=== PATIENT | male | born 1945 | race Caucasian/White ===

== ENCOUNTER 2016-07-18 01:15 | Inpatient (IN) | payer OTHER ==
[~2016-07-18] VITALS: Ht 175.3 cm; Wt 88.6 kg
[2016-07-18] VITALS (10 sets, daily range): BP systolic 89–123; BP diastolic 46–68; PULSE 70–85; TEMP 36.8–37.1; O2SAT 94–98; Ht 175.3 cm; Wt 88.6 kg
[~2016-07-18 01:15] MED LIST: ALBU1AER9 INH; FLR/1 PEG; FLUT1AER5 INH; IPRASOL4 INH; LEVO100T PEG; NUTR-25 PEG; SERT50TA PEG; WATER PEG
--- NOTE | 2016-07-18 01:39 | EMERGENCY ROOM VISIT NOTE ---
History Report prepared by Rubén: Alex Strong Under the Supervision of: Dr. Gabriella Weaver D.O. First contact with patient: 01:24 Chief Complaint: RESPIRATORY PROBLEMS Stated Complaint: CHILLS,ASTHMA History of Present Illness The patient is a 71 year old male who presents to the Emergency Room with complaints of worsening shortness of breath for the past week. The patient also has a worsening cough. The patient has also had chills and nausea all evening. The patient just finished a 10 day course of Bactrim BID and Prednisone yesterday. He was being treated for pneumonia and sepsis. The patient used his inhaler today which did not resolve his breathing difficulties. The patient is NPO and has a peg tube secondary to a history of tonsillar cancer. 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 The patient has sores in his mouth for which he uses magic swizzle. The patient also rinsed his mouth with half a shot of kimberlee to clear up mucous. He does not swallow the kimberlee. Source of History: patient, other (curriculum development specialist) Onset: one week Position: other (respiratory ) Quality: other (shortness of breath) Timing: worsening Associated Symptoms: + chills, + cough, + nausea Review of Systems See HPI for pertinent positives & negatives. A total of 10 systems reviewed and were otherwise negative. 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 Surgical Problems: (1) H/O esophagogastroduodenoscopy (2) S/P arthroscopic knee surgery (3) S/P colonoscopy (4) s/p modified radical neck dissection Family History Cancer Diabetes mellitus Heart disease Hypertension Lung disease Social History Smoking Status: Former Smoker Alcohol Use: none Drug Use: none Marital Status: Housing Status: lives with significant other Occupation Status: disabled Current/Historical Medications Scheduled Enteral Nutrition Formula (Boost Plus), 2 CAN PEG QID Fludrocortisone Acetate (Florinef), 0.1-0.2 MG PEG DAILY Levothyroxine Sodium (Synthroid), 100 MCG PEG QAM Sertraline (Zoloft), 50 MG PEG QAM [Water], 200 ML PEG QID Scheduled PRN Albuterol (Proair Hfa), 2 PUFFS INH Q4H PRN for Wheezing Fluticasone Propionate (Inhala (Flovent Diskus), 1 PUFFS INH BID PRN for SOB/ Wheezing Ipratropium-Albuterol (Duoneb), 1 TREATMENT INH QID PRN for SOB/Wheezing Allergies Coded Allergies: Nitrates, Organic (Verified Allergy, Unknown, DROP IN BP, 07/18/16) Terazosin (Verified Allergy, Unknown, 07/18/16) Physical Exam Vital Signs Date Time Temp Pulse Resp B/P Pulse Ox O2 Delivery O2 Flow Rate FiO2 07/18/16 03:05 90 16 131/73 94 Nasal Cannula 3.5 07/18/16 02:08 91 Nasal Cannula 3.5 07/18/16 02:00 93 24 186/90 84 Room Air 07/18/16 01:46 90 07/18/16 01:45 92 Room Air 07/18/16 01:32 90 Room Air 07/18/16 01:19 36.5 77 24 103/65 90 Room Air Physical Exam HEENT: Head - normocephalic and atraumatic Pupils are equal, round, and reactive to light. Extraocular eye muscles are intact, and sclera are anicteric. Nose - moist nasal mucosa without discharge. Mouth - moist buccal mucosa, thrush on palate. Oropharynx is nonerythematous and there is no tonsillar exudate or edema noted. Neck: Supple; no JVD, nuchal rigidity, cervical lymphadenopathy. Heart: Regular rate and rhythm. There is a normal S1 and S2 with no murmurs, clicks, or gallops appreciated. Lungs: Diminished breath sounds at both lung bases with rhonchi. Abdomen: Soft, completely nontender, nondistended, with good bowel sounds. There are no palpable pulsatile masses or hepatosplenomegaly. There is no guarding, rigidity, or rebound noted. Extremities: No evidence of cyanosis, clubbing, or edema. There are easily palpable peripheral pulses. Skin: warm and dry with good turgor and no rashes. Medical Decision & Procedures ER Provider Diagnostic Interpretation: X-ray results as stated below per interpretation by me. CHEST X-RAY: Bilateral hazy basilar infiltrates. Laboratory Results Test 07/18/16 01:30 07/18/16 01:37 07/18/16 01:46 07/18/16 02:00 Influenza Type A Antigen Neg for Influ A (NEG) Influenza Type B Antigen Neg for Influ B (NEG) Bedside Lactic Acid Venous 1.86 mmol/L (0.90-1.70) RDW Standard Deviation 49.2 fL (36.4-46.3) RDW Coefficient of Variation 14.1 % (11.5-14.5) White Blood Count 14.50 K/uL (4.8-10.8) Red Blood Count 4.84 M/uL (4.7-6.1) Hemoglobin 15.5 g/dL (14.0-18.0) Hematocrit 46.3 % (42-52) Mean Corpuscular Volume 95.7 fL (80-100) Mean Corpuscular Hemoglobin 32.0 pg (25-34) Mean Corpuscular Hemoglobin Concent 33.5 g/dl (32-36) Platelet Count 228 K/uL (130-400) Mean Platelet Volume 10.3 fL (7.4-10.4) Neutrophils (%) (Auto) 79.9 % Lymphocytes (%) (Auto) 12.3 % Monocytes (%) (Auto) 5.0 % Eosinophils (%) (Auto) 2.3 % Basophils (%) (Auto) 0.1 % Neutrophils # (Auto) 11.58 K/uL (1.4-6.5) Lymphocytes # (Auto) 1.78 K/uL (1.2-3.4) Monocytes # (Auto) 0.73 K/uL (0.11-0.59) Eosinophils # (Auto) 0.33 K/uL (0-0.5) Basophils # (Auto) 0.02 K/uL (0-0.2) Immature Granulocyte % (Auto) 0.4 % Immature Granulocyte # (Auto) 0.06 K/uL (0.00-0.02) Prothrombin Time 11.0 SECONDS (9.0-12.0) Prothromb Time International Ratio 1.0 (0.9-1.1) Activated Partial Thromboplast Time 23.1 SECONDS (21.0-31.0) Partial Thromboplastin Ratio 0.9 Est Creatinine Clear Calc Drug Dose 76.8 ml/min Magnesium Level 2.2 mg/dl (1.8-2.4) Total Bilirubin 0.2 mg/dl (0.2-1) Aspartate Amino Transf (AST/SGOT) 27 U/L (15-37) Alanine Aminotransferase (ALT/SGPT) 69 U/L (12-78) Alkaline Phosphatase 79 U/L (45-117) Total Protein 6.8 gm/dl (6.4-8.2) Albumin 3.1 gm/dl (3.4-5.0) Globulin 3.7 gm/dl (2.5-4.0) Albumin/Globulin Ratio 0.8 (0.9-2) Thyroid Stimulating Hormone (TSH) 0.738 uIu/ml (0.300-4.500) Urine Color YELLOW Urine Appearance CLOUDY (CLEAR) Urine pH 7.5 (4.5-7.5) Urine Specific [place] 1.008 (1.000-1.030) Urine Protein NEG (NEG) Urine Glucose (UA) NEG (NEG) Urine Ketones NEG (NEG) Urine Occult Blood NEG (NEG) Urine Nitrite NEG (NEG) Urine Bilirubin NEG (NEG) Urine Urobilinogen NEG (NEG) Urine Leukocyte Esterase NEG (NEG) Urine WBC (Auto) 1-5 /hpf (0-5) Urine RBC (Auto) 0-4 /hpf (0-4) Urine Hyaline Casts (Auto) 0 /lpf (0-5) Urine Epithelial Cells (Auto) 5-10 /lpf (0-5) Urine Bacteria (Auto) NEG (NEG) Laboratory results per my review. Medications Administered Medications (Trade) Dose Ordered Sig/John Route Start Time Stop Time Status Last Admin Dose Admin Ondansetron HCl (Zofran Inj) 4 mg NOW STAT IV 07/18/16 01:50 07/18/16 01:51 DC 07/18/16 01:54 4 MG Piperacillin Sod/ Tazobactam Sod (Zosyn Iv) 4.5 gm NOW STAT IV 07/18/16 03:00 07/18/16 03:01 DC 07/18/16 03:05 4.5 GM Albuterol/ Ipratropium (Duoneb) 3 ml NOW STAT INH 07/18/16 03:14 07/18/16 03:15 DC 07/18/16 03:15 3 ML Procedure Medications administered include Zofran IV, Zosyn IV. DuoNeb treatment ED Course 0125: Past medical records reviewed. The patient was evaluated in room A11b. A complete history and physical exam was performed. IV lock was established. A septic protocol was performed. The patient went for chest x-ray as described above. 0149: The patient started vomiting. 0150: Zofran 4 mg IV. 0300: Zosyn 4.5 gm IV. 0300: The patient was sound asleep and hemodynamically stable. 0305: Discussed the case with Morro Moore. The patient will be evaluated. Medical Decision The patient is a 71 year old male who presents to the ED with shortness of breath. Differential diagnosis includes pneumonia, bronchitis, failed outpatient therapy, influenza. Laboratory interpretation: White count 14.5, stable H&H, BUN 19, creatinine 1.0 , lactic acid 1.86, LFTs normal, Coags normal, urine is normal, negative influenza. This is a 71-year-old male patient who presents to the emergency department with a history of pneumonia and bronchitis. The patient recently finished a course of steroids and antibiotics. He developed increasing stress of breath. The patient's presentation was concerning for sepsis. He has had this before. The patient was noted to be hypoxic throughout his stay here in the emergency department. He was placed on supplemental oxygen. I believe the patient has failed outpatient therapy as he just finished a course of antibiotics and steroids. Consults Time Called: [phone] Consulting Physician: Morro Moore Returned Call: [phone]: Discussed the case with Morro Moore. The patient will be evaluated. Impression Primary Impression: Sepsis Additional Impressions: Bilateral pneumonia, Hypoxia, Thrush Scribe Attestation The scribe's documentation has been prepared under my direction and personally reviewed by me in its entirety. I confirm that the note above accurately reflects all work, treatment, procedures, and medical decision making performed by me. Departure Information Dispostion Being Evaluated By Hospitalist Referrals Sanjiv Hart III, M.D. (PCP) Patient Instructions A Signature Page, My [facility]
[2016-07-18] MEDS ORDERED: ONDANSETRON INJ 2 MG/ML 2 ML VIAL IV STA (01:50)
[2016-07-18 01:59] LABS: BASO % 0.1 %; BASO ABS # 0.02 K/uL (0-0.2); COMPLETE YES; EOS % 2.3 %; HEMATOCRIT 46.3 % (42-52); IG% 0.4 %; LYMPH % 12.3 %; LYMPH ABS # 1.78 K/uL (1.2-3.4); MEAN CELL VOLUME 95.7 fL (80-100); MEAN CORPUSCULAR HGB CONC 33.5 g/dl (32-36); MEAN PLATELET VOLUME 10.3 fL (7.4-10.4); NEUT % 79.9 %; PLATELET COUNT 228 K/uL (130-400); RED BLOOD COUNT 4.84 M/uL (4.7-6.1)
[2016-07-18 02:10] LABS: PARTIAL THROMBOPLASTIN RATIO 0.9
[2016-07-18 02:15] LABS: BUN/CREATININE RATIO 18.6 (10-20); CALCIUM 8.4 mg/dl (8.5-10.1); POTASSIUM 3.5 mmol/L (3.5-5.1)
[2016-07-18 02:18] LABS: ALB/GLOB RATIO 0.8 (0.9-2)
[2016-07-18 02:18] LABS: URINE APPEARANCE CLOUDY (CLEAR); URINE BILIRUBIN NEG (NEG); URINE COLOR YELLOW; URINE NITRITE NEG (NEG); URINE PH 7.5 (4.5-7.5); URINE SPECIFIC GRAVITY 1.008 (1.000-1.030); UROBILINOGEN NEG (NEG); ZZUR CULT IF INDIC CLEAN CATCH NO
[2016-07-18 02:19] LABS: MANUAL MICROSCOPIC REQUIRED? NO; REVIEW REQ? NO
[2016-07-18] MEDS ORDERED: PIPERACILLIN/TAZOBACTAM 4.5 GM/100ML D5W IV STA (03:00)
[2016-07-18] MEDS ORDERED: VANCOMYCIN INJ 0 MG in SODIUM CHLORIDE 0.9% 250ML 250 ML IV STA (03:12)
[2016-07-18] MEDS ORDERED: ALBUT/IPRATROP 3MG/0.5MG NEB 3 ML VIAL INH STA (03:14)
[2016-07-18 03:37] LABS: MAGNESIUM 2.2 mg/dl (1.8-2.4)
[2016-07-18] MEDS ORDERED: METHYLPREDNISOLONE IV 125 MG in SYRINGE 0 ML IV STA (03:54)
[2016-07-18 03:55] LABS: THYROID STIMULATING HORMONE 0.738 uIu/ml (0.300-4.500)
[2016-07-18] MEDS ORDERED: METHYLPREDNISOLONE 125 MG VIAL IV STA (03:56)
[2016-07-18] MEDS ORDERED: ONDANSETRON INJ 2 MG/ML 2 ML VIAL IV PRN (04:00)
[2016-07-18] MEDS ORDERED: MoRPHine SULFATE 4 MG/ML 1 ML CARP\\VIAL IV PRN (04:00)
[2016-07-18] MEDS ORDERED: LORAZEPAM 2 MG/ML 1 ML VIAL IV PRN (04:00)
[2016-07-18] MEDS ORDERED: KETOROLAC TROMETHAMINE 15 MG/ML VIAL IV. PRN (04:00)
[2016-07-18] MEDS ORDERED: ALBUT/IPRATROP 3MG/0.5MG NEB 3 ML VIAL INH PRN (04:00)
[2016-07-18] MEDS ORDERED: PIPERACILL/TAZOBAC CONSULT ACTIVE PRN (04:15)
[2016-07-18] MEDS ORDERED: OPTIRAY 320 IV PRN (04:15)
[2016-07-18 04:19] LABS: ALLEN TEST POS (POS); ARTERIAL BLD GAS O2 SATURATION 95.5 % (90-95); ARTERIAL BLOOD GAS BASE EXCESS 3.6 mEq/L (-9-1.8); ARTERIAL BLOOD GAS HCO3 27 mmol/L (19-24); ARTERIAL BLOOD GAS PO2 73 mm/Hg (80-95); ARTERIAL BLOOD GAS pH 7.48 (7.35-7.45); O2 ADMINISTRATION 3.5L
[2016-07-18] MEDS ORDERED: ACETAMINOPHEN SUSP 160 MG/5 ML UDC PO STA (04:41)
[2016-07-18] MEDS ORDERED: VANCOMYCIN CONSULT ACTIVE PRN ×2 (05:00→09:00)
--- NOTE | 2016-07-18 05:22 | HISTORY & PHYSICAL EXAMINATION ---
DATE OF ADMISSION: 07/18/2016 PRIMARY CARE DOCTOR: Sanjiv Hart MD History was obtained from patient, and records. Limited history obtained secondary to hearing impairment. CHIEF COMPLAINT: Worsening respiratory distress and cough. HISTORY OF PRESENT ILLNESS: Medical history is significant for tonsillar cancer status post chemoradiation/ neck dissection, COPD, past tobacco abuse; orthostatic hypotension on fludrocortisone, known aspiration risk sp PEG tube placement, gastroparesis, hx MRSA as per records. hypothyroidism. Recent confinement in last December 2015 for sepsis secondary to aspiration pneumonia. In the last 2 weeks, the patient has been dealing with bronchitis-like symptoms. Seen at PCP's office, prescribed Bactrim and prednisone course. Worsening symptoms, junky cough, shortness of breath despite medication intake. Recurrent, daily epistaxis episodes in more than a week. Seen at the ER last week. Nosebleed had stopped. No need for intervention. Discharged on Afrin nasal spray. Daily epistaxis episodes at home. Patient also complaining of tinnitus in both ears for weeks now. "hearing singing voices" PCP thought might be related to depression medication. Outpatient ENT referral contemplated next week for tinnitus. Patient brought to the Emergency because of worsening respiratory distress. O2 sats 84 on room air. He received Zosyn in the Emergency Room for pneumonia, sepsis. Patient's told nurse that the patient may be eating cookies w/ pink icing at home. As per , patient allowed to eat with care about 1% of the time. MEDICAL HISTORY: As above. SURGERIES: He has had neck surgery, knee surgery. HOME MEDICATIONS: Zoloft, ProAir, Boost, Florinef, Flovent, DuoNeb and Synthroid. ALLERGIES: NITRATES. FAMILY HISTORY: Could not be obtained. PERSONAL AND SOCIAL HISTORY: Past tobacco abuse. No chronic intake of alcoholic beverages REVIEW OF SYSTEMS: Could not be obtained. PHYSICAL EXAMINATION: VITAL SIGNS: Blood pressure was noted to be 186/90 later 131/70 pulse rate 90, RR 24, temperature 38.5, sats 84 on room air and later 90 on three liters. SKIN: Normal color. GENERAL: min respiratory distress, chronically ill HEENT: [place] palpable conjunctivae. Dry mucosa, Nasal cannula in place. Dried blood per nostril. Old lower lip asymmetry left. Ear exam; intact TM. NECK: No JVD. Supple. CHEST: Bilateral rhonchi at the bases. ABDOMEN: Soft, nontender. EXTREMITIES: No edema, no tenderness NEUROLOGIC: Marked hearing impairment; chronic L lower lip asymmetry. LABORATORIES: Hemoglobin was noted to be 15.5, hematocrit 46.3, white cells 14.5, platelets 228. Sodium 140, potassium 3.5, chloride 105, CO2 32, BUN 90, creatinine 1, glucose 109. Lactic acid was 1.8. Chest x-ray; streaky bibasilar infiltrates. EKG: Pending. ASSESSMENT: 1. Acute hypoxemic respiratory failure secondary to chronic obstructive pulmonary disease exacerbation secondary to poss bibasilar pneumonia failed outpatient treatment history of recurrent aspiration. (hx oropharygeal CA sp chemoradiation/neck surgery sp PEG tube placement) Hx MRSA. 2. sepsis 2 to above 3. Recurrent epistaxis with tinnitus symptoms hemodynamically stable rule out structural nasal/sinus pathology 4. past tobacco abuse 5. orthostatic hypotension on Florinef. PLAN: PCU supplemental O2 baseline ABG. Cultures. Vancomycin, Zosyn. de-escalate tx pending CS results availabilty nebs, steroids RTC. CT of sinuses, epistaxis May need inpatient ENT consultation pending CT results. DVT prophylaxis, SCDs RE epistaxis. Full code. MTDD
[2016-07-18] MEDS ORDERED: LACTATED RINGER'S 1000ML 1,000 ML IV ONE ×2 (05:30→07:45)
[2016-07-18] MEDS ORDERED: VANCOMYCIN INJ 2,200 MG in SODIUM CHLORIDE 0.9% 500ML 500 ML IV SCH (05:30)
[2016-07-18] MEDS ORDERED: LACTATED RINGER'S 1000ML 1,000 ML IV STA (05:44)
--- NOTE | 2016-07-18 05:47 | Progress Note ---
Progress Note Post Crystalloid Evaluation Date: Jul 18, 2016 Time: 03:40 Subjective sob Physical Exam Vital Signs: Vital Signs Date Time Temp Pulse Resp B/P Pulse Ox O2 Delivery O2 Flow Rate FiO2 07/18/16 05:12 86 07/18/16 05:00 27 102/50 95 Nasal Cannula 3.5 07/18/16 04:38 39.3 Lungs: + rhonchi Heart: regular rate, rhythm Peripheral Pulse: Weak Capillary Refill: Normal (less than 2 seconds) Skin: Pallor Assessment & Plan Presence of: Severe Sepsis Severe sepsis SIRS plus hypoxemia plus lactic acidosis 2 to bilateral pneumonia hx recurrent aspiration hx MRSA CS Vanco, Zosyn IVF, ff lactic acid
[2016-07-18] MEDS ORDERED: ACETAMINOPHEN IV 650 MG in EMPTY BAG 0 ML IV PRN (06:00)
[2016-07-18] MEDS ORDERED: TUBE FEEDING WATER FLUSH PEG SCH (07:00)
[2016-07-18] MEDS ORDERED: BOOST PLUS VANILLA PEG SCH ×2 (07:00)
--- NOTE | 2016-07-18 08:24 | DIAGNOSTIC IMAGING REPORT ---
CHEST ONE VIEW PORTABLE CLINICAL HISTORY: Sepsis, asthma, chills, cough, difficulty breathing COMPARISON STUDY: 07/10/2016 FINDINGS: The heart is normal in size. Since the prior study, the patient developed bibasal airspace opacities. Given the history, this may represent a multifocal pneumonitis. Clinical and imaging follow-up is recommended. There is no significant pleural fluid. IMPRESSION: Interval development of bibasilar airspace opacities, possibly representing a multifocal pneumonitis. Electronically signed by: Kieran Flores M.D. 07/18/2016 8:22 AM
--- NOTE | 2016-07-18 08:55 | DIAGNOSTIC IMAGING REPORT ---
CT SINUSES-MAXILLOFACIAL WITH CT DOSE: 679.20 mGy.cm CLINICAL HISTORY: Epistaxis. History of head and neck carcinoma. TECHNIQUE: The patient was scanned in a dynamic helical fashion during intravenous administration of 119 cc of Optiray 320. COMPARISON STUDY: CT scan the neck dated 09/07/2012 FINDINGS: No orbital masses are visualized. There is no hydrocephalus. Visualized portions intracranial contents reveal no enhancing masses. No parotid masses are visualized. There is no pathologic adenopathy. There is bilateral maxilla sinus mucosal thickening. There is minimal sphenoid sinus mucosal thickening. There is ethmoid sinus mucosal thickening. There is mild frontal sinus mucosal thickening. The right ostiomeatal unit is occluded by soft tissue. There is ostial narrowing of the left ostiomeatal unit. There are no bony destructive changes IMPRESSION: 1. Pansinus disease. 2. Obstruction of the right ostiomeatal unit ostial narrowing of the left ostiomeatal unit 3. No evidence of pathologic adenopathy 4. No bony destructive lesions identified Electronically signed by: Kieran Flores M.D. 07/18/2016 8:53 AM
[2016-07-18] MEDS: FLUDROCORTISONE ACETATE 0.1 MG TAB PEG SCH (08:58)
[2016-07-18] MEDS: PIPERACILL/TAZOBAC IV 3.375 GM in DEXTROSE 5% 100ML IV SCH ×3 (08:59→23:31)
[2016-07-18] MEDS: LEVOTHYROXINE 100 MCG TAB PEG SCH (08:59)
[2016-07-18] MEDS: METHYLPREDNISOLONE IV 40 MG in SYRINGE 0 ML IV SCH ×2 (08:59→22:09)
[2016-07-18] MEDS: SERTRALINE HCL 50 MG TAB PEG SCH (08:59)
[2016-07-18] MEDS ORDERED: FLUDROCORTISONE ACETATE 0.1 MG TAB PEG SCH (09:00)
--- NOTE | 2016-07-18 10:02 | Progress Note ---
Medicine Progress Note Date & Time of Visit: Jul 18, 2016 at 09:45. Subjective 71 yoM with bilateral pneumonia presents with sepsis and hypoxia -feels better overnight -still coughing and requiring O2 but breathing is improved. -+chills -denies nausea, abdominal pain, diarrhea, constipation - states he ate a cookie PO at home and she knew bc he vomiting pink cookie one time, however, he denies taking anything by mouth. Objective Last 8 Hrs Date Time Temp Pulse Resp B/P Pulse Ox O2 Delivery O2 Flow Rate FiO2 07/18/16 09:00 81 18 114/68 97 Room Air 07/18/16 07:47 36.5 81 18 103/62 97 Room Air 07/18/16 05:30 38.1 85 24 123/68 96 Room Air 07/18/16 05:30 85 24 123/68 94 Nasal Cannula 3.5 07/18/16 05:12 86 07/18/16 05:00 87 27 102/50 95 Nasal Cannula 3.5 07/18/16 04:38 39.3 92 27 125/76 94 Room Air 07/18/16 04:24 95 26 121/68 96 Nasal Cannula 3.5 07/18/16 03:05 90 16 131/73 94 Nasal Cannula 3.5 07/18/16 02:08 91 Nasal Cannula 3.5 07/18/16 02:00 93 24 186/90 84 Room Air 07/18/16 01:46 90 Physical Exam: GEN: frail thin, in no acute distress but ill-appearing, alert and appropriate HEENT: NC/AT, PERRL, normal sclerae, poor dentition CARDIO: reg rate, S1/2 heard without m/g/r LUNGS: coarse rhonchi in lower lung chow, good airflow throughout, no wheezes ABD: soft, non-tender, non-distended, no rebound or guarding, PEG in place and is c/d/i with no surrounding erythema present. EXTREMITY: RP and DP palpable 2+ bilat, no LE swelling or edema, extremities are warm and well-perfused NEURO: CN 2-12 gross intact, no gross focal deficits MUSC: no gross focal deficits, able to sit up in bed without assistance. SKIN: warm and dry Laboratory Results: Last 24 Hours Test 07/18/16 01:30 07/18/16 01:37 07/18/16 01:46 12/31/16 02:00 Influenza Type A Antigen Neg for Influ A Influenza Type B Antigen Neg for Influ B Bedside Lactic Acid Venous 1.86 mmol/L White Blood Count 14.50 K/uL Red Blood Count 4.84 M/uL Hemoglobin 15.5 g/dL Hematocrit 46.3 % Mean Corpuscular Volume 95.7 fL Mean Corpuscular Hemoglobin 32.0 pg Mean Corpuscular Hemoglobin Concent 33.5 g/dl Platelet Count 228 K/uL Mean Platelet Volume 10.3 fL Neutrophils (%) (Auto) 79.9 % Lymphocytes (%) (Auto) 12.3 % Monocytes (%) (Auto) 5.0 % Eosinophils (%) (Auto) 2.3 % Basophils (%) (Auto) 0.1 % Neutrophils # (Auto) 11.58 K/uL Lymphocytes # (Auto) 1.78 K/uL Monocytes # (Auto) 0.73 K/uL Eosinophils # (Auto) 0.33 K/uL Basophils # (Auto) 0.02 K/uL RDW Standard Deviation 49.2 fL RDW Coefficient of Variation 14.1 % Immature Granulocyte % (Auto) 0.4 % Immature Granulocyte # (Auto) 0.06 K/uL Prothrombin Time 11.0 SECONDS Prothromb Time International Ratio 1.0 Activated Partial Thromboplast Time 23.1 SECONDS Partial Thromboplastin Ratio 0.9 Sodium Level 143 mmol/L Potassium Level 3.5 mmol/L Chloride Level 105 mmol/L Carbon Dioxide Level 32 mmol/L Anion Gap 6.0 mmol/L Blood Urea Nitrogen 19 mg/dl Creatinine 1.00 mg/dl Est Creatinine Clear Calc Drug Dose 76.8 ml/min Estimated GFR () 88.6 Estimated GFR (Non- 76.5 BUN/Creatinine Ratio 18.6 Random Glucose 109 mg/dl Calcium Level 8.4 mg/dl Magnesium Level 2.2 mg/dl Total Bilirubin 0.2 mg/dl Aspartate Amino Transf (AST/SGOT) 27 U/L Alanine Aminotransferase (ALT/SGPT) 69 U/L Alkaline Phosphatase 79 U/L Total Protein 6.8 gm/dl Albumin 3.1 gm/dl Globulin 3.7 gm/dl Albumin/Globulin Ratio 0.8 Thyroid Stimulating Hormone (TSH) 0.738 uIu/ml Urine Color YELLOW Urine Appearance CLOUDY Urine pH 7.5 Urine Specific [place] 1.008 Urine Protein NEG Urine Glucose (UA) NEG Urine Ketones NEG Urine Occult Blood NEG Urine Nitrite NEG Urine Bilirubin NEG Urine Urobilinogen NEG Urine Leukocyte Esterase NEG Urine WBC (Auto) 1-5 /hpf Urine RBC (Auto) 0-4 /hpf Urine Hyaline Casts (Auto) 0 /lpf Urine Epithelial Cells (Auto) 5-10 /lpf Urine Bacteria (Auto) NEG Test 07/18/16 04:04 07/18/16 09:02 Arterial Blood pH 7.48 Arterial Blood Partial Pressure CO2 37 mmHg Arterial Blood Partial Pressure O2 73 mm/Hg Arterial Blood HCO3 27 mmol/L Arterial Blood Oxygen Saturation 95.5 % Arterial Blood Base Excess 3.6 mEq/L Arterial Blood Gas Delivery 3.5L [place] Test POS Lactic Acid Level 2.7 mmol/L Date/Time Source Procedure Growth Status 07/18/16 02:11 Blood Blood Culture Pending Received 07/18/16 01:46 Blood Blood Culture Pending Received Assessment & Plan 71 yoM with COPD who presents with SOB and coughing, found to have pneumonia, failed Bactrim/prednisone therapy as outpatient, high risk of aspiration s/p PEG , recent h/o aspiration pneumonia in December 2015, improved overnight with IVF resuscitation and abx, afebrile, cultures are pending. 1. Acute hypoxemia respiratory failure-2/2 bibasilar pneumonia, requiring nasal canula at 3L (only PRN at home), failed recent outpt therapy with Bactrim and prednisone. Septic on admission-resuscitated and improving on broad spectrum abx. Blood/sputum cultures pending. Trend lactate until <2. Cont IVF for now. 2. h/o epistaxis-will order O2 to be humidified. Supportive care as needed. 3. h/o MRSA in sputum January 2016-place on contact precautions. Repeat sputum culture now-pending. 4. h/o recurrent aspiration-keep HOB elevated >30 degrees, PEG tube in place, Boost supplementation has been ordered 5. h/o oropharyngeal cancer s/p chemoradiation/neck dissection 6. h/o smoking 7. Orthostatic hypotension-on fludrocortisone-no syncopal episodes per . 8. Depression/Anxiety-placed on sertraline 100mg--started hearing voices, reduced to 50mg and this stopped, but recently started again 3 weeks ago. Will hold on any changes for now, although may consider holding sertraline if this gets bad. Needs to recover from acute infection prior to making adjustments in order to have a reliable baseline. DVT prophy-SCDs RE: multiple recent episodes of epistaxis. Full code. Nutrition-Boost -8 cans daily per PEG Dispo- cont to monitor on telemetry; move out of ER once bed available in PCU Jimena Pimentel DO [facility] Hospitalist Current Inpatient Medications: Current Inpatient Medications Medications (Trade) Dose Ordered Sig/John Route Start Time Stop Time Status Last Admin Dose Admin Methylprednisolone Sodium Succinate/ Syringe (Solu-Medrol IV/ Syringe) 0.64 ml @ 1.5 mls/min Q8H IV 07/18/16 14:00 08/17/16 13:59 07/18/16 08:59 1.5 MLS/MIN Enteral Nutritional Formula (Boost Plus Vanilla) 2 can QID@0700,1100,1500,1900 PEG 07/18/16 07:00 08/17/16 06:59 Levothyroxine Sodium (Synthroid Tab) 100 mcg DAILYBB PEG 07/18/16 07:00 08/17/16 06:59 07/18/16 08:59 100 MCG Sertraline HCl (Zoloft Tab) 50 mg QAM PEG 07/18/16 09:00 08/17/16 08:59 07/18/16 08:59 50 MG Ondansetron HCl (Zofran Inj) 4 mg Q6H PRN IV 07/18/16 04:00 08/17/16 03:59 Lorazepam (Ativan Inj) 0.5 mg Q4H PRN IV 07/18/16 04:00 08/17/16 03:59 Ketorolac Tromethamine (Toradol Inj) 15 mg Q6H PRN IV. 07/18/16 04:00 07/23/16 03:59 Morphine Sulfate (MoRPHine SULFATE INJ) 4 mg Q3H PRN IV 07/18/16 04:00 08/01/16 03:59 Albuterol/ Ipratropium (Duoneb) 3 ml Q6R INH 07/18/16 09:00 08/17/16 08:59 Albuterol/ Ipratropium (Duoneb) 3 ml Q2H PRN INH 07/18/16 04:00 08/17/16 03:59 Ioversol (Optiray 320) 100 ml UD PRN IV 07/18/16 04:15 07/22/16 04:14 Vancomycin HCl (Consult) 1 ea DAILY PRN N/A 07/18/16 09:00 08/17/16 08:59 Fludrocortisone Acetate (Florinef Tab) 0.1 mg DAILY PEG 07/18/16 09:00 08/17/16 08:59 07/18/16 08:58 0.1 MG Piperacillin Sod/ Tazobactam Sod (Consult) 1 ea UD PRN N/A 07/18/16 04:15 08/17/16 04:14 Sterile Water 1 ea 1 ea QID@0700,1100,1500,1900 PEG 07/18/16 07:00 08/17/16 06:59 Piperacillin Sod/ Tazobactam Sod 3.375 gm/Dextrose 115 ml @ 28.75 mls/ hr Q8H IV 07/18/16 08:00 07/28/16 07:59 07/18/16 08:59 28.75 MLS/HR Lactated Ringer's 1,000 ml @ 100 mls/hr Q10H ONCE IV 07/18/16 07:45 07/18/16 17:44 Acetaminophen/ Empty Bag (Ofirmev IV/ Empty Iv Bag 100ml) 65 ml @ 260 mls/hr Q6H PRN IV 07/18/16 06:00 08/17/16 05:59
--- NOTE | 2016-07-18 12:48 | Pharmacy Progress Note ---
Pharmacy Antibiotic Consult Date of Service: Jul 18, 2016. Pharmacy Dosing Scope Pharmacy is consulted to initiate Vancomycin IV dosing therapy, order appropriate labs and adjust drug dose/frequency. Subjective The patient is a 71 year old male admitted on Jul 18, 2016 at 03:20 with sepsis. Objective Height (Feet): 5 Height (Inches): 9.00 Weight (Kilograms): 88.500 Lab Results (24hrs): Laboratory Tests Test 07/18/16 01:46 BUN/Creatinine Ratio 18.6 Blood Urea Nitrogen 19 mg/dl Creatinine 1.00 mg/dl White Blood Count 14.50 K/uL Red Blood Count 4.84 M/uL Hemoglobin 15.5 g/dL Hematocrit 46.3 % Mean Corpuscular Volume 95.7 fL Mean Corpuscular Hemoglobin 32.0 pg Mean Corpuscular Hemoglobin Concent 33.5 g/dl Platelet Count 228 K/uL Mean Platelet Volume 10.3 fL Neutrophils (%) (Auto) 79.9 % Lymphocytes (%) (Auto) 12.3 % Monocytes (%) (Auto) 5.0 % Eosinophils (%) (Auto) 2.3 % Basophils (%) (Auto) 0.1 % Neutrophils # (Auto) 11.58 K/uL Lymphocytes # (Auto) 1.78 K/uL Monocytes # (Auto) 0.73 K/uL Eosinophils # (Auto) 0.33 K/uL Basophils # (Auto) 0.02 K/uL Micro Results: Item Value Date Time Blood Culture Received 07/18/16 0211 Blood Pending Blood Culture Received 07/18/16 0146 Blood Pending Recent Pertinent Medications Item Value Date Time Piperacillin Sod/ 115 ml @ 28.75 mls/hr 07/18/16 0800 Tazobactam Sod Q8H/IV 07/18/16 0859 3.375 gm/Dextrose Assessment & Plan ASSESSMENT: * 71 yo M admitted with sepsis secondary to bilateral pneumonia initiated on Vancomycin and Zosyn IV * Per MD and medical records, patient has a history of MRSA in the sputum from January 16, 2016 * Blood cultures are currently pending PLAN * Loading dose: 2200 mg IV X 1 dose * Continue 1350 mg IV every 12 hours (but give first dose at 10 hours) * Goal trough level estimate: between 15 - 20 mcg/mL. (lung source) * A trough level has been ordered for: 07/20/16 @0330 prior to the 0400 dose. Pharmacy will continue to follow and will adjust dose/frequency as necessary. Thank you
[2016-07-18] MEDS: TUBE FEEDING WATER FLUSH PEG SCH ×3 (13:00→19:00)
[2016-07-18] MEDS: BOOST PLUS VANILLA PEG SCH ×6 (13:11→21:08)
[2016-07-18] MEDS: ALBUT/IPRATROP 3MG/0.5MG NEB 3 ML VIAL INH SCH ×2 (14:15→19:09)
[2016-07-18] MEDS ORDERED: NURSING VERBAL MED ORDER ONE (15:00)
[2016-07-18] MEDS ORDERED: SODIUM CHLORIDE 0.9% 500ML 500 ML IV ONE (15:15)
[2016-07-18] MEDS: VANCOMYCIN INJ 1,350 MG in SODIUM CHLORIDE 0.9% 250ML 250 ML IV SCH (17:32)
[2016-07-19] VITALS (12 sets, daily range): BP systolic 102–130; BP diastolic 54–69; PULSE 69–91; TEMP 36.4–37; O2SAT 95–99
[2016-07-19] MEDS: ALBUT/IPRATROP 3MG/0.5MG NEB 3 ML VIAL INH SCH ×4 (02:15→19:46)
[2016-07-19] MEDS: VANCOMYCIN INJ 1,350 MG in SODIUM CHLORIDE 0.9% 250ML 250 ML IV SCH ×2 (04:48→16:53)
[2016-07-19] MEDS: LEVOTHYROXINE 100 MCG TAB PEG SCH (06:12)
[2016-07-19] MEDS: METHYLPREDNISOLONE IV 40 MG in SYRINGE 0 ML IV SCH (06:19)
[2016-07-19] MEDS: TUBE FEEDING WATER FLUSH PEG SCH ×4 (06:19→19:24)
[2016-07-19 06:31] LABS: MEAN CORPUSCULAR HEMOGLOBIN 31.8 pg (25-34); MEAN CORPUSCULAR HGB CONC 33.4 g/dl (32-36); MEAN PLATELET VOLUME 10.6 fL (7.4-10.4); PLATELET COUNT 182 K/uL (130-400); WHITE BLOOD COUNT 29.86 K/uL (4.8-10.8)
[2016-07-19 06:56] LABS: BASO ABS # 0.01 K/uL (0-0.2); BUN/CREATININE RATIO 20.5 (10-20); CALCIUM 8.5 mg/dl (8.5-10.1); COMPLETE YES; CREATININE 1.1 mg/dl (0.60-1.40); IG% 0.6 %; LYMPH % 1.7 %; MONO % 2.6 %; NEUT % 95.1 %; POTASSIUM 3.7 mmol/L (3.5-5.1)
[2016-07-19] MEDS: BOOST PLUS VANILLA PEG SCH ×8 (08:14→22:51)
[2016-07-19] MEDS: SERTRALINE HCL 50 MG TAB PEG SCH (08:15)
[2016-07-19] MEDS: PIPERACILL/TAZOBAC IV 3.375 GM in DEXTROSE 5% 100ML IV SCH ×2 (08:15→16:53)
[2016-07-19] MEDS: FLUDROCORTISONE ACETATE 0.1 MG TAB PEG SCH (08:15)
--- NOTE | 2016-07-19 10:57 | Progress Note ---
Medicine Progress Note Date & Time of Visit: Jul 19, 2016 at 10:45. Subjective 71 yo M with h/o throat cancer and COPD presents with pneumonia -afebrile overnight -coughing and breathing improved and off oxygen -tolerating BOOST and free water flushes through PEG -no nausea - reports that he was on Nystatin swishes at home--thrush seen on exam -restarted that now. Objective Last 8 Hrs Date Time Temp Pulse Resp B/P Pulse Ox O2 Delivery O2 Flow Rate FiO2 07/19/16 07:40 36.9 69 18 111/61 96 Room Air 07/19/16 07:08 70 16 98 Room Air 07/19/16 04:00 36.4 75 111/56 97 Room Air 07/19/16 04:00 95 Room Air Physical Exam: GEN: frail thin, in no acute distress, not ill-appearing and noticeable off oxygen today, alert and appropriate HEENT: NC/AT, normal sclerae, poor dentition, thrush on tongue NECK: anatomical changes after prior neck dissection CARDIO: reg rate, S1/2 heard without m/g/r LUNGS: no increased work of breathing today, lungs are clear to auscultation, small area in LLL of minor rhonchi improved after cough, good airflow throughout , no wheezes ABD: soft, non-tender, non-distended, no rebound or guarding, PEG in place and is c/d/i with no surrounding erythema present. EXTREMITY: RP and DP palpable 2+ bilat, no LE swelling or edema, extremities are warm and well-perfused NEURO: CN 2-12 gross intact, no gross focal deficits MUSC: no gross focal deficits, able to sit up in bed without assistance. SKIN: warm and dry Laboratory Results: Last 24 Hours Test 07/18/16 12:35 07/18/16 12:44 07/18/16 15:30 07/19/16 05:22 Lactic Acid Level 4.9 mmol/L 4.0 mmol/L Bedside Glucose 192 mg/dl White Blood Count 29.86 K/uL Red Blood Count 4.00 M/uL Hemoglobin 12.7 g/dL Hematocrit 38.0 % Mean Corpuscular Volume 95.0 fL Mean Corpuscular Hemoglobin 31.8 pg Mean Corpuscular Hemoglobin Concent 33.4 g/dl Platelet Count 182 K/uL Mean Platelet Volume 10.6 fL Neutrophils (%) (Auto) 95.1 % Lymphocytes (%) (Auto) 1.7 % Monocytes (%) (Auto) 2.6 % Eosinophils (%) (Auto) 0.0 % Basophils (%) (Auto) 0.0 % Neutrophils # (Auto) 28.40 K/uL Lymphocytes # (Auto) 0.50 K/uL Monocytes # (Auto) 0.78 K/uL Eosinophils # (Auto) 0.00 K/uL Basophils # (Auto) 0.01 K/uL RDW Standard Deviation 49.6 fL RDW Coefficient of Variation 14.4 % Immature Granulocyte % (Auto) 0.6 % Immature Granulocyte # (Auto) 0.17 K/uL Sodium Level 143 mmol/L Potassium Level 3.7 mmol/L Chloride Level 108 mmol/L Carbon Dioxide Level 26 mmol/L Anion Gap 9.0 mmol/L Blood Urea Nitrogen 23 mg/dl Creatinine 1.10 mg/dl Est Creatinine Clear Calc Drug Dose 71.0 ml/min Estimated GFR () 79.0 Estimated GFR (Non- 68.1 BUN/Creatinine Ratio 20.5 Random Glucose 175 mg/dl Calcium Level 8.5 mg/dl 25-Hydroxy Vitamin D Total 28.6 ng/ml Date/Time Source Procedure Growth Status 07/18/16 19:10 Sputum Expectorated Sputum Gram Stain - Final Resulted 07/18/16 19:10 Sputum Expectorated Sputum Sputum Culture Pending Resulted Assessment & Plan 71 yoM with COPD who presents with SOB and coughing, found to have pneumonia, failed Bactrim/prednisone therapy as outpatient, high risk of aspiration s/p PEG , recent h/o aspiration pneumonia in December 2015, improved overnight with IVF resuscitation and abx, afebrile, cultures are pending. 1. Acute hypoxemia respiratory failure-2/2 bibasilar pneumonia vs COPD exacerbation, resolved, off oxygen, afebrile overnight, coughing present but improved, no wheezing on exam. Failed recent outpt therapy with Bactrim and prednisone. Septic on admission-resuscitated and improving on broad spectrum abx. Blood/sputum cultures reveal no growth. Lactate still elevated and WBC increased to 30K today on labs. IVF are off, cont free water flushes through PEG. Will switch IV Solumedrol IV to prednisone PEG for next 4 days. Will await sputum culture to return and MRSA swab to taper abx. Likely switch to PO tonight or tomorrow pending results. 2. Leukocytosis- with clinical improvement this is likely 2/2 steroid use in last 36 hours. CBC in am. 3. Oral thrush-Nystatin swish and spit TID 4. h/o epistaxis-no issues overnight and off oxygen 5. h/o MRSA in sputum January 2016-place on contact precautions. Repeat sputum culture now-pending (few GPCs in gram stain present) 6. h/o recurrent aspiration-keep HOB elevated >30 degrees, PEG tube in place, Boost supplementation has been tolerated well 7. h/o oropharyngeal cancer s/p chemoradiation/neck dissection 8. h/o smoking 9. Orthostatic hypotension-on fludrocortisone-no syncopal episodes per . 10. Depression/Anxiety-placed on sertraline 100mg--started hearing voices, reduced to 50mg and this stopped, but recently started again 3 weeks ago. Will hold on any changes for now, although may consider holding sertraline if this gets bad. Needs to recover from acute infection prior to making adjustments in order to have a reliable baseline. Cont Zoloft at 50mg PO daily. DVT prophy-SCDs RE: multiple recent episodes of epistaxis. Full code. Nutrition-Boost -8 cans daily per PEG Dispo- cont to monitor on telemetry Jimena Pimentel DO [facility] Hospitalist Current Inpatient Medications: Current Inpatient Medications Medications (Trade) Dose Ordered Sig/John Route Start Time Stop Time Status Last Admin Dose Admin Methylprednisolone Sodium Succinate/ Syringe (Solu-Medrol IV/ Syringe) 0.64 ml @ 1.5 mls/min Q8H IV 07/18/16 14:00 08/17/16 13:59 07/19/16 06:19 1.5 MLS/MIN Levothyroxine Sodium (Synthroid Tab) 100 mcg DAILYBB PEG 07/18/16 07:00 08/17/16 06:59 07/19/16 06:12 100 MCG Sertraline HCl (Zoloft Tab) 50 mg QAM PEG 07/18/16 09:00 08/17/16 08:59 07/19/16 08:15 50 MG Ondansetron HCl (Zofran Inj) 4 mg Q6H PRN IV 07/18/16 04:00 08/17/16 03:59 Lorazepam (Ativan Inj) 0.5 mg Q4H PRN IV 07/18/16 04:00 08/17/16 03:59 Ketorolac Tromethamine (Toradol Inj) 15 mg Q6H PRN IV. 07/18/16 04:00 07/23/16 03:59 Morphine Sulfate (MoRPHine SULFATE INJ) 4 mg Q3H PRN IV 07/18/16 04:00 08/01/16 03:59 Albuterol/ Ipratropium (Duoneb) 3 ml Q6R INH 07/18/16 09:00 08/17/16 08:59 07/19/16 07:08 3 ML Albuterol/ Ipratropium (Duoneb) 3 ml Q2H PRN INH 07/18/16 04:00 08/17/16 03:59 Ioversol (Optiray 320) 100 ml UD PRN IV 07/18/16 04:15 07/22/16 04:14 Vancomycin HCl (Consult) 1 ea DAILY PRN N/A 07/18/16 09:00 08/17/16 08:59 Fludrocortisone Acetate (Florinef Tab) 0.1 mg DAILY PEG 07/18/16 09:00 08/17/16 08:59 07/19/16 08:15 0.1 MG Piperacillin Sod/ Tazobactam Sod (Consult) 1 ea UD PRN N/A 07/18/16 04:15 08/17/16 04:14 Sterile Water 1 ea 1 ea QID@0700,1100,1500,1900 PEG 07/18/16 07:00 08/17/16 06:59 07/19/16 06:19 1 EA Piperacillin Sod/ Tazobactam Sod 3.375 gm/Dextrose 115 ml @ 28.75 mls/ hr Q8H IV 07/18/16 08:00 07/28/16 07:59 07/19/16 08:15 28.75 MLS/HR Acetaminophen/ Empty Bag (Ofirmev IV/ Empty Iv Bag 100ml) 65 ml @ 260 mls/hr Q6H PRN IV 07/18/16 06:00 08/17/16 05:59 Enteral Nutritional Formula 2 can 2 can QID PEG 07/18/16 13:00 08/17/16 12:59 07/19/16 08:14 2 CAN Vancomycin HCl/ Sodium Chloride (Vancomycin Inj/ Nss 250ml) 277 ml @ 125 mls/hr Q12H IV 07/18/16 16:00 07/28/16 15:59 07/19/16 04:48 125 MLS/HR
[2016-07-19] MEDS: NYSTATIN SUSP 500,000 U/5 ML UDC PO SCH ×3 (15:10→21:55)
[2016-07-19] MEDS ORDERED: NURSING VERBAL MED ORDER ONE ×2 (19:00→19:30)
[2016-07-19] MEDS: GUAIFENESIN 200 MG TAB PO SCH (21:44)
[2016-07-20] VITALS (11 sets, daily range): BP systolic 111–158; BP diastolic 66–85; PULSE 67–76; TEMP 36.3–37.3; O2SAT 96–99
[2016-07-20] MEDS: PIPERACILL/TAZOBAC IV 3.375 GM in DEXTROSE 5% 100ML IV SCH ×2 (00:19→08:08)
[2016-07-20] MEDS: ALBUT/IPRATROP 3MG/0.5MG NEB 3 ML VIAL INH SCH ×2 (01:36→07:29)
[2016-07-20] MEDS ORDERED: VANCOMYCIN TROUGH SCH (03:30)
[2016-07-20] MEDS: VANCOMYCIN INJ 1,350 MG in SODIUM CHLORIDE 0.9% 250ML 250 ML IV SCH (05:10)
[2016-07-20] MEDS: GUAIFENESIN 200 MG TAB PO SCH ×4 (05:12→13:35)
[2016-07-20] MEDS: LEVOTHYROXINE 100 MCG TAB PEG SCH (05:13)
[2016-07-20 05:16] LABS: BASO ABS # 0.01 K/uL (0-0.2); COMPLETE YES; HEMATOCRIT 36.6 % (42-52); IG% 0.2 %; LYMPH % 6.5 %; LYMPH ABS # 1.34 K/uL (1.2-3.4); MEAN CELL VOLUME 95.1 fL (80-100); MEAN CORPUSCULAR HEMOGLOBIN 31.7 pg (25-34); MEAN CORPUSCULAR HGB CONC 33.3 g/dl (32-36); MEAN PLATELET VOLUME 10.4 fL (7.4-10.4); MONO % 6.2 %; NEUT % 87.1 %; PLATELET COUNT 173 K/uL (130-400); RED BLOOD COUNT 3.85 M/uL (4.7-6.1); WHITE BLOOD COUNT 20.74 K/uL (4.8-10.8)
[2016-07-20 05:43] LABS: BUN/CREATININE RATIO 27.8 (10-20); CALCIUM 8.4 mg/dl (8.5-10.1); CREATININE 0.89 mg/dl (0.60-1.40); POTASSIUM 3.8 mmol/L (3.5-5.1)
[2016-07-20] MEDS: TUBE FEEDING WATER FLUSH PEG SCH ×2 (07:00→11:00)
[2016-07-20] MEDS: BOOST PLUS VANILLA PEG SCH ×4 (08:09→11:55)
[2016-07-20] MEDS: SERTRALINE HCL 50 MG TAB PEG SCH (08:13)
[2016-07-20] MEDS: FLUDROCORTISONE ACETATE 0.1 MG TAB PEG SCH (08:13)
[2016-07-20] MEDS: NYSTATIN SUSP 500,000 U/5 ML UDC PO SCH ×2 (08:14→13:36)
[2016-07-20] MEDS ORDERED: CLINDAMYCIN HCL 150 MG CAP PEG SCH (09:00)
[2016-07-20] MEDS ORDERED: NYSS/ PO (11:27)
[2016-07-20] MEDS ORDERED: PRD20 PEG (11:28)
[2016-07-20] MEDS ORDERED: CLIN300C10 PEG (11:28)
[2016-07-20] MEDS ORDERED: BCTRO NAE (11:28)
[2016-07-20] MEDS ORDERED: KFL500 PO (11:51)
[2016-07-20] MEDS ORDERED: DXY100 PO (11:51)
--- NOTE | 2016-07-20 11:55 | Pharmacy Progress Note ---
Pharmacy Antibiotic Prog Note Date of Service: Jul 20, 2016. Subjective: The patient is currently receiving VANCOMYCIN 1350mg IV every 12 hours. The patient is currently on day # 3 of VANCOMYCIN / ZOSYN IV therapy. Objective: Height (Feet): 5 Height (Inches): 9.00 Weight (Kilograms): 88.600 Levels: Item Value Date Time Vancomycin Level Trough 17.2 mcg/ml 07/20/16 0508 Lab Results (24hrs): Laboratory Tests Test 07/20/16 05:08 BUN/Creatinine Ratio 27.8 Blood Urea Nitrogen 25 mg/dl Creatinine 0.89 mg/dl White Blood Count 20.74 K/uL Red Blood Count 3.85 M/uL Hemoglobin 12.2 g/dL Hematocrit 36.6 % Mean Corpuscular Volume 95.1 fL Mean Corpuscular Hemoglobin 31.7 pg Mean Corpuscular Hemoglobin Concent 33.3 g/dl Platelet Count 173 K/uL Mean Platelet Volume 10.4 fL Neutrophils (%) (Auto) 87.1 % Lymphocytes (%) (Auto) 6.5 % Monocytes (%) (Auto) 6.2 % Eosinophils (%) (Auto) 0.0 % Basophils (%) (Auto) 0.0 % Neutrophils # (Auto) 18.04 K/uL Lymphocytes # (Auto) 1.34 K/uL Monocytes # (Auto) 1.29 K/uL Eosinophils # (Auto) 0.01 K/uL Basophils # (Auto) 0.01 K/uL Micro Results: * 07/18/16 -- Blood Cx x 2 -- NGTD x 2 * 07/18/16 -- Sputum Cx -- Staph sp * 07/19/16 -- Nasal swab -- (+) MRSA Recent Pertinent Medications: Item Value Date Time Clindamycin HCl 300 mg 07/20/16 0900 (Cleocin Cap) TID/PEG 07/20/16 0812 Vancomycin HCl 277 ml @ 125 mls/hr 07/18/16 1600 1350 mg/Sodium Q12H/IV 07/20/16 0510 Chloride Piperacillin Sod/ 115 ml @ 28.75 mls/hr 07/18/16 0800 Tazobactam Sod Q8H/IV 07/20/16 0808 3.375 gm/Dextrose Assessment & Plan: 71yo male receiving VANCOMYCIN / ZOSYN for sepsis secondary to b/l PNA. Renal function is stable. VANCOMYCIN: * Patient has been receiving VANCOMYCIN 1350mg IV q12h. * Trough level drawn prior to 0400 dose this am = 17.2 mcg/mL. * This drug level is Therapeutic. * Continue VANCOMYCIN 1350mg IV every 12 hours. * Goal trough level estimate: between 15 - 20 mcg/mL. * Per MD note, antibiotic de-escalation based on further sputum cx results. * If VANCOMYCIN is continued, will recheck a trough level in a few days or with any changes in renal function. Pharmacy will continue to follow and will adjust dose/frequency as necessary. Thank you
[2016-07-20] MEDS ORDERED: NURSING VERBAL MED ORDER ONE (12:00)
--- NOTE | 2016-07-20 12:03 | Discharge Instructions ---
Discharge Instructions Admission Reason for Admission: Respiratory Failure, [id number] Discharge Discharge Diagnosis / Problem: community-acquired MRSA pneumonia Discharge Goals Goal(s): Prevent Disease Progression Activity Recommendations Activity Limitations: resume your previous activity . Instructions / Follow-Up Instructions / Follow-Up Please take all medications as instructed. I recommend getting a follow-up chest xray in 4-6 weeks to ensure resolution of your pneumonia. This study can be ordered by your primary care physician (PCP) . You will need a follow-up appointment with your PCP within one week of discharge. As the office is closed today in observance of the holiday, someone from our staff will contact you to help coordinate this tomorrow. It was a pleasure taking care of you! Call if you have any questions or problems. You can reach a [facility] hospitalist on duty at [facility] 24 hours a day by calling [phone]. Take care of yourself. Jimena Pimentel, DO [facility] Hospitalist Current Hospital Diet Patient's current hospital diet: Discharge Diet Recommended Diet: N/A (PEG tube feedings) Procedures Procedures Performed: None. Pending Studies Studies pending at discharge: yes List of pending studies: Preliminary blood cultures are negative to date, but final results need to be followed up. Sputum results show MRSA+, with sensitivities pending. Medical Emergencies . Who to Call and When: Medical Emergencies: If at any time you feel your situation is an emergency, please call 911 immediately. . Non-Emergent Contact Non-Emergency issues call your: Primary Care Provider . . "Provider Documentation" section prepared by Jimena Pimentel. VTE Core Measure Inpt VTE Proph given/why not?: SCD's (h/o recent epistaxis)
[2016-07-20] MEDS ORDERED: DOXYCYCLINE HYCLATE 100 MG CAP PO SCH (12:30)
[2016-07-20] MEDS ORDERED: CEPHALEXIN MONOHYDRATE 500 MG CAP PO SCH (13:00)
--- NOTE | 2016-07-22 13:56 | Discharge Summary ---
Discharge Summary Admission Date: Jul 18, 2016 at 03:20 Discharge Date: Jul 20, 2016 Discharge Disposition: Home Principal Diagnosis: Community-acquired MRSA pneumonia Procedures: None. Vaccinations: None Consultations: None. Medication Reconciliation New Medications: Mupirocin (Mupirocin) 66 Appln/22 Gm Oint 1 APPLN JONN BID for 5 Days, #1 EA Cephalexin Monohydrate (Cephalexin) 500 Mg Cap 500 MG PO QID for 7 Days, #28 CAP Doxycycline Hyclate (Doxycycline Hyclate) 100 Mg Cap 100 MG PO BID for 7 Days, #14 CAP Prednisone (Prednisone) 20 Mg Tab 40 MG PEG DAILY for 3 Days, #6 TAB Continued Medications: Albuterol (Proair Hfa) Aers 2 PUFFS INH Q4H PRN for Wheezing Enteral Nutrition Formula (Boost Plus) 1 Can Liqd 2 CAN PEG QID Fludrocortisone Acetate (Florinef) 0.1 Mg Tab 0.1-0.2 MG PEG DAILY TAKE DIRECTED BY MD FOR HYPOTENSION. TAKES UP TO 3X A DAY NEED FOR INCREASING BP. 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 hypothyroidism. Recent confinement in last December 2015 for sepsis secondary to aspiration pneumonia. In the last 2 weeks, the patient has been dealing with bronchitis-like symptoms. Seen at PCP's office, prescribed Bactrim and prednisone course. Worsening symptoms, junky cough, shortness of breath despite medication intake. Recurrent, daily epistaxis episodes in more than a week. Seen at the ER last week. Nosebleed had stopped. No need for intervention. Discharged on Afrin nasal spray. Daily epistaxis episodes at home. Patient also complaining of tinnitus in both ears for weeks now. "hearing singing voices" PCP thought might be related to depression medication. Outpatient ENT referral contemplated next week for tinnitus. Patient brought to the Emergency because of worsening respiratory distress. O2 sats 84 on room air. He received Zosyn in the Emergency Room for pneumonia, sepsis. Patient's told nurse that the patient may be eating cookies w/ pink icing at home. As per , patient allowed to eat with care about 1% of the time. Physical Exam (per Admitting): PHYSICAL EXAMINATION: VITAL SIGNS: Blood pressure was noted to be 186/90 later 131/70 pulse rate 90, RR 24, temperature 38.5, sats 84 on room air and later 90 on three liters. SKIN: Normal color. GENERAL: min respiratory distress, chronically ill HEENT: [place] palpable conjunctivae. Dry mucosa, Nasal cannula in place. Dried blood per nostril. Old lower lip asymmetry left. Ear exam; intact TM. NECK: No JVD. Supple. CHEST: Bilateral rhonchi at the bases. ABDOMEN: Soft, nontender. EXTREMITIES: No edema, no tenderness NEUROLOGIC: Marked hearing impairment; chronic L lower lip asymmetry. Hospital Course 71 yoM with SOB 1 w week with worsening cough. In the ER vitals were 103/65, P 77 saturating 90% on room air with temp of 36.5C. Physical revealed diminished breath shounds at both lung bases with rhonchi. A CXR reveals bilateral basal infiltrates. Flu swab was negative. WBC was 14.5 and peaked at 30K several hours later and after steroid administration. In the ER he received Zosyn and a Duoneb treatment. He was placed on supplemental oxygen, and as he had failed outpatient therapy with a course of steroids and antibiotics, he was admitted to telemetry for further workup and treatment. The following morning he began to look and feel better. Oral thrush treatment was continued from home. He had some episodes of minor epistaxis that were controlled, however, as a result SCDs were used for DVT prophylaxis and supplemental oxygen was humidified. Vanc and Zosyn were continued for about 48 hours. Blood cultures returned negative, the patient was up and walking around the hallways, afebrile, with a resolving cough and overall feeling better. Sputum culture was positive for MRSA, same as prior admission 6 months ago, and at that time the MRSA was clinda resistant. Therefore, he was switched to oral doxy and keflex and sent home with oral prednisone. Close follow-up with PCP was scheduled. On HD3 he was considered stable for discharge as he had resolving symptoms, clear lungs to auscultation, no fever on PO antibiotics, and was off supplemental oxygen. Vitals were 125/70, P74, 36.8C R 18 and ocxygenating 97% on room air. Total time spent on discharge = 60 minutes This includes examination of the patient, discharge planning, medication reconciliation, and communication with other providers. Discharge Instructions Please take this sheet to every appointment for the next month Discharge Instructions Admission Reason for Admission: Respiratory Failure, [id number]-[id number] Discharge Discharge Diagnosis / Problem: community-acquired MRSA pneumonia Discharge Goals Goal(s): Prevent Disease Progression Activity Recommendations Activity Limitations: resume your previous activity . Instructions / Follow-Up Instructions / Follow-Up Please take all medications as instructed. I recommend getting a follow-up chest xray in 4-6 weeks to ensure resolution of your pneumonia. This study can be ordered by your primary care physician (PCP) . You will need a follow-up appointment with your PCP within one week of discharge. As the office is closed today in observance of the holiday, someone from our staff will contact you to help coordinate this tomorrow. It was a pleasure taking care of you! Call if you have any questions or problems. You can reach a [facility] hospitalist on duty at [facility] 24 hours a day by calling [phone]. Take care of yourself. Jimena Pimentel, [facility] Hospitalist Current Hospital Diet Patient's current hospital diet: Discharge Diet Recommended Diet: N/A (PEG tube feedings) Procedures Procedures Performed: None. Pending Studies Studies pending at discharge: yes List of pending studies: Preliminary blood cultures are negative to date, but final results need to be followed up. Sputum results show MRSA+, with sensitivities pending. Medical Emergencies . Who to Call and When: Medical Emergencies: If at any time you feel your situation is an emergency, please call 911 immediately. . Non-Emergent Contact Non-Emergency issues call your: Primary Care Provider . . "Provider Documentation" section prepared by Jimena Pimentel. VTE Core Measure Inpt VTE Proph given/why not?: SCD's (h/o recent epistaxis) <Electronically signed by Jimena Pimentel DO> Signed: 07/20/16 1203 Signed: The status of this report is Signed * If report status is Draft, the document has not been finalized by the responsible provider. Additional Copies To Sanjiv Hart III, M.D.
[2016-12-19] MEDS ORDERED: DXY100 PEG (13:38)
[2016-12-19] MEDS ORDERED: PRD20 PO (13:38)
[2016-12-19] MEDS ORDERED: LEVO-459 PEG (13:38)
[2016-12-19] MEDS ORDERED: LCTX PEG (13:38)
[2017-02-23] MEDS ORDERED: PRED10TA PO (10:39)
== END 2016-07-20 14:04 | disposition home or self-care (01) | DRG 871 ==
LOC: C.EDB 01:15 → C.EDINP 03:20 → C.2T 13:03
PROVIDERS: ADMIT Internal Medicine; ATTEND Hospitalist
DX: A41.9 Sepsis, unspecified organism (principal); J18.9 Pneumonia, unspecified organism; J96.01 Acute respiratory failure with hypoxia; B37.0 Candidal stomatitis; R44.0 Auditory hallucinations; T43.225A Adverse effect of selective serotonin reuptake inhibitors, initial encounter; R65.20 Severe sepsis without septic shock; R04.0 Epistaxis; H93.19 Tinnitus, unspecified ear; J44.9 Chronic obstructive pulmonary disease, unspecified; K31.84 Gastroparesis; E03.9 Hypothyroidism, unspecified; I95.1 Orthostatic hypotension; H91.90 Unspecified hearing loss, unspecified ear; F32.9 Major depressive disorder, single episode, unspecified; F41.9 Anxiety disorder, unspecified; Z86.14 Personal history of Methicillin resistant Staphylococcus aureus infection; Z93.1 Gastrostomy status; Z87.891 Personal history of nicotine dependence; Z79.899 Other long term (current) drug therapy; Z79.51 Long term (current) use of inhaled steroids; Z85.818 Personal history of malignant neoplasm of other sites of lip, oral cavity, and pharynx; Z92.21 Personal history of antineoplastic chemotherapy; Z92.3 Personal history of irradiation; Z87.01 Personal history of pneumonia (recurrent)

== ENCOUNTER 2016-12-03 07:39 | Emergency (ER) | payer OTHER ==
[~2016-12-03] VITALS: Ht 180.3 cm; Wt 86.8 kg
[~2016-12-03 07:39] MED LIST changes: +BCTRO NAE; +DXY100 PO; +KFL500 PO; +NYSS/ PO; +PRD20 PEG
[2016-12-03 07:40] VITALS: TEMP 36.5; Ht 180.3 cm; Wt 86.8 kg
[2016-12-03] MEDS ORDERED: METHYLPREDNISOLONE 125 MG VIAL IV STA (07:51)
[2016-12-03] MEDS ORDERED: ALBUT/IPRATROP 3MG/0.5MG NEB 3 ML VIAL INH STA (07:51)
[2016-12-03] MEDS ORDERED: VNTHFA/IN INH (08:00)
[2016-12-03 08:07] LABS: BASO % 0.4 %; BASO ABS # 0.03 K/uL (0-0.2); COMPLETE YES; EOS % 7.4 %; HEMATOCRIT 45.3 % (42-52); IG% 0.2 %; LYMPH % 10.5 %; LYMPH ABS # 0.89 K/uL (1.2-3.4); MEAN CELL VOLUME 97.2 fL (80-100); MEAN CORPUSCULAR HEMOGLOBIN 33.3 pg (25-34); MEAN CORPUSCULAR HGB CONC 34.2 g/dl (32-36); MEAN PLATELET VOLUME 10.8 fL (7.4-10.4); MONO % 5.4 %; NEUT % 76.1 %; PLATELET COUNT 174 K/uL (130-400); RED BLOOD COUNT 4.66 M/uL (4.7-6.1)
--- NOTE | 2016-12-03 08:11 | EMERGENCY ROOM VISIT NOTE ---
History Report prepared by Rubén: Alex Ramirez Under the Supervision of: Dr. Mary Garcia M.D. First contact with patient: 07:48 Chief Complaint: RESPIRATORY PROBLEMS Stated Complaint: COUGHING, WHEEZING, POSSIBLE PNEUMONIA History of Present Illness The patient is a 71 year old male who presents to the Emergency Room with complaints of a persistent cough and wheezing that began two days prior to arrival. 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 Per the patient's his treatment for his tonsil cancer is deteriorating the patient' s throat and making is difficult for him to speak and swallow. He was also diagnosed with a bilateral pneumonia in July of this year. The patient monitors his oxygen saturations at home and claims that his levels were low this morning. He has not history of blood clots. 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 A total of 10 systems reviewed and were otherwise negative. 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 Surgical Problems: (1) H/O esophagogastroduodenoscopy (2) S/P arthroscopic knee surgery (3) S/P colonoscopy (4) s/p modified radical neck dissection Family History Cancer Diabetes mellitus Heart disease Hypertension Lung disease Social History Smoking Status: Former Smoker Alcohol Use: none Drug Use: none Marital Status: Housing Status: lives with significant other Occupation Status: disabled Current/Historical Medications Scheduled Albuterol Hfa (Ventolin Hfa), 2 PUFF INH Q4 Enteral Nutrition Formula (Boost Plus), 2 CAN PEG QID Fludrocortisone Acetate (Florinef), 0.1-0.2 MG PEG DAILY Levothyroxine Sodium (Synthroid), 100 MCG PEG QAM Prednisone (Prednisone), 10 MG PO DIRECTED Sertraline (Zoloft), 50 MG PEG QAM [Water], 200 ML PEG QID Scheduled PRN Fluticasone Propionate (Inhala (Flovent Diskus), 1 PUFFS INH BID PRN for SOB/ Wheezing Ipratropium-Albuterol (Duoneb), 1 TREATMENT INH QID PRN for SOB/Wheezing Allergies Coded Allergies: Nitrates, Organic (Verified Allergy, Unknown, DROP IN BP, 12/03/16) Terazosin (Verified Allergy, Unknown, 12/03/16) Physical Exam Vital Signs Date Time Temp Pulse Resp B/P Pulse Ox O2 Delivery O2 Flow Rate FiO2 12/03/16 10:29 79 127/67 99 12/03/16 10:09 70 18 95 12/03/16 10:00 127/67 12/03/16 09:39 68 19 92 12/03/16 09:31 102/56 12/03/16 09:09 68 19 93 12/03/16 09:01 104/58 12/03/16 08:39 69 21 93 12/03/16 08:30 124/71 12/03/16 08:09 71 17 99 12/03/16 08:01 117/64 12/03/16 07:57 74 12/03/16 07:50 97 Room Air 12/03/16 07:50 119/72 12/03/16 07:40 36.5 76 20 106/63 93 Room Air Physical Exam Vital signs reviewed. General: Well-appearing male, in no significant distress. HEENT: No scleral icterus, PERRLA, neck supple. Atraumatic. There are post surgical changes to the right side of the neck with speech impairment. Cardiovascular: Regular rate and rhythm, no extra sounds. Pulmonary: Clear to auscultation bilaterally, normal work of breathing. Dry cough on exam. Abdomen: Soft, nontender, nondistended, positive bowel sounds. Musculoskeletal: Atraumatic, minimal peripheral edema. Neurologic: Patient awake alert and oriented x 3, full strength in all 4 extremities. Cranial nerves 2 through 12 grossly intact. Skin: Warm, dry, no rash Medical Decision & Procedures ER Provider Diagnostic Interpretation: Radiology results as stated below per my review and radiologist interpretation: CHEST 2 VIEWS ROUTINE CLINICAL HISTORY: Cough, wheezing, shortness of breath. COMPARISON STUDY: 07/18/2016 FINDINGS: The cardiac and mediastinal contours are normal. There is no evidence of focal pulmonary consolidation. There is no evidence of failure. No pleural effusions are visualized.[ There has been interval resolution of the previous identified bibasal airspace opacities IMPRESSION: No active disease in the chest. Electronically signed by: Kieran Flores M.D. 12/03/2016 8:46 AM Dictated Date/Time: 12/03/2016 8:46 AM Laboratory Results 12/03/16 07:52 Red Blood Count 4.66, Mean Corpuscular Volume 97.2, Mean Corpuscular Hemoglobin 33.3, Mean Corpuscular Hemoglobin Concent 34.2, Mean Platelet Volume 10.8, Neutrophils (%) (Auto) 76.1, Lymphocytes (%) (Auto) 10.5, Monocytes (%) (Auto) 5.4, Eosinophils (%) (Auto) 7.4, Basophils (%) (Auto) 0.4, Neutrophils # (Auto) 6.47, Lymphocytes # (Auto) 0.89, Monocytes # (Auto) 0.46, Eosinophils # (Auto) 0.63, Basophils # (Auto) 0.03 12/03/16 07:52 Test 12/03/16 07:52 12/03/16 07:59 White Blood Count 8.50 K/uL (4.8-10.8) Red Blood Count 4.66 M/uL (4.7-6.1) Hemoglobin 15.5 g/dL (14.0-18.0) Hematocrit 45.3 % (42-52) Mean Corpuscular Volume 97.2 fL (80-100) Mean Corpuscular Hemoglobin 33.3 pg (25-34) Mean Corpuscular Hemoglobin Concent 34.2 g/dl (32-36) Platelet Count 174 K/uL (130-400) Mean Platelet Volume 10.8 fL (7.4-10.4) Neutrophils (%) (Auto) 76.1 % Lymphocytes (%) (Auto) 10.5 % Monocytes (%) (Auto) 5.4 % Eosinophils (%) (Auto) 7.4 % Basophils (%) (Auto) 0.4 % Neutrophils # (Auto) 6.47 K/uL (1.4-6.5) Lymphocytes # (Auto) 0.89 K/uL (1.2-3.4) Monocytes # (Auto) 0.46 K/uL (0.11-0.59) Eosinophils # (Auto) 0.63 K/uL (0-0.5) Basophils # (Auto) 0.03 K/uL (0-0.2) RDW Standard Deviation 47.3 fL (36.4-46.3) RDW Coefficient of Variation 13.4 % (11.5-14.5) Immature Granulocyte % (Auto) 0.2 % Immature Granulocyte # (Auto) 0.02 K/uL (0.00-0.02) Prothrombin Time 11.2 SECONDS (9.0-12.0) Prothromb Time International Ratio 1.0 (0.9-1.1) Activated Partial Thromboplast Time 29.4 SECONDS (21.0-31.0) Partial Thromboplastin Ratio 1.1 Anion Gap 7.0 mmol/L (3-11) Est Creatinine Clear Calc Drug Dose 78.1 ml/min Estimated GFR () 94.3 Estimated GFR (Non- 81.3 BUN/Creatinine Ratio 22.2 (10-20) Calcium Level 8.8 mg/dl (8.5-10.1) Magnesium Level 2.5 mg/dl (1.8-2.4) Total Bilirubin 0.6 mg/dl (0.2-1) Direct Bilirubin < 0.1 mg/dl (0-0.2) Aspartate Amino Transf (AST/SGOT) 17 U/L (15-37) Alanine Aminotransferase (ALT/SGPT) 26 U/L (12-78) Alkaline Phosphatase 90 U/L (45-117) Total Protein 7.3 gm/dl (6.4-8.2) Albumin 3.4 gm/dl (3.4-5.0) Bedside Troponin I 0.010 ng/ml (0-0.045) Laboratory results per my review. Medications Administered Medications (Trade) Dose Ordered Sig/John Route Start Time Stop Time Status Last Admin Dose Admin Albuterol/ Ipratropium (Duoneb) 3 ml NOW STAT INH 12/03/16 07:51 12/03/16 07:54 DC 12/03/16 08:03 3 ML Methylprednisolone Sodium Succinate (Solu-Medrol IV) 125 mg NOW STAT IV 12/03/16 07:51 12/03/16 07:54 DC 12/03/16 08:03 125 MG ECG Indication: SOB/dyspnea Rate (beats per minute): 67 Rhythm: normal sinus Findings: no ectopy, other (LAD) ED Course 0750: Past medical records reviewed. The patient was evaluated in room B6. A complete history and physical examination was performed. 0751: Ordered Solu-Medrol 125 mg IV, Duoneb 3 mL INH. 1019: Upon reevaluation, the patient appeared to have improvement of his symptoms. I discussed findings with the patient and his . He verbalized agreement of the treatment plan. The patient was discharged home. Medical Decision The patient's history was concerning for respiratory difficulties. Differential diagnosis: Etiologies such as infections, reactive airway disease, pneumonia, pneumothorax , COPD, CHF, cardiac ischemia, pulmonary embolism, musculoskeletal, gastrointestinal, as well as others were entertained. This patient was evaluated and appeared to be in no significant distress. Patient is resting comfortably on room air. He does have a dry cough. The patient is status post significant right neck surgery secondary to thyroid cancer. He has a history of smoking remotely. Patient was given a DuoNeb treatment and IV Solu-Medrol with relief of his cough and shortness of breath. Patient was discharged and asked to use his DuoNeb treatments every 4 hours as needed, given a prednisone taper. He'll follow-up with his physician this week for reevaluation. He will return to the ER for worsening of symptoms or any medical concerns. Impression Primary Impression: COPD exacerbation Scribe Attestation The scribe's documentation has been prepared under my direction and personally reviewed by me in its entirety. I confirm that the note above accurately reflects all work, treatment, procedures, and medical decision making performed by me. Departure Information Dispostion Home / Self-Care Prescriptions Prednisone (Prednisone) 10 Mg Tab 10 MG PO DIRECTED, #31 TAB 40 mg daily for 4 days, 30 mg daily for 3 days, 20 mg daily for 2 days, 10 mg daily for 2 days. Prov: Mary Garcia M.D. 12/03/16 Referrals Sanjiv Hart III, M.D. (PCP) Forms HOME CARE DOCUMENTATION FORM, IMPORTANT VISIT INFORMATION, WORK / SCHOOL INSTRUCTIONS Patient Instructions My [facility] Additional Instructions Diagnosis: COPD exacerbation Prednisone 40 mg daily for 4 more days, 30 mg daily for 3 days, 20 mg daily for 2 days, 10 mg daily for 2 days. DuoNeb treatment every 4 hours as needed for cough or wheezing. Follow-up with your physician this week for reevaluation. Return to the ER for worsening of symptoms or any medical concerns.
[2016-12-03 08:23] LABS: PARTIAL THROMBOPLASTIN RATIO 1.1; PROTHROMBIN TIME (PATIENT) 11.2 SECONDS (9.0-12.0)
[2016-12-03 08:24] LABS: ALT/SGPT 26 U/L (12-78); BLOOD UREA NITROGEN 21 mg/dl (7-18); BUN/CREATININE RATIO 22.2 (10-20); CARBON DIOXIDE 29 mmol/L (21-32); CHLORIDE 108 mmol/L (98-107); CREATININE 0.95 mg/dl (0.60-1.40); GLUCOSE 138 mg/dl (70-99); MAGNESIUM 2.5 mg/dl (1.8-2.4); POTASSIUM 3.6 mmol/L (3.5-5.1); SODIUM 144 mmol/L (136-145)
[2016-12-03 08:27] LABS: ALKALINE PHOSPHATASE 90 U/L (45-117); AST/SGOT 17 U/L (15-37)
[2016-12-03 08:42] LABS: CALCIUM 8.8 mg/dl (8.5-10.1)
--- NOTE | 2016-12-03 08:47 | DIAGNOSTIC IMAGING REPORT ---
CHEST 2 VIEWS ROUTINE CLINICAL HISTORY: Cough, wheezing, shortness of breath. COMPARISON STUDY: 07/18/2016 FINDINGS: The cardiac and mediastinal contours are normal. There is no evidence of focal pulmonary consolidation. There is no evidence of failure. No pleural effusions are visualized.[ There has been interval resolution of the previous identified bibasal airspace opacities IMPRESSION: No active disease in the chest. Electronically signed by: Kieran Flores M.D. 12/03/2016 8:46 AM Dictated Date/Time: 12/03/2016 8:46 AM
[2016-12-03] MEDS ORDERED: PRED10TA PO (10:11)
[2016-12-03 10:29] VITALS: BP 127/67; PULSE 79; O2SAT 99
[2016-12-19] MEDS ORDERED: LCTX PEG (13:38)
[2016-12-19] MEDS ORDERED: PRD20 PO (13:38)
[2016-12-19] MEDS ORDERED: LEVO-459 PEG (13:38)
[2016-12-19] MEDS ORDERED: DXY100 PEG (13:38)
[2017-02-23] MEDS ORDERED: PRED10TA PO (10:39)
[2017-04-23] MEDS ORDERED: TMF75 PO (12:57)
[2017-05-20] MEDS ORDERED: FLUD0.1T PEG (09:34)
[2017-05-20] MEDS ORDERED: LORA-741 PEG (09:34)
[2017-05-20] MEDS ORDERED: CLX20 PO (09:34)
[2017-06-14] MEDS ORDERED: CEFU1TAB35 PEG (10:40)
[2017-06-14] MEDS ORDERED: DOXY100C76 PEG (10:40)
== END 2016-12-03 10:31 | disposition home or self-care (01) ==
LOC: C.EDB 07:40
DX: J44.1 Chronic obstructive pulmonary disease with (acute) exacerbation (principal); E78.5 Hyperlipidemia, unspecified; J45.909 Unspecified asthma, uncomplicated; K21.9 Gastro-esophageal reflux disease without esophagitis; F32.9 Major depressive disorder, single episode, unspecified; K31.84 Gastroparesis; G89.29 Other chronic pain; Z85.850 Personal history of malignant neoplasm of thyroid; Z98.890 Other specified postprocedural states; Z87.891 Personal history of nicotine dependence; Z79.899 Other long term (current) drug therapy; Z88.8 Allergy status to other drugs, medicaments and biological substances; Z80.9 Family history of malignant neoplasm, unspecified; Z83.3 Family history of diabetes mellitus; Z82.49 Family history of ischemic heart disease and other diseases of the circulatory system

== ENCOUNTER 2016-12-17 03:56 | Inpatient (IN) | payer OTHER ==
[~2016-12-17] VITALS: Ht 180.3 cm; Wt 87.7 kg
[2016-12-17] VITALS (8 sets, daily range): BP systolic 95–115; BP diastolic 48–61; PULSE 64–78; TEMP 36.5–36.9; O2SAT 97–99; Ht 180.3 cm; Wt 87.7 kg
[~2016-12-17 03:56] MED LIST changes: -ALBU1AER9 INH; -BCTRO NAE; -DXY100 PO; -KFL500 PO; -NYSS/ PO; -PRD20 PEG; +PRED10TA PO; +VNTHFA/IN INH
[2016-12-17] MEDS ORDERED: METHYLPREDNISOLONE 125 MG VIAL IV STA (04:05)
[2016-12-17] MEDS ORDERED: SODIUM CHLORIDE 0.9% 1000ML 1,000 ML IV STA ×2 (04:05→06:14)
[2016-12-17] MEDS ORDERED: SODIUM CHLORIDE 0.9% 500ML 500 ML IV STA ×2 (04:05→04:36)
[2016-12-17] MEDS ORDERED: ALBUT/IPRATROP 3MG/0.5MG NEB 3 ML VIAL INH STA (04:05)
[2016-12-17] MEDS ORDERED: PIPERACILLIN/TAZOBACTAM 4.5 GM/100ML D5W IV STA (04:36)
[2016-12-17] MEDS ORDERED: LEVAQUIN 750MG / 150ML D5W IV STA (04:38)
[2016-12-17 04:41] LABS: HEMATOCRIT 41.4 % (42-52); MEAN CELL VOLUME 95.2 fL (80-100); MEAN CORPUSCULAR HEMOGLOBIN 31.5 pg (25-34); MEAN CORPUSCULAR HGB CONC 33.1 g/dl (32-36); MEAN PLATELET VOLUME 10.6 fL (7.4-10.4); PLATELET COUNT 193 K/uL (130-400); RED BLOOD COUNT 4.35 M/uL (4.7-6.1); WHITE BLOOD COUNT 18.55 K/uL (4.8-10.8)
--- NOTE | 2016-12-17 04:45 | EMERGENCY ROOM VISIT NOTE ---
ED Visit Note First contact with patient: 04:02 Patient with a history of COPD and pneumonia with recent admission. Patient reportedly has been on Zithromax up until 3 days prior according to his . Patient reportedly short of breath cough fever at home. I agree with the physician assistants workup. Patient has pneumonia and will be treated for Sirs however is not in septic shock at 4:45 AM 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 Surgical Problems: (1) H/O esophagogastroduodenoscopy Status: Resolved (2) S/P arthroscopic knee surgery Status: Resolved (3) S/P colonoscopy Status: Resolved (4) s/p modified radical neck dissection Permanent Comment: 2007 [facility] tonsillar Ca Status: Resolved Current/Historical Medications Scheduled Albuterol Hfa (Ventolin Hfa), 2 PUFF INH Q4 Enteral Nutrition Formula (Boost Plus), 2 CAN PEG QID Fludrocortisone Acetate (Florinef), 0.1-0.2 MG PEG DAILY Levothyroxine Sodium (Synthroid), 100 MCG PEG QAM Prednisone (Prednisone), 10 MG PO DIRECTED Sertraline (Zoloft), 50 MG PEG QAM [Water], 200 ML PEG QID Scheduled PRN Fluticasone Propionate (Inhala (Flovent Diskus), 1 PUFFS INH BID PRN for SOB/ Wheezing Ipratropium-Albuterol (Duoneb), 1 TREATMENT INH QID PRN for SOB/Wheezing Allergies Coded Allergies: Nitrates, Organic (Verified Allergy, Unknown, DROP IN BP, 12/03/16) Terazosin (Verified Allergy, Unknown, 12/03/16) Vital Signs Date Time Temp Pulse Resp B/P (MAP) Pulse Ox O2 Delivery O2 Flow Rate FiO2 12/17/16 04:43 68 12/17/16 03:59 36.9 82 18 84/56 92 Room Air Laboratory Results 12/17/16 04:20 Red Blood Count 4.35, Mean Corpuscular Volume 95.2, Mean Corpuscular Hemoglobin 31.5, Mean Corpuscular Hemoglobin Concent 33.1, Mean Platelet Volume 10.6 Test 12/17/16 04:20 12/17/16 04:27 White Blood Count 18.55 K/uL (4.8-10.8) Red Blood Count 4.35 M/uL (4.7-6.1) Hemoglobin 13.7 g/dL (14.0-18.0) Hematocrit 41.4 % (42-52) Mean Corpuscular Volume 95.2 fL (80-100) Mean Corpuscular Hemoglobin 31.5 pg (25-34) Mean Corpuscular Hemoglobin Concent 33.1 g/dl (32-36) Platelet Count 193 K/uL (130-400) Mean Platelet Volume 10.6 fL (7.4-10.4) RDW Standard Deviation 47.0 fL (36.4-46.3) RDW Coefficient of Variation 13.5 % (11.5-14.5) Bedside Troponin I 0.000 ng/ml (0-0.045) Medications Administered Medications (Trade) Dose Ordered Sig/John Route Start Time Stop Time Status Last Admin Dose Admin Albuterol/ Ipratropium (Duoneb) 3 ml NOW STAT INH 12/17/16 04:05 12/17/16 04:08 DC 12/17/16 04:31 3 ML Methylprednisolone Sodium Succinate (Solu-Medrol IV) 125 mg NOW STAT IV 12/17/16 04:05 12/17/16 04:08 DC 12/17/16 04:34 125 MG Sodium Chloride 500 ml @ 999 mls/hr Q31M STAT IV 12/17/16 04:05 12/17/16 04:35 DC 12/17/16 04:35 999 MLS/HR Sodium Chloride 1,000 ml @ 125 mls/hr Q8H STAT IV 12/17/16 04:05 12/17/16 12:04 12/17/16 04:35 125 MLS/HR Departure Information Referrals Sanjiv Hart III, M.D. (PCP) Patient Instructions My [facility]
[2016-12-17 04:53] LABS: INR 1.1 (0.9-1.1); PROTHROMBIN TIME (PATIENT) 11.4 SECONDS (9.0-12.0)
[2016-12-17] MEDS ORDERED: SODIUM CHLORIDE 0.9% IV STA (04:54)
[2016-12-17] MEDS ORDERED: VANCOMYCIN IV STA (04:54)
[2016-12-17 05:01] LABS: ALT/SGPT 50 U/L (12-78); AST/SGOT 15 U/L (15-37); BLOOD UREA NITROGEN 33 mg/dl (7-18); BUN/CREATININE RATIO 29.8 (10-20); CALCIUM 8.4 mg/dl (8.5-10.1); CARBON DIOXIDE 28 mmol/L (21-32); CHLORIDE 107 mmol/L (98-107); GLUCOSE 139 mg/dl (70-99); MAGNESIUM 2.3 mg/dl (1.8-2.4); POTASSIUM 3.2 mmol/L (3.5-5.1); SODIUM 143 mmol/L (136-145)
[2016-12-17 05:02] LABS: BASO % 0.1 %; BASO ABS # 0.01 K/uL (0-0.2); COMPLETE YES; EOS % 0.1 %; IG% 0.3 %; LYMPH % 5.8 %; LYMPH ABS # 1.07 K/uL (1.2-3.4); MONO % 5.1 %; NEUT % 88.6 %
[2016-12-17] MEDS ORDERED: POTASSIUM CHLORIDE 10 MEQ TABCR PO STA ×2 (05:05→05:29)
[2016-12-17 05:06] LABS: ALB/GLOB RATIO 0.9 (0.9-2); ALKALINE PHOSPHATASE 68 U/L (45-117)
--- NOTE | 2016-12-17 05:10 | EMERGENCY ROOM VISIT NOTE ---
History First contact with patient: 04:02 Chief Complaint: ILLNESS Stated Complaint: FEVER, COUGH History of Present Illness The patient is a 71 year old male who presents to the Emergency Room with complaints of cough, congestion, chest pain, dyspnea, fever and chills for the past 2 weeks that is steadily getting worse. Patient states he went to the family care doctor yesterday for his illness. Patient was told that his blood pressure was low. He is currently on a prednisone taper. Patient has COPD. No history of heart attack or stroke or CHF. Patient had a history of tonsillar carcinoma 10 years ago and has been cancer free. He still has his PEG tube. Patient denies neck stiffness, abdominal pain, current chest pain, leg pain or swelling. He is tolerating by mouth fluids but has a lack of appetite. Review of Systems See HPI for pertinent positives & negatives. A total of 10 systems reviewed and were otherwise negative. 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 Surgical Problems: (1) H/O esophagogastroduodenoscopy (2) S/P arthroscopic knee surgery (3) S/P colonoscopy (4) s/p modified radical neck dissection Family History Cancer Diabetes mellitus Heart disease Hypertension Lung disease Social History Smoking Status: Never Smoker Alcohol Use: none Drug Use: none Marital Status: Housing Status: lives with significant other Occupation Status: disabled Current/Historical Medications Scheduled Albuterol Hfa (Ventolin Hfa), 2 PUFF INH Q4 Enteral Nutrition Formula (Boost Plus), 2 CAN PEG QID Fludrocortisone Acetate (Florinef), 0.1-0.2 MG PEG DAILY Levothyroxine Sodium (Synthroid), 100 MCG PEG QAM Prednisone (Prednisone), 10 MG PO DIRECTED Sertraline (Zoloft), 50 MG PEG QAM [Water], 200 ML PEG QID Scheduled PRN Fluticasone Propionate (Inhala (Flovent Diskus), 1 PUFFS INH BID PRN for SOB/ Wheezing Ipratropium-Albuterol (Duoneb), 1 TREATMENT INH QID PRN for SOB/Wheezing Allergies Coded Allergies: Nitrates, Organic (Verified Allergy, Unknown, DROP IN BP, 12/03/16) Terazosin (Verified Allergy, Unknown, 12/03/16) Physical Exam Vital Signs Date Time Temp Pulse Resp B/P (MAP) Pulse Ox O2 Delivery O2 Flow Rate FiO2 12/17/16 04:47 37.7 68 26 91/50 94 Nasal Cannula 2.0 12/17/16 04:43 68 12/17/16 04:40 88 Room Air 12/17/16 03:59 36.9 82 18 84/56 92 Room Air Physical Exam VITALS: Vitals are noted on the nurse's note and reviewed by myself. Vital signs up with intensive. GENERAL: Pleasant male, mildly ill-appearing following commands SKIN: The skin was without rashes, erythema, edema, or bruising. There is no tenting of the skin. Capillary reflex less than 2 seconds. HEAD: Normocephalic atraumatic. EARS: External auditory canals clear, tympanic membranes pearly ferguson without erythema or effusion bilaterally. EYES: Pupils equal round and reactive to light and accommodation. Conjunctivae without injection, sclerae without icterus. Extraocular movements intact. NOSE: Patent, turbinates without inflammation or discharge. No sinus tenderness. MOUTH: Mucous membranes mild dry. Pharynx without erythema or exudate. Uvula midline. Airway patent. Tongue does not deviate. NECK: Supple without nuchal rigidity. No lymphadenopathy. No thyromegaly. Cervical spine is nontender. No JVD. HEART: Regular rate and rhythm LUNGS: Diffuse end expiratory wheezes, bibasilar rales No dullness to percussion. No retractions or accessory muscle use. ABDOMEN: Positive bowel sounds x 4. Normal tympanic percussion. Soft, nontender, without masses or organomegaly. Reilly sign negative. No guarding or rebound tenderness. MUSCULOSKELETAL: No muscle atrophy, erythema, or edema noted. NEURO: Patient was alert and oriented to person place and time. Normal sensation to light and sharp touch. No focal neurological deficits. Medical Decision & Procedures Laboratory Results 12/17/16 04:20 Red Blood Count 4.35, Mean Corpuscular Volume 95.2, Mean Corpuscular Hemoglobin 31.5, Mean Corpuscular Hemoglobin Concent 33.1, Mean Platelet Volume 10.6, Neutrophils (%) (Auto) 88.6, Lymphocytes (%) (Auto) 5.8, Monocytes (%) (Auto) 5.1, Eosinophils (%) (Auto) 0.1, Basophils (%) (Auto) 0.1, Neutrophils # (Auto) 16.46, Lymphocytes # (Auto) 1.07, Monocytes # (Auto) 0.94, Eosinophils # (Auto) 0.01, Basophils # (Auto) 0.01 12/17/16 04:20 Test 12/17/16 04:20 12/17/16 04:27 12/17/16 04:54 White Blood Count 18.55 K/uL (4.8-10.8) Red Blood Count 4.35 M/uL (4.7-6.1) Hemoglobin 13.7 g/dL (14.0-18.0) Hematocrit 41.4 % (42-52) Mean Corpuscular Volume 95.2 fL (80-100) Mean Corpuscular Hemoglobin 31.5 pg (25-34) Mean Corpuscular Hemoglobin Concent 33.1 g/dl (32-36) Platelet Count 193 K/uL (130-400) Mean Platelet Volume 10.6 fL (7.4-10.4) Neutrophils (%) (Auto) 88.6 % Lymphocytes (%) (Auto) 5.8 % Monocytes (%) (Auto) 5.1 % Eosinophils (%) (Auto) 0.1 % Basophils (%) (Auto) 0.1 % Neutrophils # (Auto) 16.46 K/uL (1.4-6.5) Lymphocytes # (Auto) 1.07 K/uL (1.2-3.4) Monocytes # (Auto) 0.94 K/uL (0.11-0.59) Eosinophils # (Auto) 0.01 K/uL (0-0.5) Basophils # (Auto) 0.01 K/uL (0-0.2) RDW Standard Deviation 47.0 fL (36.4-46.3) RDW Coefficient of Variation 13.5 % (11.5-14.5) Immature Granulocyte % (Auto) 0.3 % Immature Granulocyte # (Auto) 0.06 K/uL (0.00-0.02) Prothrombin Time 11.4 SECONDS (9.0-12.0) Prothromb Time International Ratio 1.1 (0.9-1.1) Activated Partial Thromboplast Time 26.3 SECONDS (21.0-31.0) Partial Thromboplastin Ratio 1.0 Anion Gap 8.0 mmol/L (3-11) Est Creatinine Clear Calc Drug Dose 67.5 ml/min Estimated GFR () 79.0 Estimated GFR (Non- 68.1 BUN/Creatinine Ratio 29.8 (10-20) Calcium Level 8.4 mg/dl (8.5-10.1) Magnesium Level 2.3 mg/dl (1.8-2.4) Total Bilirubin 0.8 mg/dl (0.2-1) Aspartate Amino Transf (AST/SGOT) 15 U/L (15-37) Alanine Aminotransferase (ALT/SGPT) 50 U/L (12-78) Alkaline Phosphatase 68 U/L (45-117) Total Protein 6.4 gm/dl (6.4-8.2) Albumin 3.1 gm/dl (3.4-5.0) Globulin 3.3 gm/dl (2.5-4.0) Albumin/Globulin Ratio 0.9 (0.9-2) Bedside Troponin I 0.000 ng/ml (0-0.045) Medications Administered Medications (Trade) Dose Ordered Sig/John Route Start Time Stop Time Status Last Admin Dose Admin Albuterol/ Ipratropium (Duoneb) 3 ml NOW STAT INH 12/17/16 04:05 12/17/16 04:08 DC 12/17/16 04:31 3 ML Methylprednisolone Sodium Succinate (Solu-Medrol IV) 125 mg NOW STAT IV 12/17/16 04:05 12/17/16 04:08 DC 12/17/16 04:34 125 MG Sodium Chloride 500 ml @ 999 mls/hr Q31M STAT IV 12/17/16 04:05 12/17/16 04:35 DC 12/17/16 04:35 999 MLS/HR Sodium Chloride 1,000 ml @ 125 mls/hr Q8H STAT IV 12/17/16 04:05 12/17/16 12:04 12/17/16 04:35 125 MLS/HR Sodium Chloride 500 ml @ 999 mls/hr Q31M STAT IV 12/17/16 04:36 12/17/16 05:06 DC 12/17/16 04:59 999 MLS/HR ED Course Prior records/ancillary studies reviewed. Triage Nursing notes reviewed. Additional history obtained from the family. The patient's history was concerning for respiratory difficulties. Differential diagnosis: Etiologies such as infections, reactive airway disease, pneumonia, pneumothorax , COPD, CHF, cardiac ischemia, pulmonary embolism, musculoskeletal, gastrointestinal, as well as others were entertained. Physical examination: As above. ER treatment provided: Nebulizer, steroids, IV fluids, Zosyn, Levaquin On reassessment the patient felt better. Diagnostic interpretation by me: The electrocardiogram was normal sinus, normal intervals, left axis deviation, no acute ST-T wave changes. Impression normal sinus rhythm with a left axis deviation interpreted by myself. The labs revealed leukocytosis, negative troponin, hypokalemia and this is replaced orally Blood cultures are pending, elevated lactic acid Imaging studies: Chest x-ray with left lower lobe consolidation concerning for pneumonia, no free air or pneumothorax per my interpretation. Consultation: A consultation was placed with Dr. Clayton, hospitalist. The case was discussed and diagnostics were reviewed. The patient was evaluated in the ER for further treatment. This appears to be consistent with bony was sepsis. Patient was hypotensive and had pneumonia on x-ray. He was given broad spectrum antibiotics and hydrated as above. Patient has a history of aspiration pneumonia and MRSA. He was reassessed and improved. Patient agrees to treatment plan of admission. By the evaluation outlined above emergent etiologies such as CHF, cardiac ischemia, pulmonary embolism, pneumothorax, musculoskeletal, as well as others were deemed relatively unlikely. The pt informed about the findings as listed above. All questions were answered and pleased with the treatment. Case reviewed with my attending. Medical Decision As above Impression Primary Impression: Sepsis Additional Impressions: Pneumonia COPD exacerbation Departure Information Dispostion Being Evaluated By Hospitalist Condition FAIR Referrals Sanjiv Hart III, M.D. (PCP) Patient Instructions My [facility] Problem Qualifiers Primary Impression: Sepsis Sepsis type: sepsis due to unspecified organism Qualified Codes: A41.9 - Sepsis, unspecified organism Additional Impressions: Pneumonia Pneumonia type: due to unspecified organism Laterality: left Lung location : lower lobe of lung Qualified Codes: J18.1 - Lobar pneumonia, unspecified organism
[2016-12-17] MEDS ORDERED: ANORA ELLIPTA INH (05:16)
[2016-12-17] MEDS ORDERED: LEVAQUIN 750MG / 150ML D5W ONE (05:18)
[2016-12-17] MEDS ORDERED: PRED20TA PO (05:28)
[2016-12-17 05:41] LABS: ALLEN TEST POS (POS); ARTERIAL BLD GAS O2 SATURATION 94.5 % (90-95); ARTERIAL BLOOD GAS BASE EXCESS 1.9 mEq/L (-9-1.8); ARTERIAL BLOOD GAS HCO3 25 mmol/L (19-24); ARTERIAL BLOOD GAS PO2 70 mm/Hg (80-95); ARTERIAL BLOOD GAS pH 7.47 (7.35-7.45); O2 ADMINISTRATION 2L
[2016-12-17] MEDS ORDERED: ACETAMINOPHEN 325 MG TAB PO STA (06:00)
[2016-12-17] MEDS ORDERED: ACETAMINOPHEN 325 MG TAB PO PRN (06:00)
[2016-12-17] MEDS ORDERED: POTASSIUM CHLORIDE 20 MEQ/15 ML UDC PO STA (06:09)
[2016-12-17] MEDS ORDERED: HYDROmorphone INJ 1 MG/ML SYR IV PRN (06:15)
[2016-12-17] MEDS ORDERED: KETOROLAC TROMETHAMINE 15 MG/ML VIAL IV. PRN (06:15)
[2016-12-17] MEDS ORDERED: ACETAMINOPHEN SOLN 650MG/20.3 ML UDC PEG PRN (06:15)
[2016-12-17] MEDS ORDERED: ALBUT/IPRATROP 3MG/0.5MG NEB 3 ML VIAL INH PRN (06:15)
--- NOTE | 2016-12-17 06:15 | Progress Note ---
Progress Note Post Crystalloid Evaluation Date: Dec 17, 2016 Time: 06:10 Subjective junky cough unable to expectorate transient L cp sob Physical Exam Vital Signs: Vital Signs Date Time Temp Pulse Resp B/P (MAP) Pulse Ox O2 Delivery O2 Flow Rate FiO2 12/17/16 06:00 74 26 89/52 96 Nasal Cannula 2.0 12/17/16 04:47 37.7 Lungs: + decreased breath sounds Heart: regular rate, rhythm Peripheral Pulse: Weak Capillary Refill: Delayed (2 seconds or longer) Skin: [place] Assessment & Plan Presence of: Severe Sepsis Severe sepsis SIRS plus lactic acidosis/hypoxemia 2 to CAP, L failed outpatient treatment w/ Zpack history of MRSA history of aspiration risk supplemental O2 CS, Vancomycin, Zosyn, nebs, prednisone course IVF, ff lactic acid
[2016-12-17] MEDS ORDERED: FLUDROCORTISONE ACETATE 0.1 MG TAB PEG ONE (07:00)
[2016-12-17] MEDS ORDERED: ACETAMINOPHEN SOLN 650MG/20.3 ML UDC PEG ONE (07:00)
[2016-12-17] MEDS ORDERED: PIPERACILL/TAZOBAC IV 3.375 GM in DEXTROSE 5% 100ML IV ONE (07:00)
[2016-12-17] MEDS ORDERED: SODIUM CHLOR 0.45% + 20MEQ KCL 1,000 ML IV ONE (07:00)
[2016-12-17] MEDS ORDERED: PIPERACILL/TAZOBAC CONSULT ACTIVE PRN (07:00)
[2016-12-17] MEDS: IPRATROPIUM BROMIDE NEB SOLN 0.02% 2.5 ML VIAL INH SCH ×3 (07:55→19:16)
[2016-12-17] MEDS: LEVALBUTEROL 1.25MG/0.5ML NEB INH SCH ×3 (07:56→19:16)
[2016-12-17] MEDS: DOCUSATE SODIUM 100 MG/10 ML UDC PEG SCH (07:59)
[2016-12-17] MEDS: LEVOTHYROXINE 100 MCG TAB PEG SCH (07:59)
--- NOTE | 2016-12-17 08:00 | DIAGNOSTIC IMAGING REPORT ---
SINGLE VIEW CHEST CLINICAL HISTORY: Sepsis. FINDINGS: An AP, portable, upright chest radiograph is compared to study dated 12/03/2016. Correlation is made with chest CT dated 01/15/2016. The examination is degraded by portable technique and patient rotation. The cardiac silhouette is top normal for projection. There is mild atherosclerotic calcification of the thoracic aorta. Chronic interstitial thickening and biapical scarring are again noted. There is patchy airspace consolidation at the left lung base. The right lung appears clear. No large pleural effusion or pneumothorax is seen. The skeletal structures are osteopenic. The bony thorax is grossly intact. IMPRESSION: There is developing airspace consolidation at the left lung base. This could represent atelectasis, pneumonia, and/or aspiration pneumonitis. Clinical correlation will be required and radiographic follow-up to resolution is recommended. Electronically signed by: Landen Hopkins M.D. 12/17/2016 7:58 AM Dictated Date/Time: 12/17/2016 7:56 AM
--- NOTE | 2016-12-17 08:00 | HISTORY & PHYSICAL EXAMINATION ---
DATE OF ADMISSION: 12/17/2016 PATIENT'S PRIMARY CARE DOCTOR: Dr. Hart. CHIEF COMPLAINT: Shortness of breath. HISTORY OF PRESENT ILLNESS: History obtained from patient, . and records. Limited history obtained from px secondary to hearing impairment. Medical history significant for tonsillar cancer sp surgery post chemoradiation, COPD, past tobacco abuse, hypertension, known aspiration risk status post PEG tube placement, gastroparesis, history of MRSA. Recent confinement June 2016 for MRSA pneumonia. Patient discharged on Cephalexin and Doxycycline. As per patient's the last week the patient noted fever, junky cough, unable to expectorate. No witnessed aspiration events, although the patient's admits that patient that the patient sometimes still eats and drinks. Seen at PCP's office a few days ago. Impression was COPD exacerbation, prescribed prednisone and azithromycin. Transient improvement of symptoms. Px later noted worsening cough sx w. son. Left-sided chest pain nonpleuritic. Constipated. No abdominal pain. Px also complaining of bilateral leg pain. MEDICAL HISTORY: As above. SURGERIES: He has had head and neck reconstruction, knee surgery, lymphadenectomy, back surgery, dental surgery. HOME MEDICATIONS: Include Ventolin, Florinef, Flovent, DuoNeb, Synthroid, Zoloft, water. ALLERGIES: TERAZOSIN, NITRATES, ORGANIC. FAMILY HISTORY: Could not be obtained. . REVIEW OF SYSTEMS: Could not be reliably obtained. PHYSICAL EXAMINATION: VITAL SIGNS: Blood pressure was noted to be 91/50 later SBP 110s. Pulse rate 82, RR 26, temperature 38.7, 88 RA later 96 on 2 liters. GENERAL: Noted to be hard of hearing, min respiratory distress. SKIN: Normal color. HEAD, EYES, EARS, NOSE, AND THROAT: [place] palp conjunctivae, dry mucosa. old lp asymmetry. NECK: Short. LUNGS: Wheeze on the left. HEART: Regular rate and rhythm. ABDOMEN: Some distension. PEG tube noted. EXTREMITIES: No edema, no tenderness. NEUROLOGIC: hearing impairment. Old facial asymmetry. LABORATORY DATA: Hemoglobin 13.7, white cells 18, platelets 193. Sodium 140, K 3.3 chloride 107, CO2 28, BUN 33, creatinine 1.1, lactic acid was 2.2. ABG pH 7.47, pCO2 36, pO2 70, 94 on 2 liters. Chest x-ray as per interpretation, infiltrate on the left. EKG as per my interpretation : normal sinus rhythm, LAD, LAFB, no ischemia. ASSESSMENT AND PLAN: 1. Acute hypoxemic secondary to chronic obstructive pulmonary disease exacerbation secondary to CAP, left history of MRSA history of aspiration risk sp PEG tube failed outpatient treatment w/ Zpack 2. severe sepsis SIRS plus lactic acidosis/hypoxemia 2 to above 3. past tobacco abuse 4. history of orthostatic hypotension on fludrocortisone 5. tonsillar cancer status post surgery/chemoradiation, 6. hypothyroidism, euthyroid as of today's TSH 7. LE pain poss 2 to hypokalemia ro DVT 8. constipation PCU supplemental O2 CS, Vancomycin, Zosyn, nebs, prednisone course Pulmonary consult RE resp failure IVF, ff lactic acid facilitate fludrocortisone replace K LE extremity Dopplers ro DVT laxative DVT prophylaxis. Lovenox subQ. T FULL CODE PER , Miss Letty Canseco. She requests updates from providers at [phone]. YANELID
[2016-12-17] MEDS: ENOXAPARIN 40 MG/0.4 ML SYR SC SCH (08:02)
[2016-12-17] MEDS: BOOST PLUS VANILLA PEG SCH ×8 (08:16→21:52)
[2016-12-17] MEDS ORDERED: SERTRALINE HCL 50 MG TAB PEG SCH (09:00)
[2016-12-17] MEDS ORDERED: LEVALBUTEROL/IPRATROPIUM NEB INH SCH (09:00)
[2016-12-17] MEDS ORDERED: VANCOMYCIN CONSULT ACTIVE PRN (09:00)
[2016-12-17] MEDS ORDERED: SODIUM CHLORIDE 0.9% IV ONE (10:00)
[2016-12-17] MEDS ORDERED: VANCOMYCIN IV ONE (10:00)
--- NOTE | 2016-12-17 10:08 | Pulmonary Consultation ---
History General Date of Service: Dec 17, 2016. Stated Complaint: Respiratory Failure, Acute HPI The patient is a 71 year old male who presents to [facility] with complaints of Respiratory Failure, Acute. The patient's primary care provider is Sanjiv Hart III, M.D.. History obtained from patient's . Has about 30 pack years of smoking and quit 32 years ago. 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 Had tonsillar ca 10 years ago, s/o radical neck dissection and peg tube placement after that Does not eat or drink anything by mouth His weight has been stable. 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 Was in the emergency room about a week ago, with c/o " feeling sic" was d/c'd home on steroids and abx but yesterday started to have fever with chills and came back to ER No recent travel says he is normally very active , mows atleast 8 poeple yard, denies any shortness of breath Patient was admitted at this hospital even in 08/04 with similar complaints and was treated for MRSA pneumonia at that time Uses anoro once a day and proventil as needed Historian: spouse Onset: last week Severity: moderate Complaint Status: persistent Modifying Factors: none Review of Systems Constitutional: reports: no symptoms, as stated in HPI, chills, diaphoresis, fever, malaise, weakness, weight gain, weight loss, other Eyes: denies: no symptoms, as stated in HPI, eye pain, tearing, itching, redness, discharge, double vision, visual changes, blurred vision, photophobia, other ENT: denies: no symptoms, as stated in HPI, ear pain, ear discharge, loss of hearing, tinnitus, nasal pain, nasal congestion, rhinorrhea, epistaxis, sore throat, stridor, throat swelling, mouth pain, mouth swelling, dental pain, gum swelling, other Cardiovascular: denies: no symptoms, as stated in HPI, chest pain, chest pressure, chest tightness, diaphoresis, edema, intermittent claudication, orthopnea, palpitations, syncope, other Respiratory: reports: no symptoms, as stated in HPI, cough, orthopnea, shortness of breath, stridor, wheezing, sputum production, cyanosis, RAMOS, PND, hemoptysis, other Gastrointestinal: denies: no symptoms, as stated in HPI, abdominal pain, constipation, diarrhea, nausea, vomiting, hematemesis, hematochezia, hemorrhoids , anorexia, appetite changes, stool changes, flatulence, belching, food intolerance, jaundice, other Genitourinary - Male: denies: no symptoms, as stated in HPI, dysuria, hematuria , hesitancy, impotence, itching, penile discharge, rash, urinary frequency, urinary incontinence, urinary retention, urinary urgency, other Musculoskeletal: denies: no symptoms, as stated in HPI, arthralgias, neck pain , back pain, joint pain, joint swelling, deformity, myalgias, muscle spasms, other Integumentary: denies: no symptoms, as stated in HPI, rash, redness, warmth, itching, dryness, lesions, lumps, change in color, change in hair/nails, other Neurologic: denies: no symptoms, as stated in HPI, headache, dizziness, general weakness, focal weakness, numbness, tingling, paresthesia, pre-existing deficit, tremors, tics, vertigo, seizure, lethargy, memory loss, other Psychiatric: denies: no symptoms, as stated in HPI, anxiety, depression, suicidal ideation, homicidal ideation, visual hallucinations, auditory hallucinations, mood changes, alcohol abuse, drug abuse, other Endocrine: denies: no symptoms, as stated in HPI, cold intolerance, heat intolerance, hair changes, goiter, polydipsia, polyuria, skin changes, other Hematologic / Lymphatic: denies: no symptoms, as stated in HPI, abnormal clotting, adenopathy, anemia, easy bleeding, easy bruising, gums bleeding, petechiae, other Allergic / Immunologic: denies: no symptoms, as stated in HPI, eczema, environmental allergies, frequent infections, hives, multiple food allergies, seasonal allergies, pet sensitivities, poor healing, prolonged convalescence, other All Other Symptoms All Other Systems: Reviewed and Negative Past Medical History Past Medical History: cancer (tonsillar cancer), COPD Past Surgical History: s/p surgery for laryngeal ca with radical neck dissection Family History Cancer Diabetes mellitus Heart disease Hypertension Lung disease Social History Hx Tobacco Use In Past Year?: No Smoking Status: Former Smoker Alcohol: never Drug Use: none Housing status: lives with significant other Occupational Status: disabled Immunizations History of Influenza Vaccine: Yes Influenza Vaccine Date: May 13, 2013 History of Tetanus Vaccine?: Unknown History of Pneumococcal: Yes Pneumococcal Date: Apr 19, 2008 History of Hepatitis B Vaccine: No History of MDRO History of MDRO: Yes Type of MDRO: MRSA Allergies Coded Allergies: Nitrates, Organic (Verified Allergy, Unknown, DROP IN BP, 12/17/16) Terazosin (Verified Allergy, Unknown, 12/17/16) Current Medications Reported Home Medications Medications Dose Route/Sig Max Daily Dose Days Date Category Dose Instructions Prednisone 20 Mg Tab 40 Mg PO TID 12/17/16 Reported pt started today to take prednisone 40 mg tid to take for 3 days then decrease dose to 20 mg tid for 3 days [anora ellipta] 1 Dose INH DIRECTED 12/17/16 Reported Ventolin Hfa (Albuterol) 200 Puffs/00355 Mcg Aers 2 Puff INH Q4 PRN 12/03/16 Reported [Water] 200 Ml PEG QID 01/15/16 Reported Boost Plus (Enteral Nutrition Formula) 1 Can Liqd 2 Can PEG QID 01/15/16 Reported Duoneb (Ipratropium-Albuterol) 3 Ml Nebu 1 Treatment INH QID PRN 01/15/16 Reported Flovent Diskus (Fluticasone Propionate (Inhala) 100 Mcg/Blist Aer 1 Puffs INH BID PRN 01/15/16 Reported Zoloft (Sertraline HCl) 50 Mg Tab 50 Mg PEG QAM 09/18/15 Reported Florinef (Fludrocortisone Acetate) 0.1 Mg Tab 0.1-0.2 Mg PEG DAILY 04/30/15 Reported TAKE DIRECTED BY MD FOR HYPOTENSION. TAKES UP TO 3X A DAY NEED FOR INCREASING BP. Synthroid (Levothyroxine Sodium) 100 Mcg Tab 100 Mcg PEG QAM 05/12/13 Reported Physical Physical Exam Vital Signs: Date Time Temp Pulse Resp B/P (MAP) Pulse Ox O2 Delivery O2 Flow Rate FiO2 12/17/16 08:12 36.9 64 18 106/51 (69) 97 3.0 12/17/16 08:00 Nasal Cannula 2.0 12/17/16 07:56 64 16 97 Nasal Cannula 1.5 12/17/16 06:51 36.9 67 18 96/56 98 Nasal Cannula 2.0 12/17/16 06:14 74 112/51 12/17/16 06:00 74 26 89/52 96 Nasal Cannula 2.0 12/17/16 05:30 75 24 99/52 96 Nasal Cannula 2.0 12/17/16 05:00 67 26 87/49 95 Nasal Cannula 2.0 12/17/16 04:47 37.7 68 26 91/50 94 Nasal Cannula 2.0 12/17/16 04:43 68 12/17/16 04:40 88 Room Air 12/17/16 03:59 36.9 82 18 84/56 92 Room Air appears tired General Appearance: NO APPARENT DISTRESS Head: NORMOCEPHALIC Eyes: PERRLA, NO DISCHARGE ENT: NORMAL EAR EXAM, NORMAL NASAL EXAM, NORMAL MOUTH EXAM Neck: other (s/p right radical neck dissection) Respiratory: NO RESPIRATORY DISTRESS, other (left lung base crepts) Cardiovasular: REGULAR RATE/RHYTHM, NORMAL S1S2, NO M/G/R, NO MURMUR, NO GALLOP , NO RUB, NO JVD Abdomen: NON TENDER, NORMAL BOWEL SOUNDS, NO REBOUND, NO MASSES, NO GUARDING, NO ORGANOMEGALY Back: NORMAL INSPECTION Upper Extremities: NO EDEMA, NO DEFORMITY, NORMAL ROM Lower Extremities: NO EDEMA, NO DEFORMITY, NORMAL ROM Neuro: ALERT, ORIENTED x 3, NORMAL MOTOR EXAM, NORMAL SENSATION, NORMAL CEREBELLAR EXAM, other (nasal twang to speech due to the surgery for his laryngeal ca and neck dissection) Psychiatric: NORMAL AFFECT Diagnostics Labs Results Past 24 Hours Test 12/17/16 04:20 12/17/16 04:27 12/17/16 05:15 12/17/16 07:05 Range/Units White Blood Count 18.55 4.8-10.8 K/uL Red Blood Count 4.35 4.7-6.1 M/uL Hemoglobin 13.7 14.0-18.0 g/dL Hematocrit 41.4 42-52 % Mean Corpuscular Volume 95.2 80-100 fL Mean Corpuscular Hemoglobin 31.5 25-34 pg Mean Corpuscular Hemoglobin Concent 33.1 32-36 g/dl Platelet Count 193 130-400 K/uL Mean Platelet Volume 10.6 7.4-10.4 fL Neutrophils (%) (Auto) 88.6 % Lymphocytes (%) (Auto) 5.8 % Monocytes (%) (Auto) 5.1 % Eosinophils (%) (Auto) 0.1 % Basophils (%) (Auto) 0.1 % Neutrophils # (Auto) 16.46 1.4-6.5 K/uL Lymphocytes # (Auto) 1.07 1.2-3.4 K/uL Monocytes # (Auto) 0.94 0.11-0.59 K/uL Eosinophils # (Auto) 0.01 0-0.5 K/uL Basophils # (Auto) 0.01 0-0.2 K/uL RDW Standard Deviation 47.0 36.4-46.3 fL RDW Coefficient of Variation 13.5 11.5-14.5 % Immature Granulocyte % (Auto) 0.3 % Immature Granulocyte # (Auto) 0.06 0.00-0.02 K/uL Prothrombin Time 11.4 9.0-12.0 SECONDS Prothromb Time International Ratio 1.1 0.9-1.1 Activated Partial Thromboplast Time 26.3 21.0-31.0 SECONDS Partial Thromboplastin Ratio 1.0 Sodium Level 143 136-145 mmol/L Potassium Level 3.2 3.5-5.1 mmol/L Chloride Level 107 98-107 mmol/L Carbon Dioxide Level 28 21-32 mmol/L Anion Gap 8.0 3-11 mmol/L Blood Urea Nitrogen 33 7-18 mg/dl Creatinine 1.10 0.60-1.40 mg/dl Est Creatinine Clear Calc Drug Dose 67.5 ml/min Estimated GFR () 79.0 Estimated GFR (Non- 68.1 BUN/Creatinine Ratio 29.8 10-20 Random Glucose 139 70-99 mg/dl Calcium Level 8.4 8.5-10.1 mg/dl Magnesium Level 2.3 1.8-2.4 mg/dl Total Bilirubin 0.8 0.2-1 mg/dl Aspartate Amino Transf (AST/SGOT) 15 15-37 U/L Alanine Aminotransferase (ALT/SGPT) 50 12-78 U/L Alkaline Phosphatase 68 45-117 U/L Troponin I < 0.015 0-0.045 ng/ml Total Protein 6.4 6.4-8.2 gm/dl Albumin 3.1 3.4-5.0 gm/dl Globulin 3.3 2.5-4.0 gm/dl Albumin/Globulin Ratio 0.9 0.9-2 Thyroid Stimulating Hormone (TSH) 0.370 0.300-4.500 uIu/ml Bedside Troponin I 0.000 0-0.045 ng/ml Arterial Blood pH 7.47 7.35-7.45 Arterial Blood Partial Pressure CO2 36 35-46 mmHg Arterial Blood Partial Pressure O2 70 80-95 mm/Hg Arterial Blood HCO3 25 19-24 mmol/L Arterial Blood Oxygen Saturation 94.5 90-95 % Arterial Blood Base Excess 1.9 -9-1.8 mEq/L Arterial Blood Gas Delivery 2L Chacorta Test POS POS Lactic Acid Level 2.2 0.4-2.0 mmol/L Microbiology Results 12/17/16 Blood Culture, Received Pending 12/17/16 Blood Culture, Received Pending Diagnostic Radiology cxr shows left lower lobe infiltrate Impression Assessment and Plan 1) CAP : reviewed all his previous records and imaging. Left lower lobe infiltrate, given the h/o fever with chills, likely that he pneumonia. Due to the h/o MRSA, agree with vanco but consider zyvox if available. It is likely that his MRSA is being treated incompletely leading to recurrence d/c zosyn, add levaquin for atypical coverage 2) ? COPD : no pft's available. patient is not actively wheezing, taper off prednisone 10 mg/day until d/c continue neb rx assess for home o2 prior to d/c d/w patient's and answered all her questions
--- NOTE | 2016-12-17 11:14 | DIAGNOSTIC IMAGING REPORT ---
BILATERAL LOWER EXTREMITY VENOUS DOPPLER CLINICAL HISTORY: Leg pain. COMPARISON STUDY: No previous studies for comparison. TECHNIQUE: Sonography of the deep venous system of the bilateral lower extremities was performed. Compression and augmentation were evaluated. FINDINGS: The bilateral common femoral, superficial femoral and popliteal veins were compressible. Augmentation was normal. Flow was shown within the deep calf vessels. IMPRESSION: No evidence of deep venous thrombus within the bilateral lower extremities. Electronically signed by: Mike Sosa M.D. 12/17/2016 11:13 AM Dictated Date/Time: 12/17/2016 11:12 AM
[2016-12-17] MEDS ORDERED: UMEC1AER INH (11:20)
[2016-12-17] MEDS: LEVOFLOXACIN / D5W 750 MG in PREMIXED IN D5W 150 ML IV SCH (13:56)
[2016-12-17] MEDS ORDERED: PIPERACILL/TAZOBAC IV 3.375 GM in DEXTROSE 5% 100ML IV SCH (14:00)
[2016-12-17] MEDS: LINEZOLID 600MG / D5W IV SCH (18:31)
[2016-12-18] VITALS (10 sets, daily range): BP systolic 103–118; BP diastolic 54–66; PULSE 61–91; TEMP 36.5–36.6; O2SAT 94–100
[2016-12-18] MEDS: LEVALBUTEROL 1.25MG/0.5ML NEB INH SCH ×4 (01:58→19:17)
[2016-12-18] MEDS: IPRATROPIUM BROMIDE NEB SOLN 0.02% 2.5 ML VIAL INH SCH ×4 (01:58→19:17)
[2016-12-18] MEDS: LINEZOLID 600MG / D5W IV SCH ×2 (05:40→17:24)
[2016-12-18] MEDS: LEVOTHYROXINE 100 MCG TAB PEG SCH (05:41)
[2016-12-18 07:34] LABS: BASO % 0.1 %; BASO ABS # 0.01 K/uL (0-0.2); COMPLETE YES; EOS % 0.1 %; HEMATOCRIT 39.5 % (42-52); IG% 0.4 %; LYMPH % 10.3 %; LYMPH ABS # 1.46 K/uL (1.2-3.4); MEAN CELL VOLUME 97.1 fL (80-100); MEAN CORPUSCULAR HEMOGLOBIN 30.5 pg (25-34); MEAN CORPUSCULAR HGB CONC 31.4 g/dl (32-36); MEAN PLATELET VOLUME 10.4 fL (7.4-10.4); MONO % 5.4 %; NEUT % 83.7 %; PLATELET COUNT 157 K/uL (130-400); RED BLOOD COUNT 4.07 M/uL (4.7-6.1); WHITE BLOOD COUNT 14.19 K/uL (4.8-10.8)
[2016-12-18 08:13] LABS: BUN/CREATININE RATIO 26.8 (10-20); CALCIUM 8.4 mg/dl (8.5-10.1); CREATININE 0.88 mg/dl (0.60-1.40); POTASSIUM 4.1 mmol/L (3.5-5.1)
[2016-12-18] MEDS: ANORO INH SCH (08:42)
[2016-12-18] MEDS: BOOST PLUS VANILLA PEG SCH ×8 (08:43→20:50)
[2016-12-18] MEDS: FLUDROCORTISONE ACETATE 0.1 MG TAB PEG SCH (08:43)
[2016-12-18] MEDS: DOCUSATE SODIUM 100 MG/10 ML UDC PEG SCH (08:43)
[2016-12-18] MEDS: ENOXAPARIN 40 MG/0.4 ML SYR SC SCH (08:44)
--- NOTE | 2016-12-18 11:19 | Pulmonology Progress Note ---
Pulmonary Progress Note Date of Service Dec 18, 2016. 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 Assessment & Plan (1) Pneumonia Assessment & Plan: improved continue zyvox and levaquin for total 7 days (2) COPD exacerbation Assessment & Plan: improved continue anoro once a day albuterol as needed (3) Adrenal insufficiency Assessment & Plan: patient's says that he has been on prednisone due to wheezing and they are not aware of adrenal insufficiency This needs to be clarified as if it is for copd, needs to be tapered off slowly Data Medications: Current Inpatient Medications Medications (Trade) Dose Ordered Sig/John Route Start Time Stop Time Status Last Admin Dose Admin Albuterol/ Ipratropium (Duoneb) 3 ml Q2H PRN INH 12/17/16 06:15 01/16/17 06:14 Prednisone (PredniSONE TAB) 40 mg DAILY PO 12/18/16 09:00 12/23/16 08:59 12/18/16 08:43 40 MG Enoxaparin Sodium (Lovenox Inj) 40 mg Q24H SC 12/17/16 09:00 01/16/17 08:59 12/18/16 08:44 40 MG Acetaminophen (Tylenol Soln) 650 mg Q4H PRN PEG 12/17/16 06:15 01/16/17 06:14 Hydromorphone HCl (Dilaudid Inj) 0.5 mg Q3H PRN IV 12/17/16 06:15 12/31/16 06:14 Ketorolac Tromethamine (Toradol Inj) 15 mg Q6H PRN IV. 12/17/16 06:15 12/22/16 06:14 Enteral Nutritional Formula (Boost Plus Vanilla) 2 can QID PEG 12/17/16 09:00 01/16/17 08:59 12/18/16 08:43 2 CAN Fludrocortisone Acetate (Florinef Tab) 0.1 mg DAILY PEG 12/18/16 09:00 01/17/17 08:59 12/18/16 08:43 0.1 MG Levothyroxine Sodium (Synthroid Tab) 100 mcg DAILYBB PEG 12/17/16 09:00 01/16/17 08:59 12/18/16 05:41 100 MCG Sertraline HCl (Zoloft Tab) 50 mg QAM PEG 12/17/16 09:00 01/16/17 08:59 Future Hold 12/17/16 08:16 50 MG Ipratropium Lamar (Atrovent 0.02% 0.5MG/2.5ML Neb) 0.5 mg Q6R INH 12/17/16 09:00 01/16/17 08:59 12/18/16 07:15 0.5 MG Levalbuterol (Xopenex 1.25MG/ 0.5ML Neb) 1.25 mg Q6R INH 12/17/16 09:00 01/16/17 08:59 12/18/16 07:15 1.25 MG Docusate Sodium (coLACE SYRUP) 100 mg DAILY PEG 12/17/16 09:00 01/16/17 08:59 12/18/16 08:43 100 MG Levofloxacin 750 mg/Prmx 150 ml @ 100 mls/hr Q24H IV 12/17/16 11:00 12/24/16 10:59 12/17/16 13:56 100 MLS/HR Linezolid 600 mg/ Prmx 300 ml @ 200 mls/hr Q12@0600,1800 IV 12/17/16 18:00 12/24/16 17:59 12/18/16 05:40 200 MLS/HR Vital Signs: Date Time Temp Pulse Resp B/P (MAP) Pulse Ox O2 Delivery O2 Flow Rate FiO2 12/18/16 07:32 36.5 61 19 115/66 (82) 98 12/18/16 07:30 Room Air 12/18/16 07:15 62 16 97 Room Air 12/18/16 04:00 Room Air 12/18/16 04:00 36.6 63 18 103/58 (73) 100 Room Air 12/18/16 01:58 66 16 98 Room Air 12/17/16 23:59 Room Air 12/17/16 23:59 36.5 67 18 115/61 (79) 98 Room Air 12/17/16 20:00 Room Air 12/17/16 19:43 36.5 78 18 106/52 (70) 98 Room Air 12/17/16 19:16 69 16 98 Room Air 12/17/16 16:41 Room Air 12/17/16 16:20 36.5 74 20 95/48 (64) 97 Room Air 12/17/16 14:19 73 16 99 Room Air 12/17/16 12:07 Room Air Laboratory Results: Last 24 Hours Test 12/18/16 07:21 White Blood Count 14.19 K/uL Red Blood Count 4.07 M/uL Hemoglobin 12.4 g/dL Hematocrit 39.5 % Mean Corpuscular Volume 97.1 fL Mean Corpuscular Hemoglobin 30.5 pg Mean Corpuscular Hemoglobin Concent 31.4 g/dl Platelet Count 157 K/uL Mean Platelet Volume 10.4 fL Neutrophils (%) (Auto) 83.7 % Lymphocytes (%) (Auto) 10.3 % Monocytes (%) (Auto) 5.4 % Eosinophils (%) (Auto) 0.1 % Basophils (%) (Auto) 0.1 % Neutrophils # (Auto) 11.90 K/uL Lymphocytes # (Auto) 1.46 K/uL Monocytes # (Auto) 0.76 K/uL Eosinophils # (Auto) 0.01 K/uL Basophils # (Auto) 0.01 K/uL RDW Standard Deviation 49.5 fL RDW Coefficient of Variation 13.9 % Immature Granulocyte % (Auto) 0.4 % Immature Granulocyte # (Auto) 0.05 K/uL Sodium Level 146 mmol/L Potassium Level 4.1 mmol/L Chloride Level 112 mmol/L Carbon Dioxide Level 29 mmol/L Anion Gap 5.0 mmol/L Blood Urea Nitrogen 24 mg/dl Creatinine 0.88 mg/dl Est Creatinine Clear Calc Drug Dose 84.4 ml/min Estimated GFR () 101.6 Estimated GFR (Non- 87.6 BUN/Creatinine Ratio 26.8 Random Glucose 129 mg/dl Calcium Level 8.4 mg/dl
[2016-12-18] MEDS: LEVOFLOXACIN / D5W 750 MG in PREMIXED IN D5W 150 ML IV SCH (11:27)
--- NOTE | 2016-12-18 12:26 | Medical Consult ---
Consultation Date of Consultation: Dec 18, 2016. Attending Physician: Deja Soto M.D. Reason for Consultation: Zyvox use History of Present Illness Patient is a 71-year-old male who presented to the emergency department with complaints of cough, congestion, chest pain, dyspnea, and chills prior to admission. The patient states that for multiple days prior to admission, he had been feeling poorly. The patient does have history of COPD. On admission, the patient did have a chest x-ray completed which showed a developing airspace consolidation of the left lung base. Blood cultures have shown no growth to date. A MRSA nasal was positive. The patient's white blood admission was 18 point. His past records were reviewed today. It was noted that he has had MRSA grow from sputum cultures multiple times in the past. Most recently he had MRSA grow from a sputum culture on 07/18/2016 which was sensitive to doxycycline, Bactrim, rifampin, and vancomycin. The patient was initially placed on IV vancomycin and had been improving slightly, but pulmonary recommended that the patient transition to Zyvox if available. The patient was then placed on Zyvox and Levaquin. He states that he has improved substantially and is hoping to go home. Unfortunately, the patient was told that his Zyvox may not be covered as an outpatient. Past Medical/Surgical History Medical Problems: (1) Anemia Status: Acute (2) Anterior epistaxis Status: Acute (3) Bilateral pneumonia Status: Acute (4) Bleeding nose Status: Acute (5) COPD exacerbation Status: Acute (6) COPD exacerbation Status: Acute (7) Dehydration Status: Acute (8) Epididymitis Status: Acute (9) Hypoglycemia Status: Acute (10) Hypoxia Status: Acute (11) Nausea, vomiting, and diarrhea Status: Acute (12) Pneumonia Status: Acute (13) Sepsis Status: Acute (14) Sepsis Status: Acute (15) Thrush Status: Acute Medical Problems: (1) Adrenal insufficiency (2) Asthma (3) Benign prostatic hyperplasia (4) Chronic back pain (5) Chronic obstructive lung disease (6) Depression (7) Dyslipidemia (8) Gastroesophageal reflux disease (9) Gastroparesis (10) Orthostatic hypotension (11) Pneumonia (12) Respiratory failure, acute (13) Sepsis (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 Surgical Problems: (1) H/O esophagogastroduodenoscopy (2) S/P arthroscopic knee surgery (3) S/P colonoscopy (4) s/p modified radical neck dissection Family History Cancer Diabetes mellitus Heart disease Hypertension Lung disease Noncontributory Social History Smoking Status: Former Smoker Drug Use: none Housing Status: lives with significant other Occupation Status: disabled Allergies Coded Allergies: Nitrates, Organic (Verified Allergy, Unknown, DROP IN BP, 12/17/16) Terazosin (Verified Allergy, Unknown, 12/17/16) Home Medications Reported Home Medications Medications Dose Route/Sig Max Daily Dose Days Date Category Dose Instructions Anoro Ellipta 62.5-25 Mcg/INH (Umeclidinium-Vilanterol) 1 Aer Aer 1 Puff INH DAILY 12/17/16 Reported Prednisone 20 Mg Tab 40 Mg PO TID 12/17/16 Reported pt started today to take prednisone 40 mg tid to take for 3 days then decrease dose to 20 mg tid for 3 days Ventolin Hfa (Albuterol) 200 Puffs/75706 Mcg Aers 2 Puff INH Q4 PRN 12/03/16 Reported [Water] 200 Ml PEG QID 01/15/16 Reported Boost Plus (Enteral Nutrition Formula) 1 Can Liqd 2 Can PEG QID 01/15/16 Reported Duoneb (Ipratropium-Albuterol) 3 Ml Nebu 1 Treatment INH QID PRN 01/15/16 Reported Flovent Diskus (Fluticasone Propionate (Inhala) 100 Mcg/Blist Aer 1 Puffs INH BID PRN 01/15/16 Reported Zoloft (Sertraline HCl) 50 Mg Tab 50 Mg PEG QAM 09/18/15 Reported Florinef (Fludrocortisone Acetate) 0.1 Mg Tab 0.1-0.2 Mg PEG DAILY 04/30/15 Reported TAKE DIRECTED BY MD FOR HYPOTENSION. TAKES UP TO 3X A DAY NEED FOR INCREASING BP. Synthroid (Levothyroxine Sodium) 100 Mcg Tab 100 Mcg PEG QAM 05/12/13 Reported Current Inpatient Medications Current Inpatient Medications Medications (Trade) Dose Ordered Sig/John Route Start Time Stop Time Status Last Admin Dose Admin Albuterol/ Ipratropium (Duoneb) 3 ml Q2H PRN INH 12/17/16 06:15 01/16/17 06:14 Prednisone (PredniSONE TAB) 40 mg DAILY PO 12/18/16 09:00 12/23/16 08:59 12/18/16 08:43 40 MG Enoxaparin Sodium (Lovenox Inj) 40 mg Q24H SC 12/17/16 09:00 01/16/17 08:59 12/18/16 08:44 40 MG Acetaminophen (Tylenol Soln) 650 mg Q4H PRN PEG 12/17/16 06:15 01/16/17 06:14 Hydromorphone HCl (Dilaudid Inj) 0.5 mg Q3H PRN IV 12/17/16 06:15 12/31/16 06:14 Ketorolac Tromethamine (Toradol Inj) 15 mg Q6H PRN IV. 12/17/16 06:15 12/22/16 06:14 Enteral Nutritional Formula (Boost Plus Vanilla) 2 can QID PEG 12/17/16 09:00 01/16/17 08:59 12/18/16 08:43 2 CAN Fludrocortisone Acetate (Florinef Tab) 0.1 mg DAILY PEG 12/18/16 09:00 01/17/17 08:59 12/18/16 08:43 0.1 MG Levothyroxine Sodium (Synthroid Tab) 100 mcg DAILYBB PEG 12/17/16 09:00 01/16/17 08:59 12/18/16 05:41 100 MCG Sertraline HCl (Zoloft Tab) 50 mg QAM PEG 12/17/16 09:00 01/16/17 08:59 Future Hold 12/17/16 08:16 50 MG Ipratropium [place] (Atrovent 0.02% 0.5MG/2.5ML Neb) 0.5 mg Q6R INH 12/17/16 09:00 01/16/17 08:59 12/18/16 07:15 0.5 MG Levalbuterol (Xopenex 1.25MG/ 0.5ML Neb) 1.25 mg Q6R INH 12/17/16 09:00 01/16/17 08:59 12/18/16 07:15 1.25 MG Docusate Sodium (coLACE SYRUP) 100 mg DAILY PEG 12/17/16 09:00 01/16/17 08:59 12/18/16 08:43 100 MG Levofloxacin 750 mg/Prmx 150 ml @ 100 mls/hr Q24H IV 12/17/16 11:00 12/24/16 10:59 12/18/16 11:27 100 MLS/HR Linezolid 600 mg/ Prmx 300 ml @ 200 mls/hr Q12@0600,1800 IV 12/17/16 18:00 12/24/16 17:59 12/18/16 05:40 200 MLS/HR Review of Systems Constitutional: + weakness, + fatigue Eyes: No worsening of vision ENT: No hearing loss Respiratory: + cough, + sputum, + wheezing, + shortness of breath (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 NURSE- 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) Cardiovascular: + chest pain (UROLOGIC NURSE- 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) Abdomen: No pain, No nausea, No vomiting, No diarrhea Musculoskeletal: No joint pain, No swelling Genitourinary - Male: No hematuria, No dysuria Integumentary: No rash, No new/changing skin lesions Physical Exam Date Time Temp Pulse Resp B/P (MAP) Pulse Ox O2 Delivery O2 Flow Rate FiO2 12/18/16 11:49 36.5 91 19 107/54 (71) 98 Room Air 12/18/16 11:10 Room Air 12/18/16 07:32 36.5 61 19 115/66 (82) 98 12/18/16 07:30 Room Air 12/18/16 07:15 62 16 97 Room Air 12/18/16 04:00 Room Air 12/18/16 04:00 36.6 63 18 103/58 (73) 100 Room Air 12/18/16 01:58 66 16 98 Room Air 12/17/16 23:59 Room Air 12/17/16 23:59 36.5 67 18 115/61 (79) 98 Room Air 12/17/16 20:00 Room Air 12/17/16 19:43 36.5 78 18 106/52 (70) 98 Room Air 12/17/16 19:16 69 16 98 Room Air 12/17/16 16:41 Room Air 12/17/16 16:20 36.5 74 20 95/48 (64) 97 Room Air 12/17/16 14:19 73 16 99 Room Air General Appearance: WD/WN, no apparent distress Head: normocephalic, atraumatic Eyes: normal inspection, sclerae normal ENT: hearing grossly normal Neck: supple, trachea midline Respiratory/Chest: chest non-tender, no respiratory distress, no accessory muscle use, + pertinent finding (very mild coarse breath sounds bases) Cardiovascular: regular rate, rhythm, no murmur Abdomen/GI: normal bowel sounds, non tender, soft Back: normal inspection Extremities/Musculoskelatal: normal inspection, normal range of motion Neurologic/Psych: alert, normal mood/affect Skin: normal color, warm/dry, no rash Laboratory Results SINGLE VIEW CHEST CLINICAL HISTORY: Sepsis. FINDINGS: An AP, portable, upright chest radiograph is compared to study dated 12/03/2016. Correlation is made with chest CT dated 01/15/2016. The examination is degraded by portable technique and patient rotation. The cardiac silhouette is top normal for projection. There is mild atherosclerotic calcification of the thoracic aorta. Chronic interstitial thickening and biapical scarring are again noted. There is patchy airspace consolidation at the left lung base. The right lung appears clear. No large pleural effusion or pneumothorax is seen. The skeletal structures are osteopenic. The bony thorax is grossly intact. IMPRESSION: There is developing airspace consolidation at the left lung base. This could represent atelectasis, pneumonia, and/or aspiration pneumonitis. Clinical correlation will be required and radiographic follow-up to resolution is recommended. Item Value Date Time Blood Culture - Preliminary Resulted 12/17/16 0435 Blood NO GROWTH TO DATE. Blood Culture - Preliminary Resulted 12/17/16 0420 Blood NO GROWTH TO DATE. Last 24 Hours Test 12/18/16 07:21 White Blood Count 14.19 K/uL Red Blood Count 4.07 M/uL Hemoglobin 12.4 g/dL Hematocrit 39.5 % Mean Corpuscular Volume 97.1 fL Mean Corpuscular Hemoglobin 30.5 pg Mean Corpuscular Hemoglobin Concent 31.4 g/dl Platelet Count 157 K/uL Mean Platelet Volume 10.4 fL Neutrophils (%) (Auto) 83.7 % Lymphocytes (%) (Auto) 10.3 % Monocytes (%) (Auto) 5.4 % Eosinophils (%) (Auto) 0.1 % Basophils (%) (Auto) 0.1 % Neutrophils # (Auto) 11.90 K/uL Lymphocytes # (Auto) 1.46 K/uL Monocytes # (Auto) 0.76 K/uL Eosinophils # (Auto) 0.01 K/uL Basophils # (Auto) 0.01 K/uL RDW Standard Deviation 49.5 fL RDW Coefficient of Variation 13.9 % Immature Granulocyte % (Auto) 0.4 % Immature Granulocyte # (Auto) 0.05 K/uL Sodium Level 146 mmol/L Potassium Level 4.1 mmol/L Chloride Level 112 mmol/L Carbon Dioxide Level 29 mmol/L Anion Gap 5.0 mmol/L Blood Urea Nitrogen 24 mg/dl Creatinine 0.88 mg/dl Est Creatinine Clear Calc Drug Dose 84.4 ml/min Estimated GFR () 101.6 Estimated GFR (Non- 87.6 BUN/Creatinine Ratio 26.8 Random Glucose 129 mg/dl Calcium Level 8.4 mg/dl Assessment & Plan Patient with LLL pneumonia, COPD, and history of MRSA with positive MRSA nasal swab on admission. The patient is currently on Levaquin and Zyvox. These are appropriate for further treatment if the patient has coverage for PO Zyvox as an outpatient. Previously, the patient has had tetracycline sensitive MRSA grow from sputum. Therefore, if patient is not covered well for Zyvox, feel that she likely could transition to PO Doxycycline. Recommend completing 14 days of therapy with COPD and history of MRSA on multiple sputum cultures- agree with pulmonary and question undertreatment in the past. Case reviewed and agree with above assessment.
--- NOTE | 2016-12-18 12:38 | Progress Note ---
Internal Med Progress Note Date of Service: Dec 18, 2016. Provider Documentation: SUBJECTIVE: The patient was seen and examined Feels a little better Denies any complaints Feels a lot better and wants to0 go home OBJECTIVE: Vital Signs-as noted below Exam: General-no distress at rest Eyes-normal ENT-normal Neck-supple Lungs-Decreased breath sound bilaterally Coarse crackles left base with decrease breath sound Heart-Regular,no murmur Abdomen-Benign,no masses Extremities-No edema Neuro-AAOx3 Lab data as noted below. ASSESSMENT & PLAN: Acute hypoxemic Respiratory Failure -secondary to chronic obstructive pulmonary disease exacerbation- -secondary to CAP, left base -Possible MRSA and/or aspiration pneumonia -with history of MRSA with sputum positive for MRSA.Previously sensitive to Tetracycline -history of aspiration risk sp PEG tube -failed outpatient treatment w/ Zpack -supplemental O2 -CS, Vancomycin, Zosyn, nebs, prednisone course -Appreciate Pulmonary input -Zosyn changed to Levaquin -clinically better -Appreciate ID input-May be transitioned to Doxycycline .Total course of 14 days Severe sepsis SIRS plus lactic acidosis/hypoxemia 2 to above Cultures taken Vancomycin and Levaquin Zyvox and Levaquin for now Past tobacco abuse Tonsillar cancer status post surgery/chemoradiation, S/P PEG tube feeding for years Hypothyroidism, euthyroid as of today's TSH DVT prophylaxis. Lovenox subQ. LE extremity Dopplers ro DVT FULL CODE PER , Miss Letty Canseco. She requests updates from providers at [phone]. Discussed with her Likely discharge today/tomorrow Vital Signs: Date Time Temp Pulse Resp B/P (MAP) Pulse Ox O2 Delivery O2 Flow Rate FiO2 12/18/16 16:00 Room Air 12/18/16 15:44 36.6 72 18 118/61 (80) 97 Room Air 12/18/16 14:02 71 16 94 Room Air 12/18/16 11:49 36.5 91 19 107/54 (71) 98 Room Air 12/18/16 11:10 Room Air 12/18/16 07:32 36.5 61 19 115/66 (82) 98 12/18/16 07:30 Room Air 12/18/16 07:15 62 16 97 Room Air 12/18/16 04:00 Room Air 12/18/16 04:00 36.6 63 18 103/58 (73) 100 Room Air 12/18/16 01:58 66 16 98 Room Air 12/17/16 23:59 Room Air 12/17/16 23:59 36.5 67 18 115/61 (79) 98 Room Air 12/17/16 20:00 Room Air 12/17/16 19:43 36.5 78 18 106/52 (70) 98 Room Air 12/17/16 19:16 69 16 98 Room Air Lab Results: Results Past 24 Hours Test 12/18/16 07:21 Range/Units White Blood Count 14.19 4.8-10.8 K/uL Red Blood Count 4.07 4.7-6.1 M/uL Hemoglobin 12.4 14.0-18.0 g/dL Hematocrit 39.5 42-52 % Mean Corpuscular Volume 97.1 80-100 fL Mean Corpuscular Hemoglobin 30.5 25-34 pg Mean Corpuscular Hemoglobin Concent 31.4 32-36 g/dl Platelet Count 157 130-400 K/uL Mean Platelet Volume 10.4 7.4-10.4 fL Neutrophils (%) (Auto) 83.7 % Lymphocytes (%) (Auto) 10.3 % Monocytes (%) (Auto) 5.4 % Eosinophils (%) (Auto) 0.1 % Basophils (%) (Auto) 0.1 % Neutrophils # (Auto) 11.90 1.4-6.5 K/uL Lymphocytes # (Auto) 1.46 1.2-3.4 K/uL Monocytes # (Auto) 0.76 0.11-0.59 K/uL Eosinophils # (Auto) 0.01 0-0.5 K/uL Basophils # (Auto) 0.01 0-0.2 K/uL RDW Standard Deviation 49.5 36.4-46.3 fL RDW Coefficient of Variation 13.9 11.5-14.5 % Immature Granulocyte % (Auto) 0.4 % Immature Granulocyte # (Auto) 0.05 0.00-0.02 K/uL Sodium Level 146 136-145 mmol/L Potassium Level 4.1 3.5-5.1 mmol/L Chloride Level 112 98-107 mmol/L Carbon Dioxide Level 29 21-32 mmol/L Anion Gap 5.0 3-11 mmol/L Blood Urea Nitrogen 24 7-18 mg/dl Creatinine 0.88 0.60-1.40 mg/dl Est Creatinine Clear Calc Drug Dose 84.4 ml/min Estimated GFR () 101.6 Estimated GFR (Non- 87.6 BUN/Creatinine Ratio 26.8 10-20 Random Glucose 129 70-99 mg/dl Calcium Level 8.4 8.5-10.1 mg/dl
--- NOTE | 2016-12-18 14:09 | Clinical Documentation Query ---
Dr. OR[facility] : CLINICAL DOCUMENTATION QUERY Patient is a 71 year old male admitted for acute hypoxemic respiratory failure secondary to COPD exacerbation secondary to CAP. Noted "history of MRSA and positive sputum" and "history of aspiration". He is being treated with Zyvox, Levaquin, nebs, prednisone, pulmonary and ID consultation, and monitored on telemetry. If these are the suspected etiologies of pneumonia on this admission, please explicitly document accordingly to capture the intended severity of illness. Thank you. In your clinical opinion is this patient being managed for: ( + ) (Possible/Suspected/Likely) MRSA and/or aspiration pneumonia ( ) Other explanation of clinical findings (Please Explain) ( ) Unable to determine (Please Define) ( ) Need to Discuss ( ) Not Agree The medical record reflects the following clinical findings, treatment, and risk factors. Clinical Indicators: As above Treatment:He is being treated with Zyvox, Levaquin, nebs, prednisone, pulmonary and ID consultation, and monitored on telemetry. Risk Factors: Recent pneumonia/antibiotics, known MRSA, known aspiration risk, recent hospitalization, COPD Please clarify and document your clinical opinion in the progress notes and discharge summary. Terms such as "probable", "suspected", "likely", "questionable", "possible", or "still to be ruled out" are acceptable. IF IN AGREEMENT, YOU MUST DOCUMENT ABOVE DIAGNOSTIC STATEMENT IN DAILY PROGRESS NOTES AND DISCHARGE SUMMARY. This document is not part of the patient's record. Thank You, Alejandro Velazquez, RN [phone]
[2016-12-19 01:59] VITALS: PULSE 65; O2SAT 94
[2016-12-19] MEDS: IPRATROPIUM BROMIDE NEB SOLN 0.02% 2.5 ML VIAL INH SCH ×2 (01:59→07:00)
[2016-12-19] MEDS: LEVALBUTEROL 1.25MG/0.5ML NEB INH SCH ×2 (01:59→07:00)
[2016-12-19 04:54] VITALS: BP 136/71; PULSE 69; TEMP 36.5; O2SAT 97
[2016-12-19] MEDS: LINEZOLID 600MG / D5W IV SCH (06:11)
[2016-12-19] MEDS: LEVOTHYROXINE 100 MCG TAB PEG SCH (06:29)
[2016-12-19 07:00] VITALS: PULSE 62; O2SAT 97
[2016-12-19] MEDS: ANORO INH SCH (08:10)
[2016-12-19] MEDS: DOCUSATE SODIUM 100 MG/10 ML UDC PEG SCH (08:10)
[2016-12-19] MEDS: ENOXAPARIN 40 MG/0.4 ML SYR SC SCH (08:11)
[2016-12-19] MEDS: FLUDROCORTISONE ACETATE 0.1 MG TAB PEG SCH (08:11)
[2016-12-19] MEDS: BOOST PLUS VANILLA PEG SCH ×4 (08:13→12:23)
[2016-12-19 08:34] VITALS: BP 124/70; PULSE 60; TEMP 36.7; O2SAT 99
--- NOTE | 2016-12-19 10:29 | DIAGNOSTIC IMAGING REPORT ---
CHEST 2 VIEWS ROUTINE HISTORY: pneumonia COMPARISON: Chest 12/17/2016. FINDINGS: There is slight improved aeration within the left lung base hazy airspace opacity. Right basilar linear densities favor subsegmental atelectasis. The heart is stable in size. No pleural effusions. No pneumothorax. IMPRESSION: Slight improved aeration within the left basilar airspace opacity. This likely represents a resolving pneumonia. Electronically signed by: Rylan Archuleta M.D. 12/19/2016 10:27 AM Dictated Date/Time: 12/19/2016 10:26 AM
[2016-12-19] MEDS: LEVOFLOXACIN / D5W 750 MG in PREMIXED IN D5W 150 ML IV SCH (10:35)
[2016-12-19 10:37] VITALS: BP 112/71; PULSE 67; TEMP 36.7; O2SAT 95
[2016-12-19 10:56] LABS: HEMATOCRIT 38.4 % (42-52); MEAN CELL VOLUME 98.2 fL (80-100); MEAN CORPUSCULAR HGB CONC 32.6 g/dl (32-36); MEAN PLATELET VOLUME 10.9 fL (7.4-10.4); PLATELET COUNT 168 K/uL (130-400); RED BLOOD COUNT 3.91 M/uL (4.7-6.1); WHITE BLOOD COUNT 10.52 K/uL (4.8-10.8)
--- NOTE | 2016-12-19 11:23 | Pulmonology Progress Note ---
Pulmonary Progress Note Date of Service Dec 19, 2016. 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 Assessment & Plan (1) Pneumonia Assessment & Plan: improved continue zyvox and levaquin for total 7 days (2) COPD exacerbation Assessment & Plan: improved continue anoro once a day albuterol as needed needs to be followed up with pulmonary as outpatient the chronic use of prednisone as outpatient needs to be addressed (3) Adrenal insufficiency Assessment & Plan: patient's says that he has been on prednisone due to wheezing and they are not aware of adrenal insufficiency This needs to be clarified as if it is for copd, needs to be tapered off slowly Data Medications: Current Inpatient Medications Medications (Trade) Dose Ordered Sig/John Route Start Time Stop Time Status Last Admin Dose Admin Albuterol/ Ipratropium (Duoneb) 3 ml Q2H PRN INH 12/17/16 06:15 01/16/17 06:14 Prednisone (PredniSONE TAB) 40 mg DAILY PO 12/18/16 09:00 12/23/16 08:59 12/19/16 08:10 40 MG Enoxaparin Sodium (Lovenox Inj) 40 mg Q24H SC 12/17/16 09:00 01/16/17 08:59 12/19/16 08:11 40 MG Acetaminophen (Tylenol Soln) 650 mg Q4H PRN PEG 12/17/16 06:15 01/16/17 06:14 Hydromorphone HCl (Dilaudid Inj) 0.5 mg Q3H PRN IV 12/17/16 06:15 12/31/16 06:14 Ketorolac Tromethamine (Toradol Inj) 15 mg Q6H PRN IV. 12/17/16 06:15 12/22/16 06:14 Enteral Nutritional Formula (Boost Plus Vanilla) 2 can QID PEG 12/17/16 09:00 01/16/17 08:59 12/19/16 08:13 2 CAN Fludrocortisone Acetate (Florinef Tab) 0.1 mg DAILY PEG 12/18/16 09:00 01/17/17 08:59 12/19/16 08:11 0.1 MG Levothyroxine Sodium (Synthroid Tab) 100 mcg DAILYBB PEG 12/17/16 09:00 01/16/17 08:59 12/19/16 06:29 100 MCG Sertraline HCl (Zoloft Tab) 50 mg QAM PEG 12/17/16 09:00 01/16/17 08:59 Future Hold 12/17/16 08:16 50 MG Ipratropium [place] (Atrovent 0.02% 0.5MG/2.5ML Neb) 0.5 mg Q6R INH 12/17/16 09:00 01/16/17 08:59 12/19/16 07:00 0.5 MG Levalbuterol (Xopenex 1.25MG/ 0.5ML Neb) 1.25 mg Q6R INH 12/17/16 09:00 01/16/17 08:59 12/19/16 07:00 1.25 MG Docusate Sodium (coLACE SYRUP) 100 mg DAILY PEG 12/17/16 09:00 01/16/17 08:59 12/19/16 08:10 100 MG Levofloxacin 750 mg/Prmx 150 ml @ 100 mls/hr Q24H IV 12/17/16 11:00 12/24/16 10:59 12/19/16 10:35 100 MLS/HR Linezolid 600 mg/ Prmx 300 ml @ 200 mls/hr Q12@0600,1800 IV 12/17/16 18:00 12/24/16 17:59 12/19/16 06:11 200 MLS/HR Vital Signs: Date Time Temp Pulse Resp B/P (MAP) Pulse Ox O2 Delivery O2 Flow Rate FiO2 12/19/16 10:37 36.7 67 18 112/71 (85) 95 Room Air 12/19/16 08:34 36.7 60 17 124/70 (88) 99 Room Air 12/19/16 08:00 Room Air 12/19/16 07:00 62 16 97 Room Air 12/19/16 04:54 36.5 69 18 136/71 (92) 97 Room Air 12/19/16 04:00 Room Air 12/19/16 01:59 65 16 94 Room Air 12/19/16 00:01 Room Air 12/18/16 23:20 36.6 67 24 112/58 (76) 97 Room Air 12/18/16 20:00 Room Air 12/18/16 19:27 36.6 68 18 113/57 (75) 97 Room Air 12/18/16 19:18 72 16 94 Room Air 12/18/16 16:00 Room Air 12/18/16 15:44 36.6 72 18 118/61 (80) 97 Room Air 12/18/16 14:02 71 16 94 Room Air 12/18/16 11:49 36.5 91 19 107/54 (71) 98 Room Air Laboratory Results: Last 24 Hours Test 12/19/16 10:36 White Blood Count 10.52 K/uL Red Blood Count 3.91 M/uL Hemoglobin 12.5 g/dL Hematocrit 38.4 % Mean Corpuscular Volume 98.2 fL Mean Corpuscular Hemoglobin 32.0 pg Mean Corpuscular Hemoglobin Concent 32.6 g/dl RDW Standard Deviation 50.9 fL RDW Coefficient of Variation 14.3 % Platelet Count 168 K/uL Mean Platelet Volume 10.9 fL
[2016-12-19 11:24] LABS: BUN/CREATININE RATIO 25.1 (10-20); CALCIUM 8.3 mg/dl (8.5-10.1); CREATININE 0.9 mg/dl (0.60-1.40); MAGNESIUM 2.4 mg/dl (1.8-2.4); PHOSPHORUS 3.1 mg/dl (2.5-4.9); POTASSIUM 4.3 mmol/L (3.5-5.1)
--- NOTE | 2016-12-19 13:31 | Progress Note ---
Internal Med Progress Note Date of Service: Dec 19, 2016. Provider Documentation: SUBJECTIVE: The patient was seen and examined Feels a little better Denies any complaints Feels a lot better Wants to go home OBJECTIVE: Vital Signs-as noted below Exam: General-no distress at rest Eyes-normal ENT-normal Neck-supple Lungs-Decreased breath sound bilaterally Coarse crackles left base with decrease breath sound Heart-Regular,no murmur Abdomen-Benign,no masses Extremities-No edema Neuro-AAOx3 Lab data as noted below. ASSESSMENT & PLAN: Acute hypoxemic Respiratory Failure -secondary to chronic obstructive pulmonary disease exacerbation- -secondary to CAP, left base -Possible MRSA and/or aspiration pneumonia -with history of MRSA with sputum positive for MRSA.Previously sensitive to Tetracycline -history of aspiration risk sp PEG tube -failed outpatient treatment w/ Zpack -supplemental O2 -CS, Vancomycin, Zosyn, nebs, prednisone course -Appreciate Pulmonary input -Zosyn changed to Levaquin -clinically better -Appreciate ID input-May be transitioned to Doxycycline .Total course of 14 days -WCC is stable and CXR showing improvement Severe sepsis SIRS plus lactic acidosis/hypoxemia 2 to above Cultures taken Vancomycin and Levaquin Zyvox and Levaquin for now Discharged on Levaquin and Doxycycline Past tobacco abuse Tonsillar cancer status post surgery/chemoradiation, S/P PEG tube feeding for years Hypothyroidism, euthyroid as of today's TSH DVT prophylaxis. Lovenox subQ. LE extremity Dopplers ro DVT FULL CODE PER , Miss Letty Canseco. She requests updates from providers at [phone]. Discussed with her Will discharge today Vital Signs: Date Time Temp Pulse Resp B/P (MAP) Pulse Ox O2 Delivery O2 Flow Rate FiO2 12/19/16 13:47 36.7 67 18 95 Room Air 12/19/16 11:45 Room Air 12/19/16 10:37 36.7 67 18 112/71 (85) 95 Room Air 12/19/16 08:34 36.7 60 17 124/70 (88) 99 Room Air 12/19/16 08:00 Room Air 12/19/16 07:00 62 16 97 Room Air 12/19/16 04:54 36.5 69 18 136/71 (92) 97 Room Air 12/19/16 04:00 Room Air 12/19/16 01:59 65 16 94 Room Air 12/19/16 00:01 Room Air 12/18/16 23:20 36.6 67 24 112/58 (76) 97 Room Air 12/18/16 20:00 Room Air 12/18/16 19:27 36.6 68 18 113/57 (75) 97 Room Air 12/18/16 19:18 72 16 94 Room Air Lab Results: Results Past 24 Hours Test 12/19/16 10:36 Range/Units White Blood Count 10.52 4.8-10.8 K/uL Red Blood Count 3.91 4.7-6.1 M/uL Hemoglobin 12.5 14.0-18.0 g/dL Hematocrit 38.4 42-52 % Mean Corpuscular Volume 98.2 80-100 fL Mean Corpuscular Hemoglobin 32.0 25-34 pg Mean Corpuscular Hemoglobin Concent 32.6 32-36 g/dl RDW Standard Deviation 50.9 36.4-46.3 fL RDW Coefficient of Variation 14.3 11.5-14.5 % Platelet Count 168 130-400 K/uL Mean Platelet Volume 10.9 7.4-10.4 fL Sodium Level 147 136-145 mmol/L Potassium Level 4.3 3.5-5.1 mmol/L Chloride Level 110 98-107 mmol/L Carbon Dioxide Level 33 21-32 mmol/L Anion Gap 4.0 3-11 mmol/L Blood Urea Nitrogen 23 7-18 mg/dl Creatinine 0.90 0.60-1.40 mg/dl Est Creatinine Clear Calc Drug Dose 82.5 ml/min Estimated GFR () 100.6 Estimated GFR (Non- 86.8 BUN/Creatinine Ratio 25.1 10-20 Random Glucose 86 70-99 mg/dl Calcium Level 8.3 8.5-10.1 mg/dl Phosphorus Level 3.1 2.5-4.9 mg/dl Magnesium Level 2.4 1.8-2.4 mg/dl Microbiology Results 12/18/16 Gram Stain - Final, Resulted 12/18/16 Sputum Culture - Preliminary, Resulted MODERATE NORMAL ZENAIDA Present, Final ...
[2016-12-19] MEDS ORDERED: DXY100 PEG (13:38)
[2016-12-19] MEDS ORDERED: LEVO-459 PEG (13:38)
[2016-12-19] MEDS ORDERED: LCTX PEG (13:38)
[2016-12-19] MEDS ORDERED: PRD20 PO (13:38)
--- NOTE | 2016-12-19 13:41 | Discharge Instructions ---
Discharge Instructions Date of Service Dec 19, 2016. Admission Reason for Admission: Respiratory Failure, Acute Discharge Discharge Diagnosis / Problem: pneumonia Discharge Goals Goal(s): Prevent Disease Progression Activity Recommendations Activity Limitations: resume your previous activity . Instructions / Follow-Up Instructions / Follow-Up Your doctor's office will call with appointment Current Hospital Diet Patient's current hospital diet: Discharge Diet Recommended Diet: N/A (PEG tube feeding ) Pending Studies Studies pending at discharge: no Medical Emergencies . Who to Call and When: Medical Emergencies: If at any time you feel your situation is an emergency, please call 911 immediately. . Non-Emergent Contact Non-Emergency issues call your: Primary Care Provider . Past History Medical & Surgical History: (1) Pneumonia (2) COPD exacerbation (3) Dyslipidemia (4) Gastroesophageal reflux disease (5) Tonsil carcinoma (6) Depression (7) S/P arthroscopic knee surgery (8) H/O esophagogastroduodenoscopy (9) S/P colonoscopy (10) s/p modified radical neck dissection . "Provider Documentation" section prepared by Deja Soto. . VTE Core Measure Inpt VTE Proph given/why not?: Enoxaparin (Lovenox)SQ
[2016-12-19 13:47] VITALS: BP 112/71; PULSE 67; TEMP 36.7; O2SAT 95
--- NOTE | 2016-12-19 16:58 | Discharge Summary ---
Discharge Summary Date of Service Dec 19, 2016. Discharge Summary Admission Date: Dec 17, 2016 at 05:47 Discharge Date: Dec 19, 2016 Principal Diagnosis: Pneumonia Secondary Diagnoses/Problems: Please see H&P and Hospital Progress note Consultations: Pulmonary and ID Medication Reconciliation New Medications: Doxycycline Hyclate (Doxycycline Hyclate) 100 Mg Cap 100 MG PEG BID, #20 Lactobacillus Acidophilus (Lactinex) Tab 2 TAB PEG BID, #40 TAB Levofloxacin (Levaquin) 500 Mg Tab 500 MG PEG DAILY, #10 Prednisone (Prednisone) 20 Mg Tab 20 MG PO UD for 12 Days, #15 TAB 2 po daily for 3 days,1 and a 1/2 po daily for 3 days,1 po daily for 3 days and ten 1/2 po daily for 3 days Continued Medications: Albuterol Hfa (Ventolin Hfa) 200 Puffs/28629 Mcg Aers 2 PUFF INH Q4 PRN for wheezing, #1 INHALER Enteral Nutrition Formula (Boost Plus) 1 Can Liqd 2 CAN PEG QID Fludrocortisone Acetate (Florinef) 0.1 Mg Tab 0.1-0.2 MG PEG DAILY TAKE DIRECTED BY MD FOR HYPOTENSION. TAKES UP TO 3X A DAY NEED FOR INCREASING BP. Fluticasone Propionate (Inhala (Flovent Diskus) 100 Mcg/Blist Aer 1 PUFFS INH BID PRN for SOB/Wheezing, #1 INHALER 5 Refills Ipratropium-Albuterol (Duoneb) 3 Ml Nebu 1 TREATMENT INH QID PRN for SOB/Wheezing, INHA Levothyroxine Sodium (Synthroid) 100 Mcg Tab 100 MCG PEG QAM Prednisone (Prednisone) 20 Mg Tab 40 MG PO TID, TAB pt started today to take prednisone 40 mg tid to take for 3 days then decrease dose to 20 mg tid for 3 days Sertraline (Zoloft) 50 Mg Tab 50 MG PEG QAM, TAB Umeclidinium-Vilanterol (Anoro Ellipta 62.5-25 Mcg/INH) 1 Aer Aer 1 PUFF INH DAILY [Water] () 200 ML PEG QID Admission Information HPI (per Admitting provider): DATE OF ADMISSION: 12/17/2016 PATIENT'S PRIMARY CARE DOCTOR: Dr. Hart. CHIEF COMPLAINT: Shortness of breath. HISTORY OF PRESENT ILLNESS: History obtained from patient, . and records. Limited history obtained from px secondary to hearing impairment. Medical history significant for tonsillar cancer sp surgery post chemoradiation, COPD, past tobacco abuse, hypertension, known aspiration risk status post PEG tube placement, gastroparesis, history of MRSA. Recent confinement June 2016 for MRSA pneumonia. Patient discharged on Cephalexin and Doxycycline. As per patient's the last week the patient noted fever, junky cough, unable to expectorate. No witnessed aspiration events, although the patient's admits that patient that the patient sometimes still eats and drinks. Seen at PCP's office a few days ago. Impression was COPD exacerbation, prescribed prednisone and azithromycin. Transient improvement of symptoms. Px later noted worsening cough sx w. son. Left-sided chest pain nonpleuritic. Constipated. No abdominal pain. Px also complaining of bilateral leg pain. MEDICAL HISTORY: As above. SURGERIES: He has had head and neck reconstruction, knee surgery, lymphadenectomy, back surgery, dental surgery. HOME MEDICATIONS: Include Ventolin, Florinef, Flovent, DuoNeb, Synthroid, Zoloft, water. ALLERGIES: TERAZOSIN, NITRATES, ORGANIC. FAMILY HISTORY: Could not be obtained. . REVIEW OF SYSTEMS: Could not be reliably obtained. PHYSICAL EXAMINATION: VITAL SIGNS: Blood pressure was noted to be 91/50 later SBP 110s. Pulse rate 82, RR 26, temperature 38.7, 88 RA later 96 on 2 liters. GENERAL: Noted to be hard of hearing, min respiratory distress. SKIN: Normal color. HEAD, EYES, EARS, NOSE, AND THROAT: [place] palp conjunctivae, dry mucosa. old lp asymmetry. NECK: Short. LUNGS: Wheeze on the left. HEART: Regular rate and rhythm. ABDOMEN: Some distension. PEG tube noted. EXTREMITIES: No edema, no tenderness. NEUROLOGIC: hearing impairment. Old facial asymmetry. LABORATORY DATA: Hemoglobin 13.7, white cells 18, platelets 193. Sodium 140, K 3.3 chloride 107, CO2 28, BUN 33, creatinine 1.1, lactic acid was 2.2. ABG pH 7.47, pCO2 36, pO2 70, 94 on 2 liters. Chest x-ray as per interpretation, infiltrate on the left. EKG as per my interpretation : normal sinus rhythm, LAD, LAFB, no ischemia. ASSESSMENT AND PLAN: 1. Acute hypoxemic secondary to chronic obstructive pulmonary disease exacerbation secondary to CAP, left history of MRSA history of aspiration risk sp PEG tube failed outpatient treatment w/ Zpack 2. severe sepsis SIRS plus lactic acidosis/hypoxemia 2 to above 3. past tobacco abuse 4. history of orthostatic hypotension on fludrocortisone 5. tonsillar cancer status post surgery/chemoradiation, 6. hypothyroidism, euthyroid as of today's TSH 7. LE pain poss 2 to hypokalemia ro DVT 8. constipation PCU supplemental O2 CS, Vancomycin, Zosyn, nebs, prednisone course Pulmonary consult RE resp failure IVF, ff lactic acid facilitate fludrocortisone replace K LE extremity Dopplers ro DVT laxative DVT prophylaxis. Lovenox subQ. T FULL CODE PER , Miss Letty Canseco. She requests updates from providers at [phone]. Dictated: 12/17/[id number] Transcribed: 12/17/16 08 <Electronically signed by Tirso Guillory M.D.> Hospital Course Acute hypoxemic Respiratory Failure -secondary to chronic obstructive pulmonary disease exacerbation- -secondary to CAP, left base -Possible MRSA and/or aspiration pneumonia -with history of MRSA with sputum positive for MRSA.Previously sensitive to Tetracycline -history of aspiration risk sp PEG tube -failed outpatient treatment w/ Zpack -supplemental O2 -CS, Vancomycin, Zosyn, nebs, prednisone course -Appreciate Pulmonary input -Zosyn changed to Levaquin -clinically better -Appreciate ID input-May be transitioned to Doxycycline .Total course of 14 days -WCC is stable and CXR showing improvement Severe sepsis SIRS plus lactic acidosis/hypoxemia 2 to above Cultures taken Vancomycin and Levaquin Zyvox and Levaquin for now Discharged on Levaquin and Doxycycline Past tobacco abuse Tonsillar cancer status post surgery/chemoradiation, S/P PEG tube feeding for years Hypothyroidism, euthyroid as of today's TSH DVT prophylaxis. Lovenox subQ. LE extremity Dopplers ro DVT FULL CODE PER , Miss Letty Canseco. She requests updates from providers at [phone]. Discussed with her Will discharge today Total time spent on discharge = 35 minutes This includes examination of the patient, discharge planning, medication reconciliation, and communication with other providers. Discharge Instructions Date of Service Dec 19, 2016. Admission Reason for Admission: Respiratory Failure, Acute Discharge Discharge Diagnosis / Problem: pneumonia Discharge Goals Goal(s): Prevent Disease Progression Activity Recommendations Activity Limitations: resume your previous activity . Instructions / Follow-Up Instructions / Follow-Up Your doctor's office will call with appointment Current Hospital Diet Patient's current hospital diet: Discharge Diet Recommended Diet: N/A (PEG tube feeding ) Pending Studies Studies pending at discharge: no Medical Emergencies . Who to Call and When: Medical Emergencies: If at any time you feel your situation is an emergency, please call 911 immediately. . Non-Emergent Contact Non-Emergency issues call your: Primary Care Provider . Past History Medical & Surgical History: (1) Pneumonia (2) COPD exacerbation (3) Dyslipidemia (4) Gastroesophageal reflux disease (5) Tonsil carcinoma (6) Depression (7) S/P arthroscopic knee surgery (8) H/O esophagogastroduodenoscopy (9) S/P colonoscopy (10) s/p modified radical neck dissection . "Provider Documentation" section prepared by Deja Soto. . VTE Core Measure Inpt VTE Proph given/why not?: Enoxaparin (Lovenox)SQ <Electronically signed by Deja Soto M.D.> Additional Copies To Sanjiv Hart III, M.D.
[2017-02-23] MEDS ORDERED: PRED10TA PO (10:39)
[2017-05-20] MEDS ORDERED: CLX20 PO (09:34)
[2017-05-20] MEDS ORDERED: LORA-741 PEG (09:34)
[2017-05-20] MEDS ORDERED: FLUD0.1T PEG (09:34)
[2017-06-14] MEDS ORDERED: CEFU1TAB35 PEG (10:40)
[2017-06-14] MEDS ORDERED: DOXY100C76 PEG (10:40)
== END 2016-12-19 14:54 | disposition home or self-care (01) | DRG 871 ==
LOC: C.EDB 03:56 → C.2T 05:47 → ENRESERV 06:15
PROVIDERS: ADMIT Internal Medicine; ATTEND Internal Medicine
DX: R65.20 Severe sepsis without septic shock (principal); J96.01 Acute respiratory failure with hypoxia; J69.0 Pneumonitis due to inhalation of food and vomit; J15.212 Pneumonia due to Methicillin resistant Staphylococcus aureus; J44.1 Chronic obstructive pulmonary disease with (acute) exacerbation; J44.0 Chronic obstructive pulmonary disease with (acute) lower respiratory infection; E87.2 Acidosis; Z87.891 Personal history of nicotine dependence; Z85.819 Personal history of malignant neoplasm of unspecified site of lip, oral cavity, and pharynx; E03.9 Hypothyroidism, unspecified; Z83.3 Family history of diabetes mellitus; Z82.49 Family history of ischemic heart disease and other diseases of the circulatory system

== ENCOUNTER 2016-12-30 22:43 | Emergency (ER) | payer OTHER ==
[~2016-12-30] VITALS: Ht 180.3 cm; Wt 86.9 kg
[~2016-12-30 22:43] MED LIST changes: +DXY100 PEG; +LCTX PEG; +LEVO-459 PEG; +PRD20 PO; -PRED10TA PO; +PRED20TA PO; +UMEC1AER INH
[2016-12-30 22:46] VITALS: Ht 180.3 cm; Wt 86.9 kg
[2016-12-30] MEDS ORDERED: ALBUT/IPRATROP 3MG/0.5MG NEB 3 ML VIAL INH STA (23:24)
[2016-12-30 23:45] LABS: BASO % 0.3 %; BASO ABS # 0.03 K/uL (0-0.2); COMPLETE YES; EOS % 2.6 %; HEMATOCRIT 43.3 % (42-52); IG% 0.5 %; LYMPH ABS # 1.15 K/uL (1.2-3.4); MEAN CELL VOLUME 96.9 fL (80-100); MEAN CORPUSCULAR HEMOGLOBIN 32.2 pg (25-34); MEAN CORPUSCULAR HGB CONC 33.3 g/dl (32-36); MEAN PLATELET VOLUME 10.9 fL (7.4-10.4); MONO % 9.6 %; PLATELET COUNT 138 K/uL (130-400); RED BLOOD COUNT 4.47 M/uL (4.7-6.1); WHITE BLOOD COUNT 10.47 K/uL (4.8-10.8)
[2016-12-31 00:14] VITALS: TEMP 36.9
[2016-12-31 00:32] LABS: BLOOD UREA NITROGEN 22 mg/dl (7-18); BUN/CREATININE RATIO 20.4 (10-20); CALCIUM 8.7 mg/dl (8.5-10.1); CARBON DIOXIDE 29 mmol/L (21-32); CHLORIDE 104 mmol/L (98-107); GLUCOSE 134 mg/dl (70-99)
[2016-12-31 00:36] LABS: POTASSIUM 3.5 mmol/L (3.5-5.1); SODIUM 143 mmol/L (136-145)
[2016-12-31] MEDS ORDERED: OPTIRAY 320 IV PRN (00:45)
[2016-12-31] MEDS ORDERED: SULF800T23 PEG (01:47)
[2016-12-31] MEDS ORDERED: SULFAMETHOXAZOLE/TRIMETHOPRIM DS 800/160MG TAB PO STA (01:47)
--- NOTE | 2016-12-31 01:47 | EMERGENCY ROOM VISIT NOTE ---
History Report prepared by Rubén: Irma Shipley Under the Supervision of: Dr. Elías Pandey M.D. First contact with patient: 23:21 Chief Complaint: FEVER Stated Complaint: FEVER, CHILLS, COUGH, WHEEZING History of Present Illness The patient is a 71 year old male who presents to the Emergency Room with complaints of persistent cough starting 2 weeks ago. He was diagnosed with pneumonia 2 weeks ago and started on doxycycline. Despite finishing his antibiotics today, his condition does not seem to be improving. He reports fever , chills, and fatigue. They have not measured a fever. Source of History: patient, spouse/significant other Onset: 2 weeks ago Position: other (global) Quality: other (cough) Timing: other (persistent) Associated Symptoms: + fevers, + chills, + fatigue Review of Systems See HPI for pertinent positives & negatives. A total of 10 systems reviewed and were otherwise negative. 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 Surgical Problems: (1) H/O esophagogastroduodenoscopy (2) S/P arthroscopic knee surgery (3) S/P colonoscopy (4) s/p modified radical neck dissection Family History Cancer Diabetes mellitus Heart disease Hypertension Lung disease Social History Smoking Status: Former Smoker Alcohol Use: none Drug Use: none Housing Status: lives with significant other Occupation Status: disabled Current/Historical Medications Scheduled Doxycycline Hyclate (Doxycycline Hyclate), 100 MG PEG BID Enteral Nutrition Formula (Boost Plus), 2 CAN PEG QID Fludrocortisone Acetate (Florinef), 0.1-0.2 MG PEG DAILY Lactobacillus Acidophilus (Lactinex), 2 TAB PEG BID Levofloxacin (Levaquin), 500 MG PEG DAILY Levothyroxine Sodium (Synthroid), 100 MCG PEG QAM Prednisone (Prednisone), 40 MG PO TID Prednisone (Prednisone), 20 MG PO UD Sertraline (Zoloft), 50 MG PEG QAM Sulfa/Trimethoprim (Bactrim Ds 800MG/160MG), 1 TAB PEG BID Umeclidinium-Vilanterol (Anoro Ellipta 62.5-25 Mcg/INH), 1 PUFF INH DAILY [Water], 200 ML PEG QID Scheduled PRN Albuterol Hfa (Ventolin Hfa), 2 PUFF INH Q4 PRN for wheezing Fluticasone Propionate (Inhala (Flovent Diskus), 1 PUFFS INH BID PRN for SOB/ Wheezing Ipratropium-Albuterol (Duoneb), 1 TREATMENT INH QID PRN for SOB/Wheezing Allergies Coded Allergies: Nitrates, Organic (Verified Allergy, Unknown, DROP IN BP, 12/17/16) Terazosin (Verified Allergy, Unknown, 12/17/16) Physical Exam Vital Signs Date Time Temp Pulse Resp B/P (MAP) Pulse Ox O2 Delivery O2 Flow Rate FiO2 12/31/16 02:04 82 18 139/84 94 12/31/16 01:26 79 18 95 Room Air 12/31/16 00:14 36.9 84 16 114/66 94 Room Air 12/30/16 23:40 88 12/30/16 22:46 37.0 97 20 142/86 97 Room Air Physical Exam GENERAL: Patient is well appearing and in mild distress. HEENT: No acute trauma, normocephalic atraumatic, mucous membranes moist, no nasal congestion, no scleral icterus. NECK: No stridor, no adenopathy, no meningismus, trachea is midline. LUNGS: No dyspnea. Decreased breath sounds to bilateral lower bases with crackles and wheezing above. HEART: Regular rate and rhythm. No murmurs, rubs, gallops appreciated. ABDOMEN: Soft, nontender, bowel sounds positive, no masses appreciated, no peritonitis. BACK: No midline tenderness, no CVA tenderness EXTREMITIES: Normal motion all extremities, no cyanosis, no edema. NEUROLOGIC: Alert and oriented, right facial droop and slurred speech which are chronic. SKIN: No rash, no jaundice, no diaphoresis. Medical Decision & Procedures ER Provider Diagnostic Interpretation: X ray results are stated below per my interpretation: 1 view chest X-ray: No significant infiltrate. Questionable opacity in the left lower lobe which is improved from previous chest X-ray. No effusion. Normal cardiac border. Laboratory Results 12/30/16 23:30 Red Blood Count 4.47, Mean Corpuscular Volume 96.9, Mean Corpuscular Hemoglobin 32.2, Mean Corpuscular Hemoglobin Concent 33.3, Mean Platelet Volume 10.9, Neutrophils (%) (Auto) 76.0, Lymphocytes (%) (Auto) 11.0, Monocytes (%) (Auto) 9.6, Eosinophils (%) (Auto) 2.6, Basophils (%) (Auto) 0.3, Neutrophils # (Auto) 7.96, Lymphocytes # (Auto) 1.15, Monocytes # (Auto) 1.01, Eosinophils # (Auto) 0.27, Basophils # (Auto) 0.03 12/30/16 23:30 Test 12/30/16 23:30 12/30/16 23:37 White Blood Count 10.47 K/uL (4.8-10.8) Red Blood Count 4.47 M/uL (4.7-6.1) Hemoglobin 14.4 g/dL (14.0-18.0) Hematocrit 43.3 % (42-52) Mean Corpuscular Volume 96.9 fL (80-100) Mean Corpuscular Hemoglobin 32.2 pg (25-34) Mean Corpuscular Hemoglobin Concent 33.3 g/dl (32-36) Platelet Count 138 K/uL (130-400) Mean Platelet Volume 10.9 fL (7.4-10.4) Neutrophils (%) (Auto) 76.0 % Lymphocytes (%) (Auto) 11.0 % Monocytes (%) (Auto) 9.6 % Eosinophils (%) (Auto) 2.6 % Basophils (%) (Auto) 0.3 % Neutrophils # (Auto) 7.96 K/uL (1.4-6.5) Lymphocytes # (Auto) 1.15 K/uL (1.2-3.4) Monocytes # (Auto) 1.01 K/uL (0.11-0.59) Eosinophils # (Auto) 0.27 K/uL (0-0.5) Basophils # (Auto) 0.03 K/uL (0-0.2) RDW Standard Deviation 50.4 fL (36.4-46.3) RDW Coefficient of Variation 14.2 % (11.5-14.5) Immature Granulocyte % (Auto) 0.5 % Immature Granulocyte # (Auto) 0.05 K/uL (0.00-0.02) Anion Gap 10.0 mmol/L (3-11) Est Creatinine Clear Calc Drug Dose 67.5 ml/min Estimated GFR () 79.0 Estimated GFR (Non- 68.1 BUN/Creatinine Ratio 20.4 (10-20) Calcium Level 8.7 mg/dl (8.5-10.1) Total Creatine Kinase 46 U/L (39-308) Creatine Kinase MB < 0.5 ng/ml (0.5-3.6) Creatine Kinase MB Ratio (0-3.0) Troponin I < 0.015 ng/ml (0-0.045) Chemistry Specimen Hemolysis Bedside Lactic Acid Venous 1.43 mmol/L (0.90-1.70) Laboratory results as reviewed by me. Medications Administered Medications (Trade) Dose Ordered Sig/John Route Start Time Stop Time Status Last Admin Dose Admin Albuterol/ Ipratropium (Duoneb) 3 ml NOW STAT INH 12/30/16 23:24 12/30/16 23:26 DC 12/30/16 23:31 3 ML Trimethoprim/ Sulfamethoxazole (Septra Ds 800/ 160MG Tab) 1 tab NOW STAT PO 12/31/16 01:47 12/31/16 01:48 DC 12/31/16 01:56 1 TAB ECG Indication: SOB/dyspnea Rate (beats per minute): 95 Rhythm: normal sinus Findings: no acute ischemic change, no ectopy ED Course 2321: The patient was evaluated in room A12B. A complete history and physical exam was performed. 2324: Duoneb 3 ml INH. 0032: I reevaluated the patient. He feels better, but the says that he sounds much worse and needs a CT of his chest. She feels something is very wrong with him and he is too weak. Medical Decision Differential: Infectious, Reactive Airway Disease, Pneumonia, Pneumothorax, COPD , CHF, ACS, Pulmonary Embolism, MSK, GI, Dissection, amongst other etiologies entertained. Medication Reconciliation: I attest that I have personally reviewed the patient 's current medication list. Blood Pressure Screening: Patient was found to have a slightly elevated blood pressure due to circumstances. I do not believe that the patient requires hypertension monitoring. 71 yr old male arrives with complaint of cough and shortness of breath. CXR not very impressive and with recent admissions, continued SHOB per will go ahead with CT PE. Not Dimer candidate given recent infection and history. CT with some hazy findings RULobe but otherwise negative. He is not septic, he is breathing comfortably and looks well. Stable and in no distress. notes patient was advised against more prednisone. Previous MRSA in lungs which is concerned possible cause of this infection (though may just be scarring). Previously tolerated bactrim and MRSA susceptible. As just on Doxy/Levaquin will place on bactrim for the week with follow up with PCP. Breathing comfortably and in no distress. Will do QID nebs at home. Impression Primary Impression: Cough Additional Impression: right upper lobe haziness Scribe Attestation The scribe's documentation has been prepared under my direction and personally reviewed by me in its entirety. I confirm that the note above accurately reflects all work, treatment, procedures, and medical decision making performed by me. Departure Information Dispostion Home / Self-Care Prescriptions Sulfa/Trimethoprim (Bactrim Ds 800MG/160MG) Tab 1 TAB PEG BID, #14 TAB Prov: Elías Pandey M.D. 12/31/16 Referrals Sanjiv Hart III, M.D. (PCP) Patient Instructions [facility] Additional Instructions The CT scan shows an area that may be infection in the right upper lobe. With labs and vital signs looking good it seems reasonable trying treating this as an outpatient. We will try Bactrim. Return if confusion, worsening cough/shob, weakness or other concerns. Follow up with primary provider in the next few days. Problem Qualifiers
[2016-12-31 02:04] VITALS: BP 139/84; PULSE 82; O2SAT 94
--- NOTE | 2016-12-31 07:16 | DIAGNOSTIC IMAGING REPORT ---
CHEST ONE VIEW PORTABLE CLINICAL HISTORY: Cough, shortness of breath. COMPARISON STUDY: December 19, 2016 FINDINGS: There is pulmonary emphysema. The heart is normal in size. There is no failure. There is no lobar consolidation. There are linear left basilar opacities, likely atelectatic.[ IMPRESSION: Improving left basal airspace opacities with residual linear opacities, likely atelectatic Electronically signed by: Kieran Flores M.D. 12/31/2016 7:15 AM Dictated Date/Time: 12/31/2016 7:14 AM
--- NOTE | 2016-12-31 07:59 | DIAGNOSTIC IMAGING REPORT ---
CHEST CTA for PULMONARY ARTERIES CT DOSE: 575.56 mGycm HISTORY: Atypical chest pain. Fever. TECHNIQUE: Multiaxial CT images of the chest were performed following the intravenous administration of contrast to evaluate the pulmonary arteries. Maximal intensity projection images were also obtained. COMPARISON STUDY: Chest CTA 01/15/2016. FINDINGS: A gastrostomy tube is in good position. No pleural or pericardial effusions. Motion artifact results in nondiagnostic evaluation of the bilateral lower lobe subsegmental pulmonary arteries. However, the remaining pulmonary arteries show no filling defects to suggest pulmonary embolus. No evidence for an aortic dissection. Subcarinal lymph node is decreased in size. No significant spinal or hilar lymphadenopathy. The visualized liver and adrenal glands are unremarkable. Question of minimal fat stranding at the pancreatic tail. Stable 1.8 cm splenic hypodense lesion. No pneumothorax. Stable biapical scarlike densities. A cluster of calcified granulomas seen within the base of the right middle lobe. There are few punctate calcified granuloma seen within the right lower lobe. Patchy groundglass and linear densities within the bases of the bilateral lower lobes and lingula. These favor atelectasis. Small focal hazy airspace opacity within the right upper lobe posteriorly which measures 1.3 cm. IMPRESSION: 1. No evidence for pulmonary embolus. 2. Bibasilar linear and patchy groundglass densities favor atelectasis. 3. A 1.3 cm focal hazy opacity within the right upper lobe posteriorly. This favors mild inflammatory/infectious change. [address] follow-up can be performed to ensure resolution. 4. Question of fat stranding surrounding the pancreatic tail. This raises the possibility of a mild acute pancreatitis. Recommend correlation with pancreatic enzymes. Electronically signed by: Rylan Archuleta M.D. 12/31/2016 7:57 AM Dictated Date/Time: 12/31/2016 7:40 AM
[2017-02-23] MEDS ORDERED: PRED10TA PO (10:39)
[2017-04-23] MEDS ORDERED: TMF75 PO (12:57)
[2017-05-20] MEDS ORDERED: LORA-741 PEG (09:34)
[2017-05-20] MEDS ORDERED: CLX20 PO (09:34)
[2017-05-20] MEDS ORDERED: FLUD0.1T PEG (09:34)
[2017-06-14] MEDS ORDERED: CEFU1TAB35 PEG (10:40)
[2017-06-14] MEDS ORDERED: DOXY100C76 PEG (10:40)
== END 2016-12-31 02:05 | disposition home or self-care (01) ==
LOC: C.EDB 22:44 → C.EDA 12-31 02:05
DX: R05 Cough (principal); R94.2 Abnormal results of pulmonary function studies; Z86.14 Personal history of Methicillin resistant Staphylococcus aureus infection; E78.5 Hyperlipidemia, unspecified; J44.9 Chronic obstructive pulmonary disease, unspecified; J45.909 Unspecified asthma, uncomplicated; F32.9 Major depressive disorder, single episode, unspecified; K31.84 Gastroparesis; K21.9 Gastro-esophageal reflux disease without esophagitis; Z98.890 Other specified postprocedural states; Z96.659 Presence of unspecified artificial knee joint; Z87.891 Personal history of nicotine dependence; Z79.899 Other long term (current) drug therapy; Z88.8 Allergy status to other drugs, medicaments and biological substances; Z80.9 Family history of malignant neoplasm, unspecified; Z83.3 Family history of diabetes mellitus; Z82.49 Family history of ischemic heart disease and other diseases of the circulatory system

== ENCOUNTER 2017-01-17 21:08 | Emergency (ER) | payer OTHER ==
[~2017-01-17] VITALS: Ht 180.3 cm; Wt 85.5 kg
[~2017-01-17 21:08] MED LIST changes: +SULF800T23 PEG
[2017-01-17 21:13] VITALS: Ht 180.3 cm; Wt 85.5 kg
[2017-01-17 21:59] VITALS: O2SAT 97
[2017-01-17 22:21] LABS: BASO % 0.2 %; BASO ABS # 0.03 K/uL (0-0.2); COMPLETE YES; EOS % 1.8 %; HEMATOCRIT 44.5 % (42-52); IG% 0.2 %; LYMPH % 7.9 %; LYMPH ABS # 1.08 K/uL (1.2-3.4); MEAN CELL VOLUME 96.3 fL (80-100); MEAN CORPUSCULAR HEMOGLOBIN 31.8 pg (25-34); MEAN PLATELET VOLUME 11.1 fL (7.4-10.4); MONO % 6.4 %; NEUT % 83.5 %; PLATELET COUNT 204 K/uL (130-400); RED BLOOD COUNT 4.62 M/uL (4.7-6.1); WHITE BLOOD COUNT 13.68 K/uL (4.8-10.8)
[2017-01-17 22:35] LABS: BUN/CREATININE RATIO 24.8 (10-20); CALCIUM 9.1 mg/dl (8.5-10.1); CREATININE 1.1 mg/dl (0.60-1.40); POTASSIUM 3.9 mmol/L (3.5-5.1)
--- NOTE | 2017-01-17 22:40 | DIAGNOSTIC IMAGING REPORT ---
SINGLE VIEW CHEST CLINICAL HISTORY: Dyspnea. FINDINGS: An AP, portable, upright chest radiograph is compared to study dated 12/30/2016 Correlation is made with chest CT dated 12/31/2016. The examination is degraded by portable technique, apical lordotic positioning, and patient rotation. The heart is mildly enlarged and there is atherosclerotic calcification of the thoracic aorta. The pulmonary vasculature is noncongested. Chronic interstitial thickening and biapical scarring are again noted. Bibasilar airspace opacities are similar to previous. No large pleural effusion or pneumothorax is seen. The skeletal structures are osteopenic. The bony thorax is grossly intact. IMPRESSION: 1. Mild cardiac enlargement without radiographic evidence of congestive failure. 2. Bibasilar airspace opacities are similar to previous and likely represent scarring/atelectasis. Correlate clinically for evidence of a superimposed infectious/inflammatory pneumonitis. Electronically signed by: Landen Hopkins M.D. 01/17/2017 10:39 PM Dictated Date/Time: 01/17/2017 10:38 PM
--- NOTE | 2017-01-17 23:42 | EMERGENCY ROOM VISIT NOTE ---
History Report prepared by Rubén: Irma Shipley Under the Supervision of: Dr. Jack Gale M.D. First contact with patient: 22:06 Chief Complaint: RESPIRATORY PROBLEMS Stated Complaint: SHORT OF BREATH,WHEEZING Nursing Triage Summary: Pt and pt's reports he was dx with pneumonia 2 weeks ago in the ER and sent home with oral antibiotics. reports pt "never got better on the antibioitcs". Pt reports a dry cough, SOB, and wheezing. states the pt spiked a fever of 100 F at home and therefore she brought him in. History of Present Illness The patient is a 71 year old male who presents to the Emergency Room with complaints of persistent SOB starting 2 weeks ago. He was in the ED 2 weeks ago and diagnosed with pneumonia. He was placed on Bactrim, but switched to doxycycline by his PCP. He does not seem to be improving. He has been using his inhaler to no significant relief. The patient has been wheezing and SOB. He is still fatigued and spending more time in bed. He has not been coughing. He does not have diarrhea. He has had a scab at the base of his neck for several months. He has a history of tonsil cancer. He has had a feeding tube for 6 years now. The tube is working well. He quit smoking 30 years ago. He has a history of MRSA. He wears oxygen at home only when he is sick. Source of History: patient, spouse/significant other Onset: 2 weeks ago Position: other (global) Quality: other (SOB) Timing: other (persistent) Associated Symptoms: + fatigue, No cough, No diarrhea Note: Pt reports wheezing. Review of Systems All systems have been listed, reviewed, and are negative other than those previously mentioned. Please see Additional Medical History Sheet. 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 Surgical Problems: (1) H/O esophagogastroduodenoscopy (2) S/P arthroscopic knee surgery (3) S/P colonoscopy (4) s/p modified radical neck dissection Family History Cancer Diabetes mellitus Heart disease Hypertension Lung disease Social History Smoking Status: Never Smoker Alcohol Use: none Drug Use: none Housing Status: lives with significant other Occupation Status: disabled Current/Historical Medications Scheduled Doxycycline Hyclate (Doxycycline Hyclate), 100 MG PEG BID Enteral Nutrition Formula (Boost Plus), 2 CAN PEG QID Fludrocortisone Acetate (Florinef), 0.1-0.2 MG PEG DAILY Levothyroxine Sodium (Synthroid), 100 MCG PEG QAM Sertraline (Zoloft), 50 MG PEG QAM Umeclidinium-Vilanterol (Anoro Ellipta 62.5-25 Mcg/INH), 1 PUFF INH DAILY [Water], 200 ML PEG QID Scheduled PRN Albuterol Hfa (Ventolin Hfa), 2 PUFF INH Q4 PRN for wheezing Fluticasone Propionate (Inhala (Flovent Diskus), 1 PUFFS INH BID PRN for SOB/ Wheezing Allergies Coded Allergies: Nitrates, Organic (Verified Allergy, Unknown, DROP IN BP, 01/17/17) Terazosin (Verified Allergy, Unknown, 01/17/17) Sulfamethoxazole w/Trimethoprim (Unverified Adverse Reaction, Severe, ITCHING, 01/17/17) Physical Exam Vital Signs Date Time Temp Pulse Resp B/P (MAP) Pulse Ox O2 Delivery O2 Flow Rate FiO2 01/17/17 23:53 38.1 83 21 110/69 93 Room Air 01/17/17 22:55 38.0 01/17/17 22:38 87 22 93 Room Air 01/17/17 22:33 81 21 95 Room Air 01/17/17 22:30 129/81 01/17/17 22:19 89 22 94 Room Air 01/17/17 22:08 88 25 96 Nasal Cannula 2.5 01/17/17 22:00 121/82 01/17/17 21:59 97 Nasal Cannula 2.0 01/17/17 21:40 96 Nasal Cannula 2.5 01/17/17 21:40 127/85 01/17/17 21:39 96 Nasal Cannula 2.5 01/17/17 21:38 93 23 97 Nasal Cannula 2.5 01/17/17 21:13 37.5 99 24 122/76 94 Room Air Physical Exam GENERAL: Patient awake, alert, oriented x 3. Patient follows commands. Patient does not appear toxic. Patient is adequately hydrated and well- nourished. SKIN: No erythema, pallor, cyanosis or rash. HEENT: Normal head, pupils equal, reactive to light and accommodation. Ears normal. Deformity of mouth, posterior pharynx and neck due to surgery. Neck: Without adenopathy, no neck vein distention. Small lesion at base of scalp. LUNGS: Few faint expiratory wheezes. HEART: No murmurs. No gallops. No rubs BACK: No deformity or signs of recent trauma. ABDOMEN: Feeding tube in place. No masses, no rebound, no hepatomegaly or splenomegaly. EXTREMITIES: No signs of trauma or infection. NEUROLOGIC: Cranial nerves II-XII within normal limits. No gross motor sensory function deficits. Medical Decision & Procedures ER Provider Diagnostic Interpretation: X ray results are stated below per my interpretation and the radiologist's interpretation. SINGLE VIEW CHEST CLINICAL HISTORY: Dyspnea. FINDINGS: An AP, portable, upright chest radiograph is compared to study dated 12/30/2016 Correlation is made with chest CT dated 12/31/2016. The examination is degraded by portable technique, apical lordotic positioning, and patient rotation. The heart is mildly enlarged and there is atherosclerotic calcification of the thoracic aorta. The pulmonary vasculature is noncongested. Chronic interstitial thickening and biapical scarring are again noted. Bibasilar airspace opacities are similar to previous. No large pleural effusion or pneumothorax is seen. The skeletal structures are osteopenic. The bony thorax is grossly intact. IMPRESSION: 1. Mild cardiac enlargement without radiographic evidence of congestive failure. 2. Bibasilar airspace opacities are similar to previous and likely represent scarring/atelectasis. Correlate clinically for evidence of a superimposed infectious/inflammatory pneumonitis. Electronically signed by: Landen Hopkins M.D. 01/17/2017 10:39 PM Dictated Date/Time: 01/17/2017 10:38 PM Laboratory Results 01/17/17 21:40 Red Blood Count 4.62, Mean Corpuscular Volume 96.3, Mean Corpuscular Hemoglobin 31.8, Mean Corpuscular Hemoglobin Concent 33.0, Mean Platelet Volume 11.1, Neutrophils (%) (Auto) 83.5, Lymphocytes (%) (Auto) 7.9, Monocytes (%) (Auto) 6.4, Eosinophils (%) (Auto) 1.8, Basophils (%) (Auto) 0.2, Neutrophils # (Auto) 11.41, Lymphocytes # (Auto) 1.08, Monocytes # (Auto) 0.88, Eosinophils # (Auto) 0.25, Basophils # (Auto) 0.03 01/17/17 21:40 Test 01/17/17 21:40 01/17/17 21:42 White Blood Count 13.68 K/uL (4.8-10.8) Red Blood Count 4.62 M/uL (4.7-6.1) Hemoglobin 14.7 g/dL (14.0-18.0) Hematocrit 44.5 % (42-52) Mean Corpuscular Volume 96.3 fL (80-100) Mean Corpuscular Hemoglobin 31.8 pg (25-34) Mean Corpuscular Hemoglobin Concent 33.0 g/dl (32-36) Platelet Count 204 K/uL (130-400) Mean Platelet Volume 11.1 fL (7.4-10.4) Neutrophils (%) (Auto) 83.5 % Lymphocytes (%) (Auto) 7.9 % Monocytes (%) (Auto) 6.4 % Eosinophils (%) (Auto) 1.8 % Basophils (%) (Auto) 0.2 % Neutrophils # (Auto) 11.41 K/uL (1.4-6.5) Lymphocytes # (Auto) 1.08 K/uL (1.2-3.4) Monocytes # (Auto) 0.88 K/uL (0.11-0.59) Eosinophils # (Auto) 0.25 K/uL (0-0.5) Basophils # (Auto) 0.03 K/uL (0-0.2) RDW Standard Deviation 49.1 fL (36.4-46.3) RDW Coefficient of Variation 14.0 % (11.5-14.5) Immature Granulocyte % (Auto) 0.2 % Immature Granulocyte # (Auto) 0.03 K/uL (0.00-0.02) Anion Gap 8.0 mmol/L (3-11) Est Creatinine Clear Calc Drug Dose 67.5 ml/min Estimated GFR () 79.0 Estimated GFR (Non- 68.1 BUN/Creatinine Ratio 24.8 (10-20) Calcium Level 9.1 mg/dl (8.5-10.1) Chemistry Specimen Hemolysis Bedside Lactic Acid Venous 1.44 mmol/L (0.90-1.70) Laboratory results as stated above per my review. Medications Administered Medications (Trade) Dose Ordered Sig/John Route Start Time Stop Time Status Last Admin Dose Admin Acetaminophen/ Hydrocodone Bitart ([place] 5/325 Tab) 2 tab ONE ONCE PO 01/17/17 23:45 01/17/17 23:46 DC 01/17/17 23:53 2 TAB ECG Indication: SOB/dyspnea Rate (beats per minute): 93 Rhythm: sinus rhythm Findings: no acute ischemic change, left axis deviation, no ectopy ED Course 2207: Past medical records reviewed. The patient was evaluated in room A4B. A complete history and physical examination was performed. 2: I reevaluated the patient. He is having some back pain which is chronic. I discussed today's findings with him and his . They verbalized agreement of the treatment plan. He was discharged home. 5: Hydrocodone Bitart/Acetaminophen 2 tab PO. Medical Decision Nurses notes reviewed. Medical history sheet reviewed. Differential diagnosis includes but is not limited to: pneumonia, bronchitis, anemia. Patient and his are concerned because he is not feeling much better since his diagnosis of pneumonia. The patient is currently taking doxycycline. He had an apparent reaction to Bactrim. Multiple labs and imaging were obtained. Please see above. The patient's chest x-ray is not significantly changed from 1 month ago. White count is slightly elevated but it has been higher in the past. The patient was given [place] for his chronic back pain. He will continue taking doxycycline. He is to follow-up with his family physician sometime within the next week. Medication Reconciliation: I attest that I have personally reviewed the patient' s current medication list. Blood pressure Screening: Patient was found to have normal blood pressure on screening and does not require follow up. Impression Primary Impression: Pneumonitis Scribe Attestation The scribe's documentation has been prepared under my direction and personally reviewed by me in its entirety. I confirm that the note above accurately reflects all work, treatment, procedures, and medical decision making performed by me. Departure Information Dispostion Home / Self-Care Referrals Sanjiv Hart III, M.D. (PCP) Patient Instructions My [facility] Additional Instructions Continue doxycycline as prescribed. Follow-up with your family physician within the next week. Continue all of your current medications as prescribed.
[2017-01-17] MEDS ORDERED: HYDROCODONE/ACETAMOPHEN 5/325MG TAB PO ONE (23:45)
[2017-01-17 23:53] VITALS: BP 110/69; PULSE 83; TEMP 38.1; O2SAT 93
[2017-02-23] MEDS ORDERED: PRED10TA PO (10:39)
[2017-04-23] MEDS ORDERED: TMF75 PO (12:57)
== END 2017-01-18 | disposition home or self-care (01) ==
LOC: C.EDB 21:10 → C.EDA 01-18
DX: J18.9 Pneumonia, unspecified organism (principal); J45.909 Unspecified asthma, uncomplicated; E78.5 Hyperlipidemia, unspecified; Z83.3 Family history of diabetes mellitus; Z82.49 Family history of ischemic heart disease and other diseases of the circulatory system

== ENCOUNTER 2017-01-31 10:47 | Emergency (ER) | payer OTHER ==
[~2017-01-31] VITALS: Ht 170.2 cm; Wt 88.0 kg
[~2017-01-31 10:47] MED LIST changes: -IPRASOL4 INH; -LCTX PEG; -LEVO-459 PEG; -PRD20 PO; -PRED20TA PO; -SULF800T23 PEG
[2017-01-31 10:55] VITALS: TEMP 36.6; Ht 170.2 cm; Wt 88.0 kg
[2017-01-31] MEDS ORDERED: SILVER NITR/POTASSIUM NITRATE 10 APPLICATOR PACK EXT STA (11:31)
--- NOTE | 2017-01-31 11:33 | EMERGENCY ROOM VISIT NOTE ---
ED Visit Note First contact with patient: 11:02 CHIEF COMPLAINT: Nosebleed HISTORY OF PRESENT ILLNESS: This 71-year-old male patient presents to the emergency department complaining of a nosebleed which began approximately 0600 hrs this morning. The patient does have a history of frequent nosebleeds, presenting similarly to this. He has had tach and cauterized in the past. The patient states after initially noticing the nosebleed upon sitting up, he laid down, and the bleeding improved. He states he then sat up and the bleeding started again. The patient states this went on and off for approximately 5 hours, prior to being seen in the emergency department. The patient denies recent illness, including sinus congestion, dizziness, lightheadedness, nausea or vomiting. He states he does have a mild headache, however states this is chronic. The patient does follow with [facility], and has had further evaluation done regarding nosebleeds. He has been advised to use Vaseline and run a humidifier, especially at nighttime. The patient states he has been doing this and has not had a nosebleed until today. REVIEW OF SYSTEMS: A 6-system review of systems was performed with positives and pertinent negatives listed in the history of present illness. All other systems were reviewed and are negative. ALLERGIES: Bactrim, terazosin, nitrates MEDICATIONS: Doxycycline, Synthroid, Florinef, Zoloft, Flovent Diskus, boost, Ventolin, Anoro PMH: Hypotension, COPD, hypothyroidism, cancer of the tonsils, anxiety. The patient does have a feeding tube due to previous history of cancer. SOCIAL HISTORY: The patient lives locally with his family. He denies drug, alcohol, tobacco use. PHYSICAL EXAM: VITALS: Vitals are noted on the nurse's note and reviewed by myself. Vital signs stable. GENERAL: 71-year-old male, in no acute distress, nondiaphoretic, well-developed well-nourished. SKIN: The skin was without rashes, erythema, edema, or bruising. There is no tenting of the skin. Capillary reflex less than 2 seconds. HEAD: Normocephalic atraumatic. EARS: External auditory canals clear, tympanic membranes pearly ferguson without erythema or effusion bilaterally. EYES: Pupils equal round and reactive to light and accommodation. Conjunctivae without injection, sclerae without icterus. Extraocular movements intact. NOSE: Patent, turbinates without inflammation. No active hemorrhage, however, a significant amount of dried blood. The patient states the nose was actively bleeding prior to examination. It does appear that the bleeding was coming from the anterior chamber in the right nostril. No sinus tenderness. MOUTH: Mucous membranes moist. Tonsils are not enlarged. Pharynx without erythema or exudate. Uvula midline. Airway patent. Tongue does not deviate. NECK: Supple without nuchal rigidity. No lymphadenopathy. No thyromegaly. Cervical spine is nontender. No JVD. HEART: Regular rate and rhythm without murmurs gallops or rubs. LUNGS: Clear to auscultation bilaterally without wheezes, rales or rhonchi. No dullness to percussion. No retractions or accessory muscle use. NEURO: Patient was alert and oriented to person place and time. Normal sensation to light and sharp touch. Deep tendon reflexes 2+ throughout. No focal neurological deficits. EMERGENCY DEPARTMENT COURSE: The patient was seen and evaluated as above. Area of bleeding in anterior chamber and septum of right nostril was cauterized utilizing Silver Nitrate swabs. Bleeding was well-controlled with no further active bleeding noted. I discussed discharge instructions with the patient and his , and he was discharged home in good condition. DIFFERENTIAL DIAGNOSIS: epistaxis, traumatic injury, acute sinusitis, malignancy , allergic rhinitis, drug-use, NSAID Overdose, blood thinner-induced epistaxis, and others. DIAGNOSIS: Epistaxis DISCHARGE INSTRUCTIONS & TREATMENT: Please avoid blowing your nose today. You may wipe it with a Kleenex, however try to avoid blowing. Please follow-up with your ear nose and throat doctor tomorrow for further evaluation and management of frequent nosebleeds. Return to the emergency department for increased hemorrhage or bleeding from nose, lightheadedness, dizziness, fatigue, lethargy, or other associated symptoms. Please follow-up with your PCP this week regarding your trip to the emergency department. 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 Surgical Problems: (1) H/O esophagogastroduodenoscopy Status: Resolved (2) S/P arthroscopic knee surgery Status: Resolved (3) S/P colonoscopy Status: Resolved (4) s/p modified radical neck dissection Permanent Comment: 2007 [facility] [place] tonsillar Ca Status: Resolved Current/Historical Medications Scheduled Enteral Nutrition Formula (Boost Plus), 2 CAN PEG QID Fludrocortisone Acetate (Florinef), 0.1-0.2 MG PEG DAILY Levothyroxine Sodium (Synthroid), 100 MCG PEG QAM Sertraline (Zoloft), 50 MG PEG QAM Umeclidinium-Vilanterol (Anoro Ellipta 62.5-25 Mcg/INH), 1 PUFF INH DAILY [Water], 200 ML PEG QID Scheduled PRN Albuterol Hfa (Ventolin Hfa), 2 PUFF INH Q4 PRN for wheezing Fluticasone Propionate (Inhala (Flovent Diskus), 1 PUFFS INH BID PRN for SOB/ Wheezing Allergies Coded Allergies: Nitrates, Organic (Verified Allergy, Unknown, DROP IN BP, 01/31/17) Terazosin (Verified Allergy, Unknown, 01/31/17) Sulfamethoxazole w/Trimethoprim (Unverified Adverse Reaction, Severe, ITCHING, 01/31/17) Vital Signs Date Time Temp Pulse Resp B/P (MAP) Pulse Ox O2 Delivery O2 Flow Rate FiO2 01/31/17 11:56 71 20 128/62 97 01/31/17 10:55 36.6 66 20 132/51 97 Room Air Departure Information Impression Primary Impression: Nasal bleeding Dispostion Home / Self-Care Condition GOOD Referrals Sanjiv Hart III, M.D. (PCP) Ramon Vela M.D. Patient Instructions ED Nosebleed, [facility] Additional Instructions Please avoid blowing your nose today. You may wipe it with a Kleenex, however try to avoid blowing. Please follow-up with your ear nose and throat doctor tomorrow for further evaluation and management of frequent nosebleeds. Return to the emergency department for increased hemorrhage or bleeding from nose, lightheadedness, dizziness, fatigue, lethargy, or other associated symptoms. Please follow-up with your PCP this week regarding your trip to the emergency department.
[2017-01-31 11:56] VITALS: BP 128/62; PULSE 71; O2SAT 97
== END 2017-01-31 11:56 | disposition home or self-care (01) ==
LOC: C.EDB 10:49 → C.EDD 11:56
DX: R04.0 Epistaxis (principal); J44.9 Chronic obstructive pulmonary disease, unspecified; E03.9 Hypothyroidism, unspecified; Z85.818 Personal history of malignant neoplasm of other sites of lip, oral cavity, and pharynx; Z93.1 Gastrostomy status; J45.909 Unspecified asthma, uncomplicated; F32.9 Major depressive disorder, single episode, unspecified; Z79.899 Other long term (current) drug therapy; Z98.890 Other specified postprocedural states

== ENCOUNTER 2017-02-05 22:54 | Emergency (ER) | payer OTHER ==
[~2017-02-05] VITALS: Ht 181.6 cm; Wt 88.4 kg
[~2017-02-05 22:54] MED LIST changes: -DXY100 PEG
[2017-02-05 22:58] VITALS: Ht 181.6 cm; Wt 88.4 kg
[2017-02-05] MEDS ORDERED: RABIES IMMUNE GLOBULIN (HUMAN) 150 INTER.UNIT/ML 2 ML VIAL IM. ONE (23:30)
[2017-02-05] MEDS ORDERED: RABIES VACCINE (IMOVAX) HUMAN DIPL CELL 2.5 INTER.UNIT/ML SYR IM. ONE (23:30)
[2017-02-06] MEDS ORDERED: AMOX875T PO (00:21)
[2017-02-06 00:33] VITALS: BP 159/60; PULSE 60; TEMP 36.7; O2SAT 97
--- NOTE | 2017-02-06 23:26 | EMERGENCY ROOM VISIT NOTE ---
History First contact with patient: 23:04 Chief Complaint: RABIES VACCINE Stated Complaint: RABIES SHOT History of Present Illness The patient is a 71 year old male who presents to the Emergency Room with complaints of dog bite to the right lower leg. The patient states that the animal is owned by a friend of his sons. The injury occurred about 48 hours ago and the patient went to his primary care physician yesterday. The PCP started the patient on Augmentin rabies shots. The patient delayed coming to the ER until he was able to confirm the rabies status of the animal. The patient determined that the animal did not have its rabies shots, and they are not confident there able to quarantine the animal. The patient does not have fever or chills. He is reportedly up-to-date on his tetanus. He does not have other complaints. Review of Systems More than 10 systems were reviewed and otherwise negative with the exception of history of present illness. 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 Surgical Problems: (1) H/O esophagogastroduodenoscopy (2) S/P arthroscopic knee surgery (3) S/P colonoscopy (4) s/p modified radical neck dissection Family History Cancer Diabetes mellitus Heart disease Hypertension Lung disease Social History Smoking Status: Former Smoker Alcohol Use: none Drug Use: none Housing Status: lives with significant other Occupation Status: disabled Current/Historical Medications Scheduled Amoxicillin & Pot Clavulanate (Augmentin 875-125 mg), 1 TAB PO BID Enteral Nutrition Formula (Boost Plus), 2 CAN PEG QID Fludrocortisone Acetate (Florinef), 0.1-0.2 MG PEG DAILY Levothyroxine Sodium (Synthroid), 100 MCG PEG QAM Sertraline (Zoloft), 50 MG PEG QAM Umeclidinium-Vilanterol (Anoro Ellipta 62.5-25 Mcg/INH), 1 PUFF INH DAILY [Water], 200 ML PEG QID Scheduled PRN Albuterol Hfa (Ventolin Hfa), 2 PUFF INH Q4 PRN for wheezing Fluticasone Propionate (Inhala (Flovent Diskus), 1 PUFFS INH BID PRN for SOB/ Wheezing Allergies Coded Allergies: Nitrates, Organic (Verified Allergy, Unknown, DROP IN BP, 01/31/17) Terazosin (Verified Allergy, Unknown, 01/31/17) Sulfamethoxazole w/Trimethoprim (Unverified Adverse Reaction, Severe, ITCHING, 01/31/17) Physical Exam Vital Signs Date Time Temp Pulse Resp B/P (MAP) Pulse Ox O2 Delivery O2 Flow Rate FiO2 02/06/17 00:33 36.7 60 16 159/60 97 02/05/17 22:58 36.9 67 20 164/101 95 Room Air Pain Rating (0-10): 0 Physical Exam VITALS: Vitals are noted on the nurse's note and reviewed by myself. Vital signs stable. GENERAL: Well-developed, well-nourished, white male, who is in no acute distress and resting comfortably. Patient is cooperative with the examination. HEART: Regular rate and rhythm without murmurs gallops or rubs. LUNGS: Clear to auscultation bilaterally without wheezes, rales or rhonchi. No retractions or accessory muscle use. MUSCULOSKELETAL: Well healing wounds appreciated to the right lower extremity consistent with a dog bite. There is no cellulitis or abscess. No drainage or discharge. No palpable cords or lymphangitic streaking. Medical Decision & Procedures Medications Administered Medications (Trade) Dose Ordered Sig/John Route Start Time Stop Time Status Last Admin Dose Admin Rabies Vaccine Human Diploid Cell (Imovax Rabies) 2.5 interunit ONCE ONCE IM. 02/05/17 23:30 02/05/17 23:31 DC 02/05/17 23:59 2.5 INTERUNIT Rabies Immune Globulin (Imogam Rabies Inj) 1,768 interunit ONCE ONCE IM. 02/05/17 23:30 02/05/17 23:31 DC 02/06/17 00:01 1,768 INTERUNIT ED Course Physical exam and history were performed. Nursing notes, EMR, and Medication List were personally reviewed. Patient appears to have a dog bite and needs rabies postexposure prophylaxis. The patient was given rabies IgG and Imovax. Dog bite form was completed. He and the family were educated on the schedule for returning to the ER. He will need 3 additional immunizations as he is considered immunocompetent. The patient was invited back to the ER with any new, worsening, or concerning symptoms. He voiced understanding and rated his discomfort a 0/10 at the time of departure. The chart was completed utilizing [employer] Speech Voice Recognition Software. Grammatical errors, random word insertions, pronoun errors, and incomplete sentences are an occasional consequence of this system due to software limitations, ambient noise, and hardware issues. Any formal questions or concerns about the content, text, or information contained within the body of this dictation should be directly addressed to the provider for clarification. . Medical Decision Differential diagnosis: Etiologies such as dog bite, laceration, rabies, cellulitis, abscess, MRSA infection, DVT, necrotizing fasciitis, dermatitis, drug eruption, as well as others were entertained.. Impression Primary Impression: Need for post exposure prophylaxis for rabies Additional Impression: Dog bite of extremity Departure Information Dispostion Home / Self-Care Condition GOOD Forms HOME CARE DOCUMENTATION FORM, IMPORTANT VISIT INFORMATION Patient Instructions Rabies, [facility] Additional Instructions You were seen and evaluated today on an emergency basis only. This is not a substitute for, or an effort to provide, complete comprehensive medical care. It is not possible to recognize and treat all injuries or illnesses in a single emergency department visit. For this reason it is recommended that you followup in the ER as follows for your remaining rabies series: Day 3 : 02/08/2017 Day 7 : 02/12/2017 Day 14 : 02/19/2017 Continue your antibiotics as previously prescribed You are welcome to return to the emergency department anytime with new, worsening, or concerning symptoms. Problem Qualifiers
[2017-02-23] MEDS ORDERED: PRED10TA PO (10:39)
[2017-04-23] MEDS ORDERED: TMF75 PO (12:57)
== END 2017-02-06 00:30 | disposition home or self-care (01) ==
LOC: C.EDB 22:57 → C.EDC 02-06 00:30
DX: Z23 Encounter for immunization (principal); Z20.3 Contact with and (suspected) exposure to rabies; W54.0XXA Bitten by dog, initial encounter

== ENCOUNTER 2017-02-08 13:05 | Emergency (ER) | payer OTHER ==
[~2017-02-08] VITALS: Ht 171.5 cm; Wt 89.2 kg
[~2017-02-08 13:05] MED LIST changes: +AMOX875T PO
[2017-02-08 13:07] VITALS: BP 127/75; PULSE 73; TEMP 36.8; O2SAT 100; Ht 171.5 cm; Wt 89.2 kg
[2017-02-08] MEDS ORDERED: RABIES VACCINE (IMOVAX) HUMAN DIPL CELL 2.5 INTER.UNIT/ML SYR IM. ONE (13:15)
--- NOTE | 2017-02-08 13:31 | EMERGENCY ROOM VISIT NOTE ---
ED Visit Note First contact with patient: 13:11 CHIEF COMPLAINT: Need second rabies shots HISTORY OF PRESENT ILLNESS: This 71-year-old male presents the ER for his second rabies vaccine. The patient was seen here 2 days ago for his initial rabies vaccine after being seen by his PCP 2 days prior for a dog bite to his right lower leg. The patient states that the wound is healing well and he is taking his Augmentin as prescribed. The patient did not have any problems with prior vaccines. REVIEW OF SYSTEMS: 6 system review was performed and was negative unless stated otherwise in history of present illness. PMH: See chronic problem list. This was reviewed and there are no changes. SOCIAL HISTORY: Patient lives with his . PHYSICAL EXAM: Vital Signs: Were reviewed Reviewed Nurse's notes. GENERAL: 71- year-old white male appears in no acute distress. MENTAL Status: Alert and oriented 3. RIGHT LOWER LE healed wounds noted without any surrounding erythema or drainage. EMERGENCY DEPARTMENT COURSE: The patient was evaluated. The patient was given Imovax. The patient was discharged home in stable condition. DIAGNOSIS: Post exposure rabies prophylaxis DISCHARGE INSTRUCTIONS: Return to the ER for the remainder of your vaccine schedule as previously directed. 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 Surgical Problems: (1) H/O esophagogastroduodenoscopy Status: Resolved (2) S/P arthroscopic knee surgery Status: Resolved (3) S/P colonoscopy Status: Resolved (4) s/p modified radical neck dissection Permanent Comment: 2007 [facility] tonsillar Ca Status: Resolved Current/Historical Medications Scheduled Amoxicillin & Pot Clavulanate (Augmentin 875-125 mg), 1 TAB PO BID Enteral Nutrition Formula (Boost Plus), 2 CAN PEG QID Fludrocortisone Acetate (Florinef), 0.1-0.2 MG PEG DAILY Levothyroxine Sodium (Synthroid), 100 MCG PEG QAM Sertraline (Zoloft), 50 MG PEG QAM Umeclidinium-Vilanterol (Anoro Ellipta 62.5-25 Mcg/INH), 1 PUFF INH DAILY [Water], 200 ML PEG QID Scheduled PRN Albuterol Hfa (Ventolin Hfa), 2 PUFF INH Q4 PRN for wheezing Fluticasone Propionate (Inhala (Flovent Diskus), 1 PUFFS INH BID PRN for SOB/ Wheezing Allergies Coded Allergies: Nitrates, Organic (Verified Allergy, Unknown, DROP IN BP, 02/08/17) Terazosin (Verified Allergy, Unknown, 02/08/17) Sulfamethoxazole w/Trimethoprim (Unverified Adverse Reaction, Severe, ITCHING, 02/08/17) Vital Signs Date Time Temp Pulse Resp B/P (MAP) Pulse Ox O2 Delivery O2 Flow Rate FiO2 02/08/17 13:07 36.8 73 17 127/75 100 Room Air Departure Information Referrals Sanjiv Hart III, M.D. (PCP) Patient Instructions My [facility]
[2017-02-23] MEDS ORDERED: PRED10TA PO (10:39)
[2017-04-23] MEDS ORDERED: TMF75 PO (12:57)
== END 2017-02-08 13:34 | disposition home or self-care (01) ==
LOC: C.EDB 13:06 → C.EDD 13:34
DX: Z23 Encounter for immunization (principal); Z20.3 Contact with and (suspected) exposure to rabies; J45.909 Unspecified asthma, uncomplicated; J44.9 Chronic obstructive pulmonary disease, unspecified; F32.9 Major depressive disorder, single episode, unspecified; Z85.818 Personal history of malignant neoplasm of other sites of lip, oral cavity, and pharynx; Z98.890 Other specified postprocedural states; Z79.899 Other long term (current) drug therapy

== ENCOUNTER 2017-02-12 11:56 | Emergency (ER) | payer OTHER ==
[~2017-02-12] VITALS: Ht 181.6 cm; Wt 89.2 kg
[2017-02-12 11:57] VITALS: Ht 181.6 cm; Wt 89.2 kg
[2017-02-12] MEDS ORDERED: RABIES VACCINE (IMOVAX) HUMAN DIPL CELL 2.5 INTER.UNIT/ML SYR IM. ONE (12:15)
[2017-02-12 12:29] VITALS: BP 151/87; PULSE 67; TEMP 36.7; O2SAT 98
--- NOTE | 2017-02-12 12:35 | EMERGENCY ROOM VISIT NOTE ---
History First contact with patient: 12:03 Chief Complaint: RABIES VACCINE REPEAT VISIT Stated Complaint: REPEAT RABIES VACCINE History of Present Illness The patient is a 71 year old male who presents to the Emergency Room for his third Imovax immunization. The patient denies any adverse reactions from his prior treatment. Review of Systems 6 system review was performed and was negative except for pertinent positives and negatives as indicated in history of present illness 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 Surgical Problems: (1) H/O esophagogastroduodenoscopy (2) S/P arthroscopic knee surgery (3) S/P colonoscopy (4) s/p modified radical neck dissection Family History Cancer Diabetes mellitus Heart disease Hypertension Lung disease Social History Smoking Status: Former Smoker Alcohol Use: none Drug Use: none Housing Status: lives with significant other Occupation Status: disabled Current/Historical Medications Scheduled Amoxicillin & Pot Clavulanate (Augmentin 875-125 mg), 1 TAB PO BID Enteral Nutrition Formula (Boost Plus), 2 CAN PEG QID Fludrocortisone Acetate (Florinef), 0.1-0.2 MG PEG DAILY Levothyroxine Sodium (Synthroid), 100 MCG PEG QAM Sertraline (Zoloft), 50 MG PEG QAM Umeclidinium-Vilanterol (Anoro Ellipta 62.5-25 Mcg/INH), 1 PUFF INH DAILY [Water], 200 ML PEG QID Scheduled PRN Albuterol Hfa (Ventolin Hfa), 2 PUFF INH Q4 PRN for wheezing Fluticasone Propionate (Inhala (Flovent Diskus), 1 PUFFS INH BID PRN for SOB/ Wheezing Physical Exam Vital Signs Date Time Temp Pulse Resp B/P (MAP) Pulse Ox O2 Delivery O2 Flow Rate FiO2 02/12/17 11:57 36.7 68 16 151/87 97 Room Air Physical Exam CONSTITUTIONAL: Healthy and well nourished. Alert and oriented X 3 with positive affect. HEENT: The patient has postoperative surgical scarring from facial surgery secondary to tonsillar malignancy. Pupils equal, round and reactive. No scleral icterus. MUSCULOSKELETAL: Examination of the left anterior leg shows good healing of the dog bite. There is minimal peripheral erythema without any induration or fluctuance. INTEGUMENTARY: No rash or other significant dermatologic conditions noted. NEUROLOGIC: No focal neurologic deficits noted. Medical Decision & Procedures Medications Administered Medications (Trade) Dose Ordered Sig/John Route Start Time Stop Time Status Last Admin Dose Admin Rabies Vaccine Human Diploid Cell (Imovax Rabies) 2.5 interunit ONCE ONCE IM. 02/12/17 12:15 02/12/17 12:16 DC 02/12/17 12:15 2.5 INTERUNIT ED Course Patient history and physical exam were performed. Nurse's notes were reviewed. Vital signs were reviewed. The patient was administered Imovax IM without adverse reaction. Review of the patient's medical history shows a history of possible malignancy. When asked about the patient's immune status, his reports that he had 2 episodes of pneumonia last year, and reports that he does seem to have a weakened immune system. Given his history, I did suggest that he also received another Imovax immunization at 28 days, along with his next scheduled injection in one week. Dates were provided. The patient was happy with plan of care, and denied any pain at the time of discharge. Medical Decision Medication Reconcilliation Current Medication List: was personally reviewed by me Blood Pressure Screening Patient's blood pressure: Normal blood pressure Impression Primary Impression: Need for prophylactic vaccination against rabies Additional Impressions: Hx of malignant neoplasm of tonsil Dog bite of left lower leg Departure Information Dispostion Home / Self-Care Forms HOME CARE DOCUMENTATION FORM, IMPORTANT VISIT INFORMATION Patient Instructions My [facility] Additional Instructions Return in one week and 3 weeks for further Imovax immunizations. 02/19 Problem Qualifiers Additional Impressions: Dog bite of left lower leg Encounter type: subsequent encounter Qualified Codes: S81.852D - Open bite, left lower leg, subsequent encounter; W54.0XXD - Bitten by dog, subsequent encounter
[2017-02-23] MEDS ORDERED: PRED10TA PO (10:39)
[2017-04-23] MEDS ORDERED: TMF75 PO (12:57)
== END 2017-02-12 12:25 | disposition home or self-care (01) ==
LOC: C.EDB 11:57 → C.EDD 12:25
DX: Z20.3 Contact with and (suspected) exposure to rabies (principal); Z23 Encounter for immunization; S81.852D Open bite, left lower leg, subsequent encounter; X58.XXXD Exposure to other specified factors, subsequent encounter; J45.909 Unspecified asthma, uncomplicated; N40.0 Benign prostatic hyperplasia without lower urinary tract symptoms; J44.9 Chronic obstructive pulmonary disease, unspecified; F32.9 Major depressive disorder, single episode, unspecified; E78.5 Hyperlipidemia, unspecified; K21.9 Gastro-esophageal reflux disease without esophagitis; I10 Essential (primary) hypertension; Z83.3 Family history of diabetes mellitus; Z82.49 Family history of ischemic heart disease and other diseases of the circulatory system; Z87.891 Personal history of nicotine dependence

== ENCOUNTER 2017-02-19 09:45 | Emergency (ER) | payer OTHER ==
[2017-02-19 09:59] VITALS: TEMP 36.6
--- NOTE | 2017-02-19 10:13 | EMERGENCY ROOM VISIT NOTE ---
ED Visit Note First contact with patient: 10:06 [facility] COMPLAINT: Need second rabies shots HISTORY OF PRESENT ILLNESS: This 71-year-old male presents the ER for his4th rabies vaccine. The patient did not have any problems with prior vaccines. The patient does admit that the last time he was here they recommended that he comes back to the ER on day 28 for an additional rabies vaccine since he is immunocompromised. REVIEW OF SYSTEMS: 6 system review was performed and was negative unless stated otherwise in history of present illness. PMH: See chronic problem list. This was reviewed and there are no changes. SOCIAL HISTORY: Patient lives with his . PHYSICAL EXAM: Vital Signs: Were reviewed Reviewed Nurse's notes. GENERAL: 71- year-old white male appears in no acute distress. MENTAL Status: Alert and oriented 3. RIGHT LOWER LE healed wounds noted without any surrounding erythema or drainage. EMERGENCY DEPARTMENT COURSE: The patient was evaluated. The patient was given Imovax. The patient was discharged home in stable condition. DIAGNOSIS: Post exposure rabies prophylaxis DISCHARGE INSTRUCTIONS: Return to the ER on day 28 for your final rabies vaccine.. 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 Surgical Problems: (1) H/O esophagogastroduodenoscopy Status: Resolved (2) S/P arthroscopic knee surgery Status: Resolved (3) S/P colonoscopy Status: Resolved (4) s/p modified radical neck dissection Permanent Comment: 2007 [facility] tonsillar Ca Status: Resolved Current/Historical Medications Scheduled Amoxicillin & Pot Clavulanate (Augmentin 875-125 mg), 1 TAB PO BID Enteral Nutrition Formula (Boost Plus), 2 CAN PEG QID Fludrocortisone Acetate (Florinef), 0.1-0.2 MG PEG DAILY Levothyroxine Sodium (Synthroid), 100 MCG PEG QAM Sertraline (Zoloft), 50 MG PEG QAM Umeclidinium-Vilanterol (Anoro Ellipta 62.5-25 Mcg/INH), 1 PUFF INH DAILY [Water], 200 ML PEG QID Scheduled PRN Albuterol Hfa (Ventolin Hfa), 2 PUFF INH Q4 PRN for wheezing Fluticasone Propionate (Inhala (Flovent Diskus), 1 PUFFS INH BID PRN for SOB/ Wheezing Allergies Coded Allergies: Nitrates, Organic (Verified Allergy, Unknown, DROP IN BP, 02/08/17) Terazosin (Verified Allergy, Unknown, 02/08/17) Sulfamethoxazole w/Trimethoprim (Unverified Adverse Reaction, Severe, ITCHING, 02/08/17) Vital Signs Date Time Temp Pulse Resp B/P (MAP) Pulse Ox O2 Delivery O2 Flow Rate FiO2 02/19/17 09:59 36.6 64 20 119/76 97 Room Air Departure Information Referrals No Doctor, Assigned (PCP) Patient Instructions My [facility]
[2017-02-19] MEDS ORDERED: RABIES VACCINE (IMOVAX) HUMAN DIPL CELL 2.5 INTER.UNIT/ML SYR IM. ONE (10:15)
[2017-02-19 10:31] VITALS: BP 144/81; PULSE 58; O2SAT 98
[2017-02-23] MEDS ORDERED: PRED10TA PO (10:39)
[2017-04-23] MEDS ORDERED: TMF75 PO (12:57)
== END 2017-02-19 10:33 | disposition home or self-care (01) ==
LOC: C.EDB 09:46 → C.EDC 10:33
DX: Z23 Encounter for immunization (principal); Z20.3 Contact with and (suspected) exposure to rabies; E78.5 Hyperlipidemia, unspecified; K21.9 Gastro-esophageal reflux disease without esophagitis; K31.84 Gastroparesis; J45.909 Unspecified asthma, uncomplicated; J44.9 Chronic obstructive pulmonary disease, unspecified; F32.9 Major depressive disorder, single episode, unspecified; G89.29 Other chronic pain; Z85.89 Personal history of malignant neoplasm of other organs and systems; Z98.890 Other specified postprocedural states; Z79.899 Other long term (current) drug therapy; Z88.2 Allergy status to sulfonamides; Z88.8 Allergy status to other drugs, medicaments and biological substances

== ENCOUNTER 2017-02-27 09:09 | Emergency (ER) | payer OTHER ==
[~2017-02-27] VITALS: Ht 181.6 cm; Wt 89.9 kg
[~2017-02-27 09:09] MED LIST changes: +PRED10TA PO
[2017-02-27 09:14] VITALS: TEMP 37.1; Ht 181.6 cm; Wt 89.9 kg
[2017-02-27] MEDS ORDERED: ALBUT/IPRATROP 3MG/0.5MG NEB 3 ML VIAL INH STA (10:00)
--- NOTE | 2017-02-27 10:31 | DIAGNOSTIC IMAGING REPORT ---
CHEST ONE VIEW PORTABLE HISTORY: Short of breath. Cough. COMPARISON: Chest 01/17/2017. FINDINGS: Mild elevation the left hemidiaphragm. Left basilar linear densities favor subsegmental atelectasis. No pneumothorax. No pleural effusions. Mild interstitial thickening is likely chronic. The heart is normal in size. IMPRESSION: Mild elevation of the left hemidiaphragm with left basilar linear densities suggesting subsegmental atelectasis. Electronically signed by: Rylan Archuleta M.D. 02/27/2017 10:29 AM Dictated Date/Time: 02/27/2017 10:21 AM
[2017-02-27 10:35] LABS: BASO % 0.2 %; BASO ABS # 0.02 K/uL (0-0.2); COMPLETE YES; EOS % 0.3 %; HEMATOCRIT 40.5 % (42-52); IG% 0.2 %; LYMPH % 7.4 %; LYMPH ABS # 0.77 K/uL (1.2-3.4); MEAN CELL VOLUME 96.7 fL (80-100); MEAN CORPUSCULAR HEMOGLOBIN 31.7 pg (25-34); MEAN CORPUSCULAR HGB CONC 32.8 g/dl (32-36); MEAN PLATELET VOLUME 10.8 fL (7.4-10.4); MONO % 14.5 %; NEUT % 77.4 %; PLATELET COUNT 188 K/uL (130-400); RED BLOOD COUNT 4.19 M/uL (4.7-6.1); WHITE BLOOD COUNT 10.39 K/uL (4.8-10.8)
[2017-02-27] MEDS ORDERED: IPRASOL4 INH (10:39)
[2017-02-27 10:53] LABS: ALT/SGPT 28 U/L (12-78); AST/SGOT 13 U/L (15-37); BLOOD UREA NITROGEN 29 mg/dl (7-18); BUN/CREATININE RATIO 31.4 (10-20); CALCIUM 8.9 mg/dl (8.5-10.1); CARBON DIOXIDE 32 mmol/L (21-32); CHLORIDE 108 mmol/L (98-107); CREATININE 0.92 mg/dl (0.60-1.40); GLUCOSE 91 mg/dl (70-99); SODIUM 143 mmol/L (136-145)
[2017-02-27 10:58] LABS: ALB/GLOB RATIO 0.8 (0.9-2); ALKALINE PHOSPHATASE 76 U/L (45-117); INR 1.1 (0.9-1.1); PROTHROMBIN TIME (PATIENT) 11.3 SECONDS (9.0-12.0)
[2017-02-27] MEDS ORDERED: LEVAQUIN 750MG / 150ML D5W IV STA (10:59)
[2017-02-27 11:45] LABS: LYME DISEASE AB IGG NEG (NEG); LYME DISEASE AB IGM NEG (NEG)
[2017-02-27] MEDS ORDERED: SODIUM CHLORIDE 0.9% 1000ML 1,000 ML IV STA (11:47)
--- NOTE | 2017-02-27 11:55 | EMERGENCY ROOM VISIT NOTE ---
History Report prepared by Rubén: Ayah Mckeon Under the Supervision of: Dr. Danielle Gaston D.O. First contact with patient: 09:39 Chief Complaint: COUGH Stated Complaint: COUGH Nursing Triage Summary: Pt was seen on drs on Mon and told he had asthma and put on prednisone. Called yesterday and told he has pnx in right lung, started on Amoxicillin. states, "I tried to tell them that Amoxicillin won't do anything for him." Cough of yellow/brown with a trace of blood. Pt is [employer]. reports hx of MRSA. "Every time he comes in he has it." History of Present Illness The patient is a 71 year old male who presents to the Emergency Room with complaints of a constant cough that began about 4 days ago. Per , the patient was taken to their PCP 3 days ago and was diagnosed with pneumonia. The patient was given prednisone three days ago to help his the symptoms. The patient started the prednisone but did not start his antibiotics yet which were called in yesterday after he was called that his outpt cxr showed pneumonia. He has been coughing up thick sputum with traces of blood and has had a fever for the past three days. Pt states he has seen blood with frequent coughing and resp infections in the past. The patient uses breathing treatments to help with his symptoms and is also on Florinef for low blood pressure. The patient notes that he is often short of breath when working in has recently been more tired. He has also has a history of pneumonia and has had three incidents of it in the past 3 months. The patient notes he is often constipated. The patient has been give a series of rabies shot and is due for his last shot in a week. He does not wear oxygen. 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 Had throat cancer 10 years ago which was treated. The patient uses feeding tube everyday and has had aspiration problems in the past with it. The patient is also going to [place] next week for considerations of future throat reconstructive surgery. Source of History: patient Onset: 4 days ago Position: other (lungs) Timing: constant Associated Symptoms: + fevers, + SOB (when working), + fatigue Review of Systems See HPI for pertinent positives & negatives. A total of 10 systems reviewed and were otherwise negative. 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 Surgical Problems: (1) H/O esophagogastroduodenoscopy (2) S/P arthroscopic knee surgery (3) S/P colonoscopy (4) s/p modified radical neck dissection Family History Cancer Diabetes mellitus Heart disease Hypertension Lung disease Social History Smoking Status: Former Smoker Alcohol Use: none Drug Use: none Housing Status: lives with significant other Occupation Status: disabled Current/Historical Medications Scheduled Enteral Nutrition Formula (Boost Plus), 2 CAN PEG QID Fludrocortisone Acetate (Florinef), 0.1-0.3 MG PEG DAILY Levofloxacin (Levaquin), 750 MG PO DAILY Levothyroxine Sodium (Synthroid), 100 MCG PEG QAM Prednisone Tab (Prednisone), 10 MG PO UD Sertraline (Zoloft), 50 MG PEG QAM Umeclidinium-Vilanterol (Anoro Ellipta 62.5-25 Mcg/INH), 1 PUFF INH DAILY Scheduled PRN Albuterol Hfa (Ventolin Hfa), 2 PUFF INH Q4 PRN for wheezing Fluticasone Propionate (Inhala (Flovent Diskus), 1 PUFFS INH BID PRN for SOB/ Wheezing Ipratropium-Albuterol (Duoneb), 1 TREATMENT INH Q4H PRN for SOB/Wheezing Allergies Coded Allergies: Nitrates, Organic (Verified Allergy, Unknown, DROP IN BP, 02/27/17) Terazosin (Verified Allergy, Unknown, 02/27/17) Sulfamethoxazole w/Trimethoprim (Unverified Adverse Reaction, Severe, ITCHING, 02/27/17) Physical Exam Vital Signs Date Time Temp Pulse Resp B/P (MAP) Pulse Ox O2 Delivery O2 Flow Rate FiO2 02/27/17 14:01 66 16 115/62 97 02/27/17 13:00 68 16 112/70 98 Room Air 02/27/17 11:13 67 16 118/69 94 Room Air 02/27/17 10:43 62 16 99 Room Air 02/27/17 09:14 37.1 74 22 92/60 94 Room Air Physical Exam GENERAL: alert, well appearing, well nourished, no distress, non-toxic EYE EXAM: normal conjunctiva, PERRL and EOM's grossly intact OROPHARYNX: no exudate, no erythema, lips, buccal mucosa, and tongue normal and mucous membranes are moist. Abnormal voice which is chronic. Obvious abnormal anatomy secondary to surgery from prior cancer. NECK: supple, no nuchal rigidity, no adenopathy, non-tender LUNGS: Clear to auscultation. Normal chest wall mechanics. Decreased lung sounds. HEART: no murmurs, S1 normal and S2 normal ABDOMEN: abdomen soft, non-tender, normo-active bowel sounds, no masses, no rebound or guarding. BACK: Back is symmetrical on inspection and there is no deformity, no midline tenderness, no CVA tenderness. SKIN: no rashes and no bruising UPPER EXTREMITIES: upper extremities are grossly normal. LOWER EXTREMITIES: No pitting edema. NEURO EXAM: Normal sensorium, cranial nerves II-XII grossly intact, normal speech, no gross weakness of arms, no gross weakness of legs. No drift. Finger to nose intact. Gross sensation intact. Medical Decision & Procedures ER Provider Diagnostic Interpretation: Radiology results have been interpreted by the radiologist and reviewed by me. CHEST ONE VIEW PORTABLE FINDINGS: Mild elevation the left hemidiaphragm. Left basilar linear densities favor subsegmental atelectasis. No pneumothorax. No pleural effusions. Mild interstitial thickening is likely chronic. The heart is normal in size. IMPRESSION: Mild elevation of the left hemidiaphragm with left basilar linear densities suggesting subsegmental atelectasis. Electronically signed by: Rylan Archuleta M.D. Laboratory Results 02/27/17 10:20 Red Blood Count 4.19, Mean Corpuscular Volume 96.7, Mean Corpuscular Hemoglobin 31.7, Mean Corpuscular Hemoglobin Concent 32.8, Mean Platelet Volume 10.8, Neutrophils (%) (Auto) 77.4, Lymphocytes (%) (Auto) 7.4, Monocytes (%) (Auto) 14.5, Eosinophils (%) (Auto) 0.3, Basophils (%) (Auto) 0.2, Neutrophils # (Auto ) 8.04, Lymphocytes # (Auto) 0.77, Monocytes # (Auto) 1.51, Eosinophils # (Auto ) 0.03, Basophils # (Auto) 0.02 02/27/17 10:20 Test 02/27/17 10:20 02/27/17 13:11 White Blood Count 10.39 K/uL (4.8-10.8) Red Blood Count 4.19 M/uL (4.7-6.1) Hemoglobin 13.3 g/dL (14.0-18.0) Hematocrit 40.5 % (42-52) Mean Corpuscular Volume 96.7 fL (80-100) Mean Corpuscular Hemoglobin 31.7 pg (25-34) Mean Corpuscular Hemoglobin Concent 32.8 g/dl (32-36) Platelet Count 188 K/uL (130-400) Mean Platelet Volume 10.8 fL (7.4-10.4) Neutrophils (%) (Auto) 77.4 % Lymphocytes (%) (Auto) 7.4 % Monocytes (%) (Auto) 14.5 % Eosinophils (%) (Auto) 0.3 % Basophils (%) (Auto) 0.2 % Neutrophils # (Auto) 8.04 K/uL (1.4-6.5) Lymphocytes # (Auto) 0.77 K/uL (1.2-3.4) Monocytes # (Auto) 1.51 K/uL (0.11-0.59) Eosinophils # (Auto) 0.03 K/uL (0-0.5) Basophils # (Auto) 0.02 K/uL (0-0.2) RDW Standard Deviation 50.1 fL (36.4-46.3) RDW Coefficient of Variation 14.1 % (11.5-14.5) Immature Granulocyte % (Auto) 0.2 % Immature Granulocyte # (Auto) 0.02 K/uL (0.00-0.02) Prothrombin Time 11.3 SECONDS (9.0-12.0) Prothromb Time International Ratio 1.1 (0.9-1.1) D-Dimer 280 ug/L FEU (0-500) Anion Gap 3.0 mmol/L (3-11) Est Creatinine Clear Calc Drug Dose 81.9 ml/min Estimated GFR () 98.0 Estimated GFR (Non- 84.6 BUN/Creatinine Ratio 31.4 (10-20) Lactic Acid Level 2.4 mmol/L (0.4-2.0) Calcium Level 8.9 mg/dl (8.5-10.1) Total Bilirubin 0.5 mg/dl (0.2-1) Aspartate Amino Transf (AST/SGOT) 13 U/L (15-37) Alanine Aminotransferase (ALT/SGPT) 28 U/L (12-78) Alkaline Phosphatase 76 U/L (45-117) Troponin I < 0.015 ng/ml (0-0.045) Pro-B-Type Natriuretic Peptide 285 pg/ml (0-900) Total Protein 6.5 gm/dl (6.4-8.2) Albumin 2.9 gm/dl (3.4-5.0) Globulin 3.6 gm/dl (2.5-4.0) Albumin/Globulin Ratio 0.8 (0.9-2) Lyme Disease IgG Antibody NEG (NEG) Lyme Disease IgM Antibody NEG (NEG) Bedside Lactic Acid Venous 1.60 mmol/L (0.90-1.70) Laboratory results per my review. Medications Administered Medications (Trade) Dose Ordered Sig/John Route Start Time Stop Time Status Last Admin Dose Admin Albuterol/ Ipratropium (Duoneb) 3 ml NOW STAT INH 02/27/17 10:00 02/27/17 10:02 DC 02/27/17 10:41 3 ML Levofloxacin (Levaquin / D5W) 750 mg NOW STAT IV 02/27/17 10:59 02/27/17 11:00 DC 02/27/17 11:12 750 MG Sodium Chloride 1,000 ml @ 999 mls/hr Q1H1M STAT IV 02/27/17 11:47 02/27/17 12:47 DC 02/27/17 12:08 999 MLS/HR ECG Indication: other (pneumonia ) Rate (beats per minute): 60 Rhythm: normal sinus Findings: no acute ischemic change, left axis deviation, other (Normal intervals ) ED Course 0948: The patient was evaluated in room B8. A complete history and physical exam was performed. 1000: Duoneb 3 mg INH 1059: Levofloxacin 750 mg IV 1138:I reevaluated the patient and he is feeling better with the breathing treatment. 1147: Sodium Chloride 1000 ml @ 999 mls/hr IV. 1326: I reevaluated the patient, He is resting comfortably and ready to go home. 1334: Upon reevaluation, the patient is feeling better. I discussed the findings and the treatment plan with the patient. He verbalizes agreement and understanding. The patient was discharged home. Medical Decision Differential diagnosis: Etiologies such as infections, reactive airway disease, pneumonia, pneumothorax , COPD, CHF, cardiac ischemia, pulmonary embolism, musculoskeletal, gastrointestinal, as well as others were entertained. Labs here reassuring despite symptoms. No leukocytosis despite steroids. Reviewed outpt cxr, no infiltrate seen on today's cxr. Dimer negative and doubt PE, scant hemoptysis likely from frequent and forceful coughing. No evidence for aspiration. Pt here well appearing, VS stable. Doubt cardiac etiology. Doubt bacteremia/sepsis. Patient only scheduled for CAT scan beginning of March. CT from December reviewed. Patient started on Levaquin as a precaution, instructed to continue his outpatient steroid taper, patient has MDIs and nebs at home. Discussed with patient and symptoms to watch and return for, close follow-up with family doctor the beginning of the week, they verbalized understanding were agreeable with plan. Medication Reconcilliation Current Medication List: was personally reviewed by me Blood Pressure Screening Patient's blood pressure: Normal blood pressure Blood pressure disposition: Did not require urgent referral Impression Primary Impression: Cough Additional Impression: Chronic obstructive pulmonary disease Scribe Attestation The scribe's documentation has been prepared under my direction and personally reviewed by me in its entirety. I confirm that the note above accurately reflects all work, treatment, procedures, and medical decision making performed by me. Departure Information Dispostion Home / Self-Care Prescriptions Levofloxacin (Levaquin) 500 Mg Tab 750 MG PO DAILY for 5 Days, #8 TAB Prov: Danielle Gaston, 02/27/17 Referrals No Doctor, Assigned (PCP) Forms HOME CARE DOCUMENTATION FORM, IMPORTANT VISIT INFORMATION Patient Instructions My [facility] Additional Instructions Please call and follow-up with your family doctor. Please continue your steroid taper as previously prescribed. Please take the antibiotics daily. If you have any worsening cough, are seeing blood in your sputum, develop recurrent fevers/chills, develop chest pain, or you have any other new or concerning symptoms, please return to the emergency room. Problem Qualifiers Additional Impression: Chronic obstructive pulmonary disease COPD type: COPD with acute exacerbation Qualified Codes: J44.1 - Chronic obstructive pulmonary disease with (acute) exacerbation
[2017-02-27] MEDS ORDERED: LEVO-366 PO (13:32)
[2017-02-27 14:01] VITALS: BP 115/62; PULSE 66; O2SAT 97
[2017-04-23] MEDS ORDERED: TMF75 PO (12:57)
== END 2017-02-27 14:20 | disposition home or self-care (01) ==
LOC: C.EDB 09:13
DX: R05 Cough (principal); J44.1 Chronic obstructive pulmonary disease with (acute) exacerbation; J18.9 Pneumonia, unspecified organism; Z87.01 Personal history of pneumonia (recurrent); J45.909 Unspecified asthma, uncomplicated; F32.9 Major depressive disorder, single episode, unspecified; Z85.818 Personal history of malignant neoplasm of other sites of lip, oral cavity, and pharynx; Z87.891 Personal history of nicotine dependence; Z98.890 Other specified postprocedural states; Z83.3 Family history of diabetes mellitus; Z82.49 Family history of ischemic heart disease and other diseases of the circulatory system; Z79.899 Other long term (current) drug therapy

== ENCOUNTER 2017-03-01 10:45 | Emergency (ER) | payer OTHER ==
[~2017-03-01] VITALS: Ht 180.3 cm; Wt 90.4 kg
[~2017-03-01 10:45] MED LIST changes: -AMOX875T PO; +IPRASOL4 INH; +LEVO-366 PO; -WATER PEG
[2017-03-01 10:52] VITALS: BP 122/74; PULSE 67; TEMP 36.8; O2SAT 93; Ht 180.3 cm; Wt 90.4 kg
[2017-03-01] MEDS ORDERED: AZITTAB PO (11:19)
--- NOTE | 2017-03-01 11:20 | EMERGENCY ROOM VISIT NOTE ---
History First contact with patient: 11:05 Chief Complaint: RASH Stated Complaint: RASH ALL OVER BODY History of Present Illness The patient is a 71 year old male who presents to the Emergency Room with complaints of a rash on his arms and legs. The patient states that he was seen here on Wednesday for upper respiratory symptoms. He was given Levaquin IV and then yesterday she took 750 mg of Levaquin by mouth. He did not take his pill yet today. This morning at 6 AM he started with a rash on his legs and arms which is itchy. He states it is similar to the rash she got when he figured out that he was allergic to Bactrim. The patient denies any throat or chest tightness. Review of Systems 6 system review was performed and was negative unless stated otherwise in history of present illness. 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 Surgical Problems: (1) H/O esophagogastroduodenoscopy (2) S/P arthroscopic knee surgery (3) S/P colonoscopy (4) s/p modified radical neck dissection Family History Cancer Diabetes mellitus Heart disease Hypertension Lung disease Social History Smoking Status: Former Smoker Alcohol Use: none Drug Use: none Housing Status: lives with significant other Occupation Status: disabled Current/Historical Medications Scheduled Azithromycin (Zithromax Z-Trevin), 0 PO UD Enteral Nutrition Formula (Boost Plus), 2 CAN PEG QID Fludrocortisone Acetate (Florinef), 0.1-0.3 MG PEG DAILY Levofloxacin (Levaquin), 750 MG PO DAILY Levothyroxine Sodium (Synthroid), 100 MCG PEG QAM Prednisone Tab (Prednisone), 10 MG PO UD Sertraline (Zoloft), 50 MG PEG QAM Umeclidinium-Vilanterol (Anoro Ellipta 62.5-25 Mcg/INH), 1 PUFF INH DAILY Scheduled PRN Albuterol Hfa (Ventolin Hfa), 2 PUFF INH Q4 PRN for wheezing Fluticasone Propionate (Inhala (Flovent Diskus), 1 PUFFS INH BID PRN for SOB/ Wheezing Ipratropium-Albuterol (Duoneb), 1 TREATMENT INH Q4H PRN for SOB/Wheezing Physical Exam Vital Signs Date Time Temp Pulse Resp B/P (MAP) Pulse Ox O2 Delivery O2 Flow Rate FiO2 03/01/17 10:52 36.8 67 20 122/74 93 Room Air Physical Exam GENERAL: 71-year-old white male appears in no acute distress. NECK: Supple, no lymphadenopathy noted. No carotid bruits noted. PHARYNX: No erythema or edema noted. Airway is adequate. LUNGS: Faint expiratory wheezing noted bilaterally. No rales or rhonchi noted. Good air exchange. CARDIAC: Regular rate and rhythm without murmur. Pulses is full and equal throughout. SKIN: Patient has a erythematous raised rash on the posterior aspect of both upper arms and on his inner thighs. Remainder skin is clear. Medical Decision & Procedures Medications Administered Medications (Trade) Dose Ordered Sig/John Route Start Time Stop Time Status Last Admin Dose Admin Diphenhydramine HCl (Benadryl Cap) 25 mg NOW ONCE PO 03/01/17 11:30 03/01/17 11:31 DC 03/01/17 11:30 25 MG ED Course The patient was evaluated. The patient was given Benadryl 25 mg by mouth for itch. The patient was informed that he should not take Levaquin in the future. The patient was reevaluated was feeling better. The patient verbalized understanding. Treatment plan was discussed with Dr. Merino. Medical Decision The patient presented with a rash and he just started Levaquin 48 hours prior therefore I suspect this is the etiology of his rash. [place] Drug Monitoring Program Search Results: patient reviewed within database Medication Reconcilliation Current Medication List: was personally reviewed by me Blood Pressure Screening Patient's blood pressure: Normal blood pressure Impression Primary Impression: Allergic drug reaction Departure Information Dispostion Home / Self-Care Condition GOOD Prescriptions Azithromycin (ZITHROMAX Z-TREVIN) 250 Mg Tab 0 PO UD, #1 PKT Prov: Christie Nazario PA-C 03/01/17 Referrals Sanjiv Hart III, M.D. (PCP) Forms HOME CARE DOCUMENTATION FORM, IMPORTANT VISIT INFORMATION, WORK / SCHOOL INSTRUCTIONS Patient Instructions ED Allergic Reaction General Other, My [facility] Additional Instructions Benadryl 25 mg every 6 hours for itch. Do not take the remainder of the Levaquin. Take Z-Trevin as prescribed. Start Z-Trevin tomorrow. Continue all other medications as prescribed. If you experience any severe throat or chest tightness, return to ER immediately. Problem Qualifiers Primary Impression: Allergic drug reaction Encounter type: initial encounter Qualified Codes: T78.40XA - Allergy, unspecified, initial encounter
[2017-04-23] MEDS ORDERED: TMF75 PO (12:57)
== END 2017-03-01 11:50 | disposition home or self-care (01) ==
LOC: C.EDB 10:48 → C.EDD 11:50
DX: T78.40XA Allergy, unspecified, initial encounter (principal); R21 Rash and other nonspecific skin eruption; J44.9 Chronic obstructive pulmonary disease, unspecified; E78.5 Hyperlipidemia, unspecified; K21.9 Gastro-esophageal reflux disease without esophagitis; F32.9 Major depressive disorder, single episode, unspecified; Z79.899 Other long term (current) drug therapy; Z87.01 Personal history of pneumonia (recurrent); Z86.19 Personal history of other infectious and parasitic diseases; Z87.891 Personal history of nicotine dependence; Z82.49 Family history of ischemic heart disease and other diseases of the circulatory system; Z83.3 Family history of diabetes mellitus; Z87.09 Personal history of other diseases of the respiratory system; X58.XXXA Exposure to other specified factors, initial encounter

== ENCOUNTER 2017-03-05 11:57 | Emergency (ER) | payer OTHER ==
[~2017-03-05] VITALS: Ht 181.6 cm; Wt 89.7 kg
[~2017-03-05 11:57] MED LIST changes: +AZITTAB PO
[2017-03-05 12:00] VITALS: BP 171/86; PULSE 58; TEMP 36.5; O2SAT 97; Ht 181.6 cm; Wt 89.7 kg
--- NOTE | 2017-03-05 12:13 | EMERGENCY ROOM VISIT NOTE ---
ED Visit Note First contact with patient: 12:03 CHIEF COMPLAINT: Rabies prophylaxis HISTORY OF PRESENT ILLNESS: This 71-year-old male patient presents to the emergency department ambulatory for their last rabies shot. The patient has not had any complications from the previous injections. They deny any other complaints. The patient was seen here multiple times. This will complete the rabies series. This is day 28. This day was recommended as there is some question of immunocompromise state. The patient had a rash after taking Levaquin when he was seen here earlier this month. He stopped the Levaquin and started Zithromax. He states that his upper respiratory symptoms have improved. He states that on occasion he gets a mild rash on his extremities. He was advised to follow with his family doctor for this. The patient's dog bite has healed. They state that they still see the dog alive, running and playing in the yard 28 days after the bite. It is unlikely that that dog had rabies. REVIEW OF SYSTEMS: A 6 system review of systems was completed with positives and pertinent negatives listed in the HPI. ALLERGIES: Levaquin, nitrates, Bactrim, terazosin MEDICATIONS: See nursing notes PMH: Unchanged from previous visit. PHYSICAL EXAM: Vital Signs: Reviewed Nurse's notes, vital signs stable. GENERAL : This 71-year-old male, in no acute distress, well-developed, well-nourished. HEAD: Atraumatic, without temporal or scalp tenderness. EYES: PERRLA, EOMI, no discharge or injection. SKIN: Normal. NEUROLOGICAL: Alert and cooperative. Sensory and motor functions grossly intact. EMERGENCY DEPARTMENT COURSE: I examined the patient. The patient was given Imovax 1ml IM. The patient was observed for 20 minutes with no reaction. The patient was discharged home in stable condition. DIAGNOSIS: Rabies prophylaxis DISCHARGE INSTRUCTIONS: Follow up with your family doctor for further evaluation and management. Return with worsening symptoms. 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 Surgical Problems: (1) H/O esophagogastroduodenoscopy Status: Resolved (2) S/P arthroscopic knee surgery Status: Resolved (3) S/P colonoscopy Status: Resolved (4) s/p modified radical neck dissection Permanent Comment: 2007 [facility] [place] Status: Resolved Current/Historical Medications Scheduled Azithromycin (Zithromax Z-Trevin), 0 PO UD Enteral Nutrition Formula (Boost Plus), 2 CAN PEG QID Fludrocortisone Acetate (Florinef), 0.1-0.3 MG PEG DAILY Levothyroxine Sodium (Synthroid), 100 MCG PEG QAM Prednisone Tab (Prednisone), 10 MG PO UD Sertraline (Zoloft), 50 MG PEG QAM Umeclidinium-Vilanterol (Anoro Ellipta 62.5-25 Mcg/INH), 1 PUFF INH DAILY Scheduled PRN Albuterol Hfa (Ventolin Hfa), 2 PUFF INH Q4 PRN for wheezing Fluticasone Propionate (Inhala (Flovent Diskus), 1 PUFFS INH BID PRN for SOB/ Wheezing Ipratropium-Albuterol (Duoneb), 1 TREATMENT INH Q4H PRN for SOB/Wheezing Allergies Coded Allergies: Levofloxacin (Unverified Allergy, Unknown, rash all over body, 03/05/17) Nitrates, Organic (Verified Allergy, Unknown, DROP IN BP, 03/05/17) Terazosin (Verified Allergy, Unknown, 03/05/17) Sulfamethoxazole w/Trimethoprim (Unverified Adverse Reaction, Severe, ITCHING, 03/05/17) Vital Signs Date Time Temp Pulse Resp B/P (MAP) Pulse Ox O2 Delivery O2 Flow Rate FiO2 03/05/17 12:00 36.5 58 18 171/86 97 Room Air Medications Administered Medications (Trade) Dose Ordered Sig/John Route Start Time Stop Time Status Last Admin Dose Admin Rabies Vaccine Human Diploid Cell (Imovax Rabies) 2.5 interunit ONCE ONCE IM. 03/05/17 12:15 03/05/17 12:16 DC 03/05/17 12:17 2.5 INTERUNIT Departure Information Impression Primary Impression: Need for post exposure prophylaxis for rabies Dispostion Home / Self-Care Condition GOOD Referrals Sanjiv Hart III, M.D. (PCP) Patient Instructions My [facility] Additional Instructions Follow up with your family doctor for further evaluation and management. Return with worsening symptoms.
[2017-03-05] MEDS ORDERED: RABIES VACCINE (IMOVAX) HUMAN DIPL CELL 2.5 INTER.UNIT/ML SYR IM. ONE (12:15)
[2017-04-23] MEDS ORDERED: TMF75 PO (12:57)
== END 2017-03-05 12:50 | disposition home or self-care (01) ==
LOC: C.EDB 11:58 → C.EDD 12:50
DX: Z20.3 Contact with and (suspected) exposure to rabies (principal); Z23 Encounter for immunization

== ENCOUNTER 2017-04-21 12:00 | Inpatient (IN) | payer OTHER ==
[~2017-04-21] VITALS: Ht 180.3 cm; Wt 89.4 kg
[~2017-04-21 12:00] MED LIST changes: -AZITTAB PO; -LEVO-366 PO
[2017-04-21] MEDS ORDERED: SERT25TA PO (14:02)
[2017-04-21 15:05] LABS: INR 1.1 (0.9-1.1); PARTIAL THROMBOPLASTIN RATIO 1.1; PROTHROMBIN TIME (PATIENT) 11.3 SECONDS (9.0-12.0)
[2017-04-21 15:12] LABS: BASO % 0.2 %; BASO ABS # 0.02 K/uL (0-0.2); COMPLETE YES; HEMATOCRIT 46.7 % (42-52); IG% 0.4 %; LYMPH % 4.9 %; LYMPH ABS # 0.53 K/uL (1.2-3.4); MEAN CELL VOLUME 95.9 fL (80-100); MEAN CORPUSCULAR HEMOGLOBIN 31.6 pg (25-34); MONO % 6.5 %; PLATELET COUNT 154 K/uL (130-400); RED BLOOD COUNT 4.87 M/uL (4.7-6.1); WHITE BLOOD COUNT 10.83 K/uL (4.8-10.8)
--- NOTE | 2017-04-21 15:17 | DIAGNOSTIC IMAGING REPORT ---
CHEST ONE VIEW PORTABLE HISTORY: Evaluate Fever/Sepsis COMPARISON: Chest 02/27/2017. FINDINGS: Mild interstitial thickening at the lung bases, unchanged. The heart is normal in size. The upper lung zones remain clear. No pleural effusions. No pneumothorax. IMPRESSION: Mild bibasilar interstitial thickening which is likely chronic. No new focal lung consolidations to suggest pneumonia. Electronically signed by: Rylan Archuleta M.D. 04/21/2017 3:16 PM Dictated Date/Time: 04/21/2017 3:15 PM
[2017-04-21 15:32] LABS: ALT/SGPT 37 U/L (12-78); BLOOD UREA NITROGEN 22 mg/dl (7-18); BUN/CREATININE RATIO 22.3 (10-20); CALCIUM 9.3 mg/dl (8.5-10.1); CARBON DIOXIDE 27 mmol/L (21-32); CHLORIDE 104 mmol/L (98-107); CREATININE 0.99 mg/dl (0.60-1.40); GLUCOSE 77 mg/dl (70-99); POTASSIUM 3.4 mmol/L (3.5-5.1); SODIUM 140 mmol/L (136-145)
[2017-04-21 15:37] LABS: ALKALINE PHOSPHATASE 105 U/L (45-117); AST/SGOT 26 U/L (15-37); CKMB/CK RATIO 1.2 (0-3.0)
--- NOTE | 2017-04-21 17:09 | EMERGENCY ROOM VISIT NOTE ---
History Report prepared by Rubén: Joshua Ramirez Under the Supervision of: Dr. Cheo Perez D.O. First contact with patient: 13:47 Chief Complaint: CHEST PAIN Stated Complaint: SOB, CHEST PAIN Nursing Triage Summary: Patient c/o of chest pain, shortness of breath and coughing since last night. History of Present Illness The patient is a 71 year old male who presents to the Emergency Room with complaints of a persistent illness that started yesterday. Per the patient's , the patient started having chills early yesterday, and the patient needed to have lots of blankets put on him. The patient also complained of intermittent dizziness yesterday. He then started to have chest heaviness earlier today, in addition to some chest pain. The patient woke up this morning and still felt dizzy. Overnight, the patient was noted to be coughing and wheezing a lot. He was given his breathing treatment and inhalers, with little relief. The patient notes that he thinks that he has either bronchitis or pneumonia. Per the patent's , the patient had pneumonia twice in December, and has not recovered well. He has a history of MRSA. Source of History: patient, spouse/significant other Onset: Yesterday Position: other (global - illness) Timing: other (persistent) Associated Symptoms: + chills, + cough (and wheezing), + chest pain Note: Associated symptoms: Intermittent dizziness. Review of Systems See HPI for pertinent positives & negatives. A total of 10 systems reviewed and were otherwise negative. 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 Surgical Problems: (1) H/O esophagogastroduodenoscopy (2) S/P arthroscopic knee surgery (3) S/P colonoscopy (4) s/p modified radical neck dissection Family History Cancer Diabetes mellitus Heart disease Hypertension Lung disease Social History Smoking Status: Former Smoker Alcohol Use: none Drug Use: none Housing Status: lives with significant other Occupation Status: disabled Current/Historical Medications Scheduled Enteral Nutrition Formula (Boost Plus), 2 CAN PEG QID Fludrocortisone Acetate (Florinef), 0.1-0.3 MG PEG DAILY Levothyroxine Sodium (Synthroid), 100 MCG PEG QAM Sertraline (Zoloft), 1 TAB PO DAILY Umeclidinium-Vilanterol (Anoro Ellipta 62.5-25 Mcg/INH), 1 PUFF INH DAILY Scheduled PRN Albuterol Hfa (Ventolin Hfa), 2 PUFF INH Q4 PRN for wheezing Fluticasone Propionate (Inhala (Flovent Diskus), 1 PUFFS INH BID PRN for SOB/ Wheezing Ipratropium-Albuterol (Duoneb), 1 TREATMENT INH Q4H PRN for SOB/Wheezing Allergies Coded Allergies: Levofloxacin (Unverified Allergy, Unknown, rash all over body, 04/21/17) Nitrates, Organic (Verified Allergy, Unknown, DROP IN BP, 04/21/17) Terazosin (Verified Allergy, Unknown, 04/21/17) Sulfamethoxazole w/Trimethoprim (Unverified Adverse Reaction, Severe, ITCHING, 04/21/17) Physical Exam Vital Signs Date Time Temp Pulse Resp B/P (MAP) Pulse Ox O2 Delivery O2 Flow Rate FiO2 04/21/17 15:27 85 16 169/90 93 Room Air 04/21/17 14:44 82 18 180/86 97 Room Air 04/21/17 14:04 80 04/21/17 13:50 97 Room Air 04/21/17 12:08 96 Room Air 04/21/17 12:04 36.6 88 18 132/81 96 Room Air Physical Exam CONSTITUTIONAL/VITAL SIGNS: Reviewed / noted above. GENERAL: Non-toxic in appearance. INTEGUMENTARY: Warm, dry, and [place]. HEAD: Normocephalic. EYES: without scleral icterus or trauma. ENT/OROPHARYNX: clear and moist. LYMPHADENOPATHY/NECK: Is supple without lymphadenopathy or meningismus. RESPIRATORY: Bibasilar crackles. CARDIOVASCULAR: Regular rate and rhythm. GI/ABDOMEN: Soft and nontender. No organomegaly or pulsatile mass. No rebound or guarding. Normal bowel sounds. EXTREMITIES: Warm and well perfused. BACK: No CVA tenderness. NEUROLOGICAL: Intact without focal deficits. PSYCHIATRIC: normal affect. MUSCULOSKELETAL: Normally developed with good muscle tone. Medical Decision & Procedures ER Provider Diagnostic Interpretation: X ray results and stated below per my interpretation and radiology interpretation. CHEST ONE VIEW PORTABLE HISTORY: Evaluate Fever/Sepsis COMPARISON: Chest 02/27/2017. FINDINGS: Mild interstitial thickening at the lung bases, unchanged. The heart is normal in size. The upper lung zones remain clear. No pleural effusions. No pneumothorax. IMPRESSION: Mild bibasilar interstitial thickening which is likely chronic. No new focal lung consolidations to suggest pneumonia. Electronically signed by: Rylan Archuleta M.D. 04/21/2017 3:16 PM Dictated Date/Time: 04/21/2017 3:15 PM Laboratory Results 04/21/17 13:55 Red Blood Count 4.87, Mean Corpuscular Volume 95.9, Mean Corpuscular Hemoglobin 31.6, Mean Corpuscular Hemoglobin Concent 33.0, Mean Platelet Volume 11.0, Neutrophils (%) (Auto) 86.0, Lymphocytes (%) (Auto) 4.9, Monocytes (%) (Auto) 6.5, Eosinophils (%) (Auto) 2.0, Basophils (%) (Auto) 0.2, Neutrophils # (Auto) 9.32, Lymphocytes # (Auto) 0.53, Monocytes # (Auto) 0.70, Eosinophils # (Auto) 0.22, Basophils # (Auto) 0.02 04/21/17 13:55 Test 04/21/17 13:55 White Blood Count 10.83 K/uL (4.8-10.8) Red Blood Count 4.87 M/uL (4.7-6.1) Hemoglobin 15.4 g/dL (14.0-18.0) Hematocrit 46.7 % (42-52) Mean Corpuscular Volume 95.9 fL (80-100) Mean Corpuscular Hemoglobin 31.6 pg (25-34) Mean Corpuscular Hemoglobin Concent 33.0 g/dl (32-36) Platelet Count 154 K/uL (130-400) Mean Platelet Volume 11.0 fL (7.4-10.4) Neutrophils (%) (Auto) 86.0 % Lymphocytes (%) (Auto) 4.9 % Monocytes (%) (Auto) 6.5 % Eosinophils (%) (Auto) 2.0 % Basophils (%) (Auto) 0.2 % Neutrophils # (Auto) 9.32 K/uL (1.4-6.5) Lymphocytes # (Auto) 0.53 K/uL (1.2-3.4) Monocytes # (Auto) 0.70 K/uL (0.11-0.59) Eosinophils # (Auto) 0.22 K/uL (0-0.5) Basophils # (Auto) 0.02 K/uL (0-0.2) RDW Standard Deviation 48.4 fL (36.4-46.3) RDW Coefficient of Variation 13.8 % (11.5-14.5) Immature Granulocyte % (Auto) 0.4 % Immature Granulocyte # (Auto) 0.04 K/uL (0.00-0.02) Prothrombin Time 11.3 SECONDS (9.0-12.0) Prothromb Time International Ratio 1.1 (0.9-1.1) Activated Partial Thromboplast Time 28.2 SECONDS (21.0-31.0) Partial Thromboplastin Ratio 1.1 Anion Gap 9.0 mmol/L (3-11) Est Creatinine Clear Calc Drug Dose 76.1 ml/min Estimated GFR () 89.7 Estimated GFR (Non- 77.4 BUN/Creatinine Ratio 22.3 (10-20) Calcium Level 9.3 mg/dl (8.5-10.1) Total Bilirubin 0.5 mg/dl (0.2-1) Direct Bilirubin 0.1 mg/dl (0-0.2) Aspartate Amino Transf (AST/SGOT) 26 U/L (15-37) Alanine Aminotransferase (ALT/SGPT) 37 U/L (12-78) Alkaline Phosphatase 105 U/L (45-117) Total Creatine Kinase 65 U/L (39-308) Creatine Kinase MB 0.8 ng/ml (0.5-3.6) Creatine Kinase MB Ratio 1.2 (0-3.0) Troponin I < 0.015 ng/ml (0-0.045) Total Protein 7.9 gm/dl (6.4-8.2) Albumin 3.7 gm/dl (3.4-5.0) Laboratory results as stated above per my review. ECG Indication: chest pain Rate (beats per minute): 84 Rhythm: sinus rhythm Findings: no ectopy, other (no acute injury) ED Course 1348: Previous medical records were reviewed. The patient was evaluated in room B9. A complete history and physical examination was performed. 1715: On reevaluation, the patient is resting comfortably. I discussed the results and findings with the patient. He verbalized agreement of the treatment plan. He was discharged home. Medical Decision the differential was considered includes acute myocardial infarction, acute coronary syndrome, myocarditis, pericarditis, pericardial effusions /tamponade, esophageal perforation, thoracic aortic dissection, pulmonary embolism, pneumonia, pneumothorax, pancreatitis, shingles, acute cholecystitis, perforated abdominal viscus. This is a 71-year-old male who presents to the ED with a chief complaint of some chills yesterday as well as some off-and-on dizziness. He developed some chest heaviness prior to arrival. The patient thinks it may might have bronchitis or pneumonia again. He was noted to have some wheezing by the yesterday. She does have nebulizers at home. The patient's vital signs are stable. His physical exam was unremarkable. CBC is unremarkable, chemistry panel was unremarkable, troponin is negative, chest x-ray did not show acute disease and an EKG shows sinus rhythm. The patient was told results the test. He does not have any findings to suggest pneumonia this time. He was advised to continue his nebulizers at home as needed. Follow-up with PCP in 1-2 days for recheck. Medication Reconcilliation Current Medication List: was personally reviewed by me Blood Pressure Screening Patient's blood pressure: Normal blood pressure Impression Primary Impression: Chest heaviness Scribe Attestation The scribe's documentation has been prepared under my direction and personally reviewed by me in its entirety. I confirm that the note above accurately reflects all work, treatment, procedures, and medical decision making performed by me. Departure Information Dispostion Home / Self-Care Referrals Sanjiv Hart III, M.D. (PCP) Patient Instructions My [facility] Additional Instructions Follow-up with your doctor for further care and evaluation in 1-2 days. Return to the emergency department for worsening or new symptoms or any concerns. You have been examined and treated today on an emergency basis only. This is not a substitute for, or an effort to provide, complete comprehensive medical care. It is impossible to recognize and treat all injuries or illnesses in a single emergency department visit. It is therefore important that you follow up closely with your doctor. Call as soon as possible for an appointment.
[2017-04-21] MEDS ORDERED: SODIUM CHLORIDE 0.9% 1000ML 1,000 ML IV STA (17:43)
[2017-04-21] MEDS ORDERED: DOXYCYCLINE IV 100 MG in DEXTROSE 5% 100ML 100 ML IV ONE (18:26)
[2017-04-21] MEDS ORDERED: ALBUTEROL HFA 8 GM INHALER INH PRN (18:30)
[2017-04-21] MEDS ORDERED: ONDANSETRON INJ 2 MG/ML 2 ML VIAL IV PRN (18:30)
[2017-04-21] MEDS ORDERED: ACETAMINOPHEN 325 MG TAB PO PRN (18:30)
[2017-04-21] MEDS ORDERED: ALBUT/IPRATROP 3MG/0.5MG NEB 3 ML VIAL INH PRN (18:30)
[2017-04-21] MEDS ORDERED: IV FLUIDS COMPLETED PRN (18:45)
[2017-04-21 19:36] VITALS: BP 125/66; PULSE 63; TEMP 37.7; O2SAT 92
[2017-04-21 19:37] LABS: URINE APPEARANCE CLEAR (CLEAR); URINE BILIRUBIN NEG (NEG); URINE COLOR YELLOW; URINE NITRITE NEG (NEG); URINE SPECIFIC GRAVITY 1.018 (1.000-1.030); UROBILINOGEN NEG (NEG); ZZUR CULT IF INDIC CLEAN CATCH NO
[2017-04-21 19:44] LABS: MANUAL MICROSCOPIC REQUIRED? NO; REVIEW REQ? NO
[2017-04-21 20:00] VITALS: BP 125/66; PULSE 63; TEMP 37.7; O2SAT 92; Ht 180.3 cm; Wt 89.4 kg
[2017-04-21] MEDS: NSS + 20MEQ KCL 1000ML 1,000 ML IV SCH (20:19)
--- NOTE | 2017-04-21 20:24 | HISTORY & PHYSICAL EXAMINATION ---
DATE OF ADMISSION: 04/21/2017 PRIMARY CARE PHYSICIAN: Dr. Hart. CHIEF COMPLAINT: Chills with wheezing from midnight last night. HISTORY OF PRESENT COMPLAINT: He is a 71-year-old male with significant past medical history of COPD with emphysema, depressive disorder, hyperlipidemia, hypertension, history of gastroparesis, status post PEG tube, gastroesophageal reflux disease, hypothyroidism and also history of orthostatic hypotension. Apparently, woke up at around midnight last night with shaking chills associated with cough and wheezing. He felt dizzy while he was trying to ambulate. He has had an appointment with Dr. Hart, but he could not keep it. The condition got worse with time and he was brought into the Emergency Room for further evaluation. In the ER, he was minimally febrile with a temperature of 37.9. He did not have any tachycardia and his saturation was 93% on room air and apparent test came back fairly unremarkable, but whenever he was trying to go home, he could not do that because of increasing dizziness and with significant postural drop of blood pressure. From that point, he was advised admission to the hospital. When asking questions, he admits to have cough without any phlegm. He did have wheezing but not persisting. He did have some chest pressure last night that has been relieved and did not have any nausea and/or vomiting, and he denies to have any problem with urine and/or bowel habit. PAST MEDICAL HISTORY: Significant for depression, moderate COPD, hypertension, hyperlipidemia, hypothyroidism, history of gastroparesis and is status post PEG tube placement, gastroesophageal reflux disease, and also history of orthostatic hypotension. PAST SURGICAL HISTORY: Significant for PEG tube placement, knee arthroscopy, and cervical lymph node dissection. FAMILY HISTORY: Significant for that he is . He lives with his . He has 1 child. He quit smoking in 1978 with 0.5 packs per day of smoking for 5 years. He does not use any alcohol. FAMILY HISTORY: Significant for mother of unknown cancer. Brother has diabetes, also heart disorder. ALLERGIES: HE IS ALLERGIC TO LEVOFLOXACIN, NIFEREX, TERAZOSIN, AND TRIMETHOPRIM AND SULFAMETHOXAZOLE. MEDICATIONS: He has been on albuterol, Boost Plus 1 can 4 times daily through the PEG tube, Florinef as directed, Flovent Diskus 1 puff b.i.d., DuoNeb 3 mL nebulizer solution q. 4 hourly p.r.n., Synthroid 100 mcg daily, Zoloft 25 mg daily, Ellipta 62.5 mcg/25 mcg one puff daily. REVIEW OF SYSTEMS: Other systemic review unremarkable except for those mentioned in history of present complaint. PHYSICAL EXAMINATION: GENERAL: On examination in the Emergency Room, he was not having any acute distress. He was feeling warm. VITAL SIGNS: Temperature 37.9, pulse was 83, blood pressure 169/90 but with significant orthostasis. Blood pressure noted during orthostasis to be 93/55 supine, 75/45 sitting and 66/47 standing with dizziness. HEENT: Unremarkable. NECK: Supple. No JVD, no bruit. CHEST: Decreased breath sounds but no wheezing and/or crackles. HEART: S1 and S2 regular. ABDOMEN: Soft, benign. PEG tube site is intact. Bowel sounds present. EXTREMITIES: Negative for any edema. MUSCULOSKELETAL: Did not show any acute arthritis. CENTRAL NERVOUS SYSTEM: He is alert, awake, and oriented. He is aphacic. LABORATORY DATA: Labs noted today; white count was 10.83, H&H 15.4/46.7, platelets of 154. Sodium 140, potassium 3.4, chloride 104, carbon dioxide 27, BUN 22, creatinine 0.99. LFTs unremarkable. Troponin less than 0.015, CK and CK-MB are normal. EKG was in sinus rhythm, rate of 84 per minute, and nonspecific ST-T wave changes. Component of left anterior hemiblock noted as well. Chest x-ray; mild bibasilar interstitial thickening which is likely chronic. No new focal lung consolidation is there to suggest pneumonia. UA is pending. IMPRESSION AND PLAN: 1. Febrile illness. The patient has had significant chills at home. He has had sepsis secondary to pneumonia recently and that required will quite a few days of hospitalization. He may have been developing pneumonia, nothing to suggest any aspiration at this time. Blood cultures, urine culture have been taken, and we will start with intravenous doxycycline and get chest x-ray tomorrow morning. He will be given cautious amount of IV fluid as well.R/O Flu 2. Chronic obstructive pulmonary disease, he does not have anything to suggest exacerbation. We will continue with his usual inhalers. 3. Hypothyroidism. Continue replacement. 4. Hypertension. Blood pressure seems to be low at this time with orthostatic hypotension. We will give IV fluid and monitor orthostasis in the hospital. 5. Gastroparesis, status post PEG tube. We will maintain the PEG tube feeding while in the hospital. 6. Deep venous thrombosis prophylaxis with subcutaneous heparin. 7. Gastrointestinal prophylaxis with Maalox and Mylanta as needed. 8. Code status. Discussed with the patient. He will be full code. 9. He has history of methicillin-resistant Staphylococcus aureus. In my clinical assessment, the beneficiary meets criteria as per CMS for 2 midnight stay in the hospital. YANELID
[2017-04-21] MEDS: BOOST PLUS VANILLA PEG SCH ×2 (21:00)
[2017-04-21] MEDS ORDERED: INFLUENZA VACCINE HIGH DOSE 65+ 0.5 ML SYR IM. ONE (21:45)
[2017-04-21] MEDS ORDERED: INFLUENZA ADMINISTRATION CHARGE ONE (21:45)
[2017-04-21] MEDS ORDERED: OSELTAMIVIR PHOSPHATE 75 MG CAP PO STA (21:57)
[2017-04-21] MEDS: HEPARIN SOD 5000 UNIT/0.5 ML CARP SQ SCH (21:58)
[2017-04-21] MEDS ORDERED: NURSING VERBAL MED ORDER ONE (22:00)
[2017-04-21 22:46] VITALS: BP 109/64; PULSE 86; TEMP 38.5; O2SAT 93
[2017-04-22 00:56] VITALS: TEMP 37.4
[2017-04-22] MEDS: HEPARIN SOD 5000 UNIT/0.5 ML CARP SQ SCH ×3 (05:42→21:17)
[2017-04-22] MEDS: NSS + 20MEQ KCL 1000ML 1,000 ML IV SCH (06:14)
[2017-04-22] MEDS: DOXYCYCLINE IV 100 MG in DEXTROSE 5% 100ML 100 ML IV SCH ×2 (06:17→17:11)
[2017-04-22 07:08] VITALS: BP 104/55; PULSE 69; TEMP 37.3; O2SAT 96
[2017-04-22] MEDS: UMECLIDINIUM-VILANTEROL (ANORO) INH SCH (08:04)
[2017-04-22] MEDS: FLUTICASONE HFA 110MCG INHALER INH PRN (08:05)
[2017-04-22] MEDS: OSELTAMIVIR PHOSPHATE 75 MG CAP PO SCH ×2 (08:06→21:15)
[2017-04-22] MEDS: FLUDROCORTISONE ACETATE 0.1 MG TAB PEG SCH (08:06)
[2017-04-22] MEDS: BOOST PLUS VANILLA PEG SCH ×8 (08:06→21:14)
[2017-04-22] MEDS: LEVOTHYROXINE 100 MCG TAB PEG SCH (08:06)
[2017-04-22] MEDS: SERTRALINE HCL 50 MG TAB PO SCH (08:07)
[2017-04-22] MEDS ORDERED: FLUTICASONE HFA 110MCG INHALER INH SCH (09:00)
[2017-04-22 10:59] LABS: HEMATOCRIT 39.3 % (42-52); MEAN CELL VOLUME 96.6 fL (80-100); MEAN CORPUSCULAR HGB CONC 32.1 g/dl (32-36); MEAN PLATELET VOLUME 10.7 fL (7.4-10.4); PLATELET COUNT 110 K/uL (130-400); RED BLOOD COUNT 4.07 M/uL (4.7-6.1); WHITE BLOOD COUNT 4.74 K/uL (4.8-10.8)
[2017-04-22 11:14] VITALS: O2SAT 94
[2017-04-22 11:27] LABS: BUN/CREATININE RATIO 23.6 (10-20); CREATININE 0.8 mg/dl (0.60-1.40); MAGNESIUM 2.3 mg/dl (1.8-2.4); POTASSIUM 3.9 mmol/L (3.5-5.1)
[2017-04-22 13:13] VITALS: TEMP 37.2
[2017-04-22 14:49] VITALS: BP 128/65; PULSE 72; TEMP 37.3; O2SAT 96
--- NOTE | 2017-04-22 16:10 | Progress Note ---
Internal Med Progress Note Date of Service: Apr 22, 2017. Provider Documentation: SUBJECTIVE: The patient was seen and examined Clinically a lot better Denies any SOB,Palpitation,Chest pain OBJECTIVE: Vital Signs-as noted below Exam: General-NO distress at rest Eyes-normal ENT-normal Neck-supple Lungs-Decreased breath sound bilaterally No wheezing and or crackles Heart-Regular,no murmur Abdomen-Benign,no masses,bowel sound present Extremities-No edema Neuro-AAOx3 Lab data as noted below. ASSESSMENT & PLAN: Influenza Febrile illness. Started on Tamiflu Respiratory isolation Clinically better today Acute Bronchitis He may have been developing pneumonia, nothing to suggest any aspiration at this time. He has history of methicillin-resistant Staphylococcus aureus. Blood cultures, urine culture have been taken, Started on IV Doxy Will change to oral from today Recent admission due to Respiratory Failure Chronic obstructive pulmonary disease, he does not have anything to suggest exacerbation. We will continue with his usual inhalers. Hypothyroidism. Continue replacement. Hypertension. Blood pressure seems to be low at this time with orthostatic hypotension. We will give IV fluid and monitor orthostasis in the hospital. Gastroparesis, status post PEG tube. We will maintain the PEG tube feeding while in the hospital. Deep venous thrombosis prophylaxis with subcutaneous heparin. Gastrointestinal prophylaxis with Maalox and Mylanta as needed. Code status. Discussed with the patient. He will be full code. Vital Signs: Date Time Temp Pulse Resp B/P (MAP) Pulse Ox O2 Delivery O2 Flow Rate FiO2 04/22/17 14:49 37.3 72 18 128/65 (86) 96 Room Air 04/22/17 13:13 37.2 04/22/17 11:14 94 Room Air 04/22/17 10:19 Nasal Cannula 2.0 04/22/17 07:08 37.3 69 20 104/55 (71) 96 04/22/17 00:56 37.4 04/22/17 00:00 Nasal Cannula 2.0 04/21/17 22:46 38.5 86 18 109/64 (79) 93 Nasal Cannula 2.0 04/21/17 20:00 37.7 63 18 125/66 92 Nasal Cannula 2.0 04/21/17 19:36 37.7 63 18 125/66 (85) 92 Nasal Cannula 2.0 04/21/17 17:56 83 04/21/17 17:43 72 16 95/55 97 Nasal Cannula 3.0 04/21/17 17:40 37.9 76 93/55 88 Room Air 77 75/45 73 66/47 Lab Results: Results Past 24 Hours Test 04/21/17 17:46 04/21/17 19:26 04/22/17 10:38 Range/Units Bedside Glucose 113 70-99 mg/dl Urine Color YELLOW Urine Appearance CLEAR CLEAR Urine pH 8.0 4.5-7.5 Urine Specific Champion 1.018 1.000-1.030 Urine Protein NEG NEG Urine Glucose (UA) NEG NEG Urine Ketones NEG NEG Urine Occult Blood NEG NEG Urine Nitrite NEG NEG Urine Bilirubin NEG NEG Urine Urobilinogen NEG NEG Urine Leukocyte Esterase NEG NEG Urine WBC (Auto) 1-5 0-5 /hpf Urine RBC (Auto) 0-4 0-4 /hpf Urine Hyaline Casts (Auto) 1-5 0-5 /lpf Urine Epithelial Cells (Auto) 10-20 0-5 /lpf Urine Bacteria (Auto) NEG NEG White Blood Count 4.74 4.8-10.8 K/uL Red Blood Count 4.07 4.7-6.1 M/uL Hemoglobin 12.6 14.0-18.0 g/dL Hematocrit 39.3 42-52 % Mean Corpuscular Volume 96.6 80-100 fL Mean Corpuscular Hemoglobin 31.0 25-34 pg Mean Corpuscular Hemoglobin Concent 32.1 32-36 g/dl RDW Standard Deviation 50.1 36.4-46.3 fL RDW Coefficient of Variation 14.1 11.5-14.5 % Platelet Count 110 130-400 K/uL Mean Platelet Volume 10.7 7.4-10.4 fL Sodium Level 144 136-145 mmol/L Potassium Level 3.9 3.5-5.1 mmol/L Chloride Level 111 98-107 mmol/L Carbon Dioxide Level 26 21-32 mmol/L Anion Gap 7.0 3-11 mmol/L Blood Urea Nitrogen 19 7-18 mg/dl Creatinine 0.80 0.60-1.40 mg/dl Est Creatinine Clear Calc Drug Dose 92.8 ml/min Estimated GFR () 105.6 Estimated GFR (Non- 91.1 BUN/Creatinine Ratio 23.6 10- Random Glucose 54 70-99 mg/dl Calcium Level 8.0 8.5-10.1 mg/dl Magnesium Level 2.3 1.8-2.4 mg/dl Microbiology Results 04/21/17 Blood Culture, Received Pending 04/21/17 Blood Culture, Received Pending
[2017-04-23] VITALS: BP 128/53; PULSE 78; TEMP 37.2; O2SAT 95
[2017-04-23] MEDS: HEPARIN SOD 5000 UNIT/0.5 ML CARP SQ SCH ×2 (05:56→11:57)
[2017-04-23] MEDS: DOXYCYCLINE IV 100 MG in DEXTROSE 5% 100ML 100 ML IV SCH (05:57)
[2017-04-23 07:41] VITALS: BP 133/71; PULSE 65; TEMP 37.3; O2SAT 94
[2017-04-23] MEDS: BOOST PLUS VANILLA PEG SCH ×4 (07:53→12:08)
[2017-04-23] MEDS: LEVOTHYROXINE 100 MCG TAB PEG SCH (07:54)
[2017-04-23] MEDS: OSELTAMIVIR PHOSPHATE 75 MG CAP PO SCH (07:54)
[2017-04-23] MEDS: SERTRALINE HCL 50 MG TAB PO SCH (07:54)
[2017-04-23] MEDS: FLUDROCORTISONE ACETATE 0.1 MG TAB PEG SCH (07:54)
[2017-04-23] MEDS: UMECLIDINIUM-VILANTEROL (ANORO) INH SCH (07:58)
[2017-04-23] MEDS: FLUTICASONE HFA 110MCG INHALER INH PRN (07:58)
[2017-04-23 08:34] VITALS: O2SAT 94
--- NOTE | 2017-04-23 12:16 | Progress Note ---
Internal Med Progress Note Date of Service: Apr 23, 2017. Provider Documentation: SUBJECTIVE: The patient was seen and examined Clinically a lot better Denies any SOB,Palpitation,Chest pain No symptoms Ambulating well -will go home today OBJECTIVE: Vital Signs-as noted below Exam: General-NO distress at rest Eyes-normal ENT-normal Neck-supple Lungs-Decreased breath sound bilaterally No wheezing and or crackles Heart-Regular,no murmur Abdomen-Benign,no masses,bowel sound present Extremities-No edema Neuro-AAOx3 Lab data as noted below. ASSESSMENT & PLAN: Influenza B Febrile illness. Started on Tamiflu Respiratory isolation Clinically much better today Will discharge home today Possible Acute Bronchitis He may have been developing pneumonia, nothing to suggest any aspiration at this time. He has history of methicillin-resistant Staphylococcus aureus. Blood cultures, urine culture have been taken, Started on IV Doxy Will change to oral from today Recent admission due to Respiratory Failure Will discontinue antibiotic Chronic obstructive pulmonary disease, he does not have anything to suggest exacerbation. We will continue with his usual inhalers. Hypothyroidism. Continue replacement. Hypertension. Blood pressure seems to be low at this time with orthostatic hypotension. We will give IV fluid and monitor orthostasis in the hospital. Gastroparesis, status post PEG tube. We will maintain the PEG tube feeding while in the hospital. Deep venous thrombosis prophylaxis with subcutaneous heparin. Gastrointestinal prophylaxis with Maalox and Mylanta as needed. Code status. Discussed with the patient. He will be full code. Discharge home today Vital Signs: Date Time Temp Pulse Resp B/P (MAP) Pulse Ox O2 Delivery O2 Flow Rate FiO2 04/23/17 10:44 Room Air 04/23/17 08:34 94 Room Air 04/23/17 07:41 37.3 65 17 133/71 (91) 94 Room Air 04/23/17 00:00 Room Air 04/23/17 00:00 37.2 78 18 128/53 (78) 95 Room Air 04/22/17 16:17 Room Air 04/22/17 14:49 37.3 72 18 128/65 (86) 96 Room Air 04/22/17 13:13 37.2
[2017-04-23 12:41] VITALS: BP 133/71; PULSE 65; TEMP 37.3; O2SAT 94
[2017-04-23] MEDS ORDERED: TMF75 PO (12:57)
[2017-04-23] MEDS ORDERED: OSELTAMIVIR PHOSPHATE 75 MG CAP PO SCH (13:00)
--- NOTE | 2017-04-23 13:00 | Discharge Instructions ---
Discharge Instructions Date of Service Apr 23, 2017. Admission Reason for Admission: Copd, Febrile Illness, Orthostatic Hypotension Discharge Discharge Diagnosis / Problem: Influenza B Discharge Goals Goal(s): Prevent Disease Progression Activity Recommendations Activity Limitations: resume your previous activity . Instructions / Follow-Up Instructions / Follow-Up Dr Hart on 04/28/17 at 10:45 AM Current Hospital Diet Patient's current hospital diet: AHA Diet (Heart Healthy) Discharge Diet Recommended Diet: AHA Diet (Heart Healthy) Pending Studies Studies pending at discharge: no Medical Emergencies . Who to Call and When: Medical Emergencies: If at any time you feel your situation is an emergency, please call 911 immediately. . Non-Emergent Contact Non-Emergency issues call your: Primary Care Provider . Past History Medical & Surgical History: (1) Influenza B (2) Febrile illness (3) COPD (chronic obstructive pulmonary disease) with emphysema (4) Dyslipidemia (5) Gastroesophageal reflux disease (6) Tonsil carcinoma (7) Depression (8) Gastroparesis (9) H/O esophagogastroduodenoscopy (10) S/P arthroscopic knee surgery (11) S/P colonoscopy (12) s/p modified radical neck dissection . "Provider Documentation" section prepared by Deja Soto. . VTE Core Measure Inpt VTE Proph given/why not?: Unfractionated heparin SQ
--- NOTE | 2017-04-24 08:12 | Discharge Summary ---
Discharge Summary Date of Service Apr 24, 2017. Discharge Summary Admission Date: Apr 22, 2017 at 15:05 Discharge Date: Apr 23, 2017 Discharge Disposition: Home Principal Diagnosis: Influenza B Secondary Diagnoses/Problems: Please see H&P and Hospital Progress note Medication Reconciliation New Medications: Oseltamivir Phosphate (Tamiflu) 75 Mg Cap 75 MG PO BID for 1 Day, #2 CAP Continued Medications: Albuterol Hfa (Ventolin Hfa) 200 Puffs/47921 Mcg Aers 2 PUFF INH Q4 PRN for wheezing, #1 INHALER Enteral Nutrition Formula (Boost Plus) 1 Can Liqd 2 CAN PEG QID Fludrocortisone Acetate (Florinef) 0.1 Mg Tab 0.1-0.3 MG PEG DAILY TAKE DIRECTED BY MD FOR HYPOTENSION. TAKES UP TO 3X A DAY NEED FOR INCREASING BP. Fluticasone Propionate (Inhala (Flovent Diskus) 100 Mcg/Blist Aer 1 PUFFS INH BID PRN for SOB/Wheezing, #1 INHALER 5 Refills Ipratropium-Albuterol (Duoneb) 3 Ml Nebu 1 TREATMENT INH Q4H PRN for SOB/Wheezing, INHA Levothyroxine Sodium (Synthroid) 100 Mcg Tab 100 MCG PEG QAM Sertraline (Zoloft) 25 Mg Tab 1 TAB PO DAILY for 30 Days, #30 TAB 2 Refills Umeclidinium-Vilanterol (Anoro Ellipta 62.5-25 Mcg/INH) 1 Aer Aer 1 PUFF INH DAILY Admission Information HPI (per Admitting provider): DATE OF ADMISSION: 04/21/2017 PRIMARY CARE PHYSICIAN: Dr. Hart. CHIEF COMPLAINT: Chills with wheezing from midnight last night. HISTORY OF PRESENT COMPLAINT: He is a 71-year-old male with significant past medical history of COPD with emphysema, depressive disorder, hyperlipidemia, hypertension, history of gastroparesis, status post PEG tube, gastroesophageal reflux disease, hypothyroidism and also history of orthostatic hypotension. Apparently, woke up at around midnight last night with shaking chills associated with cough and wheezing. He felt dizzy while he was trying to ambulate. He has had an appointment with Dr. Hart, but he could not keep it. The condition got worse with time and he was brought into the Emergency Room for further evaluation. In the ER, he was minimally febrile with a temperature of 37.9. He did not have any tachycardia and his saturation was 93% on room air and apparent test came back fairly unremarkable, but whenever he was trying to go home, he could not do that because of increasing dizziness and with significant postural drop of blood pressure. From that point, he was advised admission to the hospital. When asking questions, he admits to have cough without any phlegm. He did have wheezing but not persisting. He did have some chest pressure last night that has been relieved and did not have any nausea and/or vomiting, and he denies to have any problem with urine and/or bowel habit. PAST MEDICAL HISTORY: Significant for depression, moderate COPD, hypertension, hyperlipidemia, hypothyroidism, history of gastroparesis and is status post PEG tube placement, gastroesophageal reflux disease, and also history of orthostatic hypotension. PAST SURGICAL HISTORY: Significant for PEG tube placement, knee arthroscopy, and cervical lymph node dissection. FAMILY HISTORY: Significant for that he is . He lives with his . He has 1 child. He quit smoking in 1978 with 0.5 packs per day of smoking for 5 years. He does not use any alcohol. FAMILY HISTORY: Significant for mother of unknown cancer. Brother has diabetes, also heart disorder. ALLERGIES: HE IS ALLERGIC TO LEVOFLOXACIN, NIFEREX, TERAZOSIN, AND TRIMETHOPRIM AND SULFAMETHOXAZOLE. MEDICATIONS: He has been on albuterol, Boost Plus 1 can 4 times daily through the PEG tube, Florinef as directed, Flovent Diskus 1 puff b.i.d., DuoNeb 3 mL nebulizer solution q. 4 hourly p.r.n., Synthroid 100 mcg daily, Zoloft 25 mg daily, Ellipta 62.5 mcg/25 mcg one puff daily. REVIEW OF SYSTEMS: Other systemic review unremarkable except for those mentioned in history of present complaint. PHYSICAL EXAMINATION: GENERAL: On examination in the Emergency Room, he was not having any acute distress. He was feeling warm. VITAL SIGNS: Temperature 37.9, pulse was 83, blood pressure 169/90 but with significant orthostasis. Blood pressure noted during orthostasis to be 93/55 supine, 75/45 sitting and 66/47 standing with dizziness. HEENT: Unremarkable. NECK: Supple. No JVD, no bruit. CHEST: Decreased breath sounds but no wheezing and/or crackles. HEART: S1 and S2 regular. ABDOMEN: Soft, benign. PEG tube site is intact. Bowel sounds present. EXTREMITIES: Negative for any edema. MUSCULOSKELETAL: Did not show any acute arthritis. CENTRAL NERVOUS SYSTEM: He is alert, awake, and oriented. He is aphacic. LABORATORY DATA: Labs noted today; white count was 10.83, H&H 15.4/46.7, platelets of 154. Sodium 140, potassium 3.4, chloride 104, carbon dioxide 27, BUN 22, creatinine 0.99. LFTs unremarkable. Troponin less than 0.015, CK and CK-MB are normal. EKG was in sinus rhythm, rate of 84 per minute, and nonspecific ST-T wave changes. Component of left anterior hemiblock noted as well. Chest x-ray; mild bibasilar interstitial thickening which is likely chronic. No new focal lung consolidation is there to suggest pneumonia. UA is pending. IMPRESSION AND PLAN: 1. Febrile illness. The patient has had significant chills at home. He has had sepsis secondary to pneumonia recently and that required will quite a few days of hospitalization. He may have been developing pneumonia, nothing to suggest any aspiration at this time. Blood cultures, urine culture have been taken, and we will start with intravenous doxycycline and get chest x-ray tomorrow morning. He will be given cautious amount of IV fluid as well.R/O Flu 2. Chronic obstructive pulmonary disease, he does not have anything to suggest exacerbation. We will continue with his usual inhalers. 3. Hypothyroidism. Continue replacement. 4. Hypertension. Blood pressure seems to be low at this time with orthostatic hypotension. We will give IV fluid and monitor orthostasis in the hospital. 5. Gastroparesis, status post PEG tube. We will maintain the PEG tube feeding while in the hospital. 6. Deep venous thrombosis prophylaxis with subcutaneous heparin. 7. Gastrointestinal prophylaxis with Maalox and Mylanta as needed. 8. Code status. Discussed with the patient. He will be full code. 9. He has history of methicillin-resistant Staphylococcus aureus. In my clinical assessment, the beneficiary meets criteria as per CMS for 2 midnight stay in the hospital. Hospital Course Influenza B Febrile illness. Started on Tamiflu Respiratory isolation Clinically much better today Will discharge home today Possible Acute Bronchitis He may have been developing pneumonia, nothing to suggest any aspiration at this time. He has history of methicillin-resistant Staphylococcus aureus. Blood cultures, urine culture have been taken, Started on IV Doxy Will change to oral from today Recent admission due to Respiratory Failure Will discontinue antibiotic Chronic obstructive pulmonary disease, he does not have anything to suggest exacerbation. We will continue with his usual inhalers. Hypothyroidism. Continue replacement. Hypertension. Blood pressure seems to be low at this time with orthostatic hypotension. We will give IV fluid and monitor orthostasis in the hospital. Gastroparesis, status post PEG tube. We will maintain the PEG tube feeding while in the hospital. Deep venous thrombosis prophylaxis with subcutaneous heparin. Gastrointestinal prophylaxis with Maalox and Mylanta as needed. Code status. Discussed with the patient. He will be full code. Discharge home today Total time spent on discharge = 35 minutes This includes examination of the patient, discharge planning, medication reconciliation, and communication with other providers. Discharge Instructions Date of Service Apr 23, 2017. Admission Reason for Admission: Copd, Febrile Illness, Orthostatic Hypotension Discharge Discharge Diagnosis / Problem: Influenza B Discharge Goals Goal(s): Prevent Disease Progression Activity Recommendations Activity Limitations: resume your previous activity . Instructions / Follow-Up Instructions / Follow-Up Dr Hart on 04/28/17 at 10:45 AM Current Hospital Diet Patient's current hospital diet: AHA Diet (Heart Healthy) Discharge Diet Recommended Diet: AHA Diet (Heart Healthy) Pending Studies Studies pending at discharge: no Medical Emergencies . Who to Call and When: Medical Emergencies: If at any time you feel your situation is an emergency, please call 911 immediately. . Non-Emergent Contact Non-Emergency issues call your: Primary Care Provider . Past History Medical & Surgical History: (1) Influenza B (2) Febrile illness (3) COPD (chronic obstructive pulmonary disease) with emphysema (4) Dyslipidemia (5) Gastroesophageal reflux disease (6) Tonsil carcinoma (7) Depression (8) Gastroparesis (9) H/O esophagogastroduodenoscopy (10) S/P arthroscopic knee surgery (11) S/P colonoscopy (12) s/p modified radical neck dissection . "Provider Documentation" section prepared by Deja Soto. . VTE Core Measure Inpt VTE Proph given/why not?: Unfractionated heparin SQ <Electronically signed by Deja Soto M.D.> Signed: 04/23/17 1300 Additional Copies To Sanjiv Hart III, M.D.
== END 2017-04-23 14:16 | disposition home or self-care (01) | DRG 194 ==
LOC: C.EDB 12:00 → C.MS2W 18:29 → ENRESERV 18:35 → OBSVTOIN 04-22 15:05
PROVIDERS: ADMIT Internal Medicine; ATTEND Internal Medicine
DX: J10.1 Influenza due to other identified influenza virus with other respiratory manifestations (principal); J44.0 Chronic obstructive pulmonary disease with (acute) lower respiratory infection; I95.1 Orthostatic hypotension; G89.29 Other chronic pain; K21.9 Gastro-esophageal reflux disease without esophagitis; F32.9 Major depressive disorder, single episode, unspecified; J45.909 Unspecified asthma, uncomplicated; E03.9 Hypothyroidism, unspecified; E78.5 Hyperlipidemia, unspecified; J20.9 Acute bronchitis, unspecified; K31.84 Gastroparesis; I10 Essential (primary) hypertension; Z87.01 Personal history of pneumonia (recurrent); Z87.891 Personal history of nicotine dependence; Z80.9 Family history of malignant neoplasm, unspecified; Z83.3 Family history of diabetes mellitus; Z82.49 Family history of ischemic heart disease and other diseases of the circulatory system

== ENCOUNTER 2017-06-11 00:57 | Inpatient (IN) | payer OTHER ==
[~2017-06-11] VITALS: Ht 180.3 cm; Wt 91.4 kg
[2017-06-11] VITALS (11 sets, daily range): BP systolic 72–109; BP diastolic 30–61; PULSE 66–99; TEMP 37–39.4; O2SAT 92–95; Ht 180.3 cm; Wt 91.4 kg
[~2017-06-11 00:57] MED LIST changes: +CLX20 PO; -FLR/1 PEG; +FLUD0.1T PEG; +LORA-741 PEG; -PRED10TA PO; -SERT50TA PEG
[2017-06-11] MEDS ORDERED: ALBUT/IPRATROP 3MG/0.5MG NEB 3 ML VIAL INH STA (01:22)
[2017-06-11 01:40] LABS: BASO % 0.3 %; BASO ABS # 0.02 K/uL (0-0.2); COMPLETE YES; EOS % 3.5 %; HEMATOCRIT 43.5 % (42-52); IG% 0.3 %; LYMPH % 10.7 %; MEAN CELL VOLUME 96.2 fL (80-100); MEAN CORPUSCULAR HEMOGLOBIN 32.1 pg (25-34); MEAN CORPUSCULAR HGB CONC 33.3 g/dl (32-36); MEAN PLATELET VOLUME 11.6 fL (7.4-10.4); MONO % 10.7 %; NEUT % 74.5 %; PLATELET COUNT 138 K/uL (130-400); RED BLOOD COUNT 4.52 M/uL (4.7-6.1); WHITE BLOOD COUNT 6.57 K/uL (4.8-10.8)
[2017-06-11] MEDS ORDERED: CITA20TA4 PO (01:40)
[2017-06-11] MEDS ORDERED: LORA-741 PEG (01:42)
[2017-06-11] MEDS ORDERED: FLUD0.1T10 PEG (01:43)
[2017-06-11] MEDS ORDERED: SERT50TA PO (01:44)
[2017-06-11 02:10] LABS: URINE APPEARANCE TURBID (CLEAR); URINE BILIRUBIN NEG (NEG); URINE COLOR YELLOW; URINE NITRITE NEG (NEG); URINE PH 7.5 (4.5-7.5); URINE SPECIFIC GRAVITY 1.021 (1.000-1.030); UROBILINOGEN NEG (NEG); ZZUR CULT IF INDIC CLEAN CATCH NO
[2017-06-11] MEDS ORDERED: SODIUM CHLORIDE 0.9% 1000ML 1,000 ML IV STA (02:13)
[2017-06-11 02:22] LABS: MANUAL MICROSCOPIC REQUIRED? NO; REVIEW REQ? NO
[2017-06-11 02:24] LABS: ALB/GLOB RATIO 0.8 (0.9-2); BUN/CREATININE RATIO 21.6 (10-20); CALCIUM 8.1 mg/dl (8.5-10.1); CREATININE 0.97 mg/dl (0.60-1.40); POTASSIUM 3.6 mmol/L (3.5-5.1)
[2017-06-11] MEDS ORDERED: ACETAMINOPHEN 500 MG TAB PO STA (02:26)
[2017-06-11] MEDS ORDERED: IBUPROFEN 800 MG TAB PO STA (02:33)
[2017-06-11] MEDS ORDERED: CEFEPIME IV 2,000 MG in DEXTROSE 5% 100ML 100 ML IV STA (02:46)
[2017-06-11] MEDS ORDERED: VANCOMYCIN INJ 2,000 MG in SODIUM CHLORIDE 0.9% 500ML 500 ML IV STA (02:46)
[2017-06-11] MEDS ORDERED: CEFEPIME IV 2,000 MG in SYRINGE 7.5 ML IV SCH (02:46)
[2017-06-11] MEDS ORDERED: AZITHROMYCIN IV 500 MG in DEXTROSE 5% 250ML 250 ML IV ONE (03:00)
[2017-06-11] MEDS ORDERED: LORAZEPAM 2 MG/ML 1 ML VIAL IV STA (03:54)
--- NOTE | 2017-06-11 04:01 | EMERGENCY ROOM VISIT NOTE ---
ED Visit Note First contact with patient: 01:07 Pt seen and examined after discussion with the PA. Patient admitted to the hospitalist. Patient and aware of all results.
[2017-06-11] MEDS ORDERED: LORAZEPAM 0.5 MG TAB PEG PRN ×2 (04:30→06:15)
[2017-06-11] MEDS ORDERED: IBUPROFEN 200 MG/10 ML UDC GT STA (05:33)
--- NOTE | 2017-06-11 05:36 | EMERGENCY ROOM VISIT NOTE ---
History First contact with patient: :07 Chief Complaint: ILLNESS Stated Complaint: FEVER, WHEEZING, CHILLS History of Present Illness The patient is a 71 year old male who presents to the Emergency Room with complaints of cough, wheezing and fevers/chills which started yesterday. The patient has had a productive cough. He has had fevers and chills. He rates his discomfort a 5/10. He states this feels like when he has had pneumonia in the past. He has been using his inhalers without relief. He has a history of COPD. He reports nausea, but no vomiting or abdominal pain. 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 He now receives all of his nutrition through a feeding tube. The patient has a history of MRSA and aspiration. He denies neck stiffness, headache, chest pain , abdominal pain or urinary symptoms. Review of Systems A complete 10 point review of systems was reviewed with the patient with pertinent positives and negatives as per history of present illness. All else were negative. 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 (9) Dyslipidemia (10) Febrile illness (11) Gastroesophageal reflux disease (12) Gastroparesis (13) Influenza B (14) Orthostatic hypotension (15) Orthostatic hypotension (16) Pneumonia (17) Respiratory failure, acute (18) Sepsis (19) Tonsil carcinoma Surgical Problems: (1) H/O esophagogastroduodenoscopy (2) S/P arthroscopic knee surgery (3) S/P colonoscopy (4) s/p modified radical neck dissection Family History Cancer Diabetes mellitus Heart disease Hypertension Lung disease Social History Smoking Status: Never Smoker Alcohol Use: none Drug Use: none Housing Status: lives with significant other Occupation Status: disabled Current/Historical Medications Scheduled Citalopram Hydrobromide (Citalopram Hydrobromide), 10 MG PO DAILY Enteral Nutrition Formula (Boost Plus), 2 CAN PEG QID Fludrocortisone Acetate (Florinef), 0.1 MG PEG DAILY Levothyroxine Sodium (Synthroid), 100 MCG PEG QAM Umeclidinium-Vilanterol (Anoro Ellipta 62.5-25 Mcg/INH), 1 PUFF INH DAILY Scheduled PRN Albuterol Hfa (Ventolin Hfa), 2 PUFF INH Q4 PRN for wheezing Fluticasone Propionate (Inhala (Flovent Diskus), 1 PUFFS INH BID PRN for SOB/ Wheezing Ipratropium-Albuterol (Duoneb), 1 TREATMENT INH Q4H PRN for SOB/Wheezing Lorazepam (Ativan), 0.5 MG PEG DAILY PRN for Anxiety Physical Exam Vital Signs Date Time Temp Pulse Resp B/P (MAP) Pulse Ox O2 Delivery O2 Flow Rate FiO2 06/11/17 04:07 38.9 101 28 92/57 91 Nasal Cannula 2.0 06/11/17 03:15 103 28 124/72 94 2.0 06/11/17 02:24 39.4 100 24 144/70 93 Nasal Cannula 2.0 06/11/17 01:46 91 06/11/17 01:42 86 24 140/69 97 Nebulizer 7.0 06/11/17 01:42 93 Nasal Cannula 2.0 06/11/17 01:41 92 Room Air T-piece 06/11/17 01:01 38.1 81 18 123/80 94 Room Air Physical Exam VITALS: Vitals are noted on the nurse's note and reviewed by myself. Vital signs stable. GENERAL: This is a 71-year-old male, chronically ill-appearing. SKIN: The skin was without rashes. EARS: External auditory canals clear, tympanic membranes pearly ferguson without erythema or effusion bilaterally. EYES: Pupils equal round and reactive to light and accommodation. MOUTH: Mucous membranes moist. Tonsils are not enlarged. Pharynx without erythema or exudate. NECK: Supple without nuchal rigidity. HEART: Regular rate and rhythm without murmurs gallops or rubs. LUNGS: Scattered crackles and wheezes throughout all lung chow. ABDOMEN: Positive bowel sounds x 4. Soft, nontender to palpation. NEURO: Patient was alert and oriented to person place and time. Medical Decision & Procedures ER Provider Diagnostic Interpretation: CHEST X-RAY: Patchy opacities in bilateral bases, possible developing pneumonia right lower lobe. No pneumothorax. Laboratory Results 06/11/17 01:25 Red Blood Count 4.52, Mean Corpuscular Volume 96.2, Mean Corpuscular Hemoglobin 32.1, Mean Corpuscular Hemoglobin Concent 33.3, Mean Platelet Volume 11.6, Neutrophils (%) (Auto) 74.5, Lymphocytes (%) (Auto) 10.7, Monocytes (%) (Auto) 10.7, Eosinophils (%) (Auto) 3.5, Basophils (%) (Auto) 0.3, Neutrophils # (Auto ) 4.90, Lymphocytes # (Auto) 0.70, Monocytes # (Auto) 0.70, Eosinophils # (Auto ) 0.23, Basophils # (Auto) 0.02 06/11/17 01:25 Test 06/11/17 01:25 06/11/17 01:34 06/11/17 01:37 06/11/17 01:55 White Blood Count 6.57 K/uL (4.8-10.8) Red Blood Count 4.52 M/uL (4.7-6.1) Hemoglobin 14.5 g/dL (14.0-18.0) Hematocrit 43.5 % (42-52) Mean Corpuscular Volume 96.2 fL (80-100) Mean Corpuscular Hemoglobin 32.1 pg (25-34) Mean Corpuscular Hemoglobin Concent 33.3 g/dl (32-36) Platelet Count 138 K/uL (130-400) Mean Platelet Volume 11.6 fL (7.4-10.4) Neutrophils (%) (Auto) 74.5 % Lymphocytes (%) (Auto) 10.7 % Monocytes (%) (Auto) 10.7 % Eosinophils (%) (Auto) 3.5 % Basophils (%) (Auto) 0.3 % Neutrophils # (Auto) 4.90 K/uL (1.4-6.5) Lymphocytes # (Auto) 0.70 K/uL (1.2-3.4) Monocytes # (Auto) 0.70 K/uL (0.11-0.59) Eosinophils # (Auto) 0.23 K/uL (0-0.5) Basophils # (Auto) 0.02 K/uL (0-0.2) RDW Standard Deviation 49.4 fL (36.4-46.3) RDW Coefficient of Variation 14.0 % (11.5-14.5) Immature Granulocyte % (Auto) 0.3 % Immature Granulocyte # (Auto) 0.02 K/uL (0.00-0.02) Anion Gap 9.0 mmol/L (3-11) Est Creatinine Clear Calc Drug Dose 76.5 ml/min Estimated GFR () 91.9 Estimated GFR (Non- 79.3 BUN/Creatinine Ratio 21.6 (10-20) Calcium Level 8.1 mg/dl (8.5-10.1) Total Bilirubin 0.2 mg/dl (0.2-1) Aspartate Amino Transf (AST/SGOT) 30 U/L (15-37) Alanine Aminotransferase (ALT/SGPT) 41 U/L (12-78) Alkaline Phosphatase 78 U/L (45-117) Total Protein 7.0 gm/dl (6.4-8.2) Albumin 3.1 gm/dl (3.4-5.0) Globulin 3.9 gm/dl (2.5-4.0) Albumin/Globulin Ratio 0.8 (0.9-2) Chemistry Specimen Hemolysis Bedside Lactic Acid Venous 2.07 mmol/L (0.90-1.70) Influenza Type A Antigen Neg for Influ A (NEG) Influenza Type B Antigen Neg for Influ B (NEG) Urine Color YELLOW Urine Appearance TURBID (CLEAR) Urine pH 7.5 (4.5-7.5) Urine Specific [place] 1.021 (1.000-1.030) Urine Protein NEG (NEG) Urine Glucose (UA) NEG (NEG) Urine Ketones NEG (NEG) Urine Occult Blood NEG (NEG) Urine Nitrite NEG (NEG) Urine Bilirubin NEG (NEG) Urine Urobilinogen NEG (NEG) Urine Leukocyte Esterase NEG (NEG) Urine WBC (Auto) 1-5 /hpf (0-5) Urine RBC (Auto) 5-10 /hpf (0-4) Urine Hyaline Casts (Auto) 1-5 /lpf (0-5) Urine Epithelial Cells (Auto) 10-20 /lpf (0-5) Urine Bacteria (Auto) NEG (NEG) Medications Administered Medications (Trade) Dose Ordered Sig/John Route Start Time Stop Time Status Last Admin Dose Admin Albuterol/ Ipratropium (Duoneb) 3 ml NOW STAT INH 06/11/17 01:22 06/11/17 01:26 DC 06/11/17 01:40 3 ML Sodium Chloride 1,000 ml @ 999 mls/hr Q1H1M STAT IV 06/11/17 02:13 06/11/17 03:13 DC 06/11/17 02:24 999 MLS/HR Acetaminophen (Tylenol Tab) 1,000 mg NOW STAT PO 06/11/17 02:26 06/11/17 02:27 DC 06/11/17 03:03 1,000 MG Azithromycin 500 mg/Dextrose 255 ml @ 125 mls/hr ONE ONCE IV 06/11/17 03:00 06/11/17 05:02 DC 06/11/17 03:30 125 MLS/HR Vancomycin HCl 2000 mg/Sodium Chloride 540 ml @ 200 mls/hr ONE STAT IV 06/11/17 02:46 06/11/17 05:27 DC 06/11/17 04:03 200 MLS/HR Cefepime HCl 2000 mg/Syringe 20 ml @ 5 mls/min TODAY@0246 IV 06/11/17 02:46 06/11/17 03:11 DC 06/11/17 03:19 5 MLS/MIN Lorazepam (Ativan Inj) 0.5 mg NOW STAT IV 06/11/17 03:54 06/11/17 03:55 DC 06/11/17 04:03 0.5 MG Sodium Chloride 1,000 ml @ 100 mls/hr Q10H IV 06/11/17 04:16 07/11/17 04:15 06/11/17 06:36 100 MLS/HR Medical Decision Differential diagnosis includes pneumonia, acute bronchitis, COPD exacerbation, CHF, among others. The patient is a 71-year-old male who presents today complaining of cough and fever. He is febrile on presentation. Labs revealed elevated point of care lactic acid. No leukocytosis or other concerning laboratory findings. Blood cultures are pending. My interpretation of chest x-ray shows patchy infiltrates bilateral bases. The patient has history concerning for aspiration pneumonia as well as MRSA. He has had 2 recent hospitalizations. Broad- spectrum antibiotics were ordered. Patient was treated with DuoNeb treatment with some relief. He did receive Ativan for anxiety while in the emergency department. Patient will be admitted for further workup and treatment of his pneumonia. The patient's case was reviewed with Dr. Gaston, ED attending physician, who agreed with my assessment and treatment plan. Medication Reconcilliation Current Medication List: was personally reviewed by me Blood Pressure Screening Patient's blood pressure: Normal blood pressure Impression Primary Impression: Pneumonia Departure Information Referrals Sanjiv Hart III, M.D. (PCP) Patient Instructions My [facility] Health Problem Qualifiers Primary Impression: Pneumonia
[2017-06-11] MEDS ORDERED: VANCOMYCIN CONSULT ACTIVE PRN (05:45)
[2017-06-11] MEDS ORDERED: PIPERACILL/TAZOBAC IV 3.375 GM in DEXTROSE 5% 100ML IV ONE (06:00)
[2017-06-11] MEDS ORDERED: PIPERACILL/TAZOBAC CONSULT ACTIVE PRN (06:00)
--- NOTE | 2017-06-11 06:06 | History and Physical ---
History & Physical Date & Time of Service: Jun 11, 2017 at 05:36 Chief Complaint: Fever, Wheezing, Chills Primary Care Physician: Sanjiv Hart III, M.D. 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 Most of the history is obtained by the who is at bedside because the patient is hard of hearing. tells me that on Wednesday, June 09 - patient noted to have some reflux symptoms and stated that he started coughing afterwards. He uses 8 cans of boost through the PEG tube. Does not use anything through the mouth. As per the , he became very weak after this aspiration episode happened - he developed fevers/chills (unrecorded temps) and became weak. He was anxious about coming to the hospital, so it was delayed until the morning of 06/11. Presented to the ER; received antibiotics, ibuprofen and fluids. Past Medical/Surgical History Medical Problems: (1) Asthma Status: Chronic (2) Benign prostatic hyperplasia Status: Chronic (3) Bronchitis Status: Resolved (4) Chronic back pain Status: Chronic (5) Chronic obstructive lung disease Status: Chronic (6) Dyslipidemia Status: Chronic (7) Gastroesophageal reflux disease Status: Chronic (8) Gastroparesis Status: Chronic (9) Orthostatic hypotension Status: Chronic (10) Tonsil carcinoma Status: Chronic Surgical Problems: (1) H/O esophagogastroduodenoscopy Status: Resolved (2) S/P arthroscopic knee surgery Status: Resolved (3) S/P colonoscopy Status: Resolved (4) s/p modified radical neck dissection Permanent Comment: 2007 [facility] [place] tonsillar Ca Status: Resolved Family History Cancer Diabetes mellitus Heart disease Hypertension Lung disease Social History Smoking Status: Never Smoker Drug Use: none Housing status: lives with significant other Occupational Status: disabled Immunizations History of Influenza Vaccine: Yes Influenza Vaccine Date: May 13, 2013 History of Tetanus Vaccine?: Unknown History of Pneumococcal: Yes Pneumococcal Date: Apr 19, 2008 History of Hepatitis B Vaccine: No Multi-Drug Resistant Organisms History of MDRO: Yes Type of MDRO: MRSA Allergies Coded Allergies: Levofloxacin (Unverified Allergy, Unknown, rash all over body, 06/11/17) Nitrates, Organic (Verified Allergy, Unknown, DROP IN BP, 06/11/17) Sertraline (Unverified Allergy, Unknown, NOSE BLEEDS, 06/11/17) Terazosin (Verified Allergy, Unknown, 06/11/17) Sulfamethoxazole w/Trimethoprim (Unverified Adverse Reaction, Severe, ITCHING, 06/11/17) Home Medications Scheduled Citalopram Hydrobromide (Citalopram Hydrobromide), 10 MG PO DAILY Enteral Nutrition Formula (Boost Plus), 2 CAN PEG QID Fludrocortisone Acetate (Florinef), 0.1 MG PEG DAILY Levothyroxine Sodium (Synthroid), 100 MCG PEG QAM Umeclidinium-Vilanterol (Anoro Ellipta 62.5-25 Mcg/INH), 1 PUFF INH DAILY Scheduled PRN Albuterol Hfa (Ventolin Hfa), 2 PUFF INH Q4 PRN for wheezing Fluticasone Propionate (Inhala (Flovent Diskus), 1 PUFFS INH BID PRN for SOB/ Wheezing Ipratropium-Albuterol (Duoneb), 1 TREATMENT INH Q4H PRN for SOB/Wheezing Lorazepam (Ativan), 0.5 MG PEG DAILY PRN for Anxiety Review of Systems Constitutional: + fever, + chills, + weakness, + fatigue, No sweats, No weight loss ENT: + unusual epistaxis (recurrent epistaxis) Respiratory: + cough, + sputum, + shortness of breath, No wheezing, No dyspnea on exertion, No dyspnea at rest, No hemoptysis Cardiovascular: No chest pain, No orthopnea, No edema, No palpitations Abdomen: No pain, No nausea, No vomiting, No diarrhea, No constipation, No GI bleeding Musculoskeletal: No joint pain, No muscle pain Genitourinary - Male: No hematuria, No dysuria, No urinary frequency, No urinary urgency Neurologic: + weakness, No numbness/tingling, No vertigo, No balance problems Psychiatric: + anxiety, No depression symptoms Endocrine: No fatigue Hematologic / Lymphatic: No abnormal bleeding/bruising Integumentary: No rash Allergic / Immunologic: No environmental allergies, No seasonal allergies Physical Exam Vital Signs Date Time Temp Pulse Resp B/P (MAP) Pulse Ox O2 Delivery O2 Flow Rate FiO2 06/11/17 05:09 104 28 100/61 94 Nasal Cannula 2.0 06/11/17 04:42 101 28 88/56 94 Nasal Cannula 2.0 06/11/17 04:31 102 30 85/53 94 Nasal Cannula 2.0 06/11/17 04:07 38.9 101 28 92/57 91 Nasal Cannula 2.0 06/11/17 03:15 103 28 124/72 94 2.0 06/11/17 02:24 39.4 100 24 144/70 93 Nasal Cannula 2.0 06/11/17 01:46 91 06/11/17 01:42 86 24 140/69 97 Nebulizer 7.0 06/11/17 01:42 93 Nasal Cannula 2.0 06/11/17 01:41 92 Room Air T-piece 06/11/17 01:01 38.1 81 18 123/80 94 Room Air General Appearance: + pertinent finding (chronically ill appearing, weak) Head: normocephalic, atraumatic Eyes: normal inspection ENT: + pertinent finding (hard of hearing) Neck: + pertinent finding (surgical changes noted) Respiratory/Chest: no respiratory distress, no accessory muscle use, + rhonchi Cardiovascular: no edema, no gallop, no JVD, no murmur, normal peripheral pulses, + tachycardia Abdomen/GI: normal bowel sounds, non tender, soft, + pertinent finding (PEG tube in place) Extremities/Musculoskelatal: normal inspection, no calf tenderness, normal capillary refill, no pedal edema, normal range of motion Neurologic/Psych: no motor/sensory deficits, alert, normal mood/affect, + pertinent finding (+lethargic) Skin: normal color Lymphatic: no adenopathy Diagnostics Laboratory Results Results Past 24 Hours Test 06/11/17 01:25 06/11/17 01:34 06/11/17 01:37 06/11/17 01:55 Range/Units White Blood Count 6.57 4.8-10.8 K/uL Red Blood Count 4.52 4.7-6.1 M/uL Hemoglobin 14.5 14.0-18.0 g/dL Hematocrit 43.5 42-52 % Mean Corpuscular Volume 96.2 80-100 fL Mean Corpuscular Hemoglobin 32.1 25-34 pg Mean Corpuscular Hemoglobin Concent 33.3 32-36 g/dl Platelet Count 138 130-400 K/uL Mean Platelet Volume 11.6 7.4-10.4 fL Neutrophils (%) (Auto) 74.5 % Lymphocytes (%) (Auto) 10.7 % Monocytes (%) (Auto) 10.7 % Eosinophils (%) (Auto) 3.5 % Basophils (%) (Auto) 0.3 % Neutrophils # (Auto) 4.90 1.4-6.5 K/uL Lymphocytes # (Auto) 0.70 1.2-3.4 K/uL Monocytes # (Auto) 0.70 0.11-0.59 K/uL Eosinophils # (Auto) 0.23 0-0.5 K/uL Basophils # (Auto) 0.02 0-0.2 K/uL RDW Standard Deviation 49.4 36.4-46.3 fL RDW Coefficient of Variation 14.0 11.5-14.5 % Immature Granulocyte % (Auto) 0.3 % Immature Granulocyte # (Auto) 0.02 0.00-0.02 K/uL Sodium Level 138 136-145 mmol/L Potassium Level 3.6 3.5-5.1 mmol/L Chloride Level 102 98-107 mmol/L Carbon Dioxide Level 27 21-32 mmol/L Anion Gap 9.0 3-11 mmol/L Blood Urea Nitrogen 21 7-18 mg/dl Creatinine 0.97 0.60-1.40 mg/dl Est Creatinine Clear Calc Drug Dose 76.5 ml/min Estimated GFR () 91.9 Estimated GFR (Non- 79.3 BUN/Creatinine Ratio 21.6 10-20 Random Glucose 122 70-99 mg/dl Calcium Level 8.1 8.5-10.1 mg/dl Total Bilirubin 0.2 0.2-1 mg/dl Aspartate Amino Transf (AST/SGOT) 30 15-37 U/L Alanine Aminotransferase (ALT/SGPT) 41 12-78 U/L Alkaline Phosphatase 78 45-117 U/L Total Protein 7.0 6.4-8.2 gm/dl Albumin 3.1 3.4-5.0 gm/dl Globulin 3.9 2.5-4.0 gm/dl Albumin/Globulin Ratio 0.8 0.9-2 Chemistry Specimen Hemolysis Bedside Lactic Acid Venous 2.07 0.90-1.70 mmol/L Influenza Type A Antigen Neg for Influ A NEG Influenza Type B Antigen Neg for Influ B NEG Urine Color YELLOW Urine Appearance TURBID CLEAR Urine pH 7.5 4.5-7.5 Urine Specific [place] 1.021 1.000-1.030 Urine Protein NEG NEG Urine Glucose (UA) NEG NEG Urine Ketones NEG NEG Urine Occult Blood NEG NEG Urine Nitrite NEG NEG Urine Bilirubin NEG NEG Urine Urobilinogen NEG NEG Urine Leukocyte Esterase NEG NEG Urine WBC (Auto) 1-5 0-5 /hpf Urine RBC (Auto) 5-10 0-4 /hpf Urine Hyaline Casts (Auto) 1-5 0-5 /lpf Urine Epithelial Cells (Auto) 10-20 0-5 /lpf Urine Bacteria (Auto) NEG NEG Test 06/11/17 05:01 Range/Units Microbiology Results 06/11/17 Blood Culture, Received Pending 06/11/17 Blood Culture, Received Pending EKG Normal sinus rhythm Left axis deviation Impression Assessment and Plan This is a 71 year old male with a 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 Y/N: Yes Risk Level: Moderate
[2017-06-11] MEDS: LEVOTHYROXINE 100 MCG TAB PEG SCH (06:35)
[2017-06-11] MEDS: SODIUM CHLORIDE 0.9% 1000ML 1,000 ML IV SCH ×2 (06:36→12:21)
--- NOTE | 2017-06-11 07:09 | DIAGNOSTIC IMAGING REPORT ---
SINGLE VIEW CHEST CLINICAL HISTORY: Cough and fever. FINDINGS: An AP, portable, upright chest radiograph is compared to study dated 05/18/2017 and correlated with chest CT dated 12/31/2016. The examination is degraded by portable technique and patient rotation. The cardiomediastinal silhouette is unremarkable. Patchy airspace opacities are present at both lung bases, right greater than left. No large pleural effusion or pneumothorax is seen. The bony thorax is grossly intact. IMPRESSION: There are patchy dependent airspace opacities. This could represent atelectasis versus an infectious/inflammatory pneumonitis. Clinical correlation will be required. Electronically signed by: Landen Hopkins M.D. 06/11/2017 7:08 AM Dictated Date/Time: 06/11/2017 7:07 AM
[2017-06-11] MEDS ORDERED: FLUTICASONE HFA 110MCG INHALER INH PRN (07:15)
[2017-06-11] MEDS ORDERED: [UNRECOGNIZED DRUG - OTHER] SCH (08:00)
[2017-06-11] MEDS: CITALOPRAM 20 MG TAB PEG SCH (08:57)
[2017-06-11] MEDS: LANSOPRAZOLE SOLUTAB 15 MG PEG SCH ×2 (08:57→21:11)
[2017-06-11] MEDS: FLUDROCORTISONE ACETATE 0.1 MG TAB PEG SCH (08:57)
[2017-06-11] MEDS: RANITIDINE HCL SYRUP 150 MG/10 ML UDC GT SCH ×2 (08:58→21:11)
[2017-06-11] MEDS: LEVALBUTEROL 1.25MG/0.5ML NEB INH SCH ×3 (09:00→19:30)
[2017-06-11] MEDS ORDERED: VANCOMYCIN INJ 1,000 MG in SODIUM CHLORIDE 0.9% 250ML 250 ML IV SCH (09:00)
[2017-06-11] MEDS ORDERED: LEVALBUTEROL/IPRATROPIUM NEB INH SCH (09:00)
[2017-06-11] MEDS: IPRATROPIUM BROMIDE NEB SOLN 0.02% 2.5 ML VIAL INH SCH ×3 (09:00→19:30)
[2017-06-11] MEDS ORDERED: CITALOPRAM 20 MG TAB PO SCH (09:00)
[2017-06-11] MEDS: BOOST PLUS VANILLA PEG SCH ×10 (09:12→21:00)
[2017-06-11] MEDS ORDERED: SODIUM CHLORIDE 0.9% 500ML 500 ML IV ONE (09:30)
[2017-06-11] MEDS: UMECLIDINIUM-VILANTEROL (ANORO) INH SCH (10:08)
--- NOTE | 2017-06-11 11:01 | Progress Note ---
Internal Med Progress Note Date of Service: Jun 11, 2017. Provider Documentation: SUBJECTIVE: Seen and examined at bedside Lethargic and sleepy Hypotensive this morning, BP improved with IVF Reports cough, dizziness SOB better Still febrile Denies chest pain, SOB, abd pain Family at bedside OBJECTIVE: Vital Signs-as noted below Physical Exam: General Appearance:Chronic ill appearing, no apparent distress Head: normocephalic, Atraumatic Eyes: normal inspection, EOMI, PERRL Neck: supple, Trachea midline Respiratory/Chest: B/L air entry, +Rhonchi Cardiovascular: S1, S2, No murmur Abdomen/GI:Soft, Non tender, Bowel sounds present, +PEG tube Extremities/Musculoskelatal:normal inspection, no edema Neurologic/Psych:AAOX3, grossly no focal neurological deficits, lethargic Skin: normal color, warm Lab data as noted below. 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 Possible Aspiration Pneumonia In the setting of PEG tube CXR: suggestive of atelectasis versus an infectious/inflammatory pneumonitis Persistent lactic acidosis Continue IV fluids, Vanco and Zosyn Blood/Sputum cultures Check CT chest Monitor lactate levels Check KUB for PEG tube Incentive spirometry Neuro checks Bronchodilators, Oxygen support Scouts consulted Anxiety/Panic Disorder continue citalopram Ativan 0.5mg PRN COPD continue current inhalers nebs PRN Hypothyroidism continue Synthroid DVT px SCDs (patient has had recurrente epistaxis - sees ENT as outpatient) Code Status: Full Code Disposition: Monitor in Tele Vital Signs: Date Time Temp Pulse Resp B/P (MAP) Pulse Ox O2 Delivery O2 Flow Rate FiO2 06/11/17 09:32 99/56 (70) 06/11/17 09:16 37.8 75 18 72/30 (44) 92 Nasal Cannula 2.0 06/11/17 07:34 39.4 99 18 95/57 (70) 95 Nasal Cannula 3.0 06/11/17 05:22 38.1 97 23 99/61 94 Nasal Cannula 2.0 06/11/17 05:09 104 28 100/61 94 Nasal Cannula 2.0 06/11/17 04:42 101 28 88/56 94 Nasal Cannula 2.0 06/11/17 04:31 102 30 85/53 94 Nasal Cannula 2.0 06/11/17 04:07 38.9 101 28 92/57 91 Nasal Cannula 2.0 06/11/17 03:15 103 28 124/72 94 2.0 06/11/17 02:24 39.4 100 24 144/70 93 Nasal Cannula 2.0 06/11/17 01:46 91 06/11/17 01:42 86 24 140/69 97 Nebulizer 7.0 06/11/17 01:42 93 Nasal Cannula 2.0 06/11/17 01:41 92 Room Air T-piece 06/11/17 01:01 38.1 81 18 123/80 94 Room Air Lab Results: Results Past 24 Hours Test 06/11/17 01:25 06/11/17 01:34 06/11/17 01:37 06/11/17 01:55 Range/Units White Blood Count 6.57 4.8-10.8 K/uL Red Blood Count 4.52 4.7-6.1 M/uL Hemoglobin 14.5 14.0-18.0 g/dL Hematocrit 43.5 42-52 % Mean Corpuscular Volume 96.2 80-100 fL Mean Corpuscular Hemoglobin 32.1 25-34 pg Mean Corpuscular Hemoglobin Concent 33.3 32-36 g/dl Platelet Count 138 130-400 K/uL Mean Platelet Volume 11.6 7.4-10.4 fL Neutrophils (%) (Auto) 74.5 % Lymphocytes (%) (Auto) 10.7 % Monocytes (%) (Auto) 10.7 % Eosinophils (%) (Auto) 3.5 % Basophils (%) (Auto) 0.3 % Neutrophils # (Auto) 4.90 1.4-6.5 K/uL Lymphocytes # (Auto) 0.70 1.2-3.4 K/uL Monocytes # (Auto) 0.70 0.11-0.59 K/uL Eosinophils # (Auto) 0.23 0-0.5 K/uL Basophils # (Auto) 0.02 0-0.2 K/uL RDW Standard Deviation 49.4 36.4-46.3 fL RDW Coefficient of Variation 14.0 11.5-14.5 % Immature Granulocyte % (Auto) 0.3 % Immature Granulocyte # (Auto) 0.02 0.00-0.02 K/uL Sodium Level 138 136-145 mmol/L Potassium Level 3.6 3.5-5.1 mmol/L Chloride Level 102 98-107 mmol/L Carbon Dioxide Level 27 21-32 mmol/L Anion Gap 9.0 3-11 mmol/L Blood Urea Nitrogen 21 7-18 mg/dl Creatinine 0.97 0.60-1.40 mg/dl Est Creatinine Clear Calc Drug Dose 76.5 ml/min Estimated GFR () 91.9 Estimated GFR (Non- 79.3 BUN/Creatinine Ratio 21.6 10-20 Random Glucose 122 70-99 mg/dl Calcium Level 8.1 8.5-10.1 mg/dl Total Bilirubin 0.2 0.2-1 mg/dl Aspartate Amino Transf (AST/SGOT) 30 15-37 U/L Alanine Aminotransferase (ALT/SGPT) 41 12-78 U/L Alkaline Phosphatase 78 45-117 U/L Total Protein 7.0 6.4-8.2 gm/dl Albumin 3.1 3.4-5.0 gm/dl Globulin 3.9 2.5-4.0 gm/dl Albumin/Globulin Ratio 0.8 0.9-2 Chemistry Specimen Hemolysis Bedside Lactic Acid Venous 2.07 0.90-1.70 mmol/L Influenza Type A Antigen Neg for Influ A NEG Influenza Type B Antigen Neg for Influ B NEG Urine Color YELLOW Urine Appearance TURBID CLEAR Urine pH 7.5 4.5-7.5 Urine Specific [place] 1.021 1.000-1.030 Urine Protein NEG NEG Urine Glucose (UA) NEG NEG Urine Ketones NEG NEG Urine Occult Blood NEG NEG Urine Nitrite NEG NEG Urine Bilirubin NEG NEG Urine Urobilinogen NEG NEG Urine Leukocyte Esterase NEG NEG Urine WBC (Auto) 1-5 0-5 /hpf Urine RBC (Auto) 5-10 0-4 /hpf Urine Hyaline Casts (Auto) 1-5 0-5 /lpf Urine Epithelial Cells (Auto) 10-20 0-5 /lpf Urine Bacteria (Auto) NEG NEG Test 06/11/17 05:01 06/11/17 08:56 Range/Units Lactic Acid Level 2.4 2.4 0.4-2.0 mmol/L Microbiology Results 06/11/17 Blood Culture, Received Pending 06/11/17 Blood Culture, Received Pending
[2017-06-11] MEDS: PIPERACILL/TAZOBAC IV 3.375 GM in DEXTROSE 5% 100ML 100 ML IV SCH ×2 (12:21→20:13)
--- NOTE | 2017-06-11 13:38 | DIAGNOSTIC IMAGING REPORT ---
KUB CLINICAL HISTORY: Cough. History of PEG tube placement. EVALUATE LOCATION OF PEG TUBE COMPARISON STUDY: 6716 FINDINGS: There is a PEG tube projected over the mid stomach. There is no pathologic bowel dilatation. There are no abnormal abdominal calcifications. IMPRESSION: 1. No evidence of pathologic bowel dilatation 2. The patient's PEG tube projects over the mid stomach. Electronically signed by: Kieran Flores M.D. 06/11/2017 1:37 PM Dictated Date/Time: 06/11/2017 1:36 PM
--- NOTE | 2017-06-11 13:42 | DIAGNOSTIC IMAGING REPORT ---
CT SCAN OF THE CHEST WITHOUT IV CONTRAST CLINICAL HISTORY: Dyspnea. Aspiration. COMPARISON STUDY: Chest x-ray dated 06/11/2017. Chest CT scans dated 12/31/2016 and 09/15/12. TECHNIQUE: CT scan of the thorax was performed from the thoracic inlet to the upper abdomen. Images are reviewed in the axial, sagittal, and coronal planes. IV contrast was not administered for this examination as per the referring clinician. A dose lowering technique was utilized adhering to the principles of ALARA. The examination is degraded by motion artifact. CT DOSE: 458.76 mGy.cm FINDINGS: Thyroid: Atrophic. Thoracic aorta: The thoracic aorta is normal in caliber and demonstrates standard 3-vessel arch anatomy. Heart: The heart is top normal in size and without pericardial effusion. There are coronary artery calcifications. Lungs and pleural spaces: Evaluation of the lung parenchyma is degraded by risk for motion artifact. Biapical scarring is observed. There is dense left basilar consolidation. Patchy airspace consolidation is also seen in the right upper, right middle, and right lower lobes. The appearance is typical for pneumonia. The trachea and central airways are clear. A trace left pleural effusion is identified. Calcified granulomas are present at the right lung base. Mediastinum: There are mildly enlarged mediastinal lymph nodes. A pretracheal node on image #107 measures up to 1.2 cm in short axis. Elayne: Not well assessed without IV contrast. Axillae: There is no axillary lymphadenopathy. Upper abdomen: A gastrostomy tube is present in the stomach. A 1.5 cm low-attenuation/cystic lesion in the spleen is of doubtful significance and unchanged from 2013. A tiny hiatal hernia is identified. Skeletal structures: The skeletal structures are osteopenic. Degenerative change is seen in the thoracic spine and shoulders. No lytic or blastic bony lesions are seen. IMPRESSION: 1. Motion compromised examination. 2. There is dense left basilar airspace consolidation as well as patchy airspace consolidation throughout the right lung. The appearance is typical for multifocal pneumonia. Clinical correlation will be required and radiographic follow-up to resolution is recommended. 3. There is a trace left pleural effusion. 4. Mildly enlarged mediastinal lymph nodes are likely on a reactive basis. 5. Additional findings as above. Electronically signed by: Landen Hopkins M.D. 06/11/2017 1:41 PM Dictated Date/Time: 06/11/2017 1:34 PM
[2017-06-11] MEDS: VANCOMYCIN INJ 1,250 MG in SODIUM CHLORIDE 0.9% 250ML 250 ML IV SCH (16:14)
[2017-06-11] MEDS ORDERED: COUGH DROP (SUGAR FREE) LOZ 24 LOZ/1 BOX PO PRN (18:15)
[2017-06-11] MEDS ORDERED: NURSING VERBAL MED ORDER ONE (18:15)
[2017-06-11] MEDS ORDERED: MAGNESIUM HYDROXIDE SUSP 30 ML UDC PEG PRN (18:30)
[2017-06-11] MEDS: ACETAMINOPHEN 325 MG TAB PO PRN (19:48)
--- NOTE | 2017-06-11 22:29 | Pharmacy Progress Note ---
Pharmacy Abx Dose Short Note Date of Service Jun 11, 2017. 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 MRSA nasal swab pending. * Goal vancomycin trough 15-20 mcg/mL * SCr at/near baseline - OK to schedule vancomycin * Vancomycin 22 mg/kg IV loading dose administered. Ordered to continue as 13.8 mg/kg IV q12 * Trough ordered prior to 5th overall dose Plan Vancomycin * 1250 mg IV q12h * Trough 06/13 @ 0330 Pharmacy will continue to follow and will adjust dose/frequency as necessary. Thank you.
[2017-06-12] VITALS (13 sets, daily range): BP systolic 103–150; BP diastolic 57–79; PULSE 62–73; TEMP 36.7–37.5; O2SAT 92–100
[2017-06-12] MEDS: LEVALBUTEROL 1.25MG/0.5ML NEB INH SCH ×4 (02:00→19:16)
[2017-06-12] MEDS: IPRATROPIUM BROMIDE NEB SOLN 0.02% 2.5 ML VIAL INH SCH ×4 (02:00→19:16)
[2017-06-12] MEDS: SODIUM CHLORIDE 0.9% 1000ML 1,000 ML IV SCH ×3 (04:01→22:42)
[2017-06-12] MEDS: PIPERACILL/TAZOBAC IV 3.375 GM in DEXTROSE 5% 100ML 100 ML IV SCH ×3 (04:01→19:40)
[2017-06-12] MEDS: VANCOMYCIN INJ 1,250 MG in SODIUM CHLORIDE 0.9% 250ML 250 ML IV SCH ×2 (04:01→16:59)
[2017-06-12] MEDS: BOOST PLUS VANILLA PEG SCH ×12 (04:32→20:28)
[2017-06-12] MEDS: LEVOTHYROXINE 100 MCG TAB PEG SCH (05:52)
[2017-06-12 06:40] LABS: HEMATOCRIT 36.6 % (42-52); MEAN CELL VOLUME 96.6 fL (80-100); MEAN CORPUSCULAR HEMOGLOBIN 31.1 pg (25-34); MEAN CORPUSCULAR HGB CONC 32.2 g/dl (32-36); MEAN PLATELET VOLUME 11.4 fL (7.4-10.4); PLATELET COUNT 105 K/uL (130-400); RED BLOOD COUNT 3.79 M/uL (4.7-6.1); WHITE BLOOD COUNT 11.79 K/uL (4.8-10.8)
[2017-06-12 07:07] LABS: BUN/CREATININE RATIO 19.7 (10-20); C-REACTIVE PROTEIN 13.4 mg/dl (0-0.29); CALCIUM 7.7 mg/dl (8.5-10.1); CREATININE 0.88 mg/dl (0.60-1.40); MAGNESIUM 2.3 mg/dl (1.8-2.4); POTASSIUM 3.4 mmol/L (3.5-5.1)
[2017-06-12 07:12] LABS: PREALBUMIN 14.6 mg/dl (20-40)
[2017-06-12 07:14] LABS: BASO % 0.2 %; BASO ABS # 0.02 K/uL (0-0.2); COMPLETE YES; EOS % 0.5 %; IG% 0.3 %; LYMPH % 7.7 %; LYMPH ABS # 0.91 K/uL (1.2-3.4); NEUT % 86.3 %
[2017-06-12] MEDS: RANITIDINE HCL SYRUP 150 MG/10 ML UDC GT SCH ×2 (08:42→20:29)
[2017-06-12] MEDS: UMECLIDINIUM-VILANTEROL (ANORO) INH SCH (08:43)
[2017-06-12] MEDS: LANSOPRAZOLE SOLUTAB 15 MG PEG SCH ×2 (08:44→20:29)
[2017-06-12] MEDS: FLUDROCORTISONE ACETATE 0.1 MG TAB PEG SCH (08:45)
[2017-06-12] MEDS: CITALOPRAM 20 MG TAB PEG SCH (09:00)
--- NOTE | 2017-06-12 10:02 | DIAGNOSTIC IMAGING REPORT ---
CHEST 2 VIEWS ROUTINE CLINICAL HISTORY: Follow-up possible pneumonia. Fever. Chills. COMPARISON STUDY: Chest radiograph and chest CT June 11, 2017. FINDINGS: There is no pneumothorax or pleural effusion. Left basilar opacity persists. Mild right lung airspace opacities are noted. There is no evidence of pulmonary edema. Cardiomediastinal silhouette is normal. IMPRESSION: Persistent left basilar consolidation suggestive of pneumonia. Mild right lung airspace opacities favor an infectious process when correlating with prior CT. Electronically signed by: Mike Sosa M.D. 06/12/2017 10:01 AM Dictated Date/Time: 06/12/2017 9:59 AM
--- NOTE | 2017-06-12 12:09 | Progress Note ---
Internal Med Progress Note Date of Service: Jun 12, 2017. Provider Documentation: SUBJECTIVE: Seen and examined at bedside More alert, awake today Less cough reports SOB on exertion afebrile BP stable Reports 3 Loose BMs Denies chest pain, SOB at rest, abd pain Family at bedside OBJECTIVE: Vital Signs-as noted below Physical Exam: General Appearance:Chronic ill appearing, no apparent distress Head: normocephalic, Atraumatic Eyes: normal inspection, EOMI, PERRL Neck: supple, Trachea midline Respiratory/Chest: B/L air entry, +Rhonchi Cardiovascular: S1, S2, No murmur Abdomen/GI:Soft, Non tender, Bowel sounds present, +PEG tube Extremities/Musculoskelatal:normal inspection, no edema Neurologic/Psych:AAOX3, grossly no focal neurological deficits, lethargic Skin: normal color, warm Lab data as noted below. 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 Multifocal Pneumonia: Likely secondary to aspiration In the setting of chronic PEG tube CXR: suggestive of atelectasis versus an infectious/inflammatory pneumonitis CT chest as below lactic acidosis trending down Continue IV fluids, Vanco and Zosyn Blood cultures: No growth to date Incentive spirometry/ Flutter valve continue bronchodilators, Oxygen support PRN Gas Usage Meter Clerk consulted Diarrhea: Check stool for C.diff Anxiety/Panic Disorder continue citalopram Ativan 0.5mg PRN COPD continue current inhalers nebs PRN Hypothyroidism continue Synthroid DVT px SCDs (patient has had recurrente epistaxis - sees ENT as outpatient) Code Status: Full Code Disposition: Monitor in Tele PROCEDURES: CT chest: 1. Motion compromised examination. 2. There is dense left basilar airspace consolidation as well as patchy airspace consolidation throughout the right lung. The appearance is typical for multifocal pneumonia. Clinical correlation will be required and radiographic follow-up to resolution is recommended. 3. There is a trace left pleural effusion. 4. Mildly enlarged mediastinal lymph nodes are likely on a reactive basis. 5. Additional findings as above. Vital Signs: Date Time Temp Pulse Resp B/P (MAP) Pulse Ox O2 Delivery O2 Flow Rate FiO2 06/12/17 11:32 37.0 65 24 111/60 (77) 98 Room Air 06/12/17 08:00 93 Room Air 06/12/17 07:15 69 18 93 Room Air 06/12/17 07:12 36.7 69 20 144/77 (99) 96 Room Air 06/12/17 04:00 Room Air 06/12/17 03:34 37.0 62 18 103/57 (72) 95 Room Air 06/12/17 02:00 66 16 92 Room Air 06/11/17 23:59 Room Air 06/11/17 23:13 37.0 66 20 96/46 (63) 95 Room Air 06/11/17 21:08 37.6 06/11/17 20:00 Room Air 06/11/17 19:30 77 16 95 Room Air 06/11/17 19:30 38.4 74 16 107/61 (76) 93 Room Air 06/11/17 16:00 92 Room Air 06/11/17 15:20 37.6 80 18 109/61 (77) 92 Room Air 06/11/17 14:21 84 14 94 Nasal Cannula 2.0 Lab Results: Results Past 24 Hours Test 06/11/17 16:21 06/11/17 22:04 06/12/17 05:55 Range/Units Lactic Acid Level 2.2 2.1 0.4-2.0 mmol/L Procalcitonin 0.54 0-0.5 ng/ml White Blood Count 11.79 4.8-10.8 K/uL Red Blood Count 3.79 4.7-6.1 M/uL Hemoglobin 11.8 14.0-18.0 g/dL Hematocrit 36.6 42-52 % Mean Corpuscular Volume 96.6 80-100 fL Mean Corpuscular Hemoglobin 31.1 25-34 pg Mean Corpuscular Hemoglobin Concent 32.2 32-36 g/dl Platelet Count 105 130-400 K/uL Mean Platelet Volume 11.4 7.4-10.4 fL Neutrophils (%) (Auto) 86.3 % Lymphocytes (%) (Auto) 7.7 % Monocytes (%) (Auto) 5.0 % Eosinophils (%) (Auto) 0.5 % Basophils (%) (Auto) 0.2 % Neutrophils # (Auto) 10.17 1.4-6.5 K/uL Lymphocytes # (Auto) 0.91 1.2-3.4 K/uL Monocytes # (Auto) 0.59 0.11-0.59 K/uL Eosinophils # (Auto) 0.06 0-0.5 K/uL Basophils # (Auto) 0.02 0-0.2 K/uL RDW Standard Deviation 51.8 36.4-46.3 fL RDW Coefficient of Variation 14.6 11.5-14.5 % Immature Granulocyte % (Auto) 0.3 % Immature Granulocyte # (Auto) 0.04 0.00-0.02 K/uL Sodium Level 141 136-145 mmol/L Potassium Level 3.4 3.5-5.1 mmol/L Chloride Level 109 98-107 mmol/L Carbon Dioxide Level 25 21-32 mmol/L Anion Gap 6.0 3-11 mmol/L Blood Urea Nitrogen 17 7-18 mg/dl Creatinine 0.88 0.60-1.40 mg/dl Est Creatinine Clear Calc Drug Dose 92.4 ml/min Estimated GFR () 101.6 Estimated GFR (Non- 87.6 BUN/Creatinine Ratio 19.7 10-20 Random Glucose 116 70-99 mg/dl Calcium Level 7.7 8.5-10.1 mg/dl Magnesium Level 2.3 1.8-2.4 mg/dl C-Reactive Protein 13.40 0-0.29 mg/dl Prealbumin 14.6 20-40 mg/dl
[2017-06-12] MEDS ORDERED: POTASSIUM CHLORIDE 20 MEQ/15 ML UDC PEG ONE (12:30)
[2017-06-12] MEDS ORDERED: GUAIFENESIN SUGAR FREE 100 MG/5 ML UDC GT PRN (22:30)
[2017-06-12] MEDS: ACETAMINOPHEN 325 MG TAB PO PRN (23:02)
[2017-06-13] VITALS (13 sets, daily range): BP systolic 120–165; BP diastolic 66–84; PULSE 60–73; TEMP 37–37.3; O2SAT 95–99
[2017-06-13] MEDS: LEVALBUTEROL 1.25MG/0.5ML NEB INH SCH ×4 (02:00→19:10)
[2017-06-13] MEDS: IPRATROPIUM BROMIDE NEB SOLN 0.02% 2.5 ML VIAL INH SCH ×4 (02:00→19:10)
[2017-06-13] MEDS ORDERED: VANCOMYCIN TROUGH ONE (03:30)
[2017-06-13] MEDS: PIPERACILL/TAZOBAC IV 3.375 GM in DEXTROSE 5% 100ML 100 ML IV SCH ×3 (03:40→19:58)
[2017-06-13 03:42] LABS: BASO % 0.2 %; BASO ABS # 0.02 K/uL (0-0.2); COMPLETE YES; EOS % 3.1 %; HEMATOCRIT 36.6 % (42-52); IG% 0.1 %; LYMPH % 11.2 %; MEAN CELL VOLUME 95.1 fL (80-100); MEAN CORPUSCULAR HEMOGLOBIN 31.2 pg (25-34); MEAN CORPUSCULAR HGB CONC 32.8 g/dl (32-36); MEAN PLATELET VOLUME 10.9 fL (7.4-10.4); MONO % 5.7 %; NEUT % 79.7 %; PLATELET COUNT 109 K/uL (130-400); RED BLOOD COUNT 3.85 M/uL (4.7-6.1); WHITE BLOOD COUNT 8.94 K/uL (4.8-10.8)
[2017-06-13 04:03] LABS: BUN/CREATININE RATIO 14.2 (10-20); CALCIUM 7.9 mg/dl (8.5-10.1); CREATININE 0.71 mg/dl (0.60-1.40)
[2017-06-13] MEDS: VANCOMYCIN INJ 1,250 MG in SODIUM CHLORIDE 0.9% 250ML 250 ML IV SCH (04:46)
[2017-06-13] MEDS ORDERED: POTASSIUM CHLORIDE 20 MEQ/15 ML UDC PEG STA (05:17)
[2017-06-13] MEDS ORDERED: POTASSIUM CHLR 10 MEQ / WTR 10 MEQ in PREMIXED WATER 100 ML IV STA (05:17)
[2017-06-13] MEDS: LEVOTHYROXINE 100 MCG TAB PEG SCH (05:40)
[2017-06-13] MEDS: BOOST PLUS VANILLA PEG SCH ×10 (07:50→20:04)
[2017-06-13] MEDS: RANITIDINE HCL SYRUP 150 MG/10 ML UDC GT SCH ×2 (07:51→20:03)
[2017-06-13] MEDS: UMECLIDINIUM-VILANTEROL (ANORO) INH SCH (07:51)
[2017-06-13] MEDS: LANSOPRAZOLE SOLUTAB 15 MG PEG SCH ×2 (07:52→20:03)
[2017-06-13] MEDS: FLUDROCORTISONE ACETATE 0.1 MG TAB PEG SCH (07:52)
[2017-06-13] MEDS: CITALOPRAM 20 MG TAB PEG SCH (08:04)
[2017-06-13] MEDS ORDERED: POTASSIUM CHLORIDE 20 MEQ/15 ML UDC PEG ONE ×2 (09:30→16:00)
--- NOTE | 2017-06-13 09:30 | Progress Note ---
Internal Med Progress Note Date of Service: Jun 13, 2017. Provider Documentation: SUBJECTIVE: Seen and examined at bedside cough improved Reports intermittent SOB Fever, diarrhea, lethargy resolved Denies chest pain, SOB at rest, abd pain Family at bedside OBJECTIVE: Vital Signs-as noted below Physical Exam: General Appearance:Chronic ill appearing, no apparent distress Head: normocephalic, Atraumatic Eyes: normal inspection, EOMI, PERRL Neck: supple, Trachea midline Respiratory/Chest: B/L air entry, Basal creps Cardiovascular: S1, S2, No murmur Abdomen/GI:Soft, Non tender, Bowel sounds present, +PEG tube Extremities/Musculoskelatal:normal inspection, no edema Neurologic/Psych:AAOX3, grossly no focal neurological deficits Skin: normal color, warm Lab data as noted below. 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 Multifocal Pneumonia: Likely secondary to aspiration In the setting of chronic PEG tube CXR: suggestive of atelectasis versus an infectious/inflammatory pneumonitis CT chest as below lactic acidosis resolved DC IV fluids Continue Vanco and Zosyn Blood cultures: No growth to date Sputum culture: pending Incentive spirometry/ Flutter valve continue bronchodilators, Oxygen support PRN Audit Machine Operator consulted continue current management Diarrhea: Resolved Check stool for C.diff if reoccurs Hypokalemia: Replace and monitor Anxiety/Panic Disorder continue citalopram Ativan 0.5mg PRN COPD continue current inhalers nebs PRN Hypothyroidism continue Synthroid DVT px SCDs (patient has had recurrente epistaxis - sees ENT as outpatient) Code Status: Full Code Disposition: Monitor in Tele PROCEDURES: CT chest: 1. Motion compromised examination. 2. There is dense left basilar airspace consolidation as well as patchy airspace consolidation throughout the right lung. The appearance is typical for multifocal pneumonia. Clinical correlation will be required and radiographic follow-up to resolution is recommended. 3. There is a trace left pleural effusion. 4. Mildly enlarged mediastinal lymph nodes are likely on a reactive basis. 5. Additional findings as above. Vital Signs: Date Time Temp Pulse Resp B/P (MAP) Pulse Ox O2 Delivery O2 Flow Rate FiO2 06/13/17 08:14 37.1 64 18 143/ (47) 97 Room Air 06/13/17 07:17 66 16 97 Room Air 06/13/17 04:00 Room Air 06/13/17 03:18 37.0 68 22 131/72 (91) 96 Room Air 06/13/17 02:02 70 16 96 Room Air 06/12/17 23:59 Room Air 06/12/17 22:59 37.5 65 18 150/79 (102) 98 Room Air 06/12/17 20:02 Room Air 06/12/17 19:17 70 18 97 Room Air 06/12/17 19:14 37.2 69 18 134/78 (96) 100 Nebulizer 06/12/17 16:00 95 Room Air 06/12/17 15:10 36.7 73 18 123/70 (87) 96 Room Air 06/12/17 14:09 69 18 93 Room Air 06/12/17 12:00 94 Room Air 06/12/17 11:32 37.0 65 24 111/60 (77) 98 Room Air Lab Results: Results Past 24 Hours Test 06/13/17 03:28 Range/Units White Blood Count 8.94 4.8-10.8 K/uL Red Blood Count 3.85 4.7-6.1 M/uL Hemoglobin 12.0 14.0-18.0 g/dL Hematocrit 36.6 42-52 % Mean Corpuscular Volume 95.1 80-100 fL Mean Corpuscular Hemoglobin 31.2 25-34 pg Mean Corpuscular Hemoglobin Concent 32.8 32-36 g/dl Platelet Count 109 130-400 K/uL Mean Platelet Volume 10.9 7.4-10.4 fL Neutrophils (%) (Auto) 79.7 % Lymphocytes (%) (Auto) 11.2 % Monocytes (%) (Auto) 5.7 % Eosinophils (%) (Auto) 3.1 % Basophils (%) (Auto) 0.2 % Neutrophils # (Auto) 7.12 1.4-6.5 K/uL Lymphocytes # (Auto) 1.00 1.2-3.4 K/uL Monocytes # (Auto) 0.51 0.11-0.59 K/uL Eosinophils # (Auto) 0.28 0-0.5 K/uL Basophils # (Auto) 0.02 0-0.2 K/uL RDW Standard Deviation 49.3 36.4-46.3 fL RDW Coefficient of Variation 14.4 11.5-14.5 % Immature Granulocyte % (Auto) 0.1 % Immature Granulocyte # (Auto) 0.01 0.00-0.02 K/uL Sodium Level 140 136-145 mmol/L Potassium Level 3.0 3.5-5.1 mmol/L Chloride Level 108 98-107 mmol/L Carbon Dioxide Level 27 21-32 mmol/L Anion Gap 5.0 3-11 mmol/L Blood Urea Nitrogen 10 7-18 mg/dl Creatinine 0.71 0.60-1.40 mg/dl Est Creatinine Clear Calc Drug Dose 114.5 ml/min Estimated GFR () 111.0 Estimated GFR (Non- 95.7 BUN/Creatinine Ratio 14.2 10-20 Random Glucose 82 70-99 mg/dl Lactic Acid Level 1.0 0.4-2.0 mmol/L Calcium Level 7.9 8.5-10.1 mg/dl Procalcitonin 0.43 0-0.5 ng/ml Vancomycin Level Trough 14.6 SEE COMMENT mcg/ml Microbiology Results 06/12/17 Gram Stain - Final, Resulted 06/12/17 Sputum Culture - Preliminary, Resulted PIN-POINT GROWTH PRESENT, REINCUBATING.
--- NOTE | 2017-06-13 10:53 | Pharmacy Progress Note ---
Pharmacy Antibiotic Prog Note Date of Service Jun 13, 2017. Subjective The patient is currently receiving vancomycin 1250 mg IV every 12 hours. The patient is currently on day # 3 of vancomycin IV therapy. Objective Height (Feet): 5 Height (Inches): 11.00 Weight (Kilograms): 94.000 Lab Results (24hrs): Test 06/13/17 03:28 White Blood Count 8.94 K/uL (4.8-10.8) Red Blood Count 3.85 M/uL (4.7-6.1) Hemoglobin 12.0 g/dL (14.0-18.0) Hematocrit 36.6 % (42-52) Mean Corpuscular Volume 95.1 fL (80-100) Mean Corpuscular Hemoglobin 31.2 pg (25-34) Mean Corpuscular Hemoglobin Concent 32.8 g/dl (32-36) Platelet Count 109 K/uL (130-400) Mean Platelet Volume 10.9 fL (7.4-10.4) Neutrophils (%) (Auto) 79.7 % Lymphocytes (%) (Auto) 11.2 % Monocytes (%) (Auto) 5.7 % Eosinophils (%) (Auto) 3.1 % Basophils (%) (Auto) 0.2 % Neutrophils # (Auto) 7.12 K/uL (1.4-6.5) Lymphocytes # (Auto) 1.00 K/uL (1.2-3.4) Monocytes # (Auto) 0.51 K/uL (0.11-0.59) Eosinophils # (Auto) 0.28 K/uL (0-0.5) Basophils # (Auto) 0.02 K/uL (0-0.2) RDW Standard Deviation 49.3 fL (36.4-46.3) RDW Coefficient of Variation 14.4 % (11.5-14.5) Immature Granulocyte % (Auto) 0.1 % Immature Granulocyte # (Auto) 0.01 K/uL (0.00-0.02) Sodium Level 140 mmol/L (136-145) Potassium Level 3.0 mmol/L (3.5-5.1) Chloride Level 108 mmol/L (98-107) Carbon Dioxide Level 27 mmol/L (21-32) Anion Gap 5.0 mmol/L (3-11) Blood Urea Nitrogen 10 mg/dl (7-18) Creatinine 0.71 mg/dl (0.60-1.40) Est Creatinine Clear Calc Drug Dose 114.5 ml/min Estimated GFR () 111.0 Estimated GFR (Non- 95.7 BUN/Creatinine Ratio 14.2 (10-20) Random Glucose 82 mg/dl (70-99) Lactic Acid Level 1.0 mmol/L (0.4-2.0) Calcium Level 7.9 mg/dl (8.5-10.1) Procalcitonin 0.43 ng/ml (0-0.5) Vancomycin Level Trough 14.6 mcg/ml (SEE COMMENT) Assessment & Plan Assessment * 71 yo M with multifocal PNA, likely aspiration. On Zosyn, vancomycin * PMH squamous cell CA of tonsil s/p radical neck dissection and PEG tube insertion. Chronic aspiration. * MRSA nasal swab positive * WBC wnl. No fever since 06/11. * Cough improving per hospitalist progress note today * C. diff stool pending - not currently on antibiotics that will cover (if positive) * Renal function stable and at baseline Vancomycin * Goal trough 15-20 mcg/mL * Trough of 14.6 mcg/mL is very slightly subtherapeutic * Would normally maintain current dose (as patient is improving), but the vancomycin dose immediately prior to this level was administered late and therefore this level is falsely elevated * Will increase dose very slightly * Next trough prior to 5th dose of new regimen * OK to wait longer as dose adjustment was small, renal function is stable, and patient is not prone to accumulation 2nd BMI Plan * Increase vancomycin 1500 mg IV q12h * Trough 06/15 @ 1530 Pharmacy will continue to follow and will adjust dose/frequency as necessary. Thank you
[2017-06-13] MEDS: VANCOMYCIN INJ 1,500 MG in SODIUM CHLORIDE 0.9% 500ML 500 ML IV SCH (17:03)
[2017-06-14] MEDS: LEVALBUTEROL 1.25MG/0.5ML NEB INH SCH ×2 (02:02→07:17)
[2017-06-14] MEDS: IPRATROPIUM BROMIDE NEB SOLN 0.02% 2.5 ML VIAL INH SCH ×2 (02:02→07:17)
[2017-06-14 02:04] VITALS: PULSE 64; O2SAT 94
[2017-06-14] MEDS: PIPERACILL/TAZOBAC IV 3.375 GM in DEXTROSE 5% 100ML 100 ML IV SCH (03:53)
[2017-06-14] MEDS: VANCOMYCIN INJ 1,500 MG in SODIUM CHLORIDE 0.9% 500ML 500 ML IV SCH (03:53)
[2017-06-14 04:01] VITALS: BP 124/62; PULSE 66; TEMP 36.6; O2SAT 94
[2017-06-14] MEDS: LEVOTHYROXINE 100 MCG TAB PEG SCH (06:17)
[2017-06-14 06:51] LABS: HEMATOCRIT 38.9 % (42-52); MEAN CELL VOLUME 94.2 fL (80-100); MEAN CORPUSCULAR HEMOGLOBIN 30.8 pg (25-34); MEAN CORPUSCULAR HGB CONC 32.6 g/dl (32-36); MEAN PLATELET VOLUME 10.9 fL (7.4-10.4); PLATELET COUNT 122 K/uL (130-400); RED BLOOD COUNT 4.13 M/uL (4.7-6.1); WHITE BLOOD COUNT 6.27 K/uL (4.8-10.8)
[2017-06-14 07:20] VITALS: PULSE 71; O2SAT 96
[2017-06-14 07:26] LABS: BUN/CREATININE RATIO 11.7 (10-20); CALCIUM 8.5 mg/dl (8.5-10.1); CREATININE 0.88 mg/dl (0.60-1.40); MAGNESIUM 2.1 mg/dl (1.8-2.4); POTASSIUM 3.4 mmol/L (3.5-5.1)
[2017-06-14] MEDS: RANITIDINE HCL SYRUP 150 MG/10 ML UDC GT SCH (07:38)
[2017-06-14] MEDS: UMECLIDINIUM-VILANTEROL (ANORO) INH SCH (07:38)
[2017-06-14] MEDS: FLUDROCORTISONE ACETATE 0.1 MG TAB PEG SCH (07:39)
[2017-06-14] MEDS: BOOST PLUS VANILLA PEG SCH ×2 (07:39)
[2017-06-14] MEDS: LANSOPRAZOLE SOLUTAB 15 MG PEG SCH (07:39)
[2017-06-14] MEDS: CITALOPRAM 20 MG TAB PEG SCH (07:39)
[2017-06-14 08:00] VITALS: BP 145/76; PULSE 62; TEMP 37; O2SAT 95; O2SAT 96
[2017-06-14] MEDS ORDERED: POTASSIUM CHLORIDE 20 MEQ/15 ML UDC PO ONE (10:30)
--- NOTE | 2017-06-14 10:35 | Progress Note ---
Internal Med Progress Note Date of Service: Jun 14, 2017. Provider Documentation: SUBJECTIVE: Seen and examined at bedside Feels much better Minimal cough Ambulated in hallway without SOB Denies chest pain, SOB, abd pain Lethargy, diarrhea resolved Family at bedside OBJECTIVE: Vital Signs-as noted below Physical Exam: General Appearance:Chronic ill appearing, no apparent distress Head: normocephalic, Atraumatic Eyes: normal inspection, EOMI, PERRL Neck: supple, Trachea midline Respiratory/Chest: B/L air entry, CTA Cardiovascular: S1, S2, No murmur Abdomen/GI:Soft, Non tender, Bowel sounds present, +PEG tube Extremities/Musculoskelatal:normal inspection, no edema Neurologic/Psych:AAOX3, grossly no focal neurological deficits Skin: normal color, warm Lab data as noted below. 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 Multifocal Pneumonia: Likely secondary to aspiration In the setting of chronic PEG tube CXR: suggestive of atelectasis versus an infectious/inflammatory pneumonitis CT chest as below lactic acidosis resolved DC IV fluids Continue Vanco and Zosyn>>. Will switch to PO abx Blood cultures: No growth to date Sputum culture:MRSA Incentive spirometry/ Flutter valve continue bronchodilators, Oxygen support PRN Public Service Officer consulted continue current management Diarrhea: Resolved Check stool for C.diff if reoccurs Hypokalemia: Replace and monitor Anxiety/Panic Disorder continue citalopram Ativan 0.5mg PRN COPD continue current inhalers nebs PRN Hypothyroidism continue Synthroid DVT px SCDs (patient has had recurrente epistaxis - sees ENT as outpatient) Code Status: Full Code Disposition: Plan to discharge home today Follow up with on 06/16/17 at 1:45pm Complete the antibiotic course as prescribed Seek immediate medical attention if your symptoms reoccur or worsen PROCEDURES: CT chest: 1. Motion compromised examination. 2. There is dense left basilar airspace consolidation as well as patchy airspace consolidation throughout the right lung. The appearance is typical for multifocal pneumonia. Clinical correlation will be required and radiographic follow-up to resolution is recommended. 3. There is a trace left pleural effusion. 4. Mildly enlarged mediastinal lymph nodes are likely on a reactive basis. 5. Additional findings as above. Vital Signs: Date Time Temp Pulse Resp B/P (MAP) Pulse Ox O2 Delivery O2 Flow Rate FiO2 06/14/17 08:00 95 Room Air 06/14/17 08:00 37.0 62 18 145/76 (99) 96 Room Air 06/14/17 07:20 71 16 96 Room Air 06/14/17 04:01 36.6 66 16 124/62 (82) 94 Room Air 06/14/17 04:00 Room Air 06/14/17 02:04 64 16 94 Room Air 06/13/17 23:59 Room Air 06/13/17 23:49 37.2 63 16 165/79 (107) 96 Room Air 06/13/17 20:00 Room Air 06/13/17 19:54 37.3 67 20 159/84 (109) 96 Room Air 06/13/17 19:10 73 16 95 Room Air 06/13/17 16:00 95 Room Air 06/13/17 15:12 37.0 60 18 135/77 (96) 95 Room Air 06/13/17 14:15 67 16 97 Room Air 06/13/17 12:13 37.0 62 16 120/66 (84) 99 Room Air 06/13/17 12:00 96 Room Air Lab Results: Results Past 24 Hours Test 06/14/17 06:28 Range/Units White Blood Count 6.27 4.8-10.8 K/uL Red Blood Count 4.13 4.7-6.1 M/uL Hemoglobin 12.7 14.0-18.0 g/dL Hematocrit 38.9 42-52 % Mean Corpuscular Volume 94.2 80-100 fL Mean Corpuscular Hemoglobin 30.8 25-34 pg Mean Corpuscular Hemoglobin Concent 32.6 32-36 g/dl RDW Standard Deviation 49.5 36.4-46.3 fL RDW Coefficient of Variation 14.4 11.5-14.5 % Platelet Count 122 130-400 K/uL Mean Platelet Volume 10.9 7.4-10.4 fL Sodium Level 140 136-145 mmol/L Potassium Level 3.4 3.5-5.1 mmol/L Chloride Level 105 98-107 mmol/L Carbon Dioxide Level 28 21-32 mmol/L Anion Gap 7.0 3-11 mmol/L Blood Urea Nitrogen 10 7-18 mg/dl Creatinine 0.88 0.60-1.40 mg/dl Est Creatinine Clear Calc Drug Dose 91.6 ml/min Estimated GFR () 101.6 Estimated GFR (Non- 87.6 BUN/Creatinine Ratio 11.7 10-20 Random Glucose 91 70-99 mg/dl Calcium Level 8.5 8.5-10.1 mg/dl Magnesium Level 2.1 1.8-2.4 mg/dl
[2017-06-14] MEDS ORDERED: DOXY100C76 PEG (10:40)
[2017-06-14] MEDS ORDERED: CEFU1TAB35 PEG (10:40)
--- NOTE | 2017-06-14 10:45 | Discharge Summary ---
Discharge Summary Date of Service Jun 14, 2017. Discharge Summary Admission Date: Jun 11, 2017 at 04:23 Discharge Date: Jun 14, 2017 Discharge Disposition: Home Principal Diagnosis: Multifocal Pneumonia: Likely secondary to aspiration Procedures: CT chest: 1. Motion compromised examination. 2. There is dense left basilar airspace consolidation as well as patchy airspace consolidation throughout the right lung. The appearance is typical for multifocal pneumonia. Clinical correlation will be required and radiographic follow-up to resolution is recommended. 3. There is a trace left pleural effusion. 4. Mildly enlarged mediastinal lymph nodes are likely on a reactive basis. 5. Additional findings as above. KUB: 1. No evidence of pathologic bowel dilatation 2. The patient's PEG tube projects over the mid stomach. Consultations: None Pending Studies/Follow-Up: Follow up with on 06/16/17 at 1:45pm Complete the antibiotic course as prescribed Seek immediate medical attention if your symptoms reoccur or worsen Medication Reconciliation New Medications: Cefuroxime Axetil (Cefuroxime Axetil) 500 Mg Tab 500 MG PEG BID for 7 Days, #14 TABS Doxycycline Monohydrate (Monodox) 100 Mg Cap 100 MG PEG BID for 7 Days, #14 CAP Continued Medications: Albuterol Hfa (Ventolin Hfa) 200 Puffs/51702 Mcg Aers 2 PUFF INH Q4 PRN for wheezing, #1 INHALER Citalopram Hydrobromide (Citalopram Hydrobromide) 20 Mg Tab 10 MG PO DAILY for 90 Days, #45 TAB 3 Refills Enteral Nutrition Formula (Boost Plus) 1 Can Liqd 2 CAN PEG QID Fludrocortisone Acetate (Florinef) 0.1 Mg Tab 0.1 MG PEG DAILY, TAB Fluticasone Propionate (Inhala (Flovent Diskus) 100 Mcg/Blist Aer 1 PUFFS INH BID PRN for SOB/Wheezing, #1 INHALER 5 Refills Ipratropium-Albuterol (Duoneb) 3 Ml Nebu 1 TREATMENT INH Q4H PRN for SOB/Wheezing, INHA Levothyroxine Sodium (Synthroid) 100 Mcg Tab 100 MCG PEG QAM Lorazepam (Ativan) 0.5 Mg Tab 0.5 MG PEG DAILY PRN for Anxiety, TAB Umeclidinium-Vilanterol (Anoro Ellipta 62.5-25 Mcg/INH) 1 Aer Aer 1 PUFF INH DAILY Admission Information HPI (per Admitting provider): This is a 71 year old male with a 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 Most of the history is obtained by the who is at bedside because the patient is hard of hearing. tells me that on Wednesday, June 09 - patient noted to have some reflux symptoms and stated that he started coughing afterwards. He uses 8 cans of boost through the PEG tube. Does not use anything through the mouth. As per the , he became very weak after this aspiration episode happened - he developed fevers/chills (unrecorded temps) and became weak. He was anxious about coming to the hospital, so it was delayed until the morning of 06/11. Presented to the ER; received antibiotics, ibuprofen and fluids. Physical Exam (per Admitting): General Appearance: + pertinent finding (chronically ill appearing, weak) Head: normocephalic, atraumatic Eyes: normal inspection ENT: + pertinent finding (hard of hearing) Neck: + pertinent finding (surgical changes noted) Respiratory/Chest: no respiratory distress, no accessory muscle use, + rhonchi Cardiovascular: no edema, no gallop, no JVD, no murmur, normal peripheral pulses, + tachycardia Abdomen/GI: normal bowel sounds, non tender, soft, + pertinent finding (PEG tube in place) Extremities/Musculoskelatal: normal inspection, no calf tenderness, normal capillary refill, no pedal edema, normal range of motion Neurologic/Psych: no motor/sensory deficits, alert, normal mood/affect, + pertinent finding (+lethargic) Skin: normal color Lymphatic: no adenopathy Hospital Course Patient is a 71 yr old male with a 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 Multifocal Pneumonia: Likely secondary to aspiration In the setting of chronic PEG tube CXR: suggestive of atelectasis versus an infectious/inflammatory pneumonitis CT chest as below lactic acidosis resolved DC IV fluids Continue Vanco and Zosyn>>. Will switch to PO abx Blood cultures: No growth to date Sputum culture:MRSA Incentive spirometry/ Flutter valve continue bronchodilators, Oxygen support PRN Microbiology Coordinator consulted continue current management Diarrhea: Resolved Check stool for C.diff if reoccurs Hypokalemia: Replace and monitor Anxiety/Panic Disorder continue citalopram Ativan 0.5mg PRN COPD continue current inhalers nebs PRN Hypothyroidism continue Synthroid DVT px SCDs (patient has had recurrente epistaxis - sees ENT as outpatient) Code Status: Full Code Disposition: Plan to discharge home today Follow up with on 06/16/17 at 1:45pm Complete the antibiotic course as prescribed Seek immediate medical attention if your symptoms reoccur or worsen PROCEDURES: CT chest: 1. Motion compromised examination. 2. There is dense left basilar airspace consolidation as well as patchy airspace consolidation throughout the right lung. The appearance is typical for multifocal pneumonia. Clinical correlation will be required and radiographic follow-up to resolution is recommended. 3. There is a trace left pleural effusion. 4. Mildly enlarged mediastinal lymph nodes are likely on a reactive basis. 5. Additional findings as above. Total time spent on discharge = 34 minutes This includes examination of the patient, discharge planning, medication reconciliation, and communication with other providers. Discharge Instructions Discharge Instructions Date of Service Jun 14, 2017. Admission Reason for Admission: Aspiration Pneumonia Discharge Discharge Diagnosis / Problem: Multifocal Pneumonia: Likely secondary to aspiration Discharge Goals Goal(s): Decrease discomfort, Improve function Activity Recommendations Activity Limitations: resume your previous activity Exercise/Sports Limitations: as tolerated . Instructions / Follow-Up Instructions / Follow-Up Follow up with on 06/16/17 at 1:45pm Complete the antibiotic course as prescribed Seek immediate medical attention if your symptoms reoccur or worsen Current Hospital Diet Patient's current hospital diet: Discharge Diet Recommended Diet: N/A (Tube feeds) Pending Studies Studies pending at discharge: no Laboratory Results Lipid Panel Test 05/19/17 07:03 Range/Units Triglycerides Level 74 0-150 mg/dl Cholesterol Level 134 0-200 mg/dl HDL Cholesterol 54 mg/dl Cholesterol/HDL Ratio 2.5 LDL Cholesterol, Calculated 65 mg/dl Medical Emergencies . Who to Call and When: Medical Emergencies: If at any time you feel your situation is an emergency, please call 911 immediately. . Non-Emergent Contact Non-Emergency issues call your: Primary Care Provider Call Non-Emergent contact if: you have a fever, your pain is not controlled, your pain is worsening, your pain is unusual for you, your pain is concerning you, you have any medication questions Seek immediate medical attention if your symptoms reoccur or worsen . . "Provider Documentation" section prepared by Bang Milian. . VTE Core Measure Inpt VTE Proph given/why not?: SCD's <Electronically signed by Bang Milian MD> Signed: 06/14/17 1045 Signed: The status of this report is Signed * If report status is Draft, the document has not been finalized by the responsible provider.
[2017-06-14 10:54] VITALS: BP 145/76; PULSE 62; TEMP 37; O2SAT 96
[2017-06-15] MEDS ORDERED: VANCOMYCIN TROUGH ONE (15:30)
--- NOTE | 2017-06-16 13:25 | EDITING REQUIRED CODING QUERY ---
CODING QUERY To promote full compliance with coding requirements relating to patient care, provider participation is requested in all cases of exercise specialist uncertainty. Please assist us with the question(s) below: Coding Question: "Multifocal Pneumonia: Likely secondary to aspiration in the setting of chronic PEG tube". Was documented in the record, please clarify below to the best of your knowledge. Thank you so much for your help! ( X) Aspiration Pneumonia, could be complication of PEG tube ( ) Aspiration Pneumonia, unspecified cause ( ) Other, explain Thank you! Linsey Vizcarra Principal Diagnosis: "_that condition established after study, to be chiefly responsible for occasioning the admission of the patient to the hospital for care." Co-Existing Principal Diagnosis: "_when two or more diagnoses equally meet the criteria for principal diagnosis as determined by the circumstances of admission, diagnostic work up, and/or therapy provided, and the Alphabetic Index, Tabular List, or another coding guideline does not provide sequencing direction, any one of the diagnoses may be sequenced first." "When the physician has documented what appears to be a current diagnosis in the body of the record, but has not included the diagnosis in the final diagnostic statement, the physician should be asked whether the diagnosis should be added." (Source Coding [facility] 2 QTR90. p3-4)
== END 2017-06-14 11:36 | disposition home or self-care (01) | DRG 393 ==
LOC: C.EDB 00:58 → C.2T 04:23 → ENRESERV 04:34
PROVIDERS: ADMIT Family Medicine; ATTEND Internal Medicine
DX: K94.29 Other complications of gastrostomy (principal); J69.0 Pneumonitis due to inhalation of food and vomit; E78.5 Hyperlipidemia, unspecified; J44.9 Chronic obstructive pulmonary disease, unspecified; K21.9 Gastro-esophageal reflux disease without esophagitis; J45.909 Unspecified asthma, uncomplicated; F41.0 Panic disorder [episodic paroxysmal anxiety]; E03.9 Hypothyroidism, unspecified; Z79.899 Other long term (current) drug therapy; Y83.3 Surgical operation with formation of external stoma as the cause of abnormal reaction of the patient, or of later complication, without mention of misadventure at the time of the procedure

== ENCOUNTER 2017-08-01 02:08 | Emergency (ER) | payer OTHER ==
[~2017-08-01] VITALS: Ht 182.9 cm; Wt 89.0 kg
[~2017-08-01 02:08] MED LIST changes: +CEFU1TAB35 PEG; +CITA20TA4 PO; -CLX20 PO; -FLUD0.1T PEG; +FLUD0.1T10 PEG
[2017-08-01 02:14] VITALS: TEMP 37.1; Ht 182.9 cm; Wt 89.0 kg
[2017-08-01 02:18] VITALS: O2SAT 95
[2017-08-01] MEDS ORDERED: ONDANSETRON INJ 2 MG/ML 2 ML VIAL IV STA (03:15)
[2017-08-01] MEDS ORDERED: SODIUM CHLORIDE 0.9% 1000ML 1,000 ML IV STA (03:15)
[2017-08-01 03:35] LABS: ALBUMIN 3.3 gm/dl (3.4-5.0); ALT/SGPT 48 U/L (12-78); AST/SGOT 29 U/L (15-37); BLOOD UREA NITROGEN 21 mg/dl (7-18); CALCIUM 8.1 mg/dl (8.5-10.1); CARBON DIOXIDE 27 mmol/L (21-32); GLUCOSE 171 mg/dl (70-99); POTASSIUM 3.3 mmol/L (3.5-5.1); SODIUM 137 mmol/L (136-145)
[2017-08-01 03:38] LABS: HEMATOCRIT 41.6 % (42-52); HEMOGLOBIN 14.3 g/dL (14.0-18.0); MEAN CORPUSCULAR HEMOGLOBIN 32.6 pg (25-34); MEAN CORPUSCULAR HGB CONC 34.4 g/dl (32-36); RED CELL DISTRIBUTION WIDTH CV 14.3 % (11.5-14.5); RED CELL DISTRIBUTION WIDTH SD 49.3 fL (36.4-46.3); WHITE BLOOD COUNT 5.02 K/uL (4.8-10.8)
[2017-08-01 03:40] LABS: ALKALINE PHOSPHATASE 72 U/L (45-117); TOTAL PROTEIN 6.8 gm/dl (6.4-8.2)
[2017-08-01 03:55] LABS: BASO % 0.6 %; BASO ABS # 0.03 K/uL (0-0.2); EOS % 2.4 %; EOS ABS # 0.12 K/uL (0-0.5); IG# 0.01 K/uL (0.00-0.02); INR 1.1 (0.9-1.1); LYMPH % 10.4 %; LYMPH ABS # 0.52 K/uL (1.2-3.4); MONO % 10.6 %; MONO ABS # 0.53 K/uL (0.11-0.59); NEUT % 75.8 %; NEUT ABS # 3.81 K/uL (1.4-6.5); PLATELET COUNT 127 K/uL (130-400)
[2017-08-01 03:59] LABS: INFLUENZA B ANTIGEN Neg for Influ B (NEG)
--- NOTE | 2017-08-01 05:34 | EMERGENCY ROOM VISIT NOTE ---
History Report prepared by Rubén: Irma Shipley Under the Supervision of: Dr. Danielle Gaston D.O. First contact with patient: 02:37 Chief Complaint: FLU LIKE SX Stated Complaint: FLU LIKE SYMPTOMS History of Present Illness The patient is a 72 year old male who presents to the Emergency Room with complaints of persistent fever starting 1400 yesterday. The patient presents to the ED by EMS. He did not feel well yesterday. He developed a fever of 100. He took Tylenol 1 hour PARAFFINER. He no longer feels like he has a fever. He reports nausea, sore throat, and rhinorrhea. He has a worsened cough which is productive. He has coughed up some brown sputum and some blood. He has coughed up blood before and thinks the blood might be coming from his nose. He is prone to nose bleeds. He had some chills earlier. He has a rash on his arm. He denies any vomiting, abdominal pain, or diarrhea. He does not have any history of heart problems. His has been sick with fever, nausea, and sore throat. He is not on aspirin or other blood thinners. Source of History: patient, spouse/significant other Onset: 1400 yesterday Position: other (global) Symptom Intensity: 100 Quality: other (fever) Timing: other (persistent) Modifying Factors (Relieving): tylenol Associated Symptoms: + chills, + sorethroat, + cough, + nausea, + rash, No vomiting, No abdominal pain, No diarrhea Note: Pt reports rhinorrhea. Review of Systems See HPI for pertinent positives & negatives. A total of 10 systems reviewed and were otherwise negative. 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 (9) Dyslipidemia (10) Febrile illness (11) Gastroesophageal reflux disease (12) Gastroparesis (13) Influenza B (14) Nausea & vomiting (15) Orthostatic hypotension (16) Orthostatic hypotension (17) Pneumonia (18) Respiratory failure, acute (19) Sepsis (20) Tonsil carcinoma Surgical Problems: (1) H/O esophagogastroduodenoscopy (2) S/P arthroscopic knee surgery (3) S/P colonoscopy (4) s/p modified radical neck dissection Family History Cancer Diabetes mellitus Heart disease Hypertension Lung disease Social History Smoking Status: Former Smoker Alcohol Use: none Drug Use: none Housing Status: lives with significant other Occupation Status: disabled Current/Historical Medications Scheduled Citalopram Hydrobromide (Citalopram Hydrobromide), 10 MG PO QAM Enteral Nutrition Formula (Boost Plus), 2 CAN PEG QID Fludrocortisone Acetate (Florinef), 0.1 MG PEG DAILY Levothyroxine Sodium (Synthroid), 100 MCG PEG QAM Umeclidinium-Vilanterol (Anoro Ellipta 62.5-25 Mcg/INH), 1 PUFF INH DAILY Scheduled PRN Albuterol Hfa (Ventolin Hfa), 2 PUFF INH Q4 PRN for wheezing Fluticasone Propionate (Inhala (Flovent Diskus), 1 PUFFS INH BID PRN for SOB/ Wheezing Ipratropium-Albuterol (Duoneb), 1 TREATMENT INH Q4H PRN for SOB/Wheezing Lorazepam (Ativan), 0.5 MG PEG DAILY PRN for Anxiety Allergies Coded Allergies: Levofloxacin (Unverified Allergy, Unknown, rash all over body, 08/01/17) Nitrates, Organic (Verified Allergy, Unknown, DROP IN BP, 08/01/17) Sertraline (Unverified Allergy, Unknown, NOSE BLEEDS, 08/01/17) Terazosin (Verified Allergy, Unknown, 08/01/17) Sulfamethoxazole w/Trimethoprim (Unverified Adverse Reaction, Severe, ITCHING, 08/01/17) Physical Exam Vital Signs Date Time Temp Pulse Resp B/P (MAP) Pulse Ox O2 Delivery O2 Flow Rate FiO2 08/01/17 06:22 67 16 106/59 96 Room Air 08/01/17 05:32 71 18 126/74 95 Room Air 08/01/17 03:58 72 18 133/72 95 Room Air 08/01/17 02:46 77 08/01/17 02:18 95 Room Air 08/01/17 02:14 37.1 74 18 142/64 95 Room Air Physical Exam GENERAL: alert, well appearing, well nourished, no distress, non-toxic EYE EXAM: normal conjunctiva, PERRL and EOM's grossly intact OROPHARYNX: thick mucous noted in the oropharynx. No mucocutaneous lesions. No exudate, no tonsillar hypertrophy. No erythema, lips, buccal mucosa, and tongue normal and mucous membranes are moist. Obvious post surgical changes to the right face and jaw. NECK: supple, no nuchal rigidity, no adenopathy, non-tender LUNGS: Decreased breath sounds bilaterally. Normal chest wall mechanics HEART: no murmurs, S1 normal and S2 normal ABDOMEN: abdomen soft, non-tender, normo-active bowel sounds, no masses, no rebound or guarding. BACK: Back is symmetrical on inspection and there is no deformity, no midline tenderness, no CVA tenderness. SKIN: no rashes and no bruising UPPER EXTREMITIES: upper extremities are grossly normal. LOWER EXTREMITIES: No pitting edema. NEURO EXAM: Normal sensorium, cranial nerves II-XII grossly intact, normal speech, no gross weakness of arms, no gross weakness of legs. Medical Decision & Procedures ER Provider Diagnostic Interpretation: X-ray: I interpreted the following studies. Chest: A two view study of the chest was reviewed and was negative for cardiomegaly, focal consolidation, overt pulmonary edema, effusion, pneumothorax, or wide mediastinum. No significant change compared to prior. Laboratory Results 08/01/17 02:20 Red Blood Count 4.38, Mean Corpuscular Volume 95.0, Mean Corpuscular Hemoglobin 32.6, Mean Corpuscular Hemoglobin Concent 34.4, Mean Platelet Volume 12.0, Neutrophils (%) (Auto) 75.8, Lymphocytes (%) (Auto) 10.4, Monocytes (%) (Auto) 10.6, Eosinophils (%) (Auto) 2.4, Basophils (%) (Auto) 0.6, Neutrophils # (Auto ) 3.81, Lymphocytes # (Auto) 0.52, Monocytes # (Auto) 0.53, Eosinophils # (Auto ) 0.12, Basophils # (Auto) 0.03 08/01/17 02:20 Test 08/01/17 02:15 08/01/17 02:20 08/01/17 03:36 Influenza Type A Antigen Neg for Influ A (NEG) Influenza Type B Antigen Neg for Influ B (NEG) White Blood Count 5.02 K/uL (4.8-10.8) Red Blood Count 4.38 M/uL (4.7-6.1) Hemoglobin 14.3 g/dL (14.0-18.0) Hematocrit 41.6 % (42-52) Mean Corpuscular Volume 95.0 fL (80-100) Mean Corpuscular Hemoglobin 32.6 pg (25-34) Mean Corpuscular Hemoglobin Concent 34.4 g/dl (32-36) Platelet Count 127 K/uL (130-400) Mean Platelet Volume 12.0 fL (7.4-10.4) Neutrophils (%) (Auto) 75.8 % Lymphocytes (%) (Auto) 10.4 % Monocytes (%) (Auto) 10.6 % Eosinophils (%) (Auto) 2.4 % Basophils (%) (Auto) 0.6 % Neutrophils # (Auto) 3.81 K/uL (1.4-6.5) Lymphocytes # (Auto) 0.52 K/uL (1.2-3.4) Monocytes # (Auto) 0.53 K/uL (0.11-0.59) Eosinophils # (Auto) 0.12 K/uL (0-0.5) Basophils # (Auto) 0.03 K/uL (0-0.2) RDW Standard Deviation 49.3 fL (36.4-46.3) RDW Coefficient of Variation 14.3 % (11.5-14.5) Immature Granulocyte % (Auto) 0.2 % Immature Granulocyte # (Auto) 0.01 K/uL (0.00-0.02) Platelet Estimate NORMAL Prothrombin Time 11.1 SECONDS (9.0-12.0) Prothromb Time International Ratio 1.1 (0.9-1.1) D-Dimer 280 ug/L FEU (0-500) Anion Gap 6.0 mmol/L (3-11) Est Creatinine Clear Calc Drug Dose 75.5 ml/min Estimated GFR () 88.0 Estimated GFR (Non- 75.9 BUN/Creatinine Ratio 20.7 (10-20) Calcium Level 8.1 mg/dl (8.5-10.1) Magnesium Level 2.1 mg/dl (1.8-2.4) Total Bilirubin 0.4 mg/dl (0.2-1) Aspartate Amino Transf (AST/SGOT) 29 U/L (15-37) Alanine Aminotransferase (ALT/SGPT) 48 U/L (12-78) Alkaline Phosphatase 72 U/L (45-117) Troponin I < 0.015 ng/ml (0-0.045) Pro-B-Type Natriuretic Peptide 140 pg/ml (0-900) Total Protein 6.8 gm/dl (6.4-8.2) Albumin 3.3 gm/dl (3.4-5.0) Globulin 3.5 gm/dl (2.5-4.0) Albumin/Globulin Ratio 0.9 (0.9-2) Bedside Lactic Acid Venous 1.68 mmol/L (0.90-1.70) Laboratory results per my review. Medications Administered Medications (Trade) Dose Ordered Sig/Jonh Route Start Time Stop Time Status Last Admin Dose Admin Sodium Chloride 1,000 ml @ 250 mls/hr Q4H STAT IV 08/01/17 03:15 08/01/17 06:29 DC 08/01/17 03:26 250 MLS/HR Ondansetron HCl (Zofran Inj) 4 mg NOW STAT IV 08/01/17 03:15 08/01/17 03:17 DC 08/01/17 03:25 4 MG ECG Indication: SOB/dyspnea Rate (beats per minute): 75 Rhythm: normal sinus Findings: no acute ischemic change, no ectopy, other (normal axis, normal intervals) ED Course 0257: The patient was evaluated in room B8. A complete history and physical exam was performed. 0315: Zofran Inj 4 mg IV, NSS 1000 ml @ 250 mls/hr IV. 0457: I reevaluated the patient. I discussed the findings and the treatment plan with the patient and his . They verbalize agreement and understanding. He was discharged home. Medical Decision Differential diagnosis: Etiologies such as infections, reactive airway disease, pneumonia, pneumothorax , COPD, CHF, cardiac ischemia, pulmonary embolism, musculoskeletal, gastrointestinal, as well as others were entertained. Patient with reassuring labs and imaging despite past medical history. Vital signs stable throughout. Patient stated he felt improved following fluids and medication here. I feel most likely patient has viral illness similar to that of his . Patient tolerating by mouth here. Given frequency of nosebleeds, and otherwise negative chest x-ray and d-dimer, I feel the blood seen in his mucus was most likely from his epistaxis. I have a lower suspicion for occult pneumonia, COPD exacerbation, bacteremia/sepsis. Doubt ACS, CHF, or vascular etiology. Patient already has a follow-up visit with his family doctor scheduled for tomorrow. I encouraged them to keep this appointment. Discussed continued use of his routine medications, symptoms to watch and return for, patient and his verbalized understanding were agreeable with plan. Medication Reconcilliation Current Medication List: was personally reviewed by me Blood Pressure Screening Patient's blood pressure: Elevated blood pressure Blood pressure disposition: Elevated BP felt to be situational Impression Primary Impression: Upper respiratory infection Additional Impressions: Dehydration Nausea Scribe Attestation The scribe's documentation has been prepared under my direction and personally reviewed by me in its entirety. I confirm that the note above accurately reflects all work, treatment, procedures, and medical decision making performed by me. Departure Information Dispostion Home / Self-Care Referrals Sanjiv Hart III, M.D. (PCP) Patient Instructions My [facility] Additional Instructions Please continue regular medications as prescribed. Please try to sip fluids at frequent intervals to stay well-hydrated. You may use Tylenol as needed for fevers. If you have any worsening symptoms or new concerns, please return the emergency room. Problem Qualifiers Primary Impression: Upper respiratory infection URI type: unspecified URI Qualified Codes: J06.9 - Acute upper respiratory infection, unspecified
[2017-08-01 06:22] VITALS: BP 106/59; PULSE 67; O2SAT 96
--- NOTE | 2017-08-01 07:19 | DIAGNOSTIC IMAGING REPORT ---
CHEST 2 VIEWS ROUTINE HISTORY: Short of breath. COMPARISON: Chest 06/12/2017. FINDINGS: Left basilar linear densities favor scarring or atelectasis. This is similar to the prior study. No new focal lung consolidations. The heart is normal in size area no pleural effusions. No pneumothorax. A gastrostomy tube is noted. IMPRESSION: 1. Left basilar linear densities favor scarring or atelectasis. This is similar to the prior study. 2. No new focal lung consolidations to suggest pneumonia. Electronically signed by: Rylan Archuleta M.D. 08/01/2017 7:17 AM Dictated Date/Time: 08/01/2017 7:16 AM
== END 2017-08-01 06:21 | disposition home or self-care (01) ==
LOC: EDBD 02:08 → C.EDB 02:09
DX: J06.9 Acute upper respiratory infection, unspecified (principal); E86.0 Dehydration; R11.0 Nausea; E27.40 Unspecified adrenocortical insufficiency; J44.9 Chronic obstructive pulmonary disease, unspecified; K31.84 Gastroparesis; Z93.1 Gastrostomy status; Z79.52 Long term (current) use of systemic steroids; Z85.89 Personal history of malignant neoplasm of other organs and systems; Z87.891 Personal history of nicotine dependence; Z80.9 Family history of malignant neoplasm, unspecified; Z83.3 Family history of diabetes mellitus; Z82.49 Family history of ischemic heart disease and other diseases of the circulatory system

== ENCOUNTER 2017-08-01 12:41 | Inpatient (IN) | payer OTHER ==
[~2017-08-01] VITALS: Ht 180.3 cm; Wt 88.0 kg
[~2017-08-01 12:41] MED LIST changes: +CITA20TA4 PEG; -CITA20TA4 PO
[2017-08-01] MEDS ORDERED: ACETAMINOPHEN 500 MG TAB PO ONE (14:24)
[2017-08-01] MEDS ORDERED: ONDANSETRON 4MG OD TAB PO STA (14:25)
[2017-08-01] MEDS ORDERED: GI COCKTAIL PO STA (14:25)
[2017-08-01] MEDS ORDERED: FAMOTIDINE 20 MG TAB PO ONE (14:30)
[2017-08-01] MEDS ORDERED: DEXAMETHASONE **PF** INJ 10 MG/ML VIAL PO ONE (14:30)
[2017-08-01] MEDS ORDERED: ALBUT/IPRATROP 3MG/0.5MG NEB 3 ML VIAL INH ONE (14:30)
[2017-08-01 14:50] VITALS: PULSE 88; O2SAT 96
[2017-08-01] MEDS ORDERED: ALUMINUM/MAGNESIUM SUSP 30 ML UDC ONE (15:11)
[2017-08-01] MEDS ORDERED: LIDOCAINE HCL 2% VISC SOLN 20 ML UDC ONE (15:11)
--- NOTE | 2017-08-01 15:33 | DIAGNOSTIC IMAGING REPORT ---
CHEST 2 VIEWS ROUTINE HISTORY: EVALUATE RESPIRATORY DISTRESS.DYSPNEA COMPARISON: Chest 08/01/2017. FINDINGS: Left basilar linear densities have slightly improved. This suggests resolving atelectasis. Mild emphysema. No new focal lung consolidations to suggest pneumonia. No evidence for pulmonary edema. No pleural effusions. No pneumothorax. The heart is normal in size. IMPRESSION: 1. Improvement in the left basilar linear densities suggesting resolving atelectasis. No new focal lung consolidations. 2. Emphysema. Electronically signed by: Rylan Archuleta M.D. 08/01/2017 3:32 PM Dictated Date/Time: 08/01/2017 3:29 PM
[2017-08-01] MEDS ORDERED: SODIUM CHLORIDE 0.9% 1000ML 1,000 ML IV STA (16:59)
[2017-08-01 17:41] VITALS: O2SAT 99; BMI 27.4
[2017-08-01] MEDS ORDERED: ONDANSETRON INJ 2 MG/ML 2 ML VIAL IV PRN (18:00)
[2017-08-01] MEDS ORDERED: LORAZEPAM 2 MG/ML 1 ML VIAL IV PRN (18:15)
[2017-08-01] MEDS ORDERED: FLUTICASONE PROPIONATE NA SPR 16 GM BTL NAE PRN (18:15)
[2017-08-01] MEDS ORDERED: ALBUT/IPRATROP 3MG/0.5MG NEB 3 ML VIAL INH PRN (18:15)
[2017-08-01 18:25] VITALS: BP 125/66; PULSE 82; TEMP 37.9; O2SAT 94
--- NOTE | 2017-08-01 18:39 | History and Physical ---
History & Physical Date & Time of Service: Aug 01, 2017 at 18:19 Chief Complaint: Sick,Cant Breath Primary Care Physician: Sanjiv Hart III, M.D. History of Present Illness Source: patient, spouse, clinic records, hospital records 72 yo M who is chronically NPO 2/2 high aspiration risk presents to the ER with fevers, chills, shortness of breath, and nausea and vomiting that has persisted overnight. Other symptoms than his vomiting have been ongoing now for the past week. He was seen in the ER overnight and was able to go home after some IVF and Zofran, however, when he got home he became worse and was too weak to stand , asking his to call the ambulance. She has recently been ill with exactly the same symptoms and reports that she had a sinus infection. Specifically, he is also reporting a productive cough, some blood present in his spitup in the setting of daily nosebleeds (not on blood thinners or daily aspirin), some headaches, and chronic joint pain that is same as baseline and related to his arthritis. He denies abdominal pain, diarrhea, blood in his stool or constipation. He was recently admitted to the hospital in May 2017 for treatment of an aspiration pneumonia, and reports to me today that he felt that he aspirated some of the excessive mucous that he has been having lately. He also reports a pruritic rash that is erythematous and slightly raised on his dorsal R hand and extensor surface of his R forearm. He has been putting moisturizer on it at home. He has a PEG tube in place and for the last 7 years has subsisted off of 8 cans of Boost Plus daily. He reports that he feels bloated after trying only one can, and his interjected that he has only been able to get 4 cans in him daily and she is concerned that he will start losing weight soon. She denies having a GI provider or ever having seen [facility] in [place]. Past Medical/Surgical History Medical Problems: (1) Asthma Status: Chronic (2) Benign prostatic hyperplasia Status: Chronic (3) Bronchitis Status: Resolved (4) Chronic back pain Status: Chronic (5) Chronic obstructive lung disease Status: Chronic (6) Dyslipidemia Status: Chronic (7) Gastroesophageal reflux disease Status: Chronic (8) Gastroparesis Status: Chronic (9) Orthostatic hypotension Status: Chronic (10) Tonsil carcinoma Status: Chronic Surgical Problems: (1) H/O esophagogastroduodenoscopy Status: Resolved (2) S/P arthroscopic knee surgery Status: Resolved (3) S/P colonoscopy Status: Resolved (4) s/p modified radical neck dissection Permanent Comment: 2007 [facility] tonsillar Ca Status: Resolved Family History Cancer Diabetes mellitus Heart disease Hypertension Lung disease Social History Smoking Status: Former Smoker Smokeless Tobacco Use: No Alcohol Use: none Drug Use: none Marital Status: Housing status: lives with significant other Occupational Status: disabled Immunizations History of Influenza Vaccine: Yes Influenza Vaccine Date: May 13, 2013 History of Tetanus Vaccine?: Unknown History of Pneumococcal: Yes Pneumococcal Date: Apr 19, 2008 History of Hepatitis B Vaccine: No Multi-Drug Resistant Organisms History of MDRO: Yes Type of MDRO: MRSA Allergies Coded Allergies: Levofloxacin (Unverified Allergy, Unknown, rash all over body, 08/01/17) Nitrates, Organic (Verified Allergy, Unknown, DROP IN BP, 08/01/17) Sertraline (Unverified Allergy, Unknown, NOSE BLEEDS, 08/01/17) Terazosin (Verified Allergy, Unknown, 08/01/17) Sulfamethoxazole w/Trimethoprim (Unverified Adverse Reaction, Severe, ITCHING, 08/01/17) Home Medications Scheduled Citalopram Hydrobromide (Citalopram Hydrobromide), 10 MG PO QAM Enteral Nutrition Formula (Boost Plus), 2 CAN PEG QID Fludrocortisone Acetate (Florinef), 0.1 MG PEG DAILY Levothyroxine Sodium (Synthroid), 100 MCG PEG QAM Umeclidinium-Vilanterol (Anoro Ellipta 62.5-25 Mcg/INH), 1 PUFF INH DAILY Scheduled PRN Albuterol Hfa (Ventolin Hfa), 2 PUFF INH Q4 PRN for wheezing Fluticasone Propionate (Inhala (Flovent Diskus), 1 PUFFS INH BID PRN for SOB/ Wheezing Ipratropium-Albuterol (Duoneb), 1 TREATMENT INH Q4H PRN for SOB/Wheezing Lorazepam (Ativan), 0.5 MG PEG DAILY PRN for Anxiety Review of Systems At least ten systems were reviewed and negative except as indicated in HPI. Physical Exam Vital Signs Date Time Temp Pulse Resp B/P (MAP) Pulse Ox O2 Delivery O2 Flow Rate FiO2 08/01/17 17:41 99 Nasal Cannula 5.0 08/01/17 16:55 38.4 97 20 104/68 110 84/54 08/01/17 15:49 105 20 133/67 99 Nebulizer 5.0 08/01/17 14:50 88 20 96 Room Air 08/01/17 14:48 96 Room Air 08/01/17 12:49 38.2 92 20 143/68 96 General Appearance: WD/WN, no apparent distress Head: normocephalic, atraumatic Eyes: normal inspection, PERRL, sclerae normal, + pertinent finding (clear sequelae of prior neck dissection surgery) ENT: hearing grossly normal, + pharyngeal erythema, + pertinent finding ( erythema, and excoriations and excessive dryness on hard and soft palate. 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 ) Diagnostics Laboratory Results From ER visit on 08/01/17: CBC: WBC 5, H/H 14/41, PLT 127, MCV 95 CMP: NA 137, K 3.3, Cl 104, HCO3 27, BUN 21, Creat 1.0, Gluc 171; hepatic panel -WNL TROPONIN-negative. Diagnostic Radiology CHEST 2 VIEWS ROUTINE HISTORY: EVALUATE RESPIRATORY DISTRESS.DYSPNEA COMPARISON: Chest 08/01/2017. FINDINGS: Left basilar linear densities have slightly improved. This suggests resolving atelectasis. Mild emphysema. No new focal lung consolidations to suggest pneumonia. No evidence for pulmonary edema. No pleural effusions. No pneumothorax. The heart is normal in size. IMPRESSION: 1. Improvement in the left basilar linear densities suggesting resolving atelectasis. No new focal lung consolidations. 2. Emphysema. EKG ST 104, LAFB Impression Assessment and Plan 72 yoM with high aspiration risk presents with GI symptoms and fevers unable to tolerate PEG feedings and too weak to walk at home. 1. Nausea and vomiting-poss 2/2 AGE 2/2 virus as was also ill. Cont supportive care with IVF with lyte correction as needed and antiemetics. Keeping him nothing per mouth or PEG for the time being to give him some bowel rest. 2. Febrile illness-fever thought 2/2 GI illness primarily, however, covering him for poss aspiration pneumonia in this setting as well. 3. SOB-pt is not hypoxic or working to breathe and has no wheezing on exam with good air movement. High risk of aspiration and in setting of fever, coughing with lots of mucous production and recent vomiting and reported concern by patient for aspiration event, empiric Unasyn was started for 48 hours. Blood cultures and sputum cultures were ordered. Risk of MRSA is there as he has had this in the past, however, I do not believe he has a primary lung process at this time-no COPD exacerbation as not wheezing although he does admit to some wheezing at home? Would consider broadening abx to include Vanc if infiltrate appears on CXR or if patient declines clinically. If declines, may also consider steroids. Of note, PO decadron was given in the ER today which will last >24 hrs. 4. Rash on hand-poss 2/2 viral xanthem vs dry skin with the cold, dry weather vs other-will try triamcinolone BID. 5. Anxiety/Depression-Celexa held but Ativan given IV PRN 6. COPD-appears stable at this time, no steroids continued. Cont duonebs prn and home inhalers. 7. Hypothyroidism-Synthroid changed to IV as pt is not tolerating PEG feeds at this time. 8. Hypotension-on Florinef, holding while NPO DVT proph-SCDs in setting of reported daily epistaxis, may consider adding if not too much blood lost. Full Code per my discussion with patient and on admission. Dispo-needs PT/OT evaluation and dc when able to tolerate PEG feedings successfully. Jimena Pimentel DO [facility]ist Level of Care Telemetry Advanced Directives Existing Living Will: No Existing Power of Service Plumber: No Resuscitation Status FULL RESUSCITATION VTE Prophylaxis VTE Risk Assessment Done? Y/N: Yes Risk Level: Moderate Given or contraindicated: SCD's, Contraindicated Additional Copies To Sanjiv Hart III, M.D.
--- NOTE | 2017-08-01 19:27 | EMERGENCY ROOM VISIT NOTE ---
History Report prepared by Rubén: Ella Alexander Under the Supervision of: Dr. Tyrese Smith M.D. First contact with patient: 13:50 Chief Complaint: SHORTNESS OF BREATH Stated Complaint: SICK,CANT BREATH Nursing Triage Summary: pt to the ED with c/o SOB and coughing up green sputum was seen this am and dc home with bronchitis no resp distress noted in triage History of Present Illness The patient is a 72 year old male with a past medical history of asthma, esophageal cancer, COPD, and GERD who presents to the ED with a cc of worsening shortness of breath beginning this morning. The patient states that his breathing and vomiting has gotten worse since he left the ED this morning. Positive fever, shaking, nausea, and vomiting. He states that he is nervous that he may have aspirated on some of his vomit. He notes he used his inhaler with some relief. Negative abnormal bowel movements. Source of History: patient Onset: this morning Position: other (global) Timing: worsening Modifying Factors (Relieving): other (inhaler) Associated Symptoms: + fevers, + nausea, + vomiting Note: The patient complains of shaking. The patient denies abnormal bowel movements. Review of Systems See HPI for pertinent positives and negatives. A total of ten systems were reviewed and were otherwise negative. 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 (9) Dyslipidemia (10) Febrile illness (11) Gastroesophageal reflux disease (12) Gastroparesis (13) Influenza B (14) Nausea & vomiting (15) Orthostatic hypotension (16) Orthostatic hypotension (17) Pneumonia (18) Respiratory failure, acute (19) Sepsis (20) Tonsil carcinoma Surgical Problems: (1) H/O esophagogastroduodenoscopy (2) S/P arthroscopic knee surgery (3) S/P colonoscopy (4) s/p modified radical neck dissection Family History Cancer Diabetes mellitus Heart disease Hypertension Lung disease Social History Smoking Status: Former Smoker Alcohol Use: none Drug Use: none Housing Status: lives with significant other Occupation Status: disabled Current/Historical Medications Scheduled Citalopram Hydrobromide (Citalopram Hydrobromide), 10 MG PO QAM Enteral Nutrition Formula (Boost Plus), 2 CAN PEG QID Fludrocortisone Acetate (Florinef), 0.1 MG PEG DAILY Levothyroxine Sodium (Synthroid), 100 MCG PEG QAM Umeclidinium-Vilanterol (Anoro Ellipta 62.5-25 Mcg/INH), 1 PUFF INH DAILY Scheduled PRN Albuterol Hfa (Ventolin Hfa), 2 PUFF INH Q4 PRN for wheezing Fluticasone Propionate (Inhala (Flovent Diskus), 1 PUFFS INH BID PRN for SOB/ Wheezing Ipratropium-Albuterol (Duoneb), 1 TREATMENT INH Q4H PRN for SOB/Wheezing Lorazepam (Ativan), 0.5 MG PEG DAILY PRN for Anxiety Allergies Coded Allergies: Levofloxacin (Unverified Allergy, Unknown, rash all over body, 08/01/17) Nitrates, Organic (Verified Allergy, Unknown, DROP IN BP, 08/01/17) Sertraline (Unverified Allergy, Unknown, NOSE BLEEDS, 08/01/17) Terazosin (Verified Allergy, Unknown, 08/01/17) Sulfamethoxazole w/Trimethoprim (Unverified Adverse Reaction, Severe, ITCHING, 08/01/17) Physical Exam Vital Signs Date Time Temp Pulse Resp B/P (MAP) Pulse Ox O2 Delivery O2 Flow Rate FiO2 08/01/17 17:00 92 22 104/68 96 Room Air 08/01/17 16:55 38.4 97 20 104/68 110 84/54 08/01/17 15:49 105 20 133/67 99 Nebulizer 5.0 08/01/17 14:50 88 20 96 Room Air 08/01/17 14:48 96 Room Air 08/01/17 12:49 38.2 92 20 143/68 96 Physical Exam GENERAL: Awake, alert, well-appearing, NAD HENT: Atraumatic. Some dysarthria. Deformities to the head and neck consistent with prior throat cancer. EYES: Normal conjunctiva. Sclera non-icteric. NECK: Supple. No nuchal rigidity. FROM. RESPIRATORY: Diffuse wheezing throughout inspiratory and expiratory, no rhonchi , wheezing, crackles CARDIAC: RRR, no MRG ABDOMEN: Soft, NTND, BS+, feeding tube left and lateral to the umbilicus. MSK: No chest wall TTP, no LE edema NEURO: GCS 15, CN 2-12 intact, moves all 4s on command SKIN: No rash or jaundice noted. Medical Decision & Procedures ER Provider Diagnostic Interpretation: Radiology results as stated below per my review and radiologist interpretation: CHEST 2 VIEWS ROUTINE HISTORY: EVALUATE RESPIRATORY DISTRESS.DYSPNEA COMPARISON: Chest 08/01/2017. FINDINGS: Left basilar linear densities have slightly improved. This suggests resolving atelectasis. Mild emphysema. No new focal lung consolidations to suggest pneumonia. No evidence for pulmonary edema. No pleural effusions. No pneumothorax. The heart is normal in size. IMPRESSION: 1. Improvement in the left basilar linear densities suggesting resolving atelectasis. No new focal lung consolidations. 2. Emphysema. Electronically signed by: Rylan Archuleta M.D. 08/01/2017 3:32 PM Dictated Date/Time: 08/01/2017 3:29 PM Medications Administered Medications (Trade) Dose Ordered Sig/John Route Start Time Stop Time Status Last Admin Dose Admin Acetaminophen (Tylenol Tab) 1,000 mg STK-MED ONCE PO 08/01/17 14:24 08/01/17 14:25 DC 08/01/17 14:24 1,000 MG Albuterol/ Ipratropium (Duoneb) 12 ml ONE ONCE INH 08/01/17 14:30 08/01/17 14:31 DC 08/01/17 14:50 12 ML Dexamethasone Sodium Phosphate (Dexamethasone Inj Pf) 10 mg NOW ONCE PO 08/01/17 14:30 08/01/17 14:31 DC 08/01/17 14:30 10 MG Famotidine (Pepcid Tab) 20 mg NOW ONCE PO 08/01/17 14:30 08/01/17 14:31 DC 08/01/17 14:30 20 MG Ondansetron HCl (Zofran Odt) 4 mg NOW STAT PO 08/01/17 14:25 08/01/17 14:29 DC 08/01/17 14:25 4 MG Al Hydroxide/Mg Hydroxide (Maalox Susp) 30 ml STK-MED ONCE .ROUTE 08/01/17 15:11 08/01/17 15:12 DC 08/01/17 15:14 30 ML Lidocaine HCl (Viscous Lidocaine 2% Soln) 20 ml STK-MED ONCE .ROUTE 08/01/17 15:11 08/01/17 15:12 DC 08/01/17 15:14 20 ML Sodium Chloride 1,000 ml @ 999 mls/hr Q1H1M STAT IV 08/01/17 16:59 08/01/17 17:59 DC 08/01/17 16:59 999 MLS/HR ECG Indication: SOB/dyspnea Rate (beats per minute): 104 Rhythm: sinus tachycardia Findings: left axis deviation, other (normal intervals, motion artifact, no obvious STS changes or TWI) ED Course 1416: The patient was evaluated in room B11B. A complete history and physical exam was performed. 1601: I reevaluated the patient and he is doing well. 1620: I am having case management speak to him and his about home help. 1659: The patient is unable to ambulate and will need to be admitted. 1706: Discussed the patient's case with Dr. Nusrat Hooker Hospitalist. The patient will be evaluated for further treatment and disposition. Medical Decision The patient is a 72 year old male with a past medical history of asthma, esophageal cancer, COPD, and GERD who presents to the ED with a cc of worsening shortness of breath beginning this morning. Etiologies such as infections, reactive airway disease, pneumonia, pneumothorax , COPD, CHF, cardiac ischemia, pulmonary embolism, musculoskeletal, gastrointestinal, as well as others were entertained. Patient was seen and evaluated the bedside. Patient was recently seen and evaluated this morning diagnosed with a your eye. Upon presentation the patient was complaining of some shortness of breath and had had 2 episodes of vomiting. Of note the patient does have a fever. Patient's blood work was reviewed during his earlier states today which is fairly unremarkable. Patient did have an EKG as well as a chest x-ray. Patient's chest x-ray appeared improved. Patient was given symptom control for his upset stomach as well as fever. Patient's chest x-ray was again improved and unremarkable. Of note the patient does use a PEG tube for feeds primarily. Case management did speak with the patient's . I discussed with the patient's that he may have a sort of viral gastritis and this may cause him to be mildly symptomatic however most of this is usually viral nature and will improve with time. Patient was attempted to be ambulatory however he had orthostatic hypotension. An IV was started and the patient was given fluids. Of note the patient did have wheezing initially on exam. The patient was given steroids as well as a DuoNeb. Upon reassessment the patient's wheezing had improved. No antibiotics were given at this time given the concern that the antibiotics would cause more GI upset and possible recurrent vomiting. Given his orthostatic hypotension and inability to form some ADLs I did speak with the hospitalist who agreed to further evaluate and observe the patient. We did discuss that he does have a prior history of aspiration pneumonia however his chest x-ray appeared improved. Medication Reconcilliation Current Medication List: was personally reviewed by me Blood Pressure Screening Patient's blood pressure: Normal blood pressure Will be further monitored by the hospitalist. Consults Time Called: 1700 Consulting Physician: Dr. Nusrat Hooker Hospitalist Returned Call: [phone] Discussed the patient's case with Dr. Nusrat [facility]er [facility]. The patient will be evaluated for further treatment and disposition. Impression Primary Impression: Dehydration Additional Impressions: Gastritis Fever Scribe Attestation The scribe's documentation has been prepared under my direction and personally reviewed by me in its entirety. I confirm that the note above accurately reflects all work, treatment, procedures, and medical decision making performed by me. Departure Information Dispostion Being Evaluated By Hospitalist Referrals Sanjiv Hart III, M.D. (PCP) Patient Instructions My [facility] Problem Qualifiers Additional Impressions: Gastritis Gastritis type: unspecified gastritis Chronicity: unspecified Gastritis bleeding: presence of bleeding unspecified Qualified Codes: K29.70 - Gastritis, unspecified, without bleeding Fever Fever type: unspecified Qualified Codes: R50.9 - Fever, unspecified
[2017-08-01 20:00] VITALS: O2SAT 94
[2017-08-01] MEDS: D5NSS + 20MEQ KCL 1,000 ML IV SCH (20:30)
[2017-08-01] MEDS: AMPICILLIN/SULBACTAM SOD INJ 3,000 MG in SODIUM CHLORIDE 0.9% 100ML 100 ML IV SCH (20:31)
[2017-08-01] MEDS: TRIAMCINOLONE ACET 0.1% OINT 15 GM TUBE EXT SCH (20:34)
[2017-08-01] MEDS ORDERED: IV FLUIDS COMPLETED PRN (22:15)
[2017-08-01 23:40] VITALS: BP 102/60; PULSE 65; TEMP 36.7; O2SAT 95
[2017-08-02] VITALS (10 sets, daily range): BP systolic 116–158; BP diastolic 67–87; PULSE 62–74; TEMP 36.6–37; O2SAT 95–98; Ht 180.3 cm; Wt 88.0 kg
[2017-08-02] MEDS: AMPICILLIN/SULBACTAM SOD INJ 3,000 MG in SODIUM CHLORIDE 0.9% 100ML 100 ML IV SCH ×4 (01:19→20:08)
[2017-08-02] MEDS: D5NSS + 20MEQ KCL 1,000 ML IV SCH ×2 (06:43→17:05)
[2017-08-02 07:06] LABS: HEMATOCRIT 38.4 % (42-52); HEMOGLOBIN 13.3 g/dL (14.0-18.0); MEAN CELL VOLUME 94.3 fL (80-100); MEAN CORPUSCULAR HEMOGLOBIN 32.7 pg (25-34); MEAN CORPUSCULAR HGB CONC 34.6 g/dl (32-36); MEAN PLATELET VOLUME 11.3 fL (7.4-10.4); PLATELET COUNT 110 K/uL (130-400); RED CELL DISTRIBUTION WIDTH CV 14.5 % (11.5-14.5); RED CELL DISTRIBUTION WIDTH SD 50.3 fL (36.4-46.3); WHITE BLOOD COUNT 8.92 K/uL (4.8-10.8)
[2017-08-02 07:43] LABS: CALCIUM 8.6 mg/dl (8.5-10.1); CREATININE 0.86 mg/dl (0.60-1.40); POTASSIUM 4.3 mmol/L (3.5-5.1)
[2017-08-02 07:52] LABS: PHOSPHORUS 1.2 mg/dl (2.5-4.9)
[2017-08-02] MEDS ORDERED: SODIUM PHOSPHATE INJ 30 MMOL in SODIUM CHLORIDE 0.9% 500ML 500 ML IV ONE (08:30)
[2017-08-02] MEDS ORDERED: LEVALBUTEROL/IPRATROPIUM NEB INH SCH (09:00)
--- NOTE | 2017-08-02 09:17 | Progress Note ---
Medicine Progress Note Date & Time of Visit: Aug 02, 2017 at 09:02. Subjective patient seen resting in bed, comfortable at bedside states nausea/vomiting has resolved, denies abdominal pain breathing improving, less cough and phlegm, no dyspnea denies other symptoms would like to try Boost again Objective Last 8 Hrs Date Time Temp Pulse Resp B/P (MAP) Pulse Ox O2 Delivery O2 Flow Rate FiO2 08/02/17 08:08 36.9 63 20 152/71 (98) 97 Room Air 08/02/17 04:00 97 Room Air 08/02/17 03:45 36.7 63 18 127/72 (90) 97 Room Air Physical Exam: General- oriented x 3, not in distress, speaks in sentences Head- atraumatic Eyes- PERRL, EOMI, anicteric ENT- oropharynx clear Neck- supple, no JVD Lungs-mild rhonchi right base, no wheezes Heart- regular rhythm; no murmur, normal rate Abdomen- normal bowel sounds, non distended, soft, nontender, Peg tube site: no signs of active infection, no tenderness Extremities- no pretibial edema, no calf tenderness; peripheral pulses intact Neuro- alert, oriented x 3;very hard of hearing, otherwise no gross focal deficits Skin- warm & dry Laboratory Results: Last 24 Hours Test 08/01/17 23:17 08/02/17 06:46 Bedside Glucose 225 mg/dl White Blood Count 8.92 K/uL Red Blood Count 4.07 M/uL Hemoglobin 13.3 g/dL Hematocrit 38.4 % Mean Corpuscular Volume 94.3 fL Mean Corpuscular Hemoglobin 32.7 pg Mean Corpuscular Hemoglobin Concent 34.6 g/dl RDW Standard Deviation 50.3 fL RDW Coefficient of Variation 14.5 % Platelet Count 110 K/uL Mean Platelet Volume 11.3 fL Sodium Level 141 mmol/L Potassium Level 4.3 mmol/L Chloride Level 108 mmol/L Carbon Dioxide Level 24 mmol/L Anion Gap 9.0 mmol/L Blood Urea Nitrogen 20 mg/dl Creatinine 0.86 mg/dl Est Creatinine Clear Calc Drug Dose 85.1 ml/min Estimated GFR () 101.8 Estimated GFR (Non- 87.9 BUN/Creatinine Ratio 23.0 Random Glucose 126 mg/dl Calcium Level 8.6 mg/dl Phosphorus Level 1.2 mg/dl Magnesium Level 2.3 mg/dl Date/Time Source Procedure Growth Status 08/01/17 18:57 Blood Blood Culture Pending Received 08/01/17 18:48 Blood Blood Culture Pending Received Assessment & Plan 72 year old male with history of Aspiration, Gastroparesis, Tonsil CA, s/p PEG tube, COPD/Asthma, 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 NAUSEA/VOMITING CHRONIC PEG TUBE PLACEMENT, ON BOOST - likely from underlying infection: Sinusitis, Acute Bronchitis developed after having fever, upper respiratory tract symptoms management noted below - r/o Obstruction, PEG tube malfunction KUB GI consult nothing per PEG tube for now FEVER, WEAKNESS LIKELY FROM ACUTE SINUSITIS, BRONCHITIS - CXR: clear - ff up blood culture urine culture - may also have component of aspiration pneumonitis Unasyn Day 2, afebrile so far, symptoms improving, continue for now - monitor RASH ON THE HANDS/FOREARM - trial of Kenalog Anxiety/Depression-Celexa held but Ativan given IV PRN COPD - stable - was wheezing last Wednesday per - given Decadron in the ER - no signs of exacerbation at this time will give Nebs TID Hypothyroidism-Synthroid changed to IV as pt is not tolerating PEG feeds at this time. Hypotension-on Florinef, holding while NPO DVT proph-SCDs in setting of reported daily epistaxis encouraged ambulation consider Lovenox if with prolonged hospital stay Full Code Dispo-needs PT/OT evaluation and dc home when stable- tolerating PEG tube feeds , afebrile Current Inpatient Medications: Current Inpatient Medications Medications (Trade) Dose Ordered Sig/John Route Start Time Stop Time Status Last Admin Dose Admin Potassium Chloride/Dextrose/ Sod Cl 1,000 ml @ 100 mls/hr Q10H IV 08/01/17 17:57 08/31/17 17:56 08/02/17 06:43 100 MLS/HR Ondansetron HCl (Zofran Inj) 4 mg Q6H PRN IV 08/01/17 18:00 08/31/17 17:59 Ampicillin Sodium/ Sulbactam Sodium 3000 mg/Sodium Chloride 108 ml @ 200 mls/hr Q6H IV 08/01/17 19:00 08/03/17 18:59 08/02/17 06:44 200 MLS/HR Triamcinolone Acetonide (Kenalog 0.1% Oint) 1 appln BID EXT 08/01/17 21:00 08/31/17 20:59 08/01/17 20:34 1 APPLN Albuterol/ Ipratropium (Duoneb) 3 ml Q4H PRN INH 08/01/17 18:15 08/31/17 18:14 Fluticasone Propionate (Flonase Nasal [place]) 1 sprays BID PRN JONN 08/01/17 18:15 08/31/17 18:14 Miscellaneous Information (Order Awaiting Action) 1 ea QS N/A 08/02/17 00:00 09/01/17 00:00 Levothyroxine Sodium 50 mcg/ Syringe 2.5 ml @ 2 mls/min DAILY@09 IV 08/02/17 09:00 09/01/17 08:59 Lorazepam (Ativan Inj) 0.5 mg DAILY PRN IV 08/01/17 18:15 08/31/17 18:14 Miscellaneous (Iv Fluids Completed) 1 ea PRN PRN N/A 08/01/17 22:15 08/01/18 22:14 Sodium Phosphate 30 mmol/Sodium Chloride 510 ml @ 88 mls/hr ONE ONCE IV 08/02/17 08:30 08/02/17 14:17 Miscellaneous (Xopenex/ Atrovent Neb) 1 ea TID INH 08/02/17 09:00 09/01/17 08:59 UNV
[2017-08-02] MEDS: TRIAMCINOLONE ACET 0.1% OINT 15 GM TUBE EXT SCH ×2 (09:23→20:07)
[2017-08-02] MEDS: LEVOTHYROXINE SODIUM INJ 50 MCG in SYRINGE 0 ML IV SCH (09:31)
--- NOTE | 2017-08-02 10:07 | DIAGNOSTIC IMAGING REPORT ---
[facility] CLINICAL HISTORY: nausea/vomiting pain COMPARISON STUDY: 06/11/2017 FINDINGS: PEG tube positioned over the mid stomach. Nonobstructive bowel pattern. Normal fecal load within the colon. IMPRESSION: Nonobstructive bowel pattern. PEG tube localized over the mid stomach. The above report was generated using voice recognition software. It may contain grammatical, syntax or spelling errors. Electronically signed by: Blane Nazario M.D. 08/02/2017 10:06 AM Dictated Date/Time: 08/02/2017 10:05 AM
--- NOTE | 2017-08-02 11:38 | Gastrointestinal Consultation ---
Gastrointestinal Consultation Date of Consultation: Aug 02, 2017 Attending Physician: Jacky Consulting Physician: Rebecca Reason for Consultation: PEG placement, N/V History of Present Illness Patient is a 72 year old male who is NPO due to aspiration risk w/ PEG placement who presented to the ED w/ fevers, chills, SOB, N/V/D x 48 hours. Pt is seen and evaluated, chart reviewed. is at bedside who is aiding in history. Pt notes she was sick at home last week w/ similar symptoms but did not develop any vomiting. Pt notes complete resolution of his symptoms this AM, he is feeling well and is hungry. GI was asked to evaluate PEG. Pt as had a PEG x 8 years, was changed in 2016. They note that the PEG is working well, flushing well. Notes he does not follow with GI nutrition - was told to use 8 boosts daily. Pt notes that overtime, he has become less tolerate of his feeds, w/ bloating after 2 cans of boost. Finds that he is quite full w/ this dosing. He feels bloated after trying only one can, not decreased appetite and early satiety. notes it has been a struggle to get 8 cans in daily, have been using between 4-6 cans. KUB: Nonobstructive bowel pattern. PEG tube localized over the mid stomach Chest XR: Improvement in the left basilar linear densities suggesting resolving atelectasis. No new focal lung consolidations. Emphysema. Past Medical/Surgical History Medical Problems: (1) Allergic drug reaction Status: Acute (2) Anemia Status: Acute (3) Anterior epistaxis Status: Acute (4) Atypical chest pain Status: Acute (5) Bilateral pneumonia Status: Acute (6) Bleeding nose Status: Acute (7) Chest heaviness Status: Acute (8) Chest pain Status: Acute (9) Chronic obstructive pulmonary disease Status: Acute (10) COPD exacerbation Status: Acute (11) COPD exacerbation Status: Acute (12) Cough Status: Acute (13) Cough Status: Acute (14) Dehydration Status: Acute (15) Dehydration Status: Acute (16) Dog bite of extremity Status: Acute (17) Dog bite of left lower leg Status: Acute (18) Epididymitis Status: Acute (19) Fever Status: Acute (20) Gastritis Status: Acute (21) Hx of malignant neoplasm of tonsil Status: Acute (22) Hypoglycemia Status: Acute (23) Hypoxia Status: Acute (24) Nasal bleeding Status: Acute (25) Nausea, vomiting, and diarrhea Status: Acute (26) Need for post exposure prophylaxis for rabies Status: Acute (27) Need for prophylactic vaccination against rabies Status: Acute (28) Pneumonia Status: Acute (29) Pneumonia Status: Acute (30) Pneumonitis Status: Acute (31) Rabies, need for prophylactic vaccination against Status: Acute (32) Sepsis Status: Acute (33) Sepsis Status: Acute (34) Thrush Status: Acute (35) Upper respiratory infection Status: Acute Past Medical History: asthma, BPH, bronchitis, chronic pain, COPD, hyperlipidemia, GERD, gastroparesis , tonsil carcinoma, strict NPO Past Surgical History: arthroscopic knee surgery, EGD, Colon, PEG placement, s/p modified radical neck dissection for tonsilar CA Family History Cancer Diabetes mellitus Heart disease Hypertension Lung disease Social History Smoking Status: Former Smoker Alcohol Use: none Drug Use: none Marital Status: Housing Status: lives with significant other Occupation Status: disabled Allergies Coded Allergies: Levofloxacin (Unverified Allergy, Unknown, rash all over body, 08/01/17) Nitrates, Organic (Verified Allergy, Unknown, DROP IN BP, 08/01/17) Sertraline (Unverified Allergy, Unknown, NOSE BLEEDS, 08/01/17) Terazosin (Verified Allergy, Unknown, 08/01/17) Sulfamethoxazole w/Trimethoprim (Unverified Adverse Reaction, Severe, ITCHING, 08/01/17) Current Medications Home Meds and Scripts Medications Dose Route/Sig Max Daily Dose Days Date Category Florinef (Fludrocortisone Acetate) 0.1 Mg Tab 0.1 Mg PEG DAILY 06/11/17 Reported Ativan (Lorazepam) 0.5 Mg Tab 0.5 Mg PEG DAILY PRN 06/11/17 Reported Citalopram Hydrobromide 20 Mg Tab 10 Mg PO QAM 06/11/17 Reported Duoneb (Ipratropium-Albuterol) 3 Ml Nebu 1 Treatment INH Q4H PRN 02/27/17 Reported Anoro Ellipta 62.5-25 Mcg/INH (Umeclidinium-Vilanterol) 1 Aer Aer 1 Puff INH DAILY 12/17/16 Reported Ventolin Hfa (Albuterol) 200 Puffs/48324 Mcg Aers 2 Puff INH Q4 PRN 12/03/16 Reported Boost Plus (Enteral Nutrition Formula) 1 Can Liqd 2 Can PEG QID 01/15/16 Reported Flovent Diskus (Fluticasone Propionate (Inhala) 100 Mcg/Blist Aer 1 Puffs INH BID PRN 01/15/16 Reported Synthroid (Levothyroxine Sodium) 100 Mcg Tab 100 Mcg PEG QAM 05/12/13 Reported Review of Systems Constitutional: No fever, No chills Respiratory: No cough, No shortness of breath Cardiac: No chest pain, No edema Abdomen: + problem reported (hungry), No pain, No nausea, No vomiting, No diarrhea, No constipation, No GI bleeding Physical Exam Date Time Temp Pulse Resp B/P (MAP) Pulse Ox O2 Delivery O2 Flow Rate FiO2 08/02/17 08:08 36.9 63 20 152/71 (98) 97 Room Air 08/02/17 04:00 97 Room Air 08/02/17 03:45 36.7 63 18 127/72 (90) 97 Room Air 08/02/17 00:00 95 Room Air 08/01/17 23:40 36.7 65 18 102/60 (74) 95 Room Air 08/01/17 20:00 94 Room Air 08/01/17 18:25 37.9 82 19 125/66 (85) 94 Room Air 08/01/17 18:21 38.4 110 20 110/68 96 Nasal Cannula 08/01/17 17:41 99 Nasal Cannula 5.0 08/01/17 17:00 92 22 104/68 96 Room Air 08/01/17 16:55 38.4 97 20 104/68 110 84/54 08/01/17 15:49 105 20 133/67 99 Nebulizer 5.0 08/01/17 14:50 88 20 96 Room Air 08/01/17 14:48 96 Room Air 08/01/17 12:49 38.2 92 20 143/68 96 General Appearance: no apparent distress Eyes: PERRL ENT: hearing grossly normal Neck: supple Respiratory/Chest: lungs clear Cardiovascular: regular rate, rhythm Abdomen: normal bowel sounds, non tender, soft Neurologic/Psych: alert, normal mood/affect, oriented x 3 Skin: normal color, no jaundice Laboratory Results Last 24 Hours Test 08/01/17 23:17 08/02/17 06:46 Bedside Glucose 225 mg/dl White Blood Count 8.92 K/uL Red Blood Count 4.07 M/uL Hemoglobin 13.3 g/dL Hematocrit 38.4 % Mean Corpuscular Volume 94.3 fL Mean Corpuscular Hemoglobin 32.7 pg Mean Corpuscular Hemoglobin Concent 34.6 g/dl RDW Standard Deviation 50.3 fL RDW Coefficient of Variation 14.5 % Platelet Count 110 K/uL Mean Platelet Volume 11.3 fL Sodium Level 141 mmol/L Potassium Level 4.3 mmol/L Chloride Level 108 mmol/L Carbon Dioxide Level 24 mmol/L Anion Gap 9.0 mmol/L Blood Urea Nitrogen 20 mg/dl Creatinine 0.86 mg/dl Est Creatinine Clear Calc Drug Dose 85.1 ml/min Estimated GFR () 101.8 Estimated GFR (Non- 87.9 BUN/Creatinine Ratio 23.0 Random Glucose 126 mg/dl Calcium Level 8.6 mg/dl Phosphorus Level 1.2 mg/dl Magnesium Level 2.3 mg/dl Impression Patient is a 72 year old male w/ history of tonsilar CA s/p radical neck dissection w/ severe aspiration on strict NPO w/ PEG placement about 8 years ago , who was brought to the ED for fever, cough, chills, SOB, nausea, vomiting, diarrhea x 48 hours. Symptoms largely resolved, but continues to have a cough and some SOB. Pt and concerned that he is no longer able to tolerate 8 boosts via PEG daily becomes bloated and extremely full. PEG is functioning well, flushing well , no pain w/ feed, no leaking, no abd pain. There is mild irritation and erythema to the skin, likely from bumper contact. Imaging reviewed, unable to fully evaluate PEG on KUB. Plan - May need PEG tube change --> NPO after midnight in event of PEG change - No GI contraindication to PEG tube use - Pt needs to establish w/ GI nutrition for additional nutritional recommendations - He does have a history of gastroparesis - Smaller, more frequent feeds - Can consider low dose reglan use during admission if needed - GI to sign off, please call with any question, concerns, acute changes
[2017-08-02] MEDS: IPRATROPIUM BROMIDE NEB SOLN 0.02% 2.5 ML VIAL INH SCH ×2 (18:04→19:42)
[2017-08-02] MEDS: LEVALBUTEROL 0.63MG/3 ML NEB INH SCH ×2 (18:05→19:42)
[2017-08-02] MEDS: BOOST PLUS VANILLA PEG SCH (20:08)
[2017-08-03] VITALS (11 sets, daily range): BP systolic 14–153; BP diastolic 62–79; PULSE 60–79; TEMP 36.7–38.1; O2SAT 94–98
[2017-08-03] MEDS: D5NSS + 20MEQ KCL 1,000 ML IV SCH ×3 (00:51→18:24)
[2017-08-03] MEDS: AMPICILLIN/SULBACTAM SOD INJ 3,000 MG in SODIUM CHLORIDE 0.9% 100ML 100 ML IV SCH ×4 (00:51→18:23)
[2017-08-03] MEDS: IPRATROPIUM BROMIDE NEB SOLN 0.02% 2.5 ML VIAL INH SCH ×3 (07:25→19:50)
[2017-08-03] MEDS: LEVALBUTEROL 0.63MG/3 ML NEB INH SCH ×3 (07:25→19:50)
[2017-08-03] MEDS: LEVOTHYROXINE SODIUM INJ 50 MCG in SYRINGE 0 ML IV SCH (08:33)
[2017-08-03] MEDS: TRIAMCINOLONE ACET 0.1% OINT 15 GM TUBE EXT SCH ×2 (08:34→21:00)
--- NOTE | 2017-08-03 12:03 | Progress Note ---
Progress Note Date of Service Aug 03, 2017. Progress Note Pt was seen and evaluated, chart reviewed. PEG was used yesterday after evaluation by nutrition. Pt tolerated feeding well, no abd pain, no issues with the PEG. Pt report he lost the cap to his PEG tube, otherwise PEG working well. No acute distress. Lungs CTA Heart RR Abd, soft and non-distended, PEG intact NPO for PEG change. 1438 - ok to use PEG. GI to sign off. Pt to follow up as outpatient with any questions or concerns.
[2017-08-03] MEDS ORDERED: BOOST VANILLA ONE (13:38)
[2017-08-03] MEDS ORDERED: BOOST PLUS VANILLA ONE (13:40)
[2017-08-03] MEDS: BOOST PLUS VANILLA PEG SCH ×4 (13:41→19:42)
[2017-08-03] MEDS ORDERED: NURSING VERBAL MED ORDER ONE (14:00)
--- NOTE | 2017-08-03 17:32 | Progress Note ---
Medicine Progress Note Date & Time of Visit: Aug 03, 2017 at 17:10. Subjective Pt was seen and examined Lying in bed with no distress with at bedside Pt said that he feels much better Denies any chest pain, palpitation, dizziness and SOB Objective Last 8 Hrs Date Time Temp Pulse Resp B/P (MAP) Pulse Ox O2 Delivery O2 Flow Rate FiO2 08/03/17 16:00 96 Room Air 08/03/17 15:17 37.2 79 18 130/73 (92) 94 Room Air 08/03/17 15:00 37.1 66 18 94 5.0 08/03/17 14:44 66 18 94 Room Air 08/03/17 12:00 Room Air 08/03/17 11:48 37.1 64 18 124/62 (82) 95 Room Air Physical Exam: General- No acute distress Head- atraumatic Eyes- PERRL, EOMI ENT- oropharynx clear Neck- supple, no JVD Lungs- No wheezing Heart- regular rhythm; no murmur Abdomen- normal bowel sounds, + peg tube Extremities- no calf tenderness Neuro- alert, oriented x 3; PERRL Skin- warm & dry Assessment & Plan GENERALIZED WEAKNESS Possible related to acute illness Sputum cx positive for gram negative bacilli Continue unasyn cough improves Clinically improved NAUSEA/VOMITING CHRONIC PEG TUBE PLACEMENT Possible related to Peg tube malfunction Peg Tube changed Ok to use peg as per GI Resolved ACUTE BRONCHITIS CXR showed no pneumonia Urine cx and blood cx no growth Sputum cx grew gram negative bacilli continue unasyn RASH ON THE HANDS/FOREARM Trial of Kenalog Anxiety/Depression Will resume Celexa Continue Ativan PRN COPD Stable No signs of exacerbation at this time Hypothyroidism On IV Synthroid Will change to PO Hypotension BP stable DVT px on SCDs Full Code Disposition Will discharge home tomorrow Will need a rolling walker with sit on discharge Current Inpatient Medications: Current Inpatient Medications Medications (Trade) Dose Ordered Sig/John Route Start Time Stop Time Status Last Admin Dose Admin Potassium Chloride/Dextrose/ Sod Cl 1,000 ml @ 100 mls/hr Q10H IV 08/01/17 17:57 08/31/17 17:56 08/03/17 08:33 100 MLS/HR Ondansetron HCl (Zofran Inj) 4 mg Q6H PRN IV 08/01/17 18:00 08/31/17 17:59 Ampicillin Sodium/ Sulbactam Sodium 3000 mg/Sodium Chloride 108 ml @ 200 mls/hr Q6H IV 08/01/17 19:00 08/03/17 18:59 08/03/17 13:41 200 MLS/HR Triamcinolone Acetonide (Kenalog 0.1% Oint) 1 appln BID EXT 08/01/17 21:00 08/31/17 20:59 08/03/17 08:34 1 APPLN Albuterol/ Ipratropium (Duoneb) 3 ml Q4H PRN INH 08/01/17 18:15 08/31/17 18:14 Fluticasone Propionate (Flonase Nasal [place]) 1 sprays BID PRN JONN 08/01/17 18:15 08/31/17 18:14 Miscellaneous Information (Order Awaiting Action) 1 ea QS N/A 08/02/17 00:00 09/01/17 00:00 Levothyroxine Sodium 50 mcg/ Syringe 2.5 ml @ 2 mls/min DAILY@09 IV 08/02/17 09:00 09/01/17 08:59 08/03/17 08:33 2 MLS/MIN Lorazepam (Ativan Inj) 0.5 mg DAILY PRN IV 08/01/17 18:15 08/31/17 18:14 08/02/17 20:17 0.5 MG Miscellaneous (Iv Fluids Completed) 1 ea PRN PRN N/A 08/01/17 22:15 08/01/18 22:14 Ipratropium [place] (Atrovent 0.02% 0.5MG/2.5ML Neb) 0.5 mg TIDR INH 08/02/17 15:00 09/01/17 14:59 08/03/17 14:43 0.5 MG Levalbuterol (Xopenex 0.63 Mg/ 3 Ml Neb) 0.63 mg TIDR INH 08/02/17 15:00 09/01/17 14:59 08/03/17 14:43 0.63 MG Enteral Nutritional Formula (Boost Plus Vanilla) 1 can QID@0800,1200,1600,2000 PEG 08/02/17 20:00 09/01/17 19:59 Future hold 08/03/17 13:41 1 CAN Ampicillin Sodium/ Sulbactam Sodium 3000 mg/Sodium Chloride 108 ml @ 200 mls/hr Q6H IV 08/03/17 19:00 08/10/17 18:59
[2017-08-03] MEDS ORDERED: LORAZEPAM 0.5 MG TAB PEG PRN (17:45)
[2017-08-04] MEDS: AMPICILLIN/SULBACTAM SOD INJ 3,000 MG in SODIUM CHLORIDE 0.9% 100ML 100 ML IV SCH ×2 (01:00→06:35)
[2017-08-04 03:30] VITALS: BP 152/81; PULSE 74; TEMP 37.6; O2SAT 96
[2017-08-04] MEDS: D5NSS + 20MEQ KCL 1,000 ML IV SCH (04:36)
[2017-08-04] MEDS ORDERED: LEVOTHYROXINE 100 MCG TAB PEG SCH (06:00)
[2017-08-04 07:10] VITALS: PULSE 73; O2SAT 94
[2017-08-04] MEDS: IPRATROPIUM BROMIDE NEB SOLN 0.02% 2.5 ML VIAL INH SCH (07:10)
[2017-08-04] MEDS: LEVALBUTEROL 0.63MG/3 ML NEB INH SCH (07:10)
[2017-08-04 07:31] VITALS: BP 128/78; PULSE 74; TEMP 37.5; O2SAT 94
[2017-08-04] MEDS: BOOST PLUS VANILLA PEG SCH ×2 (08:00→11:57)
[2017-08-04] MEDS ORDERED: CITALOPRAM 20 MG TAB PEG SCH (09:00)
[2017-08-04] MEDS: TRIAMCINOLONE ACET 0.1% OINT 15 GM TUBE EXT SCH (09:43)
[2017-08-04 11:44] VITALS: BP 138/82; PULSE 81; TEMP 37.2; O2SAT 95
--- NOTE | 2017-08-04 12:57 | Progress Note ---
Medicine Progress Note Date & Time of Visit: Aug 04, 2017 at 12:45. Subjective Pt was seen and examined Lying in bed with no distress with at bedside Pt said that he feels much better Denies any chest pain, palpitation, dizziness and SOB Objective Last 8 Hrs Date Time Temp Pulse Resp B/P (MAP) Pulse Ox O2 Delivery O2 Flow Rate FiO2 08/04/17 12:00 Room Air 08/04/17 11:44 37.2 81 20 138/82 (100) 95 Room Air 08/04/17 08:00 Room Air 08/04/17 07:31 37.5 74 20 128/78 (95) 94 Room Air 08/04/17 07:10 73 16 94 Room Air Physical Exam: General- No acute distress Head- atraumatic Eyes- PERRL, EOMI ENT- oropharynx clear Neck- supple, no JVD Lungs- No wheezing Heart- regular rhythm; no murmur Abdomen- normal bowel sounds, + peg tube Extremities- no calf tenderness Neuro- alert, oriented x 3; PERRL Skin- warm & dry Laboratory Results: Last 24 Hours Test 08/04/17 11:15 Bedside Glucose 97 mg/dl Assessment & Plan GENERALIZED WEAKNESS Possible related to acute illness PT/OT Fall precaution use walker to ambulate Clinically improved NAUSEA/VOMITING CHRONIC PEG TUBE PLACEMENT Possible related to Peg tube malfunction Peg Tube changed Ok to use peg as per GI Resolved ACUTE BRONCHITIS CXR showed no pneumonia Urine cx and blood cx no growth Sputum cx positive for serratia Marcescens On unasyn, will change to cefuroxime 50mg BID cough improves RASH ON THE HANDS/FOREARM Trial of Kenalog Anxiety/Depression Will resume Celexa Continue Ativan PRN COPD Stable No signs of exacerbation at this time Hypothyroidism On IV Synthroid Will change to PO Hypotension BP stable DVT px on SCDs Full Code Disposition Will discharge home today Script given for rolling walker Follow up with Dr. Coffey (Dr. Hart) on 08/12 @ 11:00 am Current Inpatient Medications: Current Inpatient Medications Medications (Trade) Dose Ordered Sig/John Route Start Time Stop Time Status Last Admin Dose Admin Potassium Chloride/Dextrose/ Sod Cl 1,000 ml @ 100 mls/hr Q10H IV 08/01/17 17:57 08/31/17 17:56 08/04/17 04:36 100 MLS/HR Ondansetron HCl (Zofran Inj) 4 mg Q6H PRN IV 08/01/17 18:00 08/31/17 17:59 Triamcinolone Acetonide (Kenalog 0.1% Oint) 1 appln BID EXT 08/01/17 21:00 08/31/17 20:59 08/04/17 09:43 1 APPLN Albuterol/ Ipratropium (Duoneb) 3 ml Q4H PRN INH 08/01/17 18:15 08/31/17 18:14 Fluticasone Propionate (Flonase Nasal [place]) 1 sprays BID PRN JONN 08/01/17 18:15 08/31/17 18:14 Miscellaneous Information (Order Awaiting Action) 1 ea QS N/A 08/02/17 00:00 09/01/17 00:00 Miscellaneous (Iv Fluids Completed) 1 ea PRN PRN N/A 08/01/17 22:15 08/01/18 22:14 Ipratropium [place] (Atrovent 0.02% 0.5MG/2.5ML Neb) 0.5 mg TIDR INH 08/02/17 15:00 09/01/17 14:59 08/04/17 07:10 0.5 MG Levalbuterol (Xopenex 0.63 Mg/ 3 Ml Neb) 0.63 mg TIDR INH 08/02/17 15:00 09/01/17 14:59 08/04/17 07:10 0.63 MG Enteral Nutritional Formula (Boost Plus Vanilla) 1 can QID@0800,1200,1600,2000 PEG 08/02/17 20:00 09/01/17 19:59 Future hold 08/03/17 13:41 1 CAN Ampicillin Sodium/ Sulbactam Sodium 3000 mg/Sodium Chloride 108 ml @ 200 mls/hr Q6H IV 08/03/17 19:00 08/10/17 18:59 08/04/17 06:35 200 MLS/HR Citalopram Hydrobromide (celeXA TAB) 10 mg QAM PEG 08/04/17 09:00 09/03/17 08:59 Levothyroxine Sodium (Synthroid Tab) 100 mcg DAILYBB PEG 08/04/17 06:00 09/03/17 05:59 08/04/17 06:30 100 MCG Lorazepam (Ativan Tab) 0.5 mg DAILY PRN PEG 08/03/17 17:45 09/02/17 17:44
[2017-08-04] MEDS ORDERED: CEFUROXIME AXETIL 500 MG TAB PO SCH (13:00)
[2017-08-04] MEDS ORDERED: CEFU1TAB35 PO (13:09)
[2017-08-04] MEDS ORDERED: TRMO115 EXT (13:09)
--- NOTE | 2017-08-04 13:14 | Discharge Instructions ---
Discharge Instructions Date of Service Aug 04, 2017. Admission Reason for Admission: Nausea & Vomiting Discharge Discharge Diagnosis / Problem: GENERALIZED WEAKNESS, ACUTE BRONCHITIS, HYPOTHYROIDISM Discharge Goals Goal(s): Decrease discomfort, Improve function, Improve disease control Activity Recommendations Activity Limitations: resume your previous activity ( TOLERATED) . Instructions / Follow-Up Instructions / Follow-Up follow up with dr Coffey (Dr. Hart colleague) on 08/12 @ 11:00 Complete the course of the antibiotic Fall precaution Use walker to ambulate (Script given to gearcase assembler for the walker) Continue peg tube feeding Current Hospital Diet Patient's current hospital diet: Discharge Diet Recommended Diet: N/A (peg feeding) Pending Studies Studies pending at discharge: no Laboratory Results Lipid Panel Test 05/19/17 07:03 Range/Units Triglycerides Level 74 0-150 mg/dl Cholesterol Level 134 0-200 mg/dl HDL Cholesterol 54 mg/dl Cholesterol/HDL Ratio 2.5 LDL Cholesterol, Calculated 65 mg/dl Medical Emergencies . Who to Call and When: Medical Emergencies: If at any time you feel your situation is an emergency, please call 911 immediately. . Non-Emergent Contact Non-Emergency issues call your: Primary Care Provider Call Non-Emergent contact if: you have any medication questions . . "Provider Documentation" section prepared by Sol Duvall. . VTE Core Measure Inpt VTE Proph given/why not?: SCD's, Contraindicated
[2017-08-04] MEDS ORDERED: CEFU1TAB35 PEG (13:15)
[2017-08-04] MEDS ORDERED: GUAI1TAB7 PEG (13:15)
[2017-08-04 13:21] VITALS: BP 138/82; PULSE 81; TEMP 37.2; O2SAT 95
[2017-08-04] MEDS ORDERED: CEFD300C3 PEG (13:21)
[2017-08-04] MEDS ORDERED: CEFDINIR 300 MG CAP PO SCH ×2 (13:30→21:00)
--- NOTE | 2017-08-04 18:07 | Discharge Summary ---
Discharge Summary Date of Service Aug 04, 2017. Discharge Summary Admission Date: Aug 02, 2017 at 17:59 Discharge Date: Aug 04, 2017 Discharge Disposition: Home with services Principal Diagnosis: GENERALIZED WEAKNESS Secondary Diagnoses/Problems: NAUSEA/VOMITING ACUTE BRONCHITIS RASH ON THE HANDS/FOREARM COPD ANXIETY/DEPRESSION Procedures: CHEST 2 VIEWS ROUTINE HISTORY: EVALUATE RESPIRATORY DISTRESS.DYSPNEA COMPARISON: Chest 08/01/2017. FINDINGS: Left basilar linear densities have slightly improved. This suggests resolving atelectasis. Mild emphysema. No new focal lung consolidations to suggest pneumonia. No evidence for pulmonary edema. No pleural effusions. No pneumothorax. The heart is normal in size. IMPRESSION: 1. Improvement in the left basilar linear densities suggesting resolving atelectasis. No new focal lung consolidations. 2. Emphysema. Electronically signed by: Rylan Archuleta M.D. 08/01/2017 3:32 PM Dictated Date/Time: 08/01/2017 3:29 PM Medication Reconciliation New Medications: Guaifenesin (Guaifenesin) 200 Mg Tab 1 TAB PEG Q8H PRN for Cough for 5 Days Cefdinir (Cefdinir) 300 Mg Cap 300 MG PEG BID for 5 Days, #10 CAP Triamcinolone Acet (Triamcinolone Acetonide) 45 Appln/15 Gm Oint 1 APPLN EXT BID for 30 Days apply to affected area Continued Medications: Albuterol Hfa (Ventolin Hfa) 200 Puffs/90021 Mcg Aers 2 PUFF INH Q4 PRN for wheezing, #1 INHALER Citalopram Hydrobromide (Citalopram Hydrobromide) 20 Mg Tab 10 MG PEG QAM, 3 Refills Enteral Nutrition Formula (Boost Plus) 1 Can Liqd 2 CAN PEG TID for 7 Days Fludrocortisone Acetate (Florinef) 0.1 Mg Tab 0.1 MG PEG DAILY, TAB Fluticasone Propionate (Inhala (Flovent Diskus) 100 Mcg/Blist Aer 1 PUFFS INH BID PRN for SOB/Wheezing, #1 INHALER 5 Refills Ipratropium-Albuterol (Duoneb) 3 Ml Nebu 1 TREATMENT INH Q4H PRN for SOB/Wheezing, INHA Levothyroxine Sodium (Synthroid) 100 Mcg Tab 100 MCG PEG QAM Lorazepam (Ativan) 0.5 Mg Tab 0.5 MG PEG DAILY PRN for Anxiety, TAB Umeclidinium-Vilanterol (Anoro Ellipta 62.5-25 Mcg/INH) 1 Aer Aer 1 PUFF INH DAILY Admission Information HPI (per Admitting provider): 72 yo M who is chronically NPO 2/2 high aspiration risk presents to the ER with fevers, chills, shortness of breath, and nausea and vomiting that has persisted overnight. Other symptoms than his vomiting have been ongoing now for the past week. He was seen in the ER overnight and was able to go home after some IVF and Zofran, however, when he got home he became worse and was too weak to stand , asking his to call the ambulance. She has recently been ill with exactly the same symptoms and reports that she had a sinus infection. Specifically, he is also reporting a productive cough, some blood present in his spitup in the setting of daily nosebleeds (not on blood thinners or daily aspirin), some headaches, and chronic joint pain that is same as baseline and related to his arthritis. He denies abdominal pain, diarrhea, blood in his stool or constipation. He was recently admitted to the hospital in May 2017 for treatment of an aspiration pneumonia, and reports to me today that he felt that he aspirated some of the excessive mucous that he has been having lately. He also reports a pruritic rash that is erythematous and slightly raised on his dorsal R hand and extensor surface of his R forearm. He has been putting moisturizer on it at home. He has a PEG tube in place and for the last 7 years has subsisted off of 8 cans of Boost Plus daily. He reports that he feels bloated after trying only one can, and his interjected that he has only been able to get 4 cans in him daily and she is concerned that he will start losing weight soon. She denies having a GI provider or ever having seen [facility] in [place]. Physical Exam (per Admitting): General Appearance: WD/WN, no apparent distress Head: normocephalic, atraumatic Eyes: normal inspection, PERRL, sclerae normal, + pertinent finding (clear sequelae of prior neck dissection surgery) ENT: hearing grossly normal, + pharyngeal erythema, + pertinent finding ( erythema, and excoriations and excessive dryness on hard and soft palate. 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 ) Hospital Course GENERALIZED WEAKNESS Possible related to acute illness PT/OT Fall precaution use walker to ambulate Clinically improved NAUSEA/VOMITING CHRONIC PEG TUBE PLACEMENT Possible related to Peg tube malfunction Peg Tube changed Ok to use peg as per GI Resolved ACUTE BRONCHITIS CXR showed no pneumonia Urine cx and blood cx no growth Sputum cx positive for serratia Marcescens On unasyn, will change to cefuroxime 50mg BID cough improves RASH ON THE HANDS/FOREARM Trial of Kenalog Anxiety/Depression Will resume Celexa Continue Ativan PRN COPD Stable No signs of exacerbation at this time Hypothyroidism On IV Synthroid Will change to PO Hypotension BP stable DVT px on SCDs Full Code Disposition Will discharge home today Script given for rolling walker Follow up with Dr. Coffey (Dr. Hart) on 08/12 @ 11:00 am Total time spent on discharge = 35 minutes This includes examination of the patient, discharge planning, medication reconciliation, and communication with other providers. Discharge Instructions Discharge Instructions Date of Service Aug 04, 2017. Admission Reason for Admission: Nausea & Vomiting Discharge Discharge Diagnosis / Problem: GENERALIZED WEAKNESS, ACUTE BRONCHITIS, HYPOTHYROIDISM Discharge Goals Goal(s): Decrease discomfort, Improve function, Improve disease control Activity Recommendations Activity Limitations: resume your previous activity ( TOLERATED) . Instructions / Follow-Up Instructions / Follow-Up follow up with dr Coffey (Dr. Hart colleague) on 08/12 @ 11:00 Complete the course of the antibiotic Fall precaution Use walker to ambulate (Script given to trimming caser for the walker) Continue peg tube feeding Current Hospital Diet Patient's current hospital diet: Discharge Diet Recommended Diet: N/A (peg feeding) Pending Studies Studies pending at discharge: no Laboratory Results Lipid Panel Test 05/19/17 07:03 Range/Units Triglycerides Level 74 0-150 mg/dl Cholesterol Level 134 0-200 mg/dl HDL Cholesterol 54 mg/dl Cholesterol/HDL Ratio 2.5 LDL Cholesterol, Calculated 65 mg/dl Medical Emergencies . Who to Call and When: Medical Emergencies: If at any time you feel your situation is an emergency, please call 911 immediately. . Non-Emergent Contact Non-Emergency issues call your: Primary Care Provider Call Non-Emergent contact if: you have any medication questions . . "Provider Documentation" section prepared by Sol Duvall. . VTE Core Measure Inpt VTE Proph given/why not?: SCD's, Contraindicated Signed: Signed: The status of this report is Draft * If report status is Draft, the document has not been finalized by the responsible provider. Additional Copies To Sanjiv Hart III, M.D. Keiter, Carey K.,DO
== END 2017-08-04 13:33 | disposition home or self-care (01) | DRG 191 ==
LOC: C.EDB 12:42 → C.2T 17:20 → EDBEDREQ 17:25 → ENRESERV 17:34 → OBSVTOIN 08-02 17:59
PROVIDERS: ADMIT Hospitalist; ATTEND Internal Medicine
DX: J44.0 Chronic obstructive pulmonary disease with (acute) lower respiratory infection (principal); J20.9 Acute bronchitis, unspecified; B37.0 Candidal stomatitis; K94.23 Gastrostomy malfunction; J01.90 Acute sinusitis, unspecified; K21.9 Gastro-esophageal reflux disease without esophagitis; N40.0 Benign prostatic hyperplasia without lower urinary tract symptoms; K31.84 Gastroparesis; E86.0 Dehydration; K29.70 Gastritis, unspecified, without bleeding; E78.5 Hyperlipidemia, unspecified; I95.2 Hypotension due to drugs; R21 Rash and other nonspecific skin eruption; Z85.89 Personal history of malignant neoplasm of other organs and systems; Z87.891 Personal history of nicotine dependence; Y83.1 Surgical operation with implant of artificial internal device as the cause of abnormal reaction of the patient, or of later complication, without mention of misadventure at the time of the procedure; Y92.019 Unspecified place in single-family (private) house as the place of occurrence of the external cause; B96.89 Other specified bacterial agents as the cause of diseases classified elsewhere

== ENCOUNTER 2020-02-06 20:57 | Observation (INO) ==
[2020-02-06] MEDS ORDERED: NITROGLYCERIN 2% OINTMENT 30GM TUBE EXT STA (21:44)
--- NOTE | 2020-02-06 21:51 | Emergency Department Note ---
History of Present Illness General Chief complaint: Asthma Stated complaint: ASTHMA - SOB Time Seen by Provider: 02/06/20 21:37 Source: patient History of Present Illness Provider complaint: Chest pain Onset (ago): minute(s) Location: chest Radiation: extremity (Left upper) Severity: mild Pain Consistency: + constant Maximum Pain Intensity: 5 Quality: + other (Heaviness) Relieved By: + none Associated symptoms: + cough (Mild coughing after feed refluxed) and + shortness of breath; no fever/chills This is a 74-year-old male who presents with shortness of breath starting this afternoon. While in the emergency department he developed chest discomfort. He describes it as a heaviness in the middle of his chest rating to his left upper extremity. No alleviating factors. He states he also has some heartburn associated with this. He also is short of breath. He denies having any fevers or cough but stated that he did start coughing after he had reflux of his feed tonight. He denies any leg swelling or pain, abdominal pain or history of heart disease. His states that he is not allergic to nitroglycerin but it did drop his pressure when he was given to sublinguals consecutively. Home Medications Home Medications Medication Instructions Recorded Confirmed Type Nutritional Drink 2 can FEEDING TUBE QID 05/07/18 02/06/20 History citalopram 20 mg FEEDING TUBE QAM 05/07/18 02/06/20 History fludrocortisone 0.1 mg FEEDING TUBE TID PRN 05/07/18 02/06/20 History ipratropium-albuterol 3 ml INHALATION Q4 PRN 05/07/18 02/06/20 History levothyroxine 100 mcg FEEDING TUBE QAM 05/07/18 02/06/20 History lorazepam 0.5 mg FEEDING TUBE DAILY PRN 05/07/18 02/06/20 History latanoprost 1 drp OPB HS 01/30/19 02/06/20 History ondansetron HCl [Zofran] 8 mg PO TID PRN 03/28/19 02/06/20 History albuterol sulfate 2.5 mg INH Q6H PRN #75 ml 06/07/19 02/06/20 Rx Allergies Allergy/AdvReac Type Severity Reaction Status Date / Time Nitrate Analogues Allergy Severe DROP IN BP Verified 02/06/20 22:26 sulfamethoxazole Allergy Intermediate ITCHING Verified 02/06/20 22:26 trimethoprim Allergy Intermediate ITCHING Verified 02/06/20 22:26 levofloxacin Allergy Mild rash all Verified 02/06/20 22:26 over body sertraline Allergy Mild NOSE BLEEDS Verified 02/06/20 22:26 terazosin Allergy Unknown DOES NOT Verified 02/06/20 22:26 KNOW Past Med/Surg History Medical History Anxiety Aspiration pneumonia CAN NOT TAKE FOOD/LIQUIDS ORALLY Asthma Benign prostatic hyperplasia (Unknown) Chronic back pain COPD (chronic obstructive pulmonary disease) with emphysema Degenerative disc disease Depression Gastroparesis GERD (gastroesophageal reflux disease) Glaucoma Hypothyroidism Orthostatic hypotension Osteoarthritis Tonsil carcinoma (Unknown) RADIATION AND CHEMO Uses feeding tube Surgical History H/O esophagogastroduodenoscopy (Unknown) WITH PLACEMENT PEG TUBE History of anesthesia reaction SLOW TO WAKE UP History of neck surgery LUMPECTOMY History of tooth extraction S/P arthroscopic knee surgery (Unknown) RT S/P colonoscopy (Unknown) Family History Brother Family history of diabetes mellitus Social History Smoking Status: Former smoker Second Hand Exposure: No; Hx Alcohol Use: No Hx Substance Use: No Preferred Language: Amharic 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 Ability: Impaired [employer] Required: No Beliefs That Will Affect Care: None marital status: Current Living Situation: Spouse Feels Safe at Home: Yes Review of Systems See HPI for pertinent positives & negatives. and A total of 10 systems reviewed and were otherwise negative Physical Exam Vital Signs Vital Signs - 24 hr 02/06/20 20:57 02/06/20 21:03 02/06/20 21:38 Temperature 37.3 C Temperature Source Oral Pulse Rate 91 H 71 Pulse Rate [Right Finger] Pulse Rate from SpO2 Sensor Respiratory Rate 20 19 Respiratory Effort / Characteristics Non-Labored Spontaneous Respiratory Depth Normal Respiratory Pattern Regular Blood Pressure 133/64 180/99 H Blood Pressure Mean 87 129 Pulse Oximetry 96 91 94 Oxygen Delivery Method Room Air Room Air Sepsis Recent Fever Within 48 Hours No Sepsis New/Unexplained Change in Mental Status No Sepsis Action Taken by Nursing No Action Required 02/06/20 22:00 02/06/20 22:42 Temperature Temperature Source Pulse Rate 71 Pulse Rate [Right Finger] 74 Pulse Rate from SpO2 Sensor 71 Respiratory Rate 19 18 Respiratory Effort / Characteristics Non-Labored Spontaneous Respiratory Depth Respiratory Pattern Blood Pressure 169/95 H Blood Pressure Mean 117 Pulse Oximetry 97 97 Oxygen Delivery Method Room Air Sepsis Recent Fever Within 48 Hours Sepsis New/Unexplained Change in Mental Status Sepsis Action Taken by Nursing Constitutional: Vital signs reviewed. Eyes: Pupils are equal round reactive to light. Conjunctiva are noninjected. ENT: Pharynx is clear without erythema or exudate. Mucous membranes are moist. Neck supple without meningeal signs. Respiratory: Clear to auscultation bilaterally. Breath sounds are equal bilaterally. Cardiovascular: Regular rate and rhythm. No rubs or gallops. GI: Soft, nondistended and nontender. Bowel sounds are present. Musculoskeletal: No peripheral edema. No lower extremity tenderness. Integumentary: No cyanosis. or jaundice. Neurological: The patient is awake and alert. No focal deficits. Psychiatric: Normal affect. Not anxious appearing. Course Administered Medications Discontinued Medications Al Hydrox/Mg Hydrox/Simethicone () 1 dose PO ONE ONE Stop: 02/06/20 22:21 Last Admin: 02/06/20 22:24 Dose: Not Given Documented by: [id number] Albuterol (Duoneb) 3 ml NEB NOW STA Stop: 02/06/20 22:21 Last Admin: 02/06/20 22:41 Dose: 3 ml Documented by: [id number] Famotidine (Pepcid 20mg Iv Push) 20 mg IV ONE STA Stop: 02/06/20 22:26 Last Admin: 02/06/20 22:59 Dose: 20 mg Documented by: [id number] Nitroglycerin (Nitro-Bid 2%) 0.25 inch EXT NOW STA Stop: 02/06/20 21:45 Last Admin: 02/06/20 21:56 Dose: 0.25 inch Documented by: [id number] Medical Decision Making Differential Diagnosis Unstable angina, IL, GERD, esophagitis, pneumonia Medical Records Attestation: I reviewed the patient's medical records. I did perform a limited focused review of portions of the patient's old chart on the electronic medical record. The patient has had no recent pertinent visits to this hospital. Home Medications Current Medication List: was personally reviewed by me Laboratory Data Attestation: I reviewed the patient's lab results. Result diagrams: 02/06/20 21:49 02/06/20 21:49 Lab Results 02/06/20 02/06/20 02/06/20 Range/Units 21:49 21:49 21:49 WBC 7.81 (4.8-10.8) K/uL RBC 4.77 (4.7-6.1) M/uL Hgb 15.9 (14.0-18.0) g/dL Hct 47.3 (42-52) % MCV 99.2 (80-100) fL MCH 33.3 (25-34) pg MCHC 33.6 (32-36) g/dL RDW Std Deviation 46.4 H (36.4-46.3) fL RDW Coeff of Judy 12.8 (11.5-14.5) % Plt Count 162 (130-400) K/uL MPV 11.2 H (7.4-10.4) fL Immature Gran % (Auto) 0.3 % Neut % (Auto) 75.1 % Lymph % (Auto) 13.1 % [place] % (Auto) 9.5 % Eos % (Auto) 1.7 % Baso % (Auto) 0.3 % Neut # (Auto) 5.88 (1.4-6.5) K/uL Lymph # (Auto) 1.02 L (1.2-3.4) K/uL [place] # (Auto) 0.74 H (0.11-0.59) K/uL Eos # (Auto) 0.13 (0-0.5) K/uL Baso # (Auto) 0.02 (0-0.2) K/uL Immature Gran # (Auto) 0.02 (0.00-0.02) K/uL PT 11.4 (9.0-12.0) Seconds INR 1.1 (0.9-1.1) APTT 25.4 (21.0-31.0) Seconds PTT Ratio 0.9 Sodium 140 (136-145) mmol/L Potassium 3.8 (3.5-5.1) mmol/L Chloride 104 (98-107) mmol/L Carbon Dioxide 32 (21-32) mmol/L Anion Gap 4.0 (3-11) BUN 19 H (7-18) mg/dl Creatinine 1.10 (0.6-1.4) mg/dl Est Cr Clr Drug Dosing 63.6 ml/min Est GFR ( Amer) 77.3 Est GFR (Non-Af Amer) 66.7 BUN/Creatinine Ratio 17.4 (10-20) Glucose 78 (70-99) mg/dl Calcium 9.4 (8.5-10.1) mg/dl Total Bilirubin 0.6 (0.2-1) mg/dl AST 20 (15-37) U/L ALT 27 (12-78) U/L Alkaline Phosphatase 79 (45-117) U/L Troponin I < 0.015 (0-0.045) ng/ml Total Protein 7.9 (6.4-8.2) gm/dl Albumin 3.6 (3.4-5.0) gm/dl Globulin 4.3 H (2.5-4.0) gm/dl Albumin/Globulin Ratio 0.8 L (0.9-2) Lipase 113 (73-393) U/L Imaging Data Attestation: I personally reviewed and interpreted this imaging study as follows: My Impression: Chest x-ray per my interpretation shows no acute cardiopulmonary process. ECG Data Attestation: I personally reviewed and interpreted this ECG as follows: Indication: + chest pain Rate (beats per minute): 74 Rhythm: + normal sinus ECG Intervals/blocks: + Normal QRS; no Left bundle branch block ECG Villalba: + Left axis deviation ECG ST segments: no ST elevation ECG Findings: no PVCs Blood Pressure Blood Pressure Findings: Elevated blood pressure Blood Pressure Disposition: Referred to patients primary care provider [facility] Narrative I did evaluate the patient as noted above. IV access was established. I did place an order for continuous cardiac monitoring. The monitor showed normal sinus rhythm with a rate of 73. I did order and personally review the patient's 12-lead EKG as described above. He has no acute ischemic changes. After discussion with the patient and his he was given nitroglycerin paste the quarter inch to the anterior chest wall. He was given Pepcid 20 mg IV for his heartburn. He was also given a DuoNeb. He was not wheezing but he stated that he felt it might make him feel better. I did order and personally reviewed the images of the patient's chest x-ray as described above. Chest x-ray is unremarkable. I did order and review the patient's blood work as noted in the electronic medical record. CBC is unremarkable. There is no leukocytosis or anemia. Electrolytes are unremarkable. Troponin is negative. I did reassess the patient. He is feeling better at this time. He no longer has any chest heaviness. He still has heartburn. I did discuss the test results with him and his . I did recommend hospitalization. I did discuss the case with the hospitalist and family preservation caseworker. Impression & Plan Acute chest pain Discharge Plan Visit Data Chief Complaint: Asthma Stated Complaint: ASTHMA - SOB ED Provider: Khadar Pleitez Discharge Problem: Acute chest pain Patient Disposition: Being Evaluated by Hospitalist Forms Stand Alone Forms: My [facility] Prescriptions Prescriptions: No Action latanoprost 0.005 % Drops 1 drp OPB HS RF: 0 ondansetron HCl [Zofran] 8 mg Tablet 8 mg PO TID PRN (Reason: Nausea) RF: 0 albuterol sulfate 2.5 mg /3 mL (0.083 %) solution for nebulization 2.5 mg INH Q6H PRN (Reason: shortness of breath or wheezing) Qty: 75 RF: 0 ipratropium-albuterol 0.5 mg-3 mg(2.5 mg base)/3 mL Solution For Nebulization 3 ml INHALATION Q4 PRN (Reason: Shortness Of Breath Or Wheezing) RF: 0 levothyroxine 100 mcg tablet 100 mcg Feeding Tube QAM RF: 0 citalopram 20 mg tablet 20 mg Feeding Tube QAM RF: 0 lorazepam 0.5 mg tablet 0.5 mg Feeding Tube DAILY PRN (Reason: Anxiety) RF: 0 fludrocortisone 0.1 mg Tablet 0.1 mg Feeding Tube TID PRN (Reason: Hypotension) RF: 0 Nutritional Drink Liquid 2 can Feeding Tube QID RF: 0 Referrals Referrals: Sanjiv Hart MD [Primary Care Provider] -
[2020-02-06] MEDS ORDERED: GI COCKTAIL ED USE PO ONE (22:20)
[2020-02-06] MEDS ORDERED: ALBUT/IPRATROP 3MG/0.5MG NEB 3 ML VIAL NEB STA (22:20)
[2020-02-06] MEDS ORDERED: FAMOTIDINE 20MG/5ML IV PUSH IV STA (22:25)
[2020-02-06 22:27] LABS: Basophils # (auto) 0.02 K/uL (0-0.2); Basophils % (auto) 0.3 %; Eosinophils # (auto) 0.13 K/uL (0-0.5); Eosinophils % (auto) 1.7 %; Hematocrit (blood only) 47.3 % (42-52); Hemoglobin 15.9 g/dL (14.0-18.0); Immature Granulocytes # (auto) 0.02 K/uL (0.00-0.02); Immature Granulocytes % (auto) 0.3 %; Lymphocytes # (auto) 1.02 K/uL (1.2-3.4); Lymphocytes % (auto) 13.1 %; Mean Corpuscular Hemoglobin 33.3 pg (25-34); Mean Corpuscular Hgb Conc 33.6 g/dL (32-36); Mean Corpuscular Volume 99.2 fL (80-100); Mean Platelet Volume 11.2 fL (7.4-10.4); Monocytes # (auto) 0.74 K/uL (0.11-0.59); Monocytes % (auto) 9.5 %; Neutrophils # (auto) 5.88 K/uL (1.4-6.5); Neutrophils % (auto) 75.1 %; Platelet Count 162 K/uL (130-400); RDW Coefficient of Variation 12.8 % (11.5-14.5); RDW Standard Deviation 46.4 fL (36.4-46.3); Red Blood Count 4.77 M/uL (4.7-6.1); White Blood Count 7.81 K/uL (4.8-10.8)
[2020-02-06 22:39] LABS: INR 1.1 (0.9-1.1); Partial Thromboplastin Ratio 0.9; Partial Thromboplastin Time 25.4 Seconds (21.0-31.0); Prothrombin Time 11.4 Seconds (9.0-12.0)
[2020-02-06 22:43] LABS: Albumin Level 3.6 gm/dl (3.4-5.0); BUN Creatinine Ratio 17.4 (10-20); Blood Urea Nitrogen 19 mg/dl (7-18); Calcium 9.4 mg/dl (8.5-10.1); Carbon Dioxide 32 mmol/L (21-32); Chloride 104 mmol/L (98-107); Creatinine Clr Calc Pharmacy 63.6 ml/min; Est GFR (African American) 77.3; Est GFR (Non-African American) 66.7; Glucose 78 mg/dl (70-99); Lipase 113 U/L (73-393); Potassium 3.8 mmol/L (3.5-5.1); Sodium 140 mmol/L (136-145)
[2020-02-06 22:48] LABS: Alanine Aminotransferase 27 U/L (12-78); Albumin Globulin Ratio 0.8 (0.9-2); Alkaline Phosphatase 79 U/L (45-117); Aspartate Aminotransferase 20 U/L (15-37); Bilirubin,Total 0.6 mg/dl (0.2-1); Globulin 4.3 gm/dl (2.5-4.0); Total Protein 7.9 gm/dl (6.4-8.2); Troponin I < 0.015 ng/ml (0-0.045)
[2020-02-06] MEDS ORDERED: ACETAMINOPHEN 1,000 MG/100 ML VIAL IV STA (23:52)
[2020-02-07] MEDS ORDERED: OPTIRAY 320 125ml IV PRN (00:20)
[2020-02-07] MEDS ORDERED: ASPIRIN 325 MG ECTAB PO STA (00:54)
--- NOTE | 2020-02-07 00:57 | History & Physical Report ---
Date of Service February 07, 2020 Assessment & Plan (1) Chest pain: Possibly from transient BP elevation/anxiety/ tube feed reflux (known aspiration risk sp PEG tube placement) Rule out ACS given patient risk factors and relief with nitroglycerin. hx tonsillar cancer status post chemoradiation/neck dissection, COPD, not in acute exacerbation orthostatic hypotension on fludrocortisone hypothyroidism. euthyroid as of recent outpatient TSH Pulmonary nodules on CT Past tobacco abuse OBS PCU DC Nitropaste given headache Follow troponin DSE if a.m. troponin within normal limits Aspirin for CAD prevention until ACS ruled out Follow official CT chest read regarding pulmonary nodules, outpatient serial follow-up imaging following Fleischner criteria DVT prophylaxis per Lovenox subcu Full code Patient's requesting updates providers. Ms. Dalila Canseco, contact #[phone] 09/23 [phone]. Text document was generated using [employer] voice recognition software. It may contain grammatical or spelling errors. Kindly contact undersigned for clarification of any documentation item in question. History of Present Illness Chief Complaint: Headache, shortness of breath as per Primary Care Provider: Sanjiv Hart MD History obtained from patient, family, and records. Limited history from patient secondary to marked hearing impairment. Medical history is significant for tonsillar cancer status post chemoradiation/neck dissection, COPD, past tobacco abuse, orthostatic hypotension on fludrocortisone, known aspiration risk sp PEG tube placement, gastroparesis, hx MRSA as per records, hypothyroidism. Last confinement July 2017 for acute gastroenteritis. Yesterday, patient noted shortness of breath symptoms without chest pain. Cough symptoms with tube feed reflux as per . Achy headache symptoms. SBP 180s upon arrival at the ER. GI cocktail given at the ER. At the ER, patient experienced chest heaviness going to the left arm relieved by Nitropaste. Headache worse with Nitropaste. MEDICAL HISTORY: As above. SURGERIES: He has had neck/reconstruction surgery, lymph node dissection, knee surgery, dental surgery. FAMILY HISTORY: Diabetes, heart disease, COPD PERSONAL AND SOCIAL HISTORY: Past tobacco abuse. 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 Allergies Allergy/AdvReac Type Severity Reaction Status Date / Time Nitrate Analogues Allergy Severe DROP IN BP Verified 02/06/20 22:26 sulfamethoxazole Allergy Intermediate ITCHING Verified 02/06/20 22:26 trimethoprim Allergy Intermediate ITCHING Verified 02/06/20 22:26 levofloxacin Allergy Mild rash all Verified 02/06/20 22:26 over body sertraline Allergy Mild NOSE BLEEDS Verified 02/06/20 22:26 terazosin Allergy Unknown DOES NOT Verified 02/06/20 22:26 KNOW Home Medications Home Medications Medication Instructions Recorded Confirmed Type Nutritional Drink 2 can FEEDING TUBE QID 05/07/18 02/06/20 History citalopram 20 mg FEEDING TUBE QAM 05/07/18 02/06/20 History fludrocortisone 0.1 mg FEEDING TUBE TID PRN 05/07/18 02/06/20 History ipratropium-albuterol 3 ml INHALATION Q4 PRN 05/07/18 02/06/20 History levothyroxine 100 mcg FEEDING TUBE QAM 05/07/18 02/06/20 History lorazepam 0.5 mg FEEDING TUBE DAILY PRN 05/07/18 02/06/20 History latanoprost 1 drp OPB HS 01/30/19 02/06/20 History ondansetron HCl [Zofran] 8 mg PO TID PRN 03/28/19 02/06/20 History albuterol sulfate 2.5 mg INH Q6H PRN #75 ml 06/07/19 02/06/20 Rx Past Med/Surg History Medical History Anxiety Aspiration pneumonia CAN NOT TAKE FOOD/LIQUIDS ORALLY Asthma Benign prostatic hyperplasia (Unknown) Chronic back pain COPD (chronic obstructive pulmonary disease) with emphysema Degenerative disc disease Depression Gastroparesis GERD (gastroesophageal reflux disease) Glaucoma Hypothyroidism Orthostatic hypotension Osteoarthritis Tonsil carcinoma (Unknown) RADIATION AND CHEMO Uses feeding tube Surgical History H/O esophagogastroduodenoscopy (Unknown) WITH PLACEMENT PEG TUBE History of anesthesia reaction SLOW TO WAKE UP History of neck surgery LUMPECTOMY History of tooth extraction S/P arthroscopic knee surgery (Unknown) RT S/P colonoscopy (Unknown) Family History Brother Family history of diabetes mellitus Social History Smoking Status: Unknown if ever smoked Second Hand Exposure: No; Hx Alcohol Use: No Hx Substance Use: No Preferred Language: Barbadian 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 Ability: Effective 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 Beliefs That Will Affect Care: None marital status: Current Living Situation: Spouse Feels Safe at Home: Yes Safety Concerns: Feels Safe At This Time Review of Systems Review of Systems: Could not be reliably obtained Physical Exam Physical Exam: GENERAL: Comfortable, dysarthric (chronic), hard of hearing, pleasant, obese, no respiratory distress SKIN: Normal color, warm HEENT: [place] palpebral conjunctivae, no ptosis, chronic facial asymmetry, dry buccal mucosa NECK : Supple, no tenderness CHEST : Decreased breath sounds, no tenderness HEART : RRR, no obvious murmurs ABDOMEN: distention, PEG tube in place, nontender EXTREMITIES : Minimal LE swelling, no LE tenderness, no other conspicuous d eformities noted NEUROLOGIC : Coherent, chronic facial asymmetry, chronic dysarthria, no other gross focality Results & Data Results & Data ([facility]) Vital Signs (Past 12 Hours) Vital Signs Temp Pulse Pulse Resp BP Pulse Ox 02/06/20 22:42 74 18 97 02/06/20 22:00 71 19 169/95 H 97 02/06/20 21:38 71 19 180/99 H 94 02/06/20 21:03 37.3 C 91 H 20 133/64 91 02/06/20 20:57 96 Laboratory Results Laboratory Results WBC 7.81 K/uL (4.8-10.8) 02/06/20 21:49 RBC 4.77 M/uL (4.7-6.1) 02/06/20 21:49 Hgb 15.9 g/dL (14.0-18.0) 02/06/20 21:49 Hct 47.3 % (42-52) 02/06/20 21:49 MCV 99.2 fL (80-100) 02/06/20 21:49 MCH 33.3 pg (25-34) 02/06/20 21:49 MCHC 33.6 g/dL (32-36) 02/06/20 21:49 RDW Std Deviation 46.4 fL (36.4-46.3) H 02/06/20 21:49 RDW Coeff of Judy 12.8 % (11.5-14.5) 02/06/20 21:49 Plt Count 162 K/uL (130-400) 02/06/20 21:49 MPV 11.2 fL (7.4-10.4) H 02/06/20 21:49 Immature Gran % (Auto) 0.3 % 02/06/20 21:49 Neut % (Auto) 75.1 % 02/06/20 21:49 Lymph % (Auto) 13.1 % 02/06/20 21:49 Warren % (Auto) 9.5 % 02/06/20 21:49 Eos % (Auto) 1.7 % 02/06/20 21:49 Baso % (Auto) 0.3 % 02/06/20 21:49 Neut # (Auto) 5.88 K/uL (1.4-6.5) 02/06/20 21:49 Lymph # (Auto) 1.02 K/uL (1.2-3.4) L 02/06/20 21:49 Warren # (Auto) 0.74 K/uL (0.11-0.59) H 02/06/20 21:49 Eos # (Auto) 0.13 K/uL (0-0.5) 02/06/20 21:49 Baso # (Auto) 0.02 K/uL (0-0.2) 02/06/20 21:49 Immature Gran # (Auto) 0.02 K/uL (0.00-0.02) 02/06/20 21:49 PT 11.4 Seconds (9.0-12.0) 02/06/20 21:49 INR 1.1 (0.9-1.1) 02/06/20 21:49 APTT 25.4 Seconds (21.0-31.0) 02/06/20 21:49 PTT Ratio 0.9 02/06/20 21:49 Sodium 140 mmol/L (136-145) 02/06/20 21:49 Potassium 3.8 mmol/L (3.5-5.1) 02/06/20 21:49 Chloride 104 mmol/L (98-107) 02/06/20 21:49 Carbon Dioxide 32 mmol/L (21-32) 02/06/20 21:49 Anion Gap 4.0 (3-11) 02/06/20 21:49 BUN 19 mg/dl (7-18) H 02/06/20 21:49 Creatinine 1.10 mg/dl (0.6-1.4) 02/06/20 21:49 Est Cr Clr Drug Dosing 63.6 ml/min 02/06/20 21:49 Est GFR ( Amer) 77.3 02/06/20 21:49 Est GFR (Non-Af Amer) 66.7 02/06/20 21:49 BUN/Creatinine Ratio 17.4 (10-20) 02/06/20 21:49 Glucose 78 mg/dl (70-99) 02/06/20 21:49 Calcium 9.4 mg/dl (8.5-10.1) 02/06/20 21:49 Total Bilirubin 0.6 mg/dl (0.2-1) 02/06/20 21:49 AST 20 U/L (15-37) 02/06/20 21:49 ALT 27 U/L (12-78) 02/06/20 21:49 Alkaline Phosphatase 79 U/L (45-117) 02/06/20 21:49 Troponin I ng/ml (0-0.045) 02/06/20 23:37 Total Protein 7.9 gm/dl (6.4-8.2) 02/06/20 21:49 Albumin 3.6 gm/dl (3.4-5.0) 02/06/20 21:49 Globulin 4.3 gm/dl (2.5-4.0) H 02/06/20 21:49 Albumin/Globulin Ratio 0.8 (0.9-2) L 02/06/20 21:49 Lipase 113 U/L (73-393) 02/06/20 21:[address] head initial read: No acute intracranial pathology CT chest initial read: No evidence of pulmonary emboli. Mildly prominent mediastinal lymph nodes. 2 5 mm nodules right lower lobe. EKG as per my interpretation: Rate 75, LAD, LAFB, no ischemia Code Status & VTE Plan VTE Prophylaxis Plan VTE Prophylaxis will be ordered: Yes
[2020-02-07] MEDS ORDERED: ASPIRIN 300 MG SUPP PR STA (01:10)
[2020-02-07] MEDS ORDERED: D5W AND LACTATED RINGERS 1,000 ML IV SCH (01:21)
[2020-02-07] MEDS ORDERED: PROMETHAZINE HCL 12.5 MG in SODIUM CHLORIDE 0.9% 50 ML IV PRN (01:21)
[2020-02-07] MEDS ORDERED: ACETAMINOPHEN 1,000 MG/100 ML VIAL IV PRN (01:21)
[2020-02-07] MEDS ORDERED: MoRPHine SULFATE 2 MG/ML CARP IV PRN (01:37)
[2020-02-07] MEDS ORDERED: LORazepam 0.25 MG/0.5 ML VIAL IV PRN (05:47)
[2020-02-07 06:08] LABS: Basophils # (auto) 0.02 K/uL (0-0.2); Basophils % (auto) 0.2 %; Eosinophils # (auto) 0.17 K/uL (0-0.5); Eosinophils % (auto) 1.6 %; Hematocrit (blood only) 41.1 % (42-52); Hemoglobin 13.9 g/dL (14.0-18.0); Immature Granulocytes # (auto) 0.02 K/uL (0.00-0.02); Immature Granulocytes % (auto) 0.2 %; Lymphocytes # (auto) 1.36 K/uL (1.2-3.4); Lymphocytes % (auto) 13.1 %; Mean Corpuscular Hemoglobin 33.7 pg (25-34); Mean Corpuscular Hgb Conc 33.8 g/dL (32-36); Mean Corpuscular Volume 99.5 fL (80-100); Monocytes # (auto) 1.14 K/uL (0.11-0.59); Neutrophils % (auto) 73.9 %; Platelet Count 147 K/uL (130-400); RDW Coefficient of Variation 12.8 % (11.5-14.5); RDW Standard Deviation 46.2 fL (36.4-46.3); Red Blood Count 4.13 M/uL (4.7-6.1); White Blood Count 10.41 K/uL (4.8-10.8)
[2020-02-07] MEDS ORDERED: LEVOTHYROXINE SODIUM 100 MCG TABLET GT SCH (06:30)
[2020-02-07 06:45] LABS: BUN Creatinine Ratio 17.7 (10-20); Blood Urea Nitrogen 20 mg/dl (7-18); Calcium 8.6 mg/dl (8.5-10.1); Carbon Dioxide 32 mmol/L (21-32); Chloride 105 mmol/L (98-107); Cholesterol 121 mg/dl (0-200); Creatinine Clr Calc Pharmacy 62.8 ml/min; Est GFR (African American) 76.5; Glucose 108 mg/dl (70-99); Potassium 3.7 mmol/L (3.5-5.1); Sodium 138 mmol/L (136-145); Triglycerides 75 mg/dl (0-150); VLDL Cholesterol 15 mg/dl
[2020-02-07 06:50] LABS: Chol HDL Ratio 3; HDL Cholesterol 45 mg/dl; LDL Cholesterol Calculated 61 mg/dl; Troponin I < 0.015 ng/ml (0-0.045)
--- NOTE | 2020-02-07 07:15 | CT Scan Report ---
CT SCAN OF THE BRAIN WITHOUT IV CONTRAST CLINICAL HISTORY: Headache. COMPARISON STUDY: CT of the brain dated 09/15/2012. TECHNIQUE: Unenhanced axial CT scan of the brain is performed from the vertex to the skull base. A do se lowering technique was utilized adhering to the principles of ALARA. FINDINGS: Brain parenchyma: There are age-related involutional changes noting minimal subcortical and perivent ricular microangiopathic change. There is no hemorrhage, mass effect, or evidence of acute territoria l ischemia by CT criteria. Wan-white matter differentiation is preserved. No extra-axial fluid colle ction is seen. Ventricles, sulci, cisterns: Prominent secondary to involutional change. Intracranial vasculature: There is atherosclerotic calcification of the cavernous carotid arteries. Calvarium: Unremarkable. Sinuses and mastoids: The visualized paranasal sinuses are clear. The mastoid air cells are well pneu matized. Orbits: The bony orbits are grossly intact. IMPRESSION: There is no hemorrhage, mass effect, or evidence of acute territorial ischemia by CT zabrina lopez. ACT 112: Negative or not required by law. Electronically signed by: Landen Hopkins M.D. 02/07/2020 7:14 AM
--- NOTE | 2020-02-07 07:41 | XRay Report ---
SINGLE VIEW CHEST CLINICAL HISTORY: Atypical chest pain. FINDINGS: 2 AP, portable, upright chest radiographs are compared to study dated 06/07/2019 and correl ated with chest CT dated 06/11/2017. The cardiomediastinal silhouette is unremarkable noting atherosc lerotic calcification of the thoracic aorta. There is bibasilar scarring/atelectasis with mild elevat ion of the left hemidiaphragm. No airspace consolidation is seen typical for pneumonia and there is n o large pleural effusion. No pneumothorax is identified. The skeletal structures are osteopenic. The bony thorax is grossly intact. IMPRESSION: No acute cardiopulmonary abnormality. Electronically signed by: Landen Hopkins M.D. 02/07/2020 7:39 AM
--- NOTE | 2020-02-07 08:11 | CT Scan Report ---
CT angio chest PE protocol CT DOSE: 742.56 mGy.cm HISTORY: 74 years-old Male with PE. Acute chest pain TECHNIQUE: Multiple CTA images of the chest were obtained after the intravenous administration of 93 ml Optiray 320. Coronal and sagittal MIPS were obtained from the axial data set and were submitted f or review. All measurements were obtained according to NASCET criteria. A dose lowering technique wa s utilized adhering to the principles of ALARA. COMPARISON: Chest radiograph 02/06/2020, chest CT 06/11/2017, CT abdomen and pelvis 01/19/2018. FINDINGS: CTA: The heart is normal in size. No pericardial effusion. Minimal coronary artery calcifications. No thor acic aortic aneurysm or dissection. Mild mixed plaque of the thoracic aortic arch. There is patency o f the imaged great vessels. The pulmonary arterial tree is opacified to the level of the lobar branch es. The segmental and subsegmental branches are not well opacified. No pulmonary emboli identified. CT CHEST: Diminutive thyroid. There are a few prominent and mildly enlarged mediastinal lymph nodes measuring u p to 10 mm in the subcarinal distribution. The right inferior lung base is partially imaged. There is no pneumothorax, pleural effusion, or overt pulmonary edema. There is mild left greater than right b ibasilar atelectasis. Additional ill-defined patchy groundglass densities are present within the left greater than right lung bases. There are a few calcified granulomata noted within the right lung bas e. 4 mm fissural lymph node noted within the right midlung on image 120 series 4. 6 mm nodule of the right midlung on image 114 series 4 is suggestive of an additional lymph node and is unchanged. 6 mm solid nodule of the right lower lobe, image 56 series 4 is suggestive of an additional probable lymph node. 4 mm solid nodule of the right lower lobe, image 5 series 4. All of these nodules appear stabl e dating back to 01/19/2018. No lobar airspace consolidation. Small tracheocele near the thoracic inlet . Central airways are patent. No acute process of the imaged upper abdomen. Colonic diverticulosis. Degenerative changes of the yareli ulders and spine. IMPRESSION: 1. No acute aortic pathology or evidence of pulmonary thromboembolic disease. 2. No pleural effusion or airspace consolidation typical for pneumonia. 3. Prominent and mildly enlarged mediastinal lymph nodes, likely reactive. 4. Subtle ill-defined bibasilar groundglass centrilobular and patchy groundglass opacities appear sim ilar to the 2018 exam and are suggestive of a chronic nonspecific infectious or inflammatory process. 5. There are a few scattered likely benign pulmonary nodules measuring up to 6 mm which are stable da ting back to at least 01/19/2018. ACT 112: Negative or not required by law. The above report was generated using voice recognition software. It may contain grammatical, syntax o r spelling errors. Electronically signed by: David Luna M.D. 02/07/2020 8:10 AM
[2020-02-07] MEDS ORDERED: METOPROLOL TARTRATE 1 MG/ML VIAL IV ONE (08:52)
[2020-02-07] MEDS ORDERED: ATROPINE SULFATE 0.1 MG/ML 10ML SYR IV ONE (08:52)
[2020-02-07] MEDS ORDERED: DOBUTamine HCL 12.5 MG/ML 20 ML VIAL IV ONE (08:52)
[2020-02-07] MEDS ORDERED: ENOXAPARIN INJ 40 MG/0.4 ML SYR SQ SCH (09:00)
[2020-02-07] MEDS ORDERED: FLUDROCORTISONE ACETATE 0.1 MG TAB PO SCH (09:00)
[2020-02-07] MEDS ORDERED: CITALOPRAM 20 MG TAB PEG SCH (09:00)
--- NOTE | 2020-02-07 10:39 | Cardiology Consultation ---
Date of Consultation February 07, 2020 Assessment & Plan (1) Chest pain: (2) Orthostatic hypotension: (3) COPD (chronic obstructive pulmonary disease) with emphysema: It was my pleasure to see Mr. Canseco in consultation today. His ischemic work-up was unremarkable including a dobutamine stress echocardiogram that was nonischemic. Chest discomfort was not reproduced at peak heart rate. No further cardiac testing intervention is necessary at this time. No cardiac source for symptoms found. Okay to discharge from a cardiac standpoint without any medication changes from my standpoint. History of Present Illness Reason for Consultation: chest pain Requesting Physician: Dr. Nagel Attending Physician: Sana Nagel MD History of Present Illness It was my pleasure to see Mr. Canseco in consultation today February 07, 2020. He is a very pleasant 74-year-old gentleman who does not routinely follow with our cardiology practice. He presented to [facility] on 02/07/2020 with complaints of chest pain and shortness of breath. Initially had some shortness of breath the day prior to presentation and then some chest discomfort while in the emergency department. His initial ischemic work-up was unremarkable and he is admitted to telemetry. No symptoms recurred overnight and his BP remained stable. Allergies Allergy/AdvReac Type Severity Reaction Status Date / Time Nitrate Analogues Allergy Severe DROP IN BP Verified 02/06/20 22:26 sulfamethoxazole Allergy Intermediate ITCHING Verified 02/06/20 22:26 trimethoprim Allergy Intermediate ITCHING Verified 02/06/20 22:26 levofloxacin Allergy Mild rash all Verified 02/06/20 22:26 over body sertraline Allergy Mild NOSE BLEEDS Verified 02/06/20 22:26 terazosin Allergy Unknown DOES NOT Verified 02/06/20 22:26 KNOW Home Medications Home Medications Medication Instructions Recorded Confirmed Type Nutritional Drink 2 can FEEDING TUBE QID 05/07/18 02/06/20 History citalopram 20 mg FEEDING TUBE QAM 05/07/18 02/06/20 History fludrocortisone 0.1 mg FEEDING TUBE TID PRN 05/07/18 02/06/20 History ipratropium-albuterol 3 ml INHALATION Q4 PRN 05/07/18 02/06/20 History levothyroxine 100 mcg FEEDING TUBE QAM 05/07/18 02/06/20 History lorazepam 0.5 mg FEEDING TUBE DAILY PRN 05/07/18 02/06/20 History latanoprost 1 drp OPB HS 01/30/19 02/06/20 History ondansetron HCl [Zofran] 8 mg PO TID PRN 03/28/19 02/06/20 History albuterol sulfate 2.5 mg INH Q6H PRN #75 ml 06/07/19 02/06/20 Rx Patient History Medical History Anxiety Aspiration pneumonia CAN NOT TAKE FOOD/LIQUIDS ORALLY Asthma Benign prostatic hyperplasia (Unknown) Chronic back pain COPD (chronic obstructive pulmonary disease) with emphysema Degenerative disc disease Depression Gastroparesis GERD (gastroesophageal reflux disease) Glaucoma Hypothyroidism Orthostatic hypotension Osteoarthritis Tonsil carcinoma (Unknown) RADIATION AND CHEMO Uses feeding tube Surgical History H/O esophagogastroduodenoscopy (Unknown) WITH PLACEMENT PEG TUBE History of anesthesia reaction SLOW TO WAKE UP History of neck surgery LUMPECTOMY History of tooth extraction S/P arthroscopic knee surgery (Unknown) RT S/P colonoscopy (Unknown) Family History Brother Family history of diabetes mellitus Social History Smoking Status: Unknown if ever smoked Second Hand Exposure: No; Hx Alcohol Use: No Hx Substance Use: No Preferred Language: Persian 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 Ability: Effective Invertebrate Paleontologist Required: No Beliefs That Will Affect Care: None marital status: Current Living Situation: Spouse Feels Safe at Home: Yes Safety Concerns: Feels Safe At This Time Review of Systems Review of Systems: All systems reviewed & are unremarkable except as noted in HPI & below Physical Exam Physical Exam: General: Awake, alert and oriented x 3. No acute distress. Significant dysarthria HEENT: Normocephalic, atraumatic. Pupils equal, round and reactive to light and accommodation. Extraocular muscles are intact. Anicteric sclera. Moist mucous membranes. Neck: No JVD. No bruit. Cardiovascular: Regular. Positive S-4. Normal S-1 and S-2. No S-3. No murmurs or rubs. Pulmonary: Clear to auscultation B/L. No rales, rhonchi or wheezing Abdomen: Bowel sounds x 4, soft. No rebound, guarding or tenderness. No organomegaly. Extremities: No clubbing, cyanosis or edema. +2 pedal pulses bilaterally. Skin: Warm and dry. Results & Data ([facility]) Vital Signs (Past 12 Hours) Vital Signs Temp Pulse Pulse Resp BP BP Pulse Ox 02/07/20 08:04 36.6 C 58 L 18 108/74 96 02/07/20 02:33 73 02/07/20 01:51 72 18 134/84 92 02/07/20 01:09 76 18 158/88 H 94 02/06/20 22:42 74 18 97
--- NOTE | 2020-02-07 12:35 | Electrocardiogram Report ---
Test Reason : Blood Pressure : / mmHG Vent. Rate : 074 BPM Atrial Rate : 074 BPM P-R Int : 154 ms QRS Dur : 088 ms QT Int : 380 ms P-R-T Axes : 066 -50 048 degrees QTc Int : 421 ms Normal sinus rhythm Left anterior fascicular block Abnormal ECG When compared with ECG of 06-JUN-2019 23:57, No significant change was found Confirmed by Soto Moore ([id number]) on 02/07/2020 12:34:43 PM Referred By: REFERRED SELF Confirmed By:Soto Moore
--- NOTE | 2020-02-07 12:58 | 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 Note ---
Date of Service: February 07, 2020 Attending hospitalist Note: This is a 74-year-old male with history of tonsillar cancer status post chemoradiation/neck dissection, on PEG tube feeding Admitted with chest heaviness, chest discomfort, Symptom has completely resolved Physical exam: Brief General: No sign of distress, awake alert and oriented, HEENT: Unremarkable Lungs: Clear to AUSCULTATE no wheeze rales noted Heart: Regular S1-S2 no murmur gallop Abdomen: Mid abdomen PEG tube present, no sign of infection, no tenderness swelling Extremities: No lower extremity rash, no edema, no deformity Neuro: No focal neurological deficit patient is alert awake oriented x3 Chest pain: Noncardiac Dobutamine cardiac stress test negative for stress-induced ischemia Concern for possible aspiration of tube feeding, Does not have any sign or symptoms of tube feed reflux during this hospital stay No cough, no fever or chills, normal white count This x-ray shows no evidence of aspiration, no infiltrate Had transient elevation of blood pressure in ER, possible secondary to anxiety, situational reports patient's blood pressure always recorded to high in hospital stays, clinic visits At home systolic blood pressure usually runs between 110s/120 BP stable at 117/75 hx tonsillar cancer status post chemoradiation/neck dissection, Continue tube feeding via PEG tube Disposition: Plan to discharge home later this afternoon after cardiology eval
--- NOTE | 2020-02-07 13:05 | Discharge Summary ---
Date of Service February 07, 2020 Admission HPI Per Admitting Provider History obtained from patient, family, and records. Limited history from patient secondary to marked hearing impairment. Medical history is significant for tonsillar cancer status post chemoradiation/neck dissection, COPD, past tobacco abuse, orthostatic hypotension on fludrocortisone, known aspiration risk sp PEG tube placement, gastroparesis, hx MRSA as per records, hypothyroidism. Last confinement July 2017 for acute gastroenteritis. Yesterday, patient noted shortness of breath symptoms without chest pain. Cough symptoms with tube feed reflux as per . Achy headache symptoms. SBP 180s upon arrival at the ER. GI cocktail given at the ER. At the ER, patient experienced chest heaviness going to the left arm relieved by Nitropaste. Headache worse with Nitropaste. MEDICAL HISTORY: As above. SURGERIES: He has had neck/reconstruction surgery, lymph node dissection, knee surgery, dental surgery. FAMILY HISTORY: Diabetes, heart disease, COPD PERSONAL AND SOCIAL HISTORY: Past tobacco abuse. 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 Principal Diagnosis Chest pain , non cardiac , dobutamine stress test negative Discharge Data Allergies Allergy/AdvReac Type Severity Reaction Status Date / Time Nitrate Analogues Allergy Severe DROP IN BP Verified 02/06/20 22:26 sulfamethoxazole Allergy Intermediate ITCHING Verified 02/06/20 22:26 trimethoprim Allergy Intermediate ITCHING Verified 02/06/20 22:26 levofloxacin Allergy Mild rash all Verified 02/06/20 22:26 over body sertraline Allergy Mild NOSE BLEEDS Verified 02/06/20 22:26 terazosin Allergy Unknown DOES NOT Verified 02/06/20 22:26 KNOW Consultations 02/06/20 23:01 ED Decision to Admit Stat 02/07/20 12:01 Consult Cardiology Routine Ordered Studies 02/06/20 23:48 CT angio chest PE protocol Urgent CT head/brain wo con Urgent Hospital Course (1) Chest pain: Attending hospitalist Note: This is a 74-year-old male with history of tonsillar cancer status post chemoradiation/neck dissection, on PEG tube feeding Admitted with chest heaviness, chest discomfort, Symptom has completely resolved Chest pain: Noncardiac Dobutamine cardiac stress test negative for stress-induced ischemia discussed with cardiology : no further cardiac work up needed Concern for possible aspiration of tube feeding, Does not have any sign or symptoms of tube feed reflux during this hospital stay No cough, no fever or chills, normal white count This x-ray shows no evidence of aspiration, no infiltrate aspiration precaution : keep Head elevated 30 degrees while getting tube feeding Had transient elevation of blood pressure in ER, possible secondary to anxiety, situational reports patient's blood pressure always recorded to high in hospital stays, clinic visits At home systolic blood pressure usually runs between 110s/120 BP stable at 117/75 hx tonsillar cancer status post chemoradiation/neck dissection, Continue tube feeding via PEG tube Disposition: stable to be discharged home today Total Time Total Time Spent Total Time Spent (In Minutes): APPROX 35 mins Total Time Includes: Discharge Planning, Medication Reconciliation and 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 With Other Providers Discharge Plan Discharge Items Patient Disposition: Home - Self-Care Reason For Visit: CP Discharge Diagnosis: Chest pain, noncardiac, dobutamine stress test negative Activity: Resume your previous activity Non-emergency contact: Primary Care Provider Call non-emergency contact if: you have any medication questions Follow-up/Referrals: Sanjiv Hart MD [Primary Care Provider] - 02/15/20 11:20 am (HOSPITAL FOLLOW UP WITH DR SERAFIN WASHINGTON ON 02/15/20 @ 11: 20 AM ) Diet: Nothing by Mouth Diet Comment: Continue Tube feeding via PEG tube Addtl Attending Provider Instructions: Keep head elevated 30 degrees during tube feeding to prevent aspiration Pending Studies at Discharge: No Stand-Alone Forms: My [facility], Smoking Cessation Medications and DC Order Prescriptions: Continued latanoprost 0.005 % Drops 1 drp OPB HS RF: 0 ondansetron HCl [Zofran] 8 mg Tablet 8 mg PO TID PRN (Reason: Nausea) RF: 0 albuterol sulfate 2.5 mg /3 mL (0.083 %) solution for nebulization 2.5 mg INH Q6H PRN (Reason: shortness of breath or wheezing) Qty: 75 RF: 0 ipratropium-albuterol 0.5 mg-3 mg(2.5 mg base)/3 mL Solution For Nebulization 3 ml INHALATION Q4 PRN (Reason: Shortness Of Breath Or Wheezing) RF: 0 levothyroxine 100 mcg tablet 100 mcg Feeding Tube QAM RF: 0 citalopram 20 mg tablet 20 mg Feeding Tube QAM RF: 0 lorazepam 0.5 mg tablet 0.5 mg Feeding Tube DAILY PRN (Reason: Anxiety) RF: 0 fludrocortisone 0.1 mg Tablet 0.1 mg Feeding Tube TID PRN (Reason: Hypotension) RF: 0 Nutritional Drink Liquid 2 can Feeding Tube QID RF: 0 Discharge Orders: Discharge Order (Routine); Ordered 02/07/20 Ordered By: Sana Nagel Admission Data Admit Date/Time: 02/07/20 00:51 Attending Provider: Sana Nagel Admit Provider: Tirso Guillory Primary Care Provider: Sanjiv Hart Other Providers: Tirso Guillory ; Chepe Jacques
[2020-02-07] MEDS ORDERED: LATANOPROST 0.005% OP SOLN 2.5 ML BTL OPB SCH (21:00)
== END 2020-02-07 13:34 | disposition home or self-care (01) ==
LOC: 2E 20:57 → ED 20:57 → SUATTDRO 02-07 00:51 → 2E 02-07 01:09

== ENCOUNTER 2021-03-03 23:10 | Observation (INO) ==
[2021-03-03 23:41] LABS: Basophils # (auto) 0.02 K/uL (0-0.2); Basophils % (auto) 0.4 %; Eosinophils # (auto) 0.26 K/uL (0-0.5); Eosinophils % (auto) 4.6 %; Hematocrit (blood only) 44.1 % (42-52); Hemoglobin 15.1 g/dL (14.0-18.0); Immature Granulocytes # (auto) 0.01 K/uL (0.00-0.02); Immature Granulocytes % (auto) 0.2 %; Lymphocytes # (auto) 1.21 K/uL (1.2-3.4); Lymphocytes % (auto) 21.2 %; Mean Corpuscular Hemoglobin 33.6 pg (25-34); Mean Corpuscular Hgb Conc 34.2 g/dL (32-36); Mean Corpuscular Volume 98.2 fL (80-100); Mean Platelet Volume 11.5 fL (7.4-10.4); Monocytes # (auto) 0.63 K/uL (0.11-0.59); Monocytes % (auto) 11.1 %; Neutrophils # (auto) 3.57 K/uL (1.4-6.5); Neutrophils % (auto) 62.5 %; Platelet Count 157 K/uL (130-400); RDW Coefficient of Variation 13.1 % (11.5-14.5); RDW Standard Deviation 47.1 fL (36.4-46.3); Red Blood Count 4.49 M/uL (4.7-6.1)
[2021-03-03 23:47] LABS: Partial Thromboplastin Ratio 1.1; Partial Thromboplastin Time 28.2 Seconds (21.0-31.0)
[2021-03-03 23:58] LABS: Alanine Aminotransferase 45 U/L (12-78); Albumin Level 3.5 gm/dl (3.4-5.0); Aspartate Aminotransferase 28 U/L (15-37); BUN Creatinine Ratio 20.3 (10-20); Blood Urea Nitrogen 16 mg/dl (7-18); Calcium 9.1 mg/dl (8.5-10.1); Carbon Dioxide 30 mmol/L (21-32); Chloride 104 mmol/L (98-107); Creatinine Clr Calc Pharmacy 85.4 ml/min; Est GFR (African American) 102.2 ml/min; Est GFR (Non-African American) 88.2 ml/min; Glucose 89 mg/dl (70-99); Lipase 144 U/L (73-393); Potassium 3.7 mmol/L (3.5-5.1); Sodium 138 mmol/L (136-145)
[2021-03-04 00:03] LABS: Albumin Globulin Ratio 0.9 (0.9-2); Alkaline Phosphatase 88 U/L (45-117); Bilirubin,Total 0.5 mg/dl (0.2-1); Creatine Kinase 49 U/L (39-308); Creatine Kinase MB < 1.0 ng/ml (0.5-3.6); Globulin 3.9 gm/dl (2.5-4.0); Total Protein 7.4 gm/dl (6.4-8.2); Troponin I < 0.015 ng/ml (0-0.045)
--- NOTE | 2021-03-04 00:26 | Emergency Department Note ---
ED Provider Note NAME: DEMETRIO WELSH AGE: 75 SEX: M : 1945 ARRIVES VIA: Walk-In INFORMANT: Patient, ED PROVIDER(S): Cheo Rodriguez MD CHIEF COMPLAINT: hypertension HPI: Records review reveals this patient was seen in the emergency department 10 days ago for hypertension. The patient presents to the emergency department with his . The patient's has been taking a log of the patient's blood pressures at home. He has a history of low blood pressure. She reports they were getting ready to go to sleep tonight when she took his blood pressure and found it to be elevated. In addition to the elevation in the blood pressure the patient is also complaining of left-sided chest pain as well as shoulder pain. He describes the pain as an aching sensation with radiation into the shoulder. ROS: See above HPI for pertinent positives & negatives. A total of 10 systems reviewed and were otherwise negative. PAST MEDICAL HISTORY: See Below PAST SURGICAL HISTORY: See Below FAMILY HISTORY: See Below SOCIAL HISTORY: See Below HOME MEDICATIONS: See Below ALLERGIES: See Below VITALS: See Below PHYSICAL EXAMINATION: VITAL SIGNS - Vital signs and nursing notes were reviewed. GENERAL - 75-year-old male appearing stated age who is in no acute distress. SKIN - Without rashes. HEAD - NC/AT. EYES - PERRL with EOMI bilaterally. Sclera anicteric. Palpebral conjunctiva pink and moist with no injection noted. EARS - No deformities of external structures noted on gross examination bilaterally. NOSE - Midline and without cyanosis. No epistaxis or purulent drainage noted. Septum midline without deviation or septal hematoma noted. MOUTH/OROPHARYNX - Without perioral cyanosis. Buccal mucosa pink and moist and without leukoplakia. Tongue midline with equal elevation of palate bilaterally. No tonsillar hypertrophy, erythema, or exudates noted. NECK - Neck with FROM. Supple to palpation. LUNGS - Chest wall symmetric without accessory muscle use, intercostals retractions, or central cyanosis. Normal vesicular breath sounds CTA B/L. No wheezes, rales, or rhonchi appreciated. CARDIAC - RRR with S1/S2. No murmur, rubs, or gallops appreciated. ABDOMEN - Abdominal contour without pulsations or visible masses. BS normoactive all four quadrants. No tenderness, palpable masses, hepatosplenomegaly, or ascites noted. EXTREMITIES - No clubbing or peripheral cyanosis. No pretibial edema present. +3/5 radial, posterior tibial, and dorsalis pedis pulses palpated throughout. +5/5 strength noted in UE/LE bilaterally. NEUROLOGIC - Cranial nerves II through XII grossly intact. Sensory intact to light touch throughout. Patellar reflexes +2/4. PSYCH - A&Ox3 and cooperates fully with examiner. Pt is very pleasant and interacts well with examiner. MEDICAL DECISION MAKING: Patient was seen and evaluated as above in room A11. Review was performed of nursing notes and vital signs. I did review pertinent previous visits and patient history. After obtaining a thorough history and physical examination the above work up was performed. This 75-year-old male who presents emergency department complaining of high blood pressure. Upon arrival to the emergency department the patient's blood pressure is markedly improved however he is continue to have left-sided chest pain. He has not been able to get into his primary care physician yet. His troponin is not elevated. Chest x-ray was interpreted by me does not show any evidence of pneumonia congestion or pneumothorax While in the department, I personally reevaluated the patient several times and each time the patient was found to be resting comfortably. The patient was educated upon management, educated upon todays findings/results, educated upon importance of follow up from today's visit, educated upon symptoms in which to return, had questions answered prior to discharge, verbalized understanding, and was discharged home in good condition. An order was placed for continuous cardiac monitoring. The monitor shows a rate of 66 with Normal SInus rhythm. The patient was evaluated during a period of high volume and high acuity during the global COVID-19 pandemic, and that diagnosis was suspected/considered upon their initial presentation. Their evaluation, treatment and testing was consistent with current guidelines for patients who present with complaints or symptoms that may be related to COVID-19. Patient was seen while provider was wearing PPE. Triage Nursing notes reviewed. Prior medical records reviewed Vital Signs: reviewed and remarkable for no significant abnormalities Differential diagnosis: Cardiac ischemia, aortic dissection, pulmonary embolism, pneumothorax, pneumonia, pericarditis, myocarditis, esophageal rupture, GERD, cholecystitis, pancreatitis, musculoskeletal, as well as other pathologies. ER treatment provided: See below Diagnostics interpreted by me: ECG: Normal sinus rhythm left anterior fascicular block QTC is 425 ventricular rate of [address] elevation or depression. EKG is compared to 02/22/2021 no significant changes found Laboratory studies: As stated above and show below. Imaging studies: See below Consultation(s): none Past Med/Surg History Medical History (Updated 02/22/21 @ 04:29 by Gabriella Weaver DO) Anxiety Aspiration pneumonia CAN NOT TAKE FOOD/LIQUIDS ORALLY Asthma Benign prostatic hyperplasia (Unknown) Chronic back pain COPD (chronic obstructive pulmonary disease) with emphysema Degenerative disc disease Depression Gastroparesis GERD (gastroesophageal reflux disease) Glaucoma Hypothyroidism Orthostatic hypotension Osteoarthritis Tonsil carcinoma (Unknown) RADIATION AND CHEMO Uses feeding tube Surgical History H/O esophagogastroduodenoscopy (Unknown) WITH PLACEMENT PEG TUBE History of anesthesia reaction SLOW TO WAKE UP History of neck surgery LUMPECTOMY History of tooth extraction S/P arthroscopic knee surgery (Unknown) RT S/P colonoscopy (Unknown) Family History Brother Family history of diabetes mellitus Social History Smoking Status: Former smoker Tobacco Type: Cigarettes Second Hand Exposure: No; Hx Alcohol Use: No Hx Substance Use: No Preferred Language: Amharic 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 Ability: Effective 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 Required: No Beliefs That Will Affect Care: None marital status: Current Living Situation: Spouse Feels Safe at Home: Yes Assistive Devices: Walker Allergies Allergies Allergy/AdvReac Type Severity Reaction Status Date / Time Nitrate Analogues Allergy Severe DROP IN BP Verified 02/22/21 02:13 sulfamethoxazole Allergy Intermediate ITCHING Verified 02/22/21 02:13 trimethoprim Allergy Intermediate ITCHING Verified 02/22/21 02:13 levofloxacin Allergy Mild rash all Verified 02/22/21 02:13 over body sertraline Allergy Mild NOSE BLEEDS Verified 02/22/21 02:13 terazosin Allergy Unknown DOES NOT Verified 02/22/21 02:13 KNOW Home Meds Home Medications Medication Instructions Recorded Confirmed citalopram 20 mg tablet 20 mg FEEDING TUBE QAM 05/07/18 02/22/21 food supplemt, lactose-reduced 2 can FEEDING TUBE QID 05/07/18 02/22/21 (Nutritional Drink) latanoprost 0.005 % eye drops 1 drp OPB HS 01/30/19 02/22/21 albuterol sulfate 90 mcg/actuation 2 puff INHALATION QID PRN 11/08/20 02/22/21 aerosol inhaler brimonidine 0.2 % eye drops 1 drp OPB BID 11/08/20 02/22/21 fludrocortisone 0.1 mg tablet 0.1 mg FEEDING TUBE DAILY PRN 12/14/20 02/22/21 dextrose 40 % oral gel (Glucose 0 ea PO DIRECTED PRN 01/19/21 02/22/21 Gel) levothyroxine 75 mcg tablet 75 mcg FEEDING TUBE DAILYBB 01/19/21 02/22/21 Previous Rx's Medication Instructions Recorded albuterol sulfate 2.5 mg INHALATION Q6H PRN #75 ml 11/01/20 Results & Data (ED) Vital Signs Vital Signs - 24 hr 03/03/21 23:12 03/03/21 23:21 03/03/21 23:30 Temperature 36.2 C L Temperature Source Temporal Artery Scan Pulse Rate 81 70 66 Pulse Rate from SpO2 Sensor 70 65 Respiratory Rate 20 16 16 Respiratory Depth Normal Blood Pressure 185/108 H 170/95 H 143/88 H Blood Pressure Mean 133 120 106 Pulse Oximetry 98 99 98 Oxygen Delivery Method Room Air Sepsis New/Unexplained Change in Mental Status N/A Sepsis Action Taken by Nursing No Action Required Laboratory Data Result diagrams: 03/03/21 23:25 03/03/21 23:25 Lab Results 03/03/21 03/03/21 03/03/21 Range/Units 23:25 23:25 23:25 WBC 5.70 (4.8-10.8) K/uL RBC 4.49 L (4.7-6.1) M/uL Hgb 15.1 (14.0-18.0) g/dL Hct 44.1 (42-52) % MCV 98.2 (80-100) fL MCH 33.6 (25-34) pg MCHC 34.2 (32-36) g/dL RDW Std Deviation 47.1 H (36.4-46.3) fL RDW Coeff of Judy 13.1 (11.5-14.5) % Plt Count 157 (130-400) K/uL MPV 11.5 H (7.4-10.4) fL Immature Gran % (Auto) 0.2 % Neut % (Auto) 62.5 % Lymph % (Auto) 21.2 % Wythe % (Auto) 11.1 % Eos % (Auto) 4.6 % Baso % (Auto) 0.4 % Neut # (Auto) 3.57 (1.4-6.5) K/uL Lymph # (Auto) 1.21 (1.2-3.4) K/uL Wythe # (Auto) 0.63 H (0.11-0.59) K/uL Eos # (Auto) 0.26 (0-0.5) K/uL Baso # (Auto) 0.02 (0-0.2) K/uL Immature Gran # (Auto) 0.01 (0.00-0.02) K/uL APTT 28.2 (21.0-31.0) Seconds PTT Ratio 1.1 Sodium 138 (136-145) mmol/L Potassium 3.7 (3.5-5.1) mmol/L Chloride 104 (98-107) mmol/L Carbon Dioxide 30 (21-32) mmol/L Anion Gap 4.0 (3-11) BUN 16 (7-18) mg/dl Creatinine 0.81 (0.6-1.4) mg/dl Est Cr Clr Drug Dosing 85.4 ml/min Est GFR ( Amer) 102.2 ml/min Est GFR (Non-Af Amer) 88.2 ml/min BUN/Creatinine Ratio 20.3 H (10-20) Glucose 89 (70-99) mg/dl Calcium 9.1 (8.5-10.1) mg/dl Total Bilirubin 0.5 (0.2-1) mg/dl AST 28 (15-37) U/L ALT 45 (12-78) U/L Alkaline Phosphatase 88 (45-117) U/L Total Creatine Kinase 49 (39-308) U/L CK-MB (CK-2) < 1.0 (0.5-3.6) ng/ml CK/CKMB % Calc TNP Troponin I < 0.015 (0-0.045) ng/ml Total Protein 7.4 (6.4-8.2) gm/dl Albumin 3.5 (3.4-5.0) gm/dl Globulin 3.9 (2.5-4.0) gm/dl Albumin/Globulin Ratio 0.9 (0.9-2) Lipase 144 (73-393) U/L COVID-19 Eval Order 03/03/21 Range/Units 23:33 WBC (4.8-10.8) K/uL RBC (4.7-6.1) M/uL Hgb (14.0-18.0) g/dL Hct (42-52) % MCV (80-100) fL MCH (25-34) pg MCHC (32-36) g/dL RDW Std Deviation (36.4-46.3) fL RDW Coeff of Judy (11.5-14.5) % Plt Count (130-400) K/uL MPV (7.4-10.4) fL Immature Gran % (Auto) % Neut % (Auto) % Lymph % (Auto) % Wy[place] % (Auto) % Eos % (Auto) % Baso % (Auto) % Neut # (Auto) (1.4-6.5) K/uL Lymph # (Auto) (1.2-3.4) K/uL Wythe # (Auto) (0.11-0.59) K/uL Eos # (Auto) (0-0.5) K/uL Baso # (Auto) (0-0.2) K/uL Immature Gran # (Auto) (0.00-0.02) K/uL APTT (21.0-31.0) Seconds PTT Ratio Sodium (136-145) mmol/L Potassium (3.5-5.1) mmol/L Chloride (98-107) mmol/L Carbon Dioxide (21-32) mmol/L Anion Gap (3-11) BUN (7-18) mg/dl Creatinine (0.6-1.4) mg/dl Est Cr Clr Drug Dosing ml/min Est GFR ( Amer) ml/min Est GFR (Non-Af Amer) ml/min BUN/Creatinine Ratio (10-20) Glucose (70-99) mg/dl Calcium (8.5-10.1) mg/dl Total Bilirubin (0.2-1) mg/dl AST (15-37) U/L ALT (12-78) U/L Alkaline Phosphatase (45-117) U/L Total Creatine Kinase (39-308) U/L CK-MB (CK-2) (0.5-3.6) ng/ml CK/CKMB % Calc Troponin I (0-0.045) ng/ml Total Protein (6.4-8.2) gm/dl Albumin (3.4-5.0) gm/dl Globulin (2.5-4.0) gm/dl Albumin/Globulin Ratio (0.9-2) Lipase (73-393) U/L COVID-19 Eval Order Covid19 at [facility] Discharge Plan Visit Data Chief Complaint: Hypertension Stated Complaint: HIGH BLOOD PRESSURE ED Provider: Cheo Rodriguez Forms Stand Alone Forms: [employer] Prescriptions Prescriptions: No Action latanoprost 0.005 % Drops 1 drp OPB HS RF: 0 citalopram 20 mg tablet 20 mg Feeding Tube QAM RF: 0 Nutritional Drink Liquid 2 can Feeding Tube QID RF: 0 brimonidine 0.2 % drops 1 drp OPB BID RF: 0 albuterol sulfate 90 mcg/actuation HFA aerosol inhaler 2 puff INHALATION QID PRN (Reason: Shortness Of Breath) RF: 0 albuterol sulfate 2.5 mg /3 mL (0.083 %) solution for nebulization 2.5 mg inhalation Q6H PRN (Reason: bronchospasm) Qty: 75 RF: 0 fludrocortisone 0.1 mg tablet 0.1 mg feeding tube DAILY PRN (Reason: Dizziness) RF: 0 levothyroxine 75 mcg Tablet 75 mcg feeding tube DAILYBB RF: 0 dextrose [Glucose Gel] 40 % Gel 0 ea PO DIRECTED PRN (Reason: LOW BLOOD SUGARS) RF: 0 Referrals Referrals: Sanjiv Hart MD [Primary Care Provider] -
[2021-03-04] MEDS ORDERED: OPTIRAY 320 125ml IV ONE (01:06)
[2021-03-04] MEDS ORDERED: NITROGLYCERIN 2% OINTMENT 30GM TUBE EXT STA (02:34)
[2021-03-04] MEDS ORDERED: ASPIRIN CHEW 324 MG PO STA (02:34)
[2021-03-04] MEDS ORDERED: lisinopril 2.5 MG TAB PO ONE ×2 (02:45→03:55)
[2021-03-04 03:25] LABS: Magnesium 2.5 mg/dl (1.8-2.4); Troponin I < 0.015 ng/ml (0-0.045)
--- NOTE | 2021-03-04 03:49 | History & Physical Report ---
Date of Service March 04, 2021 Assessment & Plan (1) Chest pain: Plan: Chest pain: Secondary to uncontrolled hypertension rule out ACS given patient risk factors and relief with nitroglycerin. hx tonsillar cancer status post chemoradiation/neck dissection, COPD, not in acute exacerbation hx orthostatic hypotension, patient off fludrocortisone for 2 months now since BP started going up hypothyroidism. recent outpatient TSH slightly elevated Past tobacco abuse OBS PCU Initiate lisinopril Follow troponin Aspirin for CAD prevention until ACS ruled out Cardiology consult Re: Chest pain relieved by nitroglycerin N.p.o. until patient seen by Cardiology in anticipation of procedure. DVT prophylaxis per Lovenox subcu Full code Patient's requesting updates providers. Ms. Dalila Canseco, contact #[phone]. Text document was generated using [employer] voice recognition software. It may contain grammatical or spelling errors. Kindly contact undersigned for clarification of any documentation item in question. History of Present Illness Chief Complaint: Chest pain Primary Care Provider: Sanjiv Hart MD History obtained from patient, family, and records. Limited history from patient secondary to marked hearing impairment. Medical history is significant for tonsillar cancer status post chemoradiation/neck dissection, COPD, past tobacco abuse, hx orthostatic hypotension, known aspiration risk sp PEG tube placement, gastroparesis, hypothyroidism. Last confinement January 2020 for chest pain. Dobutamine stress echo was negative. Patient blood pressure at home has been high the last 6 weeks. SBP 200s. Patient stopped giving patient fludrocortisone which patient has been taking for years for low blood pressure. No chest pain, no shortness of breath, no unusual stress at home. Only thing new was COVID-19 vaccination as per . Patient seen at the ER last month but subsequently discharged. SBP however 100s on follow-up with PCP a few days later. Recent ER visit 10 days ago for uncontrolled BP without symptoms. SBP 180-220s. ER provider advised patient's to keep blood pressure log. Last night, patient noted achy left-sided discomfort radiating to be left arm. No cough symptoms, no diaphoresis, no unusual shortness of breath. No headache symptoms. SBP noted to be 200s at home. At the ER, patient given aspirin and Nitropaste. Chest pain resolved. MEDICAL HISTORY: As above. SURGERIES: He has had neck/reconstruction surgery, lymph node dissection, knee surgery, dental surgery. FAMILY HISTORY: Diabetes, heart disease, COPD PERSONAL AND SOCIAL HISTORY: Past tobacco abuse. 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 Allergies Allergy/AdvReac Type Severity Reaction Status Date / Time Nitrate Analogues Allergy Severe DROP IN BP Verified 02/22/21 02:13 sulfamethoxazole Allergy Intermediate ITCHING Verified 02/22/21 02:13 trimethoprim Allergy Intermediate ITCHING Verified 02/22/21 02:13 levofloxacin Allergy Mild rash all Verified 02/22/21 02:13 over body sertraline Allergy Mild NOSE BLEEDS Verified 02/22/21 02:13 terazosin Allergy Unknown DOES NOT Verified 02/22/21 02:13 KNOW Home Medications Medication Instructions Recorded Confirmed Type citalopram 20 mg tablet 20 mg FEEDING TUBE QAM 05/07/18 03/04/21 History food supplemt, lactose-reduced 2 can FEEDING TUBE QID 05/07/18 03/04/21 History (Nutritional Drink) latanoprost 0.005 % eye drops 1 drp OPB HS 01/30/19 03/04/21 History albuterol sulfate 2.5 mg INHALATION Q6H PRN #75 ml 11/01/20 03/04/21 Rx albuterol sulfate 90 mcg/actuation 2 puff INHALATION QID PRN 11/08/20 03/04/21 History aerosol inhaler brimonidine 0.2 % eye drops 1 drp OPB BID 11/08/20 03/04/21 History dextrose 40 % oral gel (Glucose 0 ea PO DIRECTED PRN 01/19/21 03/04/21 History Gel) levothyroxine 75 mcg tablet 75 mcg FEEDING TUBE DAILYBB 01/19/21 03/04/21 History famotidine 20 mg tablet 20 mg FEEDING TUBE BID 03/04/21 03/04/21 History tramadol 50 mg tablet 50 mg PO Q6H PRN 03/04/21 03/04/21 History Past Med/Surg History Medical History Anxiety Aspiration pneumonia CAN NOT TAKE FOOD/LIQUIDS ORALLY Asthma Benign prostatic hyperplasia (Unknown) Chronic back pain COPD (chronic obstructive pulmonary disease) with emphysema Degenerative disc disease Depression Gastroparesis GERD (gastroesophageal reflux disease) Glaucoma Hypothyroidism Orthostatic hypotension Osteoarthritis Tonsil carcinoma (Unknown) RADIATION AND CHEMO Uses feeding tube Surgical History H/O esophagogastroduodenoscopy (Unknown) WITH PLACEMENT PEG TUBE History of anesthesia reaction SLOW TO WAKE UP History of neck surgery LUMPECTOMY History of tooth extraction S/P arthroscopic knee surgery (Unknown) RT S/P colonoscopy (Unknown) Family History Brother Family history of diabetes mellitus Social History Smoking Status: Never smoker Tobacco Type: Cigarettes Second Hand Exposure: No; Hx Alcohol Use: No Hx Substance Use: No Preferred Language: Cook Islander 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 Ability: Effective Electrical Drafter Required: No Beliefs That Will Affect Care: None marital status: Current Living Situation: Spouse Other Information That Helps Us Care for You: No Feels Safe at Home: Yes Safety Concerns: Feels Safe At This Time Assistive Devices: None Review of Systems Review of Systems: Could not be reliably obtained Physical Exam Physical Exam: GENERAL: Comfortable, dysarthric (chronic), hard of hearing, pleasant, obese, no respiratory distress SKIN: Normal color, warm HEENT: Felt palpebral conjunctivae, no ptosis, chronic facial asymmetry, dry buccal mucosa NECK : Supple, no tenderness CHEST : Decreased breath sounds, no tenderness HEART : RRR, no obvious murmurs ABDOMEN: distention, PEG tube in place, nontender EXTREMITIES : no LE swelling, no LE tenderness, no other conspicuous deformities noted NEUROLOGIC : Coherent, chronic facial asymmetry, chronic dysarthria, no other gross focality Results & Data Results & Data ([facility]) Vital Signs (Past 12 Hours) Vital Signs Temp Pulse Resp BP Pulse Ox 03/04/21 02:30 62 18 184/108 H 99 03/04/21 02:00 61 14 168/93 H 98 03/04/21 01:30 61 16 169/102 H 99 03/04/21 01:00 71 22 172/103 H 95 03/04/21 00:00 66 15 150/90 H 98 03/03/21 23:30 66 16 143/88 H 98 03/03/21 23:21 70 16 170/95 H 99 03/03/21 23:12 36.2 C L 81 20 185/108 H 98 Laboratory Results Laboratory Results WBC 5.70 K/uL (4.8-10.8) 03/03/21 23:25 RBC 4.49 M/uL (4.7-6.1) L 03/03/21 23:25 Hgb 15.1 g/dL (14.0-18.0) 03/03/21 23:25 Hct 44.1 % (42-52) 03/03/21 23:25 MCV 98.2 fL (80-100) 03/03/21 23:25 MCH 33.6 pg (25-34) 03/03/21 23: MCHC 34.2 g/dL (32-36) 03/03/21 23: RDW Std Deviation 47.1 fL (36.4-46.3) H 03/03/21 23:25 RDW Coeff of Judy 13.1 % (11.5-14.5) 03/03/21: Plt Count 157 K/uL (130-400) 03/03/21 23: MPV 11.5 fL (7.4-10.4) H 03/03/21 23:25 Immature Gran % (Auto) 0.2 % 03/03/21 23:25 Neut % (Auto) 62.5 % 03/03/21 23:25 Lymph % (Auto) 21.2 % 03/03/21 23:25 [place] % (Auto) 11.1 % 03/03/21 23:25 Eos % (Auto) 4.6 % 03/03/21 23:25 Baso % (Auto) 0.4 % 03/03/21 23: Neut # (Auto) 3.57 K/uL (1.4-6.5) 03/03/21 23:25 Lymph # (Auto) 1.21 K/uL (1.2-3.4) 03/03/21 23:25 [place] # (Auto) 0.63 K/uL (0.11-0.59) H 03/03/21 23:25 Eos # (Auto) 0.26 K/uL (0-0.5) 03/03/21 23:25 Baso # (Auto) 0.02 K/uL (0-0.2) 03/03/21 23:25 Immature Gran # (Auto) 0.01 K/uL (0.00-0.02) 03/03/21 23:25 APTT 28.2 Seconds (21.0-31.0) 03/03/21 23:25 PTT Ratio 1.1 03/03/21 23:25 Sodium 138 mmol/L (136-145) 03/03/21 23:25 Potassium 3.7 mmol/L (3.5-5.1) 03/03/21 23:25 Chloride 104 mmol/L (98-107) 03/03/21 23:25 Carbon Dioxide 30 mmol/L (21-32) 03/03/21 23:25 Anion Gap 4.0 (3-11) 03/03/21 23:25 BUN 16 mg/dl (7-18) 03/03/21 23:25 Creatinine 0.81 mg/dl (0.6-1.4) 03/03/21 23:25 Est Cr Clr Drug Dosing 85.4 ml/min 03/03/21 23:25 Est GFR ( Amer) 102.2 ml/min 03/03/21 23:25 Est GFR (Non-Af Amer) 88.2 ml/min 03/03/21 23:25 BUN/Creatinine Ratio 20.3 (10-20) H 03/03/21 23:25 Glucose 89 mg/dl (70-99) 03/03/21 23:25 Calcium 9.1 mg/dl (8.5-10.1) 03/03/21 23:25 Magnesium 2.5 mg/dl (1.8-2.4) H 03/04/21 02:57 Total Bilirubin 0.5 mg/dl (0.2-1) 03/03/21 23:25 AST 28 U/L (15-37) 03/03/21 23:25 ALT 45 U/L (12-78) 03/03/21 23:25 Alkaline Phosphatase 88 U/L (45-117) 03/03/21 23:25 Total Creatine Kinase 49 U/L (39-308) 03/03/21 23:25 CK-MB (CK-2) < 1.0 ng/ml (0.5-3.6) 03/03/21 23:25 CK/CKMB % Calc TNP 03/03/21 23:25 Troponin I < 0.015 ng/ml (0-0.045) 03/04/21 02:57 Total Protein 7.4 gm/dl (6.4-8.2) 03/03/21 23:25 Albumin 3.5 gm/dl (3.4-5.0) 03/03/21 23:25 Globulin 3.9 gm/dl (2.5-4.0) 03/03/21 23:25 Albumin/Globulin Ratio 0.9 (0.9-2) 03/03/21 23:25 Lipase 144 U/L (73-393) 03/03/21 23:25 COVID-19 Eval Order Covid19 at [facility] 03/03/21 23:33 SARS-CoV-2 (PCR) NEGATIVE (Negative) 03/03/21 23:[address] chest initial read: No acute embolus. No focal consolidation. No definite pleural effusion though lung bases are excluded from captured [id number]. No pneumothorax. EKG as per my interpretation : Rate 70, NSR, LAD, LAFB, no ischemia
[2021-03-04] MEDS ORDERED: ACETAMINOPHEN 1,000 MG/100 ML VIAL IV PRN (04:51)
[2021-03-04] MEDS ORDERED: PROMETHAZINE HCL 12.5 MG in SODIUM CHLORIDE 0.9% 50 ML IV PRN (04:51)
[2021-03-04] MEDS ORDERED: NSS + 20MEQ KCL 20 MEQ/1,000 ML BAG IV ONE (04:51)
[2021-03-04] MEDS ORDERED: MoRPHine SULFATE 4 MG/ML 1 ML CARP\\VIAL IV PRN (04:51)
[2021-03-04] MEDS ORDERED: lisinopril 5 MG TAB PO ONE (05:06)
[2021-03-04] MEDS ORDERED: hydrALAZINE HCL 20 MG/ML VIAL IV STA (05:06)
[2021-03-04] MEDS ORDERED: FAMOTIDINE 20 MG in SYRINGE 3 ML IV STA (05:23)
--- NOTE | 2021-03-04 07:43 | Cardiology Consultation ---
Date of Consultation March 04, 2021 Assessment & Plan (1) Chest pain: (2) Hypertension: (3) Orthostatic hypotension: Episode of chest pain in the setting of elevated BP readings Trops negative x2, D-dimer elevated with negative CTA for PE BP controlled this morning- started on lisinopril over night History of orthostatic Hypotension requiring fludrocortisone in the past. BP appears to be very labile, well controlled during daytime hours, rising into the evening and overnight. 1. NPO for dobutamine stress this AM. 2. Continue lisinopril 3. Monitor BP every 4 hours + if necessary Supervising Physician Co-Signing Physician Notes Attending Coating Manager Addendum: I personally performed a history and physical on Mr Canseco. Agree with LIT Walker's findings and plan with additions as noted below. Subjective: Patient seen prior to, during and post dobutamine stress echocardiogram. I followed up with him in the PCU post stress test, where he was accompanied by his spouse. He tolerated the stress test well without any recurrence of symptoms. Exam: Pulm: CTAB Cardio: regular rate and rhythm, no murmurs, no edema Impression: Chest pain, negative EKGs , undetectable serial troponin I measurements -non ischemic dobutamine stress echo Trivial amount of circumferential pericardial fluid noted on echo -ESR normal, CRP minimally elevated, doubt pericarditis Labile BP -has been off of fludrocortisone at home with noted labile HTN Plan: Agree with plan for lisinopril 10 mg daily . Follow up with PCP. History of Present Illness Reason for Consultation: Chest pain, hypertensive urgency Requesting Physician: [facility] Attending Physician: Sol Duvall MD History of Present Illness 75-year-old male initially presented to the emergency department due to complaints of chest discomfort. Over the last 6 weeks blood pressures at home have been running high with systolics in the 200s. Notes that his stopped giving him his fludrocortisone due to these readings, patient was on this medication for many years. The only new thing prior was a COVID-19 vaccination. Last evening on 02/21 patient developed a dull achy left-sided chest discomfort radiating to the left arm. He had no other associated symptoms including diaphoresis or shortness of breath. Blood pressure at home was noted again to be in the 200s and patient presented to the emergency room. Patient was given aspirin and Nitropaste and the chest pain resolved. EKG in ED showed normal sinus rhythm with a left anterior fascicular block, 71 bpmunchanged from previous on 02/22 CBC unremarkable. D-dimer elevated, 830. CTA of the chest negative for PE. BMP unremarkable with a serum creatinine of 0.81 magnesium slightly high at 2.5, troponin negative x2 Patient was started on lisinopril, plans to give total of 10 mg tomorrow am. Upon entrance into the room, patient was resting comfortably in bed without any acute distress. at bedside, patient is very hard of hearing and she helps relay information to the patient. Denies any chest pain or shortness of breath, normally asymptomatic with elevated BP readings. provided a BP log. Appears that blood pressures are well controlled/on lower side in the morning/afternoon and tends to rise in the evenings. Last evening was the first time he developed chest pain with BP reading of 220/112 at home. No palpitations, dizziness, syncope or near syncope. No orthopnea, PND, or increased lower extremity edema. No fever, chills, cough, hematochezia, melena, or hemoptysis. Tele reviewed: SR 60 bpm BP 130/77, as high as 170-200 sbp over night Past medical history: Tonsillar cancer status post chemoradiation/neck dissection COPD Past tobacco use History of orthostatic hypotension Known history of aspiration status post PEG tube placement Gastroparesis Hypothyroidism [place] Allergies Allergy/AdvReac Type Severity Reaction Status Date / Time Nitrate Analogues Allergy Severe DROP IN BP Verified 02/22/21 02:13 sulfamethoxazole Allergy Intermediate ITCHING Verified 02/22/21 02:13 trimethoprim Allergy Intermediate ITCHING Verified 02/22/21 02:13 levofloxacin Allergy Mild rash all Verified 02/22/21 02:13 over body sertraline Allergy Mild NOSE BLEEDS Verified 02/22/21 02:13 terazosin Allergy Unknown DOES NOT Verified 02/22/21 02:13 KNOW Home Medications Medication Instructions Recorded Confirmed Type citalopram 20 mg tablet 20 mg FEEDING TUBE QAM 05/07/18 03/04/21 History food supplemt, lactose-reduced 2 can FEEDING TUBE QID 05/07/18 03/04/21 History (Nutritional Drink) latanoprost 0.005 % eye drops 1 drp OPB HS 01/30/19 03/04/21 History albuterol sulfate 2.5 mg INHALATION Q6H PRN #75 ml 11/01/20 03/04/21 Rx albuterol sulfate 90 mcg/actuation 2 puff INHALATION QID PRN 11/08/20 03/04/21 History aerosol inhaler brimonidine 0.2 % eye drops 1 drp OPB BID 11/08/20 03/04/21 History dextrose 40 % oral gel (Glucose 0 ea PO DIRECTED PRN 01/19/21 03/04/21 History Gel) levothyroxine 75 mcg tablet 75 mcg FEEDING TUBE DAILYBB 01/19/21 03/04/21 History famotidine 20 mg tablet 20 mg FEEDING TUBE BID 03/04/21 03/04/21 History tramadol 50 mg tablet 50 mg PO Q6H PRN 03/04/21 03/04/21 History Patient History Medical History Anxiety Aspiration pneumonia CAN NOT TAKE FOOD/LIQUIDS ORALLY Asthma Benign prostatic hyperplasia (Unknown) Chronic back pain COPD (chronic obstructive pulmonary disease) with emphysema Degenerative disc disease Depression Gastroparesis GERD (gastroesophageal reflux disease) Glaucoma Hypothyroidism Orthostatic hypotension Osteoarthritis Tonsil carcinoma (Unknown) RADIATION AND CHEMO Uses feeding tube Surgical History H/O esophagogastroduodenoscopy (Unknown) WITH PLACEMENT PEG TUBE History of anesthesia reaction SLOW TO WAKE UP History of neck surgery LUMPECTOMY History of tooth extraction S/P arthroscopic knee surgery (Unknown) RT S/P colonoscopy (Unknown) Family History Brother Family history of diabetes mellitus Social History Smoking Status: Never smoker Tobacco Type: Cigarettes Second Hand Exposure: No; Hx Alcohol Use: No Hx Substance Use: No Preferred Language: Portuguese 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 Ability: Effective Residence Life Coordinator Required: No Beliefs That Will Affect Care: None marital status: Current Living Situation: Spouse Other Information That Helps Us Care for You: No Feels Safe at Home: Yes Safety Concerns: Feels Safe At This Time Assistive Devices: None Review of Systems Review of Systems: All systems reviewed & are unremarkable except as noted in HPI & below Physical Exam Physical Exam: General: No acute distress. A+Ox3. HEENT: Normocephalic. Atraumatic. Conjunctiva and sclera clear. NECK: No carotid bruits. No JVD. Carotid upstrokes are brisk. Heart: RRR. No murmur appreciated. Lungs: Clear to auscultation. Intermittent expiratory wheeze. Abdomen: Normal bowel sounds. Soft. Nontender. Extremities: No edema. No clubbing or cyanosis. Pulses: radial=2/4, posterior tibial=2/4, dorsalis pedis = 2/4. NEURO: No focal deficits. PSYCH: Normal. Results & Data ([facility]) Vital Signs (Past 12 Hours) Vital Signs Temp Pulse Pulse Resp BP BP BP 03/04/21 05:36 59 L 130/77 03/04/21 04:51 186/101 H 197/98 H 03/04/21 04:35 36.8 C 66 20 218/116 H 214/101 H 03/04/21 04:00 63 17 159/95 H 03/04/21 03:30 63 17 160/85 H 03/04/21 03:00 66 19 178/103 H 03/04/21 02:30 62 18 184/108 H 03/04/21 02:00 61 14 168/93 H 03/04/21 01:30 61 16 169/102 H 03/04/21 01:00 71 22 172/103 H 03/04/21 00:00 66 15 150/90 H 03/03/21 23:30 66 16 143/88 H 03/03/21 23:21 70 16 170/95 H 03/03/21 23:12 36.2 C L 81 20 185/108 H Pulse Ox 03/04/21 05:36 03/04/21 04:51 03/04/21 04:35 98 03/04/21 04:00 03/04/21 03:30 03/04/21 03:00 03/04/21 02:30 99 03/04/21 02:00 98 03/04/21 01:30 99 03/04/21 01:00 95 03/04/21 00:00 98 03/03/21 23:30 98 03/03/21 23:21 99 03/03/21 23:12 98 Laboratory Results 03/04/21 03/03/21 03/03/21 Range/Units 02:57 23:33 23:33 WBC (4.8-10.8) K/uL RBC (4.7-6.1) M/uL Hgb (14.0-18.0) g/dL Hct (42-52) % MCV (80-100) fL MCH (25-34) pg MCHC (32-36) g/dL RDW Std Deviation (36.4-46.3) fL RDW Coeff of Judy (11.5-14.5) % Plt Count (130-400) K/uL MPV (7.4-10.4) fL Immature Gran % (Auto) % Neut % (Auto) % Lymph % (Auto) % Cecil % (Auto) % Eos % (Auto) % Baso % (Auto) % Neut # (Auto) (1.4-6.5) K/uL Lymph # (Auto) (1.2-3.4) K/uL Cecil # (Auto) (0.11-0.59) K/uL Eos # (Auto) (0-0.5) K/uL Baso # (Auto) (0-0.2) K/uL Immature Gran # (Auto) (0.00-0.02) K/uL APTT (21.0-31.0) Seconds PTT Ratio Sodium (136-145) mmol/L Potassium (3.5-5.1) mmol/L Chloride (98-107) mmol/L Carbon Dioxide (21-32) mmol/L Anion Gap (3-11) BUN (7-18) mg/dl Creatinine (0.6-1.4) mg/dl Est Cr Clr Drug Dosing ml/min Est GFR ( Amer) ml/min Est GFR (Non-Af Amer) ml/min BUN/Creatinine Ratio (10-20) Glucose (70-99) mg/dl Calcium (8.5-10.1) mg/dl Magnesium 2.5 H (1.8-2.4) mg/dl Total Bilirubin (0.2-1) mg/dl AST (15-37) U/L ALT (12-78) U/L Alkaline Phosphatase (45-117) U/L Total Creatine Kinase (39-308) U/L CK-MB (CK-2) (0.5-3.6) ng/ml CK/CKMB % Calc Troponin I < 0.015 (0-0.045) ng/ml Total Protein (6.4-8.2) gm/dl Albumin (3.4-5.0) gm/dl Globulin (2.5-4.0) gm/dl Albumin/Globulin Ratio (0.9-2) Lipase (73-393) U/L COVID-19 Eval Order Covid19 at [facility] SARS-CoV-2 (PCR) NEGATIVE (Negative) 03/03/21 03/03/21 03/03/21 Range/Units 23:25 23:25 23:25 WBC 5.70 (4.8-10.8) K/uL RBC 4.49 L (4.7-6.1) M/uL Hgb 15.1 (14.0-18.0) g/dL Hct 44.1 (42-52) % MCV 98.2 (80-100) fL MCH 33.6 (25-34) pg MCHC 34.2 (32-36) g/dL RDW Std Deviation 47.1 H (36.4-46.3) fL RDW Coeff of Judy 13.1 (11.5-14.5) % Plt Count 157 (130-400) K/uL MPV 11.5 H (7.4-10.4) fL Immature Gran % (Auto) 0.2 % Neut % (Auto) 62.5 % Lymph % (Auto) 21.2 % Cecil % (Auto) 11.1 % Eos % (Auto) 4.6 % Baso % (Auto) 0.4 % Neut # (Auto) 3.57 (1.4-6.5) K/uL Lymph # (Auto) 1.21 (1.2-3.4) K/uL Cecil # (Auto) 0.63 H (0.11-0.59) K/uL Eos # (Auto) 0.26 (0-0.5) K/uL Baso # (Auto) 0.02 (0-0.2) K/uL Immature Gran # (Auto) 0.01 (0.00-0.02) K/uL APTT 28.2 (21.0-31.0) Seconds PTT Ratio 1.1 Sodium 138 (136-145) mmol/L Potassium 3.7 (3.5-5.1) mmol/L Chloride 104 (98-107) mmol/L Carbon Dioxide 30 (21-32) mmol/L Anion Gap 4.0 (3-11) BUN 16 (7-18) mg/dl Creatinine 0.81 (0.6-1.4) mg/dl Est Cr Clr Drug Dosing 85.4 ml/min Est GFR ( Amer) 102.2 ml/min Est GFR (Non-Af Amer) 88.2 ml/min BUN/Creatinine Ratio 20.3 H (10-20) Glucose 89 (70-99) mg/dl Calcium 9.1 (8.5-10.1) mg/dl Magnesium (1.8-2.4) mg/dl Total Bilirubin 0.5 (0.2-1) mg/dl AST 28 (15-37) U/L ALT 45 (12-78) U/L Alkaline Phosphatase 88 (45-117) U/L Total Creatine Kinase 49 (39-308) U/L CK-MB (CK-2) < 1.0 (0.5-3.6) ng/ml CK/CKMB % Calc TNP Troponin I < 0.015 (0-0.045) ng/ml Total Protein 7.4 (6.4-8.2) gm/dl Albumin 3.5 (3.4-5.0) gm/dl Globulin 3.9 (2.5-4.0) gm/dl Albumin/Globulin Ratio 0.9 (0.9-2) Lipase 144 (73-393) U/L COVID-19 Eval Order SARS-CoV-2 (PCR) (Negative) Diagnostic Findings EKG 03/04/2021 NSR, LAFB, 66 bpm (1) Hypertension Hypertension type: unspecified Qualified Code(s): I10 - Essential (primary) hypertension
[2021-03-04] MEDS ORDERED: ALBUT/IPRATROP 3MG/0.5MG NEB 3 ML VIAL NEB PRN (07:55)
[2021-03-04] MEDS ORDERED: LEVOTHYROXINE SODIUM 88 MCG TABLET PEG SCH (08:00)
--- NOTE | 2021-03-04 08:10 | XRay Report ---
XR chest 1V portable HISTORY: Left-sided Chest Pain COMPARISON: Chest 01/05/2021. FINDINGS: The lungs are clear. Cardiac silhouette is normal in size. No pleural effusions. No pneumot horax. IMPRESSION: No acute process. ACT 112: Negative or not required by law. Electronically signed by: Rylan Archuleta M.D. 03/04/2021 8:08 AM
--- NOTE | 2021-03-04 08:38 | CT Scan Report ---
CT angio chest PE protocol CT DOSE: 369.47 mGy.cm HISTORY: 75 years-old Male with PE. Acute cough with shortness of breath TECHNIQUE: Multiple CTA images of the chest were obtained after the intravenous administration of 118 ml Optiray. Coronal and sagittal MIPS were obtained from the axial data set and were submitted for review. All measurements were obtained according to NASCET criteria. A dose lowering technique was u tilized adhering to the principles of ALARA. COMPARISON: Chest radiograph 03/03/2021, CTA chest 11/01/2020 FINDINGS: CTA: The heart is normal in size without pericardial effusion. Mild coronary artery calcifications. No tho racic aortic aneurysm or dissection. Patency of the imaged great vessels. Pulmonary arterial tree is unremarkable. No pulmonary emboli identified. CT CHEST: Thyroid is either atrophic or surgically absent. Mildly enlarged subcarinal lymph node, 10 mm is unch anged and likely benign. No pneumothorax, pleural effusion, lobar airspace consolidation or overt pul monary edema. Mild bronchial wall thickening. 5 mm solid nodule the right lower lobe on image 54 seri es 4 is unchanged. 6 mm subpleural solid nodule the basal right lower lobe on image 4 is also stable. 8 mm fissural nodule of the right middle lobe on image 112 is unchanged. These are likely benign. No new or enlarging pulmonary nodules. Scattered calcified ferguson limit. Mild tree-in-bud nodules of the right middle lobe. The inferior lung bases are only partially imaged. Central airways are patent. No acute process of the imaged upper abdomen. Unchanged probable cyst of the left hepatic lobe, 11 mm . Degenerative changes of the shoulders and spine. Left shoulder rotator cuff calcific tendinosis. No acute fracture. IMPRESSION: 1. No pulmonary emboli. 2. Mild bronchial wall thickening suggestive of bronchitis or reactive airway disease. 3. Subtle tree-in-bud nodules of the right middle lobe are suggestive of an infectious or inflammator y bronchiolitis. 4. Unchanged mild subcarinal adenopathy, likely reactive. ACT 112: Negative or not required by law. The above report was generated using voice recognition software. It may contain grammatical, syntax o r spelling errors. Electronically signed by: Yehuda Luna M.D. 03/04/2021 8:37 AM
[2021-03-04] MEDS ORDERED: busPIRone 5 MG TAB PEG SCH (09:00)
[2021-03-04] MEDS ORDERED: CITALOPRAM 20 MG TAB PEG SCH (09:00)
[2021-03-04] MEDS ORDERED: ENOXAPARIN INJ 40 MG/0.4 ML SYR SQ SCH (09:00)
[2021-03-04] MEDS ORDERED: BRIMONIDINE TART 0.2% OP SOLN PER DROP CHARGE OPB SCH (09:00)
[2021-03-04] MEDS ORDERED: DOBUTamine HCL 12.5 MG/ML 20 ML VIAL IV ONE (10:03)
[2021-03-04] MEDS ORDERED: METOPROLOL TARTRATE 1 MG/ML VIAL IV ONE (10:03)
[2021-03-04] MEDS ORDERED: ATROPINE SULFATE 0.1 MG/ML 10ML SYR IV ONE (10:03)
--- NOTE | 2021-03-04 15:59 | Discharge Summary ---
Date of Service March 04, 2021 Admission HPI Per Admitting Provider History obtained from patient, family, and records. Limited history from patient secondary to marked hearing impairment. Medical history is significant for tonsillar cancer status post chemoradiation/neck dissection, COPD, past tobacco abuse, hx orthostatic hypotension, known aspiration risk sp PEG tube placement, gastroparesis, hypothyroidism. Last confinement January 2020 for chest pain. Dobutamine stress echo was negative. Patient blood pressure at home has been high the last 6 weeks. SBP 200s. Patient stopped giving patient fludrocortisone which patient has been taking for years for low blood pressure. No chest pain, no shortness of breath, no unusual stress at home. Only thing new was COVID-19 vaccination as per . Patient seen at the ER last month but subsequently discharged. SBP however 100s on follow-up with PCP a few days later. Recent ER visit 10 days ago for uncontrolled BP without symptoms. SBP 180-220s. ER provider advised patient's to keep blood pressure log. Last night, patient noted achy left-sided discomfort radiating to be left arm. No cough symptoms, no diaphoresis, no unusual shortness of breath. No headache symptoms. SBP noted to be 200s at home. At the ER, patient given aspirin and Nitropaste. Chest pain resolved. MEDICAL HISTORY: As above. SURGERIES: He has had neck/reconstruction surgery, lymph node dissection, knee surgery, dental surgery. FAMILY HISTORY: Diabetes, heart disease, COPD PERSONAL AND SOCIAL HISTORY: Past tobacco abuse. 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 Discharge Data Allergies Allergy/AdvReac Type Severity Reaction Status Date / Time Nitrate Analogues Allergy Severe DROP IN BP Verified 02/22/21 02:13 sulfamethoxazole Allergy Intermediate ITCHING Verified 02/22/21 02:13 trimethoprim Allergy Intermediate ITCHING Verified 02/22/21 02:13 levofloxacin Allergy Mild rash all Verified 02/22/21 02:13 over body sertraline Allergy Mild NOSE BLEEDS Verified 02/22/21 02:13 terazosin Allergy Unknown DOES NOT Verified 02/22/21 02:13 KNOW Consultations 03/04/21 02:34 ED Decision to Admit Stat 03/04/21 04:21 Consult Cardiology Routine 03/04/21 04:51 Consult Cardiology Routine Ordered Studies 03/03/21 23:53 CT angio chest PE protocol Urgent Hospital Course (1) Chest pain: Chest pain: Secondary to uncontrolled hypertension rule out ACS given patient risk factors and relief with nitroglycerin. hx tonsillar cancer status post chemoradiation/neck dissection, COPD, not in acute exacerbation hx orthostatic hypotension, patient off fludrocortisone for 2 months now since BP started going up hypothyroidism. recent outpatient TSH slightly elevated Past tobacco abuse OBS PCU Initiate lisinopril Follow troponin Aspirin for CAD prevention until ACS ruled out Cardiology consult Re: Chest pain relieved by nitroglycerin N.p.o. until patient seen by Cardiology in anticipation of procedure. DVT prophylaxis per Lovenox subcu Full code Patient's requesting updates providers. Ms. Dalila Canseco, contact #[phone]. Text document was generated using [employer] voice recognition software. It may contain grammatical or spelling errors. Kindly contact undersigned for clarification of any documentation item in question. Discharge Plan Discharge Items Reason For Visit: CP Follow-up/Referrals: Sanjiv Hart MD [Primary Care Provider] - Medications and DC Order Prescriptions: No Action latanoprost 0.005 % Drops 1 drp OPB HS RF: 0 citalopram 20 mg tablet 20 mg Feeding Tube QAM RF: 0 Nutritional Drink Liquid 2 can Feeding Tube QID RF: 0 brimonidine 0.2 % drops 1 drp OPB BID RF: 0 albuterol sulfate 90 mcg/actuation HFA aerosol inhaler 2 puff INHALATION QID PRN (Reason: Shortness Of Breath) RF: 0 albuterol sulfate 2.5 mg /3 mL (0.083 %) solution for nebulization 2.5 mg inhalation Q6H PRN (Reason: bronchospasm) Qty: 75 RF: 0 levothyroxine 75 mcg Tablet 75 mcg feeding tube DAILYBB RF: 0 dextrose [Glucose Gel] 40 % Gel 0 ea PO DIRECTED PRN (Reason: LOW BLOOD SUGARS) RF: 0 tramadol 50 mg tablet 50 mg PO Q6H PRN (Reason: Pain) RF: 0 famotidine 20 mg Tablet 20 mg feeding tube BID RF: 0 Admission Data Admit Date/Time: 03/04/21 03:49 Attending Provider: Sol Duvall Admit Provider: Tirso Guillory Primary Care Provider: Sanjiv Hart Other Providers: Tirso Guillory ; Ivan Brown ; Chepe Jacques ; Freedom Ennis ; Mari Hercules. ; Jose Luis Navarro ; Khadar Francois ; Naeem Arredondo ; Blane Rico ; Elvia Murillo ; Inna Olvera
[2021-03-04] MEDS ORDERED: FIBERSOURCE HN 1.2 CAL 1000 ML BAG GT SCH (16:00)
--- NOTE | 2021-03-04 16:52 | Electrocardiogram Report ---
Test Reason : Blood Pressure : / mmHG Vent. Rate : 071 BPM Atrial Rate : 071 BPM P-R Int : 152 ms QRS Dur : 092 ms QT Int : 392 ms P-R-T Axes : 063 -49 053 degrees QTc Int : 425 ms Normal sinus rhythm Left anterior fascicular block Abnormal ECG When compared with ECG of 22-FEB-2021 01:33, No significant change was found Confirmed by Soto Moore ([id number]) on 03/04/2021 4:52:10 PM Referred By: REFERRED SELF Confirmed By:Soto Moore
--- NOTE | 2021-03-04 16:57 | Electrocardiogram Report ---
Test Reason : Blood Pressure : / mmHG Vent. Rate : 066 BPM Atrial Rate : 066 BPM P-R Int : 146 ms QRS Dur : 086 ms QT Int : 414 ms P-R-T Axes : 040 -46 039 degrees QTc Int : 434 ms Normal sinus rhythm Left anterior fascicular block Abnormal ECG When compared with ECG of 03-MAR-2021 23:18, (unconfirmed) No significant change was found Confirmed by Soto Moore ([id number]) on 03/04/2021 4:57:12 PM Referred By: REFERRED SELF Confirmed By:Soto Moore
[2021-03-04] MEDS ORDERED: FAMOTIDINE 20 MG TAB JT SCH (21:00)
[2021-03-04] MEDS ORDERED: LATANOPROST 0.005% OP SOLN 2.5 ML BTL OPB SCH (21:00)
[2021-03-05] MEDS ORDERED: lisinopril 2.5 MG TAB PO SCH (09:00)
[2021-03-05] MEDS ORDERED: ASPIRIN 81 MG CHEW PEG SCH (09:00)
[2021-03-05] MEDS ORDERED: lisinopril 10 MG TAB PO SCH (09:00)
== END 2021-03-04 17:21 | disposition home or self-care (01) ==
LOC: 2S 23:10 → ED 23:10 → 2S 03-04 04:25
DX: R07.9 Chest pain, unspecified; Z79.899 Other long term (current) drug therapy; Z92.21 Personal history of antineoplastic chemotherapy; Z92.3 Personal history of irradiation; J45.909 Unspecified asthma, uncomplicated; E03.9 Hypothyroidism, unspecified; I95.1 Orthostatic hypotension; K31.84 Gastroparesis; I16.0 Hypertensive urgency; Z88.2 Allergy status to sulfonamides; Z20.822 Contact with and (suspected) exposure to COVID-19; Z79.890 Hormone replacement therapy; Z88.8 Allergy status to other drugs, medicaments and biological substances

== ENCOUNTER 2021-03-06 11:04 | Inpatient (IN) ==
[2021-03-06] MEDS ORDERED: SODIUM CHLORIDE 0.9% 1000ML 1,000 ML IV SCH (11:30)
[2021-03-06 11:43] LABS: Basophils # (auto) 0.02 K/uL (0-0.2); Basophils % (auto) 0.4 %; Eosinophils # (auto) 0.25 K/uL (0-0.5); Eosinophils % (auto) 4.6 %; Hematocrit (blood only) 43.3 % (42-52); Hemoglobin 14.5 g/dL (14.0-18.0); Immature Granulocytes # (auto) 0.02 K/uL (0.00-0.02); Immature Granulocytes % (auto) 0.4 %; Lymphocytes # (auto) 1.04 K/uL (1.2-3.4); Mean Corpuscular Hemoglobin 33.6 pg (25-34); Mean Corpuscular Hgb Conc 33.5 g/dL (32-36); Mean Corpuscular Volume 100.5 fL (80-100); Mean Platelet Volume 11.7 fL (7.4-10.4); Monocytes # (auto) 0.72 K/uL (0.11-0.59); Monocytes % (auto) 13.2 %; Neutrophils # (auto) 3.41 K/uL (1.4-6.5); Neutrophils % (auto) 62.4 %; Platelet Count 154 K/uL (130-400); RDW Coefficient of Variation 13.3 % (11.5-14.5); RDW Standard Deviation 49.3 fL (36.4-46.3); Red Blood Count 4.31 M/uL (4.7-6.1); White Blood Count 5.46 K/uL (4.8-10.8)
[2021-03-06 12:02] LABS: Alanine Aminotransferase 39 U/L (12-78); Albumin Level 3.3 gm/dl (3.4-5.0); Aspartate Aminotransferase 23 U/L (15-37); BUN Creatinine Ratio 17.8 (10-20); Blood Urea Nitrogen 21 mg/dl (7-18); Calcium 9.1 mg/dl (8.5-10.1); Carbon Dioxide 27 mmol/L (21-32); Chloride 110 mmol/L (98-107); Est GFR (African American) 69.8 ml/min; Est GFR (Non-African American) 60.2 ml/min; Glucose 74 mg/dl (70-99); Potassium 3.8 mmol/L (3.5-5.1); Sodium 141 mmol/L (136-145)
--- NOTE | 2021-03-06 12:11 | Emergency Department Note ---
History of Present Illness General Chief complaint: Hypotension Stated complaint: LOW BLOOD PRESSURE 60/40,DIZZY Time Seen by Provider: 03/06/21 11:20 History of Present Illness 75-year-old male presents to the ED with a chief complaint of low blood pressure. The patient was discharged on Wednesday, per the , from the hospital. She states that he was in the hospital for high blood pressure. He was started on lisinopril 10 mg. He did not have his medication today. He was feeling lightheaded last night and she checked his blood pressure and it was 60/40. He drank some fluid and ate a salty meal and his blood pressure did improve transiently up to 140/80 but then dropped again about an hour later to 60/40. His blood pressure was still low this morning and he was lightheaded and she brought him into the ED for evaluation. Patient is somewhat of a poor historian. He is difficult to understand. He does complain of some bilateral shoulder pain which the states is mostly chronic. No recent trauma. Home Medications Medication Instructions Recorded Confirmed Type citalopram 20 mg tablet 20 mg FEEDING TUBE QAM 05/07/18 03/06/21 History food supplemt, lactose-reduced 2 can FEEDING TUBE QID 05/07/18 03/06/21 History (Nutritional Drink) latanoprost 0.005 % eye drops 1 drp OPB HS 01/30/19 03/06/21 History albuterol sulfate 2.5 mg INHALATION Q6H PRN #75 ml 11/01/20 03/06/21 Rx albuterol sulfate 90 mcg/actuation 2 puff INHALATION QID PRN 11/08/20 03/06/21 History aerosol inhaler brimonidine 0.2 % eye drops 1 drp OPB BID 11/08/20 03/06/21 History levothyroxine 75 mcg tablet 75 mcg FEEDING TUBE DAILYBB 01/19/21 03/06/21 History famotidine 20 mg tablet 20 mg FEEDING TUBE BID 03/04/21 03/06/21 History lisinopril 10 mg tablet 10 mg PO QAM #30 tab 03/04/21 03/06/21 Rx tramadol 50 mg tablet 50 mg PO Q6H PRN 03/04/21 03/06/21 History acetaminophen 500 mg tablet 1,000 mg PO Q6H PRN 03/06/21 03/06/21 History (Tylenol Extra Strength) Allergies Allergy/AdvReac Type Severity Reaction Status Date / Time Nitrate Analogues Allergy Severe DROP IN BP Verified 03/06/21 13:39 sulfamethoxazole Allergy Intermediate ITCHING Verified 03/06/21 13:39 trimethoprim Allergy Intermediate ITCHING Verified 03/06/21 13:39 levofloxacin Allergy Mild rash all Verified 03/06/21 13:39 over body sertraline Allergy Mild NOSE BLEEDS Verified 03/06/21 13:39 terazosin Allergy Unknown DOES NOT Verified 03/06/21 13:39 KNOW Past Med/Surg History Medical History (Updated 03/06/21 @ 14:17 by Cheo Perez DO) Anxiety Aspiration pneumonia CAN NOT TAKE FOOD/LIQUIDS ORALLY Asthma Benign prostatic hyperplasia (Unknown) Chronic back pain COPD (chronic obstructive pulmonary disease) with emphysema Degenerative disc disease Depression Gastroparesis GERD (gastroesophageal reflux disease) Glaucoma Hypertension Hypothyroidism Osteoarthritis Tonsil carcinoma (Unknown) RADIATION AND CHEMO Uses feeding tube Surgical History H/O esophagogastroduodenoscopy (Unknown) WITH PLACEMENT PEG TUBE History of anesthesia reaction SLOW TO WAKE UP History of neck surgery LUMPECTOMY History of tooth extraction S/P arthroscopic knee surgery (Unknown) RT S/P colonoscopy (Unknown) Family History Brother Family history of diabetes mellitus Social History Smoking Status: Never smoker Tobacco Type: Cigarettes Second Hand Exposure: No; Hx Alcohol Use: No Hx Substance Use: No Preferred Language: Zambian 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 Ability: Effective Driver License Technician Required: No Beliefs That Will Affect Care: None marital status: Current Living Situation: Spouse Feels Safe at Home: Yes Assistive Devices: None Review of Systems A total of 10 systems reviewed and were otherwise negative Physical Exam Vital Signs Vital Signs - 24 hr 03/06/21 11:09 03/06/21 11:24 03/06/21 11:30 Temperature 36.6 C Temperature Source Temporal Artery Scan Pulse Rate 65 58 L 57 L Pulse Rate from SpO2 Sensor 58 L 57 L Pulse Rhythm Regular Pulse Strength Normal Respiratory Rate 20 17 18 Respiratory Effort / Characteristics Non-Labored Spontaneous Respiratory Depth Normal Blood Pressure 64/44 L 69/44 L 63/45 L Blood Pressure Mean 50 52 51 Pulse Oximetry 97 96 94 Oxygen Delivery Method Room Air Sepsis Recent Fever Within 48 Hours No Sepsis New/Unexplained Change in Mental Status No Sepsis Action Taken by Nursing No Action Required 03/06/21 11:44 03/06/21 11:45 03/06/21 12:00 Temperature Temperature Source Pulse Rate 55 L 57 L Pulse Rate from SpO2 Sensor Pulse Rhythm Pulse Strength Respiratory Rate 22 16 Respiratory Effort / Characteristics Respiratory Depth Blood Pressure 89/53 L 91/55 L Blood Pressure Mean 65 67 Pulse Oximetry Oxygen Delivery Method Room Air Sepsis Recent Fever Within 48 Hours Sepsis New/Unexplained Change in Mental Status Sepsis Action Taken by Nursing 03/06/21 12:16 03/06/21 12:30 03/06/21 12:45 Temperature Temperature Source Pulse Rate 56 L 58 L 62 Pulse Rate from SpO2 Sensor 57 L 62 Pulse Rhythm Pulse Strength Respiratory Rate 17 18 18 Respiratory Effort / Characteristics Respiratory Depth Blood Pressure 84/54 L 92/57 L 113/64 Blood Pressure Mean 64 68 80 Pulse Oximetry 93 94 Oxygen Delivery Method Sepsis Recent Fever Within 48 Hours Sepsis New/Unexplained Change in Mental Status Sepsis Action Taken by Nursing 03/06/21 13:00 03/06/21 13:15 03/06/21 13:30 Temperature Temperature Source Pulse Rate 58 L 60 58 L Pulse Rate from SpO2 Sensor 58 L 60 58 L Pulse Rhythm Pulse Strength Respiratory Rate 18 16 17 Respiratory Effort / Characteristics Respiratory Depth Blood Pressure 100/61 118/68 106/65 Blood Pressure Mean 74 84 78 Pulse Oximetry 96 93 94 Oxygen Delivery Method Sepsis Recent Fever Within 48 Hours Sepsis New/Unexplained Change in Mental Status Sepsis Action Taken by Nursing CONSTITUTIONAL/VITAL SIGNS: Reviewed / noted above. GENERAL: Non-toxic in appearance. INTEGUMENTARY: Warm, dry, and [place]. HEAD: Normocephalic. EYES: without scleral icterus or trauma. ENT/OROPHARYNX: clear and moist. LYMPHADENOPATHY/NECK: Is supple without lymphadenopathy or meningismus. RESPIRATORY: Clear to auscultation bilaterally. No increased work of breathing. CARDIOVASCULAR: Regular rate and rhythm. GI/ABDOMEN: Soft and nontender. No organomegaly or pulsatile mass. EXTREMITIES: Warm and well perfused. BACK: No CVA tenderness. NEUROLOGICAL: Intact without focal deficits. Speech is difficult to understand at baseline. PSYCHIATRIC: normal affect. MUSCULOSKELETAL: Normally developed with good muscle tone. TRIAGE NURSING DOCUMENTATION REVIEWED. Course Administered Medications Discontinued Medications Sodium Chloride (Nss 1000ml) 1,000 mls @ 999 mls/hr IV .Q1H1M GIRISH Stop: 03/06/21 12:30 Last Infusion: 03/06/21 12:33 Dose: 0 mls/hr Documented by: [id number] Admin: 03/06/21 11:46 Dose: 999 mls/hr Documented by: [id number] Sodium Chloride (Nss 1000ml) 1,000 mls @ 999 mls/hr IV .Q1H1M ONE Stop: 03/06/21 13:30 Last Infusion: 03/06/21 13:39 Dose: 0 mls/hr Documented by: [id number] Admin: 03/06/21 12:33 Dose: 999 mls/hr Documented by: [id number] Medical Decision Making Differential Diagnosis Differential includes acute coronary syndrome, myocardial infarction, CVA, TIA, anemia, infection, pneumonia, UTI, pyelonephritis, poor nutrition, dehydration, electrolyte disturbance,hypoglycemia. Medical Records Attestation: I reviewed the patient's medical records. Home Medications Current Medication List: was personally reviewed by me Laboratory Data Attestation: I reviewed the patient's lab results. Result diagrams: 03/06/21 11:20 03/06/21 11:20 Lab Results 03/06/21 03/06/21 03/06/21 Range/Units 11:20 11:20 11:40 WBC 5.46 (4.8-10.8) K/uL RBC 4.31 L (4.7-6.1) M/uL Hgb 14.5 (14.0-18.0) g/dL Hct 43.3 (42-52) % MCV 100.5 H (80-100) fL MCH 33.6 (25-34) pg MCHC 33.5 (32-36) g/dL RDW Std Deviation 49.3 H (36.4-46.3) fL RDW Coeff of Judy 13.3 (11.5-14.5) % Plt Count 154 (130-400) K/uL MPV 11.7 H (7.4-10.4) fL Immature Gran % (Auto) 0.4 % Neut % (Auto) 62.4 % Lymph % (Auto) 19.0 % Dane % (Auto) 13.2 % Eos % (Auto) 4.6 % Baso % (Auto) 0.4 % Neut # (Auto) 3.41 (1.4-6.5) K/uL Lymph # (Auto) 1.04 L (1.2-3.4) K/uL Dane # (Auto) 0.72 H (0.11-0.59) K/uL Eos # (Auto) 0.25 (0-0.5) K/uL Baso # (Auto) 0.02 (0-0.2) K/uL Immature Gran # (Auto) 0.02 (0.00-0.02) K/uL Sodium 141 (136-145) mmol/L Potassium 3.8 (3.5-5.1) mmol/L Chloride 110 H (98-107) mmol/L Carbon Dioxide 27 (21-32) mmol/L Anion Gap 4.0 (3-11) BUN 21 H (7-18) mg/dl Creatinine 1.19 (0.6-1.4) mg/dl Est Cr Clr Drug Dosing Not Reportable Est GFR ( Amer) 69.8 ml/min Est GFR (Non-Af Amer) 60.2 ml/min BUN/Creatinine Ratio 17.8 (10-20) Glucose 74 (70-99) mg/dl Lactate 1.6 (0.4-2.0) mmol/L Calcium 9.1 (8.5-10.1) mg/dl Total Bilirubin 0.6 (0.2-1) mg/dl AST 23 (15-37) U/L ALT 39 (12-78) U/L Alkaline Phosphatase 79 (45-117) U/L Total Creatine Kinase 40 (39-308) U/L Troponin I < 0.015 (0-0.045) ng/ml Total Protein 7.0 (6.4-8.2) gm/dl Albumin 3.3 L (3.4-5.0) gm/dl Globulin 3.7 (2.5-4.0) gm/dl Albumin/Globulin Ratio 0.9 (0.9-2) TSH 1.870 (0.300-4.500) uIu/ml Urine Color Urine Appearance (Clear) Urine pH (4.5-7.5) Ur Specific Allison (1.000-1.030) Urine Protein (Negative) Urine Glucose (UA) (Negative) Urine Ketones (Negative) Urine Blood (Negative) Urine Nitrite (Negative) Urine Bilirubin (Negative) Urine Urobilinogen (Negative) Ur Leukocyte Esterase (Negative) 03/06/21 Range/Units 12:58 WBC (4.8-10.8) K/uL RBC (4.7-6.1) M/uL Hgb (14.0-18.0) g/dL Hct (42-52) % MCV (80-100) fL MCH (25-34) pg MCHC (32-36) g/dL RDW Std Deviation (36.4-46.3) fL RDW Coeff of Judy (11.5-14.5) % Plt Count (130-400) K/uL MPV (7.4-10.4) fL Immature Gran % (Auto) % Neut % (Auto) % Lymph % (Auto) % Dane % (Auto) % Eos % (Auto) % Baso % (Auto) % Neut # (Auto) (1.4-6.5) K/uL Lymph # (Auto) (1.2-3.4) K/uL Dane # (Auto) (0.11-0.59) K/uL Eos # (Auto) (0-0.5) K/uL Baso # (Auto) (0-0.2) K/uL Immature Gran # (Auto) (0.00-0.02) K/uL Sodium (136-145) mmol/L Potassium (3.5-5.1) mmol/L Chloride (98-107) mmol/L Carbon Dioxide (21-32) mmol/L Anion Gap (3-11) BUN (7-18) mg/dl Creatinine (0.6-1.4) mg/dl Est Cr Clr Drug Dosing Est GFR ( Amer) ml/min Est GFR (Non-Af Amer) ml/min BUN/Creatinine Ratio (10-20) Glucose (70-99) mg/dl Lactate (0.4-2.0) mmol/L Calcium (8.5-10.1) mg/dl Total Bilirubin (0.2-1) mg/dl AST (15-37) U/L ALT (12-78) U/L Alkaline Phosphatase (45-117) U/L Total Creatine Kinase (39-308) U/L Troponin I (0-0.045) ng/ml Total Protein (6.4-8.2) gm/dl Albumin (3.4-5.0) gm/dl Globulin (2.5-4.0) gm/dl Albumin/Globulin Ratio (0.9-2) TSH (0.300-4.500) uIu/ml Urine Color Yellow Urine Appearance Clear (Clear) Urine pH 6.5 (4.5-7.5) Ur Specific Allison 1.006 (1.000-1.030) Urine Protein Negative (Negative) Urine Glucose (UA) Negative (Negative) Urine Ketones Negative (Negative) Urine Blood Negative (Negative) Urine Nitrite Negative (Negative) Urine Bilirubin Negative (Negative) Urine Urobilinogen Negative (Negative) Ur Leukocyte Esterase Negative (Negative) Imaging Data Radiologist's Impression: Chest X-Ray 03/06/21 11:29 XR chest 1V portable CLINICAL HISTORY: weakness COMPARISON STUDY: March 03, 2021 FINDINGS: No pneumothorax. No pleural effusion. Minimal atelectasis is seen at the left base. The rest of lung parenchyma is clear. Cardiomediastinal silhouette is within normal limits in size. No significant pulmonary vascular congestion.. Aorta is calcified. Osseous structures: Unremarkable. Vertebral bodies are not well seen. IMPRESSION: 1. Minimal atelectasis at the left base. ACT 112: Negative or not required by law. The above report was generated using voice recognition software. It may contain grammatical, syntax or spelling errors. Electronically signed by: Lucy Jaime DO 03/06/2021 1:02 PM ECG Data Attestation: I personally reviewed and interpreted this ECG as follows: MDM Narrative Patient presents to the ED with a chief complaint of low blood pressure as per the . Patient has no specific complaints. Blood pressure was 64/44 and improved to 91/55 after 1 L of IV fluids. The patient was then given a second liter of IV fluid in the blood pressure was into the 110s systolic. The very last blood pressure checked while I was disposition the patient dropped down to about 90 systolic. The patient's blood work did not show any concerning abnormalities other than a BUN of 21. His troponin was negative. TSH was normal. CBC was unremarkable. Urine did not show infection and a chest x-ray was negative for acute disease. The patient's felt uncomfortable with taking him home due to his labile blood pressures. He will be observed in the hospital by the hospitalist service for further evaluation and care. Impression & Plan Acute hypotension, Acute dehydration Discharge Plan Visit Data Chief Complaint: Hypotension Stated Complaint: LOW BLOOD PRESSURE 60/40,DIZZY ED Provider: Cheo Perez Discharge Problem: Acute hypotension, Acute dehydration Patient Disposition: Being Evaluated by Hospitalist Forms Stand Alone Forms: [facility], Virtual Emergency Department, Important Visit Information Prescriptions Prescriptions: No Action latanoprost 0.005 % Drops 1 drp OPB HS RF: 0 citalopram 20 mg tablet 20 mg Feeding Tube QAM RF: 0 Nutritional Drink Liquid 2 can Feeding Tube QID RF: 0 brimonidine 0.2 % drops 1 drp OPB BID RF: 0 albuterol sulfate 90 mcg/actuation HFA aerosol inhaler 2 puff INHALATION QID PRN (Reason: Shortness Of Breath) RF: 0 acetaminophen [Tylenol Extra Strength] 500 mg Tablet 1,000 mg PO Q6H PRN (Reason: Pain) RF: 0 albuterol sulfate 2.5 mg /3 mL (0.083 %) solution for nebulization 2.5 mg inhalation Q6H PRN (Reason: bronchospasm) Qty: 75 RF: 0 levothyroxine 75 mcg Tablet 75 mcg feeding tube DAILYBB RF: 0 tramadol 50 mg tablet 50 mg PO Q6H PRN (Reason: Pain) RF: 0 famotidine 20 mg Tablet 20 mg feeding tube BID RF: 0 lisinopril 10 mg Tablet 10 mg PO QAM Qty: 30 RF: 0 Referrals Referrals: Sanjiv Hart MD [Primary Care Provider] -
[2021-03-06 12:13] LABS: Albumin Globulin Ratio 0.9 (0.9-2); Alkaline Phosphatase 79 U/L (45-117); Bilirubin,Total 0.6 mg/dl (0.2-1); Creatine Kinase 40 U/L (39-308); Globulin 3.7 gm/dl (2.5-4.0); Troponin I < 0.015 ng/ml (0-0.045)
[2021-03-06] MEDS ORDERED: SODIUM CHLORIDE 0.9% 1000ML 1,000 ML IV ONE (12:30)
--- NOTE | 2021-03-06 13:03 | XRay Report ---
XR chest 1V portable CLINICAL HISTORY: weakness COMPARISON STUDY: March 03, 2021 FINDINGS: No pneumothorax. No pleural effusion. Minimal atelectasis is seen at the left base. The rest of lung parenchyma is clear. Cardiomediastinal silhouette is within normal limits in size. No significant pulmonary vascular congestion.. Aorta is calcified. Osseous structures: Unremarkable. Vertebral bodies are not well seen. IMPRESSION: 1. Minimal atelectasis at the left base. ACT 112: Negative or not required by law. The above report was generated using voice recognition software. It may contain grammatical, syntax o r spelling errors. Electronically signed by: Lucy Jaime DO 03/06/2021 1:02 PM
[2021-03-06 13:10] LABS: Appearance Urine Clear (Clear); Bilirubin Urine Negative (Negative); Blood Urine Negative (Negative); Color Urine Yellow; Glucose Urine UA Negative (Negative); Ketones Urine Negative (Negative); Leukocyte Esterase Urine Negative (Negative); Nitrite Urine Negative (Negative); Protein Urine Negative (Negative); Specific Gravity Urine 1.006 (1.000-1.030); Urobilinogen Urine Negative (Negative); pH Urine 6.5 (4.5-7.5)
--- NOTE | 2021-03-06 14:27 | History & Physical Report ---
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 Recent hospitalization 03/04 2/2 to CP. ACS r/o and pt underwent dobutamine stress test, negative for inducible ischemia. BP was noted to be elevated so he was started on lisinopril 10mg daily. He took one dose, noted BP last evening systolically in 60s. Responded temporarily to PEG fluids. Acute Hypotension Lightheadedness likely 2/2 to addition of lisinopril pt with hx of orthostatic hypotension, previously on florinef, d/c ~ 3-4 months ago 2/2 to labile htn obtain orthostatic BP ? if 2/2 to trauma to carotid baroreceptor during XRT for tonsillar ca causing inability to regulate BP, vs insufficient fluid/caloric needs through peg vs other etiology of autonomic instability d/c lisinopril - if bp remains high resume at 2.5 consider re adding Florinef if orthostasis + obtain aldosterone and a.m. cortisol further workup as outpt by PCP for other intrinsic causes of autonomic insta bility continue IVF 80cc/hr x 2 L Add TEDS, consider abdominal binder if orthostasis COPD no acute exac prn nebs Depression continue citalopram, mood stable Hard of hearing/Inability to communicate 2/2 to neck surg to remian at bedside for pt safety Hx of HTN stop lisinopril for now Glaucoma continue eye gtts Hypothyroidism continue levothyroxine check tsh Dispo: med tele PCP: Tanner FULL CODE Pt was seen and examined in collaboration with Dr. Milian, please see addendum History of Present Illness Chief Complaint: Hypotension x 1 day. 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 Of significance patient was recently admitted on 03/04 secondary to chest pain. His troponins were negative x3. CTA was negative for PE. He underwent dobutamine stress test which was negative for inducible ischemia, revealed normal EF and grade 1 diastolic dysfunction. He did have mild hypertension and therefore was started on lisinopril 10 mg daily. He has PEG tube due to hx of tonsilar ca. He does tube feedings 4 x a day and only takes meds via peg tube. is at bedside and gives most of history. His bp was 60/30 at home and at home pt c/o dizziness and pre syncope. He took his newly prescribed lisinopril yesterday, but did not take today. He c/o pain in neck that radiates down arm that has since subsided. Denies f/c/s, cough, uri sx, n/v/d, abdominal pain. denies fall. states blood pressure has been low before lisinopril started. This has been going on for 3 months. BP is labile 200s or 60s. Previously he has been on florinef, but has been off of this 3-4months. In ED patient initial blood pressures were 60 systolic. He received 2 L of IV fluid and blood pressure resp onded into the low 100s. He currently denies dizziness. 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 with patient is difficult secondary to inability and difficulty speaking as well as inability to hear. Allergies Allergy/AdvReac Type Severity Reaction Status Date / Time Nitrate Analogues Allergy Severe DROP IN BP Verified 03/06/21 13:39 sulfamethoxazole Allergy Intermediate ITCHING Verified 03/06/21 13:39 trimethoprim Allergy Intermediate ITCHING Verified 03/06/21 13:39 levofloxacin Allergy Mild rash all Verified 03/06/21 13:39 over body sertraline Allergy Mild NOSE BLEEDS Verified 03/06/21 13:39 terazosin Allergy Unknown DOES NOT Verified 03/06/21 13:39 KNOW Home Medications Medication Instructions Recorded Confirmed Type citalopram 20 mg tablet 20 mg FEEDING TUBE QAM 05/07/18 03/06/21 History food supplemt, lactose-reduced 2 can FEEDING TUBE QID 05/07/18 03/06/21 History (Nutritional Drink) latanoprost 0.005 % eye drops 1 drp OPB HS 01/30/19 03/06/21 History albuterol sulfate 2.5 mg INHALATION Q6H PRN #75 ml 11/01/20 03/06/21 Rx albuterol sulfate 90 mcg/actuation 2 puff INHALATION QID PRN 11/08/20 03/06/21 History aerosol inhaler brimonidine 0.2 % eye drops 1 drp OPB BID 11/08/20 03/06/21 History levothyroxine 75 mcg tablet 75 mcg FEEDING TUBE DAILYBB 01/19/21 03/06/21 History famotidine 20 mg tablet 20 mg FEEDING TUBE BID 03/04/21 03/06/21 History tramadol 50 mg tablet 50 mg FEEDING TUBE Q6H PRN 03/04/21 03/06/21 History acetaminophen 500 mg tablet 1,000 mg PO Q6H PRN 03/06/21 03/06/21 History (Tylenol Extra Strength) lisinopril 10 mg tablet 10 mg FEEDING TUBE QAM 03/06/21 03/06/21 History Past Med/Surg History Medical History (Updated 03/06/21 @ 15:05 by Palak Nova PA-C) Anxiety Aspiration pneumonia CAN NOT TAKE FOOD/LIQUIDS ORALLY Asthma Benign prostatic hyperplasia (Unknown) Chronic back pain COPD (chronic obstructive pulmonary disease) with emphysema Degenerative disc disease Depression Gastroparesis GERD (gastroesophageal reflux disease) Glaucoma Hypertension Hypothyroidism Osteoarthritis Tonsil carcinoma (Unknown) RADIATION AND CHEMO Uses feeding tube Surgical History H/O esophagogastroduodenoscopy (Unknown) WITH PLACEMENT PEG TUBE History of anesthesia reaction SLOW TO WAKE UP History of neck surgery LUMPECTOMY History of tooth extraction S/P arthroscopic knee surgery (Unknown) RT S/P colonoscopy (Unknown) Family History Brother Family history of diabetes mellitus Social History Smoking Status: Never smoker Tobacco Type: Cigarettes Second Hand Exposure: No; Hx Alcohol Use: No Hx Substance Use: No Preferred Language: Citizen Of [place] 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 Ability: 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 Beliefs That Will Affect Care: None marital status: Current Living Situation: Spouse Feels Safe at Home: Yes Assistive Devices: None Review of Systems Review of Systems: All systems reviewed & are unremarkable except as noted in HPI & below Results & Data Results & Data ([facility]) Vital Signs (Past 12 Hours) Vital Signs Temp Pulse Resp BP Pulse Ox 03/06/21 13:30 58 L 17 106/65 94 03/06/21 13:15 60 16 118/68 93 03/06/21 13:00 58 L 18 100/61 96 03/06/21 12:45 62 18 113/64 94 03/06/21 12:30 58 L 18 92/57 L 93 03/06/21 12:16 56 L 17 84/54 L 03/06/21 12:00 57 L 16 91/55 L 03/06/21 11:45 55 L 22 89/53 L 03/06/21 11:30 57 L 18 63/45 L 94 03/06/21 11:24 58 L 17 69/44 L 96 03/06/21 11:09 36.6 C 65 20 64/44 L 97 Diagnostic Findings Chest X-Ray 03/06/21 11:29 XR chest 1V portable CLINICAL HISTORY: weakness COMPARISON STUDY: March 03, 2021 FINDINGS: No pneumothorax. No pleural effusion. Minimal atelectasis is seen at the left base. The rest of lung parenchyma is clear. Cardiomediastinal silhouette is within normal limits in size. No significant pulmonary vascular congestion.. Aorta is calcified. Osseous structures: Unremarkable. Vertebral bodies are not well seen. IMPRESSION: 1. Minimal atelectasis at the left base. ACT 112: Negative or not required by law. The above report was generated using voice recognition software. It may contain grammatical, syntax or spelling errors. Electronically signed by: Lucy Jaime DO 03/06/2021 1:02 PM Medications Administered Medication List Discontinued Medications Sodium Chloride (Nss 1000ml) 1,000 mls @ 999 mls/hr IV .Q1H1M GIRISH Stop: 03/06/21 12:30 Last Infusion: 03/06/21 12:33 Dose: 0 mls/hr Documented by: [id number] Admin: 03/06/21 11:46 Dose: 999 mls/hr Documented by: [id number] Sodium Chloride (Nss 1000ml) 1,000 mls @ 999 mls/hr IV .Q1H1M ONE Stop: 03/06/21 13:30 Last Infusion: 03/06/21 13:39 Dose: 0 mls/hr Documented by: [id number] Admin: 03/06/21 12:33 Dose: 999 mls/hr Documented by: [id number] ECG Rate (beats per minute): 59 Rhythm: sinus bradycardia COVID-19 Results Results COVID-19 Adm Lab Results: RBC 4.31 M/uL (4.7-6.1) L 03/06/21 WBC 5.46 K/uL (4.8-10.8) 03/06/21 Hgb 14.5 g/dL (14.0-18.0) 03/06/21 Hct 43.3 % (42-52) 03/06/21 Plt Count 154 K/uL (130-400) 03/06/21 Neutrophils (%) (Auto) 62.4 % 03/06/21 Lymphocytes (%) (Auto) 19.0 % 03/06/21 Monocytes # (Auto) 0.72 K/uL (0.11-0.59) H 03/06/21 Eosinophils # (Auto) 0.25 K/uL (0-0.5) 03/06/21 Immature Granulocyte % (Auto) 0.4 % 03/06/21 Neutrophils # (Auto) 3.41 K/uL (1.4-6.5) 03/06/21 Lymphocytes # (Auto) 1.04 K/uL (1.2-3.4) L 03/06/21 Monocytes # (Auto) 0.72 K/uL (0.11-0.59) H 03/06/21 Eosinophils # (Auto) 0.25 K/uL (0-0.5) 03/06/21 Basophils # (Auto) 0.02 K/uL (0-0.2) 03/06/21 Immature Granulocyte # (Auto) 0.02 K/uL (0.00-0.02) 03/06/21 Na 141 mmol/L (136-145) 03/06/21 K 3.8 mmol/L (3.5-5.1) 03/06/21 Cl 110 mmol/L (98-107) H 03/06/21 CO2 27 mmol/L (21-32) 03/06/21 Anion Gap 4.0 (3-11) 03/06/21 BUN 21 mg/dl (7-18) H 03/06/21 Creatinine 1.19 mg/dl (0.6-1.4) 03/06/21 BUN/Creatinine Ratio 17.8 (10-20) 03/06/21 Glucose Level 74 mg/dl (70-99) 03/06/21 Ca 9.1 mg/dl (8.5-10.1) 03/06/21 Total Bilirubin 0.6 mg/dl (0.2-1) 03/06/21 AST/SGOT 23 U/L (15-37) 03/06/21 ALT/SGPT 39 U/L (12-78) 03/06/21 Alkaline Phosphatase 79 U/L (45-117) 03/06/21 Total Protein 7.0 gm/dl (6.4-8.2) 03/06/21 Albumin 3.3 gm/dl (3.4-5.0) L 03/06/21 Globulin 3.7 gm/dl (2.5-4.0) 03/06/21 Albumin/Globulin Ratio 0.9 (0.9-2) 03/06/21 Total CK 40 U/L (39-308) 03/06/21 Troponin I < 0.015 ng/ml (0-0.045) 03/06/21 COVID-19 PCR Pending 03/06/21 Chest X-Ray 03/06/21 Code Status & VTE Plan Code Status FULL CODE VTE Prophylaxis Plan VTE Prophylaxis will be ordered: Yes Supervising Physician Co-Signing Physician Notes It is a 75-year-old male with history of tonsillar cancer S/P radical neck dissection, chemo related radiation therapy, COPD, orthostatic hypotension previously on fludrocortisone and other medical problems presents with history of hypertension associated with dizziness. Patient was evaluated at [facility] 2 days ago for chest pain and had a cardiac stress test which was negative. He was lisinopril for uncontrolled hypertension during prior admission. Patient unable to provide any history secondary to significant hearing impairment, s/p neck surgery. Most of the history is obtained from patient's at bedside, ER physician and old records. Patient's family states that patient had a presyncopal episode and was found to have blood pressure systolic in 60s and so was brought to ED for further evaluation. While in ED, blood pressure improved with IV fluids and dizziness resolved. Currently he denies any chest pain, shortness of breath, nausea, vomiting, abdominal pain, fever, chills, diarrhea. Please review HPI for complete use of presentation. Physical Exam: Vitals signs as noted above General Appearance:Moderately built and nourished, no apparent distress Head: normocephalic, Atraumatic, +Hoarse voice, +Hearing impairment Eyes: normal inspection, EOMI Neck: supple, Trachea midline Respiratory/Chest: Normal breath sounds, CTA, No accessory muscle use Cardiovascular: S1, S2, No murmur Abdomen/GI:Soft, Non tender, Bowel sounds present, +PEG tube Extremities/Musculoskelatal:normal inspection, Trace pedal edema Neurologic/Psych:AAOX3, grossly no focal neurological deficits Skin: normal color, warm Acute Hypotension Presyncope Labile HTN H/O orthostatic hypotension previously on fludrocortisone Likely secondary to lisinopril (started on prior admission), poor oral intake (Only on Tube Feeds) DD:Loss of Baroreceptor function due to Neck surgery/radiation Recent TSH WNL Check orthostatics, Teds IV fluids Discontinue lisinopril Consider restarting fludrocortisone if needed Secondary hypertension work-up as outpatient Fall Precautions I personally reviewed the record. Patient is interviewed and examined at bedside. Patient's care is coordinated with Rowena Pollock PA-C. Please refer to the documentation above for details of patient's presentation and for discussion of other issues. (1) Hypertension Hypertension type: unspecified Qualified Code(s): I10 - Essential (primary) hypertension
--- NOTE | 2021-03-06 17:16 | Ultrasound Report ---
US duplex renal artery HISTORY: 75 years-old Male Labile Blood pressure acutely elevated blood pressure COMPARISON: CT abdomen pelvis 12/14/2020 TECHNIQUE: Multiple real-time sonographic images of the renal vascular structures were obtained asses sing grayscale appearance, color and spectral flow FINDINGS: Limited exam secondary to patient body habitus and inability to cooperate for the study. The right kidney measures 11.0 cm in length and demonstrates no elevated peak systolic velocities. Pa tent renal artery and vein. Resistive indices within the right renal artery measure up to 0.7. The left kidney measures 9.8 cm in length and demonstrates no elevated peak systolic velocities. Ybarra nt renal artery and vein. Resistive indices within the left renal artery measure up to 0.74. Normal plug flow within the abdominal aorta, peak systolic velocity measuring up to 89 cm/s. IMPRESSION: No evidence of renal artery stenosis. ACT 112: Negative or not required by law. The above report was generated using voice recognition software. It may contain grammatical, syntax o r spelling errors. Electronically signed by: Yehuda Luna M.D. 03/06/2021 5:15 PM
[2021-03-06] MEDS ORDERED: FOOD SUPPLEMT LACTOSE REDUCED Feeding Tube SCH (18:01)
[2021-03-06] MEDS ORDERED: ONDANSETRON INJ 2 MG/ML 2 ML VIAL IV PRN (18:01)
[2021-03-06] MEDS ORDERED: ALBUTEROL HFA 8 GM INHALER INH PRN (18:01)
[2021-03-06] MEDS ORDERED: ALBUTEROL 0.083% NEBU SOLN 3 ML VIAL INH PRN (18:01)
[2021-03-06] MEDS ORDERED: traMADol HCL 50 MG TABLET PO PRN (18:01)
[2021-03-06] MEDS ORDERED: ACETAMINOPHEN SUSP 325 MG/10.15 ML UDC PEG PRN (18:05)
[2021-03-06] MEDS: SODIUM CHLORIDE 0.9% 1000ML 1,000 ML IV SCH (18:27)
[2021-03-06] MEDS: CITALOPRAM 20 MG TAB GT SCH (18:45)
[2021-03-06] MEDS: FAMOTIDINE SUSP 20 MG/2.5 ML UDP PO SCH (20:32)
[2021-03-06] MEDS: ENOXAPARIN INJ 40 MG/0.4 ML SYR SQ SCH (20:34)
[2021-03-06] MEDS: BRIMONIDINE TARTRATE 0.2% 5ML OPB SCH (20:35)
[2021-03-06] MEDS: LATANOPROST 0.005% OP SOLN 2.5 ML BTL OPB SCH (20:35)
[2021-03-07] MEDS: SODIUM CHLORIDE 0.9% 1000ML 1,000 ML IV SCH (05:42)
[2021-03-07] MEDS: LEVOTHYROXINE SODIUM 75 MCG TABLET PEG SCH (05:42)
--- NOTE | 2021-03-07 06:00 | Electrocardiogram Report ---
Test Reason : Blood Pressure : / mmHG Vent. Rate : 059 BPM Atrial Rate : 059 BPM P-R Int : 146 ms QRS Dur : 086 ms QT Int : 414 ms P-R-T Axes : 014 -32 032 degrees QTc Int : 409 ms Sinus bradycardia Left axis deviation Abnormal ECG When compared with ECG of 04-MAR-2021 06:05, No significant change was found Confirmed by Ian Álvarez ([id number]) on 03/07/2021 5:59:57 AM Referred By: REFERRED SELF Confirmed By:Ian Álvarez
[2021-03-07 08:03] LABS: Hematocrit (blood only) 41.6 % (42-52); Hemoglobin 14.1 g/dL (14.0-18.0); Mean Corpuscular Hemoglobin 33.7 pg (25-34); Mean Corpuscular Hgb Conc 33.9 g/dL (32-36); Mean Corpuscular Volume 99.3 fL (80-100); Mean Platelet Volume 11.8 fL (7.4-10.4); Platelet Count 135 K/uL (130-400); RDW Coefficient of Variation 13.3 % (11.5-14.5); RDW Standard Deviation 48.4 fL (36.4-46.3); Red Blood Count 4.19 M/uL (4.7-6.1); White Blood Count 4.38 K/uL (4.8-10.8)
[2021-03-07] MEDS: CITALOPRAM 20 MG TAB GT SCH (08:09)
[2021-03-07] MEDS: BRIMONIDINE TARTRATE 0.2% 5ML OPB SCH ×2 (08:10→20:07)
[2021-03-07] MEDS: FAMOTIDINE SUSP 20 MG/2.5 ML UDP PO SCH ×2 (08:10→20:13)
--- NOTE | 2021-03-07 08:31 | Hospitalist Progress Note ---
Date of Service March 07, 2021 Assessment & Plan (1) Acute hypotension: (2) Tonsil carcinoma: (3) COPD (chronic obstructive pulmonary disease) with emphysema: (4) Depression: (5) Hypertension: Plan: 75 y/o male w/ hx of tonsillar CA s/p R radical neck dissection s/p chemoradiation with PEG tube placement, COPD, hx of orthostatic hypotension, labile hypertension, hyperlipidemia, gastroparesis, esophageal stenosis, chronic POAG who presents to ED secondary to hypotension. Recent hospitalization 03/04 2/2 to chest pain. ACS r/o and pt underwent dobutamine stress test, negative for inducible ischemia. BP was noted to be elevated so he was started on lisinopril 10mg daily. He took one dose, noted BP last evening systolically in 60s. Responded temporarily to PEG fluids. Acute Hypotension Lightheadedness likely 2/2 to addition of lisinopril pt with hx of orthostatic hypotension, previously on florinef, d/c ~ 3-4 months ago 2/2 to labile BP orthostatic BP obtained - negative (after IVF) ? if 2/2 to trauma to carotid baroreceptor during XRT for tonsillar ca causing inability to regulate BP, vs insufficient fluid/caloric needs through peg vs other etiology of autonomic instability On admission stopped lisinopril - if bp remains high , plan was to resume at 2.5 consider re adding Florinef if orthostasis + obtain aldosterone and a.m. cortisol further workup as outpt by PCP for other intrinsic causes of autonomic in stability continue IVF 80cc/hr x 2 L Add TEDS, consider abdominal binder if orthostasis 03/07 blood pressure elevated, over 200, received lisinopril at 5 mg. Then systolic blood pressure down to 90s. However patient completely asymptomatic and feeling well. Orthostatics obtained and negative, this is however after IV fluids were given on admission/overnight. Discussed further with cardiology today, who recommends Nitropaste and stop lisinopril. Patient's concerned as when he previously took sublingual nitro, she reports patient was CODE BLUE in the hospital. We will further discuss with cardiology, and will continue to monitor overnight. COPD no acute exac prn nebs Depression continue citalopram, mood stable Hard of hearing/Inability to communicate 2/2 to neck surg to remain at bedside for pt safety Hx of HTN stop lisinopril for now Glaucoma continue eye gtts Hypothyroidism continue levothyroxine check tsh Dispo: med tele PCP: Dr. Hart FULL CODE Admission and Anticipated Discharge Date Admission Date: March 06, 2021 Subjective Patient admitted with uncontrolled /labile blood pressure, admitted due to hypotension , recent admission for hypertension and chest pain. This morning his blood pressure over 200, orthostatics negative. Stopped IV fluids, gave lisinopril 5 mg. Patient was discharged on lisinopril 10 mg however now admitted because blood pressure was in 60s yesterday. We will also further discuss with cardiology. Currently patient is sitting up in bed, in no acute distress, patient's is at the bedside. He is currently comfortable, blood pressure systolic, in the 90s after 5 mg of lisinopril. Orthostatics negative again. He is alert oriented answering questions appropriately however difficult to understand, patient's is helping with communication. Currently patient has no complaints. Specifically denies any chest pain, shortness of breath, dizziness lightheadedness. Review of Systems Review of Systems: All systems reviewed & are unremarkable except as noted in Subjective Physical Exam Physical Exam: General Appearance: Moderately built and nourished, no apparent distress Head: normocephalic, Atraumatic, +Hoarse voice, +Hearing impairment Eyes: normal inspection, EOMI Neck: supple, Trachea midline Respiratory/Chest: Normal breath sounds, CTA, No accessory muscle use Cardiovascular: S1, S2, No murmur Abdomen/GI: Soft, Non tender, Bowel sounds present, +PEG tube Extremities/MSK: normal inspection, Trace pedal edema Neurologic/Psych:AAOX3, grossly no focal neurological deficits Skin: normal color, warm Results & Data Results & Data ([facility]) Vital Signs (Past 12 Hours) Vital Signs Temp Pulse Pulse Resp BP Pulse Ox 03/07/21 07:59 36.5 C 62 21 218/98 H 98 03/07/21 07:18 60 03/07/21 03:11 36.7 C 59 L 18 138/83 98 03/07/21 02:03 58 L 03/07/21 00:02 36.5 C 54 L 18 114/67 97 (1) Hypertension Hypertension type: unspecified Qualified Code(s): I10 - Essential (primary) hypertension
--- NOTE | 2021-03-07 08:33 | Hospitalist Progress Note ---
Date of Service March 07, 2021 Assessment & Plan Admission and Anticipated Discharge Date Admission Date: March 06, 2021 Subjective Patient admitted with uncontrolled /labile blood pressure, admitted due to h [email or web address] recent admission for hypertension and chest pain. This morning his blood pressure over 200, orthostatics negative. Stop IV fluids, will give lisinopril 5 mg. Patient was discharged on lisinopril 10 mg however now admitted because blood pressure was in 60s yesterday. We will also further discuss with cardiology. Zarina Vanessa MD Results & Data Results & Data ([facility]) Vital Signs (Past 12 Hours) Vital Signs Temp Pulse Pulse Resp BP Pulse Ox 03/07/21 07:59 36.5 C 62 21 218/98 H 98 03/07/21 07:18 60 03/07/21 03:11 36.7 C 59 L 18 138/83 98 03/07/21 02:03 58 L 03/07/21 00:02 36.5 C 54 L 18 114/67 97
[2021-03-07 08:39] LABS: BUN Creatinine Ratio 29.8 (10-20); Calcium 8.9 mg/dl (8.5-10.1); Creatinine Clr Calc Pharmacy 111.1 ml/min; Est GFR (African American) 111.9 ml/min; Est GFR (Non-African American) 96.5 ml/min; Magnesium 2.4 mg/dl (1.8-2.4); Potassium 3.9 mmol/L (3.5-5.1)
[2021-03-07] MEDS ORDERED: lisinopril 5 MG TAB PO ONE (09:00)
[2021-03-07] MEDS: FIBERSOURCE HN 1.2 CAL 1000 ML BAG GT SCH ×3 (11:48→20:06)
[2021-03-07] MEDS: TUBE FEEDING WATER FLUSH GT SCH ×6 (11:48→20:06)
[2021-03-07] MEDS ORDERED: FIBERSOURCE HN 1.2 CAL 1000 ML BAG GT SCH (12:00)
--- NOTE | 2021-03-07 12:27 | Cardiology Consultation ---
Date of Consultation March 07, 2021 Assessment & Plan (1) Tonsil carcinoma: (2) Aspiration pneumonia: (3) Hypertension: I would not be aggressive with treating the patient's blood pressure especially with an JOHNATHON inhibitor or ARB. His labile blood pressure may be the result of his previous radical neck surgery especially around the carotid artery. If antihypertensive medications are needed you may consider starting him on Nitropaste which can then be easily discontinued. He can have this medication during the day and it can be discontinued at night. Currently the patient is not orthostatic. History of Present Illness Attending Physician: Jay Vanessa MD History of Present Illness This is a 75-year-old male patient who was just discharged from the hospital 2 days ago. We saw him in consultation for atypical chest pain. The patient underwent a dobutamine stress echocardiogram that was negative. This patient has an extensive history of head neck cancer and is status post surgery. He takes nothing by mouth and is fed with a PEG tube for which he takes his medications. He has had a history of labile blood pressure since his surgery. He has no prior history of diabetes or Parkinson's disease. His labile blood pressure may be the result of his previous surgery around the carotid artery but this is uncertain. In the past he has been on Florinef which was previously discontinued. He was noted to be hypertensive during his last hospital admission and prior to discharge she was started on a small dose of lisinopril. After returning home he became symptomatic with dizziness and he was noted to be hypotensive. He was readmitted to the hospital through the emergency department and has been given IV fluids with some success in improving his hypotension. This morning his systolic blood pressure was in the 200 range and he was given 5 mg of lisinopril. His blood pressure now is 90/60. He is laying in bed and he is not symptomatic. Allergies Allergy/AdvReac Type Severity Reaction Status Date / Time Nitrate Analogues Allergy Severe DROP IN BP Verified 03/06/21 13:39 sulfamethoxazole Allergy Intermediate ITCHING Verified 03/06/21 13:39 trimethoprim Allergy Intermediate ITCHING Verified 03/06/21 13:39 levofloxacin Allergy Mild rash all Verified 03/06/21 13:39 over body sertraline Allergy Mild NOSE BLEEDS Verified 03/06/21 13:39 terazosin Allergy Unknown DOES NOT Verified 03/06/21 13:39 KNOW Home Medications Medication Instructions Recorded Confirmed Type citalopram 20 mg tablet 20 mg FEEDING TUBE QAM 05/07/18 03/06/21 History food supplemt, lactose-reduced 2 can FEEDING TUBE QID 05/07/18 03/06/21 History (Nutritional Drink) latanoprost 0.005 % eye drops 1 drp OPB HS 01/30/19 03/06/21 History albuterol sulfate 2.5 mg INHALATION Q6H PRN #75 ml 11/01/20 03/06/21 Rx albuterol sulfate 90 mcg/actuation 2 puff INHALATION QID PRN 11/08/20 03/06/21 History aerosol inhaler brimonidine 0.2 % eye drops 1 drp OPB BID 11/08/20 03/06/21 History levothyroxine 75 mcg tablet 75 mcg FEEDING TUBE DAILYBB 01/19/21 03/06/21 History famotidine 20 mg tablet 20 mg FEEDING TUBE BID 03/04/21 03/06/21 History tramadol 50 mg tablet 50 mg FEEDING TUBE Q6H PRN 03/04/21 03/06/21 History acetaminophen 500 mg tablet 1,000 mg PO Q6H PRN 03/06/21 03/06/21 History (Tylenol Extra Strength) lisinopril 10 mg tablet 10 mg FEEDING TUBE QAM 03/06/21 03/06/21 History Patient History Medical History Anxiety Aspiration pneumonia CAN NOT TAKE FOOD/LIQUIDS ORALLY Asthma Benign prostatic hyperplasia (Unknown) Chronic back pain COPD (chronic obstructive pulmonary disease) with emphysema Degenerative disc disease Depression Gastroparesis GERD (gastroesophageal reflux disease) Glaucoma Hypertension Hypothyroidism Osteoarthritis Tonsil carcinoma (Unknown) RADIATION AND CHEMO Uses feeding tube Surgical History H/O esophagogastroduodenoscopy (Unknown) WITH PLACEMENT PEG TUBE History of anesthesia reaction SLOW TO WAKE UP History of neck surgery LUMPECTOMY History of tooth extraction S/P arthroscopic knee surgery (Unknown) RT S/P colonoscopy (Unknown) Family History Brother Family history of diabetes mellitus Social History Smoking Status: Former smoker Tobacco Type: Cigarettes Second Hand Exposure: No; Do You Dip or Chew Tobacco: No; Tobacco Cessation Education Requested by Patient: No Hx Alcohol Use: No Hx Substance Use: No Preferred Language: Greenlandic 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 Ability: Impaired Electric 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 All other 10 point review of systems are negative. The patient cannot provide a history and the information is taken from his who is a good historian. Physical Exam Physical Exam: General: no acute distress and stated age Head: normocephalic, no masses, lesions, tenderness or abnormalities Eyes: conjunctiva are pink and non-injected, sclera clear Neck: Status post radical neck surgery Chest: normal shape and normal respiratory effort Lungs: clear to auscultation and percussion Cardiac Exam: - regular rate & rhythm, no murmurs gallops or rubs - normal S1, normal S2 Pulses: 2(+) throughout Abdomen: abdomen soft, non-tender, no abnormal masses and no hepatosplenomegaly Musculoskeletal: no gait disturbance, no joint inflammation, no deforming arthritis Extremities: no edema and no cyanosis Neuro: grossly normal exam Results & Data ([facility]) Vital Signs (Past 12 Hours) Vital Signs Temp Pulse Pulse Resp BP Pulse Ox 03/07/21 12:08 36.3 C L 57 L 19 93/57 L 98 03/07/21 09:23 93/54 L 03/07/21 07:59 36.5 C 62 21 218/98 H 98 03/07/21 07:18 60 03/07/21 03:11 36.7 C 59 L 18 138/83 98 03/07/21 02:03 58 L Laboratory Results Laboratory Results - last 24 hr 03/06/21 03/06/21 03/06/21 11:40 12:58 14:10 WBC RBC Hgb Hct MCV MCH MCHC RDW Std Deviation RDW Coeff of Judy Plt Count MPV Sodium Potassium Chloride Carbon Dioxide Anion Gap BUN Creatinine Est Cr Clr Drug Dosing Est GFR ( Amer) Est GFR (Non-Af Amer) BUN/Creatinine Ratio Glucose Lactate 1.6 Calcium Magnesium Aldosterone TSH Cortisol AM Sample Urine Color Yellow Urine Appearance Clear Urine pH 6.5 Ur Specific [place] 1.006 Urine Protein Negative Urine Glucose (UA) Negative Urine Ketones Negative Urine Blood Negative Urine Nitrite Negative Urine Bilirubin Negative Urine Urobilinogen Negative Ur Leukocyte Esterase Negative COVID-19 Eval Order Covid19 at [facility] SARS-CoV-2 (PCR) 03/06/21 03/06/21 03/07/21 14:10 17:21 07:35 WBC 4.38 L RBC 4.19 L Hgb 14.1 Hct 41.6 L MCV 99.3 MCH 33.7 MCHC 33.9 RDW Std Deviation 48.4 H RDW Coeff of Judy 13.3 Plt Count 135 MPV 11.8 H Sodium Potassium Chloride Carbon Dioxide Anion Gap BUN Creatinine Est Cr Clr Drug Dosing Est GFR ( Amer) Est GFR (Non-Af Amer) BUN/Creatinine Ratio Glucose Lactate Calcium Magnesium Aldosterone TSH Cancelled Cortisol AM Sample Urine Color Urine Appearance Urine pH Ur Specific [place] Urine Protein Urine Glucose (UA) Urine Ketones Urine Blood Urine Nitrite Urine Bilirubin Urine Urobilinogen Ur Leukocyte Esterase COVID-19 Eval Order SARS-CoV-2 (PCR) NEGATIVE 03/07/21 03/07/21 03/07/21 07:35 07:35 07:35 WBC RBC Hgb Hct MCV MCH MCHC RDW Std Deviation RDW Coeff of Judy Plt Count MPV Sodium 141 Potassium 3.9 Chloride 111 H Carbon Dioxide 27 Anion Gap 3.0 BUN 19 H Creatinine 0.65 D Est Cr Clr Drug Dosing 111.1 Est GFR ( Amer) 111.9 Est GFR (Non-Af Amer) 96.5 BUN/Creatinine Ratio 29.8 H Glucose 83 Lactate Calcium 8.9 Magnesium 2.4 Aldosterone Pending TSH Cortisol AM Sample 6.18 Urine Color Urine Appearance Urine pH Ur Specific [place] Urine Protein Urine Glucose (UA) Urine Ketones Urine Blood Urine Nitrite Urine Bilirubin Urine Urobilinogen Ur Leukocyte Esterase COVID-19 Eval Order SARS-CoV-2 (PCR) Medications Administered Current Inpatient Medications Acetaminophen (Acetaminophen Susp 325 Mg/10.15 Ml Udc) 650 mg PEG Q4H PRN PRN Reason: Pain or Fever Stop: 04/05/21 18:04 Albuterol (Albuterol Hfa 8 Gm Inhaler) 2 puffs INH QID PRN PRN Reason: Shortness Of Breath Stop: 04/05/21 18:00 Albuterol (Albuterol 0.083% Nebu Soln 3 Ml Vial) 2.5 mg INH Q6H PRN PRN Reason: bronchospasm Stop: 04/05/21 18:00 Brimonidine Tartrate (Brimonidine Tartrate 0.2% 5ml) 1 drops OPB BID ON LICENSE OF [facility] Stop: 04/05/21 20:59 Last Admin: 03/07/21 08:10 Dose: 1 drops Documented by: Citalopram Hydrobromide (Citalopram 20 Mg Tab) 20 mg GT QAM ON LICENSE OF [facility] Stop: 04/05/21 18:00 Last Admin: 03/07/21 08:09 Dose: 20 mg Documented by: Enoxaparin Sodium (Enoxaparin Inj 40 Mg/0.4 Ml Syr) 40 mg SQ Q24H ON LICENSE OF [facility] Stop: 04/05/21 21:59 Last Admin: 03/06/21 20:34 Dose: 40 mg Documented by: Enteral Nutritional Formula (Fibersource Hn 1.2 Palmer 1000 Ml Bag) 1,000 ml GT 0800,1200,1600,2000 ON LICENSE OF [facility]; Protocol Stop: 04/06/21 11:59 Last Admin: 03/07/21 11:48 Dose: 1,000 ml Documented by: Famotidine (Famotidine Susp 20 Mg/2.5 Ml Udp) 20 mg PO BID ON LICENSE OF [facility] Stop: 04/05/21 20:59 Last Admin: 03/07/21 08:10 Dose: 20 mg Documented by: Latanoprost (Latanoprost 0.005% Op Soln 2.5 Ml Btl) 1 drops OPB HS ON LICENSE OF [facility] Stop: 04/05/21 20:59 Last Admin: 03/06/21 20:35 Dose: 1 drops Documented by: Levothyroxine Sodium (Levothyroxine Sodium 75 Mcg Tablet) 75 mcg PEG DAILYBB ON LICENSE OF [facility] Stop: 04/06/21 06:29 Last Admin: 03/07/21 05:42 Dose: 75 mcg Documented by: Ondansetron HCl (Ondansetron Inj 2 Mg/Ml 2 Ml Vial) 4 mg IV Q6H PRN PRN Reason: Nausea Stop: 04/05/21 18:00 Sterile Water (Tube Feeding Water Flush) 100 ml GT 0759,1159,1559,1959 ON LICENSE OF [facility] Stop: 04/06/21 11:58 Last Admin: 03/07/21 11:48 Dose: 100 ml Documented by: Sterile Water (Tube Feeding Water Flush) 100 ml GT 0830,1230,1630,2030 ON LICENSE OF [facility] Stop: 04/06/21 12:29 Last Admin: 03/07/21 11:48 Dose: 100 ml Documented by: Tramadol HCl (Tramadol Hcl 50 Mg Tablet) 50 mg PO Q6H PRN PRN Reason: Pain Stop: 04/05/21 18:00 (1) Hypertension Hypertension type: unspecified Qualified Code(s): I10 - Essential (primary) hypertension
[2021-03-07] MEDS: LATANOPROST 0.005% OP SOLN 2.5 ML BTL OPB SCH (20:08)
[2021-03-07] MEDS: ENOXAPARIN INJ 40 MG/0.4 ML SYR SQ SCH (20:54)
[2021-03-08] MEDS: LEVOTHYROXINE SODIUM 75 MCG TABLET PEG SCH (06:03)
[2021-03-08] MEDS: BRIMONIDINE TARTRATE 0.2% 5ML OPB SCH ×2 (07:39→20:57)
[2021-03-08] MEDS: CITALOPRAM 20 MG TAB GT SCH (07:39)
[2021-03-08] MEDS: TUBE FEEDING WATER FLUSH GT SCH ×8 (07:44→20:58)
[2021-03-08] MEDS: FAMOTIDINE SUSP 20 MG/2.5 ML UDP PO SCH ×2 (07:44→20:57)
[2021-03-08] MEDS: FIBERSOURCE HN 1.2 CAL 1000 ML BAG GT SCH ×4 (07:44→20:58)
[2021-03-08 08:08] LABS: Hematocrit (blood only) 41.9 % (42-52); Hemoglobin 13.9 g/dL (14.0-18.0); Mean Corpuscular Hemoglobin 33.3 pg (25-34); Mean Corpuscular Hgb Conc 33.2 g/dL (32-36); Mean Corpuscular Volume 100.5 fL (80-100); Mean Platelet Volume 11.6 fL (7.4-10.4); Platelet Count 141 K/uL (130-400); RDW Coefficient of Variation 13.3 % (11.5-14.5); RDW Standard Deviation 49.1 fL (36.4-46.3); Red Blood Count 4.17 M/uL (4.7-6.1); White Blood Count 4.92 K/uL (4.8-10.8)
[2021-03-08 08:26] LABS: BUN Creatinine Ratio 25.7 (10-20); Calcium 8.7 mg/dl (8.5-10.1); Creatinine Clr Calc Pharmacy 91.4 ml/min; Est GFR (African American) 103.2 ml/min; Est GFR (Non-African American) 89.1 ml/min; Magnesium 2.1 mg/dl (1.8-2.4); Phosphorus 2.2 mg/dl (2.5-4.9)
[2021-03-08] MEDS ORDERED: SODIUM CHLORIDE 0.9% 1000ML 500 ML IV ONE (09:18)
[2021-03-08] MEDS ORDERED: POTASSIUM PHOS 3 MMOL/1 ML INFUSION IV STA (09:19)
[2021-03-08] MEDS ORDERED: POTASSIUM PHOSPHATE 9 MMOL in SODIUM CHLORIDE 0.9% 250 ML IV ONE (09:45)
--- NOTE | 2021-03-08 12:55 | Hospitalist Progress Note ---
Date of Service March 08, 2021 Assessment & Plan (1) Acute hypotension: (2) Tonsil carcinoma: (3) COPD (chronic obstructive pulmonary disease) with emphysema: (4) Depression: (5) Hypertension: Plan: 75 y/o male w/ hx of tonsillar CA s/p R radical neck dissection s/p chemoradiation with PEG tube placement, COPD, hx of orthostatic hypotension, labile hypertension, hyperlipidemia, gastroparesis, esophageal stenosis, chronic POAG who presents to ED secondary to hypotension. Recent hospitalization 03/04 2/2 to chest pain. ACS r/o and pt underwent dobutamine stress test, negative for inducible ischemia. BP was noted to be elevated so he was started on lisinopril 10mg daily. He took one dose, noted BP last evening systolically in 60s. Responded temporarily to PEG fluids. Acute Hypotension Lightheadedness likely 2/2 to addition of lisinopril pt with hx of orthostatic hypotension, previously on florinef, d/c ~ 3-4 months ago 2/2 to labile BP orthostatic BP obtained - negative (after IVF) ? if 2/2 to trauma to carotid baroreceptor during XRT for tonsillar ca causing inability to regulate BP, vs insufficient fluid/caloric needs through peg vs other etiology of autonomic instability ?Hx of adrenal insufficiency consider re-adding Florinef if orthostasis + ordered aldosterone - pending AM cortisol - normal further workup as outpt by PCP for other intrinsic causes of autonomic instability continued IVF 80cc/hr x 2 L on admission , now stopped Add TEDS, consider abdominal binder if orthostasis 03/07 blood pressure elevated, over 200, received lisinopril at 5 mg. Then systolic blood pressure down to 90s. However patient completely asymptomatic and feeling well. Orthostatics obtained and negative, this is however after IV fluids were given on admission/overnight. Discussed further with cardiology today, who recommends Nitropaste and stop lisinopril. Patient's concerned as when he previously took sublingual nitro, she reports patient was CODE BLUE in the hospital. We will further discuss with cardiology, and will continue to monitor overnight. 03/08 -patient hypotensive this morning, systolic blood pressure in 80s, gave 500 cc bolus of normal saline. Further discussed with cardiology For now plan will be to reintroduce Florinef for the morning and small dose nitro patch in the afternoon. Nitropatch is now applied, patient is feeling well. We will continue to monitor patient overnight COPD no acute exac prn nebs Depression continue citalopram, mood stable Hard of hearing/Inability to communicate 2/2 to neck surg to remain at bedside for pt safety Hx of HTN stop lisinopril for now Glaucoma continue eye gtts Hypothyroidism continue levothyroxine check tsh Dispo: med tele PCP: Dr. Hart FULL CODE Admission and Anticipated Discharge Date Admission Date: March 07, 2021 Subjective Patient admitted with uncontrolled /labile blood pressure, admitted due to hypotension , recent admission for hypertension and chest pain. Yesterday morning his blood pressure over 200, orthostatics negative. Stopped IV fluids, gave lisinopril 5 mg. SBP was then in 90s, however patient felt well, asymptomatic. This AM, patient had patient hypotensive, and not feeling well. Also now he was orthostatic. Ordered small bolus, 500 normal saline. Currently patient is sitting up in bed, in no acute distress, patient's is at the bedside. Pt is currently comfortable. has no complaints. Specifically denies any chest pain, shortness of breath, dizziness lightheadedness. He is alert oriented answering questions appropriately however difficult to understand, patient's is helping with communication. Review of Systems Review of Systems: All systems reviewed & are unremarkable except as noted in Subjective Physical Exam Physical Exam: General Appearance: Moderately built and nourished, no apparent distress Head: normocephalic, Atraumatic, +Hoarse voice, +Hearing impairment Eyes: normal inspection, EOMI Neck: supple, Trachea midline Respiratory/Chest: Normal breath sounds, CTA, No accessory muscle use Cardiovascular: S1, S2, No murmur Abdomen/GI: Soft, Non tender, Bowel sounds present, +PEG tube Extremities/MSK: normal inspection, Trace pedal edema Neurologic/Psych:AAOX3, grossly no focal neurological deficits Skin: normal color, warm Results & Data Results & Data ([facility]) Vital Signs (Past 12 Hours) Vital Signs Temp Pulse Pulse Resp BP BP Pulse Ox 03/08/21 12:05 36.3 C L 57 L 18 123/72 97 03/08/21 10:31 54 L 16 105/61 03/08/21 09:12 53 L 16 82/51 L 95 03/08/21 08:12 36.5 C 59 L 19 94/58 L 96 03/08/21 07:35 67 03/08/21 04:08 36.7 C 59 L 18 129/70 97 Laboratory Results 03/08/21 03/08/21 03/08/21 Range/Units 07:59 07:55 07:55 WBC 4.92 (4.8-10.8) K/uL RBC 4.17 L (4.7-6.1) M/uL Hgb 13.9 L (14.0-18.0) g/dL Hct 41.9 L (42-52) % MCV 100.5 H (80-100) fL MCH 33.3 (25-34) pg MCHC 33.2 (32-36) g/dL RDW Std Deviation 49.1 H (36.4-46.3) fL RDW Coeff of Judy 13.3 (11.5-14.5) % Plt Count 141 (130-400) K/uL MPV 11.6 H (7.4-10.4) fL Sodium 142 (136-145) mmol/L Potassium 4.0 (3.5-5.1) mmol/L Chloride 110 H (98-107) mmol/L Carbon Dioxide 31 (21-32) mmol/L Anion Gap 1.0 L (3-11) BUN 20 H (7-18) mg/dl Creatinine 0.79 (0.6-1.4) mg/dl Est Cr Clr Drug Dosing 91.4 ml/min Est GFR ( Amer) 103.2 ml/min Est GFR (Non-Af Amer) 89.1 ml/min BUN/Creatinine Ratio 25.7 H (10-20) Glucose 94 (70-99) mg/dl Calcium 8.7 (8.5-10.1) mg/dl Phosphorus 2.2 L (2.5-4.9) mg/dl Magnesium 2.1 (1.8-2.4) mg/dl Procalcitonin < 0.05 (0-0.5) ng/ml Medications Administered Current Inpatient Medications Acetaminophen (Acetaminophen Susp 325 Mg/10.15 Ml Udc) 650 mg PEG Q4H PRN PRN Reason: Pain or Fever Stop: 04/05/21 18:04 Albuterol (Albuterol Hfa 8 Gm Inhaler) 2 puffs INH QID PRN PRN Reason: Shortness Of Breath Stop: 04/05/21 18:00 Albuterol (Albuterol 0.083% Nebu Soln 3 Ml Vial) 2.5 mg INH Q6H PRN PRN Reason: bronchospasm Stop: 04/05/21 18:00 Brimonidine Tartrate (Brimonidine Tartrate 0.2% 5ml) 1 drops OPB BID [facility] Stop: 04/05/21 20:59 Last Admin: 03/08/21 07:39 Dose: 1 drops Documented by: Citalopram Hydrobromide (Citalopram 20 Mg Tab) 20 mg GT QAM [facility] Stop: 04/05/21 18:00 Last Admin: 03/08/21 07:39 Dose: 20 mg Documented by: Enoxaparin Sodium (Enoxaparin Inj 40 Mg/0.4 Ml Syr) 40 mg SQ Q24H [facility] Stop: 04/05/21 21:59 Last Admin: 03/07/21 20:54 Dose: 40 mg Documented by: Enteral Nutritional Formula (Fibersource Hn 1.2 Palmer 1000 Ml Bag) 1,000 ml GT 0800,1200,1600,2000 [facility]; Protocol Stop: 04/06/21 11:59 Last Admin: 03/08/21 07:44 Dose: 1,000 ml Documented by: Famotidine (Famotidine Susp 20 Mg/2.5 Ml Udp) 20 mg PO BID [facility] Stop: 04/05/21 20:59 Last Admin: 03/08/21 07:44 Dose: 20 mg Documented by: Latanoprost (Latanoprost 0.005% Op Soln 2.5 Ml Btl) 1 drops OPB HS [facility] Stop: 04/05/21 20:59 Last Admin: 03/07/21 20:08 Dose: 1 drops Documented by: Levothyroxine Sodium (Levothyroxine Sodium 75 Mcg Tablet) 75 mcg PEG DAILYBB [facility] Stop: 04/06/21 06:29 Last Admin: 03/08/21 06:03 Dose: 75 mcg Documented by: Ondansetron HCl (Ondansetron Inj 2 Mg/Ml 2 Ml Vial) 4 mg IV Q6H PRN PRN Reason: Nausea Stop: 04/05/21 18:00 Sterile Water (Tube Feeding Water Flush) 100 ml GT 0759,1159,1559,1959 [facility] Stop: 04/06/21 11:58 Last Admin: 03/08/21 07:44 Dose: 100 ml Documented by: Sterile Water (Tube Feeding Water Flush) 100 ml GT 0830,1230,1630,2030 [facility] Stop: 04/06/21 12:29 Last Admin: 03/08/21 07:44 Dose: 100 ml Documented by: Tramadol HCl (Tramadol Hcl 50 Mg Tablet) 50 mg PO Q6H PRN PRN Reason: Pain Stop: 04/05/21 18:00 (1) Hypertension Hypertension type: unspecified Qualified Code(s): I10 - Essential (primary) hypertension
[2021-03-08] MEDS: NITROGLYCERIN 0.1 MG/HR PATCH TD SCH (15:50)
--- NOTE | 2021-03-08 17:12 | Cardiology Progress Note ---
Date of Service March 08, 2021 Assessment & Plan (1) Acute hypotension: (2) Hypertension: Plan: Patient with recent admission for chest pain in setting of hypertension, systolic blood pressure in excess of 200 mmHg. Also noted acute on chronic orthostatic hypotension. Looking back, he has previously been prescribed fludrocortisone, for not well documented indication dating back to at least 2013 per his outpatient record. Random cortisol level was within normal limits this hospital stay. Patient with occasional symptomatic low blood pressure which was significantly exacerbated on both lisinopril 10 mg and lisinopril 5 mg daily. Plan: We will cautiously proceed with fludrocortisone daily in the morning, and nitroglycerin patch to be applied at 1 PM and removed at bedtime. The patient spouse is routinely checking his blood pressures at least 3 times at home, and if she is to find that he has a systolic blood pressure less than 100 mmHg, she can just remove the nitroglycerin patch for now we will start a low-dose of nitroglycerin patch 0.1 mg/h. Of note the patient had an apparent loss of consciousness or even perhaps "CODE BLUE "event dating back to 1999 when he received a dose of sublingual nitroglycerin as per spouse's recollection. We d iscussed that this dose of nitroglycerin course would be much lower, and I think that by proceeding with a trial of this regimen in the hospital we can get a better idea with regards to its effectiveness. Case discussed with both Dr. Vanessa and patient's spouse at length. Admission and Anticipated Discharge Date Admission Date: March 07, 2021 Subjective Patient seen in follow-up of symptomatic hypotension this morning. Spouse at bedside. She states that he has been progressively fatigued for the last 1 to 3 months, napping frequently. She is very concerned about him. Physical Exam Physical Exam: Temp Pulse Resp BP Pulse Ox 36.8 C 61 20 125/75 95 03/08/21 16:36 03/08/21 16:44 03/08/21 16:36 03/08/21 16:44 03/08/21 16:44 Constitutional: + thin Respiratory: normal respiratory effort, lungs clear to auscultation Cardiovascular: RRR, no murmur, no edema Results & Data ([facility]) Vital Signs (Past 12 Hours) Vital Signs Temp Pulse Pulse Resp BP BP Pulse Ox 03/08/21 16:44 61 125/75 95 03/08/21 16:36 36.8 C 59 L 20 137/84 97 03/08/21 16:18 145/78 H 03/08/21 15:49 61 155/91 H 03/08/21 15:11 62 03/08/21 12:05 36.3 C L 57 L 18 123/72 97 03/08/21 10:31 54 L 16 105/61 03/08/21 09:12 53 L 16 82/51 L 95 03/08/21 08:12 36.5 C 59 L 19 94/58 L 96 03/08/21 07:35 67 Laboratory Results CBC 03/08/21 Range/Units 07:55 WBC 4.92 (4.8-10.8) K/uL RBC 4.17 L (4.7-6.1) M/uL Hgb 13.9 L (14.0-18.0) g/dL Hct 41.9 L (42-52) % Plt Count 141 (130-400) K/uL Comprehensive Metabolic Panel 03/08/21 Range/Units 07:55 Sodium 142 (136-145) mmol/L Potassium 4.0 (3.5-5.1) mmol/L Chloride 110 H (98-107) mmol/L Carbon Dioxide 31 (21-32) mmol/L BUN 20 H (7-18) mg/dl Creatinine 0.79 (0.6-1.4) mg/dl Glucose 94 (70-99) mg/dl Calcium 8.7 (8.5-10.1) mg/dl Intake and Output 03/08/21 03/08/21 03/08/21 06:59 14:59 22:59 Intake Total 1553 / 1553 Output Total 1200 / 1200 Balance 353 / 353 Intake: IV 753 / 753 Potassium Phosphate 9 mmol In 253 / 253 Sodium Chloride 0.9% 250 ml @ 175 mls/hr IV 0945 ONE Rx#: [id number] Sodium Chloride 0.9% 1000ML 500 500 / 500 ml @ 999 mls/hr IV .Q31M ONE Rx#:[id number] Oral 0 / 0 Tube Feeding 500 / 500 Tube Irrigant 300 / 300 Output: Urine 1200 / 1200 Other: Other Intake Source NPO Weight 91.3 kg (1) Hypertension Hypertension type: unspecified Qualified Code(s): I10 - Essential (primary) hypertension
[2021-03-08] MEDS: LATANOPROST 0.005% OP SOLN 2.5 ML BTL OPB SCH (20:57)
[2021-03-08] MEDS: ENOXAPARIN INJ 40 MG/0.4 ML SYR SQ SCH (20:58)
[2021-03-09] MEDS: LEVOTHYROXINE SODIUM 75 MCG TABLET PEG SCH (05:24)
[2021-03-09 07:19] LABS: Hematocrit (blood only) 40.2 % (42-52); Hemoglobin 13.7 g/dL (14.0-18.0); Mean Corpuscular Hemoglobin 33.6 pg (25-34); Mean Corpuscular Hgb Conc 34.1 g/dL (32-36); Mean Corpuscular Volume 98.5 fL (80-100); Mean Platelet Volume 11.8 fL (7.4-10.4); Platelet Count 137 K/uL (130-400); RDW Coefficient of Variation 13.3 % (11.5-14.5); RDW Standard Deviation 48.2 fL (36.4-46.3); Red Blood Count 4.08 M/uL (4.7-6.1); White Blood Count 5.63 K/uL (4.8-10.8)
[2021-03-09 07:54] LABS: BUN Creatinine Ratio 27.1 (10-20); Calcium 8.6 mg/dl (8.5-10.1); Creatinine Clr Calc Pharmacy 104.7 ml/min; Est GFR (African American) 109.2 ml/min; Est GFR (Non-African American) 94.2 ml/min; Magnesium 2.3 mg/dl (1.8-2.4); Potassium 3.8 mmol/L (3.5-5.1)
[2021-03-09 07:55] LABS: Phosphorus 2.9 mg/dl (2.5-4.9)
[2021-03-09] MEDS: FIBERSOURCE HN 1.2 CAL 1000 ML BAG GT SCH ×4 (08:32→20:04)
[2021-03-09] MEDS: TUBE FEEDING WATER FLUSH GT SCH ×8 (08:32→20:04)
[2021-03-09] MEDS: CITALOPRAM 20 MG TAB GT SCH (08:33)
[2021-03-09] MEDS: FAMOTIDINE SUSP 20 MG/2.5 ML UDP PO SCH ×2 (08:33→20:06)
[2021-03-09] MEDS: BRIMONIDINE TARTRATE 0.2% 5ML OPB SCH ×2 (08:33→20:04)
--- NOTE | 2021-03-09 08:34 | Hospitalist Progress Note ---
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 Recent hospitalization 03/04 2/2 to chest pain. ACS r/o and pt underwent dobutamine stress test, negative for inducible ischemia. BP was noted to be elevated so he was started on lisinopril 10mg daily. He took one dose, noted BP last evening systolically in 60s. Responded temporarily to PEG fluids. Acute Hypotension Lightheadedness likely 2/2 to addition of lisinopril pt with hx of orthostatic hypotension, previously on florinef, d/c ~ 3-4 months ago 2/2 to labile BP orthostatic BP obtained - negative (after IVF) ? if 2/2 to trauma to carotid baroreceptor during XRT for tonsillar ca causing inability to regulate BP, vs insufficient fluid/caloric needs through peg vs other etiology of autonomic instability ?Hx of adrenal insufficiency consider re-adding Florinef if orthostasis + ordered aldosterone - pending AM cortisol - normal further workup as outpt by PCP for other intrinsic causes of autonomic instability continued IVF 80cc/hr x 2 L on admission , now stopped Add TEDS, consider abdominal binder if orthostasis 03/07 blood pressure elevated, over 200, received lisinopril at 5 mg. Then systolic blood pressure down to 90s. However patient completely asymptomatic and feeling well. Orthostatics obtained and negative, this is however after IV fluids were given on admission/overnight. Discussed further with cardiology today, who recommends Nitropaste and stop lisinopril. Patient's concerned as when he previously took sublingual nitro, she reports patient was CODE BLUE in the hospital. We will further discuss with cardiology, and will continue to monitor overnight. 03/08 -patient hypotensive this morning, systolic blood pressure in 80s, gave 500 cc bolus of normal saline. Further discussed with cardiology For now plan will be to reintroduce Florinef for the morning and small dose nitro patch in the afternoon. Nitropatch is now applied, patient is feeling well. We will continue to monitor patient overnight 03/09 -patient is to be tolerating Florinef and Nitropatch. Currently no complaints. Has some arthritis pain in his shoulder, will give lidocaine patch. reports previously patient received steroid shot, pt's wonders if that could have caused these changes in blood pressure as well. COPD no acute exac prn nebs Depression continue citalopram, mood stable Hard of hearing/Inability to communicate 2/2 to neck surg to remain at bedside for pt safety Hx of HTN stop lisinopril Glaucoma continue eye gtts Hypothyroidism continue levothyroxine TSH 1.87 Dispo: med tele PCP: Dr. Hart FULL CODE Admission and Anticipated Discharge Date Admission Date: March 07, 2021 Subjective Patient admitted with uncontrolled /labile blood pressure, admitted due to hypotension , recent admission for hypertension and chest pain. Currently patient is sitting up in bed, in no acute distress, patient's is at the bedside. Pt is currently comfortable. has no complaints. Specifically denies any chest pain, shortness of breath, dizziness lightheadedness. Overnight reported some arm pain, reports arthritis in shoulder, patient also received steroid shot in his shoulder. Pt is alert, oriented answering questions appropriately however difficult to understand, patient's is helping with communication. Review of Systems Review of Systems: All systems reviewed & are unremarkable except as noted in Subjective Physical Exam Physical Exam: General Appearance: Moderately built and nourished, no apparent distress Head: normocephalic, Atraumatic, +Hoarse voice, +Hearing impairment Eyes: normal inspection, EOMI Neck: supple, Trachea midline Respiratory/Chest: Normal breath sounds, CTA, No accessory muscle use Cardiovascular: S1, S2, No murmur Abdomen/GI: Soft, Non tender, Bowel sounds present, +PEG tube Extremities/MSK: normal inspection, Trace pedal edema Neurologic/Psych:AAOX3, grossly no focal neurological deficits Skin: normal color, warm Results & Data Results & Data ([facility]) Vital Signs (Past 12 Hours) Vital Signs Temp Pulse Pulse Pulse Resp BP Pulse Ox 03/09/21 07:26 69 03/09/21 05:19 75 140/78 03/09/21 03:26 37 C 71 20 169/95 H 97 03/08/21 23:54 61 03/08/21 22:57 128/70 03/08/21 22:56 36.8 C 63 20 93/48 L 97 Laboratory Results 03/09/21 03/09/21 03/08/21 Range/Units 06:37 06:37 07:59 WBC 5.63 (4.8-10.8) K/uL RBC 4.08 L (4.7-6.1) M/uL Hgb 13.7 L (14.0-18.0) g/dL Hct 40.2 L (42-52) % MCV 98.5 (80-100) fL MCH 33.6 (25-34) pg MCHC 34.1 (32-36) g/dL RDW Std Deviation 48.2 H (36.4-46.3) fL RDW Coeff of Judy 13.3 (11.5-14.5) % Plt Count 137 (130-400) K/uL MPV 11.8 H (7.4-10.4) fL Sodium 141 (136-145) mmol/L Potassium 3.8 (3.5-5.1) mmol/L Chloride 107 (98-107) mmol/L Carbon Dioxide 29 (21-32) mmol/L Anion Gap 5.0 (3-11) BUN 19 H (7-18) mg/dl Creatinine 0.69 (0.6-1.4) mg/dl Est Cr Clr Drug Dosing 104.7 ml/min Est GFR ( Amer) 109.2 ml/min Est GFR (Non-Af Amer) 94.2 ml/min BUN/Creatinine Ratio 27.1 H (10-20) Glucose 88 (70-99) mg/dl Calcium 8.6 (8.5-10.1) mg/dl Phosphorus 2.9 (2.5-4.9) mg/dl Magnesium 2.3 (1.8-2.4) mg/dl Procalcitonin < 0.05 (0-0.5) ng/ml Medications Administered Current Inpatient Medications Acetaminophen (Acetaminophen Susp 325 Mg/10.15 Ml Udc) 650 mg PEG Q4H PRN PRN Reason: Pain or Fever Stop: 04/05/21 18:04 Albuterol (Albuterol Hfa 8 Gm Inhaler) 2 puffs INH QID PRN PRN Reason: Shortness Of Breath Stop: 04/05/21 18:00 Albuterol (Albuterol 0.083% Nebu Soln 3 Ml Vial) 2.5 mg INH Q6H PRN PRN Reason: bronchospasm Stop: 04/05/21 18:00 Brimonidine Tartrate (Brimonidine Tartrate 0.2% 5ml) 1 drops OPB BID [facility] Stop: 04/05/21 20:59 Last Admin: 03/08/21 20:57 Dose: 1 drops Documented by: Citalopram Hydrobromide (Citalopram 20 Mg Tab) 20 mg GT QAM [facility] Stop: 04/05/21 18:00 Last Admin: 03/08/21 07:39 Dose: 20 mg Documented by: Enoxaparin Sodium (Enoxaparin Inj 40 Mg/0.4 Ml Syr) 40 mg SQ Q24H [facility] Stop: 04/05/21 21:59 Last Admin: 03/08/21 20:58 Dose: 40 mg Documented by: Enteral Nutritional Formula (Fibersource Hn 1.2 Palmer 1000 Ml Bag) 1,000 ml GT 0800,1200,1600,2000 [facility]; Protocol Stop: 04/06/21 11:59 Last Admin: 03/08/21 20:58 Dose: 1,000 ml Documented by: Famotidine (Famotidine Susp 20 Mg/2.5 Ml Udp) 20 mg PO BID [facility] Stop: 04/05/21 20:59 Last Admin: 03/08/21 20:57 Dose: 20 mg Documented by: Fludrocortisone Acetate (Fludrocortisone Acetate 0.1 Mg Tab) 0.1 mg PO QAM [facility] Stop: 04/08/21 08:59 Latanoprost (Latanoprost 0.005% Op Soln 2.5 Ml Btl) 1 drops OPB HS [facility] Stop: 04/05/21 20:59 Last Admin: 03/08/21 20:57 Dose: 1 drops Documented by: Levothyroxine Sodium (Levothyroxine Sodium 75 Mcg Tablet) 75 mcg PEG DAILYBB [facility] Stop: 04/06/21 06:29 Last Admin: 03/09/21 05:24 Dose: 75 mcg Documented by: Miscellaneous (Remove Nitro-Dur Patch) 1 ea N/A DAILY@2100 [facility] Stop: 04/07/21 20:59 Last Admin: 03/08/21 20:58 Dose: 1 ea Documented by: Nitroglycerin (Nitroglycerin 0.1 Mg/Hr Patch) 0.1 patch TD DAILY@1300 [facility] Stop: 04/07/21 15:29 Last Admin: 03/08/21 15:50 Dose: 0.1 patch Documented by: Ondansetron HCl (Ondansetron Inj 2 Mg/Ml 2 Ml Vial) 4 mg IV Q6H PRN PRN Reason: Nausea Stop: 04/05/21 18:00 Sterile Water (Tube Feeding Water Flush) 100 ml GT [id number],1959 [facility] Stop: 04/06/21 11:58 Last Admin: 03/08/21 20:58 Dose: 100 ml Documented by: Sterile Water (Tube Feeding Water Flush) 100 ml GT 0830,1230,1630,2030 [facility] Stop: 04/06/21 12:29 Last Admin: 03/08/21 20:58 Dose: 100 ml Documented by: Tramadol HCl (Tramadol Hcl 50 Mg Tablet) 50 mg PO Q6H PRN PRN Reason: Pain Stop: 04/05/21 18:00 (1) Hypertension Hypertension type: unspecified Qualified Code(s): I10 - Essential (primary) hypertension
[2021-03-09] MEDS: FLUDROCORTISONE ACETATE 0.1 MG TAB PO SCH (09:41)
--- NOTE | 2021-03-09 12:45 | Cardiology Progress Note ---
Date of Service March 09, 2021 Assessment & Plan (1) Acute hypotension: (2) Hypertension: Plan: Continue with plan of fludrocortisone in am. Nitroglycerin patch at 1 pm, off at bedtime. First full day of this regimen today. Lovenox for DVT prophylaxis. Admission and Anticipated Discharge Date Admission Date: March 07, 2021 Subjective No complaints at present. Had mild dizziness this am. Apparently had recurrent arm pain last night. Physical Exam Physical Exam: Temp Pulse Resp BP Pulse Ox 36.7 C 58 L 18 102/65 96 03/09/21 11:54 03/09/21 11:54 03/09/21 11:54 03/09/21 11:54 03/09/21 11:54 Constitutional: WD/WN, vitals as above Respiratory: normal respiratory effort, lungs clear to auscultation Cardiovascular: RRR, no murmur, no edema Results & Data ([facility]) Vital Signs (Past 12 Hours) Vital Signs Temp Pulse Pulse Pulse Resp BP BP 03/09/21 11:54 36.7 C 58 L 18 102/65 03/09/21 09:40 57 L 92/54 L 03/09/21 08:00 36.8 C 68 18 160/84 H 03/09/21 07:26 69 03/09/21 05:19 75 140/78 03/09/21 03:26 37 C 71 20 169/95 H Pulse Ox 03/09/21 11:54 96 03/09/21 09:40 03/09/21 08:00 97 03/09/21 07:26 03/09/21 05:19 03/09/21 03:26 97 (1) Hypertension Hypertension type: unspecified Qualified Code(s): I10 - Essential (primary) hypertension
[2021-03-09] MEDS: NITROGLYCERIN 0.1 MG/HR PATCH TD SCH (13:06)
[2021-03-09] MEDS: LATANOPROST 0.005% OP SOLN 2.5 ML BTL OPB SCH (20:05)
[2021-03-09] MEDS: ENOXAPARIN INJ 40 MG/0.4 ML SYR SQ SCH (21:05)
[2021-03-10] MEDS: LEVOTHYROXINE SODIUM 75 MCG TABLET PEG SCH (05:37)
[2021-03-10 07:05] LABS: Hematocrit (blood only) 41.2 % (42-52); Hemoglobin 13.9 g/dL (14.0-18.0); Mean Corpuscular Hemoglobin 33.6 pg (25-34); Mean Corpuscular Hgb Conc 33.7 g/dL (32-36); Mean Corpuscular Volume 99.5 fL (80-100); Mean Platelet Volume 11.8 fL (7.4-10.4); Platelet Count 141 K/uL (130-400); RDW Coefficient of Variation 13.5 % (11.5-14.5); RDW Standard Deviation 48.5 fL (36.4-46.3); Red Blood Count 4.14 M/uL (4.7-6.1); White Blood Count 5.27 K/uL (4.8-10.8)
[2021-03-10 07:39] LABS: Calcium 8.8 mg/dl (8.5-10.1); Creatinine Clr Calc Pharmacy 91.4 ml/min; Est GFR (African American) 103.2 ml/min; Est GFR (Non-African American) 89.1 ml/min; Potassium 4.2 mmol/L (3.5-5.1)
[2021-03-10] MEDS: BRIMONIDINE TARTRATE 0.2% 5ML OPB SCH (07:47)
[2021-03-10] MEDS: CITALOPRAM 20 MG TAB GT SCH (07:48)
[2021-03-10] MEDS: FAMOTIDINE SUSP 20 MG/2.5 ML UDP PO SCH (07:48)
[2021-03-10] MEDS: FLUDROCORTISONE ACETATE 0.1 MG TAB PO SCH (07:48)
[2021-03-10] MEDS: TUBE FEEDING WATER FLUSH GT SCH ×2 (07:53)
[2021-03-10] MEDS: FIBERSOURCE HN 1.2 CAL 1000 ML BAG GT SCH (07:53)
--- NOTE | 2021-03-10 09:24 | Cardiology Progress Note ---
Date of Service March 10, 2021 Assessment & Plan (1) Acute hypotension: (2) Hypertension: Plan: Continue with plan of fludrocortisone in am. Nitroglycerin patch at 1 pm, off at bedtime. Stable for discharge. Follow up with primary care. Admission and Anticipated Discharge Date Admission Date: March 07, 2021 Subjective Mr Canseco is seen in follow up. Spouse is at the bedside. He feels well. He has walked multiple laps in the hallway this am. BPs are stable. Telemetry reveals SR in the 60s. Review of Systems Review of Systems: All systems reviewed & are unremarkable except as noted in HPI & below Physical Exam Physical Exam: Temp Pulse Resp BP Pulse Ox 36.7 C 58 L 18 102/65 96 03/09/21 11:54 03/09/21 11:54 03/09/21 11:54 03/09/21 11:54 03/09/21 11:54 Constitutional: WD/WN, vitals as above + thin Respiratory: normal respiratory effort, lungs clear to auscultation Cardiovascular: RRR, no murmur, no edema Gastrointestinal (Abdomen): normal bowel sounds, soft, nontender, no hepatosplenomegaly Neurologic: PERRL, EOMI, accommodation nl, no face palsy, no dysarthria Other than chronic hearing impairment, no deficits Results & Data ([facility]) Vital Signs (Past 12 Hours) Vital Signs Temp Pulse Pulse Resp BP BP Pulse Ox 03/10/21 08:16 36.9 C 67 20 149/83 H 97 03/10/21 07:18 68 03/10/21 03:33 36.7 C 57 L 18 122/64 97 03/09/21 23:12 60 03/09/21 23:00 36.5 C 63 20 165/84 H 98 (1) Hypertension Hypertension type: unspecified Qualified Code(s): I10 - Essential (primary) hypertension
--- NOTE | 2021-03-10 09:28 | Hospitalist Progress Note ---
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 Recent hospitalization 03/04 2/2 to chest pain. ACS r/o and pt underwent dobutamine stress test, negative for inducible ischemia. BP was noted to be elevated so he was started on lisinopril 10mg daily. He took one dose, noted BP last evening systolically in 60s. Responded temporarily to PEG fluids. Acute Hypotension Lightheadedness likely 2/2 to addition of lisinopril pt with hx of orthostatic hypotension, previously on florinef, d/c ~ 3-4 months ago 2/2 to labile BP orthostatic BP obtained - negative (after IVF) ? if 2/2 to trauma to carotid baroreceptor during XRT for tonsillar ca causing inability to regulate BP, vs insufficient fluid/caloric needs through peg vs other etiology of autonomic instability ?Hx of adrenal insufficiency consider re-adding Florinef if orthostasis + ordered aldosterone - pending AM cortisol - normal further workup as outpt by PCP for other intrinsic causes of autonomic instability continued IVF 80cc/hr x 2 L on admission , now stopped Add TEDS, consider abdominal binder if orthostasis 03/07 blood pressure elevated, over 200, received lisinopril at 5 mg. Then systolic blood pressure down to 90s. However patient completely asymptomatic and feeling well. Orthostatics obtained and negative, this is however after IV fluids were given on admission/overnight. Discussed further with cardiology today, who recommends Nitropaste and stop lisinopril. Patient's concerned as when he previously took sublingual nitro, she reports patient was CODE BLUE in the hospital. We will further discuss with cardiology, and will continue to monitor overnight. 03/08 -patient hypotensive this morning, systolic blood pressure in 80s, gave 500 cc bolus of normal saline. Further discussed with cardiology For now plan will be to reintroduce Florinef for the morning and small dose nitro patch in the afternoon. Nitropatch is now applied, patient is feeling well. We will continue to monitor patient overnight 03/09 -patient is to be tolerating Florinef and Nitropatch. Currently no complaints. Has some arthritis pain in his shoulder, will give lidocaine patch. reports previously patient received steroid shot, pt's wonders if that could have caused these changes in blood pressure as well. 03/10 -patient feels very well today, no complaints. Feels ready for discharge. COPD no acute exac prn nebs Depression continue citalopram, mood stable Hard of hearing/Inability to communicate 2/2 to neck surg to remain at bedside for pt safety Hx of HTN stop lisinopril Glaucoma continue eye gtts Hypothyroidism continue levothyroxine TSH 1.87 Dispo: med tele PCP: Dr. Hart FULL CODE Admission and Anticipated Discharge Date Admission Date: March 07, 2021 Subjective Patient admitted with uncontrolled /labile blood pressure, admitted due to hypotension , recent admission for hypertension and chest pain. Currently patient is sitting up in bed, in no acute distress, patient's is at the bedside. Pt is currently comfortable. has no complaints. Specifically denies any chest pain, shortness of breath, dizziness lightheadedness. Pt is alert, oriented answering questions appropriately however difficult to understand, patient's is helping with communication. Patient actually feels extremely well today, per , he was walking several laps. Pt feels eager for DC. Review of Systems Review of Systems: All systems reviewed & are unremarkable except as noted in Subjective Physical Exam Physical Exam: General Appearance: Moderately built and nourished, no apparent distress Head: normocephalic, Atraumatic, +Hoarse voice, +Hearing impairment Eyes: normal inspection, EOMI Neck: supple, Trachea midline Respiratory/Chest: Normal breath sounds, CTA, No accessory muscle use Cardiovascular: S1, S2, No murmur Abdomen/GI: Soft, Non tender, Bowel sounds present, +PEG tube Extremities/MSK: normal inspection, Trace pedal edema Neurologic/Psych:AAOX3, grossly no focal neurological deficits Skin: normal color, warm Results & Data Results & Data ([facility]) Vital Signs (Past 12 Hours) Vital Signs Temp Pulse Pulse Resp BP BP Pulse Ox 03/10/21 08:16 36.9 C 67 20 149/83 H 97 03/10/21 07:18 68 03/10/21 03:33 36.7 C 57 L 18 122/64 97 03/09/21 23:12 60 03/09/21 23:00 36.5 C 63 20 165/84 H 98 Laboratory Results 03/10/21 03/10/21 03/10/21 Range/Units 08:07 06:45 06:45 WBC 5.27 (4.8-10.8) K/uL RBC 4.14 L (4.7-6.1) M/uL Hgb 13.9 L (14.0-18.0) g/dL Hct 41.2 L (42-52) % MCV 99.5 (80-100) fL MCH 33.6 (25-34) pg MCHC 33.7 (32-36) g/dL RDW Std Deviation 48.5 H (36.4-46.3) fL RDW Coeff of Judy 13.5 (11.5-14.5) % Plt Count 141 (130-400) K/uL MPV 11.8 H (7.4-10.4) fL Sodium 143 (136-145) mmol/L Potassium 4.2 (3.5-5.1) mmol/L Chloride 107 (98-107) mmol/L Carbon Dioxide 32 (21-32) mmol/L Anion Gap 4.0 (3-11) BUN 18 (7-18) mg/dl Creatinine 0.79 (0.6-1.4) mg/dl Est Cr Clr Drug Dosing 91.4 ml/min Est GFR ( Amer) 103.2 ml/min Est GFR (Non-Af Amer) 89.1 ml/min BUN/Creatinine Ratio 23.0 H (10-20) Glucose 62 L (70-99) mg/dl POC Glucose 123 H (70-99) mg/dl Calcium 8.8 (8.5-10.1) mg/dl Medications Administered Current Inpatient Medications Acetaminophen (Acetaminophen Susp 325 Mg/10.15 Ml Udc) 650 mg PEG Q4H PRN PRN Reason: Pain or Fever Stop: 04/05/21 18:04 Albuterol (Albuterol Hfa 8 Gm Inhaler) 2 puffs INH QID PRN PRN Reason: Shortness Of Breath Stop: 04/05/21 18:00 Albuterol (Albuterol 0.083% Nebu Soln 3 Ml Vial) 2.5 mg INH Q6H PRN PRN Reason: bronchospasm Stop: 04/05/21 18:00 Brimonidine Tartrate (Brimonidine Tartrate 0.2% 5ml) 1 drops OPB BID [facility] Stop: 04/05/21 20:59 Last Admin: 03/10/21 07:47 Dose: 1 drops Documented by: Citalopram Hydrobromide (Citalopram 20 Mg Tab) 20 mg GT QAM [facility] Stop: 04/05/21 18:00 Last Admin: 03/10/21 07:48 Dose: 20 mg Documented by: Enoxaparin Sodium (Enoxaparin Inj 40 Mg/0.4 Ml Syr) 40 mg SQ Q24H [facility] Stop: 04/05/21 21:59 Last Admin: 03/09/21 21:05 Dose: 40 mg Documented by: Enteral Nutritional Formula (Fibersource Hn 1.2 Palmer 1000 Ml Bag) 1,000 ml GT 0800,1200,1600,2000 [facility]; Protocol Stop: 04/06/21 11:59 Last Admin: 03/10/21 07:53 Dose: 1,000 ml Documented by: Famotidine (Famotidine Susp 20 Mg/2.5 Ml Udp) 20 mg PO BID [facility] Stop: 04/05/21 20:59 Last Admin: 03/10/21 07:48 Dose: 20 mg Documented by: Fludrocortisone Acetate (Fludrocortisone Acetate 0.1 Mg Tab) 0.1 mg PO QAM [facility] Stop: 04/08/21 08:59 Last Admin: 03/10/21 07:48 Dose: 0.1 mg Documented by: Latanoprost (Latanoprost 0.005% Op Soln 2.5 Ml Btl) 1 drops OPB HS [facility] Stop: 04/05/21 20:59 Last Admin: 03/09/21 20:05 Dose: 1 drops Documented by: Levothyroxine Sodium (Levothyroxine Sodium 75 Mcg Tablet) 75 mcg PEG DAILYBB [facility] Stop: 04/06/21 06:29 Last Admin: 03/10/21 05:37 Dose: 75 mcg Documented by: Lidocaine (Lidocaine 5% 1 Patch) 1 patch TD QAM [facility] Stop: 09/22/21 09:29 Miscellaneous (Remove Nitro-Dur Patch) 1 ea N/A DAILY@2100 [facility] Stop: 04/07/21 20:59 Last Admin: 03/09/21 20:06 Dose: 1 ea Documented by: Miscellaneous (Remove Lidoderm Patch) 1 ea N/A DAILY@2100 [facility] Stop: 04/09/21 20:59 Nitroglycerin (Nitroglycerin 0.1 Mg/Hr Patch) 0.1 patch TD DAILY@1300 [facility] Stop: 04/07/21 15:29 Last Admin: 03/09/21 13:06 Dose: 0.1 patch Documented by: Ondansetron HCl (Ondansetron Inj 2 Mg/Ml 2 Ml Vial) 4 mg IV Q6H PRN PRN Reason: Nausea Stop: 04/05/21 18:00 Sterile Water (Tube Feeding Water Flush) 100 ml GT [id number] [facility] Stop: 04/06/21 11:58 Last Admin: 03/10/21 07:53 Dose: 100 ml Documented by: Sterile Water (Tube Feeding Water Flush) 100 ml GT 0830,1230,1630,2030 [facility] Stop: 04/06/21 12:29 Last Admin: 03/10/21 07:53 Dose: 100 ml Documented by: Tramadol HCl (Tramadol Hcl 50 Mg Tablet) 50 mg PO Q6H PRN PRN Reason: Pain Stop: 04/05/21 18:00 (1) Hypertension Hypertension type: unspecified Qualified Code(s): I10 - Essential (primary) hypertension
[2021-03-10] MEDS ORDERED: LIDOCAINE 5% 1 PATCH TD SCH (09:30)
--- NOTE | 2021-03-10 09:47 | Discharge Summary ---
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 Of significance patient was recently admitted on 03/04 secondary to chest pain. His troponins were negative x3. CTA was negative for PE. He underwent dobutamine stress test which was negative for inducible ischemia, revealed normal EF and grade 1 diastolic dysfunction. He did have mild hypertension and therefore was started on lisinopril 10 mg daily. He has PEG tube due to hx of tonsilar ca. He does tube feedings 4 x a day and only takes meds via peg tube. is at bedside and gives most of history. His bp was 60/30 at home and at home pt c/o dizziness and pre syncope. He took his newly prescribed lisinopril yesterday, but did not take today. He c/o pain in neck that radiates down arm that has since subsided. Denies f/c/s, cough, uri sx, n/v/d, abdominal pain. denies fall. states blood pressure has been low before lisinopril started. This has been going on for 3 months. BP is labile 200s or 60s. Previously he has been on florinef, but has been off of this 3- 4months. In ED patient initial blood pressures were 60 systolic. He received 2 L of IV fluid and blood pressure responded into the low 100s. He currently denies dizziness. 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 with patient is difficult secondary to inability and difficulty speaking as well as inability to hear. Admission Exam Per Admitting Provider General Appearance:Moderately built and nourished, no apparent distress Head: normocephalic, Atraumatic, +Hoarse voice, +Hearing impairment Eyes: normal inspection, EOMI Neck: supple, Trachea midline Respiratory/Chest: Normal breath sounds, CTA, No accessory muscle use Cardiovascular: S1, S2, No murmur Abdomen/GI:Soft, Non tender, Bowel sounds present, +PEG tube Extremities/MSK:normal inspection, Trace pedal edema Neurologic/Psych:AAOX3, grossly no focal neurological deficits Skin: normal color, warm Principal Diagnosis Labile blood pressure, acute hypotension Discharge Exam General Appearance: Moderately built and nourished, no apparent distress Head: normocephalic, Atraumatic, +Hoarse voice, +Hearing impairment Eyes: normal inspection, EOMI Neck: supple, Trachea midline Respiratory/Chest: Normal breath sounds, CTA, No accessory muscle use Cardiovascular: S1, S2, No murmur Abdomen/GI: Soft, Non tender, Bowel sounds present, +PEG tube Extremities/MSK: normal inspection, Trace pedal edema Neurologic/Psych:AAOX3, grossly no focal neurological deficits Skin: normal color, warm Discharge Data Allergies Allergy/AdvReac Type Severity Reaction Status Date / Time Nitrate Analogues Allergy Severe DROP IN BP Verified 03/06/21 13:39 sulfamethoxazole Allergy Intermediate ITCHING Verified 03/06/21 13:39 trimethoprim Allergy Intermediate ITCHING Verified 03/06/21 13:39 levofloxacin Allergy Mild rash all Verified 03/06/21 13:39 over body sertraline Allergy Mild NOSE BLEEDS Verified 03/06/21 13:39 terazosin Allergy Unknown DOES NOT Verified 03/06/21 13:39 KNOW Consultations 03/06/21 14:12 ED Decision to Admit Stat 03/07/21 08:29 Consult Cardiology Routine Ordered Studies 03/06/21 15:21 US duplex renal artery Routine IMPRESSION: No evidence of renal artery stenosis. Hospital Course (1) Acute hypotension: (2) Tonsil carcinoma: (3) COPD (chronic obstructive pulmonary disease) with emphysema: (4) Depression: (5) Hypertension: 75 y/o male w/ hx of tonsillar CA s/p R radical neck dissection s/p chemoradiation with PEG tube placement, COPD, hx of orthostatic hypotension, labile hypertension, hyperlipidemia, gastroparesis, esophageal stenosis, chronic POAG who presents to ED secondary to hypotension. Recent hospitalization 03/04 2/2 to chest pain. ACS r/o and pt underwent dobutamine stress test, negative for inducible ischemia. BP was noted to be elevated so he was started on lisinopril 10mg daily. He took one dose, noted BP last evening systolically in 60s. Responded temporarily to PEG fluids. Acute Hypotension Lightheadedness likely 2/2 to addition of lisinopril pt with hx of orthostatic hypotension, previously on florinef, d/c ~ 3-4 months ago 2/2 to labile BP orthostatic BP obtained - negative (after IVF) ? if 2/2 to trauma to carotid baroreceptor during XRT for tonsillar ca causing inability to regulate BP, vs insufficient fluid/caloric needs through peg vs other etiology of autonomic instability ?Hx of adrenal insufficiency consider re-adding Florinef if orthostasis + ordered aldosterone - pending AM cortisol - normal further workup as outpt by PCP for other intrinsic causes of autonomic instability continued IVF 80cc/hr x 2 L on admission , now stopped Add TEDS, consider abdominal binder if orthostasis 03/07 blood pressure elevated, over 200, received lisinopril at 5 mg. Then systolic blood pressure down to 90s. However patient completely asymptomatic and feeling well. Orthostatics obtained and negative, this is however after IV fluids were given on admission/overnight. Discussed further with cardiology today, who recommends Nitropaste and stop lisinopril. Patient's concerned as when he previously took sublingual nitro, she reports patient was CODE BLUE in the hospital. We will further discuss with cardiology, and will continue to monitor overnight. 03/08 -patient hypotensive this morning, systolic blood pressure in 80s, gave 500 cc bolus of normal saline. Further discussed with cardiology For now plan will be to reintroduce Florinef for the morning and small dose nitro patch in the afternoon. Nitropatch is now applied, patient is feeling well. We will continue to monitor patient overnight 03/09 -patient is to be tolerating Florinef and Nitropatch. Currently no complaints. Has some arthritis pain in his shoulder, will give lidocaine patch. reports previously patient received steroid shot, pt's wonders if that could have caused these changes in blood pressure as well. 03/10 -patient feels very well today, no complaints. Feels ready for discharge. COPD no acute exac prn nebs Depression continue citalopram, mood stable Hard of hearing/Inability to communicate 2/2 to neck surg to remain at bedside for pt safety Hx of HTN stop lisinopril Glaucoma continue eye gtts Hypothyroidism continue levothyroxine TSH 1.87 Dispo: med tele PCP: Dr. Hart FULL CODE Total Time Total Time Spent Total Time Spent (In Minutes): 40 Discharge Plan Discharge Items Patient Disposition: Home - Self-Care Reason For Visit: HYPOTENSION Discharge Diagnosis: Labile blood pressure, acute hypotension Activity: Per Instructions section Non-emergency contact: Primary Care Provider and Specialist Call non-emergency contact if: you have any medication questions and your symptoms worsen Follow-up/Referrals: Sanjiv Hart MD [Primary Care Provider] - (Date & Time 03/12/2021 9:00 AM Provider Maty Maya PA-C Department [facility] ) Diet: Other - See Diet Comment Diet Comment: pt has PEG tub/ feeds Addtl Attending Provider Instructions: Follow-up with your primary care doctor, your appointment was scheduled for you for March 12. 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 There is a lab pending, aldosterone level. This will be available when you see your healthcare providers. Your medications were changed during this hospitalization. Do not take lisinopril anymore. Take Florinef 0.1 mg in the morning and nitroglycerin patch 0.1, in the afternoon. Continue to monitor blood pressure at home as you have been doing. In case that you have an episode when you do not feel well and your systolic blood pressure (the first number) is lower than 90, remove the patch. As discussed, the dose of nitroglycerin is quite low and should not cause any abrupt decrease in blood pressure, however if you experience any, remove the patch. It is also important to use ANGELICA stockings, especially once you are up and out of bed. For shoulder pain, you can try to use lidocaine patch. Prescription was sent to your pharmacy however you can also obtain these [id number], often under the name Salonpas. Pending Studies at Discharge: Yes Studies:: Aldosterone level Stand-Alone Forms: My [facility] [employer], Smoking Cessation Medications and DC Order Prescriptions: New nitroglycerin 0.1 mg/hr Patch 24 Hour 0.1 patch transdermal DAILY@1300 Qty: 30 RF: 0 fludrocortisone 0.1 mg Tablet 0.1 mg PO QAM Qty: 30 RF: 0 lidocaine 5 % Adhesive Patch,Medicated 1 patch transdermal QAM Qty: 15 RF: 0 Continued latanoprost 0.005 % Drops 1 drp OPB HS RF: 0 citalopram 20 mg tablet 20 mg Feeding Tube QAM RF: 0 Nutritional Drink Liquid 2 can Feeding Tube QID RF: 0 brimonidine 0.2 % drops 1 drp OPB BID RF: 0 albuterol sulfate 90 mcg/actuation HFA aerosol inhaler 2 puff INHALATION QID PRN (Reason: Shortness Of Breath) RF: 0 acetaminophen [Tylenol Extra Strength] 500 mg Tablet 1,000 mg PO Q6H PRN (Reason: Pain) RF: 0 albuterol sulfate 2.5 mg /3 mL (0.083 %) solution for nebulization 2.5 mg inhalation Q6H PRN (Reason: bronchospasm) Qty: 75 RF: 0 levothyroxine 75 mcg Tablet 75 mcg feeding tube DAILYBB RF: 0 tramadol 50 mg tablet 50 mg feeding tube Q6H PRN (Reason: Pain) RF: 0 famotidine 20 mg Tablet 20 mg feeding tube BID RF: 0 Discontinued lisinopril 10 mg tablet 10 mg feeding tube QAM RF: 0 Discharge Orders: Discharge Order (Routine); Ordered 03/10/21 Ordered By: Jay Vanessa Admission Data Admit Date/Time: 03/07/21 18:59 Attending Provider: Jay Vanessa Admit Provider: Bang Milian Primary Care Provider: Sanjiv Hart Other Providers: Bang Milian ; Freedom Ennis
== END 2021-03-10 10:10 | disposition home or self-care (01) | DRG 312 ==
LOC: ED 11:04 → 2S 11:04 → SUATTDRO 14:22 → 2S 17:40
DX: Y92.009 Unspecified place in unspecified non-institutional (private) residence as the place of occurrence of the external cause; Z88.8 Allergy status to other drugs, medicaments and biological substances; J43.9 Emphysema, unspecified; T46.4X5A Adverse effect of angiotensin-converting-enzyme inhibitors, initial encounter; I10 Essential (primary) hypertension; I95.2 Hypotension due to drugs; F41.9 Anxiety disorder, unspecified; Z85.89 Personal history of malignant neoplasm of other organs and systems; H40.9 Unspecified glaucoma; H91.90 Unspecified hearing loss, unspecified ear; C09.9 Malignant neoplasm of tonsil, unspecified; Z92.3 Personal history of irradiation; E86.0 Dehydration; E03.9 Hypothyroidism, unspecified; E78.5 Hyperlipidemia, unspecified; Z88.2 Allergy status to sulfonamides; Z83.3 Family history of diabetes mellitus; K31.84 Gastroparesis; Z93.1 Gastrostomy status; N40.0 Benign prostatic hyperplasia without lower urinary tract symptoms

== ENCOUNTER 2021-04-06 14:45 | Inpatient (IN) ==
[2021-04-06 15:32] LABS: Basophils # (auto) 0.02 K/uL (0-0.2); Basophils % (auto) 0.3 %; Eosinophils # (auto) 0.16 K/uL (0-0.5); Eosinophils % (auto) 2.8 %; Hematocrit (blood only) 42.1 % (42-52); Hemoglobin 14.3 g/dL (14.0-18.0); Immature Granulocytes # (auto) 0.02 K/uL (0.00-0.02); Immature Granulocytes % (auto) 0.3 %; Lymphocytes # (auto) 0.73 K/uL (1.2-3.4); Lymphocytes % (auto) 12.8 %; Mean Corpuscular Hemoglobin 33.6 pg (25-34); Mean Corpuscular Volume 99.1 fL (80-100); Mean Platelet Volume 11.5 fL (7.4-10.4); Monocytes # (auto) 0.71 K/uL (0.11-0.59); Monocytes % (auto) 12.4 %; Neutrophils # (auto) 4.08 K/uL (1.4-6.5); Neutrophils % (auto) 71.4 %; Platelet Count 150 K/uL (130-400); RDW Coefficient of Variation 13.3 % (11.5-14.5); RDW Standard Deviation 47.9 fL (36.4-46.3); Red Blood Count 4.25 M/uL (4.7-6.1); White Blood Count 5.72 K/uL (4.8-10.8)
[2021-04-06 15:46] LABS: Alanine Aminotransferase 31 U/L (12-78); Albumin Level 3.2 gm/dl (3.4-5.0); Aspartate Aminotransferase 22 U/L (15-37); BUN Creatinine Ratio 20.3 (10-20); Blood Urea Nitrogen 22 mg/dl (7-18); Calcium 8.7 mg/dl (8.5-10.1); Carbon Dioxide 27 mmol/L (21-32); Chloride 108 mmol/L (98-107); Est GFR (African American) 80.3 ml/min; Est GFR (Non-African American) 69.3 ml/min; Glucose 98 mg/dl (70-99); Lipase 137 U/L (73-393); Magnesium 2.7 mg/dl (1.8-2.4); Sodium 144 mmol/L (136-145)
[2021-04-06 15:57] LABS: Albumin Globulin Ratio 0.8 (0.9-2); Alkaline Phosphatase 83 U/L (45-117); Bilirubin,Total 0.6 mg/dl (0.2-1); Globulin 3.9 gm/dl (2.5-4.0); Thyroid Stimulating Hormone 0.307 uIu/ml (0.300-4.500); Total Protein 7.1 gm/dl (6.4-8.2); Troponin I < 0.015 ng/ml (0-0.045)
--- NOTE | 2021-04-06 16:11 | XRay Report ---
XR chest 1V portable CLINICAL HISTORY: weakness COMPARISON STUDY: March 05 FINDINGS: No pneumothorax. No pleural effusion. Redemonstration of opacity is at the left base which is unchanged since prior study in March 06 1 might represent atelectasis or scarring. Cardiomediastinal silhouette is within normal limits in size. No significant pulmonary vascular congestion.. Aorta is tortuous and calcified. Osseous structures: Mild degenerative changes of the spine IMPRESSION: Atelectasis or scarring at the left base, unchanged since prior. Atherosclerosis. The rest of findings as above. ACT 112: Negative or not required by law. The above report was generated using voice recognition software. It may contain grammatical, syntax o r spelling errors. Electronically signed by: Lucy Jaime DO 04/06/2021 4:10 PM
[2021-04-06 17:19] LABS: Appearance Urine Cloudy (Clear); Bacteria Urine Automated Negative (Negative); Bilirubin Urine Negative (Negative); Blood Urine Negative (Negative); Color Urine Yellow; Glucose Urine UA Negative (Negative); Ketones Urine Negative (Negative); Leukocyte Esterase Urine Negative (Negative); Nitrite Urine Negative (Negative); Protein Urine Negative (Negative); RBC Urine Automated 0-4 /hpf (0-4); Specific Gravity Urine 1.016 (1.000-1.030); Urobilinogen Urine Positive (Negative)
--- NOTE | 2021-04-06 18:08 | Emergency Department Note ---
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 Patient's evidently been having issues where his blood pressure becomes quite high and then throughout the day has episodes where his blood pressure becomes very low. Patient has intermittently been reporting episodes of dizziness and nausea when his blood pressure has been low. has been following over the past week closely and keeping a log of symptoms. She reports it was in the 60s systolic this morning and was hypotensive upon arrival here in the 80s. Denies any fever. No trauma reported or actual syncope. Patient was admitted here about 3 weeks ago for si milar symptoms. Cardiology had change his regimen and added Florinef. Patient had a follow-up with endocrinology shortly after discharge in [place] who stopped this and started him on Norvasc. Has not been taking this for the past 5 days as his blood pressure has been having these low BPs. Patient's not been feeling very well and again and the patient are very concerned about the highs and the low blood pressures. Patient relays concerns via the that if his blood pressures stay high could have a stroke. REVIEW OF SYSTEMS: A total of 10 review of systems was obtained and negative except as stated above in the HPI. PAST MEDICAL HISTORY: As noted above MEDICATIONS: At home occasions SOCIAL HISTORY: Lives at home with PHYSICAL EXAM: GENERAL: alert and oriented in no acute distress on stretcher & patient is hard of hearing Head: normocephalic and atraumatic EYES: No injection, discharge or icterus. PERRL NECK: Trachea midline. Supple with prior radiation changes noted. ENT: Mucous membranes pink and moist. LUNGS: Airway patent. No retractions. Breath sounds clear HEART: Regular rate and rhythm. No chest wall tenderness ABDOMEN: Soft and non-tender, without guarding or rebound. SKIN: Acyanotic, warm, dry, without rashes EXTREMITIES: Without swelling, tenderness or deformity NEUROLOGICAL: No focal deficits. No facial droop. Poor raspy voice quality due to prior head and neck surgeries for cancer. EK bpm normal sinus rhythm with a left axis. No PVC or PAC. QTc 401. No acute ST segment elevation noted. CONTINUOUS CARDIAC MONITORING: was ordered and showed a heart rate of 60s to 70s bpm in normal sinus rhythm Patient's laboratory studies and imaging reviewed. Differential includes Infection, dehydration, metabolic abnormality, hypo/h yperglycemia, electrolyte disturbance, anemia, hypoxia, cardiac sources, intracerebral event, toxicologic, neurologic, as well as other pathologies. IMPRESSION/MEDICAL DECISION MAKING: Patient is a blood blood pressure is low here upon arrival but spontaneously improves. He denies any infectious symptoms and is afebrile. No trauma or syncope reported but history of feeling somewhat dizzy and nauseous at times the reports is correlated with his low blood pressure. Not having significant new focal neurological deficits I doubt this represents acute CVA today. Blood pressure is documented being very high intermittently at home as well. 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 Patient is no longer on nitroglycerin patches or Florinef. Was on amlodipine per endocrinology at [place] until recently. relates the patient's very concerned about possible stroke. No significant focal neurological deficits are noted here. Negative Covid today. EKG is without significant acute changes. Blood work appears without severe abnormality. Do not see significant leukocytosis without fever and a low pro calcitonin, I doubt this is an infectious source. Believe likely a component of autonomic dysfunction likely related to his prior oncological history. Blood pressures again improved here without significant intervention. Patient and however very hesitant to go home and wished for further observation given the blood pressure issues. Will discuss with the hospitalist. DIAGNOSIS: Labile blood pressure DISPOSITION: Hospitalist will evaluate Patient was agreeable with this plan. Past Med/Surg History Medical History Anxiety Aspiration pneumonia CAN NOT TAKE FOOD/LIQUIDS ORALLY Asthma Benign prostatic hyperplasia (Unknown) Chronic back pain COPD (chronic obstructive pulmonary disease) with emphysema Degenerative disc disease Depression Gastroparesis GERD (gastroesophageal reflux disease) Glaucoma Hypertension Hypothyroidism Osteoarthritis Tonsil carcinoma (Unknown) RADIATION AND CHEMO Uses feeding tube Surgical History H/O esophagogastroduodenoscopy (Unknown) WITH PLACEMENT PEG TUBE History of anesthesia reaction SLOW TO WAKE UP History of neck surgery LUMPECTOMY History of tooth extraction S/P arthroscopic knee surgery (Unknown) RT S/P colonoscopy (Unknown) Family History Brother Family history of diabetes mellitus Social History Smoking Status: Never smoker Tobacco Type: Cigarettes Second Hand Exposure: No; Hx Alcohol Use: No Hx Substance Use: No Preferred Language: Maltese 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 Ability: Impaired 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 Hand Frame Required: No Beliefs That Will Affect Care: None marital status: Current Living Situation: Spouse Feels Safe at Home: Yes Assistive Devices: None Allergies Allergies Allergy/AdvReac Type Severity Reaction Status Date / Time Nitrate Analogues Allergy Severe DROP IN BP Verified 04/06/21 16:18 sulfamethoxazole Allergy Intermediate ITCHING Verified 04/06/21 16:18 trimethoprim Allergy Intermediate ITCHING Verified 04/06/21 16:18 levofloxacin Allergy Mild rash all Verified 04/06/21 16:18 over body sertraline Allergy Mild NOSE BLEEDS Verified 04/06/21 16:18 terazosin Allergy Unknown DOES NOT Verified 04/06/21 16:18 KNOW Home Meds Home Medications Medication Instructions Recorded Confirmed citalopram 20 mg tablet 20 mg FEEDING TUBE QAM 05/07/18 04/06/21 food supplemt, lactose-reduced 2 can FEEDING TUBE QID 05/07/18 04/06/21 (Nutritional Drink) latanoprost 0.005 % eye drops 1 drp OPB HS 01/30/19 04/06/21 albuterol sulfate 90 mcg/actuation 2 puff INHALATION QID PRN 11/08/20 04/06/21 aerosol inhaler brimonidine 0.2 % eye drops 1 drp OPB BID 11/08/20 04/06/21 tramadol 50 mg tablet 50 mg FEEDING TUBE Q6H PRN 03/04/21 04/06/21 acetaminophen 500 mg tablet 1,000 mg PO Q6H PRN 03/06/21 04/06/21 (Tylenol Extra Strength) amlodipine 10 mg tablet 10 mg PO DAILY 04/06/21 04/06/21 levothyroxine 88 mcg tablet 88 mcg FEEDING TUBE DAILY 04/06/21 04/06/21 (Euthyrox) Previous Rx's Medication Instructions Recorded albuterol sulfate 2.5 mg INHALATION Q6H PRN #75 ml 11/01/20 Results & Data (ED) Vital Signs Vital Signs - 24 hr 04/06/21 14:58 04/06/21 15:03 04/06/21 15:18 Temperature 36.6 C Temperature Source Temporal Artery Scan Pulse Rate 60 59 L 57 L Pulse Rate [Apical] Pulse Rate from SpO2 Sensor 57 L Pulse Rhythm Regular Pulse Rhythm [Apical] Pulse Strength Normal Pulse Strength [Apical] Respiratory Rate 18 20 19 Respiratory Effort / Characteristics Non-Labored Spontaneous Respiratory Depth Normal Respiratory Pattern Regular Blood Pressure 80/51 L 112/64 95/61 L Blood Pressure [Right Arm] Blood Pressure Mean 60 80 72 Blood Pressure Mean [Right Arm] Pulse Oximetry 97 96 Oxygen Delivery Method Room Air Sepsis Recent Fever Within 48 Hours No Sepsis New/Unexplained Change in Mental Status No Sepsis Action Taken by Nursing No Action Required 04/06/21 15:30 04/06/21 15:40 04/06/21 15:50 Temperature Temperature Source Pulse Rate 56 L 69 56 L Pulse Rate [Apical] Pulse Rate from SpO2 Sensor 56 L 66 56 L Pulse Rhythm Pulse Rhythm [Apical] Pulse Strength Pulse Strength [Apical] Respiratory Rate 18 20 20 Respiratory Effort / Characteristics Respiratory Depth Respiratory Pattern Blood Pressure 110/69 112/71 128/87 Blood Pressure [Right Arm] Blood Pressure Mean 82 84 100 Blood Pressure Mean [Right Arm] Pulse Oximetry 96 97 97 Oxygen Delivery Method Sepsis Recent Fever Within 48 Hours Sepsis New/Unexplained Change in Mental Status Sepsis Action Taken by Nursing 04/06/21 16:00 04/06/21 16:10 04/06/21 16:20 Temperature Temperature Source Pulse Rate 63 60 61 Pulse Rate [Apical] Pulse Rate from SpO2 Sensor 64 61 62 Pulse Rhythm Pulse Rhythm [Apical] Pulse Strength Pulse Strength [Apical] Respiratory Rate 17 16 17 Respiratory Effort / Characteristics Respiratory Depth Respiratory Pattern Blood Pressure 110/67 130/69 122/80 Blood Pressure [Right Arm] Blood Pressure Mean 81 89 94 Blood Pressure Mean [Right Arm] Pulse Oximetry 97 97 97 Oxygen Delivery Method Sepsis Recent Fever Within 48 Hours Sepsis New/Unexplained Change in Mental Status Sepsis Action Taken by Nursing 04/06/21 16:22 04/06/21 16:23 04/06/21 16:24 Temperature 36.8 C Temperature Source Oral Pulse Rate 62 Pulse Rate [Apical] 62 Pulse Rate from SpO2 Sensor Pulse Rhythm Regular Pulse Rhythm [Apical] Regular Pulse Strength Pulse Strength [Apical] Normal Respiratory Rate 16 16 Respiratory Effort / Characteristics Non-Labored Respiratory Depth Normal Respiratory Pattern Regular Blood Pressure Blood Pressure [Right Arm] 122/80 Blood Pressure Mean Blood Pressure Mean [Right Arm] 94 Pulse Oximetry 97 97 97 Oxygen Delivery Method Room Air Room Air Room Air Sepsis Recent Fever Within 48 Hours Sepsis New/Unexplained Change in Mental Status Sepsis Action Taken by Nursing 04/06/21 16:30 04/06/21 16:40 04/06/21 16:50 Temperature Temperature Source Pulse Rate 65 64 64 Pulse Rate [Apical] Pulse Rate from SpO2 Sensor 64 65 64 Pulse Rhythm Pulse Rhythm [Apical] Pulse Strength Pulse Strength [Apical] Respiratory Rate 16 18 19 Respiratory Effort / Characteristics Respiratory Depth Respiratory Pattern Blood Pressure 142/83 H 136/84 137/85 Blood Pressure [Right Arm] Blood Pressure Mean 102 101 102 Blood Pressure Mean [Right Arm] Pulse Oximetry 96 97 97 Oxygen Delivery Method Sepsis Recent Fever Within 48 Hours Sepsis New/Unexplained Change in Mental Status Sepsis Action Taken by Nursing 04/06/21 17:00 04/06/21 17:04 Temperature 36.8 C Temperature Source Oral Pulse Rate 61 Pulse Rate [Apical] 68 Pulse Rate from SpO2 Sensor 61 Pulse Rhythm Pulse Rhythm [Apical] Regular Pulse Strength Pulse Strength [Apical] Normal Respiratory Rate 21 16 Respiratory Effort / Characteristics Non-Labored Respiratory Depth Normal Respiratory Pattern Blood Pressure 140/86 Blood Pressure [Right Arm] 140/86 Blood Pressure Mean 104 Blood Pressure Mean [Right Arm] 104 Pulse Oximetry 98 99 Oxygen Delivery Method Room Air Sepsis Recent Fever Within 48 Hours Sepsis New/Unexplained Change in Mental Status Sepsis Action Taken by Nursing Laboratory Data Result diagrams: 04/06/21 15:15 04/06/21 15:15 Lab Results 04/06/21 04/06/21 04/06/21 Range/Units 15:15 15:15 15:15 WBC 5.72 (4.8-10.8) K/uL RBC 4.25 L (4.7-6.1) M/uL Hgb 14.3 (14.0-18.0) g/dL Hct 42.1 (42-52) % MCV 99.1 (80-100) fL MCH 33.6 (25-34) pg MCHC 34.0 (32-36) g/dL RDW Std Deviation 47.9 H (36.4-46.3) fL RDW Coeff of Judy 13.3 (11.5-14.5) % Plt Count 150 (130-400) K/uL MPV 11.5 H (7.4-10.4) fL Immature Gran % (Auto) 0.3 % Neut % (Auto) 71.4 % Lymph % (Auto) 12.8 % [place] % (Auto) 12.4 % Eos % (Auto) 2.8 % Baso % (Auto) 0.3 % Neut # (Auto) 4.08 (1.4-6.5) K/uL Lymph # (Auto) 0.73 L (1.2-3.4) K/uL [place] # (Auto) 0.71 H (0.11-0.59) K/uL Eos # (Auto) 0.16 (0-0.5) K/uL Baso # (Auto) 0.02 (0-0.2) K/uL Immature Gran # (Auto) 0.02 (0.00-0.02) K/uL Sodium 144 (136-145) mmol/L Potassium 4.0 (3.5-5.1) mmol/L Chloride 108 H (98-107) mmol/L Carbon Dioxide 27 (21-32) mmol/L Anion Gap 8.0 (3-11) BUN 22 H (7-18) mg/dl Creatinine 1.06 (0.6-1.4) mg/dl Est Cr Clr Drug Dosing Not Reportable Est GFR ( Amer) 80.3 ml/min Est GFR (Non-Af Amer) 69.3 ml/min BUN/Creatinine Ratio 20.3 H (10-20) Glucose 98 (70-99) mg/dl Calcium 8.7 (8.5-10.1) mg/dl Magnesium 2.7 H (1.8-2.4) mg/dl Total Bilirubin 0.6 (0.2-1) mg/dl AST 22 (15-37) U/L ALT 31 (12-78) U/L Alkaline Phosphatase 83 (45-117) U/L Troponin I < 0.015 (0-0.045) ng/ml Total Protein 7.1 (6.4-8.2) gm/dl Albumin 3.2 L (3.4-5.0) gm/dl Globulin 3.9 (2.5-4.0) gm/dl Albumin/Globulin Ratio 0.8 L (0.9-2) Lipase 137 (73-393) U/L Procalcitonin < 0.05 (0-0.5) ng/ml TSH 0.307 (0.300-4.500) uIu/ml Urine Color Urine Appearance (Clear) Urine pH (4.5-7.5) Ur Specific [place] (1.000-1.030) Urine Protein (Negative) Urine Glucose (UA) (Negative) Urine Ketones (Negative) Urine Blood (Negative) Urine Nitrite (Negative) Urine Bilirubin (Negative) Urine Urobilinogen (Negative) Ur Leukocyte Esterase (Negative) Urine WBC (Auto) (0-5) /hpf Urine RBC (Auto) (0-4) /hpf U Hyaline Cast (Auto) (0-5) /lpf U Epithel Cells (Auto) (0-5) /lpf Urine Bacteria (Auto) (Negative) COVID-19 Eval Order SARS-CoV-2 (PCR) (Negative) 04/06/21 04/06/21 04/06/21 Range/Units 15:45 15:45 17:05 WBC (4.8-10.8) K/uL RBC (4.7-6.1) M/uL Hgb (14.0-18.0) g/dL Hct (42-52) % MCV (80-100) fL MCH (25-34) pg MCHC (32-36) g/dL RDW Std Deviation (36.4-46.3) fL RDW Coeff of Judy (11.5-14.5) % Plt Count (130-400) K/uL MPV (7.4-10.4) fL Immature Gran % (Auto) % Neut % (Auto) % Lymph % (Auto) % [place] % (Auto) % Eos % (Auto) % Baso % (Auto) % Neut # (Auto) (1.4-6.5) K/uL Lymph # (Auto) (1.2-3.4) K/uL [place] # (Auto) (0.11-0.59) K/uL Eos # (Auto) (0-0.5) K/uL Baso # (Auto) (0-0.2) K/uL Immature Gran # (Auto) (0.00-0.02) K/uL Sodium (136-145) mmol/L Potassium (3.5-5.1) mmol/L Chloride (98-107) mmol/L Carbon Dioxide (21-32) mmol/L Anion Gap (3-11) BUN (7-18) mg/dl Creatinine (0.6-1.4) mg/dl Est Cr Clr Drug Dosing Est GFR ( Amer) ml/min Est GFR (Non-Af Amer) ml/min BUN/Creatinine Ratio (10-20) Glucose (70-99) mg/dl Calcium (8.5-10.1) mg/dl Magnesium (1.8-2.4) mg/dl Total Bilirubin (0.2-1) mg/dl AST (15-37) U/L ALT (12-78) U/L Alkaline Phosphatase (45-117) U/L Troponin I (0-0.045) ng/ml Total Protein (6.4-8.2) gm/dl Albumin (3.4-5.0) gm/dl Globulin (2.5-4.0) gm/dl Albumin/Globulin Ratio (0.9-2) Lipase (73-393) U/L Procalcitonin (0-0.5) ng/ml TSH (0.300-4.500) uIu/ml Urine Color Yellow Urine Appearance Cloudy A (Clear) Urine pH 8.0 H (4.5-7.5) Ur Specific [place] 1.016 (1.000-1.030) Urine Protein Negative (Negative) Urine Glucose (UA) Negative (Negative) Urine Ketones Negative (Negative) Urine Blood Negative (Negative) Urine Nitrite Negative (Negative) Urine Bilirubin Negative (Negative) Urine Urobilinogen Positive H (Negative) Ur Leukocyte Esterase Negative (Negative) Urine WBC (Auto) 1-5 (0-5) /hpf Urine RBC (Auto) 0-4 (0-4) /hpf U Hyaline Cast (Auto) 1-5 (0-5) /lpf U Epithel Cells (Auto) 5-10 H (0-5) /lpf Urine Bacteria (Auto) Negative (Negative) COVID-19 Eval Order Covid19 at [facility] SARS-CoV-2 (PCR) NEGATIVE (Negative) Administered Medications Brimonidine Tartrate (Brimonidine Tartrate 0.2% 5ml) 1 drops OPB BID GIRISH Stop: 05/06/21 21:44 Last Admin: 04/06/21 22:16 Dose: 1 drops Documented by: [id number] Latanoprost (Latanoprost 0.005% Op Soln 2.5 Ml Btl) 1 drops OPB HS GIRISH Stop: 05/06/21 20:59 Last Admin: 04/06/21 22:09 Dose: 1 drops Documented by: [id number] Imaging Data Radiologist's Impression: Chest X-Ray 04/06/21 15:24 XR chest 1V portable CLINICAL HISTORY: weakness COMPARISON STUDY: March 05 FINDINGS: No pneumothorax. No pleural effusion. Redemonstration of opacity is at the left base which is unchanged since prior study in March 06, 2021 might represent atelectasis or scarring. Cardiomediastinal silhouette is within normal limits in size. No significant pulmonary vascular congestion.. Aorta is tortuous and calcified. Osseous structures: Mild degenerative changes of the spine IMPRESSION: Atelectasis or scarring at the left base, unchanged since prior. Atherosclerosis. The rest of findings as above. ACT 112: Negative or not required by law. The above report was generated using voice recognition software. It may contain grammatical, syntax or spelling errors. Electronically signed by: Lucy Jaime DO 04/06/2021 4:10 PM Discharge Plan Visit Data Chief Complaint: Hypotension Stated Complaint: REALLY LOW BP ED Provider: Josr Chen Discharge Problem: Labile blood pressure Patient Disposition: Being Evaluated by Hospitalist Discharge Instructions Interventions: ED Discharge Assessment Last Done: 04/06/21 20:00
--- NOTE | 2021-04-06 18:27 | History & Physical Report ---
Date of Service April 06, 2021 Assessment & Plan (1) Labile blood pressure: Plan: On discharge on 03/10 the patient was sent home on Florinef 0.1 mg daily and Nitropatch 0.1 mg/h in the afternoon at 1300. A few days later he was seen by [facility] [place] who stopped those medications and started amlodipine 10 mg. reports a persistent fluctuation in blood pressure since that time with concerning hypo and hypertension. At this point she is looking for a reevaluation and guidance. She would like him observed overnight with frequent blood pressure monitoring. We will also contact [facility] cardiology who has been involved in his care to make additional recommendations for her. Currently he is normotensive with a systolic blood pressure of 140. He did come in with a systolic blood pressure of 95, however this improved spontaneously without being given any medication in the ER. He is well-appearing and has no chest pain or other symptoms at this time. (2) Glaucoma: Plan: Continue home eyedrops. 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 (4) DVT prophylaxis: Plan: Lovenox Full code Disposition-to med telemetry on observation status overnight. Likely home in a.m. after monitoring of blood pressure overnight and having cardiology evaluate with recommendations for blood pressure management. Jimena Pimentel DO [facility] Hospitalist History of Present Illness Chief Complaint: labile blood pressure Primary Care Provider: Sanjiv Hart MD Mr. Canseco is a 75-year-old man with a history of tonsil cancer who underwent surgery and radiation therapy with subsequent difficulty speaking and a PEG tube. Since the surgery he has had difficulty with blood pressure control. He was recently admitted at [facility] from 03/06-03/10 for labile blood pressure. New medications during that visit included reintroduction of fludrocortisone 0.1 mg tablet in the morning followed by a nitroglycerin 0.1 mg/h patch taking in the afternoon at 1:00. Lisinopril was discontinued. Since discharge he was seen it [facility] endocr[facility] where he was instructed to stop nitroglycerin patch and Florinef and start amlodipine 10 mg daily. He has a history of hypothyroidism and was continued on his same levothyroxine 88 mcg daily for now. His started noticing hypotension that was significant with blood pressures reported 60-80 systolic at times. There seem to be a trend of hypotension in the afternoon to evening. For the last 4 days she has kept him off the amlodipine and off the Florinef and nitroglycerin. His blood pressure has gone from 60/30 with associated nausea and ranged up to 185 systolic. Of note, when his blood pressure was 60/30 this was last night. To help correct that she fed him to a made of juice "because it had salt in it" and repeated the blood pressure every hour getting the blood pressure only up to 80 systolic. This was the driving factor in her bringing him in today. The patient denies any chest pain, lightheadedness, fevers, chills or other infectious symptoms, GI upset or abdominal pain, strokelike symptoms. He does have chronic left facial droop. He does report a mild posterior headache. Denies any visual changes. He has speech issues at baseline with no known changes. He is nourished through a PEG tube using boost and free water. There have been no changes to his regimen here. In summary, his is very concerned about the fluctuations in his blood pressure, and she reported his main concern is that he will have a stroke. She feels his blood pressure has been more labile since his Covid vaccination in September. Allergies Allergy/AdvReac Type Severity Reaction Status Date / Time Nitrate Analogues Allergy Severe DROP IN BP Verified 04/06/21 16:18 sulfamethoxazole Allergy Intermediate ITCHING Verified 04/06/21 16:18 trimethoprim Allergy Intermediate ITCHING Verified 04/06/21 16:18 levofloxacin Allergy Mild rash all Verified 04/06/21 16:18 over body sertraline Allergy Mild NOSE BLEEDS Verified 04/06/21 16:18 terazosin Allergy Unknown DOES NOT Verified 04/06/21 16:18 KNOW Home Medications Medication Instructions Recorded Confirmed Type citalopram 20 mg tablet 20 mg FEEDING TUBE QAM 05/07/18 04/06/21 History food supplemt, lactose-reduced 2 can FEEDING TUBE QID 05/07/18 04/06/21 History (Nutritional Drink) latanoprost 0.005 % eye drops 1 drp OPB HS 01/30/19 04/06/21 History albuterol sulfate 2.5 mg INHALATION Q6H PRN #75 ml 11/01/20 04/06/21 Rx albuterol sulfate 90 mcg/actuation 2 puff INHALATION QID PRN 11/08/20 04/06/21 History aerosol inhaler brimonidine 0.2 % eye drops 1 drp OPB BID 11/08/20 04/06/21 History tramadol 50 mg tablet 50 mg FEEDING TUBE Q6H PRN 03/04/21 04/06/21 History acetaminophen 500 mg tablet 1,000 mg PO Q6H PRN 03/06/21 04/06/21 History (Tylenol Extra Strength) amlodipine 10 mg tablet 10 mg PO DAILY 04/06/21 04/06/21 History levothyroxine 88 mcg tablet 88 mcg FEEDING TUBE DAILY 04/06/21 04/06/21 History (Euthyrox) Past Med/Surg History Medical History Anxiety Aspiration pneumonia CAN NOT TAKE FOOD/LIQUIDS ORALLY Asthma Benign prostatic hyperplasia (Unknown) Chronic back pain COPD (chronic obstructive pulmonary disease) with emphysema Degenerative disc disease Depression Gastroparesis GERD (gastroesophageal reflux disease) Glaucoma Hypertension Hypothyroidism Osteoarthritis Tonsil carcinoma (Unknown) RADIATION AND CHEMO Uses feeding tube Surgical History H/O esophagogastroduodenoscopy (Unknown) WITH PLACEMENT PEG TUBE History of anesthesia reaction SLOW TO WAKE UP History of neck surgery LUMPECTOMY History of tooth extraction S/P arthroscopic knee surgery (Unknown) RT S/P colonoscopy (Unknown) Family History Brother Family history of diabetes mellitus Social History Smoking Status: Never smoker Tobacco Type: Cigarettes Second Hand Exposure: No; Hx Alcohol Use: No Hx Substance Use: No Preferred Language: Vietnamese 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 Ability: Impaired Outdoor Recreation Specialist Required: No Beliefs That Will Affect Care: None marital status: Current Living Situation: Spouse Feels Safe at Home: Yes Assistive Devices: None Review of Systems Review of Systems: At least ten systems were reviewed and negative except as indicated in HPI above. Physical Exam Physical Exam: CONSTITUTIONAL: WNWD, vitals as above, generally well- appearing EYES: PERRL, normal conjunctivae, no scleral icterus ENT: external ear and nose normal, MMM NECK: trachea midline RESPIRATORY: clear to auscultation bilaterally, no crackles, rales or wheezes, normal respiratory effort CARDIOVASCULAR: regular rate and rhythm, S1 and 2 heard without murmurs, gallops or rubs, no JVD, no peripheral edema, no carotid bruits CHEST: inspection of chest was normal GASTROINTESTINAL: soft, nontender, ND, no guarding MUSCULOSKELETAL: strength 5/5 throughout, head is normocephalic and atraumatic SKIN: warm and dry NEUROLOGIC: CN 2-12 grossly intact, some left sided facial droop when he smiles-at baseline, no sensory deficit, normal cognition, abnormal raspy speech- at baseline, no tremor PSYCHIATRIC: alert cooperative and oriented to person, place and time. Euthymic mood, makes good eye contact, language grossly intact, recent and remote memory grossly intact. Results & Data Results & Data ([facility]) Vital Signs (Past 12 Hours) Vital Signs Temp Pulse Pulse Resp BP BP Pulse Ox 04/06/21 17:04 36.8 C 68 16 140/86 99 04/06/21 17:00 61 21 140/86 98 04/06/21 16:50 64 19 137/85 97 04/06/21 16:40 64 18 136/84 97 04/06/21 16:30 65 16 142/83 H 96 04/06/21 16:24 36.8 C 62 16 122/80 97 04/06/21 16:23 62 16 97 04/06/21 16:22 97 04/06/21 16:20 61 17 122/80 97 04/06/21 16:10 60 16 130/69 97 04/06/21 16:00 63 17 110/67 97 04/06/21 15:50 56 L 20 128/87 97 04/06/21 15:40 69 20 112/71 97 04/06/21 15:30 56 L 18 110/69 96 04/06/21 15:18 57 L 19 95/61 L 96 04/06/21 15:03 59 L 20 112/64 04/06/21 14:58 36.6 C 60 18 80/51 L 97 Laboratory Results Short CBC 04/06/21 Range/Units 15:15 WBC 5.72 (4.8-10.8) K/uL Hgb 14.3 (14.0-18.0) g/dL Hct 42.1 (42-52) % Plt Count 150 (130-400) K/uL BMP 04/06/21 15:15 Sodium 144 Potassium 4.0 Chloride 108 H Carbon Dioxide 27 BUN 22 H Creatinine 1.06 Glucose 98 Calcium 8.7 Cardiac Enzymes 04/06/21 Range/Units 15:15 Troponin I < 0.015 (0-0.045) ng/ml Liver Function 04/06/21 Range/Units 15:15 Total Bilirubin 0.6 (0.2-1) mg/dl AST 22 (15-37) U/L ALT 31 (12-78) U/L Alkaline Phosphatase 83 (45-117) U/L Albumin 3.2 L (3.4-5.0) gm/dl Urine 04/06/21 Range/Units 17:05 Urine Color Yellow Urine Appearance Cloudy A (Clear) Urine pH 8.0 H (4.5-7.5) Ur Specific Labadie 1.016 (1.000-1.030) Urine Protein Negative (Negative) Urine Glucose (UA) Negative (Negative) Code Status & VTE Plan VTE Prophylaxis Plan VTE Prophylaxis will be ordered: Yes
[2021-04-06] MEDS ORDERED: ALBUTEROL HFA 8 GM INHALER INH PRN (20:36)
[2021-04-06] MEDS ORDERED: traMADol HCL 50 MG TABLET NG PRN (20:36)
[2021-04-06] MEDS ORDERED: ALBUTEROL 0.083% NEBU SOLN 3 ML VIAL INH PRN (20:36)
--- NOTE | 2021-04-06 20:50 | Electrocardiogram Report ---
Test Reason : Blood Pressure : / mmHG Vent. Rate : 062 BPM Atrial Rate : 062 BPM P-R Int : 136 ms QRS Dur : 086 ms QT Int : 396 ms P-R-T Axes : 025 -33 032 degrees QTc Int : 401 ms Normal sinus rhythm Left axis deviation Abnormal ECG When compared with ECG of 06-MAR-2021 11:20, No significant change was found Confirmed by Cipriano Stark ([id number]) on 04/06/2021 8:49:53 PM Referred By: REFERRED SELF Confirmed By:Cipriano Stark
[2021-04-06] MEDS ORDERED: BRIMONIDINE TART 0.2% OP SOLN PER DROP CHARGE OPB SCH (21:00)
[2021-04-06] MEDS: LATANOPROST 0.005% OP SOLN 2.5 ML BTL OPB SCH (22:09)
[2021-04-06] MEDS: BRIMONIDINE TARTRATE 0.2% 5ML OPB SCH (22:16)
[2021-04-07] MEDS ORDERED: D5W AND NSS 1,000 ML IV SCH (02:15)
[2021-04-07] MEDS: LEVOTHYROXINE SODIUM 88 MCG TABLET PEG SCH (06:05)
[2021-04-07] MEDS: CITALOPRAM 20 MG TAB PEG SCH (08:09)
[2021-04-07] MEDS: ENOXAPARIN INJ 40 MG/0.4 ML SYR SQ SCH (08:09)
[2021-04-07] MEDS: BRIMONIDINE TARTRATE 0.2% 5ML OPB SCH ×2 (08:09→20:19)
[2021-04-07] MEDS ORDERED: TUBE FEEDING WATER FLUSH GT SCH ×2 (08:45→09:31)
--- NOTE | 2021-04-07 11:58 | Cardiology Consultation ---
Date of Consultation April 07, 2021 Assessment & Plan (1) Labile blood pressure: (2) Acute hypotension: Patient with long history of labile BP readings. Intermittent hypotension with dizziness and intermittent high BP readings noted at home. He previously trialed JOHNATHON/ARB with hypotension. He was started on Florinef and nitro paste with improvement, but this was stopped by outside providers and he was transitioned to high dose amlodipine at 10 mg, resulting in hypotension as well. His BP readings since admission, have been fairly well controlled with an isolated high/low reading, but predominantly in the 120-140 range. It appears he is more symptomatic with low readings than the isolated high readings. I would recommend avoidance of other antihypertensive therapies at this time, as it seems he becomes hypotensive very quickly post medication. Would allow BP to run slightly higher in this individual to avoid these hypotensive episodes No med changes at this time. will monitor vital signs. Could consider retrial of nitropaste with possible midodrine for hypotension Case to be discussed with Dr. Arredondo Supervising Physician Co-Signing Physician Notes I have discussed the case with Ms. Murillo, reviewed the medical record and examined the patient today. He is not a good historian due to his previous laryngectomy. He does have labile blood pressure due to his previous surgery related to the carotid bulb. Antihypertensive medications cause him to become quickly hypotensive. In a situation like this sometimes it is best to allow the patient's blood pressure to remain a little bit high instead of bringing on symptomatic hypotension with medications. If he does continue to have significant postural hypotension then of course it could be treated with midodrine. History of Present Illness Reason for Consultation: labile hypertension Requesting Physician: Dr. Pimentel Attending Physician: Dr. Arredondo History of Present Illness Patient is a 75 year old male, known to [facility] cardiology after several recent admissions. Initially evaluated in February for atypical chest pain and underwent a dobutamine stress echocardiogram that was negative. Repeat admissi on in February 2021 for labile hypertension with periods of hypotension. 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 He takes nothing by mouth and is fed with a PEG tube for which he takes his medications. He has had a history of labile blood pressure since his surgery. Due to periods of hypotension and hypertension he was prescribed low dose Florinef and nitro paste on discharge. 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 Florinef and nitro paste were discontinued and amlodipine 10 mg was initiated. Unfortunately this resulted in significant hypotension. According to documentation, patient was having readings in the 60's and came to ER for evaluation. Since admission BP has been fairly well controlled with isolated reading of 180/90, improving to 150's without therapy. He denies current symptoms of dizziness or lightheadedness at time of consult. It is difficult to get significant information from the patient due to his extensive neck/throat surgery and speech difficulties. He is requesting discharge. Denies complaints. Allergies Allergy/AdvReac Type Severity Reaction Status Date / Time Nitrate Analogues Allergy Severe DROP IN BP Verified 04/06/21 16:18 sulfamethoxazole Allergy Intermediate ITCHING Verified 04/06/21 16:18 trimethoprim Allergy Intermediate ITCHING Verified 04/06/21 16:18 levofloxacin Allergy Mild rash all Verified 04/06/21 16:18 over body sertraline Allergy Mild NOSE BLEEDS Verified 04/06/21 16:18 terazosin Allergy Unknown DOES NOT Verified 04/06/21 16:18 KNOW Home Medications Medication Instructions Recorded Confirmed Type citalopram 20 mg tablet 20 mg FEEDING TUBE QAM 05/07/18 04/06/21 History food supplemt, lactose-reduced 2 can FEEDING TUBE QID 05/07/18 04/06/21 History (Nutritional Drink) latanoprost 0.005 % eye drops 1 drp OPB HS 01/30/19 04/06/21 History albuterol sulfate 2.5 mg INHALATION Q6H PRN #75 ml 11/01/20 04/06/21 Rx albuterol sulfate 90 mcg/actuation 2 puff INHALATION QID PRN 11/08/20 04/06/21 History aerosol inhaler brimonidine 0.2 % eye drops 1 drp OPB BID 11/08/20 04/06/21 History tramadol 50 mg tablet 50 mg FEEDING TUBE Q6H PRN 03/04/21 04/06/21 History acetaminophen 500 mg tablet 1,000 mg PO Q6H PRN 03/06/21 04/06/21 History (Tylenol Extra Strength) amlodipine 10 mg tablet 10 mg PO DAILY 04/06/21 04/06/21 History levothyroxine 88 mcg tablet 88 mcg FEEDING TUBE DAILY 04/06/21 04/06/21 History (Euthyrox) Patient History Medical History Anxiety Aspiration pneumonia CAN NOT TAKE FOOD/LIQUIDS ORALLY Asthma Benign prostatic hyperplasia (Unknown) Chronic back pain COPD (chronic obstructive pulmonary disease) with emphysema Degenerative disc disease Depression Gastroparesis GERD (gastroesophageal reflux disease) Glaucoma Hypertension Hypothyroidism Osteoarthritis Tonsil carcinoma (Unknown) RADIATION AND CHEMO Uses feeding tube Surgical History H/O esophagogastroduodenoscopy (Unknown) WITH PLACEMENT PEG TUBE History of anesthesia reaction SLOW TO WAKE UP History of neck surgery LUMPECTOMY History of tooth extraction S/P arthroscopic knee surgery (Unknown) RT S/P colonoscopy (Unknown) Family History Brother Family history of diabetes mellitus Social History Smoking Status: Former smoker Tobacco Type: Cigarettes Second Hand Exposure: No; Do You Dip or Chew Tobacco: No; Hx Alcohol Use: No Hx Substance Use: No Preferred Language: Wolof 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 Ability: Impaired Equipment Records Supervisor Required: No Beliefs That Will Affect Care: None marital status: Current Living Situation: Spouse Other Information That Helps Us Care for You: No Feels Safe at Home: Yes Safety Concerns: Feels Safe At This Time Assistive Devices: None Review of Systems Review of Systems: Other (Limited ROS due to speech difficulty with throat cancer) Physical Exam Constitutional: WD/WN, vitals as above ENMT: Mouth: + oropharynx abnormality (chronic left facial droop) and + edentulous Neck: + abnormal visual inspection Respiratory: normal respiratory effort, lungs clear to auscultation Cardiovascular: RRR, no murmur, no edema Gastrointestinal (Abdomen): normal bowel sounds, soft, nontender, no hepatosplenomegaly Musculoskeletal: no cyanosis or clubbing, extremities motor strength 5/5 Skin: no rashes, warm and dry Psychiatric: A+Ox3, euthymic affect Results & Data ([facility]) Vital Signs (Past 12 Hours) Vital Signs Temp Pulse Resp BP BP Pulse Ox 04/07/21 11:11 76/44 L 04/07/21 11:08 36.5 C 55 L 16 79/64 L 73/39 L 96 04/07/21 07:39 36.6 C 66 18 156/97 H 96 04/07/21 03:52 36.5 C 60 18 180/94 H 95 Laboratory Results 04/07/21 04/07/21 04/07/21 Range/Units 11:51 02:03 01:50 WBC (4.8-10.8) K/uL RBC (4.7-6.1) M/uL Hgb (14.0-18.0) g/dL Hct (42-52) % MCV (80-100) fL MCH (25-34) pg MCHC (32-36) g/dL RDW Std Deviation (36.4-46.3) fL RDW Coeff of Judy (11.5-14.5) % Plt Count (130-400) K/uL MPV (7.4-10.4) fL Immature Gran % (Auto) % Neut % (Auto) % Lymph % (Auto) % Saunders % (Auto) % Eos % (Auto) % Baso % (Auto) % Neut # (Auto) (1.4-6.5) K/uL Lymph # (Auto) (1.2-3.4) K/uL Saunders # (Auto) (0.11-0.59) K/uL Eos # (Auto) (0-0.5) K/uL Baso # (Auto) (0-0.2) K/uL Immature Gran # (Auto) (0.00-0.02) K/uL Sodium (136-145) mmol/L Potassium (3.5-5.1) mmol/L Chloride (98-107) mmol/L Carbon Dioxide (21-32) mmol/L Anion Gap (3-11) BUN (7-18) mg/dl Creatinine (0.6-1.4) mg/dl Est Cr Clr Drug Dosing Est GFR ( Amer) ml/min Est GFR (Non-Af Amer) ml/min BUN/Creatinine Ratio (10-20) Glucose (70-99) mg/dl POC Glucose 156 H 90 92 (70-99) mg/dl Calcium (8.5-10.1) mg/dl Magnesium (1.8-2.4) mg/dl Total Bilirubin (0.2-1) mg/dl AST (15-37) U/L ALT (12-78) U/L Alkaline Phosphatase (45-117) U/L Troponin I (0-0.045) ng/ml Total Protein (6.4-8.2) gm/dl Albumin (3.4-5.0) gm/dl Globulin (2.5-4.0) gm/dl Albumin/Globulin Ratio (0.9-2) Lipase (73-393) U/L Procalcitonin (0-0.5) ng/ml TSH (0.300-4.500) uIu/ml Random Cortisol mcg/dl Urine Color Urine Appearance (Clear) Urine pH (4.5-7.5) Ur Specific [place] (1.000-1.030) Urine Protein (Negative) Urine Glucose (UA) (Negative) Urine Ketones (Negative) Urine Blood (Negative) Urine Nitrite (Negative) Urine Bilirubin (Negative) Urine Urobilinogen (Negative) Ur Leukocyte Esterase (Negative) Urine WBC (Auto) (0-5) /hpf Urine RBC (Auto) (0-4) /hpf U Hyaline Cast (Auto) (0-5) /lpf U Epithel Cells (Auto) (0-5) /lpf Urine Bacteria (Auto) (Negative) COVID-19 Eval Order SARS-CoV-2 (PCR) (Negative) 04/06/21 04/06/21 04/06/21 Range/Units 23:32 17:05 15:45 WBC (4.8-10.8) K/uL RBC (4.7-6.1) M/uL Hgb (14.0-18.0) g/dL Hct (42-52) % MCV (80-100) fL MCH (25-34) pg MCHC (32-36) g/dL RDW Std Deviation (36.4-46.3) fL RDW Coeff of Judy (11.5-14.5) % Plt Count (130-400) K/uL MPV (7.4-10.4) fL Immature Gran % (Auto) % Neut % (Auto) % Lymph % (Auto) % Saunders % (Auto) % Eos % (Auto) % Baso % (Auto) % Neut # (Auto) (1.4-6.5) K/uL Lymph # (Auto) (1.2-3.4) K/uL Saunders # (Auto) (0.11-0.59) K/uL Eos # (Auto) (0-0.5) K/uL Baso # (Auto) (0-0.2) K/uL Immature Gran # (Auto) (0.00-0.02) K/uL Sodium (136-145) mmol/L Potassium (3.5-5.1) mmol/L Chloride (98-107) mmol/L Carbon Dioxide (21-32) mmol/L Anion Gap (3-11) BUN (7-18) mg/dl Creatinine (0.6-1.4) mg/dl Est Cr Clr Drug Dosing Est GFR ( Amer) ml/min Est GFR (Non-Af Amer) ml/min BUN/Creatinine Ratio (10-20) Glucose (70-99) mg/dl POC Glucose 107 H (70-99) mg/dl Calcium (8.5-10.1) mg/dl Magnesium (1.8-2.4) mg/dl Total Bilirubin (0.2-1) mg/dl AST (15-37) U/L ALT (12-78) U/L Alkaline Phosphatase (45-117) U/L Troponin I (0-0.045) ng/ml Total Protein (6.4-8.2) gm/dl Albumin (3.4-5.0) gm/dl Globulin (2.5-4.0) gm/dl Albumin/Globulin Ratio (0.9-2) Lipase (73-393) U/L Procalcitonin (0-0.5) ng/ml TSH (0.300-4.500) uIu/ml Random Cortisol mcg/dl Urine Color Yellow Urine Appearance Cloudy A (Clear) Urine pH 8.0 H (4.5-7.5) Ur Specific [place] 1.016 (1.000-1.030) Urine Protein Negative (Negative) Urine Glucose (UA) Negative (Negative) Urine Ketones Negative (Negative) Urine Blood Negative (Negative) Urine Nitrite Negative (Negative) Urine Bilirubin Negative (Negative) Urine Urobilinogen Positive H (Negative) Ur Leukocyte Esterase Negative (Negative) Urine WBC (Auto) 1-5 (0-5) /hpf Urine RBC (Auto) 0-4 (0-4) /hpf U Hyaline Cast (Auto) 1-5 (0-5) /lpf U Epithel Cells (Auto) 5-10 H (0-5) /lpf Urine Bacteria (Auto) Negative (Negative) COVID-19 Eval Order SARS-CoV-2 (PCR) NEGATIVE (Negative) 04/06/21 04/06/21 04/06/21 Range/Units 15:45 15:15 15:15 WBC 5.72 (4.8-10.8) K/uL RBC 4.25 L (4.7-6.1) M/uL Hgb 14.3 (14.0-18.0) g/dL Hct 42.1 (42-52) % MCV 99.1 (80-100) fL MCH 33.6 (25-34) pg MCHC 34.0 (32-36) g/dL RDW Std Deviation 47.9 H (36.4-46.3) fL RDW Coeff of Judy 13.3 (11.5-14.5) % Plt Count 150 (130-400) K/uL MPV 11.5 H (7.4-10.4) fL Immature Gran % (Auto) 0.3 % Neut % (Auto) 71.4 % Lymph % (Auto) 12.8 % Saunders % (Auto) 12.4 % Eos % (Auto) 2.8 % Baso % (Auto) 0.3 % Neut # (Auto) 4.08 (1.4-6.5) K/uL Lymph # (Auto) 0.73 L (1.2-3.4) K/uL Saunders # (Auto) 0.71 H (0.11-0.59) K/uL Eos # (Auto) 0.16 (0-0.5) K/uL Baso # (Auto) 0.02 (0-0.2) K/uL Immature Gran # (Auto) 0.02 (0.00-0.02) K/uL Sodium (136-145) mmol/L Potassium (3.5-5.1) mmol/L Chloride (98-107) mmol/L Carbon Dioxide (21-32) mmol/L Anion Gap (3-11) BUN (7-18) mg/dl Creatinine (0.6-1.4) mg/dl Est Cr Clr Drug Dosing Est GFR ( Amer) ml/min Est GFR (Non-Af Amer) ml/min BUN/Creatinine Ratio (10-20) Glucose (70-99) mg/dl POC Glucose (70-99) mg/dl Calcium (8.5-10.1) mg/dl Magnesium (1.8-2.4) mg/dl Total Bilirubin (0.2-1) mg/dl AST (15-37) U/L ALT (12-78) U/L Alkaline Phosphatase (45-117) U/L Troponin I (0-0.045) ng/ml Total Protein (6.4-8.2) gm/dl Albumin (3.4-5.0) gm/dl Globulin (2.5-4.0) gm/dl Albumin/Globulin Ratio (0.9-2) Lipase (73-393) U/L Procalcitonin < 0.05 (0-0.5) ng/ml TSH (0.300-4.500) uIu/ml Random Cortisol mcg/dl Urine Color Urine Appearance (Clear) Urine pH (4.5-7.5) Ur Specific [place] (1.000-1.030) Urine Protein (Negative) Urine Glucose (UA) (Negative) Urine Ketones (Negative) Urine Blood (Negative) Urine Nitrite (Negative) Urine Bilirubin (Negative) Urine Urobilinogen (Negative) Ur Leukocyte Esterase (Negative) Urine WBC (Auto) (0-5) /hpf Urine RBC (Auto) (0-4) /hpf U Hyaline Cast (Auto) (0-5) /lpf U Epithel Cells (Auto) (0-5) /lpf Urine Bacteria (Auto) (Negative) COVID-19 Eval Order Covid19 at [facility] SARS-CoV-2 (PCR) (Negative) 04/06/21 04/06/21 Range/Units 15:15 15:15 WBC (4.8-10.8) K/uL RBC (4.7-6.1) M/uL Hgb (14.0-18.0) g/dL Hct (42-52) % MCV (80-100) fL MCH (25-34) pg MCHC (32-36) g/dL RDW Std Deviation (36.4-46.3) fL RDW Coeff of Judy (11.5-14.5) % Plt Count (130-400) K/uL MPV (7.4-10.4) fL Immature Gran % (Auto) % Neut % (Auto) % Lymph % (Auto) % Saunders % (Auto) % Eos % (Auto) % Baso % (Auto) % Neut # (Auto) (1.4-6.5) K/uL Lymph # (Auto) (1.2-3.4) K/uL Saunders # (Auto) (0.11-0.59) K/uL Eos # (Auto) (0-0.5) K/uL Baso # (Auto) (0-0.2) K/uL Immature Gran # (Auto) (0.00-0.02) K/uL Sodium 144 (136-145) mmol/L Potassium 4.0 (3.5-5.1) mmol/L Chloride 108 H (98-107) mmol/L Carbon Dioxide 27 (21-32) mmol/L Anion Gap 8.0 (3-11) BUN 22 H (7-18) mg/dl Creatinine 1.06 (0.6-1.4) mg/dl Est Cr Clr Drug Dosing Not Reportable Est GFR ( Amer) 80.3 ml/min Est GFR (Non-Af Amer) 69.3 ml/min BUN/Creatinine Ratio 20.3 H (10-20) Glucose 98 (70-99) mg/dl POC Glucose (70-99) mg/dl Calcium 8.7 (8.5-10.1) mg/dl Magnesium 2.7 H (1.8-2.4) mg/dl Total Bilirubin 0.6 (0.2-1) mg/dl AST 22 (15-37) U/L ALT 31 (12-78) U/L Alkaline Phosphatase 83 (45-117) U/L Troponin I < 0.015 (0-0.045) ng/ml Total Protein 7.1 (6.4-8.2) gm/dl Albumin 3.2 L (3.4-5.0) gm/dl Globulin 3.9 (2.5-4.0) gm/dl Albumin/Globulin Ratio 0.8 L (0.9-2) Lipase 137 (73-393) U/L Procalcitonin (0-0.5) ng/ml TSH 0.307 (0.300-4.500) uIu/ml Random Cortisol 21.17 mcg/dl Urine Color Urine Appearance (Clear) Urine pH (4.5-7.5) Ur Specific [place] (1.000-1.030) Urine Protein (Negative) Urine Glucose (UA) (Negative) Urine Ketones (Negative) Urine Blood (Negative) Urine Nitrite (Negative) Urine Bilirubin (Negative) Urine Urobilinogen (Negative) Ur Leukocyte Esterase (Negative) Urine WBC (Auto) (0-5) /hpf Urine RBC (Auto) (0-4) /hpf U Hyaline Cast (Auto) (0-5) /lpf U Epithel Cells (Auto) (0-5) /lpf Urine Bacteria (Auto) (Negative) COVID-19 Eval Order SARS-CoV-2 (PCR) (Negative) Diagnostic Findings Telemetry reviewed - NSR and sinus bradycardia in the 50's, occ PVC. No concerning arrhythmias Chest xray on admission - no acute process Medications Administered Current Inpatient Medications Albuterol (Albuterol Hfa 8 Gm Inhaler) 2 puffs INH QID PRN PRN Reason: Shortness Of Breath Stop: 05/06/21 20:35 Albuterol (Albuterol 0.083% Nebu Soln 3 Ml Vial) 2.5 mg INH Q6H PRN PRN Reason: bronchospasm Stop: 05/06/21 20:35 Brimonidine Tartrate (Brimonidine Tartrate 0.2% 5ml) 1 drops OPB BID GIRISH Stop: 05/06/21 21:44 Last Admin: 04/07/21 08:09 Dose: 1 drops Documented by: Citalopram Hydrobromide (Citalopram 20 Mg Tab) 20 mg PEG QAM GIRISH Stop: 05/07/21 08:59 Last Admin: 04/07/21 08:09 Dose: 20 mg Documented by: Enoxaparin Sodium (Enoxaparin Inj 40 Mg/0.4 Ml Syr) 40 mg SQ QAM GIRISH Stop: 05/07/21 08:59 Last Admin: 04/07/21 08:09 Dose: 40 mg Documented by: Enteral Nutritional Formula (Fibersource Hn 1.2 Palmer 1000 Ml Bag) 1,000 ml GT UD GIRISH; Protocol Stop: 05/07/21 09:29 Latanoprost (Latanoprost 0.005% Op Soln 2.5 Ml Btl) 1 drops OPB HS GIRISH Stop: 05/06/21 20:59 Last Admin: 04/06/21 22:09 Dose: 1 drops Documented by: Levothyroxine Sodium (Levothyroxine Sodium 88 Mcg Tablet) 88 mcg PEG DAILYBB GIRISH Stop: 05/07/21 06:29 Last Admin: 04/07/21 06:05 Dose: 88 mcg Documented by: Neomycin/Polymyxin/Bacitracin (Neomycin/Polymyx/Bacitr Oint 15 Gm Tube) 1 appln EXT BID GIRISH Stop: 05/07/21 10:44 Sterile Water (Tube Feeding Water Flush) 100 ml GT UD [facility] Stop: 05/07/21 09:30 Tramadol HCl (Tramadol Hcl 50 Mg Tablet) 50 mg NG Q6H PRN PRN Reason: Pain Stop: 05/06/21 20:35
--- NOTE | 2021-04-07 12:28 | Hospitalist Progress Note ---
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 On discharge on 03/10 the patient was sent home on Florinef 0.1 mg daily and Nitropatch 0.1 mg/h in the afternoon at 1300. A few days post D/C he had follow up with [facility] endocrinology to evaluate for possible adrenal insufficiency as cause of labile BP. At this appt florinef and nitropatch were stopped and amlodipine 10 mg. reports a persistent fluctuation in blood pressure since that time with concerning hypo and hypertension. Pt has been off amlodipine, florinef and nitro patch Patient admitted to med tele Bp still labile but pt mostly asymptomatic -ranging from 73/39 to 103/63 Cardiology consultation requested Recommendations include stopping all antihypertensive medications, patient may benefit from higher blood pressure as he does occasionally get symptomatic with lower blood pressure consider prn florinef however appears pt has difficulty with this will continue to monitor inpatient discussed with who is frustrated regarding his blood pressures - he does have f/u with endo on 04/09 - encouraged to keep this appt to r/o other possible causes of labile bp he appears euvolemic no s/sx of infection - ruling out peg tube infection Redness and Drainage of peg tube site obtain culture - pending place neosporin bid afebrile, wbc wnl (2) Glaucoma: Plan: Continue home eyedrops. 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 (4) DVT prophylaxis: Plan: Lovenox Full code Disposition-med tele- continued hospitalization to monitor for hypotension given SBP in 70s this morning and rule out infection. Likely home tomorrow Please contact via [facility] text with questions or concerns to Palak Manriquez). Jimena Pimentel, Admission and Anticipated Discharge Date Admission Date: April 06, 2021 Subjective Patient was seen and examined in room 262-1. Follow up labile blood pressure. He is questioning when he is going home. He denies lightheaded, dizziness, chest pain, sob, palpitations, n/v/d, abdominal pain. He is requesting his tube feeds. Review of Systems Review of Systems: All systems reviewed & are unremarkable except as noted in HPI & below Physical Exam Physical Exam: Gen: Thin, fraile, M, sitting up at bedside, NAD, A&O x3 HEENT: Normocephalic, atraumatic, conjunctivae moist, sclerae anicteric, mucous membranes moist. Lung: Clear to Auscultation bilaterally, no wheezes/rales/rhonchi Heart: Regular rate, regular rhythm, no murmurs, rubs, or gallops Abdomen: Soft, NT, ND +BS x 4, + peg tube with erythema, slight drainage Extremities: No edema Skin: Warm, no rash, negative turgor. Results & Data Results & Data ([facility]) Vital Signs (Past 12 Hours) Vital Signs Temp Pulse Resp BP BP Pulse Ox 04/07/21 11:11 76/44 L 04/07/21 11:08 36.5 C 55 L 16 79/64 L 73/39 L 96 04/07/21 07:39 36.6 C 66 18 156/97 H 96 04/07/21 03:52 36.5 C 60 18 180/94 H 95 Laboratory Results Short CBC 04/06/21 Range/Units 15:15 WBC 5.72 (4.8-10.8) K/uL Hgb 14.3 (14.0-18.0) g/dL Hct 42.1 (42-52) % Plt Count 150 (130-400) K/uL BMP 04/06/21 15:15 Sodium 144 Potassium 4.0 Chloride 108 H Carbon Dioxide 27 BUN 22 H Creatinine 1.06 Glucose 98 Calcium 8.7 Cardiac Enzymes 04/06/21 Range/Units 15:15 Troponin I < 0.015 (0-0.045) ng/ml Liver Function 04/06/21 Range/Units 15:15 Total Bilirubin 0.6 (0.2-1) mg/dl AST 22 (15-37) U/L ALT 31 (12-78) U/L Alkaline Phosphatase 83 (45-117) U/L Albumin 3.2 L (3.4-5.0) gm/dl Urine 04/06/21 Range/Units 17:05 Urine Color Yellow Urine Appearance Cloudy A (Clear) Urine pH 8.0 H (4.5-7.5) Ur Specific [place] 1.016 (1.000-1.030) Urine Protein Negative (Negative) Urine Glucose (UA) Negative (Negative) Diagnostic Findings Chest X-Ray 04/06/21 15:24 XR chest 1V portable CLINICAL HISTORY: weakness COMPARISON STUDY: March 05 FINDINGS: No pneumothorax. No pleural effusion. Redemonstration of opacity is at the left base which is unchanged since prior study in March 06, 2021 might represent atelectasis or scarring. Cardiomediastinal silhouette is within normal limits in size. No significant pulmonary vascular congestion.. Aorta is tortuous and calcified. Osseous structures: Mild degenerative changes of the spine IMPRESSION: Atelectasis or scarring at the left base, unchanged since prior. Atherosclerosis. The rest of findings as above. ACT 112: Negative or not required by law. The above report was generated using voice recognition software. It may contain grammatical, syntax or spelling errors. Electronically signed by: Lucy Jaime DO 04/06/2021 4:10 PM Medications Administered Current Inpatient Medications Albuterol (Albuterol Hfa 8 Gm Inhaler) 2 puffs INH QID PRN PRN Reason: Shortness Of Breath Stop: 05/06/21 20:35 Albuterol (Albuterol 0.083% Nebu Soln 3 Ml Vial) 2.5 mg INH Q6H PRN PRN Reason: bronchospasm Stop: 05/06/21 20:35 Brimonidine Tartrate (Brimonidine Tartrate 0.2% 5ml) 1 drops OPB BID [facility] Stop: 05/06/21 21:44 Last Admin: 04/07/21 08:09 Dose: 1 drops Documented by: Citalopram Hydrobromide (Citalopram 20 Mg Tab) 20 mg PEG QAM GIRISH Stop: 05/07/21 08:59 Last Admin: 04/07/21 08:09 Dose: 20 mg Documented by: Enoxaparin Sodium (Enoxaparin Inj 40 Mg/0.4 Ml Syr) 40 mg SQ QAM GIRISH Stop: 05/07/21 08:59 Last Admin: 04/07/21 08:09 Dose: 40 mg Documented by: Enteral Nutritional Formula (Fibersource Hn 1.2 Palmer 1000 Ml Bag) 1,000 ml GT [facility]; Protocol Stop: 05/07/21 09:29 Latanoprost (Latanoprost 0.005% Op Soln 2.5 Ml Btl) 1 drops OPB HS GIRISH Stop: 05/06/21 20:59 Last Admin: 04/06/21 22:09 Dose: 1 drops Documented by: Levothyroxine Sodium (Levothyroxine Sodium 88 Mcg Tablet) 88 mcg PEG DAILYBB [facility] Stop: 05/07/21 06:29 Last Admin: 04/07/21 06:05 Dose: 88 mcg Documented by: Neomycin/Polymyxin/Bacitracin (Neomycin/Polymyx/Bacitr Oint 15 Gm Tube) 1 appln EXT BID [facility] Stop: 05/07/21 10:44 Last Admin: 04/07/21 12:54 Dose: 1 appln Documented by: Sterile Water (Tube Feeding Water Flush) 100 ml GT [facility] Stop: 05/07/21 09:30 Tramadol HCl (Tramadol Hcl 50 Mg Tablet) 50 mg NG Q6H PRN PRN Reason: Pain Stop: 05/06/21 20:35
[2021-04-07] MEDS: NEOMYCIN/POLYMYX/BACITR OINT 15 GM TUBE EXT SCH ×2 (12:54→20:22)
[2021-04-07] MEDS: LATANOPROST 0.005% OP SOLN 2.5 ML BTL OPB SCH (20:21)
[2021-04-08] MEDS: LEVOTHYROXINE SODIUM 88 MCG TABLET PEG SCH (06:09)
[2021-04-08 07:20] LABS: Basophils # (auto) 0.02 K/uL (0-0.2); Basophils % (auto) 0.4 %; Eosinophils # (auto) 0.19 K/uL (0-0.5); Eosinophils % (auto) 3.8 %; Hematocrit (blood only) 41.9 % (42-52); Hemoglobin 14.1 g/dL (14.0-18.0); Immature Granulocytes # (auto) 0.02 K/uL (0.00-0.02); Immature Granulocytes % (auto) 0.4 %; Mean Corpuscular Hemoglobin 33.9 pg (25-34); Mean Corpuscular Hgb Conc 33.7 g/dL (32-36); Mean Corpuscular Volume 100.7 fL (80-100); Mean Platelet Volume 11.9 fL (7.4-10.4); Monocytes # (auto) 0.64 K/uL (0.11-0.59); Monocytes % (auto) 12.8 %; Neutrophils # (auto) 2.94 K/uL (1.4-6.5); Neutrophils % (auto) 58.6 %; Platelet Count 154 K/uL (130-400); RDW Coefficient of Variation 13.1 % (11.5-14.5); RDW Standard Deviation 47.9 fL (36.4-46.3); Red Blood Count 4.16 M/uL (4.7-6.1); White Blood Count 5.01 K/uL (4.8-10.8)
[2021-04-08 07:53] LABS: BUN Creatinine Ratio 23.8 (10-20); Creatinine Clr Calc Pharmacy 79.6 ml/min; Est GFR (African American) 98.8 ml/min; Est GFR (Non-African American) 85.2 ml/min; Potassium 3.6 mmol/L (3.5-5.1)
[2021-04-08] MEDS: ENOXAPARIN INJ 40 MG/0.4 ML SYR SQ SCH (09:22)
[2021-04-08] MEDS: CITALOPRAM 20 MG TAB PEG SCH (09:22)
[2021-04-08] MEDS: BRIMONIDINE TARTRATE 0.2% 5ML OPB SCH (09:22)
[2021-04-08] MEDS: NEOMYCIN/POLYMYX/BACITR OINT 15 GM TUBE EXT SCH (09:23)
[2021-04-08] MEDS: FIBERSOURCE HN 1.2 CAL 1000 ML BAG GT SCH ×2 (09:25→12:48)
--- NOTE | 2021-04-08 10:21 | Cardiology Progress Note ---
Date of Service April 08, 2021 Assessment & Plan (1) Labile blood pressure: (2) Acute hypotension: Plan: Patient with long history of labile BP readings. Intermittent hypotension with dizziness and intermittent high BP readings noted at home. He previously trialed JOHNATHON/ARB with hypotension. Amlodipine had been also trialed with significant hypotension. He was previously started on Florinef and nitro patch with improvement, but this was stopped by outside providers and he was transitioned to high dose amlodipine at 10 mg, resulting in hypotension as well. Apparently patient's was confused at home regarding prior holding parameters. Long discussion with the patient today and hospitalist providers It is better to avoid daily antihypertensives in this patient and allow his BP to run higher given significant hypotensive episodes. He does have labile blood pressure due to his previous surgery related to the carotid bulb. Antihypertensive medications cause him to become quickly hypotensive. Per hospitalist team, the is not comfortable with not having any treatment for high/low symptomatic readings. We discussed resuming prior florinef and nitropatch as previously prescribed (and already have these prescriptions at home), but he will not on a regular/daily basis. I also advised to stop checking BP when he is asymptomatic. If he is having symptoms and BP is low, <80 systolic, may give dose of florinef. if he is having symptoms and BP is high > 180, would place nitro patch. This was discussed in detail with the patient and he is agreeable to this plan Hospitalist team will assist in educating as well. Case discussed with Dr. Arredondo Admission and Anticipated Discharge Date Admission Date: April 07, 2021 Supervising Physician Co-Signing Physician Notes I discussed the case with Ms. Murillo. I reviewed the medical record and examined the patient. I agree with the plan as outlined. 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 I feel it is better that the patient remain a little on the hypertensive side while lying flat so that when he stands he does not become significantly hypotensive and symptomatic. There is really no good treatment for this other than allowing his blood pressure to rise a little bit high. If you try to treat his hypertension it will result in symptomatic drop in his blood pressure. The patient's has been instructed and hopefully he will not be symptomatic at home. Subjective Patient resting in bed. Reports feeling good. Denies complaints of headache or vision changes. No dizziness. No chest pain or SOB. Wants to go home. Review of Systems Review of Systems: All systems reviewed & are unremarkable except as noted in HPI & below Physical Exam Constitutional: WD/WN, vitals as above ENMT: Mouth: + oropharynx abnormality (chronic left facial droop) and + edentulous Neck: + abnormal visual inspection Respiratory: normal respiratory effort, lungs clear to auscultation Cardiovascular: RRR, no murmur, no edema Gastrointestinal (Abdomen): normal bowel sounds, soft, nontender, no hepatosplenomegaly Musculoskeletal: no cyanosis or clubbing, extremities motor strength 5/5 Skin: no rashes, warm and dry Psychiatric: A+Ox3, euthymic affect Results & Data ([facility]) Vital Signs (Past 12 Hours) Vital Signs Temp Pulse Pulse Resp BP BP Pulse Ox 04/08/21 08:26 173/102 H 04/08/21 07:47 36.5 C 70 20 97 04/08/21 07:44 208/115 H 04/08/21 06:49 65 04/08/21 02:14 150/84 H 04/08/21 02:12 36.9 C 72 18 178/102 H 93 04/08/21 00:54 61 04/07/21 23:27 36.8 C 61 18 111/55 L 99 Laboratory Results 04/08/21 04/08/21 04/07/21 Range/Units 06:39 06:39 11:51 WBC 5.01 (4.8-10.8) K/uL RBC 4.16 L (4.7-6.1) M/uL Hgb 14.1 (14.0-18.0) g/dL Hct 41.9 L (42-52) % MCV 100.7 H (80-100) fL MCH 33.9 (25-34) pg MCHC 33.7 (32-36) g/dL RDW Std Deviation 47.9 H (36.4-46.3) fL RDW Coeff of Judy 13.1 (11.5-14.5) % Plt Count 154 (130-400) K/uL MPV 11.9 H (7.4-10.4) fL Immature Gran % (Auto) 0.4 % Neut % (Auto) 58.6 % Lymph % (Auto) 24.0 % [place] % (Auto) 12.8 % Eos % (Auto) 3.8 % Baso % (Auto) 0.4 % Neut # (Auto) 2.94 (1.4-6.5) K/uL Lymph # (Auto) 1.20 (1.2-3.4) K/uL [place] # (Auto) 0.64 H (0.11-0.59) K/uL Eos # (Auto) 0.19 (0-0.5) K/uL Baso # (Auto) 0.02 (0-0.2) K/uL Immature Gran # (Auto) 0.02 (0.00-0.02) K/uL Sodium 143 (136-145) mmol/L Potassium 3.6 (3.5-5.1) mmol/L Chloride 107 (98-107) mmol/L Carbon Dioxide 31 (21-32) mmol/L Anion Gap 5.0 (3-11) BUN 21 H (7-18) mg/dl Creatinine 0.88 (0.6-1.4) mg/dl Est Cr Clr Drug Dosing 79.6 ml/min Est GFR ( Amer) 98.8 ml/min Est GFR (Non-Af Amer) 85.2 ml/min BUN/Creatinine Ratio 23.8 H (10-20) Glucose 89 (70-99) mg/dl POC Glucose 156 H (70-99) mg/dl Calcium 9.0 (8.5-10.1) mg/dl Diagnostic Findings Telemetry reviewed - Sinus in the 60s, no concerning arrhythmias
--- NOTE | 2021-04-08 11:30 | Discharge Summary ---
Date of Service April 08, 2021 Admission HPI Per Admitting Provider Mr. Canseco is a 75-year-old man with a history of tonsil cancer who underwent surgery and radiation therapy with subsequent difficulty speaking and a PEG tube. Since the surgery he has had difficulty with blood pressure control. He was recently admitted at [facility] from 03/06-03/10 for labile blood pressure. New medications during that visit included reintroduction of fludrocortisone 0.1 mg tablet in the morning followed by a nitroglycerin 0.1 mg/h patch taking in the afternoon at 1:00. Lisinopril was discontinued. Since discharge [place] [facility] [place] he was instructed to stop nitroglycerin patch and Florinef and start amlodipine 10 mg daily. He has a history of hypothyroidism and was continued on his same levothyroxine 88 mcg daily for now. His started noticing hypotension that was significant with blood pressures reported 60-80 systolic at times. There seem to be a trend of hypotension in the afternoon to evening. For the last 4 days she has kept him off the amlod ipine and off the Florinef and nitroglycerin. His blood pressure has gone from 60/30 with associated nausea and ranged up to 185 systolic. Of note, when his blood pressure was 60/30 this was last night. To help correct that she fed him to a made of juice "because it had salt in it" and repeated the blood pressure every hour getting the blood pressure only up to 80 systolic. This was the driving factor in her bringing him in today. The patient denies any chest pain, lightheadedness, fevers, chills or other infectious symptoms, GI upset or abdominal pain, strokelike symptoms. He does have chronic left facial droop. He does report a mild posterior headache. Denies any visual changes. He has speech issues at baseline with no known changes. He is nourished through a PEG tube using boost and free water. There have been no changes to his regimen here. In summary, his is very concerned about the fluctuations in his blood pressure, and she reported his main concern is that he will have a stroke. She feels his blood pressure has been more labile since his Covid vaccination in September. Admission Exam Per Admitting Provider CONSTITUTIONAL: WNWD, vitals as above, generally well-appearing EYES: PERRL, normal conjunctivae, no scleral icterus ENT: external ear and nose normal, MMM NECK: trachea midline RESPIRATORY: clear to auscultation bilaterally, no crackles, rales or wheezes, normal respiratory effort CARDIOVASCULAR: regular rate and rhythm, S1 and 2 heard without murmurs, gallops or rubs, no JVD, no peripheral edema, no carotid bruits CHEST: inspection of chest was normal GASTROINTESTINAL: soft, nontender, ND, no guarding MUSCULOSKELETAL: strength 5/5 throughout, head is normocephalic and atraumatic SKIN: warm and dry NEUROLOGIC: CN 2-12 grossly intact, some left sided facial droop when he smiles-at baseline, no sensory deficit, normal cognition, abnormal raspy speech- at baseline, no tremor PSYCHIATRIC: alert cooperative and oriented to person, place and time. Euthymic mood, makes good eye contact, language grossly intact, recent and remote memory grossly intact. Principal Diagnosis Labile blood pressure Baroreceptor dysregulation causing autonomic dysfunction Orthostatic hypotension Erythema and drainage around PEG tube Discharge Data Allergies Allergy/AdvReac Type Severity Reaction Status Date / Time Nitrate Analogues Allergy Severe DROP IN BP Verified 04/06/21 16:18 sulfamethoxazole Allergy Intermediate ITCHING Verified 04/06/21 16:18 trimethoprim Allergy Intermediate ITCHING Verified 04/06/21 16:18 levofloxacin Allergy Mild rash all Verified 04/06/21 16:18 over body sertraline Allergy Mild NOSE BLEEDS Verified 04/06/21 16:18 terazosin Allergy Unknown DOES NOT Verified 04/06/21 16:18 KNOW Consultations Cardiology consult Assessment & Plan (1) Labile blood pressure: (2) Acute hypotension: Plan: Patient with long history of labile BP readings. Intermittent hypotension with dizziness and intermittent high BP readings noted at home. He previously trialed JOHNATHON/ARB with hypotension. Amlodipine had been also trialed with significant hypotension. He was previously started on Florinef and nitro patch with improvement, but this was stopped by outside providers and he was transitioned to high dose amlodipine at 10 mg, resulting in hypotension as well. Apparently patient's was confused at home regarding prior holding parameters. Long discussion with the patient today and hospitalist providers It is better to avoid daily antihypertensives in this patient and allow his BP to run higher given significant hypotensive episodes. He does have labile blood pressure due to his previous surgery related to the carotid bulb. Antihyperte nsive medications cause him to become quickly hypotensive. Per hospitalist team, the is not comfortable with not having any treatment for high/low symptomatic readings. We discussed resuming prior florinef and nitropatch as previously prescribed (and already have these prescriptions at home), but he will not on a regular/daily basis. I also advised to stop checking BP when he is asymptomatic. If he is having symptoms and BP is low, <80 systolic, may give dose of florinef. if he is having symptoms and BP is high > 180, would place nitro patch. This was discussed in detail with the patient and he is agreeable to this plan Hospitalist team will assist in educating as well. Case discussed with Dr. Arredondo Ordered Studies Short CBC 04/08/21 Range/Units 06:39 WBC 5.01 (4.8-10.8) K/uL Hgb 14.1 (14.0-18.0) g/dL Hct 41.9 L (42-52) % Plt Count 154 (130-400) K/uL BMP 04/08/21 06:39 Sodium 143 Potassium 3.6 Chloride 107 Carbon Dioxide 31 BUN 21 H Creatinine 0.88 Glucose 89 Calcium 9.0 Chest X-Ray 04/06/21 15:24 XR chest 1V portable CLINICAL HISTORY: weakness COMPARISON STUDY: March 05 FINDINGS: No pneumothorax. No pleural effusion. Redemonstration of opacity is at the left base which is unchanged since prior study in March 06, 2021 might represent atelectasis or scarring. Cardiomediastinal silhouette is within normal limits in size. No significant pulmonary vascular congestion.. Aorta is tortuous and calcified. Osseous structures: Mild degenerative changes of the spine IMPRESSION: Atelectasis or scarring at the left base, unchanged since prior. Atherosclerosis. The rest of findings as above. ACT 112: Negative or not required by law. The above report was generated using voice recognition software. It may contain grammatical, syntax or spelling errors. 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 Pt recently hospitalized 03/06-03/10/ to hypotension and dizziness. On discharge on 03/10 the patient was sent home on Florinef 0.1 mg daily and Nitropatch 0.1 mg/h in the afternoon at 1300. A few days post D/C he had [place] [facility] [place] evaluate for possible adrenal insufficiency as cause of labile BP. At this appt florinef and nitropatch were stopped and amlodipine 10 mg was started on 03/14. reported a persistent fluctuation in blood pressure since that time with concerning hypo and hypertension. She stopped his amlodipine 5 days prior to admission; therefore pt has been off amlodipine, florinef and nitro patch. His blood pressure continued to fluctuate during hospital stay. He did have positive orthostatic blood pressures with consistent heart rates. He was asymptomatic during his hospital stay his varying blood pressures. He was seen and evaluated by cardiology who recommends not placing patient on oral antihypertensives secondary to patient's drastic hypotensive response which resulted in lightheadedness and dizziness. It is also recommended that patient's does not check blood pressure on a regular basis unless he is actively symptomatic including lightheadedness, dizziness, chest pain, headache or visual changes. It is felt his labile blood pressure is likely as a result of baroreceptor dysfunction. He and were instructed at discharge to discontinue all antihypertensive medications and use florinef as needed for symptomatic SBP < 80 or nitropatch for symptomatic hypertension with SBP > 180. They are encouraged to only monitor BP when symptomatic. They agreed and confirmed understanding. During hospital stay he did have erythema surrounding peg due and mild purulent drainage that was cultured. Culture grew gram negative and positive bacilli. Neosporin was placed around tube twice daily. It was discussed with GI regarding his PEG. Last exchange of PEG was in January 2019 due to broken PEG. He was placed on keflex 500mg bid via peg and encouraged to continue neosporin to site twice a day. He was discharged in stable condition and able to ambulate around the unit and tolerating his normal feedings. (2) Tonsil carcinoma: Total Time Total Time Spent Total Time Spent (In Minutes): 75 minutes spent examining patient, discussing with specialists and family and preparing appropriate discharge documentation. Discharge Plan Discharge Items Patient Disposition: Home - Self-Care Reason For Visit: LABILE BLOOD PRESSURE Discharge Diagnosis: Labile Blood Pressure Baroreceptor Dysfuction Activity: Resume your previous activity Non-emergency contact: Primary Care Provider Call non-emergency contact if: you have any medication questions, your symptoms worsen and you have a fever Follow-up/Referrals: Sanjiv Hart MD [Primary Care Provider] - 04/10/21 2:00 pm (Date & Time 04/10/2021 2:00 PM Provider Sanjiv Hart III, MD [facility] ) Diet: Nothing by Mouth Diet Comment: Continue boost feedings as prescribed Addtl Attending Provider Instructions: MEDICATION CHANGES: Recommend you re start Florinef and Nitro patch on an NEEDED basis. Florinef is for when you are symptomatic and your blood pressure is LOW - or less than 80 systolic (top number) Nitro patch is for when you are symptomatic and your blood pressure is HIGH - Or greater than 180 systolic (top number) Concerning symptoms include lightheaded, dizziness, visual changes, headache or chest pain. We recommend not checking your blood pressure unless you are feeling symptoms above. We recommend not taking blood pressure medications on a regular basis. Your Amlodipine has been STOPPED. Recommend wearing compression stockings when out of bed. Start Keflex (antibiotic) 500mg via peg tube twice daily for 7 days due to redness and drainage around peg site. SUMMARY OF TEST HOSPITALIZATION You were admitted to [facility] due to blood pressure being low and feeling dizzy. During hospital stay your blood pressure fluctuated from being high to low. Your blood pressure was felt to drop when you would go from sitting to standing. Cardiology was involved during your hospital stay. It is felt that your blood pressure fluctuates due to previous neck surgery and radiation in region of your carotid artery. You peg tube had surrounding redness and drainage. A culture was obtained during hospital stay and is pending at discharge. Recommend starting antibiotic keflex 500mg to be administered via PEG tube twice daily. Make sure to flush peg tube after administration. PENDING TEST RESULTS: Culture from drainage around peg tube - will call patient when final results return RECOMMENDATIONS FOR FOLLOW-UP: Please keep scheduled follow up appointments [place] [facility] [place] You are scheduled a follow up with your PCP, Dr. Hart, on 04/10/21 @ 2:00 pm. Please arrive 15 minutes early for your appointment. Recommend applying neosporin to your peg tube site daily and change dressing daily. Please have your PCP evaluate your peg site during your follow up appointment. OTHER INSTRUCTIONS: Seek medical attention if you have: * temperature above 101 * chest pain or trouble breathing * abdominal pain, nausea, vomiting * diarrhea, dark stools or bloody stools * any unanswered questions or concerns Call 911 if symptoms are severe. Please take good care of yourself. It has been a pleasure taking care of you. Please take care of yourself. If you have any questions regarding your recent hospitalization please contact [facility] and request [facility] @ [phone]. Palak Gunn PA-C Pending Studies at Discharge: No Stand-Alone Forms: My [facility], Smoking Cessation Medications and DC Order Prescriptions: New fludrocortisone 0.1 mg tablet 0.1 mg feeding tube DAILY PRN (Reason: hypotension) Qty: 30 RF: 0 nitroglycerin 0.1 mg/hr patch 24 hour 1 patch transdermal DAILY PRN (Reason: hypertension) Qty: 1 RF: 0 Continued latanoprost 0.005 % Drops 1 drp OPB HS RF: 0 citalopram 20 mg tablet 20 mg Feeding Tube QAM RF: 0 Nutritional Drink Liquid 2 can Feeding Tube QID RF: 0 brimonidine 0.2 % drops 1 drp OPB BID RF: 0 albuterol sulfate 90 mcg/actuation HFA aerosol inhaler 2 puff INHALATION QID PRN (Reason: Shortness Of Breath) RF: 0 acetaminophen [Tylenol Extra Strength] 500 mg Tablet 1,000 mg PO Q6H PRN (Reason: Pain) RF: 0 levothyroxine [Euthyrox] 88 mcg tablet 88 mcg feeding tube DAILY RF: 0 albuterol sulfate 2.5 mg /3 mL (0.083 %) solution for nebulization 2.5 mg inhalation Q6H PRN (Reason: bronchospasm) Qty: 75 RF: 0 tramadol 50 mg tablet 50 mg feeding tube Q6H PRN (Reason: Pain) RF: 0 Discontinued amlodipine 10 mg tablet 10 mg PO DAILY RF: 0 Discharge Orders: Discharge Order (Routine); Ordered 04/08/21 Ordered By: Palak Nova Admission Data Admit Date/Time: 04/07/21 13:56 Attending Provider: Jimena Pimentel Admit Provider: Jimena Pimentel Primary Care Provider: Sanjiv Hart Other Providers: Naeem Arredondo Other Interventions: Discharge Summary Assessment (RN) Last Done: 04/08/21 13:41 Supervising Physician Co-Signing Physician Notes I have have discussed the case with the provider above. I agree with the assessment and plan as stated. Margarito,
--- NOTE | 2021-04-09 16:16 | 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 Note ---
Date of Service: April 09, 2021 Wound culture from surrounding peg tube and drainage was reviewed and discussed with attending Dr. Pimentel. Culture + for Group G strep and Serratia Marcescens thompson sensitive. Mostly to tier III cephalosporins. He was discharged to home on oral keflex and has allergy to quinolones and bactrim. He has PCP follow up tomorrow and send staff message via [address] to discuss culture results with PCP. If no improvement he may benefit from escalating to ceftin or omnicef.
== END 2021-04-08 13:59 | disposition home or self-care (01) | DRG 316 ==
LOC: ED 14:45 → 2W 14:45

== ENCOUNTER 2021-06-02 12:00 | Inpatient (IN) ==
--- NOTE | 2021-06-02 12:24 | Emergency Department Note ---
Impression & Plan Acute respiratory failure with hypoxia and hypercarbia, Bilateral pneumonia, Acute exacerbation of chronic obstructive pulmonary disease ED Provider Note NAME: DEMETRIO WELSH AGE: 75 SEX: M : 1945 ARRIVES VIA: Ambulance INFORMANT: Patient, ED PROVIDER(S): Tyrese Smith MD Chief Complaint: Shortness of breath HPI: Patient does present to concern for shortness of breath which began around 3 AM this morning. at bedside was concerned the patient may have aspirated. EMS had picked up the patient EMS had placed 5 L nasal cannula the patient was 85% and continued to be 87 to 88% in route. Patient did have a recent EGD for a PEG tube exchange. 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 Patient is a full code. The patient does complain of some mild sore throats and shortness of breath. She does have occasional sore throat and has had cough. Patient is a former smoker. Patient does not wear oxygen at home. The patient is vaccinated for COVID-19 and did receive a flu shot. ROS: See HPI for pertinent positives and negatives. A total of 10 systems were reviewed and otherwise negative. Past medical history: See below Surgical history: See below Social history: See below Physical Exam: GENERAL: Ill in appearance, arouses to voice. Nasal cannula in place. EYE EXAM: Normal conjunctiva. PERRL, no anisocoria and EOM's grossly intact w/o pain. OROPHARYNX: Dry mucus membranes. Edentulous. NECK: Supple, no nuchal rigidity, no adenopathy, non-tender. No signs of meningismus. LUNGS: Coarse sounds throughout. Normal chest wall mechanics. HEART: NSR, no MRG. ABDOMEN: Abdomen soft, G-tube in place, normo-active bowel sounds, no masses, no rebound or guarding. BACK: No CVA TTP. SKIN: No rashes and no bruising. UPPER EXTREMITIES: Upper extremities are grossly normal. LOWER EXTREMITIES: Grossly normal, no edema. NEURO EXAM: A&O x3, cranial nerves II-XII grossly intact, normal speech, moves all 4 extremities on command w/o issue. Differential diagnoses: Reactive airway disease, pneumonia, pneumothorax, COPD, CHF, infections, cardiac ischemia, pulmonary embolism, musculoskeletal, gastrointestinal, as well as other pathologies. Course: Patient was seen and evaluated the bedside. Full history physical exam was performed. EKG interpreted by me Normal sinus rhythm, rate in 91, normal intervals, left axis deviation, no obvious ST changes. Imaging Studies: See Below Cardiac monitoring: An order was placed for continuous cardiac monitoring. The monitor shows a rate of 95 with sinus rhythm. MDM: Patient was seen due to concern for shortness of breath. The patient did appear to be in moderate to severe distress as the patient would awaken to voice but the patient was hypoxic even on nasal cannula. I did place the patient on a nonrebreather and did request BiPAP be placed on the patient along with duo nebs empiric antibiotics and further treatments. Patient is white count of 16 with a normal H&H and platelet count. The patient's kidney function is unremarkable. The patient's initial lactate was 2 and did receive 2 L of IV fluids. Patient's potassium is 3.4. Initial VBG showed pH of 7.3 with a PCO2 of 54. Patient's troponin is not detectable. Patient's procalcitonin was borderline elevated. Chest x-ray does show likely pneumonia. I did reevaluate the patient several times and the patient did have improvement in mental status and the patient did look improved. When asked the patient did state that he felt better. I did speak with the on-call hospitalist LIT Yeager and the patient was to be admitted by Dr. Rico. Critical Care: I have personally spent 97 minutes of critical care time in direct management of this patient. This includes bedside care, interpretation of diagnostic studies, and testing, discussion with consultants, patient, and family members, and other require inpatient management activities. This 97 minutes is in excess of all separately billable procedures. Past Med/Surg History Medical History Anxiety Aspiration pneumonia hx - CAN NOT TAKE FOOD/LIQUIDS ORALLY Asthma rare use of PRN inh Benign prostatic hyperplasia (Unknown) Blood pressure instability new issue for pt -- S Cardiology manages; currently using midodrine and nitro PRN hypo/hypertension; per , cardiac workup wnl aside from BP changes Chronic back pain COPD (chronic obstructive pulmonary disease) with emphysema Degenerative disc disease Depression Gastroparesis GERD (gastroesophageal reflux disease) Glaucoma Hypertension Hypothyroidism Osteoarthritis Tonsil carcinoma (Unknown) RADIATION AND CHEMO Uses feeding tube Surgical History H/O esophagogastroduodenoscopy (Unknown) WITH PLACEMENT PEG TUBE History of anesthesia reaction SLOW TO WAKE UP History of neck surgery LUMPECTOMY History of tooth extraction S/P arthroscopic knee surgery (Unknown) RT S/P colonoscopy (Unknown) Family History Brother Family history of diabetes mellitus Social History Smoking Status: Former smoker Tobacco Type: Cigarettes Second Hand Exposure: No; Hx Alcohol Use: Yes Alcohol type: beer Hx Substance Use: No Preferred Language: Croatian 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 Ability: Impaired Information Writer Required: No Beliefs That Will Affect Care: None marital status: Current Living Situation: Spouse Feels Safe at Home: Yes Assistive Devices: None Allergies Allergies Allergy/AdvReac Type Severity Reaction Status Date / Time sulfamethoxazole Allergy Intermediate ITCHING Verified 06/02/21 14:14 trimethoprim Allergy Intermediate ITCHING Verified 06/02/21 14:14 levofloxacin Allergy Mild rash all Verified 06/02/21 14:14 over body sertraline Allergy Mild NOSE BLEEDS Verified 06/02/21 14:14 terazosin Allergy Unknown DOES NOT Verified 06/02/21 14:14 KNOW Nitrate Analogues AdvReac Severe DROP IN BP Verified 06/02/21 14:14 Home Meds Home Medications Medication Instructions Recorded Confirmed citalopram 20 mg tablet 20 mg FEEDING TUBE QAM 05/07/18 06/02/21 food supplemt, lactose-reduced 2 can FEEDING TUBE QID 05/07/18 06/02/21 (Nutritional Drink) latanoprost 0.005 % eye drops 1 drp OPB HS 01/30/19 06/02/21 albuterol sulfate 90 mcg/actuation 2 puff INHALATION QID PRN 11/08/20 06/02/21 aerosol inhaler brimonidine 0.2 % eye drops 1 drp OPB BID 11/08/20 06/02/21 tramadol 50 mg tablet 50 mg FEEDING TUBE Q6H PRN 03/04/21 06/02/21 acetaminophen 500 mg tablet 1,000 mg PO Q6H PRN 03/06/21 06/02/21 (Tylenol Extra Strength) levothyroxine 88 mcg tablet 88 mcg FEEDING TUBE DAILY 04/06/21 06/02/21 (Euthyrox) midodrine 5 mg tablet 5 mg FEEDING TUBE BID PRN 05/13/21 06/02/21 nitroglycerin 0.4 mg sublingual 0.4 mg SUBLINGUAL UD PRN 05/13/21 06/02/21 tablet aspirin 81 mg capsule 81 mg PO DAILY 06/02/21 06/02/21 atorvastatin 40 mg tablet 40 mg PO DAILY 06/02/21 06/02/21 Previous Rx's Medication Instructions Recorded albuterol sulfate 2.5 mg INHALATION Q6H PRN #75 ml 11/01/20 Results & Data (ED) Vital Signs Vital Signs - 24 hr 06/02/21 11:51 06/02/21 12:40 06/02/21 12:43 Temperature 36.8 C Temperature Source Oral Pulse Rate 92 H 90 Pulse Rate [Right Finger] Pulse Rate from SpO2 Sensor 90 Pulse Rhythm Regular Pulse Strength Normal Respiratory Rate 24 24 30 H Respiratory Effort / Characteristics Mechanically Ventilated Mechanically Ventilated Respiratory Depth Normal Respiratory Pattern Regular Blood Pressure 123/74 Blood Pressure Mean 90 Blood Pressure Position Semi-fowlers Pulse Oximetry 95 98 96 Oxygen Delivery Method BiPAP BiPAP Oxygen Flow Rate Fraction of Inspired Oxygen Sepsis Recent Fever Within 48 Hours No Sepsis New/Unexplained Change in Mental Status Yes Sepsis Action Taken by Nursing Physician Notified 06/02/21 12:50 06/02/21 12:51 06/02/21 13:00 Temperature Temperature Source Pulse Rate 90 91 H 92 H Pulse Rate [Right Finger] Pulse Rate from SpO2 Sensor 89 92 H Pulse Rhythm Pulse Strength Respiratory Rate 28 H 28 H 28 H Respiratory Effort / Characteristics Spontaneous Respiratory Depth Deep Respiratory Pattern Regular Blood Pressure 123/74 Blood Pressure Mean 90 Blood Pressure Position Pulse Oximetry 94 93 95 Oxygen Delivery Method Oxygen Flow Rate Fraction of Inspired Oxygen 45 Sepsis Recent Fever Within 48 Hours Sepsis New/Unexplained Change in Mental Status Sepsis Action Taken by Nursing 06/02/21 13:05 06/02/21 13:10 06/02/21 13:13 Temperature 37.5 C Temperature Source Oral Pulse Rate 97 H 88 Pulse Rate [Right Finger] 91 H Pulse Rate from SpO2 Sensor 88 Pulse Rhythm Pulse Strength Respiratory Rate 24 24 28 H Respiratory Effort / Characteristics Non-Labored Spontaneous Spontaneous Respiratory Depth Normal Respiratory Pattern Regular Blood Pressure 150/79 H Blood Pressure Mean 102 Blood Pressure Position Pulse Oximetry 88 L 97 93 Oxygen Delivery Method Nasal Cannula BiPAP Oxygen Flow Rate 5 Fraction of Inspired Oxygen 45 Sepsis Recent Fever Within 48 Hours No Sepsis New/Unexplained Change in Mental Status Yes Sepsis Action Taken by Nursing Physician Notified 06/02/21 13:20 06/02/21 13:30 06/02/21 13:40 Temperature Temperature Source Pulse Rate 85 86 86 Pulse Rate [Right Finger] Pulse Rate from SpO2 Sensor 85 86 86 Pulse Rhythm Pulse Strength Respiratory Rate 27 H 21 23 Respiratory Effort / Characteristics Respiratory Depth Respiratory Pattern Blood Pressure 110/64 Blood Pressure Mean 79 Blood Pressure Position Pulse Oximetry 97 99 98 Oxygen Delivery Method Oxygen Flow Rate Fraction of Inspired Oxygen Sepsis Recent Fever Within 48 Hours Sepsis New/Unexplained Change in Mental Status Sepsis Action Taken by Nursing 06/02/21 13:50 06/02/21 14:00 06/02/21 14:10 Temperature Temperature Source Pulse Rate 86 87 88 Pulse Rate [Right Finger] Pulse Rate from SpO2 Sensor 86 87 89 Pulse Rhythm Pulse Strength Respiratory Rate 24 23 24 Respiratory Effort / Characteristics Respiratory Depth Respiratory Pattern Blood Pressure 109/62 Blood Pressure Mean 77 Blood Pressure Position Pulse Oximetry 99 98 98 Oxygen Delivery Method Oxygen Flow Rate Fraction of Inspired Oxygen Sepsis Recent Fever Within 48 Hours Sepsis New/Unexplained Change in Mental Status Sepsis Action Taken by Nursing 06/02/21 14:20 06/02/21 14:30 06/02/21 14:40 Temperature Temperature Source Pulse Rate 88 92 H 93 H Pulse Rate [Right Finger] Pulse Rate from SpO2 Sensor 88 92 H 93 H Pulse Rhythm Pulse Strength Respiratory Rate 26 H 23 24 Respiratory Effort / Characteristics Respiratory Depth Respiratory Pattern Blood Pressure 127/70 Blood Pressure Mean 89 Blood Pressure Position Pulse Oximetry 98 99 98 Oxygen Delivery Method Oxygen Flow Rate Fraction of Inspired Oxygen Sepsis Recent Fever Within 48 Hours Sepsis New/Unexplained Change in Mental Status Sepsis Action Taken by Nursing 06/02/21 14:50 06/02/21 15:00 06/02/21 15:10 Temperature Temperature Source Pulse Rate 94 H 93 H 92 H Pulse Rate [Right Finger] Pulse Rate from SpO2 Sensor 94 H 93 H 92 H Pulse Rhythm Pulse Strength Respiratory Rate 26 H 24 25 H Respiratory Effort / Characteristics Respiratory Depth Respiratory Pattern Blood Pressure 132/72 Blood Pressure Mean 92 Blood Pressure Position Pulse Oximetry 98 97 96 Oxygen Delivery Method Oxygen Flow Rate Fraction of Inspired Oxygen Sepsis Recent Fever Within 48 Hours Sepsis New/Unexplained Change in Mental Status Sepsis Action Taken by Nursing 06/02/21 15:20 06/02/21 15:30 06/02/21 16:00 Temperature Temperature Source Pulse Rate 92 H 92 H 87 Pulse Rate [Right Finger] Pulse Rate from SpO2 Sensor 92 H 92 H 86 Pulse Rhythm Pulse Strength Respiratory Rate 26 H 24 25 H Respiratory Effort / Characteristics Respiratory Depth Respiratory Pattern Blood Pressure 108/62 132/69 Blood Pressure Mean 77 90 Blood Pressure Position Pulse Oximetry 97 96 97 Oxygen Delivery Method Oxygen Flow Rate Fraction of Inspired Oxygen Sepsis Recent Fever Within 48 Hours Sepsis New/Unexplained Change in Mental Status Sepsis Action Taken by [facility] Medications Current Medication List: was personally reviewed by me Laboratory Data Attestation: I reviewed the patient's lab results. Result diagrams: 06/02/21 12:20 06/02/21 12:20 Lab Results 06/02/21 06/02/21 06/02/21 Range/Units 12:20 12:20 12:20 WBC 16.35 H (4.8-10.8) K/uL RBC 4.49 L (4.7-6.1) M/uL Hgb 15.0 (14.0-18.0) g/dL Hct 44.2 (42-52) % MCV 98.4 (80-100) fL MCH 33.4 (25-34) pg MCHC 33.9 (32-36) g/dL RDW Std Deviation 46.3 (36.4-46.3) fL RDW Coeff of Judy 12.9 (11.5-14.5) % Plt Count 146 (130-400) K/uL MPV 11.6 H (7.4-10.4) fL Immature Gran % (Auto) 0.2 % Neut % (Auto) 88.8 % Lymph % (Auto) 2.4 % [place] % (Auto) 8.4 % Eos % (Auto) 0.1 % Baso % (Auto) 0.1 % Neut # (Auto) 14.51 H (1.4-6.5) K/uL Lymph # (Auto) 0.40 L (1.2-3.4) K/uL [place] # (Auto) 1.37 H (0.11-0.59) K/uL Eos # (Auto) 0.01 (0-0.5) K/uL Baso # (Auto) 0.02 (0-0.2) K/uL Immature Gran # (Auto) 0.04 H (0.00-0.02) K/uL PT (9.0-12.0) Seconds INR (0.9-1.1) APTT (21.0-31.0) Seconds PTT Ratio VBG pH (7.36-7.41) VBG pCO2 (38-50) mmHg VBG pO2 mmHg VBG HCO3 mmol/L VBG O2 Saturation % VBG Base Excess mEq/L Barometric Pressure mm/Hg Sodium 133 L (136-145) mmol/L Potassium 3.4 L (3.5-5.1) mmol/L Chloride 100 (98-107) mmol/L Carbon Dioxide 25 (21-32) mmol/L Anion Gap 8.0 (3-11) BUN 17 (7-18) mg/dl Creatinine 1.04 (0.6-1.4) mg/dl Est Cr Clr Drug Dosing 70.6 ml/min Est GFR ( Amer) 82.2 ml/min Est GFR (Non-Af Amer) 70.9 ml/min BUN/Creatinine Ratio 16.1 (10-20) Glucose 158 H (70-99) mg/dl Lactate (0.4-2.0) mmol/L Calcium 8.8 (8.5-10.1) mg/dl Magnesium 2.0 (1.8-2.4) mg/dl Total Bilirubin 0.9 (0.2-1) mg/dl AST 23 (15-37) U/L ALT 33 (12-78) U/L Alkaline Phosphatase 81 (45-117) U/L Troponin I < 0.015 (0-0.045) ng/ml Total Protein 7.9 (6.4-8.2) gm/dl Albumin 3.3 L (3.4-5.0) gm/dl Globulin 4.6 H (2.5-4.0) gm/dl Albumin/Globulin Ratio 0.7 L (0.9-2) Procalcitonin 0.73 H (0-0.5) ng/ml COVID-19 Eval Order SARS-CoV-2 (PCR) (Negative) 06/02/21 06/02/21 06/02/21 Range/Units 12:40 12:40 13:50 WBC (4.8-10.8) K/uL RBC (4.7-6.1) M/uL Hgb (14.0-18.0) g/dL Hct (42-52) % MCV (80-100) fL MCH (25-34) pg MCHC (32-36) g/dL RDW Std Deviation (36.4-46.3) fL RDW Coeff of Judy (11.5-14.5) % Plt Count (130-400) K/uL MPV (7.4-10.4) fL Immature Gran % (Auto) % Neut % (Auto) % Lymph % (Auto) % [place] % (Auto) % Eos % (Auto) % Baso % (Auto) % Neut # (Auto) (1.4-6.5) K/uL Lymph # (Auto) (1.2-3.4) K/uL [place] # (Auto) (0.11-0.59) K/uL Eos # (Auto) (0-0.5) K/uL Baso # (Auto) (0-0.2) K/uL Immature Gran # (Auto) (0.00-0.02) K/uL PT (9.0-12.0) Seconds INR (0.9-1.1) APTT (21.0-31.0) Seconds PTT Ratio VBG pH 7.32 L (7.36-7.41) VBG pCO2 54 H (38-50) mmHg VBG pO2 28 mmHg VBG HCO3 27 mmol/L VBG O2 Saturation < 60.0 % VBG Base Excess 0.5 mEq/L Barometric Pressure 730.6 mm/Hg Sodium (136-145) mmol/L Potassium (3.5-5.1) mmol/L Chloride (98-107) mmol/L Carbon Dioxide (21-32) mmol/L Anion Gap (3-11) BUN (7-18) mg/dl Creatinine (0.6-1.4) mg/dl Est Cr Clr Drug Dosing ml/min Est GFR ( Amer) ml/min Est GFR (Non-Af Amer) ml/min BUN/Creatinine Ratio (10-20) Glucose (70-99) mg/dl Lactate (0.4-2.0) mmol/L Calcium (8.5-10.1) mg/dl Magnesium (1.8-2.4) mg/dl Total Bilirubin (0.2-1) mg/dl AST (15-37) U/L ALT (12-78) U/L Alkaline Phosphatase (45-117) U/L Troponin I (0-0.045) ng/ml Total Protein (6.4-8.2) gm/dl Albumin (3.4-5.0) gm/dl Globulin (2.5-4.0) gm/dl Albumin/Globulin Ratio (0.9-2) Procalcitonin (0-0.5) ng/ml COVID-19 Eval Order Covid19 at [facility] SARS-CoV-2 (PCR) NEGATIVE (Negative) 06/02/21 06/02/21 06/02/21 Range/Units 13:50 13:50 15:51 WBC (4.8-10.8) K/uL RBC (4.7-6.1) M/uL Hgb (14.0-18.0) g/dL Hct (42-52) % MCV (80-100) fL MCH (25-34) pg MCHC (32-36) g/dL RDW Std Deviation (36.4-46.3) fL RDW Coeff of Judy (11.5-14.5) % Plt Count (130-400) K/uL MPV (7.4-10.4) fL Immature Gran % (Auto) % Neut % (Auto) % Lymph % (Auto) % [place] % (Auto) % Eos % (Auto) % Baso % (Auto) % Neut # (Auto) (1.4-6.5) K/uL Lymph # (Auto) (1.2-3.4) K/uL [place] # (Auto) (0.11-0.59) K/uL Eos # (Auto) (0-0.5) K/uL Baso # (Auto) (0-0.2) K/uL Immature Gran # (Auto) (0.00-0.02) K/uL PT 11.1 (9.0-12.0) Seconds INR 1.1 (0.9-1.1) APTT 26.8 (21.0-31.0) Seconds PTT Ratio 1.0 VBG pH (7.36-7.41) VBG pCO2 (38-50) mmHg VBG pO2 mmHg VBG HCO3 mmol/L VBG O2 Saturation % VBG Base Excess mEq/L Barometric Pressure mm/Hg Sodium (136-145) mmol/L Potassium (3.5-5.1) mmol/L Chloride (98-107) mmol/L Carbon Dioxide (21-32) mmol/L Anion Gap (3-11) BUN (7-18) mg/dl Creatinine (0.6-1.4) mg/dl Est Cr Clr Drug Dosing ml/min Est GFR ( Amer) ml/min Est GFR (Non-Af Amer) ml/min BUN/Creatinine Ratio (10-20) Glucose (70-99) mg/dl Lactate 2.4 H* 5.1 H* (0.4-2.0) mmol/L Calcium (8.5-10.1) mg/dl Magnesium (1.8-2.4) mg/dl Total Bilirubin (0.2-1) mg/dl AST (15-37) U/L ALT (12-78) U/L Alkaline Phosphatase (45-117) U/L Troponin I (0-0.045) ng/ml Total Protein (6.4-8.2) gm/dl Albumin (3.4-5.0) gm/dl Globulin (2.5-4.0) gm/dl Albumin/Globulin Ratio (0.9-2) Procalcitonin (0-0.5) ng/ml COVID-19 Eval Order SARS-CoV-2 (PCR) (Negative) Administered Medications Miscellaneous Information (Piperacill/Tazobac Consult Active) 1 ea N/A UD PRN PRN Reason: Consult Stop: 07/02/21 12:38 Last Admin: 06/02/21 13:10 Dose: 1 ea Documented by: [id number] Discontinued Medications Albuterol (Albut/Ipratrop 3mg/0.5mg Neb 3 Ml Vial) 12 ml NEB ONE ONE Stop: 06/02/21 12:43 Last Admin: 06/02/21 13:00 Dose: 12 ml Documented by: [id number] Sodium Chloride (Nss 1000ml) 1,000 mls @ 999 mls/hr IV .Q1H1M GIRISH Stop: 06/02/21 13:45 Last Infusion: 06/02/21 14:07 Dose: 999 mls/hr Documented by: [id number] Admin: 06/02/21 13:10 Dose: 999 mls/hr Documented by: [id number] Piperacillin Sod/Tazobactam Sod (Zosyn) 4.5 gm in 120 mls @ 240 mls/hr IV NOW ONE Stop: 06/02/21 13:08 Last Infusion: 06/02/21 14:07 Dose: 240 mls/hr Documented by: [id number] Admin: 06/02/21 13:09 Dose: 240 mls/hr Documented by: [id number] Magnesium Sulfate/Dextrose (Magnesium Sulfate / D5w) 1 gm in 100 mls @ 50 mls/hr IV ONE ONE Stop: 06/02/21 14:41 Last Admin: 06/02/21 13:09 Dose: 50 mls/hr Documented by: [id number] Sodium Chloride (Nss 1000ml) 1,000 mls @ 999 mls/hr IV .Q1H1M ONE Stop: 06/02/21 15:10 Last Admin: 06/02/21 14:16 Dose: 999 mls/hr Documented by: [id number] Methylprednisolone (Methylprednisolone 125 Mg/2 Ml Vial) 60 mg IV NOW STA Stop: 06/02/21 12:43 Last Admin: 06/02/21 13:09 Dose: 60 mg Documented by: [id number] Imaging Data Radiologist's Impression: Chest X-Ray 06/02/21 12:40 XR chest 1V portable CLINICAL HISTORY: SEPSIS TECHNIQUE: Single frontal radiograph of the chest was obtained. Comparison: Comparison is made to chest one view 04/06/2021 FINDINGS: No lines and tubes are seen. The cardiomediastinal silhouette is normal. Bilateral lower lung predominant airspace opacities are seen. No evidence of pleural effusion or pneumothorax. IMPRESSION: Bilateral lower lung predominant airspace opacities which may represent atelectasis, pneumonia, and/or aspiration. ACT 112: Negative or not required by law. Electronically signed by: Richi Graves M.D. 06/02/2021 1:22 PM Discharge Plan Visit Data Chief Complaint: Shortness of Breath/Dyspnea ED Provider: Tyrese Smith Discharge Problem: Acute respiratory failure with hypoxia and hypercarbia, Bilateral pneumonia, Acute exacerbation of chronic obstructive pulmonary disease Patient Disposition: Admitted As Inpatient Forms Stand Alone Forms: My [facility] Prescriptions Prescriptions: No Action latanoprost 0.005 % Drops 1 drp OPB HS RF: 0 citalopram 20 mg tablet 20 mg Feeding Tube QAM RF: 0 Nutritional Drink Liquid 2 can Feeding Tube QID RF: 0 brimonidine 0.2 % drops 1 drp OPB BID RF: 0 albuterol sulfate 90 mcg/actuation HFA aerosol inhaler 2 puff INHALATION QID PRN (Reason: Shortness Of Breath) RF: 0 acetaminophen [Tylenol Extra Strength] 500 mg Tablet 1,000 mg PO Q6H PRN (Reason: Pain) RF: 0 levothyroxine [Euthyrox] 88 mcg tablet 88 mcg feeding tube DAILY RF: 0 atorvastatin 40 mg tablet 40 mg PO DAILY RF: 0 aspirin 81 mg Capsule 81 mg PO DAILY RF: 0 albuterol sulfate 2.5 mg /3 mL (0.083 %) solution for nebulization 2.5 mg inhalation Q6H PRN (Reason: bronchospasm) Qty: 75 RF: 0 tramadol 50 mg tablet 50 mg feeding tube Q6H PRN (Reason: Pain) RF: 0 midodrine 5 mg Tablet 5 mg feeding tube BID PRN (Reason: Hypotension) RF: 0 nitroglycerin 0.4 mg Tablet, Sublingual 0.4 mg sublingual UD PRN (Reason: ud) RF: 0 Referrals Referrals: Sanjiv Hart MD [Primary Care Provider] -
[2021-06-02] MEDS ORDERED: PIPERACILLIN/TAZOBACTAM 4.5 GM/120 ML BAG IV ONE (12:39)
[2021-06-02] MEDS ORDERED: PIPERACILL/TAZOBAC CONSULT ACTIVE PRN ×2 (12:39→18:56)
[2021-06-02] MEDS ORDERED: ALBUT/IPRATROP 3MG/0.5MG NEB 3 ML VIAL NEB ONE (12:42)
[2021-06-02] MEDS ORDERED: MAGNESIUM SULFATE / D5W 1 GM/100 ML BAG IV ONE (12:42)
[2021-06-02] MEDS ORDERED: methylPREDNISolone 125 MG/2 ML VIAL IV STA (12:42)
[2021-06-02] MEDS ORDERED: SODIUM CHLORIDE 0.9% 1000ML 1,000 ML IV SCH (12:45)
--- NOTE | 2021-06-02 13:23 | XRay Report ---
XR chest 1V portable CLINICAL HISTORY: SEPSIS TECHNIQUE: Single frontal radiograph of the chest was obtained. Comparison: Comparison is made to chest one view 04/06/2021 FINDINGS: No lines and tubes are seen. The cardiomediastinal silhouette is normal. Bilateral lower lung predomi nant airspace opacities are seen. No evidence of pleural effusion or pneumothorax. IMPRESSION: Bilateral lower lung predominant airspace opacities which may represent atelectasis, pneumonia, and/o r aspiration. ACT 112: Negative or not required by law. Electronically signed by: Richi Graves M.D. 06/02/2021 1:22 PM
[2021-06-02 13:25] LABS: Basophils # (auto) 0.02 K/uL (0-0.2); Basophils % (auto) 0.1 %; Eosinophils # (auto) 0.01 K/uL (0-0.5); Eosinophils % (auto) 0.1 %; Hematocrit (blood only) 44.2 % (42-52); Immature Granulocytes # (auto) 0.04 K/uL (0.00-0.02); Immature Granulocytes % (auto) 0.2 %; Lymphocytes % (auto) 2.4 %; Mean Corpuscular Hemoglobin 33.4 pg (25-34); Mean Corpuscular Hgb Conc 33.9 g/dL (32-36); Mean Corpuscular Volume 98.4 fL (80-100); Mean Platelet Volume 11.6 fL (7.4-10.4); Monocytes # (auto) 1.37 K/uL (0.11-0.59); Monocytes % (auto) 8.4 %; Neutrophils # (auto) 14.51 K/uL (1.4-6.5); Neutrophils % (auto) 88.8 %; Platelet Count 146 K/uL (130-400); RDW Coefficient of Variation 12.9 % (11.5-14.5); RDW Standard Deviation 46.3 fL (36.4-46.3); Red Blood Count 4.49 M/uL (4.7-6.1); White Blood Count 16.35 K/uL (4.8-10.8)
[2021-06-02 13:29] LABS: Alanine Aminotransferase 33 U/L (12-78); Albumin Level 3.3 gm/dl (3.4-5.0); Aspartate Aminotransferase 23 U/L (15-37); BUN Creatinine Ratio 16.1 (10-20); Blood Urea Nitrogen 17 mg/dl (7-18); Calcium 8.8 mg/dl (8.5-10.1); Carbon Dioxide 25 mmol/L (21-32); Chloride 100 mmol/L (98-107); Creatinine Clr Calc Pharmacy 70.6 ml/min; Est GFR (African American) 82.2 ml/min; Est GFR (Non-African American) 70.9 ml/min; Glucose 158 mg/dl (70-99); Potassium 3.4 mmol/L (3.5-5.1); Sodium 133 mmol/L (136-145)
[2021-06-02 13:34] LABS: Albumin Globulin Ratio 0.7 (0.9-2); Alkaline Phosphatase 81 U/L (45-117); Bilirubin,Total 0.9 mg/dl (0.2-1); Globulin 4.6 gm/dl (2.5-4.0); Total Protein 7.9 gm/dl (6.4-8.2); Troponin I < 0.015 ng/ml (0-0.045)
[2021-06-02 14:06] LABS: Base Excess VBG 0.5 mEq/L; HCO3 VBG 27 mmol/L; PCO2 VBG 54 mmHg (38-50); PO2 VBG 28 mmHg; pH VBG 7.32 (7.36-7.41)
[2021-06-02 14:08] LABS: Oxygen Saturation VBG < 60.0 %
[2021-06-02] MEDS ORDERED: SODIUM CHLORIDE 0.9% 1000ML 1,000 ML IV ONE (14:10)
[2021-06-02 14:17] LABS: INR 1.1 (0.9-1.1); Partial Thromboplastin Time 26.8 Seconds (21.0-31.0); Prothrombin Time 11.1 Seconds (9.0-12.0)
--- NOTE | 2021-06-02 16:45 | Electrocardiogram Report ---
Test Reason : Blood Pressure : / mmHG Vent. Rate : 091 BPM Atrial Rate : 091 BPM P-R Int : 156 ms QRS Dur : 084 ms QT Int : 362 ms P-R-T Axes : 056 -51 040 degrees QTc Int : 445 ms Normal sinus rhythm Incomplete right bundle branch block Left anterior fascicular block Abnormal ECG When compared with ECG of 06-APR-2021 15:47, No significant change was found Confirmed by Will Luna ([id number]) on 06/02/2021 4:44:54 PM Referred By: REFERRED SELF Confirmed By:Will Luna
--- NOTE | 2021-06-02 17:41 | CT Scan Report ---
CT head/brain wo con CLINICAL HISTORY: 75 years-old Male with headache. Acute headache TECHNIQUE: Multiple axial CT images of the head were obtained without contrast. A dose lowering tech nique was utilized adhering to the principles of ALARA. CT DOSE: 746.71 mGy.cm COMPARISON: 12/14/2020 FINDINGS: No acute intracranial hemorrhage, midline shift, intracranial mass, hydrocephalus, territorial ischem ia or abnormal extra-axial collection. Age-related involutional changes. Mild white matter hypodensit ies suggest chronic microvascular ischemic disease. Senescent calcifications of the left lentiform nu cleus. The calvarium is intact. The paranasal sinuses, mastoid air cells, and middle ear cavities are clear . IMPRESSION: No acute intracranial abnormality. ACT 112: Negative or not required by law. The above report was generated using voice recognition software. It may contain grammatical, syntax o r spelling errors. Electronically signed by: Yehuda Luna M.D. 06/02/2021 5:39 PM
[2021-06-02] MEDS ORDERED: ACETAMINOPHEN 325 MG TAB PO PRN (18:56)
[2021-06-02] MEDS ORDERED: MIDODRINE HCL 2.5 MG TAB PO PRN (18:56)
[2021-06-02] MEDS ORDERED: traMADol HCL 50 MG TABLET PO PRN (18:56)
[2021-06-02] MEDS ORDERED: NITROGLYCERIN SL 0.4 MG/TAB TAB SL PRN (18:56)
--- NOTE | 2021-06-02 19:41 | History & Physical Report ---
Date of Service June 02, 2021 Assessment & Plan (1) Acute respiratory failure with hypoxia: (2) Aspiration pneumonia: (3) Sepsis: Plan: -Admit to telemetry -Patient presenting from home with reports of worsening shortness of breath, wheezing, suspected aspiration -In the ED, patient saturating 88% on room air and was placed on BiPAP due to concerns of lethargy. Patient is improving. -CXR shows bibasilar opacities. -Mildly tachycardic in the 90s, WBC 16 K, lactic acid 2.4 --> 5.1. Continue IVF, trend lactate -S/p Zosyn in the ED, continue with -Follow blood cultures -Hold tube feedings for now (4) Labile blood pressure: Plan: -History of labile blood pressures, recently evaluated at [facility] cardiology -Takes amlodipine daily and utilizes SL nitro as needed for high blood pressure and midodrine as needed for low blood pressure -BP currently stable and controlled (5) Tonsil carcinoma: (6) S/P percutaneous endoscopic gastrostomy (PEG) tube placement: Plan: -History of in 2010 -S/p radiation and resection and PEG tube placement -Holding tube feeds as above (7) DVT prophylaxis: Plan: -SQ Lovenox Admission and Anticipated Discharge Date Admission Date: June 02, 2021 History of Present Illness Chief Complaint: Shortness of breath Primary Care Provider: Sanjiv Hart MD 75-year-old male with PMH head and neck cancer s/p resection and radiation in 2010, s/p PEG tube, labile hypertension, COPD, hypothyroidism, and other problems listed below who presents to the ED for evaluation of shortness of breath. is at the bedside who provides some history. Wifereports that last evening, when patient went to bed he felt like he was regurgitating some of his tube feeds and it may have went into his lungs. Patient has had a PEG tube for the past 10 years and reports that he never lies down less than 2 hours after feeding and also always sleeps up on 4 pillows. Last night, when patient went to bed he had only used one pillow. Overnight, patient had worsening shortness of breath and wheezing. was also concerned about lethargy. She called EMS and patient was brought to the ED for further evaluation. reports the patient has been doing well recently. No reports of chest pain. Denies lightheadedness, dizziness, diaphoresis, syncopal events. No abdominal pain, nausea, vomiting, diarrhea. No urinary symptoms. In the ED, patient was saturating 88% on room air and was placed on BiPAP. CXR shows bibasilar opacities. Patient was mildly tachycardic with heart rate in the 90s, WBC 16 K, initial lactate 2.4. Patient was given nebulizer treatment, IV magnesium, IV Solu-Medrol 60 mg, IV Zosyn, IVF. Allergies Allergy/AdvReac Type Severity Reaction Status Date / Time sulfamethoxazole Allergy Intermediate ITCHING Verified 06/02/21 14:14 trimethoprim Allergy Intermediate ITCHING Verified 06/02/21 14:14 levofloxacin Allergy Mild rash all Verified 06/02/21 14:14 over body sertraline Allergy Mild NOSE BLEEDS Verified 06/02/21 14:14 terazosin Allergy Unknown DOES NOT Verified 06/02/21 14:14 KNOW Nitrate Analogues AdvReac Severe DROP IN BP Verified 06/02/21 14:14 Home Medications Medication Instructions Recorded Confirmed Type citalopram 20 mg tablet 20 mg FEEDING TUBE QAM 05/07/18 06/02/21 History food supplemt, lactose-reduced 2 can FEEDING TUBE QID 05/07/18 06/02/21 History (Nutritional Drink) latanoprost 0.005 % eye drops 1 drp OPB HS 01/30/19 06/02/21 History albuterol sulfate 2.5 mg INHALATION Q6H PRN #75 ml 11/01/20 06/02/21 Rx albuterol sulfate 90 mcg/actuation 2 puff INHALATION QID PRN 11/08/20 06/02/21 History aerosol inhaler brimonidine 0.2 % eye drops 1 drp OPB BID 11/08/20 06/02/21 History tramadol 50 mg tablet 50 mg FEEDING TUBE Q6H PRN 03/04/21 06/02/21 History acetaminophen 500 mg tablet 1,000 mg PO Q6H PRN 03/06/21 06/02/21 History (Tylenol Extra Strength) levothyroxine 88 mcg tablet 88 mcg FEEDING TUBE DAILY 04/06/21 06/02/21 History (Euthyrox) midodrine 5 mg tablet 5 mg FEEDING TUBE BID PRN 05/13/21 06/02/21 History nitroglycerin 0.4 mg sublingual 0.4 mg SUBLINGUAL UD PRN 05/13/21 06/02/21 History tablet aspirin 81 mg capsule 81 mg PO DAILY 06/02/21 06/02/21 History atorvastatin 40 mg tablet 40 mg PO DAILY 06/02/21 06/02/21 History Past Med/Surg History Medical History Anxiety Aspiration pneumonia hx - CAN NOT TAKE FOOD/LIQUIDS ORALLY Asthma rare use of PRN inh Benign prostatic hyperplasia (Unknown) Blood pressure instability new issue for pt -- [facility] manages; currently using midodrine and nitro PRN hypo/hypertension; per , cardiac workup wnl aside from BP changes Chronic back pain COPD (chronic obstructive pulmonary disease) with emphysema Degenerative disc disease Depression Gastroparesis GERD (gastroesophageal reflux disease) Glaucoma Hypertension Hypothyroidism Osteoarthritis Tonsil carcinoma (Unknown) RADIATION AND CHEMO Uses feeding tube Surgical History (Updated 06/02/21 @ 19:37 by LIT Stallings) H/O esophagogastroduodenoscopy (Unknown) WITH PLACEMENT PEG TUBE History of anesthesia reaction SLOW TO WAKE UP History of neck surgery LUMPECTOMY History of tooth extraction S/P arthroscopic knee surgery (Unknown) RT S/P colonoscopy (Unknown) S/P percutaneous endoscopic gastrostomy (PEG) tube placement Family History Brother Family history of diabetes mellitus Social History Smoking Status: Former smoker Tobacco Type: Cigarettes Second Hand Exposure: No; Do You Dip or Chew Tobacco: No; Tobacco Cessation Education Requested by Patient: No Hx Alcohol Use: No Hx Substance Use: No Preferred Language: Serbian 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 Ability: Impaired 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: No Beliefs That Will Affect Care: None marital status: Current Living Situation: Spouse Other Information That Helps Us Care for You: No Feels Safe at Home: Yes Safety Concerns: Feels Safe At This Time Assistive Devices: None Review of Systems Review of Systems: Unobtainable due to cognitive status Physical Exam Constitutional: WD/WN, vitals as above Eyes: PERRL, conjunctivae normal, anicteric sclerae ENMT: Ears: + hearing impairment Respiratory: normal respiratory effort; no respiratory distress Auscultation: + diminished lung sounds On BiPAP Cardiovascular: Rate/Rhythm: regular rhythm and + tachycardic Vessels: normal peripheral pulses Extremities: no edema Gastrointestinal (Abdomen): normal bowel sounds, soft, nontender, no hepatosplenomegaly PEG tube in place Musculoskeletal: no cyanosis or clubbing, extremities motor strength 5/5 Skin: no rashes, warm and dry Neurologic: Speech / Cognition: + abnormal speech (Chronically due to previous head and neck cancer resection) Cranial Nerves: PERRL, normal accommodation and EOM intact bilaterally Psychiatric: Orientation: oriented x 3; + not alert (Sleeping however arouses easily to verbal stimuli) Affect: euthymic affect Results & Data Results & Data ([facility]) Vital Signs (Past 12 Hours) Vital Signs Temp Pulse Pulse Resp BP Pulse Ox 06/02/21 17:28 36.7 C 76 20 143/70 H 06/02/21 16:00 87 25 H 132/69 97 06/02/21 15:30 92 H 24 108/62 96 06/02/21 15:20 92 H 26 H 97 06/02/21 15:10 92 H 25 H 96 06/02/21 15:00 93 H 24 132/72 97 06/02/21 14:50 94 H 26 H 98 06/02/21 14:40 93 H 24 98 06/02/21 14:30 92 H 23 127/70 99 06/02/21 14:20 88 26 H 98 06/02/21 14:10 88 24 98 06/02/21 14:00 87 23 109/62 98 06/02/21 13:50 86 24 99 06/02/21 13:40 86 23 98 06/02/21 13:30 86 21 110/64 99 06/02/21 13:20 85 27 H 97 06/02/21 13:13 91 H 28 H 93 06/02/21 13:10 88 24 97 06/02/21 13:05 37.5 C 97 H 24 150/79 H 88 L 06/02/21 13:00 92 H 28 H 123/74 95 06/02/21 12:51 91 H 28 H 93 06/02/21 12:50 90 28 H 94 06/02/21 12:43 90 30 H 96 06/02/21 12:40 24 98 06/02/21 11:51 36.8 C 92 H 24 123/74 95 Laboratory Results Short CBC 06/02/21 06/02/21 06/02/21 Range/Units 12:20 13:50 15:51 WBC 16.35 H (4.8-10.8) K/uL Hgb 15.0 (14.0-18.0) g/dL Hct 44.2 (42-52) % Plt Count 146 (130-400) K/uL Lactate 2.4 H* 5.1 H* (0.4-2.0) mmol/L BMP 06/02/21 12:20 Sodium 133 L Potassium 3.4 L Chloride 100 Carbon Dioxide 25 BUN 17 Creatinine 1.04 Glucose 158 H Calcium 8.8 Cardiac Enzymes 06/02/21 Range/Units 12:20 Troponin I < 0.015 (0-0.045) ng/ml Liver Function 06/02/21 Range/Units 12:20 Total Bilirubin 0.9 (0.2-1) mg/dl AST 23 (15-37) U/L ALT 33 (12-78) U/L Alkaline Phosphatase 81 (45-117) U/L Albumin 3.3 L (3.4-5.0) gm/dl Diagnostic Findings Chest X-Ray 06/02/21 12:40 XR chest 1V portable CLINICAL HISTORY: SEPSIS TECHNIQUE: Single frontal radiograph of the chest was obtained. Comparison: Comparison is made to chest one view 04/06/2021 FINDINGS: No lines and tubes are seen. The cardiomediastinal silhouette is normal. Bilateral lower lung predominant airspace opacities are seen. No evidence of pleural effusion or pneumothorax. IMPRESSION: Bilateral lower lung predominant airspace opacities which may represent atelectasis, pneumonia, and/or aspiration. ACT 112: Negative or not required by law. Electronically signed by: Richi Graves M.D. 06/02/2021 1:[address] 06/02/21 16:04 CT head/brain wo con CLINICAL HISTORY: 75 years-old Male with headache. Acute headache TECHNIQUE: Multiple axial CT images of the head were obtained without contrast. A dose lowering technique was utilized adhering to the principles of ALARA. CT DOSE: 746.71 mGy.cm COMPARISON: 12/14/2020 FINDINGS: No acute intracranial hemorrhage, midline shift, intracranial mass, hydrocephalus, territorial ischemia or abnormal extra-axial collection. Age- related involutional changes. Mild white matter hypodensities suggest chronic microvascular ischemic disease. Senescent calcifications of the left lentiform nucleus. The calvarium is intact. The paranasal sinuses, mastoid air cells, and middle ear cavities are clear. IMPRESSION: No acute intracranial abnormality. ACT 112: Negative or not required by law. The above report was generated using voice recognition software. It may contain grammatical, syntax or spelling errors. Electronically signed by: Yehuda Luna M.D. 06/02/2021 5:39 PM Code Status & VTE Plan Code Status Patient is a full code as per my discussion with patient's who is the bedside. VTE Prophylaxis Plan VTE Prophylaxis will be ordered: Yes Supervising Physician Co-Signing Physician Notes Attending Addendum: care coordinated with LIT Todd please refer to her notes for full details, I agree with her notes patient seen and examined, records reviewed by myself as well on exam, patient seen resting in bed, sitting up on Bipap, not in distress, appears weak/tired states his breathing improving no chest pain, dyspnea, palpitations, dizziness no abdominal pain, nausea/vomiting no other symptoms VS noted and reviewed oriented x 3, not in distress, speaks in sentences with no effort nor accessory muscle use normal rate, regular rhythm, no murmurs mildly diminished breath sounds bilaterally non distended, soft, nontender PEG tube in place: no issues no bipedal edema, erythema, warmth no neuro deficits WBC 16 Hg 15 Crea 1.04 CXR Bilateral basilar infiltrates ASSESSMENT AND PLAN ACUTE HYPOXIC RESPIRATORY FAILURE BILATERAL PNEUMONIA, LIKELY ASPIRATION PEG TUBE STATUS continue Zosyn IV wean off bipap hold PEG tube feeding will consult GI other diagnoses and plan of care as per LIT Todd's notes Remigio Rico MD
[2021-06-02] MEDS: ALBUT/IPRATROP 3MG/0.5MG NEB 3 ML VIAL NEB SCH ×2 (19:44→23:17)
[2021-06-02] MEDS: D5NSS + 20MEQ KCL 20 MEQ/1,000 ML BAG IV SCH (20:23)
[2021-06-02] MEDS: PIPERACILLIN/TAZOBACTAM 3.375 GM in DEXTROSE 5% 100 ML IV SCH (20:23)
[2021-06-02] MEDS ORDERED: BRIMONIDINE TART 0.2% OP SOLN PER DROP CHARGE OPB SCH (21:00)
[2021-06-02] MEDS: LATANOPROST 0.005% OP SOLN 2.5 ML BTL OPB SCH (22:11)
[2021-06-02] MEDS: ENOXAPARIN INJ 40 MG/0.4 ML SYR SQ SCH (22:12)
[2021-06-02] MEDS: BRIMONIDINE TARTRATE 0.2% 5ML OPB SCH (22:34)
[2021-06-03] MEDS: ALBUT/IPRATROP 3MG/0.5MG NEB 3 ML VIAL NEB SCH ×6 (03:13→22:28)
[2021-06-03] MEDS: PIPERACILLIN/TAZOBACTAM 3.375 GM in DEXTROSE 5% 100 ML IV SCH ×3 (04:44→20:37)
[2021-06-03 05:58] LABS: Hematocrit (blood only) 36.7 % (42-52); Hemoglobin 12.2 g/dL (14.0-18.0); Mean Corpuscular Hemoglobin 32.8 pg (25-34); Mean Corpuscular Hgb Conc 33.2 g/dL (32-36); Mean Corpuscular Volume 98.7 fL (80-100); Mean Platelet Volume 11.2 fL (7.4-10.4); Platelet Count 134 K/uL (130-400); RDW Coefficient of Variation 12.9 % (11.5-14.5); RDW Standard Deviation 46.8 fL (36.4-46.3); Red Blood Count 3.72 M/uL (4.7-6.1); White Blood Count 17.45 K/uL (4.8-10.8)
[2021-06-03] MEDS: LEVOTHYROXINE SODIUM 88 MCG TABLET PEG SCH (06:17)
[2021-06-03 07:21] LABS: BUN Creatinine Ratio 20.1 (10-20); Calcium 8.5 mg/dl (8.5-10.1); Creatinine Clr Calc Pharmacy 63.3 ml/min; Est GFR (Non-African American) 62.1 ml/min
[2021-06-03] MEDS: D5NSS + 20MEQ KCL 20 MEQ/1,000 ML BAG IV SCH ×2 (08:37→22:16)
[2021-06-03] MEDS: ASPIRIN 81 MG CHEW PEG SCH (09:23)
[2021-06-03] MEDS: CITALOPRAM 20 MG TAB PEG SCH (09:23)
[2021-06-03] MEDS: ATORVASTATIN 40 MG TAB PEG SCH (09:23)
[2021-06-03] MEDS: BRIMONIDINE TARTRATE 0.2% 5ML OPB SCH ×2 (09:23→20:38)
--- NOTE | 2021-06-03 10:23 | XRay Report ---
KUB HISTORY: Acute aspiration with reported PEG tube aspiration, PEG tube in place COMPARISON: CT abdomen pelvis 12/14/2020 FINDINGS: Nonobstructive bowel gas pattern. A PEG tube is present projected over the mid gastric body . Mild gaseous distention of the stomach. Nonobstructive bowel gas pattern. Mild fecal retention. No renal calculi. No ureteral calculi. No pneumoperitoneum or pneumatosis. No fracture. IMPRESSION: 1. PEG tube projects over the gastric body. 2. Nonobstructive bowel gas pattern. ACT 112: Negative or not required by law. The above report was generated using voice recognition software. It may contain grammatical, syntax o r spelling errors. Electronically signed by: Yehuda Luna M.D. 06/03/2021 10:22 AM
[2021-06-03] MEDS ORDERED: TUBE FEEDING WATER FLUSH GT SCH (12:00)
[2021-06-03] MEDS: FIBERSOURCE HN 1.2 CAL 1000 ML BAG GT SCH ×3 (12:47→21:03)
--- NOTE | 2021-06-03 14:00 | Hospitalist Progress Note ---
Date of Service June 03, 2021 Assessment & Plan (1) Acute respiratory failure with hypoxia: (2) Aspiration pneumonia: (3) Sepsis: Plan: Per LIT chapin's notes: -Patient presenting from home with reports of worsening shortness of breath, wheezing, suspected aspiration -In the ED, patient saturating 88% on room air and was placed on BiPAP due to concerns of lethargy. Patient is improving. -CXR shows bibasilar opacities. -Mildly tachycardic in the 90s, WBC 16 K, lactic acid 2.4 --> 5.1. Continue IVF, trend lactate -S/p Zosyn in the ED, continue with -Follow blood cultures -Hold tube feedings for now 06/03/2021 Weaned off BiPAP, now on 3 L of oxygen via nasal cannula Afebrile Clinically improving Follow-up cultures Continue IV Zosyn GI consulted Recommend to resume PEG tube feedings today Monitor closely (4) Labile blood pressure: Plan: Per LIT chapin's notes: -History of labile blood pressures, recently evaluated at [facility] cardiology -Takes amlodipine daily and utilizes SL nitro as needed for high blood pressure and midodrine as needed for low blood pressure BP low this morning Asymptomatic Continue midodrine (5) Tonsil carcinoma: (6) S/P percutaneous endoscopic gastrostomy (PEG) tube placement: Plan: -History of in 2010 -S/p radiation and resection and PEG tube placement PEG tube recently replaced May 07, 2021 GI consult No issues with PEG tube at this point Recommend strict aspiration precautions after tube feedings to prevent aspiration pneumonia We will need to educate patient and Resume tube feeding today (7) DVT prophylaxis: Plan: -SQ Lovenox Disposition Anticipate discharge to home when medically stable Admission and Anticipated Discharge Date Admission Date: June 02, 2021 Subjective In good spirits, ff up for aspiration pneumonia, hypoxic respiratory failure, etc resting in bed, sitting up on 3 L o2 via nasal cannula comfortable, not in distress, in good spirits States he feels better today compared to yesterday Breathing is improving Still has some coughing with brown sputum no chest pain, dyspnea, palpitations, dizziness No abdominal pain, nausea vomiting or fevers or chills No other symptoms Review of Systems Review of Systems: all noted and negative except for above Physical Exam Physical Exam: General- oriented x 3, not in distress, speaks in sentences with no effort or accessory muscle use Eyes- anicteric Neck- no JVD Lungs-mild rhonchi at the bases, good air entry bilaterally No wheezing Heart- normal rate, regular rhythm; no murmurs Abdomen- normal bowel sounds, nondistended, soft, nontender PEG tube in place, no issues Extremities- no pretibial edema, no calf tenderness Neuro- alert, oriented x 3; no gross focal neurologic deficits Skin- warm & dry Results & Data Results & Data ([facility]) Vital Signs (Past 12 Hours) Vital Signs Temp Pulse Pulse Resp BP Pulse Ox Pulse Ox 06/03/21 12:56 71 100/54 L 98 06/03/21 11:47 36.8 C 77 21 71/29 L 95 06/03/21 10:47 70 22 90 06/03/21 08:00 36.9 C 75 73 22 95/44 L 94 94 06/03/21 07:10 74 20 94 06/03/21 04:00 73 24 102/49 L 98 06/03/21 03:13 71 18 97 all noted and reviewed including below
--- NOTE | 2021-06-03 15:25 | Gastrointestinal Consultation ---
Date of Consultation June 03, 2021 Assessment & Plan (1) Aspiration pneumonia: Not related to the endoscopic procedure 2 wks ago. Aspiration pneumonia can occur from gastroesophageal reflux in patients that have PEG tubes. If has had aspiration in the past, then should always receive feedings in an upright/sitting up (or only very slightly reclining) position. Should remain upright for 2-3 hrs after feedings. In patients who have had cancer, resection/radiation - higher rates of fistula formation. Consider CT chest to r/o esophageal to airway fistula. GI will sign off. please notify us if new GI issues. (2) S/P percutaneous endoscopic gastrostomy (PEG) tube placement: See above Supervising Physician Co-Signing Physician Notes Attg add: I interviewed and examined pt, reviewed chart and labs. Pt has PEG tube related to prior HEENT cancer, s/p recent PEG tube change 2 weeks ago now admit with asp pneumo. Aspiration unlikely related to PEG tube, can consider chest/neck imaging to r.o fistula although there is no history to suggest this. May consider converting G tube to J tube later this week if pt amenable. History of Present Illness Reason for Consultation: Aspiration pneumonia Requesting Physician: Dr. Rico Attending Physician: Remigio Rico MD History of Present Illness Mr. Rodney Canseco is a 75 yr old male pt of Dr. Sanjiv Hart with a hx of COPD, head/neck cancer neck cancer s/p resection and radiation in 2010, HTN, COPD, hypothyroidism who underwent endoscopic PEG tube replacement on 05/16 due to fa ulty tube. He was doing well after that until yesterday when he experienced the sudden onset of cough and SOB. He was brought to [facility] ED yesterday. On arrival, imaging was consistent with aspiration pneumonia. Allergies Allergy/AdvReac Type Severity Reaction Status Date / Time sulfamethoxazole Allergy Intermediate ITCHING Verified 06/02/21 14:14 trimethoprim Allergy Intermediate ITCHING Verified 06/02/21 14:14 levofloxacin Allergy Mild rash all Verified 06/02/21 14:14 over body sertraline Allergy Mild NOSE BLEEDS Verified 06/02/21 14:14 terazosin Allergy Unknown DOES NOT Verified 06/02/21 14:14 KNOW Nitrate Analogues AdvReac Severe DROP IN BP Verified 06/02/21 14:14 Home Medications Medication Instructions Recorded Confirmed Type citalopram 20 mg tablet 20 mg FEEDING TUBE QAM 05/07/18 06/02/21 History food supplemt, lactose-reduced 2 can FEEDING TUBE QID 05/07/18 06/02/21 History (Nutritional Drink) latanoprost 0.005 % eye drops 1 drp OPB HS 01/30/19 06/02/21 History albuterol sulfate 2.5 mg INHALATION Q6H PRN #75 ml 11/01/20 06/02/21 Rx albuterol sulfate 90 mcg/actuation 2 puff INHALATION QID PRN 11/08/20 06/02/21 History aerosol inhaler brimonidine 0.2 % eye drops 1 drp OPB BID 11/08/20 06/02/21 History tramadol 50 mg tablet 50 mg FEEDING TUBE Q6H PRN 03/04/21 06/02/21 History acetaminophen 500 mg tablet 1,000 mg PO Q6H PRN 03/06/21 06/02/21 History (Tylenol Extra Strength) levothyroxine 88 mcg tablet 88 mcg FEEDING TUBE DAILY 04/06/21 06/02/21 History (Euthyrox) midodrine 5 mg tablet 5 mg FEEDING TUBE BID PRN 05/13/21 06/02/21 History nitroglycerin 0.4 mg sublingual 0.4 mg SUBLINGUAL UD PRN 05/13/21 06/02/21 History tablet aspirin 81 mg capsule 81 mg PO DAILY 06/02/21 06/02/21 History atorvastatin 40 mg tablet 40 mg PO DAILY 06/02/21 06/02/21 History Patient History Medical History Anxiety Aspiration pneumonia hx - CAN NOT TAKE FOOD/LIQUIDS ORALLY Asthma rare use of PRN inh Benign prostatic hyperplasia (Unknown) Blood pressure instability new issue for pt -- [facility] manages; currently using midodrine and nitro PRN hypo/hypertension; per , cardiac workup wnl aside from BP changes Chronic back pain COPD (chronic obstructive pulmonary disease) with emphysema Degenerative disc disease Depression Gastroparesis GERD (gastroesophageal reflux disease) Glaucoma Hypertension Hypothyroidism Osteoarthritis Tonsil carcinoma (Unknown) RADIATION AND CHEMO Uses feeding tube Surgical History (Updated 06/02/21 @ 19:37 by LIT Stallings) H/O esophagogastroduodenoscopy (Unknown) WITH PLACEMENT PEG TUBE History of anesthesia reaction SLOW TO WAKE UP History of neck surgery LUMPECTOMY History of tooth extraction S/P arthroscopic knee surgery (Unknown) RT S/P colonoscopy (Unknown) S/P percutaneous endoscopic gastrostomy (PEG) tube placement Family History Brother Family history of diabetes mellitus Social History Smoking Status: Former smoker Tobacco Type: Cigarettes Second Hand Exposure: No; Do You Dip or Chew Tobacco: No; Tobacco Cessation Education Requested by Patient: No Hx Alcohol Use: No Hx Substance Use: No Preferred Language: Occitan 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 Ability: Impaired Psychiatric Nursing Assistant Required: No Beliefs That Will Affect Care: None marital status: Current Living Situation: Spouse Other Information That Helps Us Care for You: No Feels Safe at Home: Yes Safety Concerns: Feels Safe At This Time Assistive Devices: None Review of Systems Review of Systems: ROS: Gen: + weakness, No fevers, No weight loss Eyes: No eye redness, or pain, no recent vision changes Resp: + SOB, + cough Cardio: No palpitations/irregular beats, no chest pain GI: No abdominal pain, no nausea/vomiting : Denies pain on urination Skin: No jaundice, itching or new rashes Physical Exam Constitutional: well developed, + ill appearing, + thin and cooperative Eyes: PERRL, conjunctivae normal, anicteric sclerae Cardiovascular: RRR, no murmur, no edema Gastrointestinal (Abdomen): normal bowel sounds, soft, nontender, no hepatosplenomegaly Peg tube insertion site with mildly red skin under the phalange but no discharge, no increased skin temp, no evidence of cellulitis or edematous skin. Skin: normal turgor; no jaundice Neurologic: PERRL, EOMI, accommodation nl, no face palsy, no dysarthria awake; not confused Psychiatric: A+Ox3, euthymic affect Orientation: alert, oriented x 3 and cooperative Results & Data ([facility]) Vital Signs (Past 12 Hours) Vital Signs Temp Pulse Pulse Resp BP Pulse Ox Pulse Ox 06/03/21 14:58 37.0 C 80 20 125/71 98 06/03/21 12:56 71 100/54 L 98 06/03/21 11:47 36.8 C 77 21 71/29 L 95 06/03/21 10:47 70 22 90 06/03/21 08:00 36.9 C 75 73 22 95/44 L 94 94 06/03/21 07:10 74 20 94 06/03/21 04:00 73 24 102/49 L 98 06/03/21 03:13 71 18 97 Laboratory Results WBC 17.5, Hb 12, Hct 36, Plts 134, Na 134, K 4.0, Cl 104, CO2 25, BUN 23, Cr 1.16, lactate 4.0. Diagnostic Findings KUB 1. PEG tube projects over the gastric body. 2. Nonobstructive bowel gas pattern. CXR: Bilateral lower lung predominant airspace opacities which may represent atelectasis, pneumonia, and/or aspiration.
[2021-06-03] MEDS: ENOXAPARIN INJ 40 MG/0.4 ML SYR SQ SCH (20:38)
[2021-06-03] MEDS: LATANOPROST 0.005% OP SOLN 2.5 ML BTL OPB SCH (20:40)
[2021-06-03] MEDS: ACETAMINOPHEN 325 MG TAB PEG PRN (20:53)
[2021-06-04] MEDS: ACETAMINOPHEN 325 MG TAB PEG PRN ×2 (00:37→07:35)
[2021-06-04] MEDS: ALBUT/IPRATROP 3MG/0.5MG NEB 3 ML VIAL NEB SCH ×6 (03:04→23:45)
[2021-06-04] MEDS: PIPERACILLIN/TAZOBACTAM 3.375 GM in DEXTROSE 5% 100 ML IV SCH ×3 (03:14→19:46)
[2021-06-04] MEDS: LEVOTHYROXINE SODIUM 88 MCG TABLET PEG SCH (05:46)
[2021-06-04] MEDS: ATORVASTATIN 40 MG TAB PEG SCH (07:36)
[2021-06-04] MEDS: CITALOPRAM 20 MG TAB PEG SCH (07:36)
[2021-06-04] MEDS: ASPIRIN 81 MG CHEW PEG SCH (07:36)
[2021-06-04] MEDS: BRIMONIDINE TARTRATE 0.2% 5ML OPB SCH ×2 (07:37→20:02)
[2021-06-04] MEDS ORDERED: ACETAMINOPHEN 1,000 MG/100 ML VIAL IV ONE (10:00)
[2021-06-04] MEDS: FIBERSOURCE HN 1.2 CAL 1000 ML BAG GT SCH ×4 (10:28→20:04)
[2021-06-04] MEDS: D5NSS + 20MEQ KCL 20 MEQ/1,000 ML BAG IV SCH (10:29)
--- NOTE | 2021-06-04 16:23 | 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 Note ---
Date of Service: June 04, 2021 Discussion with pt and his regarding possibly altering PEG to to P->jejunal tube - done during endoscopic procedure. Could be done as an OP, after recovery from the pneumonia. - Advantage: less likelihood of reflux aspiration. Disadvantage: need slower feedings, typically being attached to a feeding pump through the night. Pt would like time to consider. They will contact our office arrange appt if they decide that they would like to have the PEG changed to a PEGJ tube. Attg add: I interviewed and examined pt, discussed pros/and cons of PEG-J. Pt can pursue if desired as outpt. Please call with questions.
[2021-06-04] MEDS ORDERED: KETOROLAC TROMETHAMINE 15 MG/ML VIAL IV ONE (20:01)
[2021-06-04] MEDS: ENOXAPARIN INJ 40 MG/0.4 ML SYR SQ SCH (20:02)
[2021-06-04] MEDS: LATANOPROST 0.005% OP SOLN 2.5 ML BTL OPB SCH (20:02)
--- NOTE | 2021-06-04 22:01 | 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 Note ---
Date of Service: June 04, 2021 Patient with emesis episode without abdominal pain complaints as per RN. Patient still with persistent cough symptoms, intermittent fever despite ongoing Zosyn Rx for possible aspiration pneumonia AP Emesis Sepsis secondary to HCAP Hold tube feeds for now Add Vancomycin to Zosyn Will relay to AM provider.
--- NOTE | 2021-06-04 23:52 | Hospitalist Progress Note ---
Date of Service June 04, 2021 Assessment & Plan (1) Acute respiratory failure with hypoxia: (2) Aspiration pneumonia: (3) Sepsis: Plan: -Patient presenting from home with reports of worsening shortness of breath, wheezing, suspected aspiration -In the ED, patient saturating 88% on room air and was placed on BiPAP due to concerns of lethargy. -CXR shows bibasilar opacities. -Mildly tachycardic in the 90s, WBC 16 K, lactic acid 2.4 --> 5.1. -Received IV Zosyn in the ER -Follow blood cultures -Lactic acid elevated but trending down and elevated WBC 17K -Blood culture no growth -He was febrile this morning -Continue IV antibiotic with Zosyn -GI discussed with patient and that PEG tube can be possibly altering to P->jejunal tube - done during endoscopic procedure. -If decided , it could be done as an OP, after recovery from the pneumonia. 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 If decided , it could be done as an OP, after recovery from the pneumonia. (7) DVT prophylaxis: Plan: -SQ Lovenox Disposition Anticipate discharge to home when medically stable Admission and Anticipated Discharge Date Admission Date: June 02, 2021 Subjective Patient was seen and examined for follow-up of aspiration pneumonia Lying in bed with no acute distress with sitting at bedside Patient continued to have productive cough He was febrile this morning Currently saturating well on room air Denies any chest pain, palpitation, dizziness, shortness of breath. Review of Systems Review of Systems: All systems reviewed & are unremarkable except as noted in Subjective Physical Exam Physical Exam: General- No acute distress Head- atraumatic Eyes- PERRL, EOMI, ENT- oropharynx clear Neck- supple, no JVD Lungs- clear to auscultation Heart- regular rhythm; no murmur Abdomen- normal bowel sounds, soft, nontender, +Peg tube in place Extremities- no calf tenderness Neuro- alert, oriented x 3; PERRL, EOMI; no facial palsy; no dysarthria Skin- warm & dry Results & Data Results & Data ([facility]) Vital Signs (Past 12 Hours) Vital Signs Temp Pulse Pulse Resp BP Pulse Ox 06/04/21 19:37 38 C H 109 H 18 180/81 H 95 06/04/21 19:25 80 20 94 06/04/21 15:51 76 06/04/21 15:01 84 18 95 06/04/21 14:52 37.4 C 79 16 100/64 96
[2021-06-05] MEDS: ACETAMINOPHEN 325 MG TAB PEG PRN ×4 (02:11→23:53)
[2021-06-05] MEDS: PROMETHAZINE HCL 12.5 MG in SODIUM CHLORIDE 0.9% 50 ML IV PRN ×2 (02:55→18:51)
[2021-06-05] MEDS: ALBUT/IPRATROP 3MG/0.5MG NEB 3 ML VIAL NEB SCH ×6 (03:18→22:40)
[2021-06-05] MEDS ORDERED: VANCOMYCIN CONSULT ACTIVE PRN (03:34)
[2021-06-05] MEDS ORDERED: VANCOMYCIN HCL 1,500 MG in SODIUM CHLORIDE 0.9% 500 ML IV ONE (04:00)
[2021-06-05] MEDS: PIPERACILLIN/TAZOBACTAM 3.375 GM in DEXTROSE 5% 100 ML IV SCH ×3 (04:03→19:52)
[2021-06-05] MEDS: LEVOTHYROXINE SODIUM 88 MCG TABLET PEG SCH (06:07)
[2021-06-05 06:15] LABS: Creatinine Clr Calc Pharmacy 57.7 ml/min; Est GFR (African American) 81.2 ml/min; Est GFR (Non-African American) 70.1 ml/min
--- NOTE | 2021-06-05 07:26 | XRay Report ---
XR chest 1V portable HISTORY: 75 years-old Male wheeze acute wheezing with shortness of breath COMPARISON: Chest radiograph 06/02/2021 TECHNIQUE: Portable AP view of the chest FINDINGS: Cardiac mediastinal and hilar silhouettes are within normal limits. Patient is slightly rotated. Ther e is no pneumothorax, pleural effusion or overt pulmonary edema. Mild interstitial coarsening redemon strated. There is a new ill-defined airspace opacity of the left midlung. Degenerative changes of the shoulders and spine. IMPRESSION: There is a new ill-defined airspace opacity of the left midlung suspicious for pneumonia. ACT 112: Negative or not required by law. The above report was generated using voice recognition software. It may contain grammatical, syntax o r spelling errors. Electronically signed by: Yehuda Luna M.D. 06/05/2021 7:24 AM
[2021-06-05] MEDS: ASPIRIN 81 MG CHEW PEG SCH (08:57)
[2021-06-05] MEDS: ATORVASTATIN 40 MG TAB PEG SCH (08:58)
[2021-06-05] MEDS: BRIMONIDINE TARTRATE 0.2% 5ML OPB SCH ×2 (09:00→19:59)
[2021-06-05] MEDS: FIBERSOURCE HN 1.2 CAL 1000 ML BAG GT SCH ×2 (09:01→11:01)
[2021-06-05] MEDS: CITALOPRAM 20 MG TAB PEG SCH (10:53)
--- NOTE | 2021-06-05 12:28 | Pharmacy Report ---
Pharmacy Vanc AUC Short Note - Date of Service June 05, 2021 - Assessment & Plan Assessment 75 year old M receiving zosyn for concern of aspiration pneumonia. Persistent cough overnight, concerns for HAP - therefore vancomycin added this AM. Patient with recent PEG exchange, hx head/neck Ca tx with chemo/radiation, former smoker, hospitalized >48 hrs in last 90 days. Blood cultures negative, however nasal swab positive for MRSA Plan Vancomycin * AUC/NAJMA is the preferred PK/PD target for vancomycin * AUC guided dosing is effective and associated with decreased risk of nephrotoxicity compared to traditional trough targets * Patient given loading dose of vancomycin 1500 mg x 1 (~18 mg/kg) - weight updated in system. * Will start vancomycin 750 mg iv q 12 hr to achieve estimated trough ~16 mcg/ml and target AUC/NAJMA of 400-600 mg/L.hr and may be associated with a 11 % risk of nephrotoxicity * Plan to collect trough level if continued >48 hrs or sooner if renal function changes Pharmacy will continue to follow and will adjust dose/frequency as necessary. Thank you.
[2021-06-05] MEDS: VANCOMYCIN HCL 750 MG in SODIUM CHLORIDE 0.9% 250 ML IV SCH (13:49)
[2021-06-05] MEDS ORDERED: Nursing to Pharmacy 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 SCH (15:15)
[2021-06-05] MEDS: D5NSS + 20MEQ KCL 20 MEQ/1,000 ML BAG IV SCH ×2 (17:00)
--- NOTE | 2021-06-05 19:22 | XRay Report ---
KUB CLINICAL HISTORY: Abdominal distention. FINDINGS: 3 AP, portable, supine abdominal radiographs are compared to study dated 06/03/2021 and cor related with abdominal CT dated 12/14/2020. A gastrostomy tube projects over the upper abdomen. There is no bowel obstruction. No evidence of intraperitoneal free air is seen on these supine images. Ther e are no abnormal abdominal calcifications. The skeletal structures are osteopenic and appear intact. There is moderate lumbosacral spondylosis IMPRESSION: Nonobstructed abdominal bowel gas pattern. Electronically signed by: Landen Hopkins M.D. 06/05/2021 7:21 PM
[2021-06-05] MEDS: LATANOPROST 0.005% OP SOLN 2.5 ML BTL OPB SCH (19:58)
[2021-06-05] MEDS: ENOXAPARIN INJ 40 MG/0.4 ML SYR SQ SCH (20:04)
--- NOTE | 2021-06-06 00:14 | Hospitalist Progress Note ---
Date of Service June 05, 2021 Assessment & Plan (1) Acute respiratory failure with hypoxia: (2) Aspiration pneumonia: (3) Sepsis: Plan: -Patient presenting from home with reports of worsening shortness of breath, wheezing, suspected aspiration -In the ED, patient saturating 88% on room air and was placed on BiPAP due to concerns of lethargy. -CXR shows bibasilar opacities. -Mildly tachycardic in the 90s, WBC 16 K, lactic acid 2.4 --> 5.1. -Received IV Zosyn in the ER -Follow blood cultures -Lactic acid elevated but trending down and elevated WBC 17K -Blood culture no growth -He was febrile this morning -Continue IV antibiotic with Zosyn -GI discussed with patient and that PEG tube can be possibly altering to P->jejunal tube - done during endoscopic procedure. -If decided , it could be done as an OP, after recovery from the pneumonia. 06/05/21 CXR showed new ill-defined airspace opacity of the left midlung suspicious for pneumonia. Continue IV zosyn and vanco IV adding Will send for blood cx Continue neb treatment (4) Labile blood pressure: Plan: -BP has been fluctuate -Takes amlodipine daily and utilizes SL nitro as needed for high blood pressure and midodrine as needed for low blood pressure -Continue monitor BP (5) Tonsil carcinoma: (6) S/P percutaneous endoscopic gastrostomy (PEG) tube placement: Plan: -History of in 2010 -S/p radiation and resection and PEG tube placement PEG tube recently replaced May 07, 2021 GI consult No issues with PEG tube at this point Recommend strict aspiration precautions after tube feedings to prevent aspiration pneumonia We will need to educate patient and GI discussed with patient and that PEG tube can be possibly altering to P- >jejunal tube - done during endoscopic procedure. If decided , it could be done as an OP, after recovery from the pneumonia. Tube feeding on hold KUB today showed Nonobstructed abdominal bowel gas pattern. (7) DVT prophylaxis: Plan: -SQ Lovenox Disposition Anticipate discharge to home when medically stable Admission and Anticipated Discharge Date Admission Date: June 02, 2021 Subjective Patient was seen and examined for follow-up of aspiration pneumonia Lying in bed with no acute distress with sitting at bedside Continue to have fever last night Denies any chest pain, palpitation, dizziness, shortness of breath. Review of Systems Review of Systems: All systems reviewed & are unremarkable except as noted in Subjective Physical Exam Physical Exam: General- No acute distress Head- atraumatic Eyes- PERRL, EOMI, ENT- oropharynx clear Neck- supple, no JVD Lungs- +coarse breathsound Heart- regular rhythm; no murmur Abdomen- normal bowel sounds, soft, nontender, +Peg tube in place Extremities- no calf tenderness Neuro- alert, oriented x 3; PERRL, EOMI; no facial palsy; no dysarthria Skin- warm & dry Results & Data Results & Data ([facility]) Vital Signs (Past 12 Hours) Vital Signs Temp Pulse Pulse Resp BP Pulse Ox 06/05/21 23:23 97 H 06/05/21 22:40 97 H 16 90 06/05/21 19:54 37.7 C H 91 H 18 182/93 H 94 06/05/21 19:39 85 16 90 06/05/21 18:57 37.5 C 06/05/21 17:04 37.8 C H 06/05/21 15:40 84 16 96 06/05/21 15:28 37.5 C 75 18 103/50 L 99
[2021-06-06] MEDS: VANCOMYCIN HCL 750 MG in SODIUM CHLORIDE 0.9% 250 ML IV SCH (02:34)
[2021-06-06] MEDS: ALBUT/IPRATROP 3MG/0.5MG NEB 3 ML VIAL NEB SCH ×4 (02:52→15:06)
[2021-06-06] MEDS: PIPERACILLIN/TAZOBACTAM 3.375 GM in DEXTROSE 5% 100 ML IV SCH ×3 (04:01→20:12)
[2021-06-06] MEDS: D5NSS + 20MEQ KCL 20 MEQ/1,000 ML BAG IV SCH ×2 (05:52→17:35)
[2021-06-06] MEDS: LEVOTHYROXINE SODIUM 88 MCG TABLET PEG SCH (05:54)
[2021-06-06] MEDS: ACETAMINOPHEN 325 MG TAB PEG PRN ×2 (06:00→20:14)
[2021-06-06 07:33] LABS: Hematocrit (blood only) 38.8 % (42-52); Hemoglobin 13.3 g/dL (14.0-18.0); Mean Corpuscular Hemoglobin 33.3 pg (25-34); Mean Corpuscular Hgb Conc 34.3 g/dL (32-36); Mean Platelet Volume 11.1 fL (7.4-10.4); Platelet Count 143 K/uL (130-400); RDW Coefficient of Variation 13.1 % (11.5-14.5); RDW Standard Deviation 46.3 fL (36.4-46.3); White Blood Count 13.74 K/uL (4.8-10.8)
[2021-06-06 08:03] LABS: BUN Creatinine Ratio 16.8 (10-20); Calcium 8.4 mg/dl (8.5-10.1); Est GFR (African American) 100.2 ml/min; Est GFR (Non-African American) 86.4 ml/min; Potassium 3.2 mmol/L (3.5-5.1)
[2021-06-06] MEDS: CITALOPRAM 20 MG TAB PEG SCH (08:45)
[2021-06-06] MEDS: ATORVASTATIN 40 MG TAB PEG SCH (08:45)
[2021-06-06] MEDS: BRIMONIDINE TARTRATE 0.2% 5ML OPB SCH ×2 (08:46→20:14)
[2021-06-06] MEDS: ASPIRIN 81 MG CHEW PEG SCH (08:47)
[2021-06-06] MEDS ORDERED: POTASSIUM CHLORIDE PWD 20 MEQ PACK PO ONE (11:45)
[2021-06-06] MEDS: VANCOMYCIN HCL 1,000 MG in SODIUM CHLORIDE 0.9% 250 ML IV SCH (15:39)
[2021-06-06] MEDS ORDERED: METOCLOPRAMIDE HCL INJ 5 MG/ML 2 ML VIAL IV ONE (16:42)
[2021-06-06] MEDS: FIBERSOURCE HN 1.2 CAL 1000 ML BAG GT SCH ×2 (17:15→20:15)
[2021-06-06] MEDS: LATANOPROST 0.005% OP SOLN 2.5 ML BTL OPB SCH (20:11)
[2021-06-06] MEDS: ENOXAPARIN INJ 40 MG/0.4 ML SYR SQ SCH (20:15)
[2021-06-06] MEDS: ALBUT/IPRATROP 3MG/0.5MG NEB 3 ML VIAL NEB PRN (22:18)
--- NOTE | 2021-06-06 22:56 | Hospitalist Progress Note ---
Date of Service June 06, 2021 Assessment & Plan (1) Acute respiratory failure with hypoxia: (2) Aspiration pneumonia: (3) Sepsis: Plan: -Patient presenting from home with reports of worsening shortness of breath, wheezing, suspected aspiration -In the ED, patient saturating 88% on room air and was placed on BiPAP due to concerns of lethargy. -CXR shows bibasilar opacities. -Mildly tachycardic in the 90s, WBC 16 K, lactic acid 2.4 --> 5.1. -Received IV Zosyn in the ER -Follow blood cultures -Lactic acid elevated but trending down and elevated WBC 17K -Blood culture no growth -He was febrile this morning -Continue IV antibiotic with Zosyn -GI discussed with patient and that PEG tube can be possibly altering to P->jejunal tube - done during endoscopic procedure. -If decided , it could be done as an OP, after recovery from the pneumonia. 06/06/21 CXR showed new ill-defined airspace opacity of the left midlung suspicious for pneumonia. Continue IV Zosyn and Vanco Blood cx no growth Continue neb treatment Clinically improved (4) Labile blood pressure: Plan: -BP has been fluctuate -Takes amlodipine daily and utilizes SL nitro as needed for high blood pressure and midodrine as needed for low blood pressure -Continue monitor BP (5) Tonsil carcinoma: (6) S/P percutaneous endoscopic gastrostomy (PEG) tube placement: Plan: -History of in 2010 -S/p radiation and resection and PEG tube placement PEG tube recently replaced May 07, 2021 GI consult No issues with PEG tube at this point Recommend strict aspiration precautions after tube feedings to prevent aspiration pneumonia We will need to educate patient and GI discussed with patient and that PEG tube can be possibly altering to P- >jejunal tube - done during endoscopic procedure. If decided , it could be done as an OP, after recovery from the pneumonia. KUB today showed Nonobstructed abdominal bowel gas pattern. Tube feeding resumed (7) DVT prophylaxis: Plan: -SQ Lovenox Disposition Anticipate discharge to home when medically stable Admission and Anticipated Discharge Date Admission Date: June 02, 2021 Subjective Patient was seen and examined for follow-up of aspiration pneumonia Lying in bed with no acute distress with sitting at bedside He said that he feels fine and has been very anxious to go home Last fever was early in the morning Denies any chest pain, palpitation, dizziness, shortness of breath. Review of Systems Review of Systems: All systems reviewed & are unremarkable except as noted in Subjective Physical Exam Physical Exam: General- No acute distress Head- atraumatic Eyes- PERRL, EOMI, ENT- oropharynx clear Neck- supple, no JVD Lungs- +coarse breath sound Heart- regular rhythm; no murmur Abdomen- normal bowel sounds, soft, nontender, +Peg tube in place Extremities- no calf tenderness Neuro- alert, oriented x 3; PERRL, EOMI; no facial palsy; no dysarthria Skin- warm & dry Results & Data Results & Data ([facility]) Vital Signs (Past 12 Hours) Vital Signs Temp Pulse Pulse Resp BP BP Pulse Ox 06/06/21 22:18 74 18 93 06/06/21 21:00 37.6 C H 06/06/21 20:10 37.7 C H 88 18 168/86 H 97 06/06/21 18:10 90 06/06/21 15:35 36.9 C 86 18 139/81 94 06/06/21 13:01 94 H 06/06/21 11:30 37.6 C H 86 20 193/96 H 180/105 H 97
[2021-06-07] MEDS: VANCOMYCIN HCL 1,000 MG in SODIUM CHLORIDE 0.9% 250 ML IV SCH ×2 (01:29→15:03)
[2021-06-07] MEDS: PIPERACILLIN/TAZOBACTAM 3.375 GM in DEXTROSE 5% 100 ML IV SCH ×3 (04:04→20:03)
[2021-06-07] MEDS: LEVOTHYROXINE SODIUM 88 MCG TABLET PEG SCH (06:16)
[2021-06-07 07:21] LABS: Hemoglobin 13.4 g/dL (14.0-18.0); Mean Corpuscular Hemoglobin 33.3 pg (25-34); Mean Corpuscular Hgb Conc 34.4 g/dL (32-36); Mean Platelet Volume 10.8 fL (7.4-10.4); Platelet Count 170 K/uL (130-400); RDW Coefficient of Variation 13.1 % (11.5-14.5); RDW Standard Deviation 46.4 fL (36.4-46.3); Red Blood Count 4.02 M/uL (4.7-6.1); White Blood Count 10.01 K/uL (4.8-10.8)
[2021-06-07 07:42] LABS: BUN Creatinine Ratio 17.7 (10-20); Calcium 8.8 mg/dl (8.5-10.1); Creatinine Clr Calc Pharmacy 81.2 ml/min; Est GFR (African American) 98.3 ml/min; Est GFR (Non-African American) 84.8 ml/min; Potassium 3.4 mmol/L (3.5-5.1)
--- NOTE | 2021-06-07 08:08 | CT Scan Report ---
CT head/brain wo con CLINICAL HISTORY: marley, trauma Technique: Contiguous axial CT images of the head were acquired from the base of the skull to the morena cathy without intravenous contrast administration. Images were viewed in brain, subdural and [facility]. Automated dose lowering techniques and/or adjustment according to patient size were utilized for this exam. Comparison: Comparison is made to CT head 06/02/2021 Findings: Areas of decreased attenuation are present in the periventricular and subcortical white matter bilate rally consistent with small vessel ischemic disease. Generalized cerebral atrophy with commensurate e nlargement of the ventricles, sulci, and cisterns is also present. There is no acute intracranial hem orrhage or evidence of acute territorial infarction. No shift of the midline structures, mass effect, or extra-axial abnormalities are shown. Atherosclerotic calcifications are present in the intracran ial segments of the internal carotid arteries. Imaged portions of the paranasal sinuses and mastoid air cells are clear. The orbits appear normal. There are no acute fractures of the calvaria or scalp swelling. Impression: No acute intracranial hemorrhage, no evidence of acute territorial infarction or other acute intracra nial disease process. ACT 112: Negative or not required by law. Electronically signed by: Richi Graves M.D. 06/07/2021 8:06 AM
[2021-06-07] MEDS: BRIMONIDINE TARTRATE 0.2% 5ML OPB SCH ×2 (08:15→20:03)
[2021-06-07] MEDS: ATORVASTATIN 40 MG TAB PEG SCH (08:15)
[2021-06-07] MEDS: CITALOPRAM 20 MG TAB PEG SCH (08:16)
[2021-06-07] MEDS: ASPIRIN 81 MG CHEW PEG SCH (08:20)
[2021-06-07] MEDS ORDERED: POTASSIUM CHLORIDE PWD 20 MEQ PACK PO ONE (08:35)
[2021-06-07] MEDS: FIBERSOURCE HN 1.2 CAL 1000 ML BAG GT SCH ×4 (09:19→20:04)
[2021-06-07] MEDS: ACETAMINOPHEN 325 MG TAB PEG PRN (11:00)
[2021-06-07] MEDS: ALBUT/IPRATROP 3MG/0.5MG NEB 3 ML VIAL NEB PRN (11:25)
[2021-06-07] MEDS ORDERED: VANCOMYCIN TROUGH ONE (13:30)
--- NOTE | 2021-06-07 14:50 | Pharmacy Report ---
Pharmacy Abx Dose Short Note - Date of Service June 07, 2021 - Assessment & Plan Assessment 75 year old M receiving VANCOMYCIN + ZOSYN for treatment of Pneumonia (aspiration vs HAP) Day # 3 of antimicrobial therapy. Blood cultures negative to date Nasal MRSA swab + Plan Vancomycin * Trough level of 9.6 mcg/mL is subtherapeutic * Increase dose to 1250 mg IV every 12 hours * Goal trough level for pulm : 15 to 20 mcg/mL * Trough or random level ordered for: 06/09/21 @ 1330 Zosyn * Continue 3.375g IV Q 8hrs Pharmacy will continue to follow and will adjust dose/frequency as necessary. Thank you.
--- NOTE | 2021-06-07 19:35 | Hospitalist Progress Note ---
Date of Service June 07, 2021 Assessment & Plan (1) Acute respiratory failure with hypoxia: (2) Aspiration pneumonia: (3) Sepsis: Plan: -Patient presenting from home with reports of worsening shortness of breath, wheezing, suspected aspiration -In the ED, patient saturating 88% on room air and was placed on BiPAP due to concerns of lethargy. -CXR shows bibasilar opacities. -Mildly tachycardic in the 90s, WBC 16 K, lactic acid 2.4 --> 5.1. -Received IV Zosyn in the ER -Follow blood cultures -Lactic acid elevated but trending down and elevated WBC 17K -Blood culture no growth -He was febrile this morning -Continue IV antibiotic with Zosyn -GI discussed with patient and that PEG tube can be possibly altering to P->jejunal tube - done during endoscopic procedure. -If decided , it could be done as an OP, after recovery from the pneumonia. 06/07/21 CXR showed new ill-defined airspace opacity of the left midlung suspicious for pneumonia. Continue IV Zosyn and Vanco Febrile this morning Blood cx no growth Continue neb treatment Continue monitor closely (4) Labile blood pressure: Plan: -BP has been fluctuate -Takes amlodipine daily and utilizes SL nitro as needed for high blood pressure and midodrine as needed for low blood pressure -Continue monitor BP (5) Tonsil carcinoma: (6) S/P percutaneous endoscopic gastrostomy (PEG) tube placement: Plan: -History of in 2010 -S/p radiation and resection and PEG tube placement PEG tube recently replaced May 07, 2021 GI consult No issues with PEG tube at this point Recommend strict aspiration precautions after tube feedings to prevent aspiration pneumonia We will need to educate patient and GI discussed with patient and that PEG tube can be possibly altering to P- >jejunal tube - done during endoscopic procedure. If decided , it could be done as an OP, after recovery from the pneumonia. KUB today showed Nonobstructed abdominal bowel gas pattern. Tube feeding resumed (7) DVT prophylaxis: Plan: -SQ Lovenox Disposition Anticipate discharge to home when medically stable Admission and Anticipated Discharge Date Admission Date: June 02, 2021 Subjective Patient was seen and examined for follow-up of aspiration pneumonia Lying in bed with no acute distress with sitting at bedside Today's hemoglobin sleepy compared to yesterday or he was very anxious to go home This morning he spiked a fever Denies any chest pain, palpitation, dizziness, shortness of breath. Review of Systems Review of Systems: All systems reviewed & are unremarkable except as noted in Subjective Physical Exam Physical Exam: General- No acute distress Head- atraumatic Eyes- PERRL, EOMI, ENT- oropharynx clear Neck- supple, no JVD Lungs- +coarse breath sound Heart- regular rhythm; no murmur Abdomen- normal bowel sounds, soft, nontender, +Peg tube in place Extremities- no calf tenderness Neuro- alert, oriented x 3; PERRL, EOMI; no facial palsy; no dysarthria Skin- warm & dry Results & Data Results & Data ([facility]) Vital Signs (Past 12 Hours) Vital Signs Temp Pulse Pulse Resp BP BP Pulse Ox 06/07/21 16:00 67 06/07/21 15:00 37.3 C 70 20 111/64 96 06/07/21 11:11 37.3 C 78 86/50 L 105/65 92 06/07/21 08:00 94 H
[2021-06-07] MEDS: LATANOPROST 0.005% OP SOLN 2.5 ML BTL OPB SCH (20:03)
[2021-06-07] MEDS: ENOXAPARIN INJ 40 MG/0.4 ML SYR SQ SCH (20:04)
[2021-06-08] MEDS: ACETAMINOPHEN 325 MG TAB PEG PRN ×3 (00:08→20:16)
[2021-06-08] MEDS: VANCOMYCIN HCL 1,250 MG in SODIUM CHLORIDE 0.9% 250 ML IV SCH ×2 (02:04→14:01)
[2021-06-08] MEDS: PIPERACILLIN/TAZOBACTAM 3.375 GM in DEXTROSE 5% 100 ML IV SCH ×3 (03:38→20:17)
[2021-06-08] MEDS: LEVOTHYROXINE SODIUM 88 MCG TABLET PEG SCH (05:29)
[2021-06-08] MEDS: ALBUT/IPRATROP 3MG/0.5MG NEB 3 ML VIAL NEB PRN (08:25)
[2021-06-08] MEDS: ASPIRIN 81 MG CHEW PEG SCH (08:42)
[2021-06-08] MEDS: CITALOPRAM 20 MG TAB PEG SCH (08:43)
[2021-06-08] MEDS: ATORVASTATIN 40 MG TAB PEG SCH (08:43)
[2021-06-08] MEDS: BRIMONIDINE TARTRATE 0.2% 5ML OPB SCH ×2 (08:44→20:17)
[2021-06-08] MEDS: FIBERSOURCE HN 1.2 CAL 1000 ML BAG GT SCH ×4 (10:23→20:24)
[2021-06-08 12:07] LABS: BUN Creatinine Ratio 19.8 (10-20); Calcium 8.6 mg/dl (8.5-10.1); Creatinine Clr Calc Pharmacy 77.3 ml/min; Est GFR (African American) 92.9 ml/min; Est GFR (Non-African American) 80.1 ml/min; Potassium 3.8 mmol/L (3.5-5.1)
[2021-06-08] MEDS: LATANOPROST 0.005% OP SOLN 2.5 ML BTL OPB SCH (20:17)
[2021-06-08] MEDS: ENOXAPARIN INJ 40 MG/0.4 ML SYR SQ SCH (20:24)
--- NOTE | 2021-06-08 23:50 | Hospitalist Progress Note ---
Date of Service June 08, 2021 Assessment & Plan (1) Acute respiratory failure with hypoxia: (2) Aspiration pneumonia: (3) Sepsis: Plan: -Patient presenting from home with reports of worsening shortness of breath, wheezing, suspected aspiration -In the ED, patient saturating 88% on room air and was placed on BiPAP due to concerns of lethargy. -CXR shows bibasilar opacities. -Mildly tachycardic in the 90s, WBC 16 K, lactic acid 2.4 --> 5.1. -Received IV Zosyn in the ER -Follow blood cultures -Lactic acid elevated but trending down and elevated WBC 17K -Blood culture no growth -He was febrile this morning -Continue IV antibiotic with Zosyn -GI discussed with patient and that PEG tube can be possibly altering to P->jejunal tube - done during endoscopic procedure. -If decided , it could be done as an OP, after recovery from the pneumonia. 06/08/21 CXR showed new ill-defined airspace opacity of the left midlung suspicious for pneumonia. Continue IV Zosyn and Vanco Has been afebrile since this morning Blood cx no growth Continue neb treatment Continue monitor closely (4) Labile blood pressure: Plan: -BP has been fluctuate -Takes amlodipine daily and utilizes SL nitro as needed for high blood pressure and midodrine as needed for low blood pressure -Continue monitor BP (5) Tonsil carcinoma: (6) S/P percutaneous endoscopic gastrostomy (PEG) tube placement: Plan: -History of in 2010 -S/p radiation and resection and PEG tube placement PEG tube recently replaced May 07, 2021 GI consult No issues with PEG tube at this point Recommend strict aspiration precautions after tube feedings to prevent aspiration pneumonia We will need to educate patient and GI discussed with patient and that PEG tube can be possibly altering to P- >jejunal tube - done during endoscopic procedure. If decided , it could be done as an OP, after recovery from the pneumonia. KUB today showed Nonobstructed abdominal bowel gas pattern. Tube feeding resumed (7) DVT prophylaxis: Plan: -SQ Lovenox Disposition Anticipate discharge to home when medically stable Admission and Anticipated Discharge Date Admission Date: June 02, 2021 Subjective Patient was seen and examined for follow-up of aspiration pneumonia Lying in bed with no acute distress with sitting at bedside He is feeling much better today and is looking forward to be discharged tomorrow Denies any chest pain, palpitation, dizziness, shortness of breath. Review of Systems Review of Systems: All systems reviewed & are unremarkable except as noted in Subjective Physical Exam Physical Exam: General- No acute distress Head- atraumatic Eyes- PERRL, EOMI, ENT- oropharynx clear Neck- supple, no JVD Lungs- +coarse breath sound Heart- regular rhythm; no murmur Abdomen- normal bowel sounds, soft, nontender, +Peg tube in place Extremities- no calf tenderness Neuro- alert, oriented x 3; PERRL, EOMI; no facial palsy; no dysarthria Skin- warm & dry Results & Data Results & Data ([facility]) Vital Signs (Past 12 Hours) Vital Signs Temp Pulse Pulse Resp BP Pulse Ox 06/08/21 22:40 37.4 C 65 18 100/64 96 06/08/21 19:39 37.7 C H 87 22 141/80 H 94 06/08/21 17:55 72 06/08/21 15:42 37.5 C 73 19 96
[2021-06-09] MEDS: VANCOMYCIN HCL 1,250 MG in SODIUM CHLORIDE 0.9% 250 ML IV SCH ×2 (02:32→14:39)
[2021-06-09] MEDS: PIPERACILLIN/TAZOBACTAM 3.375 GM in DEXTROSE 5% 100 ML IV SCH ×2 (04:04→11:56)
[2021-06-09] MEDS: LEVOTHYROXINE SODIUM 88 MCG TABLET PEG SCH (06:20)
[2021-06-09] MEDS: FIBERSOURCE HN 1.2 CAL 1000 ML BAG GT SCH ×3 (08:47→14:39)
[2021-06-09] MEDS: BRIMONIDINE TARTRATE 0.2% 5ML OPB SCH (08:48)
[2021-06-09] MEDS: ATORVASTATIN 40 MG TAB PEG SCH (08:49)
[2021-06-09] MEDS: CITALOPRAM 20 MG TAB PEG SCH (08:50)
[2021-06-09] MEDS: ASPIRIN 81 MG CHEW PEG SCH (08:50)
[2021-06-09] MEDS ORDERED: VANCOMYCIN TROUGH ONE (13:30)
[2021-06-09 14:05] LABS: Creatinine Clr Calc Pharmacy 79.4 ml/min; Est GFR (African American) 96.6 ml/min; Est GFR (Non-African American) 83.3 ml/min
--- NOTE | 2021-06-09 14:16 | Pharmacy Report ---
Pharmacy Vanc AUC Short Note - Date of Service June 09, 2021 - Assessment & Plan Assessment 75 year old M receiving VANCOMYCIN + ZOSYN for treatment of Pneumonia (aspiration vs HAP) Day # 5 of vancomycin Blood cultures negative to date Nasal MRSA swab + Plan Vancomycin * AUC/NAJMA is the preferred PK/PD target for vancomycin * AUC guided dosing is effective and associated with decreased risk of nephrotoxicity compared to traditional trough targets * Trough level came back today at ~16 mcg/ml - this is predicted to achieve target AUC/NAJMA of 400-600 * Plan to continue vancomycin 1250 mg iv q 12 hr for now Pharmacy will continue to follow and will adjust dose/frequency as necessary. Thank you.
--- NOTE | 2021-06-09 15:44 | Hospitalist Progress Note ---
Date of Service June 09, 2021 Assessment & Plan (1) Acute respiratory failure with hypoxia: (2) Aspiration pneumonia: (3) Sepsis: Plan: -Patient presenting from home with reports of worsening shortness of breath, wheezing, suspected aspiration -In the ED, patient saturating 88% on room air and was placed on BiPAP due to concerns of lethargy. -CXR shows bibasilar opacities. -Mildly tachycardic in the 90s, WBC 16 K, lactic acid 2.4 --> 5.1. -Received IV Zosyn in the ER -Follow blood cultures -Lactic acid elevated but trending down and elevated WBC 17K -Blood culture no growth -He was febrile this morning -Continue IV antibiotic with Zosyn -GI discussed with patient and that PEG tube can be possibly altering to P->jejunal tube - done during endoscopic procedure. -If decided , it could be done as an OP, after recovery from the pneumonia. 06/09/21 CXR showed new ill-defined airspace opacity of the left midlung suspicious for pneumonia. On day # 7 Zosyn and Vanco, will transition to PO Augmentin for 3 days since pt had a Temp 36.7 He does not want to stay in the hospital and ready to walk out Blood cx no growth Continue neb treatment Continue monitor closely (4) Labile blood pressure: Plan: -BP has been fluctuate -Takes amlodipine daily and utilizes SL nitro as needed for high blood pressure and midodrine as needed for low blood pressure -Continue monitor BP (5) Tonsil carcinoma: (6) S/P percutaneous endoscopic gastrostomy (PEG) tube placement: Plan: -History of in 2010 -S/p radiation and resection and PEG tube placement PEG tube recently replaced May 07, 2021 GI consult No issues with PEG tube at this point Recommend strict aspiration precautions after tube feedings to prevent aspiration pneumonia We will need to educate patient and GI discussed with patient and that PEG tube can be possibly altering to P- >jejunal tube - done during endoscopic procedure. If decided , it could be done as an OP, after recovery from the pneumonia. KUB today showed Nonobstructed abdominal bowel gas pattern. Tube feeding resumed (7) DVT prophylaxis: Plan: -SQ Lovenox Disposition Will discharge home today Admission and Anticipated Discharge Date Admission Date: June 02, 2021 Subjective Patient was seen and examined for follow-up of aspiration pneumonia Sitting at the edge of the bed with no acute distress with sitting at bedside He is looking much better today He is very anxious and does not want to stay tonight in the hospital joked about that he would have to stay and he was ready to walk out Tmax in the last 24hrs was 36.7 one times this morning Denies any chest pain, palpitation, dizziness, shortness of breath. Review of Systems Review of Systems: All systems reviewed & are unremarkable except as noted in Subjective Physical Exam Physical Exam: General- No acute distress Head- atraumatic Eyes- PERRL, EOMI, ENT- oropharynx clear Neck- supple, no JVD Lungs- +no wheezing or crackles Heart- regular rhythm; no murmur Abdomen- normal bowel sounds, soft, nontender, +Peg tube in place Extremities- no calf tenderness Neuro- alert, oriented x 3; PERRL, EOMI; no facial palsy; no dysarthria Skin- warm & dry Results & Data Results & Data ([facility]) Vital Signs (Past 12 Hours) Vital Signs Temp Pulse Pulse Resp BP BP Pulse Ox 06/09/21 15:13 76 06/09/21 11:56 37.2 C 76 18 125/68 95 06/09/21 08:54 37.7 C H 74 18 142/71 H 94 06/09/21 07:49 83 06/09/21 03:46 37.3 C 76 19 113/80 95
--- NOTE | 2021-06-09 16:07 | Discharge Summary ---
Date of Service June 09, 2021 Admission HPI Per Admitting Provider 75-year-old male with PMH head and neck cancer s/p resection and radiation in 2010, s/p PEG tube, labile hypertension, COPD, hypothyroidism, and other problems listed below who presents to the ED for evaluation of shortness of breath. is at the bedside who provides some history. Wifereports that last evening, when patient went to bed he felt like he was regurgitating some of his tube feeds and it may have went into his lungs. Patient has had a PEG tube for the past 10 years and reports that he never lies down less than 2 hours after feeding and also always sleeps up on 4 pillows. Last night, when patient went to bed he had only used one pillow. Overnight, patient had worsening shortness of breath and wheezing. was also concerned about lethargy. She called EMS and patient was brought to the ED for further evaluation. reports the patient has been doing well recently. No reports of chest pain. Denies lightheadedness, dizziness, diaphoresis, syncopal events. No abdominal pain, nausea, vomiting, diarrhea. No urinary symptoms. In the ED, patient was saturating 88% on room air and was placed on BiPAP. CXR shows bibasilar opacities. Patient was mildly tachycardic with heart rate in the 90s, WBC 16 K, initial lactate 2.4. Patient was given nebulizer treatment, IV magnesium, IV Solu-Medrol 60 mg, IV Zosyn, IVF. Discharge Exam General- No acute distress Head- atraumatic Eyes- PERRL, EOMI, ENT- oropharynx clear Neck- supple, no JVD Lungs- +no wheezing or crackles Heart- regular rhythm; no murmur Abdomen- normal bowel sounds, soft, nontender, +Peg tube in place Extremities- no calf tenderness Neuro- alert, oriented x 3; PERRL, EOMI; no facial palsy; no dysarthria Skin- warm & dry Discharge Data Allergies Allergy/AdvReac Type Severity Reaction Status Date / Time sulfamethoxazole Allergy Intermediate ITCHING Verified 06/02/21 14:14 trimethoprim Allergy Intermediate ITCHING Verified 06/02/21 14:14 levofloxacin Allergy Mild rash all Verified 06/02/21 14:14 over body sertraline Allergy Mild NOSE BLEEDS Verified 06/02/21 14:14 terazosin Allergy Unknown DOES NOT Verified 06/02/21 14:14 KNOW Nitrate Analogues AdvReac Severe DROP IN BP Verified 06/02/21 14:14 Consultations 06/02/21 15:08 ED Decision to Admit Stat 06/03/21 08:46 Consult Gastroenterology Routine Ordered Studies 06/02/21 16:04 CT head/brain wo con Stat 06/07/21 05:32 CT head/brain wo con Urgent Hospital Course (1) Acute respiratory failure with hypoxia: (2) Aspiration pneumonia: (3) Sepsis: -Patient presenting from home with reports of worsening shortness of breath, wheezing, suspected aspiration -In the ED, patient saturating 88% on room air and was placed on BiPAP due to concerns of lethargy. -CXR shows bibasilar opacities. -Mildly tachycardic in the 90s, WBC 16 K, lactic acid 2.4 --> 5.1. -Received IV Zosyn in the ER -Follow blood cultures -Lactic acid elevated but trending down and elevated WBC 17K -Blood culture no growth -He was febrile this morning -Continue IV antibiotic with Zosyn -GI discussed with patient and that PEG tube can be possibly altering to P->jejunal tube - done during endoscopic procedure. -If decided , it could be done as an OP, after recovery from the pneumonia. 06/09/21 CXR showed new ill-defined airspace opacity of the left midlung suspicious for pneumonia. On day # 7 Zosyn and Vanco, will transition to PO Augmentin for 3 days since pt had a Temp 36.7 He does not want to stay in the hospital and ready to walk out Blood cx no growth Continue neb treatment Continue monitor closely (4) Labile blood pressure: -BP has been fluctuate -Takes amlodipine daily and utilizes SL nitro as needed for high blood pressure and midodrine as needed for low blood pressure -Continue monitor BP (5) Tonsil carcinoma: (6) S/P percutaneous endoscopic gastrostomy (PEG) tube placement: -History of in 2010 -S/p radiation and resection and PEG tube placement PEG tube recently replaced May 07, 2021 GI consult No issues with PEG tube at this point Recommend strict aspiration precautions after tube feedings to prevent aspiration pneumonia We will need to educate patient and GI discussed with patient and that PEG tube can be possibly altering to P- >jejunal tube - done during endoscopic procedure. If decided , it could be done as an OP, after recovery from the pneumonia. KUB today showed Nonobstructed abdominal bowel gas pattern. Tube feeding resumed (7) DVT prophylaxis: -SQ Lovenox Disposition Will discharge home today Discharge Plan Discharge Items Patient Disposition: Home - Self-Care Reason For Visit: RESP FAILURE; PNEUMONIA Discharge Diagnosis: (1) Acute respiratory failure with hypoxia: (2) Aspiration pneumonia: (3) Tonsil carcinoma: Activity: Resume your previous activity Non-emergency contact: Primary Care Provider and Technical Sales Associate Call non-emergency contact if: you have any medication questions, your symptoms worsen and your temperature is above 101 Follow-up/Referrals: Sanjiv Hart MD [Primary Care Provider] - (Date & Time 06/13/2021 11:20 AM Provider Shu Coffey, Department [facility] ) Diet: Nothing by Mouth and Other - See Diet Comment Addtl Attending Provider Instructions: Follow up with your primary care provider Dr. Coffey on 06/13/2021 @ 11:20 AM at the [facility] Follow up with your gastroenterology Continue Peg tube feeding Continue aspiration precaution and keep your head elevates when lying in your back or sleeping Seek medical attention if you develop any Shortness of breath, oxygen level below 92 or high grade fever fall precaution Pending Studies at Discharge: No Stand-Alone Forms: [facility], Smoking Cessation Medications and DC Order Prescriptions: New amoxicillin-pot clavulanate [Augmentin] 875-125 mg tablet 1 tab PO BID Qty: 6 RF: 0 guaifenesin 200 mg tablet 200 mg PO TID PRN (Reason: congestion) Qty: 15 RF: 0 Continued latanoprost 0.005 % Drops 1 drp OPB HS RF: 0 citalopram 20 mg tablet 20 mg Feeding Tube QAM RF: 0 Nutritional Drink Liquid 2 can Feeding Tube QID RF: 0 brimonidine 0.2 % drops 1 drp OPB BID RF: 0 albuterol sulfate 90 mcg/actuation HFA aerosol inhaler 2 puff INHALATION QID PRN (Reason: Shortness Of Breath) RF: 0 acetaminophen [Tylenol Extra Strength] 500 mg Tablet 1,000 mg PO Q6H PRN (Reason: Pain) RF: 0 levothyroxine [Euthyrox] 88 mcg tablet 88 mcg feeding tube DAILY RF: 0 atorvastatin 40 mg tablet 40 mg PO DAILY RF: 0 aspirin 81 mg Capsule 81 mg PO DAILY RF: 0 albuterol sulfate 2.5 mg /3 mL (0.083 %) solution for nebulization 2.5 mg inhalation Q6H PRN (Reason: bronchospasm) Qty: 75 RF: 0 tramadol 50 mg tablet 50 mg feeding tube Q6H PRN (Reason: Pain) RF: 0 midodrine 5 mg Tablet 5 mg feeding tube BID PRN (Reason: Hypotension) RF: 0 nitroglycerin 0.4 mg Tablet, Sublingual 0.4 mg sublingual UD PRN (Reason: ud) RF: 0 Discharge Orders: Discharge Order (Routine); Ordered 06/09/21 Ordered By: Sol Duvall Admission Data Admit Date/Time: 06/02/21 15:27 Attending Provider: Sol Duvall Admit Provider: Remigio Rico Primary Care Provider: Sanjiv Hart Other Providers: Remigio Rico ; Kike Boyle
== END 2021-06-09 16:26 | disposition home or self-care (01) | DRG 871 ==
LOC: ED 12:00 → EDINP 15:27 → SUATTDRO 15:27 → 2S 17:28

== ENCOUNTER 2022-03-28 10:15 | Inpatient (IN) ==
[2022-03-28] MEDS ORDERED: ACETAMINOPHEN 1,000 MG/100 ML VIAL IV STA (10:25)
[2022-03-28] MEDS ORDERED: SODIUM CHLORIDE 0.9% 1000ML 1,000 ML IV STA (10:25)
[2022-03-28 10:43] LABS: iSTAT Creatinine 1.2 mg/dl (0.6-1.3); iSTAT Hemoglobin 13.3 g/dl (14.0-18.0); iSTAT Ionized Calcium 1.23 mmol/l (1.12-1.32); iSTAT Potassium 3.6 mmol/L (3.3-5.0)
--- NOTE | 2022-03-28 10:57 | XRay Report ---
XR chest 1V portable CLINICAL HISTORY: Fever. COMPARISON STUDY: Chest CT June 14, 2021. Chest radiograph March 27, 2022. FINDINGS: Lung volumes are mildly diminished. There is no pneumothorax or pleural effusion. Subtle in terstitial thickening is likely chronic. Cardiomediastinal silhouette is stable. Subtle right midlung hazy density has developed since prior chest radiograph. IMPRESSION: Subtle right midlung hazy density which has developed since prior exam. Although this co uld be artifactual, pneumonia is favored. ACT 112: Negative or not required by law. Electronically signed by: Mike Sosa M.D. 03/28/2022 10:55 AM
[2022-03-28 10:58] LABS: Albumin Globulin Ratio 1.2 (0.9-2); Albumin Level 3.2 gm/dl (3.4-5.0); BUN Creatinine Ratio 19.1 (10-20); Bilirubin,Total 1.2 mg/dl (0.2-1.0); Calcium 8.3 mg/dl (8.5-10.1); Est GFR (African American) 72.3 ml/min; Est GFR (Non-African American) 62.3 ml/min; Globulin 2.7 gm/dl (2.5-4.0); Potassium 3.7 mmol/L (3.5-5.1); Total Protein 5.9 gm/dl (6.0-8.3)
[2022-03-28] MEDS ORDERED: PIPERACILLIN/TAZOBACTAM 4.5 GM/120 ML BAG IV ONE (11:02)
[2022-03-28 11:03] LABS: Troponin I High Sensitivity 24.5 pg/ml (0-20)
[2022-03-28] MEDS ORDERED: SODIUM CHLORIDE 0.9% 1000ML 1,000 ML IV ONE (11:03)
[2022-03-28 11:21] LABS: Basophils # (auto) 0.01 K/uL (0-0.2); Basophils % (auto) 0.1 %; Hematocrit (blood only) 39.2 % (40.1-51.0); Immature Granulocytes # (auto) 0.39 K/uL (0.00-0.02); Immature Granulocytes % (auto) 3.5 %; Lymphocytes # (auto) 0.36 K/uL (1.2-3.4); Lymphocytes % (auto) 3.2 %; Mean Corpuscular Hemoglobin 33.2 pg (25.0-34.0); Mean Corpuscular Hgb Conc 33.2 g/dL (32.0-36.0); Mean Corpuscular Volume 100.3 fL (80.0-100.0); Mean Platelet Volume 11.5 fL (9.4-12.4); Monocytes # (auto) 0.72 K/uL (0.24-0.82); Monocytes % (auto) 6.4 %; Neutrophils # (auto) 9.82 K/uL (1.4-6.5); Neutrophils % (auto) 86.8 %; Platelet Count 98 K/uL (130-400); Platelet Estimate Decreased (Normal); RDW Coefficient of Variation 13.2 % (11.5-14.5); RDW Standard Deviation 48.5 fL (36.4-46.3); Red Blood Count 3.91 M/uL (4.63-6.08)
[2022-03-28] MEDS ORDERED: ACETAMINOPHEN 325 MG TAB PO PRN (12:27)
[2022-03-28] MEDS ORDERED: POLYETHYLENE (MIRALAX) 17 GM PACK PO PRN (12:27)
[2022-03-28] MEDS ORDERED: MAGNESIUM HYDROXIDE SUSP 30 ML UDC PO PRN (12:27)
[2022-03-28] MEDS ORDERED: ONDANSETRON INJ 2 MG/ML 2 ML VIAL IV PRN (12:27)
[2022-03-28] MEDS ORDERED: ALUMINUM/MAGNESIUM SUSP 30 ML UDC PO PRN (12:27)
--- NOTE | 2022-03-28 12:28 | History & Physical Report ---
Date of Service March 28, 2022 Assessment & Plan (1) Aspiration pneumonia: Plan Severe sepsis Likely aspiration pneumonia Patient came in with worsening cough/chills on the background of vomiting milk taken via PEG tube raising the suspicion of aspiration pneumonia. Temperature and respiratory rate elevated along with lactate elevation at presentation. WBC and Pro-Palmer elevated. CXR with right middle lobe pneumonia. Patient received Zosyn and IV fluid in the ED, continue with IV fluid and Unasyn. Aspiration precaution, speech eval. Dietitian consult for PEG tube nutrition. Monitor and replete electrolytes, trend lactate until normal. Tylenol prn. Mild troponin elevation: Likely secondary to sepsis, trend troponin, patient with no chest pain. Will order EKG. Alcohol use: watch out for withdrawal, drink 2 beers a day via peg tube. Other chronic medical conditions: Medications reviewed with patient's at bedside, resume home meds as and when able. Patient on midodrine. DVT prophylaxis: Lovenox Full code History of Present Illness Chief Complaint: Weakness/cough/chills Primary Care Provider: Sanjiv Hart MD 76-year-old man with PMH of malignant neoplasm of tonsil status post radical dissection of right side of neck/radiation to head and neck region/PEG tube placement [all entereal input through PEG tube only, no p.o. intake], alcohol use [2 beers per day via PEG tube], GERD with esophagitis, gastroparesis, COPD, HLD, hypothyroidism, HTN, esophageal stenosis presented to our ED 03/28 due to worsening cough/chills/weakness. Patient is able to respond but mostly nonverbal or non comprehensible when verbal. Hence most history taken/confirmed with patient's at bedside and also taken from chart review. Patient was here in the ED night for being sick in his stomach/dizzy and low blood pressure [patient does have labile blood pressure, on midodrine] when he was discharged. Yesterday his blood pressure again went low 60/54, oxygen saturation dropped to 91% on room air [patient does not use oxygen at home], and had chills but no temperature. Today morning when he woke up, he felt weak and fell while getting out of bed on his knees, did not hit head or lose consciousness, his saturation was 77% and pulse was 110 when the EMS arrived. Also he has been having cough since last 2 to 3 days, patient's reports that he vomited the milk which could have led to aspiration. He takes everything via PEG tube. Patient is hard of hearing and mostly noncompensable. Patient denied any pain or discomfort with nodding. Denies pain in the head or knees. Per patient's , patient is cancer free for 10 years. No personal history of blood clot. Mother with cancer of eye, 2 nephew with throat cancer and a sister with ovarian cancer. Patient quit smoking 40 years ago, drinks 2 beer every day via PEG tube, no history of recreational drug use or marijuana use. Full code. Allergies Allergy/AdvReac Type Severity Reaction Status Date / Time levofloxacin Allergy Intermediate rash all Verified 01/20/22 23:48 over body sulfamethoxazole Allergy Intermediate ITCHING Verified 01/20/22 23:48 trimethoprim Allergy Intermediate ITCHING Verified 01/20/22 23:48 sertraline Allergy Mild NOSE BLEEDS Verified 01/20/22 23:48 terazosin Allergy Unknown DOES NOT Verified 01/20/22 23:48 KNOW Nitrate Analogues AdvReac Severe DROP IN BP Verified 01/20/22 23:48 Home Medications Medication Instructions Recorded Confirmed Type citalopram 20 mg tablet 20 mg feeding tube QAM 05/07/18 03/28/22 History food supplemt, lactose-reduced 2 can feeding tube QID 05/07/18 03/28/22 History (Nutritional Drink oral liquid) latanoprost 0.005 % eye drops 1 drp OPB HS 01/30/19 03/28/22 History albuterol sulfate 90 mcg/actuation 2 puff inhalation QID PRN 11/08/20 03/28/22 History aerosol inhaler Shortness Of Breath brimonidine 0.2 % eye drops 1 drp OPB BID 11/08/20 03/28/22 History acetaminophen 500 mg tablet 1,000 mg PO Q6H PRN Pain 03/06/21 03/28/22 History (Tylenol Extra Strength) levothyroxine 88 mcg tablet 88 mcg feeding tube QAM 04/06/21 03/28/22 History (Euthyrox) midodrine 5 mg tablet 10 mg feeding tube TID PRN 05/13/21 03/28/22 History Hypotension atorvastatin 40 mg tablet 40 mg feeding tube HS 06/02/21 03/28/22 History Past Med/Surg History Medical History Anxiety Aspiration pneumonia hx - CAN NOT TAKE FOOD/LIQUIDS ORALLY Asthma rare use of PRN inh Benign prostatic hyperplasia (Unknown) Blood pressure instability new issue for pt -- [facility] Cardiology manages; currently using midodrine, and nitro PRN hypo/hypertension; per , cardiac workup wnl aside from BP changes Chronic back pain COPD (chronic obstructive pulmonary disease) with emphysema Degenerative disc disease Depression Gastroparesis GERD (gastroesophageal reflux disease) Glaucoma History of COVID-19 05/2021 treated for pneumonia at [facility] Hypertension Hypothyroidism Osteoarthritis 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 Uses feeding tube Surgical History H/O esophagogastroduodenoscopy (Unknown) WITH PLACEMENT PEG TUBE History of anesthesia reaction SLOW TO WAKE UP History of neck surgery LUMPECTOMY History of radical neck dissection History of tooth extraction S/P arthroscopic knee surgery (Unknown) RT S/P colonoscopy (Unknown) Family History Brother Family history of diabetes mellitus Social History Smoking Status: Former smoker Tobacco Type: Cigarettes Second Hand Exposure: Yes (hx); Hx Alcohol Use: Yes Alcohol type: beer Hx Substance Use: No Preferred Language: Burmese 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 Ability: Impaired Regional Sales Director Required: No Beliefs That Will Affect Care: None marital status: Current Living Situation: Spouse Feels Safe at Home: Yes Assistive Devices: Walker Review of Systems Review of Systems: Negative otherwise mentioned in HPI. Physical Exam Physical Exam: GENERAL: Alert and oriented x3. NAD, on 4L NC O2. [place]. HEENT: No pallor, no icterus. Pupils equal, round and reactive to light. Oral mucosa moist. NECK: No JVD, no neck masses. HEART: S1 and S2 heard. Regular rate and rhythm. No murmur, no gallop. RESPIRATORY SYSTEM: Normal AP diameter. No accessory muscle use. No wheezing, + RML crackles. ABDOMEN: Soft, bowel sounds present, nontender, no distention. PEG tube w/o s/s of infection at port of entry. CENTRAL NERVOUS SYSTEM: No facial droop. Speech is clear. Obeys simple commands. Moves extremities. EXTREMITIES: No edema, no erythema seen. Results & Data Results & Data ([facility]) Vital Signs (Past 12 Hours) Vital Signs Temp Pulse Pulse Resp BP BP Pulse Ox 03/28/22 11:00 72 26 H 96 03/28/22 11:00 107/52 L 03/28/22 10:45 80 28 H 03/28/22 10:30 115/55 L 03/28/22 10:25 85 32 H 95 03/28/22 10:30 97 03/28/22 10:50 80 26 H 115/55 L 97 03/28/22 10:33 39.8 C H 82 29 H 149/63 H 91 O2 Del Method O2 Flow Rate 03/28/22 11:00 03/28/22 11:00 03/28/22 10:45 03/28/22 10:30 03/28/22 10:25 03/28/22 10:30 Nasal Cannula 4 03/28/22 10:50 Nasal Cannula 4 03/28/22 10:33 Room Air Code Status & VTE Plan VTE Prophylaxis Plan VTE Prophylaxis will be ordered: Yes
[2022-03-28] MEDS ORDERED: MIDODRINE HCL 10 MG TAB PO PRN (13:11)
[2022-03-28] MEDS ORDERED: PEPTAMEN 1.5 CAL 1,000 ML BAG PEG SCH (14:30)
--- NOTE | 2022-03-28 14:45 | Emergency Department Note ---
Impression & Plan Aspiration pneumonia, H/O malignant neoplasm of tonsil ED Provider Note CHIEF COMPLAINT: Fever " unresponsive" HISTORY OF PRESENT ILLNESS: This 76-year-old male patient presents to the emergency department by EMS with reports of fever and being unresponsive. REVIEW OF SYSTEMS: A review of systems was performed with positives and pertinent negatives listed in the history of present illness. 10 systems were reviewed and are otherwise negative. ALLERGIES: see below MEDICATIONS: see below PMH: see below SOCIAL HISTORY: see below DDx: Reactive airway disease, pneumonia, pneumothorax, COPD, CHF, infections, cardiac ischemia, pulmonary embolism, musculoskeletal, gastrointestinal, as well as other pathologies. PHYSICAL EXAM: Vital signs reviewed. General: Chronically ill appearing 76 yo male, in no significant distress. Lying on his left side. HEENT: No scleral icterus, PERRLA, neck supple. Postsurgical changes noted to the head and neck, speech is muffled. Hard of hearing. Cardiovascular: Regular rate and rhythm, no extra sounds. Pulmonary: Coarse breath sounds to auscultation bilaterally, normal work of breathing. Abdomen: Soft, nontender, nondistended, positive bowel sounds. Musculoskeletal: Atraumatic, no peripheral edema. Neurologic: Patient awake alert and oriented x 3, speech is clear Skin: Warm, dry, no rash EMERGENCY DEPARTMENT COURSE/MDM: This patient was evaluated and appeared to be in no significant distress. IV access was obtained and laboratory work was drawn. The patient was placed on the bunch maker and noted to be in a normal sinus rhythm. Patient was hydrated with normal saline solution. Laboratory work reveals a normal WBC, slightly elevated lactate and procalcitonin. Patient's chest x-ray is concerning for right basilar infiltrates. Given the patient's history of head and neck surgery/tonsillar cancer, shortness of breath and a moist cough, I do have concerns over aspiration. Patient was medicated with IV Zosyn, given IV Tylenol and hydrated with normal saline solution. Patient's case was discussed with the hospitalist service for further evaluation management. Patient and are aware of the plan and agreed. MONITORING: An order for cardiac monitoring was placed and the patient is noted to be in a sinus bradycardia at 80 beats per minute. RADIOLOGY: See below EKG: Sinus bradycardia 58 bpm. Left axis deviation. Normal ST segments. No PVC, no PAC. QTc is 424. DISPOSITION: Admission Past Med/Surg History Medical History Anxiety Aspiration pneumonia hx - CAN NOT TAKE FOOD/LIQUIDS ORALLY Asthma rare use of PRN inh Benign prostatic hyperplasia (Unknown) Blood pressure instability new issue for pt -- [facility] Cardiology manages; currently using midodrine, and nitro PRN hypo/hypertension; per , cardiac workup wnl aside from BP changes Chronic back pain COPD (chronic obstructive pulmonary disease) with emphysema Degenerative disc disease Depression Gastroparesis GERD (gastroesophageal reflux disease) Glaucoma History of COVID-19 05/2021 treated for pneumonia at [facility] Hypertension Hypothyroidism Osteoarthritis 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 Uses feeding tube Surgical History H/O esophagogastroduodenoscopy (Unknown) WITH PLACEMENT PEG TUBE History of anesthesia reaction SLOW TO WAKE UP History of neck surgery LUMPECTOMY History of radical neck dissection History of tooth extraction S/P arthroscopic knee surgery (Unknown) RT S/P colonoscopy (Unknown) Family History Brother Family history of diabetes mellitus Social History Smoking Status: Former smoker Tobacco Type: Cigarettes Second Hand Exposure: Yes (hx); Hx Alcohol Use: No Hx Substance Use: No Preferred Language: Liberian 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 Ability: Effective Dispatcher Service Chief Required: No Beliefs That Will Affect Care: None marital status: Current Living Situation: Spouse Feels Safe at Home: Yes Assistive Devices: None Allergies Allergies Allergy/AdvReac Type Severity Reaction Status Date / Time levofloxacin Allergy Intermediate rash all Verified 01/20/22 23:48 over body sulfamethoxazole Allergy Intermediate ITCHING Verified 01/20/22 23:48 trimethoprim Allergy Intermediate ITCHING Verified 01/20/22 23:48 sertraline Allergy Mild NOSE BLEEDS Verified 01/20/22 23:48 terazosin Allergy Unknown DOES NOT Verified 01/20/22 23:48 KNOW Nitrate Analogues AdvReac Severe DROP IN BP Verified 01/20/22 23:48 Home Meds Home Medications Medication Instructions Recorded Confirmed citalopram 20 mg tablet 20 mg feeding tube QAM 05/07/18 04/05/22 food supplemt, lactose-reduced 2 can feeding tube QID 05/07/18 04/05/22 (Nutritional Drink oral liquid) latanoprost 0.005 % eye drops 1 drp OPB HS 01/30/19 04/05/22 albuterol sulfate 90 mcg/actuation 2 puff inhalation QID PRN 11/08/20 04/05/22 aerosol inhaler Shortness Of Breath brimonidine 0.2 % eye drops 1 drp OPB BID 11/08/20 04/05/22 acetaminophen 500 mg tablet 1,000 mg PO Q6H PRN Pain 03/06/21 04/05/22 (Tylenol Extra Strength) levothyroxine 88 mcg tablet 88 mcg feeding tube QAM 04/06/21 04/05/22 (Euthyrox) midodrine 5 mg tablet 10 mg feeding tube TID PRN 05/13/21 04/05/22 Hypotension atorvastatin 40 mg tablet 40 mg feeding tube HS 06/02/21 04/05/22 Previous Rx's Medication Instructions Recorded amoxicillin 875 mg-potassium 1 tab PO BID #16 tabs 04/01/22 clavulanate 125 mg tablet Results & Data (ED) Vital Signs Vital Signs - 24 hr 03/28/22 10:33 03/28/22 10:50 03/28/22 10:51 Temperature 39.8 C H Temperature Source Rectal Pulse Rate 82 Pulse Rate [Apical] 80 Pulse Rate from SpO2 Sensor Pulse Rhythm Regular Pulse Rhythm [Apical] Regular Pulse Strength Normal Pulse Strength [Apical] Normal Respiratory Rate 29 H 26 H Respiratory Effort / Characteristics Spontaneous Accessory Muscle Use Short of Breath SOB on Exertion Spontaneous Accessory Muscle Use Short of Breath Spontaneous Accessory Muscle Use Labored Short of Breath SOB on Exertion Respiratory Depth Shallow Normal Normal Respiratory Pattern Tachypnea Tachypnea Tachypnea Blood Pressure 149/63 H Blood Pressure [Right Arm] 115/55 L Blood Pressure Mean 91 Blood Pressure Mean [Right Arm] 75 Blood Pressure Position Sitting Blood Pressure Position [Right Arm] Sitting Pulse Oximetry 91 97 Oxygen Delivery Method Room Air Nasal Cannula Oxygen Flow Rate 4 Sepsis Recent Fever Within 48 Hours Yes Sepsis New/Unexplained Change in Mental Status Yes Sepsis Action Taken by Nursing Physician Notified End-Tidal CO2 03/28/22 10:30 03/28/22 10:25 03/28/22 10:30 Temperature Temperature Source Pulse Rate 85 Pulse Rate [Apical] Pulse Rate from SpO2 Sensor 86 Pulse Rhythm Pulse Rhythm [Apical] Pulse Strength Pulse Strength [Apical] Respiratory Rate 32 H Respiratory Effort / Characteristics Respiratory Depth Respiratory Pattern Blood Pressure 115/55 L Blood Pressure [Right Arm] Blood Pressure Mean 75 Blood Pressure Mean [Right Arm] Blood Pressure Position Blood Pressure Position [Right Arm] Pulse Oximetry 97 95 Oxygen Delivery Method Nasal Cannula Oxygen Flow Rate 4 Sepsis Recent Fever Within 48 Hours Sepsis New/Unexplained Change in Mental Status Sepsis Action Taken by Nursing End-Tidal CO2 29 03/28/22 10:45 03/28/22 11:00 03/28/22 11:00 Temperature Temperature Source Pulse Rate 80 72 Pulse Rate [Apical] Pulse Rate from SpO2 Sensor 72 Pulse Rhythm Pulse Rhythm [Apical] Pulse Strength Pulse Strength [Apical] Respiratory Rate 28 H 26 H Respiratory Effort / Characteristics Respiratory Depth Respiratory Pattern Blood Pressure 107/52 L Blood Pressure [Right Arm] Blood Pressure Mean 70 Blood Pressure Mean [Right Arm] Blood Pressure Position Blood Pressure Position [Right Arm] Pulse Oximetry 96 Oxygen Delivery Method Oxygen Flow Rate Sepsis Recent Fever Within 48 Hours Sepsis New/Unexplained Change in Mental Status Sepsis Action Taken by Nursing End-Tidal CO2 29 Home Medications Current Medication List: was personally reviewed by me Laboratory Data Attestation: I reviewed the patient's lab results. Result diagrams: 04/01/22 06:12 04/01/22 06:12 Lab Results 03/28/22 03/28/22 03/28/22 Range/Units 10:28 10:28 10:28 WBC 11.30 H (4.8-10.8) K/ul RBC 3.91 L (4.63-6.08) M/uL Hgb 13.0 L (14.0-18.0) g/dl POC Hgb (14.0-18.0) g/dl Hct 39.2 L (40.1-51.0) % POC Hct (42-52) % MCV 100.3 H (80.0-100.0) fL MCH 33.2 (25.0-34.0) pg MCHC 33.2 (32.0-36.0) g/dL RDW Std Deviation 48.5 H (36.4-46.3) fL RDW Coeff of Judy 13.2 (11.5-14.5) % Plt Count 98 L (130-400) K/uL MPV 11.5 (9.4-12.4) fL Immature Gran % (Auto) 3.5 % Neut % (Auto) 86.8 % Lymph % (Auto) 3.2 % [place] % (Auto) 6.4 % Eos % (Auto) 0.0 % Baso % (Auto) 0.1 % Neut # (Auto) 9.82 H (1.4-6.5) K/uL Lymph # (Auto) 0.36 L (1.2-3.4) K/uL [place] # (Auto) 0.72 (0.24-0.82) K/uL Eos # (Auto) 0.00 (0-0.50) K/uL Baso # (Auto) 0.01 (0-0.2) K/uL Immature Gran # (Auto) 0.39 H (0.00-0.02) K/uL Platelet Estimate Decreased L (Normal) POC Sodium (135-144) mmol/L Sodium 136 (136-145) mmol/L POC Potassium (3.3-5.0) mmol/L Potassium 3.7 (3.5-5.1) mmol/L POC Chloride (101-112) mmol/L Chloride 104 (98-107) mmol/L Carbon Dioxide 27 (21-32) mmol/L POC Total CO2 (24-31) mmol/L Anion Gap 5 (3-11) POC Anion Gap (16-25) mmol/L POC BUN (7-18) mg/dl BUN 22 (6-23) mg/dl Creatinine 1.15 (0.6-1.4) mg/dl POC Creatinine (0.6-1.3) mg/dl Est Cr Clr Drug Dosing 60.0 ml/min Est GFR ( Amer) 72.3 ml/min Est GFR (Non-Af Amer) 62.3 ml/min BUN/Creatinine Ratio 19.1 (10-20) Glucose 153 H (70-99(Fasting)) mg/dl POC Glucose (other) (70-99) mg/dl Lactate (0.4-2.0) mmol/L Calcium 8.3 L (8.5-10.1) mg/dl POC Ioniz Calcium Al[place] (1.12-1.32) mmol/l Total Bilirubin 1.2 H (0.2-1.0) mg/dl AST 29 (13-39) U/L ALT 47 (7-52) U/L Alkaline Phosphatase 62 (34-104) U/L Troponin I High Sens 24.5 H (0-20) pg/ml Total Protein 5.9 L (6.0-8.3) gm/dl Albumin 3.2 L (3.4-5.0) gm/dl Globulin 2.7 (2.5-4.0) gm/dl Albumin/Globulin Ratio 1.2 (0.9-2) Procalcitonin 2.41 H (0-0.5) ng/ml SARS-CoV-2 (PCR) (Negative) 03/28/22 03/28/22 03/28/22 Range/Units 10:28 10:28 10:30 WBC (4.8-10.8) K/ul RBC (4.63-6.08) M/uL Hgb (14.0-18.0) g/dl POC Hgb 13.3 L (14.0-18.0) g/dl Hct (40.1-51.0) % POC Hct 39 L (42-52) % MCV (80.0-100.0) fL MCH (25.0-34.0) pg MCHC (32.0-36.0) g/dL RDW Std Deviation (36.4-46.3) fL RDW Coeff of Judy (11.5-14.5) % Plt Count (130-400) K/uL MPV (9.4-12.4) fL Immature Gran % (Auto) % Neut % (Auto) % Lymph % (Auto) % [place] % (Auto) % Eos % (Auto) % Baso % (Auto) % Neut # (Auto) (1.4-6.5) K/uL Lymph # (Auto) (1.2-3.4) K/uL [place] # (Auto) (0.24-0.82) K/uL Eos # (Auto) (0-0.50) K/uL Baso # (Auto) (0-0.2) K/uL Immature Gran # (Auto) (0.00-0.02) K/uL Platelet Estimate (Normal) POC Sodium 138 (135-144) mmol/L Sodium (136-145) mmol/L POC Potassium 3.6 (3.3-5.0) mmol/L Potassium (3.5-5.1) mmol/L POC Chloride 100 L (101-112) mmol/L Chloride (98-107) mmol/L Carbon Dioxide (21-32) mmol/L POC Total CO2 26 (24-31) mmol/L Anion Gap (3-11) POC Anion Gap 17.0 (16-25) mmol/L POC BUN 20 H (7-18) mg/dl BUN (6-23) mg/dl Creatinine (0.6-1.4) mg/dl POC Creatinine 1.2 (0.6-1.3) mg/dl Est Cr Clr Drug Dosing ml/min Est GFR ( Amer) ml/min Est GFR (Non-Af Amer) ml/min BUN/Creatinine Ratio (10-20) Glucose (70-99(Fasting)) mg/dl POC Glucose (other) 158 H (70-99) mg/dl Lactate 2.3 H* (0.4-2.0) mmol/L Calcium (8.5-10.1) mg/dl POC Ioniz Calcium [place] 1.23 (1.12-1.32) mmol/l Total Bilirubin (0.2-1.0) mg/dl AST (13-39) U/L ALT (7-52) U/L Alkaline Phosphatase (34-104) U/L Troponin I High Sens (0-20) pg/ml Total Protein (6.0-8.3) gm/dl Albumin (3.4-5.0) gm/dl Globulin (2.5-4.0) gm/dl Albumin/Globulin Ratio (0.9-2) Procalcitonin (0-0.5) ng/ml SARS-CoV-2 (PCR) NEGATIVE (Negative) Administered Medications Discontinued Medications Albuterol (Albut/Ipratrop 3mg/0.5mg Neb 3 Ml Vial) 3 ml NEB NOW STA; Protocol Stop: 03/28/22 20:50 Last Admin: 03/28/22 21:32 Dose: 3 ml Documented By: EML Atorvastatin Calcium (Atorvastatin 40 Mg Tab) 40 mg PEG DAILY GIRISH Stop: 04/28/22 08:59 Last Admin: 04/01/22 08:00 Dose: 40 mg Documented By: Admin: 03/31/22 08:18 Dose: 40 mg Documented By: Admin: 03/30/22 08:15 Dose: 40 mg Documented By: Admin: 03/29/22 08:47 Dose: 40 mg Documented By: EDWARD Brimonidine Tartrate (Brimonidine Tartrate 0.2% 5ml) 1 drops OPB BID GIRISH Stop: 04/27/22 20:59 Last Admin: 04/01/22 08:00 Dose: 1 drops Documented By: Admin: 03/31/22 20:35 Dose: 1 drops Documented By: Admin: 03/31/22 08:18 Dose: 1 drops Documented By: Admin: 03/30/22 20:27 Dose: 1 drops Documented By: Admin: 03/30/22 08:16 Dose: 1 drops Documented By: Admin: 03/29/22 20:09 Dose: 1 drops Documented By: Admin: 03/29/22 08:46 Dose: 1 drops Documented By: Admin: 03/28/22 20:04 Dose: 1 drops Documented By: TATIANA Citalopram Hydrobromide (Citalopram 20 Mg Tab) 20 mg PEG QAM GIRISH Stop: 04/28/22 08:59 Last Admin: 04/01/22 08:00 Dose: 20 mg Documented By: Admin: 03/31/22 08:18 Dose: 20 mg Documented By: Admin: 03/30/22 08:51 Dose: 20 mg Documented By: Admin: 03/29/22 08:46 Dose: 20 mg Documented By: EDWARD Enoxaparin Sodium (Enoxaparin Inj 40 Mg/0.4 Ml Syr) 40 mg SQ QAM GIRISH Stop: 04/29/22 13:59 Last Admin: 04/01/22 08:01 Dose: 40 mg Documented By: Admin: 03/31/22 08:19 Dose: 40 mg Documented By: Admin: 03/30/22 15:28 Dose: 40 mg Documented By: MASSIEL Enteral Nutritional Formula (Peptamen 1.5 Palmer 1,000 Ml Bag) 1,000 ml PEG UD GIRISH; Protocol Stop: 04/27/22 15:44 Last Admin: 03/31/22 14:12 Dose: 1,000 ml Documented By: Admin: 03/29/22 07:45 Dose: 1,000 ml Documented By: EDWARD Sodium Chloride (Nss 1000ml) 1,000 mls @ 125 mls/hr IV .Q8H STA Stop: 03/28/22 18:24 Last Infusion: 03/28/22 12:46 Dose: 0 mls/hr Documented By: Admin: 03/28/22 10:31 Dose: 125 mls/hr Documented By: VERONIQUE Acetaminophen (Ofirmev) 1,000 mg in 100 mls @ 400 mls/hr IV NOW STA Stop: 03/28/22 10:39 Last Infusion: 03/28/22 10:46 Dose: 0 mls/hr Documented By: Admin: 03/28/22 10:31 Dose: 400 mls/hr Documented By: VERONIQUE Piperacillin Sod/Tazobactam Sod (Zosyn) 4.5 gm in 120 mls @ 240 mls/hr IV NOW ONE Stop: 03/28/22 11:31 Last Infusion: 03/28/22 12:47 Dose: 0 mls/hr Documented By: Admin: 03/28/22 12:00 Dose: 240 mls/hr Documented By: TANG Sodium Chloride (Nss 1000ml) 1,000 mls @ 999 mls/hr IV .Q1H1M ONE Stop: 03/28/22 12:03 Last Infusion: 03/28/22 12:47 Dose: 0 mls/hr Documented By: Admin: 03/28/22 12:45 Dose: 999 mls/hr Documented By: TANG Ampicillin Sodium/Sulbactam Sodium 3,000 mg/ Sodium Chloride 108 mls @ 200 mls/hr IV Q6H [facility]; Protocol Stop: 04/04/22 16:59 Last Infusion: 04/01/22 12:56 Dose: 0 mls/hr Documented By: Admin: 04/01/22 11:58 Dose: 200 mls/hr Documented By: Infusion: 04/01/22 05:06 Dose: 0 mls/hr Documented By: Admin: 04/01/22 04:29 Dose: 200 mls/hr Documented By: Infusion: 03/31/22 23:50 Dose: 0 mls/hr Documented By: Admin: 03/31/22 23:13 Dose: 200 mls/hr Documented By: Infusion: 03/31/22 17:49 Dose: 0 mls/hr Documented By: Admin: 03/31/22 17:02 Dose: 200 mls/hr Documented By: Infusion: 03/31/22 13:20 Dose: 0 mls/hr Documented By: Admin: 03/31/22 12:27 Dose: 200 mls/hr Documented By: Infusion: 03/31/22 05:05 Dose: 0 mls/hr Documented By: Admin: 03/31/22 04:30 Dose: 200 mls/hr Documented By: Infusion: 03/30/22 23:45 Dose: 0 mls/hr Documented By: Admin: 03/30/22 23:09 Dose: 200 mls/hr Documented By: Infusion: 03/30/22 18:32 Dose: 0 mls/hr Documented By: Admin: 03/30/22 16:21 Dose: 200 mls/hr Documented By: Infusion: 03/30/22 11:59 Dose: 0 mls/hr Documented By: Admin: 03/30/22 11:21 Dose: 200 mls/hr Documented By: Infusion: 03/30/22 05:41 Dose: 0 mls/hr Documented By: Admin: 03/30/22 05:08 Dose: 200 mls/hr Documented By: Infusion: 03/29/22 23:20 Dose: 0 mls/hr Documented By: Admin: 03/29/22 22:45 Dose: 200 mls/hr Documented By: Infusion: 03/29/22 18:22 Dose: 0 mls/hr Documented By: Admin: 03/29/22 17:52 Dose: 200 mls/hr Documented By: Infusion: 03/29/22 12:33 Dose: 0 mls/hr Documented By: Admin: 03/29/22 11:57 Dose: 200 mls/hr Documented By: Infusion: 03/29/22 05:14 Dose: 0 mls/hr Documented By: Admin: 03/29/22 04:41 Dose: 200 mls/hr Documented By: Infusion: 03/28/22 23:04 Dose: 0 mls/hr Documented By: Admin: 03/28/22 22:31 Dose: 200 mls/hr Documented By: Infusion: 03/28/22 16:55 Dose: 0 mls/hr Documented By: Admin: 03/28/22 16:20 Dose: 200 mls/hr Documented By: DANNY Methylprednisolone 20 mg/ (Syringe) 0.32 mls @ 1.5 mls/min IV NOW ONE Stop: 03/28/22 21:06 Last Admin: 03/28/22 22:55 Dose: 1.5 mls/min Documented By: AM Lactated Ringer's (Lr) 1,000 mls @ 100 mls/hr IV .Q10H GIRISH Stop: 03/30/22 06:59 Last Infusion: 03/30/22 10:00 Dose: 0 mls/hr Documented By: Admin: 03/29/22 22:25 Dose: 100 mls/hr Documented By: Infusion: 03/29/22 22:25 Dose: 100 mls/hr Documented By: Admin: 03/29/22 11:57 Dose: 100 mls/hr Documented By: EDWARD Magnesium Sulfate/Dextrose (Magnesium Sulfate / D5w) 1 gm in 100 mls @ 50 mls/hr IV Q2H GIRISH Stop: 03/31/22 11:29 Last Infusion: 03/31/22 12:27 Dose: 0 mls/hr Documented By: Admin: 03/31/22 10:27 Dose: 50 mls/hr Documented By: Infusion: 03/31/22 10:27 Dose: 0 mls/hr Documented By: Admin: 03/31/22 08:18 Dose: 50 mls/hr Documented By: ISABELLA Latanoprost (Latanoprost 0.005% Op Soln 2.5 Ml Btl) 1 drops OPB HS GIRISH Stop: 04/27/22 20:59 Last Admin: 03/31/22 20:36 Dose: 1 drops Documented By: Admin: 03/30/22 20:27 Dose: 1 drops Documented By: Admin: 03/29/22 20:09 Dose: 1 drops Documented By: Admin: 03/28/22 20:04 Dose: 1 drops Documented By: AM Levothyroxine Sodium (Levothyroxine Sodium 88 Mcg Tablet) 88 mcg PEG DAILYBB GIRISH Stop: 04/28/22 06:29 Last Admin: 04/01/22 06:10 Dose: 88 mcg Documented By: Admin: 03/31/22 06:24 Dose: 88 mcg Documented By: Admin: 03/30/22 06:41 Dose: 88 mcg Documented By: Admin: 03/29/22 05:59 Dose: 88 mcg Documented By: AM Potassium Chloride (Potassium Chloride 20 Meq/15 Ml Udc) 40 meq PEG NOW STA Stop: 03/30/22 09:26 Last Admin: 03/30/22 09:46 Dose: 40 meq Documented By: MASSIEL Potassium Chloride (Potassium Chloride Crtab 20 Meq Tabcr) 40 meq PO Q2H GIRISH Stop: 03/31/22 09:31 Last Admin: 03/31/22 10:44 Dose: 40 meq Documented By: Admin: 03/31/22 08:18 Dose: 40 meq Documented By: ISABELLA Potassium Chloride (Potassium Chloride Crtab 20 Meq Tabcr) 40 meq PO NOW STA Stop: 04/01/22 07:20 Last Admin: 04/01/22 07:59 Dose: 40 meq Documented By: JULIAN Potassium Phosphate (Pot Phosphate Monobasic W/ Sod Tab) 2 tab PEG QID GIRISH Stop: 03/31/22 09:01 Last Admin: 03/31/22 08:18 Dose: 2 tab Documented By: Admin: 03/30/22 20:28 Dose: 2 tab Documented By: Admin: 03/30/22 16:24 Dose: 2 tab Documented By: Admin: 03/30/22 11:22 Dose: 2 tab Documented By: MASSIEL Sterile Water (Tube Feeding Water Flush) 150 ml PEG Q4H GIRISH Stop: 04/27/22 14:29 Last Admin: 04/01/22 11:39 Dose: 150 ml Documented By: Admin: 04/01/22 06:10 Dose: 150 ml Documented By: Admin: 04/01/22 02:50 Dose: 150 ml Documented By: Admin: 03/31/22 23:13 Dose: 150 ml Documented By: Admin: 03/31/22 17:02 Dose: 150 ml Documented By: Admin: 03/31/22 14:11 Dose: 150 ml Documented By: Admin: 03/31/22 10:28 Dose: 150 ml Documented By: Admin: 03/31/22 06:25 Dose: 150 ml Documented By: Admin: 03/31/22 03:09 Dose: 150 ml Documented By: Admin: 03/30/22 23:10 Dose: 150 ml Documented By: Admin: 03/30/22 17:43 Dose: 150 ml Documented By: Admin: 03/30/22 15:29 Dose: 150 ml Documented By: Admin: 03/30/22 11:22 Dose: 150 ml Documented By: Admin: 03/30/22 06:41 Dose: 150 ml Documented By: Admin: 03/30/22 02:31 Dose: Not Given Documented By: Admin: 03/29/22 22:25 Dose: 150 ml Documented By: Admin: 03/29/22 18:22 Dose: Not Given Documented By: Admin: 03/29/22 11:58 Dose: Not Given Documented By: Admin: 03/29/22 10:41 Dose: 150 ml Documented By: Admin: 03/29/22 06:32 Dose: 150 ml Documented By: Admin: 03/29/22 02:34 Dose: 150 ml Documented By: Admin: 03/28/22 22:27 Dose: 150 ml Documented By: Admin: 03/28/22 15:46 Dose: 150 ml Documented By: Admin: 03/28/22 15:43 Dose: 150 ml Documented By: KEG Imaging Data Radiologist's Impression: Chest X-Ray 03/28/22 10:25 XR chest 1V portable CLINICAL HISTORY: Fever. COMPARISON STUDY: Chest CT June 14, 2021. Chest radiograph March 27, 2022. FINDINGS: Lung volumes are mildly diminished. There is no pneumothorax or pleur al effusion. Subtle interstitial thickening is likely chronic. Cardiomediastinal silhouette is stable. Subtle right midlung hazy density has developed since prior chest radiograph. IMPRESSION: Subtle right midlung hazy density which has developed since prior exam. Although this could be artifactual, pneumonia is favored. ACT 112: Negative or not required by law. Electronically signed by: Mike Sosa M.D. 03/28/2022 10:55 AM Blood Pressure Blood Pressure Findings: Normal blood pressure Blood Pressure Disposition: did not require urgent referral Discharge Plan Visit Data Chief Complaint: Respiratory Distress Stated Complaint: unresponsiveness ED Provider: Mary Garcia Discharge Problem: Aspiration pneumonia, H/O malignant neoplasm of tonsil Patient Disposition: Admitted As Inpatient Discharge Instructions Interventions: ED Discharge Assessment Last Done: 03/28/22 12:51
[2022-03-28 15:00] LABS: Appearance Urine Clear (Clear); Bilirubin Urine Negative (Negative); Blood Urine Negative (Negative); Color Urine Yellow; Glucose Urine UA Negative (Negative); Ketones Urine Negative (Negative); Leukocyte Esterase Urine Negative (Negative); Nitrite Urine Negative (Negative); Protein Urine Negative (Negative); Specific Gravity Urine 1.013 (1.000-1.030); Urobilinogen Urine Negative (Negative); pH Urine 6.5 (4.5-7.5)
[2022-03-28] MEDS: TUBE FEEDING WATER FLUSH PEG SCH ×3 (15:43→22:27)
[2022-03-28] MEDS: AMPICILLIN/SULBACTAM SOD 3,000 MG in 0.9 % SODIUM CHLORIDE 100 ML IV SCH ×2 (16:20→22:31)
[2022-03-28] MEDS: BRIMONIDINE TARTRATE 0.2% 5ML OPB SCH (20:04)
[2022-03-28] MEDS: LATANOPROST 0.005% OP SOLN 2.5 ML BTL OPB SCH (20:04)
[2022-03-28] MEDS ORDERED: ALBUT/IPRATROP 3MG/0.5MG NEB 3 ML VIAL NEB PRN (20:49)
[2022-03-28] MEDS ORDERED: ALBUT/IPRATROP 3MG/0.5MG NEB 3 ML VIAL NEB STA (20:49)
[2022-03-28] MEDS ORDERED: ATORVASTATIN 40 MG TAB PEG SCH (21:00)
[2022-03-28] MEDS ORDERED: methylPREDNISolone 20 MG in SYRINGE 0 ML IV ONE (21:05)
[2022-03-29] MEDS: TUBE FEEDING WATER FLUSH PEG SCH ×6 (02:34→22:25)
[2022-03-29] MEDS: AMPICILLIN/SULBACTAM SOD 3,000 MG in 0.9 % SODIUM CHLORIDE 100 ML IV SCH ×4 (04:41→22:45)
[2022-03-29] MEDS: LEVOTHYROXINE SODIUM 88 MCG TABLET PEG SCH (05:59)
[2022-03-29 07:34] LABS: Hematocrit (blood only) 35.6 % (40.1-51.0); Hemoglobin 11.6 g/dl (14.0-18.0); Mean Corpuscular Hemoglobin 32.9 pg (25.0-34.0); Mean Corpuscular Hgb Conc 32.6 g/dL (32.0-36.0); Mean Corpuscular Volume 100.8 fL (80.0-100.0); Platelet Count 82 K/uL (130-400); RDW Coefficient of Variation 13.2 % (11.5-14.5); RDW Standard Deviation 49.2 fL (36.4-46.3); Red Blood Count 3.53 M/uL (4.63-6.08); White Blood Count 11.23 K/ul (4.8-10.8)
[2022-03-29] MEDS: PEPTAMEN 1.5 CAL 1,000 ML BAG PEG SCH (07:45)
[2022-03-29 07:52] LABS: BUN Creatinine Ratio 25.9 (10-20); Calcium 8.5 mg/dl (8.5-10.1); Creatinine Clr Calc Pharmacy 85.2 ml/min; Est GFR (African American) 101.5 ml/min; Est GFR (Non-African American) 87.6 ml/min; Magnesium 2.1 mg/dl (1.7-2.4); Phosphorus 2.1 mg/dl (2.5-4.9)
[2022-03-29] MEDS: CITALOPRAM 20 MG TAB PEG SCH (08:46)
[2022-03-29] MEDS: BRIMONIDINE TARTRATE 0.2% 5ML OPB SCH ×2 (08:46→20:09)
[2022-03-29] MEDS: ATORVASTATIN 40 MG TAB PEG SCH (08:47)
[2022-03-29] MEDS ORDERED: ACETAMINOPHEN 325 MG TAB PEG PRN (10:51)
[2022-03-29] MEDS: LACTATED RINGER'S 1,000 ML IV SCH ×2 (11:57→22:25)
--- NOTE | 2022-03-29 13:25 | Hospitalist Progress Note ---
Date of Service March 29, 2022 Assessment & Plan (1) Aspiration pneumonia: (2) Sepsis: (3) Elevated transaminase level: (4) Hypothyroidism: (5) Hypertension: (6) Uses feeding tube: (7) DVT prophylaxis: Plan Severe sepsis Likely aspiration pneumonia Patient came in with worsening cough/chills on the background of vomiting milk taken via PEG tube raising the suspicion of aspiration pneumonia. Temperature and respiratory rate elevated along with lactate elevation at presentation. WBC and Pro-Palmer elevated. CXR with right middle lobe pneumonia. Patient received Zosyn and IV fluid in the ED, continue with IV fluid and Unasyn. Aspiration precautions. NPO. Dietitian consult for PEG tube nutrition. Lactate resolved but will cont IVF for dehydration. Mild troponin elevation: Likely secondary to sepsis, trend troponin, patient with no chest pain. This is demand ischemia. LFT elevation: elevated on admission but resolved today. Noted to be on Lipitor and drinks alcohol regularly. RUQ US ordered. also expressed concerns. Alcohol use: watch out for withdrawal, drink 2 beers a day via peg tube. reports he has stopped this. DVT prophylaxis: Lovenox Full code Admission and Anticipated Discharge Date Admission Date: March 28, 2022 Subjective 76 yo M presents with generalized malaise and weakness that was worsening over the last week Today he is generally weak but feels better Not on home oxygen and 94% on 3LPM now. Some cough Febrile on admission (39.8C) but no fever in last 24 hours. No vomiting Receiving continuous feeding tube at bedside and concerned about LFT elevation We discussed the role of acute illness and statin use Also noted that his feeding tube and the nutrition line with formula coming through came unplugged and is leaking Review of Systems Review of Systems: All systems were reviewed and negative except as indicated in subjective above. Physical Exam Physical Exam: CONSTITUTIONAL: WNWD, vitals as above, generally well- appearing but appears fatigued, NAD EYES: normal conjunctivae, no scleral icterus ENT: external ear and nose normal, MMM NECK: trachea midline RESPIRATORY: clear to auscultation bilaterally, no crackles, rales or wheezes, normal respiratory effort CARDIOVASCULAR: regular rate and rhythm, S1 and 2 heard without murmurs, gallops or rubs, no JVD, no peripheral edema CHEST: inspection of chest was normal GASTROINTESTINAL: soft, nontender, ND, no guarding MUSCULOSKELETAL: strength 5/5 throughout, head is normocephalic and atraumatic SKIN: warm and dry NEUROLOGIC: CN 2-12 grossly intact, no sensory deficit, normal cognition, normal speech, no tremor PSYCHIATRIC: alert cooperative and oriented to person, place and time. Results & Data Results & Data ([facility]) Vital Signs (Past 12 Hours) Vital Signs Temp Pulse Pulse Resp BP Pulse Ox O2 Del Method 03/29/22 12:22 36.9 C 53 L 16 98/60 L 94 Nasal Cannula 03/29/22 09:35 55 L 03/29/22 09:03 Nasal Cannula 03/29/22 08:25 36.8 C 57 L 19 116/55 L 97 Nasal Cannula 03/29/22 03:49 36.7 C 60 18 108/59 L 96 Nasal Cannula O2 Flow Rate 03/29/22 12:22 3 03/29/22 09:35 03/29/22 09:03 3 03/29/22 08:25 3 03/29/22 03:49 3 Laboratory Results Short CBC 03/29/22 Range/Units 06:59 WBC 11.23 H (4.8-10.8) K/ul Hgb 11.6 L (14.0-18.0) g/dl Hct 35.6 L (40.1-51.0) % Plt Count 82 L (130-400) K/uL BMP 03/29/22 06:59 Sodium 134 L Potassium 4.0 Chloride 105 Carbon Dioxide 26 BUN 21 Creatinine 0.81 D Glucose 172 H Calcium 8.5 Urine 03/28/22 Range/Units 14:10 Urine Color Yellow Urine Appearance Clear (Clear) Urine pH 6.5 (4.5-7.5) Ur Specific [place] 1.013 (1.000-1.030) Urine Protein Negative (Negative) Urine Glucose (UA) Negative (Negative) Medications Administered Current Inpatient Medications Acetaminophen (Acetaminophen 325 Mg Tab) 650 mg PEG Q4H PRN PRN Reason: Pain or Fever Stop: 04/27/22 12:26 Al Hydrox/Mg Hydrox/Simethicone (Aluminum/Magnesium Susp 30 Ml Udc) 15 ml PO Q4H PRN PRN Reason: Dyspepsia Stop: 04/27/22 12:26 Albuterol (Albut/Ipratrop 3mg/0.5mg Neb 3 Ml Vial) 3 ml NEB Q2H PRN; Protocol PRN Reason: Wheezing Stop: 04/27/22 20:48 Atorvastatin Calcium (Atorvastatin 40 Mg Tab) 40 mg PEG DAILY GIRISH Stop: 04/28/22 08:59 Last Admin: 03/29/22 08:47 Dose: 40 mg Brimonidine Tartrate (Brimonidine Tartrate 0.2% 5ml) 1 drops OPB BID GIRISH Stop: 04/27/22 20:59 Last Admin: 03/29/22 08:46 Dose: 1 drops Citalopram Hydrobromide (Citalopram 20 Mg Tab) 20 mg PEG QAM GIRISH Stop: 04/28/22 08:59 Last Admin: 03/29/22 08:46 Dose: 20 mg Enteral Nutritional Formula (Peptamen 1.5 Palmer 1,000 Ml Bag) 1,000 ml PEG UD GIRISH; Protocol Stop: 04/27/22 15:44 Last Admin: 03/29/22 07:45 Dose: 1,000 ml Ampicillin Sodium/Sulbactam Sodium 3,000 mg/ Sodium Chloride 108 mls @ 200 mls/hr IV Q6H GIRISH; Protocol Stop: 04/04/22 16:59 Last Infusion: 03/29/22 12:33 Dose: Infused Lactated Ringer's (Lr) 1,000 mls @ 100 mls/hr IV .Q10H GIRISH Stop: 03/30/22 06:59 Last Admin: 03/29/22 11:57 Dose: 100 mls/hr Latanoprost (Latanoprost 0.005% Op Soln 2.5 Ml Btl) 1 drops OPB HS GIRISH Stop: 04/27/22 20:59 Last Admin: 03/28/22 20:04 Dose: 1 drops Levothyroxine Sodium (Levothyroxine Sodium 88 Mcg Tablet) 88 mcg PEG DAILYBB GIRISH Stop: 04/28/22 06:29 Last Admin: 03/29/22 05:59 Dose: 88 mcg Magnesium Hydroxide (Magnesium Hydroxide Susp 30 Ml Udc) 30 ml PO Q12H PRN PRN Reason: Constipation Stop: 04/27/22 12:26 Midodrine (Midodrine Hcl 10 Mg Tab) 10 mg PO TID PRN PRN Reason: Hypotension Stop: 04/27/22 13:10 Ondansetron HCl (Ondansetron Inj 2 Mg/Ml 2 Ml Vial) 4 mg IV Q6H PRN PRN Reason: Nausea Stop: 04/27/22 12:26 Polyethylene Glycol (Polyethylene (Miralax) 17 Gm Pack) 17 gm PO DAILY PRN PRN Reason: Constipation Stop: 04/27/22 12:26 Sterile Water (Tube Feeding Water Flush) 150 ml PEG Q4H GIRISH Stop: 04/27/22 14:29 Last Admin: 03/29/22 11:58 Dose: Not Given (1) Hypertension Hypertension type: unspecified Qualified Code(s): I10 - Essential (primary) hypertension
--- NOTE | 2022-03-29 14:44 | Electrocardiogram Report ---
Test Reason : Blood Pressure : / mmHG Vent. Rate : 089 BPM Atrial Rate : 089 BPM P-R Int : 150 ms QRS Dur : 088 ms QT Int : 370 ms P-R-T Axes : 052 -56 052 degrees QTc Int : 450 ms Normal sinus rhythm Left anterior fascicular block Abnormal ECG When compared with ECG of 27-MAR-2022 05:18, Sinus rhythm has replaced Junctional rhythm Confirmed by Robert Carrillo ([id number]) on 03/29/2022 2:43:39 PM Referred By: REFERRED SELF Confirmed By:Robert Carrillo
--- NOTE | 2022-03-29 15:03 | Electrocardiogram Report ---
Test Reason : Blood Pressure : / mmHG Vent. Rate : 058 BPM Atrial Rate : 058 BPM P-R Int : 150 ms QRS Dur : 084 ms QT Int : 432 ms P-R-T Axes : 054 -37 017 degrees QTc Int : 424 ms Sinus bradycardia Left axis deviation Abnormal ECG When compared with ECG of 28-MAR-2022 10:19, (unconfirmed) Vent. rate has decreased BY 31 BPM Confirmed by Robert Carrillo ([id number]) on 03/29/2022 3:02:49 PM Referred By: REFERRED SELF Confirmed By:Robert Carrillo
[2022-03-29] MEDS: LATANOPROST 0.005% OP SOLN 2.5 ML BTL OPB SCH (20:09)
[2022-03-30] MEDS: TUBE FEEDING WATER FLUSH PEG SCH ×6 (02:31→23:10)
[2022-03-30] MEDS: AMPICILLIN/SULBACTAM SOD 3,000 MG in 0.9 % SODIUM CHLORIDE 100 ML IV SCH ×4 (05:08→23:09)
[2022-03-30] MEDS: LEVOTHYROXINE SODIUM 88 MCG TABLET PEG SCH (06:41)
[2022-03-30 07:13] LABS: Basophils # (auto) 0.02 K/uL (0-0.2); Basophils % (auto) 0.2 %; Eosinophils # (auto) 0.06 K/uL (0-0.50); Eosinophils % (auto) 0.6 %; Hematocrit (blood only) 36.2 % (40.1-51.0); Hemoglobin 12.3 g/dl (14.0-18.0); Immature Granulocytes # (auto) 0.04 K/uL (0.00-0.02); Immature Granulocytes % (auto) 0.4 %; Lymphocytes # (auto) 0.61 K/uL (1.2-3.4); Lymphocytes % (auto) 5.9 %; Mean Corpuscular Hemoglobin 33.2 pg (25.0-34.0); Mean Corpuscular Volume 97.8 fL (80.0-100.0); Mean Platelet Volume 12.8 fL (9.4-12.4); Monocytes # (auto) 0.59 K/uL (0.24-0.82); Monocytes % (auto) 5.7 %; Neutrophils # (auto) 9.07 K/uL (1.4-6.5); Neutrophils % (auto) 87.2 %; Platelet Count 108 K/uL (130-400); RDW Coefficient of Variation 13.1 % (11.5-14.5); RDW Standard Deviation 46.4 fL (36.4-46.3); White Blood Count 10.39 K/ul (4.8-10.8)
[2022-03-30 07:57] LABS: Albumin Globulin Ratio 1.1 (0.9-2); Albumin Level 3.3 gm/dl (3.4-5.0); BUN Creatinine Ratio 27.1 (10-20); Calcium 8.5 mg/dl (8.5-10.1); Creatinine Clr Calc Pharmacy 98.6 ml/min; Est GFR (African American) 107.8 ml/min; Magnesium 1.8 mg/dl (1.7-2.4); Phosphorus 2.4 mg/dl (2.5-4.9); Potassium 3.4 mmol/L (3.5-5.1); Total Protein 6.3 gm/dl (6.0-8.3)
[2022-03-30] MEDS: ATORVASTATIN 40 MG TAB PEG SCH (08:15)
[2022-03-30] MEDS: BRIMONIDINE TARTRATE 0.2% 5ML OPB SCH ×2 (08:16→20:27)
[2022-03-30] MEDS: CITALOPRAM 20 MG TAB PEG SCH (08:51)
[2022-03-30] MEDS ORDERED: POTASSIUM CHLORIDE 20 MEQ/15 ML UDC PEG STA (09:25)
--- NOTE | 2022-03-30 09:57 | Ultrasound Report ---
US liver CLINICAL HISTORY: elevated LFTs COMPARISON STUDY: CT of the abdomen and pelvis December 14, 2020. Right upper quadrant ultrasound August 04, 2013. FINDINGS: Liver is sonographically normal. There is no biliary ductal dilatation. No gallstones are i dentified. Echogenic focus within the gallbladder wall is again noted. This was shown on prior exam. This may reflect adenomyomatosis. There was no sonographic Reilly sign. Pancreas is obscured by overl joie bowel gas. No right hydronephrosis is present. IMPRESSION: 1. No gallstones or biliary ductal dilatation. 2. Obscured pancreas. ACT 112: Negative or not required by law. Electronically signed by: Mike Sosa M.D. 03/30/2022 9:55 AM
[2022-03-30] MEDS: POT PHOSPHATE MONOBASIC W/ SOD TAB PEG SCH ×3 (11:22→20:28)
--- NOTE | 2022-03-30 13:58 | Hospitalist Progress Note ---
Date of Service March 30, 2022 Assessment & Plan (1) Aspiration pneumonia: (2) Sepsis: (3) Elevated transaminase level: (4) Hypothyroidism: (5) Hypertension: (6) Uses feeding tube: (7) DVT prophylaxis: Plan 76-year-old gentleman is being managed for the following: Severe sepsis Likely aspiration pneumonia Patient came in with worsening cough/chills on the background of vomiting milk taken via PEG tube raising the suspicion of aspiration pneumonia. Temperature and respiratory rate elevated along with lactate elevation at presentation. WBC and Pro-Palmer elevated at admission. Admitting CXR with right middle lobe pneumonia. WBC and Pro-Palmer trending down, oxygen requirement trending down, patient reports feeling better. Wean down oxygen as tolerated. Patient does not use oxygen at home. Continue with Unasyn 03/28, to p.o. likely tomorrow. Aspiration precautions. Speech evaluated, appreciate recommendation. Maintain strict oral care. Dietitian for PEG tube nutrition. Continue with tube feed. Electrolytes replaced today. Mild troponin elevation: Likely secondary to sepsis, troponin trended down. Patient with no chest pain. This is demand ischemia. LFT elevation: elevated on admission but resolved. RUQ US with no acute finding. Noted to be on Lipitor and drinks alcohol regularly. Patient and made aware and consult against alcohol use in the future. Alcohol use: watch out for withdrawal, drink 2 beers a day via peg tube. Patient and his were counseled at bedside against alcohol use in future. DVT prophylaxis: Lovenox Full code Disposition: PT/OT KENNY nj to assist with DC planning, likely DC tomorrow. Admission and Anticipated Discharge Date Admission Date: March 28, 2022 Subjective Patient seen and examined at bedside as a follow-up of likely aspiration pneumonia and severe sepsis. Patient was lying semiupright in bed, on 2 L nasal cannula oxygen, denies any discomfort or pain, patient hard to comprehend and is [place]IMI[place], patient's at bedside, denies any acute event overnight. Patient getting tube feeding after liver ultrasound today. Patient's electrolytes are replaced. Wean down oxygen as tolerated. ROS grossly negative. Physical Exam Physical Exam: GENERAL: Alert and oriented x3. NAD, on 2L NC O2. PAIMIUT. HEENT: No pallor, no icterus. Pupils equal, round and reactive to light. Oral mucosa moist. NECK: No JVD, no neck masses. HEART: S1 and S2 heard. Regular rate and rhythm. No murmur, no gallop. RESPIRATORY SYSTEM: Normal AP diameter. No accessory muscle use. No wheezing, b/b crackles. ABDOMEN: Soft, bowel sounds present, nontender, no distention. PEG tube w/o s/s of infection at port of entry. CENTRAL NERVOUS SYSTEM: No facial droop. Speech is clear. Obeys simple commands. Moves extremities. EXTREMITIES: No edema, no erythema seen. Results & Data Results & Data ([facility]) Vital Signs (Past 12 Hours) Vital Signs Temp Pulse Pulse Resp BP Pulse Ox O2 Del Method 03/30/22 12:00 37.2 C 64 18 128/69 97 Nasal Cannula 03/30/22 09:24 69 03/30/22 09:14 Room Air 03/30/22 07:48 37.1 C 70 18 159/82 H 98 Nasal Cannula 03/30/22 03:13 36.6 C 64 20 158/83 H 94 Nasal Cannula O2 Flow Rate 03/30/22 12:00 03/30/22 09:24 03/30/22 09:14 03/30/22 07:48 2 03/30/22 03:13 3 (1) Hypertension Hypertension type: unspecified Qualified Code(s): I10 - Essential (primary) hypertension
[2022-03-30] MEDS: ENOXAPARIN INJ 40 MG/0.4 ML SYR SQ SCH (15:28)
[2022-03-30] MEDS: LATANOPROST 0.005% OP SOLN 2.5 ML BTL OPB SCH (20:27)
[2022-03-31] MEDS: TUBE FEEDING WATER FLUSH PEG SCH ×6 (03:09→23:13)
[2022-03-31] MEDS: AMPICILLIN/SULBACTAM SOD 3,000 MG in 0.9 % SODIUM CHLORIDE 100 ML IV SCH ×4 (04:30→23:13)
[2022-03-31 06:13] LABS: Hematocrit (blood only) 35.8 % (40.1-51.0); Hemoglobin 12.4 g/dl (14.0-18.0); Mean Corpuscular Hemoglobin 33.2 pg (25.0-34.0); Mean Corpuscular Hgb Conc 34.6 g/dL (32.0-36.0); Mean Platelet Volume 11.9 fL (9.4-12.4); Platelet Count 116 K/uL (130-400); RDW Coefficient of Variation 12.8 % (11.5-14.5); RDW Standard Deviation 45.2 fL (36.4-46.3); Red Blood Count 3.73 M/uL (4.63-6.08); White Blood Count 6.07 K/ul (4.8-10.8)
[2022-03-31] MEDS: LEVOTHYROXINE SODIUM 88 MCG TABLET PEG SCH (06:24)
[2022-03-31 06:47] LABS: BUN Creatinine Ratio 17.9 (10-20); Calcium 8.5 mg/dl (8.5-10.1); Est GFR (African American) 109.7 ml/min; Est GFR (Non-African American) 94.7 ml/min; Magnesium 1.7 mg/dl (1.7-2.4); Phosphorus 3.9 mg/dl (2.5-4.9)
[2022-03-31] MEDS: POT PHOSPHATE MONOBASIC W/ SOD TAB PEG SCH (08:18)
[2022-03-31] MEDS: MAGNESIUM SULFATE / D5W 1 GM/100 ML BAG IV SCH ×2 (08:18→10:27)
[2022-03-31] MEDS: ATORVASTATIN 40 MG TAB PEG SCH (08:18)
[2022-03-31] MEDS: BRIMONIDINE TARTRATE 0.2% 5ML OPB SCH ×2 (08:18→20:35)
[2022-03-31] MEDS: POTASSIUM CHLORIDE CRTAB 20 MEQ TABCR PO SCH ×2 (08:18→10:44)
[2022-03-31] MEDS: CITALOPRAM 20 MG TAB PEG SCH (08:18)
[2022-03-31] MEDS: ENOXAPARIN INJ 40 MG/0.4 ML SYR SQ SCH (08:19)
[2022-03-31] MEDS: PEPTAMEN 1.5 CAL 1,000 ML BAG PEG SCH (14:12)
[2022-03-31] MEDS ORDERED: LORazepam 1 MG in SYRINGE 0.5 ML IV PRN (14:37)
--- NOTE | 2022-03-31 14:40 | Hospitalist Progress Note ---
Date of Service March 31, 2022 Assessment & Plan (1) Aspiration pneumonia: (2) Sepsis: (3) Elevated transaminase level: (4) Hypothyroidism: (5) Hypertension: (6) Uses feeding tube: (7) DVT prophylaxis: Plan 76-year-old gentleman is being managed for the following: Severe sepsis Likely aspiration pneumonia Patient came in with worsening cough/chills on the background of vomiting milk taken via PEG tube raising the suspicion of aspiration pneumonia. Temperature and respiratory rate elevated along with lactate elevation at presentation. WBC and Pro-Palmer elevated at admission. Admitting CXR with right middle lobe pneumonia. WBC and Pro-Palmer continues to trend down, oxygen requirement trending down to RA. Had one episode of temp 38 c overnight, continue to follow. Continue with Unasyn 03/28, to p.o./peg on DC Aspiration precautions. Speech evaluated, appreciate recommendation. Maintain strict oral care. Dietitian for PEG tube nutrition. Continue with tube feed. Electrolytes replaced today. Mild troponin elevation: Likely secondary to sepsis, troponin trended down. Patient with no chest pain. This is demand ischemia. LFT elevation: elevated on admission but resolved. RUQ US with no acute finding. Noted to be on Lipitor and drinks alcohol regularly. Patient and made aware and counselled against alcohol use in the future. Alcohol use: watch out for withdrawal, drink 2 beers a day via peg tube. Patient and his were counseled at bedside against alcohol use in future. Last alc use the night prior to arrival per pt's . More sluggish/weak today per . DVT prophylaxis: Lovenox Full code Disposition: PT/OT KENNY nj to assist with DC planning, likely DC tomorrow. Admission and Anticipated Discharge Date Admission Date: March 28, 2022 Subjective Patient seen and examined at bedside as a follow-up of likely aspiration pneumonia and severe sepsis. Patient was lying in bed, on RA, denies any discomfort or pain, patient hard to comprehend and is [place], patient's at bedside, reports fever overnight, had 38 C per record. Per , pt more sluggish and appears weak today. ROS grossly negative. Physical Exam Physical Exam: GENERAL: Alert and oriented x3. NAD, on RA. [place]. HEENT: No pallor, no icterus. Pupils equal, round and reactive to light. Oral mucosa moist. NECK: No JVD, no neck masses. HEART: S1 and S2 heard. Regular rate and rhythm. No murmur, no gallop. RESPIRATORY SYSTEM: Normal AP diameter. No accessory muscle use. No wheezing, Rt mid to basal crackles. ABDOMEN: Soft, bowel sounds present, nontender, no distention. PEG tube w/o s/s of infection at port of entry. CENTRAL NERVOUS SYSTEM: No facial droop. Speech is clear. Obeys simple commands. Moves extremities. EXTREMITIES: No edema, no erythema seen. Results & Data Results & Data ([facility]) Vital Signs (Past 12 Hours) Vital Signs Temp Pulse Resp BP Pulse Ox O2 Del Method 03/31/22 11:04 36.9 C 66 18 153/85 H 92 Room Air 03/31/22 09:31 Room Air 03/31/22 08:36 37.3 C 68 18 103/81 92 Room Air 03/31/22 03:13 37.5 C 70 16 153/92 H 95 Room Air (1) Hypertension Hypertension type: unspecified Qualified Code(s): I10 - Essential (primary) hypertension
[2022-03-31] MEDS: LATANOPROST 0.005% OP SOLN 2.5 ML BTL OPB SCH (20:36)
[2022-04-01] MEDS: TUBE FEEDING WATER FLUSH PEG SCH ×3 (02:50→11:39)
[2022-04-01] MEDS: AMPICILLIN/SULBACTAM SOD 3,000 MG in 0.9 % SODIUM CHLORIDE 100 ML IV SCH ×2 (04:29→11:58)
[2022-04-01] MEDS: LEVOTHYROXINE SODIUM 88 MCG TABLET PEG SCH (06:10)
[2022-04-01 06:59] LABS: BUN Creatinine Ratio 19.1 (10-20); Calcium 8.7 mg/dl (8.5-10.1); Creatinine Clr Calc Pharmacy 101.5 ml/min; Est GFR (Non-African American) 94.1 ml/min; Phosphorus 3.7 mg/dl (2.5-4.9); Potassium 3.2 mmol/L (3.5-5.1)
[2022-04-01 07:10] LABS: Hematocrit (blood only) 38.2 % (40.1-51.0); Hemoglobin 12.9 g/dl (14.0-18.0); Mean Corpuscular Hemoglobin 32.7 pg (25.0-34.0); Mean Corpuscular Hgb Conc 33.8 g/dL (32.0-36.0); Mean Platelet Volume 11.1 fL (9.4-12.4); Platelet Count 126 K/uL (130-400); RDW Coefficient of Variation 12.5 % (11.5-14.5); RDW Standard Deviation 45.1 fL (36.4-46.3); Red Blood Count 3.94 M/uL (4.63-6.08)
[2022-04-01] MEDS ORDERED: POTASSIUM CHLORIDE CRTAB 20 MEQ TABCR PO STA (07:19)
[2022-04-01] MEDS: BRIMONIDINE TARTRATE 0.2% 5ML OPB SCH (08:00)
[2022-04-01] MEDS: ATORVASTATIN 40 MG TAB PEG SCH (08:00)
[2022-04-01] MEDS: CITALOPRAM 20 MG TAB PEG SCH (08:00)
[2022-04-01] MEDS: ENOXAPARIN INJ 40 MG/0.4 ML SYR SQ SCH (08:01)
--- NOTE | 2022-04-01 13:53 | Discharge Summary ---
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 intake], alcohol use [2 beers per day via PEG tube], GERD with esophagitis, gastroparesis, COPD, HLD, hypothyroidism, HTN, esophageal stenosis presented to our ED 03/28 due to worsening cough/chills/weakness. Patient is able to respond but mostly nonverbal or non comprehensible when verbal. Hence most history taken/confirmed with patient's at bedside and also taken from chart review. Patient was here in the ED night for being sick in his stomach/dizzy and low blood pressure [patient does have labile blood pressure, on midodrine] when he was discharged. Yesterday his blood pressure again went low 60/54, oxygen saturation dropped to 91% on room air [patient does not use oxygen at home], and had chills but no temperature. Today morning when he woke up, he felt weak and fell while getting out of bed on his knees, did not hit head or lose consciousness, his saturation was 77% and pulse was 110 when the EMS arrived. Also he has been having cough since last 2 to 3 days, patient's reports that he vomited the milk which could have led to aspiration. He takes everything via PEG tube. Patient is hard of hearing and mostly noncompensable. Patient denied any pain or discomfort with nodding. Denies pain in the head or knees. Per patient's , patient is cancer free for 10 years. No personal history of blood clot. Mother with cancer of eye, 2 nephew with throat cancer and a sister with ovarian cancer. Patient quit smoking 40 years ago, drinks 2 beer every day via PEG tube, no history of recreational drug use or marijuana use. Full code. Admission Exam Per Admitting Provider GENERAL: Alert and oriented x3. NAD, on 4L NC O2. VIEJAS. HEENT: No pallor, no icterus. Pupils equal, round and reactive to light. Oral mucosa moist. NECK: No JVD, no neck masses. HEART: S1 and S2 heard. Regular rate and rhythm. No murmur, no gallop. RESPIRATORY SYSTEM: Normal AP diameter. No accessory muscle use. No wheezing, + RML crackles. ABDOMEN: Soft, bowel sounds present, nontender, no distention. PEG tube w/o s/s of infection at port of entry. CENTRAL NERVOUS SYSTEM: No facial droop. Speech is clear. Obeys simple commands. Moves extremities. EXTREMITIES: No edema, no erythema seen. Principal Diagnosis aspiration pneumonia Discharge Exam GENERAL: Alert and oriented x3. NAD, on RA. VIEJAS. HEENT: No pallor, no icterus. Pupils equal, round and reactive to light. Oral mucosa moist. NECK: No JVD, no neck masses. HEART: S1 and S2 heard. Regular rate and rhythm. No murmur, no gallop. RESPIRATORY SYSTEM: Normal AP diameter. No accessory muscle use. No wheezing, no crackles. ABDOMEN: Soft, bowel sounds present, nontender, no distention. PEG tube w/o s/s of infection at port of entry. CENTRAL NERVOUS SYSTEM: No facial droop. Speech is clear. Obeys simple commands. Moves extremities. EXTREMITIES: No edema, no erythema seen. Discharge Data Allergies Allergy/AdvReac Type Severity Reaction Status Date / Time levofloxacin Allergy Intermediate rash all Verified 01/20/22 23:48 over body sulfamethoxazole Allergy Intermediate ITCHING Verified 01/20/22 23:48 trimethoprim Allergy Intermediate ITCHING Verified 01/20/22 23:48 sertraline Allergy Mild NOSE BLEEDS Verified 01/20/22 23:48 terazosin Allergy Unknown DOES NOT Verified 01/20/22 23:48 KNOW Nitrate Analogues AdvReac Severe DROP IN BP Verified 01/20/22 23:48 Consultations 03/28/22 12:06 ED Decision to Admit Stat Ordered Studies 03/30/22 07:00 US liver Routine Hospital Course (1) Aspiration pneumonia: (2) Sepsis: (3) Elevated transaminase level: (4) Hypothyroidism: (5) Hypertension: (6) Uses feeding tube: (7) DVT prophylaxis: Plan 76-year-old gentleman is being managed for the following: Severe sepsis Likely aspiration pneumonia Patient came in with worsening cough/chills on the background of vomiting milk taken via PEG tube raising the suspicion of aspiration pneumonia. Temperature and respiratory rate elevated along with lactate elevation at presentation. WBC and Pro-Palmer elevated at admission. Admitting CXR with right middle lobe pneumonia. WBC and Pro-Palmer continues to trend down, oxygen requirement trending down to RA. Had one episode of temp 38 c overnight, continue to follow. Continue with Unasyn 03/28, to p.o./peg on DC -d/c on augmentin to complete 14 day course Aspiration precautions. Speech evaluated, appreciate recommendation. Maintain strict oral care. Dietitian for PEG tube nutrition. Continue with tube feed. Electrolytes replaced today. Mild troponin elevation: Likely secondary to sepsis, troponin trended down. Patient with no chest pain. This is demand ischemia. LFT elevation: elevated on admission but resolved. RUQ US with no acute finding. Noted to be on Lipitor and drinks alcohol regularly. Patient and made aware and counselled against alcohol use in the future. Alcohol use: watch out for withdrawal, drink 2 beers a day via peg tube. Patient and his were counseled at bedside against alcohol use in future. Last alc use the night prior to arrival per pt's . More sluggish/weak today per . DVT prophylaxis: Lovenox Full code Disposition: PT/OT KENNY nj to assist with DC planning, likely DC tomorrow. Total Time Total Time Spent Total Time Spent (In Minutes): 23 Total Time Includes: Examination of the Patient, Discharge Planning and Medication Reconciliation Discharge Plan Discharge Items Patient Disposition: Home - Self-Care Reason For Visit: FEVER Discharge Diagnosis: aspiration pneumonia Activity: Resume your previous activity Non-emergency contact: Primary Care Provider Call non-emergency contact if: you have any medication questions, your symptoms worsen and you have a fever Follow-up/Referrals: Jayden Vasques MD [Surgeon] - (Date & Time 04/17/2022 3:40 PM Provider Jayden Vasques MD Department Nephrology, [facility] ) Sanjiv Hart MD [Primary Care Provider] - (Date & Time 04/06/2022 11:20 AM Provider Shu Coffey DO Department [facility] ) Diet: Heart Healthy Addtl Attending Provider Instructions: You were admitted for fever and shortness of breath, thought to have a pneumonia from aspiration requiring more oxygen and antibiotics. You were treated with antibiotics with improvement in symptoms and oxygenation. You oxygen saturation was around 90-93% on Room air, which is adequate. You should return if oxygenation does not improve after rest and deep breaths. Continue for 10 days of antibiotics, including what you got in hospital. Please follow up with primary care doctor within a week after discharge.. Pending Studies at Discharge: No Stand-Alone Forms: My [facility], Smoking Cessation Medications and DC Order Prescriptions: New amoxicillin-pot clavulanate 875-125 mg tablet 1 tab PO BID Qty: 16 0RF Continued latanoprost 0.005 % Drops 1 drp OPB HS citalopram 20 mg tablet 20 mg Feeding Tube QAM Nutritional Drink Liquid 2 can Feeding Tube QID Rx Instructions: BOOST (2 CANS QID) brimonidine 0.2 % drops 1 drp OPB BID albuterol sulfate 90 mcg/actuation HFA aerosol inhaler 2 puff INHALATION QID PRN (Reason: Shortness Of Breath) acetaminophen [Tylenol Extra Strength] 500 mg Tablet 1,000 mg PO Q6H PRN (Reason: Pain) levothyroxine [Euthyrox] 88 mcg tablet 88 mcg feeding tube QAM atorvastatin 40 mg tablet 40 mg feeding tube HS midodrine 5 mg Tablet 10 mg feeding tube TID PRN (Reason: Hypotension) Rx Instructions: PRN systolic BP < 180 Discharge Orders: Discharge Order (Routine); Ordered 04/01/22 Ordered By: Robb Sierra Admission Data Admit Date/Time: 03/28/22 11:50 Attending Provider: Robb Sierra Admit Provider: Jaquan Guillen Primary Care Provider: Sanjiv Hart Other Providers: Jaquan Guillen Other Interventions: Discharge Summary Assessment (RN) Last Done: 04/01/22 12:22
== END 2022-04-01 13:04 | disposition home or self-care (01) | DRG 871 ==
LOC: ED 10:15 → SUATTDRO 11:50 → 2E 11:50

== ENCOUNTER 2022-04-17 05:44 | Inpatient (IN) ==
[2022-04-17 06:23] LABS: Basophils # (auto) 0.04 K/uL (0-0.2); Basophils % (auto) 0.3 %; Eosinophils # (auto) 0.06 K/uL (0-0.50); Eosinophils % (auto) 0.4 %; Hematocrit (blood only) 43.3 % (40.1-51.0); Hemoglobin 14.5 g/dl (14.0-18.0); Immature Granulocytes # (auto) 0.15 K/uL (0.00-0.02); Lymphocytes # (auto) 1.36 K/uL (1.2-3.4); Lymphocytes % (auto) 9.2 %; Mean Corpuscular Hemoglobin 33.6 pg (25.0-34.0); Mean Corpuscular Hgb Conc 33.5 g/dL (32.0-36.0); Mean Corpuscular Volume 100.2 fL (80.0-100.0); Mean Platelet Volume 10.7 fL (9.4-12.4); Monocytes # (auto) 1.01 K/uL (0.24-0.82); Monocytes % (auto) 6.8 %; Neutrophils % (auto) 82.3 %; Platelet Count 315 K/uL (130-400); RDW Coefficient of Variation 13.4 % (11.5-14.5); RDW Standard Deviation 49.1 fL (36.4-46.3); Red Blood Count 4.32 M/uL (4.63-6.08); White Blood Count 14.82 K/ul (4.8-10.8)
[2022-04-17] MEDS ORDERED: ONDANSETRON INJ 2 MG/ML 2 ML VIAL ONE (06:46)
[2022-04-17 06:51] LABS: Albumin Level 3.7 gm/dl (3.4-5.0); BUN Creatinine Ratio 16.7 (10-20); Bilirubin,Total 0.5 mg/dl (0.2-1.0); Calcium 8.9 mg/dl (8.5-10.1); Creatinine Clr Calc Pharmacy 81.4 ml/min; Est GFR (African American) 97.2 ml/min; Est GFR (Non-African American) 83.8 ml/min; Globulin 3.7 gm/dl (2.5-4.0); Potassium 3.5 mmol/L (3.5-5.1); Total Protein 7.4 gm/dl (6.0-8.3)
[2022-04-17 07:08] LABS: Appearance Urine Clear (Clear); Bilirubin Urine Negative (Negative); Blood Urine Negative (Negative); Color Urine Yellow; Glucose Urine UA Negative (Negative); Ketones Urine Negative (Negative); Leukocyte Esterase Urine Negative (Negative); Nitrite Urine Negative (Negative); Protein Urine Negative (Negative); Specific Gravity Urine 1.009 (1.000-1.030); Urobilinogen Urine Negative (Negative); pH Urine 7.5 (4.5-7.5)
[2022-04-17 07:19] LABS: Troponin I High Sensitivity 6.5 pg/ml (0-20)
[2022-04-17 07:29] LABS: Influenza A virus by PCR Negative (Neg); Influenza B virus by PCR Negative (Neg); RSV by PCR Negative (Neg); SARS CoV2 RNA(COVID-19) InHosp NEGATIVE (Negative)
[2022-04-17] MEDS ORDERED: PIPERACILLIN/TAZOBACTAM 4.5 GM/120 ML BAG IV ONE (08:10)
[2022-04-17] MEDS ORDERED: SODIUM CHLORIDE 0.9% 1000ML 1,000 ML IV ONE (08:45)
--- NOTE | 2022-04-17 08:47 | XRay Report ---
XR chest 1V portable HISTORY: Shortness of breath. COMPARISON: Chest 03/28/2022. Chest CT 04/05/2022. FINDINGS: No pneumothorax. No pleural effusions. The cardiac silhouette is normal in size. Right lowe r lobe and left basilar patchy airspace opacities persist. This likely represents a pneumonia. No new focal lung consolidations identified. No evidence for pulmonary edema. IMPRESSION: No significant change in the right lower lobe and left basilar patchy airspace opacities consistent w ith a pneumonia. ACT 112: Negative or not required by law. Electronically signed by: Rylan Archuleta M.D. 04/17/2022 8:46 AM
--- NOTE | 2022-04-17 09:37 | History & Physical Report ---
Date of Service April 17, 2022 Assessment & Plan (1) Pneumonia: (2) H/O malignant neoplasm of tonsil: (3) Lactic acidosis: (4) Uses feeding tube: (5) COPD (chronic obstructive pulmonary disease) with emphysema: Plan: - Admit to med surg with tele - Will continue treatment with Zosyn IV now. Pt finished previous antibiotic course on Augmentin x 14 days on 04/11. Finished course of prednisone yesterday on 04/16. - Follow Blood cultures, sputum culture -Consider pulmonary consult with blood-streaked sputum, hemoglobin is stable, 14.5, will monitor, if worsening cough with hemoptysis noted during admission will consult -Lactic acid is 2.4, trended down to 1.3 on recheck -Check procalcitonin -CXR reviewed showing a right lower lobe and left basilar opacity concerning for unresolved pneumonia from previous admission -Continue DuoNebs and other supportive care for treatment including Mucinex, flutter, incentive spirometry, tessalon pearls -Patient is essentially nonverbal due to history of malignant neoplasm of the tonsil, cancer free x10 years -PT/OT consults, fall precautions, from home lives with (6) Hypothyroidism: Plan: - Cont levothyroxine via PEG - TSH is 1.789 (7) Hypertension: Plan: - Noted hx of labile hypertension with needs for midodrine up to 30 mg daily - Monitor (8) Glaucoma: Plan: - Continue eye drops daily for glaucoma bilaterally (9) DVT prophylaxis: Plan: teds, scds, no chemical ppx with hemoptysis CODE: Full code - discussed with the patients at bedside in detail. 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 intake], alcohol use [2 beers per day via PEG tube], GERD with esophagitis, gastroparesis, COPD, HLD, hypothyroidism, HTN, esophageal stenosis presented to our ED today due to worsening cough and generalized fatigue. This is very similar compared to his previous admission where he was admitted from 03/28-04/01 and was treated with with IV Unasyn for aspiration pneumonia. He was then seen here in the ER on 04/05 for flank pain and pneumonia was at that time redemonstrated but he was still on Augmentin and completed a 14 day course. Today his chest x-ray shows right lower lobe and left basilar opacities on imaging which is concerning for pneumonia not being completely resolved. Patient's provides majority of the history due to his nonverbal state and being very hard of hearing. She reports that he never was back to his baseline, and that yesterday his cough became significantly worse. He is coughing more often and producing a clear mucus with some occasional blood streaking. He has never had hemoptysis before. He does not wear any O2 at baseline and was found to be hypoxic with sats at 88% upon presentation to the ER. Patient takes nothing by mouth as he has a feeding tube. Goal is to get 8 cans of nutritional drink into him per day, and the last time he had anything was around 10 PM last evening. He was unable to take any morning medications today due to feeling so poorly. Allergies Allergy/AdvReac Type Severity Reaction Status Date / Time levofloxacin Allergy Intermediate rash all Verified 01/20/22 23:48 over body sulfamethoxazole Allergy Intermediate ITCHING Verified 01/20/22 23:48 trimethoprim Allergy Intermediate ITCHING Verified 01/20/22 23:48 sertraline Allergy Mild NOSE BLEEDS Verified 01/20/22 23:48 terazosin Allergy Unknown DOES NOT Verified 01/20/22 23:48 KNOW Nitrate Analogues AdvReac Severe DROP IN BP Verified 01/20/22 23:48 Home Medications Medication Instructions Recorded Confirmed Type citalopram 20 mg tablet 20 mg feeding tube QAM 05/07/18 04/17/22 History food supplemt, lactose-reduced 2 can feeding tube QID 05/07/18 04/17/22 History (Nutritional Drink oral liquid) latanoprost 0.005 % eye drops 1 drp OPB HS 01/30/19 04/17/22 History albuterol sulfate 90 mcg/actuation 2 puff inhalation QID PRN 11/08/20 04/17/22 History aerosol inhaler Shortness Of Breath brimonidine 0.2 % eye drops 1 drp OPB BID 11/08/20 04/17/22 History acetaminophen 500 mg tablet 1,000 mg PO Q6H PRN Pain 03/06/21 04/17/22 History (Tylenol Extra Strength) levothyroxine 88 mcg tablet 88 mcg feeding tube QAM 04/06/21 04/17/22 History (Euthyrox) midodrine 5 mg tablet 10 mg feeding tube TID PRN 05/13/21 04/17/22 History Hypotension atorvastatin 40 mg tablet 40 mg feeding tube HS 06/02/21 04/17/22 History Past Med/Surg History Medical History Anxiety Aspiration pneumonia hx - CAN NOT TAKE FOOD/LIQUIDS ORALLY Asthma rare use of PRN inh Benign prostatic hyperplasia (Unknown) Blood pressure instability new issue for pt -- [facility] Cardiology manages; currently using midodrine, and nitro PRN hypo/hypertension; per , cardiac workup wnl aside from BP changes Chronic back pain COPD (chronic obstructive pulmonary disease) with emphysema Degenerative disc disease Depression Gastroparesis GERD (gastroesophageal reflux disease) Glaucoma History of COVID-19 05/2021 treated for pneumonia at [facility] Hypertension Hypothyroidism Osteoarthritis 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 Uses feeding tube Surgical History H/O esophagogastroduodenoscopy (Unknown) WITH PLACEMENT PEG TUBE History of anesthesia reaction SLOW TO WAKE UP History of neck surgery LUMPECTOMY History of radical neck dissection History of tooth extraction S/P arthroscopic knee surgery (Unknown) RT S/P colonoscopy (Unknown) Family History Brother Family history of diabetes mellitus Social History Smoking Status: Unknown if ever smoked Tobacco Type: Cigarettes Second Hand Exposure: Yes (hx); Hx Alcohol Use: No Hx Substance Use: No Preferred Language: Tajik 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 Ability: Effective Epic Manager Required: No Beliefs That Will Affect Care: None marital status: Current Living Situation: Spouse Feels Safe at Home: Yes Assistive Devices: None Review of Systems Review of Systems: Constitutional: No fever, sweats or chills, + generalized fatigue Eyes: No diplopia, no worsening or blurred vision ENT: normal hearing,+ trouble swallowing and does not take anything by mouth now, all through peg tube Respiratory: + cough, +sputum, + blood streaked sputum, +dyspnea at rest and on exertion Cardiovascular: No chest pain, tightness or palpitations Abdomen: No pain, nausea, vomiting, diarrhea or constipation Musculoskeletal: No joint pain, calf pain, swelling Neurologic: No weakness, numbness/tingling, or balance problems Psychiatric: No anxiety or depression Skin: No rash or itch Physical Exam Constitutional: WD/WN, vitals as above (chronically ill appearing M on 3L of suppl. O2) Eyes: PERRL, conjunctivae normal, anicteric sclerae ENMT: Ears: + hearing impairment; no external ear abnormality Nose: no external nose abnormality Neck: supple Respiratory: + cough Auscultation: + rhonchi (diffuse); no wheezes Cardiovascular: RRR, no murmur, no edema Chest (Breasts): Chest: normal inspection of chest Gastrointestinal (Abdomen): normal bowel sounds, soft, nontender, no hepatosplenomegaly (PEG tube present) Musculoskeletal: Head/Neck/Chest: normocephalic (moves extremities) Skin: no rashes, warm and dry Neurologic: Speech / Cognition: + abnormal speech (d/ t hx of ca s/p surg.) EOMI, PERRL, moves extremities Psychiatric: A+Ox3, euthymic affect Genitourinary: no CVA tenderness Lymphatic: no lymphedema Results & Data Results & Data ([facility]) Vital Signs (Past 12 Hours) Vital Signs Temp Pulse Pulse Resp BP BP Pulse Ox 04/17/22 07:45 68 16 119/56 L 98 04/17/22 06:28 96 04/17/22 06:15 88 L 04/17/22 05:50 37.4 C 64 24 141/78 H 96 04/17/22 05:50 O2 Del Method O2 Flow Rate 04/17/22 07:45 Nasal Cannula 3 04/17/22 06:28 Nasal Cannula 3 04/17/22 06:15 Room Air, Nasal Cannula 0 04/17/22 05:50 Room Air 04/17/22 05:50 Room Air, Nasal Cannula Laboratory Results 04/17/22 07:04 Aerobic Blood Culture - Pending Blood Anaerobic Blood Culture - Pending 04/17/22 06:06 Aerobic Blood Culture - Pending Blood Anaerobic Blood Culture - Pending 04/17/22 04/17/22 04/17/22 07:57 06:54 06:41 WBC RBC Hgb Hct MCV MCH MCHC RDW Std Deviation RDW Coeff of Judy Plt Count MPV Immature Gran % (Auto) Neut % (Auto) Lymph % (Auto) Sunflower % (Auto) Eos % (Auto) Baso % (Auto) Neut # (Auto) Lymph # (Auto) Sunflower # (Auto) Eos # (Auto) Baso # (Auto) Immature Gran # (Auto) Sodium Potassium Chloride Carbon Dioxide Anion Gap BUN Creatinine Est Cr Clr Drug Dosing Est GFR ( Amer) Est GFR (Non-Af Amer) BUN/Creatinine Ratio Glucose Lactate 1.3 Calcium Total Bilirubin AST ALT Alkaline Phosphatase Troponin I High Sens Total Protein Albumin Globulin Albumin/Globulin Ratio TSH Urine Color Yellow Urine Appearance Clear Urine pH 7.5 Ur Specific [place] 1.009 Urine Protein Negative Urine Glucose (UA) Negative Urine Ketones Negative Urine Blood Negative Urine Nitrite Negative Urine Bilirubin Negative Urine Urobilinogen Negative Ur Leukocyte Esterase Negative SARS-CoV-2 (PCR) NEGATIVE Influenza Type A (PCR) Negative Influenza Type B (PCR) Negative RSV (RT-PCR) Negative SARS-CoV-2, RNA, NAAT 04/17/22 04/17/22 04/17/22 06:10 06:06 06:06 WBC RBC Hgb Hct MCV MCH MCHC RDW Std Deviation RDW Coeff of Judy Plt Count MPV Immature Gran % (Auto) Neut % (Auto) Lymph % (Auto) Sunflower % (Auto) Eos % (Auto) Baso % (Auto) Neut # (Auto) Lymph # (Auto) Sunflower # (Auto) Eos # (Auto) Baso # (Auto) Immature Gran # (Auto) Sodium Potassium Chloride Carbon Dioxide Anion Gap BUN Creatinine Est Cr Clr Drug Dosing Est GFR ( Amer) Est GFR (Non-Af Amer) BUN/Creatinine Ratio Glucose Lactate 2.4 H* Calcium Total Bilirubin AST ALT Alkaline Phosphatase Troponin I High Sens Total Protein Albumin Globulin Albumin/Globulin Ratio TSH 1.789 Urine Color Urine Appearance Urine pH Ur Specific [place] Urine Protein Urine Glucose (UA) Urine Ketones Urine Blood Urine Nitrite Urine Bilirubin Urine Urobilinogen Ur Leukocyte Esterase SARS-CoV-2 (PCR) Influenza Type A (PCR) Influenza Type B (PCR) RSV (RT-PCR) SARS-CoV-2, RNA, NAAT NEGATIVE 04/17/22 04/17/22 06:06 06:06 WBC 14.82 H RBC 4.32 L Hgb 14.5 Hct 43.3 MCV 100.2 H MCH 33.6 MCHC 33.5 RDW Std Deviation 49.1 H RDW Coeff of Judy 13.4 Plt Count 315 MPV 10.7 Immature Gran % (Auto) 1.0 Neut % (Auto) 82.3 Lymph % (Auto) 9.2 Sunflower % (Auto) 6.8 Eos % (Auto) 0.4 Baso % (Auto) 0.3 Neut # (Auto) 12.20 H Lymph # (Auto) 1.36 Sunflower # (Auto) 1.01 H Eos # (Auto) 0.06 Baso # (Auto) 0.04 Immature Gran # (Auto) 0.15 H Sodium 138 Potassium 3.5 Chloride 101 Carbon Dioxide 31 Anion Gap 6 BUN 15 Creatinine 0.90 Est Cr Clr Drug Dosing 81.4 Est GFR ( Amer) 97.2 Est GFR (Non-Af Amer) 83.8 BUN/Creatinine Ratio 16.7 Glucose 103 H Lactate Calcium 8.9 Total Bilirubin 0.5 AST 65 H ALT 128 H Alkaline Phosphatase 74 Troponin I High Sens 6.5 D Total Protein 7.4 Albumin 3.7 Globulin 3.7 Albumin/Globulin Ratio 1.0 TSH Urine Color Urine Appearance Urine pH Ur Specific [place] Urine Protein Urine Glucose (UA) Urine Ketones Urine Blood Urine Nitrite Urine Bilirubin Urine Urobilinogen Ur Leukocyte Esterase SARS-CoV-2 (PCR) Influenza Type A (PCR) Influenza Type B (PCR) RSV (RT-PCR) SARS-CoV-2, RNA, NAAT Diagnostic Findings Chest X-Ray 04/17/22 06:03 XR chest 1V portable HISTORY: Shortness of breath. COMPARISON: Chest 03/28/2022. Chest CT 04/05/2022. FINDINGS: No pneumothorax. No pleural effusions. The cardiac silhouette is normal in size. Right lower lobe and left basilar patchy airspace opacities persist. This likely represents a pneumonia. No new focal lung consolidations identified. No evidence for pulmonary edema. IMPRESSION: No significant change in the right lower lobe and left basilar patchy airspace opacities consistent with a pneumonia. ACT 112: Negative or not required by law. Electronically signed by: Rylan Archuleta M.D. 04/17/2022 8:46 AM ECG Additional Comments: 17-APR-2022 06:20:49 [facility]-EDSTAT ROUTINE RETRIEVAL Normal sinus rhythm Left axis deviation Abnormal ECG When compared with ECG of 28-MAR-2022 17:44, No significant change was found 25mm/s10mm/[id number] 241CID: 3Unconfirmed Vent. rate 76 BPM LA interval 146 ms QRS duration 90 ms QT/QTc 380/427 ms Code Status & VTE Plan Code Status Full code- discussed with at bedside Supervising Physician Co-Signing Physician Notes Pt seen and examined by me, care coordinated w/ Karyn King, pls see her note above for further detail. Pt is a 76 year-old M w/ hx of malignant neoplasm of tonsil status post radical dissection of right side of neck/radiation to head and neck region/PEG tube placement, GERD with esophagitis, gastroparesis, COPD, HLD, hypothyroidism, HTN, esophageal stenosis presents w/worsening cough, generalized fatigue, chills this AM. Pt was recently admitted from 03/28-04/01 and treated for aspiration pneumonia. Today his chest x-ray shows right lower lobe and left basilar opacities , c/w previous diagnosis. Pt is coughing more often and producing a clear sputum with some occasional blood streaking. He does not wear any suppl. O2 at baseline and was found to be hypoxic with sats at 88% upon presentation to the ER. Patient is currently lying in bed, in no acute distress, he is alert oriented, using supplemental oxygen 3 L in the ED, coughs. Rhonchus sounds on physical exam. is providing most of the history. Patient was started on IV Zosyn in the ED, will continue. Add Mucinex flutter valve incentive spirometer. Obtain sputum culture. Blood cultures obtained in ED already. If not improving, consider pulmonary consult. MD Rasheeda (1) Hypertension Hypertension type: unspecified Qualified Code(s): I10 - Essential (primary) hypertension
--- NOTE | 2022-04-17 09:58 | Emergency Department Note ---
Impression & Plan [facility] Provider Note NAME: DEMETRIO WELSH AGE: 76 SEX: M ARRIVES VIA: Walk-In INFORMANT: Patient's ED PROVIDER(S): Gabriella Weaver DO CHIEF COMPLAINT: Increasing cough PLAN: Disposition: Admit to the [facility] Condition: Stable MEDICAL DECISION MAKING: This is a 76-year-old male patient with extensive past medical history who recently was discharged after an episode of aspiration pneumonia. He presents back to the emergency department with increasing shortness of breath, cough and chills that began again yesterday. Patient has an elevated white blood cell count despite recently finishing up antibiotics and going off steroids yesterday. [facility] and [facility] will evaluate for further management. Triage Nursing notes reviewed and agree with them. Additional history obtained from the patient's is at the bedside and speaks mostly for the patient as the patient is difficult to understand after having significant surgery status post tonsillar cancer Prior medical records reviewed Vital Signs: reviewed and unremarkable except for an episode of hypoxia after the patient vomited. Differential diagnosis: Pneumonia, sepsis, COVID-19, reaction of steroids ER treatment provided: IV normal saline hydration, IV Zosyn Diagnostics interpreted by me: ECG: Normal sinus rhythm at a rate of [address] segment elevation or signs of ischemia. There is no ectopy. Cardiac Monitoring: Normal sinus rhythm at 72 Laboratory studies: See below Imaging studies: As per radiology Portable chest x-ray: See radiology report HPI: 76/M arrives for evaluation of cough and shortness of breath. The patient presents with increasing cough and shortness of breath since yesterday. The patient had been admitted to the hospital for an episode of aspiration pneumoni a. He finished up his steroids yesterday and his antibiotics approximately 1 week ago. The explains that he was doing okay until yesterday when his cough returned and he woke up around 5 AM this morning complaining of some pain in his chest and back and had a significant cough. He describes as bronchitis and stated that he needed to go back to the hospital. ROS: See above HPI for pertinent positives & negatives. A total of 10 systems reviewed and were otherwise negative. PAST MEDICAL HISTORY:See Below PAST SURGICAL HISTORY:See Below FAMILY HISTORY:See Below SOCIAL HISTORY:See Below HOME MEDICATIONS:See list ALLERGIES:See list VITALS:See Below PHYSICAL EXAMINATION: General: The patient appears slightly lethargic but is in no acute respiratory distress HEENT: Head - normocephalic and atraumatic. Pupils are equal, round, and reactive to light. Extraocular eye muscles are intact, and sclera are anicteric. Nose - moist nasal mucosa without discharge. Mouth - moist buccal mucosa. Oropharynx is nonerythematous and there is no tonsillar exudate or edema noted. Neck: Supple; postsurgical changes Heart: Regular rate and rhythm. There is a normal S1 and S2 with no murmurs, clicks, or gallops appreciated. Lungs: Clear to auscultation bilaterally with no wheezes, rales, or rhonchi. Abdomen: Soft, completely nontender, nondistended, with good bowel sounds. There are no palpable pulsatile masses or hepatosplenomegaly. There is no guarding, rigidity, or rebound noted. Extremities: No evidence of cyanosis, clubbing, or edema. There are easily palpable peripheral pulses. Skin: warm and dry with poor turgor and no rashes. ED COURSE: Times/Reassessments: 630: The patient was evaluated in room C9. An IV lock was initiated. A septic protocol was performed. An order was placed for continuous cardiac monitoring. The patient was in a normal sinus rhythm at a rate of 72. A twelve-lead EKG was obtained as described above. A portable chest x-ray was performed. The patient was bolused with IV normal saline solution as he had an episode of hypotension however this is not unusual for him to have an episode of hypotension and then hypertension. Patient was treated with a dose of IV Zosyn. I discussed the case with the [facility] Hospitalist. I kept the patient's abreast of the situation. Gabriella Weaver DO Past Med/Surg History Medical History Anxiety Aspiration pneumonia hx - CAN NOT TAKE FOOD/LIQUIDS ORALLY Asthma rare use of PRN inh Benign prostatic hyperplasia (Unknown) Blood pressure instability new issue for pt -- S Cardiology manages; currently using midodrine, and nitro PRN hypo/hypertension; per , cardiac workup wnl aside from BP changes Chronic back pain COPD (chronic obstructive pulmonary disease) with emphysema Degenerative disc disease Depression Gastroparesis GERD (gastroesophageal reflux disease) Glaucoma History of COVID-19 05/2021 treated for pneumonia at [facility] Hypertension Hypothyroidism Osteoarthritis 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 Uses feeding tube Surgical History H/O esophagogastroduodenoscopy (Unknown) WITH PLACEMENT PEG TUBE History of anesthesia reaction SLOW TO WAKE UP History of neck surgery LUMPECTOMY History of radical neck dissection History of tooth extraction S/P arthroscopic knee surgery (Unknown) RT S/P colonoscopy (Unknown) Family History Brother Family history of diabetes mellitus Social History Smoking Status: Former smoker Tobacco Type: Cigarettes Second Hand Exposure: Yes (hx); Hx Alcohol Use: No Hx Substance Use: No Preferred Language: Turkish 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 Ability: Unable [employer] Required: No Beliefs That Will Affect Care: None marital status: Current Living Situation: Spouse Feels Safe at Home: Yes Safety Concerns: Feels Safe At This Time Assistive Devices: None Allergies Allergies Allergy/AdvReac Type Severity Reaction Status Date / Time levofloxacin Allergy Intermediate rash all Verified 01/20/22 23:48 over body sulfamethoxazole Allergy Intermediate ITCHING Verified 01/20/22 23:48 trimethoprim Allergy Intermediate ITCHING Verified 01/20/22 23:48 sertraline Allergy Mild NOSE BLEEDS Verified 01/20/22 23:48 terazosin Allergy Unknown DOES NOT Verified 01/20/22 23:48 KNOW Nitrate Analogues AdvReac Severe DROP IN BP Verified 01/20/22 23:48 Home Meds Home Medications Medication Instructions Recorded Confirmed citalopram 20 mg tablet 20 mg feeding tube QAM 05/07/18 04/17/22 food supplemt, lactose-reduced 2 can feeding tube QID 05/07/18 04/17/22 (Nutritional Drink oral liquid) latanoprost 0.005 % eye drops 1 drp OPB HS 01/30/19 04/17/22 albuterol sulfate 90 mcg/actuation 2 puff inhalation QID PRN 11/08/20 04/17/22 aerosol inhaler Shortness Of Breath brimonidine 0.2 % eye drops 1 drp OPB BID 11/08/20 04/17/22 acetaminophen 500 mg tablet 1,000 mg PO Q6H PRN Pain 03/06/21 04/17/22 (Tylenol Extra Strength) levothyroxine 88 mcg tablet 88 mcg feeding tube QAM 04/06/21 04/17/22 (Euthyrox) midodrine 5 mg tablet 10 mg feeding tube TID PRN 05/13/21 04/17/22 Hypotension atorvastatin 40 mg tablet 40 mg feeding tube HS 06/02/21 04/17/22 Results & Data (ED) Vital Signs Vital Signs - 24 hr 04/17/22 05:50 04/17/22 05:50 04/17/22 06:15 Temperature 37.4 C Temperature Source Oral Pulse Rate 64 Pulse Rate [Apical] Respiratory Rate 24 Respiratory Effort / Characteristics Spontaneous Respiratory Depth Normal Blood Pressure 141/78 H Blood Pressure [Left Arm] Blood Pressure Mean 99 Blood Pressure Mean [Left Arm] Pulse Oximetry 96 88 L Oxygen Delivery Method Room Air Nasal Cannula Room Air Room Air Nasal Cannula Oxygen Flow Rate 0 Sepsis Recent Fever Within 48 Hours No Sepsis New/Unexplained Change in Mental Status N/A Sepsis Action Taken by Nursing No Action Required Oxygen Flow Rate - Titration 3 Pulse Oximetry Post Tiitration 94 04/17/22 06:28 04/17/22 07:45 04/17/22 09:00 Temperature Temperature Source Pulse Rate Pulse Rate [Apical] 68 69 Respiratory Rate 16 18 Respiratory Effort / Characteristics Respiratory Depth Blood Pressure Blood Pressure [Left Arm] 119/56 L Blood Pressure Mean Blood Pressure Mean [Left Arm] 77 Pulse Oximetry 96 98 95 Oxygen Delivery Method Nasal Cannula Nasal Cannula Nasal Cannula Oxygen Flow Rate 3 3 3 Sepsis Recent Fever Within 48 Hours Sepsis New/Unexplained Change in Mental Status Sepsis Action Taken by Nursing Oxygen Flow Rate - Titration Pulse Oximetry Post Tiitration Laboratory Data Result diagrams: 04/17/22 06:06 04/17/22 06:06 Lab Results 04/17/22 04/17/22 04/17/22 Range/Units 06:06 06:06 06:06 WBC 14.82 H (4.8-10.8) K/ul RBC 4.32 L (4.63-6.08) M/uL Hgb 14.5 (14.0-18.0) g/dl Hct 43.3 (40.1-51.0) % MCV 100.2 H (80.0-100.0) fL MCH 33.6 (25.0-34.0) pg MCHC 33.5 (32.0-36.0) g/dL RDW Std Deviation 49.1 H (36.4-46.3) fL RDW Coeff of Judy 13.4 (11.5-14.5) % Plt Count 315 (130-400) K/uL MPV 10.7 (9.4-12.4) fL Immature Gran % (Auto) 1.0 % Neut % (Auto) 82.3 % Lymph % (Auto) 9.2 % Howell % (Auto) 6.8 % Eos % (Auto) 0.4 % Baso % (Auto) 0.3 % Neut # (Auto) 12.20 H (1.4-6.5) K/uL Lymph # (Auto) 1.36 (1.2-3.4) K/uL Howell # (Auto) 1.01 H (0.24-0.82) K/uL Eos # (Auto) 0.06 (0-0.50) K/uL Baso # (Auto) 0.04 (0-0.2) K/uL Immature Gran # (Auto) 0.15 H (0.00-0.02) K/uL Sodium 138 (136-145) mmol/L Potassium 3.5 (3.5-5.1) mmol/L Chloride 101 (98-107) mmol/L Carbon Dioxide 31 (21-32) mmol/L Anion Gap 6 (3-11) BUN 15 (6-23) mg/dl Creatinine 0.90 (0.6-1.4) mg/dl Est Cr Clr Drug Dosing 81.4 ml/min Est GFR ( Amer) 97.2 ml/min Est GFR (Non-Af Amer) 83.8 ml/min BUN/Creatinine Ratio 16.7 (10-20) Glucose 103 H (70-99(Fasting)) mg/dl Lactate (0.4-2.0) mmol/L Calcium 8.9 (8.5-10.1) mg/dl Total Bilirubin 0.5 (0.2-1.0) mg/dl AST 65 H (13-39) U/L ALT 128 H (7-52) U/L Alkaline Phosphatase 74 (34-104) U/L Troponin I High Sens 6.5 D (0-20) pg/ml Total Protein 7.4 (6.0-8.3) gm/dl Albumin 3.7 (3.4-5.0) gm/dl Globulin 3.7 (2.5-4.0) gm/dl Albumin/Globulin Ratio 1.0 (0.9-2) Procalcitonin (0-0.5) ng/ml TSH 1.789 (0.300-4.500) uIu/ml Urine Color Urine Appearance (Clear) Urine pH (4.5-7.5) Ur Specific Mehama (1.000-1.030) Urine Protein (Negative) Urine Glucose (UA) (Negative) Urine Ketones (Negative) Urine Blood (Negative) Urine Nitrite (Negative) Urine Bilirubin (Negative) Urine Urobilinogen (Negative) Ur Leukocyte Esterase (Negative) SARS-CoV-2 (PCR) (Negative) Influenza Type A (PCR) (Neg) Influenza Type B (PCR) (Neg) RSV (RT-PCR) (Neg) SARS-CoV-2, RNA, NAAT (NEGATIVE) 04/17/22 04/17/22 04/17/22 Range/Units 06:06 06:06 06:10 WBC (4.8-10.8) K/ul RBC (4.63-6.08) M/uL Hgb (14.0-18.0) g/dl Hct (40.1-51.0) % MCV (80.0-100.0) fL MCH (25.0-34.0) pg MCHC (32.0-36.0) g/dL RDW Std Deviation (36.4-46.3) fL RDW Coeff of Judy (11.5-14.5) % Plt Count (130-400) K/uL MPV (9.4-12.4) fL Immature Gran % (Auto) % Neut % (Auto) % Lymph % (Auto) % Howell % (Auto) % Eos % (Auto) % Baso % (Auto) % Neut # (Auto) (1.4-6.5) K/uL Lymph # (Auto) (1.2-3.4) K/uL Howell # (Auto) (0.24-0.82) K/uL Eos # (Auto) (0-0.50) K/uL Baso # (Auto) (0-0.2) K/uL Immature Gran # (Auto) (0.00-0.02) K/uL Sodium (136-145) mmol/L Potassium (3.5-5.1) mmol/L Chloride (98-107) mmol/L Carbon Dioxide (21-32) mmol/L Anion Gap (3-11) BUN (6-23) mg/dl Creatinine (0.6-1.4) mg/dl Est Cr Clr Drug Dosing ml/min Est GFR ( Amer) ml/min Est GFR (Non-Af Amer) ml/min BUN/Creatinine Ratio (10-20) Glucose (70-99(Fasting)) mg/dl Lactate 2.4 H* (0.4-2.0) mmol/L Calcium (8.5-10.1) mg/dl Total Bilirubin (0.2-1.0) mg/dl AST (13-39) U/L ALT (7-52) U/L Alkaline Phosphatase (34-104) U/L Troponin I High Sens (0-20) pg/ml Total Protein (6.0-8.3) gm/dl Albumin (3.4-5.0) gm/dl Globulin (2.5-4.0) gm/dl Albumin/Globulin Ratio (0.9-2) Procalcitonin < 0.05 (0-0.5) ng/ml TSH (0.300-4.500) uIu/ml Urine Color Urine Appearance (Clear) Urine pH (4.5-7.5) Ur Specific Mehama (1.000-1.030) Urine Protein (Negative) Urine Glucose (UA) (Negative) Urine Ketones (Negative) Urine Blood (Negative) Urine Nitrite (Negative) Urine Bilirubin (Negative) Urine Urobilinogen (Negative) Ur Leukocyte Esterase (Negative) SARS-CoV-2 (PCR) (Negative) Influenza Type A (PCR) (Neg) Influenza Type B (PCR) (Neg) RSV (RT-PCR) (Neg) SARS-CoV-2, RNA, NAAT NEGATIVE (NEGATIVE) 04/17/22 04/17/22 04/17/22 Range/Units 06:41 06:54 07:57 WBC (4.8-10.8) K/ul RBC (4.63-6.08) M/uL Hgb (14.0-18.0) g/dl Hct (40.1-51.0) % MCV (80.0-100.0) fL MCH (25.0-34.0) pg MCHC (32.0-36.0) g/dL RDW Std Deviation (36.4-46.3) fL RDW Coeff of Judy (11.5-14.5) % Plt Count (130-400) K/uL MPV (9.4-12.4) fL Immature Gran % (Auto) % Neut % (Auto) % Lymph % (Auto) % Howell % (Auto) % Eos % (Auto) % Baso % (Auto) % Neut # (Auto) (1.4-6.5) K/uL Lymph # (Auto) (1.2-3.4) K/uL Howell # (Auto) (0.24-0.82) K/uL Eos # (Auto) (0-0.50) K/uL Baso # (Auto) (0-0.2) K/uL Immature Gran # (Auto) (0.00-0.02) K/uL Sodium (136-145) mmol/L Potassium (3.5-5.1) mmol/L Chloride (98-107) mmol/L Carbon Dioxide (21-32) mmol/L Anion Gap (3-11) BUN (6-23) mg/dl Creatinine (0.6-1.4) mg/dl Est Cr Clr Drug Dosing ml/min Est GFR ( Amer) ml/min Est GFR (Non-Af Amer) ml/min BUN/Creatinine Ratio (10-20) Glucose (70-99(Fasting)) mg/dl Lactate 1.3 (0.4-2.0) mmol/L Calcium (8.5-10.1) mg/dl Total Bilirubin (0.2-1.0) mg/dl AST (13-39) U/L ALT (7-52) U/L Alkaline Phosphatase (34-104) U/L Troponin I High Sens (0-20) pg/ml Total Protein (6.0-8.3) gm/dl Albumin (3.4-5.0) gm/dl Globulin (2.5-4.0) gm/dl Albumin/Globulin Ratio (0.9-2) Procalcitonin (0-0.5) ng/ml TSH (0.300-4.500) uIu/ml Urine Color Yellow Urine Appearance Clear (Clear) Urine pH 7.5 (4.5-7.5) Ur Specific Mehama 1.009 (1.000-1.030) Urine Protein Negative (Negative) Urine Glucose (UA) Negative (Negative) Urine Ketones Negative (Negative) Urine Blood Negative (Negative) Urine Nitrite Negative (Negative) Urine Bilirubin Negative (Negative) Urine Urobilinogen Negative (Negative) Ur Leukocyte Esterase Negative (Negative) SARS-CoV-2 (PCR) NEGATIVE (Negative) Influenza Type A (PCR) Negative (Neg) Influenza Type B (PCR) Negative (Neg) RSV (RT-PCR) Negative (Neg) SARS-CoV-2, RNA, NAAT (NEGATIVE) Administered Medications Brimonidine Tartrate (Brimonidine Tartrate 0.2% 5ml) 1 drops OPB BID [facility] Stop: 05/17/22 11:54 Last Admin: 04/17/22 15:40 Dose: 1 drops Documented By: MAGALY Citalopram Hydrobromide (Citalopram 20 Mg Tab) 20 mg PEG QAM [facility] Stop: 05/17/22 11:54 Last Admin: 04/17/22 15:36 Dose: 20 mg Documented By: MAGALY Enteral Nutritional Formula (Peptamen 1.5 Palmer 1,000 Ml Bag) 360 ml PEG 0800,12 00,1600,2000 [facility]; Protocol Stop: 05/17/22 15:59 Last Admin: 04/17/22 15:48 Dose: 360 ml Documented By: MAGALY Piperacillin Sod/Tazobactam (Sod 4.5 gm/ Dextrose) 120 mls @ 30 mls/hr IV Q8H [facility]; Protocol Stop: 04/24/22 13:59 Last Admin: 04/17/22 15:41 Dose: 30 mls/hr Documented By: MAGALY Sterile Water (Tube Feeding Water Flush) 120 ml GT 0800,1200,1600,2000 [facility] Stop: 05/17/22 15:59 Last Admin: 04/17/22 15:48 Dose: 120 ml Documented By: MAGALY Discontinued Medications Benzonatate (Benzonatate 100 Mg Capsule) 100 mg PO TID GIRISH Stop: 05/17/22 13:59 Last Admin: 04/17/22 15:24 Dose: Not Given Documented By: MAGALY Piperacillin Sod/Tazobactam Sod (Zosyn) 4.5 gm in 120 mls @ 240 mls/hr IV NOW ONE Stop: 04/17/22 08:39 Last Infusion: 04/17/22 09:37 Dose: 0 mls/hr Documented By: Admin: 04/17/22 09:04 Dose: 240 mls/hr Documented By: OL Sodium Chloride (Nss 1000ml) 1,000 mls @ 999 mls/hr IV .Q1H1M ONE Stop: 04/17/22 09:45 Last Infusion: 04/17/22 09:57 Dose: 0 mls/hr Documented By: Admin: 04/17/22 08:53 Dose: 999 mls/hr Documented By: NANETTE Ondansetron HCl (Ondansetron Inj 2 Mg/Ml 2 Ml Vial) Confirm Administered Dose 4 mg .ROUTE .STK-MED ONE Stop: 04/17/22 06:47 Last Admin: 04/17/22 06:57 Dose: 4 mg Documented By: ANA Imaging Data Radiologist's Impression: Chest X-Ray 04/17/22 06:03 XR chest 1V portable HISTORY: Shortness of breath. COMPARISON: Chest 03/28/2022. Chest CT 04/05/2022. FINDINGS: No pneumothorax. No pleural effusions. The cardiac silhouette is normal in size. Right lower lobe and left basilar patchy airspace opacities persist. This likely represents a pneumonia. No new focal lung consolidations identified. No evidence for pulmonary edema. IMPRESSION: No significant change in the right lower lobe and left basilar patchy airspace opacities consistent with a pneumonia. ACT 112: Negative or not required by law. Electronically signed by: Rylan Archuleta M.D. 04/17/2022 8:46 AM Discharge Plan Visit Data Chief Complaint: Respiratory Problems Stated Complaint: COUGH,HARD TO BREATHE,FEVER ED Provider: Gabriella Weaver Discharge Problem: Pneumonia Patient Disposition: Admitted As Inpatient Discharge Instructions Interventions: ED Discharge Assessment Last Done: 04/17/22 11:56 : Pneumonia Qualifiers: Pneumonia type: due to unspecified organism Laterality: right Lung location: lower lobe of lung Qualified Code(s): J18.9 - Pneumonia, unspecified organism
[2022-04-17] MEDS ORDERED: FOOD SUPPLEMT LACTOSE REDUCED Feeding Tube SCH (11:55)
[2022-04-17] MEDS ORDERED: ALBUTEROL HFA 8 GM INHALER INH PRN (11:55)
[2022-04-17] MEDS ORDERED: ACETAMINOPHEN 325 MG TAB PO PRN (11:55)
[2022-04-17] MEDS ORDERED: BENZONATATE 100 MG CAPSULE PO SCH (14:00)
[2022-04-17] MEDS ORDERED: guaiFENesin SUGAR FREE 100 MG/5 ML UDC GT PRN (14:51)
[2022-04-17] MEDS: CITALOPRAM 20 MG TAB PEG SCH (15:36)
[2022-04-17] MEDS: BRIMONIDINE TARTRATE 0.2% 5ML OPB SCH ×2 (15:40→20:56)
[2022-04-17] MEDS: PIPERACILLIN/TAZOBACTAM 4.5 GM in DEXTROSE 5% 100 ML IV SCH ×2 (15:41→21:37)
[2022-04-17] MEDS: PEPTAMEN 1.5 CAL 1,000 ML BAG PEG SCH ×2 (15:48→19:42)
[2022-04-17] MEDS: TUBE FEEDING WATER FLUSH GT SCH ×2 (15:48→19:43)
[2022-04-17] MEDS ORDERED: guaiFENesin 600 MG TABCR PO SCH (21:00)
[2022-04-17] MEDS ORDERED: ALUMINUM/MAGNESIUM/SIMETH (MAALOX MAX) 30 ML UDC PEG STA (21:10)
[2022-04-17] MEDS ORDERED: FAMOTIDINE 20 MG in SYRINGE 3 ML IV ONE (21:15)
--- NOTE | 2022-04-17 21:28 | Electrocardiogram Report ---
Test Reason : Blood Pressure : / mmHG Vent. Rate : 076 BPM Atrial Rate : 076 BPM P-R Int : 146 ms QRS Dur : 090 ms QT Int : 380 ms P-R-T Axes : 053 -34 026 degrees QTc Int : 427 ms Normal sinus rhythm Left axis deviation Abnormal ECG When compared with ECG of 28-MAR-2022 17:44, No significant change was found Confirmed by Ian Álvarez ([id number]) on 04/17/2022 9:28:03 PM Referred By: Confirmed By:Ian Álvarez
[2022-04-17] MEDS: LATANOPROST 0.005% OP SOLN 2.5 ML BTL OPB SCH (21:36)
[2022-04-17] MEDS ORDERED: SODIUM CHLORIDE 0.9% 500 ML IV SCH (23:00)
[2022-04-18] MEDS: PIPERACILLIN/TAZOBACTAM 4.5 GM in DEXTROSE 5% 100 ML IV SCH ×3 (05:46→21:24)
[2022-04-18] MEDS: LEVOTHYROXINE SODIUM 88 MCG TABLET PEG SCH (06:01)
[2022-04-18 06:35] LABS: Hematocrit (blood only) 34.8 % (40.1-51.0); Hemoglobin 11.5 g/dl (14.0-18.0); Mean Corpuscular Hemoglobin 33.3 pg (25.0-34.0); Mean Corpuscular Volume 100.9 fL (80.0-100.0); Mean Platelet Volume 11.5 fL (9.4-12.4); Platelet Count 196 K/uL (130-400); RDW Coefficient of Variation 14.1 % (11.5-14.5); RDW Standard Deviation 51.3 fL (36.4-46.3); Red Blood Count 3.45 M/uL (4.63-6.08); White Blood Count 16.97 K/ul (4.8-10.8)
[2022-04-18 07:42] LABS: Albumin Level 2.9 gm/dl (3.4-5.0); Bilirubin,Total 0.8 mg/dl (0.2-1.0); Globulin 2.9 gm/dl (2.5-4.0); Potassium 4.4 mmol/L (3.5-5.1); Total Protein 5.8 gm/dl (6.0-8.3)
[2022-04-18] MEDS: BRIMONIDINE TARTRATE 0.2% 5ML OPB SCH ×2 (07:54→20:33)
[2022-04-18] MEDS: PEPTAMEN 1.5 CAL 1,000 ML BAG PEG SCH ×4 (07:54→20:34)
[2022-04-18] MEDS: TUBE FEEDING WATER FLUSH GT SCH ×4 (07:54→20:34)
[2022-04-18] MEDS: CITALOPRAM 20 MG TAB PEG SCH (07:55)
[2022-04-18 08:00] LABS: BUN Creatinine Ratio 22.2 (10-20); Est GFR (African American) 86.6 ml/min; Est GFR (Non-African American) 74.7 ml/min
--- NOTE | 2022-04-18 11:38 | Hospitalist Progress Note ---
Date of Service April 18, 2022 Assessment & Plan (1) Pneumonia: (2) H/O malignant neoplasm of tonsil: (3) Lactic acidosis: (4) Uses feeding tube: (5) COPD (chronic obstructive pulmonary disease) with emphysema: Plan: Recently admitted from 03/27-04/05 with aspiration pneumonia. Completed 14 days of Augmentin on 04/11. Chest x-ray on admission shows similar infiltrate in right lower lobe and left basilar side. Pro-Palmer within normal limits. WBC elevated to 16.9; likely due to the effects of steroids. Finished course on 04/16. Blood culture negative. Plan; Continue on Zosyn for now. Obtain MRSA nasal. Will consider adding doxycycline/vancomycin if positive. --DuoNebs every 12 hours along with hypertonic saline for pulmonary toileting. Use duo nebs after hypertonic saline. --Supplemental oxygen as needed to keep saturation above 92% --Aspiration precautions. --Gram stain and culture awaited to be sent (6) Hypothyroidism: Plan: - Cont levothyroxine via PEG - TSH is 1.789 (7) Hypertension: Plan: - Noted hx of labile hypertension with needs for midodrine up to 30 mg daily - Monitor (8) Glaucoma: Plan: - Continue eye drops daily for glaucoma bilaterally (9) DVT prophylaxis: Plan: teds, scds, no chemical ppx with hemoptysis CODE: Full code Dispo: From home, likely to remain in the hospital for 1-2 days based on clinical response. Admission and Anticipated Discharge Date Admission Date: April 17, 2022 Subjective Patient seen and examined at bedside. He is comfortably sitting up on the bed; not in any distress. He is saturating well in room air. Review of Systems Review of Systems: All systems reviewed & are unremarkable except as noted in Subjective Physical Exam Physical Exam: Constitutional: Awake. Comfortable; not in any distress. Neck: trachea midline, no thyromegaly normal visual inspection Respiratory: Bilateral vesicular breath sounds; no additional breath sound heard Cardiovascular: RRR, no murmur, no edema Vessels: no JVD or carotid bruit Chest: normal inspection of chest Abdomen: Soft, nontender. PEG tube in place. Musculoskeletal: no cyanosis or clubbing, extremities motor strength 5/5 Skin: no rashes, warm and dry normal turgor Neurologic: PERRL, EOMI, accommodation nl, no face palsy, no dysarthria CN's II- XI intact bilaterally and moves all extremities Psychiatric: A+Ox3, euthymic affect Lymphatic: no cervical or axillary lymphadenopathy : deferred Results & Data Results & Data ([facility]) Vital Signs (Past 12 Hours) Vital Signs Temp Pulse Pulse Resp BP Pulse Ox O2 Del Method 04/18/22 07:00 Room Air 04/18/22 07:58 36.9 C 57 L 18 107/65 94 Room Air 04/18/22 07:00 58 L 04/18/22 03:00 36.7 C 59 L 18 89/54 L 97 Nasal Cannula 04/18/22 01:43 54 L 96/56 L 97 Room Air O2 Flow Rate 04/18/22 07:00 04/18/22 07:58 04/18/22 07:00 04/18/22 03:00 2 04/18/22 01:43 Laboratory Results Laboratory Results WBC 16.97 K/ul (4.8-10.8) H 04/18/22 05:20 RBC 3.45 M/uL (4.63-6.08) L 04/18/22 05:20 Hgb 11.5 g/dl (14.0-18.0) L D 04/18/22 05:20 Hct 34.8 % (40.1-51.0) L 04/18/22 05:20 MCV 100.9 fL (80.0-100.0) H 04/18/22 05:20 MCH 33.3 pg (25.0-34.0) 04/18/22 05:20 MCHC 33.0 g/dL (32.0-36.0) 04/18/22 05:20 RDW Std Deviation 51.3 fL (36.4-46.3) H 04/18/22 05:20 RDW Coeff of Judy 14.1 % (11.5-14.5) 04/18/22 05:20 Plt Count 196 K/uL (130-400) 04/18/22 05:20 MPV 11.5 fL (9.4-12.4) 04/18/22 05:20 Immature Gran % (Auto) 1.0 % 04/17/22 06:06 Neut % (Auto) 82.3 % 04/17/22 06:06 Lymph % (Auto) 9.2 % 04/17/22 06:06 [place] % (Auto) 6.8 % 04/17/22 06:06 Eos % (Auto) 0.4 % 04/17/22 06:06 Baso % (Auto) 0.3 % 04/17/22 06:06 Neut # (Auto) 12.20 K/uL (1.4-6.5) H 04/17/22 06:06 Lymph # (Auto) 1.36 K/uL (1.2-3.4) 04/17/22 06:06 [place] # (Auto) 1.01 K/uL (0.24-0.82) H 04/17/22 06:06 Eos # (Auto) 0.06 K/uL (0-0.50) 04/17/22 06:06 Baso # (Auto) 0.04 K/uL (0-0.2) 04/17/22 06:06 Immature Gran # (Auto) 0.15 K/uL (0.00-0.02) H 04/17/22 06:06 Sodium 138 mmol/L (136-145) 04/18/22 05:20 Potassium 4.4 mmol/L (3.5-5.1) D 04/18/22 05:20 Chloride 103 mmol/L (98-107) 04/18/22 05:20 Carbon Dioxide 32 mmol/L (21-32) 04/18/22 05:20 Anion Gap 3 (3-11) 04/18/22 05:20 BUN 22 mg/dl (6-23) 04/18/22 05:20 Creatinine 0.99 mg/dl (0.6-1.4) 04/18/22 05:20 Est Cr Clr Drug Dosing 74.0 ml/min 04/18/22 05:20 Est GFR ( Amer) 86.6 ml/min 04/18/22 05:20 Est GFR (Non-Af Amer) 74.7 ml/min 04/18/22 05:20 BUN/Creatinine Ratio 22.2 (10-20) H 04/18/22 05:20 Glucose 95 mg/dl (70-99(Fasting)) 04/18/22 05:20 Lactate 1.3 mmol/L (0.4-2.0) 04/17/22 07:57 Calcium 8.0 mg/dl (8.5-10.1) L 04/18/22 05:20 Total Bilirubin 0.8 mg/dl (0.2-1.0) 04/18/22 05:20 AST 28 U/L (13-39) 04/18/22 05:20 ALT 69 U/L (7-52) H 04/18/22 05:20 Alkaline Phosphatase 54 U/L (34-104) 04/18/22 05:20 Troponin I High Sens 6.5 pg/ml (0-20) D 04/17/22 06:06 Total Protein 5.8 gm/dl (6.0-8.3) L D 04/18/22 05:20 Albumin 2.9 gm/dl (3.4-5.0) L 04/18/22 05:20 Globulin 2.9 gm/dl (2.5-4.0) 04/18/22 05:20 Albumin/Globulin Ratio 1.0 (0.9-2) 04/18/22 05:20 Procalcitonin < 0.05 ng/ml (0-0.5) 04/17/22 06:06 TSH 1.789 uIu/ml (0.300-4.500) 04/17/22 06:06 Urine Color Yellow 04/17/22 06:54 Urine Appearance Clear (Clear) 04/17/22 06:54 Urine pH 7.5 (4.5-7.5) 04/17/22 06:54 Ur Specific [place] 1.009 (1.000-1.030) 04/17/22 06:54 Urine Protein Negative (Negative) 04/17/22 06:54 Urine Glucose (UA) Negative (Negative) 04/17/22 06:54 Urine Ketones Negative (Negative) 04/17/22 06:54 Urine Blood Negative (Negative) 04/17/22 06:54 Urine Nitrite Negative (Negative) 04/17/22 06:54 Urine Bilirubin Negative (Negative) 04/17/22 06:54 Urine Urobilinogen Negative (Negative) 04/17/22 06:54 Ur Leukocyte Esterase Negative (Negative) 04/17/22 06:54 SARS-CoV-2 (PCR) NEGATIVE (Negative) 04/17/22 06:41 Influenza Type A (PCR) Negative (Neg) 04/17/22 06:41 Influenza Type B (PCR) Negative (Neg) 04/17/22 06:41 RSV (RT-PCR) Negative (Neg) 04/17/22 06:41 SARS-CoV-2, RNA, NAAT NEGATIVE (NEGATIVE) 04/17/22 06:06 Impressions Chest X-Ray 04/17/22 06:03 XR chest 1V portable HISTORY: Shortness of breath. COMPARISON: Chest 03/28/2022. Chest CT 04/05/2022. FINDINGS: No pneumothorax. No pleural effusions. The cardiac silhouette is normal in size. Right lower lobe and left basilar patchy airspace opacities persist. This likely represents a pneumonia. No new focal lung consolidations identified. No evidence for pulmonary edema. IMPRESSION: No significant change in the right lower lobe and left basilar patchy airspace opacities consistent with a pneumonia. ACT 112: Negative or not required by law. Electronically signed by: Rylan Archuleta M.D. 04/17/2022 8:46 AM (1) Hypertension Hypertension type: unspecified Qualified Code(s): I10 - Essential (primary) hypertension
[2022-04-18] MEDS: MIDODRINE HCL 10 MG TAB PO PRN ×2 (12:53→23:45)
[2022-04-18] MEDS: ALBUT/IPRATROP 3MG/0.5MG NEB 3 ML VIAL NEB SCH ×2 (13:10→19:29)
[2022-04-18] MEDS: SODIUM CHLOR 7% 4 ML NEB NEB SCH (19:29)
[2022-04-18] MEDS: LATANOPROST 0.005% OP SOLN 2.5 ML BTL OPB SCH (20:34)
[2022-04-19] MEDS: ALBUT/IPRATROP 3MG/0.5MG NEB 3 ML VIAL NEB SCH ×2 (01:04→07:26)
[2022-04-19] MEDS: LEVOTHYROXINE SODIUM 88 MCG TABLET PEG SCH (05:35)
[2022-04-19] MEDS: PIPERACILLIN/TAZOBACTAM 4.5 GM in DEXTROSE 5% 100 ML IV SCH (05:42)
[2022-04-19 06:42] LABS: Hematocrit (blood only) 34.5 % (40.1-51.0); Hemoglobin 11.5 g/dl (14.0-18.0); Mean Corpuscular Hemoglobin 33.1 pg (25.0-34.0); Mean Corpuscular Hgb Conc 33.3 g/dL (32.0-36.0); Mean Corpuscular Volume 99.4 fL (80.0-100.0); Mean Platelet Volume 10.8 fL (9.4-12.4); Platelet Count 176 K/uL (130-400); RDW Coefficient of Variation 14.1 % (11.5-14.5); RDW Standard Deviation 51.5 fL (36.4-46.3); Red Blood Count 3.47 M/uL (4.63-6.08); White Blood Count 10.19 K/ul (4.8-10.8)
[2022-04-19 07:19] LABS: Albumin Globulin Ratio 0.9 (0.9-2); BUN Creatinine Ratio 22.2 (10-20); Bilirubin,Total 0.5 mg/dl (0.2-1.0); Creatinine Clr Calc Pharmacy 90.4 ml/min; Est GFR (African American) 101.5 ml/min; Est GFR (Non-African American) 87.6 ml/min; Globulin 3.2 gm/dl (2.5-4.0); Potassium 3.8 mmol/L (3.5-5.1); Total Protein 6.2 gm/dl (6.0-8.3)
[2022-04-19] MEDS: SODIUM CHLOR 7% 4 ML NEB NEB SCH (07:26)
[2022-04-19] MEDS: BRIMONIDINE TARTRATE 0.2% 5ML OPB SCH (08:45)
[2022-04-19] MEDS: CITALOPRAM 20 MG TAB PEG SCH (08:45)
[2022-04-19] MEDS: PEPTAMEN 1.5 CAL 1,000 ML BAG PEG SCH (09:12)
[2022-04-19] MEDS: TUBE FEEDING WATER FLUSH GT SCH (09:12)
--- NOTE | 2022-04-19 10:32 | Discharge Summary ---
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 intake], alcohol use [2 beers per day via PEG tube], GERD with esophagitis, gastroparesis, COPD, HLD, hypothyroidism, HTN, esophageal stenosis presented to our ED today due to worsening cough and generalized fatigue. This is very similar compared to his previous admission where he was admitted from 03/28-04/01 and was treated with with IV Unasyn for aspiration pneumonia. He was then seen here in the ER on 04/05 for flank pain and pneumonia was at that time redemonstrated but he was still on Augmentin and completed a 14 day course. Today his chest x-ray shows right lower lobe and left basilar opacities on imaging which is concerning for pneumonia not being completely resolved. Patient's provides majority of the history due to his nonverbal state and being very hard of hearing. She reports that he never was back to his baseline, and that yesterday his cough became significantly worse. He is coughing more often and producing a clear mucus with some occasional blood streaking. He has never had hemoptysis before. He does not wear any O2 at baseline and was found to be hypoxic with sats at 88% upon presentation to the ER. Patient takes nothing by mouth as he has a feeding tube. Goal is to get 8 cans of nutritional drink into him per day, and the last time he had anything was around 10 PM last evening. He was unable to take any morning medications today due to feeling so poorly. Admission Exam Per Admitting Provider Constitutional: WD/WN, vitals as above (chronically ill appearing M on 3L of suppl. O2) Eyes: PERRL, conjunctivae normal, anicteric sclerae ENMT: Ears: + hearing impairment; no external ear abnormality Nose: no external nose abnormality Neck: supple Respiratory: + cough Auscultation: + rhonchi (diffus e); no wheezes Cardiovascular: RRR, no murmur, no edema Chest (Breasts): Chest: normal inspection of chest Gastrointestinal (Abdomen): normal bowel sounds, soft, nontender, no hepatosplenomegaly (PEG tube present) Musculoskeletal: Head/Neck/Chest: normocephalic (moves extremities) Skin: no rashes, warm and dry Neurologic: Speech / Cognition: + abnormal speech (d/ t hx of ca s/p surg.) EOMI, PERRL, moves extremities Psychiatric: A+Ox3, euthymic affect Genitourinary: no CVA tenderness Lymphatic: no lymphedema Principal Diagnosis Aspiration pneumonia Discharge Exam Constitutional: Awake. Comfortable; not in any distress. Neck: trachea midline, no thyromegaly normal visual inspection Respiratory: Crackles heard on right lower base Cardiovascular: RRR, no murmur, no edema Vessels: no JVD or carotid bruit Chest: normal inspection of chest Abdomen: Soft, nontender. PEG tube in place. Musculoskeletal: no cyanosis or clubbing, extremities motor strength 5/5 Skin: no rashes, warm and dry normal turgor Neurologic: PERRL, EOMI, accommodation nl, no face palsy, no dysarthria CN's II- XI intact bilaterally and moves all extremities Psychiatric: A+Ox3, euthymic affect Lymphatic: no cervical or axillary lymphadenopathy : deferred Discharge Data Allergies Allergy/AdvReac Type Severity Reaction Status Date / Time levofloxacin Allergy Intermediate rash all Verified 01/20/22 23:48 over body sulfamethoxazole Allergy Intermediate ITCHING Verified 01/20/22 23:48 trimethoprim Allergy Intermediate ITCHING Verified 01/20/22 23:48 sertraline Allergy Mild NOSE BLEEDS Verified 01/20/22 23:48 terazosin Allergy Unknown DOES NOT Verified 01/20/22 23:48 KNOW Nitrate Analogues AdvReac Severe DROP IN BP Verified 01/20/22 23:48 Consultations 04/17/22 09:11 ED Decision to Admit Stat Hospital Course (1) Pneumonia: (2) H/O malignant neoplasm of tonsil: (3) Lactic acidosis: (4) Uses feeding tube: (5) COPD (chronic obstructive pulmonary disease) with emphysema: (6) Hypothyroidism: (7) Hypertension: (8) Glaucoma: (9) DVT prophylaxis: Plan This is a 76 year-old M with PMH of 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 intake], alcohol use [2 beers per day via PEG tube], GERD with esophagitis, gastroparesis, COPD, HLD, hypothyroidism, HTN, esophageal stenosis presented to our ED today due to worsening cough and generalized fatigue. Patient was recently admitted from 03/28-04/01 for aspiration pneumonia and was treated with 14-day course of Augmentin. On presentation to the ED, he was placed on 2 L of oxygen. He was afebrile and normotensive. Chest x-ray showed persistent infiltrate in right lower base and left base. He was started on Zosyn. During the course of hospitalization, patient oxygen requirement was weaned off and patient was back to room air. He did not have any episode of fever. He was di scharged home on 5-day course of Omnicef and doxycycline. Discharge instruction were given to his who is also his caregiver. Patient will follow-up with his PCP after discharge. Total Time Total Time Spent Total Time Spent (In Minutes): 35 Discharge Plan Discharge Items Patient Disposition: Home - Self-Care Reason For Visit: HYPOXIA, PNEUMONIA Discharge Diagnosis: Pneumonia Activity: Resume your previous activity Non-emergency contact: Primary Care Provider Call non-emergency contact if: you have any medication questions and your symptoms worsen Follow-up/Referrals: Sanjiv Hart MD [Primary Care Provider] - Diet: Nothing by Mouth Addtl Attending Provider Instructions: You were admitted to the hospital with pneumonia. Please take the following antibiotics for 5 more days. 1) Omnicef 300 mg twice daily 2) doxycycline 100 mg twice daily Please continue to take all your other medication as prescribed before. Please follow-up with your primary care doctor. Pending Studies at Discharge: No Stand-Alone Forms: My [facility] QMCODES, Smoking Cessation Medications and DC Order Prescriptions: New cefdinir 300 mg capsule 300 mg PO BID 5 Days Qty: 10 0RF doxycycline hyclate 100 mg capsule 100 mg PO BID 5 Days Qty: 10 0RF Continued latanoprost 0.005 % Drops 1 drp OPB HS citalopram 20 mg tablet 20 mg Feeding Tube QAM Nutritional Drink Liquid 2 can Feeding Tube QID Rx Instructions: BOOST (2 CANS QID) brimonidine 0.2 % drops 1 drp OPB BID albuterol sulfate 90 mcg/actuation HFA aerosol inhaler 2 puff INHALATION QID PRN (Reason: Shortness Of Breath) acetaminophen [Tylenol Extra Strength] 500 mg Tablet 1,000 mg PO Q6H PRN (Reason: Pain) levothyroxine [Euthyrox] 88 mcg tablet 88 mcg feeding tube QAM atorvastatin 40 mg tablet 40 mg feeding tube HS midodrine 5 mg Tablet 10 mg feeding tube TID PRN (Reason: Hypotension) Rx Instructions: PRN systolic BP < 180 Discharge Orders: Discharge Order (Routine); Ordered 04/19/22 Ordered By: Angel Edmonds/Other Patient Handouts: What Is Pneumonia?, Treating Pneumonia Admission Data Admit Date/Time: 04/17/22 09:48 Attending Provider: Angel Germain Admit Provider: Jay Vanessa Primary Care Provider: Sanjiv Hart Other Providers: Jay Vanessa Other Interventions: Discharge Summary Assessment (RN) Last Done: 04/19/22 10:11
== END 2022-04-19 10:46 | disposition home or self-care (01) | DRG 178 ==
LOC: ED 05:44 → EDINP 09:48 → SUATTDRO 09:48 → 2N 11:56
DX: E03.9 Hypothyroidism, unspecified; Z86.16 Personal history of COVID-19; J69.0 Pneumonitis due to inhalation of food and vomit; Z93.1 Gastrostomy status; E87.20 Acidosis, unspecified; Z92.3 Personal history of irradiation; I10 Essential (primary) hypertension; Z85.89 Personal history of malignant neoplasm of other organs and systems; H40.9 Unspecified glaucoma; Z88.1 Allergy status to other antibiotic agents; Z88.2 Allergy status to sulfonamides; Z79.890 Hormone replacement therapy; J44.0 Chronic obstructive pulmonary disease with (acute) lower respiratory infection; Z87.891 Personal history of nicotine dependence

== ENCOUNTER 2022-06-05 08:12 | Inpatient (IN) ==
[2022-06-05] MEDS ORDERED: ALBUTEROL 0.083% NEBU SOLN 3 ML VIAL NEB STA (08:33)
[2022-06-05 08:37] LABS: Basophils # (auto) 0.03 K/uL (0-0.2); Basophils % (auto) 0.2 %; Hematocrit (blood only) 40.7 % (40.1-51.0); Hemoglobin 14.4 g/dl (14.0-18.0); Immature Granulocytes # (auto) 0.06 K/uL (0.00-0.02); Immature Granulocytes % (auto) 0.5 %; Lymphocytes # (auto) 0.63 K/uL (1.2-3.4); Lymphocytes % (auto) 4.8 %; Mean Corpuscular Hemoglobin 33.3 pg (25.0-34.0); Mean Corpuscular Hgb Conc 35.4 g/dL (32.0-36.0); Mean Corpuscular Volume 94.2 fL (80.0-100.0); Mean Platelet Volume 11.7 fL (9.4-12.4); Monocytes # (auto) 1.07 K/uL (0.24-0.82); Monocytes % (auto) 8.1 %; Neutrophils # (auto) 11.38 K/uL (1.4-6.5); Neutrophils % (auto) 86.4 %; Platelet Count 148 K/uL (130-400); RDW Coefficient of Variation 13.2 % (11.5-14.5); RDW Standard Deviation 45.7 fL (36.4-46.3); Red Blood Count 4.32 M/uL (4.63-6.08); White Blood Count 13.17 K/ul (4.8-10.8)
--- NOTE | 2022-06-05 08:39 | Emergency Department Note ---
History of Present Illness General Chief complaint: Shortness of Breath/Dyspnea Stated complaint: HYPOXIA Time Seen by Provider: 06/05/22 08:20 Source: patient and family ( who is at the bedside) Mode of arrival: ambulatory Limitations: no limitations History of Present Illness Maximum Pain Intensity: 5 This patient is a 76-year-old male who has a history of lung disease and throat cancer, comes in after having increasing shortness of breath. Around 2:00 in the morning shaky and wheezy his O2 sat dropped to 84% he is not wear home oxygen. He saw his doctor recently and had a chest x-ray COVID and flu and RSV testing which were all negative according to the they did start him on some steroids. He is gotten worse. He does have a G-tube and and receives all his sustenance through that. He was coughing on the way in triage and may have had some posttussive emesis as well he does a history of aspiration. His said he felt weak earlier and laid on the floor there has been no trauma. He has had no blood or melena in his stool. No fever here or at home but he has been coughing more. Denies chest pain. Home Medications Medication Instructions Recorded Confirmed Type citalopram 20 mg tablet 20 mg feeding tube QAM 05/07/18 06/05/22 History food supplemt, lactose-reduced 2 can feeding tube QID 05/07/18 06/05/22 History (Nutritional Drink oral liquid) latanoprost 0.005 % eye drops 1 drp OPB HS 01/30/19 06/05/22 History albuterol sulfate 90 mcg/actuation 2 puff inhalation QID PRN 11/08/20 06/05/22 H istory aerosol inhaler Shortness Of Breath brimonidine 0.2 % eye drops 1 drp OPB BID 11/08/20 06/05/22 History acetaminophen 500 mg tablet 1,000 mg PO Q6H PRN Pain 03/06/21 06/05/22 History (Tylenol Extra Strength) levothyroxine 88 mcg tablet 88 mcg feeding tube QAM 04/06/21 06/05/22 History (Euthyrox) midodrine 5 mg tablet 10 mg feeding tube TID PRN 05/13/21 06/05/22 History Hypotension atorvastatin 40 mg tablet 40 mg feeding tube HS 06/02/21 06/05/22 History fludrocortisone 0.1 mg tablet 0.1 mg feeding tube DAILY 06/05/22 06/05/22 History tiotropium bromide 2.5 2 puff inhalation DAILY 06/05/22 06/05/22 History mcg/actuation mist for inhalation (Spiriva Respimat) Allergies Allergy/AdvReac Type Severity Reaction Status Date / Time levofloxacin Allergy Intermediate rash all Verified 01/20/22 23:48 over body sulfamethoxazole Allergy Intermediate ITCHING Verified 01/20/22 23:48 trimethoprim Allergy Intermediate ITCHING Verified 01/20/22 23:48 sertraline Allergy Mild NOSE BLEEDS Verified 01/20/22 23:48 terazosin Allergy Unknown DOES NOT Verified 01/20/22 23:48 KNOW Nitrate Analogues AdvReac Severe DROP IN BP Verified 01/20/22 23:48 Past Med/Surg History Medical History (Updated 06/05/22 @ 14:15 by Germaine Simon MD, [facility]) Anxiety Aspiration pneumonia hx - CAN NOT TAKE FOOD/LIQUIDS ORALLY Asthma rare use of PRN inh Benign prostatic hyperplasia (Unknown) Blood pressure instability new issue for pt -- [facility] Cardiology manages; currently using midodrine, and nitro PRN hypo/hypertension; per , cardiac workup wnl aside from BP changes Chronic back pain COPD (chronic obstructive pulmonary disease) with emphysema Degenerative disc disease Depression Elevated transaminase level Gastroparesis GERD (gastroesophageal reflux disease) Glaucoma History of COVID-19 05/2021 treated for pneumonia at 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 Uses feeding tube Surgical History H/O esophagogastroduodenoscopy (Unknown) WITH PLACEMENT PEG TUBE History of anesthesia reaction SLOW TO WAKE UP History of neck surgery LUMPECTOMY History of radical neck dissection History of tooth extraction S/P arthroscopic knee surgery (Unknown) RT S/P colonoscopy (Unknown) Family History Brother Family history of diabetes mellitus Social History (Updated 06/05/22 @ 10:59 by Jimena Pimentel DO) Smoking Status: Former smoker Tobacco Type: Cigarettes Second Hand Exposure: Yes (hx); Hx Alcohol Use: No Hx Substance Use: No Preferred Language: Slovak 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 Ability: Unable Manager Access Required: No Beliefs That Will Affect Care: None marital status: Current Living Situation: Spouse Feels Safe at Home: Yes Safety Concerns: Feels Safe At This Time Assistive Devices: Oxygen - Continuous Review of Systems A total of 10 systems reviewed and were otherwise negative Physical Exam Vital Signs Vital Signs - 24 hr 06/05/22 08:22 06/05/22 08:33 06/05/22 08:57 Temperature 37.0 C Temperature Source Oral Pulse Rate 97 H Pulse Rate [Right Finger] 84 Respiratory Rate 24 18 Respiratory Effort / Characteristics Labored Non-Labored Spontaneous Blood Pressure 209/125 H Blood Pressure [Right Arm] 171/88 H Blood Pressure Mean 153 Blood Pressure Mean [Right Arm] 115 Blood Pressure Position Lying Pulse Oximetry 92 93 Oxygen Delivery Method Room Air Nasal Cannula Oxygen Flow Rate 2 Sepsis Recent Fever Within 48 Hours No Sepsis New/Unexplained Change in Mental Status Yes Sepsis Action Taken by Nursing Physician Notified Oxygen Flow Rate - Titration Pulse Oximetry Post Tiitration 06/05/22 08:50 06/05/22 09:50 06/05/22 09:55 Temperature Temperature Source Pulse Rate 112 H 112 H Pulse Rate [Right Finger] Respiratory Rate 26 H 26 H Respiratory Effort / Characteristics Blood Pressure 99/55 L 99/51 L Blood Pressure [Right Arm] Blood Pressure Mean 69 67 Blood Pressure Mean [Right Arm] Blood Pressure Position Pulse Oximetry 88 L 98 97 Oxygen Delivery Method Room Air Nasal Cannula Nasal Cannula Oxygen Flow Rate 2 2 Sepsis Recent Fever Within 48 Hours Sepsis New/Unexplained Change in Mental Status Sepsis Action Taken by Nursing Oxygen Flow Rate - Titration 2 Pulse Oximetry Post Tiitration 96 General: Well developed well nourished chronically ill-appearing older male who appears in mild distress in no acute distress, breathing comfortably on room air. Speech is somewhat difficult to understand due to secondary surgeries but is at baseline. HEENT: Normal cephalic atraumatic. Pupils are equal round and reactive to li ght. Extraocular movements are intact. Oropharynx is pink with moist mucous membranes. No swelling of the mouth lips or tongue. Neck: Supple with a midline trachea. No meningeal signs or stiffness, no JVD or bruits. No Stridor. Chest: He does have crackles in the right base. He is mild increased work of breathing. Heart: Regular rate and rhythm without murmurs or gallops. Abdomen: Soft nontender, nondistended without rebound guarding or rigidity. G- tube in abdomen Extremities: No cyanosis clubbing or edema. No calf tenderness or assymetry Spine/Back. Non tender to palpation. No CVA tenderness Skin: Good turgor without rashes. Neurologic exam: Cranial nerves two through 12 are intact. Motor and sensation are intact and symmetrical throughout. Course Administered Medications Citalopram Hydrobromide (Citalopram 20 Mg Tab) 20 mg PEG QAM GIRISH Stop: 07/05/22 12:29 Last Admin: 06/05/22 13:28 Dose: 20 mg Documented By: CG Fludrocortisone Acetate (Fludrocortisone Acetate 0.1 Mg Tab) 0.1 mg PO DAILY GIRISH Stop: 07/05/22 12:29 Last Admin: 06/05/22 13:27 Dose: 0.1 mg Documented By: CG Fluticasone Propionate (Fluticasone Propionate Na Spr 16 Gm Btl) 2 sprays JONN Q24H GIRISH Stop: 07/05/22 12:59 Last Admin: 06/05/22 13:27 Dose: 2 sprays Documented By: CG Guaifenesin (Guaifenesin Sugar Free 200 Mg/10 Ml Udc) 200 mg PO Q6H GIRISH Stop: 07/05/22 12:59 Last Admin: 06/05/22 13:28 Dose: 200 mg Documented By: CG Potassium Chloride 40 meq/ (Sodium Chloride) 1,020 mls @ 125 mls/hr IV .Q8H10M GIRISH Stop: 06/05/22 21:09 Last Admin: 06/05/22 13:29 Dose: 125 mls/hr Documented By: CG Midodrine (Midodrine Hcl 10 Mg Tab) 10 mg PO TID@0900,1400,1800 GIRISH Stop: 07/05/22 13:59 Last Admin: 06/05/22 13:27 Dose: 10 mg Documented By: CG Potassium Chloride (Potassium Chloride 20 Meq/15 Ml Udc) 40 meq PEG Q6H GIRISH Stop: 06/05/22 19:01 Last Admin: 06/05/22 13:28 Dose: 40 meq Documented By: CG Discontinued Medications Albuterol (Albuterol 0.083% Nebu Soln 3 Ml Vial) 10 mg NEB NOW STA; Protocol Stop: 06/05/22 08:34 Last Admin: 06/05/22 08:56 Dose: 10 mg Documented By: KRISTIAN Piperacillin Sod/Tazobactam Sod (Zosyn) 4.5 gm in 120 mls @ 240 mls/hr IV NOW ONE Stop: 06/05/22 09:16 Last Infusion: 06/05/22 09:30 Dose: 0 mls/hr Documented By: Admin: 06/05/22 09:00 Dose: 240 mls/hr Documented By: BERNIE Sodium Chloride (Nss 1000ml) 1,000 mls @ 999 mls/hr IV .Q1H1M ONE Stop: 06/05/22 09:48 Last Infusion: 06/05/22 11:45 Dose: 0 mls/hr Documented By: Admin: 06/05/22 08:59 Dose: 500 mls/hr Documented By: BERNIE Potassium Chloride (K Shree / Wtr) 10 meq in 100 mls @ 100 mls/hr IV Q1H GIRISH; Protocol Stop: 06/05/22 11:14 Last Infusion: 06/05/22 11:46 Dose: 0 mls/hr Documented By: Admin: 06/05/22 10:16 Dose: 100 mls/hr Documented By: Infusion: 06/05/22 10:16 Dose: 100 mls/hr Documented By: Admin: 06/05/22 09:20 Dose: 100 mls/hr Documented By: MK Sodium Chloride (Nss 1000ml) 1,000 mls @ 999 mls/hr IV .Q1H1M ONE Stop: 06/05/22 11:10 Last Infusion: 06/05/22 12:48 Dose: 0 mls/hr Documented By: Admin: 06/05/22 11:45 Dose: 999 mls/hr Documented By: LEENA Methylprednisolone (Methylprednisolone 125 Mg/2 Ml Vial) 125 mg IV NOW STA Stop: 06/05/22 08:48 Last Admin: 06/05/22 08:59 Dose: 125 mg Documented By: BERNIE Potassium Chloride (Potassium Chloride 20 Meq/15 Ml Udc) 40 meq NG ONE ONE Stop: 06/05/22 09:31 Last Admin: 11/18/22 09:34 Dose: 40 meq Documented By: MK Critical Care Time Critical Care Time: Yes Total Critical Care Time: 35 Due to the patient's symptoms with concern for sepsis and respiratory compromise, I immediately saw the patient upon arrival and recheck on a multiple times he was given multiple medications and I have personally spent greater than 35 minutes of critical care time in the direct management of this patient. This includes bedside care, interpretation of diagnostic studies, and testing, discussion with consultants, patient, and family members, and other required patient management activities. This 30 minutes is in excess of all separately billable procedures. Medical Decision Making Differential Diagnosis Pneumonia, aspiration, COPD, sepsis, acute coronary syndrome, arrhythmia, electrolyte or metabolic abnormality Medical Records Attestation: I reviewed the patient's medical records. Home Medications Current Medication List: was personally reviewed by me Laboratory Data Attestation: I reviewed the patient's lab results. Result diagrams: 06/05/22 08:28 06/05/22 08:28 Lab Results 06/05/22 06/05/22 06/05/22 Range/Units 08:28 08:28 08:28 WBC 13.17 H (4.8-10.8) K/ul RBC 4.32 L (4.63-6.08) M/uL Hgb 14.4 (14.0-18.0) g/dl Hct 40.7 (40.1-51.0) % MCV 94.2 (80.0-100.0) fL MCH 33.3 (25.0-34.0) pg MCHC 35.4 (32.0-36.0) g/dL RDW Std Deviation 45.7 (36.4-46.3) fL RDW Coeff of Judy 13.2 (11.5-14.5) % Plt Count 148 (130-400) K/uL MPV 11.7 (9.4-12.4) fL Immature Gran % (Auto) 0.5 % Neut % (Auto) 86.4 % Lymph % (Auto) 4.8 % [place] % (Auto) 8.1 % Eos % (Auto) 0.0 % Baso % (Auto) 0.2 % Neut # (Auto) 11.38 H (1.4-6.5) K/uL Lymph # (Auto) 0.63 L (1.2-3.4) K/uL [place] # (Auto) 1.07 H (0.24-0.82) K/uL Eos # (Auto) 0.00 (0-0.50) K/uL Baso # (Auto) 0.03 (0-0.2) K/uL Immature Gran # (Auto) 0.06 H (0.00-0.02) K/uL Sodium 137 (136-145) mmol/L Potassium 2.8 L (3.5-5.1) mmol/L Chloride 101 (98-107) mmol/L Carbon Dioxide 26 (21-32) mmol/L Anion Gap 10 (3-11) BUN 15 (6-23) mg/dl Creatinine 0.92 (0.6-1.4) mg/dl Est Cr Clr Drug Dosing 76.8 ml/min Est GFR ( Amer) 94.6 ml/min Est GFR (Non-Af Amer) 81.6 ml/min BUN/Creatinine Ratio 16.3 (10-20) Glucose 108 H (70-99(Fasting)) mg/dl Calcium 9.0 (8.5-10.1) mg/dl Magnesium 1.7 (1.7-2.4) mg/dl Total Bilirubin 1.0 (0.2-1.0) mg/dl Direct Bilirubin 0.2 (0-0.2) mg/dl AST 29 (13-39) U/L ALT 35 (7-52) U/L Alkaline Phosphatase 74 (34-104) U/L Troponin I High Sens 32.4 H D (0-20) pg/ml Total Protein 7.3 (6.0-8.3) gm/dl Albumin 3.8 (3.4-5.0) gm/dl Procalcitonin 0.19 (0-0.5) ng/ml Adenovirus (PCR) (NotDetected) B. pertussis DNA (PCR) (NotDetected) B.parapertussis DNA PCR (NotDetected) C. pneumoniae DNA (PCR) (NotDetected) Coronavirus OC43 (PCR) (NotDetected) Coronavirus HKU1 (PCR) (NotDetected) Coronavirus 229E (PCR) (NotDetected) SARS-CoV-2 (PCR) (NotDetected) Coronavirus NL63 (PCR) (NotDetected) Human Metapneumovir PCR (NotDetected) Influenza Type A (PCR) (NotDetected) Influenza Type B (PCR) (NotDetected) M. pneumoniae (PCR) (NotDetected) Parainfluenza 1 (PCR) (NotDetected) Parainfluenza 2 (PCR) (NotDetected) Parainfluenza 3 (PCR) (NotDetected) Parainfluenza 4 (PCR) (NotDetected) RSV (PCR) (NotDetected) Entero/Rhino (PCR) (NotDetected) 06/05/22 Range/Units 08:54 WBC (4.8-10.8) K/ul RBC (4.63-6.08) M/uL Hgb (14.0-18.0) g/dl Hct (40.1-51.0) % MCV (80.0-100.0) fL MCH (25.0-34.0) pg MCHC (32.0-36.0) g/dL RDW Std Deviation (36.4-46.3) fL RDW Coeff of Judy (11.5-14.5) % Plt Count (130-400) K/uL MPV (9.4-12.4) fL Immature Gran % (Auto) % Neut % (Auto) % Lymph % (Auto) % [place] % (Auto) % Eos % (Auto) % Baso % (Auto) % Neut # (Auto) (1.4-6.5) K/uL Lymph # (Auto) (1.2-3.4) K/uL [place] # (Auto) (0.24-0.82) K/uL Eos # (Auto) (0-0.50) K/uL Baso # (Auto) (0-0.2) K/uL Immature Gran # (Auto) (0.00-0.02) K/uL Sodium (136-145) mmol/L Potassium (3.5-5.1) mmol/L Chloride (98-107) mmol/L Carbon Dioxide (21-32) mmol/L Anion Gap (3-11) BUN (6-23) mg/dl Creatinine (0.6-1.4) mg/dl Est Cr Clr Drug Dosing ml/min Est GFR ( Amer) ml/min Est GFR (Non-Af Amer) ml/min BUN/Creatinine Ratio (10-20) Glucose (70-99(Fasting)) mg/dl Calcium (8.5-10.1) mg/dl Magnesium (1.7-2.4) mg/dl Total Bilirubin (0.2-1.0) mg/dl Direct Bilirubin (0-0.2) mg/dl AST (13-39) U/L ALT (7-52) U/L Alkaline Phosphatase (34-104) U/L Troponin I High Sens (0-20) pg/ml Total Protein (6.0-8.3) gm/dl Albumin (3.4-5.0) gm/dl Procalcitonin (0-0.5) ng/ml Adenovirus (PCR) Not Detected (NotDetected) B. pertussis DNA (PCR) Not Detected (NotDetected) B.parapertussis DNA PCR Not Detected (NotDetected) C. pneumoniae DNA (PCR) Not Detected (NotDetected) Coronavirus OC43 (PCR) Not Detected (NotDetected) Coronavirus HKU1 (PCR) Not Detected (NotDetected) Coronavirus 229E (PCR) Not Detected (NotDetected) SARS-CoV-2 (PCR) Not Detected (NotDetected) Coronavirus NL63 (PCR) Not Detected (NotDetected) Human Metapneumovir PCR Not Detected (NotDetected) Influenza Type A (PCR) Not Detected (NotDetected) Influenza Type B (PCR) Not Detected (NotDetected) M. pneumoniae (PCR) Not Detected (NotDetected) Parainfluenza 1 (PCR) Not Detected (NotDetected) Parainfluenza 2 (PCR) Not Detected (NotDetected) Parainfluenza 3 (PCR) Not Detected (NotDetected) Parainfluenza 4 (PCR) Not Detected (NotDetected) RSV (PCR) Not Detected (NotDetected) Entero/Rhino (PCR) Not Detected (NotDetected) Imaging Data Attestation: I personally reviewed and interpreted this imaging study as follows: My Impression: Chest x-raythere is suspected infiltrate in the right base. Radiologist's Impression: Chest X-Ray 06/05/22 08:28 XR chest 1V portable HISTORY: Sepsis COMPARISON: Chest 05/21/2022. FINDINGS: No pneumothorax. No pleural effusions. There are low lung volumes with a few bibasilar linear densities favoring subsegmental atelectasis or scarring. Small patchy density within the right medial lung base is noted. The heart is normal in size. No evidence for pulmonary edema. IMPRESSION: There is a new small patchy airspace opacity within the right medial lung base. This could represent atelectasis or a developing pneumonia. ACT 112: Negative or not required by law. Electronically signed by: Rylan Archuleta M.D. 06/05/2022 8:50 AM ECG Data Attestation: I personally reviewed and interpreted this ECG as follows: Indication: + SOB/dyspnea Rate (beats per minute): 103 Rhythm: + sinus tachycardia and + other (Poor baseline/artifact) ECG Intervals/blocks: + Normal QRS, + Normal QT and + Normal GA ECG Parshall: + Normal ECG ST segments: + Nonspecific ST abnormalities ECG Findings: no PACs or no PVCs Comparison ECG Date: from (05/21/22) Change: no significant change Additional Comments: EKG #2: Normal sinus rhythm with a rate of 94. No acute ischemic changes or ectopy. Compared EKG #1 no significant change. MDM Narrative This patient comes in as described above. The nurses asked me to come see him as he was ill-appearing and also his EKG being read by the computer said acute STEMI. It does not appear to be acute STEMI and he has no chest pain has not significantly different than before. We did place him on a scale installer. He has crackles in his lungs and sounds like he more likely aspirated or has pneumonia. He was given an continuous albuterol Atrovent nebs blood work including blood cultures and lactic acid were obtained. chest x-ray was also obtained. his second EKG to ensure there is no changes. Cardiac biomarkers were also obtained he was reassessed frequently. I did review his old records as he has very complex medical history. I did repeat his EKG and there is no change compared to the first there is no evidence of anything evolving and I think the first one was more just artifactual. Chest x-ray suggests aspiration pneumonia and clinically he has symptoms like this as well I gave him Zosyn 4.5 g IV has had this before I also gave him IV Solu-Medrol given his current use of steroids and COPD. His potassium was mildly low at 2.8 he does not take anything by mouth we did order 2K riders as well as some elixir to go through his NG tube. Troponin was mildly elevated. I do think he needs to be admitted for further treatment and evaluation. His lactic acid was mildly elevated at 2.3 and given concern for infection/sepsis he did receive 1 L normal saline bolus initially I reassessed him and he tolerated this well so was given a second liter normal saline. With these 2 L IV and and his ideal body weight of 67 kg this puts him at 30 mg/ kg IV normal saline based on his ideal body weight which should be compliant with the sepsis criteria. With these measures he looks better his pressure was actually hypertensive and now it is on the lower side although he is very skinny. I did consult the [facility] hospitalist and they are going to see him in the ER for these measures. Continuous cardiac monitoring: Orders placed in EMR for continuous cardiac monitoring. Upon my interpretation the patient was noted to be in normal sinus rhythm with a rate of of 90. Impression & Plan Sepsis, Aspiration pneumonia, Hypoxemia, Lab test negative for COVID-19 virus, Acute hypokalemia Discharge Plan Visit Data Chief Complaint: Shortness of Breath/Dyspnea Stated Complaint: HYPOXIA ED Provider: Alejandro Ochoa Discharge Problem: Sepsis, Aspiration pneumonia, Hypoxemia, Lab test negative for COVID-19 virus, Acute hypokalemia Patient Disposition: Admitted As Inpatient Discharge Instructions Interventions: ED Discharge Assessment Last Done: 06/05/22 10:45 : Aspiration pneumonia Qualifiers: Aspiration pneumonia type: unspecified Laterality: right Lung location: lower lobe of lung Qualified Code(s): J69.0 - Pneumonitis due to inhalation of food and vomit
[2022-06-05] MEDS ORDERED: methylPREDNISolone 125 MG/2 ML VIAL IV STA (08:47)
[2022-06-05] MEDS ORDERED: PIPERACILLIN/TAZOBACTAM 4.5 GM/120 ML BAG IV ONE (08:47)
[2022-06-05] MEDS ORDERED: SODIUM CHLORIDE 0.9% 1000ML 1,000 ML IV ONE ×2 (08:48→10:10)
--- NOTE | 2022-06-05 08:51 | XRay Report ---
XR chest 1V portable HISTORY: Sepsis COMPARISON: Chest 05/21/2022. FINDINGS: No pneumothorax. No pleural effusions. There are low lung volumes with a few bibasilar line ar densities favoring subsegmental atelectasis or scarring. Small patchy density within the right med ial lung base is noted. The heart is normal in size. No evidence for pulmonary edema. IMPRESSION: There is a new small patchy airspace opacity within the right medial lung base. This could represent atelectasis or a developing pneumonia. ACT 112: Negative or not required by law. Electronically signed by: Rylan Archuleta M.D. 06/05/2022 8:50 AM
[2022-06-05 08:56] LABS: Albumin Level 3.8 gm/dl (3.4-5.0); BUN Creatinine Ratio 16.3 (10-20); Bilirubin Direct 0.2 mg/dl (0-0.2); Creatinine Clr Calc Pharmacy 76.8 ml/min; Est GFR (African American) 94.6 ml/min; Est GFR (Non-African American) 81.6 ml/min; Magnesium 1.7 mg/dl (1.7-2.4); Potassium 2.8 mmol/L (3.5-5.1); Total Protein 7.3 gm/dl (6.0-8.3)
[2022-06-05 09:02] LABS: Troponin I High Sensitivity 32.4 pg/ml (0-20)
[2022-06-05 09:08] LABS: Appearance Urine Clear (Clear); Bacteria Urine Automated Negative (Negative); Bilirubin Urine Negative (Negative); Blood Urine Negative (Negative); Color Urine Yellow; Glucose Urine UA Negative (Negative); Ketones Urine Negative (Negative); Leukocyte Esterase Urine Negative (Negative); Nitrite Urine Negative (Negative); RBC Urine Automated 0-4 /hpf (0-4); Specific Gravity Urine 1.008 (1.000-1.030); Urobilinogen Urine Negative (Negative); pH Urine 7.5 (4.5-7.5)
[2022-06-05] MEDS: POTASSIUM CHLORIDE / WTR 10 MEQ/100 ML PLCT IV SCH ×2 (09:20→10:16)
[2022-06-05 09:21] LABS: Protein Urine Trace (Negative)
[2022-06-05] MEDS ORDERED: POTASSIUM CHLORIDE 20 MEQ/15 ML UDC NG ONE (09:30)
[2022-06-05 10:05] LABS: Adenovirus PCR Not Detected (NotDetected); Bordetella parapertussis PCR Not Detected (NotDetected); Bordetella pertussis PCR Not Detected (NotDetected); Chlamydia pneumoniae PCR Not Detected (NotDetected); Coronavirus 229E PCR Not Detected (NotDetected); Coronavirus CoV-2 (COVID19)PCR Not Detected (NotDetected); Coronavirus HKU1 PCR Not Detected (NotDetected); Coronavirus NL63 PCR Not Detected (NotDetected); Coronavirus OC43PCR Not Detected (NotDetected); Human Metapneumovirus PCR Not Detected (NotDetected); Influenza A PCR Not Detected (NotDetected); Influenza B PCR Not Detected (NotDetected); Mycoplasma pneumoniae PCR Not Detected (NotDetected); Parainfluenza Virus 1 PCR Not Detected (NotDetected); Parainfluenza Virus 2 PCR Not Detected (NotDetected); Parainfluenza Virus 3 PCR Not Detected (NotDetected); Parainfluenza Virus 4 PCR Not Detected (NotDetected); Respiratory Syncytial VirusPCR Not Detected (NotDetected); Rhinovirus/Enterovirus PCR Not Detected (NotDetected)
--- NOTE | 2022-06-05 10:22 | History & Physical Report ---
Date of Service June 05, 2022 Assessment & Plan (1) Sepsis: Plan: Started becoming ill just last night, worsened cough, mucous in throat in form of post nasal drip that he feels he cannot clear. New hypoxia and new infiltrate in right lung. Possible aspiration pneumonia with quick onset of symptoms--patient looked really good yesterday per . Patient has a distorted anatomy causing issues with swallowing and clearing secretions/mucous. He may have additional mucous in bronchi that are contributing to hypoxia. He is asking if there is any way to further improve his throat anatomy and "fix" this issue so he can swallow better. We discussed that would be for an ENT specialist to decide with him, and he and his verbalized understanding. Will plan to cont Zosyn pending clinical improvement and culture results, institute pulmonary toilet efforts such as flutter valve and encouraged ambulation, add mucinex for mucolytic support and flonase to help with sinus related post nasal drip. Appreciate pulmonology recommendations as this is his third pneumonia instance in 3 months. Notably he felt well and fully recovered with no residual cough after his last admission in early April. (2) Aspiration pneumonia: Plan: plan as above. Unasyn, mucolytics, Flonase, pulm consult. (3) Hypoxemia: Plan: Poss related to recurrent pneumonia. Plan as above. (4) Protein calorie malnutrition: Plan: 20 lb weight loss reported over the past few months. He reports consistent use of Boost for nutritional support and has not dropped below his goal of 8 cans per day. Will ask for nutrition help and adjusting of feeds to meet/improve caloric intake. Daily weights. (5) Hypokalemia: Plan: replace IV/PO and recheck in am. Mg is WNL. 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 (7) Hypothyroidism: Plan: chronic, stable. Cont synthroid per home regimen. (8) Hypertension: Plan: Intermittent hypotension, and hypertension. reports BP at home was 200/100 a couple of nights ago, but then it can drop to 60/40 just 30 minutes later. Cont midodrine with hold parameters per home regimen. (9) Depression: Plan: chronic, stable. Cont citalopram per home regimen. (10) DVT prophylaxis: Plan: Lovenox Full Code confirmed with patient and on admission. Dis[facility] Plan History of Present Illness Chief Complaint: shortness of breath/coughing Primary Care Provider: Sanjiv Hart MD 76 yo M with history of head and neck cancer s/p radical dissection of right neck s/p XRT and PEG tube placement. He doesn't take anything PO and all nutrition is given through his PED. He was recently hospitalized 04/19/22 for fatigue and was found to have a possible unresolved pneumonia on the left base. He has a long history of coughing which contributed to his last admission. He doesn't wear oxygen at baseline. He was treated and sent home to finish a course of cefdinir and doxycycline. He returns today with increased SOB and coughing. helps with the history and states that he looked well yesterday and they went to [place] last night together. She said that before [place] he started becoming SOB very suddenly and was shaking as if he had chills. There were no fevers and he has a cough present. He has no vomiting but did report nausea two days ago, improved with antiemetic therapy. He feels improved after the 1 hr neb this morning. reported wheezing that was audible overnight. No chest or abdominal pain. Allergies Allergy/AdvReac Type Severity Reaction Status Date / Time levofloxacin Allergy Intermediate rash all Verified 01/20/22 23:48 over body sulfamethoxazole Allergy Intermediate ITCHING Verified 01/20/22 23:48 trimethoprim Allergy Intermediate ITCHING Verified 01/20/22 23:48 sertraline Allergy Mild NOSE BLEEDS Verified 01/20/22 23:48 terazosin Allergy Unknown DOES NOT Verified 01/20/22 23:48 KNOW Nitrate Analogues AdvReac Severe DROP IN BP Verified 01/20/22 23:48 Home Medications Medication Instructions Recorded Confirmed Type citalopram 20 mg tablet 20 mg feeding tube QAM 05/07/18 06/05/22 History food supplemt, lactose-reduced 2 can feeding tube QID 05/07/18 06/05/22 History (Nutritional Drink oral liquid) latanoprost 0.005 % eye drops 1 drp OPB HS 01/30/19 06/05/22 History albuterol sulfate 90 mcg/actuation 2 puff inhalation QID PRN 11/08/20 06/05/22 History aerosol inhaler Shortness Of Breath brimonidine 0.2 % eye drops 1 drp OPB BID 11/08/20 06/05/22 History acetaminophen 500 mg tablet 1,000 mg PO Q6H PRN Pain 03/06/21 06/05/22 History (Tylenol Extra Strength) levothyroxine 88 mcg tablet 88 mcg feeding tube QAM 04/06/21 06/05/22 History (Euthyrox) midodrine 5 mg tablet 10 mg feeding tube TID PRN 05/13/21 06/05/22 History Hypotension atorvastatin 40 mg tablet 40 mg feeding tube HS 06/02/21 06/05/22 History fludrocortisone 0.1 mg tablet 0.1 mg feeding tube DAILY 06/05/22 06/05/22 History tiotropium bromide 2.5 2 puff inhalation DAILY 06/05/22 06/05/22 History mcg/actuation mist for inhalation (Spiriva Respimat) Past Med/Surg History Medical History (Updated 06/05/22 @ 12:45 by Jimena Pimentel DO) Anxiety Aspiration pneumonia hx - CAN NOT TAKE FOOD/LIQUIDS ORALLY Asthma rare use of PRN inh Benign prostatic hyperplasia (Unknown) Blood pressure instability new issue for pt -- [facility] Cardiology manages; currently using midodrine, and nitro PRN hypo/hypertension; per , cardiac workup wnl aside from BP changes Chronic back pain COPD (chronic obstructive pulmonary disease) with emphysema Degenerative disc disease Depression Elevated transaminase level Gastroparesis GERD (gastroesophageal reflux disease) Glaucoma History of COVID-19 05/2021 treated for pneumonia at [facility] Hypertension Hypokalemia Hypothyroidism Osteoarthritis Sepsis 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 Uses feeding tube Surgical History H/O esophagogastroduodenoscopy (Unknown) WITH PLACEMENT PEG TUBE History of anesthesia reaction SLOW TO WAKE UP History of neck surgery LUMPECTOMY History of radical neck dissection History of tooth extraction S/P arthroscopic knee surgery (Unknown) RT S/P colonoscopy (Unknown) Family History Brother Family history of diabetes mellitus Social History (Updated 06/05/22 @ 10:59 by Jimena Pimentel, ) Smoking Status: Former smoker Tobacco Type: Cigarettes Second Hand Exposure: Yes (hx); Hx Alcohol Use: No Hx Substance Use: No Preferred Language: Zimbabwean 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 Ability: Unable Quarrying Manager Required: No Beliefs That Will Affect Care: None marital status: Current Living Situation: Spouse Feels Safe at Home: Yes Safety Concerns: Feels Safe At This Time Assistive Devices: Oxygen - Continuous Review of Systems Review of Systems: All systems were reviewed and negative except as indicated on HPI above. Physical Exam Physical Exam: CONSTITUTIONAL: thin, frail, vitals as above, generally ill- appearing, fatigued EYES: normal conjunctivae, no scleral icterus ENT: external ear and nose normal, oropharynx clear with evidence of post-nasal drip and distorted anatomy in that he has less of a posterior tongue on the right. NECK: trachea midline RESPIRATORY: coarse rhonchi at bases, no wheezes, normal respiratory effort CARDIOVASCULAR: regular rate and rhythm, S1 and 2 heard without murmurs, gallops or rubs, no JVD, no peripheral edema CHEST: inspection of chest was normal GASTROINTESTINAL: normal bowel sounds, soft, nontender, [place] MUSCULOSKELETAL: strength 5/5 throughout, head is normocephalic and atraumatic, neck supple, normal palpation of chest wall without tenderness SKIN: warm and dry, no rashes NEUROLOGIC: CN 2-12 grossly intact, no sensory deficit, normal cognition, altered speech historically that is at his baseline, no tremor PSYCHIATRIC: alert cooperative and oriented to person, place and time. Euthymic mood, makes good eye contact, language grossly intact, recent and remote memory grossly intact. Results & Data Results & Data ([facility]) Vital Signs (Past 12 Hours) Vital Signs Temp Pulse Pulse Resp BP BP Pulse Ox 06/05/22 09:50 112 H 26 H 99/55 L 98 06/05/22 08:50 88 L 06/05/22 08:57 84 18 93 06/05/22 08:33 171/88 H 06/05/22 08:22 37.0 C 97 H 24 209/125 H 92 O2 Del Method O2 Flow Rate 06/05/22 09:50 Nasal Cannula 2 06/05/22 08:50 Room Air 06/05/22 08:57 Nasal Cannula 2 06/05/22 08:33 06/05/22 08:22 Room Air Laboratory Results Short CBC 06/05/22 Range/Units 08:28 WBC 13.17 H (4.8-10.8) K/ul Hgb 14.4 (14.0-18.0) g/dl Hct 40.7 (40.1-51.0) % Plt Count 148 (130-400) K/uL BMP 06/05/22 08:28 Sodium 137 Potassium 2.8 L Chloride 101 Carbon Dioxide 26 BUN 15 Creatinine 0.92 Glucose 108 H Calcium 9.0 Liver Function 06/05/22 Range/Units 08:28 Total Bilirubin 1.0 (0.2-1.0) mg/dl Direct Bilirubin 0.2 (0-0.2) mg/dl AST 29 (13-39) U/L ALT 35 (7-52) U/L Alkaline Phosphatase 74 (34-104) U/L Albumin 3.8 (3.4-5.0) gm/dl Urine 06/05/22 Range/Units Unknown Urine Color Yellow Urine Appearance Clear (Clear) Urine pH 7.5 (4.5-7.5) Ur Specific [place] 1.008 (1.000-1.030) Urine Protein Trace H (Negative) Urine Glucose (UA) Negative (Negative) Diagnostic Findings Chest X-Ray 06/05/22 08:28 XR chest 1V portable HISTORY: Sepsis COMPARISON: Chest 05/21/2022. FINDINGS: No pneumothorax. No pleural effusions. There are low lung volumes with a few bibasilar linear densities favoring subsegmental atelectasis or scarring. Small patchy density within the right medial lung base is noted. The heart is normal in size. No evidence for pulmonary edema. IMPRESSION: There is a new small patchy airspace opacity within the right medial lung base. This could represent atelectasis or a developing pneumonia. ACT 112: Negative or not required by law. Electronically signed by: Rylan Archuleta M.D. 06/05/2022 8:50 AM Code Status & VTE Plan VTE Prophylaxis Plan VTE Prophylaxis will be ordered: Yes (1) Hypertension Hypertension type: unspecified Qualified Code(s): I10 - Essential (primary) hypertension (2) Protein calorie malnutrition Protein-calorie malnutrition severity: severe Qualified Code(s): E43 - Unspecified severe protein-calorie malnutrition
[2022-06-05] MEDS ORDERED: FLUDROCORTISONE ACETATE 0.1 MG TAB PO SCH (12:30)
--- NOTE | 2022-06-05 12:32 | Pulmonary Consultation ---
Date of Consultation June 05, 2022 Assessment & Plan (1) Aspiration pneumonia: (2) Acute respiratory failure with hypoxia: (3) Chronic bronchitis: (4) H/O malignant neoplasm of tonsil: (5) Ex-smoker: Plan CT chest 06/05/2022 personally reviewed: Bilateral apical pleural scarring, more in the right side Secretions appreciated in the lumen of upper trachea Consolidative process appreciated bilaterally lower lobes more on the left side Subcarinal lymphadenopathy (chronic) Consolidative process in the right lower lobe has improved while left lower lobe consolidation is new compared to 04/05/2022 -- Acute respiratory failure with hypoxia Bilateral lower lobe pneumonia, new on the left side Right lower lobe seems to be improving Likely underlying aspiration of secretion Respiratory bio fire negative 06/05/2022 COVID-19 PCR, influenza A/B, RSV negative Procalcitonin 0.19 -- COPD On Spiriva at home --History of head and neck cancer S/p resection and radiation 2011 I doubt that there is progression of his underlying cancer given the waxing and waning lower lobe infiltrates If there is persistent infiltrate appreciated on repeat CAT scan in 2 months the bronchoscopy should be considered Patient might benefit from CoughAssist device on discharge Plan: Continue with antibiotics, add atypical coverage with azithromycin for 5 days, QTC 447 Add Mucomyst and hypertonic saline Flutter valve, will consider CoughAssist if the above measures does not work I will discontinue Incruse as I am not sure if patient is able to use inhalers appropriately. I would rather have him use nebulizer Brovana Please note the above document was generated using voice recognition software. It may contain grammatical, syntax or spelling errors.Any formal questions or c oncerns about the content, text or information contained within the body of this dictation should be directly addressed to the provider for clarification. Consolidative process in the right lower lobe seems to be improved History of Present Illness Attending Physician: Jimena Pimentel DO History of Present Illness 76-year-old male presented to the hospital with complaints of cough and shortness of breath Past medical history: Head and neck cancer s/p radical resection of the right neck 2011, s/p radiation, hypothyroidism, hypertension, depression Pulmonary consulted for abnormal chest x-ray At the time of examination patient's was in the room Patient is hard to hear. He denies any nausea or vomiting No abdominal pain Does complain of some retrosternal discomfort. He does have history of reflux and this is not new to him. Does complain of cough and inability to bring it up. Has been afebrile. He did have history of hypotension for which he is taking midodrine 3 times daily. No fever or chills No dysuria, no diarrhea No headache, no blurry vision Patient was recently admitted to the hospital on 04/19/2022 for pneumonia and discharged on cefdinir and doxycycline. Social history: [id number] smoking history, quit at the age of 38. 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 Allergies Allergy/AdvReac Type Severity Reaction Status Date / Time levofloxacin Allergy Intermediate rash all Verified 01/20/22 23:48 over body sulfamethoxazole Allergy Intermediate ITCHING Verified 01/20/22 23:48 trimethoprim Allergy Intermediate ITCHING Verified 01/20/22 23:48 sertraline Allergy Mild NOSE BLEEDS Verified 01/20/22 23:48 terazosin Allergy Unknown DOES NOT Verified 01/20/22 23:48 KNOW Nitrate Analogues AdvReac Severe DROP IN BP Verified 01/20/22 23:48 Home Medications Medication Instructions Recorded Confirmed Type citalopram 20 mg tablet 20 mg feeding tube QAM 05/07/18 06/05/22 History food supplemt, lactose-reduced 2 can feeding tube QID 05/07/18 06/05/22 History (Nutritional Drink oral liquid) latanoprost 0.005 % eye drops 1 drp OPB HS 01/30/19 06/05/22 History albuterol sulfate 90 mcg/actuation 2 puff inhalation QID PRN 11/08/20 06/05/22 History aerosol inhaler Shortness Of Breath brimonidine 0.2 % eye drops 1 drp OPB BID 11/08/20 06/05/22 History acetaminophen 500 mg tablet 1,000 mg PO Q6H PRN Pain 03/06/21 06/05/22 History (Tylenol Extra Strength) levothyroxine 88 mcg tablet 88 mcg feeding tube QAM 04/06/21 06/05/22 History (Euthyrox) midodrine 5 mg tablet 10 mg feeding tube TID PRN 05/13/21 06/05/22 History Hypotension atorvastatin 40 mg tablet 40 mg feeding tube HS 06/02/21 06/05/22 History fludrocortisone 0.1 mg tablet 0.1 mg feeding tube DAILY 06/05/22 06/05/22 History tiotropium bromide 2.5 2 puff inhalation DAILY 06/05/22 06/05/22 History mcg/actuation mist for inhalation (Spiriva Respimat) Patient History Medical History (Updated 06/05/22 @ 14:15 by Germaine Simon MD, [facility]) Anxiety Aspiration pneumonia hx - CAN NOT TAKE FOOD/LIQUIDS ORALLY Asthma rare use of PRN inh Benign prostatic hyperplasia (Unknown) Blood pressure instability new issue for pt -- [facility] Cardiology manages; currently using midodrine, and nitro PRN hypo/hypertension; per , cardiac workup wnl aside from BP changes Chronic back pain COPD (chronic obstructive pulmonary disease) with emphysema Degenerative disc disease Depression Elevated transaminase level Gastroparesis GERD (gastroesophageal reflux disease) Glaucoma History of COVID-19 05/2021 treated for pneumonia at [facility] Hypertension Hypokalemia Hypothyroidism Osteoarthritis Sepsis 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 Uses feeding tube Surgical History H/O esophagogastroduodenoscopy (Unknown) WITH PLACEMENT PEG TUBE History of anesthesia reaction SLOW TO WAKE UP History of neck surgery LUMPECTOMY History of radical neck dissection History of tooth extraction S/P arthroscopic knee surgery (Unknown) RT S/P colonoscopy (Unknown) Family History Brother Family history of diabetes mellitus Social History (Updated 06/05/22 @ 10:59 by Jimena Pimentel DO) Smoking Status: Former smoker Tobacco Type: Cigarettes Second Hand Exposure: Yes (hx); Hx Alcohol Use: No Hx Substance Use: No Preferred Language: Samoan 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 Ability: Unable Set Off Press Operator Required: No Beliefs That Will Affect Care: None marital status: Current Living Situation: Spouse Feels Safe at Home: Yes Safety Concerns: Feels Safe At This Time Assistive Devices: Oxygen - Continuous Review of Systems Review of Systems: All systems reviewed & are unremarkable except as noted in HPI & below Physical Exam Physical Exam: Constitutional: No acute distress HEENT: EOMI, PERRLA, hard to hear, right neck scar present Respiratory system: Decreased air entry bilaterally, no wheeze, rhonchi, positi ve crackles bilateral lower lobes more on the left side CVS: S1-S2 positive, no murmurs or gallops Abdomen: Soft, nontender, nondistended, positive bowel sounds x4, positive PEG Extremities: +2 pulses bilaterally radialis/ dorsalis pedis, no cyanosis, no edema Neuro: Awake alert oriented x3 Psych: Normal mood and affect G/U: No [place] Skin: no rashes, warm and dry Lymphatic: no cervical or axillary lymphadenopathy Results & Data Results & Data ([facility]) Vital Signs (Past 12 Hours) Vital Signs Temp Pulse Pulse Resp BP BP Pulse Ox 06/05/22 11:35 06/05/22 11:35 36.9 C 81 16 91/52 L 96 06/05/22 10:30 107 H 26 H 93/46 L 97 06/05/22 09:55 112 H 26 H 99/51 L 97 06/05/22 09:50 112 H 26 H 99/55 L 98 06/05/22 08:50 88 L 06/05/22 08:57 84 18 93 06/05/22 08:33 171/88 H 06/05/22 08:22 37.0 C 97 H 24 209/125 H 92 O2 Del Method O2 Flow Rate 06/05/22 11:35 Nasal Cannula 2 06/05/22 11:35 Nasal Cannula 2 06/05/22 10:30 Nasal Cannula 2 06/05/22 09:55 Nasal Cannula 2 06/05/22 09:50 Nasal Cannula 2 06/05/22 08:50 Room Air 06/05/22 08:57 Nasal Cannula 2 06/05/22 08:33 06/05/22 08:22 Room Air Laboratory Results 06/05/22 08:28 06/05/22 08:28 PG Care Time/CCT Total # of Minutes Spent Total Time Spent with Patient: Total time spent is greater than 50% in coordination of care (as documented) at patient's floor/unit and/or counseling patient: Coding Level of Care Code 28859 Initial Inpt Care Lvl 3 Diagnoses Aspiration pneumonia J69.0 Acute respiratory failure with hypoxia J96.01 Chronic bronchitis J42 H/O malignant neoplasm of tonsil Z85.818 Ex-smoker Z87.891
[2022-06-05] MEDS ORDERED: FOOD SUPPLEMT LACTOSE REDUCED Feeding Tube SCH (13:00)
[2022-06-05] MEDS ORDERED: POTASSIUM CHLORIDE 40 MEQ in SODIUM CHLORIDE 0.9% 1000ML 1,000 ML IV SCH (13:00)
[2022-06-05] MEDS: FLUTICASONE PROPIONATE NA SPR 16 GM BTL NAE SCH (13:27)
[2022-06-05] MEDS: MIDODRINE HCL 10 MG TAB PO SCH ×2 (13:27→17:59)
[2022-06-05] MEDS: guaiFENesin SUGAR FREE 200 MG/10 ML UDC PO SCH ×2 (13:28→17:59)
[2022-06-05] MEDS: CITALOPRAM 20 MG TAB PEG SCH (13:28)
[2022-06-05] MEDS: POTASSIUM CHLORIDE 20 MEQ/15 ML UDC PEG SCH ×2 (13:28→17:58)
--- NOTE | 2022-06-05 13:39 | Electrocardiogram Report ---
Test Reason : Blood Pressure : / mmHG Vent. Rate : 103 BPM Atrial Rate : 208 BPM P-R Int : 000 ms QRS Dur : 078 ms QT Int : 346 ms P-R-T Axes : 000 -27 -24 degrees QTc Int : 453 ms Poor data quality, interpretation may be adversely affected Sinus tachycardia Lateral injury pattern Abnormal ECG When compared with ECG of 21-MAY-2022 13:19, HR has increased Inferolateral injury pattern is now Present Confirmed by Cipriano Stark ([id number]) on 06/05/2022 1:39:29 PM Referred By: REFERRED SELF Confirmed By:Cipriano Stark
--- NOTE | 2022-06-05 13:45 | Electrocardiogram Report ---
Test Reason : Blood Pressure : / mmHG Vent. Rate : 094 BPM Atrial Rate : 094 BPM P-R Int : 142 ms QRS Dur : 088 ms QT Int : 358 ms P-R-T Axes : 045 -41 041 degrees QTc Int : 447 ms Normal sinus rhythm Left axis deviation Abnormal ECG When compared with ECG of 05-JUN-2022 08:17, (unconfirmed) ST no longer elevated in Lateral leads Confirmed by Cipriano Stark ([id number]) on 06/05/2022 1:45:06 PM Referred By: REFERRED SELF Confirmed By:Cipriano Stark
--- NOTE | 2022-06-05 14:00 | CT Scan Report ---
CT SCAN OF THE CHEST WITHOUT IV CONTRAST CLINICAL HISTORY: Sepsis. Right basilar consolidation seen by x-ray. COMPARISON STUDY: Chest x-ray dated 06/05/2022. Chest CT dated 04/05/2022. TECHNIQUE: CT scan of the thorax was performed from the thoracic inlet to the upper abdomen. Images are reviewed in the axial, sagittal, and coronal planes. IV contrast was not administered for this ex amination as per the referring clinician. A dose lowering technique was utilized adhering to the edouard hook of DON. CT DOSE: 320.49 mGy.cm FINDINGS: Thyroid: Atrophic versus surgically absent. Thoracic aorta: The thoracic aorta is normal in caliber and demonstrates standard 3-vessel arch anato my. Heart: The heart is normal in size and without pericardial effusion. The coronary arteries are densel y calcified. Lungs and pleural spaces: Secretions are seen within the trachea at the thoracic inlet. There is depe ndent bibasilar airspace consolidation, left greater than right. No significant pleural effusion is i dentified. There are numerous scattered calcified granulomas. Mediastinum:. Subcentimeter mediastinal lymph nodes are not pathologically enlarged by size criteria. A prominent subcarinal node measures 2.1 cm in short axis. These are similar to previous. Elayne: Not well assessed without IV contrast. Axillae: There is no axillary lymphadenopathy. Upper abdomen: Partially visualized upper abdominal viscera is within normal limits. Skeletal structures: The skeletal structures are osteopenic. No lytic or blastic bony lesions are see n. Degenerative change is noted in the shoulders and thoracic spine. Soft tissues: The patient is cachectic. IMPRESSION: 1. There is bibasilar airspace consolidation, typical for pneumonia/aspiration pneumonitis. Clinical correlation will be required and radiographic follow-up to resolution is recommended. Follow-up radio graphs should include both PA and lateral views. 2. Secretions are noted in the upper trachea. 3. Prominent mediastinal lymph nodes are similar to previous. 4. Additional findings as above. ACT 112: Negative or not required by law. Electronically signed by: Landen Hopkins M.D. 06/05/2022 1:59 PM
[2022-06-05] MEDS: AMPICILLIN/SULBACTAM SOD 3,000 MG in 0.9 % SODIUM CHLORIDE 100 ML IV SCH ×2 (14:58→20:28)
[2022-06-05] MEDS: AZITHROMYCIN SUSP 200 MG/5 ML GT SCH (15:08)
[2022-06-05] MEDS: ACETYLCYSTEINE 20% INHAL SOLN 4ML ***DISPENSED BY RESP. INH SCH ×2 (15:29→19:48)
[2022-06-05] MEDS: ALBUT/IPRATROP 3MG/0.5MG NEB 3 ML VIAL NEB SCH ×2 (15:29→19:41)
[2022-06-05] MEDS: TUBE FEEDING WATER FLUSH PEG SCH ×2 (16:50→20:03)
[2022-06-05] MEDS: SODIUM CHLOR 7% 4 ML NEB NEB SCH (19:41)
[2022-06-05] MEDS: FORMOTEROL 20 MCG/2 ML VIAL INH SCH (19:41)
[2022-06-05] MEDS: LATANOPROST 0.005% OP SOLN 2.5 ML BTL OPB SCH (20:37)
[2022-06-05] MEDS: BRIMONIDINE TARTRATE 0.2% 5ML OPB SCH (20:37)
[2022-06-05] MEDS: ATORVASTATIN 40 MG TAB PEG SCH (20:37)
[2022-06-05 20:42] LABS: Hematocrit (blood only) 34.9 % (40.1-51.0); Hemoglobin 11.7 g/dl (14.0-18.0); Mean Corpuscular Hemoglobin 33.1 pg (25.0-34.0); Mean Corpuscular Hgb Conc 33.5 g/dL (32.0-36.0); Mean Corpuscular Volume 98.6 fL (80.0-100.0); Mean Platelet Volume 12.4 fL (9.4-12.4); Platelet Count 117 K/uL (130-400); RDW Coefficient of Variation 13.8 % (11.5-14.5); RDW Standard Deviation 50.5 fL (36.4-46.3); Red Blood Count 3.54 M/uL (4.63-6.08); White Blood Count 16.51 K/ul (4.8-10.8)
[2022-06-05 20:48] LABS: BUN Creatinine Ratio 15.5 (10-20); Calcium 7.8 mg/dl (8.5-10.1); Creatinine Clr Calc Pharmacy 64.5 ml/min; Est GFR (African American) 82.6 ml/min; Est GFR (Non-African American) 71.2 ml/min; Potassium 4.8 mmol/L (3.5-5.1); Troponin I High Sensitivity 25.3 pg/ml (0-20)
[2022-06-05] MEDS ORDERED: guaiFENesin 600 MG TABCR PO SCH (21:00)
[2022-06-05 21:01] LABS: Basophils # (auto) 0.02 K/uL (0-0.2); Basophils % (auto) 0.1 %; Immature Granulocytes # (auto) 0.05 K/uL (0.00-0.02); Immature Granulocytes % (auto) 0.3 %; Lymphocytes # (auto) 0.45 K/uL (1.2-3.4); Lymphocytes % (auto) 2.7 %; Monocytes # (auto) 0.54 K/uL (0.24-0.82); Monocytes % (auto) 3.3 %; Neutrophils # (auto) 15.45 K/uL (1.4-6.5); Neutrophils % (auto) 93.6 %
[2022-06-06] MEDS: TUBE FEEDING WATER FLUSH PEG SCH ×7 (00:04→23:15)
[2022-06-06] MEDS ORDERED: LACTATED RINGER'S 1,000 ML IV ONE (00:24)
[2022-06-06] MEDS: guaiFENesin SUGAR FREE 200 MG/10 ML UDC PO SCH ×4 (00:58→18:15)
[2022-06-06] MEDS: FLUDROCORTISONE ACETATE 0.1 MG TAB PO SCH (00:59)
[2022-06-06] MEDS: AMPICILLIN/SULBACTAM SOD 3,000 MG in 0.9 % SODIUM CHLORIDE 100 ML IV SCH ×4 (02:02→20:30)
[2022-06-06] MEDS ORDERED: ALBUMIN 25% 100 mL 25 GM/100 ML VIAL IV ONE (03:32)
[2022-06-06] MEDS: LEVOTHYROXINE SODIUM 88 MCG TABLET PEG SCH (05:41)
[2022-06-06 05:59] LABS: Hemoglobin 11.3 g/dl (14.0-18.0); Mean Corpuscular Hemoglobin 32.6 pg (25.0-34.0); Mean Corpuscular Hgb Conc 33.2 g/dL (32.0-36.0); Mean Platelet Volume 12.1 fL (9.4-12.4); Platelet Count 116 K/uL (130-400); RDW Standard Deviation 50.5 fL (36.4-46.3); Red Blood Count 3.47 M/uL (4.63-6.08); White Blood Count 14.98 K/ul (4.8-10.8)
[2022-06-06 06:20] LABS: BUN Creatinine Ratio 23.7 (10-20); Calcium 8.4 mg/dl (8.5-10.1); Creatinine Clr Calc Pharmacy 87.3 ml/min; Est GFR (African American) 104.2 ml/min; Est GFR (Non-African American) 89.9 ml/min; Phosphorus 2.7 mg/dl (2.5-4.9); Potassium 4.5 mmol/L (3.5-5.1)
[2022-06-06] MEDS: FORMOTEROL 20 MCG/2 ML VIAL INH SCH ×2 (06:55→19:27)
[2022-06-06] MEDS: ALBUT/IPRATROP 3MG/0.5MG NEB 3 ML VIAL NEB SCH ×4 (06:55→19:27)
[2022-06-06] MEDS: SODIUM CHLOR 7% 4 ML NEB NEB SCH ×2 (06:55→19:27)
[2022-06-06] MEDS: ACETYLCYSTEINE 20% INHAL SOLN 4ML ***DISPENSED BY RESP. INH SCH ×2 (06:55→19:27)
--- NOTE | 2022-06-06 07:21 | Pulmonology Progress Note ---
Date of Service June 06, 2022 Assessment & Plan (1) Aspiration pneumonia: (2) Acute respiratory failure with hypoxia: (3) Chronic bronchitis: (4) H/O malignant neoplasm of tonsil: (5) Ex-smoker: Plan CT chest 06/05/2022 personally reviewed: Bilateral apical pleural scarring, more in the right side Secretions appreciated in the lumen of upper trachea Consolidative process appreciated bilaterally lower lobes more on the left side Subcarinal lymphadenopathy (chronic) Consolidative process in the right lower lobe has improved while left lower lobe consolidation is new compared to 04/05/2022 -- Acute respiratory failure with hypoxia Bilateral lower lobe pneumonia, new on the left side Right lower lobe seems to be improving Likely underlying aspiration of secretion Respiratory bio fire negative 06/05/2022 COVID-19 PCR, influenza A/B, RSV negative Procalcitonin 0.19 -- COPD On Spiriva at home --History of head and neck cancer S/p resection and radiation 2011 I doubt that there is progression of his underlying cancer given the waxing and waning lower lobe infiltrates If there is persistent infiltrate appreciated on repeat CAT scan in 2 months the bronchoscopy should be considered Patient might benefit from CoughAssist device on discharge Plan: Continue with Mucomyst and hypertonic saline Flutter valve, will consider CoughAssist if the above measures does not work Patient is not able to use flutter valve. He might benefit from CoughAssist at home. Please note the above document was generated using voice recognition software. It may contain grammatical, syntax or spelling errors.Any formal questions or concerns about the content, text or information contained within the body of this dictation should be directly addressed to the provider for clarification. Consolidative process in the right lower lobe seems to be improved Admission and Anticipated Discharge Date Admission Date: June 05, 2022 Subjective Patient seen and examined at bedside. No acute distress, no adverse events overnight. He was saturating 99% on room air at the time of examination He says that he feels better compared to yesterday Denies any nausea or vomiting No chest pain, shortness of breath is improved Review of Systems Review of Systems: All systems reviewed & are unremarkable except as noted in Subjective Physical Exam Physical Exam: Constitutional: No acute distress HEENT: EOMI, PERRLA, hard to hear, right neck scar present Respiratory system: Decreased air entry bilaterally, no wheeze, rhonchi, positive crackles bilateral lower lobes more on the left side CVS: S1-S2 positive, no murmurs or gallops Abdomen: Soft, nontender, nondistended, positive bowel sounds x4, positive PEG Extremities: +2 pulses bilaterally radialis/ dorsalis pedis, no cyanosis, no edema Neuro: Awake alert oriented x3 Psych: Normal mood and affect G/U: No [place] Skin: no rashes, warm and dry Lymphatic: no cervical or axillary lymphadenopathy Results & Data Results & Data ([facility]) Vital Signs (Past 12 Hours) Vital Signs Temp Pulse Pulse Resp BP BP Pulse Ox 06/06/22 06:30 36.5 C 67 18 122/61 99 06/06/22 04:13 36.4 C L 59 L 16 117/50 L 98 06/06/22 02:03 36.4 C L 62 16 120/71 99 06/06/22 00:22 65 91/43 L 86/49 L 97 06/05/22 22:15 67 06/05/22 23:50 36.7 C 71 18 95/50 L 97 06/05/22 23:20 06/05/22 19:42 65 18 96 06/05/22 19:34 36.8 C 69 18 104/56 L 97 O2 Del Method 06/06/22 06:30 Room Air 06/06/22 04:13 Room Air 06/06/22 02:03 Room Air 06/06/22 00:22 Room Air 06/05/22 22:15 06/05/22 23:50 Room Air 06/05/22 23:20 Room Air 06/05/22 19:42 Room Air 06/05/22 19:34 Room Air Laboratory Results 06/06/22 05:44 06/06/22 05:44 PG Care Time/CCT Total # of Minutes Spent Total Time Spent with Patient: Total time spent is greater than 50% in coordination of care (as documented) at patient's floor/unit and/or counseling patient: Coding Level of Care Code 98871 Subseq Hosp Care Lvl 2 Diagnoses Aspiration pneumonia J69.0 Acute respiratory failure with hypoxia J96.01 Chronic bronchitis J42 H/O malignant neoplasm of tonsil Z85.818 Ex-smoker Z87.891
--- NOTE | 2022-06-06 07:24 | XRay Report ---
XR chest 1V portable CLINICAL HISTORY: crackles COMPARISON STUDY: Chest radiograph and chest CT June 05, 2022. FINDINGS: Lung volumes are normal. Bibasilar opacities persist. There is no pneumothorax or pleural e ffusion. Cardiac size is normal. Mediastinal contours are normal. There is no evidence for pulmonary edema. IMPRESSION: Persistent bibasilar opacities suggestive of pneumonia/aspiration pneumonitis. ACT 112: Negative or not required by law. Electronically signed by: Mike Sosa M.D. 06/06/2022 7:23 AM
[2022-06-06] MEDS: CITALOPRAM 20 MG TAB PEG SCH (08:32)
[2022-06-06] MEDS: BRIMONIDINE TARTRATE 0.2% 5ML OPB SCH ×2 (08:33→20:03)
[2022-06-06] MEDS: MIDODRINE HCL 10 MG TAB PO SCH ×3 (08:37→18:14)
[2022-06-06] MEDS ORDERED: UMECLIDINIUM BROMIDE 62.5MCG/BLISTER 7 PUFFS/INHALER INH SCH (09:00)
[2022-06-06] MEDS: FLUTICASONE PROPIONATE NA SPR 16 GM BTL NAE SCH (13:00)
[2022-06-06] MEDS: AZITHROMYCIN SUSP 200 MG/5 ML GT SCH (13:33)
--- NOTE | 2022-06-06 14:57 | Hospitalist Progress Note ---
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 He had no vomiting but reported nausea prior to admission improved with antiemetic therapy. He is being managed for the following: Likely Sepsis POA: At presentation -->> WBC elevated 13.1 7K, blood pressure 71/50, lactate 3.2, Likely aspiration pneumonia Hypoxemia: 2/2 above, resolved. Patient presented with a history of worsening cough and shortness of breath. In the ED patient was found to be hypoxic and new infiltrate in the right lung. Patient has issues with swallowing and clearing secretions/mucus due to history of head and neck cancer [see above] Respiratory bio fire - 06/05/2022. COVID PCR, influenza A&B and RSV are negative Admitting CXR: New small patchy airspace opacity within the right medial lung base. 06/05 CT chest: Bibasilar airspace consolidation, typical for pneumonia/aspiration pneumonitis. Secretions noted in upper trachea. Prominent mediastinal lymph nodes are similar to previous. Likely aspiration pneumonia, patient started on Unasyn 06/05, continue. c/w azithromycin. Continue with pulmonary toileting and encouraged ambulation, Mucinex, Flonase for PND. Pulmonology on board: Mucomyst, hypertonic saline, patient not able to use flutter valve, might benefit from CoughAssist at home. Radiographic follow-up to resolution recommended. Strict mouth care: [place] all surfaces of the mouth and tongue throughout the day and before bed to reduce the amount of bacteria that can be aspirated in saliva. Protein Calorie malnutrition: 20 pound weight loss reported over the past few months, reports consistent use of boost for nutritional support and has not dropped below his goal of 8 cans/day. Dietitian consulted, appreciate recommendation. Daily weights. Electrolyte abnormalities: Monitor and replete Constipation: Bowel regimen, continue to monitor. 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 Admission and Anticipated Discharge Date Admission Date: June 05, 2022 Subjective Patient seen and examined at bedside as a follow-up of sepsis POA likely secondary to aspiration pneumonia. Patient was lying in bed, on room air, NAD, reports no new acute event overnight, alert, denies any pain or discomfort, reports feeling better, is hard of hearing, patient's by bedside, has not moved bowels since last 6 days, usual habit is generally 4 to 5 days per his , patient denies any headache or dizziness or chest pain or belly pain or other review of symptoms. Physical Exam Physical Exam: GENERAL: Alert and oriented x3. NAD, on RA. [place]. HEENT: No pallor, no icterus. Pupils equal, round and reactive to light. Oral mucosa moist. NECK: No JVD, no neck masses. HEART: S1 and S2 heard. Regular rate and rhythm. No murmur, no gallop. RESPIRATORY SYSTEM: Normal AP diameter. No accessory muscle use. No wheezing, Rt lung w/ crackles. ABDOMEN: Soft, bowel sounds present, nontender, no distention. PEG tube w/o s/s of infection at port of entry. CENTRAL NERVOUS SYSTEM: No facial droop. Obeys simple commands. Moves extremities. EXTREMITIES: No edema, no erythema seen. Results & Data Results & Data ([facility] [place]) Vital Signs (Past 12 Hours) Vital Signs Temp Pulse Pulse Resp BP Pulse Ox O2 Del Method 06/06/22 13:32 36.4 C L 59 L 18 109/62 98 Room Air 06/06/22 11:19 36.5 C 58 L 17 110/66 97 Room Air 06/06/22 11:02 64 18 98 Room Air 06/06/22 06:14 60 06/06/22 08:00 Room Air 06/06/22 06:30 36.5 C 67 18 122/61 99 Room Air 06/06/22 04:13 36.4 C L 59 L 16 117/50 L 98 Room Air (1) Pneumonia Laterality: right Lung location: lower lobe of lung Pneumonia type: due to unspecified organism Qualified Code(s): J18.9 - Pneumonia, unspecified organism
[2022-06-06] MEDS: POLYETHYLENE (MIRALAX) 17 GM PACK PEG SCH (16:10)
[2022-06-06] MEDS: ATORVASTATIN 40 MG TAB PEG SCH (20:03)
[2022-06-06] MEDS: LATANOPROST 0.005% OP SOLN 2.5 ML BTL OPB SCH (20:04)
[2022-06-07] MEDS: guaiFENesin SUGAR FREE 200 MG/10 ML UDC PO SCH ×4 (01:19→18:14)
[2022-06-07] MEDS: AMPICILLIN/SULBACTAM SOD 3,000 MG in 0.9 % SODIUM CHLORIDE 100 ML IV SCH ×2 (03:29→08:14)
[2022-06-07] MEDS: TUBE FEEDING WATER FLUSH PEG SCH ×5 (04:09→20:17)
[2022-06-07] MEDS: LEVOTHYROXINE SODIUM 88 MCG TABLET PEG SCH (05:47)
[2022-06-07] MEDS: ACETYLCYSTEINE 20% INHAL SOLN 4ML ***DISPENSED BY RESP. INH SCH ×2 (06:47→19:09)
[2022-06-07] MEDS: SODIUM CHLOR 7% 4 ML NEB NEB SCH ×2 (06:47→19:08)
[2022-06-07] MEDS: FORMOTEROL 20 MCG/2 ML VIAL INH SCH ×2 (06:47→19:08)
[2022-06-07] MEDS: ALBUT/IPRATROP 3MG/0.5MG NEB 3 ML VIAL NEB SCH ×4 (06:48→19:09)
--- NOTE | 2022-06-07 07:30 | Pulmonology Progress Note ---
Date of Service June 07, 2022 Assessment & Plan (1) Aspiration pneumonia: (2) Acute respiratory failure with hypoxia: (3) Chronic bronchitis: (4) H/O malignant neoplasm of tonsil: (5) Ex-smoker: Plan CT chest 06/05/2022 personally reviewed: Bilateral apical pleural scarring, more in the right side Secretions appreciated in the lumen of upper trachea Consolidative process appreciated bilaterally lower lobes more on the left side Subcarinal lymphadenopathy (chronic) Consolidative process in the right lower lobe has improved while left lower lobe consolidation is new compared to 04/05/2022 -- Acute respiratory failure with hypoxia Bilateral lower lobe pneumonia, new on the left side Right lower lobe seems to be improving Likely underlying aspiration of secretion Respiratory bio fire negative 06/05/2022 COVID-19 PCR, influenza A/B, RSV negative Procalcitonin 0.19 -- COPD On Spiriva at home --History of head and neck cancer S/p resection and radiation 2011 I doubt that there is progression of his underlying cancer given the waxing and waning lower lobe infiltrates If there is persistent infiltrate appreciated on repeat CAT scan in 2 months the bronchoscopy should be considered Patient might benefit from CoughAssist device on discharge Plan: Continue with Mucomyst and hypertonic saline nebulized even on discharge Complete the course of azithromycin for 5 days Can transition Unasyn to amoxicillin clavulanic acid to be taken for total of [address] chest in 6-8 weeks Patient will benefit from CoughAssist at home Case was discussed with Dr. Guillen Please note the above document was generated using voice recognition software. It may contain grammatical, syntax or spelling errors.Any formal questions or concerns about the content, text or information contained within the body of this dictation should be directly addressed to the provider for clarification. Consolidative process in the right lower lobe seems to be improved Admission and Anticipated Discharge Date Admission Date: June 05, 2022 Subjective Patient seen and examined at bedside. No acute distress, no adverse events overnight Overall he says he is feeling better compared to when he came to the hospital Is coughing but not bringing up any phlegm Has been using the flutter valve No chest pain, no nausea vomiting No headache, no blurry vision Review of Systems Review of Systems: All systems reviewed & are unremarkable except as noted in Subjective Physical Exam Physical Exam: Constitutional: No acute distress HEENT: EOMI, PERRLA, hard to hear, right neck scar present Respiratory system: Decreased air entry bilaterally, no wheeze, rhonchi, positive crackles bilateral lower lobes more on the left side CVS: S1-S2 positive, no murmurs or gallops Abdomen: Soft, nontender, nondistended, positive bowel sounds x4, positive PEG Extremities: +2 pulses bilaterally radialis/ dorsalis pedis, no cyanosis, no edema Neuro: Awake alert oriented x3 Psych: Normal mood and affect G/U: No [place] Skin: no rashes, warm and dry Lymphatic: no cervical or axillary lymphadenopathy Results & Data Results & Data ([facility]) Vital Signs (Past 12 Hours) Vital Signs Temp Pulse Pulse Resp BP Pulse Ox O2 Del Method 06/07/22 07:10 60 18 96 Room Air 06/07/22 03:52 36.8 C 67 16 136/74 97 Room Air 06/06/22 22:07 64 06/06/22 23:20 36.7 C 68 18 115/64 98 Room Air 06/06/22 22:47 Room Air Laboratory Results 06/07/22 06:17 06/07/22 06:17 PG Care Time/CCT Total # of Minutes Spent Total Time Spent with Patient: Total time spent is greater than 50% in coordination of care (as documented) at patient's floor/unit and/or counseling patient: Coding Level of Care Code 36713 Subseq Hosp Care Lvl 2 Diagnoses Aspiration pneumonia J69.0 Acute respiratory failure with hypoxia J96.01 Chronic bronchitis J42 H/O malignant neoplasm of tonsil Z85.818 Ex-smoker Z87.891
[2022-06-07 07:44] LABS: Hematocrit (blood only) 32.4 % (40.1-51.0); Hemoglobin 10.7 g/dl (14.0-18.0); Mean Platelet Volume 12.5 fL (9.4-12.4); Platelet Count 110 K/uL (130-400); RDW Coefficient of Variation 14.3 % (11.5-14.5); RDW Standard Deviation 52.4 fL (36.4-46.3); Red Blood Count 3.24 M/uL (4.63-6.08); White Blood Count 7.71 K/ul (4.8-10.8)
[2022-06-07 08:12] LABS: Calcium 8.2 mg/dl (8.5-10.1); Creatinine Clr Calc Pharmacy 84.9 ml/min; Potassium 3.8 mmol/L (3.5-5.1)
[2022-06-07] MEDS: CITALOPRAM 20 MG TAB PEG SCH (08:14)
[2022-06-07] MEDS: BRIMONIDINE TARTRATE 0.2% 5ML OPB SCH ×2 (08:14→20:44)
[2022-06-07] MEDS: MIDODRINE HCL 10 MG TAB PO SCH ×4 (08:16→17:36)
[2022-06-07] MEDS: FLUDROCORTISONE ACETATE 0.1 MG TAB PO SCH (08:17)
[2022-06-07] MEDS: POLYETHYLENE (MIRALAX) 17 GM PACK PEG SCH (08:17)
[2022-06-07] MEDS: AZITHROMYCIN SUSP 200 MG/5 ML GT SCH (13:38)
[2022-06-07] MEDS: FLUTICASONE PROPIONATE NA SPR 16 GM BTL NAE SCH (13:38)
--- NOTE | 2022-06-07 14:18 | Hospitalist Progress Note ---
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 He had no vomiting but reported nausea prior to admission improved with antiemetic therapy. He is being managed for the following: Likely Sepsis POA: At presentation -->> WBC elevated 13.1 7K, blood pressure 71/50, lactate 3.2, Likely aspiration pneumonia Hypoxemia: 2/2 above, resolved. Patient presented with a history of worsening cough and shortness of breath. In the ED patient was found to be hypoxic and new infiltrate in the right lung. Patient has issues with swallowing and clearing secretions/mucus due to history of head and neck cancer [see above] Respiratory bio fire - 06/05/2022. COVID PCR, influenza A&B and RSV are negative Admitting CXR: New small patchy airspace opacity within the right medial lung base. 06/05 CT chest: Bibasilar airspace consolidation, typical for pneumonia/aspiration pneumonitis. Secretions noted in upper trachea. Prominent mediastinal lymph nodes are similar to previous. Likely aspiration pneumonia, patient started on Unasyn 06/05, to Augmentin to complete 10 days. c/w azithromycin to complete 5 days. Continue with pulmonary toileting and encouraged ambulation, Mucinex, Flonase for PND. Mucomyst and hypertonic saline nebulized on discharge as well. Pulmonology on board: Mucomyst, hypertonic saline, patient not able to use flutter valve, might benefit from CoughAssist at home. Radiographic follow-up to resolution recommended. CT chest in 6 weeks. Strict mouth care: [place] all surfaces of the mouth and tongue throughout the day and before bed to reduce the amount of bacteria that can be aspirated in saliva. d/w pulm. Protein Calorie malnutrition: 20 pound weight loss reported over the past few months, reports consistent use of boost for nutritional support and has not dropped below his goal of 8 cans/day. Dietitian consulted, appreciate recommendation. Daily weights. Electrolyte abnormalities: Monitor and replete Constipation: Bowel regimen, continue to monitor. 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 OT cleared for home, CM working w/ coughassist device, pt's would like him to be discharged when coughassist device is taken care of. Likely satya. Prescription provided to CM. Admission and Anticipated Discharge Date Admission Date: June 05, 2022 Subjective Patient seen and examined at bedside as a follow-up of sepsis POA likely s econdary to aspiration pneumonia. Patient was lying in bed, on room air, NAD, reports no new acute event overnight, alert, denies any pain or discomfort, reports feeling better, is hard of hearing, patient's by bedside, pt moved bowels, usual habit is generally 4 to 5 days per his , patient denies any headache or dizziness or chest pain or belly pain or other review of symptoms. Complains of not being able to bring up the phlegm. Physical Exam Physical Exam: GENERAL: Alert and oriented x3. NAD, on RA. [place]. HEENT: No pallor, no icterus. Pupils equal, round and reactive to light. Oral mucosa moist. NECK: No JVD, no neck masses. HEART: S1 and S2 heard. Regular rate and rhythm. No murmur, no gallop. RESPIRATORY SYSTEM: Normal AP diameter. No accessory muscle use. No wheezing, No crackles. ABDOMEN: Soft, bowel sounds present, nontender, no distention. PEG tube w/o s/s of infection at port of entry. CENTRAL NERVOUS SYSTEM: No facial droop. Obeys simple commands. Moves extremities. EXTREMITIES: No edema, no erythema seen. Results & Data Results & Data ([facility]) Vital Signs (Past 12 Hours) Vital Signs Temp Pulse Pulse Resp BP BP Pulse Ox 06/07/22 11:31 36.6 C 60 16 138/61 97 06/07/22 06:15 62 06/07/22 08:00 06/07/22 07:53 36.6 C 62 18 98/55 L 96 06/07/22 07:10 60 18 96 06/07/22 03:52 36.8 C 67 16 136/74 97 O2 Del Method 06/07/22 11:31 Room Air 06/07/22 06:15 06/07/22 08:00 Room Air 06/07/22 07:53 Room Air 06/07/22 07:10 Room Air 06/07/22 03:52 Room Air (1) Pneumonia Laterality: right Lung location: lower lobe of lung Pneumonia type: due to unspecified organism Qualified Code(s): J18.9 - Pneumonia, unspecified organism
[2022-06-07] MEDS: AMOXICILLIN/CLAVULANATE 875 MG TAB PO SCH (16:08)
[2022-06-07] MEDS ORDERED: AMOXICILLIN/CLAVULANATE 875 MG TAB PO SCH (17:00)
[2022-06-07] MEDS: LATANOPROST 0.005% OP SOLN 2.5 ML BTL OPB SCH (20:44)
[2022-06-07] MEDS: ATORVASTATIN 40 MG TAB PEG SCH (20:45)
--- NOTE | 2022-06-07 21:47 | Electrocardiogram Report ---
Test Reason : Blood Pressure : / mmHG Vent. Rate : 065 BPM Atrial Rate : 065 BPM P-R Int : 124 ms QRS Dur : 082 ms QT Int : 464 ms P-R-T Axes : 022 -31 012 degrees QTc Int : 482 ms Normal sinus rhythm Left axis deviation Prolonged QT Abnormal ECG When compared with ECG of 05-JUN-2022 08:30, QT has lengthened Confirmed by Ian Álvarez ([id number]) on 06/07/2022 9:46:45 PM Referred By: REFERRED SELF Confirmed By:Ian Álvarez
[2022-06-08] MEDS: TUBE FEEDING WATER FLUSH PEG SCH ×7 (00:01→23:44)
[2022-06-08] MEDS: LEVOTHYROXINE SODIUM 88 MCG TABLET PEG SCH (05:46)
[2022-06-08] MEDS: FORMOTEROL 20 MCG/2 ML VIAL INH SCH ×2 (06:54→19:17)
[2022-06-08] MEDS: SODIUM CHLOR 7% 4 ML NEB NEB SCH ×2 (06:54→19:17)
[2022-06-08] MEDS: ACETYLCYSTEINE 20% INHAL SOLN 4ML ***DISPENSED BY RESP. INH SCH ×2 (06:54→19:17)
[2022-06-08] MEDS: ALBUT/IPRATROP 3MG/0.5MG NEB 3 ML VIAL NEB SCH ×4 (06:54→19:17)
[2022-06-08] MEDS ORDERED: PROMETHAZINE HCL 12.5 MG/10 ML UDP PO PRN (07:31)
[2022-06-08] MEDS: BRIMONIDINE TARTRATE 0.2% 5ML OPB SCH ×2 (09:30→21:01)
[2022-06-08] MEDS: guaiFENesin SUGAR FREE 200 MG/10 ML UDC PO SCH ×4 (09:30→18:21)
[2022-06-08] MEDS: MIDODRINE HCL 10 MG TAB PO SCH ×3 (09:31→17:04)
[2022-06-08] MEDS: CITALOPRAM 20 MG TAB PEG SCH (09:31)
[2022-06-08] MEDS: FLUDROCORTISONE ACETATE 0.1 MG TAB PO SCH (09:31)
[2022-06-08] MEDS: POLYETHYLENE (MIRALAX) 17 GM PACK PEG SCH (09:32)
[2022-06-08] MEDS: AMOXICILLIN/CLAVULANATE 875 MG TAB PO SCH ×2 (09:32→17:09)
[2022-06-08] MEDS: PEPTAMEN 1.5 CAL 1,000 ML BAG PEG SCH ×2 (10:00→16:00)
[2022-06-08] MEDS: FLUTICASONE PROPIONATE NA SPR 16 GM BTL NAE SCH (14:24)
[2022-06-08] MEDS: AZITHROMYCIN SUSP 200 MG/5 ML GT SCH (14:24)
--- NOTE | 2022-06-08 16:48 | Hospitalist Progress Note ---
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 He had no vomiting but reported nausea prior to admission improved with antiemetic therapy. He is being managed for the following: Likely Sepsis POA: At presentation -->> WBC elevated 13.1 7K, blood pressure 71/50, lactate 3.2, Likely aspiration pneumonia Hypoxemia: 2/2 above, resolved. Patient presented with a history of worsening cough and shortness of breath. In the ED patient was found to be hypoxic and new infiltrate in the right lung. Patient has issues with swallowing and clearing secretions/mucus due to history of head and neck cancer [see above] Respiratory bio fire - 06/05/2022. COVID PCR, influenza A&B and RSV are negative Admitting CXR: New small patchy airspace opacity within the right medial lung base. 06/05 CT chest: Bibasilar airspace consolidation, typical for pneumonia/aspiration pneumonitis. Secretions noted in upper trachea. Prominent mediastinal lymph nodes are similar to previous. Likely aspiration pneumonia, patient started on Unasyn 06/05, to Augmentin to complete 10 days. c/w azithromycin to complete 5 days. Continue with pulmonary toileting and encouraged ambulation, Mucinex, Flonase for PND. Mucomyst and hypertonic saline nebulized on discharge as well. Pulmonology on board: Mucomyst, hypertonic saline, patient not able to use flutter valve, might benefit from CoughAssist at home. Radiographic follow-up to resolution recommended. CT chest in 6 weeks. Strict mouth care: [place] all surfaces of the mouth and tongue throughout the day and before bed to reduce the amount of bacteria that can be aspirated in saliva. Awaiting coughassist device (Poor cough w/ h/o Cancer, failed flutter valve therapy) Protein Calorie malnutrition: 20 pound weight loss reported over the past few months, reports consistent use of boost for nutritional support and has not dropped below his goal of 8 cans/day. Dietitian consulted, appreciate recomme ndation. Daily weights. Electrolyte abnormalities: Monitor and replete Constipation: Bowel regimen, continue to monitor. 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 OT cleared for home, CM working w/ coughassist device, pt's would like him to be discharged when coughassist device is taken care of. awaiting determination. Prescription provided to CM. Admission and Anticipated Discharge Date Admission Date: June 05, 2022 Subjective Patient seen and examined at bedside as a follow-up of sepsis POA likely secondary to aspiration pneumonia. Patient was lying in bed, on room air, NAD, reports no new acute event overnight, alert, denies any pain or discomfort, reports feeling better, is hard of hearing, patient's by bedside, pt moving bowels ok, usual habit is generally 4 to 5 days per his , patient denies any headache or dizziness or chest pain or belly pain or other review of symptoms. Complains of not being able to bring up the phlegm. Physical Exam Physical Exam: GENERAL: Alert and oriented x3. NAD, on RA. [place]. HEENT: No pallor, no icterus. Pupils equal, round and reactive to light. Oral mucosa moist. NECK: No JVD, no neck masses. HEART: S1 and S2 heard. Regular rate and rhythm. No murmur, no gallop. RESPIRATORY SYSTEM: Normal AP diameter. No accessory muscle use. No wheezing, No crackles. ABDOMEN: Soft, bowel sounds present, nontender, no distention. PEG tube w/o s/s of infection at port of entry. CENTRAL NERVOUS SYSTEM: No facial droop. Obeys simple commands. Moves extremities. EXTREMITIES: No edema, no erythema seen. Results & Data Results & Data ([facility]) Vital Signs (Past 12 Hours) Vital Signs Temp Pulse Pulse Resp BP BP Pulse Ox 06/08/22 15:29 36.9 C 60 18 143/80 H 142/81 H 97 06/08/22 15:24 60 06/08/22 11:44 37.0 C 64 17 92/53 L 96 06/08/22 11:14 62 18 94 06/08/22 10:15 06/08/22 08:19 37.0 C 58 L 17 100/59 L 97 06/08/22 07:57 59 L 18 95 06/08/22 07:41 57 L O2 Del Method 06/08/22 15:29 Room Air 06/08/22 15:24 06/08/22 11:44 Room Air 06/08/22 11:14 Room Air 06/08/22 10:15 Room Air 06/08/22 08:19 Room Air 06/08/22 07:57 Room Air 06/08/22 07:41 (1) Pneumonia Laterality: right Lung location: lower lobe of lung Pneumonia type: due to unspecified organism Qualified Code(s): J18.9 - Pneumonia, unspecified organism
[2022-06-08] MEDS: LATANOPROST 0.005% OP SOLN 2.5 ML BTL OPB SCH (21:01)
[2022-06-08] MEDS: ATORVASTATIN 40 MG TAB PEG SCH (21:01)
[2022-06-09] MEDS: guaiFENesin SUGAR FREE 200 MG/10 ML UDC PO SCH ×3 (01:18→13:24)
[2022-06-09] MEDS: TUBE FEEDING WATER FLUSH PEG SCH ×3 (04:17→12:47)
[2022-06-09] MEDS: LEVOTHYROXINE SODIUM 88 MCG TABLET PEG SCH (06:12)
[2022-06-09 06:35] LABS: BUN Creatinine Ratio 23.1 (10-20); Calcium 8.5 mg/dl (8.5-10.1); Est GFR (African American) 103.1 ml/min; Est GFR (Non-African American) 88.9 ml/min; Magnesium 2.2 mg/dl (1.7-2.4); Potassium 3.9 mmol/L (3.5-5.1)
[2022-06-09] MEDS: SODIUM CHLOR 7% 4 ML NEB NEB SCH (06:55)
[2022-06-09] MEDS: ACETYLCYSTEINE 20% INHAL SOLN 4ML ***DISPENSED BY RESP. INH SCH (07:08)
[2022-06-09] MEDS: ALBUT/IPRATROP 3MG/0.5MG NEB 3 ML VIAL NEB SCH ×3 (07:08→14:05)
[2022-06-09] MEDS: FORMOTEROL 20 MCG/2 ML VIAL INH SCH (07:26)
[2022-06-09] MEDS: BRIMONIDINE TARTRATE 0.2% 5ML OPB SCH (09:02)
[2022-06-09] MEDS: FLUDROCORTISONE ACETATE 0.1 MG TAB PO SCH (09:03)
[2022-06-09] MEDS: MIDODRINE HCL 10 MG TAB PO SCH ×2 (09:03→13:30)
[2022-06-09] MEDS: POLYETHYLENE (MIRALAX) 17 GM PACK PEG SCH (09:03)
[2022-06-09] MEDS: CITALOPRAM 20 MG TAB PEG SCH (09:03)
[2022-06-09] MEDS: AMOXICILLIN/CLAVULANATE 875 MG TAB PO SCH (09:04)
[2022-06-09] MEDS: PEPTAMEN 1.5 CAL 1,000 ML BAG PEG SCH (09:04)
[2022-06-09] MEDS: FLUTICASONE PROPIONATE NA SPR 16 GM BTL NAE SCH (13:23)
[2022-06-09] MEDS: AZITHROMYCIN SUSP 200 MG/5 ML GT SCH (13:25)
--- NOTE | 2022-06-09 14:19 | Discharge Summary ---
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 He doesn't take anything PO and all nutrition is given through his PED. He was recently hospitalized 04/19/22 for fatigue and was found to have a possible unresolved pneumonia on the left base. He has a long history of coughing which contributed to his last admission. He doesn't wear oxygen at baseline. He was treated and sent home to finish a course of cefdinir and doxycycline. He returns today with increased SOB and coughing. helps with the history and states that he looked well yesterday and they went to [facility] last night together. She said that before MN he started becoming SOB very suddenly and was shaking as if he had chills. There were no fevers and he has a cough present. He has no vomiting but did report nausea two days ago, improved with antiemetic therapy. He feels improved after the 1 hr neb this morning. reported wheezing that was audible overnight. No chest or abdominal pain. Admission Exam Per Admitting Provider CONSTITUTIONAL: thin, frail, vitals as above, generally ill-appearing, fatigued EYES: normal conjunctivae, no scleral icterus ENT: external ear and nose normal, oropharynx clear with evidence of post-nasal drip and distorted anatomy in that he has less of a posterior tongue on the right. NECK: trachea midline RESPIRATORY: coarse rhonchi at bases, no wheezes, normal respiratory effort CARDIOVASCULAR: regular rate and rhythm, S1 and 2 heard without murmurs, gallops or rubs, no JVD, no peripheral edema CHEST: inspection of chest was normal GASTROINTESTINAL: normal bowel sounds, soft, nontender, ND MUSCULOSKELETAL: strength 5/5 throughout, head is normocephalic and atraumatic, neck supple, normal palpation of chest wall without tenderness SKIN: warm and dry, no rashes NEUROLOGIC: CN 2-12 grossly intact, no sensory deficit, normal cognition, alt ered speech historically that is at his baseline, no tremor PSYCHIATRIC: alert cooperative and oriented to person, place and time. Euthymic mood, makes good eye contact, language grossly intact, recent and remote memory grossly intact. Principal Diagnosis Sepsis POA Recurrent aspiration pneumonia Discharge Exam GENERAL: Alert and oriented x3. NAD, on RA. EGEGIK. HEENT: No pallor, no icterus. Pupils equal, round and reactive to light. Oral mucosa moist. NECK: No JVD, no neck masses. HEART: S1 and S2 heard. Regular rate and rhythm. No murmur, no gallop. RESPIRATORY SYSTEM: Normal AP diameter. No accessory muscle use. No wheezing, No crackles. ABDOMEN: Soft, bowel sounds present, nontender, no distention. PEG tube w/o s/s of infection at port of entry. CENTRAL NERVOUS SYSTEM: No facial droop. Obeys simple commands. Moves extremities. EXTREMITIES: No edema, no erythema seen. Discharge Data Allergies Allergy/AdvReac Type Severity Reaction Status Date / Time levofloxacin Allergy Intermediate rash all Verified 01/20/22 23:48 over body sulfamethoxazole Allergy Intermediate ITCHING Verified 01/20/22 23:48 trimethoprim Allergy Intermediate ITCHING Verified 01/20/22 23:48 sertraline Allergy Mild NOSE BLEEDS Verified 01/20/22 23:48 terazosin Allergy Unknown DOES NOT Verified 01/20/22 23:48 KNOW Nitrate Analogues AdvReac Severe DROP IN BP Verified 01/20/22 23:48 Consultations 06/05/22 09:35 ED Decision to Admit Stat 06/05/22 12:12 Consult Pulmonology Routine Ordered Studies 06/05/22 12:26 CT chest diagnostic wo con Urgent Hospital Course (1) Pneumonia: Plan 76-year-old male with PMH of head and neck cancer status post radical dissection of right neck status post XRT and PEG tube placement, ex smoker, does not take anything p.o., recurrent aspiration pneumonia, does not wear oxygen at baseline, altered speech presented to the ED 06/05 with complaint of shortness of breath and coughing that started 1 day ago [employer] associated with chills but no fevers. He had no vomiting but reported nausea prior to admission improved with antiemetic therapy. He is being managed for the following: Likely Sepsis POA: At presentation -->> WBC elevated 13.1 7K, blood pressure 71/50, lactate 3.2, Likely aspiration pneumonia Hypoxemia: 2/2 above, resolved. Patient presented with a history of worsening cough and shortness of breath. In the ED patient was found to be hypoxic and new infiltrate in the right lung. Patient has issues with swallowing and clearing secretions/mucus due to history of head and neck cancer [see above] Respiratory bio fire - 06/05/2022. COVID PCR, influenza A&B and RSV are negative Admitting CXR: New small patchy airspace opacity within the right medial lung base. 06/05 CT chest: Bibasilar airspace consolidation, typical for pneumonia/aspiration pneumonitis. Secretions noted in upper trachea. Prominent mediastinal lymph nodes are similar to previous. Likely aspiration pneumonia, patient started on Unasyn 06/05, to Augmentin to complete 10 days. c/w azithromycin to complete 5 days. Continue with pulmonary toileting and encouraged ambulation, Mucinex, Flonase for PND. Mucomyst and hypertonic saline nebulized on discharge as well. Pulmonology evaluated: Mucomyst, hypertonic saline, patient not able to use flutter valve, might benefit from CoughAssist at home, not approved by his insurance per CM. Radiographic follow-up to resolution recommended. CT chest in 6 weeks. Strict mouth care: Innis all surfaces of the mouth and tongue throughout the day and before bed to reduce the amount of bacteria that can be aspirated in saliva. Awaiting coughassist device (Poor cough w/ h/o Cancer, failed flutter valve therapy) not approved by insurance. Protein Calorie malnutrition: 20 pound weight loss reported over the past few months, reports consistent use of boost for nutritional support and has not dropped below his goal of 8 cans/day. Dietitian consulted, appreciate recommendation. Daily weights. Electrolyte abnormalities: Monitor and replete Constipation: Bowel regimen, continue to monitor. 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 OT cleared for home, CM working w/ coughassist device, pt's would like him to be discharged when coughassist device is taken care of. awaiting determination. Prescription provided to CM. Following instructions at the point of discharge: Follow up with your primary care physician within a week time and likely you will need blood tests cbc/cmp/mg level. Establish and maintain follow up with lung doctor. You will likely need CT chest in 6 weeks to document resolution of your pneumonia, coordinate with your PCP or lung doctor. Continue with flutter valve and incentive spirometer. Continue with Mucomyst and hypertonic saline nebulization at home. Continue with strict mouth care: Innis all surfaces of the mouth and tongue throughout the day and before bed to reduce the amount of bacteria that can be aspirated in saliva. Take your antibiotics as prescribed. Take your meds as prescribed. Please make sure that you are able to get your medications today by calling your pharmacy before you leave the hospital so that your treatment continuity is not broken. Home Health Attestation I certify that this patient is under my care and that I, or a physicians licensed physical therapy assistant working with me, had a face to-face encounter that meets the home health [id number] encounter requirements with this patient. The encounter with the patient was in whole, or in part, for the following medical condition, which is the primary reason for home health care (list medical condition): I certify that, based on my findings, the following services are medically necessary home health services: My clinical findings support the need for the above services because: Further, I certify that my clinical findings support that this patient is homebound (i.e. absences from home require considerable and taxing effort and are for medical reasons or catholic services or infrequently or of short duration when for other reasons) because: Certification for Home Health Services: Based on the above findings, I certify that this patient is confined to the home and needs intermittent mcc care, physical therapy and/or speech therapy or continues to need occupational therapy. The patient is under my care, and I have initiated the establishment of the plan of care. This patient will be followed by a physician who will periodically review the plan of care. Total Time Total Time Spent Total Time Spent (In Minutes): 40 Discharge Plan Discharge Items Patient Disposition: Home - Home Health Services Reason For Visit: SOB Discharge Diagnosis: Sepsis POA Recurrent aspiration pneumonia Activity: Resume your previous activity Non-emergency contact: Primary Care Provider Call non-emergency contact if: you have any medication questions, your symptoms worsen and your temperature is above 101 Follow-up/Referrals: Sanjiv Hart MD [Primary Care Provider] - (Date & Time 06/12/2022 10:20 AM Provider Sanjiv Hart III, MD [facility] ) Diet: Other - See Diet Comment Diet Comment: Continue your prior tube feed diet. Addtl Attending Provider Instructions: Follow up with your primary care physician within a week time and likely you will need blood tests cbc/cmp/mg level. Establish and maintain follow up with lung doctor. You will likely need CT chest in 6 weeks to document resolution of your pneumonia, coordinate with your PCP or lung doctor. Continue with flutter valve and incentive spirometer. Continue with Mucomyst and hypertonic saline nebulization at home. Continue with strict mouth care: Innis all surfaces of the mouth and tongue throughout the day and before bed to reduce the amount of bacteria that can be aspirated in saliva. Take your antibiotics as prescribed. Take your meds as prescribed. Please make sure that you are able to get your medications today by calling your pharmacy before you leave the hospital so that your treatment continuity is not broken. Pending Studies at Discharge: Yes (Admitting blood culture. Sputum culture. ) Stand-Alone Forms: My [facility] OPHTHONIX, Smoking Cessation Medications and DC Order Prescriptions: New amoxicillin-pot clavulanate 875-125 mg Tablet 1 tab PO BIDM 6 Days Qty: 12 0RF formoterol fumarate [Perforomist] 20 mcg/2 mL Solution For Nebulization 20 mcg inhalation BIDR Qty: 120 0RF sodium chloride 7 % Solution For Nebulization 4 ml NEB BIDR Qty: 240 0RF fluticasone propionate 50 mcg/actuation [place],Suspension 2 spray JONN HS Qty: 16 0RF acetylcysteine 200 mg/mL (20 %) Solution 5 ml inhalation Q12H Qty: 100 0RF Continued latanoprost 0.005 % Drops 1 drp OPB HS citalopram 20 mg tablet 20 mg Feeding Tube QAM Nutritional Drink Liquid 2 can Feeding Tube QID Rx Instructions: BOOST (2 CANS QID) brimonidine 0.2 % drops 1 drp OPB BID albuterol sulfate 90 mcg/actuation HFA aerosol inhaler 2 puff INHALATION QID PRN (Reason: Shortness Of Breath) acetaminophen [Tylenol Extra Strength] 500 mg Tablet 1,000 mg PO Q6H PRN (Reason: Pain) levothyroxine [Euthyrox] 88 mcg tablet 88 mcg feeding tube QAM atorvastatin 40 mg tablet 40 mg feeding tube HS midodrine 5 mg Tablet 10 mg feeding tube TID PRN (Reason: Hypotension) Rx Instructions: PRN systolic BP < 180 fludrocortisone 0.1 mg tablet 0.1 mg feeding tube DAILY Spiriva Respimat 2.5 mcg/actuation mist 2 puff INHALATION DAILY Discharge Orders: Discharge Order (Routine); Ordered 06/09/22 Ordered By: Jaquan Edmonds/Other Patient Handouts: Coughing Techniques, Dysphagia Tongue Exercises Admission Data Admit Date/Time: 06/05/22 10:13 Attending Provider: Jaquan Guillen Admit Provider: Jimena Pimentel Primary Care Provider: Sanjiv Hart Other Providers: Jimena Pimentel ; Germaine Simon Other Interventions: Discharge Summary Assessment (RN) Last Done: 06/09/22 13:59
[2022-06-09] MEDS ORDERED: ACETYLCYSTEINE 20% INHAL SOLN 4ML ***DISPENSED BY RESP. INH SCH (19:00)
== END 2022-06-09 17:21 | disposition home or self-care (01) | DRG 871 ==
LOC: ED 08:12 → SUATTDRO 10:13 → 2S 10:13

== ENCOUNTER 2022-06-13 01:47 | Inpatient (IN) ==
[2022-06-13] MEDS ORDERED: DEXAMETHASONE SOD INJ 4 MG/ML VIAL IV STA (02:37)
[2022-06-13] MEDS ORDERED: ACETAMINOPHEN SUSP 1000 MG/31.2 ML UDP PO STA (03:00)
[2022-06-13 03:06] LABS: Basophils # (auto) 0.03 K/uL (0-0.2); Basophils % (auto) 0.4 %; Eosinophils # (auto) 0.23 K/uL (0-0.50); Eosinophils % (auto) 2.7 %; Hematocrit (blood only) 42.5 % (40.1-51.0); Hemoglobin 14.2 g/dl (14.0-18.0); Immature Granulocytes # (auto) 0.07 K/uL (0.00-0.02); Immature Granulocytes % (auto) 0.8 %; Lymphocytes # (auto) 0.52 K/uL (1.2-3.4); Lymphocytes % (auto) 6.2 %; Mean Corpuscular Hemoglobin 32.9 pg (25.0-34.0); Mean Corpuscular Hgb Conc 33.4 g/dL (32.0-36.0); Mean Corpuscular Volume 98.6 fL (80.0-100.0); Mean Platelet Volume 10.9 fL (9.4-12.4); Monocytes # (auto) 0.59 K/uL (0.24-0.82); Neutrophils # (auto) 6.94 K/uL (1.4-6.5); Neutrophils % (auto) 82.9 %; Platelet Count 217 K/uL (130-400); RDW Coefficient of Variation 13.4 % (11.5-14.5); RDW Standard Deviation 49.4 fL (36.4-46.3); Red Blood Count 4.31 M/uL (4.63-6.08); White Blood Count 8.38 K/ul (4.8-10.8)
[2022-06-13] MEDS ORDERED: ALBUT/IPRATROP 3MG/0.5MG NEB 3 ML VIAL NEB STA (03:17)
[2022-06-13 03:18] LABS: Influenza B virus by PCR Negative (Neg); RSV by PCR Negative (Neg)
--- NOTE | 2022-06-13 03:26 | Emergency Department Note ---
Impression & Plan Hypoxia, Influenza A, COVID-19 Admit to the [facility] ED Provider Note NAME: DEMETRIO WELSH AGE: 76 SEX: M ARRIVES VIA: Walk-In INFORMANT: Patient ED PROVIDER(S): Gabriella Weaver DO CHIEF COMPLAINT: Fever and productive cough PLAN: Disposition: Admit to the [facility] Condition: Fair MEDICAL DECISION MAKING: This is a 76-year-old male patient who presents to the emergency department tonight with increasing fever and productive cough. The patient is currently being treated with Augmentin after being discharged from the hospital 4 days ago with pneumonia. Triage Nursing notes reviewed and agree with them. Additional history obtained from the patient's who is at the bedside Prior medical records reviewed Vital Signs: reviewed and remarkable for hypertension, fever and tachycardia Differential diagnosis: Acute viral illness, sepsis, worsening pneumonia ER treatment provided: IV Decadron DuoNeb Diagnostics interpreted by me: ECG: Normal sinus rhythm at a rate of [address] segment elevation or signs of ischemia. There is no ectopy. Cardiac Monitoring: Normal sinus rhythm 80 Laboratory studies: See below Imaging studies: As per my interpretation Portable chest x-ray: Improvement in the previously diagnosed pneumonia HPI: 76/M arrives for evaluation of fever and productive cough. Patient was discharged from the hospital on June 09 with diagnosis of aspiration pneumonia. The patient was discharged home on Augmentin. The explains that the patient was doing well until earlier tonight when he developed a fever again and his cough worsened to the point he had production of thick yellow sp utum. He also developed diarrhea earlier today. ROS: See above HPI for pertinent positives & negatives. A total of 10 systems reviewed and were otherwise negative. PAST MEDICAL HISTORY:See Below PAST SURGICAL HISTORY:See Below FAMILY HISTORY:See Below SOCIAL HISTORY:See Below HOME MEDICATIONS:See list ALLERGIES:See list VITALS:See Below PHYSICAL EXAMINATION: HEENT: Head - normocephalic and atraumatic. Pupils are equal, round, and reactive to light. Extraocular eye muscles are intact, and sclera are anicteric. Nose - moist nasal mucosa without discharge. Mouth - moist buccal mucosa. Oropharynx is nonerythematous and there is no tonsillar exudate or edema noted. Neck: Supple; no cervical lymphadenopathy or nuchal rigidity Heart: Regular rate and rhythm. There is a normal S1 and S2 with no murmurs, clicks, or gallops appreciated. Lungs: Inspiratory and expiratory wheezes Abdomen: Soft, completely nontender, nondistended, with good bowel sounds. There are no palpable pulsatile masses or hepatosplenomegaly. There is no guarding, rigidity, or rebound noted. Extremities: No evidence of cyanosis, clubbing, or edema. There are easily palpable peripheral pulses. Skin: warm and dry with good turgor and no rashes. ED COURSE: Times/Reassessments: 220: The patient was evaluated in room A-9. A complete history and physical was performed. A septic protocol was performed. The patient had a portable chest x-ray. A twelve-lead EKG was obtained as described above. An order was placed for continuous cardiac monitoring. Patient was in a normal sinus rhythm at a rate of 80. O2 saturations at rest were dropping below 90%. The patient was placed on supplemental oxygen. His nose was swabbed for influenza, RSV and COVID. Patient was given a dose of IV Decadron and a DuoNeb treatment. I reviewed the results of the laboratory studies with the patient and his . I discussed the case with the [facility] Hospitalist and they will evaluate for further management. Gabriella Weaver DO Past Med/Surg History Medical History (Updated 06/13/22 @ 05:34 by Gabriella Weaver DO) Anxiety Aspiration pneumonia hx - CAN NOT TAKE FOOD/LIQUIDS ORALLY Asthma rare use of PRN inh Benign prostatic hyperplasia (Unknown) Blood pressure instability new issue for pt -- [facility] Cardiology manages; currently using midodrine, and nitro PRN hypo/hypertension; per , cardiac workup wnl aside from BP changes Chronic back pain COPD (chronic obstructive pulmonary disease) with emphysema Degenerative disc disease Depression Elevated transaminase level Gastroparesis GERD (gastroesophageal reflux disease) Glaucoma History of COVID-19 05/2021 treated for pneumonia at [facility] Hypertension Hypokalemia Hypothyroidism Osteoarthritis Sepsis 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 Uses feeding tube Surgical History H/O esophagogastroduodenoscopy (Unknown) WITH PLACEMENT PEG TUBE History of anesthesia reaction SLOW TO WAKE UP History of neck surgery LUMPECTOMY History of radical neck dissection History of tooth extraction S/P arthroscopic knee surgery (Unknown) RT S/P colonoscopy (Unknown) Family History Brother Family history of diabetes mellitus Social History (Updated 06/05/22 @ 10:59 by Jimena Pimentel DO) Smoking Status: Former smoker Tobacco Type: Cigarettes Second Hand Exposure: Yes (hx); Hx Alcohol Use: No Hx Substance Use: No Preferred Language: [place] 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 Ability: Effective Rehab Technician Required: No Beliefs That Will Affect Care: None marital status: Current Living Situation: Spouse Feels Safe at Home: Yes Assistive Devices: Glasses and Nebulizer Allergies Allergies Allergy/AdvReac Type Severity Reaction Status Date / Time levofloxacin Allergy Intermediate rash all Verified 01/20/22 23:48 over body sulfamethoxazole Allergy Intermediate ITCHING Verified 01/20/22 23:48 trimethoprim Allergy Intermediate ITCHING Verified 01/20/22 23:48 sertraline Allergy Mild NOSE BLEEDS Verified 01/20/22 23:48 terazosin Allergy Unknown DOES NOT Verified 01/20/22 23:48 KNOW Nitrate Analogues AdvReac Severe DROP IN BP Verified 01/20/22 23:48 Home Meds Home Medications Medication Instructions Recorded Confirmed citalopram 20 mg tablet 20 mg feeding tube QAM 05/07/18 06/05/22 food supplemt, lactose-reduced 2 can feeding tube QID 05/07/18 06/05/22 (Nutritional Drink oral liquid) latanoprost 0.005 % eye drops 1 drp OPB HS 01/30/19 06/05/22 albuterol sulfate 90 mcg/actuation 2 puff inhalation QID PRN 11/08/20 06/05/22 aerosol inhaler Shortness Of Breath brimonidine 0.2 % eye drops 1 drp OPB BID 11/08/20 06/05/22 acetaminophen 500 mg tablet 1,000 mg PO Q6H PRN Pain 03/06/21 06/05/22 (Tylenol Extra Strength) levothyroxine 88 mcg tablet 88 mcg feeding tube QAM 04/06/21 06/05/22 (Euthyrox) midodrine 5 mg tablet 10 mg feeding tube TID PRN 05/13/21 06/05/22 Hypotension atorvastatin 40 mg tablet 40 mg feeding tube HS 06/02/21 06/05/22 fludrocortisone 0.1 mg tablet 0.1 mg feeding tube DAILY 06/05/22 06/05/22 tiotropium bromide 2.5 2 puff inhalation DAILY 06/05/22 06/05/22 mcg/actuation mist for inhalation (Spiriva Respimat) Previous Rx's Medication Instructions Recorded acetylcysteine 200 mg/mL (20 %) 5 ml inhalation Q12R #90 mL 06/09/22 solution amoxicillin 875 mg-potassium 1 tab PO BIDM 6 days #12 tabs 06/09/22 clavulanate 125 mg tablet fluticasone propionate 50 2 spray JONN HS #16 grams 06/09/22 mcg/actuation nasal spray,suspension formoterol fumarate 20 mcg/2 mL 2 ml inhalation BID #120 mL 06/09/22 solution for nebulization (Perforomist) sodium chloride 7 % for 1 inh inhalation BID #120 mL 06/09/22 nebulization Results & Data (ED) Vital Signs Vital Signs - 24 hr 06/13/22 01:54 06/13/22 02:15 06/13/22 02:39 Temperature 38.2 C H Temperature Source Temporal Artery Scan Pulse Rate 99 H Pulse Rate from SpO2 Sensor Pulse Rhythm Regular Pulse Strength Normal Respiratory Rate 22 Respiratory Effort / Characteristics Non-Labored Spontaneous Short of Breath SOB on Exertion Respiratory Depth Normal Respiratory Pattern Regular Blood Pressure 190/115 H Blood Pressure Mean 140 Blood Pressure Position Sitting Pulse Oximetry 96 Oxygen Delivery Method Room Air Room Air Oxygen Flow Rate 92 Sepsis Recent Fever Within 48 Hours Yes Sepsis New/Unexplained Change in Mental Status No Sepsis Action Taken by Nursing Physician Notified 06/13/22 03:02 06/13/22 02:34 06/13/22 02:55 Temperature Temperature Source Pulse Rate 94 H 90 93 H Pulse Rate from SpO2 Sensor 90 Pulse Rhythm Pulse Strength Respiratory Rate 24 21 21 Respiratory Effort / Characteristics Respiratory Depth Respiratory Pattern Blood Pressure Blood Pressure Mean Blood Pressure Position Pulse Oximetry 93 96 Oxygen Delivery Method Room Air Oxygen Flow Rate Sepsis Recent Fever Within 48 Hours Sepsis New/Unexplained Change in Mental Status Sepsis Action Taken by Nursing 06/13/22 03:00 06/13/22 03:08 06/13/22 03:09 Temperature Temperature Source Pulse Rate 95 H Pulse Rate from SpO2 Sensor 97 H Pulse Rhythm Pulse Strength Respiratory Rate 24 Respiratory Effort / Characteristics Respiratory Depth Respiratory Pattern Blood Pressure 206/116 H Blood Pressure Mean 146 Blood Pressure Position Pulse Oximetry 93 86 L 96 Oxygen Delivery Method Room Air Nasal Cannula Oxygen Flow Rate 2 Sepsis Recent Fever Within 48 Hours Sepsis New/Unexplained Change in Mental Status Sepsis Action Taken by Nursing 06/13/22 03:00 06/13/22 03:11 06/13/22 03:11 Temperature Temperature Source Pulse Rate Pulse Rate from SpO2 Sensor 97 H Pulse Rhythm Pulse Strength Respiratory Rate 30 H Respiratory Effort / Characteristics Respiratory Depth Respiratory Pattern Blood Pressure 206/116 H 192/128 H Blood Pressure Mean 146 149 Blood Pressure Position Pulse Oximetry 94 Oxygen Delivery Method Oxygen Flow Rate Sepsis Recent Fever Within 48 Hours Sepsis New/Unexplained Change in Mental Status Sepsis Action Taken by Nursing 06/13/22 03:15 06/13/22 03:30 06/13/22 03:45 Temperature Temperature Source Pulse Rate 96 H 102 H 100 H Pulse Rate from SpO2 Sensor 96 H 101 H 100 H Pulse Rhythm Pulse Strength Respiratory Rate 23 28 H 21 Respiratory Effort / Characteristics Respiratory Depth Respiratory Pattern Blood Pressure 219/119 H 220/122 H 199/108 H Blood Pressure Mean 152 154 138 Blood Pressure Position Pulse Oximetry 99 98 98 Oxygen Delivery Method Oxygen Flow Rate Sepsis Recent Fever Within 48 Hours Sepsis New/Unexplained Change in Mental Status Sepsis Action Taken by Nursing 06/13/22 04:00 06/13/22 04:15 06/13/22 04:30 Temperature Temperature Source Pulse Rate 95 H 93 H Pulse Rate from SpO2 Sensor 106 H 95 H 93 H Pulse Rhythm Pulse Strength Respiratory Rate 20 23 Respiratory Effort / Characteristics Respiratory Depth Respiratory Pattern Blood Pressure 169/89 H 121/71 138/70 Blood Pressure Mean 115 87 92 Blood Pressure Position Pulse Oximetry 96 95 96 Oxygen Delivery Method Oxygen Flow Rate Sepsis Recent Fever Within 48 Hours Sepsis New/Unexplained Change in Mental Status Sepsis Action Taken by Nursing Laboratory Data Result diagrams: 06/13/22 02:50 06/13/22 02:50 Lab Results 06/13/22 06/13/22 06/13/22 Range/Units 02:30 02:50 02:50 WBC 8.38 (4.8-10.8) K/ul RBC 4.31 L (4.63-6.08) M/uL Hgb 14.2 (14.0-18.0) g/dl Hct 42.5 (40.1-51.0) % MCV 98.6 (80.0-100.0) fL MCH 32.9 (25.0-34.0) pg MCHC 33.4 (32.0-36.0) g/dL RDW Std Deviation 49.4 H (36.4-46.3) fL RDW Coeff of Judy 13.4 (11.5-14.5) % Plt Count 217 (130-400) K/uL MPV 10.9 (9.4-12.4) fL Immature Gran % (Auto) 0.8 % Neut % (Auto) 82.9 % Lymph % (Auto) 6.2 % [place] % (Auto) 7.0 % Eos % (Auto) 2.7 % Baso % (Auto) 0.4 % Neut # (Auto) 6.94 H (1.4-6.5) K/uL Lymph # (Auto) 0.52 L (1.2-3.4) K/uL [place] # (Auto) 0.59 (0.24-0.82) K/uL Eos # (Auto) 0.23 (0-0.50) K/uL Baso # (Auto) 0.03 (0-0.2) K/uL Immature Gran # (Auto) 0.07 H (0.00-0.02) K/uL Sodium 137 (136-145) mmol/L Potassium 3.5 (3.5-5.1) mmol/L Chloride 100 (98-107) mmol/L Carbon Dioxide 31 (21-32) mmol/L Anion Gap 6 (3-11) BUN 12 (6-23) mg/dl Creatinine 0.91 (0.6-1.4) mg/dl Est Cr Clr Drug Dosing 75.9 ml/min Est GFR ( Amer) 95.9 ml/min Est GFR (Non-Af Amer) 82.7 ml/min BUN/Creatinine Ratio 13.2 (10-20) Glucose 84 (70-99(Fasting)) mg/dl Lactate (0.4-2.0) mmol/L Calcium 9.4 (8.5-10.1) mg/dl Magnesium 2.2 (1.7-2.4) mg/dl Total Bilirubin 0.6 (0.2-1.0) mg/dl Direct Bilirubin 0.1 (0-0.2) mg/dl AST 27 (13-39) U/L ALT 29 (7-52) U/L Alkaline Phosphatase 82 (34-104) U/L Troponin I High Sens 8.3 D (0-20) pg/ml Total Protein 8.3 (6.0-8.3) gm/dl Albumin 4.3 (3.4-5.0) gm/dl Procalcitonin (0-0.5) ng/ml Nasal Influ A H1 2008 PCR Adenovirus (PCR) B. pertussis DNA (PCR) B.parapertussis DNA PCR C. pneumoniae DNA (PCR) Coronavirus OC43 (PCR) Coronavirus HKU1 (PCR) Coronavirus 229E (PCR) SARS-CoV-2 (PCR) POSITIVE A* (Negative) Coronavirus NL63 (PCR) Human Metapneumovir PCR Influenza A (H1) PCR Influenza A (H3) PCR Influenza Type A (PCR) Positive A* (Neg) Influenza A Untype (PCR) Influenza Type B (PCR) Negative (Neg) M. pneumoniae (PCR) Parainfluenza 1 (PCR) Parainfluenza 2 (PCR) Parainfluenza 3 (PCR) Parainfluenza 4 (PCR) RSV (RT-PCR) Negative (Neg) RSV (PCR) Entero/Rhino (PCR) 06/13/22 06/13/22 06/13/22 Range/Units 02:50 02:50 02:50 WBC (4.8-10.8) K/ul RBC (4.63-6.08) M/uL Hgb (14.0-18.0) g/dl Hct (40.1-51.0) % MCV (80.0-100.0) fL MCH (25.0-34.0) pg MCHC (32.0-36.0) g/dL RDW Std Deviation (36.4-46.3) fL RDW Coeff of Judy (11.5-14.5) % Plt Count (130-400) K/uL MPV (9.4-12.4) fL Immature Gran % (Auto) % Neut % (Auto) % Lymph % (Auto) % [place] % (Auto) % Eos % (Auto) % Baso % (Auto) % Neut # (Auto) (1.4-6.5) K/uL Lymph # (Auto) (1.2-3.4) K/uL [place] # (Auto) (0.24-0.82) K/uL Eos # (Auto) (0-0.50) K/uL Baso # (Auto) (0-0.2) K/uL Immature Gran # (Auto) (0.00-0.02) K/uL Sodium (136-145) mmol/L Potassium (3.5-5.1) mmol/L Chloride (98-107) mmol/L Carbon Dioxide (21-32) mmol/L Anion Gap (3-11) BUN (6-23) mg/dl Creatinine (0.6-1.4) mg/dl Est Cr Clr Drug Dosing ml/min Est GFR ( Amer) ml/min Est GFR (Non-Af Amer) ml/min BUN/Creatinine Ratio (10-20) Glucose (70-99(Fasting)) mg/dl Lactate 1.6 (0.4-2.0) mmol/L Calcium (8.5-10.1) mg/dl Magnesium (1.7-2.4) mg/dl Total Bilirubin (0.2-1.0) mg/dl Direct Bilirubin (0-0.2) mg/dl AST (13-39) U/L ALT (7-52) U/L Alkaline Phosphatase (34-104) U/L Troponin I High Sens (0-20) pg/ml Total Protein (6.0-8.3) gm/dl Albumin (3.4-5.0) gm/dl Procalcitonin 0.05 (0-0.5) ng/ml Nasal Influ A H1 2008 PCR Cancelled Adenovirus (PCR) Cancelled B. pertussis DNA (PCR) Cancelled B.parapertussis DNA PCR Cancelled C. pneumoniae DNA (PCR) Cancelled Coronavirus OC43 (PCR) Cancelled Coronavirus HKU1 (PCR) Cancelled Coronavirus 229E (PCR) Cancelled SARS-CoV-2 (PCR) Cancelled (Negative) Coronavirus NL63 (PCR) Cancelled Human Metapneumovir PCR Cancelled Influenza A (H1) PCR Cancelled Influenza A (H3) PCR Cancelled Influenza Type A (PCR) Cancelled (Neg) Influenza A Untype (PCR) Cancelled Influenza Type B (PCR) Cancelled (Neg) M. pneumoniae (PCR) Cancelled Parainfluenza 1 (PCR) Cancelled Parainfluenza 2 (PCR) Cancelled Parainfluenza 3 (PCR) Cancelled Parainfluenza 4 (PCR) Cancelled RSV (RT-PCR) (Neg) RSV (PCR) Cancelled Entero/Rhino (PCR) Cancelled Administered Medications Dextrose/Sodium Chloride (D5w And 1/2nss) 1,000 mls @ 75 mls/hr IV .[id number] GIRISH Stop: 06/13/22 18:40 Last Admin: 06/13/22 05:41 Dose: 75 mls/hr Documented By: Discontinued Medications Acetaminophen (Acetaminophen Susp 1000 Mg/31.2 Ml Udp) 1,000 mg PO NOW STA Stop: 06/13/22 03:01 Last Admin: 06/13/22 03:40 Dose: 1,000 mg Documented By: KRYSTAL Albuterol (Albut/Ipratrop 3mg/0.5mg Neb 3 Ml Vial) 3 ml NEB NOW STA; Protocol Stop: 06/13/22 03:18 Last Admin: 06/13/22 03:40 Dose: 3 ml Documented By: KRYSTAL Dexamethasone (Dexamethasone Sod Inj 4 Mg/Ml Vial) 10 mg IV NOW STA Stop: 06/13/22 02:38 Last Admin: 06/13/22 03:11 Dose: 10 mg Documented By: KRYSTAL Labetalol HCl (Labetalol Hcl Iv 5 Mg/Ml 20ml) 10 mg IV NOW STA Stop: 06/13/22 04:26 Last Admin: 06/13/22 05:00 Dose: Not Given Documented By: KRYSTAL Discharge Plan Visit Data Chief Complaint: Shortness of Breath/Dyspnea Stated Complaint: SOB, CHILLS, IN A WEEK ED Provider: Gabriella Weaver Discharge Problem: Hypoxia, Influenza A, COVID-19 Patient Disposition: Admitted As Inpatient Discharge Instructions Interventions: ED Discharge Assessment Last Done: 06/13/22 04:58
[2022-06-13 03:27] LABS: Influenza A virus by PCR Positive (Neg); SARS CoV2 RNA(COVID-19) Ceph POSITIVE (Negative)
[2022-06-13 03:29] LABS: Albumin Level 4.3 gm/dl (3.4-5.0); BUN Creatinine Ratio 13.2 (10-20); Bilirubin Direct 0.1 mg/dl (0-0.2); Bilirubin,Total 0.6 mg/dl (0.2-1.0); Calcium 9.4 mg/dl (8.5-10.1); Creatinine Clr Calc Pharmacy 75.9 ml/min; Est GFR (African American) 95.9 ml/min; Est GFR (Non-African American) 82.7 ml/min; Magnesium 2.2 mg/dl (1.7-2.4); Potassium 3.5 mmol/L (3.5-5.1); Total Protein 8.3 gm/dl (6.0-8.3)
[2022-06-13 03:32] LABS: Troponin I High Sensitivity 8.3 pg/ml (0-20)
[2022-06-13] MEDS ORDERED: LABETALOL HCL IV 5 MG/ML 20ML IV STA (04:25)
[2022-06-13] MEDS ORDERED: ONDANSETRON INJ 2 MG/ML 2 ML VIAL IV PRN (05:21)
[2022-06-13] MEDS ORDERED: LEVALBUTEROL HCL 1.25 MG/3 ML NEB NEB PRN (05:21)
[2022-06-13] MEDS ORDERED: D5W AND 1/2NSS 1,000 ML IV SCH (05:21)
[2022-06-13] MEDS ORDERED: ALBUTEROL HFA 8 GM INHALER INH PRN (05:21)
[2022-06-13] MEDS ORDERED: REMDESIVIR 200 MG in SODIUM CHLORIDE 0.9% 210 ML IV STA (05:30)
[2022-06-13] MEDS ORDERED: OSELTAMIVIR PHOSPHATE 75 MG CAP PO SCH (06:00)
--- NOTE | 2022-06-13 06:07 | XRay Report ---
SINGLE VIEW CHEST CLINICAL HISTORY: Sepsis. FINDINGS: An AP, portable, upright chest radiograph is compared to study dated 06/06/2022 and correla laney with chest CT dated 06/05/2022. The examination is degraded by portable technique and patient rot ation. The cardiomediastinal silhouette is top normal for projection noting atherosclerotic calcific ation of the thoracic aorta. Chronic residual thickening similar to previous. There is moderate airsp ana consolidation at the right lung base. No large pleural effusion or pneumothorax is seen. The skel etal structures are osteopenic. The bony thorax is grossly intact. IMPRESSION: Airspace consolidation at the right lung base is typical for pneumonia/aspiration pneumon itis. Clinical correlation will be required and radiographic follow-up to resolution is recommended. ACT 112: Negative or not required by law. Electronically signed by: Landen Hopkins M.D. 06/13/2022 6:05 AM
[2022-06-13] MEDS ORDERED: Nursing to Pharmacy 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 SCH (06:15)
[2022-06-13] MEDS: HYDROmorphone INJ 0.5 MG/0.5 ML SYR IV PRN (06:46)
[2022-06-13] MEDS ORDERED: ACETYLCYSTEINE 20% INHAL SOLN 30ML INH SCH (07:00)
[2022-06-13] MEDS: FORMOTEROL 20 MCG/2 ML VIAL INH SCH ×2 (07:15→20:52)
--- NOTE | 2022-06-13 07:15 | Electrocardiogram Report ---
Test Reason : Blood Pressure : / mmHG Vent. Rate : 094 BPM Atrial Rate : 094 BPM P-R Int : 134 ms QRS Dur : 084 ms QT Int : 354 ms P-R-T Axes : 040 -47 043 degrees QTc Int : 442 ms Normal sinus rhythm Left anterior fascicular block Abnormal ECG When compared with ECG of 05-JUN-2022 19:49, No significant change was found Confirmed by Yung Love ([id number]) on 06/13/2022 7:14:47 AM Referred By: REFERRED SELF Confirmed By:Ryan Love
[2022-06-13] MEDS: SODIUM CHLOR 7% 4 ML NEB INH SCH ×2 (07:16→20:53)
[2022-06-13] MEDS: ALBUT/IPRATROP 3MG/0.5MG NEB 3 ML VIAL NEB SCH ×2 (07:19→20:53)
--- NOTE | 2022-06-13 07:48 | History and Physical Report ---
DATE OF ADMISSION: 06/13/2022. CHIEF COMPLAINT: Cough, COVID and flu positive. HISTORY OF PRESENT ILLNESS: This is a 76-year-old male with past medical history significant for head and neck cancer, status post radical dissection of the neck, status post radiation treatment and PEG tube placement, history of hypertension, history of COPD, depression, was recently in the hospital for sepsis and aspiration pneumonia, treated with antibiotics. He was treated with Unasyn and completed azithromycin for 5 days and discharged on Augmentin to complete 10 days. He was discharged on 06/09/2022 and today he comes back because his cough has been getting worse. He lives with his . The was worried about that he is getting again pneumonia. Here in the ER, he was saturating 86%. On 2 liters, he is saturating okay. Temperature spike was 38.2 and his COVID PCR and influenza A PCR came back positive. The patient is somewhat hard of hearing and also because of his neck surgery, he is somewhat hard to understand. was helping with H and P. The patient had 2-3 episodes of diarrhea yesterday, but no blood in the stools or black stools and also vomited a couple of times, complaining of back pain and some abdominal discomfort. Denies any chest pain, denies any shortness of breath. He is tolerating tube feeds as per . The patient denies any headache. Vision is okay. No runny nose, no sore throat. Normal bladder movements. No swelling in the legs. Ambulating without any support. ALLERGIES: LEVAQUIN, BACTRIM, SERTRALINE, TERAZOSIN, NITRATE ANALOGUES. PAST MEDICAL HISTORY: As mentioned above. PAST SURGICAL HISTORY: Colonoscopy, dental surgery, EGDs, EGD with biopsy, knee arthroscopy, cervical lymphadenectomy, modified radical neck dissection, PEG tube placement. MEDICATIONS: The patient is on Tylenol Extra Strength 1000 mg p.o. q.6 hours p.r.n., acetylcysteine 5 mL inhalation q.12 hours, albuterol 2 puffs inhalation q.i.d. p.r.n., Augmentin 1 tablet p.o. b.i.d. couple more days left, atorvastatin 40 mg p.o. at bedtime, brimonidine 1 drop ophthalmic b.i.d., citalopram 20 mg via PEG tube, fludrocortisone 0.1 mg via PEG tube, Flonase 2 sprays intranasally at bedtime, Perforomist 2 mL inhalation b.i.d., latanoprost 1 drop ophthalmic at bedtime, levothyroxine 88 mcg via feeding tube, midodrine 10 mg via feeding tube t.i.d. p.r.n. for hypertension, nutritional drink 2 cans via feeding tube q.i.d., sodium chloride 1 inhalation b.i.d., Spiriva Respimat 2 puffs inhalation daily. FAMILY HISTORY: Significant for mother had cancer; brother has diabetes; sister has heart disorder; sister has diabetes; father had lung disorder. SOCIAL HISTORY: . Quit smoking in 1978, smoked 1/2 pack a day for 5 years. Alcohol, 1 drink a day. No drug use. REVIEW OF SYSTEMS: As per HPI. Rest of the review of systems is negative. PHYSICAL EXAMINATION: GENERAL: The patient is of moderate built, currently not in acute distress. VITAL SIGNS: Temperature T-max 38.2, pulse 93, respiratory rate 23, blood pressure 138/70, oxygen currently 96% on 2 liters. HEENT: Pupils equal, round and reactive to light. Oral mucosa dry. NECK: No JVD or neck masses. CARDIOVASCULAR: S1 and S2 heard. Regular rate and rhythm. No murmur, no gallop. RESPIRATORY SYSTEM: Normal AP diameter. No accessory muscle use. No wheezing, no crackles. ABDOMEN: Soft, bowel sounds present, nontender, no distention. CENTRAL NERVOUS SYSTEM: Alert and awake. Obeys simple commands. Moves extremities. EXTREMITIES: No edema, no erythema. LABORATORY DATA: WBC 8.3, hemoglobin 14.2, hematocrit 42.5, platelets 217. Sodium 137, potassium 3.5, chloride 100, bicarbonate 31, BUN 12, creatinine 0.9, serum glucose 84, lactate 1.6, calcium 9.4, magnesium 2.2, total bilirubin 0.6, direct bilirubin 0.1, AST 27, ALT 29, alkaline phosphatase 82. Troponin I high sensitivity 8.3. Procalcitonin 0.05. SARS-CoV-2 PCR positive. Influenza A PCR positive. RSV negative. Influenza B negative. IMAGING: Chest x-ray: Possible right lower lobe mild infiltrates. ELECTROCARDIOGRAM: Normal sinus rhythm at a rate of 94, left anterior fascicular block, no significant change was found. ASSESSMENT AND PLAN: This is a 76-year-old male with history of neck cancer, status post radical neck dissection of the right neck, status post radiation treatment and PEG tube placement, who was recently in the hospital for sepsis and aspiration pneumonitis, discharged on Augmentin to complete the course. Comes back with worsening cough and found to have flu and COVID positive and also requiring oxygen. 1. Shortness of breath, hypoxia requiring oxygen. COVID and flu positive. Starting on remdesivir and IV Decadron and Tamiflu. 2. History of chronic obstructive pulmonary disease. Continue his home inhalers. We will place on Xopenex p.r.n. Closely monitor in the med- telemetry. 3. 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 PEG tube noted. Getting tube feeds via PEG tube. Consult dietitian. 4. History of hypothyroidism, on Synthroid. 5. History of hyperlipidemia, on statin. 6. History of depression, on citalopram. 7. Protein-calorie malnutrition. Dietitian consulted on tube feeds. 8. History of constipation. We will monitor bowel regimen. 9. Deep venous thrombosis prophylaxis, Lovenox. DISPOSITION: Admit to Med/Surg tele. PT/OT prior to discharge. Social service to help with discharge planning. Level 1, full code. Job ID: [id number]
[2022-06-13] MEDS ORDERED: PEPTAMEN 1.5 CAL 1,000 ML BAG PEG SCH (08:00)
[2022-06-13] MEDS ORDERED: FOOD SUPPLEMT LACTOSE REDUCED Feeding Tube SCH (09:00)
[2022-06-13] MEDS: OSELTAMIVIR PHOSPHATE SUSP 75 MG/12.5 ML UDP PO SCH ×2 (09:00→22:13)
[2022-06-13] MEDS: LEVOTHYROXINE SODIUM 88 MCG TABLET PEG SCH (09:00)
[2022-06-13] MEDS: AMOXICILLIN/CLAVULANATE 875 MG TAB PO SCH ×2 (09:01→18:23)
[2022-06-13] MEDS: BRIMONIDINE TARTRATE 0.2% 5ML OPB SCH ×2 (09:01→21:35)
[2022-06-13] MEDS: CITALOPRAM 20 MG TAB PEG SCH (09:02)
[2022-06-13] MEDS: dexAMETHasone 6 MG in SYRINGE 0 ML IV SCH (09:02)
[2022-06-13] MEDS: UMECLIDINIUM BROMIDE 62.5MCG/BLISTER 7 PUFFS/INHALER INH SCH (09:02)
[2022-06-13] MEDS: MIDODRINE HCL 10 MG TAB PO PRN ×2 (09:03→23:18)
[2022-06-13] MEDS: FLUDROCORTISONE ACETATE 0.1 MG TAB PO SCH (09:04)
[2022-06-13] MEDS: ENOXAPARIN INJ 40 MG/0.4 ML SYR SQ SCH (09:05)
[2022-06-13] MEDS ORDERED: TUBE FEEDING WATER FLUSH PEG SCH (10:00)
[2022-06-13] MEDS: PEPTAMEN 1.5 CAL 1,000 ML BAG PEG SCH ×3 (11:22→18:24)
[2022-06-13] MEDS: TUBE FEEDING WATER FLUSH PEG SCH ×4 (11:23→21:35)
--- NOTE | 2022-06-13 11:32 | Hospitalist Progress Note ---
Date of Service June 13, 2022 Assessment & Plan (1) COVID-19: (2) Influenza A: (3) Acute respiratory failure with hypoxia: (4) Aspiration pneumonia: Plan: History of neck cancer status post radical neck dissection and radiation with PEG tube placement Recent admission with aspiration pneumonia; on Augmentin since 06/05 Came with worsening cough Hypoxic on presentation; COVID-19 and influenza positive Chest x-ray shows airspace consolidation at right lung base Pro-Palmer less than 0.05 Plan; For influenza, Tamiflu 75 mg twice daily for 5 days For COVID-19 infection; started on dexamethasone and remdesivir. Chest x-ray does not show typical COVID-19 pneumonia. Will continue to monitor for signs of respiratory distress. Continue on Augmentin; will finish course on 06/14. Continue aspiration precautions. Airway clearance therapy with Mucomyst, hypertonic saline and duo nebs. Unable to obtain CoughAssist machine at home due to insurance issues. Plan Chronic conditions: History of chronic obstructive pulmonary disease. Continue his home inhalers and duo nebs. 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 PEG tube noted. Getting tube feeds via PEG tube. Consult dietitian. History of hypothyroidism, on Synthroid. History of hyperlipidemia, on statin. History of depression, on citalopram. Protein-calorie malnutrition. Dietitian consulted on tube feeds. History of constipation. We will monitor bowel regimen. Deep venous thrombosis prophylaxis, Lovenox. Admission and Anticipated Discharge Date Admission Date: June 13, 2022 Subjective Patient seen and examined at bedside. He is lying down on the bed comfortably; not in any distress. His is at bedside. Review of Systems Review of Systems: All systems reviewed & are unremarkable except as noted in Subjective Physical Exam Physical Exam: Constitutional: Awake, alert orient x3, not in distress. Respiratory: Crackles heard on right lower base. Cardiovascular: RRR, no murmur, no edema Vessels: no JVD or carotid bruit Chest: normal inspection of chest Abdomen: normal bowel sounds, soft, nontender, no hepatosplenomegaly Musculoskeletal: PEG tube present; no signs of infection. Skin: no rashes, warm and dry normal turgor Neurologic: PERRL, EOMI, accommodation nl, no face palsy, no dysarthria CN's II- XI intact bilaterally and moves all extremities Psychiatric: A+Ox3, euthymic affect Lymphatic: no cervical or axillary lymphadenopathy : deferred Results & Data Results & Data ([facility]) Vital Signs (Past 12 Hours) Vital Signs Temp Pulse Pulse Resp BP BP Pulse Ox 06/13/22 08:16 36.6 C 72 19 110/61 95 06/13/22 07:19 78 18 96 06/13/22 05:56 37.4 C 81 18 148/74 H 94 06/13/22 05:54 37.4 C 81 18 148/74 H 94 06/13/22 05:53 06/13/22 05:18 37.4 C 81 18 148/74 H 94 06/13/22 04:30 93 H 23 138/70 96 06/13/22 04:15 95 H 20 121/71 95 06/13/22 04:00 169/89 H 96 06/13/22 03:45 100 H 21 199/108 H 98 06/13/22 03:30 102 H 28 H 220/122 H 98 06/13/22 03:15 96 H 23 219/119 H 99 06/13/22 03:11 192/128 H 06/13/22 03:11 30 H 94 06/13/22 03:00 206/116 H 06/13/22 03:09 96 06/13/22 03:08 86 L 06/13/22 03:00 95 H 24 206/116 H 93 06/13/22 02:55 93 H 21 06/13/22 02:34 90 21 96 06/13/22 03:02 94 H 24 93 06/13/22 02:39 06/13/22 01:54 38.2 C H 99 H 22 190/115 H 96 Pulse Ox O2 Del Method O2 Del Method O2 Flow Rate O2 Flow Rate 06/13/22 08:16 Room Air 06/13/22 07:19 Nasal Cannula 2 06/13/22 05:56 Nasal Cannula 2 06/13/22 05:54 Nasal Cannula 2 06/13/22 05:53 94 Nasal Cannula 2 06/13/22 05:18 Nasal Cannula 2 06/13/22 04:30 06/13/22 04:15 06/13/22 04:00 06/13/22 03:45 06/13/22 03:30 06/13/22 03:15 06/13/22 03:11 06/13/22 03:11 06/13/22 03:00 06/13/22 03:09 Nasal Cannula 2 06/13/22 03:08 Room Air 06/13/22 03:00 06/13/22 02:55 06/13/22 02:34 06/13/22 03:02 Room Air 06/13/22 02:39 Room Air 92 06/13/22 01:54 Room Air Laboratory Results Laboratory Results WBC 8.38 K/ul (4.8-10.8) 06/13/22 02:50 RBC 4.31 M/uL (4.63-6.08) L 06/13/22 02:50 Hgb 14.2 g/dl (14.0-18.0) 06/13/22 02:50 Hct 42.5 % (40.1-51.0) 06/13/22 02:50 MCV 98.6 fL (80.0-100.0) 06/13/22 02:50 MCH 32.9 pg (25.0-34.0) 06/13/22 02:50 MCHC 33.4 g/dL (32.0-36.0) 06/13/22 02:50 RDW Std Deviation 49.4 fL (36.4-46.3) H 06/13/22 02:50 RDW Coeff of Judy 13.4 % (11.5-14.5) 06/13/22 02:50 Plt Count 217 K/uL (130-400) 06/13/22 02:50 MPV 10.9 fL (9.4-12.4) 06/13/22 02:50 Immature Gran % (Auto) 0.8 % 06/13/22 02:50 Neut % (Auto) 82.9 % 06/13/22 02:50 Lymph % (Auto) 6.2 % 06/13/22 02:50 [place] % (Auto) 7.0 % 06/13/22 02:50 Eos % (Auto) 2.7 % 06/13/22 02:50 Baso % (Auto) 0.4 % 06/13/22 02:50 Neut # (Auto) 6.94 K/uL (1.4-6.5) H 06/13/22 02:50 Lymph # (Auto) 0.52 K/uL (1.2-3.4) L 06/13/22 02:50 [place] # (Auto) 0.59 K/uL (0.24-0.82) 06/13/22 02:50 Eos # (Auto) 0.23 K/uL (0-0.50) 06/13/22 02:50 Baso # (Auto) 0.03 K/uL (0-0.2) 06/13/22 02:50 Immature Gran # (Auto) 0.07 K/uL (0.00-0.02) H 06/13/22 02:50 Sodium 137 mmol/L (136-145) 06/13/22 02:50 Potassium 3.5 mmol/L (3.5-5.1) 06/13/22 02:50 Chloride 100 mmol/L (98-107) 06/13/22 02:50 Carbon Dioxide 31 mmol/L (21-32) 06/13/22 02:50 Anion Gap 6 (3-11) 06/13/22 02:50 BUN 12 mg/dl (6-23) 06/13/22 02:50 Creatinine 0.91 mg/dl (0.6-1.4) 06/13/22 02:50 Est Cr Clr Drug Dosing 75.9 ml/min 06/13/22 02:50 Est GFR ( Amer) 95.9 ml/min 06/13/22 02:50 Est GFR (Non-Af Amer) 82.7 ml/min 06/13/22 02:50 BUN/Creatinine Ratio 13.2 (10-20) 06/13/22 02:50 Glucose 84 mg/dl (70-99(Fasting)) 06/13/22 02:50 Lactate 1.6 mmol/L (0.4-2.0) 06/13/22 02:50 Calcium 9.4 mg/dl (8.5-10.1) 06/13/22 02:50 Magnesium 2.2 mg/dl (1.7-2.4) 06/13/22 02:50 Total Bilirubin 0.6 mg/dl (0.2-1.0) 06/13/22 02:50 Direct Bilirubin 0.1 mg/dl (0-0.2) 06/13/22 02:50 AST 27 U/L (13-39) 06/13/22 02:50 ALT 29 U/L (7-52) 06/13/22 02:50 Alkaline Phosphatase 82 U/L (34-104) 06/13/22 02:50 Troponin I High Sens 8.3 pg/ml (0-20) D 06/13/22 02:50 Total Protein 8.3 gm/dl (6.0-8.3) 06/13/22 02:50 Albumin 4.3 gm/dl (3.4-5.0) 06/13/22 02:50 Procalcitonin 0.05 ng/ml (0-0.5) 06/13/22 02:50 Nasal Influ A H1 2009 PCR Cancelled 06/13/22 02:50 Adenovirus (PCR) Cancelled 06/13/22 02:50 B. pertussis DNA (PCR) Cancelled 06/13/22 02:50 B.parapertussis DNA PCR Cancelled 06/13/22 02:50 C. pneumoniae DNA (PCR) Cancelled 06/13/22 02:50 Coronavirus OC43 (PCR) Cancelled 06/13/22 02:50 Coronavirus HKU1 (PCR) Cancelled 06/13/22 02:50 Coronavirus 229E (PCR) Cancelled 06/13/22 02:50 SARS-CoV-2 (PCR) Cancelled 06/13/22 02:50 Coronavirus NL63 (PCR) Cancelled 06/13/22 02:50 Human Metapneumovir PCR Cancelled 06/13/22 02:50 Influenza A (H1) PCR Cancelled 06/13/22 02:50 Influenza A (H3) PCR Cancelled 06/13/22 02:50 Influenza Type A (PCR) Cancelled 06/13/22 02:50 Influenza A Untype (PCR) Cancelled 06/13/22 02:50 Influenza Type B (PCR) Cancelled 06/13/22 02:50 M. pneumoniae (PCR) Cancelled 06/13/22 02:50 Parainfluenza 1 (PCR) Cancelled 06/13/22 02:50 Parainfluenza 2 (PCR) Cancelled 06/13/22 02:50 Parainfluenza 3 (PCR) Cancelled 06/13/22 02:50 Parainfluenza 4 (PCR) Cancelled 06/13/22 02:50 RSV (RT-PCR) Negative (Neg) 06/13/22 02:30 RSV (PCR) Cancelled 06/13/22 02:50 Entero/Rhino (PCR) Cancelled 06/13/22 02:50 Impressions Chest X-Ray 06/13/22 02:20 SINGLE VIEW CHEST CLINICAL HISTORY: Sepsis. FINDINGS: An AP, portable, upright chest radiograph is compared to study dated 06/06/2022 and correlated with chest CT dated 06/05/2022. The examination is degraded by portable technique and patient rotation. The cardiomediastinal silhouette is top normal for projection noting atherosclerotic calcification of the thoracic aorta. Chronic residual thickening similar to previous. There is moderate airspace consolidation at the right lung base. No large pleural effusion or pneumothorax is seen. The skeletal structures are osteopenic. The bony thorax is grossly intact. IMPRESSION: Airspace consolidation at the right lung base is typical for pneumonia/aspiration pneumonitis. Clinical correlation will be required and radiographic follow-up to resolution is recommended. ACT 112: Negative or not required by law. Electronically signed by: Landen Hopkins M.D. 06/13/2022 6:05 AM
[2022-06-13 20:03] LABS: Appearance Urine Clear (Clear); Bacteria Urine Automated Negative (Negative); Bilirubin Urine Negative (Negative); Blood Urine Negative (Negative); Color Urine Dark Yellow; Glucose Urine UA Negative (Negative); Ketones Urine Trace (Negative); Leukocyte Esterase Urine Negative (Negative); Nitrite Urine Negative (Negative); Protein Urine 1+ (Negative); RBC Urine Automated 0-4 /hpf (0-4); Specific Gravity Urine 1.028 (1.000-1.030); Urobilinogen Urine Negative (Negative)
[2022-06-13] MEDS: ACETYLCYSTEINE 20% INHAL SOLN 4ML ***DISPENSED BY RESP. INH SCH (20:53)
[2022-06-13] MEDS: ACETAMINOPHEN 325 MG TAB PEG PRN (21:33)
[2022-06-13] MEDS: ATORVASTATIN 40 MG TAB PEG SCH (21:34)
[2022-06-13] MEDS: FLUTICASONE PROPIONATE NA SPR 16 GM BTL NAE SCH (21:35)
[2022-06-13] MEDS: LATANOPROST 0.005% OP SOLN 2.5 ML BTL OPB SCH (22:12)
[2022-06-13] MEDS ORDERED: SODIUM CHLORIDE 0.9% 500 ML IV SCH (23:15)
[2022-06-14] MEDS: PEPTAMEN 1.5 CAL 1,000 ML BAG PEG SCH ×4 (01:55→21:08)
[2022-06-14] MEDS: TUBE FEEDING WATER FLUSH PEG SCH ×6 (01:55→21:08)
[2022-06-14] MEDS: LEVOTHYROXINE SODIUM 88 MCG TABLET PEG SCH (05:40)
[2022-06-14 06:45] LABS: Basophils # (auto) 0.03 K/uL (0-0.2); Basophils % (auto) 0.3 %; Hematocrit (blood only) 35.5 % (40.1-51.0); Hemoglobin 11.8 g/dl (14.0-18.0); Immature Granulocytes # (auto) 0.06 K/uL (0.00-0.02); Immature Granulocytes % (auto) 0.6 %; Lymphocytes # (auto) 0.63 K/uL (1.2-3.4); Lymphocytes % (auto) 6.6 %; Mean Corpuscular Hemoglobin 32.6 pg (25.0-34.0); Mean Corpuscular Hgb Conc 33.2 g/dL (32.0-36.0); Mean Corpuscular Volume 98.1 fL (80.0-100.0); Monocytes # (auto) 1.15 K/uL (0.24-0.82); Neutrophils # (auto) 7.73 K/uL (1.4-6.5); Neutrophils % (auto) 80.5 %; Platelet Count 184 K/uL (130-400); RDW Coefficient of Variation 13.8 % (11.5-14.5); RDW Standard Deviation 49.8 fL (36.4-46.3); Red Blood Count 3.62 M/uL (4.63-6.08)
[2022-06-14 07:08] LABS: Albumin Level 3.5 gm/dl (3.4-5.0); BUN Creatinine Ratio 21.5 (10-20); Bilirubin Direct 0.1 mg/dl (0-0.2); Bilirubin,Total 0.3 mg/dl (0.2-1.0); Creatinine Clr Calc Pharmacy 74.2 ml/min; Est GFR (African American) 93.4 ml/min; Est GFR (Non-African American) 80.6 ml/min; Magnesium 2.4 mg/dl (1.7-2.4); Potassium 3.6 mmol/L (3.5-5.1); Total Protein 6.6 gm/dl (6.0-8.3)
[2022-06-14] MEDS: FORMOTEROL 20 MCG/2 ML VIAL INH SCH ×2 (07:40→17:33)
[2022-06-14] MEDS: SODIUM CHLOR 7% 4 ML NEB INH SCH ×2 (07:40→17:33)
[2022-06-14] MEDS: ACETYLCYSTEINE 20% INHAL SOLN 4ML ***DISPENSED BY RESP. INH SCH ×2 (07:40→17:37)
[2022-06-14] MEDS: ALBUT/IPRATROP 3MG/0.5MG NEB 3 ML VIAL NEB SCH ×2 (07:41→17:33)
[2022-06-14] MEDS: dexAMETHasone 6 MG in SYRINGE 0 ML IV SCH (09:08)
[2022-06-14] MEDS: OSELTAMIVIR PHOSPHATE SUSP 75 MG/12.5 ML UDP PO SCH ×2 (09:08→20:43)
[2022-06-14] MEDS: UMECLIDINIUM BROMIDE 62.5MCG/BLISTER 7 PUFFS/INHALER INH SCH (09:08)
[2022-06-14] MEDS: ENOXAPARIN INJ 40 MG/0.4 ML SYR SQ SCH (09:08)
[2022-06-14] MEDS: BRIMONIDINE TARTRATE 0.2% 5ML OPB SCH ×2 (09:09→20:43)
[2022-06-14] MEDS: FLUDROCORTISONE ACETATE 0.1 MG TAB PO SCH (09:09)
[2022-06-14] MEDS: AMOXICILLIN/CLAVULANATE 875 MG TAB PO SCH ×2 (09:09→16:13)
[2022-06-14] MEDS: guaiFENesin 600 MG TABCR PO SCH ×2 (09:10→20:43)
[2022-06-14] MEDS: CITALOPRAM 20 MG TAB PEG SCH (09:10)
--- NOTE | 2022-06-14 10:56 | Hospitalist Progress Note ---
Date of Service June 14, 2022 Assessment & Plan (1) COVID-19: (2) Influenza A: (3) Acute respiratory failure with hypoxia: (4) Aspiration pneumonia: Plan: History of neck cancer status post radical neck dissection and radiation with PEG tube placement Recent admission with aspiration pneumonia; on Augmentin since 06/05 Came with worsening cough Hypoxic on presentation; COVID-19 and influenza positive Chest x-ray shows airspace consolidation at right lung base Pro-Palmer less than 0.05 Plan; For influenza, Tamiflu 75 mg twice daily for 5 days For COVID-19 infection; started on dexamethasone and remdesivir Day 2. Chest x-ray does not show typical COVID-19 pneumonia. Will continue to monitor for signs of respiratory distress. Continue on Augmentin; will finish course on 06/14. Continue aspiration precautions. Airway clearance therapy with Mucomyst, hypertonic saline and duo nebs. Unable to obtain CoughAssist machine at home due to insurance issues. Plan Chronic conditions: History of chronic obstructive pulmonary disease. Continue his home inhalers and duo nebs. 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 PEG tube noted. Getting tube feeds via PEG tube. Consult dietitian. History of hypothyroidism, on Synthroid. History of hyperlipidemia, on statin. History of depression, on citalopram. Protein-calorie malnutrition. Dietitian consulted on tube feeds. History of constipation. We will monitor bowel regimen. Deep venous thrombosis prophylaxis, Lovenox. Admission and Anticipated Discharge Date Admission Date: June 13, 2022 Subjective Patient seen and examined at bedside. Reports multiple bouts of coughing with mucopurulent phlegm. His oxygen requirement improved and he is currently in room air. As per his at bedside, patient is more alert and interactive compared to previous days. Review of Systems Review of Systems: All systems reviewed & are unremarkable except as noted in Subjective Physical Exam Physical Exam: Constitutional: Awake, alert orient x3, not in distress. Hard of hearing Respiratory: Crackles heard on right lower base. Cardiovascular: RRR, no murmur, no edema Vessels: no JVD or carotid bruit Chest: normal inspection of chest Abdomen: normal bowel sounds, soft, nontender, no hepatosplenomegaly Musculoskeletal: PEG tube present; no signs of infection. Skin: no rashes, warm and dry normal turgor Neurologic: PERRL, EOMI, accommodation nl, no face palsy, no dysarthria CN's II- XI intact bilaterally and moves all extremities Psychiatric: A+Ox3, euthymic affect Lymphatic: no cervical or axillary lymphadenopathy : deferred Results & Data Results & Data ([facility]) Vital Signs (Past 12 Hours) Vital Signs Temp Pulse Pulse Resp BP Pulse Ox O2 Del Method 06/14/22 09:12 37.0 C 72 14 167/85 H 94 Room Air 06/14/22 07:41 63 18 94 Room Air 06/14/22 07:22 66 06/14/22 03:05 37.2 C 75 18 110/62 95 Room Air 06/14/22 00:56 83 06/14/22 00:29 61 114/48 L 06/13/22 23:36 Room Air 06/13/22 23:12 90/48 L Laboratory Results Laboratory Results WBC 9.60 K/ul (4.8-10.8) 06/14/22 06:27 RBC 3.62 M/uL (4.63-6.08) L 06/14/22 06:27 Hgb 11.8 g/dl (14.0-18.0) L 06/14/22 06:27 Hct 35.5 % (40.1-51.0) L 06/14/22 06:27 MCV 98.1 fL (80.0-100.0) 06/14/22 06:27 MCH 32.6 pg (25.0-34.0) 06/14/22 06:27 MCHC 33.2 g/dL (32.0-36.0) 06/14/22 06:27 RDW Std Deviation 49.8 fL (36.4-46.3) H 06/14/22 06:27 RDW Coeff of Judy 13.8 % (11.5-14.5) 06/14/22 06:27 Plt Count 184 K/uL (130-400) 06/14/22 06:27 MPV 11.0 fL (9.4-12.4) 06/14/22 06:27 Immature Gran % (Auto) 0.6 % 06/14/22 06:27 Neut % (Auto) 80.5 % 06/14/22 06:27 Lymph % (Auto) 6.6 % 11/27/22 06:27 [place] % (Auto) 12.0 % 06/14/22 06:27 Eos % (Auto) 0.0 % 06/14/22 06:27 Baso % (Auto) 0.3 % 06/14/22 06:27 Neut # (Auto) 7.73 K/uL (1.4-6.5) H 06/14/22 06:27 Lymph # (Auto) 0.63 K/uL (1.2-3.4) L 06/14/22 06:27 [place] # (Auto) 1.15 K/uL (0.24-0.82) H 06/14/22 06:27 Eos # (Auto) 0.00 K/uL (0-0.50) 06/14/22 06: Baso # (Auto) 0.03 K/uL (0-0.2) 06/14/22 06:27 Immature Gran # (Auto) 0.06 K/uL (0.00-0.02) H 06/14/22 06:27 Sodium 139 mmol/L (136-145) 06/14/22 06:27 Potassium 3.6 mmol/L (3.5-5.1) 06/14/22 06:27 Chloride 105 mmol/L (98-107) 06/14/22 06:27 Carbon Dioxide 28 mmol/L (21-32) 06/14/22 06:27 Anion Gap 6 (3-11) 06/14/22 06:27 BUN 20 mg/dl (6-23) 06/14/22 06:27 Creatinine 0.93 mg/dl (0.6-1.4) 06/14/22 06:27 Est Cr Clr Drug Dosing 74.2 ml/min 06/14/22 06:27 Est GFR ( Amer) 93.4 ml/min 06/14/22 06:27 Est GFR (Non-Af Amer) 80.6 ml/min 06/14/22 06:27 BUN/Creatinine Ratio 21.5 (10-20) H 06/14/22 06:27 Glucose 101 mg/dl (70-99(Fasting)) H 06/14/22 06:27 Lactate 1.6 mmol/L (0.4-2.0) 06/13/22 02:50 Calcium 9.0 mg/dl (8.5-10.1) 06/14/22 06:27 Magnesium 2.4 mg/dl (1.7-2.4) 06/14/22 06:27 Total Bilirubin 0.3 mg/dl (0.2-1.0) 06/14/22 06:27 Direct Bilirubin 0.1 mg/dl (0-0.2) 06/14/22 06:27 AST 17 U/L (13-39) 06/14/22 06:27 ALT 19 U/L (7-52) 06/14/22 06:27 Alkaline Phosphatase 59 U/L (34-104) 06/14/22 06:27 Troponin I High Sens 8.3 pg/ml (0-20) D 06/13/22 02:50 Total Protein 6.6 gm/dl (6.0-8.3) D 06/14/22 06:27 Albumin 3.5 gm/dl (3.4-5.0) 06/14/22 06:27 Procalcitonin 0.05 ng/ml (0-0.5) 06/13/22 02:50 Urine Color Dark Yellow 06/13/22 19:40 Urine Appearance Clear (Clear) 06/13/22 19:40 Urine pH 6.0 (4.5-7.5) 06/13/22 19:40 Ur Specific [place] 1.028 (1.000-1.030) 06/13/22 19:40 Urine Protein 1+ (Negative) H 06/13/22 19:40 Urine Glucose (UA) Negative (Negative) 06/13/22 19:40 Urine Ketones Trace (Negative) H 06/13/22 19:40 Urine Blood Negative (Negative) 06/13/22 19:40 Urine Nitrite Negative (Negative) 06/13/22 19:40 Urine Bilirubin Negative (Negative) 06/13/22 19:40 Urine Urobilinogen Negative (Negative) 06/13/22 19:40 Ur Leukocyte Esterase Negative (Negative) 06/13/22 19:40 Urine WBC (Auto) 1-5 /hpf (0-5) 06/13/22 19:40 Urine RBC (Auto) 0-4 /hpf (0-4) 06/13/22 19:40 U Hyaline Cast (Auto) 10-30 /lpf (0-5) H 06/13/22 19:40 U Epithel Cells (Auto) 10-20 /lpf (0-5) H 06/13/22 19:40 Urine Bacteria (Auto) Negative (Negative) 06/13/22 19:40 Nasal Influ A H1 2008 PCR Cancelled 06/13/22 02:50 Adenovirus (PCR) Cancelled 06/13/22 02:50 B. pertussis DNA (PCR) Cancelled 06/13/22 02:50 B.parapertussis DNA PCR Cancelled 06/13/22 02:50 C. pneumoniae DNA (PCR) Cancelled 06/13/22 02:50 Coronavirus OC43 (PCR) Cancelled 06/13/22 02:50 Coronavirus HKU1 (PCR) Cancelled 06/13/22 02:50 Coronavirus 229E (PCR) Cancelled 06/13/22 02:50 SARS-CoV-2 (PCR) Cancelled 06/13/22 02:50 Coronavirus NL63 (PCR) Cancelled 06/13/22 02:50 Human Metapneumovir PCR Cancelled 06/13/22 02:50 Influenza A (H1) PCR Cancelled 06/13/22 02:50 Influenza A (H3) PCR Cancelled 06/13/22 02:50 Influenza Type A (PCR) Cancelled 06/13/22 02:50 Influenza A Untype (PCR) Cancelled 06/13/22 02:50 Influenza Type B (PCR) Cancelled 06/13/22 02:50 M. pneumoniae (PCR) Cancelled 06/13/22 02:50 Parainfluenza 1 (PCR) Cancelled 06/13/22 02:50 Parainfluenza 2 (PCR) Cancelled 06/13/22 02:50 Parainfluenza 3 (PCR) Cancelled 06/13/22 02:50 Parainfluenza 4 (PCR) Cancelled 06/13/22 02:50 RSV (RT-PCR) Negative (Neg) 06/13/22 02:30 RSV (PCR) Cancelled 06/13/22 02:50 Entero/Rhino (PCR) Cancelled 06/13/22 02:50 Impressions Chest X-Ray 06/13/22 02:20 SINGLE VIEW CHEST CLINICAL HISTORY: Sepsis. FINDINGS: An AP, portable, upright chest radiograph is compared to study dated 06/06/2022 and correlated with chest CT dated 06/05/2022. The examination is degraded by portable technique and patient rotation. The cardiomediastinal silhouette is top normal for projection noting atherosclerotic calcification of the thoracic aorta. Chronic residual thickening similar to previous. There is moderate airspace consolidation at the right lung base. No large pleural effusion or pneumothorax is seen. The skeletal structures are osteopenic. The bony thorax is grossly intact. IMPRESSION: Airspace consolidation at the right lung base is typical for pneumonia/aspiration pneumonitis. Clinical correlation will be required and radiographic follow-up to resolution is recommended. ACT 112: Negative or not required by law. Electronically signed by: Landen Hopkins M.D. 06/13/2022 6:05 AM
[2022-06-14] MEDS: REMDESIVIR 100 MG in SODIUM CHLORIDE 0.9% 230 ML IV SCH (12:30)
[2022-06-14] MEDS: ACETAMINOPHEN 325 MG TAB PEG PRN (13:43)
[2022-06-14] MEDS: HYDROmorphone INJ 0.5 MG/0.5 ML SYR IV PRN (13:43)
[2022-06-14] MEDS: ATORVASTATIN 40 MG TAB PEG SCH (20:42)
[2022-06-14] MEDS: LATANOPROST 0.005% OP SOLN 2.5 ML BTL OPB SCH (20:43)
[2022-06-14] MEDS: FLUTICASONE PROPIONATE NA SPR 16 GM BTL NAE SCH (20:43)
[2022-06-15] MEDS: PEPTAMEN 1.5 CAL 1,000 ML BAG PEG SCH ×3 (02:18→14:06)
[2022-06-15] MEDS: TUBE FEEDING WATER FLUSH PEG SCH ×4 (02:21→14:05)
[2022-06-15] MEDS: LEVOTHYROXINE SODIUM 88 MCG TABLET PEG SCH (05:59)
[2022-06-15 07:06] LABS: Calcium 8.7 mg/dl (8.5-10.1); Creatinine Clr Calc Pharmacy 94.6 ml/min; Est GFR (African American) 105.9 ml/min; Est GFR (Non-African American) 91.4 ml/min; Potassium 3.2 mmol/L (3.5-5.1)
[2022-06-15] MEDS: SODIUM CHLOR 7% 4 ML NEB INH SCH ×2 (07:27→19:25)
[2022-06-15] MEDS: FORMOTEROL 20 MCG/2 ML VIAL INH SCH ×2 (07:27→19:25)
[2022-06-15] MEDS: ACETYLCYSTEINE 20% INHAL SOLN 4ML ***DISPENSED BY RESP. INH SCH ×2 (07:27→19:25)
[2022-06-15] MEDS: ALBUT/IPRATROP 3MG/0.5MG NEB 3 ML VIAL NEB SCH ×2 (07:27→19:25)
[2022-06-15 08:11] LABS: Basophils # (auto) 0.03 K/uL (0-0.2); Basophils % (auto) 0.3 %; Immature Granulocytes # (auto) 0.03 K/uL (0.00-0.02); Immature Granulocytes % (auto) 0.3 %; Lymphocytes # (auto) 1.22 K/uL (1.2-3.4); Lymphocytes % (auto) 12.1 %; Mean Corpuscular Hgb Conc 34.3 g/dL (32.0-36.0); Mean Corpuscular Volume 96.2 fL (80.0-100.0); Mean Platelet Volume 11.1 fL (9.4-12.4); Monocytes # (auto) 0.84 K/uL (0.24-0.82); Monocytes % (auto) 8.3 %; Neutrophils # (auto) 7.96 K/uL (1.4-6.5); Platelet Count 165 K/uL (130-400); RDW Coefficient of Variation 14.2 % (11.5-14.5); RDW Standard Deviation 50.3 fL (36.4-46.3); Red Blood Count 3.64 M/uL (4.63-6.08); White Blood Count 10.08 K/ul (4.8-10.8)
[2022-06-15] MEDS: POTASSIUM CHLORIDE PWD 20 MEQ PACK PO SCH (09:37)
[2022-06-15] MEDS: FLUDROCORTISONE ACETATE 0.1 MG TAB PO SCH (09:38)
[2022-06-15] MEDS: ENOXAPARIN INJ 40 MG/0.4 ML SYR SQ SCH (09:38)
[2022-06-15] MEDS: dexAMETHasone 6 MG in SYRINGE 0 ML IV SCH (09:38)
[2022-06-15] MEDS: CITALOPRAM 20 MG TAB PEG SCH (09:38)
[2022-06-15] MEDS: OSELTAMIVIR PHOSPHATE SUSP 75 MG/12.5 ML UDP PO SCH ×2 (09:38→20:55)
[2022-06-15] MEDS: guaiFENesin 600 MG TABCR PO SCH ×2 (09:39→20:55)
[2022-06-15] MEDS: BRIMONIDINE TARTRATE 0.2% 5ML OPB SCH ×2 (09:39→20:56)
[2022-06-15] MEDS: UMECLIDINIUM BROMIDE 62.5MCG/BLISTER 7 PUFFS/INHALER INH SCH (09:39)
--- NOTE | 2022-06-15 11:07 | XRay Report ---
XR chest 1V portable HISTORY: 76 years-old Male Increasing cough acute cough COMPARISON: Chest radiograph 06/13/2022 TECHNIQUE: AP view of the chest FINDINGS: Cardiomediastinal and hilar silhouettes are within normal limits. No pneumothorax, pleural effusion, airspace consolidation or overt pulmonary edema. Tiny linear atelectasis versus scarring of the left lung base. Degenerative changes of the shoulders and spine. IMPRESSION: No acute process. ACT 112: Negative or not required by law. The above report was generated using voice recognition software. It may contain grammatical, syntax o r spelling errors. Electronically signed by: Yehuda Luna M.D. 06/15/2022 11:05 AM
[2022-06-15] MEDS ORDERED: Nursing to Pharmacy 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 SCH (12:15)
[2022-06-15] MEDS: REMDESIVIR 100 MG in SODIUM CHLORIDE 0.9% 230 ML IV SCH (12:58)
--- NOTE | 2022-06-15 14:08 | Hospitalist Progress Note ---
Date of Service June 15, 2022 Assessment & Plan (1) COVID-19: (2) Influenza A: (3) Acute respiratory failure with hypoxia: (4) Aspiration pneumonia: Plan: History of neck cancer status post radical neck dissection and radiation with PEG tube placement Recent admission with aspiration pneumonia; on Augmentin since 06/05 Came with worsening cough Hypoxic on presentation; COVID-19 and influenza positive Chest x-ray shows airspace consolidation at right lung base Pro-Palmer less than 0.05 Repeat x-ray shows improvement in right lower lobe infiltrate Plan; For influenza, Tamiflu 75 mg twice daily for 5 days For COVID-19 infection; started on dexamethasone and remdesivir Day 3. Chest x-ray does not show typical COVID-19 pneumonia. Will continue to monitor for signs of respiratory distress. Continue on Augmentin; finished course of 10 days on 06/14. Continue aspiration precautions. Airway clearance therapy with Mucomyst, hypertonic saline and duo nebs. Unable to obtain CoughAssist machine at home due to insurance issues. Plan Chronic conditions: History of chronic obstructive pulmonary disease. Continue his home inhalers and duo nebs. 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 Vomited tube feeds on 06/14. gives him boost at home. Ordered nutritional source of supplement instead of tube feeds. History of hypothyroidism, on Synthroid. History of hyperlipidemia, on statin. History of depression, on citalopram. Protein-calorie malnutrition. Dietitian consulted on tube feeds. History of constipation. We will monitor bowel regimen. Deep venous thrombosis prophylaxis, Lovenox. Admission and Anticipated Discharge Date Admission Date: June 13, 2022 Subjective Overnight, patient vomited to tube feed. His notes that he has been coughing up a lot of mucus overnight. Review of Systems Review of Systems: All systems reviewed & are unremarkable except as noted in Subjective Physical Exam Physical Exam: Constitutional: Awake, alert orient x3, not in distress. Hard of hearing Respiratory: Crackles heard on right lower base. Cardiovascular: RRR, no murmur, no edema Vessels: no JVD or carotid bruit Chest: normal inspection of chest Abdomen: normal bowel sounds, soft, nontender, no hepatosplenomegaly Musculoskeletal: PEG tube present; no signs of infection. Skin: no rashes, warm and dry normal turgor Neurologic: PERRL, EOMI, accommodation nl, no face palsy, no dysarthria CN's II- XI intact bilaterally and moves all extremities Psychiatric: A+Ox3, euthymic affect Lymphatic: no cervical or axillary lymphadenopathy : deferred Results & Data Results & Data ([facility]) Vital Signs (Past 12 Hours) Vital Signs Temp Pulse Pulse Resp BP Pulse Ox O2 Del Method 06/15/22 12:00 67 18 121/65 97 Room Air 06/15/22 09:40 Room Air 06/15/22 09:32 36.7 C 77 18 154/68 H 93 Room Air 06/15/22 07:27 71 20 94 Room Air 06/15/22 07:17 73 06/15/22 03:02 37.0 C 68 18 145/72 H 93 Room Air Laboratory Results Laboratory Results WBC 10.08 K/ul (4.8-10.8) 06/15/22 08:02 RBC 3.64 M/uL (4.63-6.08) L 06/15/22 08:02 Hgb 12.0 g/dl (14.0-18.0) L 06/15/22 08:02 Hct 35.0 % (40.1-51.0) L 06/15/22 08:02 MCV 96.2 fL (80.0-100.0) 06/15/22 08:02 MCH 33.0 pg (25.0-34.0) 06/15/22 08:02 MCHC 34.3 g/dL (32.0-36.0) 06/15/22 08:02 RDW Std Deviation 50.3 fL (36.4-46.3) H 06/15/22 08:02 RDW Coeff of Judy 14.2 % (11.5-14.5) 06/15/22 08:02 Plt Count 165 K/uL (130-400) 06/15/22 08:02 MPV 11.1 fL (9.4-12.4) 06/15/22 08:02 Immature Gran % (Auto) 0.3 % 06/15/22 08:02 Neut % (Auto) 79.0 % 06/15/22 08:02 Lymph % (Auto) 12.1 % 06/15/22 08:02 [place] % (Auto) 8.3 % 06/15/22 08:02 Eos % (Auto) 0.0 % 06/15/22 08:02 Baso % (Auto) 0.3 % 06/15/22 08:02 Neut # (Auto) 7.96 K/uL (1.4-6.5) H 06/15/22 08:02 Lymph # (Auto) 1.22 K/uL (1.2-3.4) 06/15/22 08:02 [place] # (Auto) 0.84 K/uL (0.24-0.82) H 06/15/22 08:02 Eos # (Auto) 0.00 K/uL (0-0.50) 06/15/22 08:02 Baso # (Auto) 0.03 K/uL (0-0.2) 06/15/22 08:02 Immature Gran # (Auto) 0.03 K/uL (0.00-0.02) H 06/15/22 08:02 Absolute Nucleated RBC Cancelled 06/15/22 05:40 Nucleated RBC % (auto) Cancelled 06/15/22 05:40 Neutrophils % (Manual) Cancelled 06/15/22 05:40 Band Neutrophils % Cancelled 06/15/22 05:40 Lymphocytes % (Manual) Cancelled 06/15/22 05:40 Prolymphocyte % Cancelled 06/15/22 05:40 Reactive Lymphs % (Man) Cancelled 06/15/22 05:40 Monocytes % (Manual) Cancelled 06/15/22 05:40 Eosinophils % (Manual) Cancelled 06/15/22 05:40 Basophils % (Manual) Cancelled 06/15/22 05:40 Metamyelocytes % (Man) Cancelled 06/15/22 05:40 Myelocytes % (Man) Cancelled 06/15/22 05:40 Promyelocytes % (Man) Cancelled 06/15/22 05:40 Blast Cells % (Manual) Cancelled 06/15/22 05:40 Plasma Cell % (Manual) Cancelled 06/15/22 05:40 Other Cells % Cancelled 06/15/22 05:40 Nucleated RBC % Cancelled 06/15/22 05:40 Neutrophils # (Manual) Cancelled 06/15/22 05:40 Band Neutrophils # Cancelled 06/15/22 05:40 Total Absolute Neuts Cancelled 06/15/22 05:40 Lymphocytes # (Manual) Cancelled 06/15/22 05:40 Prolymphocyte # Cancelled 06/15/22 05:40 Reactive Lymphs # Cancelled 06/15/22 05:40 Total Abs Lymphocytes Cancelled 06/15/22 05:40 Monocytes # (Manual) Cancelled 06/15/22 05:40 Eosinophils # (Manual) Cancelled 06/15/22 05:40 Basophils # (Manual) Cancelled 06/15/22 05:40 Metamyelocytes # (Man) Cancelled 06/15/22 05:40 Myelocytes # (Manual) Cancelled 06/15/22 05:40 Promyelocytes # (Man) Cancelled 06/15/22 05:40 Blast Cells # (Man) Cancelled 06/15/22 05:40 Plasma Cell # (Manual) Cancelled 06/15/22 05:40 Other Cells # Cancelled 06/15/22 05:40 Nucleated RBCs # (Man) Cancelled 06/15/22 05:40 Hypersegmented Neuts Cancelled 06/15/22 05:40 Hyposegmented Neuts Cancelled 06/15/22 05:40 Hypogranular Neuts Cancelled 06/15/22 05:40 Large Granular Lymphs Cancelled 06/15/22 05:40 # Lrg Granular Lymphs Cancelled 06/15/22 05:40 Hairy Cells Cancelled 06/15/22 05:40 Smudge Cells Cancelled 06/15/22 05:40 Toxic Granulation Cancelled 06/15/22 05:40 Toxic Vacuolation Cancelled 06/15/22 05:40 Dohle Bodies Cancelled 06/15/22 05:40 Pieter Rods Cancelled 06/15/22 05:40 Platelet Estimate Cancelled 06/15/22 05:40 Hypogranular Platelets Cancelled 06/15/22 05:40 Clumped Platelets Cancelled 06/15/22 05:40 Giant Platelets Cancelled 06/15/22 05:40 Platelet Satelliting Cancelled 06/15/22 05:40 RBC Morphology Cancelled 06/15/22 05:40 Polychromasia Cancelled 06/15/22 05:40 Hypochromasia Cancelled 06/15/22 05:40 Poikilocytosis Cancelled 06/15/22 05:40 Basophilic Stippling Cancelled 06/15/22 05:40 Anisocytosis Cancelled 06/15/22 05:40 Microcytosis Cancelled 06/15/22 05:40 Macrocytosis Cancelled 06/15/22 05:40 Spherocytes Cancelled 06/15/22 05:40 Pappenheimer Bodies Cancelled 06/15/22 05:40 Sickle Cells Cancelled 06/15/22 05:40 Target Cells Cancelled 06/15/22 05:40 Tear Drop Cells Cancelled 06/15/22 05:40 Ovalocytes Cancelled 06/15/22 05:40 Stomatocytes Cancelled 06/15/22 05:40 Gilmore-Escan[place] Bodies Cancelled 06/15/22 05:40 Echinocytes Cancelled 06/15/22 05:40 Acanthocytes (Spur) Cancelled 06/15/22 05:40 Rouleaux Cancelled 06/15/22 05:40 RBC Agglutinates Cancelled 06/15/22 05:40 Schistocytes Cancelled 06/15/22 05:40 Sezary Cell Cancelled 06/15/22 05:40 Sodium 138 mmol/L (136-145) 06/15/22 05:40 Potassium 3.2 mmol/L (3.5-5.1) L 06/15/22 05:40 Chloride 104 mmol/L (98-107) 06/15/22 05:40 Carbon Dioxide 27 mmol/L (21-32) 06/15/22 05:40 Anion Gap 7 (3-11) 06/15/22 05:40 BUN 19 mg/dl (6-23) 06/15/22 05:40 Creatinine 0.73 mg/dl (0.6-1.4) 06/15/22 05:40 Est Cr Clr Drug Dosing 94.6 ml/min 06/15/22 05:40 Est GFR ( Amer) 105.9 ml/min 06/15/22 05:40 Est GFR (Non-Af Amer) 91.4 ml/min 06/15/22 05:40 BUN/Creatinine Ratio 26.0 (10-20) H 06/15/22 05:40 Glucose 86 mg/dl (70-99(Fasting)) 06/15/22 05:40 Lactate 1.6 mmol/L (0.4-2.0) 06/13/22 02:50 Calcium 8.7 mg/dl (8.5-10.1) 06/15/22 05:40 Magnesium 2.4 mg/dl (1.7-2.4) 06/14/22 06:27 Total Bilirubin 0.3 mg/dl (0.2-1.0) 06/14/22 06:27 Direct Bilirubin 0.1 mg/dl (0-0.2) 06/14/22 06:27 AST 18 U/L (13-39) 06/15/22 05:40 ALT 18 U/L (7-52) 06/15/22 05:40 Alkaline Phosphatase 59 U/L (34-104) 06/14/22 06:27 Troponin I High Sens 8.3 pg/ml (0-20) D 06/13/22 02:50 Total Protein 6.6 gm/dl (6.0-8.3) D 06/14/22 06:27 Albumin 3.5 gm/dl (3.4-5.0) 06/14/22 06:27 Procalcitonin 0.05 ng/ml (0-0.5) 06/13/22 02:50 Urine Color Dark Yellow 06/13/22 19:40 Urine Appearance Clear (Clear) 06/13/22 19:40 Urine pH 6.0 (4.5-7.5) 06/13/22 19:40 Ur Specific [place] 1.028 (1.000-1.030) 06/13/22 19:40 Urine Protein 1+ (Negative) H 06/13/22 19:40 Urine Glucose (UA) Negative (Negative) 06/13/22 19:40 Urine Ketones Trace (Negative) H 06/13/22 19:40 Urine Blood Negative (Negative) 06/13/22 19:40 Urine Nitrite Negative (Negative) 06/13/22 19:40 Urine Bilirubin Negative (Negative) 06/13/22 19:40 Urine Urobilinogen Negative (Negative) 06/13/22 19:40 Ur Leukocyte Esterase Negative (Negative) 06/13/22 19:40 Urine WBC (Auto) 1-5 /hpf (0-5) 06/13/22 19:40 Urine RBC (Auto) 0-4 /hpf (0-4) 06/13/22 19:40 U Hyaline Cast (Auto) 10-30 /lpf (0-5) H 06/13/22 19:40 U Epithel Cells (Auto) 10-20 /lpf (0-5) H 06/13/22 19:40 Urine Bacteria (Auto) Negative (Negative) 06/13/22 19:40 Nasal Influ A H1 2008 PCR Cancelled 06/13/22 02:50 Adenovirus (PCR) Cancelled 06/13/22 02:50 B. pertussis DNA (PCR) Cancelled 06/13/22 02:50 B.parapertussis DNA PCR Cancelled 06/13/22 02:50 C. pneumoniae DNA (PCR) Cancelled 06/13/22 02:50 Coronavirus OC43 (PCR) Cancelled 06/13/22 02:50 Coronavirus HKU1 (PCR) Cancelled 06/13/22 02:50 Coronavirus 229E (PCR) Cancelled 06/13/22 02:50 SARS-CoV-2 (PCR) Cancelled 06/13/22 02:50 Coronavirus NL63 (PCR) Cancelled 06/13/22 02:50 Human Metapneumovir PCR Cancelled 06/13/22 02:50 Influenza A (H1) PCR Cancelled 06/13/22 02:50 Influenza A (H3) PCR Cancelled 06/13/22 02:50 Influenza Type A (PCR) Cancelled 06/13/22 02:50 Influenza A Untype (PCR) Cancelled 06/13/22 02:50 Influenza Type B (PCR) Cancelled 06/13/22 02:50 M. pneumoniae (PCR) Cancelled 06/13/22 02:50 Parainfluenza 1 (PCR) Cancelled 06/13/22 02:50 Parainfluenza 2 (PCR) Cancelled 06/13/22 02:50 Parainfluenza 3 (PCR) Cancelled 06/13/22 02:50 Parainfluenza 4 (PCR) Cancelled 06/13/22 02:50 RSV (RT-PCR) Negative (Neg) 06/13/22 02:30 RSV (PCR) Cancelled 06/13/22 02:50 Entero/Rhino (PCR) Cancelled 06/13/22 02:50 Blood Parasites ID Cancelled 06/15/22 05:40 Impressions Chest X-Ray 06/15/22 09:32 XR chest 1V portable HISTORY: 76 years-old Male Increasing cough acute cough COMPARISON: Chest radiograph 06/13/2022 TECHNIQUE: AP view of the chest FINDINGS: Cardiomediastinal and hilar silhouettes are within normal limits. No pneumothorax, pleural effusion, airspace consolidation or overt pulmonary edema. Tiny linear atelectasis versus scarring of the left lung base. Degenerative changes of the shoulders and spine. IMPRESSION: No acute process. ACT 112: Negative or not required by law. The above report was generated using voice recognition software. It may contain grammatical, syntax or spelling errors. Electronically signed by: Yehuda Luna M.D. 06/15/2022 11:05 AM
[2022-06-15] MEDS: PATIENT'S OWN ENTERAL FEEDING PEG SCH ×2 (16:09→20:56)
[2022-06-15] MEDS ORDERED: TUBE FEEDING WATER FLUSH PEG SCH (20:00)
[2022-06-15] MEDS: ATORVASTATIN 40 MG TAB PEG SCH (20:55)
[2022-06-15] MEDS: FLUTICASONE PROPIONATE NA SPR 16 GM BTL NAE SCH (20:56)
[2022-06-15] MEDS: LATANOPROST 0.005% OP SOLN 2.5 ML BTL OPB SCH (20:56)
[2022-06-16] MEDS ORDERED: ALBUT/IPRATROP 3MG/0.5MG NEB 3 ML VIAL NEB PRN (04:46)
[2022-06-16] MEDS: FORMOTEROL 20 MCG/2 ML VIAL INH SCH (05:19)
[2022-06-16] MEDS: SODIUM CHLOR 7% 4 ML NEB INH SCH (05:19)
[2022-06-16] MEDS: LEVOTHYROXINE SODIUM 88 MCG TABLET PEG SCH (06:12)
[2022-06-16 06:18] LABS: Basophils # (auto) 0.02 K/uL (0-0.2); Basophils % (auto) 0.3 %; Hematocrit (blood only) 34.2 % (40.1-51.0); Hemoglobin 11.4 g/dl (14.0-18.0); Immature Granulocytes # (auto) 0.02 K/uL (0.00-0.02); Immature Granulocytes % (auto) 0.3 %; Lymphocytes # (auto) 0.83 K/uL (1.2-3.4); Lymphocytes % (auto) 11.4 %; Mean Corpuscular Hemoglobin 32.3 pg (25.0-34.0); Mean Corpuscular Hgb Conc 33.3 g/dL (32.0-36.0); Mean Corpuscular Volume 96.9 fL (80.0-100.0); Mean Platelet Volume 11.3 fL (9.4-12.4); Monocytes # (auto) 0.65 K/uL (0.24-0.82); Monocytes % (auto) 8.9 %; Neutrophils # (auto) 5.76 K/uL (1.4-6.5); Neutrophils % (auto) 79.1 %; Platelet Count 175 K/uL (130-400); RDW Coefficient of Variation 14.1 % (11.5-14.5); RDW Standard Deviation 49.8 fL (36.4-46.3); Red Blood Count 3.53 M/uL (4.63-6.08); White Blood Count 7.28 K/ul (4.8-10.8)
[2022-06-16 06:51] LABS: Albumin Globulin Ratio 1.1 (0.9-2); Albumin Level 3.4 gm/dl (3.4-5.0); Bilirubin,Total 0.3 mg/dl (0.2-1.0); Calcium 8.7 mg/dl (8.5-10.1); Creatinine Clr Calc Pharmacy 98.6 ml/min; Est GFR (African American) 107.8 ml/min; Potassium 3.1 mmol/L (3.5-5.1); Total Protein 6.4 gm/dl (6.0-8.3)
[2022-06-16] MEDS: POTASSIUM CHLORIDE PWD 20 MEQ PACK PO SCH (09:19)
[2022-06-16] MEDS: ENOXAPARIN INJ 40 MG/0.4 ML SYR SQ SCH (09:19)
[2022-06-16] MEDS: guaiFENesin 600 MG TABCR PO SCH (09:19)
[2022-06-16] MEDS: BRIMONIDINE TARTRATE 0.2% 5ML OPB SCH (09:20)
[2022-06-16] MEDS: CITALOPRAM 20 MG TAB PEG SCH (09:20)
[2022-06-16] MEDS: FLUDROCORTISONE ACETATE 0.1 MG TAB PO SCH (09:20)
[2022-06-16] MEDS: UMECLIDINIUM BROMIDE 62.5MCG/BLISTER 7 PUFFS/INHALER INH SCH (09:21)
[2022-06-16] MEDS: PATIENT'S OWN ENTERAL FEEDING PEG SCH ×2 (09:22→12:29)
[2022-06-16] MEDS: dexAMETHasone 6 MG in SYRINGE 0 ML IV SCH (09:25)
[2022-06-16] MEDS: OSELTAMIVIR PHOSPHATE SUSP 75 MG/12.5 ML UDP PO SCH (09:51)
[2022-06-16] MEDS: REMDESIVIR 100 MG in SODIUM CHLORIDE 0.9% 230 ML IV SCH (12:29)
--- NOTE | 2022-06-16 15:36 | Discharge Summary ---
Date of Service June 16, 2022 Admission HPI Per Admitting Provider CHIEF COMPLAINT: Cough, COVID and flu positive. HISTORY OF PRESENT ILLNESS: This is a 76-year-old male with past medical history significant for head and neck cancer, status post radical dissection of the neck, status post radiation treatment and PEG tube placement, history of hypertension, history of COPD, depression, was recently in the hospital for sepsis and aspiration pneumonia, treated with antibiotics. He was treated with Unasyn and completed azithromycin for 5 days and discharged on Augmentin to complete 10 days. He was discharged on 06/09/2022 and today he comes back because his cough has been getting worse. He lives with his . The was worried about that he is getting again pneumonia. Here in the ER, he was saturating 86%. On 2 liters, he is saturating okay. Temperature spike was 38.2 and his COVID PCR and influenza A PCR came back positive. The patient is somewhat hard of hearing and also because of his neck surgery, he is somewhat hard to understand. was helping with H and P. The patient had 2-3 episodes of diarrhea yesterday, but no blood in the stools or black stools and also vomited a couple of times, complaining of back pain and some abdominal discomfort. Denies any chest pain, denies any shortness of breath. He is tolerating tube feeds as per . The patient denies any headache. Vision is okay. No runny nose, no sore throat. Normal bladder movements. No swelling in the legs. Ambulating without any support. Admission Exam Per Admitting Provider GENERAL: The patient is of moderate built, currently not in acute distress. VITAL SIGNS: Temperature T-max 38.2, pulse 93, respiratory rate 23, blood pressure 138/70, oxygen currently 96% on 2 liters. HEENT: Pupils equal, round and reactive to light. Oral mucosa dry. NECK: No JVD or neck masses. CARDIOVASCULAR: S1 and S2 heard. Regular rate and rhythm. No murmur, no gallop. RESPIRATORY SYSTEM: Normal AP diameter. No accessory muscle use. No wheezing, no crackles. ABDOMEN: Soft, bowel sounds present, nontender, no distention. CENTRAL NERVOUS SYSTEM: Alert and awake. Obeys simple commands. Moves extremities. EXTREMITIES: No edema, no erythema. Principal Diagnosis (1) COVID-19: (2) Influenza A: (3) Acute respiratory failure with hypoxia: (4) Aspiration pneumonia: Discharge Exam General- No acute distress Head- atraumatic Eyes- PERRL, EOMI, ENT- oropharynx clear Neck- supple, no JVD Lungs- +diminished BS Heart- regular rhythm; no murmur Abdomen- normal bowel sounds, soft, nontender, +Peg tube in place Extremities- no calf tenderness Neuro- alert, oriented x 3; PERRL, EOMI; no facial palsy; no dysarthria Skin- warm & dry Discharge Data Allergies Allergy/AdvReac Type Severity Reaction Status Date / Time levofloxacin Allergy Intermediate rash all Verified 01/20/22 23:48 over body sulfamethoxazole Allergy Intermediate ITCHING Verified 01/20/22 23:48 trimethoprim Allergy Intermediate ITCHING Verified 01/20/22 23:48 sertraline Allergy Mild NOSE BLEEDS Verified 01/20/22 23:48 terazosin Allergy Unknown DOES NOT Verified 01/20/22 23:48 KNOW Nitrate Analogues AdvReac Severe DROP IN BP Verified 01/20/22 23:48 Consultations 06/13/22 03:48 ED Decision to Admit Stat Ordered Studies Laboratory Results WBC 7.28 K/ul (4.8-10.8) 06/16/22 05:56 RBC 3.53 M/uL (4.63-6.08) L 06/16/22 05:56 Hgb 11.4 g/dl (14.0-18.0) L 06/16/22 05:56 Hct 34.2 % (40.1-51.0) L 06/16/22 05:56 MCV 96.9 fL (80.0-100.0) 06/16/22 05:56 MCH 32.3 pg (25.0-34.0) 06/16/22 05:56 MCHC 33.3 g/dL (32.0-36.0) 06/16/22 05:56 RDW Std Deviation 49.8 fL (36.4-46.3) H 06/16/22 05:56 RDW Coeff of Judy 14.1 % (11.5-14.5) 06/16/22 05:56 Plt Count 175 K/uL (130-400) 06/16/22 05:56 MPV 11.3 fL (9.4-12.4) 06/16/22 05:56 Immature Gran % (Auto) 0.3 % 06/16/22 05:56 Neut % (Auto) 79.1 % 06/16/22 05:56 Lymph % (Auto) 11.4 % 06/16/22 05:56 [place]ack[place] % (Auto) 8.9 % 06/16/22 05:56 Eos % (Auto) 0.0 % 06/16/22 05:56 Baso % (Auto) 0.3 % 06/16/22 05:56 Neut # (Auto) 5.76 K/uL (1.4-6.5) 06/16/22 05:56 Lymph # (Auto) 0.83 K/uL (1.2-3.4) L 06/16/22 05:56 [place]acken # (Auto) 0.65 K/uL (0.24-0.82) 06/16/22 05:56 Eos # (Auto) 0.00 K/uL (0-0.50) 06/16/22 05:56 Baso # (Auto) 0.02 K/uL (0-0.2) 06/16/22 05:56 Immature Gran # (Auto) 0.02 K/uL (0.00-0.02) 06/16/22 05:56 Absolute Nucleated RBC Cancelled 06/15/22 05:40 Nucleated RBC % (auto) Cancelled 06/15/22 05:40 Neutrophils % (Manual) Cancelled 06/15/22 05:40 Band Neutrophils % Cancelled 06/15/22 05:40 Lymphocytes % (Manual) Cancelled 06/15/22 05:40 Prolymphocyte % Cancelled 06/15/22 05:40 Reactive Lymphs % (Man) Cancelled 06/15/22 05:40 Monocytes % (Manual) Cancelled 06/15/22 05:40 Eosinophils % (Manual) Cancelled 06/15/22 05:40 Basophils % (Manual) Cancelled 06/15/22 05:40 Metamyelocytes % (Man) Cancelled 06/15/22 05:40 Myelocytes % (Man) Cancelled 06/15/22 05:40 Promyelocytes % (Man) Cancelled 06/15/22 05:40 Blast Cells % (Manual) Cancelled 06/15/22 05:40 Plasma Cell % (Manual) Cancelled 06/15/22 05:40 Other Cells % Cancelled 06/15/22 05:40 Nucleated RBC % Cancelled 06/15/22 05:40 Neutrophils # (Manual) Cancelled 06/15/22 05:40 Band Neutrophils # Cancelled 06/15/22 05:40 Total Absolute Neuts Cancelled 06/15/22 05:40 Lymphocytes # (Manual) Cancelled 06/15/22 05:40 Prolymphocyte # Cancelled 06/15/22 05:40 Reactive Lymphs # Cancelled 06/15/22 05:40 Total Abs Lymphocytes Cancelled 06/15/22 05:40 Monocytes # (Manual) Cancelled 06/15/22 05:40 Eosinophils # (Manual) Cancelled 06/15/22 05:40 Basophils # (Manual) Cancelled 06/15/22 05:40 Metamyelocytes # (Man) Cancelled 06/15/22 05:40 Myelocytes # (Manual) Cancelled 06/15/22 05:40 Promyelocytes # (Man) Cancelled 06/15/22 05:40 Blast Cells # (Man) Cancelled 06/15/22 05:40 Plasma Cell # (Manual) Cancelled 06/15/22 05:40 Other Cells # Cancelled 06/15/22 05:40 Nucleated RBCs # (Man) Cancelled 06/15/22 05:40 Hypersegmented Neuts Cancelled 06/15/22 05:40 Hyposegmented Neuts Cancelled 06/15/22 05:40 Hypogranular Neuts Cancelled 06/15/22 05:40 Large Granular Lymphs Cancelled 06/15/22 05:40 # Lrg Granular Lymphs Cancelled 06/15/22 05:40 Hairy Cells Cancelled 06/15/22 05:40 Smudge Cells Cancelled 06/15/22 05:40 Toxic Granulation Cancelled 06/15/22 05:40 Toxic Vacuolation Cancelled 06/15/22 05:40 Dohle Bodies Cancelled 06/15/22 05:40 Pieter Rods Cancelled 06/15/22 05:40 Platelet Estimate Cancelled 06/15/22 05:40 Hypogranular Platelets Cancelled 06/15/22 05:40 Clumped Platelets Cancelled 06/15/22 05:40 Giant Platelets Cancelled 06/15/22 05:40 Platelet Satelliting Cancelled 06/15/22 05:40 RBC Morphology Cancelled 06/15/22 05:40 Polychromasia Cancelled 06/15/22 05:40 Hypochromasia Cancelled 06/15/22 05:40 Poikilocytosis Cancelled 06/15/22 05:40 Basophilic Stippling Cancelled 06/15/22 05:40 Anisocytosis Cancelled 06/15/22 05:40 Microcytosis Cancelled 06/15/22 05:40 Macrocytosis Cancelled 06/15/22 05:40 Spherocytes Cancelled 06/15/22 05:40 Pappenheimer Bodies Cancelled 06/15/22 05:40 Sickle Cells Cancelled 06/15/22 05:40 Target Cells Cancelled 06/15/22 05:40 Tear Drop Cells Cancelled 06/15/22 05:40 Ovalocytes Cancelled 06/15/22 05:40 Stomatocytes Cancelled 06/15/22 05:40 [place] Bodies Cancelled 06/15/22 05:40 Echinocytes Cancelled 06/15/22 05:40 Acanthocytes (Spur) Cancelled 06/15/22 05:40 Rouleaux Cancelled 06/15/22 05:40 RBC Agglutinates Cancelled 06/15/22 05:40 Schistocytes Cancelled 06/15/22 05:40 Sezary Cell Cancelled 06/15/22 05:40 Sodium 139 mmol/L (136-145) 06/16/22 05:56 Potassium 3.1 mmol/L (3.5-5.1) L 06/16/22 05:56 Chloride 106 mmol/L (98-107) 06/16/22 05:56 Carbon Dioxide 27 mmol/L (21-32) 06/16/22 05:56 Anion Gap 6 (3-11) 06/16/22 05:56 BUN 21 mg/dl (6-23) 06/16/22 05:56 Creatinine 0.70 mg/dl (0.6-1.4) 06/16/22 05:56 Est Cr Clr Drug Dosing 98.6 ml/min 06/16/22 05:56 Est GFR ( Amer) 107.8 ml/min 06/16/22 05:56 Est GFR (Non-Af Amer) 93.0 ml/min 06/16/22 05:56 BUN/Creatinine Ratio 30.0 (10-20) H 06/16/22 05:56 Glucose 114 mg/dl (70-99(Fasting)) H 06/16/22 05:56 Lactate 1.6 mmol/L (0.4-2.0) 06/13/22 02:50 Calcium 8.7 mg/dl (8.5-10.1) 06/16/22 05:56 Magnesium 2.4 mg/dl (1.7-2.4) 06/14/22 06:27 Total Bilirubin 0.3 mg/dl (0.2-1.0) 06/16/22 05:56 Direct Bilirubin 0.1 mg/dl (0-0.2) 06/14/22 06:27 AST 21 U/L (13-39) 06/16/22 05:56 ALT 19 U/L (7-52) 06/16/22 05:56 Alkaline Phosphatase 56 U/L (34-104) 06/16/22 05:56 Troponin I High Sens 8.3 pg/ml (0-20) D 06/13/22 02:50 Total Protein 6.4 gm/dl (6.0-8.3) 06/16/22 05:56 Albumin 3.4 gm/dl (3.4-5.0) 06/16/22 05:56 Globulin 3.0 gm/dl (2.5-4.0) 06/16/22 05:56 Albumin/Globulin Ratio 1.1 (0.9-2) 06/16/22 05:56 Procalcitonin 0.05 ng/ml (0-0.5) 06/13/22 02:50 Urine Color Dark Yellow 06/13/22 19:40 Urine Appearance Clear (Clear) 06/13/22 19:40 Urine pH 6.0 (4.5-7.5) 06/13/22 19:40 Ur Specific [place] 1.028 (1.000-1.030) 06/13/22 19:40 Urine Protein 1+ (Negative) H 06/13/22 19:40 Urine Glucose (UA) Negative (Negative) 06/13/22 19:40 Urine Ketones Trace (Negative) H 06/13/22 19:40 Urine Blood Negative (Negative) 06/13/22 19:40 Urine Nitrite Negative (Negative) 06/13/22 19:40 Urine Bilirubin Negative (Negative) 06/13/22 19:40 Urine Urobilinogen Negative (Negative) 06/13/22 19:40 Ur Leukocyte Esterase Negative (Negative) 06/13/22 19:40 Urine WBC (Auto) 1-5 /hpf (0-5) 06/13/22 19:40 Urine RBC (Auto) 0-4 /hpf (0-4) 06/13/22 19:40 U Hyaline Cast (Auto) 10-30 /lpf (0-5) H 06/13/22 19:40 U Epithel Cells (Auto) 10-20 /lpf (0-5) H 06/13/22 19:40 Urine Bacteria (Auto) Negative (Negative) 06/13/22 19:40 Nasal Influ A H1 2008 PCR Cancelled 06/13/22 02:50 Adenovirus (PCR) Cancelled 06/13/22 02:50 B. pertussis DNA (PCR) Cancelled 06/13/22 02:50 B.parapertussis DNA PCR Cancelled 06/13/22 02:50 C. pneumoniae DNA (PCR) Cancelled 06/13/22 02:50 Coronavirus OC43 (PCR) Cancelled 06/13/22 02:50 Coronavirus HKU1 (PCR) Cancelled 06/13/22 02:50 Coronavirus 229E (PCR) Cancelled 06/13/22 02:50 SARS-CoV-2 (PCR) Cancelled 06/13/22 02:50 Coronavirus NL63 (PCR) Cancelled 06/13/22 02:50 Human Metapneumovir PCR Cancelled 06/13/22 02:50 Influenza A (H1) PCR Cancelled 06/13/22 02:50 Influenza A (H3) PCR Cancelled 06/13/22 02:50 Influenza Type A (PCR) Cancelled 06/13/22 02:50 Influenza A Untype (PCR) Cancelled 06/13/22 02:50 Influenza Type B (PCR) Cancelled 06/13/22 02:50 M. pneumoniae (PCR) Cancelled 06/13/22 02:50 Parainfluenza 1 (PCR) Cancelled 06/13/22 02:50 Parainfluenza 2 (PCR) Cancelled 06/13/22 02:50 Parainfluenza 3 (PCR) Cancelled 06/13/22 02:50 Parainfluenza 4 (PCR) Cancelled 06/13/22 02:50 RSV (RT-PCR) Negative (Neg) 06/13/22 02:30 RSV (PCR) Cancelled 06/13/22 02:50 Entero/Rhino (PCR) Cancelled 06/13/22 02:50 Blood Parasites ID Cancelled 06/15/22 05:40 Impressions Chest X-Ray 06/15/22 09:32 XR chest 1V portable HISTORY: 76 years-old Male Increasing cough acute cough COMPARISON: Chest radiograph 06/13/2022 TECHNIQUE: AP view of the chest FINDINGS: Cardiomediastinal and hilar silhouettes are within normal limits. No pneumothorax, pleural effusion, airspace consolidation or overt pulmonary edema. Tiny linear atelectasis versus scarring of the left lung base. Degenerative changes of the shoulders and spine. IMPRESSION: No acute process. ACT 112: Negative or not required by law. The above report was generated using voice recognition software. It may contain grammatical, syntax or spelling errors. Electronically signed by: Yehuda Luna M.D. 06/15/2022 11:05 AM Hospital Course (1) COVID-19: (2) Influenza A: (3) Acute respiratory failure with hypoxia: (4) Aspiration pneumonia: History of neck cancer status post radical neck dissection and radiation with PEG tube placement Recent admission with aspiration pneumonia; on Augmentin since 06/05 Came with worsening cough Hypoxic on presentation; COVID-19 and influenza positive Chest x-ray shows airspace consolidation at right lung base Pro-[place]mer less than 0.05 Repeat x-ray shows improvement in right lower lobe infiltrate Plan; For influenza, Tamiflu 75 mg twice daily for 5 days For COVID-19 infection; started on dexamethasone and remdesivir Day 3. Chest x-ray does not show typical COVID-19 pneumonia. Will continue to monitor for signs of respiratory distress. Continue on Augmentin; finished course of 10 days on 06/14. Continue aspiration precautions. Airway clearance therapy with Mucomyst, hypertonic saline and duo nebs. Unable to obtain CoughAssist machine at home due to insurance issues. - Plan to discharge home today Plan Chronic conditions: History of chronic obstructive pulmonary disease. Continue his home inhalers and duo nebs. 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 Vomited tube feeds on 06/14. gives him boost at home. Ordered nutritional source of supplement instead of tube feeds. History of hypothyroidism, on Synthroid. History of hyperlipidemia, on statin. History of depression, on citalopram. Protein-calorie malnutrition. Dietitian consulted on tube feeds. History of constipation. stable Deep venous thrombosis prophylaxis, Lovenox during hospital course Total Time Total Time Spent Total Time Spent (In Minutes): 35 minutes Discharge Plan Discharge Items Patient Disposition: Home - Self-Care Reason For Visit: COUGH Discharge Diagnosis: (1) COVID-19: (2) Influenza A: (3) Acute respiratory failure with hypoxia: (4) Aspiration pneumonia: Activity: Resume your previous activity Non-emergency contact: Primary Care Provider Call non-emergency contact if: you have any medication questions, your symptoms worsen and your temperature is above 101 Follow-up/Referrals: Sanjiv Hart MD [Primary Care Provider] - (Date & Time 06/23/2022 11:00 AM Provider [facility] ) Diet: Other - See Diet Comment Addtl Attending Provider Instructions: Follow up with your primary care provider 06/23/2022 @ 11:00 AM [facility] Continue with flutter valve and incentive spirometer. Continue with Mucomyst and hypertonic saline nebulization at home. Establish and maintain follow up with lung doctor. You will likely need CT chest in 6 weeks to document resolution of your pneumonia, coordinate with your PCP or lung doctor. Continue with strict mouth care: [place] all surfaces of the mouth and tongue throughout the day and before bed to reduce the amount of bacteria that can be aspirated in saliva. Continue tube feeding as previously directed Check BMP in 1 week to monitor your electrolytes Take your meds as prescribed. Seek medical attention if your develop any shortness of breath Pending Studies at Discharge: No Stand-Alone Forms: My [facility], Smoking Cessation Medications and DC Order Prescriptions: New potassium chloride 20 mEq Packet 20 meq PO QAM Qty: 30 0RF oseltamivir [Tamiflu] 6 mg/mL Suspension For Reconstitution 75 mg PO BID Qty: 3 0RF guaifenesin [Mucinex] 600 mg Tablet Extended Release 12hr 600 mg PO Q12 Qty: 10 0RF Continued latanoprost 0.005 % Drops 1 drp OPB HS citalopram 20 mg tablet 20 mg Feeding Tube QAM Nutritional Drink Liquid 2 can Feeding Tube QID Rx Instructions: BOOST (2 CANS QID) brimonidine 0.2 % drops 1 drp OPB BID albuterol sulfate 90 mcg/actuation HFA aerosol inhaler 2 puff INHALATION QID PRN (Reason: Shortness Of Breath) acetaminophen [Tylenol Extra Strength] 500 mg Tablet 1,000 mg PO Q6H PRN (Reason: Pain) levothyroxine [Euthyrox] 88 mcg tablet 88 mcg feeding tube QAM atorvastatin 40 mg tablet 40 mg feeding tube HS midodrine 5 mg Tablet 10 mg feeding tube TID PRN (Reason: Hypotension) Rx Instructions: PRN systolic BP < 180 fludrocortisone 0.1 mg tablet 0.1 mg feeding tube DAILY Spiriva Respimat 2.5 mcg/actuation mist 2 puff INHALATION DAILY fluticasone propionate 50 mcg/actuation [place],Suspension 2 spray JONN HS Qty: 16 0RF formoterol fumarate [Perforomist] 20 mcg/2 mL solution for nebulization 2 ml inhalation BID Qty: 120 0RF acetylcysteine 200 mg/mL (20 %) Solution 5 ml inhalation Q12R Qty: 90 0RF sodium chloride 7 % solution for nebulization 1 inh inhalation BID Qty: 120 0RF Discontinued amoxicillin-pot clavulanate 875-125 mg Tablet 1 tab PO BIDM 6 Days Qty: 12 0RF Discharge Orders: Discharge Order (Routine); Ordered 06/16/22 Ordered By: Sol Duvall Admission Data Admit Date/Time: 06/13/22 04:34 Attending Provider: Sol Duvall Admit Provider: Luiz Bonilla Primary Care Provider: Sanjiv Hart Other Providers: Luiz Bonilla ; Angel Germain Other Interventions: Discharge Summary Assessment (RN) Last Done: 06/16/22 15:39
== END 2022-06-16 16:45 | disposition home or self-care (01) | DRG 177 ==
LOC: ED 01:47 → 2W 04:34 → SUATTDRO 04:34 → 2W 04:58

== ENCOUNTER 2022-08-13 18:02 | Inpatient (IN) ==
[2022-08-13 19:07] LABS: Basophils # (auto) 0.03 K/uL (0-0.2); Basophils % (auto) 0.3 %; Eosinophils # (auto) 0.24 K/uL (0-0.50); Eosinophils % (auto) 2.5 %; Hematocrit (blood only) 44.1 % (42.0-52.0); Hemoglobin 14.9 g/dl (14.0-18.0); Immature Granulocytes # (auto) 0.04 K/uL (0.01-0.20); Immature Granulocytes % (auto) 0.4 %; Lymphocytes # (auto) 0.53 K/uL (1.2-3.4); Lymphocytes % (auto) 5.4 %; Mean Corpuscular Hemoglobin 32.9 pg (25.0-34.0); Mean Corpuscular Hgb Conc 33.8 g/dL (32.0-36.0); Mean Corpuscular Volume 97.4 fL (80.0-100.0); Monocytes # (auto) 0.61 K/uL (0.11-0.59); Monocytes % (auto) 6.3 %; Neutrophils # (auto) 8.31 K/uL (1.40-6.50); Neutrophils % (auto) 85.1 %; Platelet Count 159 K/uL (130-400); RDW Coefficient of Variation 13.6 % (11.5-14.5); RDW Standard Deviation 48.6 fL (36.4-46.3); Red Blood Count 4.53 M/uL (4.70-6.10); White Blood Count 9.76 K/ul (4.8-10.8)
[2022-08-13 19:26] LABS: Bilirubin,Total 0.8 mg/dl (0.2-1.0); Calcium 9.4 mg/dl (8.5-10.1); Potassium 4.2 mmol/L (3.5-5.1)
[2022-08-13 19:32] LABS: Albumin Globulin Ratio 1.2 (0.9-2); Est GFR (Non-African American) 73.3 ml/min; Globulin 3.3 gm/dl (2.5-4.0); Total Protein 7.3 gm/dl (6.0-8.3)
[2022-08-13 19:35] LABS: Influenza A virus by PCR Negative (Neg); Influenza B virus by PCR Negative (Neg); RSV by PCR Negative (Neg); SARS CoV2 RNA(COVID-19) Ceph NEGATIVE (Negative)
--- NOTE | 2022-08-13 19:51 | XRay Report ---
XR chest 1V portable HISTORY: illness COMPARISON: Chest CTA 07/31/2022. FINDINGS: The lungs are clear. Cardiac silhouette is normal in size. No pleural effusions. No pneumot horax. IMPRESSION: No acute process. ACT 112: Negative or not required by law. Electronically signed by: Rylan Archuleta M.D. 08/13/2022 7:50 PM
[2022-08-13] MEDS ORDERED: CEFEPIME 2,000 MG/20 ML VIAL IV STA (19:57)
[2022-08-13] MEDS ORDERED: ACETAMINOPHEN 1,000 MG/100 ML VIAL IV STA (19:57)
[2022-08-13] MEDS ORDERED: SODIUM CHLORIDE 0.9% 1000ML 1,000 ML IV ONE ×2 (19:58→23:08)
--- NOTE | 2022-08-13 20:15 | Emergency Department Note ---
Impression & Plan Rigors, Confusion, Fever ED Provider Note NAME: DEMETRIO WELSH AGE: 77 SEX: M : 1945 ARRIVES VIA: Walk-In INFORMANT: [Patient][] ED PROVIDER(S): [Landen Castanon MD] CHIEF COMPLAINT: Illness HISTORY OF PRESENT ILLNESS: The patient is a 77-year-old male who presents today with chills and some confusion. He has complained of a bit of a stuffy nose and cough. The patient has been having issues with constipation. Today, he had a very large and hard bowel movement that he actually needed help along with some manual disimpaction. He denies chest pain or abdominal pain. There has been no rash. He does have a left upper quadrant feeding tube that is apparently, soon to be replaced. As per the , the patient was confused and altered and not quite himself earlier. He seems better now. As per triage, the patient was hypotensive when he first arrived as well as febrile. No focal neurologic findings. PMHx/PSHx: See Below SOCIAL HISTORY: See Below. PHYSICAL EXAM: GENERAL: Patient is in no acute distress. Shivering. HEENT: No acute trauma, normocephalic atraumatic, mucous membranes moist, no nasal congestion. NECK: No stridor, no adenopathy, no meningismus, trachea is midline. LUNGS: Clear to auscultation bilaterally, no wheeze, no rhonchi, breath sounds equal. HEART: Without murmurs gallops or rubs, regular rate and rhythm. ABDOMEN: Soft, nontender, bowel sounds positive, no peritonitis. There is a feeding tube in the left upper quadrant. No significant erythema surrounding the insertion site. EXTREMITIES: No cyanosis or edema, full range of motion of all the joints without pain or difficulty, no signs for acute trauma. NEUROLOGIC: Awake and alert, speech is slurred but this is baseline, no acute motor or sensory deficits, no focal weakness. SKIN: No rash, no jaundice, no diaphoresis. Skin is warm to the touch. DIFFERENTIAL DIAGNOSIS: Sepsis, UTI, pyelonephritis, pneumonia, metabolic abnormality, electrolyte abnormality, cellulitis, bacteremia, intracerebral event, RSV, COVID-19, influenza, as well as other pathologies. EMERGENCY DEPARTMENT COURSE/PROCEDURES: Prior/Outside records reviewed: Recent ED visit. ECG per my interpretation: Indication was weakness and confusion. The ECG shows a normal sinus rhythm with some sinus arrhythmia. The rate is 85. There is no ST elevation, no PVCs P the QTc is 428. Continuous Cardiac Monitoring per my interpretation: An order was placed for continuous cardiac monitoring. The monitor shows a rate of 95 with normal sinus rhythm. MEDICAL DECISION MAKING: There is no leukocytosis or concerning anemia. There is a normal platelet count. No renal failure or significant electrolyte abnormality. Lactic acid level is not elevated making sepsis less likely. There were some subtle liver enzyme elevations however, the bilirubin was normal. Procalcitonin level was normal. Urinalysis did not show findings of infection. COVID, influenza and RSV test returned negative. Chest x-ray does not show pneumonia, free air or CHF per my review. Brain CT shows chronic change, no acute bleed or mass- effect. Abdominal and pelvis CT shows a potential enteritis, no bowel obstru ction, no acute surgical pathology, no diverticulitis. On exam, the patient was shivering. He was febrile. The patient received IV saline, 1 L. He was given IV cefepime as antibiotic coverage. He received IV Tylenol for his temperature elevation. The patient is currently resting comfortably. He has a presentation consistent with infection, at this point, the source is unclear. Given his past history, given the confusion earlier, I do think a hospital stay would be warranted. I spoke with the patient and his , I did speak with case management, the on- call hospitalist was consulted. DISPOSITION: Based on the patient's presentation and findings, I believe hospital admission is warranted/appropriate. Past Med/Surg History Medical History Anxiety Aspiration pneumonia hx - CAN NOT TAKE FOOD/LIQUIDS ORALLY Asthma rare use of PRN inh Benign prostatic hyperplasia (Unknown) Blood pressure instability new issue for pt -- [facility] Cardiology manages; currently using midodrine, and nitro PRN hypo/hypertension; per , cardiac workup wnl aside from BP changes Chronic back pain COPD (chronic obstructive pulmonary disease) with emphysema Degenerative disc disease Depression Gastroparesis GERD (gastroesophageal reflux disease) Glaucoma Hearing loss History of COVID-19 05/2021 treated for pneumonia at [facility]- 06/13/22 admitted to [facility] 06/2022with covid pneumonia, flu, and RSV Hypertension Hypothyroidism Osteoarthritis Speech difficult to understand 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 Uses feeding tube Surgical History H/O esophagogastroduodenoscopy (Unknown) WITH PLACEMENT PEG TUBE History of anesthesia reaction SLOW TO WAKE UP History of neck surgery LUMPECTOMY History of radical neck dissection History of tooth extraction S/P arthroscopic knee surgery (Unknown) RT S/P colonoscopy (Unknown) Family History Brother Family history of diabetes mellitus Social History Smoking Status: Former smoker Tobacco Type: Cigarettes Second Hand Exposure: No; Hx Alcohol Use: No Hx Substance Use: No Preferred Language: Guamanian 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 Ability: Impaired Artificial Breeding Distributor Required: No Beliefs That Will Affect Care: None marital status: Current Living Situation: Spouse Feels Safe at Home: Yes Assistive Devices: Nebulizer Allergies Allergies Allergy/AdvReac Type Severity Reaction Status Date / Time levofloxacin Allergy Intermediate rash all Verified 08/13/22 19:26 over body sulfamethoxazole Allergy Intermediate ITCHING Verified 08/13/22 19:26 trimethoprim Allergy Intermediate ITCHING Verified 08/13/22 19:26 terazosin Allergy Unknown DOES NOT Verified 08/13/22 19:26 KNOW Nitrate Analogues AdvReac Severe DROP IN BP Verified 08/13/22 19:26 sertraline AdvReac Intermediate NOSE BLEEDS Verified 08/13/22 19:26 Home Meds Home Medications Medication Instructions Recorded Confirmed citalopram 20 mg tablet 20 mg feeding tube QAM 05/07/18 08/13/22 food supplemt, lactose-reduced 2 can feeding tube QID 05/07/18 08/13/22 (Nutritional Drink oral liquid) latanoprost 0.005 % eye drops 1 drp OPB HS 01/30/19 08/13/22 albuterol sulfate 90 mcg/actuation 2 puff inhalation QID PRN 11/08/20 08/13/22 aerosol inhaler Shortness Of Breath brimonidine 0.2 % eye drops 1 drp OPB BID 11/08/20 08/13/22 acetaminophen 500 mg tablet 1,000 mg PO Q6H PRN Pain 03/06/21 08/13/22 (Tylenol Extra Strength) levothyroxine 88 mcg tablet 88 mcg feeding tube QAM 04/06/21 08/13/22 (Euthyrox) midodrine 5 mg tablet 10 mg feeding tube TID PRN 05/13/21 08/13/22 Hypotension atorvastatin 40 mg tablet 40 mg feeding tube HS 06/02/21 08/13/22 fludrocortisone 0.1 mg tablet 0.1 mg feeding tube DAILY 06/05/22 08/13/22 tiotropium bromide 2.5 2 puff inhalation QAM 06/05/22 08/13/22 mcg/actuation mist for inhalation (Spiriva Respimat) Previous Rx's Medication Instructions Recorded acetylcysteine 200 mg/mL (20 %) 5 ml inhalation Q12R #90 mL 06/09/22 solution fluticasone propionate 50 2 spray JONN HS #16 grams 06/09/22 mcg/actuation nasal spray,suspension formoterol fumarate 20 mcg/2 mL 2 ml inhalation BID #120 mL 06/09/22 solution for nebulization (Perforomist) sodium chloride 7 % for 1 inh inhalation BID #120 mL 06/09/22 nebulization guaifenesin 600 mg tablet, 600 mg PO Q12 #10 tabs 06/16/22 extended release 12 hr (Mucinex) nystatin 100,000 unit/gram topical 1 applic topical BID #30 grams 07/31/22 ointment Results & Data (ED) Vital Signs Vital Signs - 24 hr 08/13/22 18:07 08/13/22 19:03 08/13/22 19:10 Temperature 38.7 C H Temperature Source Temporal Artery Scan Pulse Rate 105 H 83 85 Pulse Rate from SpO2 Sensor 84 85 Respiratory Rate 20 25 H 25 H Respiratory Effort / Characteristics Non-Labored Respiratory Depth Normal Blood Pressure 154/100 H Blood Pressure Mean 118 Pulse Oximetry 96 92 88 L Oxygen Delivery Method Room Air Sepsis Recent Fever Within 48 Hours No Sepsis New/Unexplained Change in Mental Status No Sepsis Action Taken by Nursing No Action Required 08/13/22 19:20 08/13/22 19:30 08/13/22 19:30 Temperature Temperature Source Pulse Rate 89 93 H Pulse Rate from SpO2 Sensor 90 94 H Respiratory Rate 25 H 24 Respiratory Effort / Characteristics Respiratory Depth Blood Pressure 184/101 H Blood Pressure Mean 128 Pulse Oximetry 91 92 Oxygen Delivery Method Sepsis Recent Fever Within 48 Hours Sepsis New/Unexplained Change in Mental Status Sepsis Action Taken by Nursing 08/13/22 19:40 08/13/22 19:50 08/13/22 20:00 Temperature Temperature Source Pulse Rate 94 H 95 H Pulse Rate from SpO2 Sensor 91 H 93 H Respiratory Rate 26 H 22 Respiratory Effort / Characteristics Respiratory Depth Blood Pressure 210/115 H Blood Pressure Mean 146 Pulse Oximetry 93 97 Oxygen Delivery Method Sepsis Recent Fever Within 48 Hours Sepsis New/Unexplained Change in Mental Status Sepsis Action Taken by Nursing 08/13/22 20:00 08/13/22 20:10 08/13/22 20:20 Temperature Temperature Source Pulse Rate 97 H 98 H 89 Pulse Rate from SpO2 Sensor 99 H Respiratory Rate 27 H 36 H 21 Respiratory Effort / Characteristics Respiratory Depth Blood Pressure Blood Pressure Mean Pulse Oximetry 97 Oxygen Delivery Method Sepsis Recent Fever Within 48 Hours Sepsis New/Unexplained Change in Mental Status Sepsis Action Taken by Nursing 08/13/22 20:26 08/13/22 20:26 08/13/22 20:30 Temperature Temperature Source Pulse Rate 102 H Pulse Rate from SpO2 Sensor 101 H Respiratory Rate 19 Respiratory Effort / Characteristics Respiratory Depth Blood Pressure 216/135 H 203/120 H Blood Pressure Mean 162 147 Pulse Oximetry 94 Oxygen Delivery Method Sepsis Recent Fever Within 48 Hours Sepsis New/Unexplained Change in Mental Status Sepsis Action Taken by Nursing 08/13/22 20:30 08/13/22 20:40 08/13/22 20:50 Temperature Temperature Source Pulse Rate 95 H 90 91 H Pulse Rate from SpO2 Sensor 96 H 91 H 91 H Respiratory Rate 17 23 26 H Respiratory Effort / Characteristics Respiratory Depth Blood Pressure Blood Pressure Mean Pulse Oximetry 91 90 88 L Oxygen Delivery Method Sepsis Recent Fever Within 48 Hours Sepsis New/Unexplained Change in Mental Status Sepsis Action Taken by Nursing 08/13/22 21:00 08/13/22 21:00 08/13/22 21:19 Temperature Temperature Source Pulse Rate 87 99 H Pulse Rate from SpO2 Sensor Respiratory Rate 22 31 H Respiratory Effort / Characteristics Respiratory Depth Blood Pressure 134/75 Blood Pressure Mean 94 Pulse Oximetry Oxygen Delivery Method Sepsis Recent Fever Within 48 Hours Sepsis New/Unexplained Change in Mental Status Sepsis Action Taken by Nursing 08/13/22 21:20 08/13/22 21:20 08/13/22 21:30 Temperature Temperature Source Pulse Rate 98 H Pulse Rate from SpO2 Sensor Respiratory Rate 22 Respiratory Effort / Characteristics Respiratory Depth Blood Pressure 195/98 H 119/69 Blood Pressure Mean 130 85 Pulse Oximetry Oxygen Delivery Method Sepsis Recent Fever Within 48 Hours Sepsis New/Unexplained Change in Mental Status Sepsis Action Taken by Nursing 08/13/22 21:30 08/13/22 21:40 08/13/22 21:50 Temperature Temperature Source Pulse Rate 86 83 81 Pulse Rate from SpO2 Sensor 84 83 81 Respiratory Rate 20 20 20 Respiratory Effort / Characteristics Respiratory Depth Blood Pressure Blood Pressure Mean Pulse Oximetry 98 97 98 Oxygen Delivery Method Sepsis Recent Fever Within 48 Hours Sepsis New/Unexplained Change in Mental Status Sepsis Action Taken by Intermediate Medications Current Medication List: was personally reviewed by me Laboratory Data Attestation: I reviewed the patient's lab results. 08/13/22 18:45 08/13/22 18:45 Lab Results 08/13/22 08/13/22 08/13/22 Range/Units 18:45 18:45 18:45 WBC 9.76 (4.8-10.8) K/ul RBC 4.53 L (4.70-6.10) M/uL Hgb 14.9 (14.0-18.0) g/dl Hct 44.1 (42.0-52.0) % MCV 97.4 (80.0-100.0) fL MCH 32.9 (25.0-34.0) pg MCHC 33.8 (32.0-36.0) g/dL RDW Std Deviation 48.6 H (36.4-46.3) fL RDW Coeff of Judy 13.6 (11.5-14.5) % Plt Count 159 (130-400) K/uL MPV 12.0 (9.4-12.4) fL Immature Gran % (Auto) 0.4 % Neut % (Auto) 85.1 % Lymph % (Auto) 5.4 % [place] % (Auto) 6.3 % Eos % (Auto) 2.5 % Baso % (Auto) 0.3 % Neut # (Auto) 8.31 H (1.40-6.50) K/uL Lymph # (Auto) 0.53 L (1.2-3.4) K/uL [place] # (Auto) 0.61 H (0.11-0.59) K/uL Eos # (Auto) 0.24 (0-0.50) K/uL Baso # (Auto) 0.03 (0-0.2) K/uL Immature Gran # (Auto) 0.04 (0.01-0.20) K/uL Sodium 137 (136-145) mmol/L Potassium 4.2 (3.5-5.1) mmol/L Chloride 99 (98-107) mmol/L Carbon Dioxide 33 H (21-32) mmol/L Anion Gap 5 (3-11) BUN 12 (6-23) mg/dl Creatinine 1.00 (0.6-1.4) mg/dl Est Cr Clr Drug Dosing 68.0 ml/min Est GFR ( Amer) 85.0 ml/min Est GFR (Non-Af Amer) 73.3 ml/min BUN/Creatinine Ratio 12.0 (10-20) Glucose 97 (70-99(Fasting)) mg/dl Lactate (0.4-2.0) mmol/L Calcium 9.4 (8.5-10.1) mg/dl Magnesium (1.7-2.4) mg/dl Total Bilirubin 0.8 (0.2-1.0) mg/dl AST 70 H (13-39) U/L ALT 138 H (7-52) U/L Alkaline Phosphatase 86 (34-104) U/L Total Protein 7.3 (6.0-8.3) gm/dl Albumin 4.0 (3.4-5.0) gm/dl Globulin 3.3 (2.5-4.0) gm/dl Albumin/Globulin Ratio 1.2 (0.9-2) Procalcitonin (0-0.5) ng/ml Urine Color Urine Appearance (Clear) Urine pH (4.5-7.5) Ur Specific [place] (1.000-1.030) Urine Protein (Negative) Urine Glucose (UA) (Negative) Urine Ketones (Negative) Urine Blood (Negative) Urine Nitrite (Negative) Urine Bilirubin (Negative) Urine Urobilinogen (Negative) Ur Leukocyte Esterase (Negative) Urine WBC (Auto) (0-5) /hpf Urine RBC (Auto) (0-4) /hpf U Hyaline Cast (Auto) (0-5) /lpf U Epithel Cells (Auto) (0-5) /lpf Urine Bacteria (Auto) (Negative) SARS-CoV-2 (PCR) NEGATIVE (Negative) Influenza Type A (PCR) Negative (Neg) Influenza Type B (PCR) Negative (Neg) RSV (RT-PCR) Negative (Neg) 08/13/22 08/13/22 08/13/22 Range/Units 18:45 18:45 19:57 WBC (4.8-10.8) K/ul RBC (4.70-6.10) M/uL Hgb (14.0-18.0) g/dl Hct (42.0-52.0) % MCV (80.0-100.0) fL MCH (25.0-34.0) pg MCHC (32.0-36.0) g/dL RDW Std Deviation (36.4-46.3) fL RDW Coeff of Judy (11.5-14.5) % Plt Count (130-400) K/uL MPV (9.4-12.4) fL Immature Gran % (Auto) % Neut % (Auto) % Lymph % (Auto) % [place] % (Auto) % Eos % (Auto) % Baso % (Auto) % Neut # (Auto) (1.40-6.50) K/uL Lymph # (Auto) (1.2-3.4) K/uL [place] # (Auto) (0.11-0.59) K/uL Eos # (Auto) (0-0.50) K/uL Baso # (Auto) (0-0.2) K/uL Immature Gran # (Auto) (0.01-0.20) K/uL Sodium (136-145) mmol/L Potassium (3.5-5.1) mmol/L Chloride (98-107) mmol/L Carbon Dioxide (21-32) mmol/L Anion Gap (3-11) BUN (6-23) mg/dl Creatinine (0.6-1.4) mg/dl Est Cr Clr Drug Dosing ml/min Est GFR ( Amer) ml/min Est GFR (Non-Af Amer) ml/min BUN/Creatinine Ratio (10-20) Glucose (70-99(Fasting)) mg/dl Lactate (0.4-2.0) mmol/L Calcium (8.5-10.1) mg/dl Magnesium 2.0 (1.7-2.4) mg/dl Total Bilirubin (0.2-1.0) mg/dl AST (13-39) U/L ALT (7-52) U/L Alkaline Phosphatase (34-104) U/L Total Protein (6.0-8.3) gm/dl Albumin (3.4-5.0) gm/dl Globulin (2.5-4.0) gm/dl Albumin/Globulin Ratio (0.9-2) Procalcitonin < 0.05 (0-0.5) ng/ml Urine Color Yellow Urine Appearance Cloudy A (Clear) Urine pH >= 9.0 H (4.5-7.5) Ur Specific [place] 1.010 (1.000-1.030) Urine Protein Trace H (Negative) Urine Glucose (UA) Negative (Negative) Urine Ketones Negative (Negative) Urine Blood Negative (Negative) Urine Nitrite Negative (Negative) Urine Bilirubin Negative (Negative) Urine Urobilinogen Negative (Negative) Ur Leukocyte Esterase Negative (Negative) Urine WBC (Auto) 0 (0-5) /hpf Urine RBC (Auto) 0-4 (0-4) /hpf U Hyaline Cast (Auto) 1-5 (0-5) /lpf U Epithel Cells (Auto) 10-20 H (0-5) /lpf Urine Bacteria (Auto) Negative (Negative) SARS-CoV-2 (PCR) (Negative) Influenza Type A (PCR) (Neg) Influenza Type B (PCR) (Neg) RSV (RT-PCR) (Neg) 08/13/22 Range/Units 20:20 WBC (4.8-10.8) K/ul RBC (4.70-6.10) M/uL Hgb (14.0-18.0) g/dl Hct (42.0-52.0) % MCV (80.0-100.0) fL MCH (25.0-34.0) pg MCHC (32.0-36.0) g/dL RDW Std Deviation (36.4-46.3) fL RDW Coeff of Judy (11.5-14.5) % Plt Count (130-400) K/uL MPV (9.4-12.4) fL Immature Gran % (Auto) % Neut % (Auto) % Lymph % (Auto) % [place] % (Auto) % Eos % (Auto) % Baso % (Auto) % Neut # (Auto) (1.40-6.50) K/uL Lymph # (Auto) (1.2-3.4) K/uL [place] # (Auto) (0.11-0.59) K/uL Eos # (Auto) (0-0.50) K/uL Baso # (Auto) (0-0.2) K/uL Immature Gran # (Auto) (0.01-0.20) K/uL Sodium (136-145) mmol/L Potassium (3.5-5.1) mmol/L Chloride (98-107) mmol/L Carbon Dioxide (21-32) mmol/L Anion Gap (3-11) BUN (6-23) mg/dl Creatinine (0.6-1.4) mg/dl Est Cr Clr Drug Dosing ml/min Est GFR ( Amer) ml/min Est GFR (Non-Af Amer) ml/min BUN/Creatinine Ratio (10-20) Glucose (70-99(Fasting)) mg/dl Lactate 2.0 (0.4-2.0) mmol/L Calcium (8.5-10.1) mg/dl Magnesium (1.7-2.4) mg/dl Total Bilirubin (0.2-1.0) mg/dl AST (13-39) U/L ALT (7-52) U/L Alkaline Phosphatase (34-104) U/L Total Protein (6.0-8.3) gm/dl Albumin (3.4-5.0) gm/dl Globulin (2.5-4.0) gm/dl Albumin/Globulin Ratio (0.9-2) Procalcitonin (0-0.5) ng/ml Urine Color Urine Appearance (Clear) Urine pH (4.5-7.5) Ur Specific [place] (1.000-1.030) Urine Protein (Negative) Urine Glucose (UA) (Negative) Urine Ketones (Negative) Urine Blood (Negative) Urine Nitrite (Negative) Urine Bilirubin (Negative) Urine Urobilinogen (Negative) Ur Leukocyte Esterase (Negative) Urine WBC (Auto) (0-5) /hpf Urine RBC (Auto) (0-4) /hpf U Hyaline Cast (Auto) (0-5) /lpf U Epithel Cells (Auto) (0-5) /lpf Urine Bacteria (Auto) (Negative) SARS-CoV-2 (PCR) (Negative) Influenza Type A (PCR) (Neg) Influenza Type B (PCR) (Neg) RSV (RT-PCR) (Neg) Administered Medications Discontinued Medications Cefepime HCl (Maxipime) 2,000 mg in 20 mls @ 5 mls/min IV NOW STA; Protocol Stop: 08/13/22 20:00 Last Admin: 08/13/22 20:12 Dose: 5 mls/min Documented By: MAUDE Acetaminophen (Ofirmev) 1,000 mg in 100 mls @ 400 mls/hr IV NOW STA Stop: 08/13/22 20:11 Last Infusion: 08/13/22 20:30 Dose: 0 mls/hr Documented By: [facility] Admin: 08/13/22 20:11 Dose: 400 mls/hr Documented By: MAUDE Sodium Chloride (Nss 1000ml) 1,000 mls @ 999 mls/hr IV .Q1H1M ONE Stop: 08/13/22 20:58 Last Infusion: 08/13/22 21:13 Dose: 0 mls/hr Documented By: [facility] Admin: 08/13/22 20:11 Dose: 999 mls/hr Documented By: MAUDE Ioversol (Optiray 350 100ml) 85 ml IV ONCE ONE Stop: 08/13/22 21:12 Last Admin: 08/13/22 21:13 Dose: 85 ml Documented By: BELTRAN Imaging Data Radiologist's Impression: Chest X-Ray 08/13/22 18:14 XR chest 1V portable HISTORY: illness COMPARISON: Chest CTA 07/31/2022. FINDINGS: The lungs are clear. Cardiac silhouette is normal in size. No pleural effusions. No pneumothorax. IMPRESSION: No acute process. ACT 112: Negative or not required by law. Electronically signed by: Rylan Archultea M.D. 08/13/2022 7:[address]: No acute intracranial hemorrhage. There is some parenchymal volume loss with chronic microvascular ischemic changes. No mass lesion or mass-ef fect. Mucosal thickening noticed in the sinuses. Abdominal and pelvis CT: Gastrostomy tube present. Wall thickening versus underdistention of the transverse colon. This could be seen with colitis. Fluid in the small bowel could be seen with enteritis. Atelectasis in the lower lobes. Discharge Plan Visit Data Chief Complaint: Illness Stated Complaint: SINUS INFECTION,BOWELS ARE BLOCKED ED Provider: Landen Castanon Discharge Problem: Rigors, Confusion, Fever Patient Disposition: Admitted As Inpatient Condition: Fair Forms Stand Alone Forms: [facility] Prescriptions Prescriptions: No Action latanoprost 0.005 % Drops 1 drp OPB HS citalopram 20 mg tablet 20 mg Feeding Tube QAM Nutritional Drink Liquid 2 can Feeding Tube QID Rx Instructions: BOOST (2 CANS QID) brimonidine 0.2 % drops 1 drp OPB BID albuterol sulfate 90 mcg/actuation HFA aerosol inhaler 2 puff INHALATION QID PRN (Reason: Shortness Of Breath) acetaminophen [Tylenol Extra Strength] 500 mg Tablet 1,000 mg PO Q6H PRN (Reason: Pain) levothyroxine [Euthyrox] 88 mcg tablet 88 mcg feeding tube QAM atorvastatin 40 mg tablet 40 mg feeding tube HS guaifenesin [Mucinex] 600 mg Tablet Extended Release 12hr 600 mg PO Q12 Qty: 10 0RF midodrine 5 mg Tablet 10 mg feeding tube TID PRN (Reason: Hypotension) Rx Instructions: PRN systolic BP < 180 fludrocortisone 0.1 mg tablet 0.1 mg feeding tube DAILY Spiriva Respimat 2.5 mcg/actuation mist 2 puff INHALATION QAM fluticasone propionate 50 mcg/actuation [place],Suspension 2 spray JONN HS Qty: 16 0RF formoterol fumarate [Perforomist] 20 mcg/2 mL solution for nebulization 2 ml inhalation BID Qty: 120 0RF acetylcysteine 200 mg/mL (20 %) Solution 5 ml inhalation Q12R Qty: 90 0RF sodium chloride 7 % solution for nebulization 1 inh inhalation BID Qty: 120 0RF nystatin 100,000 unit/gram ointment 1 applic topical BID Qty: 30 0RF Rx Instructions: Apply to affected area surround feeding tube. Referrals Referrals: Sanjiv Hart MD [Primary Care Provider] -
[2022-08-13 20:40] LABS: Appearance Urine Cloudy (Clear); Bacteria Urine Automated Negative (Negative); Bilirubin Urine Negative (Negative); Blood Urine Negative (Negative); Color Urine Yellow; Glucose Urine UA Negative (Negative); Ketones Urine Negative (Negative); Leukocyte Esterase Urine Negative (Negative); Nitrite Urine Negative (Negative); RBC Urine Automated 0-4 /hpf (0-4); Urobilinogen Urine Negative (Negative); WBC Urine Automated 0 /hpf (0-5); pH Urine >= 9.0 (4.5-7.5)
[2022-08-13 20:46] LABS: Protein Urine Trace (Negative)
[2022-08-13] MEDS ORDERED: OPTIRAY 350 100ml IV ONE (21:11)
--- NOTE | 2022-08-13 22:26 | History & Physical Report ---
Date of Service August 13, 2022 Assessment & Plan (1) Fever: Plan: Possible viral illness No obvious source of bacterial infection for now hx tonsillar cancer status post chemoradiation/neck dissection, COPD, not in acute exacerbation orthostatic hypotension on fludrocortisone Constipation hypothyroidism. euthyroid as of recent TSH last year Past tobacco abuse OBS GMF Supportive management for presumptive viral illness for now Hold off antibiotics until definite bacterial source found Bowel regimen DVT prophylaxis per Lovenox subcu Full code Patient's requesting updates providers. Ms. Dalila Canseco, contact #[phone] 09/23 [id number]. Text document was generated using [employer] voice recognition software. It may contain grammatical or spelling errors. Kindly contact undersigned for clarification of any documentation item in question. History of Present Illness Chief Complaint: Fever Primary Care Provider: Sanjiv Hart MD History obtained from patient, family, and records. Limited history from patient secondary to marked hearing impairment. Medical history is significant for tonsillar cancer status post chemoradiation/neck dissection, COPD, past tobacco abuse, orthostatic hypotension on fludrocortisone, known aspiration risk sp PEG tube placement, gastroparesis, hypothyroidism, glaucoma. Last confinement May 2022 for respiratory failure secondary to COVID-19, influenza, and aspiration pneumonia. Patient completed Decadron and remdesivir course. Patient not feeling well yesterday as per . Stuffy nose with dry cough symptoms. Some chills. No headache symptoms. Mild confusion as per . No chest pain, no SOB, No cough symptoms. Minimal abdominal discomfort from constipation requiring manual fecal disimpaction at home as per . Ticks at home without recollection of recent tick bites as per . Patient brought to the ER for evaluation. IV cefepime administered at the ER. MEDICAL HISTORY: As above. SURGERIES: He has had neck/reconstruction surgery, lymph node dissection, knee surgery, dental surgery. FAMILY HISTORY: Diabetes, heart disease, COPD PERSONAL AND SOCIAL HISTORY: Past tobacco abuse. No chronic intake of alcoholic beverages, retired [employer] Allergies Allergy/AdvReac Type Severity Reaction Status Date / Time levofloxacin Allergy Intermediate rash all Verified 08/13/22 19:26 over body sulfamethoxazole Allergy Intermediate ITCHING Verified 08/13/22 19:26 trimethoprim Allergy Intermediate ITCHING Verified 08/13/22 19:26 terazosin Allergy Unknown DOES NOT Verified 08/13/22 19:26 KNOW Nitrate Analogues AdvReac Severe DROP IN BP Verified 08/13/22 19:26 sertraline AdvReac Intermediate NOSE BLEEDS Verified 08/13/22 19:26 Home Medications Medication Instructions Recorded Confirmed Type citalopram 20 mg tablet 20 mg feeding tube QAM 05/07/18 08/13/22 History food supplemt, lactose-reduced 2 can feeding tube QID 05/07/18 08/13/22 History (Nutritional Drink oral liquid) latanoprost 0.005 % eye drops 1 drp OPB HS 01/30/19 08/13/22 History albuterol sulfate 90 mcg/actuation 2 puff inhalation QID PRN 11/08/20 08/13/22 History aerosol inhaler Shortness Of Breath brimonidine 0.2 % eye drops 1 drp OPB BID 11/08/20 08/13/22 History acetaminophen 500 mg tablet 1,000 mg PO Q6H PRN Pain 03/06/21 08/13/22 History (Tylenol Extra Strength) levothyroxine 88 mcg tablet 88 mcg feeding tube QAM 04/06/21 08/13/22 History (Euthyrox) midodrine 5 mg tablet 10 mg feeding tube TID PRN 05/13/21 08/13/22 History Hypotension atorvastatin 40 mg tablet 40 mg feeding tube HS 06/02/21 08/13/22 History fludrocortisone 0.1 mg tablet 0.1 mg feeding tube DAILY 06/05/22 08/13/22 History tiotropium bromide 2.5 2 puff inhalation QAM 06/05/22 08/13/22 History mcg/actuation mist for inhalation (Spiriva Respimat) acetylcysteine 200 mg/mL (20 %) 5 ml inhalation Q12R #90 mL 06/09/22 08/13/22 Rx solution fluticasone propionate 50 2 spray JONN HS #16 grams 06/09/22 08/13/22 Rx mcg/actuation nasal spray,suspension formoterol fumarate 20 mcg/2 mL 2 ml inhalation BID #120 mL 06/09/22 08/13/22 Rx solution for nebulization (Perforomist) sodium chloride 7 % for 1 inh inhalation BID #120 mL 06/09/22 08/13/22 Rx nebulization guaifenesin 600 mg tablet, 600 mg PO Q12 #10 tabs 11/29/22 01/26/23 Rx extended release 12 hr (Mucinex) nystatin 100,000 unit/gram topical 1 applic topical BID #30 grams 07/31/22 08/13/22 Rx ointment Past Med/Surg History Medical History Anxiety Aspiration pneumonia hx - CAN NOT TAKE FOOD/LIQUIDS ORALLY Asthma rare use of PRN inh Benign prostatic hyperplasia (Unknown) Blood pressure instability new issue for pt -- [facility] Cardiology manages; currently using midodrine, and nitro PRN hypo/hypertension; per , cardiac workup wnl aside from BP changes Chronic back pain COPD (chronic obstructive pulmonary disease) with emphysema Degenerative disc disease Depression Gastroparesis GERD (gastroesophageal reflux disease) Glaucoma Hearing loss History of COVID-19 05/2021 treated for pneumonia at [facility]- 06/13/22 admitted to [facility] 06/2022with covid pneumonia, flu, and RSV Hypertension Hypothyroidism Osteoarthritis Speech difficult to understand 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 Uses feeding tube Surgical History H/O esophagogastroduodenoscopy (Unknown) WITH PLACEMENT PEG TUBE History of anesthesia reaction SLOW TO WAKE UP History of neck surgery LUMPECTOMY History of radical neck dissection History of tooth extraction S/P arthroscopic knee surgery (Unknown) RT S/P colonoscopy (Unknown) Family History Brother Family history of diabetes mellitus Social History Smoking Status: Former smoker Tobacco Type: Cigarettes Smoking End Date: 40 years ago; Second Hand Exposure: No; Do You Dip or Chew Tobacco: No; Hx Alcohol Use: No Hx Substance Use: No Preferred Language: Swedish 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 Ability: Impaired 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 Ability Comment: assist w/ answering questions Cream Ripener Required: No Beliefs That Will Affect Care: None marital status: Current Living Situation: Spouse Other Information That Helps Us Care for You: No Feels Safe at Home: Yes Safety Concerns: Feels Safe At This Time Assistive Devices: Glasses Assistive Devices Comment: reading glasses- not here Review of Systems Review of Systems: Could not be reliably obtained secondary to hearing impairment Physical Exam Physical Exam: GENERAL: Comfortable, dysarthric (chronic), hard of hearing, pleasant, no respiratory distress SKIN: Normal color, warm HEENT: [place] palpebral conjunctivae, no ptosis, chronic facial asymmetry, dry buccal mucosa NECK : Supple, no tenderness CHEST : Decreased breath sounds, no tenderness HEART : RRR, no obvious murmurs ABDOMEN: some distention, PEG tube in place, nontender EXTREMITIES : no LE swelling, no LE tenderness, no other conspicuous deformities noted NEUROLOGIC : Coherent, chronic facial asymmetry, chronic dysarthria, hard of hearing, gait and stance not assessed Results & Data Results & Data ([facility]) Vital Signs (Past 12 Hours) Vital Signs Temp Pulse Resp BP Pulse Ox O2 Del Method 08/13/22 21:50 81 20 98 08/13/22 21:40 83 20 97 08/13/22 21:30 86 20 98 08/13/22 21:30 119/69 08/13/22 21:20 98 H 22 08/13/22 21:20 195/98 H 08/13/22 21:19 99 H 31 H 08/13/22 21:00 87 22 08/13/22 21:00 134/75 08/13/22 20:50 91 H 26 H 88 L 08/13/22 20:40 90 23 90 08/13/22 20:30 95 H 17 91 08/13/22 20:30 203/120 H 08/13/22 20:26 102 H 19 94 08/13/22 20:26 216/135 H 08/13/22 20:20 89 21 08/13/22 20:10 98 H 36 H 08/13/22 20:00 97 H 27 H 97 08/13/22 20:00 210/115 H 08/13/22 19:50 95 H 22 97 08/13/22 19:40 94 H 26 H 93 08/13/22 19:30 93 H 24 92 08/13/22 19:30 184/101 H 08/13/22 19:20 89 25 H 91 08/13/22 19:10 85 25 H 88 L 08/13/22 19:03 83 25 H 92 08/13/22 18:07 38.7 C H 105 H 20 154/100 H 96 Room Air Laboratory Results Laboratory Results WBC 9.76 K/ul (4.8-10.8) 08/13/22 18:45 RBC 4.53 M/uL (4.70-6.10) L 08/13/22 18:45 Hgb 14.9 g/dl (14.0-18.0) 08/13/22 18:45 Hct 44.1 % (42.0-52.0) 08/13/22 18:45 MCV 97.4 fL (80.0-100.0) 08/13/22 18:45 MCH 32.9 pg (25.0-34.0) 08/13/22 18:45 MCHC 33.8 g/dL (32.0-36.0) 08/13/22 18:45 RDW Std Deviation 48.6 fL (36.4-46.3) H 08/13/22 18:45 RDW Coeff of Judy 13.6 % (11.5-14.5) 08/13/22 18:45 Plt Count 159 K/uL (130-400) 08/13/22 18:45 MPV 12.0 fL (9.4-12.4) 08/13/22 18:45 Immature Gran % (Auto) 0.4 % 08/13/22 18:45 Neut % (Auto) 85.1 % 08/13/22 18:45 Lymph % (Auto) 5.4 % 08/13/22 18:45 [place] % (Auto) 6.3 % 08/13/22 18:45 Eos % (Auto) 2.5 % 08/13/22 18:45 Baso % (Auto) 0.3 % 08/13/22 18:45 Neut # (Auto) 8.31 K/uL (1.40-6.50) H 08/13/22 18:45 Lymph # (Auto) 0.53 K/uL (1.2-3.4) L 08/13/22 18:45 [place] # (Auto) 0.61 K/uL (0.11-0.59) H 08/13/22 18:45 Eos # (Auto) 0.24 K/uL (0-0.50) 08/13/22 18:45 Baso # (Auto) 0.03 K/uL (0-0.2) 08/13/22 18:45 Immature Gran # (Auto) 0.04 K/uL (0.01-0.20) 08/13/22 18:45 Sodium 137 mmol/L (136-145) 08/13/22 18:45 Potassium 4.2 mmol/L (3.5-5.1) 08/13/22 18:45 Chloride 99 mmol/L (98-107) 08/13/22 18:45 Carbon Dioxide 33 mmol/L (21-32) H 08/13/22 18:45 Anion Gap 5 (3-11) 08/13/22 18:45 BUN 12 mg/dl (6-23) 08/13/22 18:45 Creatinine 1.00 mg/dl (0.6-1.4) 08/13/22 18:45 Est Cr Clr Drug Dosing 68.0 ml/min 08/13/22 18:45 Est GFR ( Amer) 85.0 ml/min 08/13/22 18:45 Est GFR (Non-Af Amer) 73.3 ml/min 08/13/22 18:45 BUN/Creatinine Ratio 12.0 (10-20) 08/13/22 18:45 Glucose 97 mg/dl (70-99(Fasting)) 08/13/22 18:45 Lactate 2.0 mmol/L (0.4-2.0) 08/13/22 20:20 Calcium 9.4 mg/dl (8.5-10.1) 08/13/22 18:45 Magnesium 2.0 mg/dl (1.7-2.4) 08/13/22 18:45 Total Bilirubin 0.8 mg/dl (0.2-1.0) 08/13/22 18:45 AST 70 U/L (13-39) H 08/13/22 18:45 ALT 138 U/L (7-52) H 08/13/22 18:45 Alkaline Phosphatase 86 U/L (34-104) 08/13/22 18:45 Total Protein 7.3 gm/dl (6.0-8.3) 08/13/22 18:45 Albumin 4.0 gm/dl (3.4-5.0) 08/13/22 18:45 Globulin 3.3 gm/dl (2.5-4.0) 08/13/22 18:45 Albumin/Globulin Ratio 1.2 (0.9-2) 08/13/22 18:45 Urine Color Yellow 08/13/22 19:57 Urine Appearance Cloudy (Clear) A 08/13/22 19:57 Urine pH >= 9.0 (4.5-7.5) H 08/13/22 19:57 Ur Specific [place] 1.010 (1.000-1.030) 08/13/22 19:57 Urine Protein Trace (Negative) H 08/13/22 19:57 Urine Glucose (UA) Negative (Negative) 08/13/22 19:57 Urine Ketones Negative (Negative) 08/13/22 19:57 Urine Blood Negative (Negative) 08/13/22 19:57 Urine Nitrite Negative (Negative) 08/13/22 19:57 Urine Bilirubin Negative (Negative) 08/13/22 19:57 Urine Urobilinogen Negative (Negative) 08/13/22 19:57 Ur Leukocyte Esterase Negative (Negative) 08/13/22 19:57 Urine WBC (Auto) 0 /hpf (0-5) 08/13/22 19:57 Urine RBC (Auto) 0-4 /hpf (0-4) 08/13/22 19:57 U Hyaline Cast (Auto) 1-5 /lpf (0-5) 08/13/22 19:57 U Epithel Cells (Auto) 10-20 /lpf (0-5) H 08/13/22 19:57 Urine Bacteria (Auto) Negative (Negative) 08/13/22 19:57 SARS-CoV-2 (PCR) NEGATIVE (Negative) 08/13/22 18:45 Influenza Type A (PCR) Negative (Neg) 08/13/22 18:45 Influenza Type B (PCR) Negative (Neg) 08/13/22 18:45 RSV (RT-PCR) Negative (Neg) 08/13/22 18:45 Impressions Chest X-Ray 08/13/22 18:14 XR chest 1V portable HISTORY: illness COMPARISON: Chest CTA 07/31/2022. FINDINGS: The lungs are clear. Cardiac silhouette is normal in size. No pleural effusions. No pneumothorax. IMPRESSION: No acute process. ACT 112: Negative or not required by law. Electronically signed by: Rylan Archuleta M.D. 08/13/2022 7:[address] head initial read: No intracranial hemorrhage. Global parenchymal volume loss with chronic microvascular ischemic changes. No mass lesion, mass effect, or ventriculomegaly. Mucosal thickening in the paranasal sinuses CT abdomen pelvis initial read: Gastrostomy tube present, unchanged in position. Wall thickening versus underdistention of the transverse colon. This could be seen with colitis in the appropriate clinical scenario. Fluid in the small bowel could be seen with enteritis in the appropriate clinical scenario. Atelectasis in the lower lobes EKG as per my interpretation :Rate 85, NSR, LAD, LAFB, no ischemia (1) Fever Fever type: unspecified Qualified Code(s): R50.9 - Fever, unspecified
[2022-08-13] MEDS ORDERED: ACETAMINOPHEN 1,000 MG/100 ML VIAL IV PRN (23:09)
[2022-08-13] MEDS ORDERED: POLYETHYLENE (MIRALAX) 17 GM PACK PEG STA (23:09)
[2022-08-13 23:35] LABS: Lyme Ab IgG w/WB Rflx Negative (Negative); Lyme Ab IgM w/WB Rflx Negative (Negative)
[2022-08-14] MEDS: PROMETHAZINE HCL 12.5 MG in SODIUM CHLORIDE 0.9% 50 ML IV PRN (00:51)
[2022-08-14] MEDS: BRIMONIDINE TARTRATE 0.2% 5ML OPB SCH ×3 (00:53→21:39)
[2022-08-14] MEDS ORDERED: hydrALAZINE HCL 20 MG/ML VIAL IV STA (00:54)
[2022-08-14] MEDS: LATANOPROST 0.005% OP SOLN 2.5 ML BTL OPB SCH ×2 (00:54→21:39)
[2022-08-14] MEDS: LEVOTHYROXINE SODIUM 88 MCG TABLET PEG SCH (06:01)
[2022-08-14] MEDS ORDERED: SODIUM CHLOR 7% 4 ML NEB INH SCH (07:00)
[2022-08-14] MEDS ORDERED: ACETYLCYSTEINE 20% INHAL SOLN 30ML INH SCH (07:00)
[2022-08-14] MEDS ORDERED: ACETYLCYSTEINE 20% INHAL SOLN 4ML ***DISPENSED BY RESP. INH SCH (07:00)
[2022-08-14] MEDS: FORMOTEROL 20 MCG/2 ML VIAL INH SCH ×2 (07:05→19:06)
--- NOTE | 2022-08-14 07:30 | CT Scan Report ---
CT head/brain wo con CLINICAL HISTORY: confusion Technique: Contiguous axial CT images of the head were acquired from the base of the skull to the morena cathy without intravenous contrast administration. Images were viewed in brain, [facility]. Automated dose lowering techniques and/or adjustment according to patient size were utilized for this exam. Comparison: Comparison is made to CT head 06/07/2021 Findings: Areas of decreased attenuation are present in the periventricular and subcortical white matter bilate rally consistent with small vessel ischemic disease. Generalized cerebral atrophy with commensurate e nlargement of the ventricles, sulci, and cisterns is also present. There is no acute intracranial hem orrhage or evidence of acute territorial infarction. No shift of the midline structures, mass effect, or extra-axial abnormalities are shown. Atherosclerotic calcifications are present in the intracran ial segments of the internal carotid arteries. Opacification of multiple ethmoid air cells noted. The orbits appear normal. There are no acute frac tures of the calvaria or scalp swelling. Impression: Opacification of multiple ethmoid air cells noted. Otherwise chronic age-related changes as above. ACT 112: Negative or not required by law. Electronically signed by: Richi Graves M.D. 08/14/2022 7:28 AM
[2022-08-14 07:52] LABS: Basophils # (auto) 0.04 K/uL (0-0.2); Basophils % (auto) 0.3 %; Eosinophils # (auto) 0.06 K/uL (0-0.50); Eosinophils % (auto) 0.4 %; Hematocrit (blood only) 37.3 % (42.0-52.0); Hemoglobin 12.7 g/dl (14.0-18.0); Immature Granulocytes # (auto) 0.08 K/uL (0.01-0.20); Immature Granulocytes % (auto) 0.5 %; Lymphocytes # (auto) 0.66 K/uL (1.2-3.4); Lymphocytes % (auto) 4.4 %; Mean Corpuscular Hemoglobin 32.9 pg (25.0-34.0); Mean Corpuscular Volume 96.6 fL (80.0-100.0); Mean Platelet Volume 12.2 fL (9.4-12.4); Monocytes # (auto) 0.95 K/uL (0.11-0.59); Monocytes % (auto) 6.3 %; Neutrophils # (auto) 13.18 K/uL (1.40-6.50); Neutrophils % (auto) 88.1 %; Platelet Count 143 K/uL (130-400); RDW Standard Deviation 49.4 fL (36.4-46.3); Red Blood Count 3.86 M/uL (4.70-6.10); White Blood Count 14.97 K/ul (4.8-10.8)
--- NOTE | 2022-08-14 08:11 | CT Scan Report ---
ABDOMEN AND PELVIS CT WITH IV CONTRAST CT DOSE: 867.05 mGy.cm HISTORY: Acute generalized abdominal pain with fever diffuse abdominal pain, fever TECHNIQUE: Multiaxial CT images of the abdomen and pelvis were performed following the IV administrat ion of 85 cc of Optiray, A dose lowering technique was utilized adhering to the principles of ALARA. COMPARISON STUDY: CT abdomen and pelvis July 31, 2022 FINDINGS: Atelectasis with scarring of the lung bases redemonstrated. The study is limited secondary to upper extremities positioning, and respiratory motion artifact. 11 mm hypodense focus of the spleen on image 57 series 6 is indeterminate however favored to be benig n. Unremarkable pancreas, gallbladder, adrenal glands and liver. There are a few subcentimeter hepati c cysts again noted. Patency of the hepatic and portal veins. Unremarkable appearance of the kidneys. No hydronephrosis. Prostamegaly. Urinary bladder wall thickening with partial distention. Atheroscle rosis of the aorta without aneurysm. No lymphadenopathy identified. No bowel obstruction. Decompressed transverse colon with wall thickening. Moderate colonic fecal rete ntion. No CT evidence of acute appendicitis. Satisfactory positioning of the gastrostomy tube. Unrema rkable soft tissues. No acute fracture. Degenerative changes of the spine, pelvis and hips. IMPRESSION: 1. No bowel obstruction. 2. Wall thickening of the transverse colon is likely secondary to partial distention. A nonspecific c olitis considered less likely. 3. Stable positioning of the gastrostomy tube. 4. Additional findings as above. ACT 112: Negative or not required by law. The above report was generated using voice recognition software. It may contain grammatical, syntax o r spelling errors. Electronically signed by: Yehuda Luna M.D. 08/14/2022 8:09 AM
[2022-08-14] MEDS ORDERED: SODIUM CHLORIDE 0.9% 1000ML 1,000 ML IV ONE (08:12)
[2022-08-14] MEDS ORDERED: PIPERACILLIN/TAZOBACTAM 3.375 GM in DEXTROSE 5% 100 ML IV SCH (08:15)
[2022-08-14 08:21] LABS: Calcium 8.7 mg/dl (8.5-10.1)
[2022-08-14 08:26] LABS: BUN Creatinine Ratio 14.7 (10-20); Creatinine Clr Calc Pharmacy 66.6 ml/min; Est GFR (African American) 82.9 ml/min; Est GFR (Non-African American) 71.6 ml/min
[2022-08-14] MEDS: ENOXAPARIN INJ 40 MG/0.4 ML SYR SQ SCH (08:29)
[2022-08-14] MEDS ORDERED: PIPERACILLIN/TAZOBACTAM 3.375 GM (over 30 mins) IV ONE (08:30)
[2022-08-14] MEDS: CITALOPRAM 20 MG TAB PEG SCH (08:31)
[2022-08-14] MEDS: SENNOSIDES 8.8 MG/5 ML UDC PEG SCH (08:33)
[2022-08-14] MEDS: UMECLIDINIUM BROMIDE 62.5MCG/BLISTER 7 PUFFS/INHALER INH SCH (08:33)
[2022-08-14] MEDS: FLUDROCORTISONE ACETATE 0.1 MG TAB PO SCH (08:34)
[2022-08-14] MEDS ORDERED: NON-FORMULARY MEDICATION (Tiotropium Bromide [Spiriva Respimat] 2.5 mcg/actuation mist) INH SCH (09:00)
[2022-08-14] MEDS ORDERED: FOOD SUPPLEMT LACTOSE REDUCED Feeding Tube SCH (09:00)
[2022-08-14] MEDS: HYDROCORTISONE SOD 50 MG in SYRINGE 0 ML IV SCH ×3 (09:38→23:57)
[2022-08-14] MEDS: SODIUM CHLORIDE 0.9% 1000ML 1,000 ML IV SCH ×3 (09:49→23:57)
[2022-08-14] MEDS: TUBE FEEDING WATER FLUSH GT SCH ×3 (13:27→20:13)
[2022-08-14] MEDS: PEPTAMEN 1.5 CAL 1,000 ML BAG PEG SCH ×3 (13:27→20:12)
[2022-08-14] MEDS: PIPERACILLIN/TAZOBACTAM 3.375 GM in DEXTROSE 5% 100 ML IV SCH ×2 (14:30→22:03)
--- NOTE | 2022-08-14 15:14 | Electrocardiogram Report ---
Test Reason : Blood Pressure : / mmHG Vent. Rate : 085 BPM Atrial Rate : 085 BPM P-R Int : 142 ms QRS Dur : 078 ms QT Int : 360 ms P-R-T Axes : 058 -32 018 degrees QTc Int : 428 ms Normal sinus rhythm with sinus arrhythmia Left axis deviation Abnormal ECG When compared with ECG of 13-JUN-2022 02:54, No significant change was found Confirmed by Yung Love ([id number]) on 08/14/2022 3:13:58 PM Referred By: REFERRED SELF Confirmed By:Ryan Love
--- NOTE | 2022-08-14 17:36 | Hospitalist Progress Note ---
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 SIRS criteria Unclear source Initially febrile at 38.7, labile BP with some hypotension currently 84/40, leukocytosis, 9.7 -> 14 overnight with elevated neutrophils and monocytes on differential Possible viral illness but no clear source -urine clear, COVID, flu A/B and RSV negative, and Lyme serology negative, CT abdomen pelvis normal with possible nonspecific colitis chest x-ray clear Given dose of cefepime in ED but with increased leukocytosis, started on empiric Zosyn for now. Follow blood cultures Added Anaplasma and peripheral smear due to malaise, transaminitis noted but peripheral smear without evidence of inclusion bodies. Anaplasma DNA pending Clinically improving with fluids, IV Zosyn and hydrocortisone at cover for possible stress response Hx tonsillar cancer status post chemoradiation/neck dissection COPD Stable. Saturating at 97% on 2 L nasal cannula. Continue home inhalers Orthostatic hypotension on fludrocortisone Labile blood pressure noted by with SBP ranging from 70-200 at home. Follows with [facility] cardiology. Continue fludrocortisone, continue to monitor Constipation PRN Miralax, had large bowel movement today Hypothyroidism Continue levothyroxine DVT Ppx: SQ lovenox Code status: FULL Dispo: Admitted to med/surg Patient seen in collaboration with Dr. Rico. Please see addendum. A total of 60 minutes were spent with greater than 50% of that time face to face with the patient, personally reviewing all current laboratories, imaging studies, past medication reconciliation, outpatient chart review, and discussion with specialists to collaborate care for the patient with attending and utilization of translation services. Please see attending documentation for corrections and/or additions. Admission and Anticipated Discharge Date Admission Date: August 13, 2022 Supervising Physician Co-Signing Physician Notes delayed entry date of service noted above Attending Addendum: care coordinated with ROMAN Pollock please refer to her notes for full details, I agree with her notes patient seen and examined, records reviewed by myself as well on exam, patient seen resting in bed, sleepy feels tired but feels improved compared to admission reports headache and nasal congestion/drainage at home no other symptoms VS noted and reviewed oriented x 3, not in distress, speaks in sentences with no effort nor accessory muscle use normal rate, regular rhythm, no murmurs clear breath sounds bilaterally non distended, soft, nontender no bipedal edema, erythema, warmth no neuro deficits all noted and reviewed including below ASSESSMENT AND PLAN Sepsis, likely secondary to bacterial sinusitis, rule out bacteremia other diagnoses and plan of care as per ROMAN Rico MD Subjective Patient seen and examined in 378 after being admitted last evening due to infectious symptoms, fever and malaise. Patient still lethargic but able to answer some questions appropriately despite being hard of hearing. Mainly obtained information from at bedside. States they were out at a social event when she noticed his face was flushed and he started to complain of abdominal pain, prompting the visit to the ED. Since admission, patient had a large bowel movement and abdominal pain has resolved. Still sleeping a lot more than baseline, per . Has a very labile blood pressure at baseline with systolic blood pressure fluctuating from 70s to 200s at home monitoring, per . Denying any pain and is comfortable at rest right now. No chest pain or shortness of breath. No abdominal pain. Remainder of ROS difficult to obtain due to lethargic state. Is a strict n.p.o. with PEG in place. has had Lyme disease recently and they have a cat who was in and out and sleeps near him. No rash or recent known sick exposure. Review of Systems Review of Systems: ROS Limited to HPI Physical Exam Physical Exam: Gen: WD/WN, NAD, lying in bed, A&Ox3, lethargic but awakens to questions HEENT: Hard of hearing, Normocephalic, atraumatic, conjunctivae moist, sclerae anicteric, mucous membranes moist Lung: Clear to Auscultation bilaterally, no wheezes/rales/rhonchi Heart: Regular rate, regular rhythm, no murmurs, rubs, or gallops Abdomen: Soft, NT, ND +BS x 4. +Peg tube noted, no surrounding erythema Extremities: no edema Skin: Warm, no rash Results & Data Results & Data ([facility]) Vital Signs (Past 12 Hours) Vital Signs Temp Pulse Pulse Resp BP BP Pulse Ox 08/14/22 14:41 36.6 C 65 16 84/40 L 97 08/14/22 14:00 63 81/50 L 08/14/22 09:17 60 18 92/53 L 95 08/14/22 08:23 61 18 73/41 L 95 08/14/22 07:41 85/47 L 08/14/22 07:39 36.9 C 73 16 73/34 L 93 08/14/22 07:04 63 18 95 08/14/22 06:00 38.4 C H O2 Del Method O2 Flow Rate 08/14/22 14:41 Nasal Cannula 2 08/14/22 14:00 08/14/22 09:17 Nasal Cannula 1 08/14/22 08:23 Nasal Cannula 1 08/14/22 07:41 08/14/22 07:39 Room Air 08/14/22 07:04 Nasal Cannula 4 08/14/22 06:00 Laboratory Results Short CBC 08/13/22 08/14/22 Range/Units 18:45 07:20 WBC 9.76 14.97 H (4.8-10.8) K/ul Hgb 14.9 12.7 L (14.0-18.0) g/dl Hct 44.1 37.3 L (42.0-52.0) % Plt Count 159 143 (130-400) K/uL BMP 08/13/22 08/14/22 18:45 07:20 Sodium 137 137 Potassium 4.2 4.0 Chloride 99 104 Carbon Dioxide 33 H 28 BUN 12 15 Creatinine 1.00 1.02 Glucose 97 130 H Calcium 9.4 8.7 Liver Function 08/13/22 Range/Units 18:45 Total Bilirubin 0.8 (0.2-1.0) mg/dl AST 70 H (13-39) U/L ALT 138 H (7-52) U/L Alkaline Phosphatase 86 (34-104) U/L Albumin 4.0 (3.4-5.0) gm/dl Urine 08/13/22 Range/Units 19:57 Urine Color Yellow Urine Appearance Cloudy A (Clear) Urine pH >= 9.0 H (4.5-7.5) Ur Specific [place] 1.010 (1.000-1.030) Urine Protein Trace H (Negative) Urine Glucose (UA) Negative (Negative) Diagnostic Findings Chest X-Ray 08/13/22 18:14 XR chest 1V portable HISTORY: illness COMPARISON: Chest CTA 07/31/2022. FINDINGS: The lungs are clear. Cardiac silhouette is normal in size. No pleural effusions. No pneumothorax. IMPRESSION: No acute process. ACT 112: Negative or not required by law. Electronically signed by: Rylan Archuleta M.D. 08/13/2022 7:50 PM Abdomen/Pelvis CT 08/13/22 20:[address] WITH IV CONTRAST CT DOSE: 867.05 mGy.cm HISTORY: Acute generalized abdominal pain with fever diffuse abdominal pain, fever TECHNIQUE: Multiaxial CT images of the abdomen and pelvis were performed following the IV administration of 85 cc of Optiray, A dose lowering technique was utilized adhering to the principles of ALARA. COMPARISON STUDY: CT abdomen and pelvis July 31, 2022 FINDINGS: Atelectasis with scarring of the lung bases redemonstrated. The study is limited secondary to upper extremities positioning, and respiratory motion artifact. 11 mm hypodense focus of the spleen on image 57 series 6 is indeterminate however favored to be benign. Unremarkable pancreas, gallbladder, adrenal glands and liver. There are a few subcentimeter hepatic cysts again noted. Patency of the hepatic and portal veins. Unremarkable appearance of the kidneys. No hydronephrosis. Prostamegaly. Urinary bladder wall thickening with partial distention. Atherosclerosis of the aorta without aneurysm. No lymphadenopathy identified. No bowel obstruction. Decompressed transverse colon with wall thickening. Moderate colonic fecal retention. No CT evidence of acute appendicitis. Satis factory positioning of the gastrostomy tube. Unremarkable soft tissues. No acute fracture. Degenerative changes of the spine, pelvis and hips. IMPRESSION: 1. No bowel obstruction. 2. Wall thickening of the transverse colon is likely secondary to partial distention. A nonspecific colitis considered less likely. 3. Stable positioning of the gastrostomy tube. 4. Additional findings as above. ACT 112: Negative or not required by law. The above report was generated using voice recognition software. It may contain grammatical, syntax or spelling errors. Electronically signed by: Yehuda Luna M.D. 08/14/2022 8:[address] 08/13/22 20:07 CT head/brain wo con CLINICAL HISTORY: confusion Technique: Contiguous axial CT images of the head were acquired from the base of the skull to the vertex without intravenous contrast administration. Images were viewed in brain, subdural and bone windows. Automated dose lowering techniques and/or adjustment according to patient size were utilized for this exam. Comparison: Comparison is made to CT head 06/07/2021 Findings: Areas of decreased attenuation are present in the periventricular and subcortical white matter bilaterally consistent with small vessel ischemic disease. Generalized cerebral atrophy with commensurate enlargement of the ventricles, sulci, and cisterns is also present. There is no acute intracranial hemorrhage or evidence of acute territorial infarction. No shift of the midline structures, mass effect, or extra-axial abnormalities are shown. Atherosclerotic calcifications are present in the intracranial segments of the internal carotid arteries. Opacification of multiple ethmoid air cells noted. The orbits appear normal. There are no acute fractures of the calvaria or scalp swelling. Impression: Opacification of multiple ethmoid air cells noted. Otherwise chronic age-related changes as above. ACT 112: Negative or not required by law. Electronically signed by: Richi Graves M.D. 08/14/2022 7:28 AM (1) Fever Fever type: unspecified Qualified Code(s): R50.9 - Fever, unspecified (2) Hypertension Hypertension type: unspecified Qualified Code(s): I10 - Essential (primary) hypertension
--- NOTE | 2022-08-14 19:21 | 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 Note ---
Date of Service: August 14, 2022 Patient SBP 80s as per RN. AP hx orthostatic hypotension Patient currently on IV hydrocortisone in addition to fludrocortisone Home Rx Initiate patient home midodrine.
[2022-08-14] MEDS: MIDODRINE HCL 10 MG TAB PO SCH (19:58)
[2022-08-14] MEDS: ATORVASTATIN 40 MG TAB PEG SCH (21:32)
[2022-08-14] MEDS: FLUTICASONE PROPIONATE NA SPR 16 GM BTL NAE SCH (21:39)
[2022-08-15] MEDS: PROMETHAZINE HCL 12.5 MG in SODIUM CHLORIDE 0.9% 50 ML IV PRN (00:25)
[2022-08-15] MEDS: FORMOTEROL 20 MCG/2 ML VIAL INH SCH ×2 (05:56→17:55)
[2022-08-15] MEDS: PIPERACILLIN/TAZOBACTAM 3.375 GM in DEXTROSE 5% 100 ML IV SCH ×3 (06:03→22:31)
[2022-08-15] MEDS: LEVOTHYROXINE SODIUM 88 MCG TABLET PEG SCH (06:03)
[2022-08-15 07:06] LABS: Hematocrit (blood only) 34.8 % (42.0-52.0); Hemoglobin 11.7 g/dl (14.0-18.0); Mean Corpuscular Hemoglobin 32.5 pg (25.0-34.0); Mean Corpuscular Hgb Conc 33.6 g/dL (32.0-36.0); Mean Corpuscular Volume 96.7 fL (80.0-100.0); Mean Platelet Volume 12.4 fL (9.4-12.4); Platelet Count 119 K/uL (130-400); RDW Coefficient of Variation 13.9 % (11.5-14.5); RDW Standard Deviation 49.6 fL (36.4-46.3); White Blood Count 11.82 K/ul (4.8-10.8)
[2022-08-15 07:28] LABS: Basophils # (auto) 0.02 K/uL (0-0.2); Basophils % (auto) 0.2 %; Eosinophils # (auto) 0.01 K/uL (0-0.50); Eosinophils % (auto) 0.1 %; Immature Granulocytes # (auto) 0.05 K/uL (0.01-0.20); Immature Granulocytes % (auto) 0.4 %; Lymphocytes # (auto) 0.62 K/uL (1.2-3.4); Lymphocytes % (auto) 5.2 %; Monocytes # (auto) 0.42 K/uL (0.11-0.59); Monocytes % (auto) 3.6 %; Neutrophils % (auto) 90.5 %
[2022-08-15 07:39] LABS: Albumin Level 3.1 gm/dl (3.4-5.0); Bilirubin,Total 0.6 mg/dl (0.2-1.0); Calcium 8.4 mg/dl (8.5-10.1); Potassium 4.5 mmol/L (3.5-5.1)
[2022-08-15 08:15] LABS: Albumin Globulin Ratio 1.1 (0.9-2); BUN Creatinine Ratio 23.3 (10-20); Est GFR (African American) 98.3 ml/min; Est GFR (Non-African American) 84.8 ml/min; Globulin 2.7 gm/dl (2.5-4.0); Total Protein 5.8 gm/dl (6.0-8.3)
[2022-08-15] MEDS: PEPTAMEN 1.5 CAL 1,000 ML BAG PEG SCH (08:48)
[2022-08-15] MEDS: TUBE FEEDING WATER FLUSH GT SCH (08:49)
[2022-08-15] MEDS: HYDROCORTISONE SOD 50 MG in SYRINGE 0 ML IV SCH (08:52)
[2022-08-15] MEDS: MIDODRINE HCL 10 MG TAB PO SCH ×3 (08:52→17:25)
--- NOTE | 2022-08-15 08:52 | XRay Report ---
XR chest 1V portable CLINICAL HISTORY: ff up, r/o pneumonia COMPARISON STUDY: Chest CT July 31, 2022. Chest radiograph August 13, 2022. FINDINGS: No pneumothorax or pleural effusion is present. Linear left lung opacity represents atelect asis. No consolidation to suggest pneumonia. No evidence for pulmonary edema. Cardiomediastinal silho uette is normal. IMPRESSION: No acute cardiopulmonary findings. Left basilar opacity consistent with atelectasis. ACT 112: Negative or not required by law. Electronically signed by: Mike Sosa M.D. 08/15/2022 8:50 AM
[2022-08-15] MEDS: BRIMONIDINE TARTRATE 0.2% 5ML OPB SCH ×2 (08:53→20:30)
[2022-08-15] MEDS: ENOXAPARIN INJ 40 MG/0.4 ML SYR SQ SCH (08:53)
[2022-08-15] MEDS: CITALOPRAM 20 MG TAB PEG SCH (08:53)
[2022-08-15] MEDS: SENNOSIDES 8.8 MG/5 ML UDC PEG SCH (08:53)
[2022-08-15] MEDS: FLUDROCORTISONE ACETATE 0.1 MG TAB PO SCH (08:53)
[2022-08-15] MEDS: UMECLIDINIUM BROMIDE 62.5MCG/BLISTER 7 PUFFS/INHALER INH SCH (08:54)
[2022-08-15] MEDS: SODIUM CHLORIDE 0.9% 1000ML 1,000 ML IV SCH ×2 (10:15→22:32)
--- NOTE | 2022-08-15 12:02 | XRay Report ---
KUB HISTORY: Abdominal distention. r/o obstruction COMPARISON: KUB 06/05/2021. FINDINGS: The bowel gas pattern is unremarkable. There are no dilated loops of small bowel to suggest an obstruction. No renal calculi. No ureteral calculi. No pneumoperitoneum or pneumatosis. Moderate well-formed stool seen within the colon. A gastrostomy tube is again noted within the left upper rafia drant. IMPRESSION: 1. No evidence for bowel obstruction. 2. Moderate well-formed stool within the colon. ACT 112: Negative or not required by law. Electronically signed by: Rylan Archuleta M.D. 08/15/2022 12:00 PM
[2022-08-15] MEDS: TUBE FEEDING WATER FLUSH PEG SCH ×2 (13:20→20:43)
[2022-08-15] MEDS: PATIENT'S OWN ENTERAL FEEDING PEG SCH ×2 (13:20→20:43)
--- NOTE | 2022-08-15 14:37 | CT Scan Report ---
CT soft tissue neck wo con HISTORY: sensation of throat blockage TECHNIQUE: Multiaxial CT images of the neck were performed without contrast. Sagittal and coronal ref ormations were performed at the workstation by the radiologist. COMPARISON STUDY: CT neck 09/15/2012. FINDINGS: The visualized brain parenchyma and orbits are unremarkable. The pterygopalatine fossa are well-maintained. Postsurgical changes consistent with a prior right neck dissection with areas of sca rring and linear calcification. No evidence for recurrent/residual mass. No lymphadenopathy within th e neck. The major mucosal airways services are intact. The epiglottis and prevertebral soft tissues a re normal in thickness. Trace mucoid material within the mid trachea. Otherwise, the airway appears w idely patent. There is a single stable prominent submental lymph node which is likely benign given th e long-term stability. Fatty atrophy of the parotid and left submandibular gland. The right submandib ular gland may be surgically absent. The thyroid gland is atrophic. Biapical pleural-parenchymal scar like densities are noted. No acute fractures identified. There is a 7 mm lytic lesion within the C3 v ertebral body on axial image 187. This is new from the prior study. Partial opacification of the ethm oid air cells and mild mucosal thickening within the maxillary sinuses. The mastoid air cells are juanita ar. IMPRESSION: 1. The airway appears patent. 2. No masses or lymphadenopathy identified within the neck. 3. Prior right radical neck dissection again noted. 4. There is a new 7 mm lytic lesion within the C3 vertebral body. This is indeterminate. Metastatic d isease would be the diagnosis of exclusion. 5. Mild chronic sinus disease as described above. ACT 112: Negative or not required by law. Electronically signed by: Rylan Archuleta M.D. 08/15/2022 2:36 PM
--- NOTE | 2022-08-15 15:08 | Hospitalist Progress Note ---
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 SIRS criteria Unclear source Initially febrile at 38.7, labile BP with some hypotension currently 84/40, leukocytosis, 9.7 -> 14 overnight with elevated neutrophils and monocytes on differential Possible viral illness but no clear source -urine clear, COVID, flu A/B and RSV negative, and Lyme serology negative, CT abdomen pelvis normal with possible nonspecific colitis chest x-ray clear Given dose of cefepime in ED but with increased leukocytosis, started on empiric Zosyn for now. Follow blood cultures Added Anaplasma and peripheral smear due to malaise, transaminitis noted but peripheral smear without evidence of inclusion bodies. Anaplasma DNA pending Clinically improving with fluids, IV Zosyn and hydrocortisone at cover for possible stress response 08/15 Afebrile, leukocytosis improving Clinically improving overall Blood cultures: Negative so far Continue IV Zosyn Start to taper hydrocortisone Continue usual Florinef and midodrine Hx tonsillar cancer status post chemoradiation/neck dissection CT neck without contrast ordered as patient was having some discomfort over his throat: 1. The airway appears patent. 2. No masses or lymphadenopathy identified within the neck. 3. Prior right radical neck dissection again noted. 4. There is a new 7 mm lytic lesion within the C3 vertebral body. This is indeterminate. Metastatic disease would be the diagnosis of exclusion. 5. Mild chronic sinus disease as described above. Will need to follow-up as an outpatient with his oncologist/ENT in 2 to 3 weeks COPD Stable. Saturating at 97% on 2 L nasal cannula. Continue home inhalers Orthostatic hypotension on fludrocortisone Labile blood pressure noted by with SBP ranging from 70-200 at home. Follows with [facility] cardiology. Continue fludrocortisone and midodrine PEG tube status KUB: Moderate fecal contents noted Continue senna daily Constipation PRN Miralax, had large bowel movement today Hypothyroidism Continue levothyroxine DVT Ppx: SQ lovenox Code status: FULL Dispo: Admitted to med/surg Patient seen in collaboration with Dr. Rico. Please see addendum. A total of 60 minutes were spent with greater than 50% of that time face to face with the patient, personally reviewing all current laboratories, imaging studies, past medication reconciliation, outpatient chart review, and discussion with specialists to collaborate care for the patient with attending and utilization of translation services. Please see attending documentation for corrections and/or additions. Admission and Anticipated Discharge Date Admission Date: August 14, 2022 Subjective Follow-up for sepsis, sinusitis, etc. Seen with patient's at the bedside visiting Patient is a more awake and alert today, states he feels better overall Still having some sinus congestion, nasal drainage but improving overall No fevers or chills Had some nausea and episode of vomiting overnight, no abdominal pain today, had a good bowel movement yesterday No shortness of breath, cough, palpitations, dizziness, no other symptom Review of Systems Review of Systems: all noted and negative except for above Physical Exam Physical Exam: General- oriented x 3, not in distress, speaks in sentences with no effort or accessory muscle use Eyes- anicteric Neck- no JVD Lungs- clear BS bilaterally, no rales/wheezes Heart- normal rate, regular rhythm; no murmurs Abdomen- normal bowel sounds, nondistended, soft, nontender PEG tube in place-no signs of infection Extremities- no pretibial edema, no calf tenderness Neuro- alert, oriented x 3; no gross focal neurologic deficits Skin- warm & dry Results & Data Results & Data ([facility]) Vital Signs (Past 12 Hours) Vital Signs Temp Pulse Pulse Resp BP BP Pulse Ox 08/15/22 08:00 08/15/22 11:41 56 L 104/51 L 08/15/22 07:26 36.6 C 53 L 16 120/57 L 97 08/15/22 05:56 70 18 97 O2 Del Method O2 Flow Rate 08/15/22 08:00 Room Air 08/15/22 11:41 08/15/22 07:26 Room Air 08/15/22 05:56 Nasal Cannula 4 (1) Fever Fever type: unspecified Qualified Code(s): R50.9 - Fever, unspecified (2) Hypertension Hypertension type: unspecified Qualified Code(s): I10 - Essential (primary) hypertension
[2022-08-15] MEDS: HYDROCORTISONE SOD 25 MG in SYRINGE 0 ML IV SCH ×2 (16:10→22:31)
[2022-08-15] MEDS: FLUTICASONE PROPIONATE NA SPR 16 GM BTL NAE SCH (20:31)
[2022-08-15] MEDS: ATORVASTATIN 40 MG TAB PEG SCH (20:31)
[2022-08-15] MEDS: LATANOPROST 0.005% OP SOLN 2.5 ML BTL OPB SCH (20:31)
[2022-08-16] MEDS: PIPERACILLIN/TAZOBACTAM 3.375 GM in DEXTROSE 5% 100 ML IV SCH (06:13)
[2022-08-16] MEDS: LEVOTHYROXINE SODIUM 88 MCG TABLET PEG SCH (06:13)
[2022-08-16] MEDS: FORMOTEROL 20 MCG/2 ML VIAL INH SCH ×2 (06:53→20:23)
[2022-08-16] MEDS: HYDROCORTISONE SOD 25 MG in SYRINGE 0 ML IV SCH ×2 (07:33→19:58)
[2022-08-16] MEDS: TUBE FEEDING WATER FLUSH PEG SCH ×3 (07:33→22:37)
[2022-08-16] MEDS: PATIENT'S OWN ENTERAL FEEDING PEG SCH ×3 (07:33→22:37)
[2022-08-16] MEDS: FLUDROCORTISONE ACETATE 0.1 MG TAB PO SCH (07:35)
[2022-08-16] MEDS: CITALOPRAM 20 MG TAB PEG SCH (07:35)
[2022-08-16] MEDS: SENNOSIDES 8.8 MG/5 ML UDC PEG SCH (07:35)
[2022-08-16] MEDS: MIDODRINE HCL 10 MG TAB PO SCH ×3 (07:35→17:07)
[2022-08-16] MEDS: BRIMONIDINE TARTRATE 0.2% 5ML OPB SCH ×2 (07:36→20:00)
[2022-08-16] MEDS: UMECLIDINIUM BROMIDE 62.5MCG/BLISTER 7 PUFFS/INHALER INH SCH (07:36)
[2022-08-16] MEDS: ENOXAPARIN INJ 40 MG/0.4 ML SYR SQ SCH (07:36)
[2022-08-16 08:42] LABS: Basophils # (auto) 0.04 K/uL (0-0.2); Basophils % (auto) 0.3 %; Eosinophils # (auto) 0.07 K/uL (0-0.50); Eosinophils % (auto) 0.6 %; Hemoglobin 11.6 g/dl (14.0-18.0); Immature Granulocytes # (auto) 0.02 K/uL (0.01-0.20); Immature Granulocytes % (auto) 0.2 %; Lymphocytes % (auto) 6.6 %; Mean Corpuscular Hemoglobin 32.2 pg (25.0-34.0); Mean Corpuscular Hgb Conc 32.2 g/dL (32.0-36.0); Mean Platelet Volume 12.7 fL (9.4-12.4); Monocytes # (auto) 0.76 K/uL (0.11-0.59); Monocytes % (auto) 6.3 %; Neutrophils # (auto) 10.44 K/uL (1.40-6.50); Platelet Count 115 K/uL (130-400); RDW Coefficient of Variation 14.2 % (11.5-14.5); RDW Standard Deviation 51.9 fL (36.4-46.3); White Blood Count 12.13 K/ul (4.8-10.8)
[2022-08-16] MEDS ORDERED: LACTULOSE SYRUP 30 GM/45 ML UDP PO STA (11:19)
[2022-08-16 14:58] LABS: Calcium 7.7 mg/dl (8.5-10.1); Potassium 3.3 mmol/L (3.5-5.1)
[2022-08-16 15:03] LABS: BUN Creatinine Ratio 26.9 (10-20); Creatinine Clr Calc Pharmacy 87.2 ml/min; Est GFR (African American) 102.3 ml/min; Est GFR (Non-African American) 88.3 ml/min
--- NOTE | 2022-08-16 16:09 | Hospitalist Progress Note ---
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 SIRS criteria Unclear source Initially febrile at 38.7, labile BP with some hypotension currently 84/40, leukocytosis, 9.7 -> 14 overnight with elevated neutrophils and monocytes on differential Possible viral illness but no clear source -urine clear, COVID, flu A/B and RSV negative, and Lyme serology negative, CT abdomen pelvis normal with possible nonspecific colitis chest x-ray clear Given dose of cefepime in ED but with increased leukocytosis, started on empiric Zosyn for now. Follow blood cultures Added Anaplasma and peripheral smear due to malaise, transaminitis noted but peripheral smear without evidence of inclusion bodies. Anaplasma DNA pending Clinically improving with fluids, IV Zosyn and hydrocortisone at cover for possible stress response 08/16 Afebrile, leukocytosis improving Clinically improving overall Blood cultures: Negative so far Continue IV Zosyn Start to taper hydrocortisone 25 mcg every 12 hours Continue usual Florinef and midodrine Constipation with nausea Lactulose ordered KUB: No obstruction Change senna to MiraLAX daily Hx tonsillar cancer status post chemoradiation/neck dissection CT neck without contrast ordered as patient was having some discomfort over his throat: 1. The airway appears patent. 2. No masses or lymphadenopathy identified within the neck. 3. Prior right radical neck dissection again noted. 4. There is a new 7 mm lytic lesion within the C3 vertebral body. This is indeterminate. Metastatic disease would be the diagnosis of exclusion. 5. Mild chronic sinus disease as described above. Will need to follow-up as an outpatient with his oncologist/ENT in 2 to 3 weeks COPD Stable. Saturating at 97% on 2 L nasal cannula. Continue home inhalers Orthostatic hypotension on fludrocortisone Labile blood pressure noted by with SBP ranging from 70-200 at home. Follows with [facility] cardiology. Continue fludrocortisone and midodrine PEG tube status KUB: Moderate fecal contents noted Management per above Hypothyroidism Continue levothyroxine DVT Ppx: SQ lovenox Code status: FULL Dispo: Possible discharge to home tomorrow Admission and Anticipated Discharge Date Admission Date: August 14, 2022 Subjective Follow-up for sepsis, acute sinusitis, etc. Seen sitting up in bed comfortable, not in distress Had nausea in this morning No BM since yesterday Had mild frontal headache, nasal discharge/congestion improving Shortness of breath or cough Had some chills this morning No other symptoms Review of Systems Review of Systems: all noted and negative except for above Physical Exam Physical Exam: General- oriented x 3, not in distress, speaks in sentences with no effort or accessory muscle use Eyes- anicteric Neck- no JVD Lungs- clear BS SBL Heart- normal rate, regular rhythm; no murmurs Abdomen- normal bowel sounds, nondistended, soft, no tenderness PEG tube in place Extremities- no pretibial edema, no calf tenderness Neuro- alert, oriented x 3; no gross focal neurologic deficits Skin- warm & dry Results & Data Results & Data ([facility]) Vital Signs (Past 12 Hours) Vital Signs Temp Pulse Pulse Resp BP Pulse Ox O2 Del Method 08/16/22 15:32 36.9 C 61 16 110/61 94 Room Air 08/16/22 12:24 37.2 C 55 L 16 111/53 L 95 Room Air 08/16/22 11:09 37.4 C 64 18 96/55 L 94 Room Air 08/16/22 07:30 Room Air 08/16/22 07:16 37.0 C 65 16 103/58 L 93 Room Air 08/16/22 06:55 62 18 94 Room Air all noted and reviewed including below (1) Fever Fever type: unspecified Qualified Code(s): R50.9 - Fever, unspecified (2) Hypertension Hypertension type: unspecified Qualified Code(s): I10 - Essential (primary) hypertension
[2022-08-16] MEDS ORDERED: POTASSIUM CHLORIDE 20 MEQ/15 ML UDC PO ONE (16:25)
[2022-08-16] MEDS: AMPICILLIN/SULBACTAM SOD 3,000 MG in 0.9 % SODIUM CHLORIDE 100 ML IV SCH ×2 (17:19→22:37)
[2022-08-16] MEDS: FLUTICASONE PROPIONATE NA SPR 16 GM BTL NAE SCH (20:00)
[2022-08-16] MEDS: LATANOPROST 0.005% OP SOLN 2.5 ML BTL OPB SCH (20:00)
[2022-08-16] MEDS: ATORVASTATIN 40 MG TAB PEG SCH (20:01)
[2022-08-16] MEDS ORDERED: ACETAMINOPHEN 1,000 MG/100 ML VIAL IV STA (23:33)
--- NOTE | 2022-08-16 23:39 | 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 Note ---
Date of Service: August 16, 2022
[2022-08-17] MEDS: AMPICILLIN/SULBACTAM SOD 3,000 MG in 0.9 % SODIUM CHLORIDE 100 ML IV SCH (05:46)
[2022-08-17] MEDS: LEVOTHYROXINE SODIUM 88 MCG TABLET PEG SCH (05:46)
[2022-08-17] MEDS: FORMOTEROL 20 MCG/2 ML VIAL INH SCH ×2 (07:32→19:26)
[2022-08-17] MEDS: MIDODRINE HCL 10 MG TAB PO SCH ×3 (08:08→18:01)
[2022-08-17] MEDS: FLUDROCORTISONE ACETATE 0.1 MG TAB PO SCH (08:08)
[2022-08-17] MEDS: CITALOPRAM 20 MG TAB PEG SCH (08:08)
[2022-08-17] MEDS: ENOXAPARIN INJ 40 MG/0.4 ML SYR SQ SCH (08:09)
[2022-08-17] MEDS: HYDROCORTISONE SOD 25 MG in SYRINGE 0 ML IV SCH (08:09)
[2022-08-17] MEDS: BRIMONIDINE TARTRATE 0.2% 5ML OPB SCH ×2 (08:10→21:19)
[2022-08-17] MEDS: PATIENT'S OWN ENTERAL FEEDING PEG SCH ×3 (08:10→18:02)
[2022-08-17] MEDS: TUBE FEEDING WATER FLUSH PEG SCH ×3 (08:10→18:02)
[2022-08-17] MEDS: UMECLIDINIUM BROMIDE 62.5MCG/BLISTER 7 PUFFS/INHALER INH SCH (08:11)
[2022-08-17] MEDS: POLYETHYLENE (MIRALAX) 17 GM PACK PO SCH (08:13)
--- NOTE | 2022-08-17 08:31 | XRay Report ---
XR chest 1V portable HISTORY: cough COMPARISON: Chest 08/15/2022. FINDINGS: No pneumothorax. No pleural effusions. The heart is normal in size. There is mild diffuse i nterstitial thickening, unchanged. Stable linear scarlike density within the left midlung zone. There is a hazy airspace opacity within the right mid to lower lung zone. IMPRESSION: There is a new hazy airspace opacity within the right mid to lower lung zone which favors a developin g pneumonia. Continued follow-up recommended. ACT 112: Negative or not required by law. Electronically signed by: Rylan Archuleta M.D. 08/17/2022 8:30 AM
[2022-08-17 08:46] LABS: Basophils # (auto) 0.02 K/uL (0-0.2); Basophils % (auto) 0.3 %; Eosinophils # (auto) 0.14 K/uL (0-0.50); Eosinophils % (auto) 1.8 %; Hematocrit (blood only) 34.4 % (42.0-52.0); Hemoglobin 11.1 g/dl (14.0-18.0); Immature Granulocytes # (auto) 0.02 K/uL (0.01-0.20); Immature Granulocytes % (auto) 0.3 %; Lymphocytes # (auto) 0.97 K/uL (1.2-3.4); Lymphocytes % (auto) 12.7 %; Mean Corpuscular Hgb Conc 32.3 g/dL (32.0-36.0); Mean Corpuscular Volume 99.1 fL (80.0-100.0); Mean Platelet Volume 12.4 fL (9.4-12.4); Monocytes # (auto) 0.42 K/uL (0.11-0.59); Monocytes % (auto) 5.5 %; Neutrophils # (auto) 6.05 K/uL (1.40-6.50); Neutrophils % (auto) 79.4 %; Platelet Count 109 K/uL (130-400); RDW Coefficient of Variation 14.3 % (11.5-14.5); RDW Standard Deviation 52.5 fL (36.4-46.3); Red Blood Count 3.47 M/uL (4.70-6.10); White Blood Count 7.62 K/ul (4.8-10.8)
[2022-08-17 09:10] LABS: Potassium 3.5 mmol/L (3.5-5.1)
[2022-08-17 09:16] LABS: BUN Creatinine Ratio 22.5 (10-20); Creatinine Clr Calc Pharmacy 95.7 ml/min; Est GFR (African American) 106.4 ml/min; Est GFR (Non-African American) 91.8 ml/min
[2022-08-17] MEDS ORDERED: CEFEPIME 2,000 MG in SYRINGE 0 ML IV SCH (10:30)
[2022-08-17] MEDS ORDERED: DOXYCYCLINE HYCLATE 100 MG in DEXTROSE 5% 100 ML IV SCH (10:30)
--- NOTE | 2022-08-17 13:07 | CT Scan Report ---
CT OF THE ABDOMEN AND PELVIS WITHOUT CONTRAST CLINICAL HISTORY: Nausea and vomiting. COMPARISON STUDY: CT of the abdomen and pelvis August 13, 2022 and KUB August 15, 2022. TECHNIQUE: Axial images of the abdomen and pelvis were obtained without IV contrast. Images were revi ewed in the axial, sagittal, and coronal planes. Automated exposure control was utilized for the sowmya dy. A dose lowering technique was utilized adhering to the principles of ALARA. FINDINGS: There is been interval development of multifocal alveolar opacities within the lower lungs since CT of August 13, 2022. There is mild associated interlobular septal thickening. There are trac e bilateral pleural effusions. Evaluation of the abdomen and pelvis is suboptimal on this unenhanced exam. No pneumatosis, free air or portal venous gas is present. Gastrostomy tube is in place. Subcent imeter segment 6 hepatic cyst is noted. There is no biliary or pancreatic ductal dilatation. Spleen, adrenal glands, kidneys and pancreas are unremarkable. There is no peripancreatic stranding. There is no hydronephrosis. The cecum and ascending colon are mildly distended but there is no evidence for a bowel obstruction. Colonic diverticulosis is noted. No evidence for acute diverticulitis. Trace flui d within the pelvis is noted. Bladder wall thickening and a be due to underdistention. There is no ly mphadenopathy. No fluid collection to suggest abscess. There are no acute fractures. IMPRESSION: 1. No evidence for a bowel obstruction. Mildly distended cecum. Fluid-filled ascending colon. 2. Interval development of multifocal airspace opacities suggestive of pneumonia or aspiration pneumo nitis. Trace bilateral pleural effusions. 3. Gastrostomy tube in place. ACT 112: Negative or not required by law. Electronically signed by: Mike Sosa M.D. 08/17/2022 1:05 PM
--- NOTE | 2022-08-17 13:25 | CT Scan Report ---
CT chest diagnostic wo con CLINICAL HISTORY: 77 years-old Male with possible aspiration pneumonia. Acute shortness of breath wi th possible aspiration pneumonia TECHNIQUE: Multiaxial CT images of the chest were performed without contrast. A dose lowering techni que was utilized adhering to the principles of ALARA. COMPARISON: CT abdomen and pelvis of same day, CT chest 07/31/2022 FINDINGS: Heart is normal in size. Decreased attenuation of the cardiac blood pool suggestive of anemia. No per icardial effusion. No thoracic aortic aneurysm identified. Mild coronary artery calcifications. Unrem arkable thyroid. Mediastinal lymphadenopathy redemonstrated with subcarinal lymph nodes measuring up to approximately 1.3 cm, stable from prior. Interval development of small pleural effusions. Mild bronchial wall thickening. Mild biapical pleura l-parenchymal scarring with mild tracheobronchial secretions. 5 mm nodule of the right lower lobe is unchanged on image 196. Previously noted 7 mm groundglass nodular density of the lingula is obscured by adjacent consolidation. Interval development of patchy groundglass and consolidative opacities, mo st pronounced within the right greater than left lung bases. Mild intralobular septal thickening. No acute process identified within the imaged upper abdomen. Unremarkable soft tissues. No acute frac ture identified. IMPRESSION: 1. Bronchial wall thickening with interval development of patchy nodular consolidative and groundglas s opacities, most pronounced within the right greater than left lung bases. Findings are suggestive o f pneumonia versus aspiration pneumonitis. 2. Small pleural effusions. 3. Stable mediastinal and hilar lymphadenopathy. ACT 112: Negative or not required by law. Electronically signed by: Yehuda Luna M.D. 08/17/2022 1:24 PM
--- NOTE | 2022-08-17 16:39 | Hospitalist Progress Note ---
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 SIRS criteria Unclear source Initially febrile at 38.7, labile BP with some hypotension currently 84/40, leukocytosis, 9.7 -> 14 overnight with elevated neutrophils and monocytes on differential Possible viral illness but no clear source -urine clear, COVID, flu A/B and RSV negative, and Lyme serology negative, CT abdomen pelvis normal with possible nonspecific colitis chest x-ray clear Given dose of cefepime in ED but with increased leukocytosis, started on empiric Zosyn for now. Follow blood cultures Added Anaplasma and peripheral smear due to malaise, transaminitis noted but peripheral smear without evidence of inclusion bodies. Anaplasma DNA pending Clinically improving with fluids, IV Zosyn and hydrocortisone at cover for possible stress response 08/17 Positive fever episode yesterday Repeat chest x-ray: Positive aspiration pneumonia right lower lobe CT chest: New infiltrates on the right lower lobe CT abdomen/pelvis: No obstruction Initial blood cultures: Negative Repeat blood cultures: Pending Aspiration pneumonia likely secondary to vomiting, secondary to constipation Acute bacterial sinusitis, possible sepsis Continue IV Zosyn but increase the dose to 4.5 mg every 8 hours Start to taper hydrocortisone 25 mcg daily Continue usual Florinef and midodrine Constipation resolved Constipation with nausea Lactulose ordered KUB: No obstruction Change senna to MiraLAX daily -Resolved Hx tonsillar cancer status post chemoradiation/neck dissection CT neck without contrast ordered as patient was having some discomfort over his throat: 1. The airway appears patent. 2. No masses or lymphadenopathy identified within the neck. 3. Prior right radical neck dissection again noted. 4. There is a new 7 mm lytic lesion within the C3 vertebral body. This is indeterminate. Metastatic disease would be the diagnosis of exclusion. 5. Mild chronic sinus disease as described above. Will need to follow-up as an outpatient with his oncologist/ENT in 2 to 3 weeks COPD Stable. Saturating at 97% on 2 L nasal cannula. Continue home inhalers Orthostatic hypotension on fludrocortisone Labile blood pressure noted by with SBP ranging from 70-200 at home. [facility]s with [facility] cardiology. Continue fludrocortisone and midodrine PEG tube status KUB: Moderate fecal contents noted Management per above Hypothyroidism Continue levothyroxine DVT Ppx: SQ lovenox Code status: FULL Dispo: Continue to monitor closely plan of care discussed with patient and his at bedside in detail and at length all questions answered they are understanding, agreeable, comfortable with the plan of care Admission and Anticipated Discharge Date Admission Date: August 14, 2022 Subjective Follow-up for sepsis, bacterial sinusitis, etc. Had a febrile episode overnight, with vomiting Repeat chest x-ray: Showing aspiration pneumonia right mid to lower lobe Seen sitting up in bed, awake and alert, not in distress, comfortable Patient's at the bedside States he feels better this afternoon, no nausea Had large bowel movement yesterday Denies shortness of breath, cough, headache, nasal discharge No other symptoms Review of Systems Review of Systems: all noted and negative except for above Physical Exam Physical Exam: General- oriented x 3, not in distress, speaks in sentences with no effort or accessory muscle use Eyes- anicteric Neck- no JVD Lungs-positive mild rales at the right lower base, clear on the left No wheezing Heart- normal rate, regular rhythm; no murmurs Abdomen- normal bowel sounds, nondistended, soft, nontender PEG tube in place Extremities- no pretibial edema, no calf tenderness Neuro- alert, oriented x 3; no gross focal neurologic deficits Skin- warm & dry Results & Data Results & Data ([facility]) Vital Signs (Past 12 Hours) Vital Signs Temp Pulse Resp BP Pulse Ox O2 Del Method 08/17/22 15:45 37.0 C 67 18 116/51 L 96 Room Air 08/17/22 07:45 Room Air 08/17/22 07:55 37.2 C 58 L 18 125/67 96 Room Air 08/17/22 07:33 71 18 96 Room Air (1) Fever Fever type: unspecified Qualified Code(s): R50.9 - Fever, unspecified (2) Hypertension Hypertension type: unspecified Qualified Code(s): I10 - Essential (primary) hypertension
[2022-08-17] MEDS ORDERED: PIPERACILLIN/TAZOBACTAM 3.375 GM (over 30 mins) IV ONE (16:45)
[2022-08-17] MEDS: ACETAMINOPHEN 1,000 MG/100 ML VIAL IV PRN (20:40)
[2022-08-17] MEDS: ATORVASTATIN 40 MG TAB PEG SCH (21:19)
[2022-08-17] MEDS: FLUTICASONE PROPIONATE NA SPR 16 GM BTL NAE SCH (21:19)
[2022-08-17] MEDS: LATANOPROST 0.005% OP SOLN 2.5 ML BTL OPB SCH (21:19)
[2022-08-17] MEDS: PIPERACILLIN/TAZOBACTAM 4.5 GM in DEXTROSE 5% 100 ML IV SCH (21:24)
[2022-08-18] MEDS: PIPERACILLIN/TAZOBACTAM 4.5 GM in DEXTROSE 5% 100 ML IV SCH ×3 (06:16→22:06)
[2022-08-18] MEDS: LEVOTHYROXINE SODIUM 88 MCG TABLET PEG SCH (06:17)
[2022-08-18] MEDS: ACETAMINOPHEN 1,000 MG/100 ML VIAL IV PRN ×2 (06:29→19:39)
[2022-08-18] MEDS: FORMOTEROL 20 MCG/2 ML VIAL INH SCH ×2 (07:20→19:21)
[2022-08-18] MEDS: TUBE FEEDING WATER FLUSH PEG SCH ×3 (07:30→17:18)
[2022-08-18] MEDS: PATIENT'S OWN ENTERAL FEEDING PEG SCH ×3 (07:30→17:17)
[2022-08-18] MEDS: MIDODRINE HCL 10 MG TAB PO SCH ×3 (09:11→17:17)
[2022-08-18] MEDS: FLUDROCORTISONE ACETATE 0.1 MG TAB PO SCH (09:11)
[2022-08-18] MEDS: CITALOPRAM 20 MG TAB PEG SCH (09:11)
[2022-08-18] MEDS: ENOXAPARIN INJ 40 MG/0.4 ML SYR SQ SCH (09:13)
[2022-08-18] MEDS: UMECLIDINIUM BROMIDE 62.5MCG/BLISTER 7 PUFFS/INHALER INH SCH (09:14)
[2022-08-18] MEDS: BRIMONIDINE TARTRATE 0.2% 5ML OPB SCH ×2 (09:14→22:04)
[2022-08-18] MEDS: POLYETHYLENE (MIRALAX) 17 GM PACK PO SCH (09:15)
--- NOTE | 2022-08-18 18:47 | Hospitalist Progress Note ---
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 SIRS criteria Possible sepsis secondary to acute bacterial sinusitis Initially febrile at 38.7, labile BP with some hypotension currently 84/40, leukocytosis, 9.7 -> 14 overnight with elevated neutrophils and monocytes on differential Possible viral illness but no clear source -urine clear, COVID, flu A/B and RSV negative, and Lyme serology negative, CT abdomen pelvis normal with possible nonspecific colitis chest x-ray clear Given dose of cefepime in ED but with increased leukocytosis, started on empiric Zosyn for now. Follow blood cultures Added Anaplasma and peripheral smear due to malaise, transaminitis noted but peripheral smear without evidence of inclusion bodies. Anaplasma DNA pending Improving with IV Zosyn, and stress dose hydrocortisone 08/17 Developed fever-was having nausea and vomiting from constipation, developed aspiration pneumonitis, right lower lobe Repeat chest x-ray: Positive aspiration pneumonia right lower lobe CT chest: New infiltrates on the right lower lobe CT abdomen/pelvis: No obstruction Initial blood cultures: Negative Repeat blood cultures: Negative so far Continue IV Zosyn but increased the dose to 4.5 mg every 8 hours Completed hydrocortisone taper Continue usual Florinef and midodrine Constipation resolved Plan for discharge tomorrow if afebrile x24 hours Continue with Augmentin twice daily via PEG tube x4 days to complete 10-day course total of antibiotics Constipation with nausea Lactulose ordered KUB: No obstruction Change senna to MiraLAX daily -Resolved -Will need MiraLAX via PEG tube daily and as needed lactulose upon discharge Hx tonsillar cancer status post chemoradiation/neck dissection CT neck without contrast ordered as patient was having some discomfort over his throat: 1. The airway appears patent. 2. No masses or lymphadenopathy identified within the neck. 3. Prior right radical neck dissection again noted. 4. There is a new 7 mm lytic lesion within the C3 vertebral body. This is indeterminate. Metastatic disease would be the diagnosis of exclusion. 5. Mild chronic sinus disease as described above. Will need to follow-up as an outpatient with his oncologist/ENT next month COPD Stable. Saturating at 97% on 2 L nasal cannula. Continue home inhalers Orthostatic hypotension on fludrocortisone Labile blood pressure noted by with SBP ranging from 70-200 at home. [facility]s with [facility] cardiology. Continue fludrocortisone and midodrine BP stable overall PEG tube status KUB: Moderate fecal contents noted Constipation resolved Management per above Hypothyroidism Continue levothyroxine DVT Ppx: SQ lovenox Code status: FULL Dispo: Possible discharge to home tomorrow if afebrile x24 hours plan of care discussed with patient and his at bedside in detail and at length all questions answered they are understanding, agreeable, comfortable with the plan of care Admission and Anticipated Discharge Date Admission Date: August 14, 2022 Subjective Follow-up for sepsis, possible acute bacterial sinusitis, etc. Seen resting in bed, sitting up, not in distress at the bedside States he feels much better overall Ambulating in the hallways with no problems Nausea, vomiting resolved Breathing is okay, intermittent dry cough Intermittent mild frontal headache, no postnasal drainage No fevers or chills No other symptoms Review of Systems Review of Systems: all noted and negative except for above Physical Exam Physical Exam: General- oriented x 3, not in distress, speaks in sentences wit h no effort or accessory muscle use Eyes- anicteric Neck- no JVD Lungs-mild rales at the right lower base Clear on the left Heart- normal rate, regular rhythm; no murmurs Abdomen- normal bowel sounds, nondistended, soft, nontender PEG tube in place-no bleeding Extremities- no pretibial edema, no calf tenderness Neuro- alert, oriented x 3; no gross focal neurologic deficits Skin- warm & dry Results & Data Results & Data ([facility]) Vital Signs (Past 12 Hours) Vital Signs Temp Pulse Pulse Resp BP BP Pulse Ox 08/18/22 17:16 160/53 H 08/18/22 15:50 36.2 C L 65 17 152/53 H 100 08/18/22 15:34 37.0 C 68 16 113/64 95 08/18/22 12:40 60 127/64 08/18/22 07:33 37.4 C 61 16 117/62 95 08/18/22 07:21 63 16 96 O2 Del Method 08/18/22 17:16 08/18/22 15:50 Room Air 08/18/22 15:34 Room Air 08/18/22 12:40 08/18/22 07:33 Room Air 08/18/22 07:21 Room Air all noted and reviewed including below (1) Fever Fever type: unspecified Qualified Code(s): R50.9 - Fever, unspecified (2) Hypertension Hypertension type: unspecified Qualified Code(s): I10 - Essential (primary) hypertension
[2022-08-18] MEDS: FLUTICASONE PROPIONATE NA SPR 16 GM BTL NAE SCH (22:03)
[2022-08-18] MEDS: ATORVASTATIN 40 MG TAB PEG SCH (22:03)
[2022-08-18] MEDS: LATANOPROST 0.005% OP SOLN 2.5 ML BTL OPB SCH (22:04)
[2022-08-19] MEDS: LEVOTHYROXINE SODIUM 88 MCG TABLET PEG SCH ×2 (05:33→05:34)
[2022-08-19] MEDS: PIPERACILLIN/TAZOBACTAM 4.5 GM in DEXTROSE 5% 100 ML IV SCH (06:17)
[2022-08-19] MEDS: FORMOTEROL 20 MCG/2 ML VIAL INH SCH (07:04)
[2022-08-19] MEDS: PATIENT'S OWN ENTERAL FEEDING PEG SCH ×2 (08:32→12:34)
[2022-08-19] MEDS: TUBE FEEDING WATER FLUSH PEG SCH ×2 (08:33→12:34)
[2022-08-19] MEDS: FLUDROCORTISONE ACETATE 0.1 MG TAB PO SCH (08:35)
[2022-08-19] MEDS: MIDODRINE HCL 10 MG TAB PO SCH ×2 (08:35→12:34)
[2022-08-19] MEDS: CITALOPRAM 20 MG TAB PEG SCH (08:37)
[2022-08-19] MEDS: ENOXAPARIN INJ 40 MG/0.4 ML SYR SQ SCH (08:38)
[2022-08-19] MEDS: UMECLIDINIUM BROMIDE 62.5MCG/BLISTER 7 PUFFS/INHALER INH SCH (08:38)
[2022-08-19] MEDS: POLYETHYLENE (MIRALAX) 17 GM PACK PO SCH (08:38)
[2022-08-19] MEDS: BRIMONIDINE TARTRATE 0.2% 5ML OPB SCH (08:39)
[2022-08-19] MEDS: ACETAMINOPHEN 1,000 MG/100 ML VIAL IV PRN (09:13)
--- NOTE | 2022-08-19 13:39 | Hospitalist Progress Note ---
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 SIRS criteria Possible sepsis secondary to aspiration pneumonia Bacterial sinusitis is a possibility Initially febrile at 38.7, labile BP with some hypotension currently 84/40, leukocytosis, 9.7 -> 14 overnight with elevated neutrophils and monocytes on differential Possible viral illness but no clear source -urine clear, COVID, flu A/B and RSV negative, and Lyme serology negative, CT abdomen pelvis normal with possible nonspecific colitis chest x-ray clear Given dose of cefepime in ED but with increased leukocytosis, started on empiric Zosyn for now. Follow blood cultures Added Anaplasma and peripheral smear due to malaise, transaminitis noted but peripheral smear without evidence of inclusion bodies. Anaplasma DNA pending Improving with IV Zosyn, and stress dose hydrocortisone 08/17 Developed fever-was having nausea and vomiting from constipation, developed aspiration pneumonitis, right lower lobe Repeat chest x-ray: Positive aspiration pneumonia right lower lobe CT chest: New infiltrates on the right lower lobe CT abdomen/pelvis: No obstruction Initial blood cultures: Negative Repeat blood cultures: Negative so far Clinically much better today without any fever and or chills No respiratory symptoms Should be discharged home on Augmentin 875 mg twice daily to finish a total of 10 days course Constipation with nausea Lactulose ordered KUB: No obstruction Change senna to MiraLAX daily -Resolved -Will need MiraLAX via PEG tube daily and as needed lactulose upon discharge Hx tonsillar cancer status post chemoradiation/neck dissection CT neck without contrast ordered as patient was having some discomfort over his throat: 1. The airway appears patent. 2. No masses or lymphadenopathy identified within the neck. 3. Prior right radical neck dissection again noted. 4. There is a new 7 mm lytic lesion within the C3 vertebral body. This is indeterminate. Metastatic disease would be the diagnosis of exclusion. 5. Mild chronic sinus disease as described above. Will need to follow-up as an outpatient with his oncologist/ENT next month COPD Stable. Saturating at 97% on 2 L nasal cannula. Continue home inhalers Clinically much better with her no wheezing and no shortness of breath Orthostatic hypotension on fludrocortisone Labile blood pressure noted by with SBP ranging from 70-200 at home. Follows with [facility] cardiology. Continue fludrocortisone and midodrine BP stable overall PEG tube status KUB: Moderate fecal contents noted Constipation resolved Management per above She will continue her usual PEG tube feeding as an outpatient Hypothyroidism Continue levothyroxine DVT Ppx: SQ lovenox Code status: FULL Dispo: Possible discharge to home tomorrow if afebrile x24 hours She will be discharged home this afternoon Admission and Anticipated Discharge Date Admission Date: August 14, 2022 Subjective 08/19/2022 The patient was seen and examined in medical floor He has pain doing much better and desperately wants to go home He denies any significant symptoms No fever and or chills, no pain, no nausea and or vomiting Review of Systems Review of Systems: All systems reviewed and are unremarkable except as noted below Physical Exam Physical Exam: Lying in bed comfortably Constitutional: + ill appearing and average body habitus Eyes: PERRL, conjunctivae normal, anicteric sclerae Neck: trachea midline, no thyromegaly Respiratory: no respiratory distress Auscultation: + diminished lung sounds and + crackles (Minimal crackles bibasally) Cardiovascular: Rate/Rhythm: regular rate and regular rhythm; not tachycardic Heart Sounds: normal S1 and normal S2; no murmur Extremities: no edema Gastrointestinal (Abdomen): Inspection/Auscultation: normal bowel sounds; abdomen not distended Percussion/Palpation: abdomen soft; abdomen nontender PEG tube in situ without any inflammation and/or infection Musculoskeletal: No acute arthritis involving any joint Neurologic: Alert, awake and oriented x3 Psychiatric: A+Ox3, euthymic affect Lymphatic: no cervical or axillary lymphadenopathy Results & Data Results & Data ([facility]) Vital Signs (Past 12 Hours) Vital Signs Temp Pulse Resp BP Pulse Ox O2 Del Method 08/19/22 12:33 127/61 08/19/22 12:01 64 110/66 08/19/22 10:03 108/61 08/19/22 08:33 170/78 H 08/19/22 08:28 37.5 C 65 16 112/50 L 94 Room Air 08/19/22 07:20 Room Air 08/19/22 07:05 70 16 92 Room Air Medications Administered Current Inpatient Medications Acetylcysteine (Acetylcysteine 20% Inhal Soln 4ml Dispensed By Resp.) 5 ml INH Q12R [facility] Stop: 09/13/22 06:59 Last Admin: 08/14/22 07:04 Dose: 5 ml Amoxicillin/Clavulanate Potassium (Amoxicillin/Clavulanate 875 Mg Tab) 1 tab PO BIDM [facility] Stop: 08/26/22 16:59 Atorvastatin Calcium (Atorvastatin 40 Mg Tab) 40 mg PEG HS [facility] Stop: 09/13/22 20:59 Last Admin: 08/18/22 22:03 Dose: 40 mg Brimonidine Tartrate (Brimonidine Tartrate 0.2% 5ml) 1 drops OPB BID [facility] Stop: 09/13/22 00:10 Last Admin: 08/19/22 08:39 Dose: 1 drops Citalopram Hydrobromide (Citalopram 20 Mg Tab) 20 mg PEG QAM [facility] Stop: 09/13/22 08:59 Last Admin: 08/19/22 08:37 Dose: 20 mg Enoxaparin Sodium (Enoxaparin Inj 40 Mg/0.4 Ml Syr) 40 mg SQ QAM [facility] Stop: 09/13/22 08:59 Last Admin: 08/19/22 08:38 Dose: 40 mg Fludrocortisone Acetate (Fludrocortisone Acetate 0.1 Mg Tab) 0.1 mg PO DAILY [facility] Stop: 09/13/22 08:59 Last Admin: 08/19/22 08:35 Dose: Not Given Fluticasone Propionate (Fluticasone Propionate Na Spr 16 Gm Btl) 2 sprays JONN HS [facility] Stop: 09/13/22 20:59 Last Admin: 08/18/22 22:03 Dose: 2 sprays Formoterol Fumarate (Formoterol 20 Mcg/2 Ml Vial) 20 mcg INH BIDR [facility] Stop: 09/13/22 06:59 Last Admin: 08/19/22 07:04 Dose: 20 mcg Promethazine HCl 12.5 mg/ (Sodium Chloride) 50.5 mls @ 202 mls/hr IV Q6H PRN PRN Reason: Nausea And Vomiting Stop: 09/13/22 00:19 Last Infusion: 08/15/22 00:42 Dose: Infused Acetaminophen (Ofirmev) 1,000 mg in 100 mls @ 400 mls/hr IV Q8H PRN PRN Reason: fever/pain Stop: 08/19/22 23:32 Last Infusion: 08/19/22 09:38 Dose: Infused Latanoprost (Latanoprost 0.005% Op Soln 2.5 Ml Btl) 1 drops OPB HS [facility] Stop: 09/13/22 00:10 Last Admin: 08/18/22 22:04 Dose: 1 drops Levothyroxine Sodium (Levothyroxine Sodium 88 Mcg Tablet) 88 mcg PEG DAILYBB [facility] Stop: 09/13/22 06:29 Last Admin: 08/19/22 05:34 Dose: 88 mcg Midodrine (Midodrine Hcl 10 Mg Tab) 10 mg PO TID@0800,1200,1700 [facility] Stop: 09/13/22 19:19 Last Admin: 08/19/22 12:34 Dose: Not Given Nutritional Formula (Patient's Own Enteral Feeding) 480 ml PEG TID@0700,1300,1800 [facility] Stop: 09/14/22 12:59 Last Admin: 08/19/22 12:34 Dose: 480 ml Polyethylene Glycol (Polyethylene (Miralax) 17 Gm Pack) 17 gm PO DAILY [facility] Stop: 09/16/22 08:59 Last Admin: 08/19/22 08:38 Dose: 17 gm Sodium Chloride (Sodium Chlor 7% 4 Ml Neb) 4 ml INH BIDR [facility] Stop: 09/13/22 06:59 Last Admin: 08/14/22 07:05 Dose: 4 ml Sterile Water (Tube Feeding Water Flush) 100 ml PEG 0700,1300,1800 GIR[facility] Stop: 09/14/22 12:59 Last Admin: 08/19/22 12:34 Dose: 100 ml Umeclidinium [place] (Umeclidinium [place] 62.5mcg/Blister 7 Puffs/Inhaler) 1 puffs INH DAILY [facility] Stop: 09/13/22 08:59 Last Admin: 08/19/22 08:38 Dose: 1 puffs (1) Fever Fever type: unspecified Qualified Code(s): R50.9 - Fever, unspecified (2) Hypertension Hypertension type: unspecified Qualified Code(s): I10 - Essential (primary) hypertension
[2022-08-19] MEDS ORDERED: AMOXICILLIN/CLAVULANATE 875 MG TAB PO SCH (17:00)
--- NOTE | 2022-08-20 07:18 | Discharge Summary ---
Date of Service August 19, 2022 Admission HPI Per Admitting Provider History obtained from patient, family, and records. Limited history from patient secondary to marked hearing impairment. Medical history is significant for tonsillar cancer status post chemoradiation/neck dissection, COPD, past tobacco abuse, orthostatic hypotension on fludrocortisone, known aspiration risk sp PEG tube placement, gastroparesis, hypothyroidism, glaucoma. Last confinement May 2022 for respiratory failure secondary to COVID-19, influenza, and aspiration pneumonia. Patient completed Decadron and remdesivir course. Patient not feeling well yesterday as per . Stuffy nose with dry cough symptoms. Some chills. No headache symptoms. Mild confusion as per . No chest pain, no SOB, No cough symptoms. Minimal abdominal discomfort from constipation requiring manual fecal disimpaction at home as per . Ticks at home without recollection of recent tick bites as per . Patient brought to the ER for evaluation. IV cefepime administered at the ER. MEDICAL HISTORY: As above. SURGERIES: He has had neck/reconstruction surgery, lymph node dissection, knee surgery, dental surgery. FAMILY HISTORY: Diabetes, heart disease, COPD PERSONAL AND SOCIAL HISTORY: Past tobacco abuse. 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 Admission Exam Per Admitting Provider Physical Exam: GENERAL: Comfortable, dysarthric (chronic), hard of hearing, pleasant, no respiratory distress SKIN: Normal color, warm HEENT: [place] palpebral conjunctivae, no ptosis, chronic facial asymmetry, dry buccal mucosa NECK : Supple, no tenderness CHEST : Decreased breath sounds, no tenderness HEART : RRR, no obvious murmurs ABDOMEN: some distention, PEG tube in place, nontender EXTREMITIES : no LE swelling, no LE tenderness, no other conspicuous deformities noted NEUROLOGIC : Coherent, chronic facial asymmetry, chronic dysarthria, hard of hearing, gait and stance not assessed Principal Diagnosis Aspiration pneumonia, acute sinusitis,, PEG tube status, history of tonsillar cancer status post surgery Discharge Exam Lying in bed comfortably Constitutional + ill appearing and average body habitus Eyes PERRL, conjunctivae normal, anicteric sclerae ENMT external ear and nose normal, oropharynx normal Neck trachea midline, no thyromegaly Respiratory no respiratory distress Auscultation: + diminished lung sounds and + crackles (Minimal crackles bibasally) Cardiovascular Rate/Rhythm: regular rate and regular rhythm; not tachycardic Heart Sounds: normal S1 and normal S2; no murmur Extremities: no edema Gastrointestinal (Abdomen) Inspection/Auscultation: normal bowel sounds; abdomen not distended Percussion/Palpation: abdomen soft; abdomen nontender Psychiatric A+Ox3, euthymic affect Lymphatic no cervical or axillary lymphadenopathy Discharge Data Allergies Allergy/AdvReac Type Severity Reaction Status Date / Time levofloxacin Allergy Intermediate rash all Verified 08/13/22 19:26 over body sulfamethoxazole Allergy Intermediate ITCHING Verified 08/13/22 19:26 trimethoprim Allergy Intermediate ITCHING Verified 08/13/22 19:26 terazosin Allergy Unknown DOES NOT Verified 08/13/22 19:26 KNOW Nitrate Analogues AdvReac Severe DROP IN BP Verified 08/13/22 19:26 sertraline AdvReac Intermediate NOSE BLEEDS Verified 08/13/22 19:26 Consultations 08/13/22 22:11 ED Decision to Admit Stat Ordered Studies 08/13/22 20:07 CT abd pelvis IV con only Urgent CT head/brain wo con Urgent 08/15/22 10:44 CT neck soft tissues [CT soft tissue neck wo con] Routine 08/17/22 12:00 CT Abd and Pelvis [CT abd pelvis wo con] Urgent CT chest diagnostic wo con Urgent Hospital Course (1) SIRS (systemic inflammatory response syndrome): (2) Fever: (3) Uses feeding tube: (4) Hypothyroidism: (5) Hypertension: (6) Benign prostatic hyperplasia: (7) Chronic back pain: (8) Depression: (9) Gastroparesis: (10) COPD (chronic obstructive pulmonary disease) with emphysema: Plan Per ROMAN Pollock's notes with addendum: This is a 76-year-old male with past medical history significant for head and neck cancer, status post radical dissection of the neck, status post radiation treatment and PEG tube placement, history of hypertension, history of COPD, depression presenting with fever and malaise since yesterday. SIRS criteria Possible sepsis secondary to aspiration pneumonia Bacterial sinusitis is a possibility Initially febrile at 38.7, labile BP with some hypotension currently 84/40, leukocytosis, 9.7 -> 14 overnight with elevated neutrophils and monocytes on differential Possible viral illness but no clear source -urine clear, COVID, flu A/B and RSV negative, and Lyme serology negative, CT abdomen pelvis normal with possible nonspecific colitis chest x-ray clear Given dose of cefepime in ED but with increased leukocytosis, started on empiric Zosyn for now. Follow blood cultures Added Anaplasma and peripheral smear due to malaise, transaminitis noted but peripheral smear without evidence of inclusion bodies. Anaplasma DNA pending Improving with IV Zosyn, and stress dose hydrocortisone 08/17 Developed fever-was having nausea and vomiting from constipation, developed aspiration pneumonitis, right lower lobe Repeat chest x-ray: Positive aspiration pneumonia right lower lobe CT chest: New infiltrates on the right lower lobe CT abdomen/pelvis: No obstruction Initial blood cultures: Negative Repeat blood cultures: Negative so far Clinically much better today without any fever and or chills No respiratory symptoms Should be discharged home on Augmentin 875 mg twice daily to finish a total of 10 days course Constipation with nausea Lactulose ordered KUB: No obstruction Change senna to MiraLAX daily -Resolved -Will need MiraLAX via PEG tube daily and as needed lactulose upon discharge Hx tonsillar cancer status post chemoradiation/neck dissection CT neck without contrast ordered as patient was having some discomfort over his throat: 1. The airway appears patent. 2. No masses or lymphadenopathy identified within the neck. 3. Prior right radical neck dissection again noted. 4. There is a new 7 mm lytic lesion within the C3 vertebral body. This is indeterminate. Metastatic disease would be the diagnosis of exclusion. 5. Mild chronic sinus disease as described above. Will need to follow-up as an outpatient with his oncologist/ENT next month COPD Stable. Saturating at 97% on 2 L nasal cannula. Continue home inhalers Clinically much better with her no wheezing and no shortness of breath Orthostatic hypotension on fludrocortisone Labile blood pressure noted by with SBP ranging from 70-200 at home. Follows with [facility] cardiology. Continue fludrocortisone and midodrine BP stable overall PEG tube status KUB: Moderate fecal contents noted Constipation resolved Management per above She will continue her usual PEG tube feeding as an outpatient Hypothyroidism Continue levothyroxine DVT Ppx: SQ lovenox Code status: FULL Dispo: Possible discharge to home tomorrow if afebrile x24 hours She will be discharged home this afternoon Total Time Total Time Spent Total Time Spent (In Minutes): 35 minutes Discharge Plan Discharge Items Patient Disposition: Home - Home Health Services Reason For Visit: FEVER Discharge Diagnosis: Aspiration pneumonia, acute sinusitis,, PEG tube status, history of tonsillar cancer status post surgery Condition on Discharge: Fair Activity: Resume your previous activity Non-emergency contact: Primary Care Provider Call non-emergency contact if: you have any medication questions and your symptoms worsen Follow-up/Referrals: Sanjiv Hart MD [Primary Care Provider] - 08/25/22 10:20 am (Date & Time 08/25/2022 10:20 AM Provider Sanjiv Hart III, MD Department [facility] ) Diet: Other - See Diet Comment Diet Comment: Continue PEG tube feeding as before Addtl Attending Provider Instructions: Please take precaution to avoid falls Finish the course of antibiotic Take aspiration precaution Please give appointment with your healthcare provider You need to see your ENT specialist in about 6-month has a follow-up for any new 7 mm lytic lesion within the C3 vertebral body. Pending Studies at Discharge: No Stand-Alone Forms: My [place], Smoking Cessation Medications and DC Order Prescriptions: New amoxicillin-pot clavulanate 875-125 mg Tablet 1 tab PO BIDM 7 Days Qty: 14 0RF Continued latanoprost 0.005 % Drops 1 drp OPB HS citalopram 20 mg tablet 20 mg Feeding Tube QAM Nutritional Drink Liquid 2 can Feeding Tube QID Rx Instructions: BOOST (2 CANS QID) brimonidine 0.2 % drops 1 drp OPB BID albuterol sulfate 90 mcg/actuation HFA aerosol inhaler 2 puff INHALATION QID PRN (Reason: Shortness Of Breath) acetaminophen [Tylenol Extra Strength] 500 mg Tablet 1,000 mg PO Q6H PRN (Reason: Pain) levothyroxine [Euthyrox] 88 mcg tablet 88 mcg feeding tube QAM atorvastatin 40 mg tablet 40 mg feeding tube HS guaifenesin [Mucinex] 600 mg Tablet Extended Release 12hr 600 mg PO Q12 Qty: 10 0RF midodrine 5 mg Tablet 10 mg feeding tube TID PRN (Reason: Hypotension) Rx Instructions: PRN systolic BP < 180 fludrocortisone 0.1 mg tablet 0.1 mg feeding tube DAILY Spiriva Respimat 2.5 mcg/actuation mist 2 puff INHALATION QAM fluticasone propionate 50 mcg/actuation [place],Suspension 2 spray JONN HS Qty: 16 0RF formoterol fumarate [Perforomist] 20 mcg/2 mL solution for nebulization 2 ml inhalation BID Qty: 120 0RF acetylcysteine 200 mg/mL (20 %) Solution 5 ml inhalation Q12R Qty: 90 0RF sodium chloride 7 % solution for nebulization 1 inh inhalation BID Qty: 120 0RF nystatin 100,000 unit/gram ointment 1 applic topical BID Qty: 30 0RF Rx Instructions: Apply to affected area surround feeding tube. Discharge Orders: Discharge Order (Routine); Ordered 08/19/22 Ordered By: Deja Soto Admission Data Admit Date/Time: 08/14/22 16:46 Attending Provider: Deja Soto Admit Provider: Tirso Guillory Primary Care Provider: Sanjiv Hart Other Providers: Tirso Guillory ; Rowena Pollock ; Remigio Rico Other Interventions: Discharge Summary Assessment (RN) Last Done: 08/19/22 14:06
== END 2022-08-19 14:52 | disposition home health service (06) | DRG 871 ==
LOC: 3N 18:02 → ED 18:02 → 3N 23:42 → SUATTDRO 08-14 16:46

== ENCOUNTER 2023-07-15 10:39 | Inpatient (IN) ==
--- NOTE | 2023-07-15 11:14 | XRay Report ---
XR chest 1V not portable HISTORY: 78 years-old Male Chest pain, nonspecific COMPARISON: 06/03/2023 TECHNIQUE: AP view of the chest FINDINGS: Cardiomediastinal and hilar silhouettes are within normal limits. No pneumothorax, pleural effusion o r airspace consolidation. Bones appear grossly intact. IMPRESSION: No acute process. ACT 112: Negative or not required by law. The above report was generated using voice recognition software. It may contain grammatical, syntax o r spelling errors. Electronically signed by: Yehuda Luna M.D. 07/15/2023 11:12 AM
[2023-07-15 11:57] LABS: Hematocrit (blood only) 40.6 % (42.0-52.0); Mean Corpuscular Hemoglobin 32.3 pg (25.0-34.0); Mean Corpuscular Hgb Conc 34.5 g/dL (32.0-36.0); Mean Corpuscular Volume 93.8 fL (80.0-100.0); Mean Platelet Volume 11.1 fL (9.4-12.4); Platelet Count 186 K/uL (130-400); RDW Coefficient of Variation 13.5 % (11.5-14.5); RDW Standard Deviation 46.2 fL (36.4-46.3); Red Blood Count 4.33 M/uL (4.70-6.10); White Blood Count 12.44 K/ul (4.8-10.8)
[2023-07-15 12:13] LABS: Influenza A virus by PCR Negative (Neg); Influenza B virus by PCR Negative (Neg); SARS CoV2 RNA(COVID-19) Ceph NEGATIVE (Negative)
[2023-07-15 12:17] LABS: Albumin Globulin Ratio 1.1 (0.9-2); Albumin Level 3.9 gm/dl (3.4-5.0); Bilirubin,Total 0.7 mg/dl (0.2-1.0); Calcium 9.3 mg/dl (8.6-10.3); Creatinine Clr Calc Pharmacy 56.4 ml/min; Est GFR (African American) 71.2 ml/min; Est GFR (Non-African American) 61.5 ml/min; Globulin 3.5 gm/dl (2.5-4.0); Potassium 3.7 mmol/L (3.5-5.1); Total Protein 7.4 gm/dl (6.0-8.3)
[2023-07-15 12:26] LABS: Troponin I High Sensitivity 14.9 pg/ml (0-20)
[2023-07-15 12:32] LABS: Basophils # (auto) 0.04 K/uL (0.00-0.20); Basophils % (auto) 0.3 %; Eosinophils # (auto) 0.02 K/uL (0.00-0.50); Eosinophils % (auto) 0.2 %; Immature Granulocytes # (auto) 0.04 K/uL (0.01-0.20); Immature Granulocytes % (auto) 0.3 %; Lymphocytes # (auto) 0.29 K/uL (1.20-3.40); Lymphocytes % (auto) 2.3 %; Monocytes # (auto) 0.61 K/uL (0.11-0.59); Monocytes % (auto) 4.9 %; Neutrophils # (auto) 11.44 K/uL (1.40-6.50); Polychromasia 1+
[2023-07-15 12:35] LABS: RSV by PCR Positive (Neg)
[2023-07-15 12:41] LABS: Partial Thromboplastin Time 27 Seconds (21-31)
[2023-07-15 12:46] LABS: Adenovirus PCR Not Detected (NotDetected); Bordetella parapertussis PCR Not Detected (NotDetected); Bordetella pertussis PCR Not Detected (NotDetected); Chlamydia pneumoniae PCR Not Detected (NotDetected); Coronavirus 229E PCR Not Detected (NotDetected); Coronavirus CoV-2 (COVID19)PCR Not Detected (NotDetected); Coronavirus HKU1 PCR Not Detected (NotDetected); Coronavirus NL63 PCR Not Detected (NotDetected); Coronavirus OC43PCR Not Detected (NotDetected); Human Metapneumovirus PCR Not Detected (NotDetected); Influenza A PCR Not Detected (NotDetected); Influenza B PCR Not Detected (NotDetected); Mycoplasma pneumoniae PCR Not Detected (NotDetected); Parainfluenza Virus 1 PCR Not Detected (NotDetected); Parainfluenza Virus 2 PCR Not Detected (NotDetected); Parainfluenza Virus 3 PCR Not Detected (NotDetected); Parainfluenza Virus 4 PCR Not Detected (NotDetected); Rhinovirus/Enterovirus PCR Not Detected (NotDetected)
--- NOTE | 2023-07-15 12:53 | Emergency Department Note ---
Impression & Plan Pneumonia, Acute respiratory failure with hypoxia, Respiratory syncytial virus (RSV) infection ED Provider Note NAME: DEMETRIO WELSH AGE: 78 SEX: M : 1945 ARRIVES VIA: Walk-In INFORMANT: Patient, ED PROVIDER(S): Connie Galvan MD CHIEF COMPLAINT: Shortness of breath HPI: Is a 78-year-old male with history of previous "neck cancer ", emphysema presenting for shortness of breath. Patient is with the who provides history as patient is significantly deaf. In addition he is unable to provide history as he is at neck cancer and has difficulty speaking. For the past 1 month he has had increasing shortness of breath, persistent cough. Over the past 2 days and worsening with slight worsening in his productive sputum ROS: See above HPI for pertinent positives & negatives. A total of 10 systems reviewed and were otherwise negative. PAST MEDICAL HISTORY: See Below PAST SURGICAL HISTORY: See Below FAMILY HISTORY: See Below SOCIAL HISTORY: See Below HOME MEDICATIONS: See Below ALLERGIES: See Below VITALS: See Below PHYSICAL EXAMINATION: General: resting comfortably in no acute distress Head: Normocephalic and atraumatic Eyes: Normal inspection, extraocular muscles intact Ear, nose, throat: Normal external exam Neck: Normal range of motion Respiratory: Rhonchi in all lung chow Cardiovascular: Regular rate/rhythm, no murmur GI: soft, nontender, no guarding or rebound Extremities: nontender, moves all extremities Neuro: The patient awake and alert, appropriately conversive, no focal deficits, symmetric faces Skin: Warm, dry, and intact MEDICAL DECISION MAKING: This is a 78-year-old male presenting for difficulty breathing. Patient history of neck cancer, emphysema from smoking, deaf. Patient clinically does not appear well, significant mucus production and congestion. Will get chest x-ray, basic blood work, viral panel, CTs of the chest and neck -Lab work reviewed showing a leukocytosis slight anemia -No electrolyte disturbance -Minimally elevated BNP 138 -Troponin is nonelevated -CTA reveals bronchopneumonia otherwise no PE -CT of the neck does not reveal acute process -Chest Xray independently interpreted by me showing no pneumothorax, focal opacity, or pleural effusions. -Patient is RSV positive here, still hypoxic -Due to patient's significant rhonchi, Rales, RC positive status, hypoxia, will admit -Will give steroids and albuterol for patient's emphysema, shortness of breath -Admitted to [facility] service Differential diagnosis: Pneumonia, viral process, ACS, PE, CHF ER treatment provided: See below Diagnostics interpreted by me: ECG: ECG independently interpreted by me with normal sinus rhythm, rate of 95, left axis deviation, normal OK, normal QTc, no ST segment elevations consistent with STEMI criteria, poor quality Cardiac Monitoring: An order was placed for continuous cardiac monitoring. The monitor shows a rate of 93 with sinus rhythm. Laboratory studies: As stated above and show below. Imaging studies: See below. Past Med/Surg History Medical History (Updated 07/15/23 @ 17:24 by Connie Galvan MD) Acute respiratory failure with hypoxia Abnormal CT scan, neck 07/2022 [facility] - "7 mm lytic lesion within the C3 vertebral body." Per , outpt imaging since being d/c from hospital has r/o mets. 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 Blood pressure instability [facility] Cardiology manages; currently using midodrine, and nitro PRN hypo/hypertension; per , cardiac workup wnl aside from BP changes Hypertension Aspiration pneumonia hx - CAN NOT TAKE FOOD/LIQUIDS ORALLY Degenerative disc disease Osteoarthritis Uses feeding tube GERD (gastroesophageal reflux disease) Hypothyroidism Glaucoma Anxiety Asthma rare use of PRN inh COPD (chronic obstructive pulmonary disease) with emphysema Orthostatic hypotension Gastroparesis Depression Chronic back pain Tonsil carcinoma (Unknown) RADIATION AND CHEMO Benign prostatic hyperplasia (Unknown) Surgical History History of radical neck dissection S/P percutaneous endoscopic gastrostomy (PEG) tube placement History of neck surgery LUMPECTOMY History of tooth extraction S/P colonoscopy (Unknown) S/P arthroscopic knee surgery (Unknown) RT H/O esophagogastroduodenoscopy (Unknown) WITH PLACEMENT PEG TUBE Family History Brother Family history of diabetes mellitus Social History Smoking Status: Never smoker Tobacco Type: Cigarettes Second Hand Exposure: No; Do You Dip or Chew Tobacco: No; Hx Alcohol Use: No Hx Substance Use: No Preferred Language: Belarusian 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 Ability: Impaired 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 Ability Comment: assist w/ answering questions. te-moak, speech difficulties Mixer And Scaler Required: No Beliefs That Will Affect Care: None marital status: Current Living Situation: Spouse Feels Safe at Home: Yes Assistive Devices: Glasses Allergies Allergies Allergy/AdvReac Type Severity Reaction Status Date / Time levofloxacin Allergy Intermediate rash all Verified 07/15/23 13:03 over body sulfamethoxazole Allergy Intermediate ITCHING Verified 07/15/23 13:03 trimethoprim Allergy Intermediate ITCHING Verified 07/15/23 13:03 terazosin Allergy Unknown DOES NOT Verified 07/15/23 13:03 KNOW Nitrate Analogues AdvReac Severe DROP IN BP Verified 07/15/23 13:03 sertraline AdvReac Intermediate NOSE BLEEDS Verified 07/15/23 13:03 Home Meds Home Medications Medication Instructions Recorded Confirmed citalopram 20 mg tablet 20 mg feeding tube QAM 05/07/18 07/15/23 food supplemt, lactose-reduced 2 can feeding tube TID 05/07/18 07/15/23 (Nutritional Drink oral liquid) latanoprost 0.005 % eye drops 1 drp OPB HS 01/30/19 07/15/23 acetaminophen 500 mg tablet 1,000 mg feeding tube Q6H PRN Pain 03/06/21 07/15/23 (Tylenol Extra Strength) levothyroxine 88 mcg tablet 88 mcg feeding tube QAM 04/06/21 07/15/23 (Euthyrox) midodrine 5 mg tablet 10 mg feeding tube TID PRN 05/13/21 07/15/23 Hypotension atorvastatin 40 mg tablet 40 mg feeding tube HS 06/02/21 07/15/23 fludrocortisone 0.1 mg tablet 0.1 mg feeding tube DAILY 06/05/22 07/15/23 tiotropium bromide 2.5 2 puff inhalation QAM 06/05/22 07/15/23 mcg/actuation mist for inhalation (Spiriva Respimat) albuterol sulfate 1.25 mg/3 mL 1.25 mg inhalation Q4H PRN 06/03/23 07/15/23 solution for nebulization Shortness Of Breath Or Wheezing aspirin 81 mg tablet,delayed 81 mg feeding tube DAILY 06/03/23 07/15/23 release prednisone 10 mg tablet 10 mg PO .TAPER DIRECTED 07/15/23 07/15/23 Previous Rx's Medication Instructions Recorded formoterol fumarate 20 mcg/2 mL 2 ml inhalation BID #120 mL 06/09/22 solution for nebulization (Perforomist) Results & Data (ED) Vital Signs Vital Signs - 24 hr 07/15/23 10:46 07/15/23 11:44 07/15/23 11:45 Temperature 36.5 C Temperature Source Temporal Artery Scan Pulse Rate 95 H Pulse Rate [Apical] 88 Pulse Rhythm Regular Respiratory Rate 20 25 H Respiratory Effort / Characteristics Non-Labored Spontaneous Non-Labored Spontaneous Respiratory Depth Normal Normal Blood Pressure 126/73 Blood Pressure [Left Arm] 162/75 H Blood Pressure Mean 90 Blood Pressure Mean [Left Arm] 104 Blood Pressure Position [Left Arm] Sitting Pulse Oximetry 93 92 92 Oxygen Delivery Method Room Air Room Air Room Air Oxygen Flow Rate Sepsis Recent Fever Within 48 Hours No Sepsis New/Unexplained Change in Mental Status No Sepsis Action Taken by Nursing No Action Required 07/15/23 13:04 07/15/23 13:08 07/15/23 13:40 Temperature Temperature Source Pulse Rate 92 H Pulse Rate [Apical] 93 H 87 Pulse Rhythm Respiratory Rate 27 H 24 Respiratory Effort / Characteristics Non-Labored Spontaneous Non-Labored Spontaneous Respiratory Depth Normal Normal Blood Pressure Blood Pressure [Left Arm] 181/100 H 192/105 H Blood Pressure Mean Blood Pressure Mean [Left Arm] 127 134 Blood Pressure Position [Left Arm] Sitting Sitting Pulse Oximetry 95 95 Oxygen Delivery Method Nasal Cannula Nasal Cannula Oxygen Flow Rate 2 2 Sepsis Recent Fever Within 48 Hours Sepsis New/Unexplained Change in Mental Status Sepsis Action Taken by Nursing 07/15/23 15:00 Temperature Temperature Source Pulse Rate Pulse Rate [Apical] 93 H Pulse Rhythm Respiratory Rate 20 Respiratory Effort / Characteristics Spontaneous Respiratory Depth Normal Blood Pressure Blood Pressure [Left Arm] 105/61 Blood Pressure Mean Blood Pressure Mean [Left Arm] 75 Blood Pressure Position [Left Arm] Lying Pulse Oximetry 98 Oxygen Delivery Method Oxymask Oxygen Flow Rate 7 Sepsis Recent Fever Within 48 Hours Sepsis New/Unexplained Change in Mental Status Sepsis Action Taken by Nursing Laboratory Data 07/15/23 11:37 07/15/23 11:37 Lab Results 07/15/23 07/15/23 07/15/23 Range/Units 11:25 11:25 11:25 WBC (4.8-10.8) K/ul RBC (4.70-6.10) M/uL Hgb (14.0-18.0) g/dl Hct (42.0-52.0) % MCV (80.0-100.0) fL MCH (25.0-34.0) pg MCHC (32.0-36.0) g/dL RDW Std Deviation (36.4-46.3) fL RDW Coeff of Judy (11.5-14.5) % Plt Count (130-400) K/uL MPV (9.4-12.4) fL Immature Gran % (Auto) % Neut % (Auto) % Lymph % (Auto) % [place] % (Auto) % Eos % (Auto) % Baso % (Auto) % Neut # (Auto) (1.40-6.50) K/uL Lymph # (Auto) (1.20-3.40) K/uL [place] # (Auto) (0.11-0.59) K/uL Eos # (Auto) (0.00-0.50) K/uL Baso # (Auto) (0.00-0.20) K/uL Immature Gran # (Auto) (0.01-0.20) K/uL Polychromasia PT (9.0-12.0) Seconds INR (0.9-1.1) APTT (21-31) Seconds PTT Ratio Sodium (136-145) mmol/L Potassium (3.5-5.1) mmol/L Chloride (98-107) mmol/L Carbon Dioxide (21-32) mmol/L Anion Gap (3-11) BUN (6-23) mg/dl Creatinine (0.6-1.4) mg/dl Est Cr Clr Drug Dosing ml/min Est GFR ( Amer) ml/min Est GFR (Non-Af Amer) ml/min BUN/Creatinine Ratio (10-20) Glucose (70-99(Fasting)) mg/dl POC Glucose (70-99) mg/dl Calcium (8.6-10.3) mg/dl Total Bilirubin (0.2-1.0) mg/dl AST (13-39) U/L ALT (7-52) U/L Alkaline Phosphatase (34-104) U/L Troponin I High Sens (0-20) pg/ml B-Natriuretic Peptide (0-100) pg/ml Total Protein (6.0-8.3) gm/dl Albumin (3.4-5.0) gm/dl Globulin (2.5-4.0) gm/dl Albumin/Globulin Ratio (0.9-2) Nasal Screen MRSA (PCR) (Negative) Adenovirus (PCR) Not Detected (NotDetected) B. pertussis DNA (PCR) Not Detected (NotDetected) B.parapertussis DNA PCR Not Detected (NotDetected) C. pneumoniae DNA (PCR) Not Detected (NotDetected) Coronavirus OC43 (PCR) Not Detected (NotDetected) Coronavirus HKU1 (PCR) Not Detected (NotDetected) Coronavirus 229E (PCR) Not Detected (NotDetected) SARS-CoV-2 (PCR) NEGATIVE Not Detected (Negative) Coronavirus NL63 (PCR) Not Detected (NotDetected) Human Metapneumovir PCR Not Detected (NotDetected) Influenza Type A (PCR) Negative Not Detected (Neg) Influenza Type B (PCR) Negative (Neg) M. pneumoniae (PCR) (NotDetected) Parainfluenza 1 (PCR) (NotDetected) Parainfluenza 2 (PCR) (NotDetected) Parainfluenza 3 (PCR) (NotDetected) Parainfluenza 4 (PCR) (NotDetected) RSV (RT-PCR) (Neg) RSV (PCR) (NotDetected) Entero/Rhino (PCR) (NotDetected) 07/15/23 07/15/23 07/15/23 Range/Units 11:25 11:37 14:33 WBC 12.44 H (4.8-10.8) K/ul RBC 4.33 L (4.70-6.10) M/uL Hgb 14.0 (14.0-18.0) g/dl Hct 40.6 L (42.0-52.0) % MCV 93.8 (80.0-100.0) fL MCH 32.3 (25.0-34.0) pg MCHC 34.5 (32.0-36.0) g/dL RDW Std Deviation 46.2 (36.4-46.3) fL RDW Coeff of Judy 13.5 (11.5-14.5) % Plt Count 186 (130-400) K/uL MPV 11.1 (9.4-12.4) fL Immature Gran % (Auto) 0.3 % Neut % (Auto) 92.0 % Lymph % (Auto) 2.3 % [place] % (Auto) 4.9 % Eos % (Auto) 0.2 % Baso % (Auto) 0.3 % Neut # (Auto) 11.44 H (1.40-6.50) K/uL Lymph # (Auto) 0.29 L (1.20-3.40) K/uL [place] # (Auto) 0.61 H (0.11-0.59) K/uL Eos # (Auto) 0.02 (0.00-0.50) K/uL Baso # (Auto) 0.04 (0.00-0.20) K/uL Immature Gran # (Auto) 0.04 (0.01-0.20) K/uL Polychromasia 1+ PT 11.0 (9.0-12.0) Seconds INR 1.0 (0.9-1.1) APTT 27 (21-31) Seconds PTT Ratio 1.0 Sodium 137 (136-145) mmol/L Potassium 3.7 (3.5-5.1) mmol/L Chloride 100 (98-107) mmol/L Carbon Dioxide 28 (21-32) mmol/L Anion Gap 9 (3-11) BUN 23 (6-23) mg/dl Creatinine 1.15 (0.6-1.4) mg/dl Est Cr Clr Drug Dosing 56.4 ml/min Est GFR ( Amer) 71.2 ml/min Est GFR (Non-Af Amer) 61.5 ml/min BUN/Creatinine Ratio 20.0 (10-20) Glucose 147 H (70-99(Fasting)) mg/dl POC Glucose 129 H (70-99) mg/dl Calcium 9.3 (8.6-10.3) mg/dl Total Bilirubin 0.7 (0.2-1.0) mg/dl AST 20 (13-39) U/L ALT 13 (7-52) U/L Alkaline Phosphatase 78 (34-104) U/L Troponin I High Sens 14.9 (0-20) pg/ml B-Natriuretic Peptide 138 H (0-100) pg/ml Total Protein 7.4 (6.0-8.3) gm/dl Albumin 3.9 (3.4-5.0) gm/dl Globulin 3.5 (2.5-4.0) gm/dl Albumin/Globulin Ratio 1.1 (0.9-2) Nasal Screen MRSA (PCR) (Negative) Adenovirus (PCR) (NotDetected) B. pertussis DNA (PCR) (NotDetected) B.parapertussis DNA PCR (NotDetected) C. pneumoniae DNA (PCR) (NotDetected) Coronavirus OC43 (PCR) (NotDetected) Coronavirus HKU1 (PCR) (NotDetected) Coronavirus 229E (PCR) (NotDetected) SARS-CoV-2 (PCR) (Negative) Coronavirus NL63 (PCR) (NotDetected) Human Metapneumovir PCR (NotDetected) Influenza Type A (PCR) (Neg) Influenza Type B (PCR) Not Detected (Neg) M. pneumoniae (PCR) Not Detected (NotDetected) Parainfluenza 1 (PCR) Not Detected (NotDetected) Parainfluenza 2 (PCR) Not Detected (NotDetected) Parainfluenza 3 (PCR) Not Detected (NotDetected) Parainfluenza 4 (PCR) Not Detected (NotDetected) RSV (RT-PCR) Positive A* (Neg) RSV (PCR) DETECTED A* (NotDetected) Entero/Rhino (PCR) Not Detected (NotDetected) 07/15/23 Range/Units 15:58 WBC (4.8-10.8) K/ul RBC (4.70-6.10) M/uL Hgb (14.0-18.0) g/dl Hct (42.0-52.0) % MCV (80.0-100.0) fL MCH (25.0-34.0) pg MCHC (32.0-36.0) g/dL RDW Std Deviation (36.4-46.3) fL RDW Coeff of Judy (11.5-14.5) % Plt Count (130-400) K/uL MPV (9.4-12.4) fL Immature Gran % (Auto) % Neut % (Auto) % Lymph % (Auto) % [place] % (Auto) % Eos % (Auto) % Baso % (Auto) % Neut # (Auto) (1.40-6.50) K/uL Lymph # (Auto) (1.20-3.40) K/uL [place] # (Auto) (0.11-0.59) K/uL Eos # (Auto) (0.00-0.50) K/uL Baso # (Auto) (0.00-0.20) K/uL Immature Gran # (Auto) (0.01-0.20) K/uL Polychromasia PT (9.0-12.0) Seconds INR (0.9-1.1) APTT (21-31) Seconds PTT Ratio Sodium (136-145) mmol/L Potassium (3.5-5.1) mmol/L Chloride (98-107) mmol/L Carbon Dioxide (21-32) mmol/L Anion Gap (3-11) BUN (6-23) mg/dl Creatinine (0.6-1.4) mg/dl Est Cr Clr Drug Dosing ml/min Est GFR ( Amer) ml/min Est GFR (Non-Af Amer) ml/min BUN/Creatinine Ratio (10-20) Glucose (70-99(Fasting)) mg/dl POC Glucose (70-99) mg/dl Calcium (8.6-10.3) mg/dl Total Bilirubin (0.2-1.0) mg/dl AST (13-39) U/L ALT (7-52) U/L Alkaline Phosphatase (34-104) U/L Troponin I High Sens (0-20) pg/ml B-Natriuretic Peptide (0-100) pg/ml Total Protein (6.0-8.3) gm/dl Albumin (3.4-5.0) gm/dl Globulin (2.5-4.0) gm/dl Albumin/Globulin Ratio (0.9-2) Nasal Screen MRSA (PCR) Negative (Negative) Adenovirus (PCR) (NotDetected) B. pertussis DNA (PCR) (NotDetected) B.parapertussis DNA PCR (NotDetected) C. pneumoniae DNA (PCR) (NotDetected) Coronavirus OC43 (PCR) (NotDetected) Coronavirus HKU1 (PCR) (NotDetected) Coronavirus 229E (PCR) (NotDetected) SARS-CoV-2 (PCR) (Negative) Coronavirus NL63 (PCR) (NotDetected) Human Metapneumovir PCR (NotDetected) Influenza Type A (PCR) (Neg) Influenza Type B (PCR) (Neg) M. pneumoniae (PCR) (NotDetected) Parainfluenza 1 (PCR) (NotDetected) Parainfluenza 2 (PCR) (NotDetected) Parainfluenza 3 (PCR) (NotDetected) Parainfluenza 4 (PCR) (NotDetected) RSV (RT-PCR) (Neg) RSV (PCR) (NotDetected) Entero/Rhino (PCR) (NotDetected) Administered Medications Vancomycin HCl 2,000 mg/ (Sodium Chloride) 540 mls @ 200 mls/hr IV ONE STA Stop: 07/15/23 17:56 Last Admin: 07/15/23 15:53 Dose: 200 mls/hr Documented By: EDGAR Discontinued Medications Albuterol (Albuterol 0.5% Neb Soln 2.5 Mg/0.5 Ml Vial) 2.5 mg NEB NOW STA; Protocol Stop: 07/15/23 14:15 Last Admin: 07/15/23 14:19 Dose: 2.5 mg Documented By: EDGAR Piperacillin Sod/Tazobactam Sod (Zosyn) 4.5 gm in 100 mls @ 200 mls/hr IV ONE ONE Stop: 07/15/23 15:36 Last Admin: 07/15/23 15:36 Dose: Not Given Documented By: EDGAR Ioversol (Optiray 320 125ml) 115 ml IV ONCE ONE Stop: 07/15/23 12:59 Last Admin: 07/15/23 12:58 Dose: 115 ml Documented By: ASHLEY Methylprednisolone (Methylprednisolone 125 Mg/2 Ml Vial) 125 mg IV NOW STA Stop: 07/15/23 14:15 Last Admin: 07/15/23 15:07 Dose: 125 mg Documented By: ARS Piperacillin Sod/Tazobactam Sod (Piperacillin/Tazobactam 4.5 Gm/100ml D5w) Confirm Administered Dose 4.5 gm IV .STK-MED ONE Stop: 07/15/23 14:55 Last Admin: 07/15/23 15:07 Dose: 4.5 gm Documented By: ARS Imaging Data Radiologist's Impression: Chest X-Ray 07/15/23 10:49 XR chest 1V not portable HISTORY: 78 years-old Male Chest pain, nonspecific COMPARISON: 06/03/2023 TECHNIQUE: AP view of the chest FINDINGS: Cardiomediastinal and hilar silhouettes are within normal limits. No pneumothorax, pleural effusion or airspace consolidation. Bones appear grossly intact. IMPRESSION: No acute process. ACT 112: Negative or not required by law. The above report was generated using voice recognition software. It may contain grammatical, syntax or spelling errors. Electronically signed by: Yehuda Luna M.D. 07/15/2023 11:12 AM Chest CTA 07/15/23 11:36 CT angio chest PE protocol HISTORY: 78 years-old Male with Dyspnea, CP, tachycardia. Acute chest pain with tachycardia TECHNIQUE: Multiple CTA images of the chest were obtained after the intravenous administration of 115 ml Optiray. Coronal and sagittal MIPS were obtained from the axial data set and were submitted for review. All measurements were obtained according to NASCET criteria. A dose lowering technique was utilized adhering to the principles of ALARA. COMPARISON: CT soft tissue neck of same day, chest CT 08/17/2022 FINDINGS: CTA: The heart is normal in size. No pericardial effusion. Mild coronary artery calcifications. Atherosclerosis of the thoracic aorta without aneurysm or dissection. Suboptimal evaluation of the pulmonary arterial tree secondary to respiratory motion artifact. No central pulmonary emboli identified. CT CHEST: Unremarkable thyroid. Paratracheal and hilar lymphadenopathy noted with subcarinal lymph nodes measuring up to 1.4 cm. Hilar lymph nodes measure up to 1.3 cm. These lymph nodes have mildly decreased in size from the prior study. No axillary or supraclavicular lymphadenopathy. Bronchial wall thickening with mucous plugging. Trace pleural effusions. No pneumothorax. Patchy mid to lower lung zone predominant groundglass densities with central lobular nodules. Mild linear subsegmental bibasilar atelectasis. Chronic right apical pleural parenchymal scarring. Stable 5 mm solid nodule of the right lower lobe, image 74. No acute process of the imaged upper abdomen. No acute fracture. IMPRESSION: 1. Limited exam secondary to respiratory motion artifact. No central pulmonary emboli identified. 2. Bibasilar mucous plugging with mid to lower lung zone multifocal bilateral pulmonary opacities, likely representing bronchopneumonia. 3. Mild mediastinal and hilar lymphadenopathy redemonstrated which has decreased in size from the prior study. ACT 112: Negative or not required by law. The above report was generated using voice recognition software. It may contain grammatical, syntax or spelling errors. Electronically signed by: Yehuda Luna M.D. 07/15/2023 1:30 PM Soft Tissue Neck CT 07/15/23 12:19 CT soft tissue neck w con HISTORY: 78 years-old Male cancer, difficulty swallowing acute neck pain with difficulty swallowing COMPARISON: CTA chest of same day, CT soft tissue neck 08/15/2022 TECHNIQUE: Multiple axial CT images of the soft tissues of the neck were obtained following the intravenous administration of 115 mL Optiray 320. A dose lowering technique was used consistent with the principals of DON. FINDINGS: Mildly motion degraded exam. Right apical pleural-parenchymal scarring redemonstrated. No pneumothorax. The imaged intracranial structures demonstrate no acute abnormality. The airway appears patent. Unremarkable appearance of the epiglottis, glottis and subglottic airway. Atrophic thyroid. Unremarkable vasculature of the neck with moderate atherosclerosis of the carotid bulbs. The parapharyngeal fat planes are symmetric and well-maintained. No fluid collections or new soft tissue mass is identified. Postoperative changes of prior right radical dissection again noted. Abnormal appearance of the floor of the mouth is redemonstrated, notably on image 144 series 6 which appears unchanged and generally stable from the prior exam. Unchanged 6 mm left submandibular lymph node on image 176. No pathologically enlarged lymph nodes identified. Degenerative changes of the spine. Unchanged 8 mm lucent focus of the C3 vertebral body. Stable smaller subcentimeter lucent focus of the C2 vertebral body on image 121 series 6. Large left mastoid effusion with postoperative changes. The right mastoid air cells and paranasal sinuses are generally clear. IMPRESSION: 1. No acute abnormality identified within the soft tissues of the neck. 2. Postoperative changes of prior right radical neck dissection redemonstrated. 3. Unchanged lucent lesions of the C2 and C3 vertebral bodies. 4. No pathologically enlarged lymph nodes or new soft tissue mass is identified. ACT 112: Negative or not required by law. The above report was generated using voice recognition software. It may contain grammatical, syntax or spelling errors. Electronically signed by: Yehdua Luna M.D. 07/15/2023 1:40 PM Discharge Plan Visit Data Chief Complaint: Shortness of Breath/Dyspnea Stated Complaint: CHEST HEAVY, HARD TO BREATHE ED Provider: Connie Galvan Discharge Problem: Pneumonia, Acute respiratory failure with hypoxia, Respiratory syncytial virus (RSV) infection Forms Stand Alone Forms: My [facility] Prescriptions Prescriptions: No Action latanoprost 0.005 % Drops 1 drp OPB HS citalopram 20 mg tablet 20 mg Feeding Tube QAM Nutritional Drink Liquid 2 can Feeding Tube TID acetaminophen [Tylenol Extra Strength] 500 mg Tablet 1,000 mg feeding tube Q6H PRN (Reason: Pain) levothyroxine [Euthyrox] 88 mcg tablet 88 mcg feeding tube QAM atorvastatin 40 mg tablet 40 mg feeding tube HS albuterol sulfate 1.25 mg/3 mL solution for nebulization 1.25 mg inhalation Q4H PRN (Reason: Shortness Of Breath Or Wheezing) aspirin 81 mg Tablet,Delayed Release (Dr/Ec) 81 mg feeding tube DAILY prednisone 10 mg tablet 10 mg PO .TAPER DIRECTED midodrine 5 mg Tablet 10 mg feeding tube TID PRN (Reason: Hypotension) Rx Instructions: PRN systolic BP < 180 fludrocortisone 0.1 mg tablet 0.1 mg feeding tube DAILY Spiriva Respimat 2.5 mcg/actuation mist 2 puff INHALATION QAM formoterol fumarate [Perforomist] 20 mcg/2 mL solution for nebulization 2 ml inhalation BID Qty: 120 0RF Rx Instructions: This is per [facility] but dies not remember this. Referrals Referrals: Sanjiv Hart MD [Primary Care Provider] -
[2023-07-15] MEDS ORDERED: OPTIRAY 320 125ml IV ONE (12:58)
[2023-07-15 13:02] LABS: Respiratory Syncytial VirusPCR DETECTED (NotDetected)
--- OUTSIDE RECORDS SUMMARY | 2023-07-15 13:28 | External Medical Summary ---
Author Name Unknown Address Unknown Organization [id number]:[facility] [address] [place] [address] Laboratory Report Ordering Provider Test Date Status 07/14/2023 11:59:52 Final Observation Date Value Abnormality Reference (Units ) Status BUN 07/14/2023 11:59:52 10 6-20 (mg/dL) Final Creatinine 07/14/2023 11:59:52 1.1 0.6-1.2 (mg/dL) Final Glomerular filtration rate/1.73 sq M.predicted [Volume Rate/Area] in Serum, Plasma or Blood by Creatinine-based formula (CKD-EPI) 07/14/2023 11:59:52 73 >=60 (mL/min) Final eGFR is calculated based on the CKD-EPI 2020 equation SODIUM 07/14/2023 11:59:52 139 135-146 (m mol/L) Final Potassium 07/14/2023 11:59:52 3.8 3.5-5.1 (m mol/L) Final Cl 07/14/2023 11:59:52 100 98-107 (mm ol/L) Final CO2 07/14/2023 11:59:52 28 22-32 (mmo l/L) Final Anion gap 07/14/2023 11:59:52 11 7-15 (mmol /L) Final Glucose 07/14/2023 11:59:52 123 Above high normal 70 -120 (mg/dL) Final Albumin 07/14/2023 11:59:52 4.0 3.8-5.0 (g /dL) Final AST (Aspartate aminotransferase) 07/14/2023 11:59:52 21 10-50 (U/L) Fin al Alk Phos 07/14/2023 11:59:52 94 35-130 (U/ L) Final Bilirubin, Total 07/14/2023 11:59:52 1.0 <=1 .2 (mg/dL) Final Calcium 07/14/2023 11:59:52 9.3 8.4-10.2 ( mg/dL) Final Protein 07/14/2023 11:59:52 6.8 6.0-8.3 (g /dL) Final ALT (Alanine aminotransferase) 07/14/2023 11:59:52 16 10-50 (U/L) Carlo sauceda Performing Location [facility] [address] [place] [address]
--- OUTSIDE RECORDS SUMMARY | 2023-07-15 13:28 | External Medical Summary | Summary of Care ---
Author Name Unknown Organization [facility] Address [address] [place] [place] [address] Phone [phone] Care Team Providers Care Internal Review And Audit Compliance Name Role Phone Tanner CANTU MD, Sanjiv Moser Primary Care Provider [phone] Reason for Visit * Reason Onset Date Comments Advice 07/05/2023 Encounter Details Date Type Department Care Team (Late st Contact Info) Description 07/05/2023 Telephone Family Practice [facility] [address] [place] [address] Sanjiv Hart III, MD [address] [place] [address] Advice Allergies Active Allergy Reactions Criticality Noted Date Comments Sulfamethoxazole-Trimethoprim Hives Medium 2016 Levofloxacin Rash Low 03/03/2017 Lisinopril 03/12/2021 Raises bp Nitrates, Organic 09/07/2000 Unconsciousness Sertraline Low 02/09/2019 Other reaction(s): NOSE BLEEDS Sulfamethoxazole Itching High 02/09/2019 Terazosin 12/08/2001 priaprism Trimethoprim Itching High 02/09/2019 documented as of this encounter (statuses as of 07/13/2023) Medications Medication Sig Dispensed Refills Start Date End Date Status Nutritional Supplements (BOOST PLUS) LIQDIndications:Dysp hagia,At high risk for aspiration 2 cans 4 x daily @ 7am,11 am,3 pm, 7 pm 240 Can 11 12/27/2018 Active Additional Information Patient taking differently: G Tube, 2 cans 4 x daily @ 7am,11 am,3 pm, 7 pm, Reported on 06/01/2022 Acetaminophen 500 MG Oral Capsule Administer 2 Capsules into G tube every 6 hours as needed for Pain, Moderate. 0 03/10/2021 Active Glucose 40 % Oral Gel (Glutose 15) As Directed 0 01/19/2021 Active Aspirin EC 81 MG Oral Tablet Delayed Release Take 1 Tab by mouth daily. 90 Tab 3 04/24/2021 Active Spiriva Respimat 2.5 MCG/ACT Inhalation Aerosol Solution (Tiotropium [place] Monohydrate) Inhale 2 Puffs by mouth in the morning. 4 g 5 06/01/2022 Active Formoterol Fumarate 20 MCG/2ML Inhalation Nebulization SolutionIndications: Unspecified chronic bronchitis (HCC) Inhale 2 mL by mouth in the morning and 2 mL before bedtime. 120 mL 5 06/30/2022 Active Atorvastatin Calcium 40 MG Oral Tablet (Lipitor)Indications :Coronary artery disease involving [place] coronary artery of [place] heart without angina pectoris Take 1 tablet by mouth once daily 90 Tablet 3 09/23/2022 Active Latanoprost 0.005 % Ophthalmic Solution (Xalatan) Instill 1 Drop into both eyes every evening. 10 mL 3 10/16/2022 Active OneTouch Ultra In Vitro Strip (Glucose Blood)Indications:Hy poglycemia USE DIRECTED FOUR TIMES A DAY NEEDED FOR HYPERGLYCEMIA (HIGH SUGAR). DX:E11.9 100 Strip 5 10/28/2022 Active Levothyroxine Sodium 88 MCG Oral Tablet Administer 1 Tablet into G tube in the morning. (at least 30 min prior to breakfast or other meds). 90 Tablet 1 11/10/2022 Active oxyCODONE HCl 5 MG Oral Tablet (Oxy IR) Take 1 Tablet by mouth every 4 hours as needed for moderate or severe pain 10 Tablet 0 12/21/2022 Active Citalopram Hydrobromide 20 MG Oral Tablet (CeleXA)Indications: Panic attacks Take 1 tablet by mouth once daily 90 Tablet 1 12/23/2022 Active Albuterol Sulfate 1.25 MG/3ML Inhalation Nebulization SolutionIndications: Wheezing,Bronchitis, complicated,COPD exacerbation (HCC),COPD, group C, by GOLD 2017 classification (HCC) Inhale 1.25 mg via nebulizer every 4 hours as needed for Shortness of Breath or Wheezing. 120 vials Dx J44.1, J44.9, R06.2, and J40 360 mL 5 02/17/2023 Active Fludrocortisone Acetate 0.1 MG Oral Tablet (Florinef)Indication s:Orthostatic hypotension Take 1 Tablet by mouth in the morning. 30 Tablet 5 03/01/2023 Active Midodrine HCl 5 MG Oral Tablet (Proamatine)Indicati ons:Orthostatic hypotension TAKE 2 TABLETS BY MOUTH THREE TIMES DAILY NEEDED FOR HYPOTENSION (FOR BLOOD PRESSURE LESS THAN 80MM HG SYSTOLIC) 60 Tablet 3 04/26/2023 Active predniSONE 5 MG Oral Tablet (Deltasone)Indicatio ns:COPD, group C, by GOLD 2017 classification ([facility]),Chronic cough 1 tab daily for 2 weeks; then 1/2 tab daily until finished 21 Tablet 0 06/09/2023 Active Dexcom G7 SensorIndications:Hy poglycemia Use 1 Units as directed daily. 1 Each 5 06/09/2023 Active Dexcom G7 Coffin Maker DeviceIndications:Hy poglycemia Use 1 Units as directed daily. 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 2020 Dry eye syndrome due to meibomian gland dysfunct ion 09/17/2020 Acquired hypothyroidism 08/14/2019 COPD, group C, by GOLD 2017 classification 05/01 Overview: Per COPD GOLD Classification Esophageal stenosis 02/17/2019 ANDREA (generalized anxiety disorder) 09/09/2018 Moderate episode of recurrent major depressive d isorder 08/19/2018 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, moderate stage 05/26/2018 Senile nuclear cataract, bilateral 05/20/2018 Dry eyes, bilateral 05/20/2018 History of malignant neoplasm of tonsil 03/09/20 18 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 03/09/2018 History of radiation to head and neck region PEG (percutaneous endoscopic gastrostomy) status 10/19/2017 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 Gastroesophageal reflux disease with esophagitis 04/17/2015 Gastroparesis 04/25/2007 Dyslipidemia 01/17/2007 HTN, goal below 130/80 01/17/2007 documented as of this encounter (statuses as of 07/13/2023) Resolved Problems Problem Noted Date Diagnosed Date Resolved Date Unspecified protein-calorie malnutrition 09/11/2020 02/08/2021 Panic attacks 08/14/2019 02/08/2021 COPD, group B, by GOLD 2017 classification 12/26/2018 05/03/2019 Overview: Per COPD GOLD Classification Anxiety state 08/19/2018 09/09/2018 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, severe stage 05/20/2018 08/19/2018 Presbyopia 05/20/2018 02/08/2021 Dysphagia, oral phase 03/03/20172020 Near syncope 12/12/2013 03/23/2017 Orthostatic hypotension 12/12/201301/17 COPD exacerbation 09/25/2013 03/17/2018 PEG tube malfunction 12/01/2012 017 COPD, moderate 12/16/2011 12/28/2018 Overview: Per COPD GOLD Classification Synovitis 11/25/2009 03/23/2017 Dyslipidemia, goal to be determined 10/23/2008 02/16/2013 ACTIVE CASE MANAGEMENT-Yanet Landa Rn- [phone] 09/28/2007 02/16/2008 Malignant neoplasm soft tissue head 08/10/2007 12/15/2016 Thrush 08/09/2007 02/16/2013 Other constipation 08/09/2007 3 Dehydration 07/26/2007 02/16/2013 Sialoadenitis 07/24/2007 03/23/2017 Loss of teeth due to trauma, extraction, or periodontal disease 05/02/2007 02/16/2013 ADVANCE DIRECTIVE INFORMATION 03/24/2007 02/08/2021 Overview: No, Advance Directive brochure given to patient. States he did not receive booklet, another booklet given with instructions. Dental caries extending into dentine 03/09/2007 02/16/2013 Dental caries extending into dentine 03/09/2007 03/11/2007 Chronic periodontitis, generalized 03/09/2007 03/23/2017 Malignant neoplasm of tonsil 03/09/2007 12/15/2016 Overview: right tonsil and neck Hypoglycemia 05/05/2004 02/08/2021 Hyperplasia of prostate with out lower urinary tract symptoms (LUTS) 07/26/2003 02/08/2021 Lumbago 12/15/2001 03/17/2018 Esophageal reflux 04/17/2015 Major depressive disorder Overview: ICD-10 update of inactive term Benign prostatic hyperplasia 09/09/2018 Overview: ICD-10 update of inactive term ICD-10 update of inactive term Asthma with severity to be determined 07/20/2012 Overview: ICD-10 update of inactive term Chronic constipation 021 Chronic constipation 009 Overview: Resolved per Duplicate Protocol #2. documented as of this encounter (statuses as of 07/13/2023) Immunizations Name Administration Dates Next Due COVID-19 mRNA, LNP-s, No Pre serve, 2-Dose Series ([employer]) 02/18/2022,10/11/2020,09/13/2020 PPD 08/09/2002 Pneumococcal Conjugate Vacc, 13 Valent (Prevnar) 10/26/2014 Pneumococcal Polysaccharide PPV23 (Pneumovax) 02/24/2016,04/19/2008 Rabies Vaccine Diploid cell (Imovax) ,02/19/2017,02/12/2017,02/08,02/05/2017 Seasonal Influenza Virus Vac cine, Unspecified Formulation 05/01/2022 Seasonal Influenza, PF, 6 M & above, IM , (FluLaval or Fluzone) 05/04/2019,05/16/2018 Seasonal Influenza, Quadriva lent Hd (Fluzone Hd) 04/06/2023,05/01/2022,04/09/2021 Seasonal Influenza, Quadriva lent Hd, 65+ Yrs 05/08/2020 Seasonal Influenza, Quadriva lent, No Preserve, IM 04/09/2016,04/17/2015 Seasonal Influenza, Split, I IV3, With Preserve, Inj 04/10/2014,05/15/2013,04/14/2012,05/28,05/23/2009,04/19/2008,04/25/2007 ,07/04/2002 Seasonal Influenza, Trivalen t, High Dose, No Preserve, IM 05/02/2019,05/19/2017 TD - Tetanus/Diptheria (ADULT) 07/26/2003,1992 TDAP (age 11 and older)(Adacel) 10/02/2011 Varicella Zoster Vaccine (Adult) 04/19/2012 documented as of this encounter Social History Tobacco Use Types Packs/Day Years Used Date Smoking Tobacco: Former Cigarettes 0.5 5 Q uit: 06/18/1979 Smokeless Tobacco: Never Alcohol Use Standard Drinks/Week Comments Not Currently 1 (1 standard drink = 0.6 oz pur e alcohol) 1 drink a day PHQ-2 Answer Date Recorded PHQ Adult Total Score 0 02/02/2023 Hunger Vital Sign Answer Date Recorded Worried About Running Out of Food in the Last Ye ar Never true 02/19/2020 Ran Out of Food in the Last Year Never true 02/19/2020 Sex and Gender Information Value Date Recorded Sex Assigned at Male 12/02/2018 10:35 AM EDT Gender Identity Male 12/02/2018 10:35 AM EDT Sexual Orientation Straight 12/02/2018 10 :35 AM EDT Job Start Date Occupation Industry Not on file Not on file Not on file documented as of this encounter Miscellaneous Notes * Telephone Encounter - Jay Ling OSA - 07/13/2023 10:26 AM EST Pt has appt already denisa'd for 07/15 for lingering cough * Telephone Encounter - Mari Hernández OSA - 07/07/2023 9:03 AM EST My g sent 07/07 * Telephone Encounter - Ana Luisa Marsh LPN - 07/06/2023 6:30 PM EST Please call and schedule pt for an appt with first available provider. * Telephone Encounter - Jerel Carr OSA - 07/05/2023 4:10 PM EST No Appointments Available Patient declined appointments?: No What Visit Type is needed? Acute If Acute Visit Type is needed, were surrounding clinics offered to patient (Yes/No)? N/A Was patient offered appointments with other available providers (Yes/No)? N/A See Call Details? (Yes or No): Yes would like a call back to discuss a cough that patient has had for 1month documented in this encounter Plan of Treatment Upcoming Encounters Date Type Department Care Team (Late st Contact Info) Description 07/15/2023 2:20 PM EST Office Visit Family Practice [facility] [address] [place] [address] La Farrar MD [address] [place] [address] 07/16/2023 10:45 AM EST [facility] [address] [place] [address] Marta Moran MD [address] [place] [address] 09/07/2023 8:00 AM EST Office Visit Audiology, [place] [address] [place] [address] Cayla Merlos Au.D. [address] [place] [address] 11/04/2023 3:30 PM EDT Office Visit Cardiology [facility] [address] [place] [address] Primitivo Calderon MD [address] [place] [address] Scheduled Procedures Name Priority Associated Diagnoses Date/Ti me COLONOSCOPY FLEXIBLE PROXIMAL DIAGNOSTIC Recall History of colon polyps Health Maintenance Due Date Last Done Comments Alpha-1 Antitrypsin 1965 *ADVANCE DIRECTIVE NOT ON FILE 05/06/2019 DTaP,Tdap,and Td Vaccines (2 - Td or Tdap) 10/01/2021 10/02/2011, 07/26/2003, 07/19/1992 TSH 03/06/2023 03/06/2022, 02/17, 03/06/2021, Additional history exists COVID-19 Vaccine ( season) 2023 02/18/2022, 10/11/2020, 09/13/2020 O2 ASSESSMENT COMPLETED IN PAST YEAR FOR COPD 12/22/2023 12/21/2022 Depression Screening 02/03/2024 02/02/2023 GFR 06/09/2024 06/09/2023, 11/03/2023, 03/10/2023, Additional history exists Albumin/Creatinine Ratio 02/04/2025 02/04/2022 COLONOSCOPY-EVERY 5 YRS AGES 18-100 08/08/2026 08/08/2021, 04/04/2019, 11/13/2014, Additional history exists Zoster Vaccines Discontinued 04/19/2012 Hepatitis C Screening Completed 08/02/2013 Pneumococcal Vaccine: 65+ Years Completed 02/24/2016, 10/26/2014, 04/19/2008 Influenza Vaccine (FLU shot) Completed 04/06/2023, 05/01/2022, 05/01/2022, Additional history exists GARDASIL-HPV IMMUNIZATION SERIES Aged Out No longer eligible based on patient's age to complete this topic Hepatitis B Aged Out No longer eligi ble based on patient's age to complete this topic MENINGOCOCCAL (MENACTRA/MENVEO) Aged Out No longer eligible based on patient's age to complete this topic documented as of this encounter Medical Devices Implanted Type Area Life Guard Device Identifier Shelf Expiration Date Model / Serial / Lot [id number] - [id number] [place]ed:[place] : 1 [place] 09[place]26[place] [facility] [place] - Human Right: Neck LIFE CELL MARIANO 10/17/2008 [id number] / / [id number] Description:alloderm 3x7cm Elect Nucleus Slim Str [id number] - [id number] Implanted:Qty : 1 on 12/21/2022 by Ollie Borja [place] [facility] [place]: Ear [employer] 11/04/2024 [id number] / / [id number] documented as of this encounter Advance Directives Latest Code Status on File Code Status Date Activated Date Inactivated Comments Full Code 09/26/2007 1:43 PM 09/27/2007 5:30 PM Code Status History Code Status Date Activated Date Inactivated Comments Full Code 08/09/2007 1:38 PM 08/12/2007 5:16 PM Care Teams Internal Review And Audit Compliance Relationship Specialty Start Date End Date Sanjiv Hart III, MD [address] [place] [address] PCP - General Family Medicine 09/09/18 documented as of this encounter
--- OUTSIDE RECORDS SUMMARY | 2023-07-15 13:28 | External Medical Summary ---
Author Name Unknown Address Unknown Organization K09:[facility] [place] [address] Laboratory Report Ordering Provider Test Date Status 07/14/2023 11:59:52 Final Observation Date Value Abnormality Reference (Units ) Status WBC, Total 07/14/2023 11:59:52 7.48 4.00-10.8 0 (K/uL) Final RBC 07/14/2023 11:59:52 4.51 4.50-5.25 (M/uL) Final Hemoglobin 07/14/2023 11:59:52 14.5 14.0-16.8 (g/dL) Final HCT 07/14/2023 11:59:52 43.9 40.0-48.4 (%) Final MCV 07/14/2023 11:59:52 97.3 82.0-99.5 (fL) Final MCH 07/14/2023 11:59:52 32.2 27.0-34.0 (pg) Final MCHC 07/14/2023 11:59:52 33.0 32.0-36.0 (g/dL) Final RDW 07/14/2023 11:59:52 13.8 11.5-15.5 (%) Final Platelets 07/14/2023 11:59:52 175 140-400 (K /uL) Final MPV 07/14/2023 11:59:52 11.1 6.6-11.1 ( fL) Final Performing Location [facility] [place] [address]
--- OUTSIDE RECORDS SUMMARY | 2023-07-15 13:28 | External Medical Summary ---
Author Name Unknown Address Unknown Organization K01:[facility]ATORY [facility] [place] - [address] [place] [address] Laboratory Report Ordering Provider Test Date Status 07/14/2023 11:59:52 Final Exclude Heart Failure: <300 pg/mL
Diagnose Heart Failure:
Age <50 yr: >450 pg/mL
50-75 yr: >900 pg/mL
>75 yr: >1800 pg/mL
GFR is 30-59 mL/min: >1200 pg/mL or Age- adjusted values
GFR <30 mL/min: do not use, not reliable

Prognostic threshold: 1000 pg/mL Observation Date Value Abnormality Reference (Units ) Status BNP, Pro-hormone 07/14/2023 11:59:52 373 Above high no rmal <300 (pg/mL) Final Performing Location [facility]ATORY [facility] [address] [place] [address]
--- OUTSIDE RECORDS SUMMARY | 2023-07-15 13:28 | External Medical Summary | Summary of Care ---
Author Name Unknown Organization [facility] Address [address] [facility] [place] [place] [address] Phone [phone] Care Team Providers Care Acute Care Nurse Name Role Phone Tanner CANTU MD, Sanjiv Moser Primary Care Provider [phone] Reason for Visit * Reason Onset Date Comments Advice 07/05/2023 Encounter Details Date Type Department Care Team (Late st Contact Info) Description 07/05/2023 Telephone Family Practice [facility] [address] [place] [address] Sanjiv Hart III, MD [address] [place] [address] Advice Allergies Active Allergy Reactions Criticality Noted Date Comments Sulfamethoxazole-Trimethoprim Hives Medium 2016 Levofloxacin Rash Low 03/03/2017 Lisinopril 03/12/2021 Raises bp Nitrates, Organic 09/07/2000 Unconsciousness Sertraline Low 02/09/2019 Other reaction(s): NOSE BLEEDS Sulfamethoxazole Itching High 02/09/2019 Terazosin 12/08/2001 priaprism Trimethoprim Itching High 02/09/2019 documented as of this encounter (statuses as of 07/08/2023) Medications Medication Sig Dispensed Refills Start Date [...] Respimat 2.5 MCG/ACT Inhalation Aerosol Solution (Tiotropium [place] Monohydrate) Inhale 2 Puffs by mouth in the morning. 4 g 5 06/01/2022 Active Formoterol Fumarate 20 MCG/2ML Inhalation Nebulization SolutionIndications: Unspecified chronic bronchitis (HCC) Inhale 2 mL by mouth in the morning and 2 mL before bedtime. 120 mL 5 06/30/2022 Active Atorvastatin Calcium 40 MG Oral Tablet (Lipitor)Indications :Coronary artery disease involving [place] coronary artery of [place] heart without angina pectoris Take 1 tablet [...] ns:COPD, group C, by GOLD 2017 classification ([facility]),Chronic cough 1 tab daily for 2 weeks; then 1/2 tab daily until finished 21 Tablet 0 06/09/2023 Active Dexcom G7 SensorIndications:Hy poglycemia Use 1 Units as directed daily. 1 Each 5 06/09/2023 Active Dexcom G7 Technology Sales Consultant DeviceIndications:Hy poglycemia Use 1 Units as directed daily. 1 Each 2 06/09/2023 Active documented as of this encounter (statuses as of 07/08/2023) Active Problems Problem Noted Date Diagnosed Date [...] as of this encounter (statuses as of 07/08/2023) Resolved Problems Problem Noted Date Diagnosed Date [...] 10/23/2008 02/16/2013 ACTIVE CASE MANAGEMENT-Yanet Landa Rn- [phone] 09/28/2007 02/16/2008 Malignant neoplasm soft tissue head [...] as of this encounter (statuses as of 07/08/2023) Immunizations Name Administration Dates Next Due COVID-19 mRNA, LNP-s, No Pre serve, 2-Dose Series ([employer]) 02/18/2022,10/11/2020,09/13/2020 Pneumococcal Conjugate Vacc, 13 Valent (Prevnar) 10/26/2014 [...] Split, I IV3, With Preserve, Inj 04/10/2014,05/15/2013,04/14/2012,05/28,05/23/2009,04/19/2008,04/25/2007 Seasonal Influenza, Trivalen t, High Dose, No Preserve, IM 05/02/2019,05/19/2017 TDAP (age 11 and older)(Adacel) 10/02/2011 Varicella [...] encounter Miscellaneous Notes * Telephone Encounter - Mari Hernández OSA [...] Care Team (Late st Contact Info) Description 07/16/2023 10:45 AM EST Office Visit [facility] [address] [place] [address] Marta Moran MD [address] [place] [address] 09/07/2023 8:00 AM EST Office Visit Audiology, [place] [address] [place] [address] Cayla Merlos Au.D. [address] [place], [place] [id number] 11/04/2023 3:30 PM EDT Office Visit Cardiology [facility], [place] [address] [place], [place] [id number] Primitivo Calderon MD [address] [place], [place] [id number] Scheduled Procedures Name Priority Associated Diagnoses Date/Ti [...] Depression Screening 02/03/2024 02/02/2023 GFR 06/09/2024 06/09/2023, 11/0 03/2023, 03/10/2023, Additional history exists Albumin/Creatinine Ratio 02/04/2025 [...] this encounter Medical Devices Implanted Type Area Cassandra Architect Device Identifier Shelf Expiration Date Model / Serial / Lot [id number] - [id number] Implanted:Q[place] : 1 [place] [facility] [place] Human [place]: Neck [employer]LL MAR[employer]O 10/17/2008 [id number] / / [id number] Description:alloderm 3x7cm Elect Nucleus Slim Str [id number] - [id number] Implanted:Qty : 1 on 12/21/2022 by Ollie Borja MD at [facility] Left: Ear [employer] 11/04/2024 [id number] / / [id number] documented as of this encounter Advance Directives Latest Code Status on File Code Status Date Activated Date Inactivated Comments Full Code 09/26/2007 1:43 PM 09/27/2007 5:30 PM Code Status History Code Status Date Activated Date Inactivated Comments Full Code 08/09/2007 1:38 PM 08/12/2007 5:16 PM Care Teams Acute Care Nurse Relationship Specialty Start Date End Date Sanjiv Hart III, MD [address] [place] [address] PCP - General Family Medicine 09/09/18 documented as of this encounter
--- OUTSIDE RECORDS SUMMARY | 2023-07-15 13:28 | External Medical Summary ---
Author Name Unknown Address Unknown Organization K01:[facility] [place] [address] [place] [address] Laboratory Report Ordering Provider Test Date Status 07/14/2023 11:59:52 Final Observation Date Value Abnormality Reference (Units ) Status Lipase 07/14/2023 11:59:52 25 13-60 (U/L ) Final Performing Location [facility] [place] [address] [place] [address]
--- OUTSIDE RECORDS SUMMARY | 2023-07-15 13:28 | External Medical Summary | Summary of Care ---
Author Name Unknown Organization [facility] [address] [facility] [address] Phone [phone] Care Team Providers Care Machine Hose Cutter Name Role Phone Tanner CANTU MD, Sanjiv Moser Primary Care Provider [phone] Reason for Visit * Reason Comments Acute Pt was here 3 weeks ago about cough. Did CT scan with contrast which was ok last night O2 was good, pulse was good pt still having cough and c/o possible vomiting. Pat tells his that it is all right in his throat and when he is able to cough phlegm up it helps. Does not know what color they are. Outpatient Testing Encounter Details Date Type Department Care Team (Latest Contact Info) Description 07/14/2023 11:40 AM EST Office Visit Family Practice [facility] [address] [facility] [place] [address] Patricia Leal PA-C [address] [facility] [place] [address] Chronic cough*; Nausea; Chest heaviness; Wheezing; HTN, goal below 130/80; PEG (percutaneous endoscopic gastrostomy) status ([facility]); COPD, group C, by GOLD 2017 classification ([facility]) Allergies Active Allergy Reactions Criticality Noted Date Comments Sulfamethoxazole-Trimethoprim Hives Medium 2016 Levofloxacin Rash Low 03/03/2017 Lisinopril 03/12/2021 Raises bp Nitrates, Organic 09/07/2000 Unconsciousness Sertraline Low 02/09/2019 Other reaction(s): NOSE BLEEDS Sulfamethoxazole Itching High 02/09/2019 Terazosin 12/08/2001 priaprism Trimethoprim Itching High 02/09/2019 documented as of this encounter (statuses as of 07/14/2023) Medications Medication Sig Dispensed Refills Start Date End Date Status Nutritional Supplements (BOOST PLUS) LIQDIndications:Dy sphagia,At high risk for aspiration 2 cans 4 x daily @ 7am,11 am,3 pm, 7 pm 240 Can 11 9 Active Additional Information Patient taking differently: G Tube, 2 cans 4 x daily @ 7am,11 am,3 pm, 7 pm, Reported on 06/01/2022 Acetaminophen 500 MG Oral Capsule Administer 2 Capsules into G tube every 6 hours as needed for Pain, Moderate. 0 1 Active Glucose 40 % Oral Gel (Glutose 15) As Directed 0 1 Active Aspirin EC 81 MG Oral Tablet Delayed Release Take 1 Tab by mouth daily. 90 Tab 3 1 Active Additional Information Patient not taking.Reported on 07/14/2023 Spiriva Respimat 2.5 MCG/ACT Inhalation Aerosol Solution (Tiotropium [place] Monohydrate) Inhale 2 Puffs by mouth in the morning. 4 g 5 2 Active Additional Information Patient not taking.Reported on 07/14/2023 Formoterol Fumarate 20 MCG/2ML Inhalation Nebulization SolutionIndication s:Unspecified chronic bronchitis (HCC) Inhale 2 mL by mouth in the morning and 2 mL before bedtime. 120 mL 5 2 Active Atorvastatin Calcium 40 MG Oral Tablet (Lipitor)Indicatio ns:Coronary artery disease involving qagan tayagungin coronary artery of qagan [place] heart without angina pectoris Take 1 tablet by mouth once daily 90 Tablet 3 3 Active Latanoprost 0.005 % Ophthalmic Solution (Xalatan) Instill 1 Drop into both eyes every evening. 10 mL 3 3 Active OneTouch Ultra In Vitro Strip (Glucose Blood)Indications: Hypoglycemia USE DIRECTED FOUR TIMES A DAY NEEDED FOR HYPERGLYCEMIA (HIGH SUGAR). DX:E11.9 100 Strip 5 3 Active Levothyroxine Sodium 88 MCG Oral Tablet Administer 1 Tablet into G tube in the morning. (at least 30 min prior to breakfast or other meds). 90 Tablet 1 3 Active oxyCODONE HCl 5 MG Oral Tablet (Oxy IR) Take 1 Tablet by mouth every 4 hours as needed for moderate or severe pain 10 Tablet 0 3 Active Additional Information Patient not taking.Reported on 07/14/2023 Citalopram Hydrobromide 20 MG Oral Tablet (CeleXA)Indication s:Panic attacks Take 1 tablet by mouth once daily 90 Tablet 1 3 Active Albuterol Sulfate 1.25 MG/3ML Inhalation Nebulization SolutionIndication s:Wheezing,Bronchi tis, complicated,COPD exacerbation ([facility]),COPD, group C, by GOLD 2017 classification ([facility]) Inhale 1.25 mg via nebulizer every 4 hours as needed for Shortness of Breath or Wheezing. 120 vials Dx J44.1, J44.9, R06.2, and J40 360 mL 5 3 Active Fludrocortisone Acetate 0.1 MG Oral Tablet (Florinef)Indicati ons:Orthostatic hypotension Take 1 Tablet by mouth in the morning. 30 Tablet 5 3 Active Midodrine HCl 5 MG Oral Tablet (Proamatine)Indica tions:Orthostatic hypotension TAKE 2 TABLETS BY MOUTH THREE TIMES DAILY NEEDED FOR HYPOTENSION (FOR BLOOD PRESSURE LESS THAN 80MM HG SYSTOLIC) 60 Tablet 3 3 Active Dexcom G7 SensorIndications: Hypoglycemia Use 1 Units as directed daily. 1 Each 5 3 Active Dexcom G7 Manufacturing Engineering Intern DeviceIndications: Hypoglycemia Use 1 Units as directed daily. 1 Each 2 3 Active predniSONE 10 MG Oral Tablet (Deltasone) Take 4 tabs for 3 days, 3 tabs for 3 days, 2 tabs for 3 days 1 tab for 3 days 30 Tablet 0 3 Active predniSONE 5 MG Oral Tablet (Deltasone)Indicat ions:COPD, group C, by GOLD 2017 classification ([facility]),Chronic cough 1 tab daily for 2 weeks; then 1/2 tab daily until finished 21 Tablet 0 3 07/14/20 23 Discontinued Hospital, Clinic, or Other Facility Administered Medication Ordered Dose Route Frequency Start Date End Date Status ondansetron ODT (Zofran) tab 4 mgIndications:Nausea 4 mg OR ONCE 07/14/2023 07/14/2023 Ende d albuterol-ipratropium (Duoneb) inhalation solution 3 mLIndications:Wheezing 3 mL NEBULIZER ONCE 07/14/2023 07/14/2023 En ded documented as of this encounter (statuses as of 07/14/2023) Active Problems Problem Noted Date Diagnosed Date [...] as of this encounter (statuses as of 07/14/2023) Resolved Problems Problem Noted Date Diagnosed Date [...] 10/23/2008 02/16/2013 ACTIVE CASE MANAGEMENT-Yanet Landa Rn- [phone] 09/28/2007 02/16/2008 Malignant neoplasm soft tissue head [...] as of this encounter (statuses as of 07/14/2023) Immunizations Name Administration Dates Next Due COVID-19 mRNA, LNP-s, No Pre serve, 2-Dose Series (Pfizer) 02/18/2022,10/11/2020,09/13/2020 Pneumococcal Conjugate Vacc, 13 Valent (Prevnar) [...] 5 Q uit: 06/18/1979 Smokeless Tobacco: Never Tobacco Cessation:Counseling Given: Not Answered Alcohol Use Standard Drinks/Week Comments Not Currently [...] on file documented as of this encounter Last Filed Vital Signs Vital Sign Reading Time Taken Comments Blood Pressure 100/57 07/14/2023 11:07 AM EST Pulse 84 07/14/2023 11:07 AM EST Temperature 37.2 C (99 F) 07/14/2023 11:07 AM EST Respiratory Rate 24 07/14/2023 11:07 AM EST Oxygen Saturation 96% 07/14/2023 11:07 AM EST Inhaled Oxygen Concentration - - Weight 81.6 kg (180 lb) 07/14/2023 11:07 AM EST Height - - Body Mass Index 25.1 06/09/2023 12:18 PM EST documented in this encounter Progress Notes * Patricia Leal PA-C - 07/14/2023 11:29 AM EST Images from the original note were not included. History of Present Illness Rodney Canseco is a 78 year old male that presents for Acute (Pt was here 3 weeks ago about cough.Did CT scan with contrast which was ok last night O2 was good, pulse was good pt still having coughand c/o possible vomiting. Pat tells his that it is all right in his throat and when he is able to cough phlegm up it helps. Does not know what color they are. /) Patient is a 78 year old male who presents with his with a persistent cough. Occ productive, appetite decreased. Had a ct scan on 06/22 which was stable. Physical Exam Vitals: 07/14/23 1107 Temp: 37.2 C (99 F) Pulse: 84 Resp: 24 SpO2: 96% BP: 100/57 BP Readings from Last 3 Encounters: 07/14/23 100/57 11/22/23 90/50 05/27/23 84/56 Wt Readings from Last 3 Encounters: 06/09/23 83 kg (183 lb 0.6 oz) 05/27/23 80.7 kg (178 lb) 04/27/23 83.9 kg (185 lb 0.6 oz) General: alert, no distress, well nourished, well developed, cooperative, and mild distress Head: Normocephalic, No masses, lesions, tenderness or abnormalities Eye Exam: PERRLA, extraocular movements intact, conjunctiva are pink and non- injected, sclera clear Ears: External ears normal, Canals clear, R TM dull, L TM dull Nose: no mucosal erythema, no mucosal edema, no purulent discharge Oropharynx: no exudate, no erythema, lips, buccal mucosa, and tongue normal, and mucous membranes are moist Neck: supple, no adenopathy, no bruits, thyroid normal size, non-tender, without nodularity Heart: regular rate & rhythm, no murmur, and no gallops Lungs: chest symmetric with normal AP diameter, no chest deformities noted, normal respiratory rateand rhythm, no chest wall tenderness, diaphragmatic excursion normal, coarse sounds heard Abdomen: abdomen soft, non-tender, normal bowel sounds, no masses or organomegaly, no rebound or guarding, no CVA tenderness, no bladder distention identified, no bruits, and PEG tube noted Extremities: less than 2 second capillary refill, no joint deformities, effusion, or inflammation, no edema, no skin discoloration, no clubbing, no cyanosis I have reviewed the following results: None Assessment and Plan Chronic cough (Primary) - CBC; Future; Expected date: 07/14/2023 - COMPREHENSIVE METABOLIC PANEL; Future; Expected date: 07/14/2023 - BNP, NT-PRO; Future; Expected date: 07/14/2023 - CBC - COMPREHENSIVE METABOLIC PANEL - BNP, NT-PRO Nausea - CBC; Future; Expected date: 07/14/2023 - LIPASE; Future; Expected date: 07/14/2023 - ondansetron ODT (Zofran) tab 4 mg - CBC - LIPASE Chest heaviness - EKG Wheezing - NEBULIZER TREATMENTS - albuterol-ipratropium (Duoneb) inhalation solution 3 mL HTN, goal below 130/80 PEG (percutaneous endoscopic gastrostomy) status (HCC) COPD, group C, by GOLD 2017 classification (HCC) Other orders - predniSONE 10 MG Oral Tablet (Deltasone); Take 4 tabs for 3 days, 3 tabs for 3 days, 2 tabs for 3days 1 tab for 3 days Wrap-Up Time: I spent a total of 40-54 minutes (exact time 46 mins) on the date of service in preparation, delivery, and documentation of the care provided to Rodney Canseco excluding any time spent in the performance of separately billed services. documented in this encounter Nursing Notes * Letty Norris LPN - 07/14/2023 11:07 AM EST Chief Complaint Patient presents with Acute Pt was here 3 weeks ago about cough. Did CT scan with contrast which was ok last night O2 was good,pulse was good pt still having cough and c/o possible vomiting. Pat tells his that it is all right in his throat and when he is able to cough phlegm up it helps. Does not know what color they are. documented in this encounter Plan of Treatment Upcoming Encounters Date Type Department Care Team (Late st Contact Info) Description 07/16/2023 10:45 AM EST Office Visit [address] [address] Marta Moran MD [address] [place] [address] 09/07/2023 8:00 AM EST Office Visit Audiology, [place] [address] [place] [address] Cayla Merlos Au.D. [address] [place] [address] 11/04/2023 3:30 PM EDT Office Visit Cardiology [facility], [place] [address] [place] [address] Primitivo Calderon MD [address] [place] [address] Pending Results Name Type Priority Associated Diagnoses Date /Time BNP, NT-PRO Lab Routine Chronic cough 07/14/2023 11:59 AM EST LIPASE Lab Routine Nausea 07/14/2023 11:59 AM EST Scheduled Orders Name Type Priority Associated Diagnoses Orde r Schedule BNP, NT-PRO Lab Routine Chronic cough Expected: 07/14/2023 (Approximate), Expires: 07/13/2024 LIPASE Lab Routine Nausea Expected: 07/14/2023 (Approximate), Expires: 07/13/2024 EKG EKG Routine Chest heaviness Ordered: 07/14/2023 NEBULIZER TREATMENTS Procedures Routine Wheezing Ordered: 07/14/2023 Scheduled Procedures Name Priority Associated Diagnoses Date/Ti [...] 12/22/2023 12/21/2022 Depression Screening 02/03/2024 02/02/2023 GFR 07/14/2024 07/14/2023, 05/20, 05/27/2023, Additional history exists Albumin/Creatinine Ratio 02/04/2025 02/04/2022 [...] this encounter Medical Devices Implanted Type Area Shoeshiner Device Identifier Shelf Expiration Date Model / Serial / Lot [id number] - [id number] Implanted:Qty : 1 on 09/26/2007 at [place] [facility] Tissue - Human Right: Neck [employer] 10/17/2008 [id number] / / [id number] Description:alloderm 3x7cm Elect Nucleus Slim Str [id number] - [id number] Implanted:Qty : 1 on 12/21/2022 by Ollie Borja MD at [place] [facility] Left: Ear [employer] 11/04/2024 [id number] / / [id number] documented as of this encounter Procedures Procedure Name Priority Date/Time Associated Diagnosis Comments COMPREHENSIVE METABOLIC PANEL Routine 07/14/2023 11:59 AM EST Chronic cough CBC Routine 07/14/2023 11:59 AM EST Chronic cough Nausea documented in this encounter Results * (ABNORMAL) COMPREHENSIVE METABOLIC PANEL (07/14/2023 11:59 AM EST) BUN 10 6 - 20 mg/dL 07/14/2023 1:23 PM EST [facility]02 Creatinine 1.1 0.6 - 1.2 mg/dL 07/14/2023 1:23 PM EST [facility]-02 Estimated Glomerular Filtration Rate 73 >=60 mL/min 07/14/2023 1:23 PM EST [facility] 56- Comment:eGFR is calculated b ased on the CKD-EPI 2020 equation Sodium 139 135 - 146 mmol/L 07/14/2023 1:23 PM EST [facility] 56- Potassium 3.8 3.5 - 5.1 mmol/L 07/14/2023 1:23 PM EST [facility] 56 Chloride 100 98 - 107 mmol/L 07/14/2023 1:23 PM EST [facility] 56 CO2 28 22 - 32 mmol/L 07/14/2023 1:23 PM [facility] 5602 Anion Gap 11 7 - 15 mmol/L 07/14/2023 1:23 PM [facility] 56 Glucose 123(H) 70 - 120 mg/dL 07/14/2023 1:23 PM EST [facility] 56 Albumin 4.0 3.8 - 5.0 g/dL 07/14/2023 1:23 PM [facility] 56 AST 21 10 - 50 U/L 07/14/2023 1:23 PM [facility] 56 Alkaline Phosphatase 94 35 - 130 U/L 07/14/2023 1:23 PM [facility] 56 Bilirubin, Total 1.0 <=1.2 mg/dL 07/14/2023 1:23 PM [facility] 56 Calcium 9.3 8.4 - 10.2 mg/dL 07/14/2023 1:23 PM [facility] 56 Protein 6.8 6.0 - 8.3 g/dL 07/14/2023 1:23 PM [facility] 56 ALT 16 10 - 50 U/L 07/14/2023 1:23 PM [facility] 5602 Blood Venous blood specimen / Unknown Venipuncture / Unknown 07/14/2023 11:59 AM EST 07/14/2023 11:59 AM EST October Cornel Leal PA-C LAB BLOOD ORDERABLES [facility] [address] [place] [address] * CBC (07/14/2023 11:59 AM EST) WBC 7.48 4.00 - 10.80 K/uL 07/14/2023 12:10 PM EST [facility] 56 RBC 4.51 4.50 - 5.25 M/uL 07/14/2023 12:10 PM EST [facility] 56 HGB 14.5 14.0 - 16.8 g/dL 07/14/2023 12:10 PM EST [facility] 56 HCT 43.9 40.0 - 48.4 % 07/14/2023 12:10 PM EST [facility] 56 MCV 97.3 82.0 - 99.5 fL 07/14/2023 12:10 PM EST [address] MCH 32.2 27.0 - 34.0 pg 07/14/2023 12:10 PM EST [address] MCHC 33.0 32.0 - 36.0 g/dL 07/14/2023 12:[address] RDW 13.8 11.5 - 15.5 % 07/14/2023 12:10 PM EST [address] PLT 175 140 - 400 K/uL 07/14/2023 12:[address] MPV 11.1 6.6 - 11.1 fL 07/14/2023 12:10 PM [facility] 56 Blood Venous blood specimen / Unknown Venipuncture / Unknown 07/14/2023 11:59 AM EST 07/14/2023 11:59 AM EST Patricia Leal PA-C LAB BLOOD ORDERABLES [facility] [address] [place] [address] documented in this encounter Visit Diagnoses Diagnosis Chronic cough- Primary Cough Nausea Nausea alone Chest heaviness Other chest pain Wheezing HTN, goal below 130/80 Unspecified essential hypertension PEG (percutaneous endoscopic gastrostomy) status (HCC) COPD, group C, by GOLD 2017 classification (HCC) documented in this encounter Administered Medications Inactive Administered Medications - up to 3 most recent administrations Medication Order MAR Action Action Date Dose Rate Site albuterol-ipratropium (Duoneb) inhalation solution 3 mL 3 mL, Nebulizer, ONCE, On Wed07/14/23 at 1215, For 1 dose, 3 mL = 0.5 mg ipratropium/ 2.5 mg albuterol Given 07/14/2023 12:08 PM EST 3 mL ondansetron ODT (Zofran) tab 4 mg 4 mg, Oral, ONCE, On Wed07/14/23 at 1215, For 1 dose Given 07/14/2023 12:07 PM EST 4 mg Othe r-Specify documented in this encounter Advance Directives Latest Code Status on File Code Status Date Activated Date Inactivated Comments Full Code 09/26/2007 1:43 PM 09/27/2007 5:30 PM Code Status History Code Status Date Activated Date Inactivated Comments Full Code 08/09/2007 1:38 PM 08/12/2007 5:16 PM Care Teams Machine Hose Cutter Relationship Specialty Start Date End Date Sanjiv Hart III, MD [address] [place] [address] PCP - General Family Medicine 09/09/18 documented as of this encounter
--- OUTSIDE RECORDS SUMMARY | 2023-07-15 13:28 | External Medical Summary | Summary of Care ---
Author Name Unknown Organization [facility] Address [address] [place] [facility] [place] [address] Phone [phone] Care Team Providers Care Tank Filler Name Role Phone Tanner CANTU MD, Sanjiv Moser Primary Care Provider [phone] Reason for Visit * Reason Onset Date Comments Advice 07/05/2023 Encounter Details Date Type Department Care Team (Late st Contact Info) Description 07/05/2023 Telephone Family Practice [facility] [place] [address] [facility] [place] [address] Sanjiv Hart III, MD [address] [facility] [place] [address] Advice Allergies Active Allergy Reactions Criticality Noted Date Comments Sulfamethoxazole-Trimethoprim Hives Medium 2016 Levofloxacin Rash Low 03/03/2017 Lisinopril 03/12/2021 Raises bp Nitrates, Organic 09/07/2000 Unconsciousness Sertraline Low 02/09/2019 Other reaction(s): NOSE BLEEDS Sulfamethoxazole Itching High 02/09/2019 Terazosin 12/08/2001 priaprism Trimethoprim Itching High 02/09/2019 documented as of this encounter (statuses as of 07/07/2023) Medications Medication Sig Dispensed Refills Start Date [...] Respimat 2.5 MCG/ACT Inhalation Aerosol Solution (Tiotropium [place] Monohydrate) Inhale 2 Puffs by mouth in the morning. 4 g 5 06/01/2022 Active Formoterol Fumarate 20 MCG/2ML Inhalation Nebulization SolutionIndications: Unspecified chronic bronchitis (HCC) Inhale 2 mL by mouth in the morning and 2 mL before bedtime. 120 mL 5 06/30/2022 Active Atorvastatin Calcium 40 MG Oral Tablet (Lipitor)Indications :Coronary artery disease involving tolowa dee-ni' coronary artery of tolowa dee-ni' heart without angina pectoris Take 1 tablet [...] ns:COPD, group C, by GOLD 2017 classification ([facility]),Chronic cough 1 tab daily for 2 weeks; then 1/2 tab daily until finished 21 Tablet 0 06/09/2023 Active Dexcom G7 SensorIndications:Hy poglycemia Use 1 Units as directed daily. 1 Each 5 06/09/2023 Active Dexcom G7 Produce Weigher DeviceIndications:Hy poglycemia Use 1 Units as directed daily. 1 Each 2 06/09/2023 Active documented as of this encounter (statuses as of 07/07/2023) Active Problems Problem Noted Date Diagnosed Date [...] as of this encounter (statuses as of 07/07/2023) Resolved Problems Problem Noted Date Diagnosed Date [...] 10/23/2008 02/16/2013 ACTIVE CASE MANAGEMENT-Yanet Landa Rn- [phone] 09/28/2007 02/16/2008 Malignant neoplasm soft tissue head [...] as of this encounter (statuses as of 07/07/2023) Immunizations Name Administration Dates Next Due COVID-19 mRNA, LNP-s, No Pre serve, 2-Dose Series ([facility]) 02/18/2022,10/11/2020,09/13/2020 Pneumococcal Conjugate Vacc, 13 Valent (Prevnar) [...] Description 07/16/2023 10:45 AM EST Office Visit [facility] [address] [place] [address] Marta Moran MD [address] [place] [address] 09/07/2023 8:00 AM EST Office Visit Audiology, [place] [address] [place] [address] Cayla Merlos Au.D. [address] [place], [place] [id number] 11/04/2023 3:30 PM EDT Office Visit Cardiology [facility], [place] [address] [place], [place] [id number] Primitivo Calderon MD [address] [place], [place] [id number] Scheduled Procedures Name Priority Associated Diagnoses Date/Ti [...] this encounter Medical Devices Implanted Type Area Equipment Service Lead Device Identifier Shelf Expiration Date Model / Serial / Lot [id number] - [id number] Implanted:Qty : 1 on 09/26/2007 at OR [facility] Tissue - Human Right: Neck [employer] MARIANO 10/17/2008 [id number] / / [id number] Description:alloderm 3x7cm Elect Nucleus Slim Str [id number] - [id number] Implanted:Qty : 1 on 12/21/2022 by Ollie Borja MD at [facility] Left: Ear [employer] 11/04/2024 [id number] / / [id number] documented as of this encounter Advance Directives Latest Code Status on File Code Status Date Activated Date Inactivated Comments Full Code 09/26/2007 1:43 PM 09/27/2007 5:30 PM Code Status History Code Status Date Activated Date Inactivated Comments Full Code 08/09/2007 1:38 PM 08/12/2007 5:16 PM Care Teams Tank Filler Relationship Specialty Start Date End Date Sanjiv Hart III, MD [address] [facility] [place] [address] PCP - General Family Medicine 09/09/18 documented as of this encounter
--- OUTSIDE RECORDS SUMMARY | 2023-07-15 13:29 | External Medical Summary | Summary of Care ---
Author Name Unknown Organization [facility] Address [address] [facility] [address] Phone [phone] Care Team Providers Care Bioinformatics Software Engineer Name Role Phone Tanner CANTU MD, Sanjiv Moser Primary Care Provider [phone] Reason for Referral * Precert (Within 10 days (routine)) - Authorized Specialty Diagnoses / Procedures Referred By Contac t Referred To Contact Radiology Diagnoses COPD, group C, by GOLD 2017 classification ([facility]) Chronic cough Procedures CT CHEST W CONTRAST Patricia Leal PA-C [address] [facility] [place] [address] Referral ID Status Reason Start Date Expiration Date V isits Requested Visits Authorized [id number] Authorized 12/06/2023 999 999 Reason for Visit * Reason Comments Emergency Department Follow-Up Encounter Details Date Type Department Care Team (Latest Contact Info) Description 06/09/2023 12:20 PM EST Office [facility] [place] [address] [facility] [place] [address] Patricia Leal PA-C [address] [facility] [place] [address] HTN, goal below 130/80*; COPD, group C, by GOLD 2017 classification (HCC); Chronic cough; Hypoglycemia Allergies Active Allergy Reactions Criticality Noted Date Comments Sulfamethoxazole-Trimethoprim Hives Medium 2016 Levofloxacin Rash Low 03/03/2017 Lisinopril 03/12/2021 Raises bp Nitrates, Organic 09/07/2000 Unconsciousness Sertraline Low 02/09/2019 Other reaction(s): NOSE BLEEDS Sulfamethoxazole Itching High 02/09/2019 Terazosin 12/08/2001 priaprism Trimethoprim Itching High 02/09/2019 documented as of this encounter (statuses as of 06/09/2023) Medications Medication Sig Dispensed Refills Start Date [...] Respimat 2.5 MCG/ACT Inhalation Aerosol Solution (Tiotropium [place] Monohydrate) Inhale 2 Puffs by mouth in the morning. 4 g 5 06/01/2022 Active Formoterol Fumarate 20 MCG/2ML Inhalation Nebulization SolutionIndications: Unspecified chronic bronchitis (HCC) Inhale 2 mL by mouth in the morning and 2 mL before bedtime. 120 mL 5 06/30/2022 Active Atorvastatin Calcium 40 MG Oral Tablet (Lipitor)Indications :Coronary artery disease involving [place] coronary artery of [place] heart without angina pectoris Take 1 tablet [...] MG/3ML Inhalation Nebulization SolutionIndications: Wheezing,Bronchitis, complicated,COPD exacerbation ([facility]),COPD, group C, by GOLD 2017 classification ([facility]) Inhale 1.25 mg via nebulizer every 4 [...] ns:COPD, group C, by GOLD 2017 classification ([facility]),Chronic cough 1 tab daily for 2 weeks; then 1/2 tab daily until finished 21 Tablet 0 06/09/2023 Active Dexcom G7 SensorIndications:Hy poglycemia Use 1 Units as directed daily. 1 Each 5 06/09/2023 Active Dexcom G7 Dyehouse Worker DeviceIndications:Hy poglycemia Use 1 Units as directed daily. 1 Each 2 06/09/2023 Active Azithromycin 250 MG Oral Tablet (Zithromax) Take 2 tabs by mouth on the first day, then 1 tab daily on days two through five 6 Tablet 0 06/09/2023 3 Active documented as of this encounter (statuses as of 06/09/2023) Active Problems Problem Noted Date Diagnosed Date [...] as of this encounter (statuses as of 06/09/2023) Resolved Problems Problem Noted Date Diagnosed Date [...] determined 10/23/2008 02/16/2013 ACTIVE CASE MANAGEMENT-Yanet Landa Noble- [phone] 09/28/2007 02/16/2008 Malignant neoplasm soft tissue head [...] as of this encounter (statuses as of 06/09/2023) Immunizations Name Administration Dates Next Due COVID-19 mRNA, LNP-s, No Pre serve, 2-Dose Series (Pfizer) 02/18/2022,10/11/2020,09/13/2020 Pneumococcal Conjugate Vacc, 13 Valent (Prevnar) 10/26/2014 Pneumococcal Polysaccharide PPV23 (Pneumovax) 02/24/2016,04/19/2008 Rabies Vaccine Diploid cell (Imovax) ,02/19/2017,02/12/2017,02/08,02/05/2017 SEASONAL INFLUENZA, PF, 6 M & Above, IM , (FLULAVAL or FLUZONE) 05/04/2019,05/16/2018 Seasonal Influenza Virus Vac cine, Unspecified Formulation 05/01/2022 Seasonal Influenza, Quadriva lent Hd (Fluzone Hd) [...] Sign Reading Time Taken Comments Blood Pressure 90/50 06/09/2023 12:18 PM EST Pulse 57 06/09/2023 12:18 PM EST Temperature 36.6 C (97.8 F) 06/09/2023 12:[address] Respiratory Rate 16 06/09/2023 12:18 PM EST Oxygen Saturation 96% 06/09/2023 12:18 PM EST Inhaled Oxygen Concentration - - Weight 83 kg (183 lb 0.6 oz) 06/09/2023 12:18 PM EST Height 180.3 cm (5' 11") 06/09/2023 12:18 PM EST Body Mass Index 25.53 06/09/2023 12:18 PM EST documented in this encounter Progress Notes * Patricia Leal PA-C - 06/09/2023 12:37 PM EST Images from the original note were not included. History of Present Illness Rodney Canseco is a 77 year old male that presents for Emergency Department Follow-Up Patient is a 77 year old male who presents for a follow up after a ER visit . Was seen for low blood pressure. Continues with the same pattern. Did EKG, cxr all normal. He continues to have a cough. Has had for [address] scan done in 03/23/23 which showed some improvement. Has copd Physical Exam Vitals: 06/09/23 1218 Temp: 36.6 C (97.8 F) Pulse: 57 Resp: 16 SpO2: 96% BP: 90/50 BMI: 25.54 BP Readings from Last 3 Encounters: 06/09/23 90/50 05/27/23 84/56 04/27/23 138/82 Wt Readings from Last 3 Encounters: 06/09/23 83 kg (183 lb 0.6 oz) 05/27/23 80.7 kg (178 lb) 04/27/23 83.9 kg (185 lb 0.6 oz) General: alert, healthy, no distress, well nourished, well developed, and cooperative Head: Normocephalic, No masses, lesions, tenderness or abnormalities Eye Exam: PERRLA, extraocular movements intact, conjunctiva are pink and non- injected, sclera clear Neck: supple, no adenopathy, no bruits, thyroid normal size, non-tender, without nodularity Heart: regular rate & rhythm, no murmur, and no gallops Lungs: chest symmetric with normal AP diameter, no chest deformities noted, normal respiratory rateand rhythm, no chest wall tenderness, diaphragmatic excursion normal, coarse sounds heard, expiratory wheezes bilaterally Extremities: less than 2 second capillary refill, no joint deformities, effusion, or inflammation, no edema, no skin discoloration, no clubbing, no cyanosis Neuro Exam: alert & oriented x 3 with fluent speech, no focal motor/sensory deficits, gait normal I have reviewed the following results: Imaging results in the last 6 months XR CHEST 2 VIEWS Result Date: 04/27/2023 IMPRESSION 1. No acute cardiopulmonary disease seen. 2. Chronic postinfectious/inflammatory changesthe lung bases with review of prior CT. CT CHEST WO CONTRAST Result Date: 03/25/2023 IMPRESSION: Improving aeration of the lungs, with decreasing ground-glass and reticulonodular markings. Some residual markings still present at the right lung base. Consider further follow-up to establish complete resolution or long-term stability THIS DOCUMENT HAS BEEN ELECTRONICALLY SIGNED BY JOHNATHAN BENAVIDEZ MD XR SKULL LESS THAN 4 VIEWS Result Date: 12/22/2022 IMPRESSION Expected position of the left cochlear implant electrode array within the cochlea. Assessment and Plan HTN, goal below 130/80 (Primary) COPD, group C, by GOLD 2017 classification (HCC) - predniSONE 5 MG Oral Tablet (Deltasone); 1 tab daily for 2 weeks; then 1/2 tab daily until finished - BUN; Future; Expected date: 06/09/2023 - CREATININE; Future; Expected date: 06/09/2023 - CT CHEST W CONTRAST; Future; Expected date: 12/06/2023 Chronic cough - predniSONE 5 MG Oral Tablet (Deltasone); 1 tab daily for 2 weeks; then 1/2 tab daily until finished - BUN; Future; Expected date: 06/09/2023 - CREATININE; Future; Expected date: 06/09/2023 - CT CHEST W CONTRAST; Future; Expected date: 12/06/2023 Hypoglycemia - Dexcom G7 Sensor; Use 1 Units as directed daily. - Dexcom G7 Dyehouse Worker Device; Use 1 Units as directed daily. Other orders - Azithromycin 250 MG Oral Tablet (Zithromax); Take 2 tabs by mouth on the first day, then 1 tab daily on days two through five Check-out note: Schedule ct scan Continue current medications. Wrap-Up Time: I spent a total of 30-39 minutes (exact time 38 mins) on the date of service in preparation, delivery, and documentation of the care provided to Rodney Canseco excluding any time spent in the performance of separately billed services. documented in this encounter Nursing Notes * Ana Luisa Marsh LPN - 06/09/2023 12:16 PM EST Patient presents today for an ER follow up. He is still coughing after the prednisone and antibiotic. He was running a fever last night but hasn't had one today. documented in this encounter Plan of Treatment Upcoming Encounters Date Type Department Care Team (Late st Contact Info) Description 06/15/2023 3:00 PM EST Office Visit Cardiology [facility], [place] [address] [place] [address] Primitivo Calderon MD [address] [place] [address] 06/24/2023 1:30 PM EST Imaging Radiology [address], [address] [address] 07/01/2023 11:00 AM EST Office Visit Audiology, [place] [address] [place] [address] Cayla Merlos Au.D. [address] [place] [address] 07/01/2023 1:15 PM EST Office Visit [facility] [address] [place] [address] Marta Moran MD [address] [place] [id number] Pending Results Name Type Priority Associated Diagnoses Date /Time BUN Lab STAT COPD, group C, by GOLD 2017 classification ([facility]) Chronic cough 06/09/2023 1:15 PM EST CREATININE Lab STAT COPD, group C, by GOLD 2017 classification ([facility]) Chronic cough 06/09/2023 1:15 PM EST Scheduled Orders Name Type Priority Associated Diagnoses Orde r Schedule BUN Lab STAT COPD, group C, by GOLD 2017 classification ([facility]) Chronic cough Expected: 06/09/2023 (Approximate), Expires: 06/09/2024 CREATININE Lab STAT COPD, group C, by GOLD 2017 classification ([facility]) Chronic cough Expected: 06/09/2023 (Approximate), Expires: 06/09/2024 CT CHEST W CONTRAST Medical Imaging Routine COPD, group C, by GOLD 2017 classification ([facility]) Chronic cough Expected: 12/06/2023 (Approximate), Expires: 07/09/2024 Scheduled Procedures Name Priority Associated Diagnoses Date/Ti [...] 12/22/2023 12/21/2022 Depression Screening 02/03/2024 02/02/2023 GFR 05/27/2024 05/27/2023, 02/17, 12/17/2022, Additional history exists Albumin/Creatinine Ratio 02/04/2025 02/04/2022 [...] this encounter Medical Devices Implanted Type Area State Game Warden Device Identifier Shelf Expiration Date Model / Serial / Lot [id number] - [id number] Implanted:Qty : 1 on 09/26/2007 at [place] [facility] [place] Tissue - Human Right: Neck [employer]O 10/17/2008 [id number] / / [id number] Description:alloderm 3x7cm Elect Nucleus Slim Str [id number] - [id number] Implanted:Qty : 1 on 12/21/2022 by Ollie Borja MD at OR [facility] [place] Left: Ear [employer] 11/04/2024 [id number] / / [id number] documented as of this encounter Visit Diagnoses Diagnosis HTN, goal below 130/80- Primary Unspecified essential hypertension COPD, group C, by GOLD 2017 classification (HCC) Chronic cough Cough Hypoglycemia Hypoglycemia, unspecified documented in this encounter Advance Directives Latest Code Status on File Code Status Date Activated Date Inactivated Comments Full Code 09/26/2007 1:43 PM 09/27/2007 5:30 PM Code Status History Code Status Date Activated Date Inactivated Comments Full Code 08/09/2007 1:38 PM 08/12/2007 5:16 PM Care Teams Bioinformatics Software Engineer Relationship Specialty Start Date End Date Sanjiv Hart III, MD [address] [place] [address] PCP - General Family Medicine 09/09/18 documented as of this encounter
--- OUTSIDE RECORDS SUMMARY | 2023-07-15 13:29 | External Medical Summary | Summary of Care ---
Author Name Unknown Organization [facility] Address [address] [facility] [address] Phone [phone] Care Team Providers Care Zigzag Stitcher Name Role Phone Tanner CANTU MD, Sanjiv Moser Primary Care Provider [phone] Reason for Visit * Reason Onset Date Comments Test Results 06/29/2023 Encounter Details Date Type Department Care Team (Late st Contact Info) Description 06/29/2023 Telephone Family Practice [facility] [place] [address] [facility] [place] [address] Sanjiv Hart III, MD [address] [place] [address] Test Results Allergies Active Allergy Reactions Criticality Noted Date Comments Sulfamethoxazole-Trimethoprim Hives Medium 2016 Levofloxacin Rash Low 03/03/2017 Lisinopril 03/12/2021 Raises bp Nitrates, Organic 09/07/2000 Unconsciousness Sertraline Low 02/09/2019 Other reaction(s): NOSE BLEEDS Sulfamethoxazole Itching High 02/09/2019 Terazosin 12/08/2001 priaprism Trimethoprim Itching High 02/09/2019 documented as of this encounter (statuses as of 07/01/2023) Medications Medication Sig Dispensed Refills Start Date [...] Respimat 2.5 MCG/ACT Inhalation Aerosol Solution (Tiotropium [place] Monohydrate) Inhale 2 Puffs by mouth in the morning. 4 g 5 06/01/2022 Active Formoterol Fumarate 20 MCG/2ML Inhalation Nebulization SolutionIndications: Unspecified chronic bronchitis (HCC) Inhale 2 mL by mouth in the morning and 2 mL before bedtime. 120 mL 5 06/30/2022 Active Atorvastatin Calcium 40 MG Oral Tablet (Lipitor)Indications :Coronary artery disease involving [place] coronary artery of [place] heart without angina pectoris Take 1 tablet [...] ns:COPD, group C, by GOLD 2017 classification (HCC),Chronic cough 1 tab daily for 2 weeks; then 1/2 tab daily until finished 21 Tablet 0 06/09/2023 Active Dexcom G7 SensorIndications:Hy poglycemia Use 1 Units as directed daily. 1 Each 5 06/09/2023 Active Dexcom G7 Supervisor Files DeviceIndications:Hy poglycemia Use 1 Units as directed daily. 1 Each 2 06/09/2023 Active documented as of this encounter (statuses as of 07/01/2023) Active Problems Problem Noted Date Diagnosed Date [...] as of this encounter (statuses as of 07/01/2023) Resolved Problems Problem Noted Date Diagnosed Date [...] 10/23/2008 02/16/2013 ACTIVE CASE MANAGEMENT-Yanet Landa Rn- [phone] 09/28/2007 02/16/2008 Malignant neoplasm soft tissue head [...] as of this encounter (statuses as of 07/01/2023) Immunizations Name Administration Dates Next Due COVID-19 mRNA, LNP-s, No Pre serve, 2-Dose Series ([facility]) 02/18/2022,10/11/2020,09/13/2020 Pneumococcal Conjugate Vacc, 13 Valent (Prevnar) [...] encounter Miscellaneous Notes * Telephone Encounter - Elda Santos LPN - 07/01/2023 8:12 AM EST Patient aware and verbalized understanding, will comply * Telephone Encounter - Fanta Erickson LPN - 06/30/2023 3:50 PM EST Called pt. No answer. Left message for pt to return call. Letter sent today, CT of your chest which was normal * Telephone Encounter - Maggi Singer OSA - 06/29/2023 3:17 PM EST Who is Requesting Test Results: Patient and Primary Care Provider : Sanjiv Hart III, MD Tests Results Requested : ct chest with contrast Date of Test : 06-24-23 Location of Test: [facility] Ordering Provider: alexandraPatricia Callback Number: [phone] Patient has been made aware that the turnaround time for test results are typically as follows: Laboratory results = within 2-3 days ([facility]), 3-5 days (Non[facility], ie. [facility]) Urine Cultures = within 2-3 days depending on growth within the culture Pathology results (biopsy results/PAP) = 1-2 weeks Radiology results = about 1 week Cologuard results = within 2 weeks from the shipment date COVID testing = about 24 hours documented in this encounter Plan of Treatment Upcoming Encounters Date Type Department Care Team (Late st Contact Info) Description 09/07/2023 8:00 AM EST Office Visit Audiology, [place] [address] [place] [address] Cayla Merlos Au.D. [address] [place] [address] 11/04/2023 3:30 PM EDT Office Visit Cardiology [facility], [place] [address] [place] [address] Primitivo Calderon MD [address] [place] [address] Scheduled Procedures Name Priority Associated Diagnoses Date/Ti [...] this encounter Medical Devices Implanted Type Area Inbound Telemarketer Device Identifier Shelf Expiration Date Model / Serial / Lot [id number] - [id number] Implanted:Qty : 1 on 09/26/2007 at OR [facility] [place] Tissue - Human Right: Neck [employer] 10/17/2008 [id number] / / [id number] Description:alloderm 3x7cm Elect Nucleus Slim Str [id number] - [id number] Implanted:Qty : 1 on 12/21/2022 by Ollie Borja MD at [place] [facility] [place] Left: Ear [employer] 11/04/2024 [id number] / / [id number] documented as of this encounter Advance Directives Latest Code Status on File Code Status Date Activated Date Inactivated Comments Full Code 09/26/2007 1:43 PM 09/27/2007 5:30 PM Code Status History Code Status Date Activated Date Inactivated Comments Full Code 08/09/2007 1:38 PM 08/12/2007 5:16 PM Care Teams Zigzag Stitcher Relationship Specialty Start Date End Date Sanjiv Hart III, MD [address] [place] [address] PCP - General Family Medicine 09/09/18 documented as of this encounter
--- OUTSIDE RECORDS SUMMARY | 2023-07-15 13:29 | External Medical Summary ---
Author Name Unknown Address Unknown Organization K09:[facility] [address] Laboratory Report Ordering Provider Test Date Status 06/09/2023 13:15:33 Final Observation Date Value Abnormality Reference (Units ) Status Creatinine 06/09/2023 13:15:33 1.0 0.6-1.2 (mg/dL) Final Glomerular filtration rate/1.73 sq M.predicted [Volume Rate/Area] in Serum, Plasma or Blood by Creatinine-based formula (CKD-EPI) 06/09/2023 13:15:33 83 >=60 (mL/min) Final eGFR is calculated based on the CKD-EPI 2020 equation Performing Location [facility] [place] [address]
--- OUTSIDE RECORDS SUMMARY | 2023-07-15 13:29 | External Medical Summary | Summary of Care ---
Author Name Unknown Organization [facility] Address [address] [place] [facility] [place] [address] Phone [phone] Care Team Providers Care Benzene Still Utility Operator Name Role Phone Tanner CANTU MD, Sanjiv Moser Primary Care Provider [phone] Reason for Visit * Precert (Within 10 days (routine)) - Authorized Specialty Diagnoses / Procedures Referred By Contac t Referred To Contact Radiology Diagnoses COPD, group C, by GOLD 2017 classification ([facility]) Chronic cough Procedures CT CHEST W CONTRAST Patricia Leal, [facility] [address] [facility] [address] Referral ID Status Reason Start Date Expiration Date V isits Requested Visits Authorized [id number] Authorized 12/06/2023 [id number] Encounter Details Date Type Department Care Team (Late st Contact Info) Description 06/24/2023 1:30 PM EST Imaging Radiology [address] [facility] [place] [address] COPD, group C, by GOLD 2017 classification ([facility]); Chronic cough Allergies Active Allergy Reactions Criticality Noted Date Comments Sulfamethoxazole-Trimethoprim Hives Medium 2016 Levofloxacin Rash Low 03/03/2017 Lisinopril 03/12/2021 Raises bp Nitrates, Organic 09/07/2000 Unconsciousness Sertraline Low 02/09/2019 Other reaction(s): NOSE BLEEDS Sulfamethoxazole Itching High 02/09/2019 Terazosin 12/08/2001 priaprism Trimethoprim Itching High 02/09/2019 documented as of this encounter (statuses as of 06/30/2023) Medications Medication Sig Dispensed Refills Start Date [...] Respimat 2.5 MCG/ACT Inhalation Aerosol Solution (Tiotropium [place] Monohydrate) Inhale 2 Puffs by mouth in the morning. 4 g 5 06/01/2022 Active Formoterol Fumarate 20 MCG/2ML Inhalation Nebulization SolutionIndications: Unspecified chronic bronchitis (HCC) Inhale 2 mL by mouth in the morning and 2 mL before bedtime. 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 1 Each 5 06/09/2023 Active Dexcom G7 Reading Instructor DeviceIndications:Hy poglycemia Use 1 Units as directed daily. 1 Each 2 06/09/2023 Active Hospital, Clinic, or Other Facility Administered Medication Ordered Dose Route Frequency Start Date End Date Status sodium chloride 0.9 % flush/inj 10 mL 10 mL IV PUSH ONCE 06/24/2023 06/25/2023 Ended documented as of this encounter (statuses as of 06/30/2023) Active Problems Problem Noted Date Diagnosed Date [...] as of this encounter (statuses as of 06/30/2023) Resolved Problems Problem Noted Date Diagnosed Date [...] 10/23/2008 02/16/2013 ACTIVE CASE MANAGEMENT-Yanet Landa Rn- [phone] 09/28/2007 02/16/2008 Malignant neoplasm soft tissue head [...] as of this encounter (statuses as of 06/30/2023) Immunizations Name Administration Dates Next Due COVID-19 mRNA, LNP-s, No Pre serve, 2-Dose Series (SiTune) 02/18/2022,10/11/2020,09/13/2020 Pneumococcal Conjugate Vacc, 13 Valent (Prevnar) [...] as of this encounter Miscellaneous Notes * Result Encounter Note - Patricia Leal PA-C - 06/29/2023 6:49 PM EST Please send a lab letter stating results normal. stable documented in this encounter Plan of Treatment Upcoming Encounters Date Type Department Care Team (Late st Contact Info) Description 07/01/2023 11:00 AM EST Office Visit Audiology, [place] [address] [place] [address] Cayla Merlos Au.D. [address] [place] [address] 07/01/2023 1:15 PM EST Office Visit [facility] [address] [address] Marta Moran MD [address] [place] [address] 11/04/2023 3:30 PM EDT Office Visit Cardiology [facility], [place] [address] [place], [place] [id number] Primitivo Calderon MD [address] [place], [place] [phone] Scheduled Procedures Name Priority Associated Diagnoses Date/Ti [...] this encounter Medical Devices Implanted Type Area Manager Pool Device Identifier Shelf Expiration Date Model / Serial / Lot [id number] - [id number] Implanted:Qty : 1 on 09/26/2007 at OR [facility] [place] Tissue - Human Right: Neck [employer] MARIANO 10/17/2008 [id number] / / [id number] Description:alloderm 3x7cm Elect Nucleus Slim Str [id number] - [id number] Implanted:Qty : 1 on 12/21/2022 by Ollie Borja MD at OR [facility] [place] Left: Ear [employer] 11/04/2024 [id number] / / [id number] documented as of this encounter Procedures Procedure Name Priority Date/Time Associated Diagnosis Comments CT CHEST W CONTRAST Routine 06/24/2023 1:33 PM EST COPD, group C, by GOLD 2017 classification (HCC) Chronic cough documented in this encounter Results * CT CHEST W CONTRAST (06/24/2023 1:33 PM EST) Anatomical Region Laterality Modality Chest, Body, Cardio Computed Gabino ography 06/24/2023 1:00 PM EST Impressions 06/27/2023 9:09 AM EST IMPRESSION: No acute abnormality. Scattered areas of fibrosis and scarring. Small stable nodule in the right costophrenic angle. THIS DOCUMENT HAS BEEN ELECTRONICALLY SIGNED BY RICHARD YOUNG MD Narrative 06/27/2023 9:09 AM EST PROCEDURE INFORMATION: Exam: CT Chest With Contrast; Diagnostic Exam date and time: 06/24/2023 1:00 PM Age: 78 years old Clinical indication: Chronic obstructive pulmonary disease, unspecified; Chronic cough; Additional info: Follow up on abnormal lung CT. Right sided inflitrate TECHNIQUE: Imaging protocol: Diagnostic computed tomography of the chest with contrast. Radiation optimization: All CT scans at this facility use at least one of these dose optimization techniques: automated exposure control; mA and/or kV adjustment per patient size (includes targeted exams where dose is matched to clinical indication); or iterative reconstruction. Contrast material: OPTIRAY 320; Contrast volume: 100 ml; Contrast route: INTRAVENOUS (IV); REPORTING DATA: Count of CT and Cardiac NM exams in prior 12 months: This patient has received 3 known CTs and 0 known cardiac nuclear medicine studies in the 12 months prior to the current study. COMPARISON: CT CHEST WO(Adult) 11/24/2022 13:55 FINDINGS: Thyroid: Normal. No significant nodule or enlargement. Trachea: Normal. Lungs: Lungs show apical scarring unchanged. No pulmonary infiltrate. Mild fibrosis particularly in the right lung base. 6 mm nodule within the posterior right costophrenic angle unchanged from previous exam. No additional pulmonary nodule. Pleural spaces: No pleural effusion. Heart: No cardiomegaly. No pericardial effusion. Coronary arteries: Minimal coronary artery calcification. Esophagus: No esophageal mass or wall thickening. No hiatal hernia. Mediastinal space: Normal. No mass or adenopathy. Lymph nodes: No enlarged mediastinal or axillary lymph nodes. Vasculature: Mild aortic atherosclerosis. Bones/joints: Unremarkable. No acute fracture. Soft tissues: Unremarkable. Other findings: Visualized upper abdomen is unremarkable. Procedure Note Richard Young MD - 06/27/2023 PROCEDURE INFORMATION: Exam: CT Chest With Contrast; Diagnostic Exam date and time: 06/24/2023 1:00 PM Age: 78 years old Clinical indication: Chronic obstructive pulmonary disease, unspecified; Chronic cough; Additional info: Follow up on abnormal lung CT. Right sided inflitrate TECHNIQUE: Imaging protocol: Diagnostic computed tomography of the chest withcontrast. Radiation optimization: All CT scans at this facility use at least one ofthese dose optimization techniques: automated exposure control; mA and/or kV adjustment per patient size (includes targeted exams where dose is matchedto clinical indication); or iterative reconstruction. Contrast material: OPTIRAY 320; Contrast volume: 100 ml; Contrast route: INTRAVENOUS (IV); REPORTING DATA: Count of CT and Cardiac NM exams in prior 12 months: This patient hasreceived 3 known CTs and 0 known cardiac nuclear medicine studies in the 12 monthsprior to the current study. COMPARISON: CT CHEST WO(Adult) 11/24/2022 13:55 FINDINGS: Thyroid: Normal. No significant nodule or enlargement. Trachea: Normal. Lungs: Lungs show apical scarring unchanged. No pulmonary infiltrate. Mild fibrosis particularly in the right lung base. 6 mm nodule within theposterior right costophrenic angle unchanged from previous exam. No additionalpulmonary nodule. Pleural spaces: No pleural effusion. Heart: No cardiomegaly. No pericardial effusion. Coronary arteries: Minimal coronary artery calcification. Esophagus: No esophageal mass or wall thickening. No hiatal hernia. Mediastinal space: Normal. No mass or adenopathy. Lymph nodes: No enlarged mediastinal or axillary lymph nodes. Vasculature: Mild aortic atherosclerosis. Bones/joints: Unremarkable. No acute fracture. Soft tissues: Unremarkable. Other findings: Visualized upper abdomen is unremarkable. IMPRESSION IMPRESSION: No acute abnormality. Scattered areas of fibrosis and scarring. Smallstable nodule in the right costophrenic angle. THIS DOCUMENT HAS BEEN ELECTRONICALLY SIGNED BY RICHARD YOUNG MD Patricia Cornel Leal PA-Rachel RAD CT documented in this encounter Visit Diagnoses Diagnosis COPD, group C, by GOLD 2017 classification (HCC) Chronic cough Cough documented in this encounter Administered Medications Inactive Administered Medications - up to 3 most recent administrations Medication Order MAR Action Action Date Dose Rate Site Ioversol (Optiray 320) inj 100 mL 100 mL, Intravenous, ONCE, On Sary 06/24/23 at 1351, For 1 dose Given 06/24/2023 1:50 PM EST 95 mL documented in this encounter Advance Directives Latest Code Status on File Code Status Date Activated Date Inactivated Comments Full Code 09/26/2007 1:43 PM 09/27/2007 5:30 PM Code Status History Code Status Date Activated Date Inactivated Comments Full Code 08/09/2007 1:38 PM 08/12/2007 5:16 PM Care Teams Benzene Still Utility Operator Relationship Specialty Start Date End Date Sanjiv Hart III, MD [address] [place] [address] PCP - General Family Medicine 09/09/18 documented as of this encounter
--- OUTSIDE RECORDS SUMMARY | 2023-07-15 13:29 | External Medical Summary ---
Author Name Unknown Address Unknown Organization K09:[facility] [place] [address] Laboratory Report Ordering Provider Test Date Status 06/09/2023 13:15:33 Final Observation Date Value Abnormality Reference (Units ) Status BUN 06/09/2023 13:15:33 13 6-20 (mg/d L) Final Performing Location [facility] [place] [address]
--- OUTSIDE RECORDS SUMMARY | 2023-07-15 13:29 | External Medical Summary | Summary of Care ---
Author Name Unknown Organization [facility] Address [address] [place] [address] Phone [phone] Care Team Providers Care Industrial Furnace Fabricator Name Role Phone Tanner CANTU MD, Sanjiv Moser Primary Care Provider [phone] Reason for Visit * Reason Comments Outpatient Testing Encounter Details Date Type Department Care Team (Late st Contact Info) Description 06/09/2023 1:10 PM EST Laboratory [facility] [address] [place] [address] [place] [address] [place] [address] [address] [place] [address] COPD, group C, by GOLD 2017 classification (HCC); Chronic cough Allergies Active Allergy Reactions Criticality [...] Respimat 2.5 MCG/ACT Inhalation Aerosol Solution (Tiotropium [place] Monohydrate) Inhale 2 Puffs by mouth in the morning. 4 g 5 06/01/2022 Active Formoterol Fumarate 20 MCG/2ML Inhalation Nebulization SolutionIndications: Unspecified chronic bronchitis (HCC) Inhale 2 mL by mouth in the morning and 2 mL before bedtime. 120 mL 5 06/30/2022 Active Atorvastatin Calcium 40 MG Oral Tablet (Lipitor)Indications :Coronary artery disease involving grand traverse coronary artery of grand traverse heart without angina pectoris Take 1 tablet [...] ns:COPD, group C, by GOLD 2017 classification ([facility]),Chronic cough 1 tab daily for 2 weeks; then 1/2 tab daily until finished 21 Tablet 0 06/09/2023 Active Dexcom G7 SensorIndications:Hy poglycemia Use 1 Units as directed daily. 1 Each 5 06/09/2023 Active Dexcom G7 Chemistry Technical Officer DeviceIndications:Hy poglycemia Use 1 Units as directed [...] 10/23/2008 02/16/2013 ACTIVE CASE MANAGEMENT-Yanet Landa Rn- [phone] 09/28/2007 02/16/2008 Malignant neoplasm soft tissue head [...] on file documented as of this encounter Plan of Treatment Upcoming Encounters Date Type Department Care Team (Late st Contact Info) Description 06/15/2023 3:00 PM EST Office Visit [facility] [address] [facility] [place] [address] Primitivo Calderon MD [address] [facility] [place] [address] 06/24/2023 1:30 PM EST Imaging Radiology [facility] [address], [address] [place] [address] 07/01/2023 11:00 AM EST Office Visit Audiology, [place] [address] [place] [address] Calya Merlos Au.D. [address] [place] [address] 07/01/2023 1:15 PM EST Office Visit [facility] [place] [place] [address] [place] [address] Marta Moran MD [address] [place] [address] Pending Results Name Type Priority Associated Diagnoses Date /Time BUN Lab STAT COPD, group C, by GOLD 2017 classification (HCC) Chronic cough 06/09/2023 1:15 PM EST CREATININE Lab STAT COPD, group C, by GOLD 2017 classification (HCC) Chronic cough 06/09/2023 1:15 PM EST Scheduled Procedures Name Priority Associated Diagnoses Date/Ti [...] this encounter Medical Devices Implanted Type Area Senior Web Analyst Device Identifier Shelf Expiration Date Model / Serial / Lot [id number] - [id number] Implanted:Qty : 1 on 09[place]26/[place] [facility] [place] - Human Right: Neck [employer] MARIANO 10/17/2008 [id number] / / [id number] Description:alloderm 3x7cm Elect Nucleus Slim Str [id number] - [id number] Implanted:Qty : 1 on 12/21/2022 by Ollie Borja MD [place] [facility] [place] Left: Ear [employer] 11/04/2024 [id number] / / [id number] documented as of this encounter Visit Diagnoses Diagnosis COPD, group C, by GOLD 2017 classification (HCC) Chronic cough Cough documented in this encounter Advance Directives Latest Code Status on File Code Status Date Activated Date Inactivated Comments Full Code 09/26/2007 1:43 PM 09/27/2007 5:30 PM Code Status History Code Status Date Activated Date Inactivated Comments Full Code 08/09/2007 1:38 PM 08/12/2007 5:16 PM Care Teams Industrial Furnace Fabricator Relationship Specialty Start Date End Date Sanjiv Hart III, MD [address] [facility] [place], [place] [address] PCP - General Family Medicine 09/09/18 documented as of this encounter
--- NOTE | 2023-07-15 13:32 | CT Scan Report ---
CT angio chest PE protocol HISTORY: 78 years-old Male with Dyspnea, CP, tachycardia. Acute chest pain with tachycardia TECHNIQUE: Multiple CTA images of the chest were obtained after the intravenous administration of 115 ml Optiray. Coronal and sagittal MIPS were obtained from the axial data set and were submitted for review. All measurements were obtained according to NASCET criteria. A dose lowering technique was u tilized adhering to the principles of ALARA. COMPARISON: CT soft tissue neck of same day, chest CT 08/17/2022 FINDINGS: CTA: The heart is normal in size. No pericardial effusion. Mild coronary artery calcifications. Atheroscle rosis of the thoracic aorta without aneurysm or dissection. Suboptimal evaluation of the pulmonary ar terial tree secondary to respiratory motion artifact. No central pulmonary emboli identified. CT CHEST: Unremarkable thyroid. Paratracheal and hilar lymphadenopathy noted with subcarinal lymph nodes measur ing up to 1.4 cm. Hilar lymph nodes measure up to 1.3 cm. These lymph nodes have mildly decreased in size from the prior study. No axillary or supraclavicular lymphadenopathy. Bronchial wall thickening with mucous plugging. Trace pleural effusions. No pneumothorax. Patchy mid to lower lung zone predominant groundglass densities with central lobular nodules. Mild linear subseg mental bibasilar atelectasis. Chronic right apical pleural parenchymal scarring. Stable 5 mm solid no dule of the right lower lobe, image 74. No acute process of the imaged upper abdomen. No acute fractu re. IMPRESSION: 1. Limited exam secondary to respiratory motion artifact. No central pulmonary emboli identified. 2. Bibasilar mucous plugging with mid to lower lung zone multifocal bilateral pulmonary opacities, li monse representing bronchopneumonia. 3. Mild mediastinal and hilar lymphadenopathy redemonstrated which has decreased in size from the edouard or study. ACT 112: Negative or not required by law. The above report was generated using voice recognition software. It may contain grammatical, syntax o r spelling errors. Electronically signed by: Yehuda Luna M.D. 07/15/2023 1:30 PM
--- NOTE | 2023-07-15 13:42 | CT Scan Report ---
CT soft tissue neck w con HISTORY: 78 years-old Male cancer, difficulty swallowing acute neck pain with difficulty swallowing COMPARISON: CTA chest of same day, CT soft tissue neck 08/15/2022 TECHNIQUE: Multiple axial CT images of the soft tissues of the neck were obtained following the intra venous administration of 115 mL Optiray 320. A dose lowering technique was used consistent with the p rincipals of DON. FINDINGS: Mildly motion degraded exam. Right apical pleural-parenchymal scarring redemonstrated. No pneumothora x. The imaged intracranial structures demonstrate no acute abnormality. The airway appears patent. Un remarkable appearance of the epiglottis, glottis and subglottic airway. Atrophic thyroid. Unremarkabl e vasculature of the neck with moderate atherosclerosis of the carotid bulbs. The parapharyngeal fat planes are symmetric and well-maintained. No fluid collections or new soft tissue mass is identified. Postoperative changes of prior right radical dissection again noted. Abnormal appearance of the floo r of the mouth is redemonstrated, notably on image 144 series 6 which appears unchanged and generally stable from the prior exam. Unchanged 6 mm left submandibular lymph node on image 176. No pathologic ally enlarged lymph nodes identified. Degenerative changes of the spine. Unchanged 8 mm lucent focus of the C3 vertebral body. Stable small er subcentimeter lucent focus of the C2 vertebral body on image 121 series 6. Large left mastoid effu estrella with postoperative changes. The right mastoid air cells and paranasal sinuses are generally cipriano r. IMPRESSION: 1. No acute abnormality identified within the soft tissues of the neck. 2. Postoperative changes of prior right radical neck dissection redemonstrated. 3. Unchanged lucent lesions of the C2 and C3 vertebral bodies. 4. No pathologically enlarged lymph nodes or new soft tissue mass is identified. ACT 112: Negative or not required by law. The above report was generated using voice recognition software. It may contain grammatical, syntax o r spelling errors. Electronically signed by: Yehuda Luna M.D. 07/15/2023 1:40 PM
[2023-07-15] MEDS ORDERED: methylPREDNISolone 125 MG/2 ML VIAL IV STA (14:14)
[2023-07-15] MEDS ORDERED: ALBUTEROL 0.5% NEB SOLN 2.5 MG/0.5 ML VIAL NEB STA (14:14)
[2023-07-15] MEDS ORDERED: VANCOMYCIN CONSULT ACTIVE PRN (14:51)
[2023-07-15] MEDS ORDERED: PIPERACILLIN/TAZOBACTAM 4.5 GM/100ML D5W IV ONE (14:54)
[2023-07-15] MEDS ORDERED: VANCOMYCIN HCL 1,000 MG in SODIUM CHLORIDE 0.9% 250 ML IV SCH (15:00)
--- NOTE | 2023-07-15 15:04 | History & Physical Report ---
Date of Service July 15, 2023 Assessment & Plan (1) Bronchopneumonia: Plan: Shortness of breath for some time with severe attack since last night Has RSV virus infection CT scan did show bronchopneumonia-could be secondary to aspiration Blood cultures were taken, MRSA screen checked Started on intravenous cefepime and vancomycin for now Oxygen as needed MRSA screen came back negative and vancomycin was discontinued Added intravenous doxycycline (2) Acute respiratory failure with hypoxia: Plan: As above Has been requiring up to 4 L to maintain saturation No evidence of CHF (3) H/O malignant neoplasm of tonsil: Plan: History of malignant neoplasm of tonsil status post chemoradiation and neck surgery [address] of the neck did not show any evidence of recurrence or any other significant abnormality (4) Hypothyroidism: Plan: Will continue replacement therapy (5) COPD (chronic obstructive pulmonary disease) with emphysema: Plan: History of COPD not on any home oxygen Complicated by RSV and bronchopneumonia which could be viral Will continue with intravenous Solu-Medrol Nebulized bronchodilator Antibiotics as above (6) Gastroparesis: Plan: Status post PEG tube (7) Depression: Plan: Continue current medication DVT prophylaxis Subcu Lovenox CODE STATUS Full History of Present Illness Chief Complaint: Increasing shortness of breath since last night associated with fever and chills Primary Care Provider: Sanjiv Hart MD He cannot hear and cannot talk and the history is taken from the . 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 He was seen by his primary care physician yesterday and apparent blood test and EKG came out to be unremarkable. He was given a short course of prednisone to help his shortness of breath. He woke up at night with increasing shortness of breath cough and shaking chills and was brought into the emergency room for further evaluation. Remains very short of breath emergency room and requiring up to 4 to 6 L of oxygen to maintain saturation noted to have RSV virus infection and also bronchopneumonia on CT scan without any evidence of pulmonary embolism. Blood cultures were taken, MRSA screen sent and he was started with intravenous cefepime and vancomycin for now. Admitted to medical telemetry unit for continuation of care. Denies any fever and or chills no abdominal pain nausea no vomiting and does not have any problem with urine or bowel habit. Allergies Allergy/AdvReac Type Severity Reaction Status Date / Time levofloxacin Allergy Intermediate rash all Verified 07/15/23 13:03 over body sulfamethoxazole Allergy Intermediate ITCHING Verified 07/15/23 13:03 trimethoprim Allergy Intermediate ITCHING Verified 07/15/23 13:03 terazosin Allergy Unknown DOES NOT Verified 07/15/23 13:03 KNOW Nitrate Analogues AdvReac Severe DROP IN BP Verified 07/15/23 13:03 sertraline AdvReac Intermediate NOSE BLEEDS Verified 07/15/23 13:03 Home Medications Medication Instructions Recorded Confirmed Type citalopram 20 mg tablet 20 mg feeding tube QAM 05/07/18 07/15/23 History food supplemt, lactose-reduced 2 can feeding tube TID 05/07/18 07/15/23 History (Nutritional Drink oral liquid) latanoprost 0.005 % eye drops 1 drp OPB HS 01/30/19 07/15/23 History acetaminophen 500 mg tablet 1,000 mg feeding tube Q6H PRN Pain 03/06/21 07/15/23 History (Tylenol Extra Strength) levothyroxine 88 mcg tablet 88 mcg feeding tube QAM 04/06/21 07/15/23 History (Euthyrox) midodrine 5 mg tablet 10 mg feeding tube TID PRN 05/13/21 07/15/23 History Hypotension atorvastatin 40 mg tablet 40 mg feeding tube HS 06/02/21 07/15/23 History fludrocortisone 0.1 mg tablet 0.1 mg feeding tube DAILY 06/05/22 07/15/23 History tiotropium bromide 2.5 2 puff inhalation QAM 06/05/22 07/15/23 History mcg/actuation mist for inhalation (Spiriva Respimat) formoterol fumarate 20 mcg/2 mL 2 ml inhalation BID #120 mL 06/09/22 07/15/23 Rx solution for nebulization (Perforomist) albuterol sulfate 1.25 mg/3 mL 1.25 mg inhalation Q4H PRN 06/03/23 07/15/23 History solution for nebulization Shortness Of Breath Or Wheezing aspirin 81 mg tablet,delayed 81 mg feeding tube DAILY 06/03/23 07/15/23 History release prednisone 10 mg tablet 10 mg PO .TAPER DIRECTED 07/15/23 07/15/23 History Past Med/Surg History Medical History (Updated 07/15/23 @ 17:24 by Connie Galvan MD) Acute respiratory failure with hypoxia Abnormal CT scan, neck 07/2022 [facility] - "7 mm lytic lesion within the C3 vertebral body." Per , outpt imaging since being d/c from hospital has r/o mets. History of recent hospitalization 07/2022 [facility] - pneumonia Slow to wake up after anesthesia Speech difficult to understand Hearing loss History of COVID-19 05/2021 treated for pneumonia at [facility]- 06/13/22 admitted to [facility] 06/2022with covid pneumonia, flu, and RSV 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 Blood pressure instability [facility] Cardiology manages; currently using midodrine, and nitro PRN hypo/hypertension; per , cardiac workup wnl aside from BP changes Hypertension Aspiration pneumonia hx - CAN NOT TAKE FOOD/LIQUIDS ORALLY Degenerative disc disease Osteoarthritis Uses feeding tube GERD (gastroesophageal reflux disease) Hypothyroidism Glaucoma Anxiety Asthma rare use of PRN inh COPD (chronic obstructive pulmonary disease) with emphysema Orthostatic hypotension Gastroparesis Depression Chronic back pain Tonsil carcinoma (Unknown) RADIATION AND CHEMO Benign prostatic hyperplasia (Unknown) Surgical History History of radical neck dissection S/P percutaneous endoscopic gastrostomy (PEG) tube placement History of neck surgery LUMPECTOMY History of tooth extraction S/P colonoscopy (Unknown) S/P arthroscopic knee surgery (Unknown) RT H/O esophagogastroduodenoscopy (Unknown) WITH PLACEMENT PEG TUBE Family History Brother Family history of diabetes mellitus Social History Smoking Status: Never smoker Tobacco Type: Cigarettes Second Hand Exposure: No; Do You Dip or Chew Tobacco: No; Hx Alcohol Use: No Hx Substance Use: No Preferred Language: Serbian 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 Ability: Impaired 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 Ability Comment: assist w/ answering questions. [place], speech difficulties [employer] Required: No Beliefs That Will Affect Care: None marital status: Current Living Situation: Spouse Feels Safe at Home: Yes Assistive Devices: Glasses Review of Systems Review of Systems: All systems reviewed and are unremarkable except as noted below Physical Exam Physical Exam: Lying in bed with moderate shortness of breath at rest Constitutional: + ill appearing and average body habitus Eyes: PERRL, conjunctivae normal, anicteric sclerae ENMT: external ear and nose normal, oropharynx normal Neck: trachea midline, no thyromegaly Respiratory: + respiratory distress (Moderate respira tory distress) Auscultation: + diminished lung sounds and + crackles (Bilateral crackles at the bases) Cardiovascular: Rate/Rhythm: regular rate and regular rhythm; not tachycardic Heart Sounds: normal S1 and normal S2; no murmur Extremities: no edema Gastrointestinal (Abdomen): Inspection/Auscultation: normal bowel sounds; abdomen not distended Percussion/Palpation: abdomen soft; abdomen nontender PEG tube in situ Musculoskeletal: No acute arthritis involving any of the joint Neurologic: normal touch/pain/proprioception and moves all extremities; no focal motor deficits Alert and awake Lymphatic: no cervical or axillary lymphadenopathy Results & Data Results & Data Vital Signs (Past 12 Hours) Vital Signs Temp Pulse Pulse Resp BP BP Pulse Ox 07/15/23 13:40 87 24 192/105 H 95 07/15/23 13:08 92 H 07/15/23 13:04 93 H 27 H 181/100 H 95 07/15/23 11:45 92 07/15/23 11:44 88 25 H 162/75 H 92 07/15/23 10:46 36.5 C 95 H 20 126/73 93 O2 Del Method O2 Flow Rate 07/15/23 13:40 Nasal Cannula 2 07/15/23 13:08 07/15/23 13:04 Nasal Cannula 2 07/15/23 11:45 Room Air 07/15/23 11:44 Room Air 07/15/23 10:46 Room Air Laboratory Results Short CBC 07/15/23 Range/Units 11:37 WBC 12.44 H (4.8-10.8) K/ul Hgb 14.0 (14.0-18.0) g/dl Hct 40.6 L (42.0-52.0) % Plt Count 186 (130-400) K/uL BMP 07/15/23 11:37 Sodium 137 Potassium 3.7 Chloride 100 Carbon Dioxide 28 BUN 23 Creatinine 1.15 Glucose 147 H Calcium 9.3 Liver Function 07/15/23 Range/Units 11:37 Total Bilirubin 0.7 (0.2-1.0) mg/dl AST 20 (13-39) U/L ALT 13 (7-52) U/L Alkaline Phosphatase 78 (34-104) U/L Albumin 3.9 (3.4-5.0) gm/dl Medications Administered Current Inpatient Medications Acetaminophen (Acetaminophen 500 Mg Tab) 1,000 mg PO Q6H PRN PRN Reason: Pain Stop: 08/14/23 14:52 Aspirin (Aspirin 81 Mg Ectab) 81 mg PO DAILY [facility] Stop: 08/15/23 08:59 Atorvastatin Calcium (Atorvastatin 40 Mg Tab) 40 mg PEG HS [facility] Stop: 08/14/23 20:59 Citalopram Hydrobromide (Citalopram 20 Mg Tab) 20 mg PEG QAM [facility] Stop: 08/15/23 08:59 Enoxaparin Sodium (Enoxaparin Inj 40 Mg/0.4 Ml Syr) 40 mg SQ QAM [facility] Stop: 08/14/23 14:59 Fludrocortisone Acetate (Fludrocortisone Acetate 0.1 Mg Tab) 0.1 mg PO DAILY [facility] Stop: 08/15/23 08:59 Formoterol Fumarate (Formoterol 20 Mcg/2 Ml Vial) 20 mcg INH BID [facility] Stop: 08/14/23 20:59 Piperacillin Sod/Tazobactam (Sod 4.5 gm/ Dextrose) 100 mls @ 25 mls/hr IV Q8H [facility]; Protocol Stop: 07/22/23 14:59 Vancomycin HCl 1,000 mg/ (Sodium Chloride) 270 mls @ 200 mls/hr IV Q12H [facility]; Protocol Stop: 07/22/23 14:59 Latanoprost (Latanoprost 0.005% Op Soln 2.5 Ml Btl) 1 drops OPB HS [facility] Stop: 08/14/23 20:59 Levothyroxine Sodium (Levothyroxine Sodium 88 Mcg Tablet) 88 mcg PEG QAM [facility] Stop: 08/15/23 08:59 Miscellaneous Information (Vancomycin Consult Active) 1 each N/A UD PRN PRN Reason: Consult Stop: 08/14/23 14:50 Non-Formulary Medication (Albuterol Sulfate) 1.25 mg INH Q4H PRN PRN Reason: Shortness Of Breath Or Wheezing Non-Formulary Medication (Food Supplemt, Lactose-Reduced [Nutritional Drink]) 2 can Feeding Tube TID [facility] Stop: 08/14/23 20:59 Non-Formulary Medication (Tiotropium [place] [Spiriva Respimat]) 2 puffs INH QAM [facility] Stop: 08/15/23 08:59 Code Status & VTE Plan VTE Prophylaxis Plan VTE Prophylaxis will be ordered: Yes
[2023-07-15] MEDS ORDERED: PIPERACILLIN/TAZOBACTAM 4.5 GM/100 ML BAG IV ONE (15:07)
[2023-07-15] MEDS ORDERED: ENOXAPARIN INJ 40 MG/0.4 ML SYR SQ STA (15:11)
[2023-07-15] MEDS ORDERED: VANCOMYCIN HCL 2,000 MG in SODIUM CHLORIDE 0.9% 500 ML IV STA (15:15)
--- NOTE | 2023-07-15 17:19 | Electrocardiogram Report ---
Test Reason : Blood Pressure : / mmHG Vent. Rate : 095 BPM Atrial Rate : 095 BPM P-R Int : 138 ms QRS Dur : 082 ms QT Int : 350 ms P-R-T Axes : 046 -50 048 degrees QTc Int : 439 ms Poor data quality, interpretation may be adversely affected Normal sinus rhythm Left anterior fascicular block Abnormal ECG When compared with ECG of 03-JUN-2023 18:29, No significant change was found Confirmed by Yung Love ([id number]) on 07/15/2023 5:18:40 PM Referred By: Confirmed By:Ryan Love
[2023-07-15] MEDS ORDERED: ENOXAPARIN INJ 40 MG/0.4 ML SYR SQ ONE (19:04)
[2023-07-15] MEDS: DOXYCYCLINE HYCLATE 100 MG in DEXTROSE 5% MINI-B 100 ML IV SCH (19:18)
[2023-07-15] MEDS: PIPERACILLIN/TAZOBACTAM 4.5 GM in DEXTROSE 5% MINI-B 100 ML IV SCH (19:33)
[2023-07-15] MEDS: TUBE FEEDING WATER FLUSH PEG SCH ×2 (19:36→22:33)
[2023-07-15] MEDS: FORMOTEROL 20 MCG/2 ML VIAL INH SCH (20:19)
[2023-07-15] MEDS: PEPTAMEN 1.5 CAL 1,000 ML BAG PEG SCH (20:58)
[2023-07-15] MEDS ORDERED: FOOD SUPPLEMT LACTOSE REDUCED Feeding Tube SCH (21:00)
[2023-07-15] MEDS: ATORVASTATIN 40 MG TAB PEG SCH (21:27)
[2023-07-15] MEDS: LATANOPROST 0.005% OP SOLN 2.5 ML BTL OPB SCH (21:28)
[2023-07-15 22:01] LABS: Appearance Urine Clear (Clear); Bacteria Urine Automated Negative (Negative); Bilirubin Urine Negative (Negative); Blood Urine Negative (Negative); Cast Urine Automated 0 /lpf (0-5); Color Urine Yellow; Glucose Urine UA Negative (Negative); Ketones Urine Negative (Negative); Leukocyte Esterase Urine Negative (Negative); Nitrite Urine Negative (Negative); RBC Urine Automated 0-4 /hpf (0-4); Urobilinogen Urine Negative (Negative)
[2023-07-15 22:03] LABS: Protein Urine Trace (Negative)
[2023-07-15] MEDS: ACETAMINOPHEN 500 MG TAB PO PRN (23:37)
[2023-07-16] MEDS: TUBE FEEDING WATER FLUSH PEG SCH ×6 (04:13→23:30)
[2023-07-16] MEDS: PIPERACILLIN/TAZOBACTAM 4.5 GM in DEXTROSE 5% MINI-B 100 ML IV SCH ×3 (04:38→21:37)
[2023-07-16] MEDS: FORMOTEROL 20 MCG/2 ML VIAL INH SCH ×2 (07:29→20:13)
[2023-07-16] MEDS: LEVOTHYROXINE SODIUM 88 MCG TABLET PEG SCH ×2 (08:36→10:11)
[2023-07-16] MEDS: DOXYCYCLINE HYCLATE 100 MG in DEXTROSE 5% MINI-B 100 ML IV SCH ×2 (08:42→19:21)
[2023-07-16 09:48] LABS: Hematocrit (blood only) 36.8 % (42.0-52.0); Hemoglobin 12.4 g/dl (14.0-18.0); Mean Corpuscular Hemoglobin 31.7 pg (25.0-34.0); Mean Corpuscular Hgb Conc 33.7 g/dL (32.0-36.0); Mean Corpuscular Volume 94.1 fL (80.0-100.0); Platelet Count 151 K/uL (130-400); RDW Coefficient of Variation 14.1 % (11.5-14.5); RDW Standard Deviation 48.1 fL (36.4-46.3); Red Blood Count 3.91 M/uL (4.70-6.10); White Blood Count 15.31 K/ul (4.8-10.8)
[2023-07-16 10:03] LABS: BUN Creatinine Ratio 23.7 (10-20); Est GFR (African American) 69.1 ml/min; Est GFR (Non-African American) 59.6 ml/min; Magnesium 2.2 mg/dl (1.7-2.4)
[2023-07-16] MEDS: FLUDROCORTISONE ACETATE 0.1 MG TAB PO SCH (10:11)
[2023-07-16] MEDS: ASPIRIN 81 MG ECTAB PO SCH (10:11)
[2023-07-16] MEDS: CITALOPRAM 20 MG TAB PEG SCH (10:11)
[2023-07-16] MEDS: UMECLIDINIUM BROMIDE 62.5MCG/BLISTER 7 PUFFS/INHALER INH SCH (10:12)
--- NOTE | 2023-07-16 11:10 | Electrocardiogram Report ---
Test Reason : Blood Pressure : / mmHG Vent. Rate : 094 BPM Atrial Rate : 094 BPM P-R Int : 140 ms QRS Dur : 090 ms QT Int : 350 ms P-R-T Axes : 051 -49 040 degrees QTc Int : 437 ms Normal sinus rhythm Left anterior fascicular block Abnormal ECG When compared with ECG of 15-JUL-2023 11:24, No significant change was found Confirmed by Yung Love ([id number]) on 07/16/2023 11:10:27 AM Referred By: REFERRED SELF Confirmed By:Ryan Love
--- NOTE | 2023-07-16 15:27 | Hospitalist Progress Note ---
Date of Service July 16, 2023 Assessment & Plan (1) Bronchopneumonia: Plan 78-year-old male with PMH of 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 He is being managed for the following: Bronchopneumonia: RSV infection Shortness of breath for some time with severe attack since the night [employer]IP SC[employer]ER Has RSV virus infection CT scan did show bronchopneumonia-could be secondary to aspiration vs bacterial superinfection over viral urti Follow admitting blood cultures. Continue with doxycycline and Zosyn 07/15. Wean down oxygen as tolerated. Patient reports improving cough and cough associated chest pain. Acute respiratory failure with hypoxia: As above Has been requiring up to 4 L to maintain saturation No evidence of CHF H/O malignant neoplasm of tonsil: History of malignant neoplasm of tonsil status post chemoradiation and neck surgery [address] of the neck did not show any evidence of recurrence or any other significant abnormality Hypothyroidism: Will continue replacement therapy COPD (chronic obstructive pulmonary disease) with emphysema: History of COPD not on any home oxygen Complicated by RSV and bronchopneumonia which could be viral Will continue with intravenous Solu-Medrol Nebulized bronchodilator Antibiotics as above Gastroparesis: Status post PEG tube Depression: Continue current medication DVT prophylaxis: Subcu Lovenox CODE STATUS: Full Admission and Anticipated Discharge Date Admission Date: July 15, 2023 Subjective Patient was seen and examined at bedside. Patient was lying semiupright in bed, patient's at bedside. Patient resting comfortably, not in any acute distress. Patient reports improving cough and improving chest pain from coughing. Patient reports feeling better. Patient is afebrile and denies other review of symptoms. Physical Exam Physical Exam: GENERAL: Alert and oriented x3. NAD, on 4 L oxygen via oxygen mask. Appears ill/frail/weak. HEENT: No pallor, no icterus. Pupils equal, round and reactive to light. Oral mucosa moist. NECK: No JVD, no neck masses. HEART: S1 and S2 heard. Regular rate and rhythm. No murmur, no gallop. RESPIRATORY SYSTEM: Normal AP diameter. No accessory muscle use. No wheezing, bilateral crackles. ABDOMEN: Soft, bowel sounds present, nontender, no distention. PEG tube in situ with no signs and symptoms surrounding infection. CENTRAL NERVOUS SYSTEM: No facial droop. Speech is clear. Obeys simple commands. Moves extremities. EXTREMITIES: No edema, no erythema seen. Results & Data Results & Data Vital Signs (Past 12 Hours) Vital Signs Pulse Pulse Resp BP Pulse Ox O2 Del Method O2 Flow Rate 07/16/23 11:00 58 L 21 98 07/16/23 10:00 61 22 99 07/16/23 09:00 63 22 97 07/16/23 08:00 68 20 96 07/16/23 08:00 118/70 07/16/23 08:00 Oxymask 4 07/16/23 07:29 67 18 90 Room Air 07/16/23 07:00 66 22 100 07/16/23 07:00 65 07/16/23 06:00 119/68 07/16/23 06:00 63 25 H 90 07/16/23 05:00 60 22 98 07/16/23 05:00 105/61 07/16/23 04:00 93 07/16/23 04:00 106/64
[2023-07-16] MEDS: ENOXAPARIN INJ 40 MG/0.4 ML SYR SQ SCH (17:41)
[2023-07-16] MEDS: ATORVASTATIN 40 MG TAB PEG SCH (21:42)
[2023-07-16] MEDS: LATANOPROST 0.005% OP SOLN 2.5 ML BTL OPB SCH (21:47)
[2023-07-17] MEDS: ALBUTEROL 0.083% NEBU SOLN 3 ML VIAL INH PRN (02:17)
[2023-07-17] MEDS: ACETAMINOPHEN 500 MG TAB PO PRN ×2 (03:13→13:47)
[2023-07-17 04:08] LABS: Hematocrit (blood only) 40.7 % (42.0-52.0); Hemoglobin 13.8 g/dl (14.0-18.0); Mean Corpuscular Hemoglobin 32.2 pg (25.0-34.0); Mean Corpuscular Hgb Conc 33.9 g/dL (32.0-36.0); Mean Corpuscular Volume 94.9 fL (80.0-100.0); Mean Platelet Volume 11.4 fL (9.4-12.4); Platelet Count 143 K/uL (130-400); RDW Coefficient of Variation 13.9 % (11.5-14.5); Red Blood Count 4.29 M/uL (4.70-6.10)
[2023-07-17 04:43] LABS: BUN Creatinine Ratio 27.1 (10-20); Calcium 8.8 mg/dl (8.6-10.3); Creatinine Clr Calc Pharmacy 60.6 ml/min; Est GFR (African American) 77.7 ml/min; Est GFR (Non-African American) 67.1 ml/min; Magnesium 1.9 mg/dl (1.7-2.4); Phosphorus 2.1 mg/dl (2.5-4.9); Potassium 3.2 mmol/L (3.5-5.1)
[2023-07-17] MEDS ORDERED: LORazepam 0.5 MG TAB PO STA (05:04)
[2023-07-17] MEDS: TUBE FEEDING WATER FLUSH PEG SCH ×6 (05:06→23:54)
[2023-07-17] MEDS ORDERED: LORazepam 1 MG/1 ML SYR ED Inj Use ONE (05:10)
[2023-07-17] MEDS ORDERED: LORazepam 0.25 MG in SYRINGE 0.125 ML IV STA (05:14)
[2023-07-17] MEDS: PIPERACILLIN/TAZOBACTAM 4.5 GM in DEXTROSE 5% MINI-B 100 ML IV SCH ×3 (06:15→20:34)
[2023-07-17] MEDS: FORMOTEROL 20 MCG/2 ML VIAL INH SCH (07:13)
[2023-07-17] MEDS: DOXYCYCLINE HYCLATE 100 MG in DEXTROSE 5% MINI-B 100 ML IV SCH ×2 (08:05→17:28)
[2023-07-17] MEDS ORDERED: POTASSIUM CHLORIDE 20 MEQ/15 ML UDC PEG STA ×2 (08:57→12:06)
[2023-07-17] MEDS ORDERED: POTASSIUM PHOS 3 MMOL/1 ML INFUSION IV STA (08:57)
[2023-07-17] MEDS ORDERED: POTASSIUM PHOSPHATE 15 MMOL in SODIUM CHLORIDE 0.9% 250 ML IV ONE (09:30)
[2023-07-17] MEDS: ASPIRIN 81 MG ECTAB PO SCH (09:54)
[2023-07-17] MEDS: CITALOPRAM 20 MG TAB PEG SCH (09:54)
[2023-07-17] MEDS: FLUDROCORTISONE ACETATE 0.1 MG TAB PO SCH (09:54)
[2023-07-17] MEDS: UMECLIDINIUM BROMIDE 62.5MCG/BLISTER 7 PUFFS/INHALER INH SCH (09:56)
--- NOTE | 2023-07-17 09:58 | XRay Report ---
XR chest 1V portable HISTORY: 78 years-old Male f/u, increased O2 req acute shortness of breath with hypoxia COMPARISON: 07/15/2023 TECHNIQUE: AP view of the chest FINDINGS: Cardiac and mediastinal and hilar silhouettes are unchanged. No pneumothorax, pleural effusion or pul monary edema. Mild subsegmental bibasilar densities suggest atelectasis. Bones appear grossly intact. IMPRESSION: No acute process. ACT 112: Negative or not required by law. The above report was generated using voice recognition software. It may contain grammatical, syntax o r spelling errors. Electronically signed by: Yehuda Luna M.D. 07/17/2023 9:57 AM
[2023-07-17] MEDS: BUDESONIDE 0.5 MG/2 ML VIAL (PULMICORT) NEB SCH ×2 (11:37→20:09)
[2023-07-17] MEDS: methylPREDNISolone 40 MG in SYRINGE 0 ML IV SCH (11:46)
[2023-07-17] MEDS: SODIUM CHLOR 7% 4 ML NEB NEB SCH ×2 (11:54→20:09)
[2023-07-17] MEDS: ENOXAPARIN INJ 40 MG/0.4 ML SYR SQ SCH (15:24)
--- NOTE | 2023-07-17 16:41 | Hospitalist Progress Note ---
Date of Service July 17, 2023 Assessment & Plan (1) Bronchopneumonia: Plan 78-year-old male with PMH of 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 He is being managed for the following: Bronchopneumonia: RSV infection Shortness of breath for some time with severe attack since the night [employer]ER[employer] Has RSV virus infection CT scan did show bronchopneumonia-could be secondary to aspiration vs bacterial superinfection over viral urti Follow admitting blood cultures. Continue with doxycycline and Zosyn 07/15. Wean down oxygen as tolerated. Oxygen requirement improved, CXR obtained and reviewed, no changes noted. Budesonide and Perforomist nebulization added, hypertonic saline nebulization added. If no improvement or with worsening, consider pulmonology consult. Acute respiratory failure with hypoxia: As above Has been requiring up to 8 L to maintain saturation No evidence of CHF H/O malignant neoplasm of tonsil: History of malignant neoplasm of tonsil status post chemoradiation and neck surgery [address] of the neck did not show any evidence of recurrence or any other significant abnormality Hypothyroidism: Will continue replacement therapy COPD (chronic obstructive pulmonary disease) with emphysema: History of COPD not on any home oxygen Complicated by RSV and bronchopneumonia which could be viral Will continue with intravenous Solu-Medrol Nebulized bronchodilator Antibiotics as above Gastroparesis: Status post PEG tube Depression: Continue current medication DVT prophylaxis: Subcu Lovenox CODE STATUS: Full Admission and Anticipated Discharge Date Admission Date: July 15, 2023 Subjective Patient was seen and examined at bedside. Patient was lying semiupright in bed, patient's at bedside. Patient resting comfortably, not in any acute distress. Patient reports cough not much improving and reports it is not getting better. Patient with increased oxygen requirement, CXR obtained with no acute changes, Perforomist and budesonide nebs added, heparin saline nebs added. If with worsening or no improvement, will consider consulting pulmonology. Physical Exam Physical Exam: GENERAL: Alert and awake. NAD, on 8 L oxygen via oxygen mask. Appears ill/frail/weak. HEENT: No pallor, no icterus. Pupils equal, round and reactive to light. Oral mucosa moist. NECK: No JVD, no neck masses. HEART: S1 and S2 heard. Regular rate and rhythm. No murmur, no gallop. RESPIRATORY SYSTEM: Normal AP diameter. No accessory muscle use. b/l rhonci, bilateral crackles. ABDOMEN: Soft, bowel sounds present, nontender, no distention. PEG tube in situ with no signs and symptoms surrounding infection. CENTRAL NERVOUS SYSTEM: No facial droop. Speech is clear. Obeys simple commands. Moves extremities. EXTREMITIES: No edema, no erythema seen. Results & Data Results & Data Vital Signs (Past 12 Hours) Vital Signs Pulse Pulse Resp BP Pulse Ox O2 Del Method O2 Flow Rate 07/17/23 11:41 82 20 156/88 H 96 Nebulizer 07/17/23 11:39 78 20 95 Oxymask 8 07/17/23 08:18 82 24 125/71 97 Oxymask 8 07/17/23 07:43 81 07/17/23 07:15 80 26 H 95 Oxymask 8 07/17/23 06:00 82 27 H 94 Oxymask 8
[2023-07-17] MEDS: FORMOTEROL 20 MCG/2 ML VIAL NEB SCH (20:09)
[2023-07-17] MEDS: LATANOPROST 0.005% OP SOLN 2.5 ML BTL OPB SCH (20:33)
[2023-07-17] MEDS: ATORVASTATIN 40 MG TAB PEG SCH (20:34)
[2023-07-18] MEDS: TUBE FEEDING WATER FLUSH PEG SCH ×6 (03:18→22:52)
[2023-07-18] MEDS: PIPERACILLIN/TAZOBACTAM 4.5 GM in DEXTROSE 5% MINI-B 100 ML IV SCH ×3 (04:42→20:34)
[2023-07-18] MEDS: LEVOTHYROXINE SODIUM 88 MCG TABLET PEG SCH (06:30)
[2023-07-18] MEDS: DOXYCYCLINE HYCLATE 100 MG in DEXTROSE 5% MINI-B 100 ML IV SCH ×2 (06:49→17:48)
[2023-07-18 07:19] LABS: Hematocrit (blood only) 35.3 % (42.0-52.0); Hemoglobin 12.2 g/dl (14.0-18.0); Mean Corpuscular Hemoglobin 32.3 pg (25.0-34.0); Mean Corpuscular Hgb Conc 34.6 g/dL (32.0-36.0); Mean Corpuscular Volume 93.4 fL (80.0-100.0); Mean Platelet Volume 11.6 fL (9.4-12.4); Platelet Count 147 K/uL (130-400); RDW Coefficient of Variation 13.6 % (11.5-14.5); RDW Standard Deviation 46.6 fL (36.4-46.3); Red Blood Count 3.78 M/uL (4.70-6.10); White Blood Count 8.48 K/ul (4.8-10.8)
[2023-07-18] MEDS: FORMOTEROL 20 MCG/2 ML VIAL NEB SCH ×2 (07:36→19:06)
[2023-07-18] MEDS: BUDESONIDE 0.5 MG/2 ML VIAL (PULMICORT) NEB SCH ×2 (07:36→19:07)
[2023-07-18] MEDS: SODIUM CHLOR 7% 4 ML NEB NEB SCH (07:36)
[2023-07-18 07:45] LABS: BUN Creatinine Ratio 28.1 (10-20); Calcium 8.6 mg/dl (8.6-10.3); Creatinine Clr Calc Pharmacy 72.9 ml/min; Est GFR (African American) 96.3 ml/min; Est GFR (Non-African American) 83.1 ml/min; Phosphorus 2.3 mg/dl (2.5-4.9); Potassium 3.7 mmol/L (3.5-5.1)
[2023-07-18] MEDS: methylPREDNISolone 40 MG in SYRINGE 0 ML IV SCH (08:03)
[2023-07-18] MEDS: UMECLIDINIUM BROMIDE 62.5MCG/BLISTER 7 PUFFS/INHALER INH SCH (08:03)
[2023-07-18] MEDS: ASPIRIN 81 MG ECTAB PO SCH (08:03)
[2023-07-18] MEDS: FLUDROCORTISONE ACETATE 0.1 MG TAB PO SCH (08:03)
[2023-07-18] MEDS: CITALOPRAM 20 MG TAB PEG SCH (08:03)
--- NOTE | 2023-07-18 08:29 | Pulmonary Consultation ---
Date of Consultation July 18, 2023 Assessment & Plan (1) Respiratory syncytial virus (RSV) infection: (2) Acute respiratory failure with hypoxia: (3) Bronchopneumonia: (4) Aspiration pneumonia: Aspiration pneumonia type: unspecified Laterality: right Lung location: lower lobe of lung Qualified Code(s): J69.0 - Pneumonitis due to inhalation of food and vomit (5) H/O malignant neoplasm of tonsil: (6) Ex-smoker: (7) Chronic bronchitis: Plan CT chest 07/15/2023 personally reviewed: Right apical pleural scarring Motion degraded study Patchy groundglass opacities in the left lower lobe Right lower lobe peripheral pulmonary nodule Linear atelectasis of the right lower lobe Mediastinal lymphadenopathy and station 7, decreased from before Patient had groundglass opacities even on the CT chest done on 08/17/2022. It seems to be mildly decreased especially on the right side. -- Acute respiratory failure with hypoxia Bilateral lower lobe pneumonia, predominantly on the left Aspiration cannot be ruled out Respiratory bio fire positive for RSV, negative for everything else on 07/15/2023 BNP 138 on 07/15/2023 Nasal MRSA negative Procalcitonin 1.37 --Hemoptysis Mild Not on any blood thinners at home, Has already resolved Likely from extensive coughing for more than 4 weeks -- COPD [id number] smoking history, quit at the age of 38 On Spiriva at home --History of head and neck cancer S/p resection and radiation 2011 Plan: Guaifenesin-DM [id number] Mucomyst nebulized Continue with budesonide and formoterol nebulized Continue with antibiotics Please note the above document was generated using voice recognition software. It may contain grammatical, syntax or spelling errors.Any formal questions or concerns about the content, text or information contained within the body of this dictation should be directly addressed to the provider for clarification. History of Present Illness Attending Physician: Jaquan Guillen MD History of Present Illness 78-year-old male presented to the hospital with complaints of cough and shortness of breath Past medical history: Head and neck cancer s/p radical resection of the right neck 2011, s/p radiation, hypothyroidism, hypertension, depression Pulmonary consulted for hemoptysis and abnormal chest CT Patient's was in the room at the time of examination who helped with history At the time of examination patient was saturating 95% on 4 L, I went down to 2 L. He is hard to hear Has been having issues with cough which has been going on for approximately 4-5 weeks. He was given prednisone as an outpatient but no antibiotics per the primary care He does have chest congestion and difficulty bringing up the phlegm He had some blood-tinged phlegm couple of times which has since resolved. Denies any chest pain. No nausea or vomiting No abdominal pain No fever or chills No dysuria, no diarrhea No headache, no blurry vision Patient was recently admitted to the hospital on 05/2022 for pneumonia Social history: [id number] smoking history, quit at the age of 38. 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 Allergies Allergy/AdvReac Type Severity Reaction Status Date / Time levofloxacin Allergy Intermediate rash all Verified 07/15/23 13:03 over body sulfamethoxazole Allergy Intermediate ITCHING Verified 07/15/23 13:03 trimethoprim Allergy Intermediate ITCHING Verified 07/15/23 13:03 terazosin Allergy Unknown DOES NOT Verified 07/15/23 13:03 KNOW Nitrate Analogues AdvReac Severe DROP IN BP Verified 07/15/23 13:03 sertraline AdvReac Intermediate NOSE BLEEDS Verified 07/15/23 13:03 Home Medications Medication Instructions Recorded Confirmed Type citalopram 20 mg tablet 20 mg feeding tube QAM 05/07/18 07/15/23 History food supplemt, lactose-reduced 2 can feeding tube TID 05/07/18 07/15/23 History (Nutritional Drink oral liquid) latanoprost 0.005 % eye drops 1 drp OPB HS 01/30/19 07/15/23 History acetaminophen 500 mg tablet 1,000 mg feeding tube Q6H PRN Pain 03/06/21 07/15/23 History (Tylenol Extra Strength) levothyroxine 88 mcg tablet 88 mcg feeding tube QAM 04/06/21 07/15/23 History (Euthyrox) midodrine 5 mg tablet 10 mg feeding tube TID PRN 05/13/21 07/15/23 History Hypotension atorvastatin 40 mg tablet 40 mg feeding tube HS 06/02/21 07/15/23 History fludrocortisone 0.1 mg tablet 0.1 mg feeding tube DAILY 06/05/22 07/15/23 History tiotropium bromide 2.5 2 puff inhalation QAM 06/05/22 07/15/23 History mcg/actuation mist for inhalation (Spiriva Respimat) formoterol fumarate 20 mcg/2 mL 2 ml inhalation BID #120 mL 06/09/22 07/15/23 Rx solution for nebulization (Perforomist) albuterol sulfate 1.25 mg/3 mL 1.25 mg inhalation Q4H PRN 06/03/23 07/15/23 History solution for nebulization Shortness Of Breath Or Wheezing aspirin 81 mg tablet,delayed 81 mg feeding tube DAILY 06/03/23 07/15/23 History release prednisone 10 mg tablet 10 mg PO .TAPER DIRECTED 07/15/23 07/15/23 History Patient History Medical History (Updated 07/15/23 @ 17:24 by Connie Galvan MD) Acute respiratory failure with hypoxia Abnormal CT scan, neck 07/2022 [facility] - "7 mm lytic lesion within the C3 vertebral body." Per , outpt imaging since being d/c from hospital has r/o mets. History of recent hospitalization 07/2022 [facility] - pneumonia Slow to wake up after anesthesia Speech difficult to understand Hearing loss History of COVID-19 05/2021 treated for pneumonia at [facility]- 06/13/22 admitted to [facility] 06/2022with covid pneumonia, flu, and RSV 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 Blood pressure instability [facility] manages; currently using midodrine, and nitro PRN hypo/hypertension; per , cardiac workup wnl aside from BP changes Hypertension Aspiration pneumonia hx - CAN NOT TAKE FOOD/LIQUIDS ORALLY Degenerative disc disease Osteoarthritis Uses feeding tube GERD (gastroesophageal reflux disease) Hypothyroidism Glaucoma Anxiety Asthma rare use of PRN inh COPD (chronic obstructive pulmonary disease) with emphysema Orthostatic hypotension Gastroparesis Depression Chronic back pain Tonsil carcinoma (Unknown) RADIATION AND CHEMO Benign prostatic hyperplasia (Unknown) Surgical History History of radical neck dissection S/P percutaneous endoscopic gastrostomy (PEG) tube placement History of neck surgery LUMPECTOMY History of tooth extraction S/P colonoscopy (Unknown) S/P arthroscopic knee surgery (Unknown) RT H/O esophagogastroduodenoscopy (Unknown) WITH PLACEMENT PEG TUBE Family History Brother Family history of diabetes mellitus Social History Smoking Status: Former smoker Tobacco Type: Cigarettes Second Hand Exposure: No; Do You Dip or Chew Tobacco: No; Tobacco Cessation Education Requested by Patient: No Hx Alcohol Use: No Hx Substance Use: No Preferred Language: Occitan 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 Ability: Impaired 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 Ability Comment: assist w/ answering questions. 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 Beliefs That Will Affect Care: None marital status: Current Living Situation: Spouse Other Information That Helps Us Care for You: No Feels Safe at Home: Yes Safety Concerns: Feels Safe At This Time Assistive Devices: None Review of Systems 2 Review of Systems: All systems reviewed & are unremarkable except as noted in HPI & below Physical Exam 2 Physical Exam: Constitutional: No acute distress HEENT: EOMI, PERRLA, hard to hear, right neck scar present Respiratory system: Decreased air entry bilaterally, no wheeze, rhonchi, positive crackles bilateral lower lobes more on the left side CVS: S1-S2 positive, no murmurs or gallops Abdomen: Soft, nontender, nondistended, positive bowel sounds x4, positive PEG Extremities: +2 pulses bilaterally radialis/ dorsalis pedis, no cyanosis, no edema Neuro: Awake alert oriented x3 Psych: Normal mood and affect G/U: No Polk Skin: no rashes, warm and dry Lymphatic: no cervical or axillary lymphadenopathy Results & Data Results & Data Vital Signs (Past 12 Hours) Vital Signs Temp Pulse Pulse Resp BP Pulse Ox O2 Del Method 07/18/23 07:59 36.9 C 65 18 168/89 H 97 Nasal Cannula 07/18/23 07:36 66 07/18/23 07:36 63 18 96 Oxymask 07/18/23 03:52 36.8 C 62 17 146/73 H 97 Oxymask 07/17/23 23:35 36.7 C 66 16 135/75 96 Oxymask 07/17/23 21:57 65 07/17/23 20:26 37.0 C 71 18 112/64 95 Nasal Cannula O2 Flow Rate 07/18/23 07:59 2 07/18/23 07:36 07/18/23 07:36 4 07/18/23 03:52 6 07/17/23 23:35 6 07/17/23 21:57 07/17/23 20:26 6 Laboratory Results 07/18/23 06:53 07/18/23 06:53 PG Care Time/CCT Total # of Minutes Spent Total Time Spent with Patient: Total time spent is greater than 50% in coordination of care (as documented) at patient's floor/unit and/or counseling patient: Coding Level of Care Code 30195 INT INP/OBS CARE 3/75MIN Diagnoses Respiratory syncytial virus (RSV) infection B33.8 Acute respiratory failure with hypoxia J96.01 Bronchopneumonia J18.0 Aspiration pneumonia J69.0 Aspiration pneumonia type: unspecified Laterality: right Lung location: lower lobe of lung H/O malignant neoplasm of tonsil Z85.818 Ex-smoker Z87.891 Chronic bronchitis J42
[2023-07-18] MEDS ORDERED: POTASSIUM PHOS 3 MMOL/1 ML INFUSION IV STA (08:41)
[2023-07-18] MEDS ORDERED: POTASSIUM PHOSPHATE 15 MMOL in SODIUM CHLORIDE 0.9% 250 ML IV ONE (09:00)
[2023-07-18] MEDS: ACETYLCYSTEINE 20% INHAL SOLN 4ML ***DISPENSED BY RESP. INH SCH ×2 (11:20→19:06)
[2023-07-18] MEDS: ALBUTEROL 0.083% NEBU SOLN 3 ML VIAL INH PRN (11:20)
[2023-07-18] MEDS: guaiFENesin/DEXTROM SYRUP 200MG/20MG 10ML UDC PO SCH ×2 (14:00→21:31)
--- NOTE | 2023-07-18 15:42 | Hospitalist Progress Note ---
Date of Service July 18, 2023 Assessment & Plan (1) Bronchopneumonia: Plan 78-year-old male with PMH of 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 He is being managed for the following: Bronchopneumonia: RSV infection Hemoptysis: scant blood tinged sputum overnight of 07/17 - 07/18. likely 2/2 extensive coughing. resolved, will follow. 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 Continue with doxycycline and Zosyn 07/15. Wean down oxygen as tolerated. Oxygen requirement improved c/w budesonide and Perforomist nebulization, Mucomyst nebulization added, guaifenesin DM [id number] as cough suppressant. Discussed with pulmonology, appreciate recommendation. Acute respiratory failure with hypoxia: As above Has been requiring up to 2 L to maintain saturation, improving. No evidence of CHF H/O malignant neoplasm of tonsil: History of malignant neoplasm of tonsil status post chemoradiation and neck surgery [address] of the neck did not show any evidence of recurrence or any other significant abnormality Hypothyroidism: Will continue replacement therapy COPD (chronic obstructive pulmonary disease) with emphysema: History of COPD not on any home oxygen Complicated by RSV and bronchopneumonia which could be viral Will continue with intravenous Solu-Medrol Nebulized bronchodilator Antibiotics as above Gastroparesis: Status post PEG tube Depression: Continue current medication DVT prophylaxis: Subcu Lovenox CODE STATUS: Full Admission and Anticipated Discharge Date Admission Date: July 15, 2023 Subjective Patient was seen and examined at bedside. Patient was lying semiupright in bed, patient's at bedside. Patient resting comfortably, not in any acute distress. Patient reports improving cough and reports feeling better. Patient had scant blood in the sputum overnight, but none in the sputum in the morning. Physical Exam Physical Exam: GENERAL: Alert and awake. NAD, on 2 L oxygen via oxygen mask. Appears ill/frail/weak. HEENT: No pallor, no icterus. Pupils equal, round and reactive to light. Oral mucosa moist. NECK: No JVD, no neck masses. HEART: S1 and S2 heard. Regular rate and rhythm. No murmur, no gallop. RESPIRATORY SYSTEM: Normal AP diameter. No accessory muscle use. no rhonci, bilateral crackles. ABDOMEN: Soft, bowel sounds present, nontender, no distention. PEG tube in situ with no signs and symptoms surrounding infection. CENTRAL NERVOUS SYSTEM: No facial droop. Speech is clear. Obeys simple commands. Moves extremities. EXTREMITIES: No edema, no erythema seen. Results & Data Results & Data Vital Signs (Past 12 Hours) Vital Signs Temp Pulse Pulse Resp BP Pulse Ox O2 Del Method 07/18/23 11:54 36.7 C 64 17 152/83 H 91 Room Air 07/18/23 11:25 68 20 91 Room Air 07/18/23 08:00 Oxymask 07/18/23 07:59 36.9 C 65 18 168/89 H 97 Nasal Cannula 07/18/23 07:36 66 07/18/23 07:36 63 18 96 Oxymask 07/18/23 03:52 36.8 C 62 17 146/73 H 97 Oxymask O2 Flow Rate 07/18/23 11:54 07/18/23 11:25 07/18/23 08:00 2 07/18/23 07:59 2 07/18/23 07:36 07/18/23 07:36 4 07/18/23 03:52 6
[2023-07-18] MEDS: ENOXAPARIN INJ 40 MG/0.4 ML SYR SQ SCH (16:02)
[2023-07-18] MEDS: LATANOPROST 0.005% OP SOLN 2.5 ML BTL OPB SCH (20:34)
[2023-07-18] MEDS: ATORVASTATIN 40 MG TAB PEG SCH (20:34)
[2023-07-19] MEDS: TUBE FEEDING WATER FLUSH PEG SCH ×5 (03:42→20:12)
[2023-07-19] MEDS: PIPERACILLIN/TAZOBACTAM 4.5 GM in DEXTROSE 5% MINI-B 100 ML IV SCH ×3 (04:14→21:14)
[2023-07-19] MEDS: guaiFENesin/DEXTROM SYRUP 200MG/20MG 10ML UDC PO SCH ×3 (06:02→21:17)
[2023-07-19] MEDS: LEVOTHYROXINE SODIUM 88 MCG TABLET PEG SCH (06:02)
[2023-07-19] MEDS: ACETYLCYSTEINE 20% INHAL SOLN 4ML ***DISPENSED BY RESP. INH SCH (07:12)
[2023-07-19] MEDS: FORMOTEROL 20 MCG/2 ML VIAL NEB SCH ×2 (07:12→20:07)
[2023-07-19] MEDS: BUDESONIDE 0.5 MG/2 ML VIAL (PULMICORT) NEB SCH ×2 (07:13→20:07)
[2023-07-19 07:45] LABS: Hematocrit (blood only) 35.7 % (42.0-52.0); Hemoglobin 12.2 g/dl (14.0-18.0); Mean Corpuscular Hemoglobin 31.6 pg (25.0-34.0); Mean Corpuscular Hgb Conc 34.2 g/dL (32.0-36.0); Mean Corpuscular Volume 92.5 fL (80.0-100.0); Mean Platelet Volume 11.3 fL (9.4-12.4); Platelet Count 160 K/uL (130-400); RDW Coefficient of Variation 13.3 % (11.5-14.5); RDW Standard Deviation 44.9 fL (36.4-46.3); Red Blood Count 3.86 M/uL (4.70-6.10); White Blood Count 7.81 K/ul (4.8-10.8)
[2023-07-19 08:09] LABS: BUN Creatinine Ratio 23.5 (10-20); Calcium 8.5 mg/dl (8.6-10.3); Creatinine Clr Calc Pharmacy 76.3 ml/min; Est GFR (African American) 98.1 ml/min; Est GFR (Non-African American) 84.6 ml/min; Phosphorus 3.3 mg/dl (2.5-4.9); Potassium 3.4 mmol/L (3.5-5.1)
[2023-07-19] MEDS: DOXYCYCLINE HYCLATE 100 MG in DEXTROSE 5% MINI-B 100 ML IV SCH ×2 (08:35→18:25)
[2023-07-19] MEDS: FLUDROCORTISONE ACETATE 0.1 MG TAB PO SCH (08:36)
[2023-07-19] MEDS: CITALOPRAM 20 MG TAB PEG SCH (08:36)
[2023-07-19] MEDS: UMECLIDINIUM BROMIDE 62.5MCG/BLISTER 7 PUFFS/INHALER INH SCH (08:36)
[2023-07-19] MEDS: ASPIRIN 81 MG CHEW PEG SCH (09:40)
[2023-07-19] MEDS: methylPREDNISolone 40 MG in SYRINGE 0 ML IV SCH (09:40)
[2023-07-19] MEDS: PEPTAMEN 1.5 CAL 1,000 ML BAG PEG SCH (11:27)
[2023-07-19] MEDS ORDERED: POTASSIUM CHLORIDE 20 MEQ/15 ML UDC PO STA (14:10)
--- NOTE | 2023-07-19 14:14 | Hospitalist Progress Note ---
Date of Service July 19, 2023 Assessment & Plan (1) Bronchopneumonia: Plan 78-year-old male with PMH of 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 He is being managed for the following: Bronchopneumonia: RSV infection Hemoptysis: scant blood tinged sputum overnight of 07/17 - 07/18. likely 2/2 extensive coughing. resolved, will follow. 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 Continue with doxycycline and Zosyn 07/15. Wean down oxygen as tolerated. Oxygen requirement improving c/w budesonide and Perforomist nebulization, Mucomyst nebulization dc'd pt can't tolerate, guaifenesin DM [id number] as cough suppressant. Pulmonology evaluated, appreciate recs Taper down steroids. Acute respiratory failure with hypoxia: As above Has been requiring up to 2 L to maintain saturation, improving. No evidence of CHF H/O malignant neoplasm of tonsil: History of malignant neoplasm of tonsil status post chemoradiation and neck surgery [address] of the neck did not show any evidence of recurrence or any other significant abnormality Hypothyroidism: Will continue replacement therapy COPD (chronic obstructive pulmonary disease) with emphysema: History of COPD not on any home oxygen Complicated by RSV and bronchopneumonia which could be viral Will continue with intravenous Solu-Medrol Nebulized bronchodilator Antibiotics as above Gastroparesis: Status post PEG tube Depression: Continue current medication DVT prophylaxis: Subcu Lovenox CODE STATUS: Full Admission and Anticipated Discharge Date Admission Date: July 15, 2023 Subjective Patient was seen and examined at bedside. Patient was lying semiupright in bed, patient's at bedside. Patient resting comfortably, not in any acute distress. Patient reports improving cough and reports feeling better. Patient cannot tolerate Mucomyst nebs, reports bringing up sputum better with hypertonic saline nebs. Otherwise patient reports feeling better. Physical Exam Physical Exam: GENERAL: Alert and awake. NAD, on 2 L oxygen via oxygen mask. Appears ill/frail/weak. HEENT: No pallor, no icterus. Pupils equal, round and reactive to light. Oral mucosa moist. NECK: No JVD, no neck masses. HEART: S1 and S2 heard. Regular rate and rhythm. No murmur, no gallop. RESPIRATORY SYSTEM: Normal AP diameter. No accessory muscle use. no rhonci, bilateral crackles. ABDOMEN: Soft, bowel sounds present, nontender, no distention. PEG tube in situ with no signs and symptoms surrounding infection. CENTRAL NERVOUS SYSTEM: No facial droop. Speech is clear. Obeys simple commands. Moves extremities. EXTREMITIES: No edema, no erythema seen. Results & Data Results & Data Vital Signs (Past 12 Hours) Vital Signs Temp Pulse Pulse Resp BP Pulse Ox O2 Del Method 07/19/23 12:39 36.6 C 63 18 117/71 93 Room Air 07/19/23 08:40 36.4 C L 63 18 152/77 H 91 Oxymask 07/19/23 08:00 Oxymask 07/19/23 07:54 60 18 96 Nasal Cannula 07/19/23 07:28 60 07/19/23 06:01 36.7 C 59 L 20 111/64 92 Oxymask O2 Flow Rate 07/19/23 12:39 07/19/23 08:40 1 07/19/23 08:00 2 07/19/23 07:54 2 07/19/23 07:28 07/19/23 06:01 2
--- NOTE | 2023-07-19 15:49 | Pulmonology Progress Note ---
Date of Service July 19, 2023 Assessment & Plan (1) Respiratory syncytial virus (RSV) infection: (2) Acute respiratory failure with hypoxia: (3) Bronchopneumonia: (4) Aspiration pneumonia: Aspiration pneumonia type: unspecified Laterality: right Lung location: lower lobe of lung Qualified Code(s): J69.0 - Pneumonitis due to inhalation of food and vomit (5) H/O malignant neoplasm of tonsil: (6) Ex-smoker: (7) Chronic bronchitis: Plan 78-year-old male with a past medical history of head neck cancer who presented to the hospital with bronchial pneumonia and RSV infection. Continue supportive treatment for RSV infection. Chest x-ray 07/17/2023 with mild subsegmental bibasilar densities. He did have a chest CTA 07/15/2023 which revealed bibasilar mucous plugging and lower lobe infiltrates concerning for possible aspiration. The patient is currently on Zosyn and doxycycline. Blood cultures have been negative to date. Unfortunately sputum cultures have not been obtained. I have ordered for sputum cultures today. I suspect his antibiotics can be transitioned to Levaquin in the next day or 2 as long as the sputum cultures do not reveal any multidrug- resistant organism. He did have a history of Serratia isolated from sputum cultures in 2021 which was resistant to ceftriaxone. He is currently on prednisone therapy for what I am assuming was a presumptive diagnosis COPD exacerbation on admission. I do not hear any significant wheezes currently. I would not recommend a course of prednisone beyond 5 days. Unfortunately, no prior PFTs available for review. There is no significant emphysema seen on chest CTA. It is unclear whether the patient truly has COPD. Thank you for the consult. Pulmonary will follow. Admission and Anticipated Discharge Date Admission Date: July 15, 2023 Subjective Patient seen and examined. at bedside. Difficult to communicate with the patient verbally as he is unable to speak due to history of tonsillar cancer status post chemoradiation and neck dissection. He is also very hard of hearing. He is able to answer my questions by writing. He denies any significant chest pain but endorses a cough productive of yellow sputum. He also had an episode of epistaxis earlier today. He does endorse some dyspnea with exertion. His oxygenation has improved and he is currently saturating 93% on room air. Review of Systems Review of Systems: All systems reviewed & are unremarkable except as noted in HPI & below Physical Exam Physical Exam: Constitutional: No acute distress HEENT: EOMI, PERRLA, hard to hear, right neck scar present Respiratory system: Decreased air entry bilaterally, no wheeze, rhonchi, positive crackles bilateral lower lobes more on the left side CVS: S1-S2 positive, no murmurs or gallops Abdomen: Soft, nontender, nondistended, positive bowel sounds x4, positive PEG Extremities: +2 pulses bilaterally radialis/ dorsalis pedis, no cyanosis, no edema Neuro: Awake alert oriented x3 Psych: Normal mood and affect G/U: No Polk Skin: no rashes, warm and dry Lymphatic: no cervical or axillary lymphadenopathy Results & Data Results & Data Vital Signs (Past 12 Hours) Vital Signs Temp Pulse Pulse Resp BP Pulse Ox O2 Del Method 07/19/23 15:00 77 07/19/23 12:39 36.6 C 63 18 117/71 93 Room Air 07/19/23 08:40 36.4 C L 63 18 152/77 H 91 Oxymask 07/19/23 08:00 Oxymask 07/19/23 07:54 60 18 96 Nasal Cannula 07/19/23 07:28 60 07/19/23 06:01 36.7 C 59 L 20 111/64 92 Oxymask O2 Flow Rate 07/19/23 15:00 07/19/23 12:39 07/19/23 08:40 1 07/19/23 08:00 2 07/19/23 07:54 2 07/19/23 07:28 07/19/23 06:01 2 PG Care Time/CCT Total # of Minutes Spent Total Time Spent with Patient: Total time spent is greater than 50% in coordination of care (as documented) at patient's floor/unit and/or counseling patient: Coding Level of Care Code 87316 SUB INP/OBS CARE 3/50MIN Diagnoses Respiratory syncytial virus (RSV) infection B33.8 Acute respiratory failure with hypoxia J96.01 Bronchopneumonia J18.0 Aspiration pneumonia J69.0 Aspiration pneumonia type: unspecified Laterality: right Lung location: lower lobe of lung H/O malignant neoplasm of tonsil Z85.818 Ex-smoker Z87.891 Chronic bronchitis J42
[2023-07-19] MEDS: ENOXAPARIN INJ 40 MG/0.4 ML SYR SQ SCH (17:02)
[2023-07-19] MEDS: SODIUM CHLOR 7% 4 ML NEB NEB SCH (20:07)
[2023-07-19] MEDS: LATANOPROST 0.005% OP SOLN 2.5 ML BTL OPB SCH (21:16)
[2023-07-19] MEDS: ATORVASTATIN 40 MG TAB PEG SCH (21:17)
[2023-07-20] MEDS: TUBE FEEDING WATER FLUSH PEG SCH ×4 (00:03→12:20)
[2023-07-20] MEDS: PIPERACILLIN/TAZOBACTAM 4.5 GM in DEXTROSE 5% MINI-B 100 ML IV SCH ×2 (03:58→13:09)
[2023-07-20] MEDS: guaiFENesin/DEXTROM SYRUP 200MG/20MG 10ML UDC PO SCH (05:36)
[2023-07-20] MEDS: LEVOTHYROXINE SODIUM 88 MCG TABLET PEG SCH (05:36)
[2023-07-20] MEDS: DOXYCYCLINE HYCLATE 100 MG in DEXTROSE 5% MINI-B 100 ML IV SCH (06:16)
[2023-07-20 06:49] LABS: BUN Creatinine Ratio 25.3 (10-20); Calcium 8.5 mg/dl (8.6-10.3); Creatinine Clr Calc Pharmacy 74.6 ml/min; Est GFR (African American) 97.2 ml/min; Est GFR (Non-African American) 83.8 ml/min; Potassium 3.3 mmol/L (3.5-5.1)
[2023-07-20] MEDS: PEPTAMEN 1.5 CAL 1,000 ML BAG PEG SCH (07:53)
[2023-07-20] MEDS: BUDESONIDE 0.5 MG/2 ML VIAL (PULMICORT) NEB SCH (07:57)
[2023-07-20] MEDS: ASPIRIN 81 MG CHEW PEG SCH (07:57)
[2023-07-20] MEDS: CITALOPRAM 20 MG TAB PEG SCH (07:57)
[2023-07-20] MEDS: FLUDROCORTISONE ACETATE 0.1 MG TAB PO SCH (07:57)
[2023-07-20] MEDS: FORMOTEROL 20 MCG/2 ML VIAL NEB SCH (07:57)
[2023-07-20] MEDS: SODIUM CHLOR 7% 4 ML NEB NEB SCH (07:57)
[2023-07-20] MEDS: UMECLIDINIUM BROMIDE 62.5MCG/BLISTER 7 PUFFS/INHALER INH SCH (07:58)
[2023-07-20] MEDS ORDERED: predniSONE 20 MG TAB GT SCH (09:00)
--- NOTE | 2023-07-20 09:30 | Pulmonology Progress Note ---
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 RECOMMENDATIONS: 1. RSV infection - Clinically improved at this time. He continues to saturate well on room air. He feels much better at this time and his request to be discharged home soon. He does have nebulizers at home and his feels as though he is near his baseline at this time. 2. Acute respiratory failure with hypoxia - In the setting of RSV infection with superimposed possible degree of aspiration pneumonitis. De-escalate antibiotics as tolerated. Sputum culture results pending at this time. 3. Pneumonia/aspiration pneumonitis - Continue with antibiotic coverage. De- escalate as tolerated. Sputum culture still pending. 4. Clinically, the patient appears well at this time. He is saturating well on room air. Hopefully, his cultures are resulted today and his antibiotics can be de-escalated appropriately with the anticipation of discharge soon. Thank you for allowing us to participate in the care of this patient. Pulmonary medicine will sign off at this time. Admission and Anticipated Discharge Date Admission Date: July 15, 2023 Subjective Patient seen and evaluated at bedside today. He is accompanied by his who does most of the speaking for him secondary to his speech difficulty in the setting of radical head and neck surgery. She has noticed a significant difference. He does do better after his nebulizer treatments which she has at home as well. He describes no complaints of chest pain or worsening cough. He feels much better at this time and is requesting to be discharged home. Review of Systems Review of Systems: A complete 10 point review of systems was reviewed with the patient with pertinent positives and negatives as per history of present illness. All else were negative. Physical Exam Physical Exam: VITAL SIGNS - Vital signs and nursing notes were reviewed. GENERAL - 78-year-old male appearing his stated age who is in no acute distress. LUNGS - Auscultation reveals slight coarseness at the lung bases. No wheezes appreciated. CARDIAC - RRR with S1/S2. No murmur, rubs, or gallops appreciated. PSYCH - A&Ox3 and cooperates fully with examiner. Pt is very pleasant and interacts well with examiner. Results & Data Results & Data Vital Signs (Past 12 Hours) Vital Signs Temp Pulse Pulse Resp BP Pulse Ox O2 Del Method 07/20/23 07:57 62 20 94 Oxymask 07/20/23 07:27 36.4 C L 59 L 18 148/77 H 98 Other 07/20/23 05:36 36.7 C 58 L 20 143/80 H 94 Room Air 07/19/23 23:30 36.3 C L 56 L 18 134/76 94 Room Air 07/19/23 22:00 60 O2 Flow Rate 07/20/23 07:57 4 07/20/23 07:27 07/20/23 05:36 07/19/23 23:30 07/19/23 22:00 PG Care Time/CCT Total # of Minutes Spent Total Time Spent with Patient: Total time spent is greater than 50% in coordination of care (as documented) at patient's floor/unit and/or counseling patient: Coding Level of Care Code 02923 SUB INP/OBS CARE 2/35MIN Diagnoses Respiratory syncytial virus (RSV) infection B33.8 Acute respiratory failure with hypoxia J96.01 Bronchopneumonia J18.0 Aspiration pneumonia J69.0 Aspiration pneumonia type: unspecified Laterality: right Lung location: lower lobe of lung H/O malignant neoplasm of tonsil Z85.818 Ex-smoker Z87.891 Chronic bronchitis J42
[2023-07-20] MEDS: POTASSIUM CHLORIDE 20 MEQ/15 ML UDC PO SCH ×2 (09:58→12:21)
--- NOTE | 2023-07-20 12:38 | Discharge Summary ---
Date of Service July 20, 2023 Admission HPI Per Admitting Provider He cannot hear and cannot talk and the history is taken from the . 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 He was seen by his primary care physician yesterday and apparent blood test and EKG came out to be unremarkable. He was given a short course of prednisone to help his shortness of breath. He woke up at night with increasing shortness of breath cough and shaking chills and was brought into the emergency room for further evaluation. Remains very short of breath emergency room and requiring up to 4 to 6 L of oxygen to maintain saturation noted to have RSV virus infection and also bronchopneumonia on CT scan without any evidence of pulmonary embolism. Blood cultures were taken, MRSA screen sent and he was started with intravenous cefepime and vancomycin for now. Admitted to medical telemetry unit for continuation of care. Denies any fever and or chills no abdominal pain nausea no vomiting and does not have any problem with urine or bowel habit. Admission Exam Per Admitting Provider Physical Exam: Lying in bed with moderate shortness of breath at rest Constitutional: + ill appearing and average body habitus Eyes: PERRL, conjunctivae normal, anicteric sclerae ENMT: external ear and nose normal, oropharynx normal Neck: trachea midline, no thyromegaly Respiratory: + respiratory distress (Moderate respira tory distress) Auscultation: + diminished lung sounds and + crackles (Bilateral crackles at the bases) Cardiovascular: Rate/Rhythm: regular rate and regular rhythm; not tachycardic Heart Sounds: normal S1 and normal S2; no murmur Extremities: no edema Gastrointestinal (Abdomen): Inspection/Auscultation: normal bowel sounds; abdomen not distended Percussion/Palpation: abdomen soft; abdomen nontender PEG tube in situ Musculoskeletal: No acute arthritis involving any of the joint Neurologic: normal touch/pain/proprioception and moves all extremities; no focal motor deficits Alert and awake Lymphatic: no cervical or axillary lymphadenopathy Principal Diagnosis Bronchopneumonia RSV infection Hemoptysis Acute respiratory failure with hypoxia Discharge Exam GENERAL: Alert and awake. NAD, on RA. HEENT: No pallor, no icterus. Pupils equal, round and reactive to light. Oral mucosa moist. NECK: No JVD, no neck masses. HEART: S1 and S2 heard. Regular rate and rhythm. No murmur, no gallop. RESPIRATORY SYSTEM: Normal AP diameter. No accessory muscle use. no rhonci, bilateral crackles - improving. ABDOMEN: Soft, bowel sounds present, nontender, no distention. PEG tube in situ with no signs and symptoms surrounding infection. CENTRAL NERVOUS SYSTEM: No facial droop. Speech is clear. Obeys simple commands. Moves extremities. EXTREMITIES: No edema, no erythema seen. Discharge Data Allergies Allergy/AdvReac Type Severity Reaction Status Date / Time levofloxacin Allergy Intermediate rash all Verified 07/15/23 13:03 over body sulfamethoxazole Allergy Intermediate ITCHING Verified 07/15/23 13:03 trimethoprim Allergy Intermediate ITCHING Verified 07/15/23 13:03 terazosin Allergy Unknown DOES NOT Verified 07/15/23 13:03 KNOW Nitrate Analogues AdvReac Severe DROP IN BP Verified 07/15/23 13:03 sertraline AdvReac Intermediate NOSE BLEEDS Verified 07/15/23 13:03 Consultations 07/15/23 14:22 ED Decision to Admit Stat 07/18/23 07:24 Consult Pulmonology Routine Ordered Studies 07/15/23 11:36 CT angio chest PE protocol Stat 07/15/23 12:19 CT soft tissue neck w con Stat Hospital Course (1) Bronchopneumonia: Plan 78-year-old male with PMH of 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 He is being managed for the following: Bronchopneumonia: RSV infection Hemoptysis: scant blood tinged sputum overnight of 07/17 - 07/18. likely 2/2 extensive coughing. resolved, will follow. 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 Continue with doxycycline and Zosyn 07/15. Patient clinically improving, improving cough, feels better. Will discharge on p.o. antibiotic to complete the course. Patient has been moving around and has not needed oxygen. Has been successfully weaned down. c/w guaifenesin DM [id number] as cough suppressant upon discharge and completed a steroid taper. Follow-up with PCP in 3 to 5 days after discharge to follow-up on final results of a sputum culture collected this hospital admission. Pulmonology evaluated, appreciate recs Acute respiratory failure with hypoxia: Resolved H/O malignant neoplasm of tonsil: History of malignant neoplasm of tonsil status post chemoradiation and neck surgery [address] of the neck did not show any evidence of recurrence or any other significant abnormality Hypothyroidism: Will continue replacement therapy COPD (chronic obstructive pulmonary disease) with emphysema: History of COPD not on any home oxygen Complicated by RSV and bronchopneumonia which could be viral Will continue with intravenous Solu-Medrol Nebulized bronchodilator Antibiotics as above Gastroparesis: Status post PEG tube Depression: Continue current medication DVT prophylaxis: Subcu Lovenox CODE STATUS: Full Patient is being discharged home with following instruction at the point of discharge: Follow-up with your primary care physician within a week time and likely you will need labs CBC/CMP/magnesium/phosphorus. You will be discharged on antibiotic - you can crush them and use via peg tube, you will need to follow-up on the final results of your sputum culture obtained in the hospital with your PCP visit. Follow-up with your PCP in next 3 to 5 days upon discharge. This might change the antibiotic management of your current infection. So it is important that you follow-up within 3 to 5 days with the PCP office. You will be discharged on few days of prednisone. Take your medications as prescribed. Please make sure that you are able to get your medications today by calling your pharmacy before you leave the hospital so that your treatment continuity is not broken. Home Health Attestation I certify that this patient is under my care and that I, or a physicians home health assistant working with me, had a face to-face encounter that meets the home health [id number] encounter requirements with this patient. The encounter with the patient was in whole, or in part, for the following medical condition, which is the primary reason for home health care (list medical condition): I certify that, based on my findings, the following services are medically necessary home health services: My clinical findings support the need for the above services because: Further, I certify that my clinical findings support that this patient is homebound (i.e. absences from home require considerable and taxing effort and are for medical reasons or buddhism services or infrequently or of short duration when for other reasons) because: Certification for Home Health Services: Based on the above findings, I certify that this patient is confined to the home and needs intermittent assisted care, physical therapy and/or speech therapy or continues to need occupational therapy. The patient is under my care, and I have initiated the establishment of the plan of care. This patient will be followed by a physician who will periodically review the plan of care. Total Time Total Time Spent Total Time Spent (In Minutes): 45 Discharge Plan Discharge Items Patient Disposition: Home - Home Health Services Reason For Visit: INCREASING SOB-BRONCHOPNEUMONIA Discharge Diagnosis: Bronchopneumonia RSV infection Hemoptysis Acute respiratory failure with hypoxia Activity: Resume your previous activity Non-emergency contact: Primary Care Provider Call non-emergency contact if: you have any medication questions Follow-up/Referrals: Sanjiv Hart MD [Primary Care Provider] - Diet: Other - See Diet Comment Diet Comment: Tube feeding Addtl Attending Provider Instructions: Follow-up with your primary care physician within a week time and likely you will need labs CBC/CMP/magnesium/phosphorus. You will be discharged on antibiotic - you can crush them and use via peg tube, you will need to follow-up on the final results of your sputum culture obtained in the hospital with your PCP visit. Follow-up with your PCP in next 3 to 5 days upon discharge. This might change the antibiotic management of your cu rrent infection. So it is important that you follow-up within 3 to 5 days with the PCP office. You will be discharged on few days of prednisone. Take your medications as prescribed. Please make sure that you are able to get your medications today by calling your pharmacy before you leave the hospital so that your treatment continuity is not broken. Pending Studies at Discharge: Yes Studies:: Sputum culture and blood culture. Stand-Alone Forms: My Secu[employer], Smoking Cessation Medications and DC Order Prescriptions: New prednisone 20 mg Tablet 20 mg G-tube DAILY 3 Days Qty: 3 0RF Robitussin Cough-Chest Jesus DM 5-100 mg/5 mL Liquid 10 ml PO Q8 7 Days Qty: 237 0RF amoxicillin-pot clavulanate 875-125 mg tablet 1 tab PO BID 5 Days Qty: 10 0RF doxycycline hyclate 100 mg tablet 100 mg PO BID 3 Days Qty: 6 0RF Probiotic 3 billion cell capsule 3,000 mmu cells PO DAILY 7 Days Qty: 7 0RF Rx Instructions: administer with a meal Continued latanoprost 0.005 % Drops 1 drp OPB HS citalopram 20 mg tablet 20 mg Feeding Tube QAM Nutritional Drink Liquid 2 can Feeding Tube TID acetaminophen [Tylenol Extra Strength] 500 mg Tablet 1,000 mg feeding tube Q6H PRN (Reason: Pain) levothyroxine [Euthyrox] 88 mcg tablet 88 mcg feeding tube QAM atorvastatin 40 mg tablet 40 mg feeding tube HS albuterol sulfate 1.25 mg/3 mL solution for nebulization 1.25 mg inhalation Q4H PRN (Reason: Shortness Of Breath Or Wheezing) aspirin 81 mg Tablet,Delayed Release (Dr/Ec) 81 mg feeding tube DAILY midodrine 5 mg Tablet 10 mg feeding tube TID PRN (Reason: Hypotension) Rx Instructions: PRN systolic BP < 180 fludrocortisone 0.1 mg tablet 0.1 mg feeding tube DAILY Spiriva Respimat 2.5 mcg/actuation mist 2 puff INHALATION QAM formoterol fumarate [Perforomist] 20 mcg/2 mL solution for nebulization 2 ml inhalation BID Qty: 120 0RF Rx Instructions: This is per [facility] but dies not remember this. Discontinued prednisone 10 mg tablet 10 mg PO .TAPER DIRECTED Discharge Orders: Discharge Order (Routine); Ordered 07/20/23 Ordered By: Jaquan Guillen Admission Data Admit Date/Time: 07/15/23 14:57 Attending Provider: Jaquan Guillen Admit Provider: Deja Soto Primary Care Provider: Sanjiv Hart. Other Providers: Deja Soto; Joseph Quintero; Estevan Samuels; Jez Aden; Germaine Simon; Chani Walker; Ivet Lam; Chepe Becerra; Sanjiv Murillo; Vanessa Thayer
[2023-07-21] MEDS ORDERED: predniSONE 20 MG TAB GT SCH (09:00)
== END 2023-07-20 14:44 | disposition home or self-care (01) | DRG 193 ==
LOC: ED 10:39 → SUATTDRO 14:57 → EDINP 14:57 → 2W 17:28

== ENCOUNTER 2024-01-30 20:18 | Observation (INO) ==
--- OUTSIDE RECORDS SUMMARY | 2024-01-30 20:25 | External Medical Summary | Summary of Care ---
Author Name Unknown Organization [facility] Address [address] [place] [address] Phone [phone] Care Team Providers Care Animal Science Instructor Name Role Phone Tanner CANTU MD, Sanjiv Moser Primary Care Provider [phone] Reason for Visit * Reason Onset Date Comments Order Request 10/25/2023 Encounter Details Date Type Department Care Team (Late st Contact Info) Description 10/25/2023 Telephone Family Practice [facility] [address] [facility] [place] [address] Patricia Leal PA-C [address] [facility] [place] [address] Order Request Allergies Active Allergy Reactions Criticality Noted Date Comments Sulfamethoxazole-Trimethoprim Hives Medium 2016 Levofloxacin Rash Low 03/03/2017 Lisinopril 03/12/2021 Raises bp Nitrates, Organic 09/07/2000 Unconsciousness Sertraline Low 02/09/2019 Other reaction(s): NOSE BLEEDS Sulfamethoxazole Itching High 02/09/2019 Terazosin 12/08/2001 priaprism Trimethoprim Itching High 02/09/2019 documented as of this encounter (statuses as of 01/24/2024) Medications Medication Sig Dispensed Refills Start Date End Date Status Acetaminophen 500 MG Oral Capsule Administer 2 Capsules into G tube every 6 hours as needed for Pain, Moderate. 03/10/2021 Active Glucose 40 % Oral Gel (Glutose 15) 01/19/2021 Active Aspirin EC 81 MG Oral Tablet Delayed Release Take 1 Tab by mouth daily. 90 Tab 3 04/24/2021 Active Additional Information Patient not taking.Reported on 09/23/2023 Formoterol Fumarate 20 MCG/2ML Inhalation Nebulization SolutionIndications: Unspecified chronic bronchitis (HCC) Inhale 2 mL by mouth in the morning and 2 mL before bedtime. 120 mL 5 06/30/2022 Active OneTouch Ultra In Vitro Strip (Glucose Blood)Indications:Hy poglycemia USE DIRECTED FOUR TIMES A DAY NEEDED FOR HYPERGLYCEMIA (HIGH SUGAR). DX:E11.9 100 Strip 5 10/28/2022 Active Dexcom G7 SensorIndications:Hy poglycemia Use 1 Units as directed daily. 1 Each 5 06/09/2023 Active Dexcom G7 Aerial Hurricane Hunter DeviceIndications:Hy poglycemia Use 1 Units as directed daily. 1 Each 2 06/09/2023 Active Boost Plus Oral LiquidIndications:Dy sphagia,At high risk for aspiration Take 2 cans 4 times daily @ 7am,11 am,3 pm, 7 pm 720 mL 1 07/28/2023 Active Albuterol Sulfate 1.25 MG/3ML Inhalation Nebulization SolutionIndications: Wheezing,Bronchitis, complicated,COPD exacerbation (HCC),COPD, group C, by GOLD 2017 classification (HCC) Inhale 1 vial via nebulizer every 4 hours as needed for Shortness of Breath or Wheezing. 360 mL 3 07/27/2023 Active Midodrine HCl 5 MG Oral Tablet (Proamatine)Indicati ons:Orthostatic hypotension TAKE 2 TABLETS BY MOUTH THREE TIMES DAILY NEEDED FOR HYPOTENSION (FOR BLOOD PRESSURE LESS THAN 80MM HG SYSTOLIC) 540 Tablet 07/30/2023 Active Latanoprost 0.005 % Ophthalmic Solution (Xalatan) Instill 1 Drop into both eyes every evening. 10 mL 3 08/19/2023 Active Atorvastatin Calcium 40 MG Oral Tablet (Lipitor)Indications :Coronary artery disease involving [place] coronary artery of [place] heart without angina pectoris Take 1 Tablet by mouth in the morning. 90 Tablet 3 10/18/2023 Active Levothyroxine Sodium 88 MCG Oral Tablet (Levoxyl) Administer 1 Tablet into G tube in the morning. (at least 30 min prior to breakfast or other meds). 90 Tablet 3 10/18/2023 Active documented as of this encounter (statuses as of 01/24/2024) Active Problems Problem Noted Date Diagnosed Date Coronary artery disease invo lving [place] coronary artery of [place] heart without angina pectoris 10/25/2023 MRI contraindicated due to metal implant 023 Protein-calorie malnutrition 08/06/2022 History of 2019 novel coronavirus disease [...] as of this encounter (statuses as of 01/24/2024) Resolved Problems Problem Noted Date Diagnosed Date Resolved Date COPD exacerbation 08/06/2022 10/25/2023 Overview: history Unspecified protein-calorie malnutrition 09/11/2020 02/08/2021 Panic attacks [...] 10/23/2008 02/16/2013 ACTIVE CASE MANAGEMENT-Yanet Landa Rn- [phone] 09/28/2007 02/16/2008 Malignant neoplasm soft tissue head [...] as of this encounter (statuses as of 01/24/2024) Immunizations Name Administration Dates Next Due COVID-19 [...] t, High Dose, No Preserve, IM 05/02/2019,05/19/2017 TDAP, Age 7 and older, IM (Adacel) 10/02/2011 Varicella Zoster Vaccine (Adult) 04/19/2012 documented as of this encounter Social History Tobacco Use Types Packs/Day Years Used Date Smoking Tobacco: Former Cigarettes 0.5 5 1 08/19/1973 - 06/18/1979 Smokeless Tobacco: Never Alcohol Use Standard [...] in the Last Year Never true 02/19/2020 Utilities Answer Date Recorded Do you have trouble paying y our heating, water, or electric bill? (Adult - for ages 18 years and over) Not on file 01/04/2024 Is your family able to pay t he heat, water, or electric bill? (Household - for ages 0-17 years) Not on file 01/04/2024 Does your family have access to good internet? (Household - for ages 0-17 years) Not on file 01/04/2024 Social Connections Answer Date Recorded How often do you feel lonely or isolated from those around you? (Adult - for ages 18 years and over) Not on file 01/04/2024 Sex and Gender Information Value Date Recorded [...] Care Team (Late st Contact Info) Description 02/25/2024 2:00 PM EDT Office Visit [facility] [address] [address] Marta Moran MD [address] [place] [address] Flash Cortes Nurse [address] [place] [id number] Photographer Sophia [address] [address] 05/25/2024 10:20 AM EST Office Visit Nephrology [address] [place] [address] Jayden Vasques MD [address] [place] [address] 09/08/2024 1:40 PM EST Office Visit [facility] [address] [place], [place] [address] Jayden Vasques MD [address] [facility] [place] [address] Scheduled Procedures Name Priority Associated Diagnoses Date/Ti me COLONOSCOPY FLEXIBLE PROXIMAL DIAGNOSTIC Recall History of colon polyps Health Maintenance Due Date Last Done Comments Alpha-1 Antitrypsin 1965 *ADVANCE DIRECTIVE NOT ON FILE 05/06/2019 DTaP,Tdap,and Td Vaccines (2 - Td or Tdap) 10/01/2021 10/02/2011, 07/26/2003, 07/19/1992 COVID-19 Vaccine (4 - 2022- season) 2023 02/18/2022, 10/11/2020, 09/13/2020 Depression Monitoring 02/03/2024 02/02/2023 Influenza Vaccine (FLU shot) (#1) 2024 04/06/2023, 05/01/2022, 05/01/2022, Additional history exists TSH 07/30/2024 07/30/2023, 02/16, 03/15/2021, Additional history exists GFR 09/02/2024 09/02/2023, 06/19, 06/09/2023, Additional history exists O2 ASSESSMENT COMPLETED IN PAST YEAR FOR COPD 01/18/2025 01/19/2024 Colonoscopy 08/08/2026 08/08/2021, 03/19, 11/13/2014, Additional history exists Albumin/Creatinine Ratio 09/20/2026 09/21/2023, 01/17 Zoster Vaccines Discontinued 04/19/2012 Hepatitis C Screening Completed 08/02/2013 Pneumococcal Vaccine: 65+ Years Completed 02/24/2016, 10/26/2014, 04/19/2008 RETIRED - COLONOSCOPY-EVERY 5 YRS AGES 18-100 Discontinued 08/08/2021, 04/04/2019, 11/13/2014, Additional history exists HPV (Gardasil) Vaccine Aged Out No lo nger eligible based on patient's age to complete this topic Hepatitis B Vaccine Aged Out No longe r eligible based on patient's age to complete this topic MENINGOCOCCAL (MENACTRA/MENVEO) Aged Out No longer eligible based on patient's age to complete this topic documented as of this encounter Medical Devices Implanted Type Area Printing Press Operator Apprentice Device Identifier Shelf Expiration Date Model / Serial / Lot [id number] - [id number] Implanted:Qty : 1 on 09/26/2007 at [place] [facility] Tissue - Human Right: Neck [employer] 10/17/2008 [id number] / / [id number] Description:alloderm 3x7cm Elect Nucleus Slim Str [id number] - [id number] Implanted:Qty : 1 on 12/21/2022 by Ollie Borja MD at [place] [facility] Left: Ear [employer] 11/04/2024 [id number] / / [id number] documented as of this encounter Advance Directives * Full Code (Latest Code Status on File) Date Activated Date Inactivated Comments 09/26/2007 1:43 PM 09/27/2007 5:30 PM * Full Code Date Activated Date Inactivated Comments 08/09/2007 1:38 PM 08/12/2007 5:16 PM Care Teams Animal Science Instructor Relationship Specialty Start Date End Date Sanjiv Hart III, MD [address] [place] [address] PCP - General Family Medicine 09/09/18 documented as of this encounter
--- OUTSIDE RECORDS SUMMARY | 2024-01-30 20:25 | External Medical Summary | Summary of Care ---
Author Name Unknown Organization [facility] Address [address] [place] [address] Phone [phone] Care Team Providers Care Photocomposing Keyboard Operator Name Role Phone Tanner CANTU MD, Sanjiv Moser Primary Care Provider [phone] Reason for Visit * Reason Comments Chronic Kidney Disease (CKD) Encounter Details Date Type Department Care Team (Late st Contact Info) Description 01/19/2024 10:00 AM EDT Office Visit [facility] [address] [place] [address] Jayden Vasques MD [address] [facility] [place] [address] Orthostatic hypotension*; HTN, goal below 150/90 Allergies Active Allergy Reactions Criticality Noted Date Comments Sulfamethoxazole-Trimethoprim Hives Medium 2016 Levofloxacin Rash Low 03/03/2017 Lisinopril 03/12/2021 Raises bp Nitrates, Organic 09/07/2000 Unconsciousness Sertraline Low 02/09/2019 Other reaction(s): NOSE BLEEDS Sulfamethoxazole Itching High 02/09/2019 Terazosin 12/08/2001 priaprism Trimethoprim Itching High 02/09/2019 documented as of this encounter (statuses as of 01/19/2024) Medications Medication Sig Dispensed Refills Start Date [...] 1 Each 5 06/09/2023 Active Dexcom G7 Product Safety Manager DeviceIndications:Hy poglycemia Use 1 Units as directed [...] Oral Tablet (Lipitor)Indications :Coronary artery disease involving [place] coronary artery of [place] heart without angina pectoris Take 1 Tablet by mouth in the morning. 90 Tablet 3 10/18/2023 Active Levothyroxine Sodium 88 MCG Oral Tablet (Levoxyl) Administer 1 Tablet into G tube in the morning. (at least 30 min prior to breakfast or other meds). 90 Tablet 3 10/18/2023 Active Diclofenac Sodium 1 % External Gel (Voltaren) Apply topically to affected area 3 times a day. 100 g 2 11/17/2023 Active Citalopram Hydrobromide 20 MG Oral Tablet (CeleXA)Indications: Panic attacks Take 1 Tablet by mouth in the morning. 90 Tablet 1 01/17/2024 Active cloNIDine HCl 0.1 MG Oral Tablet (Catapres)Indication s:HTN, goal below 150/90 Take 1 Tablet by mouth in the morning and 1 Tablet at noon and 1 Tablet before bedtime. Take when BP > 180. 90 Tablet 11 01/19/2024 Active documented as of this encounter (statuses as of 01/19/2024) Active Problems Problem Noted Date Diagnosed Date Coronary artery disease invo lving [place] coronary artery of [place] heart without angina pectoris 10/25/2023 MRI contraindicated [...] as of this encounter (statuses as of 01/19/2024) Resolved Problems Problem Noted Date Diagnosed Date [...] 10/23/2008 02/16/2013 ACTIVE CASE MANAGEMENT-Yanet Landa Rn- [phone] 09/28/2007 02/16/2008 Malignant neoplasm soft tissue head [...] as of this encounter (statuses as of 01/19/2024) Immunizations Name Administration Dates Next Due COVID-19 mRNA, LNP-s, No Pre serve, 2-Dose Series (imo.im) 02/18/2022,10/11/2020,09/13/2020 Pneumococcal Conjugate Vacc, 13 Valent (Prevnar) [...] Sign Reading Time Taken Comments Blood Pressure 122/67 01/19/2024 9:28 AM EDT Pulse 57 01/19/2024 9:28 AM EDT Temperature 36.4 C (97.5 F) 01/19/2024 9:28 AM ED T Respiratory Rate 16 01/19/2024 9:28 AM EDT Oxygen Saturation 98% 01/19/2024 9:28 AM EDT Inhaled Oxygen Concentration - - Weight 84.8 kg (187 lb) 01/19/2024 9:28 AM EDT Height - - Body Mass Index 26.09 10/25/2023 9:55 AM EDT documented in this encounter Progress Notes * Jayden Vasques MD - 01/19/2024 9:52 AM EDT C/c---Severe autonomic neuropathy with very labali hypertension/ severe orthostatic hypertension HPI: 78-year-old male who is here for evaluation of very labile blood pressure issue with both verylow and very high readings. Now it is mostly low with symptoms on standing He has had multiple visits to the emergency department because of low blood pressure. Patient has PEG tube for feeding because of extensive head and neck surgery and esophageal stenosis. He drinks boost. also had some extra salt. Since last visit ----ongoing issue with high blood pressure as well as low blood pressure. Patient was taken to the emergency department because of high blood pressure. After initial stabilization of blood pressure he was discharged. Patient's based on Facebook posting decided to take him off levothyroxine 6 days ago. She read in Facebook that levothyroxine causes blood pressure problem. Patient is not having low blood pressure as much as before. 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, moderate stage H40.2232 Moderate episode of recurrent major depressive disorder ([facility]) F33.1 ANDREA (generalized anxiety disorder) F41.1 Esophageal stenosis K22.2 COPD, group C, by GOLD 2017 classification ([facility]) J44.9 Acquired hypothyroidism E03.9 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 2 cans 4 x daily @ 7am,11 am,3 pm, 7 pm) 240 Can 11 ProAir HFA 108 (90 Base) MCG/ACT Inhalation Aerosol Solution Inhale 2 Puffs by mouth 4 times a day.18 g 3 Acetaminophen 500 MG Oral Capsule Administer into G tube 1,000 mg every 6 hours as needed for Pain,Moderate. Glucose 40 % Oral Gel (Glutose 15) As Directed Aspirin EC 81 MG Oral Tablet Delayed Release Take 1 Tab by mouth daily. 90 Tab 3 Atorvastatin Calcium 40 MG Oral Tablet (Lipitor) Take 1 Tab by mouth daily. 100 Tab 3 Citalopram Hydrobromide 20 MG Oral Tablet (CeleXA) Take 1 tablet by mouth once daily 90 Tab 3 Ipratropium-Albuterol 0.5-2.5 (3) MG/3ML Inhalation Solution (Duoneb) 3 ML 4 TIMES DAILY as needed for cough/ wheeze, Dx: COPD exacerbation J44.1 360 mL 1 Fluticasone Furoate-Vilanterol 100-25 MCG/INH Inhalation Aerosol Powder Breath Activated (BREO ellipta) Inhale 1 Puff by mouth daily. 28 Blister Dosing Unit 0 Glucose Blood In Vitro Strip USE DIRECTED FOUR TIMES A DAY NEEDED FOR HYPERGLYCEMIA (HIGH SUGAR). 400 Strip 3 Mupirocin 2 % External Ointment (Bactroban) Apply a thin layer under left eye twice daily x 2 weeks22 g 0 Midodrine HCl 5 MG Oral Tablet (Proamatine) Take by mouth 2 Tablets as needed in the morning AND 2 Tablets as needed at noon AND 2 Tablets as needed in the evening for Hypotension (For Blood pressureless then 80 mm HG systolic). 60 Tablet 5 Brimonidine Tartrate 0.2 % Ophthalmic Solution (Alphagan) Instill into both eyes 1 Drop in the morning AND 1 Drop before bedtime. 30 mL 3 Latanoprost 0.005 % Ophthalmic Solution (Xalatan) Instill into both eyes 1 Drop before bedtime. 10 mL 3 Levothyroxine Sodium 88 MCG Oral Tablet Administer into G tube 1 Tablet in the morning. (at least 30 min prior to breakfast or other meds). 90 Tablet 1 predniSONE 10 MG Oral Tablet (Deltasone) Take 5 tabs for 2 days, 4 tabs for 2 days, 3 tabs for 2 days, 2 tabs for 2 days 1 tab for 2 days through PEG tube 30 Tablet 0 Cefdinir 300 MG Oral Capsule (Omnicef) 300 mg 2 times a day . Doxycycline Hyclate 100 MG Oral Capsule 100 mg . Fludrocortisone Acetate 0.1 MG Oral Tablet (Florinef) TAKE 1 TABLET ONCE DAILY (Patient not taking:Reported on 04/22/2022 ) 30 Tablet 5 Hydrocortisone 2.5 % External Ointment Apply to cheek twice daily for 1 week (Patient not taking: Reported on 04/22/2022 ) 15 g 0 Lidocaine 5 % External Patch (Lidoderm) Place topically on the skin 1 Patch daily . (Patient not taking: Reported on 04/22/2022 ) No current facility-administered medications for this visit. Past Medical History: Diagnosis Date Abnormal involuntary movement Asthma, severity to be determined Backache surgery with Dr Latif Chronic constipation Depressive disorder, not elsewhere classified Esophageal reflux HTN, goal below 130/80 01/17/2007 Hyperplasia of prostate without lower urinary tract symptoms (LUTS) INFORMATION cancer of tonsil Past Surgical History: Procedure Laterality Date ACEL DERMAL A-GRAFT,HEAD/GEN/H/F,100 SQ CM 09/26/2007 ACELLULAR DERMAL REPLACEMENT FACE SCALP ORBITS GENITALS HAND FOOT 100SQ performed by ASHLEE FLORES at OR [facility] COLONOSCOPY, DIAGNOSTIC (RECTUM) 11/27/2008 normal, repeat in 10 yrs COLONOSCOPY, DIAGNOSTIC (RECTUM) 11/14/2014 normal bx, poor prep, repeat 1 yr/inpt [facility] COLONOSCOPY, DIAGNOSTIC (RECTUM) 04/04/2019 adenomatous polyp, repeat 5 yrs/[facility] COLONOSCOPY, DIAGNOSTIC (RECTUM) 08/08/2021 adenomatous polyp, repeat 5 yrs / [facility] COLORECTAL CANCER SCREEN;W/FLE 02/20/1997 WNL to 50cm DENTAL SURGERY PROCEDURE NEC Dental Surgery Procedure EGD, FLEXIBLE, DIAGNOSTIC 04/08/2010 continue present meds EGD, FLEXIBLE, DIAGNOSTIC 05/29/2013 UPPER GI ENDOSCOPY DIAGNOSTIC performed by Antonio Trinidad MD at ENDOSCOPY [facility] EGD, FLEXIBLE, DIAGNOSTIC 11/15/2014 PEG replacement, eso stricture, bx shows lymphocyte infiltrate /[facility] EGD, FLEXIBLE, DIAGNOSTIC 05/20/2016 PEG replacement/[facility] EGD, FLEXIBLE, DIAGNOSTIC 01/06/2018 PEG replaced/[facility] EGD, FLEXIBLE, DIAGNOSTIC 02/09/2019 esophageal stenosis, PEG replaced / [facility] EGD, FLEXIBLE, DIAGNOSTIC N/A 09/04/2021 intact gastrostomy with patent G tube present, dilated/successful completion of video capsule enteroscope/ESOPHAGOGASTRODUODENOSCOPY (EGD), FLEXIBLE, TRANSORAL, DIAGNOSTIC performed by Gabe Saha MD at OR [facility] EGD, FLEXIBLE, DIAGNOSTIC 08/08/2021 normal / [facility] EGD, FLEXIBLE, DIAGNOSTIC 05/16/2021 UES stenosis / [facility] EGD, FLEXIBLE, INSERT WIRE, PASS DILATOR 04/12/09 DONE PATH PENDING , DILATION DONE EGD, FLEXIBLE, W/BIOPSY 04/12/09 DONE mild stomach irritation INJECT/TREAT LUMBAR SPINE LESION spur removal IR BIOPSY 10/02/2019 KNEE ARTHROSCOPY, DIAGNOSTIC Knee Scope,Diagnostic OTHER 09/26/2007 right tonsil carcinoma with neck mets REMOVAL OF NECK LYMPH NODES 09/26/2007 CERVICAL LYMPHADENECTOMY MODIFIED RADICAL NECK DISSECTION performed by ASHLEE FLORES at OR [facility] STRESS TREADMILL 12/2001 wnl Review of patient's allergies indicates: Allergen Reactions Sulfamethoxazole Itching Trimethoprim Itching Bactrim [Sulfamethoxazole-Trimethoprim] Hives Lisinopril Raises bp Nitrates, Organic Unconsciousness Terazosin priaprism Levaquin [Levofloxacin] Rash Sertraline Other reaction(s): NOSE BLEEDS Family History Problem Relation Age of Onset Cancer Mother eye age 82 Lung Disorder Father COPD age 73 Diabetes Brother Heart Disorder Brother Diabetes Sister Other (Parkinson's Disease [Other]) None Other (Tremors [Other]) None Family Status Relation Status Mo Fa Sis Alive Sis Alive Sis Alive Sis Alive Sis Alive Sis Alive Sis Alive Sis Bro Alive Bro Alive Bro Alive Bro Alive Bro Bro (Not Specified) Bro (Not Specified) Sis (Not Specified) NONE (Not Specified) NONE (Not Specified) Social History Socioeconomic History Marital status: Spouse name: Letty Number of children: 1 Years of education: 12 Highest education level: Not on file Occupational History Occupation: [employer] Tobacco Use Smoking status: Former Smoker Packs/day: 0.50 Years: 5.00 Pack years: 2.50 Types: Cigarettes Quit date: 06/18/1979 Years since quittin.8 Smokeless tobacco: Never Used Vaping Use Vaping Use: Never used Substance and Sexual Activity Alcohol use: Yes Comment: Two to three a day. Drug use: No Sexual activity: Yes Partners: Female Other Topics Concern Service No Blood Transfusions No Caffeine Concern No Occupational Exposure No Hobby Hazards No Sleep Concern Yes Comment: some problems with sleep Stress Concern No Weight Concern Yes Special Diet No Back Care No Exercise Yes Bike Helmet Not Asked Seat Belt Yes Self-Exams No Social History Narrative for 46 years. Has 1 adopted son that lives in area. Disability due to cancer, COPD/asthma. Social Determinants of Health Financial Resource Strain: Not on file Food Insecurity: Not on file Transportation Needs: Not on file Physical Activity: Not on file Stress: Not on file Social Connections: Not on file Intimate Partner Violence: Not on file Housing Stability: Not on file Review of Systems: Twelve systems reviewed and negative OBJECTIVE: Physical Exam: BP 122/67 (BP Site: Right Arm, BP Position: Sitting, BP Cuff Size: Regular) | Pulse 57 | Temp 36.4 C (97.5 F) | Resp 16 | Wt 84.8 kg (187 lb) | SpO2 98% | BMI 26.09 kg/m | BSA 2.06 m Standing was 110/60 sitting was 163/95 General: alert, healthy and no distress Head: Normocephalic, No masses, lesions, tenderness or abnormalities Neck: supple, no JVD Heart: regular rate & rhythm, no murmurs and no gallops Lungs: normal respiratory rate and rhythm, lungs clear to auscultation Abdomen: abdomen soft and non-tender Back: no costovertebral angle tenderness Extremities: no edema Skin: skin color, texture, turgor are normal, no rashes or significant lesions NEPH-FLOW Latest Ref Rng & Units 03/15/2021 04/10/2021 08/04/2021 Bun 6 - 20 mg/dL 21 (H) 21 (H) 18 Cr 0.6 - 1.2 mg/dL 1.0 0.9 1.0 eGFR >=60 mL/min 77.1 84.8 77 eGFR >60 K 3.5 - 5.1 mmol/L 4.7 4.3 4.0 Hb 14.0 - 16.8 g/dL 12.2 (L) NEPH-FLOW Latest Ref Rng & Units 09/10/2021 12/29/2021 03/06/2022 Bun 6 - 20 mg/dL 16 18 14 Cr 0.6 - 1.2 mg/dL 1.0 1.0 1.0 eGFR >=60 mL/min 79 84 78 eGFR >60 K 3.5 - 5.1 mmol/L 4.5 4.0 4.2 Hb 14.0 - 16.8 g/dL 13.7 (L) 13.6 (L) Assessment: Orthostatic hypotension (Primary) Complicated blood pressure situation with both low standing blood pressure and high supine/sitting blood pressure. However I did explain to the patient and his that we can only tackle 1 at a time and I would focus on minimizing the low blood pressure 1st as that has and more immediate risk of fall fracture and major injury and even . There is also significant evidence that in orthostatic hypotension a tight compression stocking helps significantly. Advised to use it. However patient adherence to this is very low because of inconvenience. But it is 1 of the most effective method for orthostatic hypotension. Patient instruction given as below: Standing BP only for guide. He can easily have a situation with very high supine blood pressure butlow standing blood pressure. Use tight stockings ankle to thigh to raise BP. If BP low lay him down and raise the leg. Strictly advice to restart the levothyroxine. She wants exact guidelines for high blood pressure aswell as low blood pressure. Difficult situation to manage. But for now the advice is if the blood pressure is low less than 90 systolic give midodrine up to 3times a day. If the blood pressure is more than 180 give clonidine. There is not much utility in sending him to emergency department for high blood pressure given his severe autonomic dysfunction and labile blood pressure issues. Reviewed emergency department visit note. Discussed and explained with patient and his in great details about not getting medical information from Facebook HTN, goal below 150/90 - cloNIDine HCl 0.1 MG Oral Tablet (Catapres); Take 1 Tablet by mouth in the morning and 1 Tablet at noon and 1 Tablet before bedtime. Take when BP > 180. Follow Up: Return in about 4 months (around 05/21/2024). I spent a total of 40-54 minutes (exact time 45 mins) on the date of service in preparation, delivery, and documentation of the care provided to Rodney Canseco excluding any time spent in the performance of separately billed services. Jayden Vasques MD documented in this encounter Nursing Notes * La Bueno RN - 01/19/2024 9:31 AM EDT Follow up visit today. Blood pressures continue to be unstable at home. Went to ER 2 weeks ago withsevere hypertension. NO treatment given and reports she has done some research on thyroid pillhe has been on. She notes that he has not had it for the past week and his blood pressures have normalized. Hasn't been high and has not needed Midodrine. documented in this encounter Plan of Treatment Upcoming Encounters Date Type Department Care Team (Late st Contact Info) Description 02/25/2024 2:00 PM EDT Office Visit [facility] [address] [address] Marta Moran MD [address] [place] [id number] Flash [place]es Nurse [address] [place] [id number] Photographer Sophia [address] [address] 05/25/2024 10:20 AM EST Office Visit Nephrology [address] [place] [address] Jayden Vasques MD [address] [place], [place] [address] 09/08/2024 1:40 PM EST [facility] [address] [place] [address] Jayden Vas[facility] MD [address] [facility] [place] [place] [address] Scheduled Procedures Name Priority Associated Diagnoses Date/Ti [...] this encounter Medical Devices Implanted Type Area Steel Construction Worker Device Identifier Shelf Expiration Date Model / Serial / Lot [id number] - [id number] Implanted:Qty : 1 on 09/26/2007 at OR [facility] Tissue - Human Right: Neck [employer] 10/17/2008 [id number] / / [id number] Description:alloderm 3x7cm Elect Nucleus Slim Str [id number] - [id number] Implanted:Qty : 1 on 12/21/2022 by Ollie Borja MD at OR [facility] Left: Ear [employer] 11/04/2024 [id number] / / [id number] documented as of this encounter Visit Diagnoses Diagnosis Orthostatic hypotension- Primary HTN, goal below 150/90 documented in this encounter Advance Directives * Full Code (Latest Code Status on File) Date Activated Date Inactivated Comments 09/26/2007 1:43 PM 09/27/2007 5:30 PM * Full Code Date Activated Date Inactivated Comments 08/09/2007 1:38 PM 08/12/2007 5:16 PM Care Teams Photocomposing Keyboard Operator Relationship Specialty Start Date End Date Sanjiv Hart III, MD [address] [facility] [address] PCP - General Family Medicine 09/09/18 documented as of this encounter"
--- OUTSIDE RECORDS SUMMARY | 2024-01-30 20:25 | External Medical Summary | Summary of Care ---
Author Name Unknown Organization [facility] Address [address] [place] [address] Phone [phone] Care Team Providers Care Insurance Coder Name Role Phone Tanner CANTU MD, Sanjiv Moser Primary Care Provider [phone] Reason for Visit * Reason Onset Date Comments Family Concerns 01/14/2024 Encounter Details Date Type Department Care Team (Late st Contact Info) Description 01/14/2024 Telephone Nephrology, Kely [place] [address] [facility] [place] [address] Jayden Vasques MD [address] [facility] [place] [address] Family Concerns Allergies Active Allergy Reactions Criticality Noted Date Comments Sulfamethoxazole-Trimethoprim Hives Medium 2016 Levofloxacin Rash Low 03/03/2017 Lisinopril 03/12/2021 Raises bp Nitrates, Organic 09/07/2000 Unconsciousness Sertraline Low 02/09/2019 Other reaction(s): NOSE BLEEDS Sulfamethoxazole Itching High 02/09/2019 Terazosin 12/08/2001 priaprism Trimethoprim Itching High 02/09/2019 documented as of this encounter (statuses as of 01/14/2024) Medications Medication Sig Dispensed Refills Start Date [...] before bedtime. 120 mL 5 06/30/2022 Active Additional Information Patient not taking.Reported on 10/25/2023 BoardVitals Ultra In Vitro Strip (Glucose Blood)Indications:Hy poglycemia USE DIRECTED FOUR TIMES A DAY NEEDED FOR HYPERGLYCEMIA (HIGH SUGAR). DX:E11.9 100 Strip 5 10/28/2022 Active Dexcom G7 SensorIndications:Hy poglycemia Use 1 Units as directed daily. 1 Each 5 06/09/2023 Active Dexcom G7 Nailhead Setter DeviceIndications:Hy poglycemia Use 1 Units as directed [...] or Wheezing. 360 mL 3 07/27/2023 Active Citalopram Hydrobromide 20 MG Oral Tablet (CeleXA)Indications: Panic attacks Take 1 Tablet by mouth in the morning. 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 angina pectoris 10/25/2023 MRI contraindicated [...] as of this encounter (statuses as of 01/14/2024) Resolved Problems Problem Noted Date Diagnosed Date [...] be determined 10/23/2008 02/16/2013 ACTIVE CASE MANAGEMENT-Yanet Cordell Rn- [phone] 09/28/2007 02/16/2008 Malignant neoplasm soft tissue head [...] as of this encounter (statuses as of 01/14/2024) Immunizations Name Administration Dates Next Due COVID-19 mRNA, LNP-s, No Pre serve, 2-Dose Series (Pfizer) 02/18/2022,10/11/2020,09/13/2020 PPD 08/09/2002 Pneumococcal Conjugate Vacc, 13 [...] IM 05/02/2019,05/19/2017 TD - Tetanus/Diptheria (ADULT) 07/26/2003,1992 TDAP, Age 7 and older, IM (Adacel) [...] encounter Miscellaneous Notes * Telephone Encounter - Debbie Simpson LPN - 01/14/2024 1:18 PM EDT Noted * Telephone Encounter - Marietta Boston OSA - 01/14/2024 12:54 PM EDT Patient has been notified of the message. Patient has been scheduled. * Telephone Encounter - Marietta Boston OSA - 01/14/2024 11:00 AM EDT Pt was speaking to a nurse and was disconnected * Telephone Encounter - Debbie Simpson LPN - 01/14/2024 10:54 AM EDT Attempted to contact pt spoke with on her cell with limited info obtained as cell phone keep cutting in and out did call back with better connection Pt's BP has been extremely high last 4 nights 239/129 Pt has been seen in [facility] ED and sent home This AM 115/64 Pt is having periods of confusion will take pt to ED now She is advised will try to have him seen earlier with Dr Vasques for f/u on fluctuating BP verbalizes understanding [employer] Hcm Developer can this pt been seen over next couple weeks * Telephone Encounter - La Mccallum OSA - 01/14/2024 10:35 AM EDT Pt is having blood pressure the is fluctuating wildly, with very high and then low numbers. Pt is having periods of confusion. is very concerned documented in this encounter Plan of Treatment Upcoming Encounters Date Type Department Care Team (Late st Contact Info) Description 01/19/2024 10:00 AM EDT Office Visit [facility] [address] [place] [address] Jayden Vasques MD [address] [place] [address] 02/25/2024 2:00 PM EDT Office Visit [address] [place] [address] Marta Moran MD [address] [place] [address] Flash Cortes Nurse [address] [place] [address] Jarred Corteser [address] [address] 05/25/2024 10:20 AM EST Office Visit Nephrology [address] [place] [address] Jayden Vasques MD 200 [place] [address] Scheduled Procedures Name Priority Associated Diagnoses Date/Ti me COLONOSCOPY FLEXIBLE PROXIMAL DIAGNOSTIC Recall History of colon polyps Health Maintenance Due Date Last Done Comments Alpha-1 Antitrypsin 1965 *ADVANCE DIRECTIVE NOT ON FILE 05/06/2019 DTaP,Tdap,and Td Vaccines (2 - Td or Tdap) 10/01/2021 10/02/2011, 07/26/2003, 07/19/1992 COVID-19 Vaccine ( season) 2023 02/18/2022, 10/11/2020, 09/13/2020 Depression Monitoring 02/03/2024 02/02/2023 TSH 07/30/2024 07/30/2023, 02/16, 03/15/2021, Additional history exists GFR 09/02/2024 09/02/2023, 06/19, 06/09/2023, Additional history exists O2 ASSESSMENT COMPLETED IN PAST YEAR FOR COPD 10/24/2024 10/25/2023 Colonoscopy 08/08/2026 08/08/2021, 03/19, 11/13/2014, Additional history exists Albumin/Creatinine Ratio 09/20/2026 09/21/2023, 01/17 Zoster Vaccines Discontinued 04/19/2012 Hepatitis C Screening Completed 08/02/2013 Pneumococcal Vaccine: 65+ Years Completed 02/24/2016, 10/26/2014, 04/19/2008 RETIRED - COLONOSCOPY-EVERY 5 YRS AGES 18-100 Discontinued 08/08/2021, 04/04/2019, 11/13/2014, Additional history exists Influenza Vaccine (FLU shot) Completed 04/06/2023, 05/01/2022, [...] this encounter Medical Devices Implanted Type Area Store Lead Device Identifier Shelf Expiration Date Model / Serial / Lot [id number] - [id number] Implanted:Qty : 1 on 09/26/2007 at OR [facility] [place] Tissue - Human Right: Neck LIFE CELL MARIANO 10/17/2008 [id number] / / [id number] Description:alloderm 3x7cm Elect Nucleus Slim Str [id number] - [id number] Implanted:Qty : 1 on 12/21/2022 by Ollie Borja MD at OR [facility] [place] Left: Ear [employer] 11/04/2024 [id number] / / [id number] documented as of this encounter Advance Directives * Full Code (Latest Code Status on File) Date Activated Date Inactivated Comments 09/26/2007 1:43 PM 09/27/2007 5:30 PM * Full Code Date Activated Date Inactivated Comments 08/09/2007 1:38 PM 08/12/2007 5:16 PM Care Teams Insurance Coder Relationship Specialty Start Date End Date Sanjiv Hart III, MD [address] [place] [address] PCP - General Family Medicine 09/09/18 documented as of this encounter
--- OUTSIDE RECORDS SUMMARY | 2024-01-30 20:25 | External Medical Summary | Summary of Care ---
Author Name Unknown Organization [facility] Address [address] [place] [address] Phone [phone] Care Team Providers Care Filter Changing Technician Name Role Phone Tanner CANTU MD, Sanjiv Moser Primary Care Provider [phone] Reason for Visit * Reason Onset Date Comments Appointment 01/26/2024 Encounter Details Date Type Department Care Team (Late st Contact Info) Description 01/26/2024 Telephone Care at Home [address] [place] [address] Services, Scheduling [address] [place] [address] Appointment Allergies Active Allergy Reactions Criticality Noted Date Comments Sulfamethoxazole-Trimethoprim Hives Medium 2016 Levofloxacin Rash Low 03/03/2017 Lisinopril 03/12/2021 Raises bp Nitrates, Organic 09/07/2000 Unconsciousness Sertraline Low 02/09/2019 Other reaction(s): NOSE BLEEDS Sulfamethoxazole Itching High 02/09/2019 Terazosin 12/08/2001 priaprism Trimethoprim Itching High 02/09/2019 documented as of this encounter (statuses as of 01/26/2024) Medications Medication Sig Dispensed Refills Start Date [...] 1 Each 5 06/09/2023 Active Dexcom G7 Ornamental Iron Worker Apprentice DeviceIndications:Hy poglycemia Use 1 Units as directed daily. 1 Each 2 06/09/2023 Active Boost Plus Oral LiquidIndications:Dy sphagia,At high risk for aspiration Take 2 cans 4 times daily @ 7am,11 am,3 pm, 7 pm 720 mL 1 07/28/2023 Active Albuterol Sulfate 1.25 MG/3ML Inhalation Nebulization SolutionIndications: Wheezing,Bronchitis, complicated,COPD exacerbation (HCC),COPD, group C, by GOLD 2017 classification ([facility]) Inhale 1 vial via nebulizer every 4 [...] Oral Tablet (Lipitor)Indications :Coronary artery disease involving nome coronary artery of nome heart without angina pectoris Take 1 Tablet [...] as of this encounter (statuses as of 01/26/2024) Active Problems Problem Noted Date Diagnosed Date Coronary artery disease invo lving nome coronary artery of nome heart without angina pectoris 10/25/2023 MRI contraindicated [...] as of this encounter (statuses as of 01/26/2024) Resolved Problems Problem Noted Date Diagnosed Date [...] 10/23/2008 02/16/2013 ACTIVE CASE MANAGEMENT-Yanet Landa Rn- [phone] 09/28/2007 02/16/2008 Malignant neoplasm soft tissue head [...] as of this encounter (statuses as of 01/26/2024) Immunizations Name Administration Dates Next Due COVID-19 mRNA, LNP-s, No Pre serve, 2-Dose Series (Connecture) 02/18/2022,10/11/2020,09/13/2020 Pneumococcal Conjugate Vacc, 13 Valent (Prevnar) [...] encounter Miscellaneous Notes * Telephone Encounter - Marietta Zamudio OSA - 01/26/2024 1:38 PM EDT Care At Home Outreach Call attempt: 2nd Call Call result: Call Unsuccessful - Declined enrollment Does not wish to reschedule ELIAZAR Johnson documented in this encounter Plan of Treatment Upcoming Encounters Date Type Department Care Team (Late st Contact Info) Description 02/25/2024 2:00 PM EDT Office Visit [facility] [address] [address] Marta Moran MD [address] [place] [address] Flash Cortes Nurse [address] [place] [address] Jarred Corteser [address] [address] 05/25/2024 10:20 AM EST Office Visit Nephrology [address] [place] [address] Jayden Vasques MD 200 [place] [address] 09/08/2024 1:40 PM EST [facility] [address] [place] [address] Jayden Vasques MD [address] [place] [address] Scheduled Procedures Name Priority Associated Diagnoses Date/Ti me COLONOSCOPY FLEXIBLE PROXIMAL DIAGNOSTIC Recall History of colon polyps Health Maintenance Due Date Last Done Comments Alpha-1 Antitrypsin 1965 *ADVANCE DIRECTIVE NOT ON FILE 05/06/2019 DTaP,Tdap,and Td Vaccines (2 - Td or Tdap) 10/01/2021 10/02/2011, 07/26/2003, 07/19/1992 COVID-19 Vaccine (4 - 2022-24 season) 2023 02/18/2022, 10/11/2020, 09/13/2020 Depression Monitoring [...] this encounter Medical Devices Implanted Type Area Stopper Setter Device Identifier Shelf Expiration Date Model / Serial / Lot [id number] - [id number] Implanted:Qty : 1 on 09/26/2007 at [place] [facility] [place] Tissue - Human Right: Neck LIFE [employer]LL MARIANO 10/17/2008 [id number] / / [id number] Description:alloderm 3x7cm Elect Nucleus Slim Str [id number] - [id number] Implanted:Qty : 1 on 12/21/2022 by Ollie Borja MD at [place] [facility] [place] Left: Ear [employer] 11/04/2024 [id number] / / [id number] documented as of this encounter Advance Directives * Full Code (Latest Code Status on File) Date Activated Date Inactivated Comments 09/26/2007 1:43 PM 09/27/2007 5:30 PM * Full Code Date Activated Date Inactivated Comments 08/09/2007 1:38 PM 08/12/2007 5:16 PM Care Teams Filter Changing Technician Relationship Specialty Start Date End Date Sanjiv Hart III, MD 200 [place] [address] PCP - General Family Medicine 09/09/18 documented as of this encounter
--- OUTSIDE RECORDS SUMMARY | 2024-01-30 20:25 | External Medical Summary | Summary of Care ---
Author Name Unknown Organization [facility] Address [address] [place] [address] Phone [phone] Care Team Providers Care Tack Coverer Name Role Phone Tanner CANTU MD, Sasha Moser Primary Care Provider [phone] Reason for Visit * Reason Comments Medication Refill Encounter Details Date Type Department Care Team (Late st Contact Info) Description 01/16/2024 Refill Family Practice [facility] [address] [place] [address] Sasha Blanco III, MD [facility] [address] Panic attacks Allergies Active Allergy Reactions Criticality Noted Date Comments Sulfamethoxazole-Trimethoprim Hives Medium 2016 Levofloxacin Rash Low 03/03/2017 Lisinopril 03/12/2021 Raises bp Nitrates, Organic 09/07/2000 Unconsciousness Sertraline Low 02/09/2019 Other reaction(s): NOSE BLEEDS Sulfamethoxazole Itching High 02/09/2019 Terazosin 12/08/2001 priaprism Trimethoprim Itching High 02/09/2019 documented as of this encounter (statuses as of 01/17/2024) Medications Medication Sig Dispensed Refills Start Date End Date Status Acetaminophen 500 MG Oral Capsule Administer 2 Capsules into G tube every 6 hours as needed for Pain, Moderate. 1 Active Glucose 40 % Oral Gel (Glutose 15) 1 Active Aspirin EC 81 MG Oral Tablet Delayed Release Take 1 Tab by mouth daily. 90 Tab 3 1 Active Additional Information Patient not taking.Reported on 09/23/2023 Formoterol Fumarate 20 MCG/2ML Inhalation Nebulization SolutionIndications :Unspecified chronic bronchitis (HCC) Inhale 2 mL by mouth in the morning and 2 mL before bedtime. 120 mL 5 2 Active Additional Information Patient not taking.Reported on 10/25/2023 OnePaintZen Ultra In Vitro Strip (Glucose Blood)Indications:H ypoglycemia USE DIRECTED FOUR TIMES A DAY NEEDED FOR HYPERGLYCEMIA (HIGH SUGAR). DX:E11.9 100 Strip 5 3 Active Dexcom G7 SensorIndications:H ypoglycemia Use 1 Units as directed daily. 1 Each 5 3 Active Dexcom G7 Wheelage Clerk DeviceIndications:H ypoglycemia Use 1 Units as directed daily. 1 Each 2 3 Active Boost Plus Oral LiquidIndications:D ysphagia,At high risk for aspiration Take 2 cans 4 times daily @ 7am,11 am,3 pm, 7 pm 720 mL 1 4 Active Albuterol Sulfate 1.25 MG/3ML Inhalation Nebulization SolutionIndications :Wheezing,Bronchiti s, complicated,COPD exacerbation (HCC),COPD, group C, by GOLD 2017 classification ([facility]) Inhale 1 vial via nebulizer every 4 hours as needed for Shortness of Breath or Wheezing. 360 mL 3 4 Active Midodrine HCl 5 MG Oral Tablet (Proamatine)Indicat ions:Orthostatic hypotension TAKE 2 TABLETS BY MOUTH THREE TIMES DAILY NEEDED FOR HYPOTENSION (FOR BLOOD PRESSURE LESS THAN 80MM HG SYSTOLIC) 540 Tablet 4 Active Latanoprost 0.005 % Ophthalmic Solution (Xalatan) Instill 1 Drop into both eyes every evening. 10 mL 3 4 Active Atorvastatin Calcium 40 MG Oral Tablet (Lipitor)Indication s:Coronary artery disease involving little river coronary artery of little river heart without angina pectoris Take 1 Tablet by mouth in the morning. 90 Tablet 3 4 Active Levothyroxine Sodium 88 MCG Oral Tablet (Levoxyl) Administer 1 Tablet into G tube in the morning. (at least 30 min prior to breakfast or other meds). 90 Tablet 3 4 Active Diclofenac Sodium 1 % External Gel (Voltaren) Apply topically to affected area 3 times a day. 100 g 2 4 Active Citalopram Hydrobromide 20 MG Oral Tablet (CeleXA)Indications :Panic attacks Take 1 Tablet by mouth in the morning. 90 Tablet 1 4 Active Citalopram Hydrobromide 20 MG Oral Tablet (CeleXA)Indications :Panic attacks Take 1 Tablet by mouth in the morning. 90 Tablet 1 4 01/16/20 24 Discontinu ed(Refill) documented as of this encounter (statuses as of 01/17/2024) Active Problems Problem Noted Date Diagnosed Date Coronary artery disease invo lving little river coronary artery of little river heart without angina pectoris 10/25/2023 MRI contraindicated [...] as of this encounter (statuses as of 01/17/2024) Resolved Problems Problem Noted Date Diagnosed Date [...] 10/23/2008 02/16/2013 ACTIVE CASE MANAGEMENT-Yanet Landa Rn- [phone] 09/28/2007 02/16/2008 Malignant neoplasm soft tissue head [...] as of this encounter (statuses as of 01/17/2024) Immunizations Name Administration Dates Next Due COVID-19 mRNA, LNP-s, No Pre serve, 2-Dose Series (interclick) 02/18/2022,10/11/2020,09/13/2020 Pneumococcal Conjugate Vacc, 13 Valent (Prevnar) [...] encounter Miscellaneous Notes * Telephone Encounter - Bill Sterling, [facility] - 01/17/2024 10:44 AM EDT Signed Prescriptions: Disp Refills Citalopram Hydrobromide 20 MG Oral Tablet *90 Tab*1 Sig: Take 1 Tablet by mouth in the morning.Authorizing Provider: SASHA BLANCO III User: BILL STERLING documented in this encounter Plan of Treatment Upcoming Encounters Date Type Department Care Team (Late st Contact Info) Description 01/19/2024 10:00 AM EDT Office Visit [facility] [address] [place], [place] [address] Jayden Vasques MD [address] [place], [place] [address] 02/25/2024 2:00 PM EDT Office Visit [facility] [address] [address] Marta Moran MD [address] [place] [address] Flash Cortes [address] [place] [address] Photographer Sophia [address] [address] 05/25/2024 10:20 AM EST Office Visit [address]ph[address] [place] [address] Jayden Vasques MD [address] [place], [place] [address] Scheduled Procedures Name Priority Associated Diagnoses Date/Ti [...] Discontinued 08/08/2021, 04/04/2019, 11/13/2014, Additional history exists GARDASIL-HPV IMMUNIZATION SERIES Aged Out No longer eligible based on patient's age to complete this topic Hepatitis B Aged Out No longer eligi ble based on patient's age to complete this topic MENINGOCOCCAL (MENACTRA/MENVEO) Aged Out No longer eligible based on patient's age to complete this topic documented as of this encounter Medical Devices Implanted Type Area Pyrometallurgical Engineer Device Identifier Shelf Expiration Date Model / Serial / Lot [id number] - [id number] Implanted:Qty : 1 on 09/26/2007 at OR [facility] [place] [place] Tissue - Human Right: Neck [employer] 10/17/2008 [id number] / / [id number] Description:alloderm 3x7cm Elect Nucleus Slim Str [id number] - [id number] Implanted:Qty : 1 on 12/21/2022 by Ollie Borja MD at [place] [facility] [place] [place] Left: Ear [employer] 11/04/2024 [id number] / / [id number] documented as of this encounter Visit Diagnoses Diagnosis Panic attacks Panic disorder without agoraphobia documented in this encounter Advance Directives * Full Code (Latest Code Status on File) Date Activated Date Inactivated Comments 09/26/2007 1:43 PM 09/27/2007 5:30 PM * Full Code Date Activated Date Inactivated Comments 08/09/2007 1:38 PM 08/12/2007 5:16 PM Care Teams Tack Coverer Relationship Specialty Start Date End Date Sasha Blanco III, MD [address] [place] [address] PCP - General Family Medicine 09/09/18 documented as of this encounter
--- OUTSIDE RECORDS SUMMARY | 2024-01-30 20:26 | External Medical Summary | Summary of Care ---
Author Name Unknown Organization [facility] Address [address] [place] [address] Phone [phone] Care Team Providers Care Liquefied Natural Gas Operator Name Role Phone Tanner CANTU MD, Sanjiv Moser Primary Care Provider [phone] Reason for Visit * Reason Onset Date Comments Family Concerns 01/14/2024 Encounter Details Date Type Department Care Team (Late st Contact Info) Description 01/14/2024 Telephone Nephrology, [place]ely [place] 200 [facility] [place] [address] Jayden Vasques MD 200 [place] [place] [address] Family Concerns Allergies Active Allergy Reactions Criticality [...] Additional Information Patient not taking.Reported on 10/25/2023 [employer] Ultra In Vitro Strip (Glucose Blood)Indications:Hy poglycemia USE DIRECTED FOUR TIMES A DAY NEEDED FOR HYPERGLYCEMIA (HIGH SUGAR). DX:E11.9 100 Strip 5 10/28/2022 Active Dexcom G7 SensorIndications:Hy poglycemia Use 1 Units as directed daily. 1 Each 5 06/09/2023 Active Dexcom G7 Tearoom Host/Hostess DeviceIndications:Hy poglycemia Use 1 Units as directed [...] Oral Tablet (Lipitor)Indications :Coronary artery disease involving [place] coronary artery of pen[place]scot heart without angina pectoris Take 1 Tablet [...] Diagnosed Date Coronary artery disease invo lving penobscot coronary artery of penobscot heart without angina pectoris 10/25/2023 MRI contraindicated [...] 10/23/2008 02/16/2013 ACTIVE CASE MANAGEMENT-Yanet Cordell Rn- [phone] 09/28/2007 02/16/2008 Malignant neoplasm soft tissue head [...] Miscellaneous Notes * Telephone Encounter - Marietta Boston OSA [...] nights 239/129 Pt has been seen in [facility] ED and sent home This AM 115/64 Pt is having periods of confusion will take pt to ED now She is advised will try to have him seen earlier with Dr Vasques for f/u on fluctuating BP verbalizes understanding Cook Jelly can this pt been seen over next [...] Description 01/19/2024 10:00 AM EDT Office Visit Nephrology, Kely [place] [address] [place] [address] Jayden Vasques MD 200 [facility] [place] [address] 02/25/2024 2:00 PM EDT Office Visit [facility] [place] [address] [place] [address] [place] [id number] Marta Moran MD [address] [place] [id number] Flash Cortes Nurse [address] [place] [address] [phone] Photographer Sander Cortesbine [address] [place] [address] [facility] [place] [address] 05/25/2024 10:20 AM EST Office Visit Nephrology [address] [place] [address] Jayden Vasques MD [address] [place] [address] Scheduled Procedures Name Priority Associated Diagnoses Date/Ti [...] encounter Medical Devices Implanted Type Area Senior Group Manager Device Identifier Shelf Expiration Date Model / Serial / Lot [id number] - [id number] Implanted:Qty : 1 on 09/26/2007 at [place] [facility] [place] Tissue - Human Right: Neck [employer]LL MARIANO 10/17/2008 [id number] / / [id number] Description:alloderm 3x7cm Elect Nucleus Slim Str [id number] - [id number] Implanted:Qty : 1 on 12/21/2022 by Ollie Borja MD at OR [facility] [place] Left: Ear [employer] 11/04/2024 [id number] / / [id number] documented as of this encounter Advance Directives * Full Code (Latest Code Status on File) Date Activated Date Inactivated Comments 09/26/2007 1:43 PM 09/27/2007 5:30 PM * Full Code Date Activated Date Inactivated Comments 08/09/2007 1:38 PM 08/12/2007 5:16 PM Care Teams Liquefied Natural Gas Operator Relationship Specialty Start Date End Date Sanjiv Hart III, MD [address] [place] [address] PCP - General Family Medicine 09/09/18 documented as of this encounter
--- OUTSIDE RECORDS SUMMARY | 2024-01-30 20:26 | External Medical Summary | Summary of Care ---
Author Name Unknown Organization [facility] Address [address] [place] [address] Phone [phone] Care Team Providers Care Traffic And Transport Planner Name Role Phone Tanner CANTU MD, Sanjiv Moser Primary Care Provider [phone] Reason for Visit * Reason Onset Date Comments Family Concerns 01/14/2024 Encounter Details Date Type Department Care Team (Late st Contact Info) Description 01/14/2024 Telephone Nephrology, [place] [address] [facility] [place] [address] Jayden Vasques MD [address] [facility] [place] [address] Family Concerns Allergies Active Allergy Reactions Criticality [...] Additional Information Patient not taking.Reported on 10/25/2023 Elevate Ultra In Vitro Strip (Glucose Blood)Indications:Hy poglycemia USE DIRECTED FOUR TIMES A DAY NEEDED FOR HYPERGLYCEMIA (HIGH SUGAR). DX:E11.9 100 Strip 5 10/28/2022 Active Dexcom G7 SensorIndications:Hy poglycemia Use 1 Units as directed daily. 1 Each 5 06/09/2023 Active Dexcom G7 Injection Molder DeviceIndications:Hy poglycemia Use 1 Units as directed [...] Oral Tablet (Lipitor)Indications :Coronary artery disease involving [place] coronary artery of [place] heart without angina pectoris Take 1 Tablet [...] Diagnosed Date Coronary artery disease invo lving [place] coronary artery of [place] heart without angina pectoris 10/25/2023 MRI contraindicated [...] 10/23/2008 02/16/2013 ACTIVE CASE MANAGEMENT-Yanet Cordell Rn- [phone] 09/28/2007 02/16/2008 Malignant neoplasm soft tissue head [...] and was disconnected * Telephone Encounter - La Mccallum OSA - 01/14/2024 10:35 AM EDT Pt is having blood pressure the is fluctuating wildly, with very high and then low numbers. Pt is having periods of confusion. is very concerned documented in this encounter Plan of Treatment Upcoming Encounters Date Type Department Care Team ([facility] st Contact Info) Description 02/25/2024 2:00 PM EDT Office Visit [facility] Eye [address] [address] Marta Moran MD [address] [place] [address] Flash Cortes Nurse [address] [place] [address] [phone] Sophia Reproducer [address] [address] 05/25/2024 10:20 AM EST Office Visit Nephrology [address] [place] [address] Jayden Vasques MD [address] [place] [address] Scheduled Procedures Name Priority Associated Diagnoses Date/Ti [...] this encounter Medical Devices Implanted Type Area Vessel Captain Device Identifier Shelf Expiration Date Model / Serial / Lot [id number] - [id number] Implanted:Qty : 1 on 09/26/2007 at [place] [facility] [place] Tissue - Human Right: Neck [employer] 10/17/2008 [id number] / / [id number] Description:alloderm 3x7cm Elect Nucleus Slim Str [id number] - [id number] Implanted:Qty : 1 on 12/21/2022 by Ollie Borja MD at [place] [facility] [place] Left: Ear [employer] 11/04/2024 [id number] / / [id number] documented as of this encounter Advance Directives * Full Code (Latest Code Status on File) Date Activated Date Inactivated Comments 09/26/2007 1:43 PM 09/27/2007 5:30 PM * Full Code Date Activated Date Inactivated Comments 08/09/2007 1:38 PM 08/12/2007 5:16 PM Care Teams Traffic And Transport Planner Relationship Specialty Start Date End Date Sanjiv Hart III, MD [address] [place] [address] PCP - General Family Medicine 09/09/18 documented as of this encounter
--- OUTSIDE RECORDS SUMMARY | 2024-01-30 20:26 | External Medical Summary | Summary of Care ---
Author Name Unknown Organization [facility] Address [address] [place] [address] Phone [phone] Care Team Providers Care Ski Lift Operator Name Role Phone Tanner CANTU MD, Sanjiv Moser Primary Care Provider [phone] Reason for Visit * Reason Onset Date Comments Advice 10/06/2023 Test Results 10/06/2023 FYI 10/06/2023 Encounter Details Date Type Department Care Team (Late st Contact Info) Description 10/06/2023 Telephone Family Practice [facility] [place] [address] [place] [address] Sanjiv Hart III, MD [address] [facility] [address] Advice; Test Results; FYI Allergies Active Allergy Reactions Criticality Noted Date Comments Sulfamethoxazole-Trimethoprim Hives Medium 2016 Levofloxacin Rash Low 03/03/2017 Lisinopril 03/12/2021 Raises bp Nitrates, Organic 09/07/2000 Unconsciousness Sertraline Low 02/09/2019 Other reaction(s): NOSE BLEEDS Sulfamethoxazole Itching High 02/09/2019 Terazosin 12/08/2001 priaprism Trimethoprim Itching High 02/09/2019 documented as of this encounter (statuses as of 01/05/2024) Medications Medication Sig Dispensed Refills Start Date End Date Status Acetaminophen 500 MG Oral Capsule Administer 2 Capsules into G tube every 6 hours as needed for Pain, Moderate. 03/10/20 21 Active Glucose 40 % Oral Gel (Glutose 15) 01/20/20 Active Aspirin EC 81 MG Oral Tablet Delayed Release Take 1 Tab by mouth daily. 90 Tab 3 04/24/20 Active Additional Information Patient not taking.Reported on 09/23/2023 Formoterol Fumarate 20 MCG/2ML Inhalation Nebulization SolutionIndication s:Unspecified chronic bronchitis (HCC) Inhale 2 mL by mouth in the morning and 2 mL before bedtime. 120 mL 5 06/30/20 22 Active Additional Information Patient not taking.Reported on 10/25/2023 Nativoo In Vitro Strip (Glucose Blood)Indications: Hypoglycemia USE DIRECTED FOUR TIMES A DAY NEEDED FOR HYPERGLYCEMIA (HIGH SUGAR). DX:E11.9 100 Strip 5 10/29/19 Active Dexcom G7 SensorIndications: Hypoglycemia Use 1 Units as directed daily. 1 Each 5 06/09/20 Active Dexcom G7 Radiology Director DeviceIndications: Hypoglycemia Use 1 Units as directed daily. 1 Each 2 06/09/20 23 Active Boost Plus Oral LiquidIndications: Dysphagia,At high risk for aspiration Take 2 cans 4 times daily @ 7am,11 am,3 pm, 7 pm 720 mL 1 07/28/19 24 Active Albuterol Sulfate 1.25 MG/3ML Inhalation Nebulization SolutionIndication s:Wheezing,Bronchi tis, complicated,COPD exacerbation (HCC),COPD, group C, by GOLD 2017 classification ([facility]) Inhale 1 vial via nebulizer every 4 hours as needed for Shortness of Breath or Wheezing. 360 mL 3 07/27/19 24 Active Citalopram Hydrobromide 20 MG Oral Tablet (CeleXA)Indication s:Panic attacks Take 1 Tablet by mouth in the morning. 90 Tablet 1 07/27/19 24 Active Midodrine HCl 5 MG Oral Tablet (Proamatine)Indica tions:Orthostatic hypotension TAKE 2 TABLETS BY MOUTH THREE TIMES DAILY NEEDED FOR HYPOTENSION (FOR BLOOD PRESSURE LESS THAN 80MM HG SYSTOLIC) 540 Tablet 07/30/19 24 Active Latanoprost 0.005 % Ophthalmic Solution (Xalatan) Instill 1 Drop into both eyes every evening. 10 mL 3 08/19/19 24 Active oxyCODONE HCl 5 MG Oral Tablet (Oxy IR) Take 1 Tablet by mouth every 4 hours as needed for moderate or severe pain 10 Tablet 12/22/19 23 024 Discontinued Atorvastatin Calcium 40 MG Oral Tablet (Lipitor)Indicatio ns:Coronary artery disease involving [place] coronary artery of [place] heart without angina pectoris Take 1 Tablet by mouth in the morning. 90 Tablet 07/27/19 24 024 Discontinued(Re fill) Levothyroxine Sodium 88 MCG Oral Tablet (Levoxyl) Administer 1 Tablet into G tube in the morning. (at least 30 min prior to breakfast or other meds). 90 Tablet 07/27/19 24 024 Discontinued(Re fill) Fludrocortisone Acetate 0.1 MG Oral Tablet (Florinef)Indicati ons:Orthostatic hypotension Take 1 Tablet by mouth in the morning. 90 Tablet 1 07/28/19 24 024 Discontinued documented as of this encounter (statuses as of 01/05/2024) Active Problems Problem Noted Date Diagnosed Date Coronary artery disease invo lving [place] coronary artery of [place] heart without angina pectoris 10/25/2023 MRI contraindicated [...] as of this encounter (statuses as of 01/05/2024) Resolved Problems Problem Noted Date Diagnosed Date [...] 10/23/2008 02/16/2013 ACTIVE CASE MANAGEMENT-Yanet Landa Rn- [phone] 09/28/2007 02/16/2008 Malignant neoplasm soft tissue head [...] as of this encounter (statuses as of 01/05/2024) Immunizations Name Administration Dates Next Due COVID-19 mRNA, LNP-s, No Pre serve, 2-Dose Series (Vixar) 02/18/2022,10/11/2020,09/13/2020 Pneumococcal Conjugate Vacc, 13 Valent (Prevnar) [...] encounter Miscellaneous Notes * Telephone Encounter - Mary Tineo LPN - 10/08/2023 11:18 AM EDT Patient , Letty is calling. Asking about the urine results they received. Informed they are good. She was concerned because the one said that his ratio is low unable to interpret. Feels better now that she understands. Loves October. She is their favorite. * Telephone Encounter - Yoly Thao OSA - 10/08/2023 11:08 AM EDT Who is Requesting Test Results: Letty, Primary Care Provider : Sanjiv Hart III, MD Tests Results Requested : lab Date of Test : 09.21.23 Location of Test: [facility] Ordering Provider: Patricia Leal Caller transferred to [facility] at dedicated nurse line. * Telephone Encounter - Lexii Lam OSA - 10/07/2023 10:23 AM EDT Patient calling in to check on the status of previous message. Patient states that they no longer have access to [employer] portal, would like to know what should be done in response to letter received stating "Uninterpretable Albumin/Creatinine ratio due to very low albumin and creatinine values" * Telephone Encounter - Monika Lora OSA - 10/06/2023 2:26 PM EDT Pt's is calling. Would like to speak to a nurse about his urine test from last week. Received results in mail but not a call. Please call today. documented in this encounter Plan of Treatment Upcoming Encounters Date Type Department Care Team (Late st Contact Info) Description 02/25/2024 2:00 PM EDT Office Visit [facility] [address] [place] [address] Marta Moran MD [address] [place] [address] Flash Cortes Nurse [address] [place] [address] Jarred Corteser [place] [address] [place] [address] 05/25/2024 10:20 AM EST Office Visit Nephrology [facility], [address] [place] [address] Jayden Vasques MD [address] [place] [address] Scheduled Procedures Name Priority Associated Diagnoses Date/Ti me COLONOSCOPY FLEXIBLE PROXIMAL DIAGNOSTIC Recall History of colon polyps Health Maintenance Due Date Last Done Comments Alpha-1 Antitrypsin 1965 *ADVANCE DIRECTIVE NOT ON FILE 05/06/2019 DTaP,Tdap,and Td Vaccines (2 - Td or Tdap) 10/01/2021 10/02/2011, 07/26/2003, 07/19/1992 COVID-19 Vaccine ( - 2022- season) 2023 02/18/2022, 10/11/2020, 09/13/2020 [...] this encounter Medical Devices Implanted Type Area It Service Continuity Supervisor Device Identifier Shelf Expiration Date Model / Serial / Lot [id number] - [id number] Implanted:Qty : 1 on 09/26/2007 [place] [facility] [place] - Human Right: Neck [employer] 10/17/2008 [id number] / / [id number] Description:alloderm 3x7cm Elect Nucleus Slim Str [id number] - [id number] Implanted:Qty : 1 on 12/21/2022 by Ollie Borja MD [place] [facility] [place]: Ear [employer] 11/04/2024 [id number] / / [id number] documented as of this encounter Advance Directives * Full Code (Latest Code Status on File) Date Activated Date Inactivated Comments 09/26/2007 1:43 PM 09/27/2007 5:30 PM * Full Code Date Activated Date Inactivated Comments 08/09/2007 1:38 PM 08/12/2007 5:16 PM Care Teams Ski Lift Operator Relationship Specialty Start Date End Date Sanjiv Hart III, MD [address] [place] [address] PCP - General Family Medicine 09/09/18 documented as of this encounter
--- OUTSIDE RECORDS SUMMARY | 2024-01-30 20:26 | External Medical Summary | Summary of Care ---
Author Name Unknown Organization [facility] Address [address] [place] [address] Phone [phone] Care Team Providers Care Real Estate Specialist Name Role Phone Tanner CANTU MD, Sanjiv Moser Primary Care Provider [phone] Reason for Visit * Reason Onset Date Comments Family Concerns 01/14/2024 Encounter Details Date Type Department Care Team (Late st Contact Info) Description 01/14/2024 Telephone Nephrology, [place] [address] [facility] [place] [address] Jayden Vasques MD [address] [facility] [place] [address] Family Concerns Allergies Active Allergy Reactions Criticality [...] Additional Information Patient not taking.Reported on 10/25/2023 [employer] Ultra In Vitro Strip (Glucose Blood)Indications:Hy poglycemia USE DIRECTED FOUR TIMES A DAY NEEDED FOR HYPERGLYCEMIA (HIGH SUGAR). DX:E11.9 100 Strip 5 10/28/2022 Active Dexcom G7 SensorIndications:Hy poglycemia Use 1 Units as directed daily. 1 Each 5 06/09/2023 Active Dexcom G7 Screen Printing Paster DeviceIndications:Hy poglycemia Use 1 Units as directed [...] Oral Tablet (Lipitor)Indications :Coronary artery disease involving [place] coronary artery of [place] heart without angina pectoris Take 1 Tablet [...] Diagnosed Date Coronary artery disease invo lving [place] coronary artery of [place] heart without angina pectoris 10/25/2023 MRI contraindicated [...] 10/23/2008 02/16/2013 ACTIVE CASE MANAGEMENT-Yanet Cordell Rn- [phone] 09/28/2007 02/16/2008 Malignant neoplasm soft tissue head [...] encounter Miscellaneous Notes * Telephone Encounter - La Mccallum OSA - 01/14/2024 10:35 AM EDT Pt is having blood pressure the is fluctuating wildly, with very high and then low numbers. Pt is having periods of confusion. is very concerned documented in this encounter Plan of Treatment Upcoming Encounters Date Type Department Care Team (Late st Contact Info) Description 02/25/2024 2:00 PM EDT Office Visit [address] [id number] Marta Moran MD [address] [place] [address] Flash Cortes Nurse [address] [place] [address] Jarred Corteser [address] [address] 05/25/2024 10:20 AM EST Office Visit Nephrology [address] [place] [address] Jayden Vasques MD [address] [place] [address] Scheduled Procedures Name Priority Associated Diagnoses Date/Ti me COLONOSCOPY FLEXIBLE PROXIMAL DIAGNOSTIC Recall History of colon polyps Health Maintenance Due Date Last Done Comments Alpha-1 Antitrypsin 1965 *ADVANCE DIRECTIVE NOT ON FILE 05/06/2019 DTaP,Tdap,and Td Vaccines (2 - Td or Tdap) 10/01/2021 10/02/2011, 07/26/2003, 07/19/1992 COVID-19 Vaccine ( - season) 2023 02/18/2022, 10/11/2020, 09/13/2020 Depression Monitoring [...] this encounter Medical Devices Implanted Type Area Forensic Photographer Device Identifier Shelf Expiration Date Model / Serial / Lot [id number] - [id number] Implanted:Qty : 1 on 09/26/2007 [place] [facility] [place] - Human Right: Neck [employer]LL [employer] 10/17/2008 [id number] / / [id number] Description:alloderm 3x7cm Elect Nucleus Slim Str [id number] - [id number] Implanted:Qty : 1 on 12/21/2022 by Ollie Borja MD at [place] [facility] [place] Left: Ear [employer] 11/04/2024 [id number] / / [id number] documented as of this encounter Advance Directives * Full Code (Latest Code Status on File) Date Activated Date Inactivated Comments 09/26/2007 1:43 PM 09/27/2007 5:30 PM * Full Code Date Activated Date Inactivated Comments 08/09/2007 1:38 PM 08/12/2007 5:16 PM Care Teams Real Estate Specialist Relationship Specialty Start Date End Date Sanjiv Hart III, MD [address] [facility] [place] [address] PCP - General Family Medicine 09/09/18 documented as of this encounter
--- OUTSIDE RECORDS SUMMARY | 2024-01-30 20:26 | External Medical Summary | Summary of Care ---
Author Name Unknown Organization [facility] Address [address] [place] [address] Phone [phone] Care Team Providers Care Drug Abuse Technician Name Role Phone Tanner CANTU MD, Sanjiv Moser Primary Care Provider [phone] Reason for Visit * Reason Onset Date Comments Family Concerns 01/14/2024 Encounter Details Date Type Department Care Team (Late st Contact Info) Description 01/14/2024 Telephone Nephrology, Kely [place] [address] [place] [address] Jayden Vasques MD [address] [facility] [place] [address] Family Concerns Allergies Active Allergy Reactions Criticality [...] Additional Information Patient not taking.Reported on 10/25/2023 [employer] Ultra In Vitro Strip (Glucose Blood)Indications:Hy poglycemia USE DIRECTED FOUR TIMES A DAY NEEDED FOR HYPERGLYCEMIA (HIGH SUGAR). DX:E11.9 100 Strip 5 10/28/2022 Active Dexcom G7 SensorIndications:Hy poglycemia Use 1 Units as directed daily. 1 Each 5 06/09/2023 Active Dexcom G7 Computer Mechanic DeviceIndications:Hy poglycemia Use 1 Units as directed [...] Oral Tablet (Lipitor)Indications :Coronary artery disease involving [place] coronary artery of [place] heart without angina pectoris Take 1 Tablet [...] Diagnosed Date Coronary artery disease invo lving [place] coronary artery of [place] heart without angina pectoris 10/25/2023 MRI contraindicated [...] 10/23/2008 02/16/2013 ACTIVE CASE MANAGEMENT-Yanet Cordell Rn- [phone] 09/28/2007 02/16/2008 Malignant neoplasm soft tissue head [...] nights 239/129 Pt has been seen in [facility] ED and sent home This AM 115/64 Pt is having periods of confusion will take pt to ED now She is advised will try to have him seen earlier with Dr Vasques for f/u on fluctuating BP verbalizes understanding Dietist can this pt been seen over next [...] Description 02/25/2024 2:00 PM EDT Office Visit [facility] [address] [facility] [address] [address] Marta Moran MD [address] [place] [address] Flash Cortes Nurse [address] [place] [address] [phone] Jarred Corteser [address] [address] 05/25/2024 10:20 AM EST Office Visit Nephrology [address] [place] [address] Jayden Vasques MD 200 [facility] [place] [address] Scheduled Procedures Name Priority Associated Diagnoses Date/Ti [...] this encounter Medical Devices Implanted Type Area Environmental Protection Specialist Device Identifier Shelf Expiration Date Model / Serial / Lot [id number] - [id number] Implanted:[place] : 1 [place] [facility] [place] - Human Right: Neck [employer] 10/17/2008 [id number] / / [id number] Description:alloderm 3x7cm Elect Nucleus Slim Str [id number] - [id number] Implanted:Qty : 1 on 12/21/2022 by Ollie Borja MD at [facility] Left: Ear [employer] 11/04/2024 [id number] / / [id number] documented as of this encounter Advance Directives * Full Code (Latest Code Status on File) Date Activated Date Inactivated Comments 09/26/2007 1:43 PM 09/27/2007 5:30 PM * Full Code Date Activated Date Inactivated Comments 08/09/2007 1:38 PM 08/12/2007 5:16 PM Care Teams Drug Abuse Technician Relationship Specialty Start Date End Date Sanjiv Hart III, MD [address] [place] [address] PCP - General Family Medicine 09/09/18 documented as of this encounter
[2024-01-30 20:55] LABS: Basophils # (auto) 0.04 K/uL (0.00-0.20); Basophils % (auto) 0.5 %; Eosinophils # (auto) 0.09 K/uL (0.00-0.50); Eosinophils % (auto) 1.1 %; Hematocrit (blood only) 44.9 % (42.0-52.0); Hemoglobin 15.5 g/dl (14.0-18.0); Immature Granulocytes # (auto) 0.03 K/uL (0.01-0.20); Immature Granulocytes % (auto) 0.4 %; Lymphocytes # (auto) 0.45 K/uL (1.20-3.40); Lymphocytes % (auto) 5.7 %; Mean Corpuscular Hemoglobin 32.7 pg (25.0-34.0); Mean Corpuscular Hgb Conc 34.5 g/dL (32.0-36.0); Mean Corpuscular Volume 94.7 fL (80.0-100.0); Mean Platelet Volume 11.2 fL (9.4-12.4); Monocytes # (auto) 0.69 K/uL (0.11-0.59); Monocytes % (auto) 8.7 %; Neutrophils # (auto) 6.65 K/uL (1.40-6.50); Neutrophils % (auto) 83.6 %; Platelet Count 195 K/uL (130-400); RDW Coefficient of Variation 13.2 % (11.5-14.5); RDW Standard Deviation 46.2 fL (36.4-46.3); Red Blood Count 4.74 M/uL (4.70-6.10); White Blood Count 7.95 K/ul (4.8-10.8)
--- NOTE | 2024-01-30 20:59 | Emergency Department Note ---
Impression & Plan Blood pressure instability, Head injury, closed, with brief LOC, COVID-19 ED Provider Note Provider: Josr Chen MD DATE OF SERVICE: 01/30/2024 CHIEF COMPLAINT: Fall HISTORY OF PRESENT ILLNESS: Patient is a 78-year-old gentleman unfortunate history of throat cancer now more or less nonverbal, history of pneumonia, labile blood pressures, feeding tube, and COPD presenting here via ambulance tonight. Patient was only home with his and heard a thud. Patient went to get up and walk to the bathroom and lost his balance and fell and struck the back of his head on table and went to the ground. Was unconscious for several minutes according to . Patient himself difficulty much of a history from due to his nonverbal status but does seem to indicate that he does complain of headache. Vomited for EMS and route. Seems to be chilly and cold at the moment but no fevers or other recent illness reported. Patient also very difficult of hearing as well according to . PAST MEDICAL HISTORY: As noted above MEDICATIONS: Reviewed medication list SOCIAL HISTORY: PHYSICAL EXAM: GENERAL: alert and oriented in no acute distress on stretcher Head: normocephalic and atraumatic without any obvious wounds or swelling EYES: No injection, discharge or icterus. PERRL, EOMI. NECK: Trachea midline. Supple without significant midline tenderness obviously noted ENT: Mucous membranes pink and moist. LUNGS: Airway patent. No retractions. Breath sounds clear with good air entry bilaterally. HEART: Regular rate and rhythm. No chest wall tenderness ABDOMEN: Soft and non-tender, without guarding or rebound. Feeding tube in place. SKIN: Acyanotic, warm, dry, without rashes EXTREMITIES: Without swelling, tenderness or deformity NEUROLOGICAL: Not really verbal. Occasionally seems to understand and make some gestures. Seems to move all extremities but seems somewhat chilly and tremulous. EK bpm normal sinus rhythm. No PVC or PAC. No acute ST segment elevation or depression with QTc of 490 and a left axis notable. CONTINUOUS CARDIAC MONITORING: was ordered and showed a heart rate of 70s to 90s bpm in normal sinus rhythm GCS 15. Patient's laboratory studies and imaging reviewed. Differential includes Fracture, dislocation, contusion, intra-abdominal, pneumothorax, intrathoracic, intracranial, neurologic, compartment syndrome, rhabdomyolysis, as well as other pathologies. IMPRESSION/MEDICAL DECISION MAKING: Will look for possible traumatic injury as well as any possible metabolic or infectious abnormality that could cause the fall. EKG without significant findings. Limitations of history due to the patient's minimal verbal status and very hard of hearing status. Not on high risk anticoagulants or antiplatelet agents likely. Will complete trauma thompson scan. Will obtain blood work and blood cultures. Labile blood pressures noted but not significantly tachycardic and not unresponsive upon arrival. Blood without anemia or leukocytosis. No significant electrolyte abnormality. Lactate mildly of 20 given some IV fluid. Bili 1.4, AST is 46, ALT 43, alkaline phosphatase 107 not very specific. Procalcitonin barely detectable. No signs of significant renal dysfunction. CT imaging report without significant findings or traumatic injury. Respiratory viral panel is positive for COVID likely explains some of his symptoms and generalized weakness. Urinalysis negative for signs of infection. Given hide 6 mg dose of dexamethasone given the COVID status. Does have labile blood pressures at baseline and blood pressure does fluctuate here. Again received just over 500 cc of IV fluid here. Will bring to the hospital for further monitoring given his chronic comorbidities and fall with LOC today with COVID positive status are not significant hypoxic. in agreement. DIAGNOSIS: Fall, closed head injury with LOC, COVID-19 DISPOSITION: Hospitalist will evaluate Past Med/Surg History Problem List COVID-19 (Acute) Head injury, closed, with brief LOC (Acute) Respiratory syncytial virus (RSV) infection (Acute) Acute respiratory failure with hypoxia (Acute) Bronchopneumonia Encounter for pre-operative examination Aspiration pneumonia (Acute) H/O malignant neoplasm of tonsil (Acute) Lactic acidosis Pneumonia (Acute) Hypoxemia (Acute) Sepsis (Acute) Lab test negative for COVID-19 virus (Acute) Acute hypokalemia (Acute) DVT prophylaxis Protein calorie malnutrition Hypokalemia Chronic bronchitis Ex-smoker Hypoxia (Acute) Influenza A (Acute) COVID-19 (Acute) Rigors (Acute) Confusion (Acute) Fever (Acute) SIRS (systemic inflammatory response syndrome) Blood pressure instability (Acute) [facility] manages; currently using midodrine, and nitro PRN hypo/hypertension; per , cardiac workup wnl aside from BP changes Aspiration pneumonia hx - CAN NOT TAKE FOOD/LIQUIDS ORALLY Uses feeding tube Hypothyroidism Glaucoma Hypertension (Acute) Benign prostatic hyperplasia (Unknown) Chronic back pain Depression Gastroparesis COPD (chronic obstructive pulmonary disease) with emphysema H/O esophagogastroduodenoscopy (Unknown) WITH PLACEMENT PEG TUBE S/P arthroscopic knee surgery (Unknown) RT S/P colonoscopy (Unknown) Medical History Abnormal CT scan, neck 07/2022 [facility] - "7 mm lytic lesion within the C3 vertebral body." Per , outpt imaging since being d/c from hospital has r/o mets. 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 Degenerative disc disease Osteoarthritis GERD (gastroesophageal reflux disease) Anxiety Asthma rare use of PRN inh Orthostatic hypotension Tonsil carcinoma (Unknown) RADIATION AND CHEMO Surgical History History of radical neck dissection S/P percutaneous endoscopic gastrostomy (PEG) tube placement History of neck surgery LUMPECTOMY History of tooth extraction Family History Brother Family history of diabetes mellitus Social History Smoking Status: Former smoker Tobacco Type: Cigarettes Second Hand Exposure: No; Do You Dip or Chew Tobacco: No; Hx Alcohol Use: No Hx Substance Use: No Preferred Language: Citizen Of The [place] 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 Ability: Impaired 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 Ability Comment: assist w/ answering questions. habematolel, speech difficulties Factorer Required: No Beliefs That Will Affect Care: None marital status: Current Living Situation: Spouse Feels Safe at Home: Yes Assistive Devices: None Allergies Allergies Allergy/AdvReac Type Severity Reaction Status Date / Time levofloxacin Allergy Intermediate rash all Verified 01/31/24 00:48 over body sulfamethoxazole Allergy Intermediate ITCHING/HIVES Verified 01/31/24 00:48 WITH BACTRIM trimethoprim Allergy Intermediate ITCHING/HIVES Verified 01/31/24 00:48 WITH BACTRIM Nitrate Analogues AdvReac Severe DROP IN Verified 01/31/24 00:48 BP/UNCONSCIOUSNESS lisinopril AdvReac Intermediate ELEVATES Verified 01/31/24 00:48 B/P sertraline AdvReac Intermediate NOSE BLEEDS Verified 01/31/24 00:48 terazosin AdvReac Intermediate PRIAPRISM Verified 01/31/24 00:48 PER [facility] Home Meds Home Medications Medication Instructions Recorded Confirmed citalopram 20 mg tablet 20 mg feeding tube QAM 05/07/18 01/31/24 food supplemt, lactose-reduced 2 can feeding tube TID 05/07/18 01/31/24 (Nutritional Drink oral liquid) latanoprost 0.005 % eye drops 1 drp OPB HS 01/30/19 01/31/24 acetaminophen 500 mg tablet 1,000 mg feeding tube Q6H PRN Pain 03/06/21 01/31/24 (Tylenol Extra Strength) levothyroxine 88 mcg tablet 88 mcg feeding tube QAM 04/06/21 01/31/24 (Euthyrox) midodrine 5 mg tablet 10 mg feeding tube TID PRN 05/13/21 01/31/24 Hypotension atorvastatin 40 mg tablet 40 mg feeding tube QAM 06/02/21 01/31/24 albuterol sulfate 1.25 mg/3 mL 1.25 mg inhalation Q4H PRN 06/03/23 01/31/24 solution for nebulization Shortness Of Breath Or Wheezing clonidine HCl 0.1 mg tablet 0.1 mg feeding tube TID PRN SBP 01/31/24 01/31/24 180 OR> Results & Data (ED) Vital Signs Vital Signs - 24 hr 01/30/24 20:27 01/30/24 20:27 01/30/24 20:46 Temperature 37.4 C Temperature Source Rectal Pulse Rate 87 87 Pulse Rate [Apical] 87 Pulse Rhythm [Apical] Pulse Strength [Apical] Respiratory Rate 26 H 19 Respiratory Effort / Characteristics Respiratory Depth Respiratory Pattern Blood Pressure 128/68 Blood Pressure [Right Arm] 128/68 Blood Pressure Mean 88 Blood Pressure Mean [Right Arm] 88 Blood Pressure Position [Right Arm] Pulse Oximetry 100 100 Oxygen Delivery Method Room Air Room Air Sepsis Recent Fever Within 48 Hours No Sepsis New/Unexplained Change in Mental Status No Sepsis Action Taken by Nursing No Action Required 01/30/24 20:57 01/30/24 21:51 01/30/24 22:41 Temperature Temperature Source Pulse Rate Pulse Rate [Apical] 81 83 Pulse Rhythm [Apical] Pulse Strength [Apical] Respiratory Rate 15 17 Respiratory Effort / Characteristics Respiratory Depth Respiratory Pattern Blood Pressure Blood Pressure [Right Arm] 109/66 146/85 H Blood Pressure Mean Blood Pressure Mean [Right Arm] 80 105 Blood Pressure Position [Right Arm] Pulse Oximetry 100 99 99 Oxygen Delivery Method Room Air Room Air Room Air Sepsis Recent Fever Within 48 Hours Sepsis New/Unexplained Change in Mental Status Sepsis Action Taken by Nursing 01/30/24 23:06 01/30/24 23:15 01/30/24 23:21 Temperature Temperature Source Pulse Rate Pulse Rate [Apical] 68 60 63 Pulse Rhythm [Apical] Regular Regular Regular Pulse Strength [Apical] Normal Normal Normal Respiratory Rate 17 17 17 Respiratory Effort / Characteristics Non-Labored Spontaneous Non-Labored Spontaneous Non-Labored Spontaneous Respiratory Depth Normal Normal Normal Respiratory Pattern Regular Regular Regular Blood Pressure Blood Pressure [Right Arm] 89/55 L 76/47 L 90/45 L Blood Pressure Mean Blood Pressure Mean [Right Arm] 66 56 60 Blood Pressure Position [Right Arm] Lying Lying Lying Pulse Oximetry 94 94 95 Oxygen Delivery Method Room Air Room Air Room Air Sepsis Recent Fever Within 48 Hours Sepsis New/Unexplained Change in Mental Status Sepsis Action Taken by Nursing 01/30/24 23:30 01/31/24 00:00 01/31/24 00:30 Temperature Temperature Source Pulse Rate Pulse Rate [Apical] 64 69 72 Pulse Rhythm [Apical] Regular Regular Regular Pulse Strength [Apical] Normal Normal Normal Respiratory Rate 18 17 20 Respiratory Effort / Characteristics Non-Labored Spontaneous Non-Labored Spontaneous Non-Labored Spontaneous Respiratory Depth Normal Normal Normal Respiratory Pattern Regular Regular Regular Blood Pressure Blood Pressure [Right Arm] 100/55 L 135/76 143/78 H Blood Pressure Mean Blood Pressure Mean [Right Arm] 70 95 99 Blood Pressure Position [Right Arm] Lying Sitting Sitting Pulse Oximetry 94 94 92 Oxygen Delivery Method Room Air Room Air Room Air Sepsis Recent Fever Within 48 Hours Sepsis New/Unexplained Change in Mental Status Sepsis Action Taken by Nursing 01/31/24 01:00 Temperature Temperature Source Pulse Rate Pulse Rate [Apical] 70 Pulse Rhythm [Apical] Regular Pulse Strength [Apical] Normal Respiratory Rate 19 Respiratory Effort / Characteristics Non-Labored Spontaneous Respiratory Depth Normal Respiratory Pattern Regular Blood Pressure Blood Pressure [Right Arm] 140/77 Blood Pressure Mean Blood Pressure Mean [Right Arm] 98 Blood Pressure Position [Right Arm] Lying Pulse Oximetry 94 Oxygen Delivery Method Room Air Sepsis Recent Fever Within 48 Hours Sepsis New/Unexplained Change in Mental Status Sepsis Action Taken by Nursing Laboratory Data 01/30/24 20:37 01/30/24 20:37 Lab Results 01/30/24 01/30/24 01/30/24 Range/Units 20:37 21:06 21:49 WBC 7.95 (4.8-10.8) K/ul RBC 4.74 (4.70-6.10) M/uL Hgb 15.5 (14.0-18.0) g/dl POC Hgb 15.6 (14.0-18.0) g/dl Hct 44.9 (42.0-52.0) % POC Hct 46 (42-52) % MCV 94.7 (80.0-100.0) fL MCH 32.7 (25.0-34.0) pg MCHC 34.5 (32.0-36.0) g/dL RDW Std Deviation 46.2 (36.4-46.3) fL RDW Coeff of Judy 13.2 (11.5-14.5) % Plt Count 195 (130-400) K/uL MPV 11.2 (9.4-12.4) fL Immature Gran % (Auto) 0.4 % Neut % (Auto) 83.6 % Lymph % (Auto) 5.7 % Hunt % (Auto) 8.7 % Eos % (Auto) 1.1 % Baso % (Auto) 0.5 % Neut # (Auto) 6.65 H (1.40-6.50) K/uL Lymph # (Auto) 0.45 L (1.20-3.40) K/uL Hunt # (Auto) 0.69 H (0.11-0.59) K/uL Eos # (Auto) 0.09 (0.00-0.50) K/uL Baso # (Auto) 0.04 (0.00-0.20) K/uL Immature Gran # (Auto) 0.03 (0.01-0.20) K/uL PT 11.7 (9.0-12.0) Seconds INR 1.1 (0.9-1.1) POC Sodium 137 (135-144) mmol/L Sodium 136 (136-145) mmol/L POC Potassium 3.4 (3.3-5.0) mmol/L Potassium 3.5 (3.5-5.1) mmol/L POC Chloride 99 L (101-112) mmol/L Chloride 99 (98-107) mmol/L Carbon Dioxide 26 (21-32) mmol/L POC Total CO2 25 (24-31) mmol/L Anion Gap 11 (3-11) POC Anion Gap 17.0 (16-25) mmol/L POC BUN 7 (7-18) mg/dl BUN 8 (6-23) mg/dl Creatinine 1.19 (0.6-1.4) mg/dl POC Creatinine 1.1 (0.6-1.3) mg/dl Est Cr Clr Drug Dosing 56.2 ml/min Est GFR ( Amer) 68.4 ml/min Est GFR (Non-Af Amer) 59.0 ml/min BUN/Creatinine Ratio 6.7 L (10-20) Glucose 145 H (70-99(Fasting)) mg/dl POC Glucose (other) 142 H (70-99) mg/dl Lactate 2.8 H* (0.4-2.0) mmol/L Calcium 9.7 (8.6-10.3) mg/dl POC Ioniz Calcium Alton 1.10 L (1.12-1.32) mmol/l Magnesium 1.9 (1.7-2.4) mg/dl Total Bilirubin 1.4 H (0.2-1.0) mg/dl AST 46 H (13-39) U/L ALT 43 (7-52) U/L Alkaline Phosphatase 107 H (34-104) U/L Total Creatine Kinase 39 (30-223) U/L Troponin I High Sens 5.7 (0-20) pg/ml Total Protein 8.0 (6.0-8.3) gm/dl Albumin 4.3 (3.4-5.0) gm/dl Globulin 3.7 (2.5-4.0) gm/dl Albumin/Globulin Ratio 1.2 (0.9-2) Procalcitonin 0.02 (0-0.5) ng/ml Urine Color Urine Appearance (Clear) Urine pH (4.5-7.5) Ur Specific [place] (1.000-1.030) Urine Protein (Negative) Urine Glucose (UA) (Negative) Urine Ketones (Negative) Urine Blood (Negative) Urine Nitrite (Negative) Urine Bilirubin (Negative) Urine Urobilinogen (Negative) Ur Leukocyte Esterase (Negative) Adenovirus (PCR) Not Detected (NotDetected) B. pertussis DNA (PCR) Not Detected (NotDetected) B.parapertussis DNA PCR Not Detected (NotDetected) C. pneumoniae DNA (PCR) Not Detected (NotDetected) Coronavirus OC43 (PCR) Not Detected (NotDetected) Coronavirus HKU1 (PCR) Not Detected (NotDetected) Coronavirus 229E (PCR) Not Detected (NotDetected) SARS-CoV-2 (PCR) DETECTED A (NotDetected) Coronavirus NL63 (PCR) Not Detected (NotDetected) Human Metapneumovir PCR Not Detected (NotDetected) Influenza Type A (PCR) Not Detected (NotDetected) Influenza Type B (PCR) Not Detected (NotDetected) M. pneumoniae (PCR) Not Detected (NotDetected) Parainfluenza 1 (PCR) Not Detected (NotDetected) Parainfluenza 2 (PCR) Not Detected (NotDetected) Parainfluenza 3 (PCR) Not Detected (NotDetected) Parainfluenza 4 (PCR) Not Detected (NotDetected) RSV (PCR) Not Detected (NotDetected) Entero/Rhino (PCR) Not Detected (NotDetected) 01/30/24 01/30/24 Range/Units 22:44 22:46 WBC (4.8-10.8) K/ul RBC (4.70-6.10) M/uL Hgb (14.0-18.0) g/dl POC Hgb (14.0-18.0) g/dl Hct (42.0-52.0) % POC Hct (42-52) % MCV (80.0-100.0) fL MCH (25.0-34.0) pg MCHC (32.0-36.0) g/dL RDW Std Deviation (36.4-46.3) fL RDW Coeff of Judy (11.5-14.5) % Plt Count (130-400) K/uL MPV (9.4-12.4) fL Immature Gran % (Auto) % Neut % (Auto) % Lymph % (Auto) % Hunt % (Auto) % Eos % (Auto) % Baso % (Auto) % Neut # (Auto) (1.40-6.50) K/uL Lymph # (Auto) (1.20-3.40) K/uL Hunt # (Auto) (0.11-0.59) K/uL Eos # (Auto) (0.00-0.50) K/uL Baso # (Auto) (0.00-0.20) K/uL Immature Gran # (Auto) (0.01-0.20) K/uL PT (9.0-12.0) Seconds INR (0.9-1.1) POC Sodium (135-144) mmol/L Sodium (136-145) mmol/L POC Potassium (3.3-5.0) mmol/L Potassium (3.5-5.1) mmol/L POC Chloride (101-112) mmol/L Chloride (98-107) mmol/L Carbon Dioxide (21-32) mmol/L POC Total CO2 (24-31) mmol/L Anion Gap (3-11) POC Anion Gap (16-25) mmol/L POC BUN (7-18) mg/dl BUN (6-23) mg/dl Creatinine (0.6-1.4) mg/dl POC Creatinine (0.6-1.3) mg/dl Est Cr Clr Drug Dosing ml/min Est GFR ( Amer) ml/min Est GFR (Non-Af Amer) ml/min BUN/Creatinine Ratio (10-20) Glucose (70-99(Fasting)) mg/dl POC Glucose (other) (70-99) mg/dl Lactate 1.4 (0.4-2.0) mmol/L Calcium (8.6-10.3) mg/dl POC Ioniz Calcium Alton (1.12-1.32) mmol/l Magnesium (1.7-2.4) mg/dl Total Bilirubin (0.2-1.0) mg/dl AST (13-39) U/L ALT (7-52) U/L Alkaline Phosphatase (34-104) U/L Total Creatine Kinase (30-223) U/L Troponin I High Sens (0-20) pg/ml Total Protein (6.0-8.3) gm/dl Albumin (3.4-5.0) gm/dl Globulin (2.5-4.0) gm/dl Albumin/Globulin Ratio (0.9-2) Procalcitonin (0-0.5) ng/ml Urine Color Yellow Urine Appearance Clear (Clear) Urine pH 8.0 H (4.5-7.5) Ur Specific [place] 1.045 H (1.000-1.030) Urine Protein Negative (Negative) Urine Glucose (UA) Negative (Negative) Urine Ketones Negative (Negative) Urine Blood Negative (Negative) Urine Nitrite Negative (Negative) Urine Bilirubin Negative (Negative) Urine Urobilinogen Negative (Negative) Ur Leukocyte Esterase Negative (Negative) Adenovirus (PCR) (NotDetected) B. pertussis DNA (PCR) (NotDetected) B.parapertussis DNA PCR (NotDetected) C. pneumoniae DNA (PCR) (NotDetected) Coronavirus OC43 (PCR) (NotDetected) Coronavirus HKU1 (PCR) (NotDetected) Coronavirus 229E (PCR) (NotDetected) SARS-CoV-2 (PCR) (NotDetected) Coronavirus NL63 (PCR) (NotDetected) Human Metapneumovir PCR (NotDetected) Influenza Type A (PCR) (NotDetected) Influenza Type B (PCR) (NotDetected) M. pneumoniae (PCR) (NotDetected) Parainfluenza 1 (PCR) (NotDetected) Parainfluenza 2 (PCR) (NotDetected) Parainfluenza 3 (PCR) (NotDetected) Parainfluenza 4 (PCR) (NotDetected) RSV (PCR) (NotDetected) Entero/Rhino (PCR) (NotDetected) Administered Medications Discontinued Medications Dexamethasone Sodium Phosphate (DexamethasonePf 10 Mg/Ml Vial) 6 mg IV NOW ONE Stop: 01/30/24 23:10 Last Admin: 01/30/24 23:19 Dose: 6 mg Documented By: HOA Acetaminophen (Ofirmev) 1,000 mg in 100 mls @ 400 mls/hr IV NOW STA Stop: 01/30/24 21:09 Last Infusion: 01/30/24 21:24 Dose: Infused Documented By: Admin: 01/30/24 21:08 Dose: 400 mls/hr Documented By: AMY Sodium Chloride (Nss) 500 mls @ 999 mls/hr IV .Q31M ONE Stop: 01/30/24 21:32 Last Infusion: 01/30/24 21:53 Dose: Infused Documented By: Admin: 01/30/24 21:13 Dose: 999 mls/hr Documented By: AMY Ioversol (Optiray 320 100ml) 91 ml IV ONCE ONE Stop: 01/30/24 21:31 Last Admin: 01/30/24 21:30 Dose: 91 ml Documented By: BELTRAN Midodrine (Midodrine Hcl 10 Mg Tab) 10 mg PO NOW STA Stop: 01/31/24 00:17 Last Admin: 01/31/24 01:16 Dose: 10 mg Documented By: JOBY Imaging Data Radiologist's Impression: Abdomen/Pelvis CT 01/30/24 20:54 Exam(s): CT ABDOMEN + PELVIS With Contrast IV Amt: 91 ml optiray 320 EXAM: CT Abdomen and Pelvis With Intravenous Contrast CLINICAL HISTORY: Reason for exam: fall, vomiting, chills. TECHNIQUE: Axial computed tomography images of the abdomen and pelvis with intravenous contrast. CTDI is 31.46 mGy and DLP is 1739.73 mGy-cm. Automated exposure control was utilized for the study. A dose lowering technique was utilized adhering to the principles of ALARA. CONTRAST: Patient received 91 ml optiray 320 of IV contrast COMPARISON: No relevant prior studies available. FINDINGS: Lung bases: Unremarkable. No mass. No consolidation. ABDOMEN: Liver: Unremarkable. No mass. Gallbladder and bile ducts: Unremarkable. No calcified stones. No ductal dilation. Pancreas: Unremarkable. No mass. No ductal dilation. Spleen: Unremarkable. No splenomegaly. Adrenals: Unremarkable. No mass. Kidneys and ureters: Unremarkable. No solid mass. No hydronephrosis. Stomach and bowel: Unremarkable. No obstruction. No mucosal thickening. PELVIS: Appendix: No findings to suggest acute appendicitis. Bladder: Unremarkable. No mass. Reproductive: Unremarkable as visualized. ABDOMEN and PELVIS: Intraperitoneal space: Unremarkable. No free air. No significant fluid collection. Bones/joints: Degenerative changes of the spine. No acute fracture. No dislocation. Soft tissues: Unremarkable. Vasculature: Atherosclerotic changes of the aorta. No abdominal aortic aneurysm. Lymph nodes: Unremarkable. No enlarged lymph nodes. Tubes, lines and devices: Feeding tube terminates in the stomach. IMPRESSION: No acute findings in the abdomen or pelvis. Electronically signed by: Josse Deluna MD 01/31/24 00:[address] 01/30/24 20:54 Exam(s): CT C SPINE EXAM: CT Cervical Spine Without Intravenous Contrast CLINICAL HISTORY: Reason for exam: fall. TECHNIQUE: Axial computed tomography images of the cervical spine without intravenous contrast. CTDI is 23.86 mGy and DLP is 557.96 mGy-cm. Automated exposure control was utilized for the study. A dose lowering technique was utilized adhering to the principles of ALARA. COMPARISON: No relevant prior studies available. FINDINGS: The vertebral body heights are maintained. The craniocervical junction is intact. The atlanto-dens interval is maintained. The dens is intact. There is no spondylolisthesis. Multilevel cervical spondylosis and degenerative disc disease. Straightening of the cervical lordosis. Scarring at the RIGHT lung apex. IMPRESSION: No acute fracture or subluxation of the cervical spine. Electronically signed by: Josse Deluna MD 01/31/24 00:[address] 01/30/24 20:54 Exam(s): CT CHEST With Contrast IV Amt: 91 ml optiray 320 EXAM: CT Chest With Intravenous Contrast CLINICAL HISTORY: Reason for exam: fall. TECHNIQUE: Axial computed tomography images of the chest with intravenous contrast. CTDI is 30.26 mGy and DLP is 1037.52 mGy-cm. Automated exposure control was utilized for the study. A dose lowering technique was utilized adhering to the principles of ALARA. CONTRAST: Patient received 91 ml optiray 320 of IV contrast COMPARISON: No relevant prior studies available. FINDINGS: Lungs: Mild small airway mucoid impaction of the RIGHT lung base. No mass. No consolidation. Pleural space: Unremarkable. No pneumothorax. No significant effusion. Heart: Unremarkable. No cardiomegaly. No significant pericardial effusion. No significant coronary artery calcifications. Bones/joints: Degenerative changes of the spine. No acute fracture. No dislocation. Soft tissues: Unremarkable. Vasculature: Atherosclerotic changes of the aorta. No thoracic aortic aneurysm. Lymph nodes: Unremarkable. No enlarged lymph nodes. IMPRESSION: No acute findings in the chest. Electronically signed by: Josse Deluna MD 01/31/24 00:[address] 01/30/24 20:54 Exam(s): CT HEAD Without Contrast EXAM: CT Head Without Intravenous Contrast CLINICAL HISTORY: Reason for exam: fall, vomit. TECHNIQUE: Axial computed tomography images of the head/brain without intravenous contrast. CTDI is 36.05 mGy and DLP is 624.41 mGy-cm. Automated exposure control was utilized for the study. A dose lowering technique was utilized adhering to the principles of ALARA. COMPARISON: Head CT February 20, 2023. FINDINGS: No acute intracranial hemorrhage. No midline shift or mass effect. The territorial ferguson-white matter differentiation is maintained throughout. Age-related cerebral volume loss. Periventricular and subcortical white matter hypoattenuation, consistent with chronic microangiopathy. The visualized orbits appear grossly unremarkable. LEFT cochlear implant. IMPRESSION: No acute intracranial hemorrhage, midline shift, or mass effect. Electronically signed by: Josse Deluna MD 01/31/24 00:01 AM Discharge Plan Visit Data Chief Complaint: Fall Stated Complaint: FALL - NO KNOWN INJURIES ED Provider: Josr Chen Discharge Problem: Blood pressure instability, Head injury, closed, with brief LOC, COVID-19 Patient Disposition: Being Evaluated by Hospitalist Forms Stand Alone Forms: My [facility] Prescriptions Prescriptions: No Action latanoprost 0.005 % Drops 1 drp OPB HS citalopram 20 mg tablet 20 mg Feeding Tube QAM Nutritional Drink Liquid 2 can Feeding Tube TID acetaminophen [Tylenol Extra Strength] 500 mg Tablet 1,000 mg feeding tube Q6H PRN (Reason: Pain) levothyroxine [Euthyrox] 88 mcg tablet 88 mcg feeding tube QAM atorvastatin 40 mg tablet 40 mg feeding tube QAM albuterol sulfate 1.25 mg/3 mL solution for nebulization 1.25 mg inhalation Q4H PRN (Reason: Shortness Of Breath Or Wheezing) midodrine 5 mg Tablet 10 mg feeding tube TID PRN (Reason: Hypotension) Rx Instructions: PRN systolic BP < 180 clonidine HCl 0.1 mg tablet 0.1 mg feeding tube TID PRN (Reason: SBP 180 OR>) Referrals Referrals: Sanjiv Hart MD [Primary Care Provider] -
[2024-01-30] MEDS: ACETAMINOPHEN 1,000 MG/100 ML VIAL IV STA (21:08)
[2024-01-30 21:12] LABS: Albumin Globulin Ratio 1.2 (0.9-2); Albumin Level 4.3 gm/dl (3.4-5.0); BUN Creatinine Ratio 6.7 (10-20); Bilirubin,Total 1.4 mg/dl (0.2-1.0); Calcium 9.7 mg/dl (8.6-10.3); Creatinine Clr Calc Pharmacy 56.2 ml/min; Est GFR (African American) 68.4 ml/min; Globulin 3.7 gm/dl (2.5-4.0); Potassium 3.5 mmol/L (3.5-5.1)
[2024-01-30] MEDS: SODIUM CHLORIDE 0.9% 500 ML IV ONE (21:13)
[2024-01-30 21:18] LABS: Troponin I High Sensitivity 5.7 pg/ml (0-20)
[2024-01-30 21:19] LABS: iSTAT Creatinine 1.1 mg/dl (0.6-1.3); iSTAT Hemoglobin 15.6 g/dl (14.0-18.0); iSTAT Ionized Calcium 1.1 mmol/l (1.12-1.32); iSTAT Potassium 3.4 mmol/L (3.3-5.0)
[2024-01-30 21:20] LABS: INR 1.1 (0.9-1.1); Prothrombin Time 11.7 Seconds (9.0-12.0)
[2024-01-30] MEDS: OPTIRAY 320 100ml IV ONE (21:30)
[2024-01-30 22:47] LABS: Adenovirus PCR Not Detected (NotDetected); Bordetella parapertussis PCR Not Detected (NotDetected); Bordetella pertussis PCR Not Detected (NotDetected); Chlamydia pneumoniae PCR Not Detected (NotDetected); Coronavirus 229E PCR Not Detected (NotDetected); Coronavirus CoV-2 (COVID19)PCR DETECTED (NotDetected); Coronavirus HKU1 PCR Not Detected (NotDetected); Coronavirus NL63 PCR Not Detected (NotDetected); Coronavirus OC43PCR Not Detected (NotDetected); Human Metapneumovirus PCR Not Detected (NotDetected); Influenza A PCR Not Detected (NotDetected); Influenza B PCR Not Detected (NotDetected); Mycoplasma pneumoniae PCR Not Detected (NotDetected); Parainfluenza Virus 1 PCR Not Detected (NotDetected); Parainfluenza Virus 2 PCR Not Detected (NotDetected); Parainfluenza Virus 3 PCR Not Detected (NotDetected); Parainfluenza Virus 4 PCR Not Detected (NotDetected); Respiratory Syncytial VirusPCR Not Detected (NotDetected); Rhinovirus/Enterovirus PCR Not Detected (NotDetected)
[2024-01-30 22:59] LABS: Appearance Urine Clear (Clear); Bilirubin Urine Negative (Negative); Blood Urine Negative (Negative); Color Urine Yellow; Glucose Urine UA Negative (Negative); Ketones Urine Negative (Negative); Leukocyte Esterase Urine Negative (Negative); Nitrite Urine Negative (Negative); Protein Urine Negative (Negative); Specific Gravity Urine 1.045 (1.000-1.030); Urobilinogen Urine Negative (Negative)
[2024-01-30] MEDS: dexAMETHasone**PF** 10 MG/ML VIAL IV ONE (23:19)
[2024-01-30 23:59] LABS: Magnesium 1.9 mg/dl (1.7-2.4)
--- NOTE | 2024-01-31 00:01 | CT Scan Report ---
Exam(s): CT C SPINE EXAM: CT Cervical Spine Without Intravenous Contrast CLINICAL HISTORY: Reason for exam: fall. TECHNIQUE: Axial computed tomography images of the cervical spine without intravenous contrast. CTDI is 23.86 mGy and DLP is 557.96 mGy-cm. Automated exposure control was utilized for the study. A dose lowering technique was utilized adhering to the principles of ALARA. COMPARISON: No relevant prior studies available. FINDINGS: The vertebral body heights are maintained. The craniocervical junction is intact. The atlanto-dens interval is maintained. The dens is intact. There is no spondylolisthesis. Multilevel cervical spondylosis and degenerative disc disease. Straightening of the cervical lordosis. Scarring at the RIGHT lung apex. IMPRESSION: No acute fracture or subluxation of the cervical spine. Electronically signed by: Josse Deluna MD 01/31/24 00:00 AM
--- NOTE | 2024-01-31 00:02 | CT Scan Report ---
Exam(s): CT HEAD Without Contrast EXAM: CT Head Without Intravenous Contrast CLINICAL HISTORY: Reason for exam: fall, vomit. TECHNIQUE: Axial computed tomography images of the head/brain without intravenous contrast. CTDI is 36.05 mGy and DLP is 624.41 mGy-cm. Automated exposure control was utilized for the study. A dose lowering technique was utilized adhering to the principles of ALARA. COMPARISON: Head CT February 20, 2023. FINDINGS: No acute intracranial hemorrhage. No midline shift or mass effect. The territorial ferguson-white matter differentiation is maintained throughout. Age-related cerebral volume loss. Periventricular and subcortical white matter hypoattenuation, consistent with chronic microangiopathy. The visualized orbits appear grossly unremarkable. LEFT cochlear implant. IMPRESSION: No acute intracranial hemorrhage, midline shift, or mass effect. Electronically signed by: Josse Deluna MD 01/31/24 00:01 AM
--- NOTE | 2024-01-31 00:04 | CT Scan Report ---
Exam(s): CT CHEST With Contrast IV Amt: 91 ml optiray 320 EXAM: CT Chest With Intravenous Contrast CLINICAL HISTORY: Reason for exam: fall. TECHNIQUE: Axial computed tomography images of the chest with intravenous contrast. CTDI is 30.26 mGy and DLP is 1037.52 mGy-cm. Automated exposure control was utilized for the study. A dose lowering technique was utilized adhering to the principles of ALARA. CONTRAST: Patient received 91 ml optiray 320 of IV contrast COMPARISON: No relevant prior studies available. FINDINGS: Lungs: Mild small airway mucoid impaction of the RIGHT lung base. No mass. No consolidation. Pleural space: Unremarkable. No pneumothorax. No significant effusion. Heart: Unremarkable. No cardiomegaly. No significant pericardial effusion. No significant coronary artery calcifications. Bones/joints: Degenerative changes of the spine. No acute fracture. No dislocation. Soft tissues: Unremarkable. Vasculature: Atherosclerotic changes of the aorta. No thoracic aortic aneurysm. Lymph nodes: Unremarkable. No enlarged lymph nodes. IMPRESSION: No acute findings in the chest. Electronically signed by: Josse Deluna MD 01/31/24 00:02 AM
--- NOTE | 2024-01-31 00:12 | History & Physical Report ---
Date of Service January 31, 2024 Assessment & Plan (1) Hypotension: Plan: History orthostatic hypotension on midodrine BP improved after initial intervention at the ER Asymptomatic COVID-19 illness COPD, not in acute exacerbation hyperlipidemia, on statin Rx tonsillar cancer status post chemoradiation/neck dissection hx tonsillar cancer status post chemoradiation/neck dissection, History aspiration risk status post PEG tube placement hypothyroidism, euthyroid as of recent outpatient TSH Hyperglycemia rule out DM Past tobacco abuse OBS Medical telemetry IVF, continue home midodrine Check hemoglobin A1c PT OT eval DVT prophylaxis SCDs re: recent head trauma Full code Patient's requesting updates providers. Ms. Letty Canseco, contact #[phone]. Text document was generated using [employer] voice recognition software. It may contain grammatical or spelling errors. Kindly contact undersigned for clarification of any documentation item in question. History of Present Illness Chief Complaint: Fall, head trauma as per records Primary Care Provider: Sanjiv Hart MD History obtained from patient, family, and records. Limited history from patient secondary to marked hearing impairment. Medical history is significant for hyperlipidemia, hx orthostatic hypotension secondary to autonomic neuropathy on midodrine, tonsillar cancer status post chemoradiation/neck dissection, COPD, known aspiration risk sp PEG tube placement, GERD, gastroparesis, hypothyroidism, anxiety/mood disorder, past tobacco abuse Last confinement July 2023 for RSV bronchopneumonia. Patient stumbled at bathroom at home last night resulting in head trauma. Achy headache without LOC. No chest pain, no SOB. No cough symptoms. Appetite okay as per . Urinary incontinence from not being able to get up. SBP 70 to 80s upon arrival to the ER. SBP currently 100s after IVF and Decadron administration. MEDICAL HISTORY: As above. SURGERIES: He has had neck/reconstruction surgery, lymph node dissection, knee surgery, dental surgery, cochlear implant FAMILY HISTORY: Diabetes, heart disease, COPD PERSONAL AND SOCIAL HISTORY: Past tobacco abuse. 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 Allergies Allergy/AdvReac Type Severity Reaction Status Date / Time levofloxacin Allergy Intermediate rash all Verified 01/31/24 00:48 over body sulfamethoxazole Allergy Intermediate ITCHING/HIVES Verified 01/31/24 00:48 WITH BACTRIM trimethoprim Allergy Intermediate ITCHING/HIVES Verified 01/31/24 00:48 WITH BACTRIM Nitrate Analogues AdvReac Severe DROP IN Verified 01/31/24 00:48 BP/UNCONSCIOUSNESS lisinopril AdvReac Intermediate ELEVATES Verified 01/31/24 00:48 B/P sertraline AdvReac Intermediate NOSE BLEEDS Verified 01/31/24 00:48 terazosin AdvReac Intermediate PRIAPRISM Verified 01/31/24 00:48 PER [facility] Home Medications Medication Instructions Recorded Confirmed Type citalopram 20 mg tablet 20 mg feeding tube QAM 05/07/18 01/31/24 History food supplemt, lactose-reduced 2 can feeding tube TID 05/07/18 01/31/24 History (Nutritional Drink oral liquid) latanoprost 0.005 % eye drops 1 drp OPB HS 01/30/19 01/31/24 History acetaminophen 500 mg tablet 1,000 mg feeding tube Q6H PRN Pain 03/06/21 01/31/24 History (Tylenol Extra Strength) levothyroxine 88 mcg tablet 88 mcg feeding tube QAM 04/06/21 01/31/24 History (Euthyrox) midodrine 5 mg tablet 10 mg feeding tube TID PRN 05/13/21 01/31/24 History Hypotension atorvastatin 40 mg tablet 40 mg feeding tube QAM 06/02/21 01/31/24 History albuterol sulfate 1.25 mg/3 mL 1.25 mg inhalation Q4H PRN 06/03/23 01/31/24 History solution for nebulization Shortness Of Breath Or Wheezing clonidine HCl 0.1 mg tablet 0.1 mg feeding tube TID PRN SBP 01/31/24 01/31/24 History 180 OR> Past Med/Surg History Problem List COVID-19 (Acute) Head injury, closed, with brief LOC (Acute) Respiratory syncytial virus (RSV) infection (Acute) Acute respiratory failure with hypoxia (Acute) Bronchopneumonia Encounter for pre-operative examination Aspiration pneumonia (Acute) H/O malignant neoplasm of tonsil (Acute) Lactic acidosis Pneumonia (Acute) Hypoxemia (Acute) Sepsis (Acute) Lab test negative for COVID-19 virus (Acute) Acute hypokalemia (Acute) DVT prophylaxis Protein calorie malnutrition Hypokalemia Chronic bronchitis Ex-smoker Hypoxia (Acute) Influenza A (Acute) COVID-19 (Acute) Rigors (Acute) Confusion (Acute) Fever (Acute) SIRS (systemic inflammatory response syndrome) Blood pressure instability (Acute) [facility] Cardiology manages; currently using midodrine, and nitro PRN hypo/hypertension; per , cardiac workup wnl aside from BP changes Aspiration pneumonia hx - CAN NOT TAKE FOOD/LIQUIDS ORALLY Uses feeding tube Hypothyroidism Glaucoma Hypertension (Acute) Benign prostatic hyperplasia (Unknown) Chronic back pain Depression Gastroparesis COPD (chronic obstructive pulmonary disease) with emphysema H/O esophagogastroduodenoscopy (Unknown) WITH PLACEMENT PEG TUBE S/P arthroscopic knee surgery (Unknown) RT S/P colonoscopy (Unknown) Medical History Abnormal CT scan, neck 07/2022 [facility] - "7 mm lytic lesion within the C3 vertebral body." Per , outpt imaging since being d/c from hospital has r/o mets. History of recent hospitalization 07/2022 [facility] - pneumonia Slow to wake up after anesthesia Speech difficult to understand Hearing loss History of COVID-19 05/2021 treated for pneumonia at [facility]- 06/13/22 admitted to [facility] 06/2022with covid pneumonia, flu, and RSV 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 Degenerative disc disease Osteoarthritis GERD (gastroesophageal reflux disease) Anxiety Asthma rare use of PRN inh Orthostatic hypotension Tonsil carcinoma (Unknown) RADIATION AND CHEMO Surgical History History of radical neck dissection S/P percutaneous endoscopic gastrostomy (PEG) tube placement History of neck surgery LUMPECTOMY History of tooth extraction Family History Brother Family history of diabetes mellitus Social History Smoking Status: Former smoker Tobacco Type: Cigarettes Second Hand Exposure: No; Do You Dip or Chew Tobacco: No; Hx Alcohol Use: Yes Alcohol type: beer Hx Substance Use: No Preferred Language: Tajik 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 Ability: Impaired 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 Ability 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 Required: No Beliefs That Will Affect Care: None marital status: Current Living Situation: Spouse Current Living Situation Comment: Personal Home Other Information That Helps Us Care for You: No Feels Safe at Home: Yes Safety Concerns: Feels Safe At This Time Assistive Devices: Glasses Assistive Devices Comment: Readers, Cochlear Implant Review of Systems Review of Systems: Could not be reliably obtained secondary to hearing impairment Physical Exam Physical Exam: GENERAL: Comfortable, hard of hearing, pleasant, no respiratory distress SKIN: Normal color, warm HEENT: [place] palpebral conjunctivae, no ptosis, chronic facial asymmetry, dry buccal mucosa NECK : Supple, no tenderness CHEST : Decreased breath sounds, no tenderness HEART : RRR, no obvious murmurs ABDOMEN: distention, PEG tube in place, nontender EXTREMITIES : no LE swelling, no LE tenderness, no other conspicuous deformities noted NEUROLOGIC : Coherent, no facial asymmetry, hard of hearing, gait and stance not assessed Results & Data Results & Data Vital Signs (Past 12 Hours) Vital Signs Temp Pulse Pulse Resp BP BP Pulse Ox 01/30/24 23:30 64 18 100/55 L 94 01/30/24 23:21 63 17 90/45 L 95 01/30/24 23:15 60 17 76/47 L 94 01/30/24 23:06 68 17 89/55 L 94 01/30/24 22:41 83 17 146/85 H 99 01/30/24 21:51 81 15 109/66 99 01/30/24 20:57 100 01/30/24 20:46 87 01/30/24 20:27 37.4 C 87 19 128/68 100 01/30/24 20:27 87 26 H 128/68 100 O2 Del Method 01/30/24 23:30 Room Air 01/30/24 23:21 Room Air 01/30/24 23:15 Room Air 01/30/24 23:06 Room Air 01/30/24 22:41 Room Air 01/30/24 21:51 Room Air 01/30/24 20:57 Room Air 01/30/24 20:46 01/30/24 20:27 Room Air 01/30/24 20:27 Room Air Laboratory Results Laboratory Results WBC 7.95 K/ul (4.8-10.8) 01/30/24 20:37 RBC 4.74 M/uL (4.70-6.10) 01/30/24 20:37 Hgb 15.5 g/dl (14.0-18.0) 01/30/24 20:37 POC Hgb 15.6 g/dl (14.0-18.0) 01/30/24 21:06 Hct 44.9 % (42.0-52.0) 01/30/24 20:37 POC Hct 46 % (42-52) 01/30/24 21:06 MCV 94.7 fL (80.0-100.0) 01/30/24 20:37 MCH 32.7 pg (25.0-34.0) 01/30/24 20:37 MCHC 34.5 g/dL (32.0-36.0) 01/30/24 20: RDW Std Deviation 46.2 fL (36.4-46.3) 01/30/24 20: RDW Coeff of Judy 13.2 % (11.5-14.5) 01/30/24 20:37 Plt Count 195 K/uL (130-400) 01/30/24 20:37 MPV 11.2 fL (9.4-12.4) 01/30/24 20:37 Immature Gran % (Auto) 0.4 % 01/30/24 20:37 Neut % (Auto) 83.6 % 01/30/24 20:37 Lymph % (Auto) 5.7 % 01/30/24 20:37 [place] % (Auto) 8.7 % 01/30/24 20:37 Eos % (Auto) 1.1 % 01/30/24 20:37 Baso % (Auto) 0.5 % 01/30/24 20:37 Neut # (Auto) 6.65 K/uL (1.40-6.50) H 01/30/24 20:37 Lymph # (Auto) 0.45 K/uL (1.20-3.40) L 01/30/24 20:37 [place] # (Auto) 0.69 K/uL (0.11-0.59) H 01/30/24 20:37 Eos # (Auto) 0.09 K/uL (0.00-0.50) 01/30/24 20:37 Baso # (Auto) 0.04 K/uL (0.00-0.20) 01/30/24 20:37 Immature Gran # (Auto) 0.03 K/uL (0.01-0.20) 01/30/24 20:37 PT 11.7 Seconds (9.0-12.0) 01/30/24 20:37 INR 1.1 (0.9-1.1) 01/30/24 20:37 POC Sodium 137 mmol/L (135-144) 01/30/24 21:06 Sodium 136 mmol/L (136-145) 01/30/24 20:37 POC Potassium 3.4 mmol/L (3.3-5.0) 01/30/24 21:06 Potassium 3.5 mmol/L (3.5-5.1) 01/30/24 20:37 POC Chloride 99 mmol/L (101-112) L 01/30/24 21:06 Chloride 99 mmol/L (98-107) 01/30/24 20:37 Carbon Dioxide 26 mmol/L (21-32) 01/30/24 20:37 POC Total CO2 25 mmol/L (24-31) 01/30/24 21:06 Anion Gap 11 (3-11) 01/30/24 20:37 POC Anion Gap 17.0 mmol/L (16-25) 01/30/24 21:06 POC BUN 7 mg/dl (7-18) 01/30/24 21:06 BUN 8 mg/dl (6-23) 01/30/24 20:37 Creatinine 1.19 mg/dl (0.6-1.4) 01/30/24 20:37 POC Creatinine 1.1 mg/dl (0.6-1.3) 01/30/24 21:06 Est Cr Clr Drug Dosing 56.2 ml/min 01/30/24 20:37 Est GFR ( Amer) 68.4 ml/min 01/30/24 20:37 Est GFR (Non-Af Amer) 59.0 ml/min 01/30/24 20:37 BUN/Creatinine Ratio 6.7 (10-20) L 01/30/24 20:37 Glucose 145 mg/dl (70-99(Fasting)) H 01/30/24 20:37 POC Glucose (other) 142 mg/dl (70-99) H 01/30/24 21:06 Lactate 1.4 mmol/L (0.4-2.0) 01/30/24 22:46 Calcium 9.7 mg/dl (8.6-10.3) 01/30/24 20:37 POC Ioniz Calcium [place] 1.10 mmol/l (1.12-1.32) L 01/30/24 21:06 Magnesium 1.9 mg/dl (1.7-2.4) 01/30/24 20:37 Total Bilirubin 1.4 mg/dl (0.2-1.0) H 01/30/24 20:37 AST 46 U/L (13-39) H 01/30/24 20:37 ALT 43 U/L (7-52) 01/30/24 20:37 Alkaline Phosphatase 107 U/L (34-104) H 01/30/24 20:37 Total Creatine Kinase 39 U/L (30-223) 01/30/24 20:37 Troponin I High Sens 5.7 pg/ml (0-20) 01/30/24 20:37 Total Protein 8.0 gm/dl (6.0-8.3) 01/30/24 20:37 Albumin 4.3 gm/dl (3.4-5.0) 01/30/24 20:37 Globulin 3.7 gm/dl (2.5-4.0) 01/30/24 20:37 Albumin/Globulin Ratio 1.2 (0.9-2) 01/30/24 20:37 Procalcitonin 0.02 ng/ml (0-0.5) 01/30/24 20:37 Urine Color Yellow 01/30/24 22:44 Urine Appearance Clear (Clear) 01/30/24 22:44 Urine pH 8.0 (4.5-7.5) H 01/30/24 22:44 Ur Specific [place] 1.045 (1.000-1.030) H 01/30/24 22:44 Urine Protein Negative (Negative) 01/30/24 22:44 Urine Glucose (UA) Negative (Negative) 01/30/24 22:44 Urine Ketones Negative (Negative) 01/30/24 22:44 Urine Blood Negative (Negative) 01/30/24 22:44 Urine Nitrite Negative (Negative) 01/30/24 22:44 Urine Bilirubin Negative (Negative) 01/30/24 22:44 Urine Urobilinogen Negative (Negative) 01/30/24 22:44 Ur Leukocyte Esterase Negative (Negative) 01/30/24 22:44 Adenovirus (PCR) Not Detected (NotDetected) 01/30/24 21:49 B. pertussis DNA (PCR) Not Detected (NotDetected) 01/30/24 21:49 B.parapertussis DNA PCR Not Detected (NotDetected) 01/30/24 21:49 C. pneumoniae DNA (PCR) Not Detected (NotDetected) 01/30/24 21:49 Coronavirus OC43 (PCR) Not Detected (NotDetected) 01/30/24 21:49 Coronavirus HKU1 (PCR) Not Detected (NotDetected) 01/30/24 21:49 Coronavirus 229E (PCR) Not Detected (NotDetected) 01/30/24 21:49 SARS-CoV-2 (PCR) DETECTED (NotDetected) A 01/30/24 21:49 Coronavirus NL63 (PCR) Not Detected (NotDetected) 01/30/24 21:49 Human Metapneumovir PCR Not Detected (NotDetected) 01/30/24 21:49 Influenza Type A (PCR) Not Detected (NotDetected) 01/30/24 21:49 Influenza Type B (PCR) Not Detected (NotDetected) 01/30/24 21:49 M. pneumoniae (PCR) Not Detected (NotDetected) 01/30/24 21:49 Parainfluenza 1 (PCR) Not Detected (NotDetected) 01/30/24 21:49 Parainfluenza 2 (PCR) Not Detected (NotDetected) 01/30/24 21:49 Parainfluenza 3 (PCR) Not Detected (NotDetected) 01/30/24 21:49 Parainfluenza 4 (PCR) Not Detected (NotDetected) 01/30/24 21:49 RSV (PCR) Not Detected (NotDetected) 01/30/24 21:49 Entero/Rhino (PCR) Not Detected (NotDetected) 01/30/24 21:[address] 01/30/24 20:54 Exam(s): CT C SPINE EXAM: CT Cervical Spine Without Intravenous Contrast CLINICAL HISTORY: Reason for exam: fall. TECHNIQUE: Axial computed tomography images of the cervical spine without intravenous contrast. CTDI is 23.86 mGy and DLP is 557.96 mGy-cm. Automated exposure control was utilized for the study. A dose lowering technique was utilized adhering to the principles of ALARA. COMPARISON: No relevant prior studies available. FINDINGS: The vertebral body heights are maintained. The craniocervical junction is intact. The atlanto-dens interval is maintained. The dens is intact. There is no spondylolisthesis. Multilevel cervical spondylosis and degenerative disc disease. Straightening of the cervical lordosis. Scarring at the RIGHT lung apex. IMPRESSION: No acute fracture or subluxation of the cervical spine. Electronically signed by: Josse Deluna MD 01/31/24 00:[address] 01/30/24 20:54 Exam(s): CT CHEST With Contrast IV Amt: 91 ml optiray 320 EXAM: CT Chest With Intravenous Contrast CLINICAL HISTORY: Reason for exam: fall. TECHNIQUE: Axial computed tomography images of the chest with intravenous contrast. CTDI is 30.26 mGy and DLP is 1037.52 mGy-cm. Automated exposure control was utilized for the study. A dose lowering technique was utilized adhering to the principles of ALARA. CONTRAST: Patient received 91 ml optiray 320 of IV contrast COMPARISON: No relevant prior studies available. FINDINGS: Lungs: Mild small airway mucoid impaction of the RIGHT lung base. No mass. No consolidation. Pleural space: Unremarkable. No pneumothorax. No significant effusion. Heart: Unremarkable. No cardiomegaly. No significant pericardial effusion. No significant coronary artery calcifications. Bones/joints: Degenerative changes of the spine. No acute fracture. No dislocation. Soft tissues: Unremarkable. Vasculature: Atherosclerotic changes of the aorta. No thoracic aortic aneurysm. Lymph nodes: Unremarkable. No enlarged lymph nodes. IMPRESSION: No acute findings in the chest. Electronically signed by: Josse Deluna MD 01/31/24 00:[address] 01/30/24 20:54 Exam(s): CT HEAD Without Contrast EXAM: CT Head Without Intravenous Contrast CLINICAL HISTORY: Reason for exam: fall, vomit. TECHNIQUE: Axial computed tomography images of the head/brain without intravenous contrast. CTDI is 36.05 mGy and DLP is 624.41 mGy-cm. Automated exposure control was utilized for the study. A dose lowering technique was utilized adhering to the principles of ALARA. COMPARISON: Head CT February 20, 2023. FINDINGS: No acute intracranial hemorrhage. No midline shift or mass effect. The territorial ferguson-white matter differentiation is maintained throughout. Age-related cerebral volume loss. Periventricular and subcortical white matter hypoattenuation, consistent with chronic microangiopathy. The visualized orbits appear grossly unremarkable. LEFT cochlear implant. IMPRESSION: No acute intracranial hemorrhage, midline shift, or mass effect. Electronically signed by: Josse Deluna MD 01/31/24 00:01 AM Diagnostic Findings EKG as per my interpretation : Rate 85, NSR, LAD, LAFB, incomplete RBBB, no ischemia
[2024-01-31] MEDS ORDERED: PROMETHAZINE HCL 6.25 MG in SODIUM CHLORIDE 0.9% 50 ML IV PRN (00:15)
--- NOTE | 2024-01-31 00:20 | CT Scan Report ---
Exam(s): CT ABDOMEN + PELVIS With Contrast IV Amt: 91 ml optiray 320 EXAM: CT Abdomen and Pelvis With Intravenous Contrast CLINICAL HISTORY: Reason for exam: fall, vomiting, chills. TECHNIQUE: Axial computed tomography images of the abdomen and pelvis with intravenous contrast. CTDI is 31.46 mGy and DLP is 1739.73 mGy-cm. Automated exposure control was utilized for the study. A dose lowering technique was utilized adhering to the principles of ALARA. CONTRAST: Patient received 91 ml optiray 320 of IV contrast COMPARISON: No relevant prior studies available. FINDINGS: Lung bases: Unremarkable. No mass. No consolidation. ABDOMEN: Liver: Unremarkable. No mass. Gallbladder and bile ducts: Unremarkable. No calcified stones. No ductal dilation. Pancreas: Unremarkable. No mass. No ductal dilation. Spleen: Unremarkable. No splenomegaly. Adrenals: Unremarkable. No mass. Kidneys and ureters: Unremarkable. No solid mass. No hydronephrosis. Stomach and bowel: Unremarkable. No obstruction. No mucosal thickening. PELVIS: Appendix: No findings to suggest acute appendicitis. Bladder: Unremarkable. No mass. Reproductive: Unremarkable as visualized. ABDOMEN and PELVIS: Intraperitoneal space: Unremarkable. No free air. No significant fluid collection. Bones/joints: Degenerative changes of the spine. No acute fracture. No dislocation. Soft tissues: Unremarkable. Vasculature: Atherosclerotic changes of the aorta. No abdominal aortic aneurysm. Lymph nodes: Unremarkable. No enlarged lymph nodes. Tubes, lines and devices: Feeding tube terminates in the stomach. IMPRESSION: No acute findings in the abdomen or pelvis. Electronically signed by: Josse Deluna MD 01/31/24 00:19 AM
[2024-01-31] MEDS: MIDODRINE HCL 10 MG TAB PO STA (01:16)
[2024-01-31] MEDS: LACTATED RINGER'S 1,000 ML IV ONE (02:06)
[2024-01-31] MEDS: ACETAMINOPHEN 1,000 MG/100 ML VIAL IV PRN (02:08)
[2024-01-31] MEDS ORDERED: ACETAMINOPHEN SUSP 325 MG/10.15 ML UDC PEG PRN (02:17)
[2024-01-31] MEDS: LEVOTHYROXINE SODIUM 88 MCG TABLET PEG SCH (05:36)
[2024-01-31] MEDS: MIDODRINE HCL 10 MG TAB PO SCH (07:14)
[2024-01-31 07:15] LABS: Hematocrit (blood only) 39.5 % (42.0-52.0); Hemoglobin 13.6 g/dl (14.0-18.0); Mean Corpuscular Hemoglobin 32.4 pg (25.0-34.0); Mean Corpuscular Hgb Conc 34.4 g/dL (32.0-36.0); Mean Platelet Volume 11.6 fL (9.4-12.4); Platelet Count 172 K/uL (130-400); RDW Coefficient of Variation 13.1 % (11.5-14.5); RDW Standard Deviation 44.6 fL (36.4-46.3); White Blood Count 6.81 K/ul (4.8-10.8)
[2024-01-31 07:30] LABS: BUN Creatinine Ratio 9.7 (10-20); Calcium 8.7 mg/dl (8.6-10.3); Est GFR (African American) 81.4 ml/min; Est GFR (Non-African American) 70.2 ml/min; Potassium 3.7 mmol/L (3.5-5.1)
[2024-01-31 07:30] LABS: Estimated Average Glucose 108 mg/dl; Hemoglobin A1C 5.4 % (4.5-5.6)
[2024-01-31 07:35] LABS: Basophils # (auto) 0.01 K/uL (0.00-0.20); Basophils % (auto) 0.1 %; Immature Granulocytes # (auto) 0.01 K/uL (0.01-0.20); Immature Granulocytes % (auto) 0.1 %; Lymphocytes # (auto) 0.34 K/uL (1.20-3.40); Monocytes # (auto) 0.13 K/uL (0.11-0.59); Monocytes % (auto) 1.9 %; Neutrophils # (auto) 6.32 K/uL (1.40-6.50); Neutrophils % (auto) 92.9 %
[2024-01-31] MEDS: ATORVASTATIN 40 MG TAB PEG SCH (08:02)
[2024-01-31] MEDS: CITALOPRAM 20 MG TAB PEG SCH (08:02)
[2024-01-31] MEDS ORDERED: FOOD SUPPLEMT LACTOSE REDUCED Feeding Tube SCH (09:00)
[2024-01-31] MEDS ORDERED: PATIENT'S OWN ENTERAL FEEDING PEG SCH (09:45)
--- NOTE | 2024-01-31 10:45 | Discharge Summary ---
Discharge Summary Date of Service January 31, 2024 Principal Dx & Hospital Course #1 = Principal Diagnosis (1) Chronic orthostatic hypotension: (2) Head injury, closed, with brief LOC: (3) COVID-19: Plan Patient presented to the emergency room after having a fall at home. Patient has known chronic orthostasis and has been on as needed medications for hypertension and hypotension. In the emergency room initially was quite hypot ensive. He also tested positive for COVID-19 but appeared to be asymptomatic. The patient was observed in the hospital. His blood pressure is improved. He was not hypoxic and otherwise had no symptoms attributable to his COVID-19. In discussion with his patient has been dealing with orthostasis for a long period of time. It appears as though he is only on as needed medications. He takes clonidine when his blood pressure is extremely elevated and then takes midodrine when it is extremely low. Discussed with them that he really probably needs to be on scheduled medicines 1 medicine to prevent his blood pressure from going really high and another medicine to prevent his blood pressure from going really low and that he takes them regularly. We also discussed about him wearing ANGELICA stockings and staying well-hydrated. We will place the patient on hydralazine 3 times daily scheduled with hold parameters should his blood pressure be less than 140. Also put him on scheduled midodrine 3 times daily. Explained to the that try and keep him within a very wide range of blood pressures with any thing being any systolic blood pressure between 110 and 190 being acceptable. He will continue his usual tube feeds. He will follow-up with his outpatient providers and be discharged home. Patient does not need interventions for his COVID-19 infection he is essentially asymptomatic at this time. Notes For Next Care Provider Medication Changes From Visit Clonidine discontinued Hydralazine scheduled Midodrine scheduled Admission HPI Per Admitting Provider History obtained from patient, family, and records. Limited history from patient secondary to marked hearing impairment. Medical history is significant for hyperlipidemia, hx orthostatic hypotension secondary to autonomic neuropathy on midodrine, tonsillar cancer status post chemoradiation/neck dissection, COPD, known aspiration risk sp PEG tube placement, GERD, gastroparesis, hypothyroidism, anxiety/mood disorder, past tobacco abuse Last confinement July 2023 for RSV bronchopneumonia. Patient stumbled at bathroom at home last night resulting in head trauma. Achy headache without LOC. No chest pain, no SOB. No cough symptoms. Appetite okay as per . Urinary incontinence from not being able to get up. SBP 70 to 80s upon arrival to the ER. SBP currently 100s after IVF and Decadron administration. MEDICAL HISTORY: As above. SURGERIES: He has had neck/reconstruction surgery, lymph node dissection, knee surgery, dental surgery, cochlear implant FAMILY HISTORY: Diabetes, heart disease, COPD PERSONAL AND SOCIAL HISTORY: Past tobacco abuse. 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 Lungs: Clear to auscultation, decreased, no wheezes rales or rhonchi CV: S1-S2, regular Abdomen: Soft, nontender, nondistended, PEG tube in place, clean and dry Extremities: No significant edema Neuro: No focal deficits Psych: Cooperative, normal mood Updated Medication List Medication Instructions Recorded Confirmed Type citalopram 20 mg tablet 20 mg feeding tube QAM 05/07/18 01/31/24 History food supplemt, lactose-reduced 2 can feeding tube TID 05/07/18 01/31/24 History (Nutritional Drink oral liquid) latanoprost 0.005 % eye drops 1 drp OPB HS 01/30/19 01/31/24 History acetaminophen 500 mg tablet 1,000 mg feeding tube Q6H PRN Pain 03/06/21 01/31/24 History (Tylenol Extra Strength) levothyroxine 88 mcg tablet 88 mcg feeding tube QAM 04/06/21 01/31/24 History (Euthyrox) atorvastatin 40 mg tablet 40 mg feeding tube QAM 06/02/21 01/31/24 History albuterol sulfate 1.25 mg/3 mL 1.25 mg inhalation Q4H PRN 06/03/23 01/31/24 History solution for nebulization Shortness Of Breath Or Wheezing hydralazine 25 mg tablet 25 mg PO TID #90 tabs 01/31/24 Rx midodrine 10 mg tablet 10 mg PO TIDM 30 days #30 tabs 01/31/24 Rx Hospital Stay Data Consultations 01/30/24 23:22 ED Decision to Admit Stat Diagnostic Imagining Performed 01/30/24 20:54 CT abd pelvis IV con only Stat CT cervical spine wo con Stat CT chest diagnostic w con Stat CT head/brain wo con Stat Reviewed imaging, laboratory and diagnostic studies. Pertinent findings as below. Hemoglobin 13.6 Electrolytes within normal range Creatinine 1.[address] no pneumonia and Head CT no acute findings Pending Results Patient Have Any Pending Studies at Discharge: No Discharge Instructions Given to Patient (Per Discharging Provider) Recommend wearing ANGELICA stockings You must take your time when changing positions especially when going from lying down to standing up. When lying down and sit up at the edge of the chair, couch or bed for a couple minutes before standing. Upon standing stay at the edge of the chair or bed or couch and make sure you are not lightheaded or dizzy before you attempt to start to walk away. Total Time Total Time Spent Total Time Spent (In Minutes): 39
--- NOTE | 2024-01-31 12:44 | Electrocardiogram Report ---
Test Reason : Blood Pressure : / mmHG Vent. Rate : 087 BPM Atrial Rate : 087 BPM P-R Int : 150 ms QRS Dur : 076 ms QT Int : 408 ms P-R-T Axes : 053 -60 053 degrees QTc Int : 490 ms Normal sinus rhythm Left axis deviation Prolonged QT Abnormal ECG When compared with ECG of 12-DEC-2023 00:42, QT has lengthened Confirmed by Soto Moore ([id number]) on 01/31/2024 12:44:12 PM Referred By: REFERRED SELF Confirmed By:Soto Moore
[2024-01-31] MEDS ORDERED: LATANOPROST 0.005% OP SOLN 2.5 ML BTL OPB SCH (21:00)
== END 2024-01-31 11:04 | disposition home or self-care (01) ==
LOC: 2N 20:18 → ED 20:18 → 2N 01-31 01:06

== ENCOUNTER 2024-02-01 14:28 | Inpatient (IN) ==
[2024-02-01] MEDS: SODIUM CHLORIDE 0.9% 1,000 ML IV SCH ×2 (15:17→22:10)
--- NOTE | 2024-02-01 15:25 | Emergency Department Note ---
Impression & Plan Hypotension, Cough, Elevated lactic acid level, COVID-19, Hypokalemia ED Provider Note NAME: DEMETRIO WELSH AGE: 78 SEX: M : 1945 ARRIVES VIA: Walk-In INFORMANT: [Patient][] ED PROVIDER(S): [Landen Castanon MD] CHIEF COMPLAINT: Cough, recent discharge, might have COVID HISTORY OF PRESENT ILLNESS: The patient is a 78-year-old male who states that he was in the hospital recently for a fall. He was watched overnight and discharged yesterday. During his hospitalization, he was told that he had COVID-19, he had no symptoms though. The patient has been coughing more since discharge from the hospital, he does have COPD and he is concerned he may have pneumonia or bronchitis. He is here with his , they are concerned about his lungs. He did try to get to his doctor's office but was unable, he was eventually referred to the ER. As per the family, there has been no fever. No vomiting. PMHx/PSHx/Social Hx: See Below PHYSICAL EXAM: GENERAL: Patient is in no acute distress. Thin and frail. HEENT: No acute trauma, normocephalic atraumatic, mucous membranes moist, no nasal congestion. NECK: No stridor, no adenopathy, no meningismus, trachea is midline. LUNGS: Clear to auscultation bilaterally when listening anterior, no wheeze, no rhonchi, breath sounds equal. Wet cough noted. HEART: Without murmurs gallops or rubs, regular rate and rhythm. ABDOMEN: Soft, nontender, no peritonitis. EXTREMITIES: No cyanosis, full range of motion of all the joints without pain or difficulty. NEUROLOGIC: Awake and alert, no acute motor or sensory deficits, no focal weakness. SKIN: No jaundice, no diaphoresis. DIFFERENTIAL DIAGNOSIS: Bronchitis or pneumonia, COVID-19, anemia, electrolyte imbalance, DC, sepsis, among others. EMERGENCY DEPARTMENT PROCEDURES: MEDICAL DECISION MAKING: There is no leukocytosis. A mild anemia was seen. There was a normal platelet count. No coagulopathy. Potassium was low at 2.8. No renal failure. The patient did have a lactic acidosis, the value did improve after some IV hydration. There was no concerning liver enzyme elevation. ECG showed a normal sinus rhythm, no ischemia. Cardiac enzyme testing x 1 is not consistent with acute cardiac injury. Procalcitonin level is not elevated making serious bacterial infection less likely. Urinalysis does not show infection. COVID test was positive. Influenza and RSV test were negative. Chest x-ray did not show pneumonia or CHF. Patient presented hypotensive. He was placed in a large room. He was rapidly assessed. The patient did receive IV saline 1 L, his blood pressure improved with the saline administration. The patient was given IV potassium. He was given IV Solu-Medrol. He received IV cefepime as empiric antibiotic coverage. The patient presents hypotensive. He has a lactic acidosis. He is COVID positive. He does meet criteria for hospital stay, further workup and care. I spoke with the patient and his family. I spoke with case management. The on- call hospitalist was consulted. Prior/Outside records/notes reviewed: Discharge summary note from 01/31/2024 describing his hospitalization, care and plan moving forward. ECG per my interpretation: Indication was possible sepsis. The ECG shows a normal sinus rhythm with a rate of 60. There is some nonspecific ST change. There is no acute ST elevation, no PVCs. The QTc is 410. Continuous Cardiac Monitoring per my interpretation: An order was placed for continuous cardiac monitoring. The monitor shows a rate of 60 with normal sinus rhythm. Imaging/x-ray results per my interpretation: Chest x-ray does not show CHF or pneumonia. COPD was seen. Chronic Medical/Social conditions affecting care: Advanced age, history of COPD. Care/Management discussed with: Case management, the on-call hospitalist. Level of care consideration(s): After review of the information above and other included data: --I believe the patient requires escalation of care to admission Critical Care Note: I have personally spent 41 minutes of critical care time in the direct management of this patient. This includes bedside care, interpretation of diagnostic studies, and testing, discussion with consultants, patient, and family members, and other required patient management activities. This 41 minutes is in excess of all separately billable procedures. DISPOSITION: Admission Past Med/Surg History Problem List Hypokalemia (Acute) COVID-19 (Acute) Elevated lactic acid level (Acute) Cough (Acute) Hypotension (Acute) Acute bronchitis Chronic orthostatic hypotension COVID-19 (Acute) Head injury, closed, with brief LOC (Acute) Respiratory syncytial virus (RSV) infection (Acute) Acute respiratory failure with hypoxia (Acute) Bronchopneumonia Encounter for pre-operative examination Aspiration pneumonia (Acute) H/O malignant neoplasm of tonsil (Acute) Lactic acidosis Pneumonia (Acute) Hypoxemia (Acute) Sepsis (Acute) Lab test negative for COVID-19 virus (Acute) Acute hypokalemia (Acute) DVT prophylaxis Protein calorie malnutrition Hypokalemia Chronic bronchitis Ex-smoker Hypoxia (Acute) Influenza A (Acute) COVID-19 (Acute) Rigors (Acute) Confusion (Acute) Fever (Acute) SIRS (systemic inflammatory response syndrome) Blood pressure instability (Acute) [facility] Cardiology manages; currently using midodrine, and nitro PRN hypo/hypertension; per , cardiac workup wnl aside from BP changes Aspiration pneumonia hx - CAN NOT TAKE FOOD/LIQUIDS ORALLY Uses feeding tube Hypothyroidism Glaucoma Hypertension (Acute) Benign prostatic hyperplasia (Unknown) Chronic back pain Depression Gastroparesis COPD (chronic obstructive pulmonary disease) with emphysema H/O esophagogastroduodenoscopy (Unknown) WITH PLACEMENT PEG TUBE S/P arthroscopic knee surgery (Unknown) RT S/P colonoscopy (Unknown) Medical History Abnormal CT scan, neck 07/2022 [facility] - "7 mm lytic lesion within the C3 vertebral body." Per , outpt imaging since being d/c from hospital has r/o mets. History of recent hospitalization 07/2022 [facility] - pneumonia Slow to wake up after anesthesia Speech difficult to understand Hearing loss History of COVID-19 05/2021 treated for pneumonia at [facility]- 06/13/22 admitted to [facility] 06/2022with covid pneumonia, flu, and RSV 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 Degenerative disc disease Osteoarthritis GERD (gastroesophageal reflux disease) Anxiety Asthma rare use of PRN inh Orthostatic hypotension Tonsil carcinoma (Unknown) RADIATION AND CHEMO Surgical History History of radical neck dissection S/P percutaneous endoscopic gastrostomy (PEG) tube placement History of neck surgery LUMPECTOMY History of tooth extraction Family History Brother Family history of diabetes mellitus Social History Smoking Status: Former smoker Tobacco Type: Cigarettes Second Hand Exposure: No; Do You Dip or Chew Tobacco: No; Hx Alcohol Use: Yes Alcohol type: beer Hx Substance Use: No Preferred Language: Swedish 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 Ability: Impaired 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 Ability 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 Required: No Beliefs That Will Affect Care: None marital status: Current Living Situation: Spouse Current Living Situation Comment: Personal Home Feels Safe at Home: Yes Assistive Devices: Glasses Allergies Allergies Allergy/AdvReac Type Severity Reaction Status Date / Time levofloxacin Allergy Intermediate rash all Verified 02/01/24 18:01 over body sulfamethoxazole Allergy Intermediate ITCHING/HIVES Verified 02/01/24 18:01 WITH BACTRIM trimethoprim Allergy Intermediate ITCHING/HIVES Verified 02/01/24 18:01 WITH BACTRIM Nitrate Analogues AdvReac Severe DROP IN Verified 02/01/24 18:01 BP/UNCONSCIOUSNESS lisinopril AdvReac Intermediate ELEVATES Verified 02/01/24 18:01 B/P sertraline AdvReac Intermediate NOSE BLEEDS Verified 02/01/24 18:01 terazosin AdvReac Intermediate PRIAPRISM Verified 02/01/24 18:01 PER [facility] Meds Home Medications Medication Instructions Recorded Confirmed citalopram 20 mg tablet 20 mg feeding tube QAM 05/07/18 02/01/24 food supplemt, lactose-reduced 2 can feeding tube TID 05/07/18 02/01/24 (Nutritional Drink oral liquid) latanoprost 0.005 % eye drops 1 drp OPB HS 01/30/19 02/01/24 acetaminophen 500 mg tablet 1,000 mg feeding tube Q6H PRN Pain 03/06/21 02/01/24 (Tylenol Extra Strength) levothyroxine 88 mcg tablet 88 mcg feeding tube QAM 04/06/21 02/01/24 (Euthyrox) atorvastatin 40 mg tablet 40 mg feeding tube QAM 06/02/21 02/01/24 albuterol sulfate 1.25 mg/3 mL 1.25 mg inhalation Q4H PRN 06/03/23 02/01/24 solution for nebulization Shortness Of Breath Or Wheezing Previous Rx's Medication Instructions Recorded hydralazine 25 mg tablet 25 mg PO TID #90 tabs 01/31/24 midodrine 10 mg tablet 10 mg PO TIDM 30 days #30 tabs 01/31/24 Results & Data (ED) Vital Signs Vital Signs - 24 hr 02/01/24 14:43 02/01/24 15:01 02/01/24 15:10 Temperature 37 C Temperature Source Temporal Artery Scan Pulse Rate 59 L 65 Pulse Rate [Apical] 60 Pulse Rhythm [Apical] Regular Pulse Strength [Apical] Normal Respiratory Rate 22 18 Respiratory Effort / Characteristics Non-Labored Non-Labored Spontaneous Respiratory Depth Normal Normal Respiratory Pattern Regular Blood Pressure 82/42 L Blood Pressure [Right Arm] 134/75 Blood Pressure Mean 55 Blood Pressure Mean [Right Arm] 94 Blood Pressure Position [Right Arm] Pulse Oximetry 98 98 Oxygen Delivery Method Room Air Room Air Sepsis Recent Fever Within 48 Hours No Sepsis New/Unexplained Change in Mental Status No Sepsis Action Taken by Nursing No Action Required 02/01/24 16:10 02/01/24 17:00 02/01/24 17:00 Temperature Temperature Source Pulse Rate Pulse Rate [Apical] 65 70 70 Pulse Rhythm [Apical] Pulse Strength [Apical] Respiratory Rate Respiratory Effort / Characteristics Respiratory Depth Respiratory Pattern Blood Pressure Blood Pressure [Right Arm] 153/77 H 167/83 H 167/83 H Blood Pressure Mean Blood Pressure Mean [Right Arm] 102 111 111 Blood Pressure Position [Right Arm] Lying Pulse Oximetry 100 99 97 Oxygen Delivery Method Sepsis Recent Fever Within 48 Hours Sepsis New/Unexplained Change in Mental Status Sepsis Action Taken by Nursing 02/01/24 17:06 02/01/24 17:30 02/01/24 18:00 Temperature Temperature Source Pulse Rate 67 Pulse Rate [Apical] 67 74 Pulse Rhythm [Apical] Pulse Strength [Apical] Respiratory Rate 23 18 18 Respiratory Effort / Characteristics Non-Labored Non-Labored Respiratory Depth Respiratory Pattern Blood Pressure Blood Pressure [Right Arm] 180/99 H 185/100 H Blood Pressure Mean Blood Pressure Mean [Right Arm] 126 128 Blood Pressure Position [Right Arm] Lying Lying Pulse Oximetry 99 91 99 Oxygen Delivery Method Room Air Room Air Sepsis Recent Fever Within 48 Hours Sepsis New/Unexplained Change in Mental Status Sepsis Action Taken by Skilled Nursing Medications Current Medication List: was personally reviewed by me Laboratory Data Attestation: I reviewed the patient's lab results. 02/01/24 15:05 02/01/24 15:05 Lab Results 02/01/24 02/01/24 02/01/24 Range/Units 15:05 16:55 17:00 WBC 9.72 (4.8-10.8) K/ul RBC 4.31 L (4.70-6.10) M/uL Hgb 13.8 L (14.0-18.0) g/dl Hct 40.8 L (42.0-52.0) % MCV 94.7 (80.0-100.0) fL MCH 32.0 (25.0-34.0) pg MCHC 33.8 (32.0-36.0) g/dL RDW Std Deviation 47.3 H (36.4-46.3) fL RDW Coeff of Judy 13.5 (11.5-14.5) % Plt Count 154 (130-400) K/uL MPV 11.4 (9.4-12.4) fL Immature Gran % (Auto) 0.3 % Neut % (Auto) 86.2 % Lymph % (Auto) 6.4 % [place] % (Auto) 6.7 % Eos % (Auto) 0.1 % Baso % (Auto) 0.3 % Neut # (Auto) 8.38 H (1.40-6.50) K/uL Lymph # (Auto) 0.62 L (1.20-3.40) K/uL [place] # (Auto) 0.65 H (0.11-0.59) K/uL Eos # (Auto) 0.01 (0.00-0.50) K/uL Baso # (Auto) 0.03 (0.00-0.20) K/uL Immature Gran # (Auto) 0.03 (0.01-0.20) K/uL Platelet Estimate Normal (Normal) PT 11.5 (9.0-12.0) Seconds INR 1.1 (0.9-1.1) APTT 21 (21-31) Seconds PTT Ratio 0.8 Sodium 139 (136-145) mmol/L Potassium 2.8 L D (3.5-5.1) mmol/L Chloride 101 (98-107) mmol/L Carbon Dioxide 28 (21-32) mmol/L Anion Gap 10 (3-11) BUN 10 (6-23) mg/dl Creatinine 1.13 (0.6-1.4) mg/dl Est Cr Clr Drug Dosing Not Reportable Est GFR ( Amer) 72.8 ml/min Est GFR (Non-Af Amer) 62.8 ml/min BUN/Creatinine Ratio 8.8 L (10-20) Glucose 85 (70-99(Fasting)) mg/dl Lactate 3.7 H* 2.9 H* (0.4-2.0) mmol/L Calcium 9.1 (8.6-10.3) mg/dl Magnesium 1.8 (1.7-2.4) mg/dl Total Bilirubin 0.6 D (0.2-1.0) mg/dl Direct Bilirubin 0.1 (0-0.2) mg/dl AST 27 (13-39) U/L ALT 25 (7-52) U/L Alkaline Phosphatase 81 (34-104) U/L Troponin I High Sens 14.5 D (0-20) pg/ml Total Protein 7.3 (6.0-8.3) gm/dl Albumin 3.9 (3.4-5.0) gm/dl Procalcitonin 0.05 (0-0.5) ng/ml Urine Color Yellow Urine Appearance Clear (Clear) Urine pH 7.0 (4.5-7.5) Ur Specific [place] 1.011 (1.000-1.030) Urine Protein Negative (Negative) Urine Glucose (UA) Negative (Negative) Urine Ketones Negative (Negative) Urine Blood Negative (Negative) Urine Nitrite Negative (Negative) Urine Bilirubin Negative (Negative) Urine Urobilinogen Negative (Negative) Ur Leukocyte Esterase Negative (Negative) SARS-CoV-2 (PCR) POSITIVE (Negative) Influenza Type A (PCR) Negative (Neg) Influenza Type B (PCR) Negative (Neg) RSV (RT-PCR) Negative (Neg) Administered Medications Ipratropium [place]ibal (Ipratropium [place] Neb Soln 0.02% 0.5mg/2.5ml Vial) 0.5 mg NEB Q6R GIRISH Stop: 03/02/24 20:45 Last Admin: 02/01/24 21:54 Dose: 0.5 mg Documented By: EML Levalbuterol HCl (Levalbuterol 1.25 Mg/3 Ml Neb) 1.25 mg NEB Q6H GIRISH Stop: 03/02/24 20:45 Last Admin: 02/01/24 21:54 Dose: 1.25 mg Documented By: EML Sodium Chloride (Sodium Chlor 7% 4 Ml Neb) 4 ml NEB BIDR GIRISH Stop: 03/02/24 20:45 Last Admin: 02/01/24 21:54 Dose: 4 ml Documented By: EML Discontinued Medications Sodium Chloride (Nss) 1,000 mls @ 999 mls/hr IV .Q1H1M GIRISH Stop: 02/01/24 16:15 Last Infusion: 02/01/24 21:01 Dose: Infused Documented By: Admin: 02/01/24 15:17 Dose: 999 mls/hr Documented By: JORGE Cefepime HCl (Maxipime) 2,000 mg in 20 mls @ 5 mls/min IV NOW STA; Protocol Stop: 02/01/24 15:13 Last Admin: 02/01/24 15:53 Dose: 5 mls/min Documented By: HALEIGH Potassium Chloride (K Shree / Wtr) 10 meq in 100 mls @ 100 mls/hr IV ONE ONE Stop: 02/01/24 16:53 Last Infusion: 02/01/24 17:06 Dose: Infused Documented By: Admin: 02/01/24 16:06 Dose: 100 mls/hr Documented By: HALEIGH Potassium Chloride (K Shree / Wtr) 10 meq in 100 mls @ 100 mls/hr IV Q1H GIRISH Stop: 02/01/24 22:44 Last Admin: 02/01/24 21:21 Dose: Not Given Documented By: Admin: 02/01/24 21:20 Dose: Not Given Documented By: Admin: 02/01/24 19:07 Dose: Not Given Documented By: NOLAN Methylprednisolone (Methylprednisolone 125 Mg/2 Ml Vial) 60 mg IV NOW STA Stop: 02/01/24 17:06 Last Admin: 02/01/24 17:22 Dose: 60 mg Documented By: CISCO Potassium Chloride (Potassium Chloride 20 Meq/15 Ml Udc) 40 meq PEG NOW STA Stop: 02/01/24 18:32 Last Admin: 02/01/24 19:03 Dose: 40 meq Documented By: NOLAN Imaging Data Radiologist's Impression: Chest X-Ray 02/01/24 15:10 XR chest 1V portable CLINICAL HISTORY: Sepsis TECHNIQUE: Single frontal radiograph of the chest was obtained. Comparison: Comparison is made to chest radiograph 12/12/2023 FINDINGS: No lines and tubes are seen. The cardiomediastinal silhouette is normal. The lungs are clear. No evidence of pleural effusion or pneumothorax. IMPRESSION: No acute abnormalities and in particular no radiographic evidence of pneumonia. ACT 112: Negative or not required by law. Electronically signed by: Richi Graves M.D. 02/01/2024 3:34 PM Discharge Plan Visit Data Chief Complaint: Cough Stated Complaint: WEAK, COVID, COUGH ED Provider: Landen Castanon Discharge Problem: Hypotension, Cough, Elevated lactic acid level, COVID-19, Hypokalemia Patient Disposition: Admitted As Inpatient Condition: Fair Discharge Instructions Interventions: ED Discharge Assessment Last Done: 02/01/24 20:45 Discharge Problem: Hypotension Qualifiers: Hypotension type: unspecified hypotension type Qualified Code(s): I95.9 - Hypotension, unspecified Cough Qualifiers: Cough type: unspecified Qualified Code(s): R05.9 - Cough, unspecified
--- NOTE | 2024-02-01 15:35 | XRay Report ---
XR chest 1V portable CLINICAL HISTORY: Sepsis TECHNIQUE: Single frontal radiograph of the chest was obtained. Comparison: Comparison is made to chest radiograph 12/12/2023 FINDINGS: No lines and tubes are seen. The cardiomediastinal silhouette is normal. The lungs are clear. No evid ence of pleural effusion or pneumothorax. IMPRESSION: No acute abnormalities and in particular no radiographic evidence of pneumonia. ACT 112: Negative or not required by law. Electronically signed by: Richi Graves M.D. 02/01/2024 3:34 PM
[2024-02-01 15:52] LABS: Alanine Aminotransferase 25 U/L (7-52); Albumin Level 3.9 gm/dl (3.4-5.0); Alkaline Phosphatase 81 U/L (34-104); Anion Gap 10 (3-11); Aspartate Aminotransferase 27 U/L (13-39); BUN Creatinine Ratio 8.8 (10-20); Bilirubin Direct 0.1 mg/dl (0-0.2); Bilirubin,Total 0.6 mg/dl (0.2-1.0); Blood Urea Nitrogen 10 mg/dl (6-23); Calcium 9.1 mg/dl (8.6-10.3); Carbon Dioxide 28 mmol/L (21-32); Chloride 101 mmol/L (98-107); Est GFR (African American) 72.8 ml/min; Est GFR (Non-African American) 62.8 ml/min; Glucose 85 mg/dl (70-99(Fasting)); Magnesium 1.8 mg/dl (1.7-2.4); Potassium 2.8 mmol/L (3.5-5.1); Sodium 139 mmol/L (136-145); Total Protein 7.3 gm/dl (6.0-8.3); Troponin I High Sensitivity 14.5 pg/ml (0-20)
[2024-02-01] MEDS: CEFEPIME 2,000 MG/20 ML VIAL IV STA (15:53)
[2024-02-01 16:01] LABS: INR 1.1 (0.9-1.1); Partial Thromboplastin Ratio 0.8; Partial Thromboplastin Time 21 Seconds (21-31); Prothrombin Time 11.5 Seconds (9.0-12.0)
[2024-02-01] MEDS: POTASSIUM CHLORIDE / WTR 10 MEQ/100 ML PLCT IV ONE (16:06)
[2024-02-01 16:07] LABS: Influenza A virus by PCR Negative (Neg); Influenza B virus by PCR Negative (Neg); RSV by PCR Negative (Neg)
[2024-02-01 16:24] LABS: Basophils # (auto) 0.03 K/uL (0.00-0.20); Basophils % (auto) 0.3 %; Eosinophils # (auto) 0.01 K/uL (0.00-0.50); Eosinophils % (auto) 0.1 %; Hematocrit (blood only) 40.8 % (42.0-52.0); Hemoglobin 13.8 g/dl (14.0-18.0); Immature Granulocytes # (auto) 0.03 K/uL (0.01-0.20); Immature Granulocytes % (auto) 0.3 %; Lymphocytes # (auto) 0.62 K/uL (1.20-3.40); Lymphocytes % (auto) 6.4 %; Mean Corpuscular Hgb Conc 33.8 g/dL (32.0-36.0); Mean Corpuscular Volume 94.7 fL (80.0-100.0); Mean Platelet Volume 11.4 fL (9.4-12.4); Monocytes # (auto) 0.65 K/uL (0.11-0.59); Monocytes % (auto) 6.7 %; Neutrophils # (auto) 8.38 K/uL (1.40-6.50); Neutrophils % (auto) 86.2 %; Platelet Count 154 K/uL (130-400); Platelet Estimate Normal (Normal); RDW Coefficient of Variation 13.5 % (11.5-14.5); RDW Standard Deviation 47.3 fL (36.4-46.3); Red Blood Count 4.31 M/uL (4.70-6.10); White Blood Count 9.72 K/ul (4.8-10.8)
[2024-02-01] MEDS: methylPREDNISolone 125 MG/2 ML VIAL IV STA (17:22)
[2024-02-01 17:29] LABS: Appearance Urine Clear (Clear); Bilirubin Urine Negative (Negative); Blood Urine Negative (Negative); Color Urine Yellow; Glucose Urine UA Negative (Negative); Ketones Urine Negative (Negative); Leukocyte Esterase Urine Negative (Negative); Nitrite Urine Negative (Negative); Protein Urine Negative (Negative); Specific Gravity Urine 1.011 (1.000-1.030); Urobilinogen Urine Negative (Negative)
[2024-02-01 18:30] LABS: SARS CoV2 RNA(COVID-19) Ceph POSITIVE (Negative)
[2024-02-01] MEDS: POTASSIUM CHLORIDE 20 MEQ/15 ML UDC PEG STA (19:03)
[2024-02-01] MEDS: POTASSIUM CHLORIDE / WTR 10 MEQ/100 ML PLCT IV SCH (19:07)
--- NOTE | 2024-02-01 19:15 | History & Physical Report ---
Date of Service February 01, 2024 Assessment & Plan (1) COVID-19: (2) Acute bronchitis: (3) Chronic orthostatic hypotension: Plan: 78-year-old male with history of orthostatic hypotension, tonsillar cancer status postchemotherapy and radiation, aspiration with status post PEG tube placement, COPD, hypothyroidism, presenting with weakness, and productive cough since yesterday. Generalized weakness secondary to COVID-19 infection, acute bronchitis, mild COPD exacerbation Currently on room air CT chest from yesterday: Lungs: Mild small airway mucoid impaction of the RIGHT lung base. No mass. No consolidation. Vasculature: Atherosclerotic changes of the aorta. No thoracic aortic aneurysm. Patient has risk factors for progression of COVID-19 to severe illness including age, COPD, poor nutritional status Thus, will start remdesivir IV Monitor renal function, liver function, heart rate Spirometry, flutter valve, Mucinex Sputum culture Prednisone 40 mg p.o. daily Add doxycycline 100 mg twice daily for possible bacterial superinfection Orthostatic hypotension Usually on as needed clonidine for hypertension and midodrine for hypotension Yesterday, was discharged on scheduled hydralazine 3 times daily and midodrine 3 times daily Admitted with systolic BPs in the 80s Blood pressure elevated after IV fluids, IV Solu-Medrol given Hold midodrine for now Hold hydralazine for now, monitor blood pressure trend Hypokalemia Potassium 2.8 Given 1K rider at the ER Will order total of 80 oral potassium Magnesium level normal Monitor closely Elevated lactic acid Likely secondary to #1 Continue IV fluids Repeat lactic acid in the morning Tonsillar cancer, status post chemoradiation Aspiration risk, on PEG tube Continue nutritional shakes 3 times daily Hypothyroidism Continue levothyroxine DVT prophylaxis SCDs for now in light of elevated blood pressure Start Lovenox tomorrow once blood pressure better Full code Disposition Admit to PCU Lives with family at home History of Present Illness Chief Complaint: Weakness, productive cough since yesterday Primary Care Provider: Sanjiv Hart MD 78-year-old male with history of orthostatic hypotension, tonsillar cancer status postchemotherapy and radiation, aspiration with status post PEG tube placement, COPD, hypothyroidism, presenting with weakness, and productive cough since yesterday. Of note, the patient was discharged from [facility] yesterday after being admitted for hypotension, COVID-19 infection. He was advised to take hydralazine 3 times daily and midodrine 3 times daily. He was not hypoxic, CT chest only showed mucus in the right bronchus. He received supportive care for COVID-19 infection. Upon discharge, patient noted to be progressively weak, and was having increased cough productive of yellow sputum, with some shortness of breath. They were directed by the primary care physician to return to the ER for further evaluation. Upon arrival at the ER, patient's blood pressure was noted to be in the systolic 80s, saturating 98% on room air. Noted to be congested on exam Chest x-ray no pneumonia Potassium 2.8 He was started on cefepime, Solu-Medrol, and IV fluids. On exam, blood pressure improved to 170 systolic. Patient seen resting in bed, sleeping but easily awakened, very hard of hearing. Patient's at the bedside assisting with the exam. Feels tired overall, no active shortness of breath, still coughing. No other new symptom Allergies Allergy/AdvReac Type Severity Reaction Status Date / Time levofloxacin Allergy Intermediate rash all Verified 02/01/24 18:01 over body sulfamethoxazole Allergy Intermediate ITCHING/HIVES Verified 02/01/24 18:01 WITH BACTRIM trimethoprim Allergy Intermediate ITCHING/HIVES Verified 02/01/24 18:01 WITH BACTRIM Nitrate Analogues AdvReac Severe DROP IN Verified 02/01/24 18:01 BP/UNCONSCIOUSNESS lisinopril AdvReac Intermediate ELEVATES Verified 02/01/24 18:01 B/P sertraline AdvReac Intermediate NOSE BLEEDS Verified 02/01/24 18:01 terazosin AdvReac Intermediate PRIAPRISM Verified 02/01/24 18:01 PER [facility] Home Medications Medication Instructions Recorded Confirmed Type citalopram 20 mg tablet 20 mg feeding tube QAM 05/07/18 02/01/24 History food supplemt, lactose-reduced 2 can feeding tube TID 05/07/18 02/01/24 History (Nutritional Drink oral liquid) latanoprost 0.005 % eye drops 1 drp OPB HS 01/30/19 02/01/24 History acetaminophen 500 mg tablet 1,000 mg feeding tube Q6H PRN Pain 03/06/21 02/01/24 History (Tylenol Extra Strength) levothyroxine 88 mcg tablet 88 mcg feeding tube QAM 04/06/21 02/01/24 History (Euthyrox) atorvastatin 40 mg tablet 40 mg feeding tube QAM 06/02/21 02/01/24 History albuterol sulfate 1.25 mg/3 mL 1.25 mg inhalation Q4H PRN 06/03/23 02/01/24 History solution for nebulization Shortness Of Breath Or Wheezing hydralazine 25 mg tablet 25 mg PO TID #90 tabs 01/31/24 02/01/24 Rx midodrine 10 mg tablet 10 mg PO TIDM 30 days #30 tabs 01/31/24 02/01/24 Rx Past Med/Surg History Problem List Acute bronchitis Chronic orthostatic hypotension COVID-19 (Acute) Head injury, closed, with brief LOC (Acute) Respiratory syncytial virus (RSV) infection (Acute) Acute respiratory failure with hypoxia (Acute) Bronchopneumonia Encounter for pre-operative examination Aspiration pneumonia (Acute) H/O malignant neoplasm of tonsil (Acute) Lactic acidosis Pneumonia (Acute) Hypoxemia (Acute) Sepsis (Acute) Lab test negative for COVID-19 virus (Acute) Acute hypokalemia (Acute) DVT prophylaxis Protein calorie malnutrition Hypokalemia Chronic bronchitis Ex-smoker Hypoxia (Acute) Influenza A (Acute) COVID-19 (Acute) Rigors (Acute) Confusion (Acute) Fever (Acute) SIRS (systemic inflammatory response syndrome) Blood pressure instability (Acute) S Cardiology manages; currently using midodrine, and nitro PRN hypo/hypertension; per , cardiac workup wnl aside from BP changes Aspiration pneumonia hx - CAN NOT TAKE FOOD/LIQUIDS ORALLY Uses feeding tube Hypothyroidism Glaucoma Hypertension (Acute) Benign prostatic hyperplasia (Unknown) Chronic back pain Depression Gastroparesis COPD (chronic obstructive pulmonary disease) with emphysema H/O esophagogastroduodenoscopy (Unknown) WITH PLACEMENT PEG TUBE S/P arthroscopic knee surgery (Unknown) RT S/P colonoscopy (Unknown) Medical History Abnormal CT scan, neck 07/2022 [facility] - "7 mm lytic lesion within the C3 vertebral body." Per , outpt imaging since being d/c from hospital has r/o mets. History of recent hospitalization 07/2022 [facility] - pneumonia Slow to wake up after anesthesia Speech difficult to understand Hearing loss History of COVID-19 05/2021 treated for pneumonia at [facility]- 06/13/22 admitted to [facility] 06/2022with covid pneumonia, flu, and RSV 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 Degenerative disc disease Osteoarthritis GERD (gastroesophageal reflux disease) Anxiety Asthma rare use of PRN inh Orthostatic hypotension Tonsil carcinoma (Unknown) RADIATION AND CHEMO Surgical History History of radical neck dissection S/P percutaneous endoscopic gastrostomy (PEG) tube placement History of neck surgery LUMPECTOMY History of tooth extraction Family History Brother Family history of diabetes mellitus Social History Smoking Status: Former smoker Tobacco Type: Cigarettes Second Hand Exposure: No; Do You Dip or Chew Tobacco: No; Hx Alcohol Use: Yes Alcohol type: beer Hx Substance Use: No Preferred Language: Swiss 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 Ability: Impaired 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 Ability Comment: 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 [employer] Required: No Beliefs That Will Affect Care: None marital status: Current Living Situation: Spouse Current Living Situation Comment: Personal Home Feels Safe at Home: Yes Assistive Devices: Glasses Review of Systems Review of Systems: all noted and negative except for above Physical Exam Physical Exam: General- oriented x 3, not in distress, speaks in sentences with no effort or accessory muscle use Appears somewhat weak Head- atraumatic Eyes- PERRL, EOMI, anicteric ENT- oropharynx clear Neck- supple, no JVD, no adenopathy, no thyromegaly; carotids +2/2, no bruits appreciated Lungs- Positive rhonchi bilaterally, no wheezing Heart- normal rate, regular rhythm; no murmur, no gallop, no rub appreciated Abdomen- normal bowel sounds, nondistended, soft, nontender, no masses or hepatosplenomegaly PEG tube in place Extremities- no pretibial edema, no calf tenderness; peripheral pulses intact Neuro- alert, oriented x 3; CN 2-12 grossly intact Except for very hard of hearing; motor 5/5 bilaterally;sensation 100% on all extremities; no other gross focal neurologic deficits Skin- warm & dry Results & Data Results & Data Vital Signs (Past 12 Hours) Vital Signs Temp Pulse Pulse Resp BP BP Pulse Ox 02/01/24 18:00 74 18 185/100 H 99 02/01/24 17:30 67 18 180/99 H 91 02/01/24 17:06 67 23 99 02/01/24 17:00 70 167/83 H 97 02/01/24 17:00 70 167/83 H 99 02/01/24 16:10 65 153/77 H 100 02/01/24 15:10 60 18 134/75 98 02/01/24 15:01 65 02/01/24 14:43 37 C 59 L 22 82/42 L 98 O2 Del Method 02/01/24 18:00 02/01/24 17:30 Room Air 02/01/24 17:06 Room Air 02/01/24 17:00 02/01/24 17:00 02/01/24 16:10 02/01/24 15:10 Room Air 02/01/24 15:01 02/01/24 14:43 Room Air Code Status & VTE Plan VTE Prophylaxis Plan VTE Prophylaxis will be ordered: Yes
[2024-02-01] MEDS ORDERED: ACETAMINOPHEN 500 MG TAB PO PRN (20:46)
[2024-02-01] MEDS ORDERED: FOOD SUPPLEMT LACTOSE REDUCED Feeding Tube SCH (21:00)
[2024-02-01] MEDS: IPRATROPIUM BROMIDE NEB SOLN 0.02% 0.5MG/2.5ML VIAL NEB SCH (21:54)
[2024-02-01] MEDS: SODIUM CHLOR 7% 4 ML NEB NEB SCH (21:54)
[2024-02-01] MEDS: LEVALBUTEROL 1.25 MG/3 ML NEB NEB SCH (21:54)
[2024-02-01] MEDS: REMDESIVIR 200 MG in SODIUM CHLORIDE 0.9% 210 ML IV STA (22:09)
[2024-02-01] MEDS: ACETAMINOPHEN 1,000 MG/100 ML VIAL IV STA (22:56)
[2024-02-01] MEDS: POTASSIUM CHLORIDE 20 MEQ/15 ML UDC PO ONE (22:57)
[2024-02-01] MEDS: LATANOPROST 0.005% OP SOLN 2.5 ML BTL OPB SCH (22:58)
[2024-02-01] MEDS: guaiFENesin SUGAR FREE 200 MG/10 ML UDC PEG SCH (23:04)
[2024-02-02] MEDS: MIDODRINE HCL 10 MG TAB PO STA (00:47)
[2024-02-02] MEDS: SODIUM CHLORIDE 0.9% 500 ML IV ONE (00:47)
--- NOTE | 2024-02-02 01:03 | CT Scan Report ---
Exam(s): CT HEAD Without Contrast EXAM: CT Head Without Intravenous Contrast CLINICAL HISTORY: Reason for exam: marley, hx head trauma. TECHNIQUE: Axial computed tomography images of the head/brain without intravenous contrast. CTDI is 36.62 mGy and DLP is 547.75 mGy-cm. Automated exposure control was utilized for the study. A dose lowering technique was utilized adhering to the principles of ALARA. Metal artifact left temporal region and patient motion mildly limits evaluation. COMPARISON: Head CT 01/30/24. FINDINGS: Brain: No mass effect or acute infarct. No acute hemorrhage. Mild atrophy and chronic white matter disease. Ventricles: No hydrocephalus or midline shift. Bones/joints: No skull fracture. Soft tissues: No scalp hematoma. Visualized Sinuses: Clear. Mastoid air cells: Stable, mild left mastoid effusion, and metal artifact from cochlear implant. IMPRESSION: 1. Mild age-related findings. 2. No skull fracture, bleed, or acute intracranial abnormality. Electronically signed by: Anneliese Reece M.D. 02/02/24 01:02 AM
--- NOTE | 2024-02-02 04:53 | 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 Note ---
Date of Service: February 02, 2024 Patient SBP 80 to 90s. Patient with lightheadedness symptoms. AP Hypotension History orthostatic hypotension on midodrine Resume home midodrine Held on admission due to BP elevation
[2024-02-02 08:20] LABS: Hemoglobin 12.4 g/dl (14.0-18.0); Immature Granulocytes # (auto) 0.02 K/uL (0.01-0.20); Immature Granulocytes % (auto) 0.3 %; Lymphocytes # (auto) 0.49 K/uL (1.20-3.40); Lymphocytes % (auto) 6.9 %; Mean Corpuscular Hemoglobin 32.5 pg (25.0-34.0); Mean Corpuscular Hgb Conc 33.5 g/dL (32.0-36.0); Mean Corpuscular Volume 97.1 fL (80.0-100.0); Mean Platelet Volume 11.4 fL (9.4-12.4); Neutrophils # (auto) 6.09 K/uL (1.40-6.50); Neutrophils % (auto) 85.8 %; Platelet Count 147 K/uL (130-400); RDW Coefficient of Variation 13.9 % (11.5-14.5); RDW Standard Deviation 49.5 fL (36.4-46.3); Red Blood Count 3.81 M/uL (4.70-6.10)
[2024-02-02] MEDS: LACTATED RINGER'S 500 ML IV ONE (08:26)
[2024-02-02] MEDS: CITALOPRAM 20 MG TAB PEG SCH (08:31)
[2024-02-02] MEDS: MIDODRINE HCL 10 MG TAB PO SCH (08:31)
[2024-02-02] MEDS: LACTOBACILLUS ACIDOPHILUS 1 GM PACK PEG SCH (08:31)
[2024-02-02] MEDS: LEVOTHYROXINE SODIUM 88 MCG TABLET PEG SCH (08:31)
[2024-02-02 08:43] LABS: Albumin Globulin Ratio 1.1 (0.9-2); Albumin Level 3.3 gm/dl (3.4-5.0); BUN Creatinine Ratio 13.7 (10-20); Bilirubin,Total 0.4 mg/dl (0.2-1.0); Calcium 8.3 mg/dl (8.6-10.3); Creatinine Clr Calc Pharmacy 58.1 ml/min; Est GFR (African American) 69.8 ml/min; Est GFR (Non-African American) 60.2 ml/min; Magnesium 1.7 mg/dl (1.7-2.4); Potassium 3.7 mmol/L (3.5-5.1); Total Protein 6.3 gm/dl (6.0-8.3)
[2024-02-02] MEDS: PEPTAMEN 1.5 CAL 1,000 ML BAG GT SCH (11:07)
--- NOTE | 2024-02-02 11:10 | Electrocardiogram Report ---
Test Reason : Blood Pressure : / mmHG Vent. Rate : 060 BPM Atrial Rate : 060 BPM P-R Int : 136 ms QRS Dur : 090 ms QT Int : 410 ms P-R-T Axes : 021 -39 049 degrees QTc Int : 410 ms Normal sinus rhythm Left axis deviation Abnormal ECG When compared with ECG of 30-JAN-2024 20:29, Nonspecific T wave abnormality now evident in Anterior leads QT has shortened Confirmed by Soto Moore ([id number]) on 02/02/2024 11:10:32 AM Referred By: Confirmed By:Soto Moore
[2024-02-02] MEDS: TUBE FEEDING WATER FLUSH GT SCH ×2 (11:16→13:37)
--- NOTE | 2024-02-02 15:39 | Hospitalist Progress Note ---
Date of Service February 02, 2024 Assessment & Plan (1) COVID-19: (2) Acute bronchitis: (3) Chronic orthostatic hypotension: Plan: 78-year-old male with history of orthostatic hypotension, tonsillar cancer status postchemotherapy and radiation, aspiration with status post PEG tube placement, COPD, hypothyroidism, presenting with weakness, and productive cough since yesterday. Generalized weakness secondary to COVID-19 infection, acute bronchitis, mild COPD exacerbation Currently on room air CT chest from yesterday: Lungs: Mild small airway mucoid impaction of the RIGHT lung base. No mass. No consolidation. Vasculature: Atherosclerotic changes of the aorta. No thoracic aortic aneurysm. Patient has risk factors for progression of COVID-19 to severe illness including age, COPD, poor nutritional status; on remdesivir Monitor renal function, liver function, heart rate Spirometry, flutter valve, Mucinex Sputum culture Prednisone 40 mg p.o. daily azithromycin for 3 days Orthostatic hypotension Usually on as needed clonidine for hypertension and midodrine for hypotension was discharged on scheduled hydralazine 3 times daily and midodrine 3 times daily Admitted with systolic BPs in the 80s Blood pressure elevated after IV fluids, IV Solu-Medrol given Resume midodrine Hold hydralazine for now, monitor blood pressure trend Hypokalemia Potassium 2.8 on admission improved to 3.7 Elevated lactic acid Likely secondary to #1 Continue IV fluids Repeat lactic acid in the morning Tonsillar cancer, status post chemoradiation Aspiration risk, on PEG tube Continue nutritional shakes 3 times daily Hypothyroidism Continue levothyroxine DVT prophylaxis heparin Full code Disposition Admit to PCU Lives with family at home Time spent evaluating patient, direct bedside care, chart review, placing orders, interpretation of diagnostic studies, discussion with consultants, p atient, and family members, as well as other required patient management activities is 50 minutes Please note the above document was generated using voice recognition software. It may contain grammatical, syntax or spelling errors. Any formal questions or concerns about the content, text or information contained within the body of this dictation should be directly addressed to the provider for clarification Admission and Anticipated Discharge Date Admission Date: February 01, 2024 Subjective Patient seen and examined at bedside. He appears comfortable; not in distress Hemodynamically stable; saturating well on room air He is tolerating tube feeds Review of Systems Review of Systems: All systems reviewed & are unremarkable except as noted in Subjective Physical Exam Physical Exam: General- oriented x 3, not in distress, speaks in sentences with no effort or accessory muscle use Lungs- Positive rhonchi bilaterally, no wheezing Heart- normal rate, regular rhythm; no murmur, no gallop, no rub appreciated Abdomen- normal bowel sounds, nondistended, soft, nontender, no masses or hepatosplenomegaly PEG tube in place Extremities- no pretibial edema, no calf tenderness; peripheral pulses intact Neuro- alert, oriented x 3; CN 2-12 grossly intact Except for very hard of hearing; motor 5/5 bilaterally;sensation 100% on all extremities; no other gross focal neurologic deficits Skin- warm & dry Results & Data Results & Data Vital Signs (Past 12 Hours) Vital Signs Temp Pulse Pulse Resp BP Pulse Ox O2 Del Method 02/02/24 13:08 76 20 99 Room Air 02/02/24 13:00 85 02/02/24 11:23 36.4 C L 75 18 127/70 97 Room Air 02/02/24 08:25 36.5 C 92 H 18 99/55 L 97 Room Air 02/02/24 08:00 Room Air 02/02/24 07:19 68 18 98 Room Air 02/02/24 07:00 67 02/02/24 07:00 36.6 C 79 18 108/63 99 Room Air
[2024-02-02] MEDS: AZITHROMYCIN 250 MG TAB PO SCH (16:25)
[2024-02-02] MEDS: REMDESIVIR 100 MG in SODIUM CHLORIDE 0.9% 230 ML IV SCH (19:56)
[2024-02-02] MEDS: ALUMINUM/MAGNESIUM/SIMETH (MAALOX MAX) 30 ML UDC PEG PRN (19:58)
[2024-02-02] MEDS: HEPARIN SOD 5,000 UNIT/0.5 ML VIAL SQ SCH (20:54)
[2024-02-03 07:13] LABS: Basophils # (auto) 0.02 K/uL (0.00-0.20); Basophils % (auto) 0.3 %; Eosinophils # (auto) 0.01 K/uL (0.00-0.50); Eosinophils % (auto) 0.2 %; Hematocrit (blood only) 35.4 % (42.0-52.0); Hemoglobin 11.9 g/dl (14.0-18.0); Immature Granulocytes # (auto) 0.02 K/uL (0.01-0.20); Immature Granulocytes % (auto) 0.3 %; Lymphocytes # (auto) 0.74 K/uL (1.20-3.40); Lymphocytes % (auto) 11.6 %; Mean Corpuscular Hemoglobin 32.2 pg (25.0-34.0); Mean Corpuscular Hgb Conc 33.6 g/dL (32.0-36.0); Mean Corpuscular Volume 95.9 fL (80.0-100.0); Mean Platelet Volume 11.3 fL (9.4-12.4); Monocytes # (auto) 0.52 K/uL (0.11-0.59); Monocytes % (auto) 8.2 %; Neutrophils # (auto) 5.07 K/uL (1.40-6.50); Neutrophils % (auto) 79.4 %; Platelet Count 121 K/uL (130-400); RDW Coefficient of Variation 14.1 % (11.5-14.5); RDW Standard Deviation 50.5 fL (36.4-46.3); Red Blood Count 3.69 M/uL (4.70-6.10); White Blood Count 6.38 K/ul (4.8-10.8)
[2024-02-03 07:40] LABS: Albumin Globulin Ratio 1.1 (0.9-2); Albumin Level 3.2 gm/dl (3.4-5.0); Bilirubin,Total 0.4 mg/dl (0.2-1.0); Creatinine Clr Calc Pharmacy 73.9 ml/min; Est GFR (African American) 98.1 ml/min; Est GFR (Non-African American) 84.6 ml/min; Globulin 2.8 gm/dl (2.5-4.0); Magnesium 1.8 mg/dl (1.7-2.4); Potassium 3.8 mmol/L (3.5-5.1)
--- NOTE | 2024-02-03 15:54 | Discharge Summary ---
Date of Service February 03, 2024 Admission HPI Per Admitting Provider 78-year-old male with history of orthostatic hypotension, tonsillar cancer status postchemotherapy and radiation, aspiration with status post PEG tube placement, COPD, hypothyroidism, presenting with weakness, and productive cough since yesterday. Of note, the patient was discharged from [facility] yesterday after being admitted for hypotension, COVID-19 infection. He was advised to take hydralazine 3 times daily and midodrine 3 times daily. He was not hypoxic, CT chest only showed mucus in the right bronchus. He received supportive care for COVID-19 infection. Upon discharge, patient noted to be progressively weak, and was having increased cough productive of yellow sputum, with some shortness of breath. They were directed by the primary care physician to return to the ER for further ev aluation. Upon arrival at the ER, patient's blood pressure was noted to be in the systolic 80s, saturating 98% on room air. Noted to be congested on exam Chest x-ray no pneumonia Potassium 2.8 He was started on cefepime, Solu-Medrol, and IV fluids. On exam, blood pressure improved to 170 systolic. Patient seen resting in bed, sleeping but easily awakened, very hard of hearing. Patient's at the bedside assisting with the exam. Feels tired overall, no active shortness of breath, still coughing. No other new symptom Admission Exam Per Admitting Provider General- oriented x 3, not in distress, speaks in sentences with no effort or accessory muscle use Appears somewhat weak Head- atraumatic Eyes- PERRL, EOMI, anicteric ENT- oropharynx clear Neck- supple, no JVD, no adenopathy, no thyromegaly; carotids +2/2, no bruits appreciated Lungs- Positive rhonchi bilaterally, no wheezing Heart- normal rate, regular rhythm; no murmur, no gallop, no rub appreciated Abdomen- normal bowel sounds, nondistended, soft, nontender, no masses or hepatosplenomegaly PEG tube in place Extremities- no pretibial edema, no calf tenderness; peripheral pulses intact Neuro- alert, oriented x 3; CN 2-12 grossly intact Except for very hard of hearing; motor 5/5 bilaterally;sensation 100% on all extremities; no other gross focal neurologic deficits Skin- warm & dry Principal Diagnosis Generalized weakness secondary to COVID-19 infection, acute bronchitis, mild COPD exacerbation Discharge Exam General- oriented x 3, not in distress, speaks in sentences with no effort or accessory muscle use Lungs- b/l clear breath sounds Heart- normal rate, regular rhythm; no murmur, no gallop, no rub appreciated Abdomen- normal bowel sounds, nondistended, soft, nontender, no masses or hepatosplenomegaly PEG tube in place Extremities- no pretibial edema, no calf tenderness; peripheral pulses intact Neuro- alert, oriented x 3; CN 2-12 grossly intact Except for very hard of hearing; motor 5/5 bilaterally;sensation 100% on all extremities; no other gross focal neurologic deficits Skin- warm & dry Discharge Data Allergies Allergy/AdvReac Type Severity Reaction Status Date / Time levofloxacin Allergy Intermediate rash all Verified 02/01/24 18:01 over body sulfamethoxazole Allergy Intermediate ITCHING/HIVES Verified 02/01/24 18:01 WITH BACTRIM trimethoprim Allergy Intermediate ITCHING/HIVES Verified 02/01/24 18:01 WITH BACTRIM Nitrate Analogues AdvReac Severe DROP IN Verified 02/01/24 18:01 BP/UNCONSCIOUSNESS lisinopril AdvReac Intermediate ELEVATES Verified 02/01/24 18:01 B/P sertraline AdvReac Intermediate NOSE BLEEDS Verified 02/01/24 18:01 terazosin AdvReac Intermediate PRIAPRISM Verified 02/01/24 18:01 PER [facility] Consultations 02/01/24 17:50 ED Decision to Admit Stat Ordered Studies 02/01/24 22:46 CT head/brain wo con Stat Hospital Course (1) COVID-19: (2) Acute bronchitis: (3) Chronic orthostatic hypotension: 78-year-old male with history of orthostatic hypotension, tonsillar cancer status postchemotherapy and radiation, aspiration with status post PEG tube placement, COPD, hypothyroidism, presenting with weakness, and for 1 day. Generalized weakness secondary to COVID-19 infection, acute bronchitis, mild COPD exacerbation Patient presented with weakness and cough for [address] chest: Lungs: Mild small airway mucoid impaction of the RIGHT lung base. No mass. No consolidation. Vasculature: Atherosclerotic changes of the aorta. No thoracic aortic aneurysm. Patient was admitted to medical floor; was started on DuoNeb, flutter valve and Mucinex. He was also started on remdesivir for COVID-19 infection He was also treated with azithromycin and prednisone Patient showed significant improvement during the hospitalization. Orthostatic hypotension Usually on as needed clonidine for hypertension and midodrine for hypotension was discharged on scheduled hydralazine 3 times daily and midodrine 3 times daily Admitted with systolic BPs in the 80s Blood pressure elevated after IV fluids, IV Solu-Medrol given Resume midodrine Hydralazine stopped at discharge Please note the above document was generated using voice recognition software. It may contain grammatical, syntax or spelling errors. Any formal questions or concerns about the content, text or information contained within the body of this dictation should be directly addressed to the provider for clarification Total Time Total Time Spent Total Time Spent (In Minutes): 35 Total Time Includes: Examination of the Patient, Discharge Planning, Medication Reconciliation, 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 With Other Providers and Other Discharge Plan Discharge Items Patient Disposition: Home - Self-Care Reason For Visit: HYPOTENSION, COVID 19, ACUTE BRONCHITIS Discharge Diagnosis: COVID-19 infection Hypotension, likely secondary to medications Condition on Discharge: Fair Activity: Resume your previous activity Non-emergency contact: Primary Care Provider Call non-emergency contact if: you have any medication questions and your symptoms worsen Follow-up/Referrals: Sanjiv Hart MD [Primary Care Provider] - (Date & Time 02/10/2024 9:00 AM Provider Walter Kwan MD Department [facility] ) Diet: Regular Addtl Attending Provider Instructions: You were admitted to the hospital due to COVID-19 infection. Chest x-ray was done which did not show any pneumonia. You are prescribed azithromycin to be taken for 1 more day to complete treatment for bronchitis. Please stop taking hydralazine. Continue to take midodrine as prescribed before. Pending Studies at Discharge: No Stand-Alone Forms: [employer], Smoking Cessation Medications and DC Order Prescriptions: New azithromycin 250 mg Tablet 500 mg PO DAILY 1 Days Qty: 2 0RF Continued latanoprost 0.005 % Drops 1 drp OPB HS citalopram 20 mg tablet 20 mg Feeding Tube QAM Nutritional Drink Liquid 2 can Feeding Tube TID acetaminophen [Tylenol Extra Strength] 500 mg Tablet 1,000 mg feeding tube Q6H PRN (Reason: Pain) levothyroxine [Euthyrox] 88 mcg tablet 88 mcg feeding tube QAM atorvastatin 40 mg tablet 40 mg feeding tube QAM albuterol sulfate 1.25 mg/3 mL solution for nebulization 1.25 mg inhalation Q4H PRN (Reason: Shortness Of Breath Or Wheezing) midodrine 10 mg Tablet 10 mg PO TIDM 30 Days Qty: 30 0RF Discontinued hydralazine 25 mg tablet 25 mg PO TID Qty: 90 0RF Rx Instructions: hold for SBP < 140 Discharge Orders: Discharge Order (Routine); Ordered 02/03/24 Ordered By: Angel Germain Admission Data Admit Date/Time: 02/01/24 18:30 Attending Provider: Angel Germain Admit Provider: Remigio Rico Primary Care Provider: Sanjiv Hart Other Providers: Remigio Rico Other Interventions: Discharge Summary Assessment (RN) Last Done: 02/03/24 12:19
== END 2024-02-03 12:34 | disposition home or self-care (01) | DRG 178 ==
LOC: ED 14:28 → EDINP 18:30 → SUATTDRO 18:30 → 2S 20:45
DX: I95.1 Orthostatic hypotension; J44.1 Chronic obstructive pulmonary disease with (acute) exacerbation; E03.9 Hypothyroidism, unspecified; E87.6 Hypokalemia; Z83.3 Family history of diabetes mellitus; Z79.890 Hormone replacement therapy; Z88.1 Allergy status to other antibiotic agents; Z88.2 Allergy status to sulfonamides; U07.1 COVID-19; Z87.891 Personal history of nicotine dependence; J20.8 Acute bronchitis due to other specified organisms

== ENCOUNTER 2024-02-23 14:22 | Inpatient (IN) ==
--- NOTE | 2024-02-23 15:04 | Emergency Department Note ---
History of Present Illness General Chief complaint: Fever Stated complaint: FEVER, SHAKY Time Seen by Provider: 02/23/24 14:47 Source: patient, family ( who is at the bedside), RN notes reviewed and old records reviewed (History and physical for admission for bronchitis/cough, illness- 02/01/24) Mode of arrival: ambulatory Limitations: no limitations and clinical acuity (He is also very hard of hearing) History of Present Illness This patient 78-year-old male who has a complex medical history including history of laryngeal cancer, asthma, COPD, cochlear implants, comes in after having a cough and shakiness. He apparently was shaky in triage they thought he could be having a seizure so they brought him back to room a 1. He does not appear to be having a seizure at present and as far as I can tell is not postictal will check a blood sugar and was normal. He has had no fall. He told his he feels like he has a bronchitis again they used a neb an hour prior to arrival and he seems like he is doing okay in that regard. He may have had a fever at home. Home Medications Medication Instructions Recorded Confirmed Type citalopram 20 mg tablet 20 mg feeding tube QAM 05/07/18 02/23/24 History food supplemt, lactose-reduced 2 can feeding tube TID 05/07/18 02/23/24 History (Nutritional Drink oral liquid) latanoprost 0.005 % eye drops 1 drp OPB HS 01/30/19 02/23/24 History acetaminophen 500 mg tablet 1,000 mg feeding tube Q6H PRN Pain 03/06/21 02/23/24 History (Tylenol Extra Strength) levothyroxine 88 mcg tablet 88 mcg feeding tube QAM 04/06/21 02/23/24 History (Euthyrox) atorvastatin 40 mg tablet 40 mg feeding tube QAM 06/02/21 02/23/24 History albuterol sulfate 1.25 mg/3 mL 1.25 mg inhalation Q4H PRN 06/03/23 02/23/24 History solution for nebulization Shortness Of Breath Or Wheezing midodrine 10 mg tablet 10 mg PO TIDM 30 days #30 tabs 01/31/24 02/23/24 Rx Allergies Allergy/AdvReac Type Severity Reaction Status Date / Time levofloxacin Allergy Intermediate rash all Verified 02/23/24 15:14 over body sulfamethoxazole Allergy Intermediate ITCHING/HIVES Verified 02/23/24 15:14 WITH BACTRIM trimethoprim Allergy Intermediate ITCHING/HIVES Verified 02/23/24 15:14 WITH BACTRIM Nitrate Analogues AdvReac Severe DROP IN Verified 02/23/24 15:14 BP/UNCONSCIOUSNESS lisinopril AdvReac Intermediate ELEVATES Verified 02/23/24 15:14 B/P sertraline AdvReac Intermediate NOSE BLEEDS Verified 02/23/24 15:14 terazosin AdvReac Intermediate PRIAPRISM Verified 02/23/24 15:14 PER FABIEN Past Med/Surg History Problem List Pneumonia (Acute) On tube feeding diet Tonsil carcinoma (Unknown) RADIATION AND CHEMO Lab test negative for COVID-19 virus (Acute) COPD exacerbation (Acute) Hypoxemia (Acute) Hypokalemia (Acute) COVID-19 (Acute) Elevated lactic acid level (Acute) Cough (Acute) Hypotension (Acute) Acute bronchitis Chronic orthostatic hypotension COVID-19 (Acute) Head injury, closed, with brief LOC (Acute) Respiratory syncytial virus (RSV) infection (Acute) Acute respiratory failure with hypoxia (Acute) Bronchopneumonia Encounter for pre-operative examination Aspiration pneumonia (Acute) H/O malignant neoplasm of tonsil (Acute) Lactic acidosis Pneumonia (Acute) Hypoxemia (Acute) Sepsis (Acute) Lab test negative for COVID-19 virus (Acute) Acute hypokalemia (Acute) DVT prophylaxis Protein calorie malnutrition Hypokalemia Chronic bronchitis Ex-smoker Hypoxia (Acute) Influenza A (Acute) COVID-19 (Acute) Rigors (Acute) Confusion (Acute) Fever (Acute) SIRS (systemic inflammatory response syndrome) Blood pressure instability (Acute) [facility] manages; currently using midodrine, and nitro PRN hypo/hypertension; per , cardiac workup wnl aside from BP changes Aspiration pneumonia hx - CAN NOT TAKE FOOD/LIQUIDS ORALLY Uses feeding tube Hypothyroidism Glaucoma Hypertension (Acute) Benign prostatic hyperplasia (Unknown) Chronic back pain Depression Gastroparesis COPD (chronic obstructive pulmonary disease) with emphysema H/O esophagogastroduodenoscopy (Unknown) WITH PLACEMENT PEG TUBE S/P arthroscopic knee surgery (Unknown) RT S/P colonoscopy (Unknown) Medical History Abnormal CT scan, neck 07/2022 [facility] - "7 mm lytic lesion within the C3 vertebral body." Per , outpt imaging since being d/c from hospital has r/o mets. History of recent hospitalization 07/2022 [facility] - pneumonia Slow to wake up after anesthesia Speech difficult to understand Hearing loss History of COVID-19 05/2021 treated for pneumonia at [facility]- 06/13/22 admitted to [facility] 06/2022with covid pneumonia, flu, and RSV 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 Degenerative disc disease Osteoarthritis GERD (gastroesophageal reflux disease) Anxiety Asthma rare use of PRN inh Orthostatic hypotension Tonsil carcinoma (Unknown) RADIATION AND CHEMO Surgical History History of radical neck dissection S/P percutaneous endoscopic gastrostomy (PEG) tube placement History of neck surgery LUMPECTOMY History of tooth extraction Family History Brother Family history of diabetes mellitus Social History Smoking Status: Former smoker Tobacco Type: Cigarettes Second Hand Exposure: No; Do You Dip or Chew Tobacco: No; Hx Alcohol Use: Yes Alcohol type: beer Hx Substance Use: No Preferred Language: Japanese 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 Ability: Impaired 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 Ability 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, 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 Director Of Transportation Required: No Beliefs That Will Affect Care: None marital status: Current Living Situation: Spouse Current Living Situation Comment: Personal Home Feels Safe at Home: Yes Assistive Devices: Glasses Review of Systems A total of 10 systems reviewed and were otherwise negative (With his ) Physical Exam Vital Signs Vital Signs - 24 hr 02/23/24 14:30 02/23/24 14:55 02/23/24 15:11 Temperature 36.6 C Temperature Source Oral Pulse Rate 64 91 H Pulse Rate [Right Finger] 96 H Pulse Rhythm Regular Pulse Rhythm [Right Finger] Pulse Strength [Right Finger] Respiratory Rate 22 25 H 33 H Respiratory Effort / Characteristics Non-Labored Spontaneous Respiratory Depth Normal Normal Blood Pressure 140/103 H Blood Pressure [Right Arm] 203/100 H Blood Pressure Mean 115 Blood Pressure Mean [Right Arm] 134 Pulse Oximetry 98 90 91 Oxygen Delivery Method Room Air Nasal Cannula Nasal Cannula Oxygen Flow Rate 3 3 Sepsis Recent Fever Within 48 Hours Yes Sepsis New/Unexplained Change in Mental Status N/A Sepsis Action Taken by Nursing No Action Required 02/23/24 15:11 02/23/24 15:27 02/23/24 15:34 Temperature Temperature Source Pulse Rate 94 H Pulse Rate [Right Finger] 91 H 90 Pulse Rhythm Pulse Rhythm [Right Finger] Regular Pulse Strength [Right Finger] Normal Respiratory Rate 33 H 30 H Respiratory Effort / Characteristics Non-Labored Respiratory Depth Normal Blood Pressure Blood Pressure [Right Arm] 200/94 H 124/75 Blood Pressure Mean Blood Pressure Mean [Right Arm] 129 91 Pulse Oximetry 92 91 Oxygen Delivery Method Nasal Cannula Nasal Cannula Oxygen Flow Rate 3 5 Sepsis Recent Fever Within 48 Hours Sepsis New/Unexplained Change in Mental Status Sepsis Action Taken by Nursing 02/23/24 15:57 02/23/24 16:00 02/23/24 16:10 Temperature Temperature Source Pulse Rate Pulse Rate [Right Finger] 101 H 101 H 100 H Pulse Rhythm Pulse Rhythm [Right Finger] Pulse Strength [Right Finger] Respiratory Rate 29 H 28 H 30 H Respiratory Effort / Characteristics Respiratory Depth Normal Blood Pressure Blood Pressure [Right Arm] 124/70 Blood Pressure Mean Blood Pressure Mean [Right Arm] 88 Pulse Oximetry 90 90 10 L Oxygen Delivery Method Nasal Cannula Nasal Cannula Oxymask Oxygen Flow Rate 5 6 89 Sepsis Recent Fever Within 48 Hours Sepsis New/Unexplained Change in Mental Status Sepsis Action Taken by Nursing 02/23/24 16:15 02/23/24 16:30 Temperature Temperature Source Pulse Rate Pulse Rate [Right Finger] 102 H 109 H Pulse Rhythm Pulse Rhythm [Right Finger] Pulse Strength [Right Finger] Respiratory Rate 29 H 29 H Respiratory Effort / Characteristics Respiratory Depth Blood Pressure Blood Pressure [Right Arm] 98/58 L Blood Pressure Mean Blood Pressure Mean [Right Arm] 71 Pulse Oximetry 92 93 Oxygen Delivery Method Nebulizer Nebulizer Oxygen Flow Rate Sepsis Recent Fever Within 48 Hours Sepsis New/Unexplained Change in Mental Status Sepsis Action Taken by Nursing General: Cachectic, chronically ill-appearing older male who in no acute distress, breathing comfortably on room air. Hard of hearing HEENT: Normal cephalic atraumatic. Pupils are equal round and reactive to light. Extraocular movements are intact. Oropharynx is pink with moist mucous membranes. No swelling of the mouth lips or tongue. Scar from previous laryngeal surgery Neck: Supple with a midline trachea. No meningeal signs or stiffness, no JVD or bruits. No Stridor. Chest: Clear to auscultation bilaterally. No wheezes or rhonchi. No increased work of breathing. Heart: Regular rate and rhythm without murmurs or gallops. Abdomen: Soft nontender, nondistended without rebound guarding or rigidity. Feeding tube in place Extremities: No cyanosis clubbing or edema. No calf tenderness or assymetry Spine/Back. Non tender to palpation. No CVA tenderness Skin: Good turgor without rashes. Neurologic exam: Cranial nerves two through 12 are intact. Motor and sensation are intact and symmetrical throughout. Course Administered Medications Discontinued Medications Albuterol (Albut/Ipratrop 3mg/0.5mg Neb 3 Ml Vial) 3 ml NEB NOW STA; Protocol Stop: 02/23/24 15:37 Last Admin: 02/23/24 15:40 Dose: 3 ml Documented By: SYLVIAW Albuterol (Albut/Ipratrop 3mg/0.5mg Neb 3 Ml Vial) 12 ml NEB ONE ONE; Protocol Stop: 02/23/24 16:14 Last Admin: 02/23/24 16:16 Dose: 12 ml Documented By: SYLVIAW Sodium Chloride (Nss) 250 mls @ 999 mls/hr IV .Q16M ONE Stop: 02/23/24 15:43 Last Infusion: 02/23/24 15:44 Dose: Infused Documented By: Admin: 02/23/24 15:32 Dose: 999 mls/hr Documented By: SYLVIAW Cefepime HCl 2,000 mg/ Syringe 20 mls @ 5 mls/min IV NOW STA; Protocol Stop: 02/23/24 15:39 Last Admin: 02/23/24 15:48 Dose: 5 mls/min Documented By: SYLVIAW Sodium Chloride (Nss) 1,000 mls @ 999 mls/hr IV .Q1H1M ONE Stop: 02/23/24 17:38 Last Admin: 02/23/24 16:43 Dose: 999 mls/hr Documented By: SYLVIAW Ioversol (Optiray 320 125ml) 116 ml IV ONCE ONE Stop: 02/23/24 17:27 Last Admin: 02/23/24 17:27 Dose: 116 ml Documented By: BELTRAN Critical Care Time Critical Care Time: Yes Total Critical Care Time: 35 Due to the patient's hypoxemia, concern for seizures and need for frequent reassessment, multiple medications and consultations, I have personally spent greater than 35 minutes of critical care time in the direct management of this patient. This includes bedside care, interpretation of diagnostic studies, and testing, discussion with consultants, patient, and family members, and other required patient management activities. This 35 minutes is in excess of all separately billable procedures. Medical Decision Making Differential Diagnosis COPD exacerbation, bronchitis, sepsis, CHF, pneumothorax, cardiac disease, electrolyte or metabolic abnormality, seizure, intracranial process Medical Records Attestation: I reviewed the patient's medical records. Home Medications Current Medication List: was personally reviewed by me Laboratory Data Attestation: I reviewed the patient's lab results. 02/23/24 14:51 02/23/24 15:42 Lab Results 02/23/24 02/23/24 02/23/24 Range/Units 14:51 14:52 15:07 WBC 9.89 (4.8-10.8) K/ul RBC 4.56 L (4.70-6.10) M/uL Hgb 14.8 (14.0-18.0) g/dl Hct 43.4 (42.0-52.0) % MCV 95.2 (80.0-100.0) fL MCH 32.5 (25.0-34.0) pg MCHC 34.1 (32.0-36.0) g/dL RDW Std Deviation 47.8 H (36.4-46.3) fL RDW Coeff of Judy 13.6 (11.5-14.5) % Plt Count 177 (130-400) K/uL MPV 10.9 (9.4-12.4) fL Immature Gran % (Auto) 0.3 % Neut % (Auto) 83.3 % Lymph % (Auto) 10.3 % [place] % (Auto) 5.0 % Eos % (Auto) 0.7 % Baso % (Auto) 0.4 % Neut # (Auto) 8.24 H (1.40-6.50) K/uL Lymph # (Auto) 1.02 L (1.20-3.40) K/uL [place] # (Auto) 0.49 (0.11-0.59) K/uL Eos # (Auto) 0.07 (0.00-0.50) K/uL Baso # (Auto) 0.04 (0.00-0.20) K/uL Immature Gran # (Auto) 0.03 (0.01-0.20) K/uL ABG pH (7.35-7.45) ABG pCO2 (35-46) mmHg ABG pO2 (80-95) mmHg ABG HCO3 (19-24) mmol/L ABG O2 Saturation (90-95) % ABG Base Excess (-9-1.8) mEq/L Chacorta Test (Pos) Oxygen Given Sodium 138 (136-145) mmol/L Potassium TNP Chloride 102 (98-107) mmol/L Carbon Dioxide 25 (21-32) mmol/L Anion Gap 11 (3-11) BUN 6 (6-23) mg/dl Creatinine 1.06 (0.6-1.4) mg/dl Est Cr Clr Drug Dosing 60.9 ml/min Est GFR ( Amer) 78.6 ml/min Est GFR (Non-Af Amer) 67.8 ml/min BUN/Creatinine Ratio 5.7 L (10-20) Glucose 111 H (70-99(Fasting)) mg/dl POC Glucose 98 (70-99) mg/dl Lactate 4.6 H* (0.4-2.0) mmol/L Calcium 9.5 (8.6-10.3) mg/dl Magnesium 1.9 (1.7-2.4) mg/dl Total Bilirubin 1.2 H (0.2-1.0) mg/dl Direct Bilirubin TNP AST TNP ALT 9 (7-52) U/L Alkaline Phosphatase 99 (34-104) U/L Troponin I High Sens 8.5 (0-20) pg/ml Total Protein 7.7 (6.0-8.3) gm/dl Albumin 4.1 (3.4-5.0) gm/dl Procalcitonin Cancelled Adenovirus (PCR) Not Detected (NotDetected) B. pertussis DNA (PCR) Not Detected (NotDetected) B.parapertussis DNA PCR Not Detected (NotDetected) C. pneumoniae DNA (PCR) Not Detected (NotDetected) Coronavirus OC43 (PCR) Not Detected (NotDetected) Coronavirus HKU1 (PCR) Not Detected (NotDetected) Coronavirus 229E (PCR) Not Detected (NotDetected) SARS-CoV-2 (PCR) Not Detected (NotDetected) Coronavirus NL63 (PCR) Not Detected (NotDetected) Human Metapneumovir PCR Not Detected (NotDetected) Influenza Type A (PCR) Not Detected (NotDetected) Influenza Type B (PCR) Not Detected (NotDetected) M. pneumoniae (PCR) Not Detected (NotDetected) Parainfluenza 1 (PCR) Not Detected (NotDetected) Parainfluenza 2 (PCR) Not Detected (NotDetected) Parainfluenza 3 (PCR) Not Detected (NotDetected) Parainfluenza 4 (PCR) Not Detected (NotDetected) RSV (PCR) Not Detected (NotDetected) Entero/Rhino (PCR) Not Detected (NotDetected) 02/23/24 02/23/24 Range/Units 15:42 16:13 WBC (4.8-10.8) K/ul RBC (4.70-6.10) M/uL Hgb (14.0-18.0) g/dl Hct (42.0-52.0) % MCV (80.0-100.0) fL MCH (25.0-34.0) pg MCHC (32.0-36.0) g/dL RDW Std Deviation (36.4-46.3) fL RDW Coeff of Judy (11.5-14.5) % Plt Count (130-400) K/uL MPV (9.4-12.4) fL Immature Gran % (Auto) % Neut % (Auto) % Lymph % (Auto) % [place] % (Auto) % Eos % (Auto) % Baso % (Auto) % Neut # (Auto) (1.40-6.50) K/uL Lymph # (Auto) (1.20-3.40) K/uL [place] # (Auto) (0.11-0.59) K/uL Eos # (Auto) (0.00-0.50) K/uL Baso # (Auto) (0.00-0.20) K/uL Immature Gran # (Auto) (0.01-0.20) K/uL ABG pH 7.42 (7.35-7.45) ABG pCO2 41 (35-46) mmHg ABG pO2 54 L (80-95) mmHg ABG HCO3 27 H (19-24) mmol/L ABG O2 Saturation 91.7 (90-95) % ABG Base Excess 1.9 H (-9-1.8) mEq/L Chacorta Test Pos (Pos) Oxygen Given NC 5 Sodium (136-145) mmol/L Potassium 3.3 L Chloride (98-107) mmol/L Carbon Dioxide (21-32) mmol/L Anion Gap (3-11) BUN (6-23) mg/dl Creatinine (0.6-1.4) mg/dl Est Cr Clr Drug Dosing ml/min Est GFR ( Amer) ml/min Est GFR (Non-Af Amer) ml/min BUN/Creatinine Ratio (10-20) Glucose (70-99(Fasting)) mg/dl POC Glucose (70-99) mg/dl Lactate (0.4-2.0) mmol/L Calcium (8.6-10.3) mg/dl Magnesium (1.7-2.4) mg/dl Total Bilirubin (0.2-1.0) mg/dl Direct Bilirubin 0.3 H AST 16 ALT (7-52) U/L Alkaline Phosphatase (34-104) U/L Troponin I High Sens (0-20) pg/ml Total Protein (6.0-8.3) gm/dl Albumin (3.4-5.0) gm/dl Procalcitonin 0.02 Adenovirus (PCR) (NotDetected) B. pertussis DNA (PCR) (NotDetected) B.parapertussis DNA PCR (NotDetected) C. pneumoniae DNA (PCR) (NotDetected) Coronavirus OC43 (PCR) (NotDetected) Coronavirus HKU1 (PCR) (NotDetected) Coronavirus 229E (PCR) (NotDetected) SARS-CoV-2 (PCR) (NotDetected) Coronavirus NL63 (PCR) (NotDetected) Human Metapneumovir PCR (NotDetected) Influenza Type A (PCR) (NotDetected) Influenza Type B (PCR) (NotDetected) M. pneumoniae (PCR) (NotDetected) Parainfluenza 1 (PCR) (NotDetected) Parainfluenza 2 (PCR) (NotDetected) Parainfluenza 3 (PCR) (NotDetected) Parainfluenza 4 (PCR) (NotDetected) RSV (PCR) (NotDetected) Entero/Rhino (PCR) (NotDetected) Imaging Data Attestation: I personally reviewed and interpreted this imaging study as follows: My Impression: Head CTno hemorrhage or mass effect. Chest x-ray there appears to be infiltrate in the right base. No pneumothorax. Does not suggest fluid overload Radiologist's Impression: Chest X-Ray 02/23/24 14:55 XR chest 1V portable CLINICAL HISTORY: Sepsis TECHNIQUE: Single frontal radiograph of the chest was obtained. Comparison: Prior chest radiograph 02/01/2024 FINDINGS: No lines and tubes are seen. The cardiomediastinal silhouette is normal. Mild airspace opacity is in the right lung base. No evidence of pleural effusion or pneumothorax. IMPRESSION: Airspace opacity is in the right lung base. This may represent atelectasis, pneumonia, and/or aspiration. ACT 112: Negative or not required by law. Electronically signed by: Richi Graves M.D. 02/23/2024 3:[address] 02/23/24 14:56 CT SCAN OF THE BRAIN WITHOUT IV CONTRAST CLINICAL HISTORY: Seizure. COMPARISON STUDY: CT of the brain dated 02/01/2024. TECHNIQUE: Unenhanced axial CT scan of the brain is performed from the vertex to the skull base. A dose lowering technique was utilized adhering to the principles of ALARA. The skull base was scanned twice due to motion artifact. There is streak artifact from an electronic device overlying the left temporal convexity. FINDINGS: Brain parenchyma: There is age-related involutional change noting minimal microangiopathic disease. There is no hemorrhage, mass effect, or evidence of acute territorial ischemia by CT criteria. Wan-white matter differentiation is preserved. No extra-axial fluid collection is seen. Ventricles, sulci, cisterns: Prominent secondary to involutional change. Intracranial vasculature: There is atherosclerotic calcification of the cavernous carotid and vertebral arteries. Calvarium: Unremarkable. Sinuses and mastoids: There is moderate mucosal thickening within the ethmoid sinuses. Trace mucosal thickening is seen in the frontal and sphenoid sinuses. There is evidence of left mastoid resection with a cochlear device in place. There is a left mastoid effusion. The right mastoid air cells are well pneumatized. Orbits: The bony orbits are grossly intact. IMPRESSION: There is no hemorrhage, mass effect, or evidence of acute territorial ischemia by CT criteria. ACT 112: Negative or not required by law. Electronically signed by: Landen Hopkins M.D. 02/23/2024 3:43 PM ECG Data Attestation: I personally reviewed and interpreted this ECG as follows: Indication: + SOB/dyspnea Rate (beats per minute): 95 Rhythm: + normal sinus and + other (Poor baseline but I suspect normal sinus rhythm with first-degree AV block) ECG Intervals/blocks: + Normal QRS and + Normal QT ECG Mascot: + Normal ECG ST segments: + Nonspecific ST abnormalities ECG Findings: no PACs or no PVCs Comparison ECG Date: from (02/01/2024) Change: no significant change MDM Narrative This patient comes in described above he was placed in room 8 1. He presented with shakes and cough at home there was concern he could be having a seizure in triage. We checked the blood sugar was 98 and his says been shaking at home I do not think it is likely a seizure. He does not seem to be postictal. I am more concerned about sepsis or other potential etiologies I did order CAT scan of his head however IV access was established a full cardiac and sepsis type workup was also obtained in relation to neurologic. He was reassessed frequently. He seemed to do well while he was here as far as hemodynamics. He was not shaking after we got him put in room 1 he was awake. His oxygen saturation however tends to be low I gave him a DuoNeb and we increase his oxygen I I did not listen to him again he continues to have rhonchorous breath sounds this may be more related to COPD so I gave him an albuterol/Atrovent neb over 1 hour. His that he did not tolerate BiPAP before. He was placed on oxime mask and seems very comfortable. He will need to be admitted and have consult with the [facility] team. He has received IV cefepime as well as IV fluids. Despite having a recent admission for COVID, his BioFire was negative including be negative for COVID. The patient did have some hypoxemia here which did improve with the albuterol. He also received additional IV 1 L fluid bolus as his lactic acid was elecvated. He will be admitted for further treatment and evaluation Continuous cardiac monitoring: Orders placed in EMR for continuous cardiac monitoring call upon my evaluation patient noted to be in normal sinus rhythm rate of 90 Impression & Plan Pneumonia, Hypoxemia, COPD exacerbation, Lab test negative for COVID-19 virus Discharge Plan Visit Data Chief Complaint: Fever Stated Complaint: FEVER, SHAKY ED Provider: Alejandro Ochoa Discharge Problem: Pneumonia, Hypoxemia, COPD exacerbation, Lab test negative for COVID-19 virus Patient Disposition: Admitted As Inpatient Discharge Instructions Interventions: ED Discharge Assessment Last Done: 02/23/24 17:12 Discharge Problem: Pneumonia Qualifiers: Pneumonia type: due to unspecified organism Laterality: right Lung location: l ower lobe of lung Qualified Code(s): J18.9 - Pneumonia, unspecified organism
[2024-02-23 15:08] LABS: Basophils # (auto) 0.04 K/uL (0.00-0.20); Basophils % (auto) 0.4 %; Eosinophils # (auto) 0.07 K/uL (0.00-0.50); Eosinophils % (auto) 0.7 %; Hematocrit (blood only) 43.4 % (42.0-52.0); Hemoglobin 14.8 g/dl (14.0-18.0); Immature Granulocytes # (auto) 0.03 K/uL (0.01-0.20); Immature Granulocytes % (auto) 0.3 %; Lymphocytes # (auto) 1.02 K/uL (1.20-3.40); Lymphocytes % (auto) 10.3 %; Mean Corpuscular Hemoglobin 32.5 pg (25.0-34.0); Mean Corpuscular Hgb Conc 34.1 g/dL (32.0-36.0); Mean Corpuscular Volume 95.2 fL (80.0-100.0); Mean Platelet Volume 10.9 fL (9.4-12.4); Monocytes # (auto) 0.49 K/uL (0.11-0.59); Neutrophils # (auto) 8.24 K/uL (1.40-6.50); Neutrophils % (auto) 83.3 %; Platelet Count 177 K/uL (130-400); RDW Coefficient of Variation 13.6 % (11.5-14.5); RDW Standard Deviation 47.8 fL (36.4-46.3); Red Blood Count 4.56 M/uL (4.70-6.10); White Blood Count 9.89 K/ul (4.8-10.8)
[2024-02-23] MEDS: SODIUM CHLORIDE 0.9% 250 ML IV ONE (15:32)
--- NOTE | 2024-02-23 15:32 | XRay Report ---
XR chest 1V portable CLINICAL HISTORY: Sepsis TECHNIQUE: Single frontal radiograph of the chest was obtained. Comparison: Prior chest radiograph 02/01/2024 FINDINGS: No lines and tubes are seen. The cardiomediastinal silhouette is normal. Mild airspace opacity is in the right lung base. No evidence of pleural effusion or pneumothorax. IMPRESSION: Airspace opacity is in the right lung base. This may represent atelectasis, pneumonia, and/or aspirat ion. ACT 112: Negative or not required by law. Electronically signed by: Richi Graves M.D. 02/23/2024 3:30 PM
[2024-02-23 15:35] LABS: Alanine Aminotransferase 9 U/L (7-52); Albumin Level 4.1 gm/dl (3.4-5.0); Alkaline Phosphatase 99 U/L (34-104); Anion Gap 11 (3-11); BUN Creatinine Ratio 5.7 (10-20); Bilirubin,Total 1.2 mg/dl (0.2-1.0); Blood Urea Nitrogen 6 mg/dl (6-23); Calcium 9.5 mg/dl (8.6-10.3); Carbon Dioxide 25 mmol/L (21-32); Chloride 102 mmol/L (98-107); Creatinine Clr Calc Pharmacy 60.9 ml/min; Est GFR (African American) 78.6 ml/min; Est GFR (Non-African American) 67.8 ml/min; Glucose 111 mg/dl (70-99(Fasting)); Magnesium 1.9 mg/dl (1.7-2.4); Sodium 138 mmol/L (136-145); Total Protein 7.7 gm/dl (6.0-8.3); Troponin I High Sensitivity 8.5 pg/ml (0-20)
[2024-02-23] MEDS: ALBUT/IPRATROP 3MG/0.5MG NEB 3 ML VIAL NEB STA (15:40)
--- NOTE | 2024-02-23 15:46 | CT Scan Report ---
CT SCAN OF THE BRAIN WITHOUT IV CONTRAST CLINICAL HISTORY: Seizure. COMPARISON STUDY: CT of the brain dated 02/01/2024. TECHNIQUE: Unenhanced axial CT scan of the brain is performed from the vertex to the skull base. A do se lowering technique was utilized adhering to the principles of ALARA. The skull base was scanned tw ice due to motion artifact. There is streak artifact from an electronic device overlying the left tem poral convexity. FINDINGS: Brain parenchyma: There is age-related involutional change noting minimal microangiopathic disease. T here is no hemorrhage, mass effect, or evidence of acute territorial ischemia by CT criteria. Wan-wh ite matter differentiation is preserved. No extra-axial fluid collection is seen. Ventricles, sulci, cisterns: Prominent secondary to involutional change. Intracranial vasculature: There is atherosclerotic calcification of the cavernous carotid and vertebr al arteries. Calvarium: Unremarkable. Sinuses and mastoids: There is moderate mucosal thickening within the ethmoid sinuses. Trace mucosal thickening is seen in the frontal and sphenoid sinuses. There is evidence of left mastoid resection w ith a cochlear device in place. There is a left mastoid effusion. The right mastoid air cells are wel l pneumatized. Orbits: The bony orbits are grossly intact. IMPRESSION: There is no hemorrhage, mass effect, or evidence of acute territorial ischemia by CT zabrina lopez. ACT 112: Negative or not required by law. Electronically signed by: Landen Hopkins M.D. 02/23/2024 3:43 PM
[2024-02-23] MEDS: CEFEPIME 2,000 MG in SYRINGE 0 ML IV STA (15:48)
[2024-02-23 16:15] LABS: Adenovirus PCR Not Detected (NotDetected); Bordetella parapertussis PCR Not Detected (NotDetected); Bordetella pertussis PCR Not Detected (NotDetected); Chlamydia pneumoniae PCR Not Detected (NotDetected); Coronavirus 229E PCR Not Detected (NotDetected); Coronavirus CoV-2 (COVID19)PCR Not Detected (NotDetected); Coronavirus HKU1 PCR Not Detected (NotDetected); Coronavirus NL63 PCR Not Detected (NotDetected); Coronavirus OC43PCR Not Detected (NotDetected); Human Metapneumovirus PCR Not Detected (NotDetected); Influenza A PCR Not Detected (NotDetected); Influenza B PCR Not Detected (NotDetected); Mycoplasma pneumoniae PCR Not Detected (NotDetected); Parainfluenza Virus 1 PCR Not Detected (NotDetected); Parainfluenza Virus 2 PCR Not Detected (NotDetected); Parainfluenza Virus 3 PCR Not Detected (NotDetected); Parainfluenza Virus 4 PCR Not Detected (NotDetected); Respiratory Syncytial VirusPCR Not Detected (NotDetected); Rhinovirus/Enterovirus PCR Not Detected (NotDetected)
[2024-02-23] MEDS: ALBUT/IPRATROP 3MG/0.5MG NEB 3 ML VIAL NEB ONE (16:16)
[2024-02-23 16:18] LABS: Bilirubin Direct 0.3 mg/dl (0-0.2); Potassium 3.3 mmol/L (3.5-5.1)
--- NOTE | 2024-02-23 16:21 | History & Physical Report ---
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 Recent COVID-19 infection 01/31/24 In ER initial T: 36.6C oral, P: 96, R: 25, BP 203/100, 90% on 3 L nasal cannula No leukocytosis. Procalcitonin:0.02 Lactate: 4.6--> 1.8 Negative BioFire respiratory panel CXR: RLL opacity In ER initially given 250 mL NSS, cefepime Obtain blood cultures Repeat vitals: P: 102, R: 29, BP 90/58, 92% on nebulizer treatment Additional 1 L NSS ordered ABG: pH: 7.2, pCO2: 41, pO2: 54, HCO3: 27, on 5 L oxygen Patient received 2 albuterol nebs in ER continues to be tachypneic, O2 sat 90% Start BiPAP Scheduled nebs, hypertonic saline nebs Cefepime, vancomycin CTA chest pending to R/O PE, further assess infiltrate, mucous plugging, etc IVF MRSA swab pending Incentive spirometry, flutter valve, Mucinex Urine Legionella pending Obtain sputum culture if able Pulmonology consult CBC, BMP in a.m. (5) Hypokalemia: Plan: K: 3.3 Replace and monitor (6) Chronic orthostatic hypotension: Plan: On midodrine (7) Tonsil carcinoma: (8) On tube feeding diet: Plan: S/P surgery, chemo, radiation. Feeding tube in place and NPO status Continue nutrition supplements through feeding tube (9) Hypertension: Plan: History labile blood pressures as well as orthostatic hypotension In past on hydralazine and clonidine (10) Hypothyroidism: Plan: Continue levothyroxine (11) Depression: Plan: Continue citalopram DVT Prophylaxis Heparin SQ Admit PCU Full Code as per discussion with pt, and pt's Follows with Dr Hart for routine care Pt was seen and care coordinated with Dr Rico. See addendum I spent a total of 80 minutes reviewing notes, outpatient records, labs, medication, coordinating, documenting and providing care for this patient excluding time spent in the performance of separately billed services. 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 History obtained from patient's as patient has difficulty talking secondary to history neck cancer and radiation. Inpatient chart reviewed and patient with recent hospitalization 01/31/2024 hypotension, asymptomatic COVID-19 with BPs improved during hospitalization. Readmitted 02/01/2024-02/03/2024 for generalized weakness, COVID-19 infection, COPD exacerbation. Patient's reports has had ongoing cough since recent hospital discharge. States he is unable to bring up phlegm with coughing. Does report sometimes seems to have posttussive emesis with "water" like consistency. States patient does not take anything by mouth. Denies other noted vomiting or diarrhea. She denies any noted fevers at home and states patient otherwise seems to be doing okay and had not had any noted shortness of breath or complaining of any chest pain. This morning states patient had sudden onset of full body shaking in which she was awake and alert during this episode. She states she attempted to take patient's temperature however her thermometer was broken and not working. She reports he felt hot to touch. She reports patient does not sleep all night and then during the day he sleeps. She feels that is why patient is sleeping lethargic today in ER. Denies noted LOC, hemoptysis. Further history and ROS unobtainable from patient currently as lethargic, very hard of hearing and difficult to understand speech. ( reports speech is at baseline for patient). Allergies Allergy/AdvReac Type Severity Reaction Status Date / Time levofloxacin Allergy Intermediate rash all Verified 02/23/24 15:14 over body sulfamethoxazole Allergy Intermediate ITCHING/HIVES Verified 02/23/24 15:14 WITH BACTRIM trimethoprim Allergy Intermediate ITCHING/HIVES Verified 02/23/24 15:14 WITH BACTRIM Nitrate Analogues AdvReac Severe DROP IN Verified 02/23/24 15:14 BP/UNCONSCIOUSNESS lisinopril AdvReac Intermediate ELEVATES Verified 02/23/24 15:14 B/P sertraline AdvReac Intermediate NOSE BLEEDS Verified 02/23/24 15:14 terazosin AdvReac Intermediate PRIAPRISM Verified 02/23/24 15:14 PER [facility] Home Medications Medication Instructions Recorded Confirmed Type citalopram 20 mg tablet 20 mg feeding tube QAM 05/07/18 02/23/24 History food supplemt, lactose-reduced 2 can feeding tube TID 05/07/18 02/23/24 History (Nutritional Drink oral liquid) latanoprost 0.005 % eye drops 1 drp OPB HS 01/30/19 02/23/24 History acetaminophen 500 mg tablet 1,000 mg feeding tube Q6H PRN Pain 03/06/21 02/23/24 History (Tylenol Extra Strength) levothyroxine 88 mcg tablet 88 mcg feeding tube QAM 04/06/21 02/23/24 History (Euthyrox) atorvastatin 40 mg tablet 40 mg feeding tube QAM 06/02/21 02/23/24 History albuterol sulfate 1.25 mg/3 mL 1.25 mg inhalation Q4H PRN 06/03/23 02/23/24 History solution for nebulization Shortness Of Breath Or Wheezing midodrine 10 mg tablet 10 mg PO TIDM 30 days #30 tabs 01/31/24 02/23/24 Rx Past Med/Surg History Problem List Pneumonia (Acute) On tube feeding diet Tonsil carcinoma (Unknown) RADIATION AND CHEMO Lab test negative for COVID-19 virus (Acute) COPD exacerbation (Acute) Hypoxemia (Acute) Hypokalemia (Acute) COVID-19 (Acute) Elevated lactic acid level (Acute) Cough (Acute) Hypotension (Acute) Acute bronchitis Chronic orthostatic hypotension COVID-19 (Acute) Head injury, closed, with brief LOC (Acute) Respiratory syncytial virus (RSV) infection (Acute) Acute respiratory failure with hypoxia (Acute) Bronchopneumonia Encounter for pre-operative examination Aspiration pneumonia (Acute) H/O malignant neoplasm of tonsil (Acute) Lactic acidosis Pneumonia (Acute) Hypoxemia (Acute) Sepsis (Acute) Lab test negative for COVID-19 virus (Acute) Acute hypokalemia (Acute) DVT prophylaxis Protein calorie malnutrition Hypokalemia Chronic bronchitis Ex-smoker Hypoxia (Acute) Influenza A (Acute) COVID-19 (Acute) Rigors (Acute) Confusion (Acute) Fever (Acute) SIRS (systemic inflammatory response syndrome) Blood pressure instability (Acute) [facility] Cardiology manages; currently using midodrine, and nitro PRN hypo/hypertension; per , cardiac workup wnl aside from BP changes Aspiration pneumonia hx - CAN NOT TAKE FOOD/LIQUIDS ORALLY Uses feeding tube Hypothyroidism Glaucoma Hypertension (Acute) Benign prostatic hyperplasia (Unknown) Chronic back pain Depression Gastroparesis COPD (chronic obstructive pulmonary disease) with emphysema H/O esophagogastroduodenoscopy (Unknown) WITH PLACEMENT PEG TUBE S/P arthroscopic knee surgery (Unknown) RT S/P colonoscopy (Unknown) Medical History Abnormal CT scan, neck 07/2022 [facility] - "7 mm lytic lesion within the C3 vertebral body." Per , outpt imaging since being d/c from hospital has r/o mets. History of recent hospitalization 07/2022 [facility] - pneumonia Slow to wake up after anesthesia Speech difficult to understand Hearing loss History of COVID-19 05/2021 treated for pneumonia at [facility]- 06/13/22 admitted to [facility] 06/2022with covid pneumonia, flu, and RSV 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 Degenerative disc disease Osteoarthritis GERD (gastroesophageal reflux disease) Anxiety Asthma rare use of PRN inh Orthostatic hypotension Tonsil carcinoma (Unknown) RADIATION AND CHEMO Surgical History History of radical neck dissection S/P percutaneous endoscopic gastrostomy (PEG) tube placement History of neck surgery LUMPECTOMY History of tooth extraction Family History Brother Family history of diabetes mellitus Social History Smoking Status: Former smoker Tobacco Type: Cigarettes Smoking End Date: 40 years ago; Second Hand Exposure: No; Do You Dip or Chew Tobacco: No; Tobacco Cessation Education Requested by Patient: No Hx Alcohol Use: Yes Alcohol type: beer Hx Substance Use: No Preferred Language: Polish 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 Ability: Effective 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 Ability 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, 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 Ring Sewer Required: No Beliefs That Will Affect Care: None marital status: Current Living Situation: Spouse Current Living Situation Comment: Personal Home Other Information That Helps Us Care for You: No Feels Safe at Home: Yes Safety Concerns: Feels Safe At This Time Assistive Devices: Glasses Assistive Devices Comment: cohlear implants Physical Exam Physical Exam: General: +ill appearing, lethargic elderly male Head: normocephalic, atraumatic Eyes: PERRL, EOM's intact, conjunctiva non-injected, anicteric ENT: normal inspection external ears, nose, mucous membranes moist Neck: supple, trachea midline Lungs: +tachypneic RR: 28 on nebulizer treatment, O2 sat 92%, +coarse breath sounds throughout CV: tachycardia, rate 110, regular rhythm, no pretibial edema Abd: normal BS, soft, no apparent tenderness to palpation Ext: no cyanosis, no apparent calf tenderness Neuro: +lethargic, arouses with light touch and shakes head "yes or no" and dozes back off, +generalized weakness Skin: warm, dry Results & Data Results & Data Vital Signs (Past 12 Hours) Vital Signs Temp Pulse Pulse Resp BP BP Pulse Ox 02/23/24 16:10 100 H 30 H 10 L 02/23/24 16:00 101 H 28 H 124/70 90 02/23/24 15:57 101 H 29 H 90 02/23/24 15:34 90 30 H 124/75 91 02/23/24 15:27 94 H 02/23/24 15:11 91 H 33 H 200/94 H 92 02/23/24 15:11 91 H 33 H 91 02/23/24 14:55 96 H 25 H 203/100 H 90 02/23/24 14:30 36.6 C 64 22 140/103 H 98 O2 Del Method O2 Flow Rate 02/23/24 16:10 Oxymask 89 02/23/24 16:00 Nasal Cannula 6 02/23/24 15:57 Nasal Cannula 5 02/23/24 15:34 Nasal Cannula 5 02/23/24 15:27 02/23/24 15:11 Nasal Cannula 3 02/23/24 15:11 Nasal Cannula 3 02/23/24 14:55 Nasal Cannula 3 02/23/24 14:30 Room Air Laboratory Results Short CBC 02/23/24 Range/Units 14:51 WBC 9.89 (4.8-10.8) K/ul Hgb 14.8 (14.0-18.0) g/dl Hct 43.4 (42.0-52.0) % Plt Count 177 (130-400) K/uL BMP 02/23/24 02/23/24 14:51 15:42 Sodium 138 Potassium TNP 3.3 L Chloride 102 Carbon Dioxide 25 BUN 6 Creatinine 1.06 Glucose 111 H Calcium 9.5 Liver Function 02/23/24 02/23/24 Range/Units 14:51 15:42 Total Bilirubin 1.2 H (0.2-1.0) mg/dl Direct Bilirubin TNP 0.3 H AST TNP 16 ALT 9 (7-52) U/L Alkaline Phosphatase 99 (34-104) U/L Albumin 4.1 (3.4-5.0) gm/dl Diagnostic Findings Chest X-Ray 02/23/24 14:55 XR chest 1V portable CLINICAL HISTORY: Sepsis TECHNIQUE: Single frontal radiograph of the chest was obtained. Comparison: Prior chest radiograph 02/01/2024 FINDINGS: No lines and tubes are seen. The cardiomediastinal silhouette is normal. Mild airspace opacity is in the right lung base. No evidence of pleural effusion or pneumothorax. IMPRESSION: Airspace opacity is in the right lung base. This may represent atelectasis, pneumonia, and/or aspiration. ACT 112: Negative or not required by law. Electronically signed by: Richi Graves M.D. 02/23/2024 3:[address] 02/23/24 14:56 CT SCAN OF THE BRAIN WITHOUT IV CONTRAST CLINICAL HISTORY: Seizure. COMPARISON STUDY: CT of the brain dated 02/01/2024. TECHNIQUE: Unenhanced axial CT scan of the brain is performed from the vertex to the skull base. A dose lowering technique was utilized adhering to the principles of ALARA. The skull base was scanned twice due to motion artifact. There is streak artifact from an electronic device overlying the left temporal convexity. FINDINGS: Brain parenchyma: There is age-related involutional change noting minimal microangiopathic disease. There is no hemorrhage, mass effect, or evidence of acute territorial ischemia by CT criteria. Wan-white matter differentiation is preserved. No extra-axial fluid collection is seen. Ventricles, sulci, cisterns: Prominent secondary to involutional change. Intracranial vasculature: There is atherosclerotic calcification of the cavernous carotid and vertebral arteries. Calvarium: Unremarkable. Sinuses and mastoids: There is moderate mucosal thickening within the ethmoid sinuses. Trace mucosal thickening is seen in the frontal and sphenoid sinuses. There is evidence of left mastoid resection with a cochlear device in place. There is a left mastoid effusion. The right mastoid air cells are well pneumatized. Orbits: The bony orbits are grossly intact. IMPRESSION: There is no hemorrhage, mass effect, or evidence of acute territorial ischemia by CT criteria. ACT 112: Negative or not required by law. Electronically signed by: Landen Hopkins M.D. 02/23/2024 3:43 PM Supervising Physician Co-Signing Physician Notes Attending Addendum: Case reviewed with the advanced practitioner. I have personally performed a history and physical examination on the patient. I have reviewed the advanced practitioner's documentation on the date of service referenced in note, and I agree with, and take responsibility for the plan of care. please refer to her notes for full details patient seen and examined, records reviewed by myself as well on exam, patient Seen resting in bed, drowsy, not in distress but somewhat tachypneic no other symptoms VS noted and reviewed Mostly sleeping , not in distress, speaks in sentences with no effort nor accessory muscle use normal rate, regular rhythm, no murmurs Mild rhonchi bilaterally non distended, soft, nontender no bipedal edema, erythema, warmth no neuro deficits all labs, imaging noted and reviewed ASSESSMENT AND PLAN 72-year-old male with history of tonsillar carcinoma, status post PEG tube placement, hypertension, admitted 2 weeks ago for COVID, presenting with shortness of breath and hypoxia. Sepsis Acute hypoxic respiratory failure secondary to bilateral lower lobe pneumonia Admitted 2 weeks ago with COVID [address] chest: No PE Positive bilateral lower lobe consolidation Bio fire negative Vancomycin and Cefepime IV Nebs [id number] Pulm consult other diagnoses and plan of care as per advanced practitioner's notes Remigio Rico MD (9) Hypertension Hypertension type: unspecified Qualified Code(s): I10 - Essential (primary) hypertension
[2024-02-23 16:23] LABS: Base Excess ABG 1.9 mEq/L (-9-1.8); HCO3 ABG 27 mmol/L (19-24); Oxygen Saturation ABG 91.7 % (90-95); PCO2 ABG 41 mmHg (35-46); PO2 ABG 54 mmHg (80-95); pH ABG 7.42 (7.35-7.45)
[2024-02-23 16:39] LABS: Allen Test Pos (Pos)
[2024-02-23] MEDS: SODIUM CHLORIDE 0.9% 1,000 ML IV ONE ×2 (16:43→18:16)
[2024-02-23] MEDS ORDERED: VANCOMYCIN CONSULT ACTIVE PRN ×2 (16:51→18:27)
[2024-02-23] MEDS ORDERED: VANCOMYCIN HCL 1,750 MG in SODIUM CHLORIDE 0.9% 500 ML IV ONE (16:51)
[2024-02-23] MEDS: OPTIRAY 320 125ml IV ONE (17:27)
[2024-02-23] MEDS: VANCOMYCIN HCL 2,250 MG in SODIUM CHLORIDE 0.9% 500 ML IV STA (18:15)
[2024-02-23] MEDS: POTASSIUM CHLORIDE / WTR 10 MEQ/100 ML PLCT IV ONE (18:16)
--- NOTE | 2024-02-23 18:19 | CT Scan Report ---
CT ANGIOGRAM OF THE CHEST CLINICAL HISTORY: Sepsis. COMPARISON STUDY: Prior chest CT scans, most recently dated 01/20/1824. Chest x-ray dated 02/23/2024. TECHNIQUE: Following the IV administration of 116 cc of Optiray 320, CT angiogram of the chest was pe rformed from the upper abdomen to the thoracic inlet utilizing the pulmonary embolus protocol. Images are reviewed in the axial, sagittal, and coronal planes. 3-D MIPS images are created and assessed. I V contrast was administered without complication. A dose lowering technique was utilized adhering to the principles of ALARA. Examination is significantly degraded by motion artifact, as well as by str eak artifact from the arms which could not be elevated above the chest. CT DOSE: 991.46 mGy.cm FINDINGS: Thyroid: Atrophic. Thoracic aorta: There is atherosclerotic calcification of the thoracic aorta, which is normal in viviana efra and demonstrates standard 3-vessel arch anatomy. No dissection is seen. Pulmonary vasculature: The pulmonary trunk is normal in caliber. There are no filling defects identif ied in main, lobar, or proximal segmental pulmonary branches to suggest pulmonary embolus. Evaluation of the peripheral branches is degraded by motion artifact. Heart: The heart is normal in size and without pericardial effusion. There are coronary artery calcif ications. Lungs and pleural spaces: Evaluation of the lung parenchyma is significantly degraded by motion artif act. There is dependent airspace consolidation. No pleural effusion is identified. The trachea and ce ntral airways appear clear. Fibrotic change is seen at the apices. Mediastinum: Mildly enlarged mediastinal lymph nodes are again noted. A subcarinal node on image #127 measures 3.0 x 1.9 cm. AP window nodes measure up to 12 mm short axis. Elayne: Clear. Axillae: There is no axillary lymphadenopathy. Upper abdomen: The partially visualized gallbladder is distended. The partially imaged upper abdomina l viscera is otherwise grossly unremarkable. Skeletal structures: The skeletal structures are osteopenic. Degenerative change and hyperkyphosis is noted in the thoracic spine. No lytic or blastic bony lesions are seen. IMPRESSION: 1. Significantly streak and motion compromised examination. 2. There is no evidence of central pulmonary embolus in the main, lobar, or proximal segmental pulmon swati arteries. 3. Dependent airspace consolidation at both lung bases likely represents pneumonia/aspiration pneumon itis. Clinical correlation will be required and radiographic follow-up to resolution is recommended. 4. There are mildly enlarged mediastinal lymph nodes, which have modestly increase in size from 2023. 5. Additional findings as above. ACT 112: Negative or not required by law. Electronically signed by: Landen Hopkins M.D. 02/23/2024 6:17 PM
[2024-02-23] MEDS ORDERED: PROMETHAZINE 6.25 MG/50.25 ML BAG IV PRN (18:27)
[2024-02-23] MEDS ORDERED: ACETAMINOPHEN SUSP 325 MG/10.15 ML UDC PEG PRN (18:27)
[2024-02-23] MEDS ORDERED: ACETAMINOPHEN 1,000 MG/100 ML VIAL IV PRN (18:28)
[2024-02-23] MEDS: SODIUM CHLOR 7% 4 ML NEB NEB SCH (19:41)
[2024-02-23] MEDS: LEVALBUTEROL 1.25 MG/3 ML NEB NEB SCH (19:41)
[2024-02-23] MEDS: IPRATROPIUM BROMIDE NEB SOLN 0.02% 0.5MG/2.5ML VIAL NEB SCH (19:42)
[2024-02-23] MEDS: NSS + 20MEQ KCL 20 MEQ/1,000 ML BAG IV SCH (20:09)
[2024-02-23] MEDS: LATANOPROST 0.005% OP SOLN 2.5 ML BTL OPB SCH (20:12)
[2024-02-23] MEDS: MIDODRINE HCL 10 MG TAB PO SCH (20:13)
[2024-02-23] MEDS: guaiFENesin 600 MG TABCR PO SCH (20:13)
[2024-02-23] MEDS: HEPARIN SOD 5,000 UNIT/0.5 ML VIAL SQ SCH (22:20)
[2024-02-23] MEDS: CEFEPIME 2,000 MG in SYRINGE 0 ML IV SCH (22:20)
--- OUTSIDE RECORDS SUMMARY | 2024-02-23 22:29 | External Medical Summary | Summary of Care ---
Author Name Unknown Organization [facility] Address [address] [place] [address] Phone [phone] Care Team Providers Care Retail Brand Ambassador Name Role Phone Tanner CANTU MD, Sanjiv Moser Primary Care Provider [phone] Reason for Visit * Reason Onset Date Comments Other 02/18/2024 Encounter Details Date Type Department Care Team (Late st Contact Info) Description 02/18/2024 Telephone Care Coordination and Integration [address], [place] [id number] Ana Luisa Yusuf OSA [address] [place] [address] Other Allergies Active Allergy Reactions Criticality Noted Date Comments Sulfamethoxazole-Trimethoprim Hives Medium 2016 Levofloxacin Rash Low 03/03/2017 Lisinopril 03/12/2021 Raises bp Nitrates, Organic 09/07/2000 Unconsciousness Sertraline Low 02/09/2019 Other reaction(s): NOSE BLEEDS Sulfamethoxazole Itching High 02/09/2019 Terazosin 12/08/2001 priaprism Trimethoprim Itching High 02/09/2019 documented as of this encounter (statuses as of 02/18/2024) Medications Medication Sig Dispensed Refills Start Date End Date Status Acetaminophen 500 MG Oral Capsule Administer 2 Capsules into G tube every 6 hours as needed for Pain, Moderate. 03/10/2021 Active Glucose 40 % Oral Gel (Glutose 15) 01/19/2021 Active Aspirin EC 81 MG Oral Tablet Delayed Release Take 1 Tab by mouth daily. 90 Tab 3 04/24/2021 Active Formoterol Fumarate 20 MCG/2ML Inhalation Nebulization [...] 1 Each 5 06/09/2023 Active Dexcom G7 Pacu Rn DeviceIndications:Hy poglycemia Use 1 Units as directed [...] Oral Tablet (Lipitor)Indications :Coronary artery disease involving [place] coronary artery of [place] heart without angina pectoris Take 1 Tablet [...] > 180. 90 Tablet 11 01/19/2024 Active hydrALAZINE HCl 25 MG Oral Tablet (Apresoline) take 1 tablet by mouth three times a day; hold for SBP < 140 90 Tablet 01/31/2024 Active Midodrine HCl 10 MG Oral Tablet (Proamatine) take 1 tablet by mouth three times daily with meals for 30 days 90 Tablet 01/31/2024 Active Azithromycin 250 MG Oral Tablet (Zithromax) take 2 tablets by mouth daily for 1 2 Tablet 02/03/2024 Active documented as of this encounter (statuses as of 02/18/2024) Active Problems Problem Noted Date Diagnosed Date Coronary artery disease invo lving [place] coronary artery of [place] heart without angina pectoris 10/25/2023 MRI contraindicated [...] as of this encounter (statuses as of 02/18/2024) Resolved Problems Problem Noted Date Diagnosed Date [...] 10/23/2008 02/16/2013 ACTIVE CASE MANAGEMENT-Yanet Landa Rn- [phone] 09/28/2007 02/16/2008 Malignant neoplasm soft tissue head [...] as of this encounter (statuses as of 02/18/2024) Immunizations Name Administration Dates Next Due COVID-19 mRNA, LNP-s, No Pre serve, 2-Dose Series (SnapAppointments) 02/18/2022,10/11/2020,09/13/2020 Pneumococcal Conjugate Vacc, 13 Valent (Prevnar) [...] encounter Miscellaneous Notes * Telephone Encounter - Ana Luisa Yusuf OSA - 02/18/2024 10:46 AM EDT Recieved a PC from person in scheduling stating she has the member on the backline retutnuign a call from his CM. CM is currently in a meeting and unavailable. I let the rep know I would place a message through [facility] CM to return the call as soon as she is able. Members best contact number is [phone] documented in this encounter Plan of Treatment Upcoming Encounters Date Type Department Care Team (Late st Contact Info) Description 02/25/2024 2:00 PM EDT Office Visit [facility] [address] [address] Marta Moran MD [address] [place] [id number] Flash Cortes Nurse [address] [place] [id number] Jarred Corteser [address] [address] 05/25/2024 10:20 AM EST Office Visit Neph[address] [place] [address] Jayden Vasques MD [address] [place] [address] 09/08/2024 1:40 PM EST Office Visit Nephrology, [facility] [address] [place] [address] Jayden Vasques MD [address] [place] [id number] Scheduled Procedures Name Priority Associated Diagnoses Date/Ti [...] ASSESSMENT COMPLETED IN PAST YEAR FOR COPD 02/09/2025 02/10/2024 Colonoscopy 08/08/2026 08/08/2021, 03/19, 11/13/2014, Additional history [...] this encounter Medical Devices Implanted Type Area Bilingual Counter Sales Retail Device Identifier Shelf Expiration Date Model / Serial / Lot [id number] - [id number] Implanted:[place]ty : 1 on 09/26/2007 at [place] [facility] [place] - Human Right: Neck [employer]O 10/17/2008 [id number] / / [id number] Description:alloderm 3x7cm Elect Nucleus Slim Str [id number] - [id number] Implanted:Qty : 1 on 12/21/2022 by Ollie Borja MD [place] [facility] [place]: Ear [employer] 11/04/2024 [id number] / / [id number] documented as of this encounter Advance Directives * Full Code (Latest Code Status on File) Date Activated Date Inactivated Comments 09/26/2007 1:43 PM 09/27/2007 5:30 PM * Full Code Date Activated Date Inactivated Comments 08/09/2007 1:38 PM 08/12/2007 5:16 PM Care Teams Retail Brand Ambassador Relationship Specialty Start Date End Date Sanjiv Hart III, MD [address] [place] [address] PCP - General Family Medicine 09/09/18 documented as of this encounter
--- OUTSIDE RECORDS SUMMARY | 2024-02-23 22:30 | External Medical Summary | Summary of Care ---
Author Name Unknown Organization [facility] Address [address] [place] [address] Phone [phone] Care Team Providers Care Chief Operating Engineer Name Role Phone Tanner CANTU MD, Sanjiv Moser Primary Care Provider [phone] Encounter Details Date Type Department Care Team (Late st Contact Info) Description 02/07/2024 Orders Only Outcomes Research Department [address] [place] [address] Darcy De La Fuente CHRA MyCode Research Other*[id number] Allergies Active Allergy Reactions Criticality Noted Date Comments Sulfamethoxazole-Trimethoprim Hives Medium 2016 Levofloxacin Rash Low 03/03/2017 Lisinopril 03/12/2021 Raises bp Nitrates, Organic 09/07/2000 Unconsciousness Sertraline Low 02/09/2019 Other reaction(s): NOSE BLEEDS Sulfamethoxazole Itching High 02/09/2019 Terazosin 12/08/2001 priaprism Trimethoprim Itching High 02/09/2019 documented as of this encounter (statuses as of 02/07/2024) Medications Medication Sig Dispensed Refills Start Date [...] 1 Each 5 06/09/2023 Active Dexcom G7 Janitorial Account Manager DeviceIndications:Hy poglycemia Use 1 Units as directed daily. 1 Each 2 06/09/2023 Active Boost Plus Oral LiquidIndications:Dy sphagia,At high risk for aspiration Take 2 cans 4 times daily @ 7am,11 am,3 pm, 7 pm 720 mL 1 07/28/2023 Active Albuterol Sulfate 1.25 MG/3ML Inhalation Nebulization SolutionIndications: Wheezing,Bronchitis, complicated,COPD exacerbation (HCC),COPD, group C, by GOLD 2017 classification ([facility]) Inhale 1 vial via nebulizer every 4 [...] Oral Tablet (Lipitor)Indications :Coronary artery disease involving [place] coronary artery of [place] heart without angina pectoris Take 1 Tablet [...] as of this encounter (statuses as of 02/07/2024) Active Problems Problem Noted Date Diagnosed Date Coronary artery disease invo lving [place] coronary artery of [place] heart without angina pectoris 10/25/2023 MRI contraindicated [...] as of this encounter (statuses as of 02/07/2024) Resolved Problems Problem Noted Date Diagnosed Date [...] 10/23/2008 02/16/2013 ACTIVE CASE MANAGEMENT-Yanet Landa Rn- [phone] 09/28/2007 02/16/2008 Malignant neoplasm soft tissue head [...] as of this encounter (statuses as of 02/07/2024) Immunizations Name Administration Dates Next Due COVID-19 mRNA, LNP-s, No Pre serve, 2-Dose Series (resmio) 02/18/2022,10/11/2020,09/13/2020 Pneumococcal Conjugate Vacc, 13 Valent (Prevnar) [...] Care Team (Late st Contact Info) Description 02/10/2024 9:00 AM EDT Office Visit Family Practice [facility] [place] [address] [place] [address] Walter Kwan MD [address] [place] [address] [place] [address] 02/25/2024 2:00 PM EDT Office Visit [facility] [address] [address] Marta Moran MD [address] [place] [address] [place] [address] [place] [address] Photographer Sophia [address] [address] 05/25/2024 10:20 AM EST Office Visit Nephrology [address] [place] [phone] Jayden Vasques MD [address] [facility] [place] [address] 09/08/2024 1:40 PM EST Office Visit [facility] [place] [address] [place] [address] Jayden Vasques MD [address] [place] [place] [address] Scheduled Orders Name Type Priority Associated Diagnoses Orde r Schedule MYCODE SUBSEQUENT ADULT Lab Routine MyCode Research Other*[id number] Every 6 Months for 2 Occurrences starting 02/07/2024 until 02/26/2025 Scheduled Procedures Name Priority Associated Diagnoses Date/Ti me COLONOSCOPY FLEXIBLE PROXIMAL DIAGNOSTIC Recall History of colon polyps Health Maintenance Due Date Last Done Comments Alpha-1 Antitrypsin 1965 *ADVANCE DIRECTIVE NOT ON FILE 05/06/2019 DTaP,Tdap,and Td Vaccines (2 - Td or Tdap) 10/01/2021 10/02/2011, 07/26/2003, 07/19/1992 COVID-19 Vaccine (4 - 2023-24 season) 2023 02/18/2022, 10/11/2020, 09/13/2020 *CXR OR CT FOR COPD EVER 01/30/2024 Depression Monitoring 02/03/2024 02/02/2023 Influenza Vaccine (FLU [...] this encounter Medical Devices Implanted Type Area Financial Coach Device Identifier Shelf Expiration Date Model / Serial / Lot [id number] - [id number] Implanted:Qty : 1 on 09/26/2007 at OR [facility] Tissue - Human Right: Neck [employer] MARIANO 10/17/2008 [id number] / / [id number] Description:alloderm 3x7cm Elect Nucleus Slim Str [id number] - [id number] Implanted:Qty : 1 on 12/21/2022 by Ollie Borja MD at OR [facility] Left: Ear [employer] 11/04/2024 [id number] / / [id number] documented as of this encounter Visit Diagnoses Diagnosis MyCode Research Other*[id number] documented in this encounter Advance Directives * Full Code (Latest Code Status on File) Date Activated Date Inactivated Comments 09/26/2007 1:43 PM 09/27/2007 5:30 PM * Full Code Date Activated Date Inactivated Comments 08/09/2007 1:38 PM 08/12/2007 5:16 PM Care Teams Chief Operating Engineer Relationship Specialty Start Date End Date Sanjiv Hart III, MD [address] [facility] [place] [address] PCP - General Family Medicine 09/09/18 documented as of this encounter
--- OUTSIDE RECORDS SUMMARY | 2024-02-23 22:30 | External Medical Summary | Summary of Care ---
Author Name Unknown Organization [facility] Address [address] [place] [address] Phone [phone] Care Team Providers Care Knitting Teacher Name Role Phone Tanner CANTU MD, Sanjiv Moser Primary Care Provider [phone] Reason for Visit * Reason Comments Hospital Follow-Up Encounter Details Date Type Department Care Team (Late st Contact Info) Description 02/10/2024 9:00 AM EDT Office Visit Family [address] [place] [address] Walter Kwan MD [address] [place] [address] [place] [address] COVID-19*; Acquired hypothyroidism; HTN, goal below 130/80 Allergies Active Allergy Reactions Criticality Noted Date Comments Sulfamethoxazole-Trimethoprim Hives Medium 2016 Levofloxacin Rash Low 03/03/2017 Lisinopril 03/12/2021 Raises bp Nitrates, Organic 09/07/2000 Unconsciousness Sertraline Low 02/09/2019 Other reaction(s): NOSE BLEEDS Sulfamethoxazole Itching High 02/09/2019 Terazosin 12/08/2001 priaprism Trimethoprim Itching High 02/09/2019 documented as of this encounter (statuses as of 02/10/2024) Medications Medication Sig Dispensed Refills Start Date End Date Status Acetaminophen 500 MG Oral Capsule Administer 2 Capsules into G tube every 6 hours as needed for Pain, Moderate. 1 Active Glucose 40 % Oral Gel (Glutose 15) 1 Active Aspirin EC 81 MG Oral Tablet Delayed Release Take 1 Tab by mouth daily. 90 Tab 3 1 Active Formoterol Fumarate 20 MCG/2ML Inhalation Nebulization SolutionIndications :Unspecified chronic bronchitis (HCC) Inhale 2 mL by mouth in the morning and 2 mL before bedtime. 120 mL 5 2 Active OneTouch Ultra In Vitro Strip (Glucose Blood)Indications:H ypoglycemia USE DIRECTED FOUR TIMES A DAY NEEDED FOR HYPERGLYCEMIA (HIGH SUGAR). DX:E11.9 100 Strip 5 3 Active Dexcom G7 SensorIndications:H ypoglycemia Use 1 Units as directed daily. 1 Each 5 3 Active Dexcom G7 Lining Machine Operator DeviceIndications:H ypoglycemia Use 1 Units as directed [...] Oral Tablet (Lipitor)Indication s:Coronary artery disease involving [place] coronary artery of [place] heart without angina pectoris Take 1 Tablet [...] the morning. 90 Tablet 1 4 Active cloNIDine HCl 0.1 MG Oral Tablet (Catapres)Indicatio ns:HTN, goal below 150/90 Take 1 Tablet by mouth in the morning and 1 Tablet at noon and 1 Tablet before bedtime. Take when BP > 180. 90 Tablet 11 4 Active hydrALAZINE HCl 25 MG Oral Tablet (Apresoline) take 1 tablet by mouth three times a day; hold for SBP < 140 90 Tablet 4 Active Midodrine HCl 10 MG Oral Tablet (Proamatine) take 1 tablet by mouth three times daily with meals for 30 days 90 Tablet 4 Active Azithromycin 250 MG Oral Tablet (Zithromax) take 2 tablets by mouth daily for 1 2 Tablet 4 Active Bljewor-Jlorxw-Bekk l Pertussis 5-2.5-18.5 LF-MCG/0.5 Suspension Prefilled Syringe (Boostrix) Inject 0.5 mL into a large muscle once for 1 dose. As directed 0.5 mL 4 02/10/20 24 Discontinu ed(Patient preference /discontin uation) documented as of this encounter (statuses as of 02/10/2024) Active Problems Problem Noted Date Diagnosed Date Coronary artery disease invo lving [place] coronary artery of [place] heart without angina pectoris 10/25/2023 MRI contraindicated [...] as of this encounter (statuses as of 02/10/2024) Resolved Problems Problem Noted Date Diagnosed Date [...] 10/23/2008 02/16/2013 ACTIVE CASE MANAGEMENT-Yanet Landa Rn- [phone] 09/28/2007 02/16/2008 Malignant neoplasm soft tissue head [...] as of this encounter (statuses as of 02/10/2024) Immunizations Name Administration Dates Next Due COVID-19 mRNA, LNP-s, No Pre serve, 2-Dose Series (AGELON ?) 02/18/2022,10/11/2020,09/13/2020 Pneumococcal Conjugate Vacc, 13 Valent (Prevnar) [...] Sign Reading Time Taken Comments Blood Pressure 164/92 02/10/2024 9:00 AM EDT Pulse 74 02/10/2024 8:54 AM EDT Temperature 36.4 C (97.6 F) 02/10/2024 8:54 AM ED T Respiratory Rate 16 02/10/2024 8:54 AM EDT Oxygen Saturation 98% 02/10/2024 8:54 AM EDT Inhaled Oxygen Concentration - - Weight 80.8 kg (178 lb 3 oz) 02/10/2024 8:54 AM EDT Height - - Body Mass Index 24.86 10/25/2023 9:55 AM EDT documented in this encounter Progress Notes * Walter Kwan MD - 02/10/2024 9:03 AM EDT Rodney was admitted 01/29 to 01/30 for Covid and a fall, then again 01/31 to 02/02 for hypotension and COPD. The issue is he can be high or low at home. They did get an arm cuff for use. He still has a productive cough. He is really hard of hearing. They like bingo. They have parameters over when to use which med. says it seems that his Bloodpressure was better when he was not taking the levothyroxine. 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, moderate stage Moderate episode of recurrent major depressive disorder (HCC) ANDREA (generalized anxiety disorder) Esophageal stenosis COPD, group C, by GOLD 2017 classification ([facility]) Acquired hypothyroidism Dry eye syndrome due to meibomian gland dysfunction 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 History of 2019 novel coronavirus disease (COVID-19) Protein-calorie malnutrition (HCC) MRI contraindicated due to metal implant Coronary artery disease involving [place] coronary artery of [place] heart without angina pectoris Past Medical History: Diagnosis Date Abnormal involuntary movement Asthma, severity to be determined Backache surgery with Dr Latif Chronic constipation COPD exacerbation (HCC) history COVID-19 01/30/2024 [facility] Depressive disorder, not elsewhere classified Esophageal reflux HTN, goal below 130/80 01/17/2007 Hyperplasia of prostate without lower urinary tract symptoms (LUTS) INFORMATION cancer of tonsil MRI contraindicated due to metal implant 02/02/2023 Past Surgical History: Procedure Laterality Date ACEL DERMAL A-GRAFT,HEAD/GEN/H/F,100 SQ CM 09/26/2007 ACELLULAR DERMAL REPLACEMENT FACE SCALP ORBITS GENITALS HAND FOOT 100SQ performed by ASHLEE FLORES at [facility] COLONOSCOPY, DIAGNOSTIC (RECTUM) 11/27/2008 normal, repeat in 10 yrs COLONOSCOPY, DIAGNOSTIC (RECTUM) 11/14/2014 normal bx, poor prep, repeat 1 yr/inpt [facility] COLONOSCOPY, DIAGNOSTIC (RECTUM) 04/04/2019 adenomatous polyp, repeat 5 yrs/[facility] COLONOSCOPY, DIAGNOSTIC (RECTUM) 08/08/2021 adenomatous polyp, repeat 5 yrs / [facility] COLORECTAL CANCER SCREEN;W/FLE 02/20/1997 WNL to 50cm DENTAL SURGERY PROCEDURE NEC Dental Surgery Procedure EGD, FLEXIBLE, DIAGNOSTIC 04/08/2010 continue present meds EGD, FLEXIBLE, DIAGNOSTIC 05/29/2013 UPPER GI ENDOSCOPY DIAGNOSTIC performed by Antonio Trinidad MD at ENDOSCOPY [facility] EGD, FLEXIBLE, DIAGNOSTIC 11/15/2014 PEG replacement, eso stricture, bx shows lymphocyte infiltrate /[facility] EGD, FLEXIBLE, DIAGNOSTIC 05/20/2016 PEG replacement/[facility] EGD, FLEXIBLE, DIAGNOSTIC 01/06/2018 PEG replaced/[facility] EGD, FLEXIBLE, DIAGNOSTIC 02/09/2019 esophageal stenosis, PEG replaced / [facility] EGD, FLEXIBLE, DIAGNOSTIC N/A 09/04/2021 intact gastrostomy with patent G tube present, dilated/successful completion of video capsule enteroscope/ESOPHAGOGASTRODUODENOSCOPY (EGD), FLEXIBLE, TRANSORAL, DIAGNOSTIC performed by Gabe Saha MD at OR [facility] EGD, FLEXIBLE, DIAGNOSTIC 08/08/2021 normal / [facility] EGD, FLEXIBLE, DIAGNOSTIC 05/16/2021 UES stenosis / [facility] EGD, FLEXIBLE, INSERT WIRE, PASS DILATOR 04/12/09 DONE PATH PENDING , DILATION DONE EGD, FLEXIBLE, PLACE GASTRO TUBE N/A 10/12/2022 [facility], EGD- Peg tube placed. EGD, FLEXIBLE, W/BIOPSY 04/12/09 DONE mild stomach irritation IMPLANT COCHLEAR DEVICE Left 12/21/2022 COCHLEAR DEVICE IMPLANTATION WITH OR WITHOUT MASTOIDECTOMY performed by Ollie Borja MD at [facility] INJECT/TREAT LUMBAR SPINE LESION spur removal IR BIOPSY 10/02/2019 KNEE ARTHROSCOPY, DIAGNOSTIC Knee Scope,Diagnostic OTHER 09/26/2007 right tonsil carcinoma with neck mets REMOVAL OF NECK LYMPH NODES 09/26/2007 CERVICAL LYMPHADENECTOMY MODIFIED RADICAL NECK DISSECTION performed by ASHLEE FLORES at [facility] STRESS TREADMILL 12/2001 wnl Review of patient's allergies indicates: Allergen Reactions Sulfamethoxazole Itching Trimethoprim Itching Bactrim [Sulfamethoxazole-Trimethoprim] Hives Lisinopril Raises bp Nitrates, Organic Unconsciousness Terazosin priaprism Levaquin [Levofloxacin] Rash Sertraline Other reaction(s): NOSE BLEEDS Social History Socioeconomic History Marital status: Spouse name: Letty Number of children: 1 Years of education: 12 Highest education level: Not on file Occupational History 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 Tobacco Use Smoking status: Former Current packs/day: 0.00 Average packs/day: 0.5 packs/day for 5.0 years (2.5 ttl pk-yrs) Types: Cigarettes Start date: 06/18/1974 Quit date: 06/18/1979 Years since quittin.6 Smokeless tobacco: Never Vaping Use Vaping status: Never Used Substance and Sexual Activity Alcohol use: Not Currently Alcohol/week: 1.0 standard drink of alcohol Types: 1 12 oz of beer per week Comment: 1 drink a day Drug use: No Sexual activity: Not Currently Partners: Female Other Topics Concern Service No [...] Resource Strain: Not on file Food Insecurity: No Food Insecurity (02/19/2020) Hunger Vital Sign Worried About Running Out of Food in the Last Year: Never true Ran Out of Food in the Last Year: Never true Transportation Needs: Not on file Social Connections: Unknown (01/04/2024) Social Connections How often do you feel lonely or isolated from those around you? (Adult - for ages 18 years and over): Not on file Housing Stability: Not on file Current Outpatient Medications Medication Sig Dispense Refill Acetaminophen 500 MG Oral Capsule Administer 2 Capsules into G tube every 6 hours as needed for Pain, Moderate. Glucose 40 % Oral Gel (Glutose 15) Aspirin EC 81 MG Oral Tablet Delayed Release Take 1 Tab by mouth daily. 90 Tab 3 Dexcom G7 Sensor Use 1 Units as directed daily. 1 Each 5 Dexcom G7 Lining Machine Operator Device Use 1 Units as directed daily. 1 Each 2 Boost Plus Oral Liquid Take 2 cans 4 times daily @ 7am,11 am,3 pm, 7 pm 720 mL 1 Albuterol Sulfate 1.25 MG/3ML Inhalation Nebulization Solution Inhale 1 vial via nebulizer every 4 hours as needed for Shortness of Breath or Wheezing. 360 mL 3 Midodrine HCl 5 MG Oral Tablet (Proamatine) TAKE 2 TABLETS BY MOUTH THREE TIMES DAILY NEEDED FORHYPOTENSION (FOR BLOOD PRESSURE LESS THAN 80MM HG SYSTOLIC) 540 Tablet 0 Latanoprost 0.005 % Ophthalmic Solution (Xalatan) Instill 1 Drop into both eyes every evening. 10 mL 3 Atorvastatin Calcium 40 MG Oral Tablet (Lipitor) Take 1 Tablet by mouth in the morning. 90 Tablet 3 Levothyroxine Sodium 88 MCG Oral Tablet (Levoxyl) Administer 1 Tablet into G tube in the morning. (at least 30 min prior to breakfast or other meds). 90 Tablet 3 Citalopram Hydrobromide 20 MG Oral Tablet (CeleXA) Take 1 Tablet by mouth in the morning. 90 Tablet1 cloNIDine HCl 0.1 MG Oral Tablet (Catapres) Take 1 Tablet by mouth in the morning and 1 Tablet at noon and 1 Tablet before bedtime. Take when BP > 180. 90 Tablet 11 hydrALAZINE HCl 25 MG Oral Tablet (Apresoline) take 1 tablet by mouth three times a day; hold for SBP < 140 90 Tablet 0 Midodrine HCl 10 MG Oral Tablet (Proamatine) take 1 tablet by mouth three times daily with meals for 30 days 90 Tablet 0 Formoterol Fumarate 20 MCG/2ML Inhalation Nebulization Solution Inhale 2 mL by mouth in the morningand 2 mL before bedtime. 120 mL 5 OneTouch Ultra In Vitro Strip (Glucose Blood) USE DIRECTED FOUR TIMES A DAY NEEDED FOR HYPERGLYCEMIA (HIGH SUGAR). DX:E11.9 100 Strip 5 Diclofenac Sodium 1 % External Gel (Voltaren) Apply topically to affected area 3 times a day. 100 g2 Azithromycin 250 MG Oral Tablet (Zithromax) take 2 tablets by mouth daily for 1 2 Tablet 0 No current facility-administered medications for this visit. O: Blood pressure 164/92, pulse 74, temperature 36.4 C (97.6 F), temperature source Tympanic, resp. rate 16, weight 80.8 kg (178 lb 3 oz), SpO2 98%. Neck is supple without adenopathy or thyromegaly. Chest is symmetrical and moves normally. The lungs are clear without wheezes, rales, rhonchi or rubs, and the heart is regular without murmurs or gallops, or ectopy. PMI not displaced. A: COVID-19 (Primary) Acquired hypothyroidism HTN, goal below 130/80 Continue other meds as before. Follow Up: Return if symptoms worsen or fail to improve. documented in this encounter Nursing Notes * Mackenzie Knight LPN - 02/10/2024 8:44 AM EDT [facility] follow up from 01/30 and 01/31-02/02 Still with cough. Was diagnosed with covid 2 weeks ago. Brought wrist B/p monitor with him today. It's new. Reading 300 systolic. questioning if it isaccurate. His reading today her with his 172/129 documented in this encounter Plan of Treatment Upcoming Encounters Date Type Department Care Team (Late st Contact Info) Description 02/25/2024 2:00 PM EDT Office Visit [address] [address] Marta Moran MD [address] [place] [address] [facility] Nurse [address] [place] [address] [address] [place] [address] 05/25/2024 10:20 AM EST Office Visit Nephrology [address] [place] [address] Jayden Vasques MD [address] [place] [address] 09/08/2024 1:40 PM EST Office Visit [facility] [place] [address] [place] [address] Jayden Vasques MD [address] [place] [address] Scheduled Procedures Name Priority Associated Diagnoses Date/Ti me COLONOSCOPY FLEXIBLE PROXIMAL DIAGNOSTIC Recall History of colon polyps Health Maintenance Due Date Last Done Comments Alpha-1 Antitrypsin 1965 *ADVANCE DIRECTIVE NOT ON FILE 05/06/2019 DTaP,Tdap,and Td Vaccines (2 - Td or Tdap) 10/01/2021 10/02/2011, 07/26/2003, 07/19/1992 COVID-19 Vaccine ( - 2022- season) 2023 02/18/2022, 10/11/2020, 09/13/2020 *CXR OR [...] this encounter Medical Devices Implanted Type Area Curve Cleaner Device Identifier Shelf Expiration Date Model / Serial / Lot [id number] - [id number] Implanted:Qty : 1 on 09/26/2007 at OR [facility] Tissue - Human Right: Neck [employer] 10/17/2008 [id number] / / [id number] Description:alloderm 3x7cm Elect Nucleus Slim Str [id number] - [id number] Implanted:Qty : 1 on 12/21/2022 by Ollie Borja MD at OR [facility] Left: Ear [employer] 11/04/2024 [id number] / / [id number] documented as of this encounter Visit Diagnoses Diagnosis COVID-19- Primary Acquired hypothyroidism Unspecified hypothyroidism HTN, goal below 130/80 Unspecified essential hypertension documented in this encounter Advance Directives * Full Code (Latest Code Status on File) Date Activated Date Inactivated Comments 09/26/2007 1:43 PM 09/27/2007 5:30 PM * Full Code Date Activated Date Inactivated Comments 08/09/2007 1:38 PM 08/12/2007 5:16 PM Care Teams Knitting Teacher Relationship Specialty Start Date End Date Garland III, Sanjiv E, MD [address] [facility], [place] [id number] PCP - General Family Medicine 09/09/18 documented as of this encounter
[2024-02-23 22:48] LABS: Appearance Urine Clear (Clear); Bacteria Urine Automated None Seen (None Seen); Bilirubin Urine Negative (Negative); Blood Urine Negative (Negative); Cast Urine Automated 0-2 /lpf (0-2); Color Urine Yellow; Epithelial Cell Urine Auto 0-2 /hpf (0-2); Glucose Urine UA Negative (Negative); Ketones Urine Trace (Negative); Leukocyte Esterase Urine Negative (Negative); Nitrite Urine Negative (Negative); Protein Urine Trace (Negative); RBC Urine Automated 0-2 /hpf (0-2); Specific Gravity Urine > 1.045 (1.000-1.030); Urobilinogen Urine Negative (Negative); WBC Urine Automated 0-5 /hpf (0-5); pH Urine 6.5 (4.5-7.5)
[2024-02-24] MEDS: SODIUM CHLORIDE 0.9% 250 ML IV SCH (00:39)
[2024-02-24] MEDS: SODIUM CHLORIDE 0.9% 1,000 ML IV SCH (01:08)
[2024-02-24] MEDS ORDERED: VANCOMYCIN HCL 1,250 MG in SODIUM CHLORIDE 0.9% 500 ML IV SCH (04:00)
[2024-02-24] MEDS: LEVOTHYROXINE SODIUM 88 MCG TABLET PEG SCH (05:45)
[2024-02-24 07:08] LABS: Calcium 8.1 mg/dl (8.6-10.3); Magnesium 1.6 mg/dl (1.7-2.4); Potassium 4.1 mmol/L (3.5-5.1)
[2024-02-24 07:14] LABS: BUN Creatinine Ratio 14.2 (10-20); Creatinine Clr Calc Pharmacy 64.1 ml/min; Est GFR (African American) 78.6 ml/min; Est GFR (Non-African American) 67.8 ml/min
[2024-02-24 07:45] LABS: Hematocrit (blood only) 34.2 % (42.0-52.0); Hemoglobin 11.3 g/dl (14.0-18.0); Mean Corpuscular Hemoglobin 32.8 pg (25.0-34.0); Mean Corpuscular Volume 99.4 fL (80.0-100.0); Mean Platelet Volume 11.7 fL (9.4-12.4); Platelet Count 109 K/uL (130-400); RDW Coefficient of Variation 14.2 % (11.5-14.5); RDW Standard Deviation 51.3 fL (36.4-46.3); Red Blood Count 3.44 M/uL (4.70-6.10); White Blood Count 17.15 K/ul (4.8-10.8)
[2024-02-24] MEDS ORDERED: MIDODRINE HCL 10 MG TAB PO SCH (08:00)
[2024-02-24] MEDS: CITALOPRAM 20 MG TAB PEG SCH (08:30)
[2024-02-24] MEDS: ATORVASTATIN 40 MG TAB PEG SCH (08:30)
[2024-02-24] MEDS: MAGNESIUM SULFATE / D5W 1 GM/100 ML BAG IV SCH (08:35)
[2024-02-24] MEDS: VANCOMYCIN HCL 1,500 MG in SODIUM CHLORIDE 0.9% 500 ML IV SCH (08:35)
[2024-02-24] MEDS ORDERED: PEPTAMEN 1.5 CAL 1,000 ML BAG PEG SCH (10:15)
[2024-02-24] MEDS: PIPERACILLIN/TAZOBACTAM 4.5 GM in DEXTROSE 5% MINI-B 100 ML IV ONE (11:07)
[2024-02-24] MEDS: TUBE FEEDING WATER FLUSH PEG SCH (11:10)
--- NOTE | 2024-02-24 11:25 | Electrocardiogram Report ---
Test Reason : Blood Pressure : */* mmHG Vent. Rate : 95 BPM Atrial Rate : * BPM P-R Int : * ms QRS Dur : 74 ms QT Int : 322 ms P-R-T Axes : * -56 257 degrees QTcB Int : 404 ms Probably sinus rhythm Left axis deviation Nonspecific ST abnormality Abnormal ECG When compared with ECG of 01-Feb-2024 15:03, Vent. rate has increased by 35 bpm Confirmed by Yung Love ([id number]) on 02/24/2024 11:25:40 AM Referred By: REFERRED SELF Confirmed By: Yung Love
--- NOTE | 2024-02-24 14:45 | Electrocardiogram Report ---
Test Reason : Blood Pressure : */* mmHG Vent. Rate : 78 BPM Atrial Rate : 78 BPM P-R Int : 156 ms QRS Dur : 76 ms QT Int : 394 ms P-R-T Axes : 49 -40 4 degrees QTcB Int : 449 ms Normal sinus rhythm Left axis deviation Nonspecific ST abnormality Abnormal ECG When compared with ECG of 23-Feb-2024 14:47, (unconfirmed) ST less depressed in Inferior leads ST no longer depressed in Lateral leads T wave inversion no longer evident in Inferior leads Nonspecific T wave abnormality no longer evident in Lateral leads Confirmed by Yung Love ([id number]) on 02/24/2024 2:45:35 PM Referred By: REFERRED SELF Confirmed By: Yung Love
--- NOTE | 2024-02-24 15:04 | Hospitalist Progress Note ---
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 Recent COVID-19 infection 01/31/24. Pt's reports repeated resp distress since COVID infection. Pt is being managed for the following: Acute respiratory failure with hypoxia iso likely aspiration pneumonia: noted to be in resp distress at presentation, needed upto 10 L O2 via OM. Severe Sepsis POA: likely 2/2 asp pna. Temp/Respiratory rate/heart rate/lactate elevated at presentation. Patient with recent diagnosis of COVID infection. Patient with respiratory distress and wet cough more freq since covid infxn per pt's . Likely aspiration pna (given pt's underlying risk factors) vs superimposed bacterial infection. Of note, pt has underlying risk for aspiration which is not amenable to correction, he can aspirate from tube feeds. Admitting CTA chest: No evidence of PE. Dependent airspace consolidation at both lung bases. Neg Resp biofire. MRSA screen negative. DC cefepime and vancomycin. Start Zosyn 02/23. Patient reports feeling better, reports improving cough, denies rigors and chills. Wean down oxygen as tolerated. Hypertonic saline, mucomyst to help with congestion. Patient reports unable to expectorate. Incentive spirometry, flutter valve, Mucinex Pulm consult. Hypokalemia: Replace and monitor Chronic orthostatic hypotension: c/w home midodrine Tonsil carcinoma: On tube feeding diet: S/P surgery, chemo, radiation. Feeding tube in place and NPO status Continue nutrition supplements through feeding tube Hypertension: History of labile blood pressures as well as orthostatic hypotension. In past on hydralazine and clonidine. monitor. Hypothyroidism: Continue levothyroxine Depression: Continue citalopram DVT Prophylaxis: Heparin SQ Admit PCU Full Code Follows with Dr Hart for routine care Admission and Anticipated Discharge Date Admission Date: February 23, 2024 Subjective Patient was seen and examined at bedside. Patient was lying in bed, on 4 L oxygen via oxygen mask, resting comfortably, not in any acute distress. Patient's at bedside was also updated on plan of care. Per patient's , patient is having wet cough and respiratory distress since COVID from mid January this year. See reports that patient has not improved since mid January. He had febrile event prior to arrival which is better now per pt's . Pt denies any pain. Physical Exam Physical Exam: GENERAL: Alert and awake, On 4L via OM. Ill appearing/frail/sick. HEENT: No pallor, no icterus. Pupils equal, round and reactive to light. Oral mucosa moist. NECK: No JVD, no neck masses. HEART: S1 and S2 heard. Regular rate and rhythm. No murmur, no gallop. RESPIRATORY SYSTEM: Normal AP diameter. No accessory muscle use. No wheezing, b/l crackles. ABDOMEN: Soft, bowel sounds present, nontender, no distention. CENTRAL NERVOUS SYSTEM: No facial droop. Speech is clear. Obeys simple commands. Moves extremities. EXTREMITIES: No edema, no erythema seen. Results & Data Results & Data Vital Signs (Past 12 Hours) Vital Signs Temp Pulse Resp BP Pulse Ox O2 Del Method O2 Flow Rate 02/24/24 13:00 70 20 96 Room Air 02/24/24 12:00 36.9 C 88 16 95/61 L 91 Oxymask 4 02/24/24 08:42 Nasal Cannula 3 02/24/24 07:46 37.1 C 77 18 100/57 L 96 Oxymask 4 02/24/24 07:25 79 17 98 Nasal Cannula 2.5 (1) Pneumonia Laterality: right Lung location: lower lobe of lung Pneumonia type: due to unspecified organism Qualified Code(s): J18.9 - Pneumonia, unspecified organism
--- NOTE | 2024-02-24 16:11 | Pulmonary Consultation ---
Date of Consultation February 24, 2024 Assessment & Plan (1) Recurrent aspiration pneumonia: Patient on tube feeds with recurrent pneumonia. Unfortunately options are somewhat limited in what can be done to prevent this other than typical aspiration cautions including slow intermittent tube feeds, keeping his head of bed elevated at all times above 45 degrees and frequent pulmonary toileting with flutter valve, hypertonic saline and percussive vest therapy. Recommend ENT evaluation. Continue broad-spectrum antibiotics. Would recommend at least 10 days of antibiotics. Follow sputum cultures. (2) Weight loss: Unintentional weight loss. Likely failure to thrive in patient with history of head and neck cancer and recurrent infections. Recommend palliative care consultation and possibly PET scan as outpatient. Plan Thanks for the consult. Please call with questions. No further recommendations at this time. History of Present Illness Reason for Consultation: Recurrent aspiration pneumonia. Attending Physician: Jaquan Guillen MD History of Present Illness Patient with a history of tongue cancer and PEG tube presenting to the hospital due to increasing shortness of breath and lethargy. Pulmonary service is consulted to assist with management of aspiration pneumonia. Patient has had numerous hospitalizations lately for similar reasons including failure to thrive. He has lost about 10 pounds of weight over the past month. is present and concerned that the patient may have a recurrence of his . Chest CTA was obtained 02/23/2024 which revealed findings of aspiration pneumonitis. Patient was started on broad-spectrum antibiotics. Today he has coughing occasionally producing sputum. He did have rigors and fever yesterday which have improved today. Allergies Allergy/AdvReac Type Severity Reaction Status Date / Time levofloxacin Allergy Intermediate rash all Verified 02/23/24 15:14 over body sulfamethoxazole Allergy Intermediate ITCHING/HIVES Verified 02/23/24 15:14 WITH BACTRIM trimethoprim Allergy Intermediate ITCHING/HIVES Verified 02/23/24 15:14 WITH BACTRIM Nitrate Analogues AdvReac Severe DROP IN Verified 02/23/24 15:14 BP/UNCONSCIOUSNESS lisinopril AdvReac Intermediate ELEVATES Verified 02/23/24 15:14 B/P sertraline AdvReac Intermediate NOSE BLEEDS Verified 02/23/24 15:14 terazosin AdvReac Intermediate PRIAPRISM Verified 02/23/24 15:14 PER [facility] Home Medications Medication Instructions Recorded Confirmed Type citalopram 20 mg tablet 20 mg feeding tube QAM 10/20/18 08/07/24 History food supplemt, lactose-reduced 2 can feeding tube TID 05/07/18 02/23/24 History (Nutritional Drink oral liquid) latanoprost 0.005 % eye drops 1 drp OPB HS 01/30/19 02/23/24 History acetaminophen 500 mg tablet 1,000 mg feeding tube Q6H PRN Pain 03/06/21 02/23/24 History (Tylenol Extra Strength) levothyroxine 88 mcg tablet 88 mcg feeding tube QAM 04/06/21 02/23/24 History (Euthyrox) atorvastatin 40 mg tablet 40 mg feeding tube QAM 06/02/21 02/23/24 History albuterol sulfate 1.25 mg/3 mL 1.25 mg inhalation Q4H PRN 06/03/23 02/23/24 History solution for nebulization Shortness Of Breath Or Wheezing midodrine 10 mg tablet 10 mg PO TIDM 30 days #30 tabs 01/31/24 02/23/24 Rx Patient History Medical History Abnormal CT scan, neck 07/2022 [facility] - "7 mm lytic lesion within the C3 vertebral body." Per , outpt imaging since being d/c from hospital has r/o mets. History of recent hospitalization 07/2022 [facility] - pneumonia Slow to wake up after anesthesia Speech difficult to understand Hearing loss History of COVID-19 05/2021 treated for pneumonia at [facility]- 06/13/22 admitted to [facility] 06/2022with covid pneumonia, flu, and RSV 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 Degenerative disc disease Osteoarthritis GERD (gastroesophageal reflux disease) Anxiety Asthma rare use of PRN inh Orthostatic hypotension Tonsil carcinoma (Unknown) RADIATION AND CHEMO Surgical History History of radical neck dissection S/P percutaneous endoscopic gastrostomy (PEG) tube placement History of neck surgery LUMPECTOMY History of tooth extraction Family History Brother Family history of diabetes mellitus Social History Smoking Status: Former smoker Tobacco Type: Cigarettes Smoking End Date: 40 years ago; Second Hand Exposure: No; Do You Dip or Chew Tobacco: No; Tobacco Cessation Education Requested by Patient: No Hx Alcohol Use: Yes Alcohol type: beer Hx Substance Use: No Preferred Language: Dominican 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 Ability: Impaired 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 Ability 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 Frail and cachectic appearing male in no apparent distress. Frequently coughing. Eyes: Pupils are equal round and reactive to light. Conjunctivae are normal. Anicteric sclera. Ears nose, mouth and throat: No perioral cyanosis. Neck: Trachea is midline. Visual inspection is normal. Respiratory: Clear to auscultation bilaterally. No use of accessory muscles. No significant clubbing noted. Cardiovascular: Regular rate and rhythm. No murmurs. No edema. Gastrointestinal: Normal bowel sounds, soft, nontender and nondistended. No he patosplenomegaly noted. Musculoskeletal: No cyanosis. Patient is able to move all extremities. Strength is 5 out of 5 in the upper and lower extremities. Skin: No rashes, warm dry and intact. Neurologic: No obvious focal neurological deficits seen. Psychiatric: Alert and oriented x3 with a euthymic affect. Results & Data Results & Data Vital Signs (Past 12 Hours) Vital Signs Temp Pulse Resp BP Pulse Ox O2 Del Method O2 Flow Rate 02/24/24 13:00 70 20 96 Room Air 02/24/24 12:00 36.9 C 88 16 95/61 L 91 Oxymask 4 02/24/24 08:42 Nasal Cannula 3 02/24/24 07:46 37.1 C 77 18 100/57 L 96 Oxymask 4 02/24/24 07:25 79 17 98 Nasal Cannula 2.5 PG Care Time/CCT Total # of Minutes Spent Total Time Spent with Patient: Total time spent is greater than 50% in coordination of care (as documented) at patient's floor/unit and/or counseling patient: Coding Level of Care Code 74506 INT INP/OBS CARE 2/55MIN Diagnoses Recurrent aspiration pneumonia J69.0 Weight loss R63.4
[2024-02-24] MEDS: PIPERACILLIN/TAZOBACTAM 4.5 GM in DEXTROSE 5% MINI-B 100 ML IV SCH (17:45)
[2024-02-24] MEDS: ACETYLCYSTEINE 20% INHAL SOLN 4ML ***DISPENSED BY RESP. INH SCH (19:25)
[2024-02-25 06:31] LABS: Hematocrit (blood only) 32.8 % (42.0-52.0); Hemoglobin 10.8 g/dl (14.0-18.0); Mean Corpuscular Hemoglobin 32.7 pg (25.0-34.0); Mean Corpuscular Hgb Conc 32.9 g/dL (32.0-36.0); Mean Corpuscular Volume 99.4 fL (80.0-100.0); Platelet Count 91 K/uL (130-400); RDW Coefficient of Variation 14.2 % (11.5-14.5); RDW Standard Deviation 52.1 fL (36.4-46.3); White Blood Count 11.53 K/ul (4.8-10.8)
[2024-02-25 06:47] LABS: Calcium 8.2 mg/dl (8.6-10.3); Magnesium 2.1 mg/dl (1.7-2.4)
[2024-02-25 06:52] LABS: BUN Creatinine Ratio 18.8 (10-20); Creatinine Clr Calc Pharmacy 70.8 ml/min; Est GFR (African American) 88.6 ml/min; Est GFR (Non-African American) 76.5 ml/min
[2024-02-25 07:07] LABS: Phosphorus 1.2 mg/dl (2.5-4.9)
[2024-02-25] MEDS ORDERED: POTASSIUM PHOS 3 MMOL/1 ML INFUSION IV STA (07:37)
[2024-02-25] MEDS: POT PHOSPHATE MONOBASIC W/ SOD TAB PEG SCH (08:48)
[2024-02-25] MEDS: POTASSIUM PHOSPHATE 21 MMOL in SODIUM CHLORIDE 0.9% 500 ML IV ONE (08:48)
[2024-02-25] MEDS: VANCOMYCIN LEVEL ONE (08:49)
--- NOTE | 2024-02-25 15:03 | Hospitalist Progress Note ---
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 Recent COVID-19 infection 01/31/24. Pt's reports repeated resp distress since COVID infection. Pt is being managed for the following: Acute respiratory failure with hypoxia iso likely aspiration pneumonia: noted to be in resp distress at presentation, needed upto 10 L O2 via OM. Severe Sepsis POA: likely 2/2 asp pna. Temp/Respiratory rate/heart rate/lactate elevated at presentation. Patient with recent diagnosis of COVID infection. Patient with respiratory distress and wet cough more freq since covid infxn per pt's . Likely aspiration pna (given pt's underlying risk factors) vs superimposed bacterial infection. Of note, pt has underlying risk for aspiration which is not amenable to correction, he can aspirate from tube feeds. Admitting CTA chest: No evidence of PE. Dependent airspace consolidation at both lung bases. Neg Resp biofire. MRSA screen negative. c/w Zosyn 02/23. Patient reports feeling better, reports improving cough, denies rigors and chills. now on RA Hypertonic saline, mucomyst to help with congestion. Incentive spirometry, flutter valve, Mucinex Pulm consult. appreciate recs. Palliative as OP, discussed w/ pt's who says will establish with one once discharged. Hypokalemia: Replace and monitor Chronic orthostatic hypotension: c/w home midodrine Tonsil carcinoma: On tube feeding diet: S/P surgery, chemo, radiation. Feeding tube in place and NPO status Continue nutrition supplements through feeding tube Hypertension: History of labile blood pressures as well as orthostatic hypotension. In past on hydralazine and clonidine. monitor. Hypothyroidism: Continue levothyroxine Depression: Continue citalopram DVT Prophylaxis: Heparin SQ Admit PCU Full Code Follows with Dr Hart for routine care Admission and Anticipated Discharge Date Admission Date: February 23, 2024 Subjective Patient was seen and examined at bedside. Patient was lying in bed, on RA, resting comfortably, not in any acute distress. Patient's at bedside was also updated on plan of care. Pt reports improving cough, feels better. hasn't had bm in 2 days. wants bowel regimen. Physical Exam Physical Exam: GENERAL: Alert and awake, On RA. Ill appearing/frail/sick. HEENT: No pallor, no icterus. Pupils equal, round and reactive to light. Oral mucosa moist. NECK: No JVD, no neck masses. HEART: S1 and S2 heard. Regular rate and rhythm. No murmur, no gallop. RESPIRATORY SYSTEM: Normal AP diameter. No accessory muscle use. No wheezing, b/l crackles - improving. ABDOMEN: Soft, bowel sounds present, nontender, no distention. CENTRAL NERVOUS SYSTEM: No facial droop. Speech is clear. Obeys simple commands. Moves extremities. EXTREMITIES: No edema, no erythema seen. Results & Data Results & Data Vital Signs (Past 12 Hours) Vital Signs Temp Pulse Resp BP Pulse Ox O2 Del Method O2 Flow Rate 02/25/24 13:32 67 15 95 Room Air 02/25/24 11:16 37.0 C 71 20 122/66 94 Room Air 02/25/24 08:09 37.5 C 87 20 101/58 L 92 Nasal Cannula 2 02/25/24 08:00 Room Air 02/25/24 07:14 75 12 97 Room Air 02/25/24 03:10 36.9 C 72 14 122/72 97 Room Air FiO2 02/25/24 13:32 21 02/25/24 11:16 02/25/24 08:09 02/25/24 08:00 02/25/24 07:14 21 02/25/24 03:10 (1) Pneumonia Laterality: right Lung location: lower lobe of lung Pneumonia type: due to unspecified organism Qualified Code(s): J18.9 - Pneumonia, unspecified organism
[2024-02-25] MEDS: POLYETHYLENE (MIRALAX) 17 GM PACK PEG ONE (16:41)
[2024-02-25] MEDS: DOCUSATE SODIUM/SENNA 50/8.6MG TAB PEG SCH (16:41)
[2024-02-26 06:13] LABS: Hematocrit (blood only) 32.8 % (42.0-52.0); Hemoglobin 10.9 g/dl (14.0-18.0); Mean Corpuscular Hemoglobin 32.2 pg (25.0-34.0); Mean Corpuscular Hgb Conc 33.2 g/dL (32.0-36.0); Mean Corpuscular Volume 96.8 fL (80.0-100.0); Mean Platelet Volume 12.2 fL (9.4-12.4); Platelet Count 90 K/uL (130-400); RDW Coefficient of Variation 14.2 % (11.5-14.5); RDW Standard Deviation 50.4 fL (36.4-46.3); Red Blood Count 3.39 M/uL (4.70-6.10); White Blood Count 8.11 K/ul (4.8-10.8)
[2024-02-26 06:31] LABS: BUN Creatinine Ratio 15.7 (10-20); Calcium 8.2 mg/dl (8.6-10.3); Creatinine Clr Calc Pharmacy 81.9 ml/min; Est GFR (African American) 99.1 ml/min; Est GFR (Non-African American) 85.5 ml/min; Magnesium 1.9 mg/dl (1.7-2.4); Phosphorus 2.4 mg/dl (2.5-4.9); Potassium 3.3 mmol/L (3.5-5.1)
[2024-02-26] MEDS: POT PHOSPHATE MONOBASIC W/ SOD TAB PO SCH (08:44)
[2024-02-26] MEDS: POTASSIUM CHLORIDE 20 MEQ/15 ML UDC PEG STA (08:45)
--- NOTE | 2024-02-26 13:51 | Hospitalist Progress Note ---
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 Recent COVID-19 infection 01/31/24. Pt's reports repeated resp distress since COVID infection. Pt is being managed for the following: Acute respiratory failure with hypoxia iso likely aspiration pneumonia: noted to be in resp distress at presentation, needed upto 10 L O2 via OM. Severe Sepsis POA: likely 2/2 asp pna. Temp/Respiratory rate/heart rate/lactate elevated at presentation. Patient with recent diagnosis of COVID infection. Patient with respiratory distress and wet cough more freq since covid infxn per pt's . Likely aspiration pna (given pt's underlying risk factors) vs superimposed bacterial infection. Of note, pt has underlying risk for aspiration which is not amenable to correction, he can aspirate from tube feeds. Admitting CTA chest: No evidence of PE. Dependent airspace consolidation at both lung bases. Neg Resp biofire. MRSA screen negative. c/w Zosyn 02/23. Patient reports feeling better, reports improving cough, denies rigors and chills. now on RA Hypertonic saline, mucomyst to help with congestion. Incentive spirometry, flutter valve, Mucinex Pulm consult. appreciate recs. Palliative as OP, pt's states he is already scheduled to see palliative as OP. Hypokalemia: Replace and monitor Chronic orthostatic hypotension: c/w home midodrine Tonsil carcinoma: On tube feeding diet: S/P surgery, chemo, radiation. Feeding tube in place and NPO status Continue nutrition supplements through feeding tube Hypertension: History of labile blood pressures as well as orthostatic hypotension. In past on hydralazine and clonidine. monitor. Hypothyroidism: Continue levothyroxine Depression: Continue citalopram DVT Prophylaxis: Heparin SQ Admit PCU Full Code Follows with Dr Hart for routine care Admission and Anticipated Discharge Date Admission Date: February 23, 2024 Subjective Patient was seen and examined at bedside. Patient was lying in bed, on RA, resting comfortably, not in any acute distress. Patient's at bedside was also updated on plan of care. Pt reports improving cough, feels better. last bm yesterday, c/w prn bowel regimen. Physical Exam Physical Exam: GENERAL: Alert and awake, On RA. Appears frail/weak. HEENT: No pallor, no icterus. Pupils equal, round and reactive to light. Oral mucosa moist. NECK: No JVD, no neck masses. HEART: S1 and S2 heard. Regular rate and rhythm. No murmur, no gallop. RESPIRATORY SYSTEM: Normal AP diameter. No accessory muscle use. No wheezing, b/l crackles - improving. ABDOMEN: Soft, bowel sounds present, nontender, no distention. CENTRAL NERVOUS SYSTEM: No facial droop. Speech is clear. Obeys simple commands. Moves extremities. EXTREMITIES: No edema, no erythema seen. Results & Data Results & Data Vital Signs (Past 12 Hours) Vital Signs Temp Pulse Pulse Resp BP Pulse Ox O2 Del Method 02/26/24 13:01 78 18 91 Room Air 02/26/24 10:48 37.7 C H 68 13 133/80 97 Room Air 02/26/24 09:27 71 02/26/24 09:15 Room Air 02/26/24 07:25 37.1 C 73 15 146/76 H 100 Nebulizer 02/26/24 07:08 78 18 94 Room Air 02/26/24 02:57 37.4 C 66 18 118/65 95 Room Air O2 Flow Rate 02/26/24 13:01 02/26/24 10:48 02/26/24 09:27 02/26/24 09:15 02/26/24 07:25 7 02/26/24 07:08 02/26/24 02:57 (1) Pneumonia Laterality: right Lung location: lower lobe of lung Pneumonia type: due to unspecified organism Qualified Code(s): J18.9 - Pneumonia, unspecified organism
[2024-02-26] MEDS ORDERED: POLYETHYLENE (MIRALAX) 17 GM PACK PO PRN (13:52)
[2024-02-26] MEDS ORDERED: LOPERAMIDE LIQUID 120 ML BOTTLE PEG STA (19:46)
[2024-02-26] MEDS: LOPERAMIDE LIQUID 120 ML BOTTLE PO STA (20:35)
[2024-02-27] MEDS: SODIUM CHLORIDE 0.65% NA SOLN 45 ML (OCEAN) ONE (07:26)
[2024-02-27 07:31] LABS: Hematocrit (blood only) 34.1 % (42.0-52.0); Hemoglobin 11.4 g/dl (14.0-18.0); Mean Corpuscular Hemoglobin 32.9 pg (25.0-34.0); Mean Corpuscular Hgb Conc 33.4 g/dL (32.0-36.0); Mean Corpuscular Volume 98.3 fL (80.0-100.0); Mean Platelet Volume 12.2 fL (9.4-12.4); Platelet Count 104 K/uL (130-400); RDW Coefficient of Variation 14.1 % (11.5-14.5); RDW Standard Deviation 51.1 fL (36.4-46.3); Red Blood Count 3.47 M/uL (4.70-6.10); White Blood Count 6.14 K/ul (4.8-10.8)
[2024-02-27] MEDS: LOPERAMIDE HCL 2 MG CAP PO STA (07:32)
[2024-02-27 07:49] LABS: BUN Creatinine Ratio 11.3 (10-20); Calcium 8.4 mg/dl (8.6-10.3); Creatinine Clr Calc Pharmacy 84.9 ml/min; Est GFR (African American) 100.6 ml/min; Est GFR (Non-African American) 86.8 ml/min; Potassium 3.9 mmol/L (3.5-5.1)
--- NOTE | 2024-02-27 14:57 | Hospitalist Progress Note ---
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 Recent COVID-19 infection 01/31/24. Pt's reports repeated resp distress since COVID infection. Pt is being managed for the following: Acute respiratory failure with hypoxia iso likely aspiration pneumonia: noted to be in resp distress at presentation, needed upto 10 L O2 via OM. Severe Sepsis POA: likely 2/2 asp pna. Temp/Respiratory rate/heart rate/lactate elevated at presentation. Patient with recent diagnosis of COVID infection. Patient with respiratory distress and wet cough more freq since covid infxn per pt's . Likely aspiration pna (given pt's underlying risk factors) vs superimposed bacterial infection. Of note, pt has underlying risk for aspiration which is not amenable to correction, he can aspirate from tube feeds. Admitting CTA chest: No evidence of PE. Dependent airspace consolidation at both lung bases. Neg Resp biofire. MRSA screen negative. c/w Zosyn 02/23. Sp Cx w/ Serratia. DC on levo and metron. Patient reports feeling better, reports improving cough, denies rigors and chills. now on RA Hypertonic saline, mucomyst to help with congestion. Incentive spirometry, flutter valve, Mucinex Pulm consult. appreciate recs. Palliative as OP, pt's states he is already scheduled to see palliative as OP. Hypokalemia: Replace and monitor Chronic orthostatic hypotension: c/w home midodrine Tonsil carcinoma: On tube feeding diet: S/P surgery, chemo, radiation. Feeding tube in place and NPO status Continue nutrition supplements through feeding tube Hypertension: History of labile blood pressures as well as orthostatic hypotension. In past on hydralazine and clonidine. monitor. Hypothyroidism: Continue levothyroxine Depression: Continue citalopram DVT Prophylaxis: Heparin SQ Admit PCU Full Code Follows with Dr Hart for routine care Possible dc in next 1-2 days. Admission and Anticipated Discharge Date Admission Date: February 23, 2024 Subjective Patient was seen and examined at bedside. Patient was lying in bed, on RA, resting comfortably, not in any acute distress. Patient's at bedside was also updated on plan of care. Pt reports improving cough, feels better. Patient and his reports significant improvement since yesterday. Physical Exam Physical Exam: GENERAL: Alert and awake, On RA. Appears frail/weak. HEENT: No pallor, no icterus. Pupils equal, round and reactive to light. Oral mucosa moist. NECK: No JVD, no neck masses. HEART: S1 and S2 heard. Regular rate and rhythm. No murmur, no gallop. RESPIRATORY SYSTEM: Normal AP diameter. No accessory muscle use. No wheezing, Rt base > Lt base crackles - improving. ABDOMEN: Soft, bowel sounds present, nontender, no distention. CENTRAL NERVOUS SYSTEM: No facial droop. Speech is clear. Obeys simple commands. Moves extremities. EXTREMITIES: No edema, no erythema seen. Results & Data Results & Data Vital Signs (Past 12 Hours) Vital Signs Temp Pulse Pulse Resp BP Pulse Ox O2 Del Method 02/27/24 14:45 36.8 C 67 16 115/75 93 Room Air 02/27/24 13:48 66 02/27/24 12:35 63 24 96 Room Air 02/27/24 10:56 37.1 C 72 16 104/64 96 Room Air 02/27/24 10:45 Room Air 02/27/24 07:49 36.7 C 78 16 151/70 H 97 Room Air 02/27/24 07:44 66 02/27/24 07:14 70 17 96 Room Air 02/27/24 03:19 36.7 C 68 18 119/77 98 Nasal Cannula O2 Flow Rate 02/27/24 14:45 02/27/24 13:48 02/27/24 12:35 02/27/24 10:56 02/27/24 10:45 02/27/24 07:49 02/27/24 07:44 02/27/24 07:14 02/27/24 03:19 2 (1) Pneumonia Laterality: right Lung location: lower lobe of lung Pneumonia type: due to unspecified organism Qualified Code(s): J18.9 - Pneumonia, unspecified organism
[2024-02-28 06:14] LABS: Hemoglobin 11.3 g/dl (14.0-18.0); Mean Corpuscular Hemoglobin 32.8 pg (25.0-34.0); Mean Corpuscular Hgb Conc 33.2 g/dL (32.0-36.0); Mean Corpuscular Volume 98.6 fL (80.0-100.0); Mean Platelet Volume 11.6 fL (9.4-12.4); Platelet Count 120 K/uL (130-400); RDW Coefficient of Variation 13.9 % (11.5-14.5); RDW Standard Deviation 50.8 fL (36.4-46.3); Red Blood Count 3.45 M/uL (4.70-6.10); White Blood Count 5.23 K/ul (4.8-10.8)
[2024-02-28 11:00] VITALS: O2SAT 96
[2024-02-28] MEDS: ERTAPENEM SODIUM 1,000 MG in SYRINGE 0 ML IV SCH (12:05)
[2024-02-28] MEDS ORDERED: LEVALBUTEROL 1.25 MG/3 ML NEB NEB PRN (14:30)
[2024-02-28] MEDS ORDERED: IPRATROPIUM BROMIDE NEB SOLN 0.02% 0.5MG/2.5ML VIAL NEB PRN (14:31)
--- NOTE | 2024-02-28 14:47 | Hospitalist Progress Note ---
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 Recent COVID-19 infection 01/31/24. Pt's reports repeated resp distress since COVID infection. Pt is being managed for the following: Acute respiratory failure with hypoxia iso likely aspiration pneumonia: noted to be in resp distress at presentation, needed upto 10 L O2 via OM. Severe Sepsis POA: likely 2/2 asp pna. Temp/Respiratory rate/heart rate/lactate elevated at presentation. Patient with recent diagnosis of COVID infection. Patient with respiratory distress and wet cough more freq since covid infxn per pt's . Likely aspiration pna (given pt's underlying risk factors) vs superimposed bacterial infection. Of note, pt has underlying risk for aspiration which is not amenable to correction, he can aspirate from tube feeds. Admitting CTA chest: No evidence of PE. Dependent airspace consolidation at both lung bases. Neg Resp biofire. MRSA screen negative. c/w Zosyn 02/23. Sp Cx w/ Serratia. Allergies to levaquin and bactrim, Change to ertapenem 02/27, dc on ertapenem, get us guided iv line. Patient reports feeling better, reports improving cough, denies rigors and chills. now on RA Hypertonic saline, mucomyst to help with congestion. Incentive spirometry, flutter valve, Mucinex Pulm consult. appreciate recs. Palliative as OP, pt's states he is already scheduled to see palliative as OP. Hypokalemia: Replace and monitor Chronic orthostatic hypotension: c/w home midodrine Tonsil carcinoma: On tube feeding diet: S/P surgery, chemo, radiation. Feeding tube in place and NPO status Continue nutrition supplements through feeding tube Hypertension: History of labile blood pressures as well as orthostatic hypotension. In past on hydralazine and clonidine. monitor. Hypothyroidism: Continue levothyroxine Depression: Continue citalopram DVT Prophylaxis: Heparin SQ Admit PCU Full Code Follows with Dr Hart for routine care Can dc once iv antibiotics are arranged for on discharge. med/surg until dc. Admission and Anticipated Discharge Date Admission Date: February 23, 2024 Subjective Patient was seen and examined at bedside. Patient was lying in bed, on RA, resting comfortably, not in any acute distress. Patient's at bedside was also updated on plan of care. Pt reports improving cough, feels better. Pt has allergies to levaquin and bactrim, will need iv antibiotic on dc to cover for serratia. Order for USG guided iv line placed, ertapenem prescription provided to CM. Physical Exam Physical Exam: GENERAL: Alert and awake, On RA. Appears frail/weak. HEENT: No pallor, no icterus. Pupils equal, round and reactive to light. Oral mucosa moist. NECK: No JVD, no neck masses. HEART: S1 and S2 heard. Regular rate and rhythm. No murmur, no gallop. RESPIRATORY SYSTEM: Normal AP diameter. No accessory muscle use. No wheezing, Rt base > Lt base crackles - improving. ABDOMEN: Soft, bowel sounds present, nontender, no distention. CENTRAL NERVOUS SYSTEM: No facial droop. Speech is clear. Obeys simple commands. Moves extremities. EXTREMITIES: No edema, no erythema seen. Results & Data Results & Data Vital Signs (Past 12 Hours) Vital Signs Temp Pulse Pulse Resp BP Pulse Ox O2 Del Method 02/28/24 13:34 66 02/28/24 10:59 37.0 C 69 19 112/63 96 Room Air 02/28/24 08:41 Room Air 02/28/24 07:52 36.8 C 80 20 158/74 H 97 Room Air 02/28/24 07:22 70 02/28/24 07:15 68 17 Room Air 02/28/24 02:49 36.9 C 73 14 127/71 97 Room Air FiO2 02/28/24 13:34 02/28/24 10:59 02/28/24 08:41 02/28/24 07:52 02/28/24 07:22 02/28/24 07:15 98 02/28/24 02:49 (1) Pneumonia Laterality: right Lung location: lower lobe of lung Pneumonia type: due to unspecified organism Qualified Code(s): J18.9 - Pneumonia, unspecified organism
[2024-02-28 15:44] VITALS: PULSE 71; RESP 18; TEMP 98.4
--- NOTE | 2024-02-28 16:58 | Discharge Summary ---
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 History obtained from patient's as patient has difficulty talking secondary to history neck cancer and radiation. Inpatient chart reviewed and patient with recent hospitalization 01/31/2024 hypotension, asymptomatic COVID-19 with BPs improved during hospitalization. Readmitted 02/01/2024-02/03/2024 for generalized weakness, COVID-19 infection, COPD exacerbation. Patient's reports has had ongoing cough since recent hospital discharge. States he is unable to bring up phlegm with coughing. Does report sometimes seems to have posttussive emesis with "water" like consistency. States patient does not take anything by mouth. Denies other noted vomiting or diarrhea. She denies any noted fevers at home and states patient otherwise seems to be doing okay and had not had any noted shortness of breath or complaining of any chest pain. This morning states patient had sudden onset of full body shaking in which she was awake and alert during this episode. She states she attempted to take patient's temperature however her thermometer was broken and not working. She reports he felt hot to touch. She reports patient does not sleep all night and then during the day he sleeps. She feels that is why patient is sleeping lethargic today in ER. Denies noted LOC, hemoptysis. Further history and ROS unobtainable from patient currently as lethargic, very hard of hearing and difficult to understand speech. ( reports speech is at baseline for patient). Admission Exam Per Admitting Provider General: +ill appearing, lethargic elderly male Head: normocephalic, atraumatic Eyes: PERRL, EOM's intact, conjunctiva non-injected, anicteric ENT: normal inspection external ears, nose, mucous membranes moist Neck: supple, trachea midline Lungs: +tachypneic RR: 28 on nebulizer treatment, O2 sat 92%, +coarse breath sounds throughout CV: tachycardia, rate 110, regular rhythm, no pretibial edema Abd: normal BS, soft, no apparent tenderness to palpation Ext: no cyanosis, no apparent calf tenderness Neuro: +lethargic, arouses with light touch and shakes head "yes or no" and dozes back off, +generalized weakness Skin: warm, dry Principal Diagnosis Acute respiratory failure with hypoxia Severe sepsis POA Likely aspiration pneumonia Pneumonia due to Serratia marcescens Discharge Exam GENERAL: Alert and awake, On RA. Appears frail/weak. HEENT: No pallor, no icterus. Pupils equal, round and reactive to light. Oral mucosa moist. NECK: No JVD, no neck masses. HEART: S1 and S2 heard. Regular rate and rhythm. No murmur, no gallop. RESPIRATORY SYSTEM: Normal AP diameter. No accessory muscle use. No wheezing, Rt base > Lt base crackles - improving. ABDOMEN: Soft, bowel sounds present, nontender, no distention. CENTRAL NERVOUS SYSTEM: No facial droop. Speech is clear. Obeys simple commands. Moves extremities. EXTREMITIES: No edema, no erythema seen. Discharge Data Allergies Allergy/AdvReac Type Severity Reaction Status Date / Time levofloxacin Allergy Intermediate rash all Verified 02/23/24 15:14 over body sulfamethoxazole Allergy Intermediate ITCHING/HIVES Verified 02/23/24 15:14 WITH BACTRIM trimethoprim Allergy Intermediate ITCHING/HIVES Verified 02/23/24 15:14 WITH BACTRIM Nitrate Analogues AdvReac Severe DROP IN Verified 02/23/24 15:14 BP/UNCONSCIOUSNESS lisinopril AdvReac Intermediate ELEVATES Verified 02/23/24 15:14 B/P sertraline AdvReac Intermediate NOSE BLEEDS Verified 02/23/24 15:14 terazosin AdvReac Intermediate PRIAPRISM Verified 02/23/24 15:14 PER [facility] Consultations 02/23/24 15:50 ED Decision to Admit Stat 02/23/24 18:27 Consult Pulmonology Routine Ordered Studies 02/23/24 14:56 CT head/brain wo con Stat 02/23/24 16:30 CT angio chest PE protocol Stat Hospital Course (1) Pneumonia: Plan 78 year old male with PMH of HTN, dyslipidemia, COPD, 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 Recent COVID-19 infection 01/31/24. Pt's reports repeated resp distress since COVID infection. Pt was managed for the following: Acute respiratory failure with hypoxia iso likely aspiration pneumonia: noted to be in resp distress at presentation, needed upto 10 L O2 via OM. Severe Sepsis POA: likely 2/2 asp pna. Temp/Respiratory rate/heart rate/lactate elevated at presentation. Patient with recent diagnosis of COVID infection. Patient with respiratory distress and wet cough more freq since covid infxn per pt's . Likely aspiration pna (given pt's underlying risk factors) vs superimposed bacterial infection. Of note, pt has underlying risk for aspiration which is not amenable to correction, he can aspirate from tube feeds. Admitting CTA chest: No evidence of PE. Dependent airspace consolidation at both lung bases. Neg Resp biofire. MRSA screen negative. c/w Zosyn 02/23. Sp Cx w/ Serratia. Allergies to levaquin and bactrim, Change to ertapenem 02/27, dc on ertapenem, get us guided iv line. Patient reports feeling better, reports improving cough, denies rigors and chills. now on RA congestion has improved significantly, c/w prn breathing Rxs. Pulm consult. appreciate recs. Palliative as OP, pt's states he is already scheduled to see palliative as OP. Hypokalemia: Replace and monitor Chronic orthostatic hypotension: c/w home midodrine Tonsil carcinoma: On tube feeding diet: S/P surgery, chemo, radiation. Feeding tube in place and NPO status Continue nutrition supplements through feeding tube Hypertension: History of labile blood pressures as well as orthostatic hypotension. In past on hydralazine and clonidine. monitor. Hypothyroidism: Continue levothyroxine Depression: Continue citalopram DVT Prophylaxis: Heparin SQ Admit PCU Full Code Follows with Dr Hart for routine care Can dc once iv antibiotics are arranged for on discharge. manager forensic notified me that IV antibiotics are arranged for and patient can be discharged. I did phone call patient's Letty who is okay with discharging the patient. Patient is being discharged to home with following instruction at the point of discharge: Follow-up with your primary care physician within a week time and likely you will need labs CBC/CMP/magnesium/phosphorus. You will be discharged on antibiotic to complete the course for pneumonia. As discussed at the bedside, establish and follow-up with palliative care as an outpatient. As discussed at the bedside, you have high risks for aspiration pneumonia. Maintain aspiration precautions, keep head of the bed elevated at all times. Take your medications as prescribed. Please make sure that you are able to get your medications today by calling your pharmacy before you leave the hospital so that your treatment continuity is not broken. Home Health Attestation I certify that this patient is under my care and that I, or a physicians medical records assistant working with me, had a face to-face encounter that meets the home health [id number]-[id number] encounter requirements with this patient. The encounter with the patient was in whole, or in part, for the following medical condition, which is the primary reason for home health care (list medica l condition): I certify that, based on my findings, the following services are medically necessary home health services: My clinical findings support the need for the above services because: Further, I certify that my clinical findings support that this patient is homebound (i.e. absences from home require considerable and taxing effort and are for medical reasons or christian services or infrequently or of short duration when for other reasons) because: Certification for Home Health Services: Based on the above findings, I certify that this patient is confined to the home and needs intermittent detention care, physical therapy and/or speech therapy or continues to need occupational therapy. The patient is under my care, and I have initiated the establishment of the plan of care. This patient will be followed by a physician who will periodically review the plan of care. Total Time Total Time Spent Total Time Spent (In Minutes): 45 Discharge Plan Discharge Items Patient Disposition: Home - Home Health Services Reason For Visit: ACUTE RESP FAILURE, PNA Discharge Diagnosis: Acute respiratory failure with hypoxia Severe sepsis POA Likely aspiration pneumonia Pneumonia due to Serratia marcescens Activity: Resume your previous activity Non-emergency contact: Primary Care Provider Call non-emergency contact if: you have any medication questions, your symptoms worsen and your temperature is above 101 Follow-up/Referrals: Sanjiv Hart MD [Primary Care Provider] - (Date & Time 03/03/2024 9:00 AM Provider La Farrar MD [facility] ) Diet: Other - See Diet Comment Diet Comment: c/w prior arrangement of tube feed Addtl Attending Provider Instructions: Follow-up with your primary care physician within a week time and likely you will need labs CBC/CMP/magnesium/phosphorus. You will be discharged on antibiotic to complete the course for pneumonia. As discussed at the bedside, establish and follow-up with palliative care as an outpatient. As discussed at the bedside, you have high risks for aspiration pneumonia. Maintain aspiration precautions, keep head of the bed elevated at all times. Take your medications as prescribed. Please make sure that you are able to get your medications today by calling your pharmacy before you leave the hospital so that your treatment continuity is not broken. Pending Studies at Discharge: No Stand-Alone Forms: My [facility] [employer], Smoking Cessation Medications and DC Order Prescriptions: New sennosides-docusate sodium [Senokot-S] 8.6-50 mg Tablet 1 tab PEG QAM PRN (Reason: constipation) Qty: 30 0RF Lactobacillus acidoph-L.bulgar [Floranex] 100 million cell Granules In Packet 1 packet PEG DAILY Qty: 12 0RF guaifenesin [Mucinex] 600 mg Tablet Extended Release 12hr 600 mg PO Q12 5 Days Qty: 10 0RF ertapenem 1 gram recon soln 1 g IV DAILY 6 Days Qty: 6 0RF Continued latanoprost 0.005 % Drops 1 drp OPB HS citalopram 20 mg tablet 20 mg Feeding Tube QAM Nutritional Drink Liquid 2 can Feeding Tube TID acetaminophen [Tylenol Extra Strength] 500 mg Tablet 1,000 mg feeding tube Q6H PRN (Reason: Pain) levothyroxine [Euthyrox] 88 mcg tablet 88 mcg feeding tube QAM atorvastatin 40 mg tablet 40 mg feeding tube QAM albuterol sulfate 1.25 mg/3 mL solution for nebulization 1.25 mg inhalation Q4H PRN (Reason: Shortness Of Breath Or Wheezing) midodrine 10 mg Tablet 10 mg PO TIDM 30 Days Qty: 30 0RF Discharge Orders: Discharge Order (Routine); Ordered 02/28/24 Ordered By: Jaquan Guillen Admission Data Admit Date/Time: 02/23/24 16:49 Attending Provider: Jaquan Guillen Admit Provider: Remigio Rico Primary Care Provider: Tanner,Sanjiv E. Other Providers: Remigio Rico; Estevan Samuels
[2024-02-28 17:26] VITALS: BP 112/63
[2024-02-29] MEDS ORDERED: LACTOBACILLUS ACIDOPHILUS 1 GM PACK PEG SCH (09:00)
== END 2024-02-28 17:29 | disposition home health service (06) | DRG 871 ==
LOC: ED 14:22 → 2S 16:49 → SUATTDRO 16:49 → 2S 17:12

== ENCOUNTER 2024-09-13 11:41 | Inpatient (IN) ==
--- NOTE | 2024-09-13 12:10 | Emergency Department Note ---
Impression & Plan Acute pyelonephritis, Hematuria ED Provider Note NAME: DEMETRIO WELSH AGE: 79 SEX: M : 1945 ARRIVES VIA: Ambulance INFORMANT: Patient, the patient's significant other ED PROVIDER(S): Soto Merino DO CHIEF COMPLAINT: Low blood pressure HPI: The patient is a 79-year-old male who presented to the emergency department directly from his family doctor's office for an evaluation of low blood pressure. The patient had an appointment for a biopsy of a thyroid nodule on [facility] recently. After that episode the patient went into urinary retention and also was noted to have low blood pressure. He was treated with a Polk catheter which he still has been placed. He improved and was able to be sent home. He follow-up with his doctor at [facility] today. The patient was seen and the nurse for urology but he was noted to have very low blood pressure. The patient was sent to our emergency department by ambulance after they discussed his case with his family doctor. The patient does complain of a slight cough. He denies having abdominal pain or chest pain. He denies having any lower extremity swelling. The patient took 3 of his midodrine tablets today. The patient denies having any syncope. ROS: See above HPI for pertinent positives & negatives. A total of 10 systems reviewed and were otherwise negative. PAST MEDICAL HISTORY: See Below PAST SURGICAL HISTORY: See Below FAMILY HISTORY: See Below SOCIAL HISTORY: See Below HOME MEDICATIONS: See Below ALLERGIES: See Below VITALS: See Below PHYSICAL EXAMINATION: GENERAL: Patient is awake alert in no acute distress patient is resting comfortably and showing no signs of anxiety EYES: The conjunctivae are clear. The pupils are round and reactive. EARS, NOSE, MOUTH AND THROAT: The nose is without any evidence of any deformity. NECK: The neck is nontender and supple. RESPIRATORY: Normal respiratory effort is noted there is no evidence of wheezing rhonchi or rales CARDIOVASCULAR: Regular rate and rhythm noted there no murmurs rubs or gallops normal S1 normal S2. GASTROINTESTINAL: The abdomen is soft. Abdomen is nontender. MUSCULOSKELETAL/EXTREMITIES: There is no evidence of gross deformity full range of motion is noted in the hips and shoulders. SKIN: There is no obvious evidence of any rash. There are no petechiae, pallor or cyanosis noted. NEUROLOGIC: Patient is awake alert and oriented x3 MEDICAL DECISION MAKING: The patient is a 79-year-old male who presented to the emergency department for an evaluation of low blood pressure. The patient was noted to have a low blood pressure. He recently had problems with urinary retention and had a Polk catheter placed. The patient was at a different emergency department yesterday. He did present with a CT of the abdomen pelvis which appears to be consistent with pyelonephritis. The patient was treated with IV antibiotics in emergency department. He was reevaluated multiple times. I discussed the patient's laboratory and radiographic studies with him. Given his findings I do feel that he would be a better candidate for inpatient management. For this reason [facility] have agreed to evaluate the patient in the emergency department for further management and disposition. Triage Nursing notes reviewed. Prior medical records reviewed Vital Signs: reviewed and remarkable for no significant abnormalities Differential diagnosis: Renal colic, UTI, appendicitis, diverticulitis, mesenteric ischemia, aortic pathology, infections, inflammatory bowel disease, PUD, biliary pathology, as well as other pathologies. ER treatment provided: See below Diagnostics interpreted by me: ECG: EKG was obtained in the emergency department. My interpretation is sinus bradycardia 56 bpm. There was no ectopy. Early transition was noted. There is no acute ST segment abnormalities noted. This was compared to a tracing from April 08, 2024. No changes were noted Cardiac Monitoring: An order was placed for continuous cardiac monitoring. The monitor shows a rate of 59 bpm with sinus bradycardia. Laboratory studies: As stated above and show below. Imaging studies: See below. Radiographic imaging was reviewed by myself Consultation(s): I discussed this case with Palak [facility] Past Med/Surg History Problem List Urinary retention Hematuria (Acute) Acute pyelonephritis (Acute) Weight loss Recurrent aspiration pneumonia Pneumonia (Acute) On tube feeding diet Tonsil carcinoma (Unknown) RADIATION AND CHEMO Lab test negative for COVID-19 virus (Acute) COPD exacerbation (Acute) Hypoxemia (Acute) Hypokalemia (Acute) COVID-19 (Acute) Elevated lactic acid level (Acute) Cough (Acute) Hypotension (Acute) Chronic orthostatic hypotension COVID-19 (Acute) Head injury, closed, with brief LOC (Acute) Respiratory syncytial virus (RSV) infection (Acute) Acute respiratory failure with hypoxia (Acute) Bronchopneumonia Encounter for pre-operative examination Aspiration pneumonia (Acute) H/O malignant neoplasm of tonsil (Acute) Lactic acidosis Pneumonia (Acute) Hypoxemia (Acute) Sepsis (Acute) Lab test negative for COVID-19 virus (Acute) Acute hypokalemia (Acute) DVT prophylaxis Protein calorie malnutrition Hypokalemia Chronic bronchitis Ex-smoker Hypoxia (Acute) Influenza A (Acute) COVID-19 (Acute) Rigors (Acute) Confusion (Acute) Fever (Acute) SIRS (systemic inflammatory response syndrome) Blood pressure instability (Acute) [facility] Cardiology manages; currently using midodrine, and nitro PRN hypo/hypertension; per , cardiac workup wnl aside from BP changes Aspiration pneumonia hx - CAN NOT TAKE FOOD/LIQUIDS ORALLY Uses feeding tube Hypothyroidism Glaucoma Hypertension (Acute) Benign prostatic hyperplasia (Unknown) Chronic back pain Depression Gastroparesis COPD (chronic obstructive pulmonary disease) with emphysema H/O esophagogastroduodenoscopy (Unknown) WITH PLACEMENT PEG TUBE S/P arthroscopic knee surgery (Unknown) RT S/P colonoscopy (Unknown) Medical History Abnormal CT scan, neck 07/2022 [facility] - "7 mm lytic lesion within the C3 vertebral body." Per , outpt imaging since being d/c from hospital has r/o mets. 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 Degenerative disc disease Osteoarthritis GERD (gastroesophageal reflux disease) Anxiety Asthma rare use of PRN inh Orthostatic hypotension Surgical History History of radical neck dissection S/P percutaneous endoscopic gastrostomy (PEG) tube placement History of neck surgery LUMPECTOMY History of tooth extraction Family History Brother Family history of diabetes mellitus Social History Smoking Status: Never smoker Tobacco Type: Cigarettes Second Hand Exposure: No; Do You Dip or Chew Tobacco: No; Hx Alcohol Use: Yes Alcohol type: beer Hx Substance Use: No Preferred Language: Yemeni 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 Ability: Unable 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 Ability 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, 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 Required: No Beliefs That Will Affect Care: None marital status: Current Living Situation: Spouse Current Living Situation Comment: Personal Home Feels Safe at Home: Yes Assistive Devices: Glasses Allergies Allergies Allergy/AdvReac Type Severity Reaction Status Date / Time levofloxacin Allergy Intermediate rash all Verified 03/05/24 08:16 over body sulfamethoxazole Allergy Intermediate ITCHING/HIVES Verified 03/05/24 08:16 WITH BACTRIM trimethoprim Allergy Intermediate ITCHING/HIVES Verified 03/05/24 08:16 WITH BACTRIM Nitrate Analogues AdvReac Severe DROP IN Verified 03/05/24 08:16 BP/UNCONSCIOUSNESS lisinopril AdvReac Intermediate ELEVATES Verified 03/05/24 08:16 B/P sertraline AdvReac Intermediate NOSE BLEEDS Verified 03/05/24 08:16 terazosin AdvReac Intermediate PRIAPRISM Verified 03/05/24 08:16 PER [facility] Meds Home Medications Medication Instructions Recorded Confirmed citalopram 20 mg tablet 20 mg feeding tube QAM 05/07/18 09/13/24 food supplemt, lactose-reduced 2 can feeding tube TID 05/07/18 09/13/24 (Nutritional Drink oral liquid) latanoprost 0.005 % eye drops 1 drp OPB HS 01/30/19 09/13/24 acetaminophen 500 mg tablet 1,000 mg feeding tube Q6H PRN Pain 03/06/21 09/13/24 (Tylenol Extra Strength) levothyroxine 88 mcg tablet 88 mcg feeding tube QAM 04/06/21 09/13/24 (Euthyrox) atorvastatin 40 mg tablet 40 mg feeding tube QAM 06/02/21 09/13/24 albuterol sulfate 1.25 mg/3 mL 1.25 mg inhalation Q4H PRN 06/03/23 09/13/24 solution for nebulization Shortness Of Breath Or Wheezing midodrine 10 mg tablet 10 mg feeding tube TIDM PRN 09/13/24 09/13/24 Hypotension Previous Rx's Medication Instructions Recorded sennosides 8.6 mg-docusate sodium 1 tab PEG QAM PRN constipation #30 02/28/24 50 mg tablet (Senokot-S) tabs Results & Data (ED) Vital Signs Vital Signs - 24 hr 09/13/24 11:48 09/13/24 11:52 09/13/24 11:52 Temperature 37.2 C Temperature Source Oral Pulse Rate 57 L Pulse Rate from SpO2 Sensor Respiratory Rate 14 Respiratory Effort / Characteristics Non-Labored Spontaneous Non-Labored Spontaneous Respiratory Depth Normal Normal Blood Pressure 144/77 H 144/77 H Blood Pressure Mean 109 99 Pulse Oximetry 98 Oxygen Delivery Method Room Air Sepsis Recent Fever Within 48 Hours No Sepsis New/Unexplained Change in Mental Status N/A Sepsis Action Taken by Nursing No Action Required 09/13/24 11:54 09/13/24 12:00 09/13/24 12:03 Temperature Temperature Source Pulse Rate 56 L 59 L 58 L Pulse Rate from SpO2 Sensor 56 L 58 L Respiratory Rate 17 21 Respiratory Effort / Characteristics Respiratory Depth Blood Pressure Blood Pressure Mean Pulse Oximetry 97 99 Oxygen Delivery Method Sepsis Recent Fever Within 48 Hours Sepsis New/Unexplained Change in Mental Status Sepsis Action Taken by Nursing 09/13/24 12:08 09/13/24 12:12 09/13/24 12:21 Temperature Temperature Source Pulse Rate 57 L 56 L Pulse Rate from SpO2 Sensor 57 L 55 L Respiratory Rate 19 19 Respiratory Effort / Characteristics Respiratory Depth Blood Pressure 123/72 Blood Pressure Mean 78 Pulse Oximetry 99 99 Oxygen Delivery Method Sepsis Recent Fever Within 48 Hours Sepsis New/Unexplained Change in Mental Status Sepsis Action Taken by Nursing 09/13/24 12:23 09/13/24 12:24 09/13/24 12:30 Temperature Temperature Source Pulse Rate 58 L Pulse Rate from SpO2 Sensor 58 L Respiratory Rate 19 Respiratory Effort / Characteristics Respiratory Depth Blood Pressure Blood Pressure Mean Pulse Oximetry 99 Oxygen Delivery Method Room Air Room Air Sepsis Recent Fever Within 48 Hours Sepsis New/Unexplained Change in Mental Status Sepsis Action Taken by Nursing 09/13/24 12:30 09/13/24 12:30 09/13/24 12:54 Temperature Temperature Source Pulse Rate 58 L Pulse Rate from SpO2 Sensor 58 L Respiratory Rate 20 Respiratory Effort / Characteristics Respiratory Depth Blood Pressure 134/69 134/69 Blood Pressure Mean 98 98 Pulse Oximetry 95 Oxygen Delivery Method Sepsis Recent Fever Within 48 Hours Sepsis New/Unexplained Change in Mental Status Sepsis Action Taken by Nursing 09/13/24 13:00 09/13/24 13:09 09/13/24 13:12 Temperature Temperature Source Pulse Rate 61 61 Pulse Rate from SpO2 Sensor 61 60 Respiratory Rate 23 18 Respiratory Effort / Characteristics Respiratory Depth Blood Pressure 140/79 Blood Pressure Mean 93 Pulse Oximetry 96 95 Oxygen Delivery Method Sepsis Recent Fever Within 48 Hours Sepsis New/Unexplained Change in Mental Status Sepsis Action Taken by Nursing 09/13/24 13:24 09/13/24 13:30 09/13/24 13:30 Temperature Temperature Source Pulse Rate 64 Pulse Rate from SpO2 Sensor 64 Respiratory Rate 19 Respiratory Effort / Characteristics Respiratory Depth Blood Pressure 136/74 136/74 Blood Pressure Mean 104 104 Pulse Oximetry 97 Oxygen Delivery Method Sepsis Recent Fever Within 48 Hours Sepsis New/Unexplained Change in Mental Status Sepsis Action Taken by Nursing 09/13/24 13:30 09/13/24 13:30 09/13/24 13:30 Temperature Temperature Source Pulse Rate 61 Pulse Rate from SpO2 Sensor 60 Respiratory Rate 18 Respiratory Effort / Characteristics Respiratory Depth Blood Pressure 136/74 136/74 Blood Pressure Mean 104 104 Pulse Oximetry 97 Oxygen Delivery Method Sepsis Recent Fever Within 48 Hours Sepsis New/Unexplained Change in Mental Status Sepsis Action Taken by [facility] Medications Current Medication List: was personally reviewed by me Laboratory Data Attestation: I reviewed the patient's lab results. 09/13/24 12:04 09/13/24 12:04 Lab Results 09/13/24 09/13/24 09/13/24 Range/Units 12:04 12:10 12:15 WBC 6.38 (4.8-10.8) K/ul RBC 4.03 L (4.70-6.10) M/uL Hgb 12.6 L (14.0-18.0) g/dl Hct 39.2 L (42.0-52.0) % MCV 97.3 (80.0-100.0) fL MCH 31.3 (25.0-34.0) pg MCHC 32.1 (32.0-36.0) g/dL RDW Std Deviation 54.0 H (36.4-46.3) fL RDW Coeff of Judy 15.0 H (11.5-14.5) % Plt Count 171 (130-400) K/uL MPV 10.9 (9.4-12.4) fL Immature Gran % (Auto) 0.3 % Neut % (Auto) 77.0 % Lymph % (Auto) 10.0 % Lyon % (Auto) 10.7 % Eos % (Auto) 1.7 % Baso % (Auto) 0.3 % Neut # (Auto) 4.91 (1.40-6.50) K/uL Lymph # (Auto) 0.64 L (1.20-3.40) K/uL Lyon # (Auto) 0.68 H (0.11-0.59) K/uL Eos # (Auto) 0.11 (0.00-0.50) K/uL Baso # (Auto) 0.02 (0.00-0.20) K/uL Immature Gran # (Auto) 0.02 (0.01-0.20) K/uL PT 10.9 (9.0-12.0) Seconds INR 1.0 (0.9-1.1) APTT 28 (21-31) Seconds PTT Ratio 1.0 VBG pH (7.36-7.41) VBG pCO2 (38-50) mmHg VBG pO2 mmHg VBG HCO3 mmol/L VBG O2 Saturation % VBG Base Excess mEq/L Sodium 138 (136-145) mmol/L Potassium 3.8 (3.5-5.1) mmol/L Chloride 102 (98-107) mmol/L Carbon Dioxide 31 (21-32) mmol/L Anion Gap 5 (3-11) BUN 18 (6-23) mg/dl Creatinine 1.14 (0.6-1.4) mg/dl Est Cr Clr Drug Dosing 54.3 ml/min eGFR 66.24 BUN/Creatinine Ratio 15.8 (10-20) Glucose 86 (70-99(Fasting)) mg/dl Lactate (0.4-2.0) mmol/L Calcium 9.6 (8.6-10.3) mg/dl Magnesium 2.2 (1.7-2.4) mg/dl Total Bilirubin 0.9 (0.2-1.0) mg/dl Direct Bilirubin 0.3 H (0-0.2) mg/dl AST 20 (13-39) U/L ALT 18 (7-52) U/L Alkaline Phosphatase 84 (34-104) U/L Troponin I High Sens 23.0 H (0-20) pg/ml Total Protein 7.1 (6.0-8.3) gm/dl Albumin 4.0 (3.4-5.0) gm/dl Globulin 3.1 (2.5-4.0) gm/dl Albumin/Globulin Ratio 1.3 (0.9-2) Lipase 19 (11-82) U/L Procalcitonin 0.04 (0-0.5) ng/ml Urine Color Dark Yellow Urine Appearance Cloudy A (Clear) Urine pH 6.5 (4.5-7.5) Ur Specific [place] 1.022 (1.000-1.030) Urine Protein 3+ H (Negative) Urine Glucose (UA) Negative (Negative) Urine Ketones 1+ H (Negative) Urine Blood 2+ H (Negative) Urine Nitrite Negative (Negative) Urine Bilirubin 1+ H (Negative) Urine Urobilinogen Positive H (Negative) Ur Leukocyte Esterase 2+ H (Negative) Urine WBC (Auto) >50 H (0-5) /hpf Urine RBC (Auto) >20 H (0-2) /hpf U Hyaline Cast (Auto) >20 H (0-2) /lpf U Epithel Cells (Auto) 0-2 (0-2) /hpf Urine Bacteria (Auto) None Seen (None Seen) Hyaline Casts Present A (None Presnt) /lpf Granular Casts Present A (None Prsent) /lpf Urine Mucus Present A (None Prsent) SARS-CoV-2 (PCR) NEGATIVE (Negative) Influenza Type A (PCR) Negative (Neg) Influenza Type B (PCR) Negative (Neg) RSV (RT-PCR) Negative (Neg) 09/13/24 09/13/24 Range/Units 12:20 12:30 WBC (4.8-10.8) K/ul RBC (4.70-6.10) M/uL Hgb (14.0-18.0) g/dl Hct (42.0-52.0) % MCV (80.0-100.0) fL MCH (25.0-34.0) pg MCHC (32.0-36.0) g/dL RDW Std Deviation (36.4-46.3) fL RDW Coeff of Judy (11.5-14.5) % Plt Count (130-400) K/uL MPV (9.4-12.4) fL Immature Gran % (Auto) % Neut % (Auto) % Lymph % (Auto) % Lyon % (Auto) % Eos % (Auto) % Baso % (Auto) % Neut # (Auto) (1.40-6.50) K/uL Lymph # (Auto) (1.20-3.40) K/uL Lyon # (Auto) (0.11-0.59) K/uL Eos # (Auto) (0.00-0.50) K/uL Baso # (Auto) (0.00-0.20) K/uL Immature Gran # (Auto) (0.01-0.20) K/uL PT (9.0-12.0) Seconds INR (0.9-1.1) APTT (21-31) Seconds PTT Ratio VBG pH 7.41 (7.36-7.41) VBG pCO2 47 (38-50) mmHg VBG pO2 34 mmHg VBG HCO3 30 mmol/L VBG O2 Saturation 61.0 % VBG Base Excess 4.3 mEq/L Sodium (136-145) mmol/L Potassium (3.5-5.1) mmol/L Chloride (98-107) mmol/L Carbon Dioxide (21-32) mmol/L Anion Gap (3-11) BUN (6-23) mg/dl Creatinine (0.6-1.4) mg/dl Est Cr Clr Drug Dosing ml/min eGFR BUN/Creatinine Ratio (10-20) Glucose (70-99(Fasting)) mg/dl Lactate 1.4 (0.4-2.0) mmol/L Calcium (8.6-10.3) mg/dl Magnesium (1.7-2.4) mg/dl Total Bilirubin (0.2-1.0) mg/dl Direct Bilirubin (0-0.2) mg/dl AST (13-39) U/L ALT (7-52) U/L Alkaline Phosphatase (34-104) U/L Troponin I High Sens (0-20) pg/ml Total Protein (6.0-8.3) gm/dl Albumin (3.4-5.0) gm/dl Globulin (2.5-4.0) gm/dl Albumin/Globulin Ratio (0.9-2) Lipase (11-82) U/L Procalcitonin (0-0.5) ng/ml Urine Color Urine Appearance (Clear) Urine pH (4.5-7.5) Ur Specific [place] (1.000-1.030) Urine Protein (Negative) Urine Glucose (UA) (Negative) Urine Ketones (Negative) Urine Blood (Negative) Urine Nitrite (Negative) Urine Bilirubin (Negative) Urine Urobilinogen (Negative) Ur Leukocyte Esterase (Negative) Urine WBC (Auto) (0-5) /hpf Urine RBC (Auto) (0-2) /hpf U Hyaline Cast (Auto) (0-2) /lpf U Epithel Cells (Auto) (0-2) /hpf Urine Bacteria (Auto) (None Seen) Hyaline Casts (None Presnt) /lpf Granular Casts (None Prsent) /lpf Urine Mucus (None Prsent) SARS-CoV-2 (PCR) (Negative) Influenza Type A (PCR) (Neg) Influenza Type B (PCR) (Neg) RSV (RT-PCR) (Neg) Administered Medications Piperacillin Sod/Tazobactam Sod (Zosyn) 4.5 gm in 100 mls @ 25 mls/hr IV Q8H GIRISH; Protocol Stop: 09/23/24 16:59 Last Admin: 09/13/24 17:40 Dose: 25 mls/hr Documented By: POLLO Sterile Water (Tube Feeding Water Flush) 250 ml GT Q4 GIRISH Stop: 10/13/24 16:05 Last Admin: 09/13/24 17:40 Dose: 250 ml Documented By: ELRachel Discontinued Medications Sodium Chloride (Nss) 1,000 mls @ 999 mls/hr IV .Q1H1M ONE Stop: 09/13/24 13:06 Last Infusion: 09/13/24 13:48 Dose: Infused Documented By: Admin: 09/13/24 12:46 Dose: 999 mls/hr Documented By: TAHIR Piperacillin Sod/Tazobactam Sod (Zosyn) 4.5 gm in 100 mls @ 200 mls/hr IV NOW ONE; Protocol Stop: 09/13/24 12:40 Last Infusion: 09/13/24 13:48 Dose: Infused Documented By: Admin: 09/13/24 12:46 Dose: 200 mls/hr Documented By: TAHIR Imaging Data Attestation: I personally reviewed and interpreted this imaging study as follows: My Impression: 1 view chest x-ray was obtained in the emergency department. My interpretation is no free air or definite infiltrate, final report below. Radiologist's Impression: Chest X-Ray 09/13/24 12:06 XR chest 1V portable CLINICAL HISTORY: Sepsis COMPARISON STUDY: 07/30/2024 FINDINGS: Heart size and pulmonary vasculature are normal. No effusion, consolidation, or pneumothorax. IMPRESSION: No acute findings. ACT 112: Negative or not required by law. Electronically signed by: Chepe Sandoval M.D. 09/13/2024 12:27 PM Discharge Plan Visit Data Chief Complaint: Hematuria Stated Complaint: HEMATURIA, LIGHT HEADED, HYPOTENSION ED Provider: Soto Merino Discharge Problem: Acute pyelonephritis, Hematuria Patient Disposition: Admitted As Inpatient Discharge Instructions Interventions: ED Discharge Assessment Last Done: 09/13/24 14:11 Discharge Problem: Hematuria Qualifiers: Hematuria type: gross Qualified Code(s): R31.0 - Gross hematuria
[2024-09-13 12:26] LABS: Basophils # (auto) 0.02 K/uL (0.00-0.20); Basophils % (auto) 0.3 %; Eosinophils # (auto) 0.11 K/uL (0.00-0.50); Eosinophils % (auto) 1.7 %; Hematocrit (blood only) 39.2 % (42.0-52.0); Hemoglobin 12.6 g/dl (14.0-18.0); Immature Granulocytes # (auto) 0.02 K/uL (0.01-0.20); Immature Granulocytes % (auto) 0.3 %; Lymphocytes # (auto) 0.64 K/uL (1.20-3.40); Mean Corpuscular Hemoglobin 31.3 pg (25.0-34.0); Mean Corpuscular Hgb Conc 32.1 g/dL (32.0-36.0); Mean Corpuscular Volume 97.3 fL (80.0-100.0); Mean Platelet Volume 10.9 fL (9.4-12.4); Monocytes # (auto) 0.68 K/uL (0.11-0.59); Monocytes % (auto) 10.7 %; Neutrophils # (auto) 4.91 K/uL (1.40-6.50); Platelet Count 171 K/uL (130-400); Red Blood Count 4.03 M/uL (4.70-6.10); White Blood Count 6.38 K/ul (4.8-10.8)
--- NOTE | 2024-09-13 12:28 | XRay Report ---
XR chest 1V portable CLINICAL HISTORY: Sepsis COMPARISON STUDY: 07/30/2024 FINDINGS: Heart size and pulmonary vasculature are normal. No effusion, consolidation, or pneumothora x. IMPRESSION: No acute findings. ACT 112: Negative or not required by law. Electronically signed by: Chepe Sandoval M.D. 09/13/2024 12:27 PM
[2024-09-13 12:31] LABS: Base Excess VBG 4.3 mEq/L; HCO3 VBG 30 mmol/L; PCO2 VBG 47 mmHg (38-50); PO2 VBG 34 mmHg; pH VBG 7.41 (7.36-7.41)
[2024-09-13] MEDS: PIPERACILLIN/TAZOBACTAM 4.5 GM/100 ML BAG IV ONE (12:46)
[2024-09-13] MEDS: SODIUM CHLORIDE 0.9% 1,000 ML IV ONE (12:46)
[2024-09-13 12:48] LABS: Albumin Globulin Ratio 1.3 (0.9-2); BUN Creatinine Ratio 15.8 (10-20); Bilirubin Direct 0.3 mg/dl (0-0.2); Bilirubin,Total 0.9 mg/dl (0.2-1.0); Calcium 9.6 mg/dl (8.6-10.3); Creatinine Clr Calc Pharmacy 54.3 ml/min; Globulin 3.1 gm/dl (2.5-4.0); Magnesium 2.2 mg/dl (1.7-2.4); Potassium 3.8 mmol/L (3.5-5.1); Total Protein 7.1 gm/dl (6.0-8.3)
[2024-09-13 12:53] LABS: Appearance Urine Cloudy (Clear); Bacteria Urine Automated None Seen (None Seen); Bilirubin Urine 1+ (Negative); Blood Urine 2+ (Negative); Cast Urine Automated >20 /lpf (0-2); Color Urine Dark Yellow; Epithelial Cell Urine Auto 0-2 /hpf (0-2); Glucose Urine UA Negative (Negative); Granular Casts Urine Present /lpf (None Prsent); Hyaline Casts Urine Present /lpf (None Presnt); Ketones Urine 1+ (Negative); Leukocyte Esterase Urine 2+ (Negative); Mucus Urine Present (None Prsent); Nitrite Urine Negative (Negative); Protein Urine 3+ (Negative); RBC Urine Automated >20 /hpf (0-2); Specific Gravity Urine 1.022 (1.000-1.030); Urobilinogen Urine Positive (Negative); WBC Urine Automated >50 /hpf (0-5); pH Urine 6.5 (4.5-7.5)
[2024-09-13 12:54] LABS: Partial Thromboplastin Time 28 Seconds (21-31); Prothrombin Time 10.9 Seconds (9.0-12.0)
[2024-09-13 13:13] LABS: Influenza A virus by PCR Negative (Neg); Influenza B virus by PCR Negative (Neg); RSV by PCR Negative (Neg); SARS CoV2 RNA(COVID-19) Ceph NEGATIVE (Negative)
--- NOTE | 2024-09-13 13:19 | History & Physical Report ---
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 Pt underwent Endscopy at [facility] on 09/12. Post operatively pt was hypotensive requiring IVF. After discharge and return home he had severe abdominal pain so they presented to ED at [facility]. Pt was found to have urinary retention and a chavez catheter was placed. 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 CT scan report provided by . Unable to access images at this time. This a.m. pt was found to have rust/bloody colored urine, was hypotensive and referred to ED. #Acute catheter associated complicated UTI in setting of pyelonephritis #Acute Urinary Retention - suspect in setting of anesthesia vs infection admit to med/tele Continue with IV Zosyn - previous urine cultures reviewed blood/urine culture obtained Refer to bottom of note for scanned in CT report allow bladder rest, will maintain chavez for now, urine is clearing with no signs of hematuria during my examination consult urology will hold on flomax for now given pts propensity for low blood pressure, he took one dose in ED last night and this morning was hypotensive will need TOV likely as outptortho #Tonsillar Carcinoma s/p radical dissection of right side of neck/radiation to head and neck region, s/p PEG tube placement #Total laryngectomy 06/[address] capped [address] in place pt started on oral feedings, soft diet is working with outpt ENT/Speech therapy continue FW G tube flushes consult apartment maintenance as states pt lost 10lbs since surgery #Orthostatic Hypotension: continue midodrine #Elevated trop: suspect in setting of hypotension earlier today, no ecg changes and no reports of CP, will cycle for completeness DVT ppx: SCDS for now in setting of reported hematuria FULL CODE PCP: Tanner Dispo: admit Discussed with in detail at beside. She is requesting to remain at bedside 08/02 as pt is difficult to communicate with given trach status and she provides routine trach care for him. I feel this is in the best interest of the patient and will also aide the staff as well. I spent a total of 60 minutes coordinating, documenting and providing care for this patient excluding time spent in the performance of separately billed services or time spent by another provider/QHP. Pt was see and examined in collaboration with Dr. Guillen, please see addendum History of Present Illness Chief Complaint: Referred by PCP. 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 Hx obtained from outpt chart review and at bedside and pt has difficulty speaking with trach. Of significance pt underwent an Upper GI on 09/12/24 which was notable for Radiation changes in the posterior oropharynx, normal esophagus, gastric tube found in the stomach, normal examined duodenum. It is suspected patient's dysphagia secondary to postsurgical and radiation changes in the oropharynx. It is recommended patient undergo speech and swallow evaluation. Post operatively pt was hypotensive requiring IVF. After they returned home from the procedure patient developed significant abdominal pain. Due to the pain they presented to our ER and unfortunately due to significant wait time they opted to leave and go to [facility]. There he was found to have significant urinary retention and a Chavez catheter was placed. He has never had to have anything like this before. He underwent a CT scan of abdomen pelvis which was concerning for acute cystitis with concern for early ascending bilateral pyelonephritis. He was given a dose of oral tamsulosin and provided a prescription. He was not started on any antibiotics and he was discharged home. This morning upon awakening noted the patient had significant dark/rust colored urine and was concerned for blood. They presented to PCP clinic and referred to ED due to concern regarding Chavez catheter as well as patient was noted to be hypotensive. In ED after receiving IV fluid patient is doing much better. otherwise denies any recent illness, fever, chills, sweats, chest pain, shortness of breath, nausea, vomiting or abdominal pain. He continues to have a G-tube in place, but says ever since his surgery in June he has been able to eat soft foods. On July 10, 2024 he underwent a total laryngectomy and currently has a capped trach in place. Since then his speaking has been very limited. They are trialing him on oral intake to determine if he is able to sustain a nutrition. Unfortunately states that he has lost approximately 10 pounds in the last 2 months. Allergies Allergy/AdvReac Type Severity Reaction Status Date / Time levofloxacin Allergy Intermediate rash all Verified 03/05/24 08:16 over body sulfamethoxazole Allergy Intermediate ITCHING/HIVES Verified 03/05/24 08:16 WITH BACTRIM trimethoprim Allergy Intermediate ITCHING/HIVES Verified 03/05/24 08:16 WITH BACTRIM Nitrate Analogues AdvReac Severe DROP IN Verified 03/05/24 08:16 BP/UNCONSCIOUSNESS lisinopril AdvReac Intermediate ELEVATES Verified 03/05/24 08:16 B/P sertraline AdvReac Intermediate NOSE BLEEDS Verified 03/05/24 08:16 terazosin AdvReac Intermediate PRIAPRISM Verified 03/05/24 08:16 PER [facility] Home Medications Medication Instructions Recorded Confirmed Type citalopram 20 mg tablet 20 mg feeding tube QAM 05/07/18 09/13/24 History food supplemt, lactose-reduced 2 can feeding tube TID 05/07/18 09/13/24 History (Nutritional Drink oral liquid) latanoprost 0.005 % eye drops 1 drp OPB HS 01/30/19 09/13/24 History acetaminophen 500 mg tablet 1,000 mg feeding tube Q6H PRN Pain 03/06/21 09/13/24 History (Tylenol Extra Strength) levothyroxine 88 mcg tablet 88 mcg feeding tube QAM 04/06/21 09/13/24 History (Euthyrox) atorvastatin 40 mg tablet 40 mg feeding tube QAM 06/02/21 09/13/24 History albuterol sulfate 1.25 mg/3 mL 1.25 mg inhalation Q4H PRN 06/03/23 09/13/24 History solution for nebulization Shortness Of Breath Or Wheezing sennosides 8.6 mg-docusate sodium 1 tab PEG QAM PRN constipation #30 02/28/24 09/13/24 Rx 50 mg tablet (Senokot-S) tabs midodrine 10 mg tablet 10 mg feeding tube TIDM PRN 09/13/24 09/13/24 History Hypotension Past Med/Surg History Problem List Urinary retention Hematuria (Acute) Acute pyelonephritis (Acute) Weight loss Recurrent aspiration pneumonia Pneumonia (Acute) On tube feeding diet Tonsil carcinoma (Unknown) RADIATION AND CHEMO Lab test negative for COVID-19 virus (Acute) COPD exacerbation (Acute) Hypoxemia (Acute) Hypokalemia (Acute) COVID-19 (Acute) Elevated lactic acid level (Acute) Cough (Acute) Hypotension (Acute) Chronic orthostatic hypotension COVID-19 (Acute) Head injury, closed, with brief LOC (Acute) Respiratory syncytial virus (RSV) infection (Acute) Acute respiratory failure with hypoxia (Acute) Bronchopneumonia Encounter for pre-operative examination Aspiration pneumonia (Acute) H/O malignant neoplasm of tonsil (Acute) Lactic acidosis Pneumonia (Acute) Hypoxemia (Acute) Sepsis (Acute) Lab test negative for COVID-19 virus (Acute) Acute hypokalemia (Acute) DVT prophylaxis Protein calorie malnutrition Hypokalemia Chronic bronchitis Ex-smoker Hypoxia (Acute) Influenza A (Acute) COVID-19 (Acute) Rigors (Acute) Confusion (Acute) Fever (Acute) SIRS (systemic inflammatory response syndrome) Blood pressure instability (Acute) [facility] Cardiology manages; currently using midodrine, and nitro PRN hypo/hypertension; per , cardiac workup wnl aside from BP changes Aspiration pneumonia hx - CAN NOT TAKE FOOD/LIQUIDS ORALLY Uses feeding tube Hypothyroidism Glaucoma Hypertension (Acute) Benign prostatic hyperplasia (Unknown) Chronic back pain Depression Gastroparesis COPD (chronic obstructive pulmonary disease) with emphysema H/O esophagogastroduodenoscopy (Unknown) WITH PLACEMENT PEG TUBE S/P arthroscopic knee surgery (Unknown) RT S/P colonoscopy (Unknown) Medical History Abnormal CT scan, neck 07/2022 [facility] - "7 mm lytic lesion within the C3 vertebral body." Per , outpt imaging since being d/c from hospital has r/o mets. History of recent hospitalization 07/2022 [facility] - pneumonia Slow to wake up after anesthesia Speech difficult to understand Hearing loss History of COVID-19 05/2021 treated for pneumonia at [facility]- 06/13/22 admitted to [facility] 06/2022with covid pneumonia, flu, and RSV 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 Degenerative disc disease Osteoarthritis GERD (gastroesophageal reflux disease) Anxiety Asthma rare use of PRN inh Orthostatic hypotension Surgical History History of radical neck dissection S/P percutaneous endoscopic gastrostomy (PEG) tube placement History of neck surgery LUMPECTOMY History of tooth extraction Family History Brother Family history of diabetes mellitus Social History Smoking Status: Never smoker Tobacco Type: Cigarettes Second Hand Exposure: No; Do You Dip or Chew Tobacco: No; Hx Alcohol Use: Yes Alcohol type: beer Hx Substance Use: No Preferred Language: Latvian 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 Ability: Unable 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 Ability 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, 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 Boss Required: No Beliefs That Will Affect Care: None marital status: Current Living Situation: Spouse Current Living Situation Comment: Personal Home Feels Safe at Home: Yes Assistive Devices: Glasses Review of Systems 2 Review of Systems: All systems reviewed & are unremarkable except as noted in HPI & below Physical Exam 2 Physical Exam: Constitutional: Thin, Fraile, M, alert, unable to speak due to trach, vitals as above, NAD, sitting up in bed Head: Normocephalic, Atraumatic Eyes: PERRL, conjunctivae normal, anicteric sclerae ENMT: external ear and nose normal, oropharynx dry membranes Neck: +Trach capped Respiratory: normal respiratory effort, lungs clear to auscultation, no wheeze, rales, rhonchi. Normal insp/exp effort, no accessory muscle use Cardiovascular: RRR, no murmur, no edema Vessels: no JVD or carotid bruit Chest: normal inspection of chest Abdomen: normal bowel sounds, soft, nontender, no hepatosplenomegaly +Gtube Musculoskeletal: no cyanosis or clubbing, AROM x 4 Skin: no rashes, warm and dry normal turgor Neurologic: no face palsy, no dysarthria CN's II-XI intact bilaterally and moves all extremities Psychiatric: Alert, euthymic affect Lymphatic: no cervical or axillary lymphadenopathy : +chavez draining yellow urine Results & Data Results & Data Vital Signs (Past 12 Hours) Vital Signs Temp Pulse Resp BP Pulse Ox O2 Del Method 09/13/24 12:24 Room Air 09/13/24 12:23 Room Air 09/13/24 12:00 59 L 09/13/24 11:52 37.2 C 57 L 14 144/77 H 98 Room Air Laboratory Results I have independently reviewed and interpreted patient's admitting labs including CBC, CMP, procal, lipase mag and troponin. Diagnostic Findings Chest X-Ray 09/13/24 12:06 XR chest 1V portable CLINICAL HISTORY: Sepsis COMPARISON STUDY: 07/30/2024 FINDINGS: Heart size and pulmonary vasculature are normal. No effusion, consolidation, or pneumothorax. IMPRESSION: No acute findings. ACT 112: Negative or not required by law. Electronically signed by: Chepe Sandoval M.D. 09/13/2024 12:27 PM Medications Administered Medication List Discontinued Medications Sodium Chloride (Nss) 1,000 mls @ 999 mls/hr IV .Q1H1M ONE Stop: 09/13/24 13:06 Last Admin: 09/13/24 12:46 Dose: 999 mls/hr Documented By: TAHIR Piperacillin Sod/Tazobactam Sod (Zosyn) 4.5 gm in 100 mls @ 200 mls/hr IV NOW ONE; Protocol Stop: 09/13/24 12:40 Last Admin: 09/13/24 12:46 Dose: 200 mls/hr Documented By: TAHIR COVID-19 Results Results COVID-19 Adm Lab Results: 2 RBC 4.03 M/uL (4.70-6.10) L 09/13/24 WBC 6.38 K/ul (4.8-10.8) 09/13/24 Hgb 12.6 g/dl (14.0-18.0) L 09/13/24 Hct 39.2 % (42.0-52.0) L 09/13/24 Plt Count 171 K/uL (130-400) 09/13/24 Neutrophils (%) (Auto) 77.0 % 09/13/24 Lymphocytes (%) (Auto) 10.0 % 09/13/24 Monocytes # (Auto) 0.68 K/uL (0.11-0.59) H 09/13/24 Eosinophils # (Auto) 0.11 K/uL (0.00-0.50) 09/13/24 Immature Granulocyte % (Auto) 0.3 % 09/13/24 Neutrophils # (Auto) 4.91 K/uL (1.40-6.50) 09/13/24 Lymphocytes # (Auto) 0.64 K/uL (1.20-3.40) L 09/13/24 Monocytes # (Auto) 0.68 K/uL (0.11-0.59) H 09/13/24 Eosinophils # (Auto) 0.11 K/uL (0.00-0.50) 09/13/24 Basophils # (Auto) 0.02 K/uL (0.00-0.20) 09/13/24 Immature Granulocyte # (Auto) 0.02 K/uL (0.01-0.20) 5 Na 138 mmol/L (136-145) 09/13/24 K 3.8 mmol/L (3.5-5.1) 09/13/24 Cl 102 mmol/L (98-107) 09/13/24 CO2 31 mmol/L (21-32) 09/13/24 Anion Gap 5 (3-11) 09/13/24 BUN 18 mg/dl (6-23) 09/13/24 Creatinine 1.14 mg/dl (0.6-1.4) 09/13/24 BUN/Creatinine Ratio 15.8 (10-20) 09/13/24 Glucose Level 86 mg/dl (70-99(Fasting)) 09/13/24 Ca 9.6 mg/dl (8.6-10.3) 09/13/24 Total Bilirubin 0.9 mg/dl (0.2-1.0) 09/13/24 Direct Bilirubin 0.3 mg/dl (0-0.2) H 09/13/24 AST/SGOT 20 U/L (13-39) 09/13/24 ALT/SGPT 18 U/L (7-52) 09/13/24 Alkaline Phosphatase 84 U/L (34-104) 09/13/24 Total Protein 7.1 gm/dl (6.0-8.3) 09/13/24 Albumin 4.0 gm/dl (3.4-5.0) 09/13/24 Globulin 3.1 gm/dl (2.5-4.0) 09/13/24 Albumin/Globulin Ratio 1.3 (0.9-2) 09/13/24 Procalcitonin 0.04 ng/ml (0-0.5) 09/13/24 PTT 28 Seconds (21-31) 09/13/24 INR 1.0 (0.9-1.1) 09/13/24 COVID-19 PCR NEGATIVE (Negative) 09/13/24 Influenza Virus Type A (PCR) Negative (Neg) 09/13/24 Influenza Virus Type B (PCR) Negative (Neg) 09/13/24 Chest X-Ray 09/13/24 Code Status & VTE Plan Code Status FULL CODE Supervising Physician Co-Signing Physician Notes 79-year-old male with PMH of CAD, HTN, orthostatic hypotension on midodrine, HLD, COPD, malignant neoplasm of tonsil status post radical dissection of right side of neck/radiation to head and neck region and status post PEG tube placement, status post laryngectomy June 2024 now on soft diet [PEG tube in place due to patient not being able to maintain his baseline weight], hypothyroidism presents to the ED at referral of Naveed Love due to patient's low blood pressure being difficult to manage with multiple doses of midodrine per patient's . She reports that his blood pressure has been low for last few days and it has been difficult to manage with midodrine. They had endoscopy procedure yesterday at [place] and noted to have low blood pressure, given IV fluid and sent home. During the day, he again had low blood pressure and he was taken to [facility] where he was noted to have urinary retention and Chavez was put, he was sent home. He reported his back pain improved after Chavez was put in. In the morning he had again low blood pressure requiring as multiple tabs of midodrine and patient's brought him to the ED. CT scan of the abdomen pelvis from [facility] s/o early pyelonephritis. Admitting CXR with no acute finding. Admitting lab, WBC WNL, VBG WNL, renal function fairly WNL, liver function fairly WNL, troponin mildly elevated. Lipase WNL. Procalcitonin negative. UA appears cloudy. Ascending urinary tract infection: Continue with Zosyn, maintain Chavez catheter for urinary retention, urology consult, follow admitting urine culture and blood culture. Likely demand ischemia: The second of in the setting of acute illness, trend troponin x 1. Patient denies any chest pain. Status post laryngectomy, tracheostomy status: c/w routine care, pt w/ no difficulty breathing or increased cough. Apartment Maintenance consult for nutrition mx. On exam: GENERAL: Alert , awake. NAD, on RA. Appears lean, thin, frail, weak, ill. HEENT: No pallor, no icterus. Pupils equal, round and reactive to light. Oral mucosa moist. status tracheostomy. NECK: No JVD, no neck masses. HEART: S1 and S2 heard. Regular rate and rhythm. No murmur, no gallop. RESPIRATORY SYSTEM: Normal AP diameter. No accessory muscle use. No wheezing, occ b/l crackles. ABDOMEN: Soft, bowel sounds present, nontender, no distention. PEG tube in situ. CENTRAL NERVOUS SYSTEM: No facial droop. can't articulate (s/p laryngectomy). Obeys simple commands. Moves extremities. EXTREMITIES: No edema, no erythema seen. No CVA angle tenderness. UC w/ light yellow urine in bag. I have seen and examined the patient and have discussed the case with the provider above. I agree with the assessment and plan as stated. Time spent separately: 30 min
--- NOTE | 2024-09-13 15:27 | Urology Consultation ---
Date of Consultation September 13, 2024 Assessment & Plan (1) Urinary retention: (2) Hematuria: 79-year-old male admitted for orthostatic hypotension, urinary retention, hematuria and concern for infection. Patient is afebrile and hemodynamically stable Labs reviewedcreatinine 1.14, WBC 6.38, hemoglobin 12.6 Urinalysis showed 2+ leukocytes, >50 WBC, >20 RBC, negative for bacteria Urine and blood cultures are pending CT imaging performed at outside facilityBPH noted, concern for ascending infection per admitting notes Imaging not available to review in synapse at this time Low suspicion for pyelonephritis clinically Continue with empiric antibiotics and follow cultures Post op urinary retention likely due to underlying BPH in setting of anesthesia Polk currently in place for management of urinary retention Recommend maintain Polk catheter for at least 1 week Hematuria may be due to decompression of distended bladder and/or trauma Urine has since clearedcontinue to monitor Okay to stop Tamsulosin due to significant orthostatic hypotension Will arrange outpatient follow-up with our service for voiding trial and further management Discussed possible cystoscopy as outpatient to finalize workup will sign off, please contact our service with any additional questions or concerns History of Present Illness Reason for Consultation: urinary retention and hematuria, now resolved Requesting Physician: Dr. 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 Postoperatively he became hypotensive requiring IV fluids. After discharge and return home, he developed significant abdominal pain and presented to [facility] ED for evaluation. He was found to have urinary retention and a Polk catheter was placed. Per admitting notes, CT at outside facility revealed significant BPH with bladder outlet obstruction, cystitis and early ascending pyelonephritis bilaterally. Patient was discharged from [facility] ED with Polk catheter and started on Tamsulosin. Patient presented to PCP today with concern of rust/bloody colored urine in Polk. He was significantly hypotensive at PCP and was referred to the ED for further evaluation. On arrival to ED, he was afebrile and hemodynamically stable. Lab work showed creatinine 1.14, WBC 6.38, hemoglobin 12.6, lactate 1.4. Urinalysis showed 2+ blood, 2+ LE, >50 WBC, >20 RBC, 0-2 epithelial cells, negative for bacteria. ED course: IV fluids and Zosyn. Patient was admitted to the hospital medicine service for orthostatic hypotension, urinary retention and concern for acute pyelonephritis. Urology is consulted for urinary retention and hematuria, now resolved. Patient seen and examined at bedside. in room. Patient has difficulty speaking with trach. helps provide history. She reports patient developed generalized back pain and abdominal pain following his surgery yesterday. Symptoms resolved immediately after Polk catheter was placed. Urine initially was clear yellow, then turned to rust colored this morning. No recent fever or chills. No nausea or vomiting. He denies flank or abdominal pain at present. Polk intact, hematuria resolved. Denies constipation. Last BM 2 days ago. Denies prior urology evaluations. No prior history of urinary retention. Reports some LUTS at baseline including nocturia. Former smoker. Allergies Allergy/AdvReac Type Severity Reaction Status Date / Time levofloxacin Allergy Intermediate rash all Verified 03/05/24 08:16 over body sulfamethoxazole Allergy Intermediate ITCHING/HIVES Verified 03/05/24 08:16 WITH BACTRIM trimethoprim Allergy Intermediate ITCHING/HIVES Verified 03/05/24 08:16 WITH BACTRIM Nitrate Analogues AdvReac Severe DROP IN Verified 03/05/24 08:16 BP/UNCONSCIOUSNESS lisinopril AdvReac Intermediate ELEVATES Verified 03/05/24 08:16 B/P sertraline AdvReac Intermediate NOSE BLEEDS Verified 03/05/24 08:16 terazosin AdvReac Intermediate PRIAPRISM Verified 03/05/24 08:[address] [facility] Home Medications Medication Instructions Recorded Confirmed Type citalopram 20 mg tablet 20 mg feeding tube QAM 05/07/18 09/13/24 History food supplemt, lactose-reduced 2 can feeding tube TID 05/07/18 09/13/24 History (Nutritional Drink oral liquid) latanoprost 0.005 % eye drops 1 drp OPB HS 01/30/19 09/13/24 History acetaminophen 500 mg tablet 1,000 mg feeding tube Q6H PRN Pain 03/06/21 09/13/24 History (Tylenol Extra Strength) levothyroxine 88 mcg tablet 88 mcg feeding tube QAM 04/06/21 09/13/24 History (Euthyrox) atorvastatin 40 mg tablet 40 mg feeding tube QAM 06/02/21 09/13/24 History albuterol sulfate 1.25 mg/3 mL 1.25 mg inhalation Q4H PRN 06/03/23 09/13/24 History solution for nebulization Shortness Of Breath Or Wheezing sennosides 8.6 mg-docusate sodium 1 tab PEG QAM PRN constipation #30 02/28/24 09/13/24 Rx 50 mg tablet (Senokot-S) tabs midodrine 10 mg tablet 10 mg feeding tube TIDM PRN 09/13/24 09/13/24 History Hypotension Patient History Medical History Abnormal CT scan, neck 07/2022 [facility] - "7 mm lytic lesion within the C3 vertebral body." Per , outpt imaging since being d/c from hospital has r/o mets. History of recent hospitalization 07/2022 [facility] - pneumonia Slow to wake up after anesthesia Speech difficult to understand Hearing loss History of COVID-19 05/2021 treated for pneumonia at [facility]- 06/13/22 admitted to [facility] 06/2022with covid pneumonia, flu, and RSV 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 Degenerative disc disease Osteoarthritis GERD (gastroesophageal reflux disease) Anxiety Asthma rare use of PRN inh Orthostatic hypotension Surgical History History of radical neck dissection S/P percutaneous endoscopic gastrostomy (PEG) tube placement History of neck surgery LUMPECTOMY History of tooth extraction Family History Brother Family history of diabetes mellitus Social History Smoking Status: Never smoker Tobacco Type: Cigarettes Second Hand Exposure: No; Do You Dip or Chew Tobacco: No; Hx Alcohol Use: Yes Alcohol type: beer Hx Substance Use: No Preferred Language: [place] 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 Ability: Impaired 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 Ability 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, 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 Laboratory Operations Coordinator Required: No Beliefs That Will Affect Care: None marital status: Current Living Situation: Spouse Current Living Situation Comment: Personal Home Feels Safe at Home: Yes Assistive Devices: Glasses Review of Systems Review of Systems: All systems reviewed & are unremarkable except as noted in HPI & below Physical Exam Constitutional: + thin; no acute distress Neck: + tracheostomy present (capped) Respiratory: + cough; no respiratory distress and no labored breathing Gastrointestinal (Abdomen): Inspection/Auscultation: abdomen not distended Neurologic: moves all extremities and awake Psychiatric: Orientation: alert, oriented x 3 and cooperative Genitourinary: Polk draining clear yellow urine Results & Data Vital Signs (Past 12 Hours) Vital Signs Temp Pulse Resp BP Pulse Ox O2 Del Method 09/13/24 14:30 57 L 23 95 09/13/24 14:30 121/72 09/13/24 14:30 121/72 09/13/24 14:27 70 23 100 09/13/24 14:18 62 20 96 09/13/24 14:09 64 17 98 09/13/24 14:00 140/79 09/13/24 13:57 63 19 97 09/13/24 13:54 64 23 98 09/13/24 13:42 63 21 97 09/13/24 13:30 61 18 97 09/13/24 13:30 136/74 09/13/24 13:30 136/74 09/13/24 13:30 136/74 09/13/24 13:30 136/74 09/13/24 13:24 64 19 97 09/13/24 13:12 61 18 95 09/13/24 13:09 61 23 96 09/13/24 13:00 140/79 09/13/24 12:54 58 L 20 95 09/13/24 12:30 134/69 09/13/24 12:30 134/69 09/13/24 12:30 58 L 19 99 09/13/24 12:24 Room Air 09/13/24 12:23 Room Air 09/13/24 12:21 56 L 19 99 09/13/24 12:12 57 L 19 99 09/13/24 12:08 123/72 09/13/24 12:03 58 L 21 99 09/13/24 12:00 59 L 09/13/24 11:54 56 L 17 97 09/13/24 11:52 37.2 C 57 L 14 144/77 H 98 Room Air 09/13/24 11:48 144/77 H PG Care Time/CCT Total # of Minutes Spent Total Time Spent with Patient: Total time spent is greater than 50% in coordination of care (as documented) at patient's floor/unit and/or counseling patient: Coding Level of Care Code 25764 INT INP/OBS CARE 2/55MIN Diagnoses Urinary retention R33.9 Hematuria R31.0 Hematuria type: gross (2) Hematuria Hematuria type: gross Qualified Code(s): R31.0 - Gross hematuria
[2024-09-13] MEDS ORDERED: MIDODRINE HCL 10 MG TAB PO PRN (16:06)
[2024-09-13] MEDS ORDERED: ALUMINUM/MAGNESIUM SUSP 30 ML UDC PO PRN (16:06)
[2024-09-13] MEDS ORDERED: ONDANSETRON INJ 2 MG/ML 2 ML VIAL IV PRN (16:06)
[2024-09-13] MEDS ORDERED: ALBUTEROL 0.083% NEBU SOLN 3 ML VIAL INH PRN (16:12)
[2024-09-13] MEDS: TUBE FEEDING WATER FLUSH GT SCH (17:40)
[2024-09-13] MEDS: PIPERACILLIN/TAZOBACTAM 4.5 GM/100 ML BAG IV SCH (17:40)
--- OUTSIDE RECORDS SUMMARY | 2024-09-13 19:51 | External Medical Summary | Summary of Care ---
Author Name Unknown Organization [facility] Address [address] [place] [address] Phone [phone] Care Team Providers Care Frame Fixer Name Role Phone MarinaPatricia ibanez Cornel REHMAN Primary Care Provider [phone] Reason for Visit * Auth/Cert Specialty Diagnoses / Procedures Referred By Christiano t Referred To Contact Diagnoses Esophageal stenosis S/P laryngectomy History of radiation to head and neck region History of malignant neoplasm of tonsil Esophageal stenosis [K22.2] S/P laryngectomy [Z90.02] History of radiation to head and neck region [Z92.3] History of malignant neoplasm of tonsil [Z85.818] Procedures EGD, FLEXIBLE, DIAGNOSTIC ESOPHAGOGASTRODUODENOSCOPY (EGD), FLEXIBLE, TRANSORAL, DIAGNOSTIC ESOPHAGOGASTRODUODENOSCOPY (EGD), FLEXIBLE, TRANSORAL, DIAGNOSTIC Sera Iglesias MD [address] [place] [address] Phone: tel: fax: ENDO [facility], Endoscopy [address], [facility] [address], [address] [place] [address] Phone: tel: Referral ID Status Reason Start Date Expiration Date Visits Re quested Visits Authorized [id number] Encounter Details Date Type Department Care Team (Late st Contact Info) Description 09/12/2024 8:43 AM EST - 09/12/2024 12:38 PM [facility] Hospital Encounter END[facility], Endoscopy [address], [facility] [address], [address] [place] [address] Sera Iglesias MD [address] [place] [address] Upper GI Endoscopy Discharge Disposition: Home - Self Care Allergies Active Allergy Reactions Criticality Noted Date Comments Sulfamethoxazole-Trimethoprim Hives Medium 2016 Levofloxacin Rash Low 03/03/2017 Lisinopril 03/12/2021 Raises bp Nitrates, Organic 09/07/2000 Unconsciousness Sertraline Low 02/09/2019 Other reaction(s): NOSE BLEEDS Sulfamethoxazole Itching High 02/09/2019 Terazosin 12/08/2001 priaprism Trimethoprim Itching High 02/09/2019 documented as of this encounter (statuses as of 09/13/2024) Medications Acetaminophen 500 MG Oral Capsule Administer 2 Capsules into G tube every 6 hours as needed for Pain, Moderate. 03/10/20 21 Active Glucose 40 % Oral Gel (Glutose 15) 01/20/20 21 Active Aspirin EC 81 MG Oral Tablet Delayed Release Take 1 Tab by mouth daily. 90 Tab 3 04/24/20 21 Active Additional Information Patient not taking.Reported on 09/08/2024 GunosyToMozy Ultra In Vitro Strip (Glucose Blood)Indications :Hypoglycemia USE DIRECTED FOUR TIMES A DAY NEEDED FOR HYPERGLYCEMIA (HIGH SUGAR). DX:E11.9 100 Strip 5 10/29/19 23 Active Albuterol Sulfate 1.25 MG/3ML Inhalation Nebulization SolutionIndicatio ns:Wheezing,Bronc hitis, complicated,COPD exacerbation (HCC),COPD, group C, by GOLD 2017 classification (HCC) Inhale 1 vial via nebulizer every 4 hours as needed for Shortness of Breath or Wheezing. 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 90 Tablet 3 4 4:03 PM EST 10/18/19 24 Active Sennosides-Docusa te Sodium 8.6-50 MG Oral Tablet (Senokot-S) 1 tab Via Peg Tube daily in the morning As Needed for constipation 30 Tablet 02/28/20 24 Active Stiolto Respimat 2.5-2.5 MCG/ACT Inhalation Aerosol Solution (Tiotropium-Oloda terol) Inhale 2 Puffs by mouth in the morning. 4 g 9 4 3:49 PM EDT 04/19/20 Active Azithromycin 200 MG/5ML Oral Suspension Reconstituted (Zithromax)Indica tions:Acute maxillary sinusitis, recurrence not specified take 2 and 1/2 teaspoonful (12.5ml) by mouth on day 1 then 1 and 1/4 teaspoonful (6.25ml) on days 2-5 45 mL 4 3:25 PM EST 06/05/20 Active Additional Information Patient not taking.Reported on 09/08/2024 Citalopram Hydrobromide 20 MG Oral Tablet (CeleXA)Indicatio ns:Panic attacks Take 1 Tablet by mouth in the morning. 90 Tablet 3 4 9:16 AM EST 07/10/20 24 Active Misc. Devices Cool mist humidification device 1 Each 07/14/20 24 Active Misc. Devices Portable suction device 1 Each 07/14/20 24 Active Misc. Devices 14 Fr flexible suction catheters 30 Each 5 07/14/20 24 Active Calcium Carbonate Antacid 750 MG Oral Tablet Chewable (Tums E-X) Administer 2 Tablets into G tube at noon and 2 Tablets in the evening. 30 Tablet 3 4 12:38 PM EST 07/18/20 24 Active Additional Information Patient not taking.Reported on 09/08/2024 Bacitracin Zinc 500 UNIT/GM External Ointment Apply topically to affected area 2 times a day. Apply to neck and leg incisions 3 times daily. 113.6 g 4 12:38 PM EST 07/18/20 Active Vitamin B-12 1000 MCG Oral Tablet (Cyanocobalamin) Administer 1 Tablet into G tube in the morning. 30 Tablet 3 4 12:38 PM EST 07/19/19 Active Additional Information Patient not taking.Reported on 09/04/2024 Water For Irrigation, Sterile (WATER FLUSH) TF Administer 250 mL into G tube 5 times a day. 20 Each 3 07/18/20 24 Active Chlorhexidine Gluconate 0.12 % Mouth/Throat Solution (Periogard) Apply 15 mL to inside of cheek in the morning and 15 mL in the evening. 473 mL 4 12:38 PM EST 07/18/20 24 Active Additional Information Patient not taking.Reported on 07/26/2024 Levothyroxine Sodium 88 MCG Oral Tablet (Levoxyl) Administer 1 Tablet into G tube daily first thing in the morning. (at least 30 min prior to breakfast or other meds) 30 Tablet 07/19/19 25 Active Ondansetron HCl 4 MG/5ML Oral Solution (Zofran) Take 5 mL by mouth every 8 hours as needed for Nausea or Vomiting. 50 mL 4 12:38 PM EST 07/18/20 24 Active Additional Information Patient not taking.Reported on 07/26/2024 Midodrine HCl 10 MG Oral Tablet (Proamatine) take 1 tablet by mouth three times daily with meals 270 Tablet 3 08/07/19 25 Active Latanoprost 0.005 % Ophthalmic Solution (Xalatan) Instill 1 Drop into both eyes every evening. 10 mL 3 5 10:23 AM EST 09/11/19 25 Active cloNIDine HCl 0.1 MG Oral Tablet (Catapres)Indicat ions:HTN, goal below 150/90 Take 1 Tablet by mouth in the morning, 1 Tablet at noon and 1 Tablet before bedtime when Blood Pressure is greater than 180. 90 Tablet 11 09/08/19 25 Active Additional Information Patient not taking.Reported on 09/12/2024 Latanoprost 0.005 % Ophthalmic Solution (Xalatan) Instill 1 Drop into both eyes every evening. 10 mL 3 4 9:30 AM EST 08/19/19 24 025 Disconti nued(Ref ill) cloNIDine HCl 0.1 MG Oral Tablet (Catapres)Indicat ions:HTN, goal below 150/90 Take 1 Tablet by mouth in the morning and 1 Tablet at noon and 1 Tablet before bedtime. Take when BP > 180. 90 Tablet 11 4 10:29 AM EDT 01/19/20 24 025 Disconti nued(Ref ill) documented as of this encounter (statuses as of 09/13/2024) Active Problems Problem Noted Date Diagnosed Date Coronary artery disease invo lving sioux coronary artery of sioux heart without angina pectoris 10/25/2023 MRI contraindicated due to metal implant 023 Malnutrition of moderate degree 08/06/2022 History of 2019 novel coronavirus disease [...] with esophagitis 04/17/2015 Gastroparesis 04/25/2007 Dyslipidemia 01/17/2007 documented as of this encounter (statuses as of 09/13/2024) Resolved Problems Problem Noted Date Diagnosed Date Resolved Date COPD exacerbation 08/06/2022 10/25/2023 Overview (10/25/2023): history Unspecified protein-calorie malnutrition 09/11/2020 02/08/2021 Panic [...] 10/23/2008 02/16/2013 ACTIVE CASE MANAGEMENT-Yanet Landa Rn- [phone] 09/28/2007 02/16/2008 Malignant neoplasm soft tissue head 08/10/2007 12/15/2016 Thrush 08/09/2007 02/16/2013 Other constipation 08/09/2007 3 Dehydration 07/26/2007 02/16/2013 Sialoadenitis 07/24/2007 03/23/2017 Loss of teeth due to trauma, extraction, or periodontal disease 05/02/2007 02/16/2013 ADVANCE DIRECTIVE INFORMATION 03/24/2007 02/08/2021 Overview (03/24/2007): No, Advance Directive brochure given to patient. States he did not receive booklet, another booklet given with instructions. Dental caries extending into dentine 03/09/2007 02/16/2013 Dental caries extending into dentine 03/09/2007 03/11/2007 Chronic periodontitis, generalized 03/09/2007 03/23/2017 Malignant neoplasm of tonsil 03/09/2007 12/15/2016 Overview (03/09/2007): right tonsil and neck HTN, goal below 130/80 01/17/200709/08 Hypoglycemia 05/05/2004 02/08/2021 Hyperplasia of prostate with out lower urinary tract symptoms (LUTS) 07/26/2003 02/08/2021 Lumbago 12/15/2001 03/17/2018 Esophageal reflux 04/17/2015 Major depressive disorder Overview (05/11/2017): ICD-10 update of inactive term Benign prostatic hyperplasia 09/09/2018 Overview (04/19/2017): ICD-10 update of inactive term ICD-10 update of inactive term Asthma with severity to be determined 07/20/2012 Overview (10/28/2015): ICD-10 update of inactive term Chronic constipation 021 Chronic constipation 009 Overview (08/16/2008): Resolved per Duplicate Protocol #2. documented as of this encounter (statuses as of 09/13/2024) Immunizations Name Administration Dates Next Due COVID-19 mRNA, LNP-s, No Pre serve, 2-Dose Series (KeyOwner) 02/18/2022,10/11/2020,09/13/2020 Pneumococcal Conjugate Vacc, 13 Valent (Prevnar) 10/26/2014 Pneumococcal Conjugate Vacci ne, 20-valent ([id number]) 04/10/2024 Pneumococcal Polysaccharide PPV23 (Pneumovax) 02/24/2016,04/19/2008 Rabies Vaccine Diploid cell (Imovax) ,02/19/2017,02/12/2017,02/08,02/05/2017 Seasonal Influenza Vac., MDV , IM, 0.5 mL (Fluzone) 04/10/2014,05/15/2013,04/14/2012,05/28,05/23/2009,04/19/2008,04/25/2007 Seasonal Influenza Virus Vac cine, Unspecified Formulation 05/01/2022 Seasonal Influenza, High Dos e, Trivalent, PF, IM (Fluzone HD) 04/20/2024,05/02/2019,05/19/2017 Seasonal Influenza, PF, 6 M & above, IM , (FluLaval or Fluzone) 05/04/2019,05/16/2018 Seasonal Influenza, Quadriva lent Hd (Fluzone Hd) 04/06/2023,05/01/2022,04/09/2021 Seasonal Influenza, Quadriva lent Hd, 65+ Yrs 05/08/2020 Seasonal Influenza, Quadriva lent, No Preserve, IM 04/09/2016,04/17/2015 TDAP, Age 7 and older, IM (Adacel) 04/20/2024, Varicella Zoster Vaccine (Adult) 04/19/2012 documented as of this encounter Social History Tobacco Use Types Packs/Day Years Used Date Smoking Tobacco: Former Cigarettes 0.5 5 1 08/19/1973 - 06/18/1979 Smokeless Tobacco: Never Alcohol Use Standard Drinks/Week Comments Not Currently 1 (1 standard drink = 0.6 oz pur e alcohol) 1 drink a day PHQ-2 Answer Date Recorded PHQ Adult Total Score 0 02/18/2024 Hunger Vital Sign Answer Date Recorded Within the past 12 months, y ou worried that your food would run out before you got the money to buy more. Never true 02/18/20 24 Within the past 12 months, t he food you bought just didn't last and you didn't have money to get more. Never true 02/18/2024 Childcare Answer Date Recorded Do you feel overwhelmed with taking care of a child, family member or friend? No 02/18/2024 Does your family need help f inding childcare? (Household - for ages 0-17 years) Not on file 02/18/2024 Clothing Answer Date Recorded Have you been unable to get clothing when it was really needed? No 02/18/2024 Is your family able to get c lothes or diapers when needed? (Household - for ages 0-17 years) Not on file 02/18/2024 Personal Safety Answer Date Recorded Do you feel unsafe or have concerns for your saf ety? No 02/18/2024 Do you have concerns for you r family's safety? (Household - for ages 0-17 years) Not on file 02/18/2024 Utilities Answer Date Recorded Do you have trouble paying y our heating, water, or electric bill? No 02/18/2024 Is your family able to pay t he heat, water, or electric bill? (Household - for ages 0-17 years) Not on file 02/18/2024 Does your family have access to good internet? (Household - for ages 0-17 years) Not on file 02/18/2024 Employment Status Answer Date Recorded Are you unemployed or without regular income? No 02/18/2024 Does the household have a re gular source of income? (Household - for ages 0-17 years) Not on file 02/18/2024 Social Connections Answer Date Recorded How often do you feel lonely or isolated from th ose around you? Never 02/18/2024 Financial Resource Strain Answer Date R ecorded Do you have any trouble payi ng for your medications, or do you think you might in the future? No 02/18/2024 Does your family have troubl e paying for medicine? (Household - for ages 0-17 years) Not on file 02/18/2024 Transportation Needs Answer Date Record ed Do you have trouble getting a ride to medical visits or work? (Adult - for ages 18 years and over) Not on file 02/18/2024 Does your family have a hard time getting a ride to doctors visits? (Household - for ages 0-17 years) Not on file 02/18/2024 Has lack of transportation k ept you from medical appointments, meetings, work, or from getting things needed for daily living? Check all that apply. No 02/18/2024 Do you (or your family) have trouble finding or paying for a ride (transportation)? (Household - for ages 0-17 years) Not on file 02/18/2024 Housing Stability Answer Date Recorded Do you currently live in a s helter or have no steady place to sleep at night? No 02/18/2024 Do you think you are at risk of becoming homeless? (Adult - for ages 18 years and over) Not on file 02/18/2024 Does your family worry about paying for your home or becoming homeless? (Household - for ages 0-17 years) Not on file 0 02/18/2024 Are you homeless or worried that you might be in the future? No 02/18/2024 Are you (or your family) cyrus eless or worried that you might be in the future? (Household - for ages 0-17 years) Not on file Food Insecurity Answer Date Recorded Do you need food for this week? No 02/18/2024 Are you able to get enough f ood for your family? (Household - for ages 0-17 years) Not on file 02/18/2024 Does your family need food t his week? (Household - for ages 0-17 years) Not on file 02/18/2024 Do you always have enough fo od for your family? (Household - for ages 0-17 years) Not on file 02/18/2024 Food Insecurity Answer Date Recorded Within the past 12 months, y ou worried that your food would run out before you got the money to buy more. Never true 02/18/20 24 Within the past 12 months, t he food you bought just didn't last and you didn't have money to get more. Never true 02/18/2024 Do you need food for this week? No 02/18/2024 Sex and Gender Information Value Date Recorded Sex Assigned at Male 12/02/2018 10:35 AM EDT Legal Sex Male 5:54 AM EST Gender Identity Male 12/02/2018 10:35 AM EDT Sexual Orientation Straight 12/02/2018 10 :35 AM EDT Occupation Industry Job Start Date Job End Date [employer] Not on file Not on file Not on file documented as of this encounter Last Filed Vital Signs Vital Sign Reading Time Taken Comments Blood Pressure 100/61 09/12/2024 12:30 PM EST Pulse 60 09/12/2024 12:30 PM EST Temperature 36 C (96.8 F) 09/12/2024 10:30 AM EST Respiratory Rate 18 09/12/2024 12:30 PM EST Oxygen Saturation 95% 09/12/2024 12:30 PM EST Inhaled Oxygen Concentration - - Weight 80.3 kg (177 lb 1.6 oz) 09/12/2024 9:00 A M EST Height - - Body Mass Index 24.7 07/10/2024 4:00 PM EST documented in this encounter Functional Status * Are you deaf or do you have serious difficulty hearing? Answer Date of Assessment Author No 07/10/2024 4:47 PM EST Iglesia Chowdary RN * Are you blind or do you have serious difficulty seeing, even when wearing glasses? Answer Date of Assessment Author No 07/10/2024 4:47 PM EST Iglesia Chowdary RN * Do you have serious difficulty walking or climbing stairs? (5 years old or older) Answer Date of Assessment Author No 07/10/2024 4:47 PM EST Iglesia Chowdary RN * Do you have difficulty dressing or bathing? (5 years old or older) Answer Date of Assessment Author No 07/10/2024 4:47 PM Iglesia Cristina RN * Because of a physical, mental, or emotional condition, do you have difficulty doing errands alone such as visiting a doctors office or shopping? (15 years old or older) Answer Date of Assessment Author No 07/10/2024 4:47 PM Iglesia Cristina RN documented as of this encounter Mental Status * Because of a physical, mental, or emotional condition, do you have serious difficulty concentrating, remembering, or making decisions? (5 years old or older) Answer Entry Date Author No 07/10/2024 4:47 PM Iglesia Cristina RN documented in this encounter H&P Notes * Sera Iglesias MD - 09/12/2024 9:00 AM EST Endoscopy Pre-Procedure Assessment Name: Rodney Canseco Date: 09/12/2024 Time: 9:00 AM Procedure(s): Upper GI Endoscopy; with Indication(s) of dysphagia or odynophagia Endoscopy Pre-Procedure Assessment: Prior to the procedure, the patient is identified. The patient's history, medications and allergieshave been reviewed. The patient is competent. The risks and benefits of the proposed procedure and the planned sedation have been discussed with the patient. All questions have been answered and informed consent for the procedure has been obtained. Prior to Admission medications Medication Sig Last Dose Discont. Latanoprost 0.005 % Ophthalmic Solution (Xalatan) Instill 1 Drop into both eyes every evening. cloNIDine HCl 0.1 MG Oral Tablet (Catapres) Take 1 Tablet by mouth in the morning, 1 Tablet at noonand 1 Tablet before bedtime when Blood Pressure is greater than 180. Midodrine HCl 10 MG Oral Tablet (Proamatine) take 1 tablet by mouth three times daily with meals Bacitracin Zinc 500 UNIT/GM External Ointment Apply topically to affected area 2 times a day. Applyto neck and leg incisions 3 times daily. Calcium Carbonate Antacid 750 MG Oral Tablet Chewable (Tums E-X) Administer 2 Tablets into G tube at noon and 2 Tablets in the evening. Patient not taking: Reported on 09/08/2024 Chlorhexidine Gluconate 0.12 % Mouth/Throat Solution (Periogard) Apply 15 mL to inside of cheek in the morning and 15 mL in the evening. Patient not taking: Reported on 07/26/2024 Folic Acid 1 MG Oral Tablet Administer 1 Tablet into G tube in the morning. Levothyroxine Sodium 88 MCG Oral Tablet (Levoxyl) Administer 1 Tablet into G tube daily first thingin the morning. (at least 30 min prior to breakfast or other meds) Ondansetron HCl 4 MG/5ML Oral Solution (Zofran) Take 5 mL by mouth every 8 hours as needed for Nausea or Vomiting. Patient not taking: Reported on 07/26/2024 oxyCODONE HCl 5 MG/5ML Oral Solution (Roxicodone) Administer 5 mL into G tube every 8 hours as needed for severe pain for up to 5 days. Vitamin B-12 1000 MCG Oral Tablet (Cyanocobalamin) Administer 1 Tablet into G tube in the morning. Patient not taking: Reported on 09/04/2024 Water For Irrigation, Sterile (WATER FLUSH) TF Administer 250 mL into G tube 5 times a day. Misc. Devices Cool mist humidification device Misc. Devices Portable suction device Misc. Devices 14 Fr flexible suction catheters Citalopram Hydrobromide 20 MG Oral Tablet (CeleXA) Take 1 Tablet by mouth in the morning. Azithromycin 200 MG/5ML Oral Suspension Reconstituted (Zithromax) take 2 and 1/2 teaspoonful (12.5ml) by mouth on day 1 then 1 and 1/4 teaspoonful (6.25ml) on days 2-5 Patient not taking: Reported on 09/08/2024 Stiolto Respimat 2.5-2.5 MCG/ACT Inhalation Aerosol Solution (Tiotropium- Olodaterol) Inhale 2 Puffsby mouth in the morning. Sennosides-Docusate Sodium 8.6-50 MG Oral Tablet (Senokot-S) 1 tab Via Peg Tube daily in the morning As Needed for constipation Atorvastatin Calcium 40 MG Oral Tablet (Lipitor) Take 1 Tablet by mouth in the morning. Albuterol Sulfate 1.25 MG/3ML Inhalation Nebulization Solution Inhale 1 vial via nebulizer every 4 hours as needed for Shortness of Breath or Wheezing. [employer] Ultra In Vitro Strip (Glucose Blood) USE DIRECTED FOUR TIMES A DAY NEEDED FOR HYPERGLYCEMIA (HIGH SUGAR). DX:E11.9 Aspirin EC 81 MG Oral Tablet Delayed Release Take 1 Tab by mouth daily. Patient not taking: Reported on 09/08/2024 Glucose 40 % Oral Gel (Glutose 15) Acetaminophen 500 MG Oral Capsule Administer 2 Capsules into G tube every 6 hours as needed for Pain, Moderate. Review of patient's allergies indicates: Allergen Reactions Sulfamethoxazole Itching Trimethoprim Itching Bactrim [Sulfamethoxazole-Trimethoprim] Hives Lisinopril Raises bp Nitrates, Organic Unconsciousness Terazosin priaprism Levaquin [Levofloxacin] Rash Sertraline Other reaction(s): NOSE BLEEDS There were no vitals taken for this visit. Physical Exam: Mental Status Examination: alert and oriented. Airway Examination: normal oropharyngeal airway and neck mobility. Respiratory Examination: clear to auscultation. CV Examination: normal. Abdomen: negative This patient has undergone a preprocedural evaluation. A determination has been made to proceed with the planned procedure under [facility] procedural guidelines and the [facility] Non-Emergent, Elective Medical Services and Treatment Recommendations (published on 10-24-19). The community and hospital prevalence of COVID-19 has been discussed as well as this patient's specific risks associated with SARS-CoV-19 infection. Based upon the clinical acuity and patient-specific care considerations, this procedure is deemed a Tier II - Intermediate acuity treatment or service with either progression or the threat of progressive disease related to the delay in treatment. Not providing the service has the potential for increasing morbidity or mortality. After reviewing the risks and benefits, the patient is deemed in satisfactory condition to undergo the procedure. The anesthesia plan is to use monitored anesthesia care (MAC). Sera Iglesias MD 09/12/2024 documented in this encounter Procedure Notes * Patricia Leal PA-C - 09/12/2024 10:45 AM ESTAssociated Order(s): UPPER GI ENDOSCOPY [facility] Patient Name: Rodney Canseco Procedure Date: 09/12/2024 10:45 AM Date of : 1945 Admit Type: Outpatient Note Status: Finalized Date of : 1945 Admit Type: Outpatient Age: 79 Room: Endo - Room 4 Gender: Male Note Status: Finalized Procedure: Upper GI endoscopy Indications: Suspected stricture of the esophagus Providers: Sera Iglesias MD (Doctor), Naeem Mccrary MD (Fellow), Inna Trinidad RN Referring MD: ROMAN Morgan Medicines: Monitored Anesthesia Care Complications: No immediate complications. Procedure: Pre-Anesthesia Assessment: - Prior to the procedure, a History and Physical was performed, and patient medications and allergies were reviewed. The patient is competent. The risks and benefits of the procedure and the sedation options and risks were discussed with the patient. All questions were answered and informed consent was obtained. Patient identification and proposed procedure were verified by the physician, the nurse, the anesthesiologist, the head wood grinder and the automotive drivability technician in the pre-procedure area in the procedure room. Mental Status Examination: alert and oriented. Airway Examination: normal oropharyngeal airway and neck mobility. Respiratory Examination: clear to auscultation. CV Examination: normal. After reviewing the risks and benefits, the patient was deemed in satisfactory condition to undergo the procedure. The anesthesia plan was to use monitored anesthesia care (MAC). Immediately prior to administration of medications, the patient was re-assessed for adequacy to receive sedatives. The heart rate, respiratory rate, oxygen saturations, blood pressure, adequacy of pulmonary ventilation, and response to care were monitored throughout the procedure. The physical status of the patient was re-assessed after the procedure. - The supervising physician was present for the entire procedure from scope insertion until scope withdrawal. After obtaining informed consent, the endoscope was passed under direct vision. All instruments were visually inspected immediately before and after removal from the patient to ensure they are fully intact. Throughout the procedure, the patient's blood pressure, pulse, and oxygen saturations were monitored continuously. The GIF-H180 Endoscope ([id number]) was introduced through the mouth, and advanced to the second part of duodenum. The upper GI endoscopy was performed with difficulty due to post-surgical anatomy. The patient tolerated the procedure well. Findings & Specimens: The larynx was surgically absent. 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 The examined esophagus was normal. There is no endoscopic evidence of stricture in the entire esophagus. A gastric tube was found in the gastric body. The exam of the stomach was otherwise normal. The examined duodenum was normal. 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 - Normal esophagus. - A gastric tube was found in the stomach. - Normal examined duodenum. - No specimens collected. - All instruments are visually inspected immediately before and after removal from the patient to ensure they are fully intact. 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 Follow up with speech & swallow therapy. - Return to referring physician as previously scheduled. Sera Iglesias MD 09/12/2024 10:36:50 AM This report has been signed electronically. Naeem Mccrary MD Estimated Blood Loss: Estimated blood loss: none. documented in this encounter Nursing Notes * Carine Ling RN - 09/12/2024 11:31 AM EST Patient is discharged under the care of : spouse Report called to N/A Means of transportation: wheelchair Discharge instructions reviewed by: Nurse Special discharge instructions given for: N/A Bronchoscopy: N/A Patient verbalized understanding of discharge instructions: YES * Carine Ling RN - 09/12/2024 11:30 AM EST Seen by anesthesia, may be discharged. * Carine Ling RN - 09/12/2024 11:29 AM EST Patient out of bed to chair with assist. * Carine Ling RN - 09/12/2024 11:25 AM EST Per verbal order, the physician and/or designant examined the patient, prescribed and verified the charted medications and certify that he is recovered for safe discharge from Endoscopy. * Carine Ling RN - 09/12/2024 11:[address] Iglesias at bedside to discuss procedure. Spouse at bedside. * Carine Ling RN - 09/12/2024 11:14 AM EST Patient sitting up in stretcher. Patient offered drink, and is tolerating P.O. fluids well. * Inna Trinidad RN - 09/12/2024 10:04 AM EST Procedure being completed under general anesthesia. Please see anesthesia record for medications and vital signs. documented in this encounter Plan of Treatment Upcoming Encounters Date Type Department Care Team (Late st Contact Info) Description 09/13/2024 11:00 AM EST Rehab Services Voice Lab [facility] [address] [place] [address] Blane Lares, [facility] ANALYST [address] [place] [address] 10/18/2024 11:00 AM EDT Office Visit Audiology, [place] [address] [place] [address] Ariadne Ivey Au.D. [address] [place] [address] 10/18/2024 1:30 PM EDT Office Visit Otolaryngology/Head & Neck/Facial Plastic Surgery [address] [place] [address] Ollie Borja MD [address] [place] [address] 10/31/2024 2:30 PM EDT Rehab Services Voice Lab, [place] [address] [place] [address] Sofie Elizabeth, [facility]ST [address] [place] [address] 01/02/2025 1:00 PM EDT Office Visit Otolaryngology/Head & Neck/Facial Plastic Surgery [address] [place] [address] Jenn Gentile MD [address] [place] [address] 09/10/2025 2:20 PM EST Office Visit Nephrology [facility] [address] [facility] [address] Jayden Vasques MD [address] [facility] [address] Scheduled Orders Name Type Priority Associated Diagnoses Orde r Schedule GLUCOSE METER, POINT OF CARE (COMMUNICATION ORDER) Point of Care Testing Routine As Needed until discontinued starting 09/12/2024 Scheduled Procedures Name Priority Associated Diagnoses Date/Ti me COLONOSCOPY FLEXIBLE PROXIMAL DIAGNOSTIC Recall History of colon polyps Health Maintenance Due Date Last Done Comments Alpha-1 Antitrypsin 1963 Adult Wellness Visit 08/28/2015 08/28/2014 *ADVANCE DIRECTIVE NOT ON FILE 05/06/2019 COVID-19 Vaccine ( season) 2024 02/18/2022, 10/11/2020, 09/13/2020 TSH 07/30/2024 07/30/2023, 02/16, 03/15/2021, Additional history exists Depression Monitoring 02/17/2025 02/18/2024 O2 ASSESSMENT COMPLETED IN PAST YEAR FOR COPD 09/12/2025 09/12/2024 Colonoscopy 08/08/2026 08/08/2021, 03/19, 11/13/2014, Additional history exists DTap/Tdap Vaccines (3 - Td or Tdap) 04/20/2034 04/20/2024, 10/02/2011, 07/26/2003, Additional history exists Zoster Vaccines Discontinued 04/19/2012 Hepatitis C Screening Completed 08/02/2013 RETIRED - COLONOSCOPY-EVERY 5 YRS AGES 18-100 Discontinued 08/08/2021, 04/04/2019, 11/13/2014, Additional history exists Albumin/Creatinine Ratio Discontinued 09/21/2023, 01/17 Pneumococcal Vaccine: 50+ Years Completed 04/10/2024, 02/24/2016, 10/26/2014, Additional history exists Influenza Vaccine (FLU shot) Completed 04/20/2024, 04/06/2023, 05/01/2022, Additional history exists HPV (Gardasil) Vaccine Aged Out No lo nger eligible based on patient's age to complete this topic Hepatitis B Vaccine Aged Out No longe r eligible based on patient's age to complete this topic MENINGOCOCCAL (MENACTRA/MENVEO) Aged Out No longer eligible based on patient's age to complete this topic Meningitis B Vaccine (Bexsero/Trumemba) Aged Out No longer eligible based on patient's age to complete this topic documented as of this encounter Medical Devices Implanted Type Area Lead Engineer Device Identifier Shelf Expiration Date Model / Serial / Lot [id number] - [id number] Implanted:Qty : 1 on 09/26/2007 at [place] [facility] [place] Tissue - Human Right: Neck LIFE CELL MARIANO 10/17/2008 [id number] / / [id number] Description:alloderm 3x7cm Elect Nucleus Slim Str [id number] - [id number] Implanted:Qty : 1 on 12/21/2022 by Ollie Borja MD at [place] [facility] [place] Left: Ear [employer] 11/04/2024 [id number] / / [id number] Electric Wirer Ves Gold 3.0 [id number] - [id number] Implanted:Qty : 1 on 07/10/2024 by Jenn Gentile MD [place] [facility] [place] N/A: Neck [employer] 09/01/2028 [id number] / / [id number] Set Puncture Provox Castillo [id number] - [id number] Implanted:Qty : 1 on 07/10/2024 by Jenn Gentile MD at [facility] N/A: Neck [facility] [id number] 09/15/2026 [id number] / / [id number] documented as of this encounter Procedures Procedure Name Priority Date/Time Associated Diagnosis Comments UPPER GI ENDOSCOPY 09/12/2024 10 :45 AM EST GLUCOSE METER, POINT OF CARE FRANCIS 09/12/2024 9:15 AM EST documented in this encounter Results * UPPER GI ENDOSCOPY (09/12/2024 10:45 AM EST) 09/12/2024 10:4 5 AM EST Narrative Procedure Note Patricia Leal PA-C - 09/12/2024 10:45 AM EST [facility] Patient Name: Rodney Canseco Procedure Date: 09/12/2024 10:45 AM Date of : 1945 Admit Type: Outpatient Note Status:Finalized Date of : 1945 Admit Type: Outpatient Age: 79 Room: Endo - Room 4 Gender: Male Note Status: Finalized Procedure: Upper GI endoscopy Indications: Suspected stricture of the esophagus Providers: Sera Iglesias MD (Doctor), Naeem Mccrary MD(Fellow), Inna Trinidad RN Referring MD: ROMAN Morgan Medicines: Monitored Anesthesia Care Complications: No immediate complications. Procedure: Pre-Anesthesia Assessment: - Prior to the procedure, a History and Physicalwas performed, and patient medications and allergies were reviewed. Thepatient is competent. The risks and benefits of the procedure and the sedation optionsand risks were discussed with the patient. All questions were answered and informedconsent was obtained. Patient identification and proposed procedure were verifiedby the physician, the nurse, the anesthesiologist, the head wood grinder and thetechnician in the pre-procedure area in the procedure room. Mental Status Examination: alertand oriented. Airway Examination: normal oropharyngeal airway and neck mobility.Respiratory Examination: clear to auscultation. CV Examination: normal. Afterreviewing the risks and benefits, the patient was deemed in satisfactory condition toundergo the procedure. The anesthesia plan was to use monitored anesthesia care (MAC).Immediately prior to administration of medications, the patient was re-assessed foradequacy to receive sedatives. The heart rate, respiratory rate, oxygen saturations,blood pressure, adequacy of pulmonary ventilation, and response to care weremonitored throughout the procedure. The physical status of the patient was re-assessedafter the procedure. - The supervising physician was present for theentire procedure from scope insertion until scope withdrawal. After obtaining informed consent, the endoscope waspassed under direct vision. All instruments were visually inspected immediatelybefore and after removal from the patient to ensure they are fully intact. Throughout the procedure, the patient's bloodpressure, pulse, and oxygen saturations were monitored continuously. The [id number] Endoscope([id number]) was introduced through the mouth, and advanced to the second part ofduodenum. The upper GI endoscopy was performed with difficulty due to post-surgicalanatomy. The patient tolerated the procedure well. Findings & Specimens: The larynx was surgically absent. 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 The examined esophagus was normal. There is no endoscopic evidence of stricture in the entireesophagus. A gastric tube was found in the gastric body. The exam of the stomach was otherwise normal. The examined duodenum was normal. Impression: - There are radiation changes in the posteriororopharynx. - Normal esophagus. - A gastric tube was found in the stomach. - Normal examined duodenum. - No specimens collected. - All instruments are visually inspectedimmediately before and after removal from the patient to ensure they are fully intact. Recommendation: - Suspect dysphagia to be 2/2 post-surgical andradiation changes in the oropharynx. Follow up with speech & swallow therapy. - Return to referring physician as previouslyscheduled. Sera Iglesias MD 09/12/2024 10:36:50 AM This report has been signed electronically. Naeem Mccrary MD Estimated Blood Loss: Estimated blood loss: none. October Cornel Leal PA-C GASTRO UPPER Final Result * GLUCOSE METER, POINT OF CARE (09/12/2024 9:15 AM EST) Glucose - POCT 87 70 - 120 mg/dL 09/12/2024 12:55 PM EST [facility] Blood Whole blood specimen / Unknown 09/12/2024 9:15 AM EST 09/12/2024 12:55 PM EST us Sera Iglesias MD LAB POINT OF CARE TEST DOCKED DEVICE UNSOLICITED RESULTS Final Result [facility] [address] [place] [address] documented in this encounter Administered Medications Inactive Administered Medications - up to 3 most recent administrations Medication Order MAR Action Action Date Dose Rate Site albuterol-ipratropium (Duoneb) inhalation solution 3 mL 3 mL, Nebulizer, RESPQID, First dose on Wed09/12/24 at 1200, Until Discontinued, 3 mL = 0.5 mg ipratropium/ 2.5 mg albuterol, Pre-Op Given 09/12/2024 9:18 AM EST 3 mL Isolyte-S pH 7.4 infusion Intravenous, at 75 mL/hr, for Outpatient patient Plasma-LYTE 148, isolyte-S, and isolyte-S pH 7.4 are considered equivalent - including for MAR barcode scanning., CONTINUOUS, Starting on Wed09/12/24 at 0930, Until Wed09/12/24 at 1639, Pre-Op Continue from Pre-Op 09/12/2024 10:11 AM EST 75 mL/hr New Bag 09/12/2024 10:10 AM EST New Bag 09/12/2024 9:28 AM EST 75 mL/hr 75 mL/hr oxygen GAS Inhalation, OXYGEN, First dose on Wed09/12/24 at 0930, Until Discontinued, Device/Managed by: Low Flow Device, Goal SPO2 (%): 91-95, Starting Device: Nasal Cannula, Initial Flow Rate (LPM): 2, Lowest Support: Nasal Cannula: Flow 0-6 LPM. Titrate up/down by 1 LPM., Higher Support: Non-Rebreather (NRB) Mask: Minimum of 10 LPM. Titrate to maintain bag inflation., Titration Interval: Q2 minutes and as needed., Notify Provider: For sudden DECREASE in resting SPO2 to less than 85% and when escalating delivery device., Wean patient off Oxygen when the oxygen saturation is greater than or equal to 93% documented in this encounter Active and Recently Administered Medications Times are shown in EST. Scheduled Medication Order 09/10/2024 09/11/2024 09/12/2024 albuterol-ipratropium (Duoneb) inhalation solution 3 mL 3 mL, Nebulizer, RESPQID, First dose on Wed09/12/24 at 1200, Until Discontinued, 3 mL = 0.5 mg ipratropium/ 2.5 mg albuterol, Pre-Op 0918 (Given - Provid er: Kimber Curran RN - Comment: given pre procedure) oxygen GAS Inhalation, OXYGEN, First dose on Wed09/12/24 at 0930, Until Discontinued, Device/Managed by: Low Flow Device, Goal SPO2 (%): 91-95, Starting Device: Nasal Cannula, Initial Flow Rate (LPM): 2, Lowest Support: Nasal Cannula: Flow 0-6 LPM. Titrate up/down by 1 LPM., Higher Support: Non-Rebreather (NRB) Mask: Minimum of 10 LPM. Titrate to maintain bag inflation., Titration Interval: Q2 minutes and as needed., Notify Provider: For sudden DECREASE in resting SPO2 to less than 85% and when escalating delivery device., Wean patient off Oxygen when the oxygen saturation is greater than or equal to 93% 0930 (Due) Continuous Medication Order 09/10/2024 09/11/2024 09/12/2024 Isolyte-S pH 7.4 infusion Intravenous, at 75 mL/hr, for Outpatient patient Plasma-LYTE 148, isolyte-S, and isolyte-S pH 7.4 are considered equivalent - including for MAR barcode scanning., CONTINUOUS, Starting on Wed09/12/24 at 0930, Until Wed09/12/24 at 1639, Pre-Op 0928 (New Bag - Prov ider: Kimber Curran RN)1009 (Paused - Provider: Naeem Medina CRNA - Comment: Switch to gravity)1010 (New Bag - Provider: Naeem Medina CRNA)1011 (Continue from Pre-Op - Provider: Naeem Medina CRNA)1027 (Anes Intra-Op Fluid - Provider: Naeem Medina CRNA)1639 (Due: Stopped) documented in this encounter Advance Directives * Full Code (Latest Code Status on File) Date Activated Date Inactivated Comments 07/10/2024 4:56 PM 07/18/2024 5:11 PM This order reflects the patients wishes and were consensually agreed upon. Question Answer Comments Discussion of Advance Directives occurred with: Patient Does the patient have a Living Will? No Does the patient have Health Care Power of Attor haydee? No * Full Code Date Activated Date Inactivated Comments 07/10/2024 6:14 AM 07/10/2024 4:56 PM This order reflects the patients wishes and were consensually agreed upon. Question Answer Comments Discussion of Advance Direct jorge occurred with: Not Discussed due to patient's condition * Full Code Date Activated Date Inactivated Comments 09/26/2007 1:43 PM 09/27/2007 5:30 PM * Full Code Date Activated Date Inactivated Comments 08/09/2007 1:38 PM 08/12/2007 5:16 PM Care Teams Frame Fixer Relationship Specialty Start Date End Date Patricia Leal PA-C [facility] [place] [address] PCP - General Physician Handbag Framer 07/26/24 documented as of this encounter
--- OUTSIDE RECORDS SUMMARY | 2024-09-13 19:51 | External Medical Summary ---
Author Name Unknown Address Unknown Organization : Laboratory Report Ordering Provider Test Date Status ASHLEE ALCANTARA 09/12/2024 09:15:17 Final Observation Date Value Abnormality Reference (Units ) Status Glucose Point of Care 09/12/2024 09:15:17 87 70-120 (mg/dL) Final Performing Location
--- OUTSIDE RECORDS SUMMARY | 2024-09-13 19:51 | External Medical Summary | Summary of Care ---
Author Name Unknown Organization [facility] Address [address] [facility] [place] [address] Phone [phone] Care Team Providers Care Machine Sign Writer Name Role Phone MarinaPatricia ibanez Cornel REHMAN Primary Care Provider [phone] Reason for Visit * Reason Onset Date Comments Advice 09/13/2024 Encounter Details Date Type Department Care Team (Late st Contact Info) Description 09/13/2024 Telephone Nephrology, [place] T[facility] [address] [place] [address] Jayden Vasques MD [address] [place] [address] Advice Allergies Active Allergy Reactions Criticality Noted [...] Additional Information Patient not taking.Reported on 09/08/2024 [employer] Ultra In Vitro Strip (Glucose Blood)Indications: Hypoglycemia USE DIRECTED FOUR TIMES A DAY NEEDED FOR HYPERGLYCEMIA (HIGH SUGAR). DX:E11.9 100 Strip 5 10/29/19 23 Active Albuterol Sulfate 1.25 MG/3ML Inhalation Nebulization SolutionIndication s:Wheezing,Bronchi tis, complicated,COPD exacerbation (HCC),COPD, group C, by GOLD 2017 classification ([facility]) Inhale 1 vial via nebulizer every 4 hours as needed for Shortness of Breath or Wheezing. 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 90 Tablet 3 4 4:03 PM EST 10/18/19 24 Active Sennosides-Docusat e Sodium 8.6-50 MG Oral Tablet (Senokot-S) 1 tab Via Peg Tube daily in the morning As Needed for constipation 30 Tablet 02/28/20 24 Active Stiolto Respimat 2.5-2.5 MCG/ACT Inhalation Aerosol Solution (Tiotropium-Olodat ruben) Inhale 2 Puffs by mouth in the morning. 4 g 9 4 3:49 PM EDT 04/19/20 24 Active Azithromycin 200 MG/5ML Oral Suspension Reconstituted (Zithromax)Indicat ions:Acute maxillary sinusitis, recurrence not specified take 2 and 1/2 teaspoonful (12.5ml) by mouth on day 1 then 1 and 1/4 teaspoonful (6.25ml) on days 2-5 45 mL 4 3:25 PM EST 06/05/20 24 Active Additional Information Patient not taking.Reported on 09/08/2024 Citalopram Hydrobromide 20 MG Oral Tablet (CeleXA)Indication [...] 113.6 g 4 12:38 PM EST 07/18/20 24 Active Vitamin B-12 1000 MCG Oral Tablet (Cyanocobalamin) Administer 1 Tablet into G tube in the morning. 30 Tablet 3 4 12:38 PM EST 07/19/19 25 Active Additional Information Patient not taking.Reported [...] Active cloNIDine HCl 0.1 MG Oral Tablet (Catapres)Indicati ons:HTN, goal below 150/90 Take 1 Tablet by mouth in the morning, 1 Tablet at noon and 1 Tablet before bedtime when Blood Pressure is greater than 180. 90 Tablet 11 09/08/19 25 Active Additional Information Patient not taking.Reported on 09/12/2024 Tamsulosin HCl 0.4 MG Oral Capsule (Flomax) take 1 capsule by mouth daily 30 Capsule 09/12/19 Active Hospital, Clinic, or Other Facility Administered Medication Ordered Dose Route Frequency Start Date End Date Status Albuterol Sulfate (Proventil) (2.5 MG/3ML) 0.083% inhalation solution 2.5 mgIndications:Dyspnea, unspecified type 2.5 mg NEBULIZER PRN 02/27/2024 Active documented as of this encounter (statuses as of 09/13/2024) Active Problems Problem Noted Date Diagnosed Date Coronary artery disease invo lving sycuan coronary artery of sycuan heart without angina pectoris 10/25/2023 MRI contraindicated [...] 10/23/2008 02/16/2013 ACTIVE CASE MANAGEMENT-Yanet Landa Rn- [phone] 09/28/2007 02/16/2008 Malignant neoplasm soft tissue head [...] mRNA, LNP-s, No Pre serve, 2-Dose Series (Dónde) 02/18/2022,10/11/2020,09/13/2020 Pneumococcal Conjugate Vacc, 13 Valent (Prevnar) 10/26/2014 Pneumococcal Conjugate Vacci ne, 20-valent ([id number]) 04/10/2024 Pneumococcal Polysaccharide PPV23 (Pneumovax) 02/24/2016,04/19/2008 Rabies [...] 02/18/2024 Does the household have a re lar source of income? (Household - for ages [...] on file documented as of this encounter Functional Status * Are you deaf or do you have serious difficulty hearing? Answer Date of Assessment Author No 07/10/2024 4:47 PM Iglesia Cristina RN * Are you blind or do you have serious difficulty seeing, even when wearing glasses? Answer Date of Assessment Author No 07/10/2024 4:47 PM Iglesia Cristina RN * Do you have serious difficulty walking or climbing stairs? (5 years old or older) Answer Date of Assessment Author No 07/10/2024 4:47 PM Iglesia Cristina RN * Do you have difficulty dressing [...] Iglesia Cristina RN documented in this encounter Miscellaneous Notes * Telephone Encounter - Jayden Vasques MD - 09/13/2024 9:07 AM EST He needs to see urology FRANCIS not nephrology. * Telephone Encounter - Mandy Ravi OSA - 09/13/2024 7:30 AM EST Patient was in ER last evening. calling 09/13/24 7:31 AM. Patient had a back up of urine due toprocedure he had done yesterday. He has catheter in right now and will be needing it out before 3 days. ER advising patient to be seen by Nephrology as soon as possible. Please call at [phone]. I did attempt to transfer but don't believe office is open yet. documented in this encounter Plan of Treatment Upcoming Encounters Date Type Department Care Team (Late st Contact Info) Description 09/13/2024 11:00 AM EST Rehab Services Voice Lab [address] [place] [address] Blane Lares, CCC-SENIOR ONLINE MARKETING MANAGER [address] [place] [address] 10/18/2024 11:00 AM EDT Office Visit Audiology, [place] [address] [place] [address] Ariadne Ivey Au.D. [address] [place] [address] 10/18/2024 1:30 PM EDT Office Visit Otolaryngology/Head & Neck/Facial Plastic Surgery [address] [place] [address] Ollie Borja MD [address] [place] [address] 10/31/2024 2:30 PM EDT [facility] [address] [place] [address] Sofie Elizabeth, CCC-SENIOR ONLINE MARKETING MANAGER [address] [place] [address] 01/02/2025 1:00 PM EDT Office Visit Otolaryngology/Head & Neck/Facial Plastic Surgery [address] [place] [address] Jenn Gentile MD [address] [place] [address] 09/10/2025 2:20 PM EST Office Visit [facility] [address] [place] [address] Jayden Vasques MD [address] [place] [address] Scheduled Procedures Name Priority Associated Diagnoses Date/Ti me COLONOSCOPY FLEXIBLE PROXIMAL DIAGNOSTIC Recall History of colon polyps Health Maintenance Due Date Last Done Comments Alpha-1 Antitrypsin 1963 Adult Wellness Visit 08/28/2015 08/28/2014 *ADVANCE DIRECTIVE NOT ON FILE 05/06/2019 COVID-19 Vaccine ( season) 2024 02/18/2022, 10/11/2020, 09/13/2020 Depression Monitoring 02/17/2025 02/18/2024 O2 ASSESSMENT COMPLETED [...] this encounter Medical Devices Implanted Type Area Cuprous Chloride Operator Device Identifier Shelf Expiration Date Model / Serial / Lot [id number] - [id number] Implanted:Qty : 1 on 09/26/2007 at [place] [facility] [place] Tissue - Human Right: Neck LIFE [employer]LL MARIANO 10/17/2008 [id number] / / [id number] Description:alloderm 3x7cm Elect Nucleus Slim Str [id number] - [id number] Implanted:Qty : 1 on 12/21/2022 by Ollie Borja MD at [place] [facility] [place] Left: Ear [employer] 11/04/2024 [id number] / / [id number] Thermospray Operator Ves Gold 3.0 [id number] - [id number] Implanted:Qty : 1 on 07/10/2024 by Jenn Gentile MD at OR [facility] [place] N/A: Neck [employer] 09/01/2028 [id number] / / [id number] Set Puncture Provox Castillo [id number] - [id number] Implanted:Qty : 1 on 07/10/2024 by Jenn Gentile MD at OR [facility] [place] N/A: Neck [employer] [id number] 09/15/2026 [id number] / / [id number] documented as of this encounter Advance Directives [...] PM 08/12/2007 5:16 PM Care Teams Machine Sign Writer Relationship Specialty Start Date End Date Patricia Leal PA-C [address] [facility] [place] [address] PCP - General Physician Postal Inspector 07/26/24 documented as of this encounter
--- OUTSIDE RECORDS SUMMARY | 2024-09-13 19:52 | External Medical Summary | Summary of Care ---
Author Name Unknown Organization [facility] Address [address] [place] [address] Phone [phone] Care Team Providers Care Flight Inspector Name Role Phone MelPatricia Cornel REHMAN Primary Care Provider [phone] Reason for Visit * Reason Onset Date Comments Appointment 09/05/2024 Upper endoscopy Encounter Details Date Type Department Care Team (Late st Contact Info) Description 09/05/2024 Telephone Gastroenterology, [facility] [address] [facility] [place] [address] Specified, Zz No Resource [address] [place] [address] Appointment (Upper endoscopy /) Allergies Active Allergy Reactions Criticality Noted Date Comments Sulfamethoxazole-Trimethoprim Hives Medium 2016 Levofloxacin Rash Low 03/03/2017 Lisinopril 03/12/2021 Raises bp Nitrates, Organic 09/07/2000 Unconsciousness Sertraline Low 02/09/2019 Other reaction(s): NOSE BLEEDS Sulfamethoxazole Itching High 02/09/2019 Terazosin 12/08/2001 priaprism Trimethoprim Itching High 02/09/2019 documented as of this encounter (statuses as of 09/06/2024) Medications Acetaminophen 500 MG Oral Capsule Administer 2 Capsules into G tube every 6 hours as needed for Pain, Moderate. 03/10/20 21 Active Glucose 40 % Oral Gel (Glutose 15) 01/20/20 21 Active Aspirin EC 81 MG Oral Tablet Delayed Release Take 1 Tab by mouth daily. 90 Tab 3 04/24/20 21 Active Additional Information Patient not taking.Reported on 09/04/2024 Eventup Ultra In Vitro Strip (Glucose Blood)Indications: Hypoglycemia USE DIRECTED FOUR TIMES A DAY NEEDED FOR HYPERGLYCEMIA (HIGH SUGAR). DX:E11.9 100 Strip 5 10/29/19 23 Active Albuterol Sulfate 1.25 MG/3ML Inhalation Nebulization SolutionIndication s:Wheezing,Bronchi tis, complicated,COPD exacerbation (HCC),COPD, group C, by GOLD 2017 classification ([facility]) Inhale 1 vial via nebulizer every 4 hours as needed for Shortness of Breath or Wheezing. 360 mL 3 4 5:12 PM EST 07/27/19 24 Active Latanoprost 0.005 % Ophthalmic Solution (Xalatan) Instill 1 Drop into both eyes every evening. 10 mL 3 4 9:30 AM EST 08/19/19 24 Active Atorvastatin Calcium 40 MG Oral Tablet (Lipitor)Indicatio ns:Coronary artery disease involving [place] coronary artery of [place] heart without angina pectoris Take 1 Tablet by mouth in the morning. 90 Tablet 3 4 4:03 PM EST 10/18/19 24 Active cloNIDine HCl 0.1 MG Oral Tablet (Catapres)Indicati ons:HTN, goal below 150/90 Take 1 Tablet by mouth in the morning and 1 Tablet at noon and 1 Tablet before bedtime. Take when BP > 180. 90 Tablet 11 4 10:29 AM EDT 01/19/20 24 Active Sennosides-Docusat e Sodium 8.6-50 MG Oral Tablet (Senokot-S) 1 tab Via Peg Tube daily in the morning As Needed for constipation 30 Tablet 02/28/20 24 Active Additional Information Patient not taking.Reported on 07/26/2024 Stiolto Respimat 2.5-2.5 MCG/ACT Inhalation Aerosol Solution [...] Additional Information Patient not taking.Reported on 07/26/2024 Citalopram Hydrobromide 20 MG Oral Tablet (CeleXA)Indication [...] 4 12:38 PM EST 07/18/20 24 Active Bacitracin Zinc 500 UNIT/GM External Ointment Apply [...] meals 270 Tablet 3 08/07/19 25 Active Hospital, Clinic, or Other Facility Administered Medication Ordered Dose Route Frequency Start Date End Date Status Albuterol Sulfate (Proventil) (2.5 MG/3ML) 0.083% inhalation solution 2.5 mgIndications:Dyspnea, unspecified type 2.5 mg NEBULIZER PRN 02/27/2024 Active documented as of this encounter (statuses as of 09/06/2024) Active Problems Problem Noted Date Diagnosed Date Coronary artery disease invo lving [place] coronary artery of [place] heart without angina pectoris 10/25/2023 MRI contraindicated [...] as of this encounter (statuses as of 09/06/2024) Resolved Problems Problem Noted Date Diagnosed Date [...] 10/23/2008 02/16/2013 ACTIVE CASE MANAGEMENT-Yanet Landa Rn- [phone] 09/28/2007 02/16/2008 Malignant neoplasm soft tissue head [...] 12/15/2016 Overview (03/09/2007): right tonsil and neck Hypoglycemia 05/05/2004 02/08/2021 [...] as of this encounter (statuses as of 09/06/2024) Immunizations Name Administration Dates Next Due COVID-19 mRNA, LNP-s, No Pre serve, 2-Dose Series ([employer]) 02/18/2022,10/11/2020,09/13/2020 PPD 08/09/2002 Pneumococcal Conjugate Vacc, 13 Valent (Prevnar) 10/26/2014 Pneumococcal Conjugate Vacci ne, 20-valent ([id number]) 04/10/2024 Pneumococcal Polysaccharide PPV23 (Pneumovax) 02/24/2016,04/19/2008 Rabies Vaccine Diploid cell (Imovax) ,02/19/2017,02/12/2017,02/08,02/05/2017 Seasonal Influenza Vac., MDV , IM, 0.5 mL (Fluzone) 04/10/2014,05/15/2013,04/14/2012,05/28,05/23/2009,04/19/2008,04/25/2007 ,07/04/2002 Seasonal Influenza Virus Vac cine, Unspecified Formulation 05/01/2022 Seasonal Influenza, High Dos e, Trivalent, PF, IM (Fluzone HD) 04/20/2024,05/02/2019,05/19/2017 Seasonal Influenza, PF, 6 M & above, IM , (FluLaval or Fluzone) 05/04/2019,05/16/2018 Seasonal Influenza, Quadriva lent Hd (Fluzone Hd) 04/06/2023,05/01/2022,04/09/2021 Seasonal Influenza, Quadriva lent Hd, 65+ Yrs 05/08/2020 Seasonal Influenza, Quadriva lent, No Preserve, IM 04/09/2016,04/17/2015 TD - Tetanus/Diptheria (ADULT) 07/26/2003,1992 TDAP, Age [...] encounter Miscellaneous Notes * Telephone Encounter - Paige Reed OSA - 09/06/2024 4:19 PM EST Spoke to pt, [place] 11/20/24 at [facility]. Instructions sent to pt and is on cancellation list. Pt's asked to also check with [facility] if they have anything sooner. Please review. Thank you. * Telephone Encounter - Michelle Willett OSA - 09/06/2024 3:27 PM EST Pt needs to be done in an OR setting. Please contact pt to schedule Case is built and all the questions have been asked ELIAZAR Ramos 09/06/2024 3:27 PM * Telephone Encounter - Kat Ribera OSA - 09/05/2024 11:55 AM EST Images from the original note were not included. Order EGD, FLEXIBLE, DIAGNOSTIC [[id number]] (Order [id number]) Order Information Date and Time Department Ordering/Authorizing 09/04/2024 10:59 AM Otolaryngology Jenn Manzo MD Order Providers Authorizing Provider Encounter Provider ([id number]) Jenn Gentile MD ([id number]) Jenn Gentile MD Collection Information Priority and Order Details Priority Class Routine Site Quantity Ordering Quantity 1 Order Questions Question Answer Procedure Location: [place] Facility: ENDO [facility] Comments This order is for a procedure only. If you are referring the patient to Gastroenterology, please place the appropriate referral. 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] Status of Other Orders View Status of Other Orders Encounter View Encounter Reprint Requisition EGD, FLEXIBLE, DIAGNOSTIC (Order #[id number]) on 09/04/24 Tracking Links Cosign Tracking Order Transmittal Tracking documented in this encounter Plan of Treatment Upcoming Encounters Date Type Department Care Team (Latest Contact Info) Description 09/08/2024 1:40 PM EST Office Visit NephrologyKely [address] [place] [address] Jayden Vasques MD 200 [facility] [place] [address] 09/13/2024 11:00 AM EST Rehab Services Voice Lab [facility] [place] [address] Blane Lares [facility] [place] [address] 10/18/2024 11:00 AM EDT Office Visit Audiology, [facility] [address] [place] [address] Ariadne Ivey Au.D. [address], [place] [id number] 10/18/2024 1:30 PM EDT Office Visit Otolaryngology/H ead & Neck/Facial Plastic Surgery [address] [place] [address] Ollie Borja MD [address] [place] [address] 10/31/2024 2:30 PM EDT [facility] [address] [place] [address] Sofie Elizabeth, [facility] [address] [place] [address] 11/20/2024 1:53 PM EDT Hospital Encounter OR GL, Operating Room, [facility] - 4th Floor [address] [place] [phone] Taras Juarez, DO [address] [place] [address] 11/20/2024 1:53 PM EDT - 11/20/2024 2:26 PM EDT Surgery OR [facility], Operating Room, [facility] Floor [address] [place] [phone] Taras Juarez, DO [address] [place] [address] ESOPHAGOGASTRODUODENOSCOPY (EGD), FLEXIBLE, TRANSORAL, DIAGNOSTIC 01/02/2025 1:00 PM EDT Office Visit Otolaryngology/H ead & Neck/Facial Plastic Surgery [address] [place] [address] Jenn Gentile MD [address] [place] [address] Scheduled Procedures Name Priority Associated Diagnoses Date/Ti me ESOPHAGOGASTRODUODENOSCOPY ( EGD), FLEXIBLE, TRANSORAL, DIAGNOSTIC Esophageal stenosis S/P laryngectomy History of radiation to head and neck region History of malignant neoplasm of tonsil 11/20/2024 1:53 PM EDT COLONOSCOPY FLEXIBLE PROXIMA L DIAGNOSTIC Recall History of colon polyps Health Maintenance Due Date Last Done Comments Alpha-1 Antitrypsin 1963 Adult Wellness Visit 08/28/2015 08/28/2014 *ADVANCE DIRECTIVE NOT ON FILE 05/06/2019 COVID-19 Vaccine ( season) 2024 02/18/2022, 10/11/2020, 09/13/2020 Depression Monitoring 02/17/2025 02/18/2024 O2 ASSESSMENT COMPLETED IN PAST YEAR FOR COPD 07/10/2025 07/10/2024 GFR 07/17/2025 07/17/2024, 06/19, 07/15/2024, Additional history exists Colonoscopy 08/08/2026 08/08/2021, 03/19, 11/13/2014, Additional history exists Albumin/Creatinine Ratio 09/20/2026 09/21/2023, 01/17 DTap/Tdap Vaccines (3 - Td or Tdap) 04/20/2034 04/20/2024, 10/02/2011, 07/26/2003, Additional history exists Zoster Vaccines Discontinued 04/19/2012 Hepatitis C Screening Completed 08/02/2013 RETIRED - COLONOSCOPY-EVERY 5 YRS AGES 18-100 Discontinued 08/08/2021, 04/04/2019, 11/13/2014, Additional history exists Pneumococcal Vaccine: 50+ Years Completed 04/10/2024, 02/24/2016, [...] this encounter Medical Devices Implanted Type Area Electronics Commodity Manager Device Identifier Shelf Expiration Date Model / Serial / Lot [id number] - [id number] Implanted:Qty : 1 on 09/26/2007 at OR [facility] Tissue - Human Right: Neck LIFE CELL MARIANO 10/17/2008 [id number] / / [id number] Description:alloderm 3x7cm Elect Nucleus Slim Str [id number] - [id number] Implanted:Qty : 1 on 12/21/2022 by Ollie Borja MD at OR [facility] Left: Ear [employer] 11/04/2024 [id number] / / [id number] Hand Scraper Ves Gold 3.0 [id number] - [id number] Implanted:Qty : 1 on 07/10/2024 by Jenn Gentile MD at OR [facility] N/A: Neck SYNOVIS [employer] 09/01/2028 [id number] / / [id number] Set Puncture Provox Castillo [id number] - [id number] Implanted:Qty : 1 on 07/10/2024 by Jenn Gentile MD at OR [facility] N/A: Neck AT MEDICAL [id number] 09/15/2026 [id number] / / [id number] documented as of this encounter Advance Directives [...] 1:38 PM 08/12/2007 5:16 PM Care Teams Flight Inspector Relationship Specialty Start Date End Date Patricia Leal PA-C [address] [place] [address] [place] [address] PCP - General Physician Staff Psychiatrist 07/26/24 documented as of this encounter
--- OUTSIDE RECORDS SUMMARY | 2024-09-13 19:52 | External Medical Summary | Summary of Care ---
Author Name Unknown Organization [facility] Address [address] [place] [address] Phone [phone] Care Team Providers Care Test Lab Technician Name Role Phone MarinaPatricia ibanez Cornel REHMAN Primary Care Provider [phone] Reason for Visit * Reason Comments Medication Refill Encounter Details Date Type Department Care Team (Late st Contact Info) Description 09/07/2024 Refill [facility] [address] [place], [place] [phone] Shaylee Bello MD [address] [place] [address] Allergies Active Allergy Reactions Criticality Noted Date Comments Sulfamethoxazole-Trimethoprim Hives Medium 2016 Levofloxacin Rash Low 03/03/2017 Lisinopril 03/12/2021 Raises bp Nitrates, Organic 09/07/2000 Unconsciousness Sertraline Low 02/09/2019 Other reaction(s): NOSE BLEEDS Sulfamethoxazole Itching High 02/09/2019 Terazosin 12/08/2001 priaprism Trimethoprim Itching High 02/09/2019 documented as of this encounter (statuses as of 09/12/2024) Medications Acetaminophen 500 MG Oral Capsule Administer 2 Capsules into G tube every 6 hours as needed for Pain, Moderate. 03/10/20 21 Active Glucose 40 % Oral Gel (Glutose 15) 01/20/20 21 Active Aspirin EC 81 MG Oral Tablet Delayed Release Take 1 Tab by mouth daily. 90 Tab 3 04/24/20 21 Active Additional Information Patient not taking.Reported on 09/08/2024 [employer] Ultra In Vitro Strip (Glucose Blood)Indications :Hypoglycemia USE DIRECTED FOUR TIMES A DAY NEEDED FOR HYPERGLYCEMIA (HIGH SUGAR). DX:E11.9 100 Strip 5 10/29/19 23 Active Albuterol Sulfate 1.25 MG/3ML Inhalation Nebulization SolutionIndicatio ns:Wheezing,Bronc hitis, complicated,COPD exacerbation (HCC),COPD, group C, by GOLD 2017 classification ([facility]) Inhale 1 vial via nebulizer every 4 hours as needed for Shortness of Breath or Wheezing. 360 mL 3 4 5:12 PM EST 07/27/19 24 Active Atorvastatin Calcium 40 MG Oral Tablet (Lipitor)Indicati ons:Coronary artery disease involving [place] coronary artery of [place] heart without angina pectoris Take 1 Tablet [...] both eyes every evening. 10 mL 3 09/11/19 25 Active Latanoprost 0.005 % Ophthalmic Solution (Xalatan) Instill 1 Drop into both eyes every evening. 10 mL 3 4 9:30 AM EST 08/19/19 24 025 Disconti nued(Ref ill) Hospital, Clinic, or Other Facility Administered Medication Ordered Dose Route Frequency Start Date End Date Status Albuterol Sulfate (Proventil) (2.5 MG/3ML) 0.083% inhalation solution 2.5 mgIndications:Dyspnea, unspecified type 2.5 mg NEBULIZER PRN 02/27/2024 Active documented as of this encounter (statuses as of 09/12/2024) Active Problems Problem Noted Date Diagnosed Date Coronary artery disease invo lving [place] coronary artery of [place] heart without angina pectoris 10/25/2023 MRI contraindicated [...] as of this encounter (statuses as of 09/12/2024) Resolved Problems Problem Noted Date Diagnosed Date [...] 10/23/2008 02/16/2013 ACTIVE CASE MANAGEMENT-Yanet Landa Rn- [phone] 09/28/2007 02/16/2008 Malignant neoplasm soft tissue head [...] as of this encounter (statuses as of 09/12/2024) Immunizations Name Administration Dates Next Due COVID-19 mRNA, LNP-s, No Pre serve, 2-Dose Series (Anadys) 02/18/2022,10/11/2020,09/13/2020 Pneumococcal Conjugate Vacc, 13 Valent (Prevnar) 10/26/2014 Pneumococcal Conjugate Vacci ne, 20-valent ([id number]) 04/10/2024 Pneumococcal Polysaccharide PPV23 (Pneumovax) 02/24/2016,04/19/2008 Rabies [...] No 02/18/2024 Does the household have a unm psychiatric centerlar source of income? (Household - for ages [...] encounter Miscellaneous Notes * Telephone Encounter - Madison Montgomery MD - 09/11/2024 5:03 PM ESTSigned Prescriptions: Disp Refills Latanoprost 0.005 % Ophthalmic Solution (X*10 mL 3 Sig: Instill 1 Drop into both eyes every evening. Authorizing Provider: SHAYLEE BELLO Ordering User: MADISON MONTGOMERY * Telephone Encounter - Madison Montgomery MD - 09/11/2024 5:03 PM ESTSigned Prescriptions: Disp Refills Latanoprost 0.005 % Ophthalmic Solution (X*10 mL 3 Sig: Instill 1 Drop into both eyes every evening. Authorizing Provider: SHAYLEE BELLO Ordering User: MADISON MONTGOMERY * Telephone Encounter - Lexii Cherry, ELIAZAR - 09/11/2024 9:40 AM ESTPending Prescriptions: Disp Refills Latanoprost 0.005 % Ophthalmic Solution (X*10 mL 3 Sig: Instill 1 Drop into both eyes every evening. * Telephone Encounter - Nicole Lyn CPhT - 09/08/2024 4:03 PM EST Did you pend patient's preferred pharmacy and medication before forwarding?yes Pharmacy: [facility] Pending Prescriptions: Disp Refills Latanoprost 0.005 % Ophthalmic Solution (*10 mL 3 Sig: Instill 1 Drop into both eyes every evening. Last Visit: 08/19/2023 (in office), Visit date not found (telemedicine) Next Visit: Visit date not found If no future appointments scheduled, and last appointment is greater than a year ago, please schedule patient for a follow-up appointment Last date the medication was ordered: 08/19/23 Is this request for a controlled substance?No Urine Drug Screen:No results found. However, due to the size of the patient record, not all encounters were searched. Please check Results Review for a complete set of results. Patient Phone Numbers Labs: Lab Results Component Value Date/Time CREAT 0.8 07/17/2024 06:29 AM CREAT 0.79 03/10/2021 12:00 AM CREAT 1.0 04/17/2020 11:31 AM POTASSIUM 3.5 07/17/2024 06:29 AM POTASSIUM 4.2 03/10/2021 12:00 AM POTASSIUM 4.1 01/16/2020 09:56 AM TSH 1.49 07/30/2023 10:57 AM TSH 1.870 03/06/2021 12:00 AM TSH 0.50 01/16/2020 09:56 AM LDL 29 07/30/2023 10:57 AM LDL 76 08/14/2019 04:29 PM LDL 63 02/10/2016 09:09 AM ALT 17 09/02/2023 12:00 PM ALT 24 01/16/2020 09:56 AM HGBA1C 5.3 03/17/2024 10:46 AM HGBA1C 5.1 08/23/2018 09:04 AM documented in this encounter Plan of Treatment Upcoming Encounters Date Type Department Care Team (Late st Contact Info) Description 09/13/2024 11:00 AM EST Rehab Services Voice Lab [facility] [address] [place] [address] Blane Lares CCC-FORENSIC EXAMINER [address] [place] [address] 10/18/2024 11:00 AM EDT Office Visit Audiology, [place] [address] [place] [address] Ariadne Ivey Au.D. [address] [place] [address] 10/18/2024 1:30 PM EDT Office Visit Otolaryngology/Head & Neck/Facial Plastic Surgery [address] [place] [address] Ollie Borja MD [address] [place] [address] 10/31/2024 2:30 PM EDT [facility] [address] [place] [address] Sofie Elizabeth, CCC-FORENSIC EXAMINER [address] [place] [address] 01/02/2025 1:00 PM EDT Office Visit Otolaryngology/Head & Neck/Facial Plastic Surgery [address] [place] [address] Jenn Gentile MD [address] [place] [address] 09/10/2025 2:20 PM EST Office Visit Nephrology, Kely Hawthorne 200 [facility] [place] [address] Jayden Vasques MD [address] [facility] [place] [address] Scheduled Procedures Name Priority Associated Diagnoses Date/Ti me ESOPHAGOGASTRODUODENOSCOPY ( EGD), FLEXIBLE, TRANSORAL, DIAGNOSTIC Esophageal stenosis S/P laryngectomy History of radiation to head and neck region History of malignant neoplasm of tonsil 09/12/2024 10:45 AM EST COLONOSCOPY FLEXIBLE PROXIMA L DIAGNOSTIC Recall History of colon polyps Health Maintenance Due Date Last Done Comments Alpha-1 Antitrypsin 1963 Adult Wellness Visit 08/28/2015 08/28/2014 *ADVANCE DIRECTIVE NOT ON FILE 05/06/2019 COVID-19 Vaccine ( season) 2024 02/18/2022, 10/11/2020, 09/13/2020 Depression Monitoring 02/17/2025 02/18/2024 O2 ASSESSMENT COMPLETED IN PAST YEAR FOR COPD 07/10/2025 07/10/2024 Colonoscopy 08/08/2026 08/08/2021, 03/19, 11/13/2014, Additional history [...] this encounter Medical Devices Implanted Type Area Concrete Paving Supervisor Device Identifier Shelf Expiration Date Model / Serial / Lot [id number] - [id number] Implanted:Qty : 1 on 09/26/2007 at [place] [facility] Tissue - Human Right: Neck LIFE CELL MARIANO 10/17/2008 [id number] / / [id number] Description:alloderm 3x7cm Elect Nucleus Slim Str [id number] - [id number] Implanted:Qty : 1 on 12/21/2022 by Ollie Borja MD at OR [facility] Left: Ear [employer] 11/04/2024 [id number] / / [id number] Skin Peeling Machine Operator Ves Gold 3.0 [id number] - [id number] Implanted:Qty : 1 on 07/10/2024 by Jenn Gentile MD at [place] [facility] N/A: Neck [employer]IS [employer] 09/01/2028 [id number] / / [id number] Set Puncture Provox Castillo [id number] - [id number] Implanted:Qty : 1 on 07/10/2024 by Jenn Gentile MD at OR [facility] N/A: Neck [employer] [id number] 09/15/2026 [id number] / / [id number] documented as of this encounter Advance Directives [...] 1:38 PM 08/12/2007 5:16 PM Care Teams Test Lab Technician Relationship Specialty Start Date End Date Patricia Leal, ORI [address] [facility] [place] [address] PCP - General Physician Cloth Finishing Range Operator Chief 07/26/24 documented as of this encounter
--- OUTSIDE RECORDS SUMMARY | 2024-09-13 19:52 | External Medical Summary | Summary of Care ---
Author Name Unknown Organization [facility] Address [address] [place] [address] Phone [phone] Care Team Providers Care Forest Manager Name Role Phone MelPatricia Cornel REHMAN Primary Care Provider [phone] Reason for Visit * Reason Onset Date Comments Appointment 09/05/2024 Upper endoscopy Encounter Details Date Type Department Care Team (Late st Contact Info) Description 09/05/2024 Telephone Gastroenterology, [facility] 132 [facility] [place] [address] Specified, Zz No Resource [address] [place] [address] Appointment (Upper endoscopy /) Allergies [...] Additional Information Patient not taking.Reported on 09/04/2024 Homuork Ultra In Vitro Strip (Glucose Blood)Indications: Hypoglycemia [...] Oral Tablet (Lipitor)Indicatio ns: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 Take 1 Tablet [...] Diagnosed Date Coronary artery disease invo lving inupiat coronary artery of inupiat heart without angina pectoris 10/25/2023 MRI contraindicated [...] 10/23/2008 02/16/2013 ACTIVE CASE MANAGEMENT-Yanet Landa Rn- [phone] 09/28/2007 02/16/2008 Malignant neoplasm soft tissue head [...] mRNA, LNP-s, No Pre serve, 2-Dose Series (kenxus) 02/18/2022,10/11/2020,09/13/2020 PPD 08/09/2002 Pneumococcal Conjugate Vacc, 13 Valent (Prevnar) 10/26/2014 Pneumococcal Conjugate Vacci ne, 20-valent ([id number]) 04/10/2024 Pneumococcal Polysaccharide PPV23 (Pneumovax) 02/24/2016,04/19/2008 Rabies [...] EST Spoke to pt, fl[place] 11/20/24 at [facility]. Instructions sent to pt and is on [...] were not included. Order EGD, FLEXIBLE, DIAGNOSTIC [[id number]] (Order [id number]) Order Information Date and Time Department Ordering/Authorizing 09/04/2024 10:59 AM Otolaryngology Jenn Manzo MD Order Providers Authorizing Provider Encounter Provider ([id number]) Jenn Gentile MD ([id number]) Jenn Gentile MD Collection Information Priority and Order Details Priority Class Routine Site Quantity Ordering Quantity 1 Order Questions Question Answer Procedure Location: [place] Facility: ENDO [facility] Comments This order is for a [...] Encounter Reprint Requisition EGD, FLEXIBLE, DIAGNOSTIC (Order #[id number]) on 09/04/24 Tracking Links Cosign Tracking Order Transmittal Tracking documented in this encounter Plan of Treatment Upcoming Encounters Date Type Department Care Team (Latest Contact Info) Description 09/08/2024 1:40 PM EST Office Visit NephrologyKely [address] [place] [address] Jayden Vasques MD 200 [facility] [place] [address] 09/13/2024 11:00 AM EST Rehab Services Voice [facility] [address] Blane Lares [facility] [address] [facility] [address] 10/18/2024 11:00 AM EDT Office Visit Audiology, [facility] [address] [place] [address] Ariadne Ivey Au.D. [address] [place], [place] [address] 10/18/2024 1:30 PM EDT Office Visit Otolaryngology/H ead & Neck/Facial Plastic Surgery [address] [place] [address] Ollie Borja MD [address] [place] [address] 10/31/2024 2:30 PM EDT [facility] [address] [place] [address] Sofie Elizabeth, [facility] [address] [place] [address] 11/20/2024 1:53 PM EDT Hospital Encounter OR GL, Operating Room, [facility] - 4th Floor [address] [place] [id number] Taras Juarez, DO [address] [place] [address] 11/20/2024 1:53 PM EDT - 11/20/2024 2:26 PM EDT Surgery OR [facility], Operating Room, [facility] - [facility] Floor [address] [place] [phone] Taras Juarez, DO [address] [place] [address] ESOPHAGOGASTRODUODENOSCOPY (EGD), FLEXIBLE, TRANSORAL, DIAGNOSTIC 01/02/2025 1:00 PM EDT Office Visit Otolaryngology/H ead & Neck/Facial Plastic Surgery [address] [place] [address] Jenn Gentile MD [address] [place] [address] Scheduled Procedures Name Priority Associated Diagnoses Date/Ti [...] this encounter Medical Devices Implanted Type Area Transfer And Line Up Worker Device Identifier Shelf Expiration Date Model / Serial / Lot [id number] - [id number] [place]planted:Q[place] : 1 [place] 09/26/2007 [place] [facility] [place] - Human Right: Neck LIFE CELL MARIANO 10/17/2008 [id number] / / [id number] Description:alloderm 3x7cm Elect Nucleus Slim Str [id number] - [id number] Implanted:Qty : 1 on 12/21/2022 by Ollie Broja MD [place] [facility] [place] Left: Ear COCHLEAR [employer] 11/04/2024 [id number] / / [id number] Project Facilitator Ves Gold 3.0 [id number] - [id number] Implanted:Qty : 1 on 07/10/2024 by Jenn Gentile MD [place] [facility] [place]/A: Neck SYNOVIS SURGICAL 09/01/2028 [id number] / / [id number] Set Puncture Provox Castillo [id number] - [id number] Implanted:Qty : 1 on 07/10/2024 by Jenn Gentile MD [place] [facility] [place]/A: Neck AT MEDICAL [id number] 09/15/2026 [id number] / / [id number] documented as of this encounter Advance Directives [...] 1:38 PM 08/12/2007 5:16 PM Care Teams Forest Manager Relationship Specialty Start Date End Date Patricia Leal PA-C [address] [place] [address] [place] [address] PCP - General Physician Gimp Buttonhole Machine Operator 07/26/24 documented as of this encounter
--- OUTSIDE RECORDS SUMMARY | 2024-09-13 19:52 | External Medical Summary | Summary of Care ---
Author Name Unknown Organization [facility] Address [address] [place] [address] Phone [phone] Care Team Providers Care Head Of Science Name Role Phone MelPatricia Cornel REHMAN Primary Care Provider [phone] Reason for Visit * Reason Onset Date Comments Appointment 09/05/2024 Upper endoscopy Encounter Details Date Type Department Care Team (Late st Contact Info) Description 09/05/2024 Telephone Gastroenterology, [facility] 132 [facility] [place] [address] Specified, Zz No Resource [address] [place] [address] Appointment (Upper endoscopy /) Allergies Active Allergy Reactions Criticality Noted Date Comments Sulfamethoxazole-Trimethoprim Hives Medium 2016 Levofloxacin Rash Low 03/03/2017 Lisinopril 03/12/2021 Raises bp Nitrates, Organic 09/07/2000 Unconsciousness Sertraline Low 02/09/2019 Other reaction(s): NOSE BLEEDS Sulfamethoxazole Itching High 02/09/2019 Terazosin 12/08/2001 priaprism Trimethoprim Itching High 02/09/2019 documented as of this encounter (statuses as of 09/07/2024) Medications Acetaminophen 500 MG Oral Capsule Administer 2 Capsules into G tube every 6 hours as needed for Pain, Moderate. 03/10/20 21 Active Glucose 40 % Oral Gel (Glutose 15) 01/20/20 21 Active Aspirin EC 81 MG Oral Tablet Delayed Release Take 1 Tab by mouth daily. 90 Tab 3 04/24/20 21 Active Additional Information Patient not taking.Reported on 09/04/2024 payever Ultra In Vitro Strip (Glucose Blood)Indications: Hypoglycemia USE DIRECTED FOUR TIMES A DAY NEEDED FOR HYPERGLYCEMIA (HIGH SUGAR). DX:E11.9 100 Strip 5 10/29/19 23 Active Albuterol Sulfate 1.25 MG/3ML Inhalation Nebulization SolutionIndication s:Wheezing,Bronchi tis, complicated,COPD exacerbation (HCC),COPD, group C, by GOLD 2017 classification ([facility]) Inhale 1 vial via nebulizer every 4 hours as needed for Shortness of Breath or Wheezing. 360 mL 3 4 5:12 PM EST 07/27/19 24 Active Latanoprost 0.005 % Ophthalmic Solution (Xalatan) Instill 1 Drop into both eyes every evening. 10 mL 3 4 9:30 AM EST 08/19/19 24 Active Atorvastatin Calcium 40 MG Oral Tablet (Lipitor)Indicatio ns:Coronary artery disease involving grindstone coronary artery of grindstone heart without angina pectoris Take 1 Tablet [...] as of this encounter (statuses as of 09/07/2024) Active Problems Problem Noted Date Diagnosed Date Coronary artery disease invo lving grindstone coronary artery of grindstone heart without angina pectoris 10/25/2023 MRI contraindicated [...] as of this encounter (statuses as of 09/07/2024) Resolved Problems Problem Noted Date Diagnosed Date [...] 10/23/2008 02/16/2013 ACTIVE CASE MANAGEMENT-Yanet Landa Rn- [phone] 09/28/2007 02/16/2008 Malignant neoplasm soft tissue head [...] as of this encounter (statuses as of 09/07/2024) Immunizations Name Administration Dates Next Due COVID-19 mRNA, LNP-s, No Pre serve, 2-Dose Series (OMEGA MORGAN) 02/18/2022,10/11/2020,09/13/2020 PPD 08/09/2002 Pneumococcal Conjugate Vacc, 13 Valent (Prevnar) 10/26/2014 Pneumococcal Conjugate Vacci ne, 20-valent ([id number]) 04/10/2024 Pneumococcal Polysaccharide PPV23 (Pneumovax) 02/24/2016,04/19/2008 Rabies [...] Assessment Author No 07/10/2024 4:47 PM Iglesia Critsina RN * Because of a physical, mental, or emotional condition, do you have difficulty doing errands alone such as visiting a doctors office or shopping? (15 years old or older) Answer Date of Assessment Author No 07/10/2024 4:47 PM Iglesia Crsitina RN documented as of this encounter Mental Status * Because of a physical, mental, or emotional condition, do you have serious difficulty concentrating, remembering, or making decisions? (5 years old or older) Answer Entry Date Author No 07/10/2024 4:47 PM Iglesia Cristina RN documented in this encounter Miscellaneous Notes * Telephone Encounter - Paige Reed OSA - 09/07/2024 10:13 AM EST Appt at [facility] cancelled. * Telephone Encounter - Kat Ribera OSA - 09/07/2024 9:14 AM EST Paige, I have patient scheduled for 2.25 please cancel your appointment. Thanks * Telephone Encounter - Paige Reed OSA - 09/06/2024 4:19 PM EST Spoke to pt, denisa'guera 11/20/[address] [facility]. Instructions sent to pt and is on [...] were not included. Order EGD, FLEXIBLE, DIAGNOSTIC [[id number]] (Order [id number]) Order Information Date and Time Department Ordering/Authorizing 09/04/2024 10:59 AM Otolaryngology Jenn Manzo MD Order Providers Authorizing Provider Encounter Provider ([id number]) Jenn Gentile MD ([id number]) Jenn Gentile MD Collection Information Priority and Order Details Priority Class Routine Site Quantity Ordering Quantity 1 Order Questions Question Answer Procedure Location: [place] Facility: [facility] Comments This order is for a procedure [...] Encounter Reprint Requisition EGD, FLEXIBLE, DIAGNOSTIC (Order #[id number]) on 09/04/24 Tracking Links Cosign Tracking Order Transmittal Tracking documented in this encounter Plan of Treatment Upcoming Encounters Date Type Department Care Team (Latest Contact Info) Description 09/08/2024 1:40 PM EST Office Visit NephrologyKely [address] [place] [address] Jayden Vasques MD [address] [place] [address] 09/12/2024 10:45 AM EST Hospital Encounter ENDO [facility], Endoscopy Suite, HFAM 1, [address] [place] [address] Sera Iglesias MD [address] [place] [address] 09/12/2024 10:45 AM EST - 09/12/2024 11:15 AM EST Surgery [facility], Endoscopy Suite, HFAM 1, [address] [place] [address] Sera Iglesias MD [address] [place] [address] ESOPHAGOGASTRODUODENOSCOPY (EGD), FLEXIBLE, TRANSORAL, DIAGNOSTIC 09/13/2024 11:00 AM EST Rehab Services Voice Lab [facility] [address] [place] [address] Blane Lares, CCC-MRI ASSISTANT [address] [place] [address] 10/18/2024 11:00 AM EDT [facility] [address] [place] [address] Ariadne Ivey Au.D. [address] [place] [address] 10/18/2024 1:30 PM EDT Office Visit Otolaryngology/ Head & Neck/Facial Plastic Surgery [address] [place] [address] Ollie Borja MD [address] [place] [address] 10/31/2024 2:30 PM EDT Rehab Services Voice [facility] [address] [place] [address] Sofie Elizabeth, CCC-MRI ASSISTANT [address] [place] [address] 01/02/2025 1:00 PM EDT Office Visit Otolaryngology/ Head & Neck/Facial Plastic Surgery [address] [facility] [place] [address] Jenn Gentile MD [address] [facility] [place] [address] Scheduled Procedures Name Priority Associated Diagnoses Date/Ti [...] encounter Medical Devices Implanted Type Area Manager Philosophy Device Identifier Shelf Expiration Date Model / Serial / Lot [id number] - [id number] Implanted:Qty : 1 on 09/26/2007 at [place] [facility] Tissue - Human Right: Neck LIFE CELL MARIANO 10/17/2008 [id number] / / [id number] Description:alloderm 3x7cm Elect Nucleus Slim Str [id number] - [id number] Implanted:Qty : 1 on 12/21/2022 by Ollie Borja MD at [place] [facility] Left: Ear [employer]CHLE[employer] 11/04/2024 [id number] / / [id number] River Rafting Guide Ves Gold 3.0 [id number] - [id number] Implanted:Qty : 1 on 07/10/2024 by Jenn Gentile MD at [place] [facility] N/A: Neck SYNOVIS SURGICAL 09/01/2028 [id number] / / [id number] Set Puncture Provox Castillo [id number] - [id number] Implanted:Qty : 1 on 07/10/2024 by Jenn Gentile MD at [place] [facility] N/A: Neck ATOS MEDICAL [id number] 09/15/2026 [id number] / / [id number] documented as of this encounter Advance Directives [...] 1:38 PM 08/12/2007 5:16 PM Care Teams Head Of Science Relationship Specialty Start Date End Date Patricia Leal PA-C [address] [place] [address] [place] [address] PCP - General Physician Coiled Tubing Operator 07/26/24 documented as of this encounter
--- OUTSIDE RECORDS SUMMARY | 2024-09-13 19:52 | External Medical Summary | Summary of Care ---
Author Name Unknown Organization [facility] Address [address] [place] [address] Phone [phone] Care Team Providers Care Shift Manager Name Role Phone MelPatricia Cornel REHMAN Primary Care Provider [phone] Reason for Visit * Reason Onset Date Comments Appointment 09/05/2024 Upper endoscopy Encounter Details Date Type Department Care Team (Late st Contact Info) Description 09/05/2024 Telephone Gastroenterology, [facility] 132 [facility] [place] [address] Specified, Zz No Resource [address] [place] [address] Appointment (Upper endoscopy /) Allergies [...] Additional Information Patient not taking.Reported on 09/04/2024 ShowMe VIdeoke Ultra In Vitro Strip (Glucose Blood)Indications: Hypoglycemia USE DIRECTED FOUR TIMES A DAY NEEDED FOR HYPERGLYCEMIA (HIGH SUGAR). DX:E11.9 100 Strip 5 10/29/19 23 Active Albuterol Sulfate 1.25 MG/3ML Inhalation Nebulization SolutionIndication s:Wheezing,Bronchi tis, complicated,COPD exacerbation (HCC),COPD, group C, by GOLD 2017 classification ([facility]) Inhale 1 vial via nebulizer every 4 hours as needed for Shortness of Breath or Wheezing. 360 mL 3 4 5:12 PM EST 07/27/19 24 Active Latanoprost 0.005 % Ophthalmic Solution (Xalatan) Instill 1 Drop into both eyes every evening. 10 mL 3 4 9:30 AM EST 08/19/19 24 Active Atorvastatin Calcium 40 MG Oral Tablet (Lipitor)Indicatio ns:Coronary artery disease involving grand ronde tribes coronary artery of grand ronde tribes heart without angina pectoris Take 1 Tablet [...] Diagnosed Date Coronary artery disease invo lving grand ronde tribes coronary artery of grand ronde tribes heart without angina pectoris 10/25/2023 MRI contraindicated [...] 10/23/2008 02/16/2013 ACTIVE CASE MANAGEMENT-Yanet Landa Rn- [phone] 09/28/2007 02/16/2008 Malignant neoplasm soft tissue head [...] mRNA, LNP-s, No Pre serve, 2-Dose Series (21viaNet) 02/18/2022,10/11/2020,09/13/2020 PPD 08/09/2002 Pneumococcal Conjugate Vacc, 13 Valent (Prevnar) 10/26/2014 Pneumococcal Conjugate Vacci ne, 20-valent ([id number]) 04/10/2024 Pneumococcal Polysaccharide PPV23 (Pneumovax) 02/24/2016,04/19/2008 Rabies [...] encounter Miscellaneous Notes * Telephone Encounter - Kat Ribera OSA - 09/07/2024 9:14 AM EST Paige I have patient scheduled for . please cancel your appointment. Thanks * Telephone Encounter - Paige Reed OSA - 09/06/2024 4:19 PM EST Spoke to pt, denisa'guera 11/20/[address] [facility]. Instructions sent to pt and is on cancellation list. Pt's asked to also check with [facility] if they have anything sooner. Please review. [...] were not included. Order EGD, FLEXIBLE, DIAGNOSTIC [[id number]] (Order [id number]) Order Information Date and Time Department Ordering/Authorizing 09/04/2024 10:59 AM Otolaryngology Jenn Manzo MD Order Providers Authorizing Provider Encounter Provider ([id number]) Jenn Gentile MD ([id number]) Jenn Gentile MD Collection Information Priority and Order Details Priority Class Routine Site Quantity Ordering Quantity 1 Order Questions Question Answer Procedure Location: [place] Facility: [facility] Comments This order is for a procedure [...] Encounter Reprint Requisition EGD, FLEXIBLE, DIAGNOSTIC (Order #[id number]) on 09/04/24 Tracking Links Cosign Tracking Order Transmittal Tracking documented in this encounter Plan of Treatment Upcoming Encounters Date Type Department Care Team (Latest Contact Info) Description 09/08/2024 1:40 PM EST Office Visit Nephrology, [place]ely [place] [address] [place] [address] Jayden Vasques MD [address] [place] [address] 09/12/2024 10:45 AM EST Hospital Encounter ENDO [facility], Endoscopy Suite, HFAM 1, [address] [place] [address] Sera Iglesias MD [address] [place], [place] [address] 09/12/2024 10:45 AM EST - 09/12/2024 11:15 AM EST Surgery ENDO [facility], Endoscopy Suite, HFAM 1, [address] [place] [address] Sera Iglesias MD [address] [place] [address] ESOPHAGOGASTRODUODENOSCOPY (EGD), FLEXIBLE, TRANSORAL, DIAGNOSTIC 09/13/2024 11:00 AM EST Rehab Services Voice Lab [facility] [address] [place] [address] Blane Lares, CCC-AUTO DAMAGE ESTIMATOR [address] [place] [address] 10/18/2024 11:00 AM EDT [facility] [address] [place] [address] Ariadne Ivey Au.D. [address] [place] [address] 10/18/2024 1:30 PM EDT Office Visit Otolaryngology/ Head & Neck/Facial Plastic Surgery [address] [place] [address] Ollie Borja MD [address] [place] [address] 10/31/2024 2:30 PM EDT [facility] [address] [place] [address] Sofie Elizabeth CCC-AUTO DAMAGE ESTIMATOR [address] [place] [address] 11/20/2024 1:53 PM EDT Hospital Encounter OR [facility], Operating Room, [facility] - 4th Floor [address] [place] [id number] Taras Juarez, [address] [place] [address] 11/20/2024 1:53 PM EDT - 11/20/2024 2:26 PM EDT Surgery OR [facility], Operating Room, [facility] - 4th Floor [address] [place] [address] Taras Juarez, DO [address] [place] [address] ESOPHAGOGASTRODUODENOSCOPY (EGD), FLEXIBLE, TRANSORAL, DIAGNOSTIC 01/02/2025 1:00 PM EDT Office Visit Otolaryngology/ Head & Neck/Facial Plastic Surgery [address] [place] [facility] [place] [address] Jenn Gentile MD [address] [place] [address] Scheduled Procedures Name Priority Associated Diagnoses Date/Ti me ESOPHAGOGASTRODUODENOSCOPY ( EGD), FLEXIBLE, TRANSORAL, DIAGNOSTIC Esophageal stenosis S/P laryngectomy History of radiation to head and neck region History of malignant neoplasm of tonsil 09/12/2024 10:45 AM EST ESOPHAGOGASTRODUODENOSCOPY ( EGD), FLEXIBLE, TRANSORAL, DIAGNOSTIC Esophageal [...] this encounter Medical Devices Implanted Type Area Bellows Tester Device Identifier Shelf Expiration Date Model / Serial / Lot [id number] - [id number] Implanted:Qty : 1 on 09/26/2007 at OR [facility] Tissue - Human Right: Neck LIFE CELL MARIANO 10/17/2008 [id number] / / [id number] Description:alloderm 3x7cm Elect Nucleus Slim Str [id number] - [id number] Implanted:Qty : 1 on 12/21/2022 by Ollie Borja MD at OR [facility] Left: Ear [employer]CH[employer] 11/04/2024 [id number] / / [id number] Mixing Engineer Ves Gold 3.0 [id number] - [id number] Implanted:Qty : 1 on 07/10/2024 by Jenn Gentile MD at OR [facility] N/A: Neck SYNOVIS SURGICAL 09/01/2028 [id number] / / [id number] Set Puncture Moy Castillo [id number] - [id number] Implanted:Qty : 1 on 07/10/2024 by Jenn Gentile MD at OR [facility] N/A: Neck ATOS MEDICAL [id number] 09/15/2026 [id number] / / [id number] documented as of this encounter Advance Directives [...] 1:38 PM 08/12/2007 5:16 PM Care Teams Shift Manager Relationship Specialty Start Date End Date Patricia Leal PA-C [address] [place] [address] PCP - General Physician [employer] 07/26/24 documented as of this encounter
--- OUTSIDE RECORDS SUMMARY | 2024-09-13 19:52 | External Medical Summary | Summary of Care ---
Author Name Unknown Organization [facility] Address [address] [place] [address] Phone [phone] Care Team Providers Care Freedom Of Information Officer Name Role Phone Mel Patricia Unger PA-C Primary Care Provider [phone] Encounter Details Date Type Department Care Team (Late st Contact Info) Description 08/31/2024 8:30 AM EST Scheduled Telephone Care Coordination and Integration [address] [place] [address] Inez Laureano, Community [facility] Agricultural Equipment Test Engineer [address], [place] [id number] Allergies Active Allergy Reactions Criticality Noted Date Comments Sulfamethoxazole-Trimethoprim Hives Medium 2016 Levofloxacin Rash Low 03/03/2017 Lisinopril 03/12/2021 Raises bp Nitrates, Organic 09/07/2000 Unconsciousness Sertraline Low 02/09/2019 Other reaction(s): NOSE BLEEDS Sulfamethoxazole Itching High 02/09/2019 Terazosin 12/08/2001 priaprism Trimethoprim Itching High 02/09/2019 documented as of this encounter (statuses as of 08/31/2024) Medications Acetaminophen 500 MG Oral Capsule Administer 2 Capsules into G tube every 6 hours as needed for Pain, Moderate. 03/10/20 21 Active Glucose 40 % Oral Gel (Glutose 15) 01/20/20 21 Active Aspirin EC 81 MG Oral Tablet Delayed Release Take 1 Tab by mouth daily. 90 Tab 3 04/24/20 21 Active OneXamarinuch Ultra In Vitro Strip (Glucose Blood)Indications: Hypoglycemia USE DIRECTED FOUR TIMES A DAY NEEDED FOR HYPERGLYCEMIA (HIGH SUGAR). DX:E11.9 100 Strip 5 10/29/19 23 Active Albuterol Sulfate 1.25 MG/3ML Inhalation Nebulization SolutionIndication s:Wheezing,Bronchi tis, complicated,COPD exacerbation (HCC),COPD, group C, by GOLD 2017 classification ([facility]) Inhale 1 vial via nebulizer every 4 hours as needed for Shortness of Breath or Wheezing. 360 mL 3 4 5:12 PM EST 07/27/19 24 Active Latanoprost 0.005 % Ophthalmic Solution (Xalatan) Instill 1 Drop into both eyes every evening. 10 mL 3 4 9:30 AM EST 08/19/19 24 Active Atorvastatin Calcium 40 MG Oral Tablet (Lipitor)Indicatio ns:Coronary artery disease involving [place] coronary artery of [place] heart without angina pectoris Take 1 Tablet [...] 4 12:38 PM EST 07/19/19 25 Active Water For Irrigation, Sterile (WATER FLUSH) TF [...] as of this encounter (statuses as of 08/31/2024) Active Problems Problem Noted Date Diagnosed Date Coronary artery disease invo lving [place] coronary artery of [place] heart without angina pectoris 10/25/2023 MRI contraindicated [...] as of this encounter (statuses as of 08/31/2024) Resolved Problems Problem Noted Date Diagnosed Date [...] 10/23/2008 02/16/2013 ACTIVE CASE MANAGEMENT-Yanet Landa Rn- [phone] 09/28/2007 02/16/2008 Malignant neoplasm soft tissue head [...] as of this encounter (statuses as of 08/31/2024) Immunizations Name Administration Dates Next Due COVID-19 mRNA, LNP-s, No Pre serve, 2-Dose Series (Intent HQ) 02/18/2022,10/11/2020,09/13/2020 Pneumococcal Conjugate Vacc, 13 Valent (Prevnar) 10/26/2014 Pneumococcal Conjugate Vacci ne, 20-valent ([id number]) 04/10/2024 Pneumococcal Polysaccharide PPV23 (Pneumovax) 02/24/2016,04/19/2008 Rabies [...] Iglesia Cristina RN documented in this encounter Progress Notes * Inez Laureano [facility] Agricultural Equipment Test Engineer - 08/31/2024 8:37 AM EST Telemedicine visit: No [facility] Agricultural Equipment Test Engineer (MANNY) documentation: CHW kim call per ALEIDA Salazar CM Spoke with , Letty She is on the way out the door to take grandchildren to school Unable to talk at this time No concerns Will call CM back later this afternoon Electronically signed by Inez Laureano [facility] Agricultural Equipment Test Engineer at 08/31/2024 8:39 AM EST documented in this encounter Plan of Treatment Upcoming Encounters Date Type Department Care Team (Late st Contact Info) Description 09/06/2024 10:30 AM EST Office Visit Otolaryngology/Head & Neck/Facial Plastic Surgery [address] [place] [facility] [place] [address] Jenn Gentile MD [address] [place] [address] 09/08/2024 1:40 PM EST Office Visit [facility]rology[facility] [address] [place] [address] Jayden Vasques MD [address] [place] [address] 09/13/2024 11:00 AM EST Rehab Services Voice Lab [facility] [address] [facility] [place] [address] Blane Lares, [facility] [address] [place] [address] 10/18/2024 11:00 AM EDT Office Visit Audiology, [place] [address] [place] [address] Ariadne Ivey Au.D. [address] [place] [address] 10/18/2024 1:30 PM EDT Office Visit Otolaryngology/Head & Neck/Facial Plastic Surgery [address] [place] [address] Ollie Borja MD [address] [place] [address] 10/31/2024 2:30 PM EDT Rehab Services Voice Lab, [place] [address] [place] [address] Sofie Elizabeth, CCC-SALT MANAGER [address] [place] [address] Scheduled Procedures Name Priority Associated Diagnoses Date/Ti [...] this encounter Medical Devices Implanted Type Area Comb Tender Device Identifier Shelf Expiration Date Model / Serial / Lot [id number] - [id number] Implanted:Qty : 1 on 09/26/2007 at OR [facility] [place] [place] Tissue - Human Right: Neck LIFE CELL MARIANO 10/17/2008 [id number] / / [id number] Description:alloderm 3x7cm Elect Nucleus Slim Str [id number] - [id number] Implanted:Qty : 1 on 12/21/2022 by Ollie Borja MD at OR [facility] [place] [place] Left: Ear [employer] 11/04/2024 [id number] / / [id number] Supervisor [employer] Ves Gold 3.0 [id number] - [id number] Implanted:Qty : 1 on 07/10/2024 by Jenn Gentile MD at OR [facility] [place] [place] N/A: Neck SYNOVIS SURGICAL 09/01/2028 [id number] / / [id number] Set Puncture Provox Castillo [id number] - [id number] Implanted:Qty : 1 on 07/10/2024 by Jenn Gentile MD at OR [facility] [place] [place] N/A: Neck AT MEDICAL [id number] 09/15/2026 [id number] / / [id number] documented as of this encounter Advance Directives [...] 1:38 PM 08/12/2007 5:16 PM Care Teams Freedom Of Information Officer Relationship Specialty Start Date End Date Patricia Leal PA-C [facility] [address] [place] [address] PCP - General Physician Agricultural Equipment Test Engineer 07/26/24 documented as of this encounter
--- OUTSIDE RECORDS SUMMARY | 2024-09-13 19:52 | External Medical Summary | Summary of Care ---
Author Name Unknown Organization [facility] Address [address] [facility] [place] [address] Phone [phone] Care Team Providers Care Copy Room Technician Name Role Phone Mel Patricia Unger PA-C Primary Care Provider [phone] Reason for Visit * Reason Comments Chronic Kidney Disease (CKD) Encounter Details Date Type Department Care Team (Late st Contact Info) Description 09/08/2024 1:40 PM EST Office Visit Nephrology, [place] [address] [facility] [place] [address] Jayden Vasques MD [address] [place] [address] Orthostatic hypotension*; HTN, goal below 150/90 Allergies Active Allergy Reactions Criticality Noted Date Comments Sulfamethoxazole-Trimethoprim Hives Medium 2016 Levofloxacin Rash Low 03/03/2017 Lisinopril 03/12/2021 Raises bp Nitrates, Organic 09/07/2000 Unconsciousness Sertraline Low 02/09/2019 Other reaction(s): NOSE BLEEDS Sulfamethoxazole Itching High 02/09/2019 Terazosin 12/08/2001 priaprism Trimethoprim Itching High 02/09/2019 documented as of this encounter (statuses as of 09/08/2024) Medications Acetaminophen 500 MG Oral Capsule Administer 2 Capsules into G tube every 6 hours as needed for Pain, Moderate. 03/10/20 21 Active Glucose 40 % Oral Gel (Glutose 15) 01/20/20 21 Active Aspirin EC 81 MG Oral Tablet Delayed Release Take 1 Tab by mouth daily. 90 Tab 3 04/24/20 21 Active Additional Information Patient not taking.Reported on 09/08/2024 [employer] Ultra In Vitro Strip (Glucose Blood)Indications :Hypoglycemia USE DIRECTED FOUR TIMES A DAY NEEDED FOR HYPERGLYCEMIA (HIGH SUGAR). DX:E11.9 100 Strip 5 10/29/19 23 Active Albuterol Sulfate 1.25 MG/3ML Inhalation Nebulization SolutionIndicatio ns:Wheezing,Bronc hitis, complicated,COPD exacerbation (HCC),COPD, group C, by GOLD 2017 classification ([facility]) Inhale 1 vial via [...] Oral Tablet (Lipitor)Indicati ons:Coronary artery disease involving [place] coronary artery of [place] heart without angina pectoris Take 1 Tablet [...] meals 270 Tablet 3 08/07/19 25 Active cloNIDine HCl 0.1 MG Oral Tablet (Catapres)Indicat ions:HTN, goal below 150/90 Take 1 Tablet by mouth in the morning, 1 Tablet at noon and 1 Tablet before bedtime when Blood Pressure is greater than 180. 90 Tablet 11 09/08/19 25 Active cloNIDine HCl 0.1 MG Oral Tablet (Catapres)Indicat ions:HTN, goal below 150/90 Take 1 Tablet by mouth in the morning and 1 Tablet at noon and 1 Tablet before bedtime. Take when BP > 180. 90 Tablet 11 4 10:29 AM EDT 01/19/20 24 025 Disconti nued(Ref ill) Hospital, Clinic, or Other Facility Administered Medication Ordered Dose Route Frequency Start Date End Date Status Albuterol Sulfate (Proventil) (2.5 MG/3ML) 0.083% inhalation solution 2.5 mgIndications:Dyspnea, unspecified type 2.5 mg NEBULIZER PRN 02/27/2024 Active documented as of this encounter (statuses as of 09/08/2024) Active Problems Problem Noted Date Diagnosed Date Coronary artery disease invo lving [place] coronary artery of [place] heart without angina pectoris 10/25/2023 MRI contraindicated [...] as of this encounter (statuses as of 09/08/2024) Resolved Problems Problem Noted Date Diagnosed Date [...] 10/23/2008 02/16/2013 ACTIVE CASE MANAGEMENT-Yanet Landa Rn- [phone] 09/28/2007 02/16/2008 Malignant neoplasm soft tissue head [...] as of this encounter (statuses as of 09/08/2024) Immunizations Name Administration Dates Next Due COVID-19 mRNA, LNP-s, No Pre serve, 2-Dose Series (Abazab) 02/18/2022,10/11/2020,09/13/2020 Pneumococcal Conjugate Vacc, 13 Valent (Prevnar) 10/26/2014 Pneumococcal Conjugate Vacci ne, 20-valent ([id number]) 04/10/2024 Pneumococcal Polysaccharide PPV23 (Pneumovax) 02/24/2016,04/19/2008 Rabies [...] No 02/18/2024 Does the household have a [facility] source of income? (Household - for ages [...] Sign Reading Time Taken Comments Blood Pressure 154/81 09/08/2024 1:28 PM EST Pulse 50 09/08/2024 1:28 PM EST Temperature 37 C (98.6 F) 09/08/2024 1:28 PM EST Respiratory Rate 18 09/08/2024 1:28 PM EST Oxygen Saturation 95% 09/08/2024 1:28 PM EST Inhaled Oxygen Concentration - - Weight 80.7 kg (178 lb) 09/08/2024 1:28 PM EST Height - - Body Mass Index 24.83 07/10/2024 4:00 PM EST documented in this [...] 4:47 PM EST Iglesia Chowdary RN * Because of a physical, mental, or emotional condition, do you have difficulty doing errands alone such as visiting a doctors office or shopping? (15 years old or older) Answer Date of Assessment Author No 07/10/2024 4:47 PM EST Iglesia Chowdary RN documented as of this encounter Mental Status * Because of a physical, mental, or emotional condition, do you have serious difficulty concentrating, remembering, or making decisions? (5 years old or older) Answer Entry Date Author No 07/10/2024 4:47 PM EST Iglesia Chowdary RN documented in this encounter Progress Notes * Jayden Vasques MD - 09/08/2024 1:54 PM EST C/c---Severe autonomic neuropathy with very labali hypertension/ severe orthostatic hypertension HPI: 79 year-old male who is here for evaluation of [...] had some extra salt. Since last visit ----3 bouts of aspiration pneumonia and then underwent surgery for his larynx June 2024. No pneumonia since then. ongoing issue with high blood pressure as well as low blood pressure. Patient is not having low blood pressure as much as before. Most of the blood pressure at home is usually in the 120s to 140s range and very rarely gets high blood pressure of more than 160 or less than 120 so would say overall his lot better than before. 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 COLONOSCOPY, DIAGNOSTIC (RECTUM) 11/27/2008 normal, repeat in 10 yrs COLONOSCOPY, DIAGNOSTIC (RECTUM) 11/14/2014 normal bx, poor prep, repeat 1 yr/inpt [facility] COLONOSCOPY, DIAGNOSTIC (RECTUM) 04/04/2019 adenomatous polyp, repeat 5 yrs/[facility] COLONOSCOPY, DIAGNOSTIC (RECTUM) 08/08/2021 adenomatous polyp, repeat 5 yrs / [facility] COLORECTAL CANCER SCREEN;W/FLE 02/20/1997 WNL to 50cm DENTAL SURGERY PROCEDURE NEC Dental Surgery Procedure EGD, FLEXIBLE, DIAGNOSTIC 04/08/2010 continue present meds EGD, FLEXIBLE, DIAGNOSTIC 05/29/2013 UPPER GI ENDOSCOPY DIAGNOSTIC performed by Antonio Trinidad MD [place] [facility] [place]GD, FLEXIBLE, DIAGNOSTIC 11/15/2014 PEG replacement, eso stricture, bx shows lymphocyte infiltrate /[facility] EGD, FLEXIBLE, DIAGNOSTIC 05/20/2016 PEG replacement/[facility] EGD, FLEXIBLE, DIAGNOSTIC 01/06/2018 PEG replaced/[facility] EGD, FLEXIBLE, DIAGNOSTIC 02/09/2019 esophageal stenosis, PEG replaced / [facility] EGD, FLEXIBLE, DIAGNOSTIC N/A 09/04/2021 intact gastrostomy with patent G tube present, dilated/successful completion of video capsule enteroscope/ESOPHAGOGASTRODUODENOSCOPY (EGD), FLEXIBLE, TRANSORAL, DIAGNOSTIC performed by Gabe Saha MD at OR [facility] EGD, FLEXIBLE, DIAGNOSTIC 08/08/2021 normal / [facility] EGD, FLEXIBLE, DIAGNOSTIC 05/16/2021 UES stenosis / [facility] EGD, FLEXIBLE, INSERT WIRE, PASS DILATOR 04/12/09 DONE PATH PENDING , DILATION DONE EGD, FLEXIBLE, W/BIOPSY 04/12/09 DONE mild stomach irritation INJECT/TREAT LUMBAR SPINE LESION spur removal IR BIOPSY 10/02/2019 KNEE ARTHROSCOPY, DIAGNOSTIC Knee Scope,Diagnostic OTHER 09/26/2007 right tonsil carcinoma with neck mets REMOVAL OF NECK LYMPH NODES 09/26/2007 CERVICAL LYMPHADENECTOMY MODIFIED RADICAL NECK DISSECTION performed by ASHELE FLORES at 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 But for now the advice is if the blood pressure is low less than 100 systolic give midodrine up to 3 times a day. If the blood pressure is more than 180 give clonidine. There is not much utility in sending him to emergency department for high blood pressure given his severe autonomic dysfunction and labile blood pressure issues. HTN, goal below 150/90 Difficult situation with both high blood pressure as well as low blood pressure. However situation has improved significantly compared to before. Jayden Vasques MD documented in this encounter Nursing Notes * La Bueno RN - 09/08/2024 1:29 PM EST Follow up visit today. Had elective laryngectomy in June due to repeated pneumonias. Doing well. states he insists on taking his midodrine dispite the fact that bps have been in 120s. Pt needs education. documented in this encounter Plan of Treatment Upcoming Encounters Date Type Department Care Team (Latest Contact Info) Description 09/12/2024 10:45 AM EST Hospital Encounter [place] [facility] [address], [facility] [address], [address] [place] [address] Sera Iglesias MD [address] [place] [address] 09/12/2024 10:45 AM EST - 09/12/2024 11:15 AM EST Surgery [place] [facility] Endoscopy Suite, [facility], [address] [place] [address] Sera Iglesias MD [address] [place] [address] ESOPHAGOGASTRODUODENOSCOPY (EGD), FLEXIBLE, TRANSORAL, DIAGNOSTIC 09/13/2024 11:00 AM EST Rehab Services Voice Lab [facility] [address] [place] [address] Blane Lares CCC-PRINT COLOR MATCHER [address] [place] [address] 10/18/2024 11:00 AM EDT [facility] [address] [place] [address] Ariadne Ivey Au.D. [address] [place] [address] 10/18/2024 1:30 PM EDT Office Visit Otolaryngology/ Head & Neck/Facial Plastic Surgery [address] [place] [address] Ollie Borja MD [address] [place] [address] 10/31/2024 2:30 PM EDT [facility] [address] [place] [address] Sofie Elizabeth CCC-PRINT COLOR MATCHER [address] [place] [address] 01/02/2025 1:00 PM EDT Office Visit Otolaryngology/ Head & Neck/Facial Plastic Surgery [address] [place] [address] Jenn Gentile MD [address] [place] [address] Scheduled Procedures Name Priority Associated Diagnoses Date/Ti [...] this encounter Medical Devices Implanted Type Area Business Analytics Intern Device Identifier Shelf Expiration Date Model / Serial / Lot [id number] - [id number] Implanted:Qty : 1 on 09/26/2007 [place] [facility] [place] Tissue - Human Right: Neck LIFE CELL MARIANO 10/17/2008 [id number] / / [id number] Description:alloderm 3x7cm Elect Nucleus Slim Str [id number] - [id number] Implanted:Qty : 1 on 12/21/2022 by Ollie Borja MD [place] [facility] Left: Ear [employer] 11/04/2024 [id number] / / [id number] Slabber Light Ves Gold 3.0 [id number] - [id number] Implanted:Qty : 1 on 07/10/2024 by Jenn Gentile MD [place] [facility] N/A: Neck SYN[employer]IS SURGICAL 09/01/2028 [id number] / / [id number] Set Puncture Provox Castillo [id number] - [id number] Implanted:Qty : 1 on 07/10/2024 by Jenn Gentile MD at [place] [facility] N/A: Neck [employer] [id number] 09/15/2026 [id number] / / [id number] documented as of this encounter Visit Diagnoses Diagnosis Orthostatic hypotension- Primary HTN, goal below 150/90 Esophageal stenosis Stricture and stenosis of esophagus S/P laryngectomy Other postprocedural status History of radiation to head and neck region History of malignant neoplasm of tonsil Personal history of malignant neoplasm of other and unspecified parts of oral cavity and pharynx documented in this encounter Advance Directives * [...] 1:38 PM 08/12/2007 5:16 PM Care Teams Copy Room Technician Relationship Specialty Start Date End Date Patricia Leal PA-C [address] [facility] [place] [address] PCP - General Physician Diamond Assorter 07/26/24 documented as of this encounter"
--- OUTSIDE RECORDS SUMMARY | 2024-09-13 19:52 | External Medical Summary | Summary of Care ---
Author Name Unknown Organization [facility] Address [address] [place] [address] Phone [phone] Care Team Providers Care Client Project Coordinator Name Role Phone Marinashamar Patricia Unger PA-C Primary Care Provider [phone] Reason for Visit * Reason Onset Date Comments Pre Procedure Assessment 09/07/2024 Encounter Details Date Type Department Care Team (Late st Contact Info) Description 09/07/2024 Telephone Gastroenterology, [place] [address] [place] [address] Sera Iglesias MD [address] [place] [address] Pre Procedure Assessment Allergies Active Allergy Reactions Criticality Noted Date [...] Additional Information Patient not taking.Reported on 09/04/2024 Misoca Ultra In Vitro Strip (Glucose Blood)Indications: Hypoglycemia USE DIRECTED FOUR TIMES A DAY NEEDED FOR HYPERGLYCEMIA (HIGH SUGAR). 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[place] heart without angina pectoris 10/25/2023 MRI [...] 10/23/2008 02/16/2013 ACTIVE CASE MANAGEMENT-Yanet Landa Rn- [phone] 09/28/2007 02/16/2008 Malignant neoplasm soft tissue head [...] mRNA, LNP-s, No Pre serve, 2-Dose Series (Likeastore) 02/18/2022,10/11/2020,09/13/2020 Pneumococcal Conjugate Vacc, 13 Valent (Prevnar) 10/26/2014 Pneumococcal Conjugate Vacci ne, 20-valent ([id number]) 04/10/2024 Pneumococcal Polysaccharide PPV23 (Pneumovax) 02/24/2016,04/19/2008 Rabies [...] encounter Miscellaneous Notes * Telephone Encounter - Caron Julien RN - 09/07/2024 12:41 PM EST Completed anesthesia assessment on patient. Advised patient to arrive one hour prior to scheduled appointment time. General anesthesia reviewed with patient and/or family. Patient verbalized understanding of the information given. I have instructed the patient on which medications to take the day of the procedure, which are celexa, clonidine and midodrine with a few sips of water the morning of the procedure. Patient instructed to not eat or drink after midnight prior to the procedure, except medications and clear liquids up to 2 hours before the procedure. Patient instructed to not smoke or use smokeless tobacco, not to wear any jewelry, or use lotion the day of the procedure. Patient instructed to bring a driver/sales workers. Patient voiced no other concerns or questions about the instructions provided to them about their procedure. Denies any flu-like symptoms (cough,fever or shortness of breath)or traveling outside the [place] (by plane/cruise ship) in the past 14 days or coming in contact with anyone that has tested positive for the Coronavirus. documented in this encounter Plan of Treatment Upcoming Encounters Date Type Department Care Team (Latest Contact Info) Description 09/08/2024 1:40 PM EST Office Visit Nephrology, [address] [place] [address] Jayden Vasques MD 200 [place] [address] 09/12/2024 10:45 AM EST [place] [facility] [place], [facility] 1, [address] [place] [address] Sera Iglesias MD [address] [place] [address] 09/12/2024 10:45 AM EST - 09/12/2024 11:15 AM EST [place] [facility] [place] [address], [facility] 1, [address] [place] [address] Sera Iglesias MD [address] [place] [address] ESOPHAGOGASTRODUODENOSCOPY (EGD), FLEXIBLE, TRANSORAL, DIAGNOSTIC 09/13/2024 11:00 AM EST Rehab Services Voice Lab [facility] [address] [place] [address] Blane Lares, [facility]-STENCIL MACHINE OPERATOR [address] [place] [address] 10/18/2024 11:00 AM EDT [facility] [address] [place] [address] Ariadne Ivey Au.D. [address] [place] [address] 10/18/2024 1:30 PM EDT Office Visit Otolaryngology/ Head & Neck/Facial Plastic Surgery [address] [place] [address], [place] [id number] Ollie Borja MD [address] [place] [address] 10/31/2024 2:30 PM EDT [facility] [address] [place] [address] Sofie Elizabeth, CCC-STENCIL MACHINE OPERATOR [address] [place] [address] 01/02/2025 1:00 PM EDT Office Visit Otolaryngology/ Head & Neck/Facial Plastic Surgery [address] [place] [address] Jenn Genitle MD [address] [place] [address] Scheduled Procedures Name Priority Associated Diagnoses Date/Ti [...] this encounter Medical Devices Implanted Type Area Etcher Hand Device Identifier Shelf Expiration Date Model / Serial / Lot [id number] - [id number] Implanted:Q[place] : 1 on 09/26/2007 [place] [facility] [place] - Human Right: Neck LIFE CELL MARIANO 10/17/2008 [id number] / / [id number] Description:alloderm 3x7cm Elect Nucleus Slim Str [id number] - [id number] Implanted:Qty : 1 on 12/21/2022 by Ollie Borja MD [place] [facility] [place]: Ear [employer] 11/04/2024 [id number] / / [id number] Supervisor Riveting Ves Gold 3.0 [id number] - [id number] Implanted:Qty : 1 on 07/10/2024 by Jenn Gentile MD [place] [facility] [place]/A: Neck SYNOVIS SURGICAL 09/01/2028 [id number] / / [id number] Set Puncture Provox Castillo [id number] - [id number] Implanted:Qty : 1 on 07/10/2024 by Jenn Gentile MD [place] [facility] [place]/A: Neck AT MEDICAL [id number] 09/15/2026 [id number] / / [id number] documented as of this encounter Advance Directives [...] 1:38 PM 08/12/2007 5:16 PM Care Teams Client Project Coordinator Relationship Specialty Start Date End Date Patricia Leal PA-C [facility] [place] [address] PCP - General Physician Ion Exchange Operator 07/26/24 documented as of this encounter
--- OUTSIDE RECORDS SUMMARY | 2024-09-13 19:53 | External Medical Summary | Summary of Care ---
Author Name Unknown Organization [facility] Address [address] [place] [address] Phone [phone] Care Team Providers Care Orchard Worker Name Role Phone MarinaPatricia ibanez Cornel REHMAN Primary Care Provider [phone] Encounter Details Date Type Department Care Team (Late st Contact Info) Description 08/07/2024 Population Health External Data Unspecified Department Allergies Active Allergy Reactions Criticality Noted Date Comments Sulfamethoxazole-Trimethoprim Hives Medium 2016 Levofloxacin Rash Low 03/03/2017 Lisinopril 03/12/2021 Raises bp Nitrates, Organic 09/07/2000 Unconsciousness Sertraline Low 02/09/2019 Other reaction(s): NOSE BLEEDS Sulfamethoxazole Itching High 02/09/2019 Terazosin 12/08/2001 priaprism Trimethoprim Itching High 02/09/2019 documented as of this encounter (statuses as of 08/07/2024) Medications Acetaminophen 500 MG Oral Capsule Administer 2 Capsules into G tube every 6 hours as needed for Pain, Moderate. 03/10/20 21 Active Glucose 40 % Oral Gel (Glutose 15) 01/20/20 21 Active Aspirin EC 81 MG Oral Tablet Delayed Release Take 1 Tab by mouth daily. 90 Tab 3 04/24/20 21 Active OneTouch Ultra In Vitro Strip (Glucose Blood)Indications: Hypoglycemia USE DIRECTED FOUR TIMES A DAY NEEDED FOR HYPERGLYCEMIA (HIGH SUGAR). DX:E11.9 100 Strip 5 10/29/19 23 Active Albuterol Sulfate 1.25 MG/3ML Inhalation Nebulization SolutionIndication s:Wheezing,Bronchi tis, complicated,COPD exacerbation (HCC),COPD, group C, by GOLD 2017 classification ([facility]) Inhale 1 vial via nebulizer every 4 hours as needed for Shortness of Breath or Wheezing. 360 mL 3 4 5:12 PM EST 07/27/19 24 Active Latanoprost 0.005 % Ophthalmic Solution (Xalatan) Instill 1 Drop into both eyes every evening. 10 mL 3 4 9:30 AM EST 08/19/19 24 Active Atorvastatin Calcium 40 MG Oral Tablet (Lipitor)Indicatio ns:Coronary artery disease involving [place]ahu[place] coronary artery of [place]ahu[place] heart without angina pectoris Take 1 Tablet [...] As Needed for constipation 30 Tablet 02/28/20 Active Additional Information Patient not taking.Reported on 07/26/2024 Stiolto Respimat 2.5-2.5 MCG/ACT Inhalation Aerosol Solution (Tiotropium-Olodat ruben) Inhale 2 Puffs by mouth in the morning. 4 g 9 4 3:49 PM EDT 04/19/20 24 Active Midodrine HCl 10 MG Oral Tablet (Proamatine) take 1 tablet by mouth three times daily with meals 270 Tablet 4 5:20 PM EDT 05/10/20 24 Active Azithromycin 200 MG/5ML Oral Suspension [...] Tablet 3 4 9:16 AM EST 07/10/20 Active Misc. Devices Cool mist humidification device 1 Each 07/14/20 Active Misc. Devices Portable suction device 1 Each 07/14/20 Active Misc. Devices 14 Fr flexible suction catheters 30 Each 5 07/14/20 24 Active Calcium Carbonate Antacid 750 MG Oral Tablet Chewable (Tums E-X) Administer 2 Tablets into G tube at noon and 2 Tablets in the evening. 30 Tablet 3 4 12:38 PM EST 07/18/20 Active Bacitracin Zinc 500 UNIT/GM External Ointment Apply topically to affected area 2 times a day. Apply to neck and leg incisions 3 times daily. 113.6 g 4 12:38 PM EST 07/18/20 24 Active Vitamin B-12 1000 MCG Oral Tablet (Cyanocobalamin) Administer 1 Tablet into G tube in the morning. 30 Tablet 3 4 12:38 PM EST 07/19/19 25 Active Folic Acid 1 MG Oral Tablet Administer 1 Tablet into G tube in the morning. 30 Tablet 4 12:38 PM EST 07/19/19 25 025 Active Water For Irrigation, Sterile (WATER FLUSH) [...] or other meds) 30 Tablet 07/19/19 25 025 Active Ondansetron HCl 4 MG/5ML Oral Solution (Zofran) Take 5 mL by mouth every 8 hours as needed for Nausea or Vomiting. 50 mL 4 12:38 PM EST 07/18/20 24 Active Additional Information Patient not taking.Reported on 07/26/2024 Hospital, Clinic, or Other Facility Administered Medication Ordered Dose Route Frequency Start Date End Date Status Albuterol Sulfate (Proventil) (2.5 MG/3ML) 0.083% inhalation solution 2.5 mgIndications:Dyspnea, unspecified type 2.5 mg NEBULIZER PRN 02/27/2024 Active documented as of this encounter (statuses as of 08/07/2024) Active Problems Problem Noted Date Diagnosed Date Coronary artery disease invo lving [place]ahu[place] coronary artery of [place]ahu[place] heart without angina pectoris 10/25/2023 MRI contraindicated [...] as of this encounter (statuses as of 08/07/2024) Resolved Problems Problem Noted Date Diagnosed Date [...] 10/23/2008 02/16/2013 ACTIVE CASE MANAGEMENT-Yanet Landa Rn- [phone] 09/28/2007 02/16/2008 Malignant neoplasm soft tissue head [...] as of this encounter (statuses as of 08/07/2024) Immunizations Name Administration Dates Next Due COVID-19 mRNA, LNP-s, No Pre serve, 2-Dose Series (SmashFly) 02/18/2022,10/11/2020,09/13/2020 Pneumococcal Conjugate Vacc, 13 Valent (Prevnar) 10/26/2014 Pneumococcal Conjugate Vacci ne, 20-valent ([id number]) 04/10/2024 Pneumococcal Polysaccharide PPV23 (Pneumovax) 02/24/2016,04/19/2008 Rabies [...] ages 0-17 years) Not on file 02/18/2024 Sex and Gender Information Value Date [...] Iglesia Chowdary RN documented in this encounter Plan of Treatment Upcoming Encounters Date Type Department Care Team (Late st Contact Info) Description 08/09/2024 11:00 AM EST Rehab Services Voice Lab [facility] [address] [place] [address] Blane Lares, [facility]-PHYSICAL EDUCATION PROFESSOR [address] [place] [address] 09/06/2024 9:00 AM EST [facility] Services [facility] [address] [place] [address] Sofie Elizabeth, [facility]-PHYSICAL EDUCATION PROFESSOR [address] [place] [address] 09/06/2024 10:30 AM EST Office Visit Otolaryngology/Head & Neck/Facial Plastic Surgery [address] [place] [address] Jenn Gentile MD [address] [place] [address] 09/08/2024 1:40 PM EST Office Visit Nephrology, [facility] [address] [place] [address] Jayden Vasques MD [address] [place] [address] 10/12/2024 2:15 PM EDT Office Visit [facility] Eye [address] [phone] Marta Moran MD [address] [place] [address] [phone] Flash Cortes [address] [place] [phone] Photographer Sophia Dalton [address] [place] [address], [place] [address] Scheduled Procedures Name Priority Associated Diagnoses Date/Ti [...] this encounter Medical Devices Implanted Type Area Tester Waste Disposal Leakage Device Identifier Shelf Expiration Date Model / Serial / Lot [id number] - [id number] Implanted:Qty : 1 on 09/26/2007 at [place] [facility] [place] Tissue - Human Right: Neck LIFE CELL MARIANO 10/17/2008 [id number] / / [id number] Description:alloderm 3x7cm Elect Nucleus Slim Str [id number] - [id number] Implanted:Qty : 1 on 12/21/2022 by Ollie Borja MD at [place] [facility] Left: Ear [employer] 11/04/2024 [id number] / / [id number] Tube Rebuilder Ves Gold 3.0 [id number] - [id number] Implanted:Qty : 1 on 07/10/2024 by Jenn Gentile MD at [place] [facility] N/A: Neck SYNOVIS SURGICAL 09/01/2028 [id number] / / [id number] Set Puncture Provox Castillo [id number] - [id number] Implanted:Qty : 1 on 07/10/2024 by Jenn Gentile MD at [place] [facility] N/A: Neck AT MEDICAL [id number] 09/15/2026 [id number] / / [id number] documented as of this encounter Advance Directives [...] 1:38 PM 08/12/2007 5:16 PM Care Teams Orchard Worker Relationship Specialty Start Date End Date Patricia Leal, ORI [address] [place] [address] PCP - General Physician Trimming Operator 07/26/24 documented as of this encounter
--- OUTSIDE RECORDS SUMMARY | 2024-09-13 19:53 | External Medical Summary | Summary of Care ---
Author Name Unknown Organization [facility] Address [address] [facility] [place] [address] Phone [phone] Care Team Providers Care Associate Director Regulatory Affairs Name Role Phone MarinaPatricia ibanez Cornel REHMAN Primary Care Provider [phone] Reason for Visit * Reason Comments Voice Change dysphagia Encounter Details Date Type Department Care Team (Late st Contact Info) Description 08/09/2024 11:00 AM EST Rehab Services Voice Lab [facility] [address] [place] [address] Blaen Lares, [facility]-CRATER AND PACKER [address] [facility] [place] [address] Arrived Allergies Active Allergy Reactions Criticality Noted Date Comments Sulfamethoxazole-Trimethoprim Hives Medium 2016 Levofloxacin Rash Low 03/03/2017 Lisinopril 03/12/2021 Raises bp Nitrates, Organic 09/07/2000 Unconsciousness Sertraline Low 02/09/2019 Other reaction(s): NOSE BLEEDS Sulfamethoxazole Itching High 02/09/2019 Terazosin 12/08/2001 priaprism Trimethoprim Itching High 02/09/2019 documented as of this encounter (statuses as of 08/09/2024) Medications Acetaminophen 500 MG Oral Capsule Administer [...] by GOLD 2017 classification ([facility]) Inhale 1 vial via nebulizer every 4 hours as needed for Shortness of Breath or Wheezing. 360 mL 3 4 5:12 PM EST 07/27/19 24 Active Latanoprost 0.005 % Ophthalmic Solution (Xalatan) Instill 1 Drop into both eyes every evening. 10 mL 3 4 9:30 AM EST 08/19/19 24 Active Atorvastatin Calcium 40 MG Oral Tablet (Lipitor)Indicatio ns:Coronary artery disease involving ruby coronary artery of ruby heart without angina pectoris Take 1 Tablet [...] as of this encounter (statuses as of 08/09/2024) Active Problems Problem Noted Date Diagnosed Date Coronary artery disease invo lving ruby coronary artery of ruby heart without angina pectoris 10/25/2023 MRI contraindicated [...] as of this encounter (statuses as of 08/09/2024) Resolved Problems Problem Noted Date Diagnosed Date [...] 10/23/2008 02/16/2013 ACTIVE CASE MANAGEMENT-Yanet Landa Rn- [phone] 09/28/2007 02/16/2008 Malignant neoplasm soft tissue head [...] as of this encounter (statuses as of 08/09/2024) Immunizations Name Administration Dates Next Due COVID-19 mRNA, LNP-s, No Pre serve, 2-Dose Series (Labfolder) 02/18/2022,10/11/2020,09/13/2020 Pneumococcal Conjugate Vacc, 13 Valent (Prevnar) 10/26/2014 Pneumococcal Conjugate Vacci ne, 20-valent ([id number]) 04/10/2024 Pneumococcal Polysaccharide PPV23 (Pneumovax) 02/24/2016,04/19/2008 Rabies [...] Assessment Author No 07/10/2024 4:47 PM Iglesia Cristnia RN * Do you have serious difficulty [...] documented in this encounter Progress Notes * Blane Lares CCC-CRATER AND PACKER - 08/09/2024 12:21 PM EST CLINIC NOTES Voice Lab [address] [address] Rodney Canseco : 1945 08/09/2024 First visit on referral from Dr. Gentile otolaryngology and Sofie Elizabeth speech language pathologist. Patient accompanied by his who gives the following update Dysphagia He is PO for soft pureed foods eating such items as cottage cheese, soups, applesauce, soft meat, peas and carrots and ice cream . He is eating in a reclining position . There is no nasal regurgitation Tracheoesophageal speech Patient with difficulty securing seal . Voice is whisper with no true esophageal tone elicited today . Questions Numerous questions were answered for his . Emergency use of catheters provided on how to placein the tracheoesophageal puncture area . 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 a new 1 is ordered and should be in next week . Patient's also goingto be calling [facility] for matched appointment with As a rate 0 on the same day patient's sees Dr. Gentile for routine laryngectomy follow-up . I will see the patient return visit in 1 week Blane Lares CCC-CRATER AND PACKER [facility] - Language Pathology 08/09/2024 12:21 PM documented in this encounter Plan of Treatment Upcoming Encounters Date Type Department Care Team (Late st Contact Info) Description 09/06/2024 9:00 AM EST Rehab Services Voice Lab, [place] [address] [place] [address] Sofie Elizabeth, CCC-CRATER AND PACKER [address] [place] [address] 09/06/2024 10:30 AM EST Office Visit Otolaryngology/Head & Neck/Facial Plastic Surgery [address] [place] [address] Jenn Gentile MD [address] [place], [place] [address] 09/08/2024 1:40 PM EST Office Visit Nephrology, [facility] [address] [place] [address] Jayden Vasques MD [address] [place] [address] 10/12/2024 2:15 PM EDT Office Visit [facility] Eye [address] [address] Marta Moran MD [address] [place] [phone] Flash Cortes Nurse [address] [place] [address] Photographer Sophia [address] [address] Scheduled Procedures Name Priority Associated Diagnoses Date/Ti [...] this encounter Medical Devices Implanted Type Area Employee 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s Intern Device Identifier Shelf Expiration Date Model / Serial / Lot [id number] - [id number] Implanted:Qty : 1 on 09/26/2007 [place] [facility] [place] Tissue - Human Right: Neck LIFE CELL MARIANO 10/17/2008 [id number] / / [id number] Description:alloderm 3x7cm Elect Nucleus Slim Str [id number] - [id number] Implanted:Qty : 1 on 12/21/2022 by Ollie Borja MD at [place] [facility] [place] Left: Ear [employer] 11/04/2024 [id number] / / [id number] Entry Level Chemist Ves Gold 3.0 [id number] - [id number] Implanted:Qty : 1 on 07/10/2024 by Jenn Gentile MD at [place] [facility] [place] N/A: Neck SYNOVIS SURGICAL 09/01/2028 [id number] / / [id number] Set Puncture Provox Castillo [id number] - [id number] Implanted:Qty : 1 on 07/10/2024 by Jenn Gentile MD at [place] [facility] [place] N/A: Neck [employer] [id number] 09/15/2026 [id number] / / [id number] documented as of this encounter Advance Directives [...] 1:38 PM 08/12/2007 5:16 PM Care Teams Associate Director Regulatory Affairs Relationship Specialty Start Date End Date Patricia Leal PA-C [address] [place] [address] [place] [address] PCP - General Physician Certified Ski Patroller 07/26/24 documented as of this encounter
--- OUTSIDE RECORDS SUMMARY | 2024-09-13 19:53 | External Medical Summary | Summary of Care ---
Author Name Unknown Organization [facility] Address [address] [place] [address] Phone [phone] Care Team Providers Care Multi Operation Machine Operator Name Role Phone MarinaPatricia ibanez Cornel REHMAN Primary Care Provider [phone] Reason for Visit * Reason Onset Date Comments Appointment 08/30/2024 Encounter Details Date Type Department Care Team (Late st Contact Info) Description 08/30/2024 Telephone Voice Lab, [place] [address] [place] [address] Sofie Elizabeth, [facility]-O[facility] PROC[facility] STILLMAN [address] [place], [place] [phone] Appointment Allergies Active Allergy Reactions Criticality Noted Date Comments Sulfamethoxazole-Trimethoprim Hives Medium 2016 Levofloxacin Rash Low 03/03/2017 Lisinopril 03/12/2021 Raises bp Nitrates, Organic 09/07/2000 Unconsciousness Sertraline Low 02/09/2019 Other reaction(s): NOSE BLEEDS Sulfamethoxazole Itching High 02/09/2019 Terazosin 12/08/2001 priaprism Trimethoprim Itching High 02/09/2019 documented as of this encounter (statuses as of 08/30/2024) Medications Acetaminophen 500 MG Oral Capsule Administer [...] (HCC),COPD, group C, by GOLD 2017 classification ([facility]) Inhale 1 vial via nebulizer every 4 hours as needed for Shortness of Breath or Wheezing. 360 mL 3 4 5:12 PM EST 07/27/19 24 Active Latanoprost 0.005 % Ophthalmic Solution (Xalatan) Instill 1 Drop into both eyes every evening. 10 mL 3 4 9:30 AM EST 08/19/19 24 Active Atorvastatin Calcium 40 MG Oral Tablet (Lipitor)Indicatio ns:Coronary artery disease involving [place] coronary artery of [place] heart without angina pectoris Take 1 [...] as of this encounter (statuses as of 08/30/2024) Active Problems Problem Noted Date Diagnosed Date Coronary artery disease invo lving [place] coronary artery of [place] heart without angina pectoris 10/25/2023 MRI [...] as of this encounter (statuses as of 08/30/2024) Resolved Problems Problem Noted Date Diagnosed Date [...] 10/23/2008 02/16/2013 ACTIVE CASE MANAGEMENT-Yanet Landa Rn- [phone] 09/28/2007 02/16/2008 Malignant neoplasm soft tissue head [...] as of this encounter (statuses as of 08/30/2024) Immunizations Name Administration Dates Next Due COVID-19 mRNA, LNP-s, No Pre serve, 2-Dose Series (Haivision) 02/18/2022,10/11/2020,09/13/2020 PPD 08/09/2002 Pneumococcal Conjugate Vacc, 13 Valent (Prevnar) 10/26/2014 Pneumococcal Conjugate Vacci ne, 20-valent ([id number]) 04/10/2024 Pneumococcal Polysaccharide PPV23 (Pneumovax) 02/24/2016,04/19/2008 Rabies [...] Iglesia Chowdary RN documented in this encounter Miscellaneous Notes * Telephone Encounter - Shelly Miles OSA - 08/30/2024 1:49 PM EST Spoke with patients , offered a return appointment for 11/10 at 2:30 pm, patients acceptedthis appointment * Telephone Encounter - Shelly Miles OSA - 08/30/2024 11:25 AM EST Spoke with patients , informed them of kishore being out for surgery and being on leave for 8 weeks, asked them to come in for an appointment today per Kishore, patient and declined documented in this encounter Plan of Treatment Upcoming Encounters Date Type Department Care Team (Late st Contact Info) Description 09/06/2024 10:30 AM EST Office Visit Otolaryngology/Head & Neck/Facial Plastic Surgery [address] [facility] [place] [address] Jenn Gentile MD [address] [facility] [place] [address] 09/08/2024 1:40 PM EST Office Visit Nephrology, [address] [place] [address] Jayden Vasques MD [address] [place] [address] 09/13/2024 11:00 AM EST Rehab Services Voice Lab [facility] [address] [place] [address] Blane Lares, CCC-OIL PROCESS STILLMAN [address] [place] [address] 10/18/2024 11:00 AM EDT [facility] [address] [place] [address] Ariadne Ivey Au.D. [address] [place] [address] 10/18/2024 1:30 PM EDT Office Visit Otolaryngology/Head & Neck/Facial Plastic Surgery [address] [place] [address] Ollie Borja MD [address] [place] [address] 10/31/2024 2:30 PM EDT [facility] [address] [place] [address] Sofie Elizabeth, CCC-OIL PROCESS STILLMAN [address] [place], [place] [id number] Scheduled Procedures Name Priority Associated Diagnoses Date/Ti [...] this encounter Medical Devices Implanted Type Area Maintenance Associate Device Identifier Shelf Expiration Date Model / Serial / Lot [id number] - [id number] Implanted:Qty : 1 on 09/26/2007 [place] [facility] [place] Tissue - Human Right: Neck LIFE CELL MARIANO 10/17/2008 [id number] / / [id number] Description:alloderm 3x7cm Elect Nucleus Slim Str [id number] - [id number] Implanted:Qty : 1 on 12/21/2022 by Ollie Borja MD [place] [facility] [place] Left: Ear COCHLEAR AMERICAS 11/04/2024 [id number] / / [id number] Lawyers Ves Gold 3.0 [id number] - [id number] Implanted:Qty : 1 on 07/10/2024 by Jenn Gentile MD [place] [facility] [place] N/A: Neck SYNOVIS SURGICAL 09/01/2028 [id number] / / [id number] Set Puncture Provox Castillo [id number] - [id number] Implanted:Qty : 1 on 07/10/2024 by Jenn Gentile MD at [place] [facility] [place] N/A: Neck ATOS MEDICAL [id number] 09/15/2026 [id number] / / [id number] documented as of this encounter Advance Directives [...] 1:38 PM 08/12/2007 5:16 PM Care Teams Multi Operation Machine Operator Relationship Specialty Start Date End Date Mel October ORI Unger [facility] [place] [place] [address] PCP - General Physician Manager Corporate Responsibility 07/26/24 documented as of this encounter
--- OUTSIDE RECORDS SUMMARY | 2024-09-13 19:53 | External Medical Summary | Summary of Care ---
Author Name Unknown Organization [facility] Address [address] [place] [address] Phone [phone] Care Team Providers Care Jack Strip Assembler Name Role Phone MarinaPatricia ibanze Cornel REHMAN Primary Care Provider [phone] Reason for Visit * Reason Onset Date Comments Appointment 08/14/[address] Hali hart for cochlear Encounter Details Date Type Department Care Team (Late st Contact Info) Description 08/14/2024 Telephone Otolaryngology/Head & Neck/Facial Plastic Surgery [address] [place] [address] Services, Scheduling [address] [place] [address] Appointment (Appt with Dr Borja for coch... Allergies Active Allergy Reactions Criticality Noted Date Comments Sulfamethoxazole-Trimethoprim Hives Medium 2016 Levofloxacin Rash Low 03/03/2017 Lisinopril 03/12/2021 Raises bp Nitrates, Organic 09/07/2000 Unconsciousness Sertraline Low 02/09/2019 Other reaction(s): NOSE BLEEDS Sulfamethoxazole Itching High 02/09/2019 Terazosin 12/08/2001 priaprism Trimethoprim Itching High 02/09/2019 documented as of this encounter (statuses as of 08/14/2024) Medications Acetaminophen 500 MG Oral Capsule Administer [...] group C, by GOLD 2017 classification ([facility]) Inhale 1 vial via nebulizer every 4 hours as needed for Shortness of Breath or Wheezing. 360 mL 3 4 5:12 PM EST 07/27/19 24 Active Latanoprost 0.005 % Ophthalmic Solution (Xalatan) Instill 1 Drop into both eyes every evening. 10 mL 3 4 9:30 AM EST 08/19/19 24 Active Atorvastatin Calcium 40 MG Oral Tablet (Lipitor)Indicatio ns:Coronary artery disease involving creek coronary artery of creek heart without angina pectoris Take 1 [...] as of this encounter (statuses as of 08/14/2024) Active Problems Problem Noted Date Diagnosed Date Coronary artery disease invo lving creek coronary artery of creek heart without angina pectoris 10/25/2023 MRI [...] as of this encounter (statuses as of 08/14/2024) Resolved Problems Problem Noted Date Diagnosed Date [...] 10/23/2008 02/16/2013 ACTIVE CASE MANAGEMENT-Yanet Landa Rn- [phone] 09/28/2007 02/16/2008 Malignant neoplasm soft tissue head [...] as of this encounter (statuses as of 08/14/2024) Immunizations Name Administration Dates Next Due COVID-19 mRNA, LNP-s, No Pre serve, 2-Dose Series (Humble Bundle) 02/18/2022,10/11/2020,09/13/2020 Pneumococcal Conjugate Vacc, 13 Valent (Prevnar) 10/26/2014 Pneumococcal Conjugate Vacci ne, 20-valent (Gequorq89) 04/10/2024 Pneumococcal Polysaccharide PPV23 (Pneumovax) 02/24/2016,04/19/2008 Rabies [...] No 02/18/2024 Does the household have a [facility] source of income? (Household - for ages [...] encounter Miscellaneous Notes * Telephone Encounter - Marii Baires LPN - 08/14/2024 11:51 AM EST Called & spoke with sahra Saenz 10/18/24 at 1:30pm with in [place] * Telephone Encounter - Naina Aguilera OSA - 08/14/2024 9:16 AM EST Pt's called stating that pt has never had an appt for his cochlear implant after placement. PT is scheduled on 10/18 with audio and would like to see Dr Borja that day. There is a 1:30p appt but it is a private slot. They travel far to get to [place] and would be ok with the 1:30p slot on 10/18. Please contact Letty at [phone] documented in this encounter Plan of Treatment Upcoming Encounters Date Type Department Care Team (Late st Contact Info) Description 08/16/2024 11:00 AM EST Rehab Services Voice Lab [facility] [address] [place] [address] Blane Lares [facility] [address] [place] [address] 09/06/2024 9:00 AM EST [place] [address] [place] [facility] [place] [address] Sofie Elizabeth, CCC-QUARTZ MINER [address] [place] [address] 09/06/2024 10:30 AM EST Office Visit Otolaryngology/Head & Neck/Facial Plastic Surgery [address] [place] [address] Jenn Gentile MD [address] [place] [address] 09/08/2024 1:40 PM EST Office Visit Nephrology, [facility] [address] [place] [address] Jayden Vasques MD [address] [place] [address] 10/12/2024 2:15 PM EDT Office Visit [facility] [address] [phone] Marta Moran MD [address] [place] [address] Flash Cortes [address] [place] [address] Photographer Sophia [address] 10/18/2024 11:00 AM EDT Office Visit Audiology, [place] [address] [place] [address] Ariadne Ivey Au.D. [address] [place] [address] 10/18/2024 1:30 PM EDT Office Visit Otolaryngology/Head & Neck/Facial Plastic Surgery [address] [place] [address] Ollie Borja MD [address] [place] [address] Scheduled Procedures Name Priority Associated Diagnoses Date/Ti [...] this encounter Medical Devices Implanted Type Area Instrument Shop Supervisor Device Identifier Shelf Expiration Date Model / Serial / Lot [id number] - [id number] Implanted:Qty : 1 on 09/26/2007 [place] [facility] [place] - Human Right: Neck LIFE CELL MARIANO 10/17/2008 [id number] / / [id number] Description:alloderm 3x7cm Elect Nucleus Slim Str [id number] - [id number] Implanted:Qty : 1 on 12/21/2022 by Ollie Borja MD [place] [facility] [place] Left: Ear COCHLEAR [employer] 11/04/2024 [id number] / / [id number] Fitness Coordinator Ves Gold 3.0 [id number] - [id number] Implanted:Qty : 1 on 07/10/2024 by Jenn Gentile MD [place] [facility] [place] N/A: Neck SYNOVIS SURGICAL 09/01/2028 [id number] / / [id number] Set Puncture Provox Castillo [id number] - [id number] Implanted:Qty : 1 on 07/10/2024 by Jenn Gentile MD at [place] [facility] [place] N/A: Neck ATOS MEDICAL [id number] 09/15/2026 [id number] / / [id number] documented as of this encounter Advance Directives [...] 1:38 PM 08/12/2007 5:16 PM Care Teams Jack Strip Assembler Relationship Specialty Start Date End Date Patricia Leal PA-C [address] [place] [address] PCP - General Physician Lead Sql Developer 07/26/24 documented as of this encounter
--- OUTSIDE RECORDS SUMMARY | 2024-09-13 19:53 | External Medical Summary | Summary of Care ---
Author Name Unknown Organization [facility] Address [address] [place] [address] Phone [phone] Care Team Providers Care Offender Employment Specialist Name Role Phone MarinaPatricia ibanez Cornel REHMAN Primary Care Provider [phone] Reason for Visit * Reason Onset Date Comments Appointment 08/30/2024 Encounter Details Date Type Department Care Team (Late st Contact Info) Description 08/30/2024 Telephone Voice Lab, [place] [address] [place] [address] Sofie Elizabeth, [facility] [address] [place], [place] [phone] Appointment Allergies Active Allergy Reactions Criticality Noted [...] C, by GOLD 2017 classification ([facility]) Inhale 1 vial via nebulizer every 4 hours as needed for Shortness of Breath or Wheezing. 360 mL 3 4 5:12 PM EST 07/27/19 24 Active Latanoprost 0.005 % Ophthalmic Solution (Xalatan) Instill 1 Drop into both eyes every evening. 10 mL 3 4 9:30 AM EST 08/19/19 24 Active Atorvastatin Calcium 40 MG Oral Tablet (Lipitor)Indicatio ns:Coronary artery disease involving hoh coronary artery of hoh heart without angina pectoris Take 1 Tablet [...] Diagnosed Date Coronary artery disease invo lving hoh coronary artery of hoh heart without angina pectoris 10/25/2023 MRI contraindicated [...] 10/23/2008 02/16/2013 ACTIVE CASE MANAGEMENT-Yanet Landa Rn- [phone] 09/28/2007 02/16/2008 Malignant neoplasm soft tissue head [...] mRNA, LNP-s, No Pre serve, 2-Dose Series ([employer]) 02/18/2022,10/11/2020,09/13/2020 PPD 08/09/2002 Pneumococcal Conjugate Vacc, 13 Valent (Prevnar) 10/26/2014 Pneumococcal Conjugate Vacci ne, 20-valent ([id number]) 04/10/2024 Pneumococcal Polysaccharide PPV23 (Pneumovax) 02/24/2016,04/19/2008 Rabies [...] Otolaryngology/Head & Neck/Facial Plastic Surgery [address] [facility] [place] [address] Jenn Gentile MD [address] [facility] [place] [address] 09/08/2024 1:40 PM EST Office Visit Nephrology, [address] [place] [address] Jayden Vasques MD [address] [place] [address] 09/13/2024 11:00 AM EST Rehab Services Voice Lab [facility] [address] [place] [address] Blane Lares, CCC-CLOTH ROLL WINDER [address] [place] [address] 10/18/2024 11:00 AM EDT [facility] [address] [place] [address] Ariadne Ivey Au.D. [address] [place] [address] 10/18/2024 1:30 PM EDT Office Visit Otolaryngology/Head & Neck/Facial Plastic Surgery [address] [place] [address] Ollie Borja MD [address] [place] [address] 10/31/2024 2:30 PM EDT [facility] [address] [place] [address] Sofie Elizabeth, CCC-CLOTH ROLL WINDER [address] [place], [place] [address] Scheduled Procedures Name Priority Associated Diagnoses Date/Ti [...] this encounter Medical Devices Implanted Type Area Receptionist Secretary Device Identifier Shelf Expiration Date Model / Serial / Lot [id number] - [id number] Im[place]ed:[place] 09[place]26/[place] [facility] [place] - Human Right: Neck LIFE CELL MARIANO 10/17/2008 [id number] / / [id number] Description:alloderm 3x7cm Elect Nucleus Slim Str [id number] - [id number] Implanted:Qty : 1 on 12/21/2022 by [place]ie Borja [place] [facility] [place]: Ear [employer] 11/04/2024 [id number] / / [id number] Stonemason Helper Ves Gold 3.0 [id number] - [id number] Implanted:Qty : 1 on 07/10/2024 by Jenn Gentile [place] [facility] [place]A: Neck SYNOVIS SURGICAL 09/01/2028 [id number] / / [id number] Set Puncture Provox Castillo [id number] - [id number] Implanted:Qty : 1 on 07/10/2024 by Jenn Gentile [place] [facility] [place]/A: Neck ATOS MEDICAL [id number] 09/15/2026 [id number] / / [id number] documented as of this encounter Advance Directives [...] 1:38 PM 08/12/2007 5:16 PM Care Teams Offender Employment Specialist Relationship Specialty Start Date End Date Mel October ORI Unger [facility] [address] [place] [address] PCP - General Physician Business Services Representative 07/26/24 documented as of this encounter
--- OUTSIDE RECORDS SUMMARY | 2024-09-13 19:53 | External Medical Summary | Summary of Care ---
Author Name Unknown Organization [facility] Address [address] [place] [address] Phone [phone] Care Team Providers Care Director Volunteer Services Name Role Phone Mel Patricia Unger PA-C Primary Care Provider [phone] Encounter Details Date Type Department Care Team (Late st Contact Info) Description 08/10/2024 3:30 PM EST Scheduled Telephone Care Coordination and Integration [address] [place] [address] Inez Laureano, [facility] Video Game Script Writer [address] [place], [place] [phone] Allergies Active Allergy Reactions Criticality Noted Date Comments Sulfamethoxazole-Trimethoprim Hives Medium 2016 Levofloxacin Rash Low 03/03/2017 Lisinopril 03/12/2021 Raises bp Nitrates, Organic 09/07/2000 Unconsciousness Sertraline Low 02/09/2019 Other reaction(s): NOSE BLEEDS Sulfamethoxazole Itching High 02/09/2019 Terazosin 12/08/2001 priaprism Trimethoprim Itching High 02/09/2019 documented as of this encounter (statuses as of 08/10/2024) Medications Acetaminophen 500 MG Oral Capsule Administer 2 Capsules into G tube every 6 hours as needed for Pain, Moderate. 03/10/20 21 Active Glucose 40 % Oral Gel (Glutose 15) 01/20/20 21 Active Aspirin EC 81 MG Oral Tablet Delayed Release Take 1 Tab by mouth daily. 90 Tab 3 04/24/20 21 Active OneOpicosuch Ultra In Vitro Strip (Glucose Blood)Indications: Hypoglycemia USE DIRECTED FOUR TIMES A DAY NEEDED FOR HYPERGLYCEMIA (HIGH SUGAR). DX:E11.9 100 Strip 5 10/29/19 23 Active Albuterol Sulfate 1.25 MG/3ML Inhalation Nebulization SolutionIndication s:Wheezing,Bronchi tis, complicated,COPD exacerbation (HCC),COPD, group C, by GOLD 2017 classification ([facility]) Inhale 1 vial via nebulizer every 4 hours as needed for Shortness of Breath or Wheezing. 360 mL 3 4 5:12 PM EST 07/27/19 24 Active Latanoprost 0.005 % Ophthalmic Solution (Xalatan) Instill 1 Drop into both eyes every evening. 10 mL 3 4 9:30 AM EST 08/19/19 24 Active Atorvastatin Calcium 40 MG Oral Tablet (Lipitor)Indicatio ns:Coronary artery disease involving [place] coronary artery of [place] heart without angina pectoris Take 1 Tablet [...] as of this encounter (statuses as of 08/10/2024) Active Problems Problem Noted Date Diagnosed Date Coronary artery disease invo lving [place] coronary artery of [place] heart without angina pectoris 10/25/2023 MRI contraindicated [...] as of this encounter (statuses as of 08/10/2024) Resolved Problems Problem Noted Date Diagnosed Date [...] 10/23/2008 02/16/2013 ACTIVE CASE MANAGEMENT-Yanet Landa Rn- [phone] 09/28/2007 02/16/2008 Malignant neoplasm soft tissue head [...] as of this encounter (statuses as of 08/10/2024) Immunizations Name Administration Dates Next Due COVID-19 mRNA, LNP-s, No Pre serve, 2-Dose Series (BAASBOX) 02/18/2022,10/11/2020,09/13/2020 Pneumococcal Conjugate Vacc, 13 Valent (Prevnar) 10/26/2014 Pneumococcal Conjugate Vacci ne, 20-valent ([id number]) 04/10/2024 Pneumococcal Polysaccharide PPV23 (Pneumovax) 02/24/2016,04/19/2008 Rabies [...] this encounter Progress Notes * Inez Laureano [facility] Video Game Script Writer - 08/10/2024 3:31 PM EST Telemedicine visit: No Community [facility] Video Game Script Writer (MANNY) documentation: CHW kim call per KENNY Dye Spoke with , Lyric, who states they are en route to an appt and now is not a good time to talk.Requested call back. Electronically signed by Inez Laureano [facility] Video Game Script Writer at 08/10/2024 3:32 PM EST documented in this encounter Plan of Treatment Upcoming Encounters Date Type Department Care Team (Late st Contact Info) Description 08/16/2024 11:00 AM EST Rehab Services Voice Lab [facility] [address] [place] [address] Blane Lares, CCC-INSPECTOR GOVERNMENT PROPERTY [address] [place] [address] 09/06/2024 9:00 AM EST [facility] [address] [place] [address] Sofie Elizabeth, CCC-INSPECTOR GOVERNMENT PROPERTY [address] [place] [address] 09/06/2024 10:30 AM EST Office Visit Otolaryngology/Head & Neck/Facial Plastic Surgery [address] [place] [address] Jenn Gentile MD [address] [place] [address] 09/08/2024 1:40 PM EST Office Visit Nephrology, [facility] [address] [facility] [place], [place] [address] Jayden Vasques MD 200 [facility] [place], [place] [address] 10/12/2024 2:15 PM EDT Office Visit [address] [address] Marta Moran MD [address] [place] [address] [facility]ifee[employer] Nurse [address] [place] [address] Jarred Corteser [address] [address] Scheduled Procedures Name Priority Associated Diagnoses Date/Ti [...] this encounter Medical Devices Implanted Type Area Chart Reader Device Identifier Shelf Expiration Date Model / Serial / Lot [id number] - [id number] Implanted:Qty : 1 on 09/26/2007 [place] [facility] [place] - Human Right: Neck LIFE CELL MARIANO 10/17/2008 [id number] / / [id number] Description:alloderm 3x7cm Elect Nucleus Slim Str [id number] - [id number] Implanted:Qty : 1 on 12/21/2022 by Ollie Borja MD at [place] [facility] [place] Left: Ear [employer] 11/04/2024 [id number] / / [id number] Color Grinder Ves Gold 3.0 [id number] - [id number] Implanted:Qty : 1 on 07/10/2024 by Jenn Gentile MD at [place] [facility] [place] N/A: Neck SYNOVIS SURGICAL 09/01/2028 [id number] / / [id number] Set Puncture Provox Castillo [id number] - [id number] Implanted:Qty : 1 on 07/10/2024 by Jenn Gentile MD at [place] [facility] [place] N/A: Neck ATOS MEDICAL [id number] 09/15/2026 [id number] / / [id number] documented as of this encounter Advance Directives [...] 1:38 PM 08/12/2007 5:16 PM Care Teams Director Volunteer Services Relationship Specialty Start Date End Date Patricia Leal PA-C [address] [facility] [place] [address] PCP - General Physician Video Game Script Writer 07/26/24 documented as of this encounter
--- OUTSIDE RECORDS SUMMARY | 2024-09-13 19:53 | External Medical Summary | Summary of Care ---
Author Name Unknown Organization [facility] Address [address] [place] [address] Phone [phone] Care Team Providers Care Electrician Third Name Role Phone Mel Patricia Unger PA-C Primary Care Provider [phone] Encounter Details Date Type Department Care Team (Late st Contact Info) Description 08/17/2024 10:00 AM EST Scheduled Telephone Care Coordination and Integration [address] [place] [address] Inez Laureano, Community Health Senior Brand Manager [address], [place] [id number] Allergies Active Allergy Reactions Criticality Noted Date Comments Sulfamethoxazole-Trimethoprim Hives Medium 2016 Levofloxacin Rash Low 03/03/2017 Lisinopril 03/12/2021 Raises bp Nitrates, Organic 09/07/2000 Unconsciousness Sertraline Low 02/09/2019 Other reaction(s): NOSE BLEEDS Sulfamethoxazole Itching High 02/09/2019 Terazosin 12/08/2001 priaprism Trimethoprim Itching High 02/09/2019 documented as of this encounter (statuses as of 08/17/2024) Medications Acetaminophen 500 MG Oral Capsule Administer 2 Capsules into G tube every 6 hours as needed for Pain, Moderate. 03/10/20 21 Active Glucose 40 % Oral Gel (Glutose 15) 01/20/20 21 Active Aspirin EC 81 MG Oral Tablet Delayed Release Take 1 Tab by mouth daily. 90 Tab 3 04/24/20 21 Active OneInfoBasisuch Ultra In Vitro Strip (Glucose Blood)Indications: Hypoglycemia [...] Oral Tablet (Lipitor)Indicatio ns:Coronary artery disease involving [place] coronary artery of [place] heart without angina pectoris Take 1 Tablet [...] as of this encounter (statuses as of 08/17/2024) Active Problems Problem Noted Date Diagnosed Date Coronary artery disease invo lving [place]. croix coronary artery of [place] heart without angina pectoris 10/25/2023 MRI contraindicated [...] as of this encounter (statuses as of 08/17/2024) Resolved Problems Problem Noted Date Diagnosed Date [...] 10/23/2008 02/16/2013 ACTIVE CASE MANAGEMENT-Yanet Landa Rn- [phone] 09/28/2007 02/16/2008 Malignant neoplasm soft tissue head [...] as of this encounter (statuses as of 08/17/2024) Immunizations Name Administration Dates Next Due COVID-19 mRNA, LNP-s, No Pre serve, 2-Dose Series (Acoustic Sensing Technology) 02/18/2022,10/11/2020,09/13/2020 Pneumococcal Conjugate Vacc, 13 Valent (Prevnar) 10/26/2014 Pneumococcal Conjugate Vacci ne, 20-valent ([id number]) 04/10/2024 Pneumococcal Polysaccharide PPV23 (Pneumovax) 02/24/2016,04/19/2008 Rabies [...] Assessment Author No 07/10/2024 4:47 PM Iglesia Crisitna RN * Do you have serious difficulty [...] this encounter Progress Notes * Inez Laureano [facility] Health Senior Brand Manager - 08/17/2024 10:51 AM EST Telemedicine visit: No Community Health Senior Brand Manager (MANNY) documentation: CHW kim call per KENNY Dye No answer, left VM for , Letty, requesting call back to CM Electronically signed by Inez Laureaon [facility] Senior Brand Manager at 08/17/2024 10:51 AM EST documented in this encounter Plan of Treatment Upcoming Encounters Date Type Department Care Team (Late st Contact Info) Description 09/06/2024 9:00 AM EST Rehab Services Voice Lab, [place] [address] [place] [address] Sofie Elizabeth, CCC-WARP STARTER [address] [place] [address] 09/06/2024 10:30 AM EST Office Visit Otolaryngology/Head & Neck/Facial Plastic Surgery [address] [place] [address] Jenn Gentile MD [address] [place] [address] 09/08/2024 1:40 PM EST Office Visit [facility] [address] [place] [address] Jayden Vasques MD [address] [place] [address] 10/12/2024 2:15 PM EDT Office Visit [facility] Eye [address] [address] Marta Moran MD [address] [place] [address] Flash Cortes Nurse [address] [place] [address] Jarred Corteser [address] [address] 10/18/2024 11:00 AM EDT Office Visit Audiology, [place] [address] [place] [address] Ariadne Ivey Au.D. [address] [place] [address] 10/18/2024 1:30 PM EDT Office Visit Otolaryngology/Head & Neck/Facial Plastic Surgery [address] [place] [address] Ollie Borja MD [address] [place] [address] Scheduled Procedures Name Priority Associated Diagnoses Date/Ti [...] encounter Medical Devices Implanted Type Area State Archivist Device Identifier Shelf Expiration Date Model / Serial / Lot [id number] - [id number] Implanted:Qty : 1 on 09/26/[address] [facility] Tissue - Human Right: Neck LIFE CELL MARIANO 10/17/2008 [id number] / / [id number] Description:alloderm 3x7cm Elect Nucleus Slim Str [id number] - [id number] Implanted:Qty : 1 on 12/21/2022 by Ollie Borja MD at OR [facility] Left: Ear [employer]LE[employer] 11/04/2024 [id number] / / [id number] Station Air Traffic Control Specialist Ves Gold 3.0 [id number] - [id number] Implanted:Qty : 1 on 07/10/2024 by Jenn Gentile MD at OR [facility] N/A: Neck SYNOVIS SURGICAL 09/01/2028 [id number] / / [id number] Set Puncture Provox Castillo [id number] - [id number] Implanted:Qty : 1 on 07/10/2024 by Jenn Gentile MD at OR [facility] N/A: [facility] [id number] 09/15/2026 [id number] / / [id number] documented as of this encounter Advance Directives [...] 1:38 PM 08/12/2007 5:16 PM Care Teams Electrician Third Relationship Specialty Start Date End Date Patricia Leal PA-C [address] [facility] [place] [address] PCP - General Physician Senior Brand Manager 07/26/24 documented as of this encounter
--- OUTSIDE RECORDS SUMMARY | 2024-09-13 19:53 | External Medical Summary | Summary of Care ---
Author Name Unknown Organization [facility] Address [address] [place] [place] [address] Phone [phone] Care Team Providers Care Laboratory Phlebotomist Name Role Phone MarinaPatricia ibanez Cornel REHMAN Primary Care Provider [phone] Reason for Visit * Reason Comments Voice Change Encounter Details Date Type Department Care Team (Late st Contact Info) Description 08/29/2024 11:00 AM EST Rehab Services Voice Lab [facility] [address] [place] [address] Blane Lares, [facility]-ASSOCIATE ATTORNEY [address] [place] [address] Voice disorder* Allergies Active Allergy Reactions Criticality Noted Date Comments Sulfamethoxazole-Trimethoprim Hives Medium 2016 Levofloxacin Rash Low 03/03/2017 Lisinopril 03/12/2021 Raises bp Nitrates, Organic 09/07/2000 Unconsciousness Sertraline Low 02/09/2019 Other reaction(s): NOSE BLEEDS Sulfamethoxazole Itching High 02/09/2019 Terazosin 12/08/2001 priaprism Trimethoprim Itching High 02/09/2019 documented as of this encounter (statuses as of 08/29/2024) Medications Acetaminophen 500 MG Oral Capsule Administer [...] Oral Tablet (Lipitor)Indicatio ns:Coronary artery disease involving [place] coronary artery of [place]ak heart without angina pectoris Take 1 Tablet [...] as of this encounter (statuses as of 08/29/2024) Active Problems Problem Noted Date Diagnosed Date Coronary artery disease invo lving [place] coronary artery of eyak heart without angina pectoris 10/25/2023 MRI contraindicated [...] as of this encounter (statuses as of 08/29/2024) Resolved Problems Problem Noted Date Diagnosed Date [...] 10/23/2008 02/16/2013 ACTIVE CASE MANAGEMENT-Yanet Landa Rn- [phone] 09/28/2007 02/16/2008 Malignant neoplasm soft tissue head [...] as of this encounter (statuses as of 08/29/2024) Immunizations Name Administration Dates Next Due COVID-19 mRNA, LNP-s, No Pre serve, 2-Dose Series (BirdDog) 02/18/2022,10/11/2020,09/13/2020 Pneumococcal Conjugate Vacc, 13 Valent (Prevnar) 10/26/2014 Pneumococcal Conjugate Vacci ne, 20-valent ([id number]) 04/10/2024 Pneumococcal Polysaccharide PPV23 (Pneumovax) 02/24/2016,04/19/2008 Rabies [...] in this encounter Progress Notes * Blane Lares, [facility]-ASSOCIATE ATTORNEY - 08/29/2024 12:58 PM EST CLINIC NOTES Voice Lab [address] [address] Rodney Canseco : 1945 08/29/2024 Second session follow-up with patient and . Tracheoesophageal speech had to concerns that she felt the prosthesis was loosening and wanted clarification as to the exact location to place the Emergency flexible red rubber catheter. First, I checked the prosthesis and it did not appear loose . There was slight leverage but was secure in place . Secondly, I showedthe the exact placement for the emergency flexible red rubber catheter . I also check a for water leakage either through or around the sides of the prosthesis and there were none . I removed the heat/moisture exchange system , as well as the laryngectomy tube (nonfenestrated). Attempts at phonation yielded breathy and occasionally intermittent hydrophonia with no appreciable tracheoesophageal sound . When I reassembled the heat moisture exchange system and the laryngectomy tube he generated less sound than described above . Work will continue in this area however I will be requesting that on his prosthesis change next week that attempts be made at determining type of sound production with the patient open track. I will reinitiate attempts at TEP speech with his new prosthesis in place Swallowing Oral mechanism examination revealed the patient having poor tongue mobility in any direction . consequently the use of the effortful swallow technique needed to be modified . this consisted of simplyhaving the patient trapped atmospheric air pressure in the oral cavity close his lips, tilt his head backwards and swallow . This technique cleared the oral cavity of any residue for the pureed food and thin liquid given . As noted above the patient will have his voice prosthesis change next week. I will see him on return visit for continued work on the above . Blane Lares CCC-ASSOCIATE ATTORNEY [facility] - [facility] 08/29/2024 12:58 PM documented in this encounter Plan of Treatment Upcoming Encounters Date Type Department Care Team (Late st Contact Info) Description 09/06/2024 9:00 AM EST [facility] [address] [place] [address] Sofie Elizabeth CCC-ASSOCIATE ATTORNEY [address] [place] [address] 09/06/2024 10:30 AM EST Office Visit Otolaryngology/Head & Neck/Facial Plastic Surgery [address] [place] [address] Jenn Gentile MD [address] [place] [address] 09/08/2024 1:40 PM EST Office Visit Nephrology, [facility] [address] [facility] [place] [address] Jayden Vasques MD 200 [facility] [place] [place] [address] 09/13/2024 11:00 AM EST Rehab Services Voice Lab [facility] 132 [place] [address] Blane Lares, CCC-ASSOCIATE ATTORNEY 132 [facility] [place] [address] 10/18/2024 11:00 AM EDT [facility] [address] [place] [address] Ariadne Ivey Au.D. [address] [place] [address] 10/18/2024 1:30 PM EDT Office Visit Otolaryngology/Head & Neck/Facial Plastic Surgery [address] [place] [address] Ollie Borja MD [address] [place] [address] Scheduled Procedures Name Priority Associated Diagnoses Date/Ti [...] this encounter Medical Devices Implanted Type Area Software Program Manager Device Identifier Shelf Expiration Date Model / Serial / Lot [id number] - [id number] Implanted:Qty : 1 on 09/26/2007 at OR [facility] [place] [facility] Tissue - Human Right: Neck LIFE CELL MARIANO 10/17/2008 [id number] / / [id number] Description:alloderm 3x7cm Elect Nucleus Slim Str [id number] - [id number] Implanted:Qty : 1 on 12/21/2022 by Ollie Borja MD at OR [facility] [place] [facility] Left: Ear [employer] 11/04/2024 [id number] / / [id number] Conference Center Coordinator Ves Gold 3.0 [id number] - [id number] Implanted:Qty : 1 on 07/10/2024 by Jenn Gentile MD at OR [facility] [place] N/A: Neck SYNOVIS SURGICAL 09/01/2028 [id number] / / [id number] Set Puncture Provox Castillo [id number] - [id number] Implanted:Qty : 1 on 07/10/2024 by Jenn Gentile MD at OR [facility] [place] N/A: Neck AT MEDICAL [id number] 09/15/2026 [id number] / / [id number] documented as of this encounter Visit Diagnoses Diagnosis 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
--- OUTSIDE RECORDS SUMMARY | 2024-09-13 19:53 | External Medical Summary | Summary of Care ---
Author Name Unknown Organization [facility] Address [address] [place] [address] Phone [phone] Care Team Providers Care Concrete Engineering Technician Name Role Phone Marinashamar Patricia Unger PA-C Primary Care Provider [phone] Reason for Visit * Reason Comments Medication Refill Encounter Details Date Type Department Care Team (Late st Contact Info) Description 08/07/2024 Refill Family Practice [facility] [address] [place] [address] Sanjiv Hart III, MD 200 [place] [address] Allergies Active Allergy Reactions Criticality Noted Date [...] Active OneTouch Ultra In Vitro Strip (Glucose Blood)Indications :Hypoglycemia [...] Oral Tablet (Lipitor)Indicati ons:Coronary artery disease involving [place] coronary artery of [place] heart without angina pectoris Take 1 Tablet [...] 4 10:29 AM EDT 01/19/20 24 Active Sennosides-Docusa te Sodium 8.6-50 MG [...] 07/26/2024 Citalopram Hydrobromide 20 MG Oral Tablet (CeleXA)Indicatio [...] meals 270 Tablet 3 08/07/19 25 Active Midodrine HCl 10 MG Oral Tablet (Proamatine) take 1 tablet by mouth three times daily with meals 270 Tablet 4 5:20 PM EDT 05/10/20 24 025 Disconti nued(Ref ill) Hospital, Clinic, or Other Facility Administered Medication Ordered Dose Route Frequency Start Date End Date Status Albuterol Sulfate (Proventil) (2.5 MG/3ML) 0.083% inhalation solution 2.5 mgIndications:Dyspnea, unspecified type 2.5 mg NEBULIZER PRN 02/27/2024 Active documented as of this encounter (statuses as of 08/07/2024) Active Problems Problem Noted Date Diagnosed Date Coronary artery disease invo lving [place] coronary artery of [place] heart without angina pectoris 10/25/2023 MRI contraindicated [...] 10/23/2008 02/16/2013 ACTIVE CASE MANAGEMENT-Yanet Landa Rn- [phone] 09/28/2007 02/16/2008 Malignant neoplasm soft tissue head [...] mRNA, LNP-s, No Pre serve, 2-Dose Series (KienVe) 02/18/2022,10/11/2020,09/13/2020 Pneumococcal Conjugate Vacc, 13 Valent (Prevnar) 10/26/2014 Pneumococcal Conjugate Vacci ne, 20-valent ([id number]) 04/10/2024 Pneumococcal Polysaccharide PPV23 (Pneumovax) 02/24/2016,04/19/2008 Rabies [...] No 02/18/2024 Does the household have a [facility] source of income? (Household - for ages [...] encounter Miscellaneous Notes * Telephone Encounter - Patricia Leal PA-C - 08/07/2024 6:32 PM ESTSigned Prescriptions: Disp Refills Midodrine HCl 10 MG Oral Tablet (Proamatin*270 Ta*3 Sig: take 1 tablet by mouth three times daily with meals Authorizing Provider: PATRICIA LEAL * Telephone Encounter - Mandy Barillas LPN - 08/07/2024 8:47 AM ESTPending Prescriptions: Disp Refills Midodrine HCl 10 MG Oral Tablet (Proamatin*270 Ta*3 Sig: take 1 tablet by mouth three times daily with meals * Telephone Encounter - Mandy Barillas LPN - 08/07/2024 8:47 AM EST Pending Prescriptions: Disp Refills Midodrine HCl 10 MG Oral Tablet (Proamati*270 Ta*0 Sig: take 1 tablet by mouth three times daily with meals Last Visit: 06/05/2024 (in office), 06/19/2021 (telemedicine) Next Visit: Visit date not found Last date the medication was ordered: 05/10/2024 Patient Active Problem List Diagnosis Dyslipidemia HTN, goal below 130/80 Gastroparesis Gastroesophageal reflux disease with esophagitis 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 (HCC) 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 History of radiation to head and neck region Senile nuclear cataract, bilateral Dry eyes, bilateral 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, moderate stage Moderate episode of recurrent major depressive disorder ([facility]) ANDREA (generalized anxiety disorder) Esophageal stenosis COPD, group C, by GOLD 2017 classification ([facility]) Acquired hypothyroidism Dry eye syndrome due to meibomian gland dysfunction 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 History of 2019 novel coronavirus disease (COVID-19) Malnutrition of moderate degree ([facility]) MRI contraindicated due to metal implant Coronary artery disease involving [place] coronary artery of [place] heart without angina pectoris Labs: Lab Results Component Value Date/Time CREATININE - [facility] 0.8 07/17/2024 06:29 AM CREATININE - [facility] 0.79 03/10/2021 12:00 AM CREATININE - [facility] 1.0 04/17/2020 11:31 AM CREATININE POCT - [facility] 1.1 06/13/2007 03:47 PM CREATININE, 24-HOUR URINE 0.97 04/11/2021 09:59 AM CREATININE, RANDOM URINE - [facility] 20 09/21/2023 09:22 AM Lab Results Component Value Date/Time POTASSIUM - [facility] 3.5 07/17/2024 06:29 AM POTASSIUM - [facility] 3.4 (L) 07/10/2024 01:39 PM POTASSIUM - [facility] 4.2 03/10/2021 12:00 AM POTASSIUM - [facility] 4.1 01/16/2020 09:56 AM POTASSIUM POCT - [facility] 3.8 06/13/2007 03:53 PM Lab Results Component Value Date/Time TSH - [facility] 1.49 07/30/2023 10:57 AM TSH - [facility] 0.50 01/16/2020 09:56 AM TSH - OUTSIDE LAB 1.870 03/06/2021 12:00 AM Lab Results Component Value Date/Time LDL CHOLESTEROL (CALCULATED) - [facility] 29 07/30/2023 10:57 AM LDL CHOLESTEROL (CALCULATED) - [facility] 63 02/10/2016 09:09 AM LDL CHOLESTEROL (CALCULATED) - [facility] 111 01/08/2011 07:46 AM LDL CHOLESTEROL (DIRECT MEASURE) - [facility] 76 08/14/2019 04:29 PM LDL CHOLESTEROL (DIRECT MEASURE) - [facility] NOT APPLICABLE 02/10/2016 09:09 AM LDL CHOLESTEROL (DIRECT MEASURE) - [facility] 118 01/08/2011 07:46 AM Lab Results Component Value Date/Time ALT - [facility] 17 09/02/2023 12:00 PM ALT - [facility] 24 01/16/2020 09:56 AM ALT-OUTSIDE LAB 26 12/03/2016 12:00 AM Hemoglobin AIC Results: Lab Results Component Value Date/Time HEMOGLOBIN A1C - [facility] 5.3 03/17/2024 10:46 AM HEMOGLOBIN A1C - [facility] 5.4 04/10/2021 09:07 AM HEMOGLOBIN A1C - [facility] 5.1 08/23/2018 09:04 AM HEMOGLOBIN A1C - [facility] 5.7 03/31/2007 12:04 PM HEMOGLOBIN A1C - [facility] 5.0 07/26/2003 12:04 PM * Telephone Encounter - Be Lombardi - 08/07/2024 5:19 AM ESTPending Prescriptions: Disp Refills Midodrine HCl 10 MG Oral Tablet (Proamatin*270 Ta*0 Sig: take 1tablet by mouth three times daily with meals documented in this encounter Plan of Treatment Upcoming Encounters Date Type Department Care Team (Late st Contact Info) Description 08/09/2024 11:00 AM EST Rehab Services Voice Lab [facility] 132 [facility] [place] [address] Blane Lares, CCC-CONTACT CENTER DIRECTOR [address] [place] [address] 09/06/2024 9:00 AM EST Rehab Services Voice [facility] [address] [place] [address] Sofie Elizabeth, CCC-CONTACT CENTER DIRECTOR [address] [place] [address] 09/06/2024 10:30 AM EST Office Visit Otolaryngology/Head & Neck/Facial Plastic Surgery [address] [place] [address] Jenn Gentile MD [address] [place] [address] 09/08/2024 1:40 PM EST Office Visit Nephrology, Amy Flores 200 [facility] [place] [address] Jayden Vasques MD [address] [place] [address] 10/12/2024 2:15 PM EDT Office Visit [facility] Eye [address] [address] Marta Moran MD [address] [place] [address] Flash Cortes Nurse [address] [place] [address] Photographer Sophia [address] [address] Scheduled Procedures Name Priority Associated Diagnoses Date/Ti [...] this encounter Medical Devices Implanted Type Area Quality Assurance Coach Device Identifier Shelf Expiration Date Model / Serial / Lot [id number] - [id number] Implanted:Qty : 1 on 09/26/2007 [place] [facility] [place] - Human Right: Neck LIFE CELL MARIANO 10/17/2008 [id number] / / [id number] Description:alloderm 3x7cm Elect Nucleus Slim Str [id number] - [id number] Implanted:Qty : 1 on 12/21/2022 by Ollie Borja MD [place] [facility] Left: Ear [employer] 11/04/2024 [id number] / / [id number] Marine Machinist Ves Gold 3.0 [id number] - [id number] Implanted:Qty : 1 on 07/10/2024 by Jenn Gentile MD [place] [facility] N/A: Neck SYNOVIS SURGICAL 09/01/2028 [id number] / / [id number] Set Puncture Provox Castillo [id number] - [id number] Implanted:Qty : 1 on 07/10/2024 by Jenn Gentile MD [place] [facility] N/A: Neck AT MEDICAL [id number] 09/15/2026 [id number] / / [id number] documented as of this encounter Advance Directives [...] 1:38 PM 08/12/2007 5:16 PM Care Teams Concrete Engineering Technician Relationship Specialty Start Date End Date Patricia Leal PA-C 200 [facility] [place] [address] PCP - General Physician Pail Bailer 07/26/24 documented as of this encounter
--- OUTSIDE RECORDS SUMMARY | 2024-09-13 19:54 | External Medical Summary | Summary of Care ---
Author Name Unknown Organization [facility] Address [address] [place] [address] Phone [phone] Care Team Providers Care Phlebotomy Program Coordinator Name Role Phone Marinashamar Patricia Unger PA-C Primary Care Provider [phone] Reason for Visit * Reason Comments Post-Op Encounter Details Date Type Department Care Team (Late st Contact Info) Description 07/26/2024 11:00 AM EST Office Visit Otolaryngology/Head & Neck/Facial Plastic Surgery [address] [place] [address] Jenn Gentile MD [address] [place] [address] History of head and neck cancer*; Oropharyngeal dysphagia; S/P laryngectomy; Voice disorder; History of radiation to head and neck region Allergies Active Allergy Reactions Criticality Noted Date Comments Sulfamethoxazole-Trimethoprim Hives Medium 2016 Levofloxacin Rash Low 03/03/2017 Lisinopril 03/12/2021 Raises bp Nitrates, Organic 09/07/2000 Unconsciousness Sertraline Low 02/09/2019 Other reaction(s): NOSE BLEEDS Sulfamethoxazole Itching High 02/09/2019 Terazosin 12/08/2001 priaprism Trimethoprim Itching High 02/09/2019 documented as of this encounter (statuses as of 08/02/2024) Medications Acetaminophen 500 MG Oral Capsule Administer [...] (HCC),COPD, group C, by GOLD 2017 classification ([facility]) Inhale 1 vial via nebulizer every 4 hours as needed for Shortness of Breath or Wheezing. 360 mL 3 4 5:12 PM EST 07/27/19 24 Active Latanoprost 0.005 % Ophthalmic Solution (Xalatan) Instill 1 Drop into both eyes every evening. 10 mL 3 4 9:30 AM EST 08/19/19 24 Active Atorvastatin Calcium 40 MG Oral Tablet (Lipitor)Indicatio ns:Coronary artery disease involving [place] coronary artery of [place] heart without angina pectoris Take 1 Tablet [...] three times daily with meals 270 Tablet 10/25/202 4 5:20 PM EDT 05/10/20 24 Active [...] as of this encounter (statuses as of 08/02/2024) Active Problems Problem Noted Date Diagnosed Date Coronary artery disease invo lving [place] coronary artery of [place] heart without angina pectoris 10/25/2023 MRI contraindicated [...] as of this encounter (statuses as of 08/02/2024) Resolved Problems Problem Noted Date Diagnosed Date [...] 10/23/2008 02/16/2013 ACTIVE CASE MANAGEMENT-Yanet Landa Rn- [phone] 09/28/2007 02/16/2008 Malignant neoplasm soft tissue head [...] as of this encounter (statuses as of 08/02/2024) Immunizations Name Administration Dates Next Due COVID-19 mRNA, LNP-s, No Pre serve, 2-Dose Series (SquareTrade) 02/18/2022,10/11/2020,09/13/2020 Pneumococcal Conjugate Vacc, 13 Valent (Prevnar) 10/26/2014 Pneumococcal Conjugate Vacci ne, 20-valent ([id number]) 04/10/2024 Pneumococcal Polysaccharide PPV23 (Pneumovax) 02/24/2016,04/19/2008 Rabies [...] Sign Reading Time Taken Comments Blood Pressure - - Pulse - - Temperature 36.7 C (98.1 F) 07/26/2024 9:49 AM ES T Respiratory Rate - - Oxygen Saturation - - Inhaled Oxygen Concentration - - Weight - - Height - - Body Mass Index - - documented in this encounter Functional Status * [...] documented in this encounter Progress Notes * Jenn Gentile MD - 08/01/2024 2:14 PM EST Images from the original note were not included. [facility] Otolaryngology - Head and Neck Surgery Post Op Note 08/01/2024 S: Pt follows up after functional laryngectomy. No issues since surgery. He just had a swallow study showing no leak. O: Temp 36.7 C (98.1 F) (Infrared ) Gen: NAD, AAO HEENT: Incision is c/d/I, leg is also c/d/I A/P: Rodney Canseco is a 79 year old male s/p functional laryngectomy with ALT onlay flap (07/11) - Pt started on diet. Seen by speech for his TEP. Wound care reviewed. RTC 2 months or PRN. Jenn Gentile MD, FACS Head & Neck Surgical Oncology, Microvascular Reconstruction, and Robotic Surgery documented in this encounter Plan of Treatment Upcoming Encounters Date Type Department Care Team (Late st Contact Info) Description 08/07/2024 11:00 AM EST Office Visit [facility] [place] [address] [facility] [place] [address] Sanjiv Hart III, MD [address] [place] [address] 08/09/2024 11:00 AM EST Rehab Services Voice Lab [facility] [address] [place] [address] Blane Lares, CCC-[facility] [address] [place] [address] 09/06/2024 9:00 AM EST Rehab Services Voice [facility] [address] [place] [address] Sofie Elizabeth, [facility] [address] [place] [address] 09/06/2024 10:30 AM EST Office Visit Otolaryngology/Head & Neck/Facial Plastic Surgery [address] [place] [address] Jenn Gentile MD [address] [place] [address] 09/08/2024 1:40 PM EST Office Visit Nephrology, [facility] [place] [address] [facility] [place] [address] Jayden Vasques MD [address] [place] [address] 10/12/2024 2:15 PM EDT Office Visit [facility] [address] [address] Marta Moran MD [address] [place] [address] [id number] Flash Cortes [address] [place] [address] Photographer Sophia [address] [address] Scheduled Procedures Name Priority Associated Diagnoses Date/Ti [...] this encounter Medical Devices Implanted Type Area Diesel Roller Operator Device Identifier Shelf Expiration Date Model / Serial / Lot [id number] - [id number] Implanted:Qty : 1 on 09/26/2007 at OR [facility] Tissue - Human Right: Neck LIFE CELL MARIANO 10/17/2008 [id number] / / [id number] Description:alloderm 3x7cm Elect Nucleus Slim Str [id number] - [id number] Implanted:Qty : 1 on 12/21/2022 by Ollie Borja MD at OR [facility] Left: Ear [employer] 11/04/2024 [id number] / / [id number] Vamp Maker Ves Gold 3.0 [id number] - [id number] Implanted:Qty : 1 on 07/10/2024 by Jenn Gentile MD at OR [facility] N/A: Neck [employer] 09/01/2028 [id number] / / [id number] Set Puncture Provox Castillo [id number] - [id number] Implanted:Qty : 1 on 07/10/2024 by Jenn Gentile MD at OR [facility] N/A: [facility]ck [facility] [id number] 09/15/2026 [id number] / / [id number] documented as of this encounter Visit Diagnoses Diagnosis History of head and neck cancer- Primary Oropharyngeal dysphagia Dysphagia, oropharyngeal phase S/P laryngectomy Other postprocedural status Voice disorder Voice and resonance disorder, unspecified History of radiation to head and neck region documented in this encounter Advance Directives * [...] 1:38 PM 08/12/2007 5:16 PM Care Teams Phlebotomy Program Coordinator Relationship Specialty Start Date End Date Mel Patricia ORI Unger [address] [place] [address] PCP - General Physician Armorer Technician 07/26/24 documented as of this encounter
[2024-09-13] MEDS: LATANOPROST 0.005% OP SOLN 2.5 ML BTL OPB SCH (20:08)
--- OUTSIDE RECORDS SUMMARY | 2024-09-14 03:49 | External Medical Summary | Summary of Care ---
Author Name Unknown Organization [facility] Address [address] [place] [facility] [place] [address] Phone [phone] Care Team Providers Care Habilitation Specialist Name Role Phone MarinaPatricia ibanez Cornel REHMAN Primary Care Provider [phone] Reason for Visit * Reason Onset Date Comments Advice 09/13/2024 Encounter Details Date Type Department Care Team (Late st Contact Info) Description 09/13/2024 Telephone Nephrology, Kely Tanner [address] [facility] [place] [address] Jayden Vasques MD [address] [facility] [place] [address] Advice Allergies Active Allergy Reactions Criticality Noted [...] Additional Information Patient not taking.Reported on 09/08/2024 Liquidations Enc[employer] Ultra In Vitro Strip (Glucose Blood)Indications: Hypoglycemia [...] Oral Tablet (Lipitor)Indicatio ns:Coronary artery disease involving [place] coronary artery of eagle heart without angina pectoris Take 1 Tablet [...] Diagnosed Date Coronary artery disease invo lving [place] coronary artery of eagle heart without angina pectoris 10/25/2023 MRI contraindicated [...] 10/23/2008 02/16/2013 ACTIVE CASE MANAGEMENT-Yanet Landa Rn- [phone] 09/28/2007 02/16/2008 Malignant neoplasm soft tissue head [...] mRNA, LNP-s, No Pre serve, 2-Dose Series (Flit) 02/18/2022,10/11/2020,09/13/2020 PPD 08/09/2002 Pneumococcal Conjugate Vacc, 13 Valent (Prevnar) 10/26/2014 Pneumococcal Conjugate Vacci ne, 20-valent ([id number]) 04/10/2024 Pneumococcal Polysaccharide PPV23 (Pneumovax) 02/24/2016,04/19/2008 Rabies [...] Miscellaneous Notes * Telephone Encounter - La Bueno RN - 09/13/2024 12:35 PM EST Came to [facility] today asking to be seen by Dr Vasques. Dr Vasques advising per message that he sees Urology urgently. Per notes,pt was seen by FP nurse and sent to ER via ambulance per October. * Telephone Encounter - Jayden Vasques MD [...] as soon as possible. Please call at [phone]. I did attempt to transfer but don't believe office is open yet. documented in this encounter Plan of Treatment Upcoming Encounters Date Type Department Care Team (Late st Contact Info) Description 10/18/2024 11:00 AM EDT Office Visit Audiology, [place] [address] [place] [address] Ariadne Ivey Au.D. [address] [place] [address] 10/18/2024 1:30 PM EDT Office Visit Otolaryngology/Head & Neck/Facial Plastic Surgery [address] [place] [address] Ollie Borja MD [address] [place] [address] 10/31/2024 2:30 PM EDT Rehab Services Voice Lab, [place] [address] [place] [address] Sofie Elizabeth, [facility] ENCODING OPERATIONS SUPERVISOR [address] [place] [address] 01/02/2025 1:00 PM EDT Office Visit Otolaryngology/Head & Neck/Facial Plastic Surgery [address] [place] [address] Jenn Gentile MD [address] [place] [address] 09/10/2025 2:20 PM EST Office Visit Nephrology, Kely Tanner [address] [facility] [address] Jayden Vasques MD [address] [facility] [address] [place] [address] Scheduled Procedures Name Priority Associated Diagnoses Date/Ti [...] this encounter Medical Devices Implanted Type Area Sales Representative Printing Device Identifier Shelf Expiration Date Model / Serial / Lot [id number] - [id number] Implanted:Qty : 1 on 09/26/2007 at OR [facility] Tissue - Human Right: Neck LIFE C[employer] 10/17/2008 [id number] / / [id number] Description:alloderm 3x7cm Elect Nucleus Slim Str [id number] - [id number] Implanted:Qty : 1 on 12/21/2022 by Ollie Borja MD at OR [facility] Left: Ear [employer] 11/04/2024 [id number] / / [id number] District Adviser Ves Gold 3.0 [id number] - [id number] Implanted:Qty : 1 on 07/10/2024 by Jenn Gentile MD at OR [facility] N/A: Neck [employer] 09/01/2028 [id number] / / [id number] Set Puncture Provox Castillo [id number] - [id number] Implanted:Qty : 1 on 07/10/2024 by Jenn Gentile MD at OR [facility] N/A: Neck [employer] [id number] 09/15/2026 [id number] / / [id number] documented as of this encounter Advance Directives [...] 1:38 PM 08/12/2007 5:16 PM Care Teams Habilitation Specialist Relationship Specialty Start Date End Date Patricia Leal PA-C [address] [facility] [place] [address] PCP - General Physician Box Blank Machine Operator Helper 07/26/24 documented as of this encounter
[2024-09-14] MEDS: LEVOTHYROXINE SODIUM 88 MCG TABLET GT SCH (05:42)
[2024-09-14 06:23] LABS: Basophils # (auto) 0.04 K/uL (0.00-0.20); Basophils % (auto) 0.8 %; Eosinophils # (auto) 0.24 K/uL (0.00-0.50); Hematocrit (blood only) 36.4 % (42.0-52.0); Hemoglobin 11.9 g/dl (14.0-18.0); Immature Granulocytes # (auto) 0.02 K/uL (0.01-0.20); Immature Granulocytes % (auto) 0.4 %; Lymphocytes # (auto) 0.64 K/uL (1.20-3.40); Lymphocytes % (auto) 13.4 %; Mean Corpuscular Hemoglobin 31.2 pg (25.0-34.0); Mean Corpuscular Hgb Conc 32.7 g/dL (32.0-36.0); Mean Corpuscular Volume 95.5 fL (80.0-100.0); Mean Platelet Volume 10.9 fL (9.4-12.4); Monocytes # (auto) 0.52 K/uL (0.11-0.59); Monocytes % (auto) 10.9 %; Neutrophils # (auto) 3.33 K/uL (1.40-6.50); Neutrophils % (auto) 69.5 %; Platelet Count 149 K/uL (130-400); RDW Coefficient of Variation 14.7 % (11.5-14.5); RDW Standard Deviation 52.1 fL (36.4-46.3); Red Blood Count 3.81 M/uL (4.70-6.10); White Blood Count 4.79 K/ul (4.8-10.8)
[2024-09-14 06:38] LABS: Albumin Globulin Ratio 1.1 (0.9-2); Albumin Level 3.4 gm/dl (3.4-5.0); Bilirubin,Total 0.9 mg/dl (0.2-1.0); Calcium 8.6 mg/dl (8.6-10.3); Creatinine Clr Calc Pharmacy 61.9 ml/min; Globulin 3.2 gm/dl (2.5-4.0); Magnesium 2.1 mg/dl (1.7-2.4); Potassium 3.6 mmol/L (3.5-5.1); Total Protein 6.6 gm/dl (6.0-8.3)
[2024-09-14] MEDS: ADVANCED PROBIOTIC 625 MG CAPSULE PO SCH (08:19)
[2024-09-14] MEDS: CITALOPRAM 20 MG TAB GT SCH (08:19)
[2024-09-14] MEDS: ATORVASTATIN 40 MG TAB GT SCH (08:19)
[2024-09-14] MEDS: ACETAMINOPHEN 325 MG TAB PO PRN (16:22)
[2024-09-14] MEDS: POLYETHYLENE (MIRALAX) 17 GM PACK PO PRN (16:22)
--- NOTE | 2024-09-14 17:12 | Hospitalist Progress Note ---
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 Pt underwent Endscopy at [facility] on 09/12. Post operatively pt was hypotensive requiring IVF. After discharge and return home he had severe abdominal pain so they presented to ED at [facility]. Pt was found to have urinary retention and a chavez catheter was placed. 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 CT scan report provided by . Unable to access images at this time. 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 to head and neck region, s/p PEG tube placement #Total laryngectomy 06/[address] with capped trach in place pt started on oral feedings, soft diet is working with outpt ENT/Speech therapy continue FW G tube flushes consult painter as states pt lost 10lbs since surgery #Orthostatic Hypotension: continue midodrine, discontinue tamsulosin #Elevated trop: suspect in setting of hypotension earlier today, no ecg changes and no reports of CP, will cycle for completeness DVT ppx: SCDS for now in setting of reported hematuria FULL CODE PCP: Tanner Admission and Anticipated Discharge Date Admission Date: September 13, 2024 Subjective Reports feeling much improved today endorses a "whoozy" feeling in his head, but otherwise no other concerns Physical Exam Constitutional: WD/WN, vitals as above Respiratory: normal respiratory effort, lungs clear to auscultation Cardiovascular: RRR, no murmur, no edema Results & Data Results & Data Vital Signs (Past 12 Hours) Vital Signs Temp Pulse Pulse Resp BP BP Pulse Ox 09/14/24 15:54 36.7 C 55 L 18 127/73 95 09/14/24 15:11 68 09/14/24 11:37 37 C 60 20 121/71 98 09/14/24 10:15 09/14/24 08:00 36.5 C 61 18 118/72 97 09/14/24 07:22 62 O2 Del Method 09/14/24 15:54 Room Air 09/14/24 15:11 09/14/24 11:37 Room Air 09/14/24 10:15 Room Air, Trach Collar 09/14/24 08:00 Room Air 09/14/24 07:22 Laboratory Results Short CBC 09/14/24 Range/Units 05:47 WBC 4.79 L (4.8-10.8) K/ul Hgb 11.9 L (14.0-18.0) g/dl Hct 36.4 L (42.0-52.0) % Plt Count 149 (130-400) K/uL BMP 09/14/24 05:47 Sodium 139 Potassium 3.6 Chloride 105 Carbon Dioxide 29 BUN 16 Creatinine 1.00 Glucose 100 H Calcium 8.6 Liver Function 09/14/24 Range/Units 05:47 Total Bilirubin 0.9 (0.2-1.0) mg/dl AST 15 (13-39) U/L ALT 12 (7-52) U/L Alkaline Phosphatase 74 (34-104) U/L Albumin 3.4 (3.4-5.0) gm/dl Medications Administered Home Medications Medication Instructions Recorded Confirmed Last Taken citalopram 20 mg tablet 20 mg feeding tube QAM 05/07/18 09/13/24 02/23/24 food supplemt, lactose-reduced 2 can feeding tube TID 05/07/18 09/13/24 02/23/24 (Nutritional Drink oral liquid) latanoprost 0.005 % eye drops 1 drp OPB HS 01/30/19 09/13/24 02/22/24 acetaminophen 500 mg tablet 1,000 mg feeding tube Q6H PRN Pain 03/06/21 09/13/24 10/10/22 (Tylenol Extra Strength) levothyroxine 88 mcg tablet 88 mcg feeding tube QAM 04/06/21 09/13/24 02/23/24 (Euthyrox) atorvastatin 40 mg tablet 40 mg feeding tube QAM 06/02/21 09/13/24 02/23/24 albuterol sulfate 1.25 mg/3 mL 1.25 mg inhalation Q4H PRN 06/03/23 09/13/24 Unknown solution for nebulization Shortness Of Breath Or Wheezing sennosides 8.6 mg-docusate sodium 1 tab PEG QAM PRN constipation #30 02/28/24 09/13/24 Unknown 50 mg tablet (Senokot-S) tabs midodrine 10 mg tablet 10 mg feeding tube TIDM PRN 09/13/24 09/13/24 Unknown Hypotension Active Medications Generic Name Dose Route Start Last Admin Trade Name Freq PRN Reason Stop Dose Admin Acetaminophen 650 mg 09/13/24 16:06 09/14/24 16:22 Acetaminophen 325 Mg Tab PO 10/13/24 16:05 650 mg Q4H PRN Administration Pain or Fever Atorvastatin Calcium 40 mg 09/14/24 09:00 09/14/24 08:19 Atorvastatin 40 Mg Tab GT 10/14/24 08:59 40 mg QAM GIRISH Administration Citalopram Hydrobromide 20 mg 09/14/24 09:00 09/14/24 08:19 Citalopram 20 Mg Tab GT 10/14/24 08:59 20 mg QAM GIRISH Administration Piperacillin Sod/Tazobactam Sod 4.5 gm in 100 mls @ 25 mls/hr 09/13/24 17:00 09/14/24 16:22 Zosyn IV 09/23/24 16:59 25 mls/hr Q8H GIRISH Administration Protocol Lactobacillus Acidophilus 1,250 mg 09/14/24 09:00 09/14/24 08:19 Advanced Probiotic 625 Mg Capsule PO 10/14/24 08:59 1,250 mg DAILY GIRISH Administration Latanoprost 1 drops 09/13/24 21:00 09/13/24 20:08 Latanoprost 0.005% Op Soln 2.5 Ml Btl OPB 10/13/24 20:59 1 drops HS GIRISH Administration Levothyroxine Sodium 88 mcg 09/14/24 06:30 09/14/24 05:42 Levothyroxine Sodium 88 Mcg Tablet GT 10/14/24 06:29 88 mcg DAILYBB GIRISH Administration Polyethylene Glycol 17 gm 09/13/24 16:06 09/14/24 16:22 Polyethylene (Miralax) 17 Gm Pack PO 10/13/24 16:05 17 gm DAILY PRN Administration Constipation Sterile Water 250 ml 09/13/24 16:06 09/14/24 16:22 Tube Feeding Water Flush GT 10/13/24 16:05 Not Given Q4 GIRISH
[2024-09-15 07:24] LABS: Hematocrit (blood only) 35.7 % (42.0-52.0); Hemoglobin 11.9 g/dl (14.0-18.0); Mean Corpuscular Hemoglobin 31.9 pg (25.0-34.0); Mean Corpuscular Hgb Conc 33.3 g/dL (32.0-36.0); Mean Corpuscular Volume 95.7 fL (80.0-100.0); Mean Platelet Volume 11.1 fL (9.4-12.4); Platelet Count 156 K/uL (130-400); RDW Coefficient of Variation 14.6 % (11.5-14.5); RDW Standard Deviation 51.4 fL (36.4-46.3); Red Blood Count 3.73 M/uL (4.70-6.10); White Blood Count 4.92 K/ul (4.8-10.8)
[2024-09-15 07:42] LABS: BUN Creatinine Ratio 17.4 (10-20); Calcium 8.6 mg/dl (8.6-10.3); Creatinine Clr Calc Pharmacy 67.2 ml/min; Potassium 3.5 mmol/L (3.5-5.1)
--- NOTE | 2024-09-15 17:08 | Hospitalist Progress Note ---
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 Pt underwent Endscopy at [facility] on 09/12. Post operatively pt was hypotensive requiring IVF. After discharge and return home he had severe abdominal pain so they presented to ED at [facility]. Pt was found to have urinary retention and a chavez catheter was placed. 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 CT scan report provided by . Unable to access images at this time. Patient doing well overall. 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/radiation to head and neck region, s/p PEG tube placement #Total laryngectomy 06/[address]ach in place pt started on oral feedings, soft diet is working with outpt ENT/Speech therapy continue FW G tube flushes consult spice fumigator as states pt lost 10lbs since surgery sputum culture with strep agalactiae #Orthostatic Hypotension: continue midodrine, discontinue tamsulosin #Elevated trop: suspect in setting of hypotension earlier today, no ecg changes and no reports of CP, will cycle for completeness DVT ppx: SCDS for now in setting of reported hematuria FULL CODE PCP: Tanner Admission and Anticipated Discharge Date Admission Date: September 13, [address] no acute concerns, reports no new symptoms awaiting final cultures Physical Exam Constitutional: thin, chronically ill gentleman Respiratory: normal respiratory effort, lungs clear to auscultation Cardiovascular: RRR, no murmur, no edema Results & Data Results & Data Vital Signs (Past 12 Hours) Vital Signs Temp Pulse Pulse Resp BP Pulse Ox Pulse Ox 09/15/24 16:05 36.7 C 55 L 16 112/67 98 09/15/24 16:00 96 09/15/24 14:01 61 09/15/24 12:00 96 09/15/24 11:50 36.6 C 64 16 143/64 H 98 09/15/24 10:42 09/15/24 08:00 36.4 C L 61 16 122/64 96 09/15/24 07:12 65 O2 Del Method O2 Del Method 09/15/24 16:05 Room Air 09/15/24 16:00 Room Air 09/15/24 14:01 09/15/24 12:00 Room Air 09/15/24 11:50 Room Air 09/15/24 10:42 Room Air 09/15/24 08:00 Room Air 09/15/24 07:12 Laboratory Results Short CBC 09/15/24 Range/Units 06:48 WBC 4.92 (4.8-10.8) K/ul Hgb 11.9 L (14.0-18.0) g/dl Hct 35.7 L (42.0-52.0) % Plt Count 156 (130-400) K/uL BMP 09/15/24 06:48 Sodium 140 Potassium 3.5 Chloride 105 Carbon Dioxide 30 BUN 16 Creatinine 0.92 Glucose 93 Calcium 8.6 Medications Administered Home Medications Medication Instructions Recorded Confirmed Last Taken citalopram 20 mg tablet 20 mg feeding tube QAM 05/07/18 09/13/24 02/23/24 food supplemt, lactose-reduced 2 can feeding tube TID 05/07/18 09/13/24 02/23/24 (Nutritional Drink oral liquid) latanoprost 0.005 % eye drops 1 drp OPB HS 01/30/19 09/13/24 02/22/24 acetaminophen 500 mg tablet 1,000 mg feeding tube Q6H PRN Pain 03/06/21 09/13/24 10/10/22 (Tylenol Extra Strength) levothyroxine 88 mcg tablet 88 mcg feeding tube QAM 04/06/21 09/13/2424 (Euthyrox) atorvastatin 40 mg tablet 40 mg feeding tube QAM 06/02/21 09/13/24 02/23/24 albuterol sulfate 1.25 mg/3 mL 1.25 mg inhalation Q4H PRN 06/03/23 09/13/24 Unknown solution for nebulization Shortness Of Breath Or Wheezing sennosides 8.6 mg-docusate sodium 1 tab PEG QAM PRN constipation #30 02/28/24 09/13/24 Unknown 50 mg tablet (Senokot-S) tabs midodrine 10 mg tablet 10 mg feeding tube TIDM PRN 09/13/24 09/13/24 Unknown Hypotension Active Medications Generic Name Dose Route Start Last Admin Trade Name Freq PRN Reason Stop Dose Admin Acetaminophen 650 mg 09/13/24 16:06 09/14/24 16:22 Acetaminophen 325 Mg Tab PO 10/13/24 16:05 650 mg Q4H PRN Administration Pain or Fever Atorvastatin Calcium 40 mg 09/14/24 09:00 09/15/24 10:11 Atorvastatin 40 Mg Tab GT 10/14/24 08:59 40 mg QAM GIRISH Administration Citalopram Hydrobromide 20 mg 09/14/24 09:00 09/15/24 10:11 Citalopram 20 Mg Tab GT 10/14/24 08:59 20 mg QAM GIRISH Administration Piperacillin Sod/Tazobactam Sod 4.5 gm in 100 mls @ 25 mls/hr 09/13/24 17:00 09/15/24 14:18 Zosyn IV 09/23/24 16:59 Infused Q8H GIRISH Infusion Protocol Lactobacillus Acidophilus 1,250 mg 09/14/24 09:00 09/15/24 10:11 Advanced Probiotic 625 Mg Capsule PO 10/14/24 08:59 1,250 mg DAILY GIRISH Administration Latanoprost 1 drops 09/13/24 21:00 09/14/24 20:14 Latanoprost 0.005% Op Soln 2.5 Ml Btl OPB 10/13/24 20:59 1 drops HS GIRISH Administration Levothyroxine Sodium 88 mcg 09/14/24 06:30 09/15/24 06:04 Levothyroxine Sodium 88 Mcg Tablet GT 10/14/24 06:29 88 mcg DAILYBB GIRISH Administration Polyethylene Glycol 17 gm 09/13/24 16:06 09/14/24 16:22 Polyethylene (Miralax) 17 Gm Pack PO 10/13/24 16:05 17 gm DAILY PRN Administration Constipation Sterile Water 250 ml 09/13/24 16:06 09/15/24 13:03 Tube Feeding Water Flush GT 10/13/24 16:05 250 ml Q4 GIRISH Administration
[2024-09-15 19:55] VITALS: RESP 18
--- NOTE | 2024-09-15 23:17 | Electrocardiogram Report ---
Test Reason : Blood Pressure : */* mmHG Vent. Rate : 56 BPM Atrial Rate : 56 BPM P-R Int : 146 ms QRS Dur : 90 ms QT Int : 460 ms P-R-T Axes : 15 -32 33 degrees QTcB Int : 443 ms Sinus bradycardia Left axis deviation Abnormal ECG When compared with ECG of 08-Apr-2024 02:47, No significant change was found Confirmed by Ian Álvarez ([id number]) on 09/15/2024 11:16:53 PM Referred By: Confirmed By: Ian Álvarez
[2024-09-16] MEDS: guaiFENesin/DEXTROM SYRUP 100MG/10MG 5ML UDC PO PRN (00:03)
[2024-09-16 07:47] VITALS: BP 162/80; TEMP 98.1; O2SAT 98
--- NOTE | 2024-09-16 09:48 | Discharge Summary ---
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 Pt underwent Endscopy at [facility] on 09/12. Post operatively pt was hypotensive requiring IVF. After discharge and return home he had severe abdomin al pain so they presented to ED at [facility]. Pt was found to have urinary retention and a chavez catheter was placed. 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 CT scan report provided by . Unable to access images at this time. Trach collection with strep agalactiae, urine culture negative here and at [facility]; however, given concern, plan for course of augmentin and follow up with Urology for further void trial and follow up On day of discharge, patient was ambulating and reports feeling well overall. Denies any acute concerns. 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 of neck/radiation to head and neck region, s/p PEG tube placement #Total laryngectomy 06/[address] in [address] pt started on oral feedings, soft diet is working with outpt ENT/Speech therapy continue FW G tube flushes consult 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 as states pt lost 10lbs since surgery sputum culture with strep agalactiae #Orthostatic Hypotension: continue midodrine, discontinue tamsulosin #Elevated trop: suspect in setting of hypotension earlier today, no ecg changes and no reports of CP, will cycle for completeness Notes For Next Care Provider Medication Changes From Visit augmentin BID x 7 days discontinue tamsulosin Admission HPI Per Admitting Provider Patient is 79 year old male with PMH CAD, HTN, dyslipidemia, COPD, 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 Hx obtained from outpt chart review and at bedside and pt has difficulty speaking with trach. Of significance pt underwent an Upper GI on 09/12/24 which was notable for Radiation changes in the posterior oropharynx, normal esophagus, gastric tube found in the stomach, normal examined duodenum. It is suspected patient's dysphagia secondary to postsurgical and radiation changes in the oropharynx. It is recommended patient undergo speech and swallow evaluation. Post operatively pt was hypotensive requiring IVF. After they returned home from the procedure patient developed significant abdominal pain. Due to the pain they presented to our ER and unfortunately due to significant wait time they opted to leave and go to [facility]. There he was found to have significant urinary retention and a Chavez catheter was placed. He has never had to have anything like this before. He underwent a CT scan of abdomen pelvis which was concerning for acute cystitis with concern for early ascending bilateral pyelonephritis. He was given a dose of oral tamsulosin and provided a prescription. He was not started on any antibiotics and he was discharged home. This morning upon awakening noted the patient had significant dark/rust colored urine and was concerned for blood. They presented to PCP clinic and referred to ED due to concern regarding Chavez catheter as well as patient was noted to be hypotensive. In ED after receiving IV fluid patient is doing much better. otherwise denies any recent illness, fever, chills, sweats, chest pain, shortness of breath, nausea, vomiting or abdominal pain. He continues to have a G-tube in place, but says ever since his surgery in June he has been able to eat soft foods. On July 10, 2024 he underwent a total laryngectomy and currently has a capped trach in place. Since then his speaking has been very limited. They are trialing him on oral intake to determine if he is able to sustain a nutrition. Unfortunately states that he has lost approximately 10 pounds in the last 2 months. Admission Exam Per Admitting Provider Constitutional: Thin, Fraile, M, alert, unable to speak due to trach, vitals as above, NAD, sitting up in bed Head: Normocephalic, Atraumatic Eyes: PERRL, conjunctivae normal, anicteric sclerae ENMT: external ear and nose normal, oropharynx dry membranes Neck: +Trach capped Respiratory: normal respiratory effort, lungs clear to auscultation, no wheeze, rales, rhonchi. Normal insp/exp effort, no accessory muscle use Cardiovascular: RRR, no murmur, no edema Vessels: no JVD or carotid bruit Chest: normal inspection of chest Abdomen: normal bowel sounds, soft, nontender, no hepatosplenomegaly +Gtube Musculoskeletal: no cyanosis or clubbing, AROM x 4 Skin: no rashes, warm and dry normal turgor Neurologic: no face palsy, no dysarthria CN's II-XI intact bilaterally and moves all extremities Psychiatric: Alert, euthymic affect Lymphatic: no cervical or axillary lymphadenopathy : +chavez draining yellow urine Discharge Exam Constitutional WD/WN, vitals as above Neck trach in place with no mucous plugging Respiratory diminished respirations Cardiovascular RRR, no murmur, no edema Updated Medication List Medication Instructions Recorded Confirmed Type citalopram 20 mg tablet 20 mg feeding tube QAM 05/07/18 09/13/24 History food supplemt, lactose-reduced 2 can feeding tube TID 05/07/18 09/13/24 History (Nutritional Drink oral liquid) latanoprost 0.005 % eye drops 1 drp OPB HS 01/30/19 09/13/24 History acetaminophen 500 mg tablet 1,000 mg feeding tube Q6H PRN Pain 03/06/21 09/13/24 History (Tylenol Extra Strength) levothyroxine 88 mcg tablet 88 mcg feeding tube QAM 04/06/21 09/13/24 History (Euthyrox) atorvastatin 40 mg tablet 40 mg feeding tube QAM 06/02/21 09/13/24 History albuterol sulfate 1.25 mg/3 mL 1.25 mg inhalation Q4H PRN 06/03/23 09/13/24 History solution for nebulization Shortness Of Breath Or Wheezing sennosides 8.6 mg-docusate sodium 1 tab PEG QAM PRN constipation #30 02/28/24 09/13/24 Rx 50 mg tablet (Senokot-S) tabs midodrine 10 mg tablet 10 mg feeding tube TIDM PRN 09/13/24 09/13/24 History Hypotension amoxicillin 875 mg-potassium 1 tab PO BID #13 tabs 09/16/24 Rx clavulanate 125 mg tablet Hospital Stay Data Consultations 09/13/24 13:06 ED Decision to Admit Stat 09/13/24 14:30 Consult Urology Routine 09/13/24 14:47 HIM [Consult Health Information Management] Routine Pending Results Patient Have Any Pending Studies at Discharge: No Discharge Instructions Given to Patient (Per Discharging Provider) You were admitted for urinary retention and blood in urine. Your CT from [facility] was concerning for questionable infection with urine concerning as well. You will keep a chavez for 1 week You will stop Tamsulosin for now You will need follow up with Urology in 1 week , you will be called and this will be coordinated for you for a void trial You will complete a 7 day course of augmentin Total Time Total Time Spent Total Time Spent (In Minutes): 35
[2024-09-16 10:23] VITALS: PULSE 59
== END 2024-09-16 10:46 | disposition home or self-care (01) | DRG 690 ==
LOC: ED 11:41 → 2W 13:35 → SUATTDRO 13:35 → 2W 14:11

== ENCOUNTER 2025-02-08 03:39 | Inpatient (IN) ==
--- NOTE | 2025-02-08 04:25 | Emergency Department Note ---
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 On arrival the patient is in no acute distress, febrile 38.0 with vital signs otherwise stable. He exhibits thick airway secretions with wheezing rhonchi of bilateral lower lung chow with normal respiratory effort. EKG without overt acute ischemia. CXR suspicious for right basilar densities per my personal preliminary review/interpretation. Lungs better characterized on CT imaging subsequently WBC and platelets within normal limits. H/H similar to prior range of values. Chemistry without metabolic acidosis with bicarbonate of 25. Initial lactic acid 2.4. LFTs unremarkable. High-sensitivity troponin 10.8, within normal limits. Lipase is not elevated. VBG with pH of 7.51 and pCO2 of 34. Treatment initiated with Solu-Medrol, DuoNeb and IV Zosyn following obtaining a blood cultures. However, shortly after initiating IV Zosyn patient did develop severe allergic reaction with diffuse blanchable erythema and pruritus and subsequently developed hypotension consistent with acute anaphylactic reaction. Patient was treated with 0.3 mg of IM epinephrine as well as additional IV fluids and IV diphenhydramine and famotidine. Patient's symptoms rapidly stabilized and patient became normotensive. He was complaining of headache and paresthesias of the right upper extremity subsequently. Thus CT imaging was obtained of the head and chest as well as abdomen pelvis obtained. CT of the head negative for acute abnormalities. CT of the chest suspicious for right basilar pneumonia. Negative for PE. CT abdomen pelvis with bladder wall thickening however UA without convincing evidence of infection. While the patient did receive Zosyn on most recent admission in December suspect this may have been the trigger for anaphylaxis. The patient did receive a 7-day course of ertapenem and likely to be tolerated well and so this was administered for treatment of pneumonia. Case was discussed with Morro Garcia, with [facility] who will evaluate the patient for admission. Further management per admitting team. Triage Nursing notes reviewed and agree them. Prior/external medical records reviewed Vital Signs: reviewed Differential diagnosis: Reactive airway disease, pneumonia, pneumothorax, COPD, CHF, infections, cardiac ischemia, pulmonary embolism, musculoskeletal, gastrointestinal, as well as other pathologies. ER treatment provided: See below. Diagnostics interpreted by me: ECG: Normal sinus rhythm, 64 bpm, no ectopy, left anterior fascicular block, no overt ST ovation or depression, QTc 455, QRS 88 Cardiac Monitoring: An order for continuous cardiac monitoring was placed and demonstrated normal sinus rhythm, 64 bpm, no ectopy Laboratory studies: See below Imaging studies: See below Consultation(s): Case was discussed with Morro Garcia, [facility] who will evaluate the patient for admission. HPI: Per MDM. ROS: See above HPI for pertinent positives & negatives. A total of 10 systems reviewed and were otherwise negative. VITALS:See Below PHYSICAL EXAMINATION: GENERAL: Awake, alert, chronically ill/cachectic-appearing, in no distress HENT: Normocephalic, atraumatic. Oropharynx with dry mucous membranes and otherwise unremarkable. EYES: Normal conjunctiva. Sclera non-icteric. NECK: Supple. No nuchal rigidity. FROM. No JVD. Tracheostomy present with thick yellow secretions. RESPIRATORY: Wheezes and rhonchi bilateral lower lung chow with normal respiratory effort CARDIAC: Regular rate, normal rhythm. Extremities warm and well perfused. Pulses equal. ABDOMEN: Soft, non-distended. No tenderness to palpation. No rebound or guarding. No masses. MUSCULOSKELETAL: Chest examination reveals no tenderness. The back is symmetrical on inspection without obvious abnormality. There is no CVA tenderness to palpation. No joint edema. LOWER EXTREMITIES: Calves are equal size bilaterally and non-tender. No edema. No discoloration. NEURO: Normal sensorium. No sensory or motor deficits noted. SKIN: No rash or jaundice noted. ED COURSE: Critical Care: I have personally spent greater than 35 minutes of critical care time in the direct management of this patient. This includes bedside care, interpretation of diagnostic studies, and testing, discussion with consultants, patient, and family members, and other required patient management activities. This 35 minutes is in excess of all separately billable procedures. Savage Alexander MD Past Med/Surg History Problem List Productive cough Anaphylaxis due to antibacterial agent Anaphylaxis (Acute) Tracheostomy present (Acute) Pneumonia (Acute) SOB (shortness of breath) Aspiration into airway (Acute) Chest pain (Acute) Acute hypoxic respiratory failure (Acute) Acute dyspnea (Acute) Urinary retention Weight loss Recurrent aspiration pneumonia Pneumonia (Acute) On tube feeding diet Tonsil carcinoma (Unknown) RADIATION AND CHEMO Lab test negative for COVID-19 virus (Acute) COPD exacerbation (Acute) Hypoxemia (Acute) Hypokalemia (Acute) COVID-19 (Acute) Elevated lactic acid level (Acute) Cough (Acute) Hypotension (Acute) Chronic orthostatic hypotension COVID-19 (Acute) Head injury, closed, with brief LOC (Acute) Respiratory syncytial virus (RSV) infection (Acute) Acute respiratory failure with hypoxia (Acute) Bronchopneumonia Encounter for pre-operative examination Aspiration pneumonia (Acute) H/O malignant neoplasm of tonsil (Acute) Lactic acidosis Pneumonia (Acute) Hypoxemia (Acute) Sepsis (Acute) Lab test negative for COVID-19 virus (Acute) Acute hypokalemia (Acute) DVT prophylaxis Protein calorie malnutrition Hypokalemia Chronic bronchitis Ex-smoker Hypoxia (Acute) Influenza A (Acute) COVID-19 (Acute) Rigors (Acute) Confusion (Acute) Fever (Acute) SIRS (systemic inflammatory response syndrome) Blood pressure instability (Acute) S Cardiology manages; currently using midodrine, and nitro PRN hypo/hypertension; per , cardiac workup wnl aside from BP changes Aspiration pneumonia hx - CAN NOT TAKE FOOD/LIQUIDS ORALLY Uses feeding tube Hypothyroidism Glaucoma Hypertension (Acute) Benign prostatic hyperplasia (Unknown) Chronic back pain Depression Gastroparesis COPD (chronic obstructive pulmonary disease) with emphysema H/O esophagogastroduodenoscopy (Unknown) WITH PLACEMENT PEG TUBE S/P arthroscopic knee surgery (Unknown) RT S/P colonoscopy (Unknown) Medical History Hematuria Acute pyelonephritis Abnormal CT scan, neck 07/2022 [facility] - "7 mm lytic lesion within the C3 vertebral body." Per , outpt imaging since being d/c from hospital has r/o mets. History of recent hospitalization 07/2022 [facility] - pneumonia Slow to wake up after anesthesia Speech difficult to understand Hearing loss History of COVID-19 05/2021 treated for pneumonia at [facility]- 06/13/22 admitted to [facility] 06/2022with covid pneumonia, flu, and RSV 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 Degenerative disc disease Osteoarthritis GERD (gastroesophageal reflux disease) Anxiety Asthma rare use of PRN inh Orthostatic hypotension Surgical History History of radical neck dissection S/P percutaneous endoscopic gastrostomy (PEG) tube placement History of neck surgery LUMPECTOMY History of tooth extraction Family History Brother Family history of diabetes mellitus Social History Smoking Status: Never smoker Tobacco Type: Cigarettes Second Hand Exposure: No; Do You Dip or Chew Tobacco: No; Hx Alcohol Use: Yes Alcohol type: beer Hx Substance Use: No Preferred Language: Mauritanian 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 Ability: Effective 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 Ability Comment: Unable to speak Loan Administrator Required: No Beliefs That Will Affect Care: None marital status: Current Living Situation: Spouse Current Living Situation Comment: Personal Home Feels Safe at Home: Yes Assistive Devices: Other Allergies Allergies Allergy/AdvReac Type Severity Reaction Status Date / Time piperacillin [From Zosyn] Allergy Severe Unresponsiv Verified 02/08/25 07:56 e tazobactam [From Zosyn] Allergy Severe Unresponsiv Verified 02/08/25 07:56 e levofloxacin Allergy Intermediate rash all Verified 01/03/25 07:02 over body sulfamethoxazole Allergy Intermediate ITCHING/HIVES Verified 01/03/25 07:02 WITH BACTRIM trimethoprim Allergy Intermediate ITCHING/HIVES Verified 01/03/25 07:02 WITH BACTRIM Nitrate Analogues AdvReac Severe DROP IN Verified 01/03/25 07:02 BP/UNCONSCIOUSNESS lisinopril AdvReac Intermediate ELEVATES Verified 01/03/25 07:02 B/P sertraline AdvReac Intermediate NOSE BLEEDS Verified 01/03/25 07:02 tamsulosin AdvReac Intermediate Hypotension Verified 01/03/25 07:02 terazosin AdvReac Intermediate PRIAPRISM Verified 01/03/25 07:02 PER [facility] Meds Home Medications Medication Instructions Recorded Confirmed citalopram 20 mg tablet 20 mg feeding tube QAM 05/07/18 01/03/25 latanoprost 0.005 % eye drops 1 drp OPB HS 01/30/19 01/03/25 acetaminophen 500 mg tablet 1,000 mg feeding tube Q6H PRN Pain 03/06/21 01/03/25 (Tylenol Extra Strength) atorvastatin 40 mg tablet 40 mg feeding tube QAM 06/02/21 01/03/25 midodrine 10 mg tablet 10 mg feeding tube TIDM 09/13/24 01/03/25 albuterol sulfate 2.5 mg/3 mL 2.5 mg inhalation DIRECTED PRN 12/26/24 01/03/25 (0.083 %) solution for nebulization Shortness Of Breath Or Wheezing aspirin 81 mg tablet,delayed 81 mg feeding tube DAILY 12/26/24 01/03/25 release bacitracin zinc 500 unit/gram 1 applic topical BID PRN APPLY TO 12/26/24 01/03/25 topical ointment NECK NEEDED calcium carbonate (Tums E-X) 600 mg feeding tube BID 12/26/24 01/03/25 clonidine HCl 0.1 mg tablet 0.1 mg feeding tube TID 12/26/24 01/03/25 cyanocobalamin (vitamin B-12) 1,000 mcg feeding tube DAILY 12/26/24 01/03/25 1,000 mcg tablet (Vitamin B-12) tiotropium 2.5 mcg-olodaterol 2.5 2 inh inhalation DAILY 12/26/24 01/03/25 mcg/actuation mist for inhalation (Stiolto Respimat) Previous Rx's Medication Instructions Recorded acetylcysteine 200 mg/mL (20 %) 5 ml inhalation BID #90 mL 12/29/24 solution ipratropium 0.5 mg-albuterol 3 mg 3 ml NEB BIDR #180 mL 12/29/24 (2.5 mg base)/3 mL nebulization soln sodium chloride 7 % for 4 ml inhalation .BIDR #240 mL 12/29/24 nebulization Results & Data (ED) Vital Signs Vital Signs - 24 hr 02/08/25 03:44 02/08/25 04:08 02/08/25 04:31 Temperature 38 C H Temperature Source Oral Pulse Rate 71 63 Pulse Rate [Apical] Pulse Rate from SpO2 Sensor Pulse Rhythm Regular Respiratory Rate 24 24 Respiratory Effort / Characteristics Respiratory Depth Respiratory Pattern Blood Pressure 115/72 158/91 H Blood Pressure [Right Arm] Blood Pressure Mean 86 105 Blood Pressure Mean [Right Arm] Pulse Oximetry 98 97 Oxygen Delivery Method Room Air Room Air Sepsis Recent Fever Within 48 Hours Yes Sepsis New/Unexplained Change in Mental Status No Sepsis Action Taken by Nursing No Action Required 02/08/25 04:33 02/08/25 04:42 02/08/25 04:45 Temperature Temperature Source Pulse Rate 64 61 67 Pulse Rate [Apical] Pulse Rate from SpO2 Sensor 64 61 Pulse Rhythm Respiratory Rate 23 19 Respiratory Effort / Characteristics Respiratory Depth Respiratory Pattern Blood Pressure Blood Pressure [Right Arm] Blood Pressure Mean Blood Pressure Mean [Right Arm] Pulse Oximetry 94 95 Oxygen Delivery Method Room Air Room Air Sepsis Recent Fever Within 48 Hours Sepsis New/Unexplained Change in Mental Status Sepsis Action Taken by Nursing 02/08/25 04:51 02/08/25 05:03 02/08/25 05:17 Temperature Temperature Source Pulse Rate 57 L 54 L Pulse Rate [Apical] Pulse Rate from SpO2 Sensor 58 L Pulse Rhythm Respiratory Rate 20 17 Respiratory Effort / Characteristics Respiratory Depth Respiratory Pattern Blood Pressure 62/46 L Blood Pressure [Right Arm] Blood Pressure Mean 52 Blood Pressure Mean [Right Arm] Pulse Oximetry 100 77 L Oxygen Delivery Method Room Air Room Air Sepsis Recent Fever Within 48 Hours Sepsis New/Unexplained Change in Mental Status Sepsis Action Taken by Nursing 02/08/25 05:18 02/08/25 05:18 02/08/25 05:20 Temperature Temperature Source Pulse Rate 73 Pulse Rate [Apical] Pulse Rate from SpO2 Sensor 74 Pulse Rhythm Respiratory Rate 23 Respiratory Effort / Characteristics Respiratory Depth Respiratory Pattern Blood Pressure 83/46 L 85/54 L Blood Pressure [Right Arm] Blood Pressure Mean 56 61 Blood Pressure Mean [Right Arm] Pulse Oximetry 99 Oxygen Delivery Method Non-rebreather Sepsis Recent Fever Within 48 Hours Sepsis New/Unexplained Change in Mental Status Sepsis Action Taken by Nursing 02/08/25 05:21 02/08/25 05:22 02/08/25 05:25 Temperature Temperature Source Pulse Rate 70 Pulse Rate [Apical] Pulse Rate from SpO2 Sensor 66 Pulse Rhythm Respiratory Rate 23 Respiratory Effort / Characteristics Respiratory Depth Respiratory Pattern Blood Pressure 88/50 L 97/52 L Blood Pressure [Right Arm] Blood Pressure Mean 59 57 Blood Pressure Mean [Right Arm] Pulse Oximetry 97 Oxygen Delivery Method Non-rebreather Sepsis Recent Fever Within 48 Hours Sepsis New/Unexplained Change in Mental Status Sepsis Action Taken by Nursing 02/08/25 05:27 02/08/25 05:30 02/08/25 05:33 Temperature Temperature Source Pulse Rate 75 76 Pulse Rate [Apical] Pulse Rate from SpO2 Sensor 75 72 Pulse Rhythm Respiratory Rate 27 H 33 H Respiratory Effort / Characteristics Respiratory Depth Respiratory Pattern Blood Pressure 118/59 L Blood Pressure [Right Arm] Blood Pressure Mean 71 Blood Pressure Mean [Right Arm] Pulse Oximetry 99 98 Oxygen Delivery Method Room Air Room Air Sepsis Recent Fever Within 48 Hours Sepsis New/Unexplained Change in Mental Status Sepsis Action Taken by Nursing 02/08/25 05:35 02/08/25 05:40 02/08/25 05:46 Temperature Temperature Source Pulse Rate Pulse Rate [Apical] Pulse Rate from SpO2 Sensor Pulse Rhythm Respiratory Rate Respiratory Effort / Characteristics Respiratory Depth Respiratory Pattern Blood Pressure 130/64 161/79 H 160/84 H Blood Pressure [Right Arm] Blood Pressure Mean 90 105 112 Blood Pressure Mean [Right Arm] Pulse Oximetry Oxygen Delivery Method Sepsis Recent Fever Within 48 Hours Sepsis New/Unexplained Change in Mental Status Sepsis Action Taken by Nursing 02/08/25 05:50 02/08/25 06:00 02/08/25 06:06 Temperature Temperature Source Pulse Rate Pulse Rate [Apical] Pulse Rate from SpO2 Sensor Pulse Rhythm Respiratory Rate Respiratory Effort / Characteristics Respiratory Depth Respiratory Pattern Blood Pressure 160/84 H 163/79 H 184/103 H Blood Pressure [Right Arm] Blood Pressure Mean 108 119 123 Blood Pressure Mean [Right Arm] Pulse Oximetry Oxygen Delivery Method Sepsis Recent Fever Within 48 Hours Sepsis New/Unexplained Change in Mental Status Sepsis Action Taken by Nursing 02/08/25 06:06 02/08/25 06:09 02/08/25 06:35 Temperature Temperature Source Pulse Rate Pulse Rate [Apical] Pulse Rate from SpO2 Sensor 92 H Pulse Rhythm Respiratory Rate 24 Respiratory Effort / Characteristics Respiratory Depth Respiratory Pattern Blood Pressure 184/103 H 143/82 H Blood Pressure [Right Arm] Blood Pressure Mean 123 104 Blood Pressure Mean [Right Arm] Pulse Oximetry 100 Oxygen Delivery Method Room Air Sepsis Recent Fever Within 48 Hours Sepsis New/Unexplained Change in Mental Status Sepsis Action Taken by Nursing 02/08/25 06:36 02/08/25 06:40 02/08/25 06:42 Temperature Temperature Source Pulse Rate 83 83 Pulse Rate [Apical] Pulse Rate from SpO2 Sensor 88 Pulse Rhythm Respiratory Rate 19 22 Respiratory Effort / Characteristics Respiratory Depth Respiratory Pattern Blood Pressure 143/83 H Blood Pressure [Right Arm] Blood Pressure Mean 103 Blood Pressure Mean [Right Arm] Pulse Oximetry 97 Oxygen Delivery Method Room Air Sepsis Recent Fever Within 48 Hours Sepsis New/Unexplained Change in Mental Status Sepsis Action Taken by Nursing 02/08/25 06:45 02/08/25 06:46 02/08/25 06:50 Temperature Temperature Source Pulse Rate 86 Pulse Rate [Apical] Pulse Rate from SpO2 Sensor 86 Pulse Rhythm Respiratory Rate 23 Respiratory Effort / Characteristics Respiratory Depth Respiratory Pattern Blood Pressure 171/69 H 164/84 H Blood Pressure [Right Arm] Blood Pressure Mean 115 116 Blood Pressure Mean [Right Arm] Pulse Oximetry 100 Oxygen Delivery Method Room Air Sepsis Recent Fever Within 48 Hours Sepsis New/Unexplained Change in Mental Status Sepsis Action Taken by Nursing 02/08/25 07:16 02/08/25 08:16 Temperature Temperature Source Pulse Rate 72 Pulse Rate [Apical] 86 Pulse Rate from SpO2 Sensor Pulse Rhythm Respiratory Rate 18 Respiratory Effort / Characteristics Non-Labored Spontaneous Respiratory Depth Normal Respiratory Pattern Regular Blood Pressure Blood Pressure [Right Arm] 188/107 H Blood Pressure Mean Blood Pressure Mean [Right Arm] 134 Pulse Oximetry 98 Oxygen Delivery Method Room Air Sepsis Recent Fever Within 48 Hours Sepsis New/Unexplained Change in Mental Status Sepsis Action Taken by Nursing Laboratory Data Attestation: I reviewed the patient's lab results. 02/08/25 04:05 02/08/25 04:05 Lab Results 02/08/25 02/08/25 02/08/25 Range/Units 03:58 04:05 04:09 WBC 10.13 (4.8-10.8) K/ul RBC 4.34 L (4.70-6.10) M/uL Hgb 13.7 L (14.0-18.0) g/dl Hct 40.2 L (42.0-52.0) % MCV 92.6 (80.0-100.0) fL MCH 31.6 (25.0-34.0) pg MCHC 34.1 (32.0-36.0) g/dL RDW Std Deviation 45.3 (36.4-46.3) fL RDW Coeff of Judy 13.3 (11.5-14.5) % Plt Count 176 (130-400) K/uL MPV 10.7 (9.4-12.4) fL Immature Gran % (Auto) 0.3 % Neut % (Auto) 83.4 % Lymph % (Auto) 8.0 % [place] % (Auto) 7.3 % Eos % (Auto) 0.8 % Baso % (Auto) 0.2 % Neut # (Auto) 8.45 H (1.40-6.50) K/uL Lymph # (Auto) 0.81 L (1.20-3.40) K/uL [place] # (Auto) 0.74 H (0.11-0.59) K/uL Eos # (Auto) 0.08 (0.00-0.50) K/uL Baso # (Auto) 0.02 (0.00-0.20) K/uL Immature Gran # (Auto) 0.03 (0.01-0.20) K/uL PT 11.5 (9.0-12.0) Seconds INR 1.1 (0.9-1.1) VBG pH (7.36-7.41) VBG pCO2 (38-50) mmHg VBG pO2 mmHg VBG HCO3 mmol/L VBG O2 Saturation % VBG Base Excess mEq/L Sodium 137 (136-145) mmol/L Potassium 3.4 L (3.5-5.1) mmol/L Chloride 102 (98-107) mmol/L Carbon Dioxide 25 (21-32) mmol/L Anion Gap 10 (3-11) BUN 13 (6-23) mg/dl Creatinine 0.96 (0.6-1.4) mg/dl Est Cr Clr Drug Dosing Not Reportable eGFR 81.41 BUN/Creatinine Ratio 13.5 (10-20) Glucose 135 H (70-99(Fasting)) mg/dl POC Glucose 145 H (70-99) mg/dl Lactate 2.4 H* (0.4-2.0) mmol/L Calcium 8.9 (8.6-10.3) mg/dl Magnesium 1.7 (1.7-2.4) mg/dl Total Bilirubin 1.2 H (0.2-1.0) mg/dl Direct Bilirubin 0.2 (0-0.2) mg/dl AST 16 (13-39) U/L ALT 9 (7-52) U/L Alkaline Phosphatase 80 (34-104) U/L Troponin I High Sens 10.8 (0-20) pg/ml Total Protein 7.2 (6.0-8.3) gm/dl Albumin 4.0 (3.4-5.0) gm/dl Lipase 19 (11-82) U/L Urine Color Urine Appearance (Clear) Urine pH (4.5-7.5) Ur Specific [place] (1.000-1.030) Urine Protein (Negative) Urine Glucose (UA) (Negative) Urine Ketones (Negative) Urine Blood (Negative) Urine Nitrite (Negative) Urine Bilirubin (Negative) Urine Urobilinogen (Negative) Ur Leukocyte Esterase (Negative) Urine Comment Nasal Screen MRSA (PCR) Negative (Negative) Adenovirus (PCR) Not Detected (NotDetected) B. pertussis DNA (PCR) Not Detected (NotDetected) B.parapertussis DNA PCR Not Detected (NotDetected) C. pneumoniae DNA (PCR) Not Detected (NotDetected) Coronavirus OC43 (PCR) Not Detected (NotDetected) Coronavirus HKU1 (PCR) Not Detected (NotDetected) Coronavirus 229E (PCR) Not Detected (NotDetected) SARS-CoV-2 (PCR) Not Detected (NotDetected) Coronavirus NL63 (PCR) Not Detected (NotDetected) Human Metapneumovir PCR Not Detected (NotDetected) Influenza Type A (PCR) Not Detected (NotDetected) Influenza Type B (PCR) Not Detected (NotDetected) M. pneumoniae (PCR) Not Detected (NotDetected) Parainfluenza 1 (PCR) Not Detected (NotDetected) Parainfluenza 2 (PCR) Not Detected (NotDetected) Parainfluenza 3 (PCR) Not Detected (NotDetected) Parainfluenza 4 (PCR) Not Detected (NotDetected) RSV (PCR) Not Detected (NotDetected) Entero/Rhino (PCR) Not Detected (NotDetected) 02/08/25 02/08/25 02/08/25 Range/Units 04:20 06:44 06:47 WBC (4.8-10.8) K/ul RBC (4.70-6.10) M/uL Hgb (14.0-18.0) g/dl Hct (42.0-52.0) % MCV (80.0-100.0) fL MCH (25.0-34.0) pg MCHC (32.0-36.0) g/dL RDW Std Deviation (36.4-46.3) fL RDW Coeff of Judy (11.5-14.5) % Plt Count (130-400) K/uL MPV (9.4-12.4) fL Immature Gran % (Auto) % Neut % (Auto) % Lymph % (Auto) % [place] % (Auto) % Eos % (Auto) % Baso % (Auto) % Neut # (Auto) (1.40-6.50) K/uL Lymph # (Auto) (1.20-3.40) K/uL [place] # (Auto) (0.11-0.59) K/uL Eos # (Auto) (0.00-0.50) K/uL Baso # (Auto) (0.00-0.20) K/uL Immature Gran # (Auto) (0.01-0.20) K/uL PT (9.0-12.0) Seconds INR (0.9-1.1) VBG pH 7.51 H (7.36-7.41) VBG pCO2 34 L (38-50) mmHg VBG pO2 37 mmHg VBG HCO3 27 mmol/L VBG O2 Saturation 74.3 % VBG Base Excess 4.3 mEq/L Sodium (136-145) mmol/L Potassium (3.5-5.1) mmol/L Chloride (98-107) mmol/L Carbon Dioxide (21-32) mmol/L Anion Gap (3-11) BUN (6-23) mg/dl Creatinine (0.6-1.4) mg/dl Est Cr Clr Drug Dosing eGFR BUN/Creatinine Ratio (10-20) Glucose (70-99(Fasting)) mg/dl POC Glucose (70-99) mg/dl Lactate 6.7 H* (0.4-2.0) mmol/L Calcium (8.6-10.3) mg/dl Magnesium (1.7-2.4) mg/dl Total Bilirubin (0.2-1.0) mg/dl Direct Bilirubin (0-0.2) mg/dl AST (13-39) U/L ALT (7-52) U/L Alkaline Phosphatase (34-104) U/L Troponin I High Sens (0-20) pg/ml Total Protein (6.0-8.3) gm/dl Albumin (3.4-5.0) gm/dl Lipase (11-82) U/L Urine Color Yellow Urine Appearance Clear (Clear) Urine pH 7.5 (4.5-7.5) Ur Specific [place] 1.011 (1.000-1.030) Urine Protein Negative (Negative) Urine Glucose (UA) Trace H (Negative) Urine Ketones Trace H (Negative) Urine Blood Negative (Negative) Urine Nitrite Negative (Negative) Urine Bilirubin Negative (Negative) Urine Urobilinogen Negative (Negative) Ur Leukocyte Esterase Negative (Negative) Urine Comment Nasal Screen MRSA (PCR) (Negative) Adenovirus (PCR) (NotDetected) B. pertussis DNA (PCR) (NotDetected) B.parapertussis DNA PCR (NotDetected) C. pneumoniae DNA (PCR) (NotDetected) Coronavirus OC43 (PCR) (NotDetected) Coronavirus HKU1 (PCR) (NotDetected) Coronavirus 229E (PCR) (NotDetected) SARS-CoV-2 (PCR) (NotDetected) Coronavirus NL63 (PCR) (NotDetected) Human Metapneumovir PCR (NotDetected) Influenza Type A (PCR) (NotDetected) Influenza Type B (PCR) (NotDetected) M. pneumoniae (PCR) (NotDetected) Parainfluenza 1 (PCR) (NotDetected) Parainfluenza 2 (PCR) (NotDetected) Parainfluenza 3 (PCR) (NotDetected) Parainfluenza 4 (PCR) (NotDetected) RSV (PCR) (NotDetected) Entero/Rhino (PCR) (NotDetected) Administered Medications Sodium Chloride (Sodium Chlor 7% 4 Ml Neb) 4 ml NEB BIDR GIRISH Stop: 03/10/25 06:59 Last Admin: 02/08/25 07:28 Dose: Not Given Documented By: MPD Discontinued Medications Albuterol (Albut/Ipratrop 3mg/0.5mg Neb 3 Ml Vial) 3 ml NEB NOW STA; Protocol Stop: 02/08/25 04:29 Last Admin: 02/08/25 04:44 Dose: 3 ml Documented By: LISBETH Diphenhydramine HCl (Diphenhydramine 50 Mg/Ml Vial) Confirm Administered Dose 50 mg .ROUTE .[facility] ONE Stop: 02/08/25 05:11 Last Admin: 02/08/25 05:30 Dose: Not Given Documented By: LISBETH Diphenhydramine HCl (Diphenhydramine 50 Mg/Ml Vial) 25 mg IV NOW STA Stop: 02/08/25 05:11 Last Admin: 02/08/25 05:29 Dose: 25 mg Documented By: LISBETH Epinephrine HCl (Epinephrine Inj 1 Mg/Ml Amp) Confirm Administered Dose 1 mg .ROUTE .[facility] ONE Stop: 02/08/25 05:20 Last Admin: 02/08/25 05:42 Dose: Not Given Documented By: LISBETH Epinephrine HCl (Epinephrine Inj 1 Mg/Ml Amp) 0.3 mg IM NOW STA Stop: 02/08/25 05:41 Last Admin: 02/08/25 05:21 Dose: 0.3 mg Documented By: LISBETH Acetaminophen (Ofirmev) 1,000 mg in 100 mls @ 400 mls/hr IV NOW STA Stop: 02/08/25 04:08 Last Infusion: 02/08/25 04:51 Dose: Infused Documented By: Admin: 02/08/25 04:26 Dose: 400 mls/hr Documented By: LISBETH Sodium Chloride (Nss) 500 mls @ 999 mls/hr IV .Q31M ONE Stop: 02/08/25 04:24 Last Infusion: 02/08/25 05:31 Dose: Infused Documented By: Admin: 02/08/25 04:26 Dose: 999 mls/hr Documented By: LISBETH Piperacillin Sod/Tazobactam Sod (Zosyn) 4.5 gm in 100 mls @ 200 mls/hr IV NOW ONE; Protocol Stop: 02/08/25 04:24 Last Infusion: 02/08/25 05:12 Dose: Infused Documented By: Admin: 02/08/25 04:47 Dose: 200 mls/hr Documented By: LISBETH Famotidine (Pepcid 20mg Iv Push) 20 mg in 5 mls @ 2.5 mls/min IV NOW STA Stop: 02/08/25 05:11 Last Admin: 02/08/25 05:34 Dose: 2.5 mls/min Documented By: LISBETH Sodium Chloride (Nss) 1,000 mls @ 999 mls/hr IV .Q1H1M ONE Stop: 02/08/25 06:10 Last Infusion: 02/08/25 06:33 Dose: Infused Documented By: Admin: 02/08/25 05:30 Dose: 999 mls/hr Documented By: LISBETH Sodium Chloride (Nss) 1,000 mls @ 999 mls/hr IV .Q1H1M ONE Stop: 02/08/25 06:29 Last Infusion: 02/08/25 07:00 Dose: Infused Documented By: Admin: 02/08/25 05:33 Dose: 999 mls/hr Documented By: LISBETH Ertapenem (Invanz 1000mg) 1,000 mg in 10 mls @ 2 mls/min IV NOW STA Stop: 02/08/25 05:33 Last Admin: 02/08/25 05:39 Dose: 2 mls/min Documented By: LISBETH Ioversol (Optiray 320 125ml) 125 ml IV ONCE ONE Stop: 02/08/25 06:34 Last Admin: 02/08/25 06:33 Dose: 118 ml Documented By: GHISLAINE Methylprednisolone (Methylprednisolone 125 Mg/2 Ml Vial) 125 mg IV NOW STA Stop: 02/08/25 04:29 Last Admin: 02/08/25 04:45 Dose: 125 mg Documented By: LISBETH Imaging Data Radiologist's Impression: Chest X-Ray 02/08/25 03:53 EXAM: XR chest 1V portable CLINICAL HISTORY: Sepsis TECHNIQUE: Radiograph of chest was acquired. COMPARISON: CR dated 12/26/2024 02:10:00 [employer]. FINDINGS: The lungs are clear and well-expanded with no pulmonary infiltrate or pleural effusion. The cardiomediastinal silhouette is within normal limits. No acute osseous abnormality. IMPRESSION: 1. No acute cardiopulmonary disease. Electronically signed by Walter Seals 02-08-2025 05:52 AM Chest CTA 02/08/25 05:33 EXAM: CT angio chest PE protocol CLINICAL HISTORY: hypoxia, cp, r/o PE TECHNIQUE: Contiguous axial images were obtained from the neck base through the upper abdomen following intravenous administration of iodinated contrast material. Angiographic images were processed, 3D MIP images were acquired for interpretation. If IV contrast material had not been administered, the likelihood of detecting abnormalities relevant to the patient's condition would have been substantially decreased. Coronal and sagittal 3-D MIPs were likewise performed and indicated to increase the sensitivity of detectin diffuse clinically relevant pathology. CT scan was performed according to ALARA (as low as reasonable achievable). COMPARISON: None. FINDINGS: Patchy nodular consolidation is noted involving posterior basal segment of right lower lobe. Few atelectatic bands are noted involving bilateral based posterior basal segments. Small calcified granuloma is noted involving right lower lobe Adequate contrast bolus without evidence of pulmonary embolism. The central airways are patent. Rest of lungs are clear. No pleural effusion. The heart, aorta, and pulmonary arteries are of normal size and configuration. There are no appreciable coronary artery and aortic atherosclerotic calcifications. No pericardial effusion is identified. The thyroid is unremarkable. No mediastinal, hilar, or axillary lymphadenopathy is noted. No suspicious lytic or sclerotic osseous lesions are identified. IMPRESSION: No evidence of pulmonary embolism Patchy nodular consolidation is noted involving posterior basal segment of right lower lobe. -increased Few atelectatic bands are noted involving bilateral based posterior basal segments.-stable. Small calcified granuloma is noted involving right lower lobe-stable. Electronically signed by Walter Seals 02-08-2025 07:[address] 02/08/25 05:33 EXAM: CT head/brain wo con CLINICAL HISTORY: headache TECHNIQUE: Multiple axial images are obtained from the skull base to the vertex without contrast. CT scan was performed according to ALARA (as low as reasonable achievable). COMPARISON: Feb 14:13:41 [employer] FINDINGS: Metallic artifact adjacent to the left parietal region limits its evaluation. There is cerebral atrophy. No evidence of space occupying lesion, hemorrhage, edema, mass effect, midline shift, extra axial collection, or hydrocephalus is noted. Basal cisterns are symmetric and normal in size and configuration. There are scattered periventricular hypodensities as can be seen with chronic microvascular ischemic changes. The ferguson-white matter differentiation is preserved. Visualized paranasal sinuses and right mastoid air cells are well aerated. Orbital contents are within normal limits. Opacification of left mastoid air cells with bny defect- postoperative changes along lateral wall of left mastoid bone. Rest of the bony structures are intact. IMPRESSION: 1. No evidence of acute intracranial abnormality is demonstrated. 2. Chronic microvascular ischemic changes.-stable. 3. Cerebral atrophy.-stable. No other new interval abnormality since prior study. Electronically signed by Walter Seals 02-08-2025 07:52 AM Abdomen/Pelvis CT 02/08/25 05:34 EXAM: CT abd pelvis IV con only CLINICAL HISTORY: sepsis, hypotension TECHNIQUE: Contiguous axial images were obtained from the level of the diaphragm to the pubic symphysis with intravenous contrast. Coronal and sagittal reconstructions were likewise performed and indicated to increase the sensitivity for detecting clinically relevant pathology. If IV contrast material had not been administered, the likelihood of detecting abnormalities relevant to the patient's condition would have been substantially decreased. CT scan was performed according to ALARA (as low as reasonable achievable). COMPARISON: 20:13:03 [employer] FINDINGS: Patchy consolidation with adjacent atelectasis is noted involving right basal segments. Few atelectatic bands are noted in the left posterior basal segment. The liver is normal in size and attenuation. No focal liver lesions are seen. There is no intra or extrahepatic biliary ductal dilatation. Hepatic vasculature is patent. The gallbladder is present. The spleen, pancreas, and adrenal glands are unremarkable. The kidneys are normal in size and attenuation. There is no hydronephrosis or perinephric fat stranding. No renal calculi or renal masses are identified. The ureters are normal in caliber and no ureteral calculi are seen. The bladder shows mild diffuse wall thickening - suggest possibility of cystitis- urine analysis correlation suggested Prostate appears enlarged in size measures about 54 x 42 mm. No focal or diffuse bowel wall thickening or evidence of bowel obstruction is identified. No inflamed appendix is visualized in the right lower quadrant. Abdominal and pelvic vasculature is patent. No adenopathy or fluid collections are seen. No aggressive appearing osseous lesions are identified. IMPRESSION: 1. Enlarged prostate-stable. 2. The bladder shows mild diffuse wall thickening - suggest possibility of cystitis- urine analysis correlation suggested -stable. 3. Patchy consolidation with adjacent atelectasis is noted involving right basal segments.-new finding. Electronically signed by Walter Seals 02-08-2025 07:42 AM Discharge Plan Visit Data Chief Complaint: Cough Stated Complaint: TEMP, COUGH, FLEM IN TRAACH ED Provider: Savage Alexander Discharge Problem: Pneumonia, Acute respiratory failure with hypoxia, Tracheostomy present, Anaphylaxis Patient Disposition: Admitted As Inpatient Condition: Serious Forms Stand Alone Forms: [facility] Prescriptions Prescriptions: No Action latanoprost 0.005 % Drops 1 drp OPB HS citalopram 20 mg tablet 20 mg Feeding Tube QAM acetaminophen [Tylenol Extra Strength] 500 mg Tablet 1,000 mg feeding tube Q6H PRN (Reason: Pain) atorvastatin 40 mg tablet 40 mg feeding tube QAM clonidine HCl 0.1 mg tablet 0.1 mg feeding tube TID albuterol sulfate 2.5 mg /3 mL (0.083 %) Solution For Nebulization 2.5 mg INHALATION DIRECTED PRN (Reason: Shortness Of Breath Or Wheezing) cyanocobalamin (vitamin B-12) [Vitamin B-12] 1,000 mcg Tablet 1,000 mcg feeding tube DAILY Tums E-X 300 mg (750 mg) Tablet,Chewable 600 mg feeding tube BID bacitracin zinc 500 unit/gram Ointment 1 applic TOPICAL BID PRN (Reason: APPLY TO NECK NEEDED) aspirin 81 mg Tablet,Delayed Release (Dr/Ec) 81 mg feeding tube DAILY Stiolto Respimat 2.5-2.5 mcg/actuation mist 2 inh INHALATION DAILY acetylcysteine 200 mg/mL (20 %) Solution 5 ml inhalation BID Qty: 90 0RF ipratropium-albuterol 0.5 mg-3 mg(2.5 mg base)/3 mL Solution For Nebulization 3 ml NEB BIDR Qty: 180 0RF sodium chloride 7 % solution for nebulization 4 ml inhalation .BIDR Qty: 240 0RF midodrine 10 mg tablet 10 mg feeding tube TIDM Referrals Referrals: Richland,Sanjiv E., MD [Primary Care Provider] - Discharge Problem: Pneumonia Qualifiers: Pneumonia type: due to unspecified organism Laterality: unspecified laterality Lung location: unspecified part of lung Qualified Code(s): J18.9 - Pneumonia, unspecified organism Anaphylaxis Qualifiers: Encounter type: initial encounter Qualified Code(s): T78.2XXA - Anaphylactic shock, unspecified, initial encounter
[2025-02-08] MEDS: SODIUM CHLORIDE 0.9% 500 ML IV ONE (04:26)
[2025-02-08] MEDS: ACETAMINOPHEN 1,000 MG/100 ML VIAL IV STA (04:26)
[2025-02-08 04:30] LABS: Base Excess VBG 4.3 mEq/L; HCO3 VBG 27 mmol/L; Oxygen Saturation VBG 74.3 %; PCO2 VBG 34 mmHg (38-50); PO2 VBG 37 mmHg; pH VBG 7.51 (7.36-7.41)
[2025-02-08 04:35] LABS: Hematocrit (blood only) 40.2 % (42.0-52.0); Hemoglobin 13.7 g/dl (14.0-18.0); Immature Granulocytes # (auto) 0.03 K/uL (0.01-0.20); Immature Granulocytes % (auto) 0.3 %; Mean Corpuscular Hemoglobin 31.6 pg (25.0-34.0); Mean Corpuscular Volume 92.6 fL (80.0-100.0); Platelet Count 176 K/uL (130-400); RDW Standard Deviation 45.3 fL (36.4-46.3); Red Blood Count 4.34 M/uL (4.70-6.10); White Blood Count 10.13 K/ul (4.8-10.8)
[2025-02-08] MEDS: ALBUT/IPRATROP 3MG/0.5MG NEB 3 ML VIAL NEB STA (04:44)
[2025-02-08] MEDS: PIPERACILLIN/TAZOBACTAM 4.5 GM/100 ML BAG IV ONE (04:47)
[2025-02-08 04:53] LABS: Alanine Aminotransferase 9 U/L (7-52); Alkaline Phosphatase 80 U/L (34-104); Anion Gap 10 (3-11); Bilirubin,Total 1.2 mg/dl (0.2-1.0); Blood Urea Nitrogen 13 mg/dl (6-23); Calcium 8.9 mg/dl (8.6-10.3); Carbon Dioxide 25 mmol/L (21-32); Chloride 102 mmol/L (98-107); Glucose 135 mg/dl (70-99(Fasting)); Lipase 19 U/L (11-82); Magnesium 1.7 mg/dl (1.7-2.4); Potassium 3.4 mmol/L (3.5-5.1); Sodium 137 mmol/L (136-145); Total Protein 7.2 gm/dl (6.0-8.3)
[2025-02-08 05:18] LABS: INR 1.1 (0.9-1.1); Prothrombin Time 11.5 Seconds (9.0-12.0)
[2025-02-08] MEDS: EPINEPHrine INJ 1 MG/ML AMP IM STA (05:21)
[2025-02-08] MEDS: diphenhydrAMINE 50 MG/ML VIAL IV STA (05:29)
[2025-02-08] MEDS: diphenhydrAMINE 50 MG/ML VIAL ONE (05:30)
[2025-02-08] MEDS: SODIUM CHLORIDE 0.9% 1,000 ML IV ONE ×2 (05:30→05:33)
[2025-02-08] MEDS: FAMOTIDINE 20MG IV PUSH 20 MG/5 ML SYR IV STA (05:34)
[2025-02-08] MEDS: ERTAPENEM 1000MG 1,000 MG/10 ML SYR IV STA (05:39)
[2025-02-08] MEDS: EPINEPHrine INJ 1 MG/ML AMP ONE (05:42)
--- NOTE | 2025-02-08 05:52 | XRay Report ---
EXAM: XR chest 1V portable CLINICAL HISTORY: Sepsis TECHNIQUE: Radiograph of chest was acquired. COMPARISON: CR dated 12/26/2024 02:10:00 [employer]. FINDINGS: The lungs are clear and well-expanded with no pulmonary infiltrate or pleural effusion. The cardiomediastinal silhouette is within normal limits. No acute osseous abnormality. IMPRESSION: 1. No acute cardiopulmonary disease. Electronically signed by Walter Seals 02-08-2025 05:52 AM
[2025-02-08 06:21] LABS: Chlamydia pneumoniae PCR Not Detected (NotDetected); Coronavirus 229E PCR Not Detected (NotDetected); Coronavirus CoV-2 (COVID19)PCR Not Detected (NotDetected); Coronavirus HKU1 PCR Not Detected (NotDetected); Coronavirus NL63 PCR Not Detected (NotDetected); Coronavirus OC43PCR Not Detected (NotDetected); Human Metapneumovirus PCR Not Detected (NotDetected); Parainfluenza Virus 1 PCR Not Detected (NotDetected); Parainfluenza Virus 2 PCR Not Detected (NotDetected); Parainfluenza Virus 3 PCR Not Detected (NotDetected); Parainfluenza Virus 4 PCR Not Detected (NotDetected); Respiratory Syncytial VirusPCR Not Detected (NotDetected); Rhinovirus/Enterovirus PCR Not Detected (NotDetected)
[2025-02-08] MEDS: OPTIRAY 320 125ml IV ONE (06:33)
[2025-02-08] MEDS: SODIUM CHLOR 7% 4 ML NEB NEB SCH (07:28)
[2025-02-08 07:37] LABS: Appearance Urine Clear (Clear); Glucose Urine UA Trace (Negative)
--- NOTE | 2025-02-08 07:41 | History & Physical Report ---
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 Productive cough of cloudy/white, thick sputum x 2 days. Tmax of 99.9F last evening at home. Pt previously admitted under our service last month due to acute hypoxic respiratory failure and possible aspiration pneumonitis vs possible mucous plug. Pt was treated with IV ertapenem at that time after sputum culture grew Enterobacter cloacae complex. #RLL PNA --> c/f possible aspiration component Resp Biofire negative, procalcitonin negative; nasal MRSA negative Chest CTA: patchy nodular consolidation is noted involving posterior basal segment of RLL - increased Per pt's , pt is supposed to not be able to aspirate following his laryngectomy Upon chart review, there is a [place] from an office visit on 01/02/25 that states "...he cannot aspirate for the record after the laryngectomy." Pt's requesting communication w/ Dr. Gentile to discuss the above given PNA recurrence -Will plan on sending TT to Dr. Gentile to gather more info regarding this -D/w ENGINEER PROCESS --> need to gather more info for clarification regarding pt's anatomy s/p laryngectomy -No typical pharyngeal/laryngeal anatomy to use as guides for FEES; VFSS recommended --> plan for this to be done today Pt tolerates pured diet at home; dysphagia screen ordered --> if passed can have pured diet for now; aspiration precautions Cover w/ IV ertapenem for now given multiple ABX allergies, anaphylactic rx to Zosyn in ED as per below; follow blood cxs, sputum cx C/w airway clearance therapy w/ hypertonic nebs, Mucomyst, Duonebs and Mucinex #Anaphylaxis following IV Zosyn administration in the ED Pt developed diffuse blanchable erythema, pruritus following administration of IV Zosyn in the ED Pt also was hypoxic with O2 sat down to 77% requiring nonrebreather application, severely hypotension and bradycardic -Pt was initially called a CODE BLUE due to severe hypotension and bradycardia but thankfully he never arrested -0.3mg IM epinephrine, IVF, IV Benadryl, IV Solu-Medrol and IV famotidine promptly administered --> pt responded well w/ rapid VS stabilization Pt w/ faint wheezing on exam in ED following anaphylactic event; pt saturating on RA now w/ stabilized VS -Continue IV Solu-Medrol 40mg Q8H for now given residual wheezing, potential biphasic sx #Lactic acidosis Not meeting sepsis criteria on admission; however pt was febrile w/ Tmax of 38C in ED Initial lactate 2.4 --> repeat lactate 6.7 (drawn following anaphylactic event); Worsening lactic acidosis 2/2 hypotension, bradycardia during anaphylactic event -Continue IVF and follow repeat lactate level #History of 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 #History of hygienic total laryngectomy with L ALT free flap reconstruction and primary TEP placement in 06/2024 Pt tolerates pured diet at home per his ; routine tracheostomy care Reportedly there is discussion regarding the removal of his PEG tube per pt's ; PEG does not receive any supplementation via PEG tube #History of orthostatic hypotension SBP low 100s upon eval in the ED --> continue midodrine for now, hold clonidine Closely monitor BP, fall precautions; IVF on board as per above DVT Prophylaxis: Heparin SQ PCP: Sanjiv Hart MD Disposition: Admit to PCU Patient seen in collaboration with Dr. Guillen. Please see addendum. I spent a total of 68 minutes coordinating, documenting, and providing care for this patient excluding time spent in the performance of separately billed ser vices or time spent by another provider/QHP. This included personally reviewing all current laboratories and imaging studies, medical reconciliation, outpatient chart review and discussion with specialists. This chart was completed in part utilizing Speech Voice Recognition Software. Grammatical errors, random word insertions, pronoun errors, and incomplete sentences are an occasional consequence of this system due to software limitations, ambient noise, and hardware issues. Any formal questions or concerns about the content, text, or information contained within the body of this dictation should be directly addressed to the provider for clarification. 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 History primarily obtained from the patient's as patient is hard of hearing and has difficulty with verbal communication due to history of tonsillar carcinoma. Patient is, however, A&Ox3 and communicates well with nodding to supplement his difficulty with verbal communication. Patient with productive cough of cloudy, white sputum since yesterday morning which his describes as thick and difficult to suction. No reported breathing difficulty. No recorded fevers however patient's temperature was mildly elevated to 99.9F last evening. Denies any chest pain, abdominal pain, bowel habit changes or urinary habit changes. Patient tolerates a pured diet at home. No witnessed santhosh aspiration events; patient's reports his left ALT free flap reconstruction in June 2024 was supposed to "prevent him from aspirating ever again." Patient's primary car dryer is Dr. Gentile at [facility]. Patient previously admitted under our service last month due to acute hypoxic respiratory failure and possible aspiration pneumonitis vs possible mucous plug. Patient was treated with IV ertapenem at that time after sputum culture grew Enterobacter cloacae complex. Allergies Allergy/AdvReac Type Severity Reaction Status Date / Time piperacillin [From Zosyn] Allergy Severe Unresponsiv Verified 02/08/25 07:56 e tazobactam [From Zosyn] Allergy Severe Unresponsiv Verified 02/08/25 07:56 e levofloxacin Allergy Intermediate rash all Verified 01/03/25 07:02 over body sulfamethoxazole Allergy Intermediate ITCHING/HIVES Verified 01/03/25 07:02 WITH BACTRIM trimethoprim Allergy Intermediate ITCHING/HIVES Verified 01/03/25 07:02 WITH BACTRIM Nitrate Analogues AdvReac Severe DROP IN Verified 01/03/25 07:02 BP/UNCONSCIOUSNESS lisinopril AdvReac Intermediate ELEVATES Verified 01/03/25 07:02 B/P sertraline AdvReac Intermediate NOSE BLEEDS Verified 01/03/25 07:02 tamsulosin AdvReac Intermediate Hypotension Verified 01/03/25 07:02 terazosin AdvReac Intermediate PRIAPRISM Verified 01/03/25 07:02 PER [facility] Home Medications Medication Instructions Recorded Confirmed Type citalopram 20 mg tablet 20 mg feeding tube QAM 05/07/18 02/08/25 History latanoprost 0.005 % eye drops 1 drp OPB HS 01/30/19 02/08/25 History acetaminophen 500 mg tablet 1,000 mg feeding tube Q6H PRN Pain 03/06/21 02/08/25 History (Tylenol Extra Strength) atorvastatin 40 mg tablet 40 mg feeding tube QAM 06/02/21 02/08/25 History midodrine 10 mg tablet 10 mg feeding tube TIDM 09/13/24 02/08/25 History albuterol sulfate 2.5 mg/3 mL 2.5 mg inhalation DIRECTED PRN 12/26/24 02/08/25 History (0.083 %) solution for nebulization Shortness Of Breath Or Wheezing aspirin 81 mg tablet,delayed 81 mg feeding tube DAILY 12/26/24 02/08/25 History release bacitracin zinc 500 unit/gram 1 applic topical BID PRN APPLY TO 12/26/24 02/08/25 History topical ointment NECK NEEDED calcium carbonate (Tums E-X) 600 mg feeding tube BID 12/26/24 02/08/25 History clonidine HCl 0.1 mg tablet 0.1 mg feeding tube TID 12/26/24 02/08/25 History cyanocobalamin (vitamin B-12) 1,000 mcg feeding tube DAILY 12/26/24 02/08/25 History 1,000 mcg tablet (Vitamin B-12) tiotropium 2.5 mcg-olodaterol 2.5 2 inh inhalation DAILY 12/26/24 02/08/25 History mcg/actuation mist for inhalation (Stiolto Respimat) acetylcysteine 200 mg/mL (20 %) 5 ml inhalation BID #90 mL 12/29/24 02/08/25 Rx solution ipratropium 0.5 mg-albuterol 3 mg 3 ml NEB BIDR #180 mL 12/29/24 02/08/25 Rx (2.5 mg base)/3 mL nebulization soln sodium chloride 7 % for 4 ml inhalation .BIDR #240 mL 12/29/24 02/08/25 Rx nebulization Past Med/Surg History Problem List History of aspiration pneumonia Productive cough Anaphylaxis due to antibacterial agent Anaphylaxis (Acute) Tracheostomy present (Acute) Pneumonia (Acute) SOB (shortness of breath) Aspiration into airway (Acute) Chest pain (Acute) Acute hypoxic respiratory failure (Acute) Acute dyspnea (Acute) Urinary retention Weight loss Recurrent aspiration pneumonia Pneumonia (Acute) On tube feeding diet Tonsil carcinoma (Unknown) RADIATION AND CHEMO Lab test negative for COVID-19 virus (Acute) COPD exacerbation (Acute) Hypoxemia (Acute) Hypokalemia (Acute) COVID-19 (Acute) Elevated lactic acid level (Acute) Cough (Acute) Hypotension (Acute) Chronic orthostatic hypotension COVID-19 (Acute) Head injury, closed, with brief LOC (Acute) Respiratory syncytial virus (RSV) infection (Acute) Acute respiratory failure with hypoxia (Acute) Bronchopneumonia Encounter for pre-operative examination Aspiration pneumonia (Acute) H/O malignant neoplasm of tonsil (Acute) Lactic acidosis Pneumonia (Acute) Hypoxemia (Acute) Sepsis (Acute) Lab test negative for COVID-19 virus (Acute) Acute hypokalemia (Acute) DVT prophylaxis Protein calorie malnutrition Hypokalemia Chronic bronchitis Ex-smoker Hypoxia (Acute) Influenza A (Acute) COVID-19 (Acute) Rigors (Acute) Confusion (Acute) Fever (Acute) SIRS (systemic inflammatory response syndrome) Blood pressure instability (Acute) S Cardiology manages; currently using midodrine, and nitro PRN hypo/hypertension; per , cardiac workup wnl aside from BP changes Aspiration pneumonia hx - CAN NOT TAKE FOOD/LIQUIDS ORALLY Uses feeding tube Hypothyroidism Glaucoma Hypertension (Acute) Benign prostatic hyperplasia (Unknown) Chronic back pain Depression Gastroparesis COPD (chronic obstructive pulmonary disease) with emphysema H/O esophagogastroduodenoscopy (Unknown) WITH PLACEMENT PEG TUBE S/P arthroscopic knee surgery (Unknown) RT S/P colonoscopy (Unknown) Medical History Hematuria Acute pyelonephritis Abnormal CT scan, neck 07/2022 [facility] - "7 mm lytic lesion within the C3 vertebral body." Per , outpt imaging since being d/c from hospital has r/o mets. History of recent hospitalization 07/2022 [facility] - pneumonia Slow to wake up after anesthesia Speech difficult to understand Hearing loss History of COVID-19 05/2021 treated for pneumonia at [facility]- 06/13/22 admitted to [facility] 06/2022with covid pneumonia, flu, and RSV 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 Degenerative disc disease Osteoarthritis GERD (gastroesophageal reflux disease) Anxiety Asthma rare use of PRN inh Orthostatic hypotension Surgical History History of radical neck dissection S/P percutaneous endoscopic gastrostomy (PEG) tube placement History of neck surgery LUMPECTOMY History of tooth extraction Family History Brother Family history of diabetes mellitus Social History Smoking Status: Former smoker Tobacco Type: Cigarettes Second Hand Exposure: No; Do You Dip or Chew Tobacco: No; Hx Alcohol Use: Yes (Has not drank for "a long time" per .) Alcohol type: beer Hx Substance Use: No Preferred Language: Sinhala 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 Ability: Impaired 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 Ability Comment: Unable to speak. Director Trial Required: No Beliefs That Will Affect Care: None marital status: Current Living Situation: Spouse Current Living Situation Comment: Personal Home Other Information That Helps Us Care for You: No Feels Safe at Home: Yes Safety Concerns: Feels Safe At This Time Assistive Devices: None Review of Systems Review of Systems: At least ten systems reviewed and negative, except as noted in the HPI. Physical Exam Physical Exam: General: Elderly M, chronically ill-appearing/cachectic, [place], faint voice s/p surgery, A&Ox3, NAD, at bedside HEENT: Normocephalic, atraumatic, external ear and nose normal, oropharynx dry, tracheostomy present Respiratory: Normal respiratory effort, rhonchi in RLL, minimal wheezing throughout Cardiovascular: RRR, no BLE edema, normal peripheral pulses Abdomen/GI: Active bowel sounds, soft, PEG tube present (C/D, no surrounding erythema), nontender to palpation in all quadrants Extremities/MSK: No cyanosis or clubbing, extremities motor strength intact, moves all extremities Neurologic: No overt focal deficits, CN's II-XI not formally tested but appear grossly intact bilaterally Results & Data Results & Data Vital Signs (Past 12 Hours) Vital Signs Temp Pulse Pulse Resp BP BP Pulse Ox 02/08/25 07:16 86 18 188/107 H 98 02/08/25 06:50 164/84 H 02/08/25 06:46 171/69 H 02/08/25 06:45 86 23 100 02/08/25 06:42 83 22 02/08/25 06:40 143/83 H 02/08/25 06:36 83 19 97 02/08/25 06:35 143/82 H 02/08/25 06:09 24 100 02/08/25 06:06 184/103 H 02/08/25 06:06 184/103 H 02/08/25 06:00 163/79 H 02/08/25 05:50 160/84 H 02/08/25 05:46 160/84 H 02/08/25 05:40 161/79 H 02/08/25 05:35 130/64 02/08/25 05:33 76 33 H 98 02/08/25 05:30 118/59 L 02/08/25 05:27 75 27 H 99 02/08/25 05:25 97/52 L 02/08/25 05:22 88/50 L 02/08/25 05:21 70 23 97 02/08/25 05:20 85/54 L 02/08/25 05:18 73 23 99 02/08/25 05:18 83/46 L 02/08/25 05:17 62/46 L 77 L 02/08/25 05:03 54 L 17 02/08/25 04:51 57 L 20 100 02/08/25 04:45 67 02/08/25 04:42 61 19 95 02/08/25 04:33 64 23 94 02/08/25 04:31 158/91 H 02/08/25 04:08 63 24 97 02/08/25 03:44 38 C H 71 24 115/72 98 O2 Del Method 02/08/25 07:16 Room Air 02/08/25 06:50 02/08/25 06:46 02/08/25 06:45 Room Air 02/08/25 06:42 02/08/25 06:40 02/08/25 06:36 Room Air 02/08/25 06:35 02/08/25 06:09 Room Air 02/08/25 06:06 02/08/25 06:06 02/08/25 06:00 02/08/25 05:50 02/08/25 05:46 02/08/25 05:40 02/08/25 05:35 02/08/25 05:33 Room Air 02/08/25 05:30 02/08/25 05:27 Room Air 02/08/25 05:25 02/08/25 05:22 02/08/25 05:21 Non-rebreather 02/08/25 05:20 02/08/25 05:18 Non-rebreather 02/08/25 05:18 02/08/25 05:17 Room Air 02/08/25 05:03 02/08/25 04:51 Room Air 02/08/25 04:45 02/08/25 04:42 Room Air 02/08/25 04:33 Room Air 02/08/25 04:31 02/08/25 04:08 Room Air 02/08/25 03:44 Room Air Laboratory Results Short CBC 02/08/25 Range/Units 04:05 WBC 10.13 (4.8-10.8) K/ul Hgb 13.7 L (14.0-18.0) g/dl Hct 40.2 L (42.0-52.0) % Plt Count 176 (130-400) K/uL BMP 02/08/25 04:05 Sodium 137 Potassium 3.4 L Chloride 102 Carbon Dioxide 25 BUN 13 Creatinine 0.96 Glucose 135 H Calcium 8.9 Liver Function 02/08/25 Range/Units 04:05 Total Bilirubin 1.2 H (0.2-1.0) mg/dl Direct Bilirubin 0.2 (0-0.2) mg/dl AST 16 (13-39) U/L ALT 9 (7-52) U/L Alkaline Phosphatase 80 (34-104) U/L Albumin 4.0 (3.4-5.0) gm/dl Urine 02/08/25 Range/Units 06:44 Urine Color Yellow Urine Appearance Clear (Clear) Urine pH 7.5 (4.5-7.5) Ur Specific [place] 1.011 (1.000-1.030) Urine Protein Negative (Negative) Urine Glucose (UA) Trace H (Negative) Diagnostic Findings Chest X-Ray 02/08/25 03:53 EXAM: XR chest 1V portable CLINICAL HISTORY: Sepsis TECHNIQUE: Radiograph of chest was acquired. COMPARISON: CR dated 12/26/2024 02:10:00 REVENUE SETTLEMENTS ADMINISTRATOR. FINDINGS: The lungs are clear and well-expanded with no pulmonary infiltrate or pleural effusion. The cardiomediastinal silhouette is within normal limits. No acute osseous abnormality. IMPRESSION: 1. No acute cardiopulmonary disease. Electronically signed by Walter Seals 02-08-2025 05:52 AM Abdomen/Pelvis CT 02/08/25 05:34 EXAM: CT abd pelvis IV con only CLINICAL HISTORY: sepsis, hypotension TECHNIQUE: Contiguous axial images were obtained from the level of the diaphragm to the pubic symphysis with intravenous contrast. Coronal and sagittal reconstructions were likewise performed and indicated to increase the sensitivity for detecting clinically relevant pathology. If IV contrast material had not been administered, the likelihood of detecting abnormalities relevant to the patient's condition would have been substantially decreased. CT scan was performed according to ALARA (as low as reasonable achievable). COMPARISON: 20:13:03 REVENUE SETTLEMENTS ADMINISTRATOR FINDINGS: Patchy consolidation with adjacent atelectasis is noted involving right basal segments. Few atelectatic bands are noted in the left posterior basal segment. The liver is normal in size and attenuation. No focal liver lesions are seen. There is no intra or extrahepatic biliary ductal dilatation. Hepatic vasculature is patent. The gallbladder is present. The spleen, pancreas, and adrenal glands are unremarkable. The kidneys are normal in size and attenuation. There is no hydronephrosis or perinephric fat stranding. No renal calculi or renal masses are identified. The ureters are normal in caliber and no ureteral calculi are seen. The bladder shows mild diffuse wall thickening - suggest possibility of cystitis- urine analysis correlation suggested Prostate appears enlarged in size measures about 54 x 42 mm. No focal or diffuse bowel wall thickening or evidence of bowel obstruction is identified. No inflamed appendix is visualized in the right lower quadrant. Abdominal and pelvic vasculature is patent. No adenopathy or fluid collections are seen. No aggressive appearing osseous lesions are identified. IMPRESSION: 1. Enlarged prostate-stable. 2. The bladder shows mild diffuse wall thickening - suggest possibility of cystitis- urine analysis correlation suggested -stable. 3. Patchy consolidation with adjacent atelectasis is noted involving right basal segments.-new finding. Electronically signed by Walter Seals 02-08-2025 07:42 AM Medications Administered Sodium Chloride (Sodium Chlor 7% 4 Ml Neb) 4 ml NEB BIDR GIRISH Stop: 03/10/25 06:59 Last Admin: 02/08/25 07:28 Dose: Not Given Documented By: PIPPA Discontinued Medications Albuterol (Albut/Ipratrop 3mg/0.5mg Neb 3 Ml Vial) 3 ml NEB NOW STA; Protocol Stop: 02/08/25 04:29 Last Admin: 02/08/25 04:44 Dose: 3 ml Documented By: LISBETH Diphenhydramine HCl (Diphenhydramine 50 Mg/Ml Vial) Confirm Administered Dose 50 mg .ROUTE .STK-MED ONE Stop: 02/08/25 05:11 Last Admin: 02/08/25 05:30 Dose: Not Given Documented By: LISBETH Diphenhydramine HCl (Diphenhydramine 50 Mg/Ml Vial) 25 mg IV NOW STA Stop: 02/08/25 05:11 Last Admin: 02/08/25 05:29 Dose: 25 mg Documented By: LISBETH Epinephrine HCl (Epinephrine Inj 1 Mg/Ml Amp) Confirm Administered Dose 1 mg .ROUTE .STK-MED ONE Stop: 02/08/25 05:20 Last Admin: 02/08/25 05:42 Dose: Not Given Documented By: LISBETH Epinephrine HCl (Epinephrine Inj 1 Mg/Ml Amp) 0.3 mg IM NOW STA Stop: 02/08/25 05:41 Last Admin: 02/08/25 05:21 Dose: 0.3 mg Documented By: LISBETH Acetaminophen (Ofirmev) 1,000 mg in 100 mls @ 400 mls/hr IV NOW STA Stop: 02/08/25 04:08 Last Infusion: 02/08/25 04:51 Dose: Infused Documented By: Admin: 02/08/25 04:26 Dose: 400 mls/hr Documented By: LISBETH Sodium Chloride (Nss) 500 mls @ 999 mls/hr IV .Q31M ONE Stop: 02/08/25 04:24 Last Infusion: 02/08/25 05:31 Dose: Infused Documented By: Admin: 02/08/25 04:26 Dose: 999 mls/hr Documented By: LISBETH Piperacillin Sod/Tazobactam Sod (Zosyn) 4.5 gm in 100 mls @ 200 mls/hr IV NOW ONE; Protocol Stop: 02/08/25 04:24 Last Infusion: 02/08/25 05:12 Dose: Infused Documented By: Admin: 02/08/25 04:47 Dose: 200 mls/hr Documented By: LISBETH Famotidine (Pepcid 20mg Iv Push) 20 mg in 5 mls @ 2.5 mls/min IV NOW STA Stop: 02/08/25 05:11 Last Admin: 02/08/25 05:34 Dose: 2.5 mls/min Documented By: LISBETH Sodium Chloride (Nss) 1,000 mls @ 999 mls/hr IV .Q1H1M ONE Stop: 02/08/25 06:10 Last Infusion: 02/08/25 06:33 Dose: Infused Documented By: Admin: 02/08/25 05:30 Dose: 999 mls/hr Documented By: LISBETH Sodium Chloride (Nss) 1,000 mls @ 999 mls/hr IV .Q1H1M ONE Stop: 02/08/25 06:29 Last Infusion: 02/08/25 07:00 Dose: Infused Documented By: Admin: 02/08/25 05:33 Dose: 999 mls/hr Documented By: LISBETH Ertapenem (Invanz 1000mg) 1,000 mg in 10 mls @ 2 mls/min IV NOW STA Stop: 02/08/25 05:33 Last Admin: 02/08/25 05:39 Dose: 2 mls/min Documented By: LISBETH Ioversol (Optiray 320 125ml) 125 ml IV ONCE ONE Stop: 02/08/25 06:34 Last Admin: 02/08/25 06:33 Dose: 118 ml Documented By: GHISLAINE Methylprednisolone (Methylprednisolone 125 Mg/2 Ml Vial) 125 mg IV NOW STA Stop: 02/08/25 04:29 Last Admin: 02/08/25 04:45 Dose: 125 mg Documented By: LISBETH Code Status & VTE Plan Code Status FULL CODE - As per direct d/w the pt and his . Supervising Physician Co-Signing Physician Notes 79-year-old male complicated past medical history of tonsillar carcinoma status post chemotherapy with multiple surgery in the neck region presents to the ED with 1 day history of productive cough through trach site and fever. Patient reports he has been having thick sputum for a while now. Imaging s/o RLL pna. Also noted was patient with anaphylactic reaction after IV Zosyn in the ED, patient was hemodynamically stable at bedside exam. It is noted that patient has successfully used Zosyn in the past. Will use ertapenem, consult pulm. benadryl, steroid and pepcid for next few days post anaphylactic reaction. On exam: Patient on room air, NAD, rhonchi/wheeze x right lung. Rest of the examination as above. Total time spent independently: 21 minutes. I have seen and examined the patient and have discussed the case with the provider above. I agree with the assessment and plan as stated. (1) Pneumonia Laterality: unspecified laterality Lung location: unspecified part of lung Pneumonia type: due to unspecified organism Qualified Code(s): J18.9 - Pneum onia, unspecified organism
--- NOTE | 2025-02-08 07:50 | CT Scan Report ---
EXAM: CT angio chest PE protocol CLINICAL HISTORY: hypoxia, cp, r/o PE TECHNIQUE: Contiguous axial images were obtained from the neck base through the upper abdomen following intravenous administration of iodinated contrast material. Angiographic images were processed, 3D MIP images were acquired for interpretation. If IV contrast material had not been administered, the likelihood of detecting abnormalities relevant to the patient's condition would have been substantially decreased. Coronal and sagittal 3-D MIPs were likewise performed and indicated to increase the sensitivity of detectin diffuse clinically relevant pathology. CT scan was performed according to ALARA (as low as reasonable achievable). COMPARISON: None. FINDINGS: Patchy nodular consolidation is noted involving posterior basal segment of right lower lobe. Few atelectatic bands are noted involving bilateral based posterior basal segments. Small calcified granuloma is noted involving right lower lobe Adequate contrast bolus without evidence of pulmonary embolism. The central airways are patent. Rest of lungs are clear. No pleural effusion. The heart, aorta, and pulmonary arteries are of normal size and configuration. There are no appreciable coronary artery and aortic atherosclerotic calcifications. No pericardial effusion is identified. The thyroid is unremarkable. No mediastinal, hilar, or axillary lymphadenopathy is noted. No suspicious lytic or sclerotic osseous lesions are identified. IMPRESSION: No evidence of pulmonary embolism Patchy nodular consolidation is noted involving posterior basal segment of right lower lobe. -increased Few atelectatic bands are noted involving bilateral based posterior basal segments.-stable. Small calcified granuloma is noted involving right lower lobe-stable. Electronically signed by Walter Seals 02-08-2025 07:50 AM
--- NOTE | 2025-02-08 07:52 | CT Scan Report ---
EXAM: CT head/brain wo con CLINICAL HISTORY: headache TECHNIQUE: Multiple axial images are obtained from the skull base to the vertex without contrast. CT scan was performed according to ALARA (as low as reasonable achievable). COMPARISON: Feb 14:13:41 [employer]HR[employer]OM [employer]ER FINDINGS: Metallic artifact adjacent to the left parietal region limits its evaluation. There is cerebral atrophy. No evidence of space occupying lesion, hemorrhage, edema, mass effect, midline shift, extra axial collection, or hydrocephalus is noted. Basal cisterns are symmetric and normal in size and configuration. There are scattered periventricular hypodensities as can be seen with chronic microvascular ischemic changes. The ferguson-white matter differentiation is preserved. Visualized paranasal sinuses and right mastoid air cells are well aerated. Orbital contents are within normal limits. Opacification of left mastoid air cells with bny defect- postoperative changes along lateral wall of left mastoid bone. Rest of the bony structures are intact. IMPRESSION: 1. No evidence of acute intracranial abnormality is demonstrated. 2. Chronic microvascular ischemic changes.-stable. 3. Cerebral atrophy.-stable. No other new interval abnormality since prior study. Electronically signed by Walter Seals 02-08-2025 07:52 AM
[2025-02-08] MEDS: MAGNESIUM SULFATE / D5W 1 GM/100 ML BAG IV SCH (08:25)
[2025-02-08] MEDS: SODIUM CHLORIDE 0.9% 1,000 ML IV SCH (08:28)
[2025-02-08] MEDS ORDERED: ALBUT/IPRATROP 3MG/0.5MG NEB 3 ML VIAL NEB PRN (08:52)
--- NOTE | 2025-02-08 08:55 | Pulmonary Consultation ---
Date of Consultation February 08, 2025 Assessment & Plan (1) Productive cough: (2) Pneumonia: Laterality: unspecified laterality Lung location: unspecified part of lung Pneumonia type: due to unspecified organism Qualified Code(s): J 18.9 - Pneumonia, unspecified organism (3) SOB (shortness of breath): (4) COPD (chronic obstructive pulmonary disease) with emphysema: (5) Abnormal chest CT: Plan CT chest 07/15/2023 personally reviewed: Right apical pleural scarring Right upper lobe peripheral 3 mm pleural-based pulmonary nodule Patchy opacity in the right lower lobe with nodularity, worse compared to 12/26/2024 Motion degraded study Station 7 mediastinal lymphadenopathy, chronic --Right lower lobe pneumonia Respiratory bio fire negative for everything on 02/08/2025 Nasal MRSA negative, procalcitonin negative Looking back at the CAT scan of the chest it seems that the patient usually gets infection bilateral lower lobes more on the right side Aspiration is high in differential Trach culture from 12/26/2024 showed Enterobacter cloacae complex which was pansensitive Swallow eval was negative for aspiration -- COPD [id number]-[id number] smoking history, quit at the age of 38 Does not seem to be in exacerbation On Stiolto at home I do not think patient has the capacity to take inspiratory breath. He would benefit from nebulized bronchodilators Would recommend Perforomist/Andrés with Renetta at home --Abnormal chest CT The right apical pleural scarring is likely from radiation that he got --History of head and neck cancer S/p resection and radiation 2011 Plan: Even though the procalcitonin is negative, I would recommend to continue with antibiotics for 7-10 days Would recommend repeating a CAT scan of the chest in 4-6 weeks and the patient still has persistent opacities in the lower lobe the bronchoscopy with biopsy could be thought of Continue with upper airway clearance technique with nebulized hypertonic saline Patient is not able to use flutter valve Chest PT would be helpful Nebulized bronchodilators while in the hospital Case was discussed with family, RN as well as primary team I spent more than 75 minutes looking in the chart, images, discussing the plan of care with the patient, RN as well as primary team Please note the above document was generated using voice recognition software. It may contain grammatical, syntax or spelling errors.Any formal questions or concerns about the content, text or information contained within the body of this dictation should be directly addressed to the provider for clarification. History of Present Illness History of Present Illness 79 year-old male presented to the hospital with complaints of cough and shortness of breath Past medical history: Head and neck cancer s/p radical resection of the right neck 2011, s/p radiation, hypothyroidism, hypertension, depression Pulmonary consulted for hemoptysis and abnormal chest CT Patient's as well as friends where in the room at the time of examination who helped with history Patient was recently hospitalized for bilateral pneumonia and was treated with antibiotics Patient recently had some procedure done at [facility] where patient as well as family were told that he cannot ever aspirate He is using Stiolto at home but he does not have a good inspiratory effort I do not think he is getting the medication. Does complain of mild dysuria. No hematuria When he brings up phlegm is mostly clear. Denies any hemoptysis Tmax 99.8. Denies any chills He does eat pured diet from the mouth. No chest pain, no nausea or vomiting No abdominal pain No headache, no blurry vision Complains of some neck pain Social history: [id number] smoking history, quit at the age of 38. 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 Allergies Allergy/AdvReac Type Severity Reaction Status Date / Time piperacillin [From Zosyn] Allergy Severe Unresponsiv Verified 02/08/25 07:56 e tazobactam [From Zosyn] Allergy Severe Unresponsiv Verified 02/08/25 07:56 e levofloxacin Allergy Intermediate rash all Verified 01/03/25 07:02 over body sulfamethoxazole Allergy Intermediate ITCHING/HIVES Verified 01/03/25 07:02 WITH BACTRIM trimethoprim Allergy Intermediate ITCHING/HIVES Verified 01/03/25 07:02 WITH BACTRIM Nitrate Analogues AdvReac Severe DROP IN Verified 01/03/25 07:02 BP/UNCONSCIOUSNESS lisinopril AdvReac Intermediate ELEVATES Verified 01/03/25 07:02 B/P sertraline AdvReac Intermediate NOSE BLEEDS Verified 01/03/25 07:02 tamsulosin AdvReac Intermediate Hypotension Verified 01/03/25 07:02 terazosin AdvReac Intermediate PRIAPRISM Verified 01/03/25 07:[address] [facility] Home Medications Medication Instructions Recorded Confirmed Type citalopram 20 mg tablet 20 mg feeding tube QAM 05/07/18 02/08/25 History latanoprost 0.005 % eye drops 1 drp OPB HS 01/30/19 02/08/25 History acetaminophen 500 mg tablet 1,000 mg feeding tube Q6H PRN Pain 03/06/21 02/08/25 History (Tylenol Extra Strength) atorvastatin 40 mg tablet 40 mg feeding tube QAM 06/02/21 02/08/25 History midodrine 10 mg tablet 10 mg feeding tube TIDM 09/13/24 02/08/25 History albuterol sulfate 2.5 mg/3 mL 2.5 mg inhalation DIRECTED PRN 12/26/24 02/08/25 History (0.083 %) solution for nebulization Shortness Of Breath Or Wheezing aspirin 81 mg tablet,delayed 81 mg feeding tube DAILY 12/26/24 02/08/25 History release bacitracin zinc 500 unit/gram 1 applic topical BID PRN APPLY TO 12/26/24 02/08/25 History topical ointment NECK NEEDED calcium carbonate (Tums E-X) 600 mg feeding tube BID 12/26/24 02/08/25 History clonidine HCl 0.1 mg tablet 0.1 mg feeding tube TID 12/26/24 02/08/25 History cyanocobalamin (vitamin B-12) 1,000 mcg feeding tube DAILY 12/26/24 02/08/25 History 1,000 mcg tablet (Vitamin B-12) tiotropium 2.5 mcg-olodaterol 2.5 2 inh inhalation DAILY 12/26/24 02/08/25 History mcg/actuation mist for inhalation (Stiolto Respimat) acetylcysteine 200 mg/mL (20 %) 5 ml inhalation BID #90 mL 12/29/24 02/08/25 Rx solution ipratropium 0.5 mg-albuterol 3 mg 3 ml NEB BIDR #180 mL 12/29/24 02/08/25 Rx (2.5 mg base)/3 mL nebulization soln sodium chloride 7 % for 4 ml inhalation .BIDR #240 mL 12/29/24 02/08/25 Rx nebulization Patient History Medical History Hematuria Acute pyelonephritis Abnormal CT scan, neck 07/2022 [facility] - "7 mm lytic lesion within the C3 vertebral body." Per , outpt imaging since being d/c from hospital has r/o mets. 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 Degenerative disc disease Osteoarthritis GERD (gastroesophageal reflux disease) Anxiety Asthma rare use of PRN inh Orthostatic hypotension Surgical History History of radical neck dissection S/P percutaneous endoscopic gastrostomy (PEG) tube placement History of neck surgery LUMPECTOMY History of tooth extraction Family History Brother Family history of diabetes mellitus Social History Smoking Status: Former smoker Tobacco Type: Cigarettes Second Hand Exposure: No; Do You Dip or Chew Tobacco: No; Hx Alcohol Use: Yes (Has not drank for "a long time" per .) Alcohol type: beer Hx Substance Use: No Preferred Language: Sammarinese 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 Ability: Impaired 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 Ability Comment: Unable to speak. Customer Service Technician Required: No Beliefs That Will Affect Care: None marital status: Current Living Situation: Spouse Current Living Situation Comment: Personal Home Other Information That Helps Us Care for You: No Feels Safe at Home: Yes Safety Concerns: Feels Safe At This Time Assistive Devices: None Review of Systems 2 Review of Systems: All systems reviewed & are unremarkable except as noted in HPI & below Physical Exam 2 Physical Exam: Constitutional: No acute distress HEENT: EOMI, PERRLA, hard to hear, right neck scar present Respiratory system: Decreased air entry bilaterally, no wheeze, no rhonchi, positive crackles appreciated on the right lower side CVS: S1-S2 positive, no murmurs or gallops Abdomen: Soft, nontender, nondistended, positive bowel sounds x4, positive PEG Extremities: +2 pulses bilaterally radialis/ dorsalis pedis, no cyanosis, no edema Neuro: Awake alert oriented x3 Psych: Normal mood and affect G/U: No Polk Skin: no rashes, warm and dry Lymphatic: no cervical or axillary lymphadenopathy Results & Data Results & Data Vital Signs (Past 12 Hours) Vital Signs Temp Pulse Pulse Resp BP BP Pulse Ox 02/08/25 08:16 72 02/08/25 07:16 86 18 188/107 H 98 02/08/25 06:50 164/84 H 02/08/25 06:46 171/69 H 02/08/25 06:45 86 23 100 02/08/25 06:42 83 22 02/08/25 06:40 143/83 H 02/08/25 06:36 83 19 97 02/08/25 06:35 143/82 H 02/08/25 06:09 24 100 02/08/25 06:06 184/103 H 02/08/25 06:06 184/103 H 02/08/25 06:00 163/79 H 02/08/25 05:50 160/84 H 02/08/25 05:46 160/84 H 02/08/25 05:40 161/79 H 02/08/25 05:35 130/64 02/08/25 05:33 76 33 H 98 02/08/25 05:30 118/59 L 02/08/25 05:27 75 27 H 99 02/08/25 05:25 97/52 L 02/08/25 05:22 88/50 L 02/08/25 05:21 70 23 97 02/08/25 05:20 85/54 L 02/08/25 05:18 73 23 99 02/08/25 05:18 83/46 L 02/08/25 05:17 62/46 L 77 L 02/08/25 05:03 54 L 17 02/08/25 04:51 57 L 20 100 02/08/25 04:45 67 02/08/25 04:42 61 19 95 02/08/25 04:33 64 23 94 02/08/25 04:31 158/91 H 02/08/25 04:08 63 24 97 02/08/25 03:44 38 C H 71 24 115/72 98 O2 Del Method 02/08/25 08:16 02/08/25 07:16 Room Air 02/08/25 06:50 02/08/25 06:46 02/08/25 06:45 Room Air 02/08/25 06:42 02/08/25 06:40 02/08/25 06:36 Room Air 02/08/25 06:35 02/08/25 06:09 Room Air 02/08/25 06:06 02/08/25 06:06 02/08/25 06:00 02/08/25 05:50 02/08/25 05:46 02/08/25 05:40 02/08/25 05:35 02/08/25 05:33 Room Air 02/08/25 05:30 02/08/25 05:27 Room Air 02/08/25 05:25 02/08/25 05:22 02/08/25 05:21 Non-rebreather 02/08/25 05:20 02/08/25 05:18 Non-rebreather 02/08/25 05:18 02/08/25 05:17 Room Air 02/08/25 05:03 02/08/25 04:51 Room Air 02/08/25 04:45 02/08/25 04:42 Room Air 02/08/25 04:33 Room Air 02/08/25 04:31 02/08/25 04:08 Room Air 02/08/25 03:44 Room Air Laboratory Results 02/08/25 04:05 02/08/25 04:05 PG Care Time/CCT Total # of Minutes Spent Total Time Spent with Patient: Total time spent is greater than 50% in coordination of care (as documented) at patient's floor/unit and/or counseling patient: Coding Level of Care Code 15290 INT INP/OBS CARE 3/75MIN Diagnoses Productive cough R05.8 Pneumonia due to infectious organism, unspecified laterality, unspecified part of lung J18.9 Laterality: unspecified laterality Lung location: unspecified part of lung Pneumonia type: due to unspecified organism SOB (shortness of breath) R06.02 COPD (chronic obstructive pulmonary disease) with emphysema J43.[address] R93.89
[2025-02-08] MEDS ORDERED: ALBUTEROL 0.083% NEBU SOLN 3 ML VIAL INH PRN (09:04)
[2025-02-08] MEDS: POTASSIUM CHLORIDE / WTR 10 MEQ/100 ML PLCT IV SCH (09:07)
[2025-02-08] MEDS: ALBUT/IPRATROP 3MG/0.5MG NEB 3 ML VIAL ONE (09:24)
[2025-02-08] MEDS ORDERED: SODIUM CHLOR 7% 4 ML NEB INH SCH (10:45)
[2025-02-08] MEDS ORDERED: POLYETHYLENE (MIRALAX) 17 GM PACK PO PRN (11:25)
[2025-02-08] MEDS ORDERED: ACETAMINOPHEN 325 MG TAB PO PRN (11:25)
[2025-02-08] MEDS ORDERED: MAGNESIUM HYDROXIDE SUSP 30 ML UDC PO PRN (11:25)
[2025-02-08] MEDS: ATORVASTATIN 40 MG TAB PO SCH (12:02)
[2025-02-08] MEDS: CITALOPRAM 20 MG TAB PO SCH (12:02)
[2025-02-08] MEDS: MIDODRINE HCL 10 MG TAB PO SCH (12:02)
[2025-02-08] MEDS: CALCIUM CARBONATE 500 MG CHEWABLE TAB PO SCH (12:02)
[2025-02-08] MEDS: ASPIRIN 81 MG ECTAB PO SCH (12:03)
[2025-02-08] MEDS: CYANOCOBALAMIN (B-12) 500 MCG TABLET PO SCH (12:03)
[2025-02-08] MEDS ORDERED: methylPREDNISolone 10 mg/mL (For Ped Dose < 7mg) IV SCH (14:00)
[2025-02-08] MEDS: UMECLIDINIUM BROMIDE 62.5MCG/BLISTER 7 PUFFS/INHALER INH SCH (14:30)
[2025-02-08] MEDS: POTASSIUM CHLORIDE 20 MEQ/15 ML UDC PO STA (14:30)
[2025-02-08] MEDS: HEPARIN SOD 5,000 UNIT/0.5 ML VIAL SQ SCH (14:36)
--- NOTE | 2025-02-08 15:22 | Fluoroscopy Report ---
FL video swallow CLINICAL HISTORY: r/o aspiration. TECHNIQUE: Video fluoroscopic evaluation of swallowing was performed in the AP and lateral projection s by the speech pathology staff. The patient is fed nectar-thick and thin liquid barium, a barium coa laney wafer, and barium pudding. FLUOROSCOPY TIME: 1 minute 33 seconds. COMPARISON: None FINDINGS: There is no evidence of aspiration with any barium consistency. IMPRESSION: No aspiration seen. ACT 112: Negative or not required by law. Electronically signed by: Chepe Sandoval M.D. 02/08/2025 3:21 PM
[2025-02-08] MEDS ORDERED: diphenhydrAMINE 50 MG/ML VIAL IV PRN (15:57)
[2025-02-08] MEDS: FORMOTEROL 20 MCG/2 ML VIAL INH SCH (20:05)
[2025-02-08] MEDS: ACETYLCYSTEINE 20% INHAL SOLN 4ML ***DISPENSED BY RESP. INH SCH (20:05)
[2025-02-08] MEDS: SODIUM CHLOR 7% 4 ML NEB INH SCH (20:06)
[2025-02-08] MEDS: ALBUT/IPRATROP 3MG/0.5MG NEB 3 ML VIAL NEB SCH (20:06)
[2025-02-08] MEDS: BUDESONIDE 0.25 MG/2 ML VIAL (PULMICORT) NEB SCH (20:06)
[2025-02-08] MEDS: FAMOTIDINE 20 MG TAB PO SCH (21:11)
[2025-02-08] MEDS: LATANOPROST 0.005% OP SOLN 2.5 ML BTL OPB SCH (21:59)
[2025-02-09] MEDS: ERTAPENEM 1000MG 1,000 MG/10 ML SYR IV SCH (05:52)
[2025-02-09 07:15] LABS: Hematocrit (blood only) 35.1 % (42.0-52.0); Hemoglobin 11.7 g/dl (14.0-18.0); Mean Corpuscular Hemoglobin 31.5 pg (25.0-34.0); Mean Corpuscular Volume 94.4 fL (80.0-100.0); Platelet Count 158 K/uL (130-400); RDW Standard Deviation 49.4 fL (36.4-46.3); Red Blood Count 3.72 M/uL (4.70-6.10); White Blood Count 18.44 K/ul (4.8-10.8)
[2025-02-09 07:56] LABS: Alanine Aminotransferase 8.0 U/L (7-52); Albumin Globulin Ratio 1.3 (0.9-2); Alkaline Phosphatase 65.0 U/L (34-104); Anion Gap 5.0 (3-11); Bilirubin,Total 0.5 mg/dl (0.2-1.0); Blood Urea Nitrogen 20.0 mg/dl (6-23); Calcium 8.3 mg/dl (8.6-10.3); Carbon Dioxide 24.0 mmol/L (21-32); Chloride 110.0 mmol/L (98-107); Creatinine Clr Calc Pharmacy 77.5 ml/min; Globulin 2.6 gm/dl (2.5-4.0); Glucose 140.0 mg/dl (70-99(Fasting)); Magnesium 2.3 mg/dl (1.7-2.4); Potassium 4.5 mmol/L (3.5-5.1); Sodium 139.0 mmol/L (136-145); Total Protein 6.1 gm/dl (6.0-8.3)
[2025-02-09 08:04] LABS: Immature Granulocytes # (auto) 0.33 K/uL (0.01-0.20); Immature Granulocytes % (auto) 1.8 %
--- NOTE | 2025-02-09 08:15 | Pulmonology Progress Note ---
Date of Service February 09, 2025 Assessment & Plan (1) Productive cough: (2) Pneumonia: Laterality: unspecified laterality Lung location: unspecified part of lung Pneumonia type: due to unspecified organism Qualified Code(s): J 18.9 - Pneumonia, unspecified organism (3) SOB (shortness of breath): (4) COPD (chronic obstructive pulmonary disease) with emphysema: (5) Abnormal chest CT: Plan CT chest 07/15/2023 personally reviewed: Right apical pleural scarring Right upper lobe peripheral 3 mm pleural-based pulmonary nodule Patchy opacity in the right lower lobe with nodularity, worse compared to 12/26/2024 Motion degraded study Station 7 mediastinal lymphadenopathy, chronic --Right lower lobe pneumonia Respiratory bio fire negative for everything on 02/08/2025 Nasal MRSA negative, procalcitonin negative Looking back at the CAT scan of the chest it seems that the patient usually gets infection bilateral lower lobes more on the right side Aspiration is high in differential Trach culture from 12/26/2024 showed Enterobacter cloacae complex which was pansensitive Swallow eval was negative for aspiration -- COPD [id number] smoking history, quit at the age of 38 Does not seem to be in exacerbation On Stiolto at home I do not think patient has the capacity to take inspiratory breath. He would benefit from nebulized bronchodilators Would recommend Gabrielomist/Andrés with Renetta at home --Abnormal chest CT The right apical pleural scarring is likely from radiation that he got --History of head and neck cancer S/p resection and radiation 2011 Plan: Even though the procalcitonin is negative, I would recommend to continue with antibiotics for 7-10 days with atypical coverage Would recommend repeating a CAT scan of the chest in 4-6 weeks and the patient still has persistent opacities in the lower lobe the bronchoscopy with biopsy could be thought of Continue with upper airway clearance technique with nebulized hypertonic saline Patient is not able to use flutter valve Chest vest has been added to the patient's regimen which will be helpful Nebulized bronchodilators while in the hospital and also on discharge Case was discussed with patient's as well as primary team Please note the above document was generated using voice recognition software. It may contain grammatical, syntax or spelling errors.Any formal questions or concerns about the content, text or information contained within the body of this dictation should be directly addressed to the provider for clarification. Admission and Anticipated Discharge Date Admission Date: February 08, 2025 Subjective Patient seen and examined at bedside. No acute distress, no adverse events overnight Patient's is in the room He has been feeling well Still not bringing up much phlegm. Denies any nausea or vomiting Has been afebrile Review of Systems 2 Review of Systems: All systems reviewed & are unremarkable except as noted in Subjective Physical Exam 2 Physical Exam: Constitutional: No acute distress HEENT: EOMI, PERRLA, hard to hear, right neck scar present Respiratory system: Decreased air entry bilaterally, no wheeze, no rhonchi, positive crackles appreciated on the right lower side CVS: S1-S2 positive, no murmurs or gallops Abdomen: Soft, nontender, nondistended, positive bowel sounds x4, positive PEG Extremities: +2 pulses bilaterally radialis/ dorsalis pedis, no cyanosis, no edema Neuro: Awake alert oriented x3 Psych: Normal mood and affect G/U: No Polk Skin: no rashes, warm and dry Lymphatic: no cervical or axillary lymphadenopathy Results & Data Results & Data Vital Signs (Past 12 Hours) Vital Signs Temp Pulse Pulse Resp BP Pulse Ox O2 Del Method 02/09/25 07:25 36.4 C L 59 L 20 117/63 100 Room Air 02/09/25 07:04 59 L 18 98 Room Air 02/09/25 03:16 36.8 C 61 18 149/73 H 96 Room Air 02/08/25 22:50 36.7 C 63 18 116/68 97 Room Air 02/08/25 21:41 63 Laboratory Results 02/09/25 06:39 02/09/25 06:39 PG Care Time/CCT Total # of Minutes Spent Total Time Spent with Patient: Total time spent is greater than 50% in coordination of care (as documented) at patient's floor/unit and/or counseling patient: Coding Level of Care Code 42299 SUB INP/OBS CARE 2/35MIN Diagnoses Productive cough R05.8 Pneumonia due to infectious organism, unspecified laterality, unspecified part of lung J18.9 Laterality: unspecified laterality Lung location: unspecified part of lung Pneumonia type: due to unspecified organism SOB (shortness of breath) R06.02 COPD (chronic obstructive pulmonary disease) with emphysema J43.[address] R93.89
--- NOTE | 2025-02-09 11:22 | Hospitalist Progress Note ---
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 Pt previously admitted under our service last month due to acute hypoxic respiratory failure and possible aspiration pneumonitis vs possible mucous plug. Pt was treated with IV ertapenem at that time after sputum culture grew Enterobacter cloacae complex. #RLL PNA Resp Biofire negative, procalcitonin negative; nasal MRSA negative Chest CTA: patchy nodular consolidation is noted involving posterior basal segment of RLL - increased Per pt's , pt is supposed to not be able to aspirate following his laryngectomy. Upon chart review, there is a note from Dr. Gentile ([facility] [place] [facility]) from an office visit on 01/02/25 that states "...he cannot aspirate for the record after the laryngectomy." Case d/w GASKET NOTCHER; underwent VFSS on 02/08 = no evidence of aspiration w/ any barium consistency Suspect PNA development 2/2 poor airway clearance ISO tracheostomy status Continue pured diet which pt continues to tolerate well Pulm consulted given PNA recurrence w/ following recs: -Continue ABX for 7-10 days -Repeat CT chest in 4-6wks --> if opacity persist, bronchoscopy w/ biopsy could be considered -Recommend Perforomist/Andrés with Peeweei at home --> d/w pt's ; will need to check to see if covered w/ insurance WBC 18k today --> ISO PNA, ? secondary response related to anaphylactic event --> monitor WBC trend Continue IV ertapenem, blood cxs w/ NGTD; obtain sputum cx as able C/w airway clearance therapy w/ hypertonic nebs, Mucomyst, Duonebs and Mucinex #Anaphylaxis following IV Zosyn administration in the ED Pt developed diffuse blanchable erythema, pruritus following administration of IV Zosyn in the ED Pt also was hypoxic with O2 sat down to 77% requiring nonrebreather application, severely hypotension and bradycardic -Pt was initially called a CODE BLUE due to severe hypotension and bradycardia but thankfully he never arrested -0.3mg IM epinephrine, IVF, IV Benadryl, IV Solu-Medrol and IV famotidine promptly administered --> pt responded well w/ rapid VS stabilization Pt w/ faint wheezing on exam in ED following anaphylactic event -IV Solu-Medrol 40mg Q8H started initially given residual wheezing, risk of potential biphasic sx -Wheezing now resolved; pt still saturating well on RA --> IV Solu-Medrol discontinued #Lactic acidosis -- resolved Not meeting sepsis criteria on admission; however pt was febrile w/ Tmax of 38C in ED Initial lactate 2.4 --> 1st repeat lactate 6.7 (drawn following anaphylactic event); Worsening lactic acidosis 2/2 hypotension, bradycardia during anaphylactic event --> lactate now normalized s/p IVF #History of 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 #History of hygienic total laryngectomy with L ALT free flap reconstruction and primary TEP placement in 06/2024 Pt tolerates pured diet at home per his ; routine tracheostomy care Reportedly there is discussion regarding the removal of his PEG tube per pt's ; pt does not receive any supplementation via PEG tube #History of orthostatic hypotension BP still on lower side this AM --> continue midodrine, hold clonidine Closely monitor BP, fall precautions #Hypophosphatemia Phos 1.6; will replete orally, follow repeat labs in AM DVT Prophylaxis: Heparin SQ PCP: Sanjiv Hart MD Disposition: Possible d/c over the weekend depending on clinical course, PT/OT evals Patient seen in collaboration with Dr. Guillen. Please see addendum. I spent a total of 42 minutes coordinating, documenting, and providing care for this patient excluding time spent in the performance of separately billed services or time spent by another provider/QHP. This included personally reviewing all current laboratories and imaging studies, medical reconciliation, outpatient chart review and discussion with specialists. This chart was completed in part utilizing Speech Voice Recognition Software. Grammatical errors, random word insertions, pronoun errors, and incomplete sentences are an occasional consequence of this system due to software limitations, ambient noise, and hardware issues. Any formal questions or concerns about the content, text, or information contained within the body of this dictation should be directly addressed to the provider for clarification. Admission and Anticipated Discharge Date Admission Date: February 08, 2025 Supervising Physician Co-Signing Physician Notes 79-year-old male complicated past medical history of tonsillar carcinoma status post chemotherapy with multiple surgery in the neck region presented to the ED with 1 day history of productive cough through trach site and fever. Patient reports he has been having thick sputum for a while now [employer]. Imaging s/o RLL pna. Also noted was patient with anaphylactic reaction after IV Zosyn in the ED, patient was hemodynamically stable sooner w/ Rx in ED. It is noted that patient has successfully used Zosyn in the past. C/w ertapenem for rll pna. benadryl, steroid and pepcid for next few days post anaphylactic reaction. appreciate pulm recs. On exam: Patient on room air, NAD, rll crackles. Rest of the examination as above. Total time spent independently: 17 minutes. I have seen and examined the patient and have discussed the case with the provider above. I agree with the assessment and plan as stated. Subjective Patient seen and examined in E219-1. at bedside. NAEO. Still having some thick, white phlegm production but no reported SOB or chest pain. Review of Systems Review of Systems: At least ten systems reviewed and negative, except as noted in the subjective section. Physical Exam Physical Exam: General: Elderly M, chronically ill-appearing/cachectic, YOCHA DEHE, faint voice s/p surgery, sitting up in bed, A&Ox3, NAD, at bedside (helps w/ communication) HEENT: Normocephalic, atraumatic, external ear and nose normal, oropharynx dry, tracheostomy present (C/D, no drainage) Respiratory: Normal respiratory effort, trace rhonchi in RLL, no wheezing, s aturating on RA Cardiovascular: RRR, no BLE edema, normal peripheral pulses Abdomen/GI: Active bowel sounds, soft, PEG tube present (C/D, no surrounding erythema/drainage), nontender to palpation in all quadrants Extremities/MSK: No cyanosis or clubbing, extremities motor strength intact, moves all extremities Neurologic: No overt focal deficits, CN's II-XI not formally tested but appear grossly intact bilaterally Results & Data Results & Data Vital Signs (Past 12 Hours) Vital Signs Temp Pulse Resp BP Pulse Ox O2 Del Method 02/09/25 07:25 36.4 C L 59 L 20 117/63 100 Room Air 02/09/25 07:04 59 L 18 98 Room Air 02/09/25 03:16 36.8 C 61 18 149/73 H 96 Room Air Laboratory Results Short CBC 02/09/25 Range/Units 06:39 WBC 18.44 H (4.8-10.8) K/ul Hgb 11.7 L (14.0-18.0) g/dl Hct 35.1 L (42.0-52.0) % Plt Count 158 (130-400) K/uL BMP 02/09/25 06:39 Sodium 139 Potassium 4.5 D Chloride 110 H Carbon Dioxide 24 BUN 20 Creatinine 0.85 Glucose 140 H Calcium 8.3 L Liver Function 02/09/25 Range/Units 06:39 Total Bilirubin 0.5 D (0.2-1.0) mg/dl AST 13 (13-39) U/L ALT 8 (7-52) U/L Alkaline Phosphatase 65 (34-104) U/L Albumin 3.5 (3.4-5.0) gm/dl (1) Pneumonia Laterality: unspecified laterality Lung location: unspecified part of lung Pneumonia type: due to unspecified organism Qualified Code(s): J18.9 - Pneumonia, unspecified organism
[2025-02-09] MEDS: POT PHOSPHATE MONOBASIC W/ SOD TAB PO SCH (12:48)
--- NOTE | 2025-02-10 05:45 | Electrocardiogram Report ---
Test Reason : Blood Pressure : */* mmHG Vent. Rate : 64 BPM Atrial Rate : 64 BPM P-R Int : 142 ms QRS Dur : 88 ms QT Int : 442 ms P-R-T Axes : 42 -47 46 degrees QTcB Int : 455 ms Normal sinus rhythm Left anterior fascicular block Abnormal ECG When compared with ECG of 27-Dec-2024 07:30, No significant change Confirmed by Cipriano Stark ([id number]) on 02/10/2025 5:45:07 AM Referred By: REFERRED SELF Confirmed By: Cipriano Stark
[2025-02-10 06:44] LABS: Hematocrit (blood only) 31.7 % (42.0-52.0); Hemoglobin 10.8 g/dl (14.0-18.0); Immature Granulocytes # (auto) 0.18 K/uL (0.01-0.20); Immature Granulocytes % (auto) 1.2 %; Mean Corpuscular Hemoglobin 32.3 pg (25.0-34.0); Mean Corpuscular Volume 94.9 fL (80.0-100.0); Platelet Count 140 K/uL (130-400); RDW Standard Deviation 50.0 fL (36.4-46.3); Red Blood Count 3.34 M/uL (4.70-6.10); White Blood Count 15.39 K/ul (4.8-10.8)
[2025-02-10 07:21] LABS: Anion Gap 6.0 (3-11); Calcium 8.2 mg/dl (8.6-10.3); Carbon Dioxide 25.0 mmol/L (21-32); Chloride 110.0 mmol/L (98-107); Magnesium 2.3 mg/dl (1.7-2.4); Potassium 3.9 mmol/L (3.5-5.1); Sodium 141.0 mmol/L (136-145)
[2025-02-10 07:27] LABS: Blood Urea Nitrogen 27.0 mg/dl (6-23); Creatinine Clr Calc Pharmacy 74.0 ml/min; Glucose 97.0 mg/dl (70-99(Fasting))
--- NOTE | 2025-02-10 08:13 | Pulmonology Progress Note ---
Date of Service February 10, 2025 Assessment & Plan (1) Productive cough: (2) Pneumonia: Laterality: unspecified laterality Lung location: unspecified part of lung Pneumonia type: due to unspecified organism Qualified Code(s): J 18.9 - Pneumonia, unspecified organism (3) SOB (shortness of breath): (4) COPD (chronic obstructive pulmonary disease) with emphysema: (5) Abnormal chest CT: Plan CT chest 07/15/2023 personally reviewed: Right apical pleural scarring Right upper lobe peripheral 3 mm pleural-based pulmonary nodule Patchy opacity in the right lower lobe with nodularity, worse compared to 12/26/2024 Motion degraded study Station 7 mediastinal lymphadenopathy, chronic --Right lower lobe pneumonia Respiratory bio fire negative for everything on 02/08/2025 Nasal MRSA negative, procalcitonin negative Looking back at the CAT scan of the chest it seems that the patient usually gets infection bilateral lower lobes more on the right side Aspiration is high in differential Trach culture from 12/26/2024 showed Enterobacter cloacae complex which was pansensitive Swallow eval was negative for aspiration -- COPD [id number] smoking history, quit at the age of 38 Does not seem to be in exacerbation On Stiolto at home I do not think patient has the capacity to take inspiratory breath. He would benefit from nebulized bronchodilators Would recommend Gabrielomist/Andrés with Renetta at home --Abnormal chest CT The right apical pleural scarring is likely from radiation that he got --History of head and neck cancer S/p resection and radiation 2011 Plan: Even though the procalcitonin is negative, I would recommend to continue with antibiotics for 7-10 days with atypical coverage Would recommend repeating a CAT scan of the chest in 4-6 weeks and the patient still has persistent opacities in the lower lobe the bronchoscopy with biopsy could be thought of Trach culture negative to date Continue with upper airway clearance technique with nebulized hypertonic saline Patient is not able to use flutter valve Chest vest has been added to the patient's regimen which will be helpful Nebulized bronchodilators while in the hospital and also on discharge Case was discussed with patient's as well as primary team No further recommendation from pulmonary perspective, will sign off Please call directly with any questions Please note the above document was generated using voice recognition software. It may contain grammatical, syntax or spelling errors.Any formal questions or concerns about the content, text or information contained within the body of this dictation should be directly addressed to the provider for clarification. Admission and Anticipated Discharge Date Admission Date: February 08, 2025 Subjective Patient seen and examined at bedside. No acute distress, no adverse events overnight Patient's is in the room He was sleeping comfortably when I entered the room. Coughing up, not bringing up any phlegm Denies any nausea or vomiting Has been eating through mouth. Review of Systems 2 Review of Systems: All systems reviewed & are unremarkable except as noted in Subjective Physical Exam 2 Physical Exam: Constitutional: No acute distress HEENT: EOMI, PERRLA, hard to hear, right neck scar present, positive LaryTube Respiratory system: Decreased air entry bilaterally, no wheeze, no rhonchi, positive crackles appreciated on the right lower side CVS: S1-S2 positive, no murmurs or gallops Abdomen: Soft, nontender, nondistended, positive bowel sounds x4, positive PEG Extremities: +2 pulses bilaterally radialis/ dorsalis pedis, no cyanosis, no edema Neuro: Awake alert oriented x3 Psych: Normal mood and affect G/U: No [place] Skin: no rashes, warm and dry Lymphatic: no cervical or axillary lymphadenopathy Results & Data Results & Data Vital Signs (Past 12 Hours) Vital Signs Temp Pulse Pulse Resp BP Pulse Ox O2 Del Method 02/10/25 07:27 36.5 C 53 L 16 124/63 100 Nebulizer 02/10/25 07:11 55 L 20 98 Room Air 02/10/25 03:16 36.7 C 54 L 18 160/86 H 99 Room Air 02/09/25 23:11 36.8 C 59 L 18 160/77 H 99 Room Air 02/09/25 21:50 55 L 02/09/25 21:15 Room Air Laboratory Results 02/10/25 05:48 02/10/25 05:48 PG Care Time/CCT Total # of Minutes Spent Total Time Spent with Patient: Total time spent is greater than 50% in coordination of care (as documented) at patient's floor/unit and/or counseling patient: Coding Level of Care Code 64862 SUB INP/OBS CARE 2/35MIN Diagnoses Productive cough R05.8 Pneumonia due to infectious organism, unspecified laterality, unspecified part of lung J18.9 Laterality: unspecified laterality Lung location: unspecified part of lung Pneumonia type: due to unspecified organism SOB (shortness of breath) R06.02 COPD (chronic obstructive pulmonary disease) with emphysema J43.[address] R93.89
--- NOTE | 2025-02-10 09:13 | Hospitalist Progress Note ---
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 Pt previously admitted under our service last month due to acute hypoxic respiratory failure and possible aspiration pneumonitis vs possible mucous plug. Pt was treated with IV ertapenem at that time after sputum culture grew Enterobacter cloacae complex. 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 I spent a total of 35 minutes coordinating, documenting, and providing care for this patient excluding time spent in the performance of separately billed services or time spent by another provider/QHP. This included personally reviewing all current laboratories and imaging studies, medical reconciliation, outpatient chart review and discussion with specialists. Admission and Anticipated Discharge Date Admission Date: February 08, 2025 Supervising Physician Co-Signing Physician Notes 79-year-old male complicated past medical history of tonsillar carcinoma status post chemotherapy with multiple surgery in the neck region presented to the ED with 1 day history of productive cough through trach site and fever. 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 Imaging s/o RLL pna. Also noted was patient with anaphylactic reaction after IV Zosyn in the ED, patient was hemodynamically stable sooner w/ Rx in ED. It is noted that pat ient has successfully used Zosyn in the past. Now it is in severe allergy list. C/w ertapenem for rll pna. Pulm agrees, recommends atypical coverage, doxy added 02/10. Has been stable post anaphylactic reaction rx. appreciate pulm recs. On exam: Patient on room air, NAD, rll crackles. Rest of the examination as above. Total time spent independently: 17 minutes. I have seen and examined the patient and have discussed the case with the provider above. I agree with the assessment and plan as stated. Subjective Patient seen and examined. No apparent distress. Denies any chest pain or shortness of breath. Denies any abdominal pain. Anxious for discharge home. Review of Systems Review of Systems: All systems reviewed & are unremarkable except as noted in HPI & below Physical Exam Physical Exam: General: Elderly M, chronically ill-appearing/cachectic, [place], faint voice s/p surgery, sitting up in bed, A&Ox3, NAD, at bedside (helps w/ communication) HEENT: Normocephalic, atraumatic, external ear and nose normal, oropharynx dry, tracheostomy present (C/D, no drainage) Respiratory: Normal respiratory effort, trace rhonchi in RLL, no wheezing, saturating on RA Cardiovascular: RRR, no BLE edema, normal peripheral pulses Abdomen/GI: Active bowel sounds, soft, PEG tube present (C/D, no surrounding erythema/drainage), nontender to palpation in all quadrants Extremities/MSK: No cyanosis or clubbing, extremities motor strength intact, moves all extremities Neurologic: No overt focal deficits, CN's II-XI not formally tested but appear grossly intact bilaterally Results & Data Results & Data Vital Signs (Past 12 Hours) Vital Signs Temp Pulse Pulse Resp BP Pulse Ox O2 Del Method 02/10/25 07:27 36.5 C 53 L 16 124/63 100 Nebulizer 02/10/25 07:11 55 L 20 98 Room Air 02/10/25 03:16 36.7 C 54 L 18 160/86 H 99 Room Air 02/09/25 23:11 36.8 C 59 L 18 160/77 H 99 Room Air 02/09/25 21:50 55 L 02/09/25 21:15 Room Air Diagnostic Findings Laboratory Results WBC 15.39 K/ul (4.8-10.8) H 02/10/25 05:48 RBC 3.34 M/uL (4.70-6.10) L 02/10/25 05:48 Hgb 10.8 g/dl (14.0-18.0) L 02/10/25 05:48 Hct 31.7 % (42.0-52.0) L 02/10/25 05:48 MCV 94.9 fL (80.0-100.0) 02/10/25 05:48 MCH 32.3 pg (25.0-34.0) 02/10/25 05:48 MCHC 34.1 g/dL (32.0-36.0) 02/10/25 05:48 RDW Std Deviation 50.0 fL (36.4-46.3) H 02/10/25 05:48 RDW Coeff of Judy 14.3 % (11.5-14.5) 02/10/25 05:48 Plt Count 140 K/uL (130-400) 02/10/25 05:48 MPV 11.4 fL (9.4-12.4) 02/10/25 05:48 Immature Gran % (Auto) 1.2 % 02/10/25 05:48 Neut % (Auto) 85.9 % 02/10/25 05:48 Lymph % (Auto) 6.2 % 02/10/25 05:48 [place] % (Auto) 6.6 % 02/10/25 05:48 Eos % (Auto) 0.0 % 02/10/25 05:48 Baso % (Auto) 0.1 % 02/10/25 05:48 Neut # (Auto) 13.22 K/uL (1.40-6.50) H 02/10/25 05:48 Lymph # (Auto) 0.96 K/uL (1.20-3.40) L 02/10/25 05:48 [place] # (Auto) 1.01 K/uL (0.11-0.59) H 02/10/25 05:48 Eos # (Auto) 0.00 K/uL (0.00-0.50) 02/10/25 05:48 Baso # (Auto) 0.02 K/uL (0.00-0.20) 02/10/25 05:48 Immature Gran # (Auto) 0.18 K/uL (0.01-0.20) 02/10/25 05:48 PT 11.5 Seconds (9.0-12.0) 02/08/25 04:05 INR 1.1 (0.9-1.1) 02/08/25 04:05 VBG pH 7.51 (7.36-7.41) H 02/08/25 04:20 VBG pCO2 34 mmHg (38-50) L 02/08/25 04:20 VBG pO2 37 mmHg 02/08/25 04:20 VBG HCO3 27 mmol/L 02/08/25 04:20 VBG O2 Saturation 74.3 % 02/08/25 04:20 VBG Base Excess 4.3 mEq/L 02/08/25 04:20 Sodium 141 mmol/L (136-145) 02/10/25 05:48 Potassium 3.9 mmol/L (3.5-5.1) 02/10/25 05:48 Chloride 110 mmol/L (98-107) H 02/10/25 05:48 Carbon Dioxide 25 mmol/L (21-32) 02/10/25 05:48 Anion Gap 6 (3-11) 02/10/25 05:48 BUN 27 mg/dl (6-23) H 02/10/25 05:48 Creatinine 0.89 mg/dl (0.6-1.4) 02/10/25 05:48 Est Cr Clr Drug Dosing 74.0 ml/min 02/10/25 05:48 eGFR 88.26 02/10/25 05:48 BUN/Creatinine Ratio 30.3 (10-20) H 02/10/25 05:48 Glucose 97 mg/dl (70-99(Fasting)) 02/10/25 05:48 POC Glucose 145 mg/dl (70-99) H 02/08/25 03:58 Lactate 1.8 mmol/L (0.4-2.0) 02/09/25 07:37 Calcium 8.2 mg/dl (8.6-10.3) L 02/10/25 05:48 Phosphorus 2.3 mg/dl (2.5-4.9) L 02/10/25 05:48 Magnesium 2.3 mg/dl (1.7-2.4) 02/10/25 05:48 Total Bilirubin 0.5 mg/dl (0.2-1.0) D 02/09/25 06:39 Direct Bilirubin 0.2 mg/dl (0-0.2) 02/08/25 04:05 AST 13 U/L (13-39) 02/09/25 06:39 ALT 8 U/L (7-52) 02/09/25 06:39 Alkaline Phosphatase 65 U/L (34-104) 02/09/25 06:39 Troponin I High Sens 10.8 pg/ml (0-20) 02/08/25 04:05 Total Protein 6.1 gm/dl (6.0-8.3) 02/09/25 06:39 Albumin 3.5 gm/dl (3.4-5.0) 02/09/25 06:39 Globulin 2.6 gm/dl (2.5-4.0) 02/09/25 06:39 Albumin/Globulin Ratio 1.3 (0.9-2) 02/09/25 06:39 Lipase 19 U/L (11-82) 02/08/25 04:05 Procalcitonin < 0.02 ng/ml (0-0.5) 02/08/25 04:05 Urine Color Yellow 02/08/25 06:44 Urine Appearance Clear (Clear) 02/08/25 06:44 Urine pH 7.5 (4.5-7.5) 02/08/25 06:44 Ur Specific [place] 1.011 (1.000-1.030) 02/08/25 06:44 Urine Protein Negative (Negative) 02/08/25 06:44 Urine Glucose (UA) Trace (Negative) H 02/08/25 06:44 Urine Ketones Trace (Negative) H 02/08/25 06:44 Urine Blood Negative (Negative) 02/08/25 06:44 Urine Nitrite Negative (Negative) 02/08/25 06:44 Urine Bilirubin Negative (Negative) 02/08/25 06:44 Urine Urobilinogen Negative (Negative) 02/08/25 06:44 Ur Leukocyte Esterase Negative (Negative) 02/08/25 06:44 Urine Comment 02/08/25 06:44 Nasal Screen MRSA (PCR) Negative (Negative) 02/08/25 04:09 Adenovirus (PCR) Not Detected (NotDetected) 02/08/25 04:09 B. pertussis DNA (PCR) Not Detected (NotDetected) 02/08/25 04:09 B.parapertussis DNA PCR Not Detected (NotDetected) 02/08/25 04:09 C. pneumoniae DNA (PCR) Not Detected (NotDetected) 02/08/25 04:09 Coronavirus OC43 (PCR) Not Detected (NotDetected) 02/08/25 04:09 Coronavirus HKU1 (PCR) Not Detected (NotDetected) 02/08/25 04:09 Coronavirus 229E (PCR) Not Detected (NotDetected) 02/08/25 04:09 SARS-CoV-2 (PCR) Not Detected (NotDetected) 02/08/25 04:09 Coronavirus NL63 (PCR) Not Detected (NotDetected) 02/08/25 04:09 Human Metapneumovir PCR Not Detected (NotDetected) 02/08/25 04:09 Influenza Type A (PCR) Not Detected (NotDetected) 02/08/25 04:09 Influenza Type B (PCR) Not Detected (NotDetected) 02/08/25 04:09 M. pneumoniae (PCR) Not Detected (NotDetected) 02/08/25 04:09 Parainfluenza 1 (PCR) Not Detected (NotDetected) 02/08/25 04:09 Parainfluenza 2 (PCR) Not Detected (NotDetected) 02/08/25 04:09 Parainfluenza 3 (PCR) Not Detected (NotDetected) 02/08/25 04:09 Parainfluenza 4 (PCR) Not Detected (NotDetected) 02/08/25 04:09 RSV (PCR) Not Detected (NotDetected) 02/08/25 04:09 Entero/Rhino (PCR) Not Detected (NotDetected) 02/08/25 04:09 Impressions Chest X-Ray 02/08/25 03:53 EXAM: XR chest 1V portable CLINICAL HISTORY: Sepsis TECHNIQUE: Radiograph of chest was acquired. COMPARISON: CR dated 12/26/2024 02:10:00 CORROSION CONTROL FITTER. FINDINGS: The lungs are clear and well-expanded with no pulmonary infiltrate or pleural effusion. The cardiomediastinal silhouette is within normal limits. No acute osseous abnormality. IMPRESSION: 1. No acute cardiopulmonary disease. Electronically signed by Walter Seals 02-08-2025 05:52 AM Chest CTA 02/08/25 05:33 EXAM: CT angio chest PE protocol CLINICAL HISTORY: hypoxia, cp, r/o PE TECHNIQUE: Contiguous axial images were obtained from the neck base through the upper abdomen following intravenous administration of iodinated contrast material. Angiographic images were processed, 3D MIP images were acquired for interpretation. If IV contrast material had not been administered, the likelihood of detecting abnormalities relevant to the patient's condition would have been substantially decreased. Coronal and sagittal 3-D MIPs were likewise performed and indicated to increase the sensitivity of detectin diffuse clinically relevant pathology. CT scan was performed according to ALARA (as low as reasonable achievable). COMPARISON: None. FINDINGS: Patchy nodular consolidation is noted involving posterior basal segment of right lower lobe. Few atelectatic bands are noted involving bilateral based posterior basal segments. Small calcified granuloma is noted involving right lower lobe Adequate contrast bolus without evidence of pulmonary embolism. The central airways are patent. Rest of lungs are clear. No pleural effusion. The heart, aorta, and pulmonary arteries are of normal size and configuration. There are no appreciable coronary artery and aortic atherosclerotic calcifications. No pericardial effusion is identified. The thyroid is unremarkable. No mediastinal, hilar, or axillary lymphadenopathy is noted. No suspicious lytic or sclerotic osseous lesions are identified. IMPRESSION: No evidence of pulmonary embolism Patchy nodular consolidation is noted involving posterior basal segment of right lower lobe. -increased Few atelectatic bands are noted involving bilateral based posterior basal segments.-stable. Small calcified granuloma is noted involving right lower lobe-stable. Electronically signed by Walter Seals 02-08-2025 07:[address] 02/08/25 05:33 EXAM: CT head/brain wo con CLINICAL HISTORY: headache TECHNIQUE: Multiple axial images are obtained from the skull base to the vertex without contrast. CT scan was performed according to ALARA (as low as reasonable achievable). COMPARISON: Feb 14:13:41 CORROSION CONTROL FITTER FINDINGS: Metallic artifact adjacent to the left parietal region limits its evaluation. There is cerebral atrophy. No evidence of space occupying lesion, hemorrhage, edema, mass effect, midline shift, extra axial collection, or hydrocephalus is noted. Basal cisterns are symmetric and normal in size and configuration. There are scattered periventricular hypodensities as can be seen with chronic microvascular ischemic changes. The ferguson-white matter differentiation is preserved. Visualized paranasal sinuses and right mastoid air cells are well aerated. Orbital contents are within normal limits. Opacification of left mastoid air cells with bny defect- postoperative changes along lateral wall of left mastoid bone. Rest of the bony structures are intact. IMPRESSION: 1. No evidence of acute intracranial abnormality is demonstrated. 2. Chronic microvascular ischemic changes.-stable. 3. Cerebral atrophy.-stable. No other new interval abnormality since prior study. Electronically signed by Walter Saels 02-08-2025 07:52 AM Abdomen/Pelvis CT 02/08/25 05:34 EXAM: CT abd pelvis IV con only CLINICAL HISTORY: sepsis, hypotension TECHNIQUE: Contiguous axial images were obtained from the level of the diaphragm to the pubic symphysis with intravenous contrast. Coronal and sagittal reconstructions were likewise performed and indicated to increase the sensitivity for detecting clinically relevant pathology. If IV contrast material had not been administered, the likelihood of detecting abnormalities relevant to the patient's condition would have been substantially decreased. CT scan was performed according to ALARA (as low as reasonable achievable). COMPARISON: 20:13:03 CORROSION CONTROL FITTER FINDINGS: Patchy consolidation with adjacent atelectasis is noted involving right basal segments. Few atelectatic bands are noted in the left posterior basal segment. The liver is normal in size and attenuation. No focal liver lesions are seen. There is no intra or extrahepatic biliary ductal dilatation. Hepatic vasculature is patent. The gallbladder is present. The spleen, pancreas, and adrenal glands are unremarkable. The kidneys are normal in size and attenuation. There is no hydronephrosis or perinephric fat stranding. No renal calculi or renal masses are identified. The ureters are normal in caliber and no ureteral calculi are seen. The bladder shows mild diffuse wall thickening - suggest possibility of cystitis- urine analysis correlation suggested Prostate appears enlarged in size measures about 54 x 42 mm. No focal or diffuse bowel wall thickening or evidence of bowel obstruction is identified. No inflamed appendix is visualized in the right lower quadrant. Abdominal and pelvic vasculature is patent. No adenopathy or fluid collections are seen. No aggressive appearing osseous lesions are identified. IMPRESSION: 1. Enlarged prostate-stable. 2. The bladder shows mild diffuse wall thickening - suggest possibility of cystitis- urine analysis correlation suggested -stable. 3. Patchy consolidation with adjacent atelectasis is noted involving right basal segments.-new finding. Electronically signed by Walter Seals 02-08-2025 07:42 AM Videofluoroscopic Swallow 02/08/25 14:00 FL video swallow CLINICAL HISTORY: r/o aspiration. TECHNIQUE: Video fluoroscopic evaluation of swallowing was performed in the AP and lateral projections by the speech pathology staff. The patient is fed nectar-thick and thin liquid barium, a barium coated wafer, and barium pudding. FLUOROSCOPY TIME: 1 minute 33 seconds. COMPARISON: None FINDINGS: There is no evidence of aspiration with any barium consistency. IMPRESSION: No aspiration seen. ACT 112: Negative or not required by law. Electronically signed by: Chepe Sandoval M.D. 02/08/2025 3:21 PM (1) Pneumonia Laterality: unspecified laterality Lung location: unspecified part of lung Pneumonia type: due to unspecified organism Qualified Code(s): J18.9 - Pneumonia, unspecified organism
[2025-02-10] MEDS: DOXYCYCLINE HYCLATE 100 MG CAP PO SCH (09:40)
[2025-02-11 06:16] LABS: Hematocrit (blood only) 35.6 % (42.0-52.0); Hemoglobin 12.0 g/dl (14.0-18.0); Mean Corpuscular Hemoglobin 31.5 pg (25.0-34.0); Mean Corpuscular Volume 93.4 fL (80.0-100.0); Platelet Count 154 K/uL (130-400); RDW Standard Deviation 49.1 fL (36.4-46.3); Red Blood Count 3.81 M/uL (4.70-6.10); White Blood Count 9.45 K/ul (4.8-10.8)
[2025-02-11 06:50] LABS: Alanine Aminotransferase 24.0 U/L (7-52); Albumin Globulin Ratio 1.3 (0.9-2); Alkaline Phosphatase 73.0 U/L (34-104); Anion Gap 6.0 (3-11); Bilirubin,Total 0.5 mg/dl (0.2-1.0); Blood Urea Nitrogen 24.0 mg/dl (6-23); Calcium 8.9 mg/dl (8.6-10.3); Carbon Dioxide 31.0 mmol/L (21-32); Chloride 104.0 mmol/L (98-107); Creatinine Clr Calc Pharmacy 75.7 ml/min; Globulin 2.7 gm/dl (2.5-4.0); Glucose 81.0 mg/dl (70-99(Fasting)); Potassium 3.5 mmol/L (3.5-5.1); Sodium 141.0 mmol/L (136-145); Total Protein 6.3 gm/dl (6.0-8.3)
[2025-02-11] MEDS: ONDANSETRON INJ 2 MG/ML 2 ML VIAL IV PRN (09:18)
--- NOTE | 2025-02-11 09:23 | Hospitalist Progress Note ---
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 Pt previously admitted under our service last month due to acute hypoxic respiratory failure and possible aspiration pneumonitis vs possible mucous plug. Pt was treated with IV ertapenem at that time after sputum culture grew Enterobacter cloacae complex. RLL PNA: Bio fire negative, MRSA negative, chest CTA with worsening consolidation S/p video swallow on 02/08 with no evidence of aspiration Continue pured diet, pulmonology following, continue IV ertapenem Repeat CT in 4-6 weeks and consider bronc if no improvement in opacity Recommending performance/Brovana on DC; continue with nebulizers leukocytosis slowly improving - now WNL Diarrhea: -3 episodes overnight; small amount of soft stool noted in BR this am, c diff ordered -Imodium x 1 for now, can consider stool studies, likely secondary to antibiotics. 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 I spent a total of 35 minutes coordinating, documenting, and providing care for this patient excluding time spent in the performance of separately billed services or time spent by another provider/QHP. This included personally reviewing all current laboratories and imaging studies, medical reconciliation, outpatient chart review and discussion with specialists. Admission and Anticipated Discharge Date Admission Date: February 08, 2025 Supervising Physician Co-Signing Physician Notes 79-year-old male complicated past medical history of tonsillar carcinoma status post chemotherapy with multiple surgery in the neck region presented to the ED with 1 day history of productive cough through trach site and fever. 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 Imaging s/o RLL pna. Also noted was patient with anaphylactic reaction after IV Zosyn in the ED, patient was hemodynamically stable sooner w/ Rx in ED. It is noted that patient has successfully used Zosyn in the past. Now it is in severe allergy list. C/w ertapenem for rll pna. Pulm agrees, recommends atypical coverage, doxy added 02/10. Has been stable post anaphylactic reaction rx. appreciate pulm recs. add probiotics On exam: Patient on room air, NAD, rll crackles. Rest of the examination as above. Total time spent independently: 17 minutes. I have seen and examined the patient and have discussed the case with the provider above. I agree with the assessment and plan as stated. Subjective Patient seen and examined. No apparent distress. Reports concerns with diarrhea overnight. Denies any abdominal pain/chest pain/shortness of breath. Review of Systems Review of Systems: All systems reviewed & are unremarkable except as noted in HPI & below Physical Exam Physical Exam: General: Elderly M, chronically ill-appearing/cachectic, MINTO, faint voice s/p surgery, sitting up in bed, A&Ox3, NAD, at bedside (helps w/ communication) HEENT: Normocephalic, atraumatic, external ear and nose normal, oropharynx dry, tracheostomy present (C/D, no drainage) Respiratory: Normal respiratory effort, trace rhonchi in RLL, no wheezing, saturating on RA Cardiovascular: RRR, no BLE edema, normal peripheral pulses Abdomen/GI: Active bowel sounds, soft, PEG tube present (C/D, no surrounding erythema/drainage), nontender to palpation in all quadrants Extremities/MSK: No cyanosis or clubbing, extremities motor strength intact, moves all extremities Neurologic: No overt focal deficits, CN's II-XI not formally tested but appear grossly intact bilaterally Results & Data Results & Data Vital Signs (Past 12 Hours) Vital Signs Temp Pulse Pulse Resp BP Pulse Ox O2 Del Method 02/11/25 07:33 36.6 C 63 20 126/73 99 Room Air 02/11/25 07:13 64 18 98 Room Air 02/11/25 03:59 36.7 C 51 L 18 144/69 H 99 Room Air 02/11/25 01:33 59 L 02/10/25 23:08 36.8 C 56 L 18 186/90 H 97 Room Air 02/10/25 22:28 Room Air Diagnostic Findings Laboratory Results WBC 9.45 K/ul (4.8-10.8) 02/11/25 05:59 RBC 3.81 M/uL (4.70-6.10) L 02/11/25 05:59 Hgb 12.0 g/dl (14.0-18.0) L 02/11/25 05:59 Hct 35.6 % (42.0-52.0) L 02/11/25 05:59 MCV 93.4 fL (80.0-100.0) 02/11/25 05:59 MCH 31.5 pg (25.0-34.0) 02/11/25 05:59 MCHC 33.7 g/dL (32.0-36.0) 02/11/25 05:59 RDW Std Deviation 49.1 fL (36.4-46.3) H 02/11/25 05:59 RDW Coeff of Judy 14.6 % (11.5-14.5) H 02/11/25 05:59 Plt Count 154 K/uL (130-400) 02/11/25 05:59 MPV 10.6 fL (9.4-12.4) 02/11/25 05:59 Immature Gran % (Auto) 1.2 % 02/10/25 05:48 Neut % (Auto) 85.9 % 02/10/25 05:48 Lymph % (Auto) 6.2 % 02/10/25 05:48 [place] % (Auto) 6.6 % 02/10/25 05:48 Eos % (Auto) 0.0 % 02/10/25 05:48 Baso % (Auto) 0.1 % 02/10/25 05:48 Neut # (Auto) 13.22 K/uL (1.40-6.50) H 02/10/25 05:48 Lymph # (Auto) 0.96 K/uL (1.20-3.40) L 02/10/25 05:48 [place] # (Auto) 1.01 K/uL (0.11-0.59) H 02/10/25 05:48 Eos # (Auto) 0.00 K/uL (0.00-0.50) 02/10/25 05:48 Baso # (Auto) 0.02 K/uL (0.00-0.20) 02/10/25 05:48 Immature Gran # (Auto) 0.18 K/uL (0.01-0.20) 02/10/25 05:48 PT 11.5 Seconds (9.0-12.0) 02/08/25 04:05 INR 1.1 (0.9-1.1) 02/08/25 04:05 VBG pH 7.51 (7.36-7.41) H 02/08/25 04:20 VBG pCO2 34 mmHg (38-50) L 02/08/25 04:20 VBG pO2 37 mmHg 02/08/25 04:20 VBG HCO3 27 mmol/L 02/08/25 04:20 VBG O2 Saturation 74.3 % 02/08/25 04:20 VBG Base Excess 4.3 mEq/L 02/08/25 04:20 Sodium 141 mmol/L (136-145) 02/11/25 05:59 Potassium 3.5 mmol/L (3.5-5.1) 02/11/25 05:59 Chloride 104 mmol/L (98-107) 02/11/25 05:59 Carbon Dioxide 31 mmol/L (21-32) 02/11/25 05:59 Anion Gap 6 (3-11) 02/11/25 05:59 BUN 24 mg/dl (6-23) H 02/11/25 05:59 Creatinine 0.87 mg/dl (0.6-1.4) 02/11/25 05:59 Est Cr Clr Drug Dosing 75.7 ml/min 02/11/25 05:59 eGFR 88.87 02/11/25 05:59 BUN/Creatinine Ratio 27.6 (10-20) H 02/11/25 05:59 Glucose 81 mg/dl (70-99(Fasting)) 02/11/25 05:59 POC Glucose 145 mg/dl (70-99) H 02/08/25 03:58 Lactate 1.8 mmol/L (0.4-2.0) 02/09/25 07:37 Calcium 8.9 mg/dl (8.6-10.3) 02/11/25 05:59 Phosphorus 2.3 mg/dl (2.5-4.9) L 02/10/25 05:48 Magnesium 2.3 mg/dl (1.7-2.4) 02/10/25 05:48 Total Bilirubin 0.5 mg/dl (0.2-1.0) 02/11/25 05:59 Direct Bilirubin 0.2 mg/dl (0-0.2) 02/08/25 04:05 AST 23 U/L (13-39) 02/11/25 05:59 ALT 24 U/L (7-52) 02/11/25 05:59 Alkaline Phosphatase 73 U/L (34-104) 02/11/25 05:59 Troponin I High Sens 10.8 pg/ml (0-20) 02/08/25 04:05 Total Protein 6.3 gm/dl (6.0-8.3) 02/11/25 05:59 Albumin 3.6 gm/dl (3.4-5.0) 02/11/25 05:59 Globulin 2.7 gm/dl (2.5-4.0) 02/11/25 05:59 Albumin/Globulin Ratio 1.3 (0.9-2) 02/11/25 05:59 Lipase 19 U/L (11-82) 02/08/25 04:05 Procalcitonin < 0.02 ng/ml (0-0.5) 02/08/25 04:05 Urine Color Yellow 02/08/25 06:44 Urine Appearance Clear (Clear) 02/08/25 06:44 Urine pH 7.5 (4.5-7.5) 02/08/25 06:44 Ur Specific [place] 1.011 (1.000-1.030) 02/08/25 06:44 Urine Protein Negative (Negative) 02/08/25 06:44 Urine Glucose (UA) Trace (Negative) H 02/08/25 06:44 Urine Ketones Trace (Negative) H 02/08/25 06:44 Urine Blood Negative (Negative) 02/08/25 06:44 Urine Nitrite Negative (Negative) 02/08/25 06:44 Urine Bilirubin Negative (Negative) 02/08/25 06:44 Urine Urobilinogen Negative (Negative) 02/08/25 06:44 Ur Leukocyte Esterase Negative (Negative) 02/08/25 06:44 Urine Comment 02/08/25 06:44 Nasal Screen MRSA (PCR) Negative (Negative) 02/08/25 04:09 Adenovirus (PCR) Not Detected (NotDetected) 02/08/25 04:09 B. pertussis DNA (PCR) Not Detected (NotDetected) 02/08/25 04:09 B.parapertussis DNA PCR Not Detected (NotDetected) 02/08/25 04:09 C. pneumoniae DNA (PCR) Not Detected (NotDetected) 02/08/25 04:09 Coronavirus OC43 (PCR) Not Detected (NotDetected) 02/08/25 04:09 Coronavirus HKU1 (PCR) Not Detected (NotDetected) 02/08/25 04:09 Coronavirus 229E (PCR) Not Detected (NotDetected) 02/08/25 04:09 SARS-CoV-2 (PCR) Not Detected (NotDetected) 02/08/25 04:09 Coronavirus NL63 (PCR) Not Detected (NotDetected) 02/08/25 04:09 Human Metapneumovir PCR Not Detected (NotDetected) 02/08/25 04:09 Influenza Type A (PCR) Not Detected (NotDetected) 02/08/25 04:09 Influenza Type B (PCR) Not Detected (NotDetected) 02/08/25 04:09 M. pneumoniae (PCR) Not Detected (NotDetected) 02/08/25 04:09 Parainfluenza 1 (PCR) Not Detected (NotDetected) 02/08/25 04:09 Parainfluenza 2 (PCR) Not Detected (NotDetected) 02/08/25 04:09 Parainfluenza 3 (PCR) Not Detected (NotDetected) 02/08/25 04:09 Parainfluenza 4 (PCR) Not Detected (NotDetected) 02/08/25 04:09 RSV (PCR) Not Detected (NotDetected) 02/08/25 04:09 Entero/Rhino (PCR) Not Detected (NotDetected) 02/08/25 04:09 Impressions Chest X-Ray 02/08/25 03:53 EXAM: XR chest 1V portable CLINICAL HISTORY: Sepsis TECHNIQUE: Radiograph of chest was acquired. COMPARISON: CR dated 12/26/2024 02:10:00 PLUMBING DESIGNER. FINDINGS: The lungs are clear and well-expanded with no pulmonary infiltrate or pleural effusion. The cardiomediastinal silhouette is within normal limits. No acute osseous abnormality. IMPRESSION: 1. No acute cardiopulmonary disease. Electronically signed by Walter Seals 02-08-2025 05:52 AM Chest CTA 02/08/25 05:33 EXAM: CT angio chest PE protocol CLINICAL HISTORY: hypoxia, cp, r/o PE TECHNIQUE: Contiguous axial images were obtained from the neck base through the upper abdomen following intravenous administration of iodinated contrast material. Angiographic images were processed, 3D MIP images were acquired for interpretation. If IV contrast material had not been administered, the likelihood of detecting abnormalities relevant to the patient's condition would have been substantially decreased. Coronal and sagittal 3-D MIPs were likewise performed and indicated to increase the sensitivity of detectin diffuse clinically relevant pathology. CT scan was performed according to ALARA (as low as reasonable achievable). COMPARISON: None. FINDINGS: Patchy nodular consolidation is noted involving posterior basal segment of right lower lobe. Few atelectatic bands are noted involving bilateral based posterior basal segments. Small calcified granuloma is noted involving right lower lobe Adequate contrast bolus without evidence of pulmonary embolism. The central airways are patent. Rest of lungs are clear. No pleural effusion. The heart, aorta, and pulmonary arteries are of normal size and configuration. There are no appreciable coronary artery and aortic atherosclerotic calcifications. No pericardial effusion is identified. The thyroid is unremarkable. No mediastinal, hilar, or axillary lymphadenopathy is noted. No suspicious lytic or sclerotic osseous lesions are identified. IMPRESSION: No evidence of pulmonary embolism Patchy nodular consolidation is noted involving posterior basal segment of right lower lobe. -increased Few atelectatic bands are noted involving bilateral based posterior basal segments.-stable. Small calcified granuloma is noted involving right lower lobe-stable. Electronically signed by Walter Seals 02-08-2025 07:[address] 02/08/25 05:33 EXAM: CT head/brain wo con CLINICAL HISTORY: headache TECHNIQUE: Multiple axial images are obtained from the skull base to the vertex without contrast. CT scan was performed according to ALARA (as low as reasonable achievable). COMPARISON: Feb 14:13:41 PLUMBING DESIGNER FINDINGS: Metallic artifact adjacent to the left parietal region limits its evaluation. There is cerebral atrophy. No evidence of space occupying lesion, hemorrhage, edema, mass effect, midline shift, extra axial collection, or hydrocephalus is noted. Basal cisterns are symmetric and normal in size and configuration. There are scattered periventricular hypodensities as can be seen with chronic microvascular ischemic changes. The ferguson-white matter differentiation is preserved. Visualized paranasal sinuses and right mastoid air cells are well aerated. Orbital contents are within normal limits. Opacification of left mastoid air cells with bny defect- postoperative changes along lateral wall of left mastoid bone. Rest of the bony structures are intact. IMPRESSION: 1. No evidence of acute intracranial abnormality is demonstrated. 2. Chronic microvascular ischemic changes.-stable. 3. Cerebral atrophy.-stable. No other new interval abnormality since prior study. Electronically signed by Walter Seals 02-08-2025 07:52 AM Abdomen/Pelvis CT 02/08/25 05:34 EXAM: CT abd pelvis IV con only CLINICAL HISTORY: sepsis, hypotension TECHNIQUE: Contiguous axial images were obtained from the level of the diaphragm to the pubic symphysis with intravenous contrast. Coronal and sagittal reconstructions were likewise performed and indicated to increase the sensitivity for detecting clinically relevant pathology. If IV contrast material had not been administered, the likelihood of detecting abnormalities relevant to the patient's condition would have been substantially decreased. CT scan was performed according to ALARA (as low as reasonable achievable). COMPARISON: 20:13:03 PLUMBING DESIGNER FINDINGS: Patchy consolidation with adjacent atelectasis is noted involving right basal segments. Few atelectatic bands are noted in the left posterior basal segment. The liver is normal in size and attenuation. No focal liver lesions are seen. There is no intra or extrahepatic biliary ductal dilatation. Hepatic vasculature is patent. The gallbladder is present. The spleen, pancreas, and adrenal glands are unremarkable. The kidneys are normal in size and attenuation. There is no hydronephrosis or perinephric fat stranding. No renal calculi or renal masses are identified. The ureters are normal in caliber and no ureteral calculi are seen. The bladder shows mild diffuse wall thickening - suggest possibility of cystitis- urine analysis correlation suggested Prostate appears enlarged in size measures about 54 x 42 mm. No focal or diffuse bowel wall thickening or evidence of bowel obstruction is identified. No inflamed appendix is visualized in the right lower quadrant. Abdominal and pelvic vasculature is patent. No adenopathy or fluid collections are seen. No aggressive appearing osseous lesions are identified. IMPRESSION: 1. Enlarged prostate-stable. 2. The bladder shows mild diffuse wall thickening - suggest possibility of cystitis- urine analysis correlation suggested -stable. 3. Patchy consolidation with adjacent atelectasis is noted involving right basal segments.-new finding. Electronically signed by Walter Seals 02-08-2025 07:42 AM Videofluoroscopic Swallow 02/08/25 14:00 FL video swallow CLINICAL HISTORY: r/o aspiration. TECHNIQUE: Video fluoroscopic evaluation of swallowing was performed in the AP and lateral projections by the speech pathology staff. The patient is fed nectar-thick and thin liquid barium, a barium coated wafer, and barium pudding. FLUOROSCOPY TIME: 1 minute 33 seconds. COMPARISON: None FINDINGS: There is no evidence of aspiration with any barium consistency. IMPRESSION: No aspiration seen. ACT 112: Negative or not required by law. Electronically signed by: Chepe Sandoval M.D. 02/08/2025 3:21 PM (1) Pneumonia Laterality: unspecified laterality Lung location: unspecified part of lung Pneumonia type: due to unspecified organism Qualified Code(s): J18.9 - Pneumonia, unspecified organism
[2025-02-11] MEDS: LOPERAMIDE HCL 2 MG CAP PO STA (10:42)
[2025-02-11] MEDS: ADVANCED PROBIOTIC 625 MG CAPSULE PO SCH (16:28)
[2025-02-12 07:27] VITALS: RESP 18; O2SAT 97
[2025-02-12 09:15] LABS: Hematocrit (blood only) 35.0 % (42.0-52.0); Hemoglobin 11.8 g/dl (14.0-18.0); Immature Granulocytes # (auto) 0.08 K/uL (0.01-0.20); Immature Granulocytes % (auto) 1.3 %; Mean Corpuscular Hemoglobin 32.5 pg (25.0-34.0); Mean Corpuscular Volume 96.4 fL (80.0-100.0); Platelet Count 166 K/uL (130-400); RDW Standard Deviation 51.7 fL (36.4-46.3); Red Blood Count 3.63 M/uL (4.70-6.10); White Blood Count 5.93 K/ul (4.8-10.8)
[2025-02-12 09:39] LABS: Alanine Aminotransferase 18.0 U/L (7-52); Albumin Globulin Ratio 1.4 (0.9-2); Alkaline Phosphatase 71.0 U/L (34-104); Anion Gap 5.0 (3-11); Bilirubin,Total 0.5 mg/dl (0.2-1.0); Blood Urea Nitrogen 27.0 mg/dl (6-23); Calcium 8.4 mg/dl (8.6-10.3); Carbon Dioxide 31.0 mmol/L (21-32); Chloride 104.0 mmol/L (98-107); Creatinine Clr Calc Pharmacy 67.2 ml/min; Globulin 2.5 gm/dl (2.5-4.0); Glucose 121.0 mg/dl (70-99(Fasting)); Potassium 3.3 mmol/L (3.5-5.1); Sodium 140.0 mmol/L (136-145); Total Protein 5.9 gm/dl (6.0-8.3)
[2025-02-12 11:31] VITALS: BP 116/71; TEMP 97.9
[2025-02-12] MEDS: POTASSIUM CHLORIDE CRTAB 20 MEQ TABCR PO STA (12:34)
[2025-02-12 12:58] VITALS: PULSE 65
--- NOTE | 2025-02-12 15:03 | Discharge Summary ---
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, history of hygienic total laryngectomy with left ALT free flap reconstruction and primary TEP placement in June 2024 for recurrent aspiration PNA, malnutrition of moderate degree and gastroparesis s/p PEG tube placement, GERD with esophagitis, esophageal stenosis, HLD, acquired hypothyroidism, 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 RLL PNA History of aspiration pneumonia Bio fire negative, MRSA negative, procalcitonin negative Chest CTA with worsening patchy opacity in RLL compared to previous scan in December S/p video swallow on 02/08 with no evidence of aspiration Pulmonology consulted and recommended 10 total days of IV ertapenem and 5 days of PO doxycycline for atypical coverage Also recommended CT scan of chest in 4-6 weeks and if patient still have persistent opacities in the lower lobe then bronch with biopsy could be considered Patient discharged to home and arranged for MTU at [facility] for daily IV ertapenem x6 more days COPD Likely not exacerbation with negative trach culture Pulmonology recommended nebulized bronchodilators instead of Stiolto inhaler Scripts sent for nebulized formoterol bid, Yupelri daily, and refill of 7% sodiu m chloride bid Form filled out for chest vest but unsure if insurance will approve this Instructions provided to patient's for administration of respiratory treatments Hypokalemia Hypophosphatemia Patient with potassium 3.4 on admission (3.3 day of discharge prior to repletion) and phosphorus 1.6 on admission (3.6 day of discharge) Discharged on Phospha Neutral qid Anaphylaxis following IV Zosyn administration in the ED S/p acute respiratory distress, hypotension, bradycardia Improved with epi/Benadryl/Solu-Medrol/Pepcid IV Solu-Medrol discontinued on 02/09 History of 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 Please see addendum. Notes For Next Care Provider 79 year old male with complex PMH who was admitted to [facility] from 02/08-02/12/2025 for a RLL pneumonia. Treated with 10 total days of IV antibiotics and 5 total days of oral antibiotics. Pulmonology was consulted and provided recommendations as detailed above. 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, history of hygienic total laryngectomy with left ALT free flap reconstruction and primary TEP placement in June 2024 for recurrent aspiration PNA, malnutrition of moderate degree and gastroparesis s/p PEG tube placement, GERD with esophagitis, esophageal stenosis, HLD, acquired hypothyroidism, 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 History primarily obtained from the patient's as patient is hard of hearing and has difficulty with verbal communication due to history of tonsillar carcinoma. Patient is, however, A&Ox3 and communicates well with nodding to supplement his difficulty with verbal communication. Patient with productive cough of cloudy, white sputum since yesterday morning which his describes as thick and difficult to suction. No reported breathing difficulty. No recorded fevers however patient's temperature was mildly elevated to 99.9F last evening. Denies any chest pain, abdominal pain, bowel habit changes or urinary habit changes. Patient tolerates a pured diet at home. 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 Patient previously admitted under our service last month due to acute hypoxic respiratory failure and possible aspiration pneumonitis vs possible mucous plug. Patient was treated with IV ertapenem at that time after sputum culture grew Enterobacter cloacae complex. Admission Exam Per Admitting Provider General: Elderly M, chronically ill-appearing/cachectic, NENANA, faint voice s/p surgery, A&Ox3, NAD, at bedside HEENT: Normocephalic, atraumatic, external ear and nose normal, oropharynx dry, tracheostomy present Respiratory: Normal respiratory effort, rhonchi in RLL, minimal wheezing throughout Cardiovascular: RRR, no BLE edema, normal peripheral pulses Abdomen/GI: Active bowel sounds, soft, PEG tube present (C/D, no surrounding erythema), nontender to palpation in all quadrants Extremities/MSK: No cyanosis or clubbing, extremities motor strength intact, moves all extremities Neurologic: No overt focal deficits, CN's II-XI not formally tested but appear grossly intact bilaterally Discharge Exam General/Psych: ill appearing, frail, laying in bed, NAD, unable to speak d/t trach but communicates via writing Head: normocephalic, atraumatic Eyes: normal inspection, PERRL, conjunctivae pink ENT: external ear and nose normal, oropharynx normal Neck: normal visual inspection, trachea midline Respiratory: normal respiratory effort, lungs clear to auscultation, no wheeze/rales/rhonchi, no accessory muscle use Cardiovascular: regular rate and rhythm, no murmur/rub/gallop, no JVD Extremities: no cyanosis or clubbing, normal peripheral pulses, no BLE edema Abdomen/GI: normal bowel sounds, soft, nontender Neurologic/MSK: A+Ox3, motor strength 5/5, moves all extremities Skin: no rashes, normal color, warm and dry Updated Medication List Medication Instructions Recorded Confirmed Type citalopram 20 mg tablet 20 mg feeding tube QAM 05/07/18 02/08/25 History latanoprost 0.005 % eye drops 1 drp OPB HS 01/30/19 02/08/25 History acetaminophen 500 mg tablet 1,000 mg feeding tube Q6H PRN Pain 03/06/21 02/08/25 History (Tylenol Extra Strength) atorvastatin 40 mg tablet 40 mg feeding tube QAM 06/02/21 02/08/25 History midodrine 10 mg tablet 10 mg feeding tube TIDM 09/13/24 02/08/25 History albuterol sulfate 2.5 mg/3 mL 2.5 mg inhalation DIRECTED PRN 12/26/24 02/08/25 History (0.083 %) solution for nebulization Shortness Of Breath Or Wheezing aspirin 81 mg tablet,delayed 81 mg feeding tube DAILY 12/26/24 02/08/25 History release bacitracin zinc 500 unit/gram 1 applic topical BID PRN APPLY TO 12/26/24 02/08/25 History topical ointment NECK NEEDED calcium carbonate (Tums E-X) 600 mg feeding tube BID 12/26/24 02/08/25 History clonidine HCl 0.1 mg tablet 0.1 mg feeding tube TID 12/26/24 02/08/25 History cyanocobalamin (vitamin B-12) 1,000 mcg feeding tube DAILY 12/26/24 02/08/25 History 1,000 mcg tablet (Vitamin B-12) acetylcysteine 200 mg/mL (20 %) 5 ml inhalation BID #90 mL 12/29/24 02/08/25 Rx solution ipratropium 0.5 mg-albuterol 3 mg 3 ml NEB BIDR #180 mL 12/29/24 02/08/25 Rx (2.5 mg base)/3 mL nebulization soln L.acidop,casei,lactis,rham-B.lact,dick 1 cap PO DAILY #14 caps 02/12/25 Rx 625 mg (10 billion cell) capsule (Advanced Probiotic) doxycycline hyclate 100 mg capsule 100 mg PO BID #5 caps 02/12/25 Rx formoterol fumarate 20 mcg/2 mL 20 mcg (2 mL) inhalation BIDR #120 02/12/25 Rx solution for nebulization mL (Perforomist) revefenacin 175 mcg/3 mL solution 175 mcg (3 mL) inhalation DAILY 02/12/25 Rx for nebulization (Yupelri) #90 mL sodium chloride 7 % for 4 ml inhalation .BIDR #240 mL 02/12/25 Rx nebulization sodium di- and 1 tab PO QID #120 tabs 02/12/25 Rx monophosphate-potassium phos monobasic 250 mg tablet (Phospha Neutral) Hospital Stay Data Consultations 02/08/25 07:39 ED Decision to Admit Stat 02/08/25 08:08 Consult Pulmonology Routine Diagnostic Imagining Performed Chest X-Ray 02/08/25 03:53 EXAM: XR chest 1V portable CLINICAL HISTORY: Sepsis TECHNIQUE: Radiograph of chest was acquired. 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 FINDINGS: The lungs are clear and well-expanded with no pulmonary infiltrate or pleural effusion. The cardiomediastinal silhouette is within normal limits. No acute osseous abnormality. IMPRESSION: 1. No acute cardiopulmonary disease. Electronically signed by Walter Seals 02-08-2025 05:52 AM Chest CTA 02/08/25 05:33 EXAM: CT angio chest PE protocol CLINICAL HISTORY: hypoxia, cp, r/o PE TECHNIQUE: Contiguous axial images were obtained from the neck base through the upper abdomen following intravenous administration of iodinated contrast material. Angiographic images were processed, 3D MIP images were acquired for interpretation. If IV contrast material had not been administered, the likelihood of detecting abnormalities relevant to the patient's condition would have been substantially decreased. Coronal and sagittal 3-D MIPs were likewise performed and indicated to increase the sensitivity of detectin diffuse clinically relevant pathology. CT scan was performed according to ALARA (as low as reasonable achievable). COMPARISON: None. FINDINGS: Patchy nodular consolidation is noted involving posterior basal segment of right lower lobe. Few atelectatic bands are noted involving bilateral based posterior basal segments. Small calcified granuloma is noted involving right lower lobe Adequate contrast bolus without evidence of pulmonary embolism. The central airways are patent. Rest of lungs are clear. No pleural effusion. The heart, aorta, and pulmonary arteries are of normal size and configuration. There are no appreciable coronary artery and aortic atherosclerotic calcifications. No pericardial effusion is identified. The thyroid is unremarkable. No mediastinal, hilar, or axillary lymphadenopathy is noted. No suspicious lytic or sclerotic osseous lesions are identified. IMPRESSION: No evidence of pulmonary embolism Patchy nodular consolidation is noted involving posterior basal segment of right lower lobe. -increased Few atelectatic bands are noted involving bilateral based posterior basal segments.-stable. Small calcified granuloma is noted involving right lower lobe-stable. Electronically signed by Walter Seals 02-08-2025 07:[address] 02/08/25 05:33 EXAM: CT head/brain wo con CLINICAL HISTORY: headache TECHNIQUE: Multiple axial images are obtained from the skull base to the vertex without contrast. CT scan was performed according to ALARA (as low as reasonable achievable). 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 There is cerebral atrophy. No evidence of space occupying lesion, hemorrhage, edema, mass effect, midline shift, extra axial collection, or hydrocephalus is noted. Basal cisterns are symmetric and normal in size and configuration. There are scattered periventricular hypodensities as can be seen with chronic microvascular ischemic changes. The ferguson-white matter differentiation is preserved. Visualized paranasal sinuses and right mastoid air cells are well aerated. Orbital contents are within normal limits. Opacification of left mastoid air cells with bny defect- postoperative changes along lateral wall of left mastoid bone. Rest of the bony structures are intact. IMPRESSION: 1. No evidence of acute intracranial abnormality is demonstrated. 2. Chronic microvascular ischemic changes.-stable. 3. Cerebral atrophy.-stable. No other new interval abnormality since prior study. Electronically signed by Walter Seals 02-08-2025 07:52 AM Abdomen/Pelvis CT 02/08/25 05:34 EXAM: CT abd pelvis IV con only CLINICAL HISTORY: sepsis, hypotension TECHNIQUE: Contiguous axial images were obtained from the level of the diaphragm to the pubic symphysis with intravenous contrast. Coronal and sagittal reconstructions were likewise performed and indicated to increase the sensitivity for detecting clinically relevant pathology. If IV contrast material had not been administered, the likelihood of detecting abnormalities relevant to the patient's condition would have been substantially decreased. CT scan was performed according to ALARA (as low as reasonable achievable). 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 Few atelectatic bands are noted in the left posterior basal segment. The liver is normal in size and attenuation. No focal liver lesions are seen. There is no intra or extrahepatic biliary ductal dilatation. Hepatic vasculature is patent. The gallbladder is present. The spleen, pancreas, and adrenal glands are unremarkable. The kidneys are normal in size and attenuation. There is no hydronephrosis or perinephric fat stranding. No renal calculi or renal masses are identified. The ureters are normal in caliber and no ureteral calculi are seen. The bladder shows mild diffuse wall thickening - suggest possibility of cystitis- urine analysis correlation suggested Prostate appears enlarged in size measures about 54 x 42 mm. No focal or diffuse bowel wall thickening or evidence of bowel obstruction is identified. No inflamed appendix is visualized in the right lower quadrant. Abdominal and pelvic vasculature is patent. No adenopathy or fluid collections are seen. No aggressive appearing osseous lesions are identified. IMPRESSION: 1. Enlarged prostate-stable. 2. The bladder shows mild diffuse wall thickening - suggest possibility of cystitis- urine analysis correlation suggested -stable. 3. Patchy consolidation with adjacent atelectasis is noted involving right basal segments.-new finding. Electronically signed by Walter Seals 02-08-2025 07:42 AM Videofluoroscopic Swallow 02/08/25 14:00 FL video swallow CLINICAL HISTORY: r/o aspiration. TECHNIQUE: Video fluoroscopic evaluation of swallowing was performed in the AP and lateral projections by the speech pathology staff. The patient is fed nectar-thick and thin liquid barium, a barium coated wafer, and barium pudding. FLUOROSCOPY TIME: 1 minute 33 seconds. COMPARISON: None FINDINGS: There is no evidence of aspiration with any barium consistency. IMPRESSION: No aspiration seen. ACT 112: Negative or not required by law. Electronically signed by: Chepe Sandoval M.D. 02/08/2025 3:21 PM Pending Results Patient Have Any Pending Studies at Discharge: Yes Discharge Instructions Given to Patient (Per Discharging Provider) You presented to the hospital with cough and fever and were found to have a right sided pneumonia. You underwent a swallow study that was negative for aspiration. We consulted with Pulmonology who recommended that you complete 10 days of IV and 5 days of oral antibiotics. You will need to go to the Medication Transfusion Unit every morning for administration of IV Ertapenem for the next 6 days (until Wednesday). You will also need to take doxycycline. Pulmonology also recommended that you switch to nebulized respiratory treatments instead of inhalers. You will be receiving two nebulized medications in place of your Stiolto inhaler. A script was also filled out for a chest vest at home to help with clearance of respiratory secretions - this will need to be approved by insurance. Please see the instructions below for respiratory treatments. Your blood pressure was on the lower side in the hospital. Please hold your clonidine until you follow up with your PCP. Your potassium and phosphorus levels were both low in the hospital. We started you on a supplement for this. We recommend you follow up with your PCP and have them check labs. MEDICATION CHANGES: Stop Stiolto inhaler Start formoterol (Perforomist) 2mL nebulized solution twice daily Start revefenacin (Yupelri) 3mL nebulized solution once daily *Instructions for respiratory treatments: administer Perforomist and Yupelri first to relax and open the airways, then administer sodium chloride to help break up the secretions, then perform suctioning - if you are approved for a vest treatment, this can be done before or during sodium chloride administration to also help break up secretions* Doxycycline 100mg by mouth twice daily starting tonight until 02/14/2025 (stop after evening dose) - recommend taking with food and be careful to avoid sunlight IV ertapenem once daily at the Medication Transfusion Unit Hold clonidine until you see your PCP Start potassium phosphate one tablet by mouth four times per day - please administer at least 2-3 hours apart from Tums to ensure proper absorption SUMMARY OF TEST RESULTS: Chest CT scan showed a consolidation in the right lower lobe Swallow study showed no aspiration Trach culture negative Head CT scan showed no acute abnormalities Abdomen CT scan showed an enlarged prostate PENDING TEST RESULTS: Blood cultures preliminary no growth after 48 hours RECOMMENDATIONS FOR FOLLOW-UP: Please follow up with your PCP as scheduled on 02/15/2025 at 3:00pm and discuss your hospitalization and medication changes - recommend having your labs checked to make sure your potassium and phosphorus levels are normal on the new supplement OTHER INSTRUCTIONS: Seek medical attention if you have: * temperature above 101 * chest pain or trouble breathing * abdominal pain, nausea, vomiting * diarrhea, dark stools or bloody stools * any unanswered questions or concerns Call 911 if symptoms are severe. It has been a pleasure taking care of you. Please take care of yourself. If you have any questions regarding your recent hospitalization please contact [facility] and request Morro Atkins @ [phone]. Total Time Total Time Spent Total Time Spent (In Minutes): I spent a total of 35 minutes coordinating, documenting and providing care for this patient excluding time spent in the performance of separately billed services or time spent by another provider/QHP. Supervising Physician Co-Signing Physician Notes 79-year-old male complicated past medical history of tonsillar carcinoma status post chemotherapy with multiple surgery in the neck region presented to the ED with 1 day history of productive cough through trach site and fever. 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 Imaging s/o RLL pna. Also noted was patient with anaphylactic reaction after IV Zosyn in the ED, patient was hemodynamically stable sooner w/ Rx in ED. It is noted that patient has successfully used Zosyn in the past. Now it is in severe allergy list. C/w ertapenem for rll pna. Pulm agrees and recommends for total 10 d Rx, recommends atypical coverage, doxy added 02/10. Has been stable post anaphylactic reaction rx. appreciate pulm recs. c/w guillaume Saenz (pt's ) was advised to have him get CT chest in 4-6 weeks to f/u on resolution of the pneumonia and if not improving she is aware he might need bronchoscopy and biopsy. She has voiced understanding on this. On exam: Patient on room air, NAD, rll crackles. Rest of the examination as a leonardo. Total time spent independently: 20 minutes. I have seen and examined the patient and have discussed the case with the provider above. I agree with the assessment and plan as stated.
--- NOTE | 2025-02-13 05:53 | Electrocardiogram Report ---
Test Reason : Blood Pressure : */* mmHG Vent. Rate : 60 BPM Atrial Rate : 60 BPM P-R Int : 112 ms QRS Dur : 82 ms QT Int : 452 ms P-R-T Axes : 1 -26 23 degrees QTcB Int : 452 ms Normal sinus rhythm Minimal voltage criteria for LVH, may be normal variant ( R in aVL ) Borderline ECG When compared with ECG of 08-Feb-2025 04:21, No significant change was found Confirmed by Ian Álvarez ([id number]) on 02/13/2025 5:53:12 AM Referred By: REFERRED SELF Confirmed By: Ian Álvarez
== END 2025-02-12 14:15 | disposition home or self-care (01) | DRG 194 ==
LOC: ED 03:39 → 2S 08:08